=== PATIENT | female | born 1970 | race Caucasian/White ===

== ENCOUNTER 2016-08-22 03:18 | Emergency (ER) | payer OTHER ==
[2016-08-22 03:25] VITALS: TEMP 98
--- NOTE | 2016-08-22 04:15 | ED ---
Fall HPI - General Source: patient, RN notes reviewed Mode of arrival: EMS <Radha Yeh - Last Filed: 08/22/16 04:48> <Baldev De La Cruz - Last Filed: 08/22/16 05:46> - General Chief Complaint: Fall Stated Complaint: Fall Time Seen by Provider: 08/22/16 03:27 - History of Present Illness Initial Comments: Patient is a 46-year-old female presents emergency room for evaluation of fall injury. Patient states earlier this evening she was taking her dog out and the top of her sock on her right foot got caught against the ground and she fell forward landing on her entire right side. Patient states she has bruising and abrasion over the top of her right foot, second digit of her right foot, right knee, right hip, right side of her ribs, right hand, wrist, forearm and shoulder. Patient states that she did hit the front of her head. Patient states that she did black out and is not sure how long she was unconscious for. Patient states after the incident she felt very nauseous and did not "feel normal". Patient states she's having neck pain. Patient does admit that she has a history of chronic back pain but it's worse after the fall. Patient denies numbness or tingling in her fingers or toes. Patient states she has abrasion over the right side of forehead. Patient denies any changes in vision. Patient states she has a whistling sensation in both of her ears. Patient denies decreased hearing. Patient denies chest pain or shortness of breath. Patient denies abdominal pain. (Radha Yeh) - Related Data Home Medications Medication Instructions Recorded Confirmed SUMAtriptan SUCCINATE [Imitrex] 100 mg PO BID PRN 04/28/14 07/19/16 Temazepam [Restoril] 30 mg PO HS PRN 05/12/15 07/19/16 buPROPion HCL [Wellbutrin XL] 300 mg PO DAILY 05/12/15 07/19/16 Docusate [Colace] 100 mg PO HS 12/29/15 07/19/16 Cetirizine HCl [Zyrtec] 10 mg PO HS 05/23/16 07/19/16 Dicyclomine HCl [Bentyl] 20 mg PO QID 05/23/16 07/19/16 Gabapentin [Neurontin] 600 mg PO TID 05/23/16 07/19/16 LORazepam [Ativan] 0.5 mg PO TID PRN 05/23/16 07/19/16 Methocarbamol [Robaxin-750] 375 - 750 mg PO Q6H PRN 05/23/16 07/19/16 Omeprazole [PriLOSEC] 20 mg PO AC-BRKFST 05/23/16 07/19/16 Ondansetron Odt [Zofran ODT] 4 mg PO Q4H PRN 05/23/16 07/19/16 Promethazine [Phenergan] 25 mg PO Q6HR PRN 05/23/16 07/19/16 Acetaminophen Tab [Tylenol Tab] 1,000 mg PO Q6HR PRN 07/19/16 07/19/16 Diazepam [Valium] 5 mg PO HS PRN 07/19/16 07/19/16 Ibuprofen [Motrin] 600 mg PO Q6HR PRN 07/19/16 07/19/16 Ketorolac [Toradol] 10 mg PO DAILY PRN 07/19/16 07/19/16 metFORMIN HCL [Glucophage] 250 mg PO HS 07/19/16 07/19/16 traMADol HCl [Ultram] 50 mg PO Q6H PRN 07/19/16 07/19/16 Previous Rx's Medication Instructions Recorded Hydrocodone/Acetaminophen [[place] 1 tab PO Q8H PRN #40 tablet 05/26/16 5-325] Azithromycin [Zithromax Z-pack] 250 mg PO DIRECTED #6 tab 07/19/16 Fluticasone Nasal Page [Flonase 2 spr EA NOSTRIL DAILY PRN #1 07/19/16 Nasal Page] bottle guaiFENesin [Mucinex] 1,200 mg PO BID PRN #12 tab.er.12h 07/19/16 Allergies Allergy/AdvReac Type Severity Reaction Status Date / Time hydrocodone bitartrate Allergy Intermediate Itching Verified 08/22/16 03:26 [From Lortab] apricot Allergy Unknown Verified 08/22/16 03:26 barium sulfate Allergy Anaphylaxis Verified 08/22/16 03:26 [From Readi-Cat] codeine Allergy Anaphylaxis Verified 08/22/16 03:26 Iodinated Contrast Media - Allergy Anaphylaxis Verified 08/22/16 03:26 Oral and iodine Allergy Rash/Hives Verified 08/22/16 03:26 peach Allergy Unknown Verified 08/22/16 03:26 peanut oil Allergy Unknown Verified 08/22/16 03:26 sucralfate [From Carafate] Allergy Swelling Verified 08/22/16 03:26 Sulfa (Sulfonamide Allergy Anaphylaxis Verified 08/22/16 03:26 Antibiotics) tree nut [Nut] Allergy Unknown Verified 08/22/16 03:26 Review of Systems ROS Other: All systems not noted in ROS Statement are negative. <Radha Yeh - Last Filed: 08/22/16 04:48> ROS Other: All systems not noted in ROS Statement are negative. <Baldev De La Cruz - Last Filed: 08/22/16 05:46> ROS Statement: Those systems with pertinent positive or pertinent negative responses have been documented in the HPI. (Radha Yeh) (Baldev De La Cruz) Past Medical History Past Medical History: Asthma, Diabetes Mellitus, GERD/Reflux, Hyperlipidemia, Hypertension, Pneumonia Additional Past Medical History / Comment(s): Other HX: NIDDM, diabetic neuropathy bilateral feet, migraines, cervicla disc disease, bilateral tinnitis , arthiritis bilateral shoulders, possible fibromyalgia-pt in process of being diagnosed, gout in feet but no longer an issue, seasonal allergies, IBS, R arm fx yrs ago, R ovarian cyst, hiatal hernia, UTIs, urinary calculus, pancreatitis x 2, stomach ulcer. History of Any Multi-Drug Resistant Organisms: None Reported Date of last positivie culture/infection: 2012 MDRO Source:: stool Past Surgical History: Appendectomy, Bariatric Surgery, Cholecystectomy, Tonsillectomy Additional Past Surgical History / Comment(s): 2011 felix-en-Y, fistula repair 2012.2012 gastric bypass revision, bowel resection, lap gastrojejunostomy anastamosis revision, EGD and colonoscopy, cone bx-cervical cancer remove with cryo, L fallopian tube removed due to cyst, picc line in and out, Past Anesthesia/Blood Transfusion Reactions: Motion Sickness, Postoperative Nausea & Vomiting (PONV) Additional Past Anesthesia/Blood Transfusion Reaction / Comment(s): Pt states she has never recieved blood. Past Psychological History: Anxiety, Depression Additional Psychological History / Comment(s): Pt lives with her significant other-common law . She is normally independent. She drives. Smoking Status: Never smoker Past Alcohol Use History: None Reported Past Drug Use History: None Reported Additional Drug Use History / Comment(s): Pt has a medical marijuana card and tried using it for pain controll but it makes her nauseated so she does not use marijuana at all. - Past Family History Father Family Medical History: Cancer Additional Family Medical History / Comment(s): Father had colon and lung cancer and at age 73yrs. Mother Family Medical History: Coronary Artery Disease (CAD), Diabetes Mellitus, Hypertension Additional Family Medical History / Comment(s): Mother is alive and 73 yrs old. <RaoDaysiRadha L - Last Filed: 08/22/16 04:48> General Exam Limitations: no limitations General appearance: alert Expanded Head exam: Present: abrasion (Vetica abrasion over the right side of forehead that goes into the hairline) Eye exam: Present: normal appearance, PERRL, EOMI Pupils: Present: normal accommodation Neck exam: Present: normal inspection, tenderness (Bilateral paraspinal muscles and over the cervical vertebrae) Respiratory exam: Present: normal lung sounds bilaterally, chest wall tenderness (Tenderness of the lateral/anterior ribs on the right side of the chest). Absent: respiratory distress Cardiovascular Exam: Present: regular rate, normal rhythm, normal heart sounds GI/Abdominal exam: Present: soft, normal bowel sounds. Absent: distended, tenderness, guarding, rebound, rigid Right Shoulder Exam: Present: tenderness (anterior shoulder), ecchymosis, tenderness over AC joint Upper Arm exam: Present: normal inspection. Absent: tenderness Elbow exam: Present: normal inspection, full ROM, tenderness Forearm Wrist exam: Present: tenderness, abrasion (Abrasion over the forearm) Hand Wrist exam: Present: swelling (Fourth and fifth digits and MCP joints), ecchymosis (Fourth of fifth digit and MCP joints). Absent: normal inspection Vascular: Present: normal capillary refill (Capillary refill less than 2 seconds ), radial pulse (2+), ulnar pulse (2+) Right Hip exam: Present: tenderness (anterior lateral portion of the hip). Absent: full ROM (Pain on rotating hit from [id number]) Knee exam: Present: tenderness (Patella), swelling (Patella), ecchymosis ( Patella). Absent: normal inspection Lower Leg exam: Present: normal inspection, full ROM. Absent: tenderness Ankle exam: Present: normal inspection, full ROM. Absent: tenderness Foot/Toe exam: Present: ecchymosis (Second digit and dorsal foot). Absent: normal inspection Neurovascular tendon exam: Present: no vascular compromise. Absent: pulse deficit (2+ dorsal pedal and posterior tibial pulses), abnormal cap refill ( Capillary refill less than 2 seconds) Back exam: Present: normal inspection Neurological exam: Present: alert Psychiatric exam: Present: normal affect, normal mood Skin exam: Present: warm, dry. Absent: rash <Radha Yeh - Last Filed: 08/22/16 04:48> General appearance: alert, in no apparent distress Head exam: Present: atraumatic, normocephalic, normal inspection Eye exam: Present: normal appearance, PERRL, EOMI. Absent: scleral icterus, conjunctival injection, periorbital swelling ENT exam: Present: normal exam, mucous membranes moist Neck exam: Present: normal inspection. Absent: tenderness, meningismus, lymphadenopathy Respiratory exam: Present: normal lung sounds bilaterally. Absent: respiratory distress, wheezes, rales, rhonchi, stridor Cardiovascular Exam: Present: regular rate, normal rhythm, normal heart sounds. Absent: systolic murmur, diastolic murmur, rubs, gallop, clicks GI/Abdominal exam: Present: soft, normal bowel sounds. Absent: distended, tenderness, guarding, rebound, rigid Extremities exam: Present: normal inspection, full ROM, normal capillary refill. Absent: tenderness, pedal edema, joint swelling, calf tenderness Back exam: Present: normal inspection Neurological exam: Present: alert, oriented X3, CN II-XII intact Psychiatric exam: Present: normal affect, normal mood Skin exam: Present: warm, dry, intact, normal color. Absent: rash <Baldev De La Cruz - Last Filed: 08/22/16 05:46> - General Exam Comments Initial Comments: Laying in exam room, no acute distress. (Radha Yeh) Course <Radha Yeh - Last Filed: 08/22/16 04:48> <Baldev De La Cruz - Last Filed: 08/22/16 05:46> Vital Signs 08/22/16 08/22/16 03:22 05:44 Temperature 98.0 F Pulse Rate 93 74 Respiratory 18 14 Rate Blood Pressure 106/60 108/52 O2 Sat by Pulse 97 97 Oximetry (Radha Yeh) (Baldev De La Cruz) - Reevaluation(s) Reevaluation #1: 08/22/16 05:46 Patient's pain is controlled (Baldev De La Cruz) Medical Decision Making <Radha Yeh - Last Filed: 08/22/16 04:48> - Radiology Data Radiology results: report reviewed (CT brain and C-spine, and multiple x-rays are negative for acute disease), image reviewed <Baldev De La Cruz - Last Filed: 08/22/16 05:46> - Medical Decision Making 46-year-old ER status post fall, patient has multiple contusions, no injuries. Patient pain is controlled and okay for discharge home (Baldev De La rCuz) Disposition <Radha Yeh - Last Filed: 08/22/16 04:48> <Baldev De La Cruz - Last Filed: 08/22/16 05:46> Clinical Impression: Fall, Contusion, multiple sites Disposition: HOME SELF-CARE Condition: Good Instructions: Contusion in Adults (ED) Additional Instructions: Tale home medications as needed for pain. Ice on and off for 10-15 minutes at a time for the next 24-48 hours. Please follow up with primary care provider in 24-48 hours for reevaluation. If any new symptom arises or symptoms worsen, return to ER as soon as possible. Referrals: Macy Knight MD [Primary Care Provider] - 1-2 days
--- NOTE | 2016-08-22 04:38 | CT ---
EXAMINATION TYPE: CT brain cspine wo con DATE OF EXAM: 08/22/2016 4:16 AM COMPARISON: NONE HISTORY: Fall CT DLP: 1488.00 mGycm Automated exposure control for dose reduction was used. COMPARISON: 05/23/2016 CT brain TECHNIQUE: CT scan of the head and cervical spine are performed without contrast. FINDINGS: Mild scalp swelling is suggested in the frontal area. No definite depressed skull fracture is noted. There is no acute intracranial hemorrhage, mass effect, or midline shift identified. The ventricles and sulci are within normal limits in size. The globes are intact and the visualized sinuses are cl ear. Cervical spine is visualized in its entirety from C1 through upper thoracic levels and demonstrates s atisfactory alignment without evidence of acute fracture or dislocation. Prevertebral soft tissue ap pears within normal limits. The C1-C2 articulation is unremarkable. Mild degenerative changes are p resent in the cervical spine with endplate spondylosis in C3 vertebra and C5, C6 and C7 vertebrae. IMPRESSION: 1. There is no acute fracture or dislocation evident in the cervical spine. 2. No acute intracranial hemorrhage, mass effect, or midline shift is seen. No significant change sin ce previous study 05/23/2016.
[2016-08-22] MEDS ORDERED: HYDROmorphone 1 MG/ML 1 ML SYRINGE IM STA (04:48)
--- NOTE | 2016-08-22 05:07 | XR ---
EXAMINATION TYPE: XR ribs RT w pa chest xray DATE OF EXAM: 08/22/2016 4:59 AM COMPARISON: Chest radiograph 05/23/2016 HISTORY: History of fall right side TECHNIQUE: Single PA view of chest and prior radiographs of right wrist were obtained. FINDINGS: Single PA view of chest revealed no active lung infiltrates or pleural effusion. Right rib radiographs revealed no definite displaced acute or active fractures. Linear lucency superi mposing the right peripheral loops in one of the radiographs is most likely artifact with skin fold r ather than pneumothorax. Surgical clips are noted in the right upper abdomen. IMPRESSION: 1. No active pulmonary infiltrates. 2. No definite evidence of acute displaced right rib fractures.
--- NOTE | 2016-08-22 05:10 | XR ---
EXAMINATION TYPE: XR shoulder complete RT DATE OF EXAM: 08/22/2016 4:59 AM CLINICAL HISTORY: History of fall to the right side TECHNIQUE: 4 views of the right shoulder are obtained. COMPARISON: None FINDINGS: There is no acute fracture/dislocation evident. The acromioclavicular and glenohumeral sara int spaces appear within normal limits. Minor right shoulder degenerative arthritic changes are prese nt. The visualized ribs are intact and unremarkable. IMPRESSION: 1. There is no acute fracture or dislocation. ICD 10 NO FRACTURE, INITIAL EVALUATION
--- NOTE | 2016-08-22 05:12 | XR ---
EXAMINATION TYPE: XR clavicle RT DATE OF EXAM: 08/22/2016 4:59 AM COMPARISON: NONE HISTORY: Fall to the right side TECHNIQUE: 3 radiographs of right clavicle were obtained. FINDINGS: No definite acute fracture or dislocation is noted in the right clavicle. Minor degenerative changes are present in the right acromioclavicular joint and glenohumeral joint. IMPRESSION: No definite acute fracture in the right clavicle.
--- NOTE | 2016-08-22 05:15 | XR ---
EXAMINATION TYPE: XR elbow complete RT DATE OF EXAM: 08/22/2016 4:59 AM CLINICAL HISTORY: Fall to the right side. TECHNIQUE: Frontal, lateral and oblique images of the right elbow are obtained. COMPARISON: None. FINDINGS: There is no acute fracture/dislocation evident of the elbow. The anterior fat pad is sligh tly prominent. The overlying soft tissue appears unremarkable. IMPRESSION: There is no acute fracture or dislocation of the elbow. ICD 10 NO FRACTURE, INITIAL EVALUATION
--- NOTE | 2016-08-22 05:17 | XR ---
EXAMINATION TYPE: XR forearm RT DATE OF EXAM: 08/22/2016 4:59 AM COMPARISON: NONE HISTORY: Fall to the right side TECHNIQUE: 2 radiographs of right forearm were obtained. FINDINGS: No definite acute fracture or dislocation is noted in the right forearm, right radius and u bit setter. There is slightly increased space in the right distal radioulnar joint probably related to posit ioning. Soft tissues appear grossly unremarkable. IMPRESSION: No definite acute fracture in the right radius and ulna.
--- NOTE | 2016-08-22 05:19 | XR ---
EXAMINATION TYPE: XR wrist complete RT DATE OF EXAM: 08/22/2016 4:59 AM CLINICAL HISTORY: pain TECHNIQUE: Frontal, lateral and oblique images of the right wrist are obtained. COMPARISON: None. FINDINGS: There is no acute fracture/dislocation evident. The joint spaces appear within normal limits. The o verlying soft tissue appears unremarkable. There is shorter right ulna with negative ulnar variation. IMPRESSION: There is no acute fracture or dislocation seen. ICD 10 NO FRACTURE, INITIAL EVALUATION
--- NOTE | 2016-08-22 05:20 | XR ---
EXAMINATION TYPE: XR hand complete RT DATE OF EXAM: 08/22/2016 4:59 AM CLINICAL HISTORY: Fall to the right TECHNIQUE: Frontal, lateral and oblique images of the right hand are obtained. COMPARISON: None. FINDINGS: There is no acute fracture/dislocation evident. The joint spaces appear within normal limi ts. The overlying soft tissue appears unremarkable. IMPRESSION: There is no acute fracture or dislocation ICD 10 NO FRACTURE, INITIAL EVALUATION
[2016-08-22 05:45] VITALS: BP 108/52; PULSE 74; RESP 14
--- NOTE | 2016-08-22 05:48 | XR ---
EXAMINATION TYPE: XR foot complete RT DATE OF EXAM: 08/22/2016 4:59 AM CLINICAL HISTORY: Fall to the right side TECHNIQUE: Frontal, lateral and oblique images of the right foot are obtained. COMPARISON: None. FINDINGS: There is no acute fracture/dislocation evident. The joint spaces appear within normal figueroa its. The overlying soft tissue appears unremarkable. Small plantar calcaneal spur is noted. IMPRESSION: There is no acute fracture or dislocation. ICD 10 NO FRACTURE, INITIAL EVALUATION
--- NOTE | 2016-08-22 05:49 | XR ---
EXAMINATION TYPE: XR Hip Complete RT DATE OF EXAM: 08/22/2016 4:59 AM CLINICAL HISTORY: pain TECHNIQUE: AP and frogleg views of the right hip are obtained. COMPARISON: None. FINDINGS: There is no acute fracture/dislocation evident. The joint space appears within normal li mits. The overlying soft tissue appears unremarkable. IMPRESSION: 1. There is no acute fracture or dislocation. If clinical symptoms persist follow-up fracture a foll ow-up in one week's time would be helpful. ICD 10 NO FRACTURE, INITIAL EVALUATION
--- NOTE | 2016-08-22 05:51 | XR ---
EXAMINATION TYPE: XR knee complete RT DATE OF EXAM: 08/22/2016 4:59 AM CLINICAL HISTORY: History of fall to the right side. TECHNIQUE: Three views of the right knee are obtained. COMPARISON: None. FINDINGS: There is no acute fracture/dislocation. The tri-compartment joint spaces appear within no rmal limits. The overlying soft tissue appears unremarkable. IMPRESSION: There is no acute fracture or dislocation.ICD 10 NO FRACTURE, INITIAL EVALUATION
== END 2016-08-22 06:15 | disposition home or self-care (01) ==
LOC: EC 03:18
DX: S90.811A Abrasion, right foot, initial encounter (principal); S80.211A Abrasion, right knee, initial encounter; S60.414A Abrasion of right ring finger, initial encounter; S60.416A Abrasion of right little finger, initial encounter; S50.811A Abrasion of right forearm, initial encounter; S00.81XA Abrasion of other part of head, initial encounter; R07.89 Other chest pain; M25.551 Pain in right hip; S90.31XA Contusion of right foot, initial encounter; S80.01XA Contusion of right knee, initial encounter; S60.041A Contusion of right ring finger without damage to nail, initial encounter; S60.051A Contusion of right little finger without damage to nail, initial encounter; S40.011A Contusion of right shoulder, initial encounter; K21.9 Gastro-esophageal reflux disease without esophagitis; E11.40 Type 2 diabetes mellitus with diabetic neuropathy, unspecified; F32.9 Major depressive disorder, single episode, unspecified; F41.9 Anxiety disorder, unspecified; Z88.2 Allergy status to sulfonamides; Z88.5 Allergy status to narcotic agent; Z88.8 Allergy status to other drugs, medicaments and biological substances; Z79.84 Long term (current) use of oral hypoglycemic drugs; Z91.041 Radiographic dye allergy status; Z91.018 Allergy to other foods; Z79.899 Other long term (current) drug therapy; W01.0XXA Fall on same level from slipping, tripping and stumbling without subsequent striking against object, initial encounter
CPT/HCPCS: 99284; 96372; 71101; 73502; 73000; 73030; 73080; 73090; 73110; 73130; 73562; 73630; 72125; 70450; J1170

== ENCOUNTER → 2016-09-09 | Outpatient (CLI) | payer OTHER ==
--- NOTE | 2016-09-10 08:56 | MR ---
EXAMINATION TYPE: MR cervical spine wo con DATE OF EXAM: 09/09/2016 2:38 PM COMPARISON: NONE HISTORY: Back & neck pain, BUE radic, for several years TECHNIQUE: Multiplanar, multisequence images of the cervical spine were acquired. C2-C3: No evidence for degenerative disc disease. No disc bulge/herniation or protrusion. No Canal stenosis. Foramina are patent bilaterally. C3-C4: Very tiny central disc protrusion may be present with mild anterior thecal sac compression. No cord contact is evident. No spinal canal stenosis or neural foraminal stenosis is present C4-C5: No evidence for degenerative disc disease. No disc bulge/herniation or protrusion. No Canal stenosis. Foramina are patent bilaterally. C5-C6: Mild right paracentral disc bulge is present with mild anterior thecal sac compression. This i s similar appearance to comparison of May 2016. No cord contact or spinal canal stenosis is prese nt. Mild right foraminal narrowing may be present. C6-C7: No evidence for degenerative disc disease. No disc bulge/herniation or protrusion. No Canal stenosis. Foramina are patent bilaterally. C7-T1: No evidence for degenerative disc disease. No disc bulge/herniation or protrusion. No Canal stenosis. Foramina are patent bilaterally. Cervical segments are intact. There is normal alignment. Cervical spinal cord is of normal signal. Craniovertebral junction relationships are within normal limits. Diffuse disc desiccation is presen t throughout the cervical spine. IMPRESSION: 1. Mild right paracentral disc bulging C5-C6 similar to prior study. No spinal canal stenosis is pres ent. Mild right foraminal narrowing at C5-6 may be present.
== END | disposition home or self-care (01) ==
LOC: RADMRIMAIN 14:11
PROVIDERS: ATTEND Orthopaedic Surgery Orthopaedic Surgery of the Spine
DX: M50.222 Other cervical disc displacement at C5-C6 level (principal)
CPT/HCPCS: 72141

== ENCOUNTER 2016-09-19 21:29 | Emergency (ER) | payer OTHER ==
[2016-09-19 21:37] VITALS: RESP 18
[2016-09-19] MEDS ORDERED: KETOROLAC 60 MG/2 ML VIAL IVP STA (22:16)
[2016-09-19] MEDS ORDERED: PROMETHAZINE INJ 25 MG/ML 1 ML VIAL IVPB STA (22:16)
[2016-09-19] MEDS ORDERED: diphenhydrAMINE 50 MG/ML 1 ML VIAL IVP STA (22:16)
[2016-09-19] MEDS ORDERED: SODIUM CHLORIDE 0.9% 1,000 ML IV ONE (22:16)
--- NOTE | 2016-09-19 22:19 | ED ---
General Adult HPI - General Chief complaint: Headache Stated complaint: Severe Migraine Time Seen by Provider: 09/19/16 21:35 Source: patient, RN notes reviewed Mode of arrival: ambulatory Limitations: no limitations - History of Present Illness Initial comments: This is a 46-year-old female who presents to the emergency department stating that she has another one of her migraines. Patient states migraine headache started on Sunday morning. Patient states she has chronic pain in her neck for which she is seeing a surgeon. Patient states she has continued to have that neck pain at this time. Patient states she just had an MRI in her neck and a CT on her head and neck. Patient states the headache is typical of all her other migraine headaches it's in the front and a little bit in the occipital region. Patient states she is sensitive to light and is nauseated. Patient denies any recent fever or chills patient denies any numbness weakness patient denies any palpitations difficulty breathing or shortness of breath per patient denies abdominal pain patient denies nausea vomiting or diarrhea. - Related Data Home Medications Medication Instructions Recorded Confirmed SUMAtriptan SUCCINATE [Imitrex] 100 mg PO BID PRN 04/28/14 09/19/16 Temazepam [Restoril] 30 mg PO HS PRN 05/12/15 09/19/16 buPROPion HCL [Wellbutrin XL] 300 mg PO DAILY 05/12/15 09/19/16 Docusate [Colace] 100 mg PO HS 12/29/15 09/19/16 Cetirizine HCl [Zyrtec] 10 mg PO HS 05/23/16 09/19/16 Dicyclomine HCl [Bentyl] 20 mg PO HS 05/23/16 09/19/16 Gabapentin [Neurontin] 600 mg PO TID 05/23/16 09/19/16 LORazepam [Ativan] 0.5 mg PO TID PRN 05/23/16 09/19/16 Methocarbamol [Robaxin-750] 750 mg PO TID 05/23/16 09/19/16 Omeprazole [PriLOSEC] 20 mg PO AC-BRKFST 05/23/16 09/19/16 Ondansetron Odt [Zofran ODT] 4 mg PO Q4H PRN 05/23/16 09/19/16 Diazepam [Valium] 5 mg PO HS PRN 07/19/16 09/19/16 Ibuprofen [Motrin] 600 mg PO Q6HR PRN 07/19/16 09/19/16 Ketorolac [Toradol] 10 mg PO DAILY PRN 07/19/16 09/19/16 metFORMIN HCL [Glucophage] 250 mg PO HS 07/19/16 09/19/16 traMADol HCl [Ultram] 50 mg PO BID PRN 07/19/16 09/19/16 Furosemide [Lasix] 20 mg PO BID 09/19/16 09/19/16 diphenhydrAMINE HCL [Benadryl] 25 mg PO BID PRN 09/19/16 09/19/16 Previous Rx's Medication Instructions Recorded Hydrocodone/Acetaminophen [[place] 1 tab PO Q8H PRN #40 tablet 05/26/16 5-325] Allergies Allergy/AdvReac Type Severity Reaction Status Date / Time apricot Allergy Unknown Verified 09/19/16 22:32 barium sulfate Allergy Anaphylaxis Verified 09/19/16 21:37 [From Readi-Cat] codeine Allergy Anaphylaxis Verified 09/19/16 22:32 Iodinated Contrast Media - Allergy Anaphylaxis Verified 09/19/16 22:32 Oral and iodine Allergy Rash/Hives Verified 09/19/16 21:37 peach Allergy Unknown Verified 09/19/16 21:37 peanut oil Allergy Unknown Verified 09/19/16 21:37 shellfish derived [Shellfish] Allergy Unknown Verified 09/19/16 22:32 sucralfate [From Carafate] Allergy Swelling Verified 09/19/16 22:32 Sulfa (Sulfonamide Allergy Anaphylaxis Verified 09/19/16 21:37 Antibiotics) tree nut [Nut] Allergy Unknown Verified 09/19/16 22:32 Review of Systems ROS Statement: Those systems with pertinent positive or pertinent negative responses have been documented in the HPI. ROS Other: All systems not noted in ROS Statement are negative. Past Medical History Past Medical History: Asthma, Diabetes Mellitus, GERD/Reflux, Hyperlipidemia, Hypertension, Pneumonia Additional Past Medical History / Comment(s): NIDDM, diabetic neuropathy bilateral feet, migraines, cervicla disc disease, bilateral tinnitis, arthiritis bilateral shoulders, possible fibromyalgia-pt in process of being diagnosed, gout in feet but no longer an issue, seasonal allergies, IBS, R arm fx yrs ago, R ovarian cyst, hiatal hernia, UTIs, urinary calculus, pancreatitis x 2, stomach ulcer. History of Any Multi-Drug Resistant Organisms: C-DIFF Date of last positivie culture/infection: 2012 MDRO Source:: stool Past Surgical History: Appendectomy, Bariatric Surgery, Cholecystectomy, Tonsillectomy Additional Past Surgical History / Comment(s): 2010 felix-en-Y, fistula repair 2012.2012 gastric bypass revision, bowel resection, lap gastrojejunostomy anastamosis revision, EGD and colonoscopy, cone bx-cervical cancer remove with cryo, L fallopian tube removed due to cyst, picc line in and out, Past Anesthesia/Blood Transfusion Reactions: Motion Sickness, Postoperative Nausea & Vomiting (PONV) Additional Past Anesthesia/Blood Transfusion Reaction / Comment(s): Pt states she has never recieved blood. Past Psychological History: Anxiety, Depression Additional Psychological History / Comment(s): Pt lives with her significant other-common law . She is normally independent. She drives. Smoking Status: Never smoker Past Alcohol Use History: None Reported Past Drug Use History: Marijuana Additional Drug Use History / Comment(s): Pt has a medical marijuana card and tried using it for pain controll but it makes her nauseated so she does not use marijuana at all. - Past Family History Father Family Medical History: Cancer Additional Family Medical History / Comment(s): Father had colon and lung cancer and at age 73yrs. Mother Family Medical History: Coronary Artery Disease (CAD), Diabetes Mellitus, Hypertension Additional Family Medical History / Comment(s): Mother is alive and 73 yrs old. General Exam - General Exam Comments Initial Comments: GENERAL: Patient is well-developed and well-nourished. Patient is nontoxic and well- hydrated and is in mild distress. ENT: Neck is soft and supple. No significant lymphadenopathy is noted. Oropharynx is clear. Moist mucous membranes. Neck has full range of motion without eliciting any pain. There is no thyroid enlargement and no masses were felt. EYES: The sclera were anicteric and conjunctiva were pink and moist. Extraocular movements were intact and pupils were equal round and reactive to light. Eyelids were unremarkable. Patient was wearing a mask however when I remove the mask and looked at her eyes with the ophthalmoscope the bright light did not seem to bother her in any way she was able to keep her eyes wide open. PULMONARY: Unlabored respirations. Good breath sounds bilaterally. No audible rales rhonchi or wheezing was noted. CARDIOVASCULAR: There is a regular rate and rhythm without any murmurs gallops or rubs. ABDOMEN: Soft and nontender with normal bowel sounds. No palpable organomegaly was noted. There is no palpable pulsatile mass. SKIN: Skin is clear with no lesions or rashes and otherwise unremarkable. NEUROLOGIC: Patient is alert and oriented x3. Cranial nerves II through XII are grossly intact. Motor and sensory are also intact. Normal speech, volume and content. Symmetrical smile. MUSCULOSKELETAL: Normal extremities with adequate strength and full range of motion. No lower extremity swelling or edema. No calf tenderness. LYMPHATICS: No significant lymphadenopathy is noted PSYCHIATRIC: Normal psychiatric evaluation. Limitations: no limitations Course Vital Signs 09/19/16 21:34 Temperature 97.8 F Pulse Rate 111 H Respiratory 18 Rate Blood Pressure 103/61 O2 Sat by Pulse 99 Oximetry Medical Decision Making - Medical Decision Making I went back in the room to reevaluate the patient she was resting comfortably. She stated she still had some stiffness in her trapezius muscle psychiatric some Valium and sent her home. Patient states she'll follow-up with her physician. Disposition Clinical Impression: Migraine Disposition: HOME SELF-CARE Instructions: Migraine Headache (ED) Referrals: Macy Knight MD [Primary Care Provider] - 1-2 days Time of Disposition: 00:01
[2016-09-19] MEDS ORDERED: DIAZEPAM 5 MG/ML 2 ML SYRINGE IM ONE (23:57)
[2016-09-20 00:21] VITALS: BP 105/71; PULSE 79; TEMP 98.3
== END 2016-09-20 00:14 | disposition home or self-care (01) ==
LOC: EC 21:29
DX: G43.909 Migraine, unspecified, not intractable, without status migrainosus (principal); E11.40 Type 2 diabetes mellitus with diabetic neuropathy, unspecified; K21.9 Gastro-esophageal reflux disease without esophagitis; I10 Essential (primary) hypertension; E78.5 Hyperlipidemia, unspecified; J30.2 Other seasonal allergic rhinitis; K58.9 Irritable bowel syndrome, unspecified; F32.9 Major depressive disorder, single episode, unspecified; F41.9 Anxiety disorder, unspecified; Z79.84 Long term (current) use of oral hypoglycemic drugs; Z79.899 Other long term (current) drug therapy; Z88.2 Allergy status to sulfonamides; Z88.5 Allergy status to narcotic agent; Z91.041 Radiographic dye allergy status; Z88.8 Allergy status to other drugs, medicaments and biological substances
CPT/HCPCS: 99283; 96374; 96375 ×2; 96361; 96372; J1200; J2550; J3360; J1885

== ENCOUNTER 2017-01-01 19:02 | Inpatient (IN) | payer OTHER ==
[2017-01-01 19:09] LABS: Glucose,Whole Blood 168 mg/dL (75-99)
[2017-01-01] MEDS ORDERED: SODIUM CHLORIDE 0.9% 500 ML IV ONE (19:21)
--- NOTE | 2017-01-01 19:25 | ED ---
General Adult HPI - General Chief complaint: Recheck/Abnormal Lab/Rx Stated complaint: weakness Time Seen by Provider: 01/01/17 19:10 Source: patient, EMS, RN notes reviewed Mode of arrival: EMS - History of Present Illness Initial comments: This is a 46-year-old female presents emergency department with past medical history significant for diabetes and had recent cervical surgery 11 days ago. Patient comes in today because she was shaking and felt warm. Patient states her right side was taken more than her left. Patient states it lasts for a few minutes and went away. Patient states she was vomiting today and did have some diarrhea as well per patient denies any abdominal pain. Patient denies any difficulty breathing shortness breath or chest pain. Patient denies any headache patient denies any new neck pain. Patient denies any numbness or weakness. Patient denies any abdominal pain. Patient denies any dysuria hematuria urinary frequency. - Related Data Home Medications Medication Instructions Recorded Confirmed SUMAtriptan SUCCINATE [Imitrex] 100 mg PO BID PRN 04/28/14 01/01/17 Temazepam [Restoril] 30 mg PO HS PRN 05/12/15 01/01/17 buPROPion HCL [Wellbutrin XL] 300 mg PO DAILY 05/12/15 01/01/17 Docusate [Colace] 100 mg PO HS 12/29/15 01/01/17 Cetirizine HCl [Zyrtec] 10 mg PO DAILY 05/23/16 01/01/17 Methocarbamol [Robaxin-750] 750 mg PO TID PRN 05/23/16 01/01/17 Omeprazole [PriLOSEC] 20 mg PO DAILY 05/23/16 01/01/17 Furosemide [Lasix] 20 mg PO BID 09/19/16 01/01/17 Aspirin [Adult Low Dose Aspirin EC] 81 mg PO DAILY 01/01/17 01/01/17 Beclomethasone Dipropionate [Qvar 2 puff INHALATION RT-BID 01/01/17 01/01/17 80 mcg] Escitalopram [Lexapro] 10 mg PO DAILY 01/01/17 01/01/17 Famotidine [Pepcid AC] 10 mg PO DAILY PRN 01/01/17 01/01/17 Gabapentin [Neurontin] 100 mg PO TID 01/01/17 01/01/17 LORazepam [Ativan] 0.5 mg PO DAILY PRN 01/01/17 01/01/17 Ondansetron [Zofran ODT] 8 mg PO Q12H PRN 01/01/17 01/01/17 Propranolol HCl [Inderal] 60 mg PO HS 01/01/17 01/01/17 Simvastatin [Zocor] 40 mg PO HS 01/01/17 01/01/17 Tamsulosin HCl [Flomax] 0.4 mg PO DAILY 01/01/17 01/01/17 Zolpidem [Ambien] 10 mg PO HS PRN 01/01/17 01/01/17 diphenhydrAMINE [Benadryl] 50 mg PO DAILY PRN 01/01/17 01/01/17 hydrOXYzine HCL [Atarax] 50 mg PO QID PRN 01/01/17 01/01/17 oxyCODONE-APAP 10-325MG [Percocet 2 tab PO Q4H PRN 01/01/17 01/01/17 10-325 mg] Allergies Allergy/AdvReac Type Severity Reaction Status Date / Time acetaminophen [From Lortab] Allergy Swelling Verified 01/01/17 19:40 apricot Allergy Unknown Verified 09/19/16 22:32 barium sulfate Allergy Anaphylaxis Verified 09/19/16 21:37 [From Readi-Cat] codeine Allergy Anaphylaxis Verified 01/01/17 19:40 hydrocodone [From Lortab] Allergy Swelling Verified 01/01/17 19:40 Iodinated Contrast Media - Allergy Anaphylaxis Verified 01/01/17 19:40 Oral and iodine Allergy Rash/Hives Verified 01/01/17 19:40 peach Allergy Unknown Verified 09/19/16 21:37 peanut oil Allergy Unknown Verified 09/19/16 21:37 shellfish derived [Shellfish] Allergy Unknown Verified 09/19/16 22:32 sucralfate [From Carafate] Allergy Swelling Verified 09/19/16 22:32 Sulfa (Sulfonamide Allergy Anaphylaxis Verified 01/01/17 19:40 Antibiotics) tree nut [Nut] Allergy Unknown Verified 09/19/16 22:32 Review of Systems ROS Statement: Those systems with pertinent positive or pertinent negative responses have been documented in the HPI. ROS Other: All systems not noted in ROS Statement are negative. Past Medical History Past Medical History: Asthma, Diabetes Mellitus, GERD/Reflux, Hyperlipidemia, Hypertension, Pneumonia Additional Past Medical History / Comment(s): NIDDM, diabetic neuropathy bilateral feet, migraines, cervicla disc disease, bilateral tinnitis, arthiritis bilateral shoulders, possible fibromyalgia-pt in process of being diagnosed, gout in feet but no longer an issue, seasonal allergies, IBS, R arm fx yrs ago, R ovarian cyst, hiatal hernia, UTIs, urinary calculus, pancreatitis x 2, stomach ulcer. History of Any Multi-Drug Resistant Organisms: C-DIFF Date of last positivie culture/infection: 2012 MDRO Source:: stool Past Surgical History: Appendectomy, Bariatric Surgery, Cholecystectomy, Tonsillectomy Additional Past Surgical History / Comment(s): 2010 felix-en-Y, fistula repair 2011.2011 gastric bypass revision, bowel resection, lap gastrojejunostomy anastamosis revision, EGD and colonoscopy, cone bx-cervical cancer remove with cryo, L fallopian tube removed due to cyst, picc line in and out, Past Anesthesia/Blood Transfusion Reactions: Motion Sickness, Postoperative Nausea & Vomiting (PONV) Additional Past Anesthesia/Blood Transfusion Reaction / Comment(s): Pt states she has never recieved blood. Past Psychological History: Anxiety, Depression Additional Psychological History / Comment(s): Pt lives with her significant other-common law . She is normally independent. She drives. Smoking Status: Never smoker Past Alcohol Use History: None Reported Past Drug Use History: Marijuana Additional Drug Use History / Comment(s): Pt has a medical marijuana card and tried using it for pain controll but it makes her nauseated so she does not use marijuana at all. - Past Family History Father Family Medical History: Cancer Additional Family Medical History / Comment(s): Father had colon and lung cancer and at age 73yrs. Mother Family Medical History: Coronary Artery Disease (CAD), Diabetes Mellitus, Hypertension Additional Family Medical History / Comment(s): Mother is alive and 73 yrs old. General Exam - General Exam Comments Initial Comments: GENERAL: Patient is well-developed and well-nourished. Patient is nontoxic and well- hydrated and is in mild distress. ENT: Neck is soft and supple. No significant lymphadenopathy is noted. Oropharynx is clear. Moist mucous membranes. Neck has full range of motion without eliciting any pain. EYES: The sclera were anicteric and conjunctiva were pink and moist. Extraocular movements were intact and pupils were equal round and reactive to light. Eyelids were unremarkable. PULMONARY: Unlabored respirations. Good breath sounds bilaterally. No audible rales rhonchi or wheezing was noted. CARDIOVASCULAR: There is a regular rate and rhythm without any murmurs gallops or rubs. ABDOMEN: Soft and nontender with normal bowel sounds. No palpable organomegaly was noted. There is no palpable pulsatile mass. SKIN: Skin is clear with no lesions or rashes and otherwise unremarkable. NEUROLOGIC: Patient is alert and oriented x3. Cranial nerves II through XII are grossly intact. Motor and sensory are also intact. Normal speech, volume and content. Symmetrical smile. MUSCULOSKELETAL: Normal extremities with adequate strength and full range of motion. LYMPHATICS: No significant lymphadenopathy is noted PSYCHIATRIC: Normal psychiatric evaluation. Course Vital Signs 01/01/17 01/01/17 19:07 20:29 Temperature 98.8 F 98.8 F Pulse Rate 108 H 90 Respiratory 16 16 Rate Blood Pressure 108/76 112/70 O2 Sat by Pulse 98 98 Oximetry Medical Decision Making - Medical Decision Making EKG shows sinus tachycardia at 102 bpm SC interval 158 QRSs 84 QT interval 354 QTC is 479. Patient's EKG shows no ST segment elevation or depression or T wave abnormalities are noted. Patient's chest x-ray shows no acute abnormality. Patient has vomited in the emergency department. Patient denies any abdominal pain. Patient currently has no symptoms whatsoever. - Lab Data Result diagrams: 01/01/17 19:45 01/01/17 19:45 Lab Results 01/01/17 01/01/17 01/01/17 Range/Units 19:08 19:45 19:45 WBC 11.7 H (3.8-10.6) k/uL RBC 4.14 (3.80-5.40) m/uL Hgb 10.8 L (11.4-16.0) gm/dL Hct 33.3 L (34.0-46.0) % MCV 80.5 (80.0-100.0) fL MCH 26.0 (25.0-35.0) pg MCHC 32.3 (31.0-37.0) g/dL RDW 14.4 (11.5-15.5) % Plt Count 317 (150-450) k/uL Neutrophils % 67 % Lymphocytes % 24 % Monocytes % 5 % Eosinophils % 2 % Basophils % 0 % Neutrophils # 7.8 H (1.3-7.7) k/uL Lymphocytes # 2.8 (1.0-4.8) k/uL Monocytes # 0.6 (0-1.0) k/uL Eosinophils # 0.2 (0-0.7) k/uL Basophils # 0.1 (0-0.2) k/uL Hypochromasia Slight Sodium 136 L (137-145) mmol/L Potassium 4.0 (3.5-5.1) mmol/L Chloride 102 (98-107) mmol/L Carbon Dioxide 22 (22-30) mmol/L Anion Gap 12 mmol/L BUN 15 (7-17) mg/dL Creatinine 0.90 (0.52-1.04) mg/dL Est GFR (MDRD) Af Amer >60 (>60 ml/min/1.73 sqM) Est GFR (MDRD) Non-Af >60 (>60 ml/min/1.73 sqM) Glucose 146 H (74-99) mg/dL POC Glucose (mg/dL) 168 H (75-99) mg/dL POC Glu [employer] ID [place] Plasma Lactic Acid [place] (0.7-2.0) mmol/L Calcium 8.9 (8.4-10.2) mg/dL Total Bilirubin 0.5 (0.2-1.3) mg/dL AST 45 H (14-36) U/L ALT 62 H (9-52) U/L Alkaline Phosphatase 97 (38-126) U/L Total Protein 7.5 (6.3-8.2) g/dL Albumin 4.2 (3.5-5.0) g/dL Urine Color Urine Appearance (Clear) Urine pH (5.0-8.0) Ur Specific [place] (1.001-1.035) Urine Protein (Negative) Urine Glucose (UA) (Negative) Urine Ketones (Negative) Urine Blood (Negative) Urine Nitrite (Negative) Urine Bilirubin (Negative) Urine Urobilinogen (<2.0) mg/dL Ur Leukocyte Esterase (Negative) Influenza Type A RNA (Not Detectd) Influenza Type B (PCR) (Not Detectd) 01/01/17 01/01/17 01/01/17 Range/Units 19:45 19:45 20:05 WBC (3.8-10.6) k/uL RBC (3.80-5.40) m/uL Hgb (11.4-16.0) gm/dL Hct (34.0-46.0) % MCV (80.0-100.0) fL MCH (25.0-35.0) pg MCHC (31.0-37.0) g/dL RDW (11.5-15.5) % Plt Count (150-450) k/uL Neutrophils % % Lymphocytes % % Monocytes % % Eosinophils % % Basophils % % Neutrophils # (1.3-7.7) k/uL Lymphocytes # (1.0-4.8) k/uL Monocytes # (0-1.0) k/uL Eosinophils # (0-0.7) k/uL Basophils # (0-0.2) k/uL Hypochromasia Sodium (137-145) mmol/L Potassium (3.5-5.1) mmol/L Chloride (98-107) mmol/L Carbon Dioxide (22-30) mmol/L Anion Gap mmol/L BUN (7-17) mg/dL Creatinine (0.52-1.04) mg/dL Est GFR (MDRD) Af Amer (>60 ml/min/1.73 sqM) Est GFR (MDRD) Non-Af (>60 ml/min/1.73 sqM) Glucose (74-99) mg/dL POC Glucose (mg/dL) (75-99) mg/dL POC Glu [employer] ID Plasma Lactic Acid [place] 2.2 H* (0.7-2.0) mmol/L Calcium (8.4-10.2) mg/dL Total Bilirubin (0.2-1.3) mg/dL AST (14-36) U/L ALT (9-52) U/L Alkaline Phosphatase (38-126) U/L Total Protein (6.3-8.2) g/dL Albumin (3.5-5.0) g/dL Urine Color Yellow Urine Appearance Clear (Clear) Urine pH 5.0 (5.0-8.0) Ur Specific [place] 1.018 (1.001-1.035) Urine Protein Negative (Negative) Urine Glucose (UA) Negative (Negative) Urine Ketones Negative (Negative) Urine Blood Negative (Negative) Urine Nitrite Negative (Negative) Urine Bilirubin Negative (Negative) Urine Urobilinogen <2.0 (<2.0) mg/dL Ur Leukocyte Esterase Negative (Negative) Influenza Type A RNA Not Detected (Not Detectd) Influenza Type B (PCR) Not Detected (Not Detectd) Disposition Clinical Impression: Febrile illness, Acute vomiting Disposition: ADMITTED IP TO THIS HOSP Time of Disposition: 20:57
[2017-01-01] MEDS ORDERED: IBUPROFEN 600 MG TAB PO STA (19:31)
[2017-01-01] MEDS ORDERED: ACETAMINOPHEN TAB 500 MG TAB PO STA (19:31)
[2017-01-01 19:52] LABS: Basophils # (A) 0.1 k/uL (0-0.2); Basophils % (A) 0 %; CHCM 32.4; Eosinophils # (A) 0.2 k/uL (0-0.7); Eosinophils % (A) 2 %; HCT 33.3 % (34.0-46.0); HGB 10.8 gm/dL (11.4-16.0); Hypochromasia Slight; Luc # (Auto) 0.22; Luc % (Auto) 2; Lymphocytes # (A) 2.8 k/uL (1.0-4.8); Lymphocytes % (A) 24 %; MCHC 32.3 g/dL (31.0-37.0); MCV 80.5 fL (80.0-100.0); Mean Platelet Volume 6.4; Monocytes # (A) 0.6 k/uL (0-1.0); Monocytes % (A) 5 %; Neutrophils # (A) 7.8 k/uL (1.3-7.7); Neutrophils % (A) 67 %; RBC 4.14 m/uL (3.80-5.40); RDW 14.4 % (11.5-15.5); WBC 11.7 k/uL (3.8-10.6); WBC (Perox) 11.17
[2017-01-01 20:04] LABS: ALT 62 U/L (9-52); AST 45 U/L (14-36); Alkaline Phosphatase 97 U/L (38-126); Anion Gap 12 mmol/L; Blood Urea Nitrogen 15 mg/dL (7-17); Calcium 8.9 mg/dL (8.4-10.2); Carbon Dioxide 22 mmol/L (22-30); Chloride 102 mmol/L (98-107); Glucose 146 mg/dL (74-99); Non-African American GFR(MDRD) >60 (>60 ml/min/1.73 sqM); Sodium 136 mmol/L (137-145); Total Bilirubin 0.5 mg/dL (0.2-1.3); Total Protein 7.5 g/dL (6.3-8.2)
--- NOTE | 2017-01-01 20:14 | XR ---
EXAMINATION TYPE: XR chest 2V DATE OF EXAM: 01/01/2017 8:00 PM COMPARISON: 08/22/2016 HISTORY: Shortness of breath, weakness, and confusion. TECHNIQUE: Frontal and lateral views of the chest are obtained. FINDINGS: There is no focal air space opacity, pleural effusion, or pneumothorax seen. There are lo w lung volumes accentuating the pulmonary vasculature. The cardiac silhouette size is within normal l imits. The osseous structures are intact. IMPRESSION: Low lung volumes. No acute cardiopulmonary process.
[2017-01-01] MEDS ORDERED: SODIUM CHLORIDE 0.9% 1,000 ML IV ONE ×2 (20:37→21:03)
[2017-01-01] MEDS ORDERED: ONDANSETRON 4 MG/2 ML VIAL IVP STA (20:40)
[2017-01-01 20:42] LABS: Appearance,Urine Clear (Clear); Bilirubin,Urine Negative (Negative); Glucose,Urine (UA) Negative (Negative); Ketones,Urine Negative (Negative); Leukocyte Esterase,Urine Negative (Negative); Nitrite,Urine Negative (Negative); Protein,Urine Negative (Negative); Specific Gravity,Urine 1.018 (1.001-1.035); UA Billing (MACRO vs. MICRO) CHEM; Urobilinogen,Urine <2.0 mg/dL (<2.0)
[2017-01-01] MEDS ORDERED: FAMOTIDINE 20 MG TAB PO PRN (23:13)
[2017-01-01] MEDS ORDERED: TEMAZEPAM 30 MG CAP PO PRN (23:13)
[2017-01-01] MEDS ORDERED: diphenhydrAMINE 25 MG CAP PO PRN (23:13)
[2017-01-01] MEDS ORDERED: METHOCARBAMOL 750 MG TAB PO PRN (23:13)
[2017-01-01] MEDS ORDERED: SUMAtriptan SUCCINATE 50 MG TAB PO PRN (23:13)
[2017-01-01 23:20] VITALS: RESP 18
[2017-01-01] MEDS: METOCLOPRAMIDE 5 MG/ML 2 ML VIAL IVP PRN (23:41)
[2017-01-02] MEDS ORDERED: ceFAZolin 1 GM in SODIUM CHLORIDE 0.9% 100 ML IVPB SCH ×2
[2017-01-02] MEDS: GABAPENTIN 100 MG CAP PO SCH ×4 (00:06→22:12)
[2017-01-02] MEDS: ceFAZolin 1,000 MG in DEXTROSE/WATER 1 50ML.BAG IVPB SCH ×3 (02:17→17:14)
[2017-01-02] MEDS: ACETAMINOPHEN TAB 325 MG TAB PO PRN ×2 (02:42→19:52)
[2017-01-02 05:58] VITALS: BMI 27.3
[2017-01-02] MEDS: HYDROcodone/APAP 10-325MG 1 EACH TAB PO PRN (06:36)
[2017-01-02] MEDS: TAMSULOSIN 0.4 MG CAP.ER.24H PO SCH (08:50)
[2017-01-02] MEDS: buPROPion XL 300 MG TAB.ER.24H PO SCH (08:50)
[2017-01-02] MEDS: FUROSEMIDE 20 MG TAB PO SCH ×2 (08:51→22:10)
[2017-01-02] MEDS: ESCITALOPRAM 10 MG TAB PO SCH (08:51)
[2017-01-02] MEDS: LORATADINE 10 MG TAB PO SCH (08:51)
[2017-01-02] MEDS: PANTOPRAZOLE 40 MG TABLET PO SCH (08:51)
[2017-01-02] MEDS: ASPIRIN 81 MG CHEW PO SCH (08:51)
[2017-01-02] MEDS: METOCLOPRAMIDE 5 MG/ML 2 ML VIAL IVP PRN (09:03)
[2017-01-02] MEDS: BECLOMETHASONE DIP 80 MCG/PUFF INHALER INHALATION SCH ×2 (09:41→20:59)
[2017-01-02 11:26] LABS: Glucose,Whole Blood 100 mg/dL (75-99)
--- NOTE | 2017-01-02 11:53 | P.HPIM ---
History of Present Illness H&P Date: 01/02/17 Chief Complaint: Generalized weakness This is a 46-year-old female with past medical history noted below significant for recent cervical spine fusion via anterior approach at [facility] approximately a week ago who presented to the hospital not feeling well. Patient said that her symptoms started the day before her presentation with generalized weakness and muscle aches. She described the muscle aches worse in her lower extremities and she was barely able to walk. She also describes epigastric discomfort along with nausea and poor appetite. She said that she vomited once prior to her presentation. She is having normal bowel movement otherwise. She was evaluated in the emergency room and was found to have positive SIRS criteria with T-max of 101.8. No obvious source of infection identified. Patient was started on IV fluid hydration and was admitted to the hospital for further evaluation. Review of Systems Review of system: 14 points review of systems were obtained and were negative except to what were mentioned in the HPI. Past Medical History Past Medical History: Asthma, Diabetes Mellitus, GERD/Reflux, Hyperlipidemia, Hypertension, Pneumonia Additional Past Medical History / Comment(s): NIDDM, diabetic neuropathy bilateral feet, migraines, cervicla disc disease, bilateral tinnitis, arthiritis bilateral shoulders, possible fibromyalgia-pt in process of being diagnosed, gout in feet but no longer an issue, seasonal allergies, IBS, R arm fx yrs ago, R ovarian cyst, hiatal hernia, UTIs, urinary calculus, pancreatitis x 2, stomach ulcer. History of Any Multi-Drug Resistant Organisms: C-DIFF Date of last positivie culture/infection: 2012 MDRO Source:: stool Past Surgical History: Appendectomy, Bariatric Surgery, Cholecystectomy, Tonsillectomy Additional Past Surgical History / Comment(s): 2011 felix-en-Y, fistula repair 2012.2012 gastric bypass revision, bowel resection, lap gastrojejunostomy anastamosis revision, EGD and colonoscopy, cone bx-cervical cancer remove with cryo, L fallopian tube removed due to cyst, picc line in and out, Past Anesthesia/Blood Transfusion Reactions: Motion Sickness, Postoperative Nausea & Vomiting (PONV) Additional Past Anesthesia/Blood Transfusion Reaction / Comment(s): Pt states she has never recieved blood. Past Psychological History: Anxiety, Depression Additional Psychological History / Comment(s): Pt lives with her significant other-common law . She is normally independent. She drives. Smoking Status: Never smoker Past Alcohol Use History: None Reported Past Drug Use History: Marijuana Additional Drug Use History / Comment(s): Pt has a medical marijuana card and tried using it for pain control but it makes her nauseated so she does not use marijuana at all. - Past Family History Father Family Medical History: Cancer Additional Family Medical History / Comment(s): Father had colon and lung cancer and at age 73yrs. Mother Family Medical History: Coronary Artery Disease (CAD), Diabetes Mellitus, Hypertension Additional Family Medical History / Comment(s): Mother is alive and 73 yrs old. Medications and Allergies Home Medications Medication Instructions Recorded Confirmed Type SUMAtriptan SUCCINATE [Imitrex] 100 mg PO BID PRN 04/28/14 01/01/17 History Temazepam [Restoril] 30 mg PO HS PRN 05/12/15 01/01/17 History buPROPion HCL [Wellbutrin XL] 300 mg PO DAILY 05/12/15 01/01/17 History Docusate [Colace] 100 mg PO HS 12/29/15 01/01/17 History Cetirizine HCl [Zyrtec] 10 mg PO DAILY 05/23/16 01/01/17 History Methocarbamol [Robaxin-750] 750 mg PO TID PRN 05/23/16 01/01/17 History Omeprazole [PriLOSEC] 20 mg PO DAILY 05/23/16 01/01/17 History Furosemide [Lasix] 20 mg PO BID 09/19/16 01/01/17 History Aspirin [Adult Low Dose Aspirin EC] 81 mg PO DAILY 01/01/17 01/01/17 History Beclomethasone Dipropionate [Qvar 2 puff INHALATION RT-BID 01/01/17 01/01/17 History 80 mcg] Escitalopram [Lexapro] 10 mg PO DAILY 01/01/17 01/01/17 History Famotidine [Pepcid AC] 10 mg PO DAILY PRN 01/01/17 01/01/17 History Gabapentin [Neurontin] 100 mg PO TID 01/01/17 01/01/17 History LORazepam [Ativan] 0.5 mg PO DAILY PRN 01/01/17 01/01/17 History Ondansetron [Zofran ODT] 8 mg PO Q12H PRN 01/01/17 01/01/17 History Propranolol HCl [Inderal] 60 mg PO HS 01/01/17 01/01/17 History Simvastatin [Zocor] 40 mg PO HS 01/01/17 01/01/17 History Tamsulosin HCl [Flomax] 0.4 mg PO DAILY 01/01/17 01/01/17 History Zolpidem [Ambien] 10 mg PO HS PRN 01/01/17 01/01/17 History diphenhydrAMINE [Benadryl] 50 mg PO DAILY PRN 01/01/17 01/01/17 History hydrOXYzine HCL [Atarax] 50 mg PO QID PRN 01/01/17 01/01/17 History oxyCODONE-APAP 10-325MG [Percocet 2 tab PO Q4H PRN 01/01/17 01/01/17 History 10-325 mg] Allergies Allergy/AdvReac Type Severity Reaction Status Date / Time acetaminophen [From Lortab] Allergy Swelling Verified 01/02/17 10:12 apricot Allergy Unknown Verified 09/19/16 22:32 barium sulfate Allergy Anaphylaxis Verified 09/19/16 21:37 [From Readi-Cat] codeine Allergy Anaphylaxis Verified 01/01/17 19:40 hydrocodone [From Lortab] Allergy Swelling Verified 01/01/17 19:40 Iodinated Contrast Media - Allergy Anaphylaxis Verified 01/01/17 19:40 Oral and iodine Allergy Rash/Hives Verified 01/01/17 19:40 peach Allergy Unknown Verified 09/19/16 21:37 peanut oil Allergy Unknown Verified 09/19/16 21:37 shellfish derived [Shellfish] Allergy Unknown Verified 09/19/16 22:32 sucralfate [From Carafate] Allergy Swelling Verified 09/19/16 22:32 Sulfa (Sulfonamide Allergy Anaphylaxis Verified 01/01/17 19:40 Antibiotics) tree nut [Nut] Allergy Unknown Verified 09/19/16 22:32 oxycodone [From Percocet] AdvReac Severe Swelling Verified 01/02/17 10:13 Physical Exam Vitals: Vital Signs Temp Pulse Pulse Resp BP BP Pulse Ox 01/02/17 08:00 84 18 01/02/17 07:00 98.4 F 84 18 111/69 100 01/01/17 23:11 98.2 F 94 18 122/82 97 01/01/17 21:29 101.8 F H 01/01/17 20:29 98.8 F 90 16 112/70 98 01/01/17 19:07 98.8 F 108 H 16 108/76 98 Intake and Output 01/01/17 01/02/17 01/02/17 22:59 06:59 14:59 Intake Total 240 Balance 240 Intake: Oral 240 Other: # Voids 1 Weight 81.647 kg General: The patient is awake and alert, in no distress, and does not appear acutely ill. Eye: extra-ocular movements are intact; there is normal conjunctiva bilaterally. . Neck: The neck is supple, there is no tenderness or JVD. Cardiovascular: Normal S1-S2, no S3-S4, no murmurs. Respiratory: Lungs clear to auscultation bilaterally with no wheezes rhonchi or rales. Gastrointestinal: Abdomen is soft, nontender, nondistended, with no organomegaly. . Musculoskeletal: Normal ROM, no tenderness, There is no pedal edema. Neurological: There are no obvious motor or sensory deficits. Speech is normal. Skin: Skin is warm and dry and no rashes or lesions are noted. Results CBC & Chem 7: 01/01/17 19:45 01/01/17 19:45 Labs: Abnormal Lab Results - Last 24 Hours (Table) 01/01/17 01/01/17 01/01/17 Range/Units 19:08 19:45 19:45 WBC 11.7 H (3.8-10.6) k/uL Hgb 10.8 L (11.4-16.0) gm/dL Hct 33.3 L (34.0-46.0) % Neutrophils # 7.8 H (1.3-7.7) k/uL Sodium 136 L (137-145) mmol/L Glucose 146 H (74-99) mg/dL POC Glucose (mg/dL) 168 H (75-99) mg/dL Plasma Lactic Acid Adam (0.7-2.0) mmol/L AST 45 H (14-36) U/L ALT 62 H (9-52) U/L 01/01/17 01/02/17 Range/Units 19:45 11:24 WBC (3.8-10.6) k/uL Hgb (11.4-16.0) gm/dL Hct (34.0-46.0) % Neutrophils # (1.3-7.7) k/uL Sodium (137-145) mmol/L Glucose (74-99) mg/dL POC Glucose (mg/dL) 100 H (75-99) mg/dL Plasma Lactic Acid Adam 2.2 H* (0.7-2.0) mmol/L AST (14-36) U/L ALT (9-52) U/L Thrombosis Risk Factor Assmnt - Choose All That Apply Any of the Below Risk Factors Present?: Yes Each Factor Represents 1 point: Age 41-60 years, Obesity (BMI >25) Other Risk Factors: No Other congenital or acquired thrombophilia - If yes, enter type in comment: No Thrombosis Risk Factor Assessment Total Risk Factor Score: 2 Thrombosis Risk Factor Assessment Level: Low Risk Assessment and Plan Plan: 1. Acute viral gastritis 2. Positive SIRS criteria on presentation with T-max of 101.8 with no obvious source of infection. Urinalysis and chest x-ray unremarkable. Influenza screen was negative. Surgical incision on the anterior neck appeared healing well with no evidence of cellulitis or infection. Awaiting blood culture to finalize. Patient was started on antibiotic empirically. I would consult infectious disease for further evaluation 3. Mild intermittent asthma 4. Major depressive disorder 5. Chronic migraine headache 6. Recent cervical spine fusion at [facility]: Scheduled for follow-up on Sunday Today, I reviewed her medication list and lab work results. Continue IV fluid hydration, antiemetic, and pain control. Encouraged by mouth intake. Repeat lab work in the morning.
[2017-01-02] MEDS ORDERED: ceFAZolin 2,000 MG in DEXTROSE/WATER 1 50ML.BAG IVPB SCH (16:55)
[2017-01-02] MEDS: ceFAZolin 2 GM in SODIUM CHLORIDE 0.9% 100 ML IVPB SCH ×2 (17:12→23:34)
--- NOTE | 2017-01-02 18:05 | CT ---
EXAMINATION TYPE: CT cervical spine wo con DATE OF EXAM: 01/02/2017 5:56 PM COMPARISON: CT cervical spine August 22, 2016. HISTORY: Cervical fusion 12-21-16. Fever and neck pain. CT DLP: 444.40 mGycm. Automated Exposure Control for Dose Reduction was Utilized. TECHNIQUE: CT scan of the cervical spine is obtained without contrast, axial images are obtained, sa gittal and coronal reformatted images are also reviewed. FINDINGS: Cervical spine is visualized in its entirety from C1 through upper thoracic levels, demonst rates stable alignment with some reversal of normal cervical curvature without evidence of acute frac ture or dislocation. Prevertebral soft tissue appears slightly more prominent at C5-C6 level versus prior, nonspecific finding. The C1-C2 articulation is within normal limits on the coronal images. Th ere is new anterior fusion plate and high dense disc material at C5-C6 level. This causes streak valeriy fact limiting evaluation at this level. No well-formed fluid collection is identified. Spinal canal a ppears grossly preserved on sagittal images. Prominent spurring anterior inferior L3 endplate is seen . Review of axial images shows persistent effacement right anterolateral thecal sac on axial image 66, perhaps residual disc material. Suggestion of right-sided neural foraminal narrowing on axial image 6 5 similar to prior study. Clinical correlation advised, suspect possible partial discectomy. Mild fat stranding anteriorly at surgical site C5-C6 level on axial image 67 is new from prior exam. No well- formed fluid collection is seen. IMPRESSION: There is mild anterior and lateral fat stranding at surgical site, nonspecific finding co uld reflect product of recent surgery, infectious process cannot be excluded. No well-formed fluid co llection or drainable abscess is identified.
[2017-01-02 20:34] LABS: Glucose,Whole Blood 116 mg/dL (75-99)
[2017-01-02] MEDS: DOCUSATE 100 MG CAP PO SCH (22:12)
[2017-01-02] MEDS: PROPRANOLOL 20 MG TAB PO SCH (22:12)
[2017-01-02] MEDS: ATORVASTATIN 20 MG TAB PO SCH (22:12)
[2017-01-03] MEDS: BECLOMETHASONE DIP 80 MCG/PUFF INHALER INHALATION SCH ×2 (07:39→19:39)
[2017-01-03 07:44] LABS: Glucose,Whole Blood 111 mg/dL (75-99)
[2017-01-03] MEDS: FUROSEMIDE 20 MG TAB PO SCH ×2 (08:44→16:24)
[2017-01-03] MEDS: ESCITALOPRAM 10 MG TAB PO SCH (08:44)
[2017-01-03] MEDS: ASPIRIN 81 MG CHEW PO SCH (08:44)
[2017-01-03] MEDS: PANTOPRAZOLE 40 MG TABLET PO SCH (08:44)
[2017-01-03] MEDS: LORATADINE 10 MG TAB PO SCH (08:44)
[2017-01-03] MEDS: GABAPENTIN 100 MG CAP PO SCH ×3 (08:44→20:45)
[2017-01-03] MEDS: TAMSULOSIN 0.4 MG CAP.ER.24H PO SCH (08:44)
[2017-01-03] MEDS: buPROPion XL 300 MG TAB.ER.24H PO SCH (08:44)
[2017-01-03] MEDS: ceFAZolin 2 GM in SODIUM CHLORIDE 0.9% 100 ML IVPB SCH ×2 (08:58→16:24)
--- NOTE | 2017-01-03 10:05 | CONS ---
DATE OF CONSULTATION: 01/02/2017 REASON FOR CONSULTATION: Fever of unknown origin. HISTORY OF PRESENT ILLNESS: The patient is a 46-year-old female who recently did have a cervical fusion with cadaveric bone graft by Dr. Nicole at the [facility] about 11 days prior to presenting to the hospital. The patient did say that she did have a drainage tube and was just removed at 2 days ago. Was mostly drainage and no purulence but patient apparently was brought in to the ER last evening; however, the patient was shaking and felt warm. The patient did mention that her right side of the neck was slightly warmer than on the other side and apparently did have an episode of vomiting. This is the information that was provided to the ER physician. However, now the patient she told me that she did not remember what happened last evening until she got to the bed here and that she was completely out of it with an episode of vomiting. Subsequently, the patient has been evaluated by the ER physician. The patient did have fever of 101.8 degrees Fahrenheit. The chest x-ray reported negative, included UA was negative. Influenza A and B was negative. She did have slightly elevated white count. The patient was started on cefazolin 100 mL q.8 and admitted to hospital. I was asked to see the patient for further recommendation regarding antibiotic therapy. Patient denies any headache. Denies having any URI symptom. No specific pain to the neck area, just some discomfort, but no redness and no drainage. Patient denies having any chest pain, shortness of breath or cough. She did mention that she was having slight tenderness in the upper abdominal area though this seems to have resolved. No vomiting or any significant constipation. REVIEW OF SYSTEMS: CONSTITUTIONAL: Positive for weakness and a fever. EYES: No complaint. ENT: As per HPI. RESPIRATORY: No complaint. CARDIOVASCULAR: No complaint. GENITOURINARY: No complaint. GASTROINTESTINAL: As per HPI. MUSCULOSKELETAL: As per HPI. INTEGUMENTARY: As per HPI. PSYCHOLOGIC: No complaint. ENDOCRINE: No complaint. NEUROLOGIC: No complaint. Past medical history significant for diabetes mellitus, hypertension, hyperlipidemia, gastroesophageal reflux disease, asthma and pneumonia. PAST SURGICAL HISTORY: Cholecystectomy, tonsillectomy, bariatric surgery, appendectomy and the cervical spine fusion. SOCIAL HISTORY: No history of smoking. Intermittent marijuana use. No drinking. FAMILY HISTORY: Father with a history of colon cancer. Mother with history of coronary artery disease and hypertension. Allergies to multiple medications including IODINATED CONTRAST DYE and SULFA. Medications currently include the patient is on Tylenol, Atco, aspirin, Lipitor, QVAR, Wellbutrin, cefazolin 1 gm q.8, Benadryl, Colace, Pepcid, Lasix, Neurontin, Claritin, Robaxin and Protonix. On examination, blood pressure is 111/67 with a pulse of 84, temperature 98.8. T-max is 101.8. She is 97% on room air. General description is a middle-age female lying in bed in no distress. No tachypnea or accessory muscle of respiration use. HEENT examination shows slight pallor. There is no scleral icterus. Oral mucous membrane dry. NECK: Anterior cervical incision covered over with Steri-Strip. No significant swelling or any redness was noticed. LUNGS: Unlabored breathing. Clear to auscultation anteriorly. HEART: S1, S2. Regular rate and rhythm. ABDOMEN: Soft, no tenderness. EXTREMITIES: No edema of the feet. SKIN EXAMINATION: No rash or mass palpable. NEUROLOGICAL: Patient is awake, alert, oriented x3. Mood and affect normal. LABS: Hemoglobin is 10.8, white count of 11.7 with a BUN of 15, creatinine 0.90. electrolytes has been normal. Lactic acid was slightly elevated with the liver enzymes slightly elevated. Urine has been negative. Influenza A and B has been negative. DIAGNOSTIC IMPRESSION AND PLAN: Patient admitted to hospital with fever, elevated white count and slightly elevated lactic acid meeting criteria for a systemic inflammatory response syndrome-like source without any clear focus of infection. The patient's chest x-ray reported to be negative, UA has been negative, influenza A and B was negative. The patient did have a recently have a cervical fusion with cadaveric bone graft with anterior approach with recent removal of the drainage catheter with the possibility, will make sure there is no evidence of any fracture or hematoma at the surgical site that may be causing the symptomatology. PLAN: 1. Will obtain a CT of the cervical spine without contrast as the patient is allergic to contrast. 2. Will start the cefazolin 2 gm q.8 hour. 3. Will follow on the clinical condition and cultures to further adjust the medication if needed. Thank you for this consultation. Will follow this patient along with you. BLANQUITA
[2017-01-03 11:29] LABS: Glucose,Whole Blood 97 mg/dL (75-99)
--- NOTE | 2017-01-03 14:05 | P.PN ---
Subjective Patient is doing well today. No fever since admission. Objective - Vital Signs Vital signs: Vital Signs Temp 98.0 F 01/03/17 07:00 Pulse 70 01/03/17 08:00 Resp 18 01/03/17 08:00 BP 105/66 01/03/17 07:00 Pulse Ox 98 01/03/17 07:00 Intake & Output 01/02/17 01/03/17 01/03/17 18:59 06:59 18:59 Intake Total 200 865 120 Balance 200 865 120 Intake: Intake, IV Titration 625 Amount Sodium Chloride 0.9% 1, 525 000 ml @ 75 mls/hr IV . [id number] ONE Rx#:[id number] ceFAZolin 2 gm In Sodium 100 Chloride 0.9% 100 ml @ 100 mls/hr IVPB Q8HR [facility] Rx#:[id number] Oral 200 240 120 Other: # Voids 2 2 3 - Exam General: The patient is awake and alert, in no distress Eye: there is normal conjunctiva bilaterally. Neck: The neck is supple, there is no JVD. Cardiovascular: Normal S1-S2, no S3-S4, no murmurs. Respiratory: Lungs clear to auscultation bilaterally Gastrointestinal: Abdomen is soft, nontender Musculoskeletal: There is no pedal edema. Neurological:. Speech is normal. Skin: Skin is warm and dry - Labs CBC & Chem 7: 01/01/17 19:45 01/01/17 19:45 Labs: Abnormal Lab Results - Last 24 Hours (Table) 01/02/17 01/03/17 Range/Units 20:33 07:30 POC Glucose (mg/dL) 116 H 111 H (75-99) mg/dL Microbiology - Last 24 Hours (Table) 01/01/17 19:45 Blood Culture - Preliminary Blood No Growth after 24 hours Assessment and Plan Plan: 1. Acute viral gastritis 2. Positive SIRS criteria on presentation with T-max of 101.8 with no obvious source of infection. Urinalysis and chest x-ray unremarkable. Influenza screen was negative. Surgical incision on the anterior neck appeared healing well with no evidence of cellulitis or infection. Blood culture negative to date. Seen and evaluated by infectious disease. Currently on IV cefazolin. Most likely source of infection is the surgical incision site. Computed tomography scan of the cervical spine showed no evidence of fluid collection or abscess. Postoperative changes. 3. Mild intermittent asthma 4. Major depressive disorder 5. Chronic migraine headache 6. Recent cervical spine fusion at [facility]: Scheduled for follow-up on Sunday Today, I reviewed her medication list and lab work results. Plan to continue IV antibiotic for 24 hours. Anticipate discharge home tomorrow.
--- NOTE | 2017-01-03 15:28 | PN ---
DATE OF SERVICE: 01/03/2017 Reason for followup is fever with a question of surgical site infection. INTERVAL HISTORY: The patient is afebrile. She is feeling better, denies significant pain to the neck area and the patient denies significant chest pain, shortness of breath or cough. No abdominal pain or any diarrhea. On examination, blood pressure is 105/66 with a pulse of 70, temperature 98, she is 98 on room air. General description is a middle-age female, lying in bed in no distress. HEENT EXAMINATION: The neck area decision is concurred with the study. No significant swelling or redness is noticed. Very minimal induration. LUNGS: Unlabored breathing. Clear to auscultation anteriorly. HEART: S1, S2 regular rate and rhythm. ABDOMEN: Soft. No tenderness. LABS: Blood cultures so far negative. CBC will not to be repeated today. CT of the cervical spine with possible postoperative changes with no evidence of an abscess. DIAGNOSTIC IMPRESSION AND PLAN: Patient admitted to the hospital with sepsis with a fever, elevated white count, elevated lactic acid with no clear focus. The patient did have recent cervical spine surgery from anterior approach. CT did show some possible postoperative changes. Patient seemed to respond to cefazolin that will be continued with the blood culture negative. Patient was given a course of oral Keflex with close outpatient followup. All her questions and concerns were answered.
[2017-01-03 17:26] LABS: Glucose,Whole Blood 110 mg/dL (75-99)
[2017-01-03 20:44] LABS: Glucose,Whole Blood 156 mg/dL (75-99)
[2017-01-03] MEDS: PROPRANOLOL 20 MG TAB PO SCH (20:44)
[2017-01-03] MEDS: DOCUSATE 100 MG CAP PO SCH (20:45)
[2017-01-03] MEDS: ATORVASTATIN 20 MG TAB PO SCH (20:45)
[2017-01-03] MEDS: ACETAMINOPHEN TAB 325 MG TAB PO PRN (21:42)
[2017-01-04] MEDS: ACETAMINOPHEN TAB 325 MG TAB PO PRN ×2 (06:55→13:38)
[2017-01-04 07:46] LABS: Glucose,Whole Blood 103 mg/dL (75-99)
[2017-01-04 08:07] LABS: Basophils # (A) 0.1 k/uL (0-0.2); Basophils % (A) 1 %; CH 25.5; CHCM 31.2; Eosinophils # (A) 0.3 k/uL (0-0.7); Eosinophils % (A) 3 %; HCT 35.9 % (34.0-46.0); HDW 2.95; HGB 10.8 gm/dL (11.4-16.0); Hypochromasia Moderate; Luc # (Auto) 0.22; Luc % (Auto) 2; Lymphocytes # (A) 3.5 k/uL (1.0-4.8); Lymphocytes % (A) 35 %; MCH 24.7 pg (25.0-35.0); MCHC 30.1 g/dL (31.0-37.0); Mean Platelet Volume 6.6; Monocytes # (A) 0.5 k/uL (0-1.0); Monocytes % (A) 5 %; Neutrophils # (A) 5.5 k/uL (1.3-7.7); Neutrophils % (A) 54 %; RBC 4.38 m/uL (3.80-5.40); RDW 14.9 % (11.5-15.5); WBC 10.2 k/uL (3.8-10.6); WBC (Perox) 10.57
[2017-01-04 08:24] LABS: Anion Gap 10 mmol/L; Blood Urea Nitrogen 12 mg/dL (7-17); Calcium 9.1 mg/dL (8.4-10.2); Carbon Dioxide 26 mmol/L (22-30); Chloride 105 mmol/L (98-107); Glucose 108 mg/dL (74-99); Non-African American GFR(MDRD) >60 (>60 ml/min/1.73 sqM); Potassium 4.3 mmol/L (3.5-5.1); Sodium 141 mmol/L (137-145)
[2017-01-04] MEDS: PANTOPRAZOLE 40 MG TABLET PO SCH (08:28)
[2017-01-04] MEDS: TAMSULOSIN 0.4 MG CAP.ER.24H PO SCH (08:28)
[2017-01-04] MEDS: HYDROcodone/APAP 10-325MG 1 EACH TAB PO PRN (08:28)
[2017-01-04] MEDS: ESCITALOPRAM 10 MG TAB PO SCH (08:28)
[2017-01-04 08:29] VITALS: BP 86/52; TEMP 98.2
[2017-01-04] MEDS: ceFAZolin 2 GM in SODIUM CHLORIDE 0.9% 100 ML IVPB SCH ×3 (08:29)
[2017-01-04] MEDS: FUROSEMIDE 20 MG TAB PO SCH (08:29)
[2017-01-04] MEDS: ASPIRIN 81 MG CHEW PO SCH (08:29)
[2017-01-04] MEDS: GABAPENTIN 100 MG CAP PO SCH (08:29)
[2017-01-04] MEDS: LORATADINE 10 MG TAB PO SCH (08:29)
[2017-01-04] MEDS: buPROPion XL 300 MG TAB.ER.24H PO SCH (08:29)
[2017-01-04 08:40] VITALS: PULSE 70
[2017-01-04] MEDS: BECLOMETHASONE DIP 80 MCG/PUFF INHALER INHALATION SCH (08:42)
[2017-01-04 11:08] LABS: Glucose,Whole Blood 126 mg/dL (75-99)
--- NOTE | 2017-01-04 12:40 | P.DS ---
Providers Date of admission: 01/02/17 12:35 Expected date of discharge: 01/04/17 Attending physician: Bushra Elliott Consults: 01/02/17 11:48 Consult Physician Routine Consulting Provider: Genet Agustin Consult Reason/Comments: Sepsis Do you want consulting provider notified?: Yes Primary care physician: Bushra Earl [facility] Course: 1. Acute viral gastritis 2. Positive SIRS criteria on presentation with T-max of 101.8 with no obvious source of infection. Urinalysis and chest x-ray unremarkable. Influenza screen was negative. Surgical incision on the anterior neck appeared healing well with no evidence of cellulitis or infection. Blood culture negative to date. Seen and evaluated by infectious disease. Started on IV cefazolin. Most likely source of infection is the surgical incision site. Computed tomography scan of the cervical spine showed no evidence of fluid collection or abscess. Postoperative changes. Patient will be discharged home on short course oral Keflex 3. Mild intermittent asthma 4. Major depressive disorder 5. Chronic migraine headache 6. [facility]: Scheduled for follow-up on Sunday Plan - Discharge Summary New Discharge Prescriptions: Cephalexin [Keflex] 500 mg PO Q8HR #15 cap Discharge Medication List SUMAtriptan SUCCINATE [Imitrex] 100 mg PO BID PRN 04/28/14 [History] Temazepam [Restoril] 30 mg PO HS PRN 05/12/15 [History] buPROPion HCL [Wellbutrin XL] 300 mg PO DAILY 05/12/15 [History] Docusate [Colace] 100 mg PO HS 12/29/15 [History] Cetirizine HCl [Zyrtec] 10 mg PO DAILY 05/23/16 [History] Methocarbamol [Robaxin-750] 750 mg PO TID PRN 05/23/16 [History] Omeprazole [PriLOSEC] 20 mg PO DAILY 05/23/16 [History] Furosemide [Lasix] 20 mg PO BID 09/19/16 [History] Aspirin [Adult Low Dose Aspirin EC] 81 mg PO DAILY 01/01/17 [History] Beclomethasone Dipropionate [Qvar 80 mcg] 2 puff INHALATION RT-BID 01/01/17 [ History] Escitalopram [Lexapro] 10 mg PO DAILY 01/01/17 [History] Gabapentin [Neurontin] 100 mg PO TID 01/01/17 [History] LORazepam [Ativan] 0.5 mg PO DAILY PRN 01/01/17 [History] Propranolol HCl [Inderal] 60 mg PO HS 01/01/17 [History] Simvastatin [Zocor] 40 mg PO HS 01/01/17 [History] Tamsulosin HCl [Flomax] 0.4 mg PO DAILY 01/01/17 [History] oxyCODONE-APAP 10-325MG [Percocet 10-325 mg] 2 tab PO Q4H PRN 01/01/17 [History] Cephalexin [Keflex] 500 mg PO Q8HR #15 cap 01/04/17 [Rx] Follow up Appointment(s)/Referral(s): Macy Knight MD [STAFF PHYSICIAN] - 1-2 days Discharge Disposition: HOME SELF-CARE
--- NOTE | 2017-01-04 16:34 | PN ---
DATE OF SERVICE: 01/04/2017 REASON FOR FOLLOWUP: Fever. INTERVAL HISTORY: The patient is afebrile. She is complaining of some pain on the left side of her neck last night however, it seems to have resolved since then. Patient is taking some Taylor and Tylenol, with resolution of the pain. No further fever has been noticed. Patient denies significant chest pain, shortness of breath or cough. No abdominal pain or any diarrhea. On examination, blood pressure is 115/71 with a pulse of 63, temperature 98.2. She is 98% on room air. General description is a middle-aged female lying in bed in no distress. HEENT EXAMINATION: In the neck area no swelling or redness or fluctuation was noticed. LUNGS: Unlabored breathing. Clear to auscultation anteriorly. HEART: S1, S2. Regular rate and rhythm. ABDOMEN: Soft. No tenderness. LABS: Hemoglobin is 10.8, white count 10.2 with a BUN of 12, creatinine 0.65. Blood culture has been negative. DIAGNOSTIC IMPRESSION AND PLAN: Patient with fever. Extensive workup. Some abnormality on the CT cervical spine that could be post-surgical; infection not entirely excluded. Patient's fever has resolved. Blood culture is negative. She will be given Keflex for 10 days and follow up with the surgeon in the morning. Continue supportive care. BLANQUITA
== END 2017-01-04 13:50 | disposition home or self-care (01) | DRG 392 ==
LOC: EC 19:02 → 5MS5E 21:03 → OBSVTOIN 01-02 12:35
PROVIDERS: ADMIT Internal Medicine; ATTEND Internal Medicine
DX: A08.4 Viral intestinal infection, unspecified (principal); E11.40 Type 2 diabetes mellitus with diabetic neuropathy, unspecified; E78.5 Hyperlipidemia, unspecified; F12.90 Cannabis use, unspecified, uncomplicated; F32.9 Major depressive disorder, single episode, unspecified; F41.9 Anxiety disorder, unspecified; G43.909 Migraine, unspecified, not intractable, without status migrainosus; I10 Essential (primary) hypertension; J45.20 Mild intermittent asthma, uncomplicated; K21.9 Gastro-esophageal reflux disease without esophagitis; M10.9 Gout, unspecified; M19.012 Primary osteoarthritis, left shoulder; M19.011 Primary osteoarthritis, right shoulder; K58.9 Irritable bowel syndrome, unspecified; K44.9 Diaphragmatic hernia without obstruction or gangrene; Z79.82 Long term (current) use of aspirin; Z79.899 Other long term (current) drug therapy; Z98.84 Bariatric surgery status; Z98.1 Arthrodesis status; Z85.41 Personal history of malignant neoplasm of cervix uteri; Z88.5 Allergy status to narcotic agent; Z88.2 Allergy status to sulfonamides; Z88.6 Allergy status to analgesic agent; Z91.041 Radiographic dye allergy status; Z82.49 Family history of ischemic heart disease and other diseases of the circulatory system
CPT/HCPCS: 36415; 71020; 72125; 80048; 80053; 81003; 83605; 85025; 87040; 87502; 93005; 94640; 96361; 96374; 99285

== ENCOUNTER 2017-03-06 05:21 | Emergency (ER) | payer OTHER ==
[2017-03-06 05:28] VITALS: TEMP 97.7
[2017-03-06 06:10] LABS: Basophils # (A) 0.1 k/uL (0-0.2); Basophils % (A) 1 %; CH 24.9; CHCM 31.8; Eosinophils # (A) 0.3 k/uL (0-0.7); Eosinophils % (A) 3 %; HCT 35.9 % (34.0-46.0); HDW 3.11; HGB 11.4 gm/dL (11.4-16.0); Hypochromasia Slight; Luc # (Auto) 0.24; Luc % (Auto) 2; Lymphocytes # (A) 4.4 k/uL (1.0-4.8); Lymphocytes % (A) 42 %; MCH 24.9 pg (25.0-35.0); MCHC 31.7 g/dL (31.0-37.0); MCV 78.7 fL (80.0-100.0); Mean Platelet Volume 6.7; Monocytes # (A) 0.6 k/uL (0-1.0); Monocytes % (A) 5 %; Neutrophils # (A) 4.9 k/uL (1.3-7.7); Neutrophils % (A) 47 %; RBC 4.56 m/uL (3.80-5.40); RDW 15.1 % (11.5-15.5); WBC 10.5 k/uL (3.8-10.6); WBC (Perox) 10.31
[2017-03-06] MEDS ORDERED: MORPHINE SULFATE 4 MG/ML SYRINGE IV STA ×2 (06:13→06:55)
[2017-03-06] MEDS ORDERED: ONDANSETRON 4 MG/2 ML VIAL IVP STA ×2 (06:13→06:55)
[2017-03-06 06:23] LABS: ALT 52 U/L (9-52); AST 43 U/L (14-36); Alkaline Phosphatase 78 U/L (38-126); Amylase 51 U/L (30-110); Anion Gap 13 mmol/L; Blood Urea Nitrogen 10 mg/dL (7-17); Calcium 9.5 mg/dL (8.4-10.2); Carbon Dioxide 24 mmol/L (22-30); Chloride 104 mmol/L (98-107); Glucose 124 mg/dL (74-99); Non-African American GFR(MDRD) >60 (>60 ml/min/1.73 sqM); Sodium 141 mmol/L (137-145); Total Bilirubin 0.4 mg/dL (0.2-1.3); Total Protein 7.3 g/dL (6.3-8.2)
[2017-03-06 06:27] LABS: Appearance,Urine Cloudy (Clear); Bacteria,Urine Rare /hpf; Bilirubin,Urine Negative (Negative); Glucose,Urine (UA) Negative (Negative); Ketones,Urine Negative (Negative); Leukocyte Esterase,Urine Negative (Negative); Mucus,Urine Rare /hpf; Nitrite,Urine Negative (Negative); PH, Urine 6.5 (5.0-8.0); Particle Count 2923; Protein,Urine Negative (Negative); RBC,Urine <1 /hpf (0-5); Specific Gravity,Urine 1.002 (1.001-1.035); Squamous Epithelial Cell,Urine 9 /hpf (0-4); UA Billing (MACRO vs. MICRO) MICRO; Urobilinogen,Urine <2.0 mg/dL (<2.0); WBC,Urine 4 /hpf (0-5)
--- NOTE | 2017-03-06 06:45 | ED ---
Abdominal Pain HPI - General Source: patient Mode of arrival: ambulatory Limitations: no limitations - History of Present Illness MD Complaint: abdominal pain Onset/Timin -: days(s) Location: [facility] Migration to: no migration Severity: severe Quality: other (Like a swarm of bees) Consistency: colicky Improves With: nothing Worsens With: other (Palpation) Associated Symptoms: nausea, vomiting, constipation <Vickey Perez - Last Filed: 03/06/17 06:34> <Robert Acosta - Last Filed: 03/06/17 08:05> - General Chief Complaint: Abdominal Pain Stated Complaint: abd pain Time Seen by Provider: 03/06/17 05:33 - History of Present Illness Initial Comments: This patient is a 46-year-old woman with history of previous gastric bypass surgery who presents to be evaluated for left upper quadrant pain. She states the pain started about 5 days ago but seems to be getting worse and so better. She describes the pain as being constant. She states that it feels " like a swarm of bees stinging me". She states the pain gets worse with palpation and has not found anything that seems to help it. She tried to take half of a [place] but it did not seem to affect the pain much. Patient has had some associated nausea. She states that she has not had a bowel movement for 2 days. She has not had any change in urination. (Vickey Perez) - Related Data Home Medications Medication Instructions Recorded Confirmed SUMAtriptan SUCCINATE [Imitrex] 100 mg PO BID PRN 04/28/14 03/06/17 Temazepam [Restoril] 30 mg PO HS PRN 05/12/15 03/06/17 buPROPion HCL [Wellbutrin XL] 300 mg PO DAILY 05/12/15 03/06/17 Docusate [Colace] 100 mg PO HS 12/29/15 03/06/17 Cetirizine HCl [Zyrtec] 10 mg PO DAILY 05/23/16 03/06/17 Methocarbamol [Robaxin-750] 750 mg PO TID PRN 05/23/16 03/06/17 Omeprazole [PriLOSEC] 20 mg PO DAILY 05/23/16 03/06/17 Furosemide [Lasix] 20 mg PO BID 09/19/16 03/06/17 Aspirin [Adult Low Dose Aspirin EC] 81 mg PO DAILY 01/01/17 03/06/17 Beclomethasone Dipropionate [Qvar 2 puff INHALATION RT-BID 01/01/17 03/06/17 80 mcg] Escitalopram [Lexapro] 10 mg PO DAILY 01/01/17 03/06/17 Gabapentin [Neurontin] 100 mg PO TID 01/01/17 03/06/17 LORazepam [Ativan] 0.5 mg PO DAILY PRN 01/01/17 03/06/17 Propranolol HCl [Inderal] 60 mg PO HS 01/01/17 03/06/17 Simvastatin [Zocor] 40 mg PO HS 01/01/17 03/06/17 Tamsulosin HCl [Flomax] 0.4 mg PO DAILY 01/01/17 03/06/17 Hydrocodone/Acetaminophen [[place] 1 tab PO Q6HR PRN 03/06/17 03/06/17 5-325] Previous Rx's Medication Instructions Recorded Cephalexin [Keflex] 500 mg PO Q8HR #15 cap 01/04/17 Allergies Allergy/AdvReac Type Severity Reaction Status Date / Time acetaminophen [From Lortab] Allergy Swelling Verified 01/02/17 10:12 apricot Allergy Unknown Verified 09/19/16 22:32 barium sulfate Allergy Anaphylaxis Verified 09/19/16 21:37 [From Readi-Cat] codeine Allergy Anaphylaxis Verified 01/01/17 19:40 hydrocodone [From Lortab] Allergy Swelling Verified 01/01/17 19:40 Iodinated Contrast- Oral and Allergy Anaphylaxis Verified 01/01/17 19:40 IV Dye iodine Allergy Rash/Hives Verified 01/01/17 19:40 peach Allergy Unknown Verified 09/19/16 21:37 peanut oil Allergy Unknown Verified 09/19/16 21:37 shellfish derived [Shellfish] Allergy Unknown Verified 09/19/16 22:32 sucralfate [From Carafate] Allergy Swelling Verified 09/19/16 22:32 Sulfa (Sulfonamide Allergy Anaphylaxis Verified 01/01/17 19:40 Antibiotics) tree nut [Nut] Allergy Unknown Verified 09/19/16 22:32 oxycodone [From Percocet] AdvReac Severe Swelling Verified 01/02/17 10:13 Review of Systems ROS Other: All systems not noted in ROS Statement are negative. Constitutional: Denies: fever, chills Respiratory: Denies: cough, dyspnea Cardiovascular: Denies: chest pain, palpitations, edema, syncope Gastrointestinal: Reports: as per HPI, abdominal pain, nausea, constipation. Denies: diarrhea, melena, hematochezia Genitourinary: Denies: dysuria, hematuria Musculoskeletal: Denies: back pain Skin: Denies: rash Neurological: Denies: headache, weakness, numbness <Vickey Perez - Last Filed: 03/06/17 06:34> ROS Other: All systems not noted in ROS Statement are negative. <AcostaRobert - Last Filed: 03/06/17 08:05> ROS Statement: Those systems with pertinent positive or pertinent negative responses have been documented in the HPI. Past Medical History Past Medical History: Asthma, Diabetes Mellitus, GERD/Reflux, Hyperlipidemia, Hypertension, Pneumonia Additional Past Medical History / Comment(s): NIDDM, diabetic neuropathy bilateral feet, migraines, cervicla disc disease, bilateral tinnitis, arthiritis bilateral shoulders, possible fibromyalgia-pt in process of being diagnosed, gout in feet but no longer an issue, seasonal allergies, IBS, R arm fx yrs ago, R ovarian cyst, hiatal hernia, UTIs, urinary calculus, pancreatitis x 2, stomach ulcer. History of Any Multi-Drug Resistant Organisms: C-DIFF Date of last positivie culture/infection: 2012 MDRO Source:: stool Past Surgical History: Appendectomy, Bariatric Surgery, Cholecystectomy, Tonsillectomy Additional Past Surgical History / Comment(s): 2010 felix-en-Y, fistula repair 2011.2012 gastric bypass revision, bowel resection, lap gastrojejunostomy anastamosis revision, EGD and colonoscopy, cone bx-cervical cancer remove with cryo, L fallopian tube removed due to cyst, picc line in and out, Past Anesthesia/Blood Transfusion Reactions: Motion Sickness, Postoperative Nausea & Vomiting (PONV) Additional Past Anesthesia/Blood Transfusion Reaction / Comment(s): Pt states she has never recieved blood. Past Psychological History: Anxiety, Depression Smoking Status: Never smoker Past Alcohol Use History: None Reported Past Drug Use History: Marijuana - Past Family History Father Family Medical History: Cancer Additional Family Medical History / Comment(s): Father had colon and lung cancer and at age 73yrs. Mother Family Medical History: Coronary Artery Disease (CAD), Diabetes Mellitus, Hypertension Additional Family Medical History / Comment(s): Mother is alive and 73 yrs old. <Ezekielcarlos enriqueVickey - Last Filed: 03/06/17 06:34> General Exam Limitations: no limitations General appearance: alert, in no apparent distress Head exam: Present: atraumatic, normocephalic Eye exam: Present: normal appearance. Absent: scleral icterus, conjunctival injection ENT exam: Present: normal oropharynx Respiratory exam: Present: normal lung sounds bilaterally. Absent: respiratory distress, wheezes, rales, rhonchi, stridor Cardiovascular Exam: Present: regular rate, normal rhythm, normal heart sounds. Absent: systolic murmur, diastolic murmur, rubs, gallop GI/Abdominal exam: Present: soft, tenderness (Left upper quadrant), normal bowel sounds. Absent: distended, guarding, rebound, rigid, mass, pulsatile mass , hernia Extremities exam: Present: normal inspection, normal capillary refill. Absent: pedal edema, calf tenderness Back exam: Present: normal inspection. Absent: CVA tenderness (R), CVA tenderness (L) Neurological exam: Present: alert Skin exam: Present: warm, dry, intact, normal color. Absent: rash <ChrisVickey - Last Filed: 03/06/17 06:34> Medical Decision Making - Lab Data Result diagrams: 03/06/17 06:00 03/06/17 06:00 <ChrisVickey - Last Filed: 03/06/17 06:34> - Lab Data Result diagrams: 03/06/17 06:00 03/06/17 06:00 - Radiology Data Radiology results: report reviewed (Computed tomography scan of the abdomen pelvis shows postoperative changes. No evidence of bowel obstruction, pericolonic collection or free air.) <Robert Acosta - Last Filed: 03/06/17 08:05> - Medical Decision Making Patient reevaluated and resting comfortably in bed. Abdomen soft and nontender. Patient updated on results. Patient is advised there is increased sensitivity with oral and IV contrast however does not want repeat computed tomography scan. Patient is advised to follow-up with her surgeon in local surgeon for scope and further evaluation. Patient advised to return for fevers or worsening symptoms. Patient is comfortable with discharge at this time. He should states she has medicine for nausea vomiting home. She states her symptoms actually been present for close to a month however nausea and diarrhea just started. (Robert Acosta) - Lab Data Lab Results 03/06/17 03/06/17 03/06/17 Range/Units 06:00 06:00 06:00 WBC 10.5 (3.8-10.6) k/uL RBC 4.56 (3.80-5.40) m/uL Hgb 11.4 (11.4-16.0) gm/dL Hct 35.9 (34.0-46.0) % MCV 78.7 L (80.0-100.0) fL MCH 24.9 L (25.0-35.0) pg MCHC 31.7 (31.0-37.0) g/dL RDW 15.1 (11.5-15.5) % Plt Count 333 (150-450) k/uL Neutrophils % 47 % Lymphocytes % 42 % Monocytes % 5 % Eosinophils % 3 % Basophils % 1 % Neutrophils # 4.9 (1.3-7.7) k/uL Lymphocytes # 4.4 (1.0-4.8) k/uL Monocytes # 0.6 (0-1.0) k/uL Eosinophils # 0.3 (0-0.7) k/uL Basophils # 0.1 (0-0.2) k/uL Hypochromasia Slight Sodium 141 (137-145) mmol/L Potassium 4.0 (3.5-5.1) mmol/L Chloride 104 (98-107) mmol/L Carbon Dioxide 24 (22-30) mmol/L Anion Gap 13 mmol/L BUN 10 (7-17) mg/dL Creatinine 0.80 (0.52-1.04) mg/dL Est GFR (MDRD) Af Amer >60 (>60 ml/min/1.73 sqM) Est GFR (MDRD) Non-Af >60 (>60 ml/min/1.73 sqM) Glucose 124 H (74-99) mg/dL Calcium 9.5 (8.4-10.2) mg/dL Total Bilirubin 0.4 (0.2-1.3) mg/dL AST 43 H (14-36) U/L ALT 52 (9-52) U/L Alkaline Phosphatase 78 (38-126) U/L Total Protein 7.3 (6.3-8.2) g/dL Albumin 4.3 (3.5-5.0) g/dL Amylase 51 (30-110) U/L Lipase 104 (23-300) U/L Urine Color Colorless Urine Appearance Cloudy H (Clear) Urine pH 6.5 (5.0-8.0) Ur Specific [place] 1.002 (1.001-1.035) Urine Protein Negative (Negative) Urine Glucose (UA) Negative (Negative) Urine Ketones Negative (Negative) Urine Blood Negative (Negative) Urine Nitrite Negative (Negative) Urine Bilirubin Negative (Negative) Urine Urobilinogen <2.0 (<2.0) mg/dL Ur Leukocyte Esterase Negative (Negative) Urine RBC <1 (0-5) /hpf Urine WBC 4 (0-5) /hpf Ur Squamous Epith Cells 9 H (0-4) /hpf Urine Bacteria Rare H (None) /hpf Urine Mucus Rare H (None) /hpf Disposition <Vickey Perez - Last Filed: 03/06/17 06:34> Time of Disposition: 08:05 <Robert Acosta - Last Filed: 03/06/17 08:05> Clinical Impression: Abdominal pain Disposition: HOME SELF-CARE Condition: Stable Instructions: Abdominal Pain (ED) Additional Instructions: Please follow-up through primary care physician, surgeon, and Dr. Dumont this week. Consider endoscopy. Return for fever, uncontrolled vomiting, increased pain, worsening symptoms or other concerns. Referrals: Macy Knight MD [Primary Care Provider] - 1-2 days
--- NOTE | 2017-03-06 07:12 | CT ---
EXAM: CT Abdomen and Pelvis Without Intravenous Contrast sagittal and coronal reformats were performed and interpreted. CLINICAL HISTORY: Reason: Pain TECHNIQUE: Axial computed tomography images of the abdomen and pelvis without intravenous contrast. CTDI is 10.40 mGy and DLP is 561.10 mGy-cm. This CT exam was performed using one or more of the following dose reduction techniques: automated exposure control, adjustment of the mA and/or kV according to patient size, and/or use of iterative reconstruction technique. COMPARISON: Comparison CT is available from 05/13/2015 FINDINGS: Lower thorax: No acute findings. ABDOMEN: Liver: Unremarkable. Gallbladder and bile ducts: Status post cholecystectomy. Pancreas: Unremarkable. No ductal dilation. Spleen: Unremarkable. No splenomegaly. Adrenals: Unremarkable. No mass. Kidneys and ureters: Unremarkable. No obstructing stones. No hydronephrosis. Stomach and bowel: Patient status post gastric surgery with a Sabino-en- Y procedure which has been previously noted. Prominent transverse colon likely due to underdistention. Appendix: The appendix has been removed. PELVIS: Bladder: Unremarkable. No stones. Reproductive: Unremarkable as visualized. ABDOMEN and PELVIS: Intraperitoneal space: Unremarkable. No free air. No significant fluid collection. Bones/joints: Mild degenerative changes are noted within the thoracolumbar spine Soft tissues: Unremarkable. Vasculature: Unremarkable. No abdominal aortic aneurysm. Lymph nodes: Unremarkable. No enlarged lymph nodes. IMPRESSION: 1. Postoperative changes as described above. 2. No evidence of bowel obstruction, pericolonic collection or free air.
[2017-03-06 08:21] VITALS: BP 114/70; PULSE 100; RESP 17
== END 2017-03-06 08:21 | disposition home or self-care (01) ==
LOC: EC 05:21
DX: R10.12 Left upper quadrant pain (principal); R11.2 Nausea with vomiting, unspecified; K59.00 Constipation, unspecified; J45.909 Unspecified asthma, uncomplicated; K21.9 Gastro-esophageal reflux disease without esophagitis; E78.5 Hyperlipidemia, unspecified; I10 Essential (primary) hypertension; E11.40 Type 2 diabetes mellitus with diabetic neuropathy, unspecified; F41.9 Anxiety disorder, unspecified; F32.9 Major depressive disorder, single episode, unspecified; Z88.2 Allergy status to sulfonamides; Z88.5 Allergy status to narcotic agent; Z88.8 Allergy status to other drugs, medicaments and biological substances; Z91.013 Allergy to seafood; Z91.018 Allergy to other foods; Z91.041 Radiographic dye allergy status; Z91.048 Other nonmedicinal substance allergy status; Z79.51 Long term (current) use of inhaled steroids; Z79.82 Long term (current) use of aspirin; Z79.899 Other long term (current) drug therapy
CPT/HCPCS: 99284; 96374; 96375; 96376 ×2; 36415; 80053; 82150; 83690; 85025; 81001; 74176; J2270; J2405

== ENCOUNTER 2017-03-30 08:28 | Day surgery (SDC) | payer OTHER ==
[2017-03-29 09:15] VITALS: BMI 26.6
[2017-03-30 09:28] VITALS: TEMP 98.2
[2017-03-30 09:36] LABS: Glucose,Whole Blood 142 mg/dL (75-99)
[2017-03-30] MEDS: LACTATED RINGERS 1,000 ML IV SCH ×2 (09:40→09:41)
[2017-03-30] MEDS ORDERED: PROPOFOL 10 MG/ML 20 ML VIAL IV ONE (09:43)
[2017-03-30 10:17] VITALS: RESP 16
--- NOTE | 2017-03-30 10:20 | P.PCN ---
Date of Procedure: 03/30/17 Preoperative Diagnosis: Postoperative Diagnosis: Procedure(s) Performed: PREOPERATIVE DIAGNOSIS: Abdominal pain, GI bleed POSTOPERATIVE DIAGNOSIS: Esophagogastroscopy, colonoscopy PROCEDURE: 1. Esophagogastroscopy with biopsy 2. Colonoscopy ANESTHESIA: MAC SURGEON: Saul Castillo M.D. SPECIMENS: None ENDOSCOPIC PROCEDURE: The patient was on the endoscopy table in the left decubitus position. The Olympus gastroscope was inserted into the oropharynx and passed under direct visualization to the region of the gastrojejunostomy. The anastomosis was widely patent. The jejunum appeared normal. There was no marginal ulcer seen. No evidence of fistula was seen. The esophagus was then carefully examined. There were no neoplastic inflammatory or polypoid lesions throughout the visualized esophagus. The patient was kept on the endoscopy table in the left decubitus position. The Olympus colonoscope was inserted into the anus and passed under direct visualization to the base of the cecum. The appendiceal orifice was visualized. From that point the scope was slowly withdrawn inspecting all surfaces carefully. There were no neoplastic inflammatory or polypoid lesions throughout the cecum, ascending, transverse, descending, sigmoid and rectum. There was no diverticulosis noted. Digital rectal examination was normal. The patient was taken to the recovery room in stable condition per anesthesia guidelines. RECOMMENDATIONS: Increase fiber. Resume diet. Follow-up with her bariatric surgeon to discuss her left upper quadrant discomfort. Implants: Indications for Procedure: Operative Findings: Description of Procedure:
[2017-03-30 10:34] VITALS: BP 98/66; PULSE 82
== END 2017-03-30 11:00 | disposition home or self-care (01) ==
LOC: ORWHC2ENDO 08:28
PROVIDERS: ATTEND Surgery
DX: K62.5 Hemorrhage of anus and rectum (principal); R10.9 Unspecified abdominal pain; Z80.0 Family history of malignant neoplasm of digestive organs; I10 Essential (primary) hypertension; E78.5 Hyperlipidemia, unspecified; E11.9 Type 2 diabetes mellitus without complications; G43.809 Other migraine, not intractable, without status migrainosus; M79.7 Fibromyalgia; G62.9 Polyneuropathy, unspecified; K21.9 Gastro-esophageal reflux disease without esophagitis; M10.9 Gout, unspecified; F32.9 Major depressive disorder, single episode, unspecified; F41.9 Anxiety disorder, unspecified; K58.9 Irritable bowel syndrome, unspecified; M19.90 Unspecified osteoarthritis, unspecified site; Z98.84 Bariatric surgery status; Z88.5 Allergy status to narcotic agent; Z88.2 Allergy status to sulfonamides; Z88.8 Allergy status to other drugs, medicaments and biological substances; Z91.041 Radiographic dye allergy status; Z79.84 Long term (current) use of oral hypoglycemic drugs; Z79.1 Long term (current) use of non-steroidal anti-inflammatories (NSAID); Z79.82 Long term (current) use of aspirin; Z79.899 Other long term (current) drug therapy; Z79.4 Long term (current) use of insulin
CPT/HCPCS: 81025; 45378; 43235; J2704

== ENCOUNTER 2017-04-12 15:05 | Emergency (ER) | payer OTHER ==
[2017-04-12] MEDS ORDERED: FAMOTIDINE 20 MG/2 ML VIAL IV STA (16:11)
[2017-04-12] MEDS ORDERED: SODIUM CHLORIDE 0.9% 1,000 ML IV ONE ×2 (16:11→19:36)
[2017-04-12] MEDS ORDERED: ONDANSETRON 4 MG/2 ML VIAL IVP STA ×2 (16:11→23:27)
[2017-04-12 16:41] LABS: Appearance,Urine Cloudy (Clear); Bacteria,Urine Rare /hpf; Bilirubin,Urine Negative (Negative); Glucose,Urine (UA) Negative (Negative); Ketones,Urine Negative (Negative); Leukocyte Esterase,Urine Moderate (Negative); Nitrite,Urine Negative (Negative); PH, Urine 6.5 (5.0-8.0); Particle Count 4382; Protein,Urine Negative (Negative); RBC,Urine 1 /hpf (0-5); Specific Gravity,Urine 1.002 (1.001-1.035); Squamous Epithelial Cell,Urine 4 /hpf (0-4); UA Billing (MACRO vs. MICRO) MICRO; Urobilinogen,Urine <2.0 mg/dL (<2.0); WBC,Urine 4 /hpf (0-5)
[2017-04-12 17:10] LABS: Anisocytosis Slight; Basophils # (A) 0.1 k/uL (0-0.2); Basophils % (A) 1 %; CH 24.8; CHCM 28.7; Eosinophils # (A) 0.2 k/uL (0-0.7); Eosinophils % (A) 2 %; HCT 36.5 % (34.0-46.0); HGB 11.2 gm/dL (11.4-16.0); Hypochromasia Marked; Luc # (Auto) 0.26; Luc % (Auto) 3; Lymphocytes # (A) 3.2 k/uL (1.0-4.8); Lymphocytes % (A) 36 %; MCH 26.5 pg (25.0-35.0); MCHC 30.6 g/dL (31.0-37.0); Monocytes # (A) 0.4 k/uL (0-1.0); Monocytes % (A) 5 %; Neutrophils # (A) 4.7 k/uL (1.3-7.7); Neutrophils % (A) 53 %; RBC 4.21 m/uL (3.80-5.40); RDW 16.1 % (11.5-15.5); WBC 8.8 k/uL (3.8-10.6); WBC (Perox) 8.82
[2017-04-12 17:12] LABS: MCV 86.6 fL (80.0-100.0)
--- NOTE | 2017-04-12 17:16 | CT ---
EXAMINATION TYPE: CT abdomen pelvis wo con DATE OF EXAM: 04/12/2017 COMPARISON: NONE HISTORY: Generalized abdominal pain with nausea and vomiting. CT DLP: 1038.00 mGycm Automated exposure control for dose reduction was used. TECHNIQUE: Helical acquisition of images was performed from the lung bases through the pelvis. FINDINGS: Lack of intravenous contrast limits evaluation of the hollow and solid viscera. LUNG BASES: No significant abnormality is appreciated. LIVER/GB: Left hepatectomy and cholecystectomy are noted PANCREAS: No significant abnormality is seen. SPLEEN: No significant abnormality is seen. ADRENALS: No significant abnormality is seen. KIDNEYS: No significant abnormality is seen. FREE AIR: No free air is visualized RETROPERITONEAL ADENOPATHY: None visualized REPRODUCTIVE ORGANS: No significant abnormality is seen URINARY BLADDER: No significant abnormality is seen. PELVIC ADENOPATHY: None visualized. OSSEOUS STRUCTURES: No significant abnormality is seen. BOWEL: No significant abnormality is seen. Lipomatous hypertrophy of the ileocecal valve is seen. Hi gh density foci within the right lower quadrant may relate to surgical clips. Postsurgical change kuldeep und the gastric fundus from partial gastrectomy and small bowel loops of the left upper quadrant are noted. At the surgical anastomosis site there is a short segment small bowel entero-enteral intussusc eption without resultant small bowel obstruction. OTHER: Small umbilical hernia seen. IMPRESSION: SMALL BOWEL ENTEROENTERIC SHORT SEGMENT INTUSSUSCEPTION AT THE ANASTOMOTIC SITE WITHIN THE MID LEFT A BDOMEN. NO RESULTANT SMALL BOWEL OBSTRUCTION. SMALL BOWEL FOLLOW-THROUGH COULD BE PERFORMED TO ENSURE RESOLUTION THIS IS MOST COMMONLY INTERMITTENT, ALTHOUGH AGRICULTURAL REAL ESTATE AGENT POINT MAY BE PRESENT.
[2017-04-12 17:18] LABS: ALT 44 U/L (9-52); AST 37 U/L (14-36); Alkaline Phosphatase 74 U/L (38-126); Anion Gap 12 mmol/L; Blood Urea Nitrogen 14 mg/dL (7-17); Carbon Dioxide 15 mmol/L (22-30); Chloride 116 mmol/L (98-107); Glucose 85 mg/dL (74-99); Magnesium 1.8 mg/dL (1.6-2.3); Non-African American GFR(MDRD) >60 (>60 ml/min/1.73 sqM); Potassium 4.3 mmol/L (3.5-5.1); Sodium 143 mmol/L (137-145); Total Bilirubin 0.4 mg/dL (0.2-1.3)
[2017-04-12] MEDS ORDERED: MORPHINE SULFATE 4 MG/ML SYRINGE IVP STA (17:26)
--- NOTE | 2017-04-12 17:43 | ED ---
Nausea/Vomiting/Diarrhea HPI - General Chief complaint: Nausea/Vomiting/Diarrhea Stated complaint: Vomiting/Swollen throat Source: patient Mode of arrival: ambulatory Limitations: no limitations - History of Present Illness Initial comments: Patient is a 46-year-old female who presents for evaluation for generalized abdominal pain, nausea, vomiting, diarrhea over the last 1-2 days. Patient states that this is a recurrent issue. She describes the pain as a cramping type sensation. Has a history of recurrent left upper quadrant pain. She has a history of bariatric surgery. Her surgeon is Dr. Connell not affiliated with this hospital. She states that she's been having a few episodes of vomiting. Has been having a couple episodes of diarrhea. She has a history of C. diff. She states it is very foul smelling. She feels worn down and weak. Little bit decreased appetite which she relates to the nausea and the vomiting. Has been evaluated by Dr. Castillo in the past. Had a scope which not reveal a significant amount of mildly. It was recommended at that time that she follow-up with her bariatric surgeon. She denies fever, chills, headache, changes in vision, URI symptoms, shortness breath, cough, chest pain, pain or burning with urination. - Related Data Home Medications Medication Instructions Recorded Confirmed buPROPion HCL [Wellbutrin XL] 300 mg PO DAILY 05/12/15 04/12/17 Docusate [Colace] 100 mg PO HS 12/29/15 04/12/17 Cetirizine HCl [Zyrtec] 10 mg PO BID 05/23/16 04/12/17 Methocarbamol [Robaxin-750] 750 mg PO BID PRN 05/23/16 04/12/17 Omeprazole [PriLOSEC] 20 mg PO DAILY 05/23/16 04/12/17 Furosemide [Lasix] 20 mg PO BID 09/19/16 04/12/17 Aspirin [Adult Low Dose Aspirin EC] 81 mg PO DAILY 01/01/17 04/12/17 Beclomethasone Dipropionate [Qvar 2 puff INHALATION RT-BID PRN 01/01/17 04/12/17 80 mcg] LORazepam [Ativan] 0.5 mg PO DAILY PRN 01/01/17 04/12/17 Simvastatin [Zocor] 40 mg PO HS 01/01/17 04/12/17 Hydrocodone/Acetaminophen [[place] 1 tab PO BID PRN 03/06/17 04/12/17 5-325] Cholecalciferol (Vitamin D3) 2,000 unit PO DAILY 03/29/17 04/12/17 [Vitamin D3] Cyanocobalamin [Vitamin B-12 1,000 mcg SQ Q28D 03/29/17 04/12/17 Injection] Ibuprofen [Motrin] 600 mg PO Q6HR PRN 03/29/17 04/12/17 Ketorolac [Toradol] 10 mg PO Q6HR PRN 03/29/17 04/12/17 Ondansetron [Zofran] 4 mg PO Q8HR PRN 03/29/17 04/12/17 diphenhydrAMINE [Benadryl] 50 mg PO QID PRN 03/29/17 04/12/17 hydrOXYzine HCL [Atarax] 75 mg PO HS PRN 03/29/17 04/12/17 metFORMIN HCL [Glucophage] 250 mg PO DAILY 03/29/17 04/12/17 traMADol HCl [Ultram] 50 mg PO Q8H PRN 03/29/17 04/12/17 Cyanocobalamin [Vitamin B-12] 500 mcg PO DAILY 04/12/17 04/12/17 Diazepam [Valium] 10 mg PO HS PRN 04/12/17 04/12/17 Diazepam [Valium] 20 mg PO HS PRN 04/12/17 04/12/17 Escitalopram [Lexapro] 20 mg PO DAILY 04/12/17 04/12/17 Propranolol LA [Inderal LA] 80 mg PO HS 04/12/17 04/12/17 Rizatriptan Benzoate [Maxalt RADIOLOGY MANAGER] 10 mg PO TID PRN 04/12/17 04/12/17 Allergies Allergy/AdvReac Type Severity Reaction Status Date / Time apricot Allergy Unknown Verified 04/12/17 15:20 barium sulfate Allergy Anaphylaxis Verified 04/12/17 15:20 [From Readi-Cat] codeine Allergy Anaphylaxis Verified 04/12/17 15:20 hydrocodone [From Lortab] Allergy Swelling Verified 04/12/17 15:20 Iodinated Contrast- Oral and Allergy Anaphylaxis Verified 04/12/17 15:20 IV Dye iodine Allergy Rash/Hives Verified 04/12/17 15:20 peach Allergy Swelling Verified 04/12/17 15:20 peanut Allergy Swelling Verified 04/12/17 15:20 peanut oil Allergy Anaphylaxis Verified 04/12/17 16:13 shellfish derived [Shellfish] Allergy Unknown Verified 04/12/17 15:20 sucralfate [From Carafate] Allergy Swelling Verified 04/12/17 15:20 Sulfa (Sulfonamide Allergy Anaphylaxis Verified 04/12/17 15:20 Antibiotics) tree nut [Nut] Allergy Swelling Verified 04/12/17 15:20 oxycodone [From Percocet] AdvReac Severe Swelling; Verified 04/12/17 15:20 (WAS ABLE TO TAKE ALONG WITH BENADRYL) Review of Systems ROS Statement: Those systems with pertinent positive or pertinent negative responses have been documented in the HPI. ROS Other: All systems not noted in ROS Statement are negative. Past Medical History Past Medical History: Asthma, Diabetes Mellitus, GERD/Reflux, Hyperlipidemia, Hypertension, Osteoarthritis (OA), Pneumonia Additional Past Medical History / Comment(s): NIDDM. diabetic neuropathy eli feet, migraines, cervical disc disease, DDD, eli tinnitis, arthiritis bilateral shoulders, poss fibromyalgia-pt in process of being diagnosed, seasonal allergies, IBS, HX R arm fx yrs ago, R ovarian cyst, hiatal hernia, UTIs, urinary calculus, pancreatitis x 2, stomach ulcer. History of Any Multi-Drug Resistant Organisms: C-DIFF Date of last positivie culture/infection: 2012 MDRO Source:: stool Past Surgical History: Appendectomy, Bariatric Surgery, Cholecystectomy, Tonsillectomy Additional Past Surgical History / Comment(s): 2011 felix-en-Y, fistula repair 2011, 2011 gastric bypass revision, bowel resection, lap gastrojejunostomy anastamosis revision, EGD and colonoscopy, cone bx-cervical cancer remove with cryo, L fallopian tube removed due to cyst, picc line in and out, CERVICAL FUSION 12/21/16. [facility]. Past Anesthesia/Blood Transfusion Reactions: Family History of Problems w/ Anesthesia, Motion Sickness, Postoperative Nausea & Vomiting (PONV) Additional Past Anesthesia/Blood Transfusion Reaction / Comment(s): Pt states she has never recieved blood. FAMILY HX PONV. Past Psychological History: Anxiety, Depression Smoking Status: Never smoker Past Alcohol Use History: None Reported Past Drug Use History: Marijuana - Past Family History Brother(s) Family Medical History: Deep Vein Thrombosis (DVT) Father Family Medical History: Cancer Additional Family Medical History / Comment(s): Father had poss colon and lung cancer and at age 73yrs. Mother Family Medical History: Coronary Artery Disease (CAD), Diabetes Mellitus, Deep Vein Thrombosis (DVT), Hypertension Additional Family Medical History / Comment(s): Mother is alive and 73 yrs old. General Exam Limitations: no limitations General appearance: alert, in no apparent distress, other (Nontoxic appearing) Head exam: Present: atraumatic, normocephalic, normal inspection Eye exam: Present: normal appearance, PERRL, EOMI. Absent: scleral icterus, conjunctival injection, periorbital swelling ENT exam: Present: normal exam, mucous membranes moist Neck exam: Present: normal inspection. Absent: tenderness, meningismus, lymphadenopathy Respiratory exam: Present: normal lung sounds bilaterally. Absent: respiratory distress, wheezes, rales, rhonchi, stridor Cardiovascular Exam: Present: regular rate, normal rhythm, normal heart sounds. Absent: systolic murmur, diastolic murmur, rubs, gallop, clicks GI/Abdominal exam: Present: soft, normal bowel sounds, other (Evidence of previous abdominal surgery. Soft. No peritoneal signs. Some generalized tenderness in all 4 quadrants. No rebound tenderness.). Absent: distended, tenderness, guarding, rebound, rigid Extremities exam: Present: normal inspection, full ROM, normal capillary refill. Absent: tenderness, pedal edema, joint swelling, calf tenderness Back exam: Present: normal inspection Neurological exam: Present: alert, oriented X3, CN II-XII intact Psychiatric exam: Present: normal affect, normal mood Skin exam: Present: warm, dry, intact, normal color. Absent: rash Course Vital Signs 04/12/17 04/12/17 04/12/17 15:17 17:30 19:01 Temperature 98.3 F Pulse Rate 68 61 71 Respiratory 18 16 16 Rate Blood Pressure 97/55 101/69 105/79 O2 Sat by Pulse 100 99 97 Oximetry 04/12/17 21:05 Temperature 98.7 F Pulse Rate 65 Respiratory 16 Rate Blood Pressure 95/55 O2 Sat by Pulse 97 Oximetry Medical Decision Making - Medical Decision Making Patient is a 46-year-old female who presents for evaluation for nausea vomiting and diarrhea. Is having generalized abdominal pain which seems to be worse in the left upper quadrant. Bariatric surgery patient. [place] states having sore throat and burning to her throat. We'll order CT abdomen and pelvis without IV or oral contrast secondary to the anaphylaxis. Abdominal labs. Urinalysis. GI cocktail. -Reviewed laboratory studies. Hyperchloremia. Low bicarb at 15. No ketones in the urine. Electrolytic within normal limits. IVF infusing. No leukocytosis. Awaiting CT. 1734: CT evidence of SB intussusception. Discussed the case with Dr. Castillo. Familiar with the patient. Discussed history and workup. Dr. Castillo does not manage this problem. He discussed that she has an appointment with her bariatric surgeon in May. Recommending discussing the case with surgery business analyst sales operations. I discussed this with the patient. The patient states that her bariatric surgeon is in between 2 locations at this time. He is to be at [place] [facility]. [facility] is yet to have started. This is why she is been unable to see her bariatric surgeon for reevaluation. Page to Dr. Sparks. 1744: Spoke with Dr. Sparks - recommending transferring the pt where the pt's bariatric surgeon has operating privileges. Discsused with the pt. Provided a phone number to call the answering service for the pt's surgeon Dr. Bailey. 1800: Spoke with call service for patient of Dr. Bailey. Confirmed that Dr. Bailey still operates out of [place]. Page to [place] for transfer. Discussed with patient. She states that she is having some redness around the site where the morphine was injected. Ordered 25 mg IV Benadryl. 1824: Spoke with Dr. Bailey. Concerned that the pt is not stable for transfer with the bicarb being 15. Requesting lactic acid and gas. At this point in time , not willing to accept pt. - No lactic acidosis. No significant acidosis. 2049: Discussed the case with Dr. Sparks. Dr. Contreras, his partner who does bariatrics, is out of town. Concern of Dr. Sparks is that he would not be able to manage this pt in the event of acute decompensation. Discussed LA and blood gas. Repeated BMP which showed improved bicarb level. Pg to Dr. Bailey at [place] to discuss further. 2100: Discussed the case with Dr. Bailey. Discussed the repeat laboratory findings. I discussed the conversation with Dr. Sparks. Dr. Bailey agrees to transfer at this time. I had the conversation with the patient was amenable to transfer as well. She states that she gets severe motion sickness with long car rides. Requesting something for motion sickness. I mentioned Antivert and she stated that she's had that before and is requesting a prior to her discharge. Her abdomen remained soft and non-peritoneal. She is hemodynamically stable. There is no change in her symptoms at this time. Patient to be transferred down to [place] for higher level of care. - Lab Data Result diagrams: 04/12/17 17:05 04/12/17 20:10 Lab Results 04/12/17 04/12/17 04/12/17 Range/Units 16:15 17:05 17:05 WBC 8.8 (3.8-10.6) k/uL RBC 4.21 (3.80-5.40) m/uL Hgb 11.2 L (11.4-16.0) gm/dL Hct 36.5 (34.0-46.0) % MCV 86.6 D (80.0-100.0) fL MCH 26.5 (25.0-35.0) pg MCHC 30.6 L (31.0-37.0) g/dL RDW 16.1 H (11.5-15.5) % Plt Count 325 (150-450) k/uL Neutrophils % 53 % Lymphocytes % 36 % Monocytes % 5 % Eosinophils % 2 % Basophils % 1 % Neutrophils # 4.7 (1.3-7.7) k/uL Lymphocytes # 3.2 (1.0-4.8) k/uL Monocytes # 0.4 (0-1.0) k/uL Eosinophils # 0.2 (0-0.7) k/uL Basophils # 0.1 (0-0.2) k/uL Hypochromasia Marked Anisocytosis Slight VBG pH (7.31-7.41) VBG pCO2 (37-51) mmHg VBG HCO3 (24-28) mmol/L Sodium 143 (137-145) mmol/L Potassium 4.3 (3.5-5.1) mmol/L Chloride 116 H (98-107) mmol/L Carbon Dioxide 15 L (22-30) mmol/L Anion Gap 12 mmol/L BUN 14 (7-17) mg/dL Creatinine 0.80 (0.52-1.04) mg/dL Est GFR (MDRD) Af Amer >60 (>60 ml/min/1.73 sqM) Est GFR (MDRD) Non-Af >60 (>60 ml/min/1.73 sqM) Glucose 85 (74-99) mg/dL Plasma Lactic Acid Adam (0.7-2.0) mmol/L Calcium 9.0 (8.4-10.2) mg/dL Magnesium 1.8 (1.6-2.3) mg/dL Total Bilirubin 0.4 (0.2-1.3) mg/dL AST 37 H (14-36) U/L ALT 44 (9-52) U/L Alkaline Phosphatase 74 (38-126) U/L Total Protein 7.0 (6.3-8.2) g/dL Albumin 3.9 (3.5-5.0) g/dL Lipase 67 (23-300) U/L Urine Color Colorless Urine Appearance Cloudy H (Clear) Urine pH 6.5 (5.0-8.0) Ur Specific Gilbert 1.002 (1.001-1.035) Urine Protein Negative (Negative) Urine Glucose (UA) Negative (Negative) Urine Ketones Negative (Negative) Urine Blood Negative (Negative) Urine Nitrite Negative (Negative) Urine Bilirubin Negative (Negative) Urine Urobilinogen <2.0 (<2.0) mg/dL Ur Leukocyte Esterase Moderate H (Negative) Urine RBC 1 (0-5) /hpf Urine WBC 4 (0-5) /hpf Ur Squamous Epith Cells 4 (0-4) /hpf Urine Bacteria Rare H (None) /hpf C. difficile (EIA) Intrp (Negative) 04/12/17 04/12/17 04/12/17 Range/Units 17:43 18:58 18:58 WBC (3.8-10.6) k/uL RBC (3.80-5.40) m/uL Hgb (11.4-16.0) gm/dL Hct (34.0-46.0) % MCV (80.0-100.0) fL MCH (25.0-35.0) pg MCHC (31.0-37.0) g/dL RDW (11.5-15.5) % Plt Count (150-450) k/uL Neutrophils % % Lymphocytes % % Monocytes % % Eosinophils % % Basophils % % Neutrophils # (1.3-7.7) k/uL Lymphocytes # (1.0-4.8) k/uL Monocytes # (0-1.0) k/uL Eosinophils # (0-0.7) k/uL Basophils # (0-0.2) k/uL Hypochromasia Anisocytosis VBG pH 7.32 (7.31-7.41) VBG pCO2 39 (37-51) mmHg VBG HCO3 20 L (24-28) mmol/L Sodium (137-145) mmol/L Potassium (3.5-5.1) mmol/L Chloride (98-107) mmol/L Carbon Dioxide (22-30) mmol/L Anion Gap mmol/L BUN (7-17) mg/dL Creatinine (0.52-1.04) mg/dL Est GFR (MDRD) Af Amer (>60 ml/min/1.73 sqM) Est GFR (MDRD) Non-Af (>60 ml/min/1.73 sqM) Glucose (74-99) mg/dL Plasma Lactic Acid Adam 0.7 (0.7-2.0) mmol/L Calcium (8.4-10.2) mg/dL Magnesium (1.6-2.3) mg/dL Total Bilirubin (0.2-1.3) mg/dL AST (14-36) U/L ALT (9-52) U/L Alkaline Phosphatase (38-126) U/L Total Protein (6.3-8.2) g/dL Albumin (3.5-5.0) g/dL Lipase (23-300) U/L Urine Color Urine Appearance (Clear) Urine pH (5.0-8.0) Ur Specific Gilbert (1.001-1.035) Urine Protein (Negative) Urine Glucose (UA) (Negative) Urine Ketones (Negative) Urine Blood (Negative) Urine Nitrite (Negative) Urine Bilirubin (Negative) Urine Urobilinogen (<2.0) mg/dL Ur Leukocyte Esterase (Negative) Urine RBC (0-5) /hpf Urine WBC (0-5) /hpf Ur Squamous Epith Cells (0-4) /hpf Urine Bacteria (None) /hpf C. difficile (EIA) Intrp Negative (Negative) 04/12/17 Range/Units 20:10 WBC (3.8-10.6) k/uL RBC (3.80-5.40) m/uL Hgb (11.4-16.0) gm/dL Hct (34.0-46.0) % MCV (80.0-100.0) fL MCH (25.0-35.0) pg MCHC (31.0-37.0) g/dL RDW (11.5-15.5) % Plt Count (150-450) k/uL Neutrophils % % Lymphocytes % % Monocytes % % Eosinophils % % Basophils % % Neutrophils # (1.3-7.7) k/uL Lymphocytes # (1.0-4.8) k/uL Monocytes # (0-1.0) k/uL Eosinophils # (0-0.7) k/uL Basophils # (0-0.2) k/uL Hypochromasia Anisocytosis VBG pH (7.31-7.41) VBG pCO2 (37-51) mmHg VBG HCO3 (24-28) mmol/L Sodium 144 (137-145) mmol/L Potassium 4.1 (3.5-5.1) mmol/L Chloride 115 H (98-107) mmol/L Carbon Dioxide 20 L (22-30) mmol/L Anion Gap 9 mmol/L BUN 13 (7-17) mg/dL Creatinine 0.70 (0.52-1.04) mg/dL Est GFR (MDRD) Af Amer >60 (>60 ml/min/1.73 sqM) Est GFR (MDRD) Non-Af >60 (>60 ml/min/1.73 sqM) Glucose 90 (74-99) mg/dL Plasma Lactic Acid Adam (0.7-2.0) mmol/L Calcium 8.9 (8.4-10.2) mg/dL Magnesium (1.6-2.3) mg/dL Total Bilirubin (0.2-1.3) mg/dL AST (14-36) U/L ALT (9-52) U/L Alkaline Phosphatase (38-126) U/L Total Protein (6.3-8.2) g/dL Albumin (3.5-5.0) g/dL Lipase (23-300) U/L Urine Color Urine Appearance (Clear) Urine pH (5.0-8.0) Ur Specific Gilbert (1.001-1.035) Urine Protein (Negative) Urine Glucose (UA) (Negative) Urine Ketones (Negative) Urine Blood (Negative) Urine Nitrite (Negative) Urine Bilirubin (Negative) Urine Urobilinogen (<2.0) mg/dL Ur Leukocyte Esterase (Negative) Urine RBC (0-5) /hpf Urine WBC (0-5) /hpf Ur Squamous Epith Cells (0-4) /hpf Urine Bacteria (None) /hpf C. difficile (EIA) Intrp (Negative) Disposition Clinical Impression: Intussusception, Bariatric surgery status, Dehydration Disposition: OTHER INSTITUTION NOT DEFINED Condition: Undetermined Referrals: Macy Knight MD [Primary Care Provider] - 1-2 days - Out of Hospital Transfer - Req. Specs Out of Hospital Transfer - Requested Specifics: Other Emergency Center ([facility]
[2017-04-12] MEDS ORDERED: diphenhydrAMINE 50 MG/ML 1 ML VIAL IVP STA (18:01)
[2017-04-12 19:01] VITALS: RESP 16
[2017-04-12 19:19] LABS: VBG PH 7.32 (7.31-7.41)
[2017-04-12 20:38] LABS: Anion Gap 9 mmol/L; Blood Urea Nitrogen 13 mg/dL (7-17); Calcium 8.9 mg/dL (8.4-10.2); Carbon Dioxide 20 mmol/L (22-30); Chloride 115 mmol/L (98-107); Glucose 90 mg/dL (74-99); Non-African American GFR(MDRD) >60 (>60 ml/min/1.73 sqM); Potassium 4.1 mmol/L (3.5-5.1); Sodium 144 mmol/L (137-145)
[2017-04-12] MEDS ORDERED: MECLIZINE 12.5 MG TAB PO STA (21:08)
[2017-04-12 21:09] VITALS: TEMP 98.7
[2017-04-12] MEDS ORDERED: SODIUM CHLORIDE 0.9% 1,000 ML IV SCH (21:30)
[2017-04-12] MEDS ORDERED: HYDROcodone/APAP 5-325MG 1 EACH TAB PO STA (22:33)
[2017-04-12 23:38] VITALS: BP 110/75; PULSE 65
== END 2017-04-12 23:40 | disposition short-term general hospital (02) ==
LOC: EC 15:05
DX: K56.1 Intussusception (principal); E86.0 Dehydration; K21.9 Gastro-esophageal reflux disease without esophagitis; I10 Essential (primary) hypertension; M19.90 Unspecified osteoarthritis, unspecified site; E11.40 Type 2 diabetes mellitus with diabetic neuropathy, unspecified; F32.9 Major depressive disorder, single episode, unspecified; F41.9 Anxiety disorder, unspecified; Z98.84 Bariatric surgery status; Z90.49 Acquired absence of other specified parts of digestive tract; Z88.5 Allergy status to narcotic agent; Z91.041 Radiographic dye allergy status; Z91.048 Other nonmedicinal substance allergy status; Z88.2 Allergy status to sulfonamides; Z91.018 Allergy to other foods; Z91.013 Allergy to seafood; Z88.8 Allergy status to other drugs, medicaments and biological substances; Z91.010 Allergy to peanuts; Z79.82 Long term (current) use of aspirin; Z79.84 Long term (current) use of oral hypoglycemic drugs; Z79.899 Other long term (current) drug therapy
CPT/HCPCS: 99285; 96374; 96375 ×3; 96376; 96361 ×2; 36415; 80053; 80048; 82803; 83605; 83690; 83735; 85025; 81001; 87324; 74176; J2270; J1200; J2405

== ENCOUNTER 2017-05-04 03:19 | Emergency (ER) | payer OTHER ==
[2017-05-04] MEDS ORDERED: SODIUM CHLORIDE 0.9% 1,000 ML IV STA (03:29)
[2017-05-04] MEDS ORDERED: ONDANSETRON 4 MG/2 ML VIAL IVP STA (03:39)
--- NOTE | 2017-05-04 03:39 | ED ---
Syncope HPI - General Stated Complaint: Poss stroke Time Seen by Provider: 05/04/17 03:22 Source: patient, EMS Limitations: no limitations - History of Present Illness Initial Comments: This patient is a 46-year-old woman brought in after syncopal episode at home this morning. The patient states that she had gotten out of bed and she had gone to unlock a dog gate in the house. As she was walking across the house she states that her vision started alfredo out and she felt like her ears were ringing or buzzing, and then she woke up on the floor. The patient's had reportedly told her that he saw her starting to go down but could not reach her and time. There was no reported tonic-clonic activity. No loss of continence. The patient does state that when she fell she believes she hit the lower portion of her abdomen. She has some mild pain there. Patient denies chest pain, dyspnea, diaphoresis, nausea or vomiting. MD Complaint: loss of consciousness, collapsed -: minutes(s) Prodromal Symptoms: vision changes, other (Ears buzzing) -: second(s) Witnessed: yes - by bystander Injuries Sustained Associated with Event: Abdomen Current Symptoms: back to baseline Context: getting out of bed Treatments Prior to Arrival: none - Related Data Home Medications Medication Instructions Recorded Confirmed Docusate [Colace] 100 mg PO DAILY 12/29/15 05/04/17 Cetirizine HCl [Zyrtec] 10 mg PO BID 05/23/16 05/04/17 Furosemide [Lasix] 20 mg PO BID 09/19/16 05/04/17 LORazepam [Ativan] 0.5 mg PO DAILY PRN 01/01/17 05/04/17 Hydrocodone/Acetaminophen [[place] 1 tab PO BID PRN 03/06/17 05/04/17 5-325] Ibuprofen [Motrin] 600 mg PO Q6HR PRN 03/29/17 05/04/17 Ondansetron [Zofran] 4 mg PO Q8HR PRN 03/29/17 05/04/17 diphenhydrAMINE [Benadryl] 50 mg PO QID PRN 03/29/17 05/04/17 hydrOXYzine HCL [Atarax] 75 mg PO HS PRN 03/29/17 05/04/17 metFORMIN HCL [Glucophage] 250 mg PO DAILY 03/29/17 05/04/17 traMADol HCl [Ultram] 50 mg PO Q8H PRN 03/29/17 05/04/17 Diazepam [Valium] 20 mg PO HS PRN 04/12/17 05/04/17 Escitalopram Oxalate [Lexapro] 10 mg PO BID 05/04/17 05/04/17 Propranolol HCl [Inderal] 60 mg PO HS 05/04/17 05/04/17 Temazepam 30 mg PO HS 05/04/17 05/04/17 Allergies Allergy/AdvReac Type Severity Reaction Status Date / Time apricot Allergy Unknown Verified 05/04/17 07:51 barium sulfate Allergy Anaphylaxis Verified 05/04/17 07:51 [From Readi-Cat] codeine Allergy Anaphylaxis Verified 05/04/17 07:51 hydrocodone [From Lortab] Allergy Swelling Verified 05/04/17 07:51 Iodinated Contrast- Oral and Allergy Anaphylaxis Verified 05/04/17 07:51 IV Dye iodine Allergy Rash/Hives Verified 05/04/17 07:51 peach Allergy Swelling Verified 05/04/17 07:51 peanut Allergy Swelling Verified 05/04/17 07:51 peanut oil Allergy Anaphylaxis Verified 05/04/17 07:51 shellfish derived [Shellfish] Allergy Unknown Verified 05/04/17 07:51 sucralfate [From Carafate] Allergy Swelling Verified 05/04/17 07:51 Sulfa (Sulfonamide Allergy Anaphylaxis Verified 05/04/17 07:51 Antibiotics) tree nut [Nut] Allergy Swelling Verified 05/04/17 07:51 oxycodone [From Percocet] AdvReac Severe Swelling; Verified 05/04/17 07:51 (WAS ABLE TO TAKE ALONG WITH BENADRYL) Review of Systems ROS Statement: Those systems with pertinent positive or pertinent negative responses have been documented in the HPI. ROS Other: All systems not noted in ROS Statement are negative. Constitutional: Denies: fever, chills Eyes: Reports: as per HPI, vision change Respiratory: Denies: cough, dyspnea Cardiovascular: Reports: syncope. Denies: chest pain, palpitations, orthopnea, edema Gastrointestinal: Reports: as per HPI, abdominal pain. Denies: vomiting, diarrhea, melena, hematochezia Genitourinary: Denies: dysuria, hematuria Musculoskeletal: Denies: back pain Skin: Denies: rash Neurological: Denies: headache, weakness, numbness, paresthesias Past Medical History Past Medical History: Asthma, Diabetes Mellitus, GERD/Reflux, Hyperlipidemia, Hypertension, Osteoarthritis (OA), Pneumonia Additional Past Medical History / Comment(s): NIDDM. diabetic neuropathy eli feet, migraines, cervical disc disease, DDD, eli tinnitis, arthiritis bilateral shoulders, poss fibromyalgia-pt in process of being diagnosed, seasonal allergies, IBS, HX R arm fx yrs ago, R ovarian cyst, hiatal hernia, UTIs, urinary calculus, pancreatitis x 2, stomach ulcer. History of Any Multi-Drug Resistant Organisms: C-DIFF Date of last positivie culture/infection: 2012 MDRO Source:: stool Past Surgical History: Appendectomy, Bariatric Surgery, Cholecystectomy, Tonsillectomy Additional Past Surgical History / Comment(s): 2010 felix-en-Y, fistula repair 2011, 2011 gastric bypass revision, bowel resection, lap gastrojejunostomy anastamosis revision, EGD and colonoscopy, cone bx-cervical cancer remove with cryo, L fallopian tube removed due to cyst, picc line in and out, CERVICAL FUSION 12/21/16. [facility]. Past Anesthesia/Blood Transfusion Reactions: Family History of Problems w/ Anesthesia, Motion Sickness, Postoperative Nausea & Vomiting (PONV) Additional Past Anesthesia/Blood Transfusion Reaction / Comment(s): Pt states she has never recieved blood. FAMILY HX PONV. Past Psychological History: Anxiety, Depression Smoking Status: Never smoker Past Alcohol Use History: None Reported Past Drug Use History: Marijuana - Past Family History Brother(s) Family Medical History: Deep Vein Thrombosis (DVT) Father Family Medical History: Cancer Additional Family Medical History / Comment(s): Father had poss colon and lung cancer and at age 73yrs. Mother Family Medical History: Coronary Artery Disease (CAD), Diabetes Mellitus, Deep Vein Thrombosis (DVT), Hypertension Additional Family Medical History / Comment(s): Mother is alive and 73 yrs old. General Exam General appearance: alert, in no apparent distress Head exam: Present: atraumatic, normocephalic Eye exam: Present: normal appearance. Absent: scleral icterus, conjunctival injection ENT exam: Present: mucous membranes dry Neck exam: Present: normal inspection, full ROM. Absent: tenderness Respiratory exam: Present: normal lung sounds bilaterally. Absent: respiratory distress, wheezes, rales, rhonchi, stridor Cardiovascular Exam: Present: regular rate, normal rhythm, normal heart sounds. Absent: systolic murmur, diastolic murmur, rubs, gallop GI/Abdominal exam: Present: soft. Absent: distended, tenderness, guarding, rebound, rigid, mass Extremities exam: Present: normal inspection, normal capillary refill. Absent: pedal edema, calf tenderness Back exam: Present: normal inspection. Absent: CVA tenderness (R), CVA tenderness (L) Skin exam: Present: warm, dry, intact, normal color. Absent: rash Course Vital Signs 05/04/17 05/04/17 05/04/17 03:26 04:52 05:43 Temperature 98.1 F Pulse Rate 70 65 63 Respiratory 16 16 16 Rate Blood Pressure 90/64 101/66 105/62 O2 Sat by Pulse 96 96 94 L Oximetry 05/04/17 05/04/17 06:12 07:40 Temperature Pulse Rate 75 61 Respiratory 18 18 Rate Blood Pressure 106/64 96/64 O2 Sat by Pulse 96 97 Oximetry EKG Findings - EKG Results: EKG: interpreted by ERMD, sinus rhythm (Rate approximately 67 bpm), normal axis , normal QRS, normal ST/T Medical Decision Making - Lab Data Result diagrams: 05/04/17 03:26 05/04/17 03:26 Lab Results 05/04/17 05/04/17 05/04/17 Range/Units 03:21 03:26 03:26 WBC 11.1 H (3.8-10.6) k/uL RBC 3.99 (3.80-5.40) m/uL Hgb 10.4 L (11.4-16.0) gm/dL Hct 31.2 L (34.0-46.0) % MCV 78.3 L D (80.0-100.0) fL MCH 26.0 (25.0-35.0) pg MCHC 33.2 (31.0-37.0) g/dL RDW 15.8 H (11.5-15.5) % Plt Count 378 (150-450) k/uL Neutrophils % 53 % Lymphocytes % 36 % Monocytes % 6 % Eosinophils % 2 % Basophils % 1 % Neutrophils # 5.9 (1.3-7.7) k/uL Lymphocytes # 4.0 (1.0-4.8) k/uL Monocytes # 0.6 (0-1.0) k/uL Eosinophils # 0.3 (0-0.7) k/uL Basophils # 0.1 (0-0.2) k/uL Hypochromasia Slight PT (9.0-12.0) sec INR (<1.2) APTT (22.0-30.0) sec D-Dimer (<0.60) mg/L FEU Sodium (137-145) mmol/L Potassium (3.5-5.1) mmol/L Chloride (98-107) mmol/L Carbon Dioxide (22-30) mmol/L Anion Gap mmol/L BUN (7-17) mg/dL Creatinine (0.52-1.04) mg/dL Est GFR (MDRD) Af Amer (>60 ml/min/1.73 sqM) Est GFR (MDRD) Non-Af (>60 ml/min/1.73 sqM) Glucose (74-99) mg/dL POC Glucose (mg/dL) 81 (75-99) mg/dL POC Glu Professor Of Voice ID Brendan, [place] Calcium (8.4-10.2) mg/dL Total Bilirubin (0.2-1.3) mg/dL AST (14-36) U/L ALT (9-52) U/L Alkaline Phosphatase (38-126) U/L Total Creatine Kinase 95 (30-135) U/L CK-MB (CK-2) 0.8 (0.0-2.4) ng/mL CK-MB (CK-2) Rel Index 0.8 Troponin I <0.012 (0.000-0.034) ng/mL Total Protein (6.3-8.2) g/dL Albumin (3.5-5.0) g/dL Urine Color Urine Appearance (Clear) Urine pH (5.0-8.0) Ur Specific [place] (1.001-1.035) Urine Protein (Negative) Urine Glucose (UA) (Negative) Urine Ketones (Negative) Urine Blood (Negative) Urine Nitrite (Negative) Urine Bilirubin (Negative) Urine Urobilinogen (<2.0) mg/dL Ur Leukocyte Esterase (Negative) Urine RBC (0-5) /hpf Urine WBC (0-5) /hpf Ur Squamous Epith Cells (0-4) /hpf Hyaline Casts (0-2) /lpf Urine Mucus (None) /hpf Urine Opiates Screen (NotDetected) Ur Oxycodone Screen (NotDetected) Urine Methadone Screen (NotDetected) Ur Propoxyphene Screen (NotDetected) Ur Barbiturates Screen (NotDetected) U Tricyclic Antidepress (NotDetected) Ur Phencyclidine Scrn (NotDetected) Ur Amphetamines Screen (NotDetected) U Methamphetamines Scrn (NotDetected) U Benzodiazepines Scrn (NotDetected) Urine Cocaine Screen (NotDetected) U Marijuana (THC) Screen (NotDetected) 05/04/17 05/04/17 05/04/17 Range/Units 03:26 03:26 03:26 WBC (3.8-10.6) k/uL RBC (3.80-5.40) m/uL Hgb (11.4-16.0) gm/dL Hct (34.0-46.0) % MCV (80.0-100.0) fL MCH (25.0-35.0) pg MCHC (31.0-37.0) g/dL RDW (11.5-15.5) % Plt Count (150-450) k/uL Neutrophils % % Lymphocytes % % Monocytes % % Eosinophils % % Basophils % % Neutrophils # (1.3-7.7) k/uL Lymphocytes # (1.0-4.8) k/uL Monocytes # (0-1.0) k/uL Eosinophils # (0-0.7) k/uL Basophils # (0-0.2) k/uL Hypochromasia PT 10.7 (9.0-12.0) sec INR 1.1 (<1.2) APTT 22.8 (22.0-30.0) sec D-Dimer 0.68 H (<0.60) mg/L FEU Sodium 138 (137-145) mmol/L Potassium 3.4 L (3.5-5.1) mmol/L Chloride 105 (98-107) mmol/L Carbon Dioxide 20 L (22-30) mmol/L Anion Gap 13 mmol/L BUN 27 H (7-17) mg/dL Creatinine 1.20 H (0.52-1.04) mg/dL Est GFR (MDRD) Af Amer 59 (>60 ml/min/1.73 sqM) Est GFR (MDRD) Non-Af 48 (>60 ml/min/1.73 sqM) Glucose 74 (74-99) mg/dL POC Glucose (mg/dL) (75-99) mg/dL POC Glu Professor Of Voice ID Calcium 8.5 (8.4-10.2) mg/dL Total Bilirubin 0.3 (0.2-1.3) mg/dL AST 31 (14-36) U/L ALT 45 (9-52) U/L Alkaline Phosphatase 70 (38-126) U/L Total Creatine Kinase (30-135) U/L CK-MB (CK-2) (0.0-2.4) ng/mL CK-MB (CK-2) Rel Index Troponin I (0.000-0.034) ng/mL Total Protein 6.7 (6.3-8.2) g/dL Albumin 3.8 (3.5-5.0) g/dL Urine Color Light Yellow Urine Appearance Clear (Clear) Urine pH 5.0 (5.0-8.0) Ur Specific [place] 1.011 (1.001-1.035) Urine Protein Negative (Negative) Urine Glucose (UA) Negative (Negative) Urine Ketones Negative (Negative) Urine Blood Negative (Negative) Urine Nitrite Negative (Negative) Urine Bilirubin Negative (Negative) Urine Urobilinogen <2.0 (<2.0) mg/dL Ur Leukocyte Esterase Trace H (Negative) Urine RBC <1 (0-5) /hpf Urine WBC <1 (0-5) /hpf Ur Squamous Epith Cells <1 (0-4) /hpf Hyaline Casts 10 H (0-2) /lpf Urine Mucus Rare H (None) /hpf Urine Opiates Screen (NotDetected) Ur Oxycodone Screen (NotDetected) Urine Methadone Screen (NotDetected) Ur Propoxyphene Screen (NotDetected) Ur Barbiturates Screen (NotDetected) U Tricyclic Antidepress (NotDetected) Ur Phencyclidine Scrn (NotDetected) Ur Amphetamines Screen (NotDetected) U Methamphetamines Scrn (NotDetected) U Benzodiazepines Scrn (NotDetected) Urine Cocaine Screen (NotDetected) U Marijuana (THC) Screen (NotDetected) 05/04/17 Range/Units 03:26 WBC (3.8-10.6) k/uL RBC (3.80-5.40) m/uL Hgb (11.4-16.0) gm/dL Hct (34.0-46.0) % MCV (80.0-100.0) fL MCH (25.0-35.0) pg MCHC (31.0-37.0) g/dL RDW (11.5-15.5) % Plt Count (150-450) k/uL Neutrophils % % Lymphocytes % % Monocytes % % Eosinophils % % Basophils % % Neutrophils # (1.3-7.7) k/uL Lymphocytes # (1.0-4.8) k/uL Monocytes # (0-1.0) k/uL Eosinophils # (0-0.7) k/uL Basophils # (0-0.2) k/uL Hypochromasia PT (9.0-12.0) sec INR (<1.2) APTT (22.0-30.0) sec D-Dimer (<0.60) mg/L FEU Sodium (137-145) mmol/L Potassium (3.5-5.1) mmol/L Chloride (98-107) mmol/L Carbon Dioxide (22-30) mmol/L Anion Gap mmol/L BUN (7-17) mg/dL Creatinine (0.52-1.04) mg/dL Est GFR (MDRD) Af Amer (>60 ml/min/1.73 sqM) Est GFR (MDRD) Non-Af (>60 ml/min/1.73 sqM) Glucose (74-99) mg/dL POC Glucose (mg/dL) (75-99) mg/dL POC Glu Professor Of Voice ID Calcium (8.4-10.2) mg/dL Total Bilirubin (0.2-1.3) mg/dL AST (14-36) U/L ALT (9-52) U/L Alkaline Phosphatase (38-126) U/L Total Creatine Kinase (30-135) U/L CK-MB (CK-2) (0.0-2.4) ng/mL CK-MB (CK-2) Rel Index Troponin I (0.000-0.034) ng/mL Total Protein (6.3-8.2) g/dL Albumin (3.5-5.0) g/dL Urine Color Urine Appearance (Clear) Urine pH (5.0-8.0) Ur Specific [place] (1.001-1.035) Urine Protein (Negative) Urine Glucose (UA) (Negative) Urine Ketones (Negative) Urine Blood (Negative) Urine Nitrite (Negative) Urine Bilirubin (Negative) Urine Urobilinogen (<2.0) mg/dL Ur Leukocyte Esterase (Negative) Urine RBC (0-5) /hpf Urine WBC (0-5) /hpf Ur Squamous Epith Cells (0-4) /hpf Hyaline Casts (0-2) /lpf Urine Mucus (None) /hpf Urine Opiates Screen Not Detected (NotDetected) Ur Oxycodone Screen Not Detected (NotDetected) Urine Methadone Screen Not Detected (NotDetected) Ur Propoxyphene Screen Not Detected (NotDetected) Ur Barbiturates Screen Not Detected (NotDetected) U Tricyclic Antidepress Not Detected (NotDetected) Ur Phencyclidine Scrn Not Detected (NotDetected) Ur Amphetamines Screen Not Detected (NotDetected) U Methamphetamines Scrn Not Detected (NotDetected) U Benzodiazepines Scrn Detected H (NotDetected) Urine Cocaine Screen Not Detected (NotDetected) U Marijuana (THC) Screen Not Detected (NotDetected) Disposition Clinical Impression: Syncope Disposition: HOME SELF-CARE Condition: Good Instructions: Syncope (ED) Referrals: Macy Knight MD [Primary Care Provider] - 1-2 days
[2017-05-04 03:41] LABS: Glucose,Whole Blood 81 mg/dL (75-99)
[2017-05-04 03:44] LABS: Basophils # (A) 0.1 k/uL (0-0.2); Basophils % (A) 1 %; CH 25.2; CHCM 32.2; Eosinophils # (A) 0.3 k/uL (0-0.7); Eosinophils % (A) 2 %; HCT 31.2 % (34.0-46.0); HGB 10.4 gm/dL (11.4-16.0); Hypochromasia Slight; Luc # (Auto) 0.27; Luc % (Auto) 2; Lymphocytes % (A) 36 %; MCHC 33.2 g/dL (31.0-37.0); Mean Platelet Volume 6.6; Monocytes # (A) 0.6 k/uL (0-1.0); Monocytes % (A) 6 %; Neutrophils # (A) 5.9 k/uL (1.3-7.7); Neutrophils % (A) 53 %; RBC 3.99 m/uL (3.80-5.40); RDW 15.8 % (11.5-15.5); WBC 11.1 k/uL (3.8-10.6); WBC (Perox) 11.13
[2017-05-04 03:46] LABS: MCV 78.3 fL (80.0-100.0)
[2017-05-04 03:47] VITALS: TEMP 98.1
[2017-05-04 03:48] LABS: Appearance,Urine Clear (Clear); Bilirubin,Urine Negative (Negative); Glucose,Urine (UA) Negative (Negative); Ketones,Urine Negative (Negative); Leukocyte Esterase,Urine Trace (Negative); Mucus,Urine Rare /hpf; Nitrite,Urine Negative (Negative); Particle Count 4149; Protein,Urine Negative (Negative); RBC,Urine <1 /hpf (0-5); Specific Gravity,Urine 1.011 (1.001-1.035); Squamous Epithelial Cell,Urine <1 /hpf (0-4); UA Billing (MACRO vs. MICRO) MICRO; Urobilinogen,Urine <2.0 mg/dL (<2.0); WBC,Urine <1 /hpf (0-5)
[2017-05-04 03:49] LABS: Calcium 8.5 mg/dL (8.4-10.2); Potassium 3.4 mmol/L (3.5-5.1); Total Bilirubin 0.3 mg/dL (0.2-1.3); Total Protein 6.7 g/dL (6.3-8.2)
[2017-05-04 03:58] LABS: INR 1.1 (<1.2); Partial Thromboplastin Time 22.8 sec (22.0-30.0); Prothrombin Time 10.7 sec (9.0-12.0)
[2017-05-04 04:05] LABS: Creatine Kinase 95 U/L (30-135)
[2017-05-04 04:18] LABS: Creatine Kinase MB 0.8 ng/mL (0.0-2.4); Troponin I <0.012 ng/mL (0.000-0.034)
--- NOTE | 2017-05-04 04:40 | XR ---
PROCEDURE: FILM CXR 1 VIEW HISTORY: 46-year-old female with syncope. COMPARISON: Chest radiograph 01/01/2017 TECHNIQUE: Frontal view of the chest was obtained. FINDINGS: Limited by technique. Cardiomediastinal silhouette is within normal limits. No evidence of focal consolidation, pleural effusion, or pneumothorax. Lower cervical fixation hardware. Otherwise, bones are unremarkable for age. IMPRESSION: Lower cervical fixation hardware. Otherwise unremarkable single view chest.
[2017-05-04] MEDS ORDERED: diphenhydrAMINE 50 MG/ML 1 ML VIAL IVP STA (06:01)
[2017-05-04] MEDS ORDERED: FAMOTIDINE 20 MG/2 ML VIAL IV STA (06:01)
[2017-05-04] MEDS ORDERED: RX INFO: IV CONTRAST WAS GIVEN 1 EACH MISC MISCELLANE PRN (06:01)
[2017-05-04] MEDS ORDERED: methylPREDNISolone SOD SUCCI 125 MG/2 ML VIAL IV STA (06:02)
--- NOTE | 2017-05-04 07:30 | CT ---
CT CHEST FOR PULMONARY EMBOLISM. EXAMINATION TYPE: CT chest angio for PE DATE OF EXAM: 05/04/2017 INDICATION: Elevated Ddimer CT DLP: 508 mGycm, Automated exposure control for dose reduction was used. CONTRAST: Patient injected with 79 mL of Visipaque 320. COMPARISON: NONE TECHNIQUE: CT of the chest is performed on a spiral scan at 2 mm thick sections. Study is performed with intravenous contrast timed for evaluation for pulmonary embolism. This will limit additional po rtions of the evaluation. 3-D MIP images reconstructed by the technologist are reviewed on the compu ter in the coronal and sagittal planes. FINDINGS: No persistent filling defects are evident to suggest an acute pulmonary embolism. No mediastinal or hilar adenopathy enlarged by CT criteria is evident. The ascending aorta diameter at the level of the main pulmonary artery is 2.7 cm. The main pulmonary artery diameter at the bifur cation is 2.2 cm. Lung windows are clear. Limited CT section through the upper abdomen. Postsurgical changes are within the stomach. IMPRESSIONS: 1. No acute pulmonary emboli.
[2017-05-04] MEDS ORDERED: SODIUM CHLORIDE 0.9% 1,000 ML IV ONE (08:25)
[2017-05-04 09:05] VITALS: RESP 18
[2017-05-04] MEDS ORDERED: ACETAMINOPHEN TAB 325 MG TAB PO STA (09:26)
[2017-05-04 09:30] VITALS: BP 97/60; PULSE 70
== END 2017-05-04 09:44 | disposition home or self-care (01) ==
LOC: EC 03:19
DX: R55 Syncope and collapse (principal); R10.30 Lower abdominal pain, unspecified; I10 Essential (primary) hypertension; F41.9 Anxiety disorder, unspecified; F32.9 Major depressive disorder, single episode, unspecified; E11.9 Type 2 diabetes mellitus without complications; Z85.41 Personal history of malignant neoplasm of cervix uteri; Z79.84 Long term (current) use of oral hypoglycemic drugs; Z79.899 Other long term (current) drug therapy; Z88.2 Allergy status to sulfonamides; Z88.5 Allergy status to narcotic agent; Z88.8 Allergy status to other drugs, medicaments and biological substances; Z91.010 Allergy to peanuts; Z91.018 Allergy to other foods; Z91.041 Radiographic dye allergy status; Z91.048 Other nonmedicinal substance allergy status; W19.XXXA Unspecified fall, initial encounter
CPT/HCPCS: 36415; 93005; 85379; 80053; 82550; 82553; 84484; 85025; 85610; 85730; 81001; 80306; 71010; 71275; 99285; 96374; 96375 ×3; 96361 ×2; J1200; J2930; Q9967; J2405

== ENCOUNTER 2017-05-11 06:13 | Emergency (ER) | payer OTHER ==
[2017-05-11] MEDS ORDERED: ONDANSETRON 4 MG/2 ML VIAL IVP STA (06:45)
[2017-05-11 06:46] LABS: Basophils # (A) 0.1 k/uL (0-0.2); Basophils % (A) 1 %; CH 25.2; Eosinophils # (A) 0.3 k/uL (0-0.7); Eosinophils % (A) 3 %; HCT 35.6 % (34.0-46.0); HDW 3.14; HGB 11.2 gm/dL (11.4-16.0); Hypochromasia Moderate; Luc # (Auto) 0.26; Luc % (Auto) 3; Lymphocytes # (A) 4.6 k/uL (1.0-4.8); Lymphocytes % (A) 44 %; MCH 25.7 pg (25.0-35.0); MCHC 31.6 g/dL (31.0-37.0); MCV 81.3 fL (80.0-100.0); Mean Platelet Volume 6.9; Monocytes # (A) 0.6 k/uL (0-1.0); Monocytes % (A) 6 %; Neutrophils # (A) 4.6 k/uL (1.3-7.7); Neutrophils % (A) 44 %; RBC 4.38 m/uL (3.80-5.40); RDW 15.9 % (11.5-15.5); WBC 10.4 k/uL (3.8-10.6); WBC (Perox) 10.38
[2017-05-11] MEDS ORDERED: SODIUM CHLORIDE 0.9% 2,000 ML IV ONE (06:47)
--- NOTE | 2017-05-11 06:47 | ED ---
Abdominal Pain HPI - General Source: patient, EMS Mode of arrival: EMS Limitations: no limitations - History of Present Illness MD Complaint: abdominal pain Onset/Timin -: hour(s) Location: LLQ Radiation: none Migration to: no migration Severity: moderate Quality: aching Consistency: constant Improves With: nothing Worsens With: nothing Associated Symptoms: nausea <Vickey Perez - Last Filed: 05/11/17 06:45> <Robert Acosta - Last Filed: 05/11/17 08:25> - General Chief Complaint: Abdominal Pain Stated Complaint: ABD pain Time Seen by Provider: 05/11/17 06:23 - Related Data Home Medications Medication Instructions Recorded Confirmed Docusate [Colace] 100 mg PO DAILY PRN 12/29/15 05/11/17 Furosemide [Lasix] 20 mg PO BID 09/19/16 05/11/17 Hydrocodone/Acetaminophen [[place] 1 tab PO Q6H PRN 03/06/17 05/11/17 5-325] Ibuprofen [Motrin] 600 mg PO TID PRN 03/29/17 05/11/17 traMADol HCl [Ultram] 50 mg PO TID PRN 03/29/17 05/11/17 Diazepam [Valium] 20 mg PO HS PRN 04/12/17 05/11/17 Escitalopram Oxalate [Lexapro] 10 mg PO BID 05/04/17 05/11/17 Temazepam 30 mg PO HS PRN 05/04/17 05/11/17 Acetaminophen [Tylenol] 500 mg PO Q4-6H PRN 05/11/17 05/11/17 Beclomethasone Dip 80 Mcg/Puff 1 puff INHALATION RT-DAILY 05/11/17 05/11/17 [Qvar 80 mcg] Iron Chewables 65mg 1 tab PO DAILY 05/11/17 05/11/17 Loratadine [Claritin] 10 mg PO DAILY 05/11/17 05/11/17 Omeprazole 20 mg PO DAILY 05/11/17 05/11/17 Promethazine [Phenergan] 25 mg PO DAILY PRN 05/11/17 05/11/17 SUMAtriptan SUCCINATE [Sumatriptan 100 mg PO DAILY PRN 05/11/17 05/11/17 Succinate] Simvastatin [Zocor] 80 mg PO HS 05/11/17 05/11/17 buPROPion HCL [buPROPion HCL SR] 150 mg PO BID 05/11/17 05/11/17 Allergies Allergy/AdvReac Type Severity Reaction Status Date / Time apricot Allergy Unknown Verified 05/11/17 07:34 barium sulfate Allergy Anaphylaxis Verified 05/11/17 07:34 [From Readi-Cat] codeine Allergy Anaphylaxis Verified 05/11/17 07:34 hydrocodone [From Lortab] Allergy Swelling Verified 05/11/17 07:34 Iodinated Contrast- Oral and Allergy Anaphylaxis Verified 05/11/17 07:34 IV Dye iodine Allergy Rash/Hives Verified 05/11/17 07:34 morphine Allergy Rash/Hives Verified 05/11/17 07:34 peach Allergy Swelling Verified 05/11/17 07:34 peanut Allergy Swelling Verified 05/11/17 07:34 peanut oil Allergy Anaphylaxis Verified 05/11/17 07:34 shellfish derived [Shellfish] Allergy Unknown Verified 05/11/17 07:34 sucralfate [From Carafate] Allergy Swelling Verified 05/11/17 07:34 Sulfa (Sulfonamide Allergy Anaphylaxis Verified 05/11/17 07:34 Antibiotics) tree nut [Nut] Allergy Swelling Verified 05/11/17 07:34 oxycodone [From Percocet] AdvReac Severe Swelling; Verified 05/11/17 07:34 (WAS ABLE TO TAKE ALONG WITH BENADRYL) Review of Systems ROS Other: All systems not noted in ROS Statement are negative. Constitutional: Denies: fever, chills Respiratory: Denies: cough, dyspnea Cardiovascular: Denies: chest pain, palpitations, edema Gastrointestinal: Reports: as per HPI, abdominal pain, nausea. Denies: vomiting , diarrhea, constipation, melena, hematochezia Genitourinary: Denies: dysuria, hematuria Musculoskeletal: Denies: back pain Skin: Denies: rash Neurological: Denies: headache <Vickey Perez - Last Filed: 05/11/17 06:45> ROS Other: All systems not noted in ROS Statement are negative. <Robert Acosta - Last Filed: 05/11/17 08:25> ROS Statement: Those systems with pertinent positive or pertinent negative responses have been documented in the HPI. Past Medical History Past Medical History: Asthma, Diabetes Mellitus, GERD/Reflux, Hyperlipidemia, Hypertension, Osteoarthritis (OA), Pneumonia Additional Past Medical History / Comment(s): NIDDM. diabetic neuropathy eli feet, migraines, cervical disc disease, DDD, eli tinnitis, arthiritis bilateral shoulders, poss fibromyalgia-pt in process of being diagnosed, seasonal allergies, IBS, HX R arm fx yrs ago, R ovarian cyst, hiatal hernia, UTIs, urinary calculus, pancreatitis x 2, stomach ulcer. History of Any Multi-Drug Resistant Organisms: C-DIFF Date of last positivie culture/infection: 2012 MDRO Source:: stool Past Surgical History: Appendectomy, Bariatric Surgery, Cholecystectomy, Tonsillectomy Additional Past Surgical History / Comment(s): 2010 felix-en-Y, fistula repair 2011, 2011 gastric bypass revision, bowel resection, lap gastrojejunostomy anastamosis revision, EGD and colonoscopy, cone bx-cervical cancer remove with cryo, L fallopian tube removed due to cyst, picc line in and out, CERVICAL FUSION 12/21/16. [facility]. Past Anesthesia/Blood Transfusion Reactions: Family History of Problems w/ Anesthesia, Motion Sickness, Postoperative Nausea & Vomiting (PONV) Additional Past Anesthesia/Blood Transfusion Reaction / Comment(s): Pt states she has never recieved blood. FAMILY HX PONV. Past Psychological History: Anxiety, Depression Smoking Status: Never smoker Past Alcohol Use History: None Reported Past Drug Use History: Marijuana - Past Family History Brother(s) Family Medical History: Deep Vein Thrombosis (DVT) Father Family Medical History: Cancer Additional Family Medical History / Comment(s): Father had poss colon and lung cancer and at age 73yrs. Mother Family Medical History: Coronary Artery Disease (CAD), Diabetes Mellitus, Deep Vein Thrombosis (DVT), Hypertension Additional Family Medical History / Comment(s): Mother is alive and 73 yrs old. <Vickey Perez - Last Filed: 05/11/17 06:45> General Exam Limitations: no limitations General appearance: alert, in no apparent distress Head exam: Present: atraumatic, normocephalic Eye exam: Present: normal appearance. Absent: scleral icterus, conjunctival injection Respiratory exam: Present: normal lung sounds bilaterally. Absent: respiratory distress, wheezes, rales, rhonchi, stridor Cardiovascular Exam: Present: regular rate, normal rhythm, normal heart sounds. Absent: systolic murmur, diastolic murmur, rubs, gallop GI/Abdominal exam: Present: soft, tenderness (Patient has mild left lower quadrant tenderness without rebound or guarding), normal bowel sounds. Absent: distended, guarding, rebound, rigid, mass, pulsatile mass, hernia Extremities exam: Present: normal inspection, normal capillary refill. Absent: pedal edema, calf tenderness Back exam: Present: normal inspection. Absent: CVA tenderness (R), CVA tenderness (L) Neurological exam: Present: alert Skin exam: Present: warm, dry, intact, normal color. Absent: rash <Vickey Perez - Last Filed: 05/11/17 06:45> Medical Decision Making <Vickey Perez - Last Filed: 05/11/17 06:45> - Lab Data Result diagrams: 05/11/17 06:20 05/11/17 06:20 - Radiology Data Radiology results: report reviewed (Computed tomography scan of the abdomen and pelvis shows no suspicious acute changes, mild ileus may be present left upper quadrant.) <Robert Acosta - Last Filed: 05/11/17 08:25> - Medical Decision Making Patient reevaluated and resting comfortably in bed. Patient has mild tenderness left upper abdomen. Patient updated on results. Patient given option of admission versus follow-up. Patient refuses admission and is agreeable to follow-up with her doctors. Patient states she has medications at home if she needs for pain or nausea. (Robert Acosta) - Lab Data Lab Results 05/11/17 05/11/17 05/11/17 Range/Units 06:20 06:20 06:20 WBC 10.4 (3.8-10.6) k/uL RBC 4.38 (3.80-5.40) m/uL Hgb 11.2 L (11.4-16.0) gm/dL Hct 35.6 (34.0-46.0) % MCV 81.3 (80.0-100.0) fL MCH 25.7 (25.0-35.0) pg MCHC 31.6 (31.0-37.0) g/dL RDW 15.9 H (11.5-15.5) % Plt Count 350 (150-450) k/uL Neutrophils % 44 % Lymphocytes % 44 % Monocytes % 6 % Eosinophils % 3 % Basophils % 1 % Neutrophils # 4.6 (1.3-7.7) k/uL Lymphocytes # 4.6 (1.0-4.8) k/uL Monocytes # 0.6 (0-1.0) k/uL Eosinophils # 0.3 (0-0.7) k/uL Basophils # 0.1 (0-0.2) k/uL Hypochromasia Moderate Sodium 140 (137-145) mmol/L Potassium 3.7 (3.5-5.1) mmol/L Chloride 104 (98-107) mmol/L Carbon Dioxide 24 (22-30) mmol/L Anion Gap 12 mmol/L BUN 15 (7-17) mg/dL Creatinine 0.70 (0.52-1.04) mg/dL Est GFR (MDRD) Af Amer >60 (>60 ml/min/1.73 sqM) Est GFR (MDRD) Non-Af >60 (>60 ml/min/1.73 sqM) Glucose 92 (74-99) mg/dL Plasma Lactic Acid Adam 1.1 (0.7-2.0) mmol/L Calcium 9.0 (8.4-10.2) mg/dL Total Bilirubin 0.4 (0.2-1.3) mg/dL AST 35 (14-36) U/L ALT 46 (9-52) U/L Alkaline Phosphatase 73 (38-126) U/L Total Protein 7.2 (6.3-8.2) g/dL Albumin 4.1 (3.5-5.0) g/dL Amylase 40 (30-110) U/L Lipase 67 (23-300) U/L Urine Color Urine Appearance (Clear) Urine pH (5.0-8.0) Ur Specific [place] (1.001-1.035) Urine Protein (Negative) Urine Glucose (UA) (Negative) Urine Ketones (Negative) Urine Blood (Negative) Urine Nitrite (Negative) Urine Bilirubin (Negative) Urine Urobilinogen (<2.0) mg/dL Ur Leukocyte Esterase (Negative) Urine WBC (0-5) /hpf Ur Squamous Epith Cells (0-4) /hpf Urine Bacteria (None) /hpf Urine HCG, Qual (Not Detectd) 05/11/17 05/11/17 Range/Units 06:43 06:43 WBC (3.8-10.6) k/uL RBC (3.80-5.40) m/uL Hgb (11.4-16.0) gm/dL Hct (34.0-46.0) % MCV (80.0-100.0) fL MCH (25.0-35.0) pg MCHC (31.0-37.0) g/dL RDW (11.5-15.5) % Plt Count (150-450) k/uL Neutrophils % % Lymphocytes % % Monocytes % % Eosinophils % % Basophils % % Neutrophils # (1.3-7.7) k/uL Lymphocytes # (1.0-4.8) k/uL Monocytes # (0-1.0) k/uL Eosinophils # (0-0.7) k/uL Basophils # (0-0.2) k/uL Hypochromasia Sodium (137-145) mmol/L Potassium (3.5-5.1) mmol/L Chloride (98-107) mmol/L Carbon Dioxide (22-30) mmol/L Anion Gap mmol/L BUN (7-17) mg/dL Creatinine (0.52-1.04) mg/dL Est GFR (MDRD) Af Amer (>60 ml/min/1.73 sqM) Est GFR (MDRD) Non-Af (>60 ml/min/1.73 sqM) Glucose (74-99) mg/dL Plasma Lactic Acid Adam (0.7-2.0) mmol/L Calcium (8.4-10.2) mg/dL Total Bilirubin (0.2-1.3) mg/dL AST (14-36) U/L ALT (9-52) U/L Alkaline Phosphatase (38-126) U/L Total Protein (6.3-8.2) g/dL Albumin (3.5-5.0) g/dL Amylase (30-110) U/L Lipase (23-300) U/L Urine Color Light Yellow Urine Appearance Clear (Clear) Urine pH 6.0 (5.0-8.0) Ur Specific [place] 1.003 (1.001-1.035) Urine Protein Negative (Negative) Urine Glucose (UA) Negative (Negative) Urine Ketones Negative (Negative) Urine Blood Negative (Negative) Urine Nitrite Negative (Negative) Urine Bilirubin Negative (Negative) Urine Urobilinogen <2.0 (<2.0) mg/dL Ur Leukocyte Esterase Moderate H (Negative) Urine WBC 8 H (0-5) /hpf Ur Squamous Epith Cells 2 (0-4) /hpf Urine Bacteria Rare H (None) /hpf Urine HCG, Qual Not Detected (Not Detectd) Disposition <Vickey Perez - Last Filed: 05/11/17 06:45> Time of Disposition: 08:25 <Robert Acosta - Last Filed: 05/11/17 08:25> Clinical Impression: Ileus Disposition: HOME SELF-CARE Condition: Stable Instructions: Ileus (ED) Additional Instructions: Please follow-up with her surgeon and primary care physician in the next day or 2 for recheck. Return for increased pain, fever, vomiting, worsening symptoms or other concerns. Referrals: Macy Knight MD [Primary Care Provider] - 1-2 days
[2017-05-11 06:55] LABS: Appearance,Urine Clear (Clear); Bacteria,Urine Rare /hpf; Bilirubin,Urine Negative (Negative); Glucose,Urine (UA) Negative (Negative); Ketones,Urine Negative (Negative); Leukocyte Esterase,Urine Moderate (Negative); Nitrite,Urine Negative (Negative); Particle Count 1631; Protein,Urine Negative (Negative); Specific Gravity,Urine 1.003 (1.001-1.035); Squamous Epithelial Cell,Urine 2 /hpf (0-4); UA Billing (MACRO vs. MICRO) MICRO; Urobilinogen,Urine <2.0 mg/dL (<2.0); WBC,Urine 8 /hpf (0-5)
[2017-05-11 07:01] LABS: ALT 46 U/L (9-52); AST 35 U/L (14-36); Alkaline Phosphatase 73 U/L (38-126); Amylase 40 U/L (30-110); Anion Gap 12 mmol/L; Blood Urea Nitrogen 15 mg/dL (7-17); Carbon Dioxide 24 mmol/L (22-30); Chloride 104 mmol/L (98-107); Glucose 92 mg/dL (74-99); Non-African American GFR(MDRD) >60 (>60 ml/min/1.73 sqM); Potassium 3.7 mmol/L (3.5-5.1); Sodium 140 mmol/L (137-145); Total Bilirubin 0.4 mg/dL (0.2-1.3); Total Protein 7.2 g/dL (6.3-8.2)
[2017-05-11] MEDS ORDERED: MORPHINE SULFATE 4 MG/ML SYRINGE IV STA (07:22)
--- NOTE | 2017-05-11 07:59 | CT ---
EXAMINATION TYPE: CT abdomen pelvis wo con DATE OF EXAM: 05/11/2017 COMPARISON: NONE INDICATION: left lower quad pain/diarrhea. DLP: 608.20 mGycm, Automated exposure control for dose reduction was used. CONTRAST: 0 mL of Omnipaque 300. Study performed without Oral Contrast TECHNIQUE: Axial images were obtained from above the diaphragm to the pubic rami in the axial plane a t 5 mm thick sections. Reconstructed images are reviewed on the computer in the coronal plane. FINDINGS: Limited CT sections are obtained the lung bases. The lung bases are clear. CT ABDOMEN: Post gastric surgery changes are evident. Surgeries also evident within left upper quadra nt loops of bowel. These bowel loops have mild prominence. No focal transition is identified. Liver: Normal Spleen: Normal Pancreas: Normal Adrenal glands: The adrenal glands are normal. Gallbladder: Surgically absent Kidneys: No masses are evident. No hydronephrosis is present. No cysts are present. Aorta: Normal Inferior vena cava: Normal. CT PELVIS: Fecal debris is within the colon. Loops of bowel are evaluated without contrast. Surgical clips are a t cecum. The appendix is not identified. Air is present to the level the rectum. No suspicious inflam matory change suggest acute diverticulitis is evident. Appendix: Not visualized Urinary bladder: Decompressed with limited evaluation Genitourinary structures: Uterus and adnexal regions appear normal. Osseous structures: No suspicious lytic or sclerotic lesions. IMPRESSIONS: 1. No suspicious acute changes. Mild ileus may been left upper quadrant. No suspicious changes sugge st obstruction is evident. 2. No suspicious changes for abscess post appendectomy.
[2017-05-11] MEDS ORDERED: ACETAMINOPHEN TAB 500 MG TAB PO STA (08:22)
[2017-05-11 08:24] VITALS: BP 97/69; PULSE 57; RESP 17
[2017-05-11 08:54] VITALS: TEMP 98.6
== END 2017-05-11 08:52 | disposition home or self-care (01) ==
LOC: EC 06:13
DX: K56.7 Ileus, unspecified (principal); J45.909 Unspecified asthma, uncomplicated; K21.9 Gastro-esophageal reflux disease without esophagitis; E78.5 Hyperlipidemia, unspecified; I10 Essential (primary) hypertension; F32.9 Major depressive disorder, single episode, unspecified; F41.9 Anxiety disorder, unspecified; Z90.49 Acquired absence of other specified parts of digestive tract; Z53.29 Procedure and treatment not carried out because of patient's decision for other reasons; Z85.41 Personal history of malignant neoplasm of cervix uteri; Z79.899 Other long term (current) drug therapy; Z79.51 Long term (current) use of inhaled steroids; Z88.2 Allergy status to sulfonamides; Z88.5 Allergy status to narcotic agent; Z88.8 Allergy status to other drugs, medicaments and biological substances; Z91.041 Radiographic dye allergy status; Z91.048 Other nonmedicinal substance allergy status; Z91.018 Allergy to other foods; Z91.010 Allergy to peanuts; Z91.013 Allergy to seafood
CPT/HCPCS: 36415; 80053; 82150; 83605; 83690; 85025; 81001; 81025; 74176; 99284; 96374; 96361 ×2; J2405

== ENCOUNTER 2017-05-23 18:06 | Emergency (ER) | payer OTHER ==
--- NOTE | 2017-05-23 21:03 | ED ---
General Adult HPI - General Chief complaint: Recheck/Abnormal Lab/Rx Stated complaint: constipation, rt wrist pain from fall Time Seen by Provider: 05/23/17 20:32 Source: patient Mode of arrival: wheelchair Limitations: no limitations - History of Present Illness Initial comments: She is a 46-year-old female with asked medical history of multiple intra- abdominal surgeries in the past including gastric bypass with subsequent revision and last month she had an intussusception requiring emergency surgery at [facility]. She was subsequently developed ileus and was experiencing bilious vomiting. After that admission the patient was reevaluated in our emergency department diagnosed with a urinary tract infection, she was prescribed Macrobid on May 15 which she reports she was compliant with and has completed the course of. Patient returns to the emergency Department today with complaint of diffuse abdominal pain, and obstipation for 2 days. Patient reports she has not had a bowel movement or passed gas at all in the past 48 hours. She reports diffuse pressure-like abdominal pain similar to her previous episodes of ileus. Patient states she feels somewhat nauseated but thinks that if she were to vomit she might vomit up stool In addition patient states that this morning she was attempting to let her dogs out of the house when one of them jumped at her causing her to slam the back of her hand against the sliding door. She has significant swelling to the dorsum of her hand which she reports is causing her some significant pain. She has applied ice which is cause some redness to the skin. Patient has concern that she may have broken a bone in her hands. - Related Data Home Medications Medication Instructions Recorded Confirmed Docusate [Colace] 100 mg PO DAILY PRN 12/29/15 05/14/17 Furosemide [Lasix] 20 mg PO BID 09/19/16 05/14/17 Hydrocodone/Acetaminophen [[place] 1 tab PO Q6H PRN 03/06/17 05/14/17 5-325] Ibuprofen [Motrin] 600 mg PO TID PRN 03/29/17 05/14/17 traMADol HCl [Ultram] 50 mg PO TID PRN 03/29/17 05/14/17 Diazepam [Valium] 20 mg PO HS PRN 04/12/17 05/14/17 Escitalopram Oxalate [Lexapro] 10 mg PO BID 05/04/17 05/14/17 Temazepam 30 mg PO HS PRN 05/04/17 05/14/17 Acetaminophen [Tylenol] 500 mg PO Q4H PRN 05/11/17 05/14/17 Beclomethasone Dip 80 Mcg/Puff 1 puff INHALATION RT-DAILY 05/11/17 05/14/17 [Qvar 80 mcg] Loratadine [Claritin] 10 mg PO DAILY 05/11/17 05/14/17 Omeprazole 20 mg PO DAILY 05/11/17 05/14/17 Promethazine [Phenergan] 25 mg PO DAILY PRN 05/11/17 05/14/17 SUMAtriptan SUCCINATE [Sumatriptan 100 mg PO DAILY PRN 05/11/17 05/14/17 Succinate] Simvastatin [Zocor] 80 mg PO HS 05/11/17 05/14/17 buPROPion HCL [buPROPion HCL SR] 150 mg PO BID 05/11/17 05/14/17 Ferrous Sulfate [Feosol] 325 mg PO DAILY 05/14/17 05/14/17 Previous Rx's Medication Instructions Recorded Nitrofurantoin Monohyd/M-Cryst 100 mg PO Q12HR #14 cap 05/14/17 [Macrobid] Allergies Allergy/AdvReac Type Severity Reaction Status Date / Time oxycodone [From Percocet] Allergy Unknown Swelling; Verified 05/23/17 18:35 (WAS ABLE TO TAKE ALONG WITH BENADRYL) apricot Allergy Dyspnea Verified 05/23/17 18:35 barium sulfate Allergy Anaphylaxis Verified 05/23/17 18:35 [From Readi-Cat] codeine Allergy Anaphylaxis Verified 05/23/17 18:35 hydrocodone [From Lortab] Allergy Swelling Verified 05/23/17 18:35 Iodinated Contrast- Oral and Allergy Anaphylaxis Verified 05/23/17 18:35 IV Dye iodine Allergy Rash/Hives Verified 05/23/17 18:35 morphine Allergy Rash/Hives Verified 05/23/17 18:35 peach Allergy Swelling Verified 05/23/17 18:35 peanut Allergy Swelling Verified 05/23/17 18:35 peanut oil Allergy Anaphylaxis Verified 05/23/17 18:35 shellfish derived [Shellfish] Allergy Anaphylaxis Verified 05/23/17 18:35 sucralfate [From Carafate] Allergy Swelling Verified 05/23/17 18:35 Sulfa (Sulfonamide Allergy Anaphylaxis Verified 05/23/17 18:35 Antibiotics) tree nut [Nut] Allergy Swelling Verified 05/23/17 18:35 Review of Systems ROS Statement: Those systems with pertinent positive or pertinent negative responses have been documented in the HPI. ROS Other: All systems not noted in ROS Statement are negative. Past Medical History Past Medical History: Asthma, Diabetes Mellitus, GERD/Reflux, Hyperlipidemia, Hypertension, Osteoarthritis (OA), Pneumonia Additional Past Medical History / Comment(s): NIDDM. diabetic neuropathy eli feet, migraines, cervical disc disease, DDD, eli tinnitis, arthiritis bilateral shoulders, poss fibromyalgia-pt in process of being diagnosed, seasonal allergies, IBS, HX R arm fx yrs ago, R ovarian cyst, hiatal hernia, UTIs, urinary calculus, pancreatitis x 2, stomach ulcer. History of Any Multi-Drug Resistant Organisms: C-DIFF Date of last positivie culture/infection: 2012 MDRO Source:: stool Past Surgical History: Appendectomy, Bariatric Surgery, Cholecystectomy, Tonsillectomy Additional Past Surgical History / Comment(s): 2011 felix-en-Y, fistula repair 2011, 2011 gastric bypass revision, bowel resection, lap gastrojejunostomy anastamosis revision, EGD and colonoscopy, cone bx-cervical cancer remove with cryo, L fallopian tube removed due to cyst, picc line in and out, CERVICAL FUSION 12/21/16. LT [facility]. Past Anesthesia/Blood Transfusion Reactions: Family History of Problems w/ Anesthesia, Motion Sickness, Postoperative Nausea & Vomiting (PONV) Additional Past Anesthesia/Blood Transfusion Reaction / Comment(s): Pt states she has never recieved blood. FAMILY HX PONV. Past Psychological History: Anxiety, Depression Smoking Status: Never smoker Past Alcohol Use History: None Reported Past Drug Use History: Marijuana - Past Family History Brother(s) Family Medical History: Deep Vein Thrombosis (DVT) Father Family Medical History: Cancer Additional Family Medical History / Comment(s): Father had poss colon and lung cancer and at age 73yrs. Mother Family Medical History: Coronary Artery Disease (CAD), Diabetes Mellitus, Deep Vein Thrombosis (DVT), Hypertension Additional Family Medical History / Comment(s): Mother is alive and 73 yrs old. General Exam Limitations: no limitations Course Vital Signs 05/23/17 05/23/17 05/23/17 18:32 22:39 23:51 Temperature 98.8 F 99 F 98.6 F Pulse Rate 75 69 64 Respiratory 20 16 18 Rate Blood Pressure 115/66 113/74 101/71 O2 Sat by Pulse 98 98 98 Oximetry - Reevaluation(s) Reevaluation #1: She was reevaluated, x-ray and urinalysis results were discussed with the patient. Patient reports mild nausea, Zofran ODT ordered. 05/23/17 22:29 Reevaluation #2: Return to the patient's room, she is requesting to be cleaned out via bowel prep via NG tube and a enema. Considering the patient is only 2-1/2 weeks postop I told her I don't feel that this is appropriate and is not something would be willing to do. I again offered her transfer to the [facility] hospital to be evaluated by her surgical team. Patient has an appointment to follow up with her surgeon on Sunday and states that she would rather try a suppository tonight and discharge home. 05/23/17 23:13 Medical Decision Making - Medical Decision Making Patient was seen and evaluated Vital signs were reviewed History was obtained from the patient and her medical record Patient has a history of multiple abdominal surgeries and recurrent ileus patient presenting today with 2 days of obstipation and now foul taste in her mouth feeling like she may vomit X-rays were ordered 10:31 PM X-ray with nonspecific bowel gas pattern and mild dilatation of the small bowel , these results were discussed with the patient. I offered the patient transferred to [facility] to be evaluated by Dr. Connell her surgeon versus discharge home with ODT Zofran and instructions to maintain oral hydration and follow up with Dr. Connell outpatient. At this time patient says she is not sure what she wants to do. She will take the ODT Zofran and see how she feels. Patient was reevaluated, states Zofran is helping her symptoms. Patient asking if she can be "cleaned out" via NG tube and enemas. I advised the patient that considering she is postoperative at this time that would not be appropriate. I advised her we can transfer her to [facility] to be evaluated by Dr. Connell who may choose to pursue this treatment. At this time the patient does not wish to be transferred. She is agreeable to being discharged home with a suppository and a plan to follow up with Dr. Connell as scheduled on Sunday morning. Again the patient was encouraged to return to the emergency department should she have any persistent or worsening symptoms or development of any new or concerning symptoms. Patient expressed understanding and agreement with the plan. All questions pertaining to care were answered to the best of my ability and the patient was discharged home in stable condition - Lab Data Lab Results 05/23/17 Range/Units 21:13 Urine Color Yellow Urine Appearance Cloudy H (Clear) Urine pH 5.5 (5.0-8.0) Ur Specific [place] 1.015 (1.001-1.035) Urine Protein Negative (Negative) Urine Glucose (UA) Negative (Negative) Urine Ketones Negative (Negative) Urine Blood Negative (Negative) Urine Nitrite Negative (Negative) Urine Bilirubin Negative (Negative) Urine Urobilinogen <2.0 (<2.0) mg/dL Ur Leukocyte Esterase Large H (Negative) Urine RBC 3 (0-5) /hpf Urine WBC 9 H (0-5) /hpf Ur Squamous Epith Cells 12 H (0-4) /hpf Urine Bacteria Moderate H (None) /hpf Hyaline Casts 6 H (0-2) /lpf Urine Mucus Rare H (None) /hpf Disposition Clinical Impression: Abdominal pain Disposition: HOME SELF-CARE Condition: Good Instructions: Ileus (ED) Referrals: Macy Knight MD [Primary Care Provider] - 1-2 days Time of Disposition: 23:15
[2017-05-23 21:27] LABS: Appearance,Urine Cloudy (Clear); Bacteria,Urine Moderate /hpf; Bilirubin,Urine Negative (Negative); Glucose,Urine (UA) Negative (Negative); Ketones,Urine Negative (Negative); Leukocyte Esterase,Urine Large (Negative); Mucus,Urine Rare /hpf; Nitrite,Urine Negative (Negative); PH, Urine 5.5 (5.0-8.0); Particle Count 7122; Protein,Urine Negative (Negative); RBC,Urine 3 /hpf (0-5); Specific Gravity,Urine 1.015 (1.001-1.035); Squamous Epithelial Cell,Urine 12 /hpf (0-4); UA Billing (MACRO vs. MICRO) MICRO; Urobilinogen,Urine <2.0 mg/dL (<2.0); WBC,Urine 9 /hpf (0-5)
--- NOTE | 2017-05-23 21:38 | XR ---
EXAMINATION TYPE: XR abdomen acute w cxr DATE OF EXAM: 05/23/2017 COMPARISON: NONE HISTORY: Pain TECHNIQUE: Single view of the chest and 2 views of the abdomen are submitted. FINDINGS: Single view of the chest fails demonstrate evidence for acute pulmonary disease. There is no evidence for pneumoperitoneum. Mildly distended small bowel without air-fluid levels or dilated bowel. Postsurgical changes upper ab domen. No sizeable air fluid levels.No mass effects are seen. No unusual calcifications. IMPRESSION: 1. Nonspecific nonobstructive bowel gas pattern.
--- NOTE | 2017-05-23 21:39 | XR ---
EXAMINATION TYPE: XR hand complete RT DATE OF EXAM: 05/23/2017 CLINICAL HISTORY: pain TECHNIQUE: Frontal, lateral and oblique images of the right hand are obtained. COMPARISON: None. FINDINGS: There is no acute fracture/dislocation evident. The joint spaces appear within normal limi ts. The overlying soft tissue appears unremarkable. IMPRESSION: There is no acute fracture or dislocation ICD 10 NO FRACTURE, INITIAL EVALUATION
[2017-05-23] MEDS ORDERED: ONDANSETRON ODT 4 MG TAB PO STA (22:29)
[2017-05-23] MEDS ORDERED: BISACODYL 10 MG SUPP RECTAL STA (23:14)
[2017-05-23 23:53] VITALS: BP 101/71; PULSE 64; RESP 18; TEMP 98.6
--- NOTE | 2017-05-25 02:52 | CDI ---
Documentation Clarification OP Dear Padma Shah Please do addendum to ED report for missing Physical examination. Thank you, Jameson Joe [employer] If you have any questions, please contact [facility] at [phone] [facility]
== END 2017-05-24 00:28 | disposition home or self-care (01) ==
LOC: EC 18:06
DX: R10.9 Unspecified abdominal pain (principal); M25.532 Pain in left wrist; M79.89 Other specified soft tissue disorders; J45.909 Unspecified asthma, uncomplicated; K21.9 Gastro-esophageal reflux disease without esophagitis; E78.5 Hyperlipidemia, unspecified; I10 Essential (primary) hypertension; F41.9 Anxiety disorder, unspecified; F32.9 Major depressive disorder, single episode, unspecified; Z85.41 Personal history of malignant neoplasm of cervix uteri; Z98.84 Bariatric surgery status; Z90.49 Acquired absence of other specified parts of digestive tract; Z79.51 Long term (current) use of inhaled steroids; Z79.899 Other long term (current) drug therapy; Z88.5 Allergy status to narcotic agent; Z91.048 Other nonmedicinal substance allergy status; Z91.041 Radiographic dye allergy status; Z88.8 Allergy status to other drugs, medicaments and biological substances; Z91.010 Allergy to peanuts; Z91.018 Allergy to other foods; Z91.013 Allergy to seafood; Z88.2 Allergy status to sulfonamides; W22.8XXA Striking against or struck by other objects, initial encounter
CPT/HCPCS: 74022; 81001; 99284

== ENCOUNTER 2017-07-16 02:41 | Emergency (ER) | payer OTHER ==
[2017-07-16 03:08] LABS: Basophils # (A) 0.1 k/uL (0-0.2); Basophils % (A) 1 %; CHCM 30.6; Eosinophils # (A) 0.2 k/uL (0-0.7); Eosinophils % (A) 2 %; HCT 31.1 % (34.0-46.0); HDW 3.14; HGB 9.5 gm/dL (11.4-16.0); Hypochromasia Marked; Luc # (Auto) 0.31; Luc % (Auto) 3; Lymphocytes # (A) 3.8 k/uL (1.0-4.8); Lymphocytes % (A) 42 %; MCH 24.1 pg (25.0-35.0); MCHC 30.6 g/dL (31.0-37.0); MCV 78.6 fL (80.0-100.0); Mean Platelet Volume 6.9; Monocytes # (A) 0.5 k/uL (0-1.0); Monocytes % (A) 5 %; Neutrophils # (A) 4.3 k/uL (1.3-7.7); Neutrophils % (A) 47 %; RBC 3.96 m/uL (3.80-5.40); RDW 14.7 % (11.5-15.5); WBC 9.1 k/uL (3.8-10.6); WBC (Perox) 8.83
[2017-07-16 03:19] LABS: INR 1.1 (<1.2); Partial Thromboplastin Time 22.4 sec (22.0-30.0); Prothrombin Time 11.1 sec (9.0-12.0)
[2017-07-16 03:21] LABS: ALT 29 U/L (9-52); AST 22 U/L (14-36); Alkaline Phosphatase 71 U/L (38-126); Amylase 46 U/L (30-110); Anion Gap 9 mmol/L; Blood Urea Nitrogen 11 mg/dL (7-17); Calcium 8.6 mg/dL (8.4-10.2); Carbon Dioxide 18 mmol/L (22-30); Chloride 112 mmol/L (98-107); Glucose 105 mg/dL (74-99); Magnesium 1.8 mg/dL (1.6-2.3); Non-African American GFR(MDRD) >60 (>60 ml/min/1.73 sqM); Sodium 139 mmol/L (137-145); Total Bilirubin 0.2 mg/dL (0.2-1.3); Total Protein 6.6 g/dL (6.3-8.2)
--- NOTE | 2017-07-16 03:21 | XR ---
EXAM: XR Chest, 1 View CLINICAL HISTORY: Reason: chest pain TECHNIQUE: Frontal view of the chest. COMPARISON: 05/04/17 FINDINGS: Lungs: Unremarkable. No consolidation. Pleural space: Unremarkable. No pneumothorax. Heart: Unremarkable. No cardiomegaly. Mediastinum: Unremarkable. Bones/joints: Unremarkable. IMPRESSION: No acute radiographic findings.
[2017-07-16 03:25] LABS: Potassium 3.8 mmol/L (3.5-5.1)
[2017-07-16 03:32] LABS: Creatine Kinase 79 U/L (30-135)
[2017-07-16 03:45] LABS: Creatine Kinase MB 0.3 ng/mL (0.0-2.4); Troponin I <0.012 ng/mL (0.000-0.034)
[2017-07-16] MEDS ORDERED: traMADol 50 MG TAB PO STA (03:58)
[2017-07-16 05:05] VITALS: BP 104/59; PULSE 78; RESP 18; TEMP 97.8
--- NOTE | 2017-07-16 05:28 | ED ---
Chest Pain HPI - General Chief Complaint: Chest Pain Stated Complaint: Chest pain Time Seen by Provider: 07/16/17 02:48 Source: patient, EMS Mode of arrival: EMS Limitations: no limitations - History of Present Illness MD Complaint: chest pain, other Onset/Timin -: hour(s) Onset: during rest Pain Location: right chest, epigastric Pain Radiation: none Severity: moderate Quality: dull Consistency: constant Improves With: nothing Worsens With: nothing Other Symptoms: other (Diarrhea) - Related Data Home Medications Medication Instructions Recorded Confirmed Docusate [Colace] 100 mg PO DAILY PRN 12/29/15 07/16/17 Furosemide [Lasix] 20 mg PO BID 09/19/16 07/16/17 Hydrocodone/Acetaminophen [[place] 1 tab PO Q6H PRN 03/06/17 07/16/17 5-325] Ibuprofen [Motrin] 600 mg PO TID PRN 03/29/17 07/16/17 traMADol HCl [Ultram] 50 mg PO TID PRN 03/29/17 07/16/17 Diazepam [Valium] 20 mg PO HS PRN 04/12/17 07/16/17 Escitalopram Oxalate [Lexapro] 10 mg PO BID 05/04/17 07/16/17 Temazepam 30 mg PO HS PRN 05/04/17 07/16/17 Acetaminophen [Tylenol] 500 mg PO Q4H PRN 05/11/17 07/16/17 Beclomethasone Dip 80 Mcg/Puff 1 puff INHALATION RT-DAILY 05/11/17 07/16/17 [Qvar 80 mcg] Loratadine [Claritin] 10 mg PO DAILY 05/11/17 07/16/17 Omeprazole 20 mg PO DAILY 05/11/17 07/16/17 Promethazine [Phenergan] 25 mg PO DAILY PRN 05/11/17 07/16/17 SUMAtriptan SUCCINATE [Sumatriptan 100 mg PO DAILY PRN 05/11/17 07/16/17 Succinate] Simvastatin [Zocor] 80 mg PO HS 05/11/17 07/16/17 buPROPion HCL [buPROPion HCL SR] 150 mg PO BID 05/11/17 07/16/17 Ferrous Sulfate [Feosol] 325 mg PO DAILY 05/14/17 07/16/17 Biotin 300 mcg PO DAILY 07/16/17 07/16/17 Dicyclomine [Bentyl] 20 mg PO QID 07/16/17 07/16/17 Propranolol HCl [Inderal LA] 80 mg PO DAILY 07/16/17 07/16/17 Tamsulosin HCl [Flomax] 0.4 mg PO HS 07/16/17 07/16/17 Zolpidem Tartrate [Ambien] 10 mg PO HS 07/16/17 07/16/17 metFORMIN HCL [Glucophage Xr] 500 mg PO DAILY 07/16/17 07/16/17 Previous Rx's Medication Instructions Recorded Nitrofurantoin Monohyd/M-Cryst 100 mg PO Q12HR #14 cap 05/14/17 [Macrobid] Allergies Allergy/AdvReac Type Severity Reaction Status Date / Time oxycodone [From Percocet] Allergy Unknown Swelling; Verified 07/16/17 02:55 (WAS ABLE TO TAKE ALONG WITH BENADRYL) apricot Allergy Dyspnea Verified 07/16/17 02:55 barium sulfate Allergy Anaphylaxis Verified 07/16/17 02:55 [From Readi-Cat] codeine Allergy Anaphylaxis Verified 07/16/17 02:55 hydrocodone [From Lortab] Allergy Swelling Verified 07/16/17 02:55 Iodinated Contrast- Oral and Allergy Anaphylaxis Verified 07/16/17 02:55 IV Dye iodine Allergy Rash/Hives Verified 07/16/17 02:55 morphine Allergy Rash/Hives Verified 07/16/17 02:55 peach Allergy Swelling Verified 07/16/17 02:55 peanut Allergy Swelling Verified 07/16/17 02:55 peanut oil Allergy Anaphylaxis Verified 07/16/17 02:55 shellfish derived [Shellfish] Allergy Anaphylaxis Verified 07/16/17 02:55 sucralfate [From Carafate] Allergy Swelling Verified 07/16/17 02:55 Sulfa (Sulfonamide Allergy Anaphylaxis Verified 07/16/17 02:55 Antibiotics) tree nut [Nut] Allergy Swelling Verified 07/16/17 02:55 Review of Systems ROS Statement: Those systems with pertinent positive or pertinent negative responses have been documented in the HPI. ROS Other: All systems not noted in ROS Statement are negative. Constitutional: Reports: weakness. Denies: fever, chills Eyes: Denies: vision change Respiratory: Denies: cough, dyspnea, wheezes Cardiovascular: Reports: as per HPI, chest pain. Denies: palpitations, edema, syncope Gastrointestinal: Reports: as per HPI, abdominal pain, nausea, diarrhea. Denies : vomiting Genitourinary: Denies: dysuria, hematuria Skin: Denies: rash Neurological: Reports: paresthesias. Denies: headache, weakness, numbness Hematological/Lymphatic: Denies: easy bleeding EKG Findings - EKG Results: EKG: interpreted by CHAU LIGHT, sinus rhythm, normal axis, normal QRS, normal ST/ T EKG shows: bradycardia (Rate approximately 59 bpm) Past Medical History Past Medical History: Asthma, Diabetes Mellitus, GERD/Reflux, Hyperlipidemia, Hypertension, Osteoarthritis (OA), Pneumonia Additional Past Medical History / Comment(s): NIDDM. diabetic neuropathy eli feet, migraines, cervical disc disease, DDD, eli tinnitis, arthiritis bilateral shoulders, poss fibromyalgia-pt in process of being diagnosed, seasonal allergies, IBS, HX R arm fx yrs ago, R ovarian cyst, hiatal hernia, UTIs, urinary calculus, pancreatitis x 2, stomach ulcer. History of Any Multi-Drug Resistant Organisms: C-DIFF Date of last positivie culture/infection: 2012 MDRO Source:: stool Past Surgical History: Appendectomy, Bariatric Surgery, Cholecystectomy, Tonsillectomy Additional Past Surgical History / Comment(s): 2010 felix-en-Y, fistula repair 2011, 2011 gastric bypass revision, bowel resection, lap gastrojejunostomy anastamosis revision, EGD and colonoscopy, cone bx-cervical cancer remove with cryo, L fallopian tube removed due to cyst, picc line in and out, CERVICAL FUSION 12/21/16. [facility]. Past Anesthesia/Blood Transfusion Reactions: Family History of Problems w/ Anesthesia, Motion Sickness, Postoperative Nausea & Vomiting (PONV) Additional Past Anesthesia/Blood Transfusion Reaction / Comment(s): Pt states she has never recieved blood. FAMILY HX PONV. Past Psychological History: Anxiety, Depression Smoking Status: Never smoker Past Alcohol Use History: None Reported Past Drug Use History: Marijuana - Past Family History Brother(s) Family Medical History: Deep Vein Thrombosis (DVT) Father Family Medical History: Cancer Additional Family Medical History / Comment(s): Father had poss colon and lung cancer and at age 73yrs. Mother Family Medical History: Coronary Artery Disease (CAD), Diabetes Mellitus, Deep Vein Thrombosis (DVT), Hypertension Additional Family Medical History / Comment(s): Mother is alive and 73 yrs old. General Exam Limitations: no limitations General appearance: alert, in no apparent distress Head exam: Present: atraumatic, normocephalic Eye exam: Present: normal appearance. Absent: scleral icterus, conjunctival injection Respiratory exam: Present: normal lung sounds bilaterally, chest wall tenderness. Absent: respiratory distress, wheezes, rales, rhonchi, stridor, accessory muscle use Cardiovascular Exam: Present: regular rate, normal rhythm, normal heart sounds. Absent: systolic murmur, diastolic murmur, rubs, gallop GI/Abdominal exam: Present: soft, tenderness (Mild epigastric tenderness). Absent: distended, guarding, rebound, rigid, mass, pulsatile mass Extremities exam: Present: normal inspection, normal capillary refill. Absent: pedal edema, calf tenderness Back exam: Present: normal inspection. Absent: CVA tenderness (R), CVA tenderness (L) Neurological exam: Present: alert Skin exam: Present: warm, dry, intact, normal color. Absent: rash Course Vital Signs 07/16/17 07/16/17 07/16/17 02:52 03:00 05:00 Temperature 99.4 F 97.8 F Pulse Rate 74 78 Pulse Rate [ 74 Manager Bar ] Respiratory 20 18 Rate Blood Pressure 107/60 104/59 O2 Sat by Pulse 100 98 Oximetry Chest Pain MDM - [facility] Patient's 46-year-old woman with epigastric pain, was also having multiple soft bowel movements which she felt were darker than usual. Patient is not able to give stool specimen here and the occult blood is negative. Her symptoms have resolved and we discussed appropriate follow-up as well as return parameters. Disposition Clinical Impression: Diarrhea, Dehydration Disposition: HOME SELF-CARE Condition: Good Instructions: Dehydration (ED), Acute Diarrhea (ED) Referrals: Macy Knight MD [Primary Care Provider] - 1-2 days
== END 2017-07-16 05:37 | disposition home or self-care (01) ==
LOC: EC 02:41
DX: E86.0 Dehydration (principal); R19.7 Diarrhea, unspecified; R10.13 Epigastric pain; J45.909 Unspecified asthma, uncomplicated; E11.9 Type 2 diabetes mellitus without complications; K21.9 Gastro-esophageal reflux disease without esophagitis; E78.5 Hyperlipidemia, unspecified; F32.9 Major depressive disorder, single episode, unspecified; I10 Essential (primary) hypertension; F41.9 Anxiety disorder, unspecified; Z87.19 Personal history of other diseases of the digestive system; Z90.49 Acquired absence of other specified parts of digestive tract; Z98.84 Bariatric surgery status; Z79.51 Long term (current) use of inhaled steroids; Z79.84 Long term (current) use of oral hypoglycemic drugs; Z79.899 Other long term (current) drug therapy; Z88.2 Allergy status to sulfonamides; Z88.5 Allergy status to narcotic agent; Z88.8 Allergy status to other drugs, medicaments and biological substances; Z91.010 Allergy to peanuts; Z91.013 Allergy to seafood; Z91.018 Allergy to other foods; Z91.041 Radiographic dye allergy status
CPT/HCPCS: 36415; 71010; 80053; 82150; 82272; 82550; 82553; 83690; 83735; 84484; 85025; 85610; 85730; 93005; 99285

== ENCOUNTER 2017-08-19 17:23 | Emergency (ER) | payer OTHER ==
[2017-08-19 17:30] VITALS: RESP 17; TEMP 98.5
[2017-08-19] MEDS ORDERED: ONDANSETRON 4 MG/2 ML VIAL IVP STA (17:36)
[2017-08-19] MEDS ORDERED: SODIUM CHLORIDE 0.9% 1,000 ML IV STA (17:36)
[2017-08-19] MEDS ORDERED: HYDROmorphone 1 MG/ML 1 ML SYRINGE IVP STA (17:37)
--- NOTE | 2017-08-19 17:40 | ED ---
General Adult HPI - General Chief complaint: Abdominal Pain Stated complaint: ABD PAIN Time Seen by Provider: 08/19/17 17:28 Source: patient, RN notes reviewed Mode of arrival: EMS Limitations: no limitations - History of Present Illness Initial comments: 47-year-old female presents to the emergency department with chief complaint of left-sided abdominal pain. Patient states started around 1:00 last night. She' s had nausea vomiting diarrhea. Patient is to history of gastric bypass and abdominal surgery in the past. Patient states that she has had on and off viral like symptoms been no high fever with this. She denies any blood in the vomit or diarrhea. She denies any other symptoms with this. They were concerned due to the continued pain with her history so without that they should be seen. Patient denies any recent fever, chills, shortness of breath, chest pain, back pain, numbness or tingling, dysuria or hematuria, constipation , headaches or visual changes, or any other current symptoms. - Related Data Home Medications Medication Instructions Recorded Confirmed Docusate [Colace] 100 mg PO DAILY PRN 12/29/15 07/16/17 Furosemide [Lasix] 20 mg PO BID 09/19/16 07/16/17 Hydrocodone/Acetaminophen [[place] 1 tab PO Q6H PRN 03/06/17 07/16/17 5-325] Ibuprofen [Motrin] 600 mg PO TID PRN 03/29/17 07/16/17 traMADol HCl [Ultram] 50 mg PO TID PRN 03/29/17 07/16/17 Diazepam [Valium] 20 mg PO HS PRN 04/12/17 07/16/17 Escitalopram Oxalate [Lexapro] 10 mg PO BID 05/04/17 07/16/17 Temazepam 30 mg PO HS PRN 05/04/17 07/16/17 Acetaminophen [Tylenol] 500 mg PO Q4H PRN 05/11/17 07/16/17 Beclomethasone Dip 80 Mcg/Puff 1 puff INHALATION RT-DAILY 05/11/17 07/16/17 [Qvar 80 mcg] Loratadine [Claritin] 10 mg PO DAILY 05/11/17 07/16/17 Omeprazole 20 mg PO DAILY 05/11/17 07/16/17 Promethazine [Phenergan] 25 mg PO DAILY PRN 05/11/17 07/16/17 SUMAtriptan SUCCINATE [Sumatriptan 100 mg PO DAILY PRN 05/11/17 07/16/17 Succinate] Simvastatin [Zocor] 80 mg PO HS 05/11/17 07/16/17 buPROPion HCL [buPROPion HCL SR] 150 mg PO BID 05/11/17 07/16/17 Ferrous Sulfate [Feosol] 325 mg PO DAILY 05/14/17 07/16/17 Biotin 300 mcg PO DAILY 07/16/17 07/16/17 Dicyclomine [Bentyl] 20 mg PO QID 07/16/17 07/16/17 Propranolol HCl [Inderal LA] 80 mg PO DAILY 07/16/17 07/16/17 Tamsulosin HCl [Flomax] 0.4 mg PO HS 07/16/17 07/16/17 Zolpidem Tartrate [Ambien] 10 mg PO HS 07/16/17 07/16/17 metFORMIN HCL [Glucophage Xr] 500 mg PO DAILY 07/16/17 07/16/17 Previous Rx's Medication Instructions Recorded Nitrofurantoin Monohyd/M-Cryst 100 mg PO Q12HR #14 cap 05/14/17 [Macrobid] Allergies Allergy/AdvReac Type Severity Reaction Status Date / Time oxycodone [From Percocet] Allergy Unknown Swelling; Verified 08/19/17 17:25 (WAS ABLE TO TAKE ALONG WITH BENADRYL) apricot Allergy Dyspnea Verified 08/19/17 17:25 barium sulfate Allergy Anaphylaxis Verified 08/19/17 17:25 [From Readi-Cat] codeine Allergy Anaphylaxis Verified 08/19/17 17:25 hydrocodone [From Lortab] Allergy Swelling Verified 08/19/17 17:25 Iodinated Contrast- Oral and Allergy Anaphylaxis Verified 08/19/17 17:25 IV Dye iodine Allergy Rash/Hives Verified 08/19/17 17:25 morphine Allergy Rash/Hives Verified 08/19/17 17:25 peach Allergy Swelling Verified 08/19/17 17:25 peanut Allergy Swelling Verified 08/19/17 17:25 peanut oil Allergy Anaphylaxis Verified 08/19/17 17:25 shellfish derived [Shellfish] Allergy Anaphylaxis Verified 08/19/17 17:25 sucralfate [From Carafate] Allergy Swelling Verified 08/19/17 17:25 Sulfa (Sulfonamide Allergy Anaphylaxis Verified 08/19/17 17:25 Antibiotics) tree nut [Nut] Allergy Swelling Verified 08/19/17 17:25 Review of Systems ROS Statement: Those systems with pertinent positive or pertinent negative responses have been documented in the HPI. ROS Other: All systems not noted in ROS Statement are negative. Past Medical History Past Medical History: Asthma, Diabetes Mellitus, GERD/Reflux, Hyperlipidemia, Hypertension, Osteoarthritis (OA), Pneumonia Additional Past Medical History / Comment(s): NIDDM. diabetic neuropathy eli feet, migraines, cervical disc disease, DDD, eli tinnitis, arthiritis bilateral shoulders, poss fibromyalgia-pt in process of being diagnosed, seasonal allergies, IBS, HX R arm fx yrs ago, R ovarian cyst, hiatal hernia, UTIs, urinary calculus, pancreatitis x 2, stomach ulcer. History of Any Multi-Drug Resistant Organisms: C-DIFF Date of last positivie culture/infection: 2012 MDRO Source:: stool Past Surgical History: Appendectomy, Bariatric Surgery, Cholecystectomy, Tonsillectomy Additional Past Surgical History / Comment(s): 2011 felix-en-Y, fistula repair 2011, 2011 gastric bypass revision, bowel resection, lap gastrojejunostomy anastamosis revision, EGD and colonoscopy, cone bx-cervical cancer remove with cryo, L fallopian tube removed due to cyst, picc line in and out, CERVICAL FUSION 12/21/16. [facility]. Past Anesthesia/Blood Transfusion Reactions: Family History of Problems w/ Anesthesia, Motion Sickness, Postoperative Nausea & Vomiting (PONV) Additional Past Anesthesia/Blood Transfusion Reaction / Comment(s): Pt states she has never recieved blood. FAMILY HX PONV. Past Psychological History: Anxiety, Depression Smoking Status: Never smoker Past Alcohol Use History: None Reported Past Drug Use History: Marijuana - Past Family History Brother(s) Family Medical History: Deep Vein Thrombosis (DVT) Father Family Medical History: Cancer Additional Family Medical History / Comment(s): Father had poss colon and lung cancer and at age 73yrs. Mother Family Medical History: Coronary Artery Disease (CAD), Diabetes Mellitus, Deep Vein Thrombosis (DVT), Hypertension Additional Family Medical History / Comment(s): Mother is alive and 73 yrs old. General Exam - General Exam Comments Initial Comments: General: The patient is awake and alert, in no distress, and does not appear acutely ill. Eye: Pupils are equal, round and reactive to light, extra-ocular movements are intact; there is normal conjunctiva bilaterally. No signs of icterus. Ears, nose, mouth and throat: There are moist mucous membranes. Neck: The neck is supple, there is no tenderness. Cardiovascular: There is a regular rate and rhythm. No murmur, rub or gallop is appreciated. Respiratory: Lungs are clear to auscultation, respirations are non-labored, breath sounds are equal. No wheezes, stridor, rales, or rhonchi. Gastrointestinal: Soft, non-distended, mild tenderness to palpation along the left upper and lower quadrants of the abdomen without masses or organomegaly noted. There is no rebound or guarding present. No CVA tenderness. Bowel sounds are unremarkable. Back: There is no tenderness to palpation in the midline. There is no obvious deformity. No rashes noted. Musculoskeletal: Normal ROM, no tenderness, There is no pedal edema. There is no calf tenderness or swelling. Sensation intact. Pulses equal bilaterally 2+. Neurological: CN II-XII intact, There are no obvious motor or sensory deficits. Coordination appears grossly intact. Speech is normal. Skin: Skin is warm and dry and no rashes or lesions are noted. Psychiatric: Cooperative, appropriate mood & affect, normal judgment. Limitations: no limitations Course Vital Signs 08/19/17 17:25 Temperature 98.5 F Pulse Rate 57 L Respiratory 17 Rate Blood Pressure 115/64 O2 Sat by Pulse 97 Oximetry Medical Decision Making - Medical Decision Making 47-year-old female presents to the emergency department chief complaint abdominal pain. At this time patient's CAT scan is reviewed additional left ovarian cyst. At this time patient is a history of these. We discussion follow -up with the EDUCATION SPEC for reevaluation we discussed return parameters all questions. The patient stated that she understood. There is QUESTIONS have been answered. - Lab Data Result diagrams: 08/19/17 17:33 08/19/17 17:33 Lab Results 08/19/17 08/19/17 08/19/17 Range/Units 17:33 17:33 17:33 WBC 9.6 (3.8-10.6) k/uL RBC 4.45 (3.80-5.40) m/uL Hgb 10.2 L (11.4-16.0) gm/dL Hct 34.5 (34.0-46.0) % MCV 77.5 L (80.0-100.0) fL MCH 22.9 L (25.0-35.0) pg MCHC 29.6 L (31.0-37.0) g/dL RDW 14.6 (11.5-15.5) % Plt Count 484 H (150-450) k/uL Neutrophils % 52 % Lymphocytes % 37 % Monocytes % 6 % Eosinophils % 2 % Basophils % 1 % Neutrophils # 5.0 (1.3-7.7) k/uL Lymphocytes # 3.6 (1.0-4.8) k/uL Monocytes # 0.5 (0-1.0) k/uL Eosinophils # 0.2 (0-0.7) k/uL Basophils # 0.1 (0-0.2) k/uL Hypochromasia Moderate PT 10.1 (9.0-12.0) sec INR 1.0 (<1.2) APTT 22.0 (22.0-30.0) sec Sodium 140 (137-145) mmol/L Potassium 4.0 (3.5-5.1) mmol/L Chloride 109 H (98-107) mmol/L Carbon Dioxide 23 (22-30) mmol/L Anion Gap 8 mmol/L BUN 17 (7-17) mg/dL Creatinine 0.70 (0.52-1.04) mg/dL Est GFR (MDRD) Af Amer >60 (>60 ml/min/1.73 sqM) Est GFR (MDRD) Non-Af >60 (>60 ml/min/1.73 sqM) Glucose 105 H (74-99) mg/dL Plasma Lactic Acid Adam (0.7-2.0) mmol/L Calcium 8.9 (8.4-10.2) mg/dL Total Bilirubin 0.3 (0.2-1.3) mg/dL AST 25 (14-36) U/L ALT 37 (9-52) U/L Alkaline Phosphatase 79 (38-126) U/L Total Protein 7.2 (6.3-8.2) g/dL Albumin 4.0 (3.5-5.0) g/dL Amylase 43 (30-110) U/L Lipase 77 (23-300) U/L Urine Color Urine Appearance (Clear) Urine pH (5.0-8.0) Ur Specific [place] (1.001-1.035) Urine Protein (Negative) Urine Glucose (UA) (Negative) Urine Ketones (Negative) Urine Blood (Negative) Urine Nitrite (Negative) Urine Bilirubin (Negative) Urine Urobilinogen (<2.0) mg/dL Ur Leukocyte Esterase (Negative) Urine WBC (0-5) /hpf Ur Squamous Epith Cells (0-4) /hpf Urine Mucus (None) /hpf 08/19/17 08/19/17 Range/Units 17:33 17:45 WBC (3.8-10.6) k/uL RBC (3.80-5.40) m/uL Hgb (11.4-16.0) gm/dL Hct (34.0-46.0) % MCV (80.0-100.0) fL MCH (25.0-35.0) pg MCHC (31.0-37.0) g/dL RDW (11.5-15.5) % Plt Count (150-450) k/uL Neutrophils % % Lymphocytes % % Monocytes % % Eosinophils % % Basophils % % Neutrophils # (1.3-7.7) k/uL Lymphocytes # (1.0-4.8) k/uL Monocytes # (0-1.0) k/uL Eosinophils # (0-0.7) k/uL Basophils # (0-0.2) k/uL Hypochromasia PT (9.0-12.0) sec INR (<1.2) APTT (22.0-30.0) sec Sodium (137-145) mmol/L Potassium (3.5-5.1) mmol/L Chloride (98-107) mmol/L Carbon Dioxide (22-30) mmol/L Anion Gap mmol/L BUN (7-17) mg/dL Creatinine (0.52-1.04) mg/dL Est GFR (MDRD) Af Amer (>60 ml/min/1.73 sqM) Est GFR (MDRD) Non-Af (>60 ml/min/1.73 sqM) Glucose (74-99) mg/dL Plasma Lactic Acid [place] 0.7 (0.7-2.0) mmol/L Calcium (8.4-10.2) mg/dL Total Bilirubin (0.2-1.3) mg/dL AST (14-36) U/L ALT (9-52) U/L Alkaline Phosphatase (38-126) U/L Total Protein (6.3-8.2) g/dL Albumin (3.5-5.0) g/dL Amylase (30-110) U/L Lipase (23-300) U/L Urine Color Light Yellow Urine Appearance Clear (Clear) Urine pH 6.0 (5.0-8.0) Ur Specific [place] 1.004 (1.001-1.035) Urine Protein Negative (Negative) Urine Glucose (UA) Negative (Negative) Urine Ketones Negative (Negative) Urine Blood Negative (Negative) Urine Nitrite Negative (Negative) Urine Bilirubin Negative (Negative) Urine Urobilinogen <2.0 (<2.0) mg/dL Ur Leukocyte Esterase Moderate H (Negative) Urine WBC 3 (0-5) /hpf Ur Squamous Epith Cells 1 (0-4) /hpf Urine Mucus Rare H (None) /hpf - Radiology Data Radiology results: report reviewed, image reviewed Disposition Clinical Impression: Left ovarian cyst Disposition: HOME SELF-CARE Condition: Stable Instructions: Ovarian Cyst (ED) Additional Instructions: Please use medication as discussed. Please follow up with family doctor if symptoms have not improved over the next two days. Please return to the emergency room if your symptoms increase or worsen or for any other concerns. Referrals: Macy Knight MD [Primary Care Provider] - 1-2 days Jannet Chou DO [Doctor of Osteopathic Medicine] - 1-2 days Time of Disposition: 18:37
[2017-08-19 17:47] LABS: Appearance,Urine Clear (Clear); Bilirubin,Urine Negative (Negative); Blood,Urine Negative (Negative); Color,Urine Light Yellow; Glucose,Urine (UA) Negative (Negative); Ketones,Urine Negative (Negative); Leukocyte Esterase,Urine Moderate (Negative); Mucus,Urine Rare /hpf; Nitrite,Urine Negative (Negative); Protein,Urine Negative (Negative); Specific Gravity,Urine 1.004 (1.001-1.035); Squamous Epithelial Cell,Urine 1 /hpf (0-4); Urobilinogen,Urine <2.0 mg/dL (<2.0); WBC,Urine 3 /hpf (0-5)
[2017-08-19 17:50] LABS: Basophils # (A) 0.1 k/uL (0-0.2); Basophils % (A) 1 %; Eosinophils # (A) 0.2 k/uL (0-0.7); Eosinophils % (A) 2 %; HCT 34.5 % (34.0-46.0); HGB 10.2 gm/dL (11.4-16.0); Hypochromasia Moderate; Lymphocytes # (A) 3.6 k/uL (1.0-4.8); Lymphocytes % (A) 37 %; MCH 22.9 pg (25.0-35.0); MCHC 29.6 g/dL (31.0-37.0); MCV 77.5 fL (80.0-100.0); Mean Platelet Volume 6.9; Monocytes # (A) 0.5 k/uL (0-1.0); Monocytes % (A) 6 %; Neutrophils % (A) 52 %; Platelet Count 484 k/uL (150-450); RBC 4.45 m/uL (3.80-5.40); RDW 14.6 % (11.5-15.5); WBC 9.6 k/uL (3.8-10.6)
[2017-08-19 17:54] LABS: ALT 37 U/L (9-52); AST 25 U/L (14-36); Alkaline Phosphatase 79 U/L (38-126); Amylase 43 U/L (30-110); Anion Gap 8 mmol/L; Blood Urea Nitrogen 17 mg/dL (7-17); Calcium 8.9 mg/dL (8.4-10.2); Carbon Dioxide 23 mmol/L (22-30); Chloride 109 mmol/L (98-107); Glucose 105 mg/dL (74-99); Lipase 77 U/L (23-300); Sodium 140 mmol/L (137-145); Total Bilirubin 0.3 mg/dL (0.2-1.3); Total Protein 7.2 g/dL (6.3-8.2)
[2017-08-19 18:00] LABS: Prothrombin Time 10.1 sec (9.0-12.0)
--- NOTE | 2017-08-19 18:22 | CT ---
EXAMINATION TYPE: CT abdomen pelvis wo con DATE OF EXAM: 08/19/2017 COMPARISON: 05/14/2017 HISTORY: Left sided pain with vomiting today CT DLP: 626.7 mGycm Automated exposure control for dose reduction was used. TECHNIQUE: Helical acquisition of images was performed from the lung bases through the pelvis. FINDINGS: Lung bases are clear. There is no pleural effusion. Liver and spleen appear normal. There are multipl e surgical clips at the stomach. There are clips from cholecystectomy. Bile ducts are not dilated. Th ere is no pancreatic mass. There is no adrenal mass. Kidneys have normal size and contour. There is n o hydronephrosis. There is no retroperitoneal adenopathy. There is no ascites. I see no intestinal wall thickening. There are no dilated loops. There is a 4 cm cystic area in the left adnexal region. Bladder distends smoothly. Uterus appears normal. There is n o free fluid in the pelvis. I see no bony destructive process. IMPRESSION: THERE IS A NEW 4 CM LEFT OVARIAN CYST COMPARED TO OLD EXAM. PREVIOUS SURGERY. NO EVIDENCE OF RENAL ST ONE OR OBSTRUCTION.
[2017-08-19] MEDS ORDERED: KETOROLAC 30 MG/ML 1 ML VIAL IVP STA (18:36)
[2017-08-19 18:47] VITALS: BP 96/53; PULSE 97
== END 2017-08-19 18:47 | disposition home or self-care (01) ==
LOC: EC 17:23
DX: N83.202 Unspecified ovarian cyst, left side (principal); R10.9 Unspecified abdominal pain; R11.2 Nausea with vomiting, unspecified; R19.7 Diarrhea, unspecified; E78.5 Hyperlipidemia, unspecified; I10 Essential (primary) hypertension; J45.909 Unspecified asthma, uncomplicated; E11.40 Type 2 diabetes mellitus with diabetic neuropathy, unspecified; K21.9 Gastro-esophageal reflux disease without esophagitis; K58.9 Irritable bowel syndrome, unspecified; F32.9 Major depressive disorder, single episode, unspecified; F41.9 Anxiety disorder, unspecified; Z79.51 Long term (current) use of inhaled steroids; Z79.84 Long term (current) use of oral hypoglycemic drugs; Z79.899 Other long term (current) drug therapy; Z88.5 Allergy status to narcotic agent; Z88.8 Allergy status to other drugs, medicaments and biological substances; Z91.010 Allergy to peanuts; Z91.013 Allergy to seafood; Z91.018 Allergy to other foods; Z91.041 Radiographic dye allergy status; Z91.048 Other nonmedicinal substance allergy status; Z90.49 Acquired absence of other specified parts of digestive tract; Z98.84 Bariatric surgery status
CPT/HCPCS: 36415; 80053; 82150; 83605; 83690; 85025; 85610; 85730; 81001; 87040; 87086; 74176; 99284; 96374; 96375 ×2; 96361; J2405; J1885; J1170

== ENCOUNTER 2017-09-27 12:56 | Emergency (ER) | payer OTHER ==
[2017-09-27] MEDS ORDERED: RX INFO: IV CONTRAST WAS GIVEN 1 EACH MISC MISCELLANE PRN (13:18)
[2017-09-27] MEDS ORDERED: ONDANSETRON 4 MG/2 ML VIAL IVP STA ×2 (13:18→17:41)
[2017-09-27] MEDS ORDERED: SODIUM CHLORIDE 0.9% 1,000 ML IV STA (13:18)
[2017-09-27] MEDS ORDERED: HYDROmorphone 0.5 MG/0.5 ML SYRINGE IVP STA ×3 (13:18→17:41)
[2017-09-27] MEDS ORDERED: SODIUM CHLORIDE 0.9% 500 ML IV STA (13:18)
[2017-09-27] MEDS ORDERED: diphenhydrAMINE 50 MG/ML 1 ML VIAL IVP STA (13:21)
[2017-09-27] MEDS ORDERED: methylPREDNISolone SOD SUCCI 125 MG/2 ML VIAL IV STA (13:37)
--- NOTE | 2017-09-27 13:44 | ED ---
General Adult HPI - General Chief complaint: Abdominal Pain Stated complaint: ABD pain Time Seen by Provider: 09/27/17 12:59 Source: patient, EMS, RN notes reviewed, old records reviewed Mode of arrival: EMS Limitations: no limitations - History of Present Illness Initial comments: 47-year-old female history of gastric bypass, Felix-en-Y, with multiple small bowel obstructions presents for evaluation of nausea vomiting and severe abdominal pain. Patient states her last bowel movement was yesterday evening, she has had no flatus or stool output since that time. She has had worsening vomiting with dry heaving. Pain is epigastric and periumbilical. She states this feels similar to her previous small bowel obstructions. [place] [facility] [place] She denies any chest pain or shortness of breath. Denies URI symptoms. Denies fever or chills. Denies dysuria. Lactic acid normal. Case discussed with Dr. Castillo, she was stable for outpatient follow-up. - Related Data Home Medications Medication Instructions Recorded Confirmed Furosemide [Lasix] 20 mg PO BID 09/19/16 09/27/17 Hydrocodone/Acetaminophen [Blandon 1 tab PO Q6H PRN 03/06/17 09/27/17 5-325] traMADol HCl [Ultram] 50 mg PO Q6H PRN 03/29/17 09/27/17 Diazepam [Valium] 10 mg PO TID PRN 04/12/17 09/27/17 Escitalopram Oxalate [Lexapro] 10 mg PO DAILY 05/04/17 09/27/17 Temazepam 30 mg PO HS PRN 05/04/17 09/27/17 Cetirizine HCl [Zyrtec] 10 mg PO DAILY 08/19/17 09/27/17 Ketorolac [Toradol] 10 mg PO Q6HR PRN 08/19/17 09/27/17 Ondansetron [Zofran] 8 mg PO BID PRN 08/19/17 09/27/17 diphenhydrAMINE [Benadryl] 50 mg PO Q4H 08/19/17 09/27/17 Acetaminophen Tab [Tylenol Tab] 500 mg PO Q6H PRN 09/27/17 09/27/17 Beclomethasone Dipropionate [Qvar 2 puff INHALATION RT-BID 09/27/17 09/27/17 80 mcg] Ibuprofen [Motrin] 800 mg PO TID PRN 09/27/17 09/27/17 LORazepam [Ativan] 0.5 mg PO DAILY PRN 09/27/17 09/27/17 Propranolol HCl [Inderal] 60 mg PO HS 09/27/17 09/27/17 Rizatriptan Benzoate [Maxalt] 10 mg PO DAILY PRN 09/27/17 09/27/17 buPROPion HCL [Wellbutrin XL] 300 mg PO DAILY 09/27/17 09/27/17 hydrOXYzine HCL [Atarax] 50 mg PO Q4H PRN 09/27/17 09/27/17 metFORMIN HCL [Glucophage] 500 mg PO DAILY 09/27/17 09/27/17 Allergies Allergy/AdvReac Type Severity Reaction Status Date / Time oxycodone [From Percocet] Allergy Unknown Swelling; Verified 09/27/17 13:17 (WAS ABLE TO TAKE ALONG WITH BENADRYL) apricot Allergy Dyspnea Verified 09/27/17 13:17 barium sulfate Allergy Anaphylaxis Verified 09/27/17 13:17 [From Readi-Cat] codeine Allergy Anaphylaxis Verified 09/27/17 13:17 hydrocodone [From Lortab] Allergy Swelling Verified 09/27/17 13:17 Iodinated Contrast- Oral and Allergy Anaphylaxis Verified 09/27/17 13:17 IV Dye iodine Allergy Rash/Hives Verified 09/27/17 13:17 morphine Allergy Rash/Hives Verified 09/27/17 13:17 peach Allergy Swelling Verified 09/27/17 13:17 peanut Allergy Swelling Verified 09/27/17 13:17 peanut oil Allergy Anaphylaxis Verified 09/27/17 13:17 shellfish derived [Shellfish] Allergy Anaphylaxis Verified 09/27/17 13:17 sucralfate [From Carafate] Allergy Swelling Verified 09/27/17 13:17 Sulfa (Sulfonamide Allergy Anaphylaxis Verified 09/27/17 13:17 Antibiotics) tree nut [Nut] Allergy Swelling Verified 09/27/17 13:17 Review of Systems ROS Statement: Those systems with pertinent positive or pertinent negative responses have been documented in the HPI. ROS Other: All systems not noted in ROS Statement are negative. Past Medical History Past Medical History: Asthma, Diabetes Mellitus, GERD/Reflux, Hyperlipidemia, Hypertension, Osteoarthritis (OA), Pneumonia Additional Past Medical History / Comment(s): NIDDM. diabetic neuropathy eli feet, migraines, cervical disc disease, DDD, eli tinnitis, arthiritis bilateral shoulders, poss fibromyalgia-pt in process of being diagnosed, seasonal allergies, IBS, HX R arm fx yrs ago, R ovarian cyst, hiatal hernia, UTIs, urinary calculus, pancreatitis x 2, stomach ulcer. History of Any Multi-Drug Resistant Organisms: C-DIFF Date of last positivie culture/infection: 2012 MDRO Source:: stool Past Surgical History: Appendectomy, Bariatric Surgery, Cholecystectomy, Tonsillectomy Additional Past Surgical History / Comment(s): 2010 felix-en-Y, fistula repair 2011, 2011 gastric bypass revision, bowel resection, lap gastrojejunostomy anastamosis revision, EGD and colonoscopy, cone bx-cervical cancer remove with cryo, L fallopian tube removed due to cyst, picc line in and out, CERVICAL FUSION 12/21/16. [facility]. Past Anesthesia/Blood Transfusion Reactions: Family History of Problems w/ Anesthesia, Motion Sickness, Postoperative Nausea & Vomiting (PONV) Additional Past Anesthesia/Blood Transfusion Reaction / Comment(s): Pt states she has never recieved blood. FAMILY HX PONV. Past Psychological History: Anxiety, Depression Smoking Status: Never smoker Past Alcohol Use History: None Reported Past Drug Use History: None Reported - Past Family History Brother(s) Family Medical History: Deep Vein Thrombosis (DVT) Father Family Medical History: Cancer Additional Family Medical History / Comment(s): Father had poss colon and lung cancer and at age 73yrs. Mother Family Medical History: Coronary Artery Disease (CAD), Diabetes Mellitus, Deep Vein Thrombosis (DVT), Hypertension Additional Family Medical History / Comment(s): Mother is alive and 73 yrs old. General Exam Limitations: no limitations General appearance: alert, in no apparent distress Head exam: Present: atraumatic, normocephalic Eye exam: Present: normal appearance, PERRL ENT exam: Present: mucous membranes dry Neck exam: Present: normal inspection. Absent: tenderness, meningismus Respiratory exam: Present: normal lung sounds bilaterally. Absent: respiratory distress Cardiovascular Exam: Present: regular rate, normal rhythm GI/Abdominal exam: Present: soft, distended, tenderness, diminished bowel sounds Extremities exam: Present: normal inspection, normal capillary refill. Absent: pedal edema Neurological exam: Present: alert, oriented X3, CN II-XII intact. Absent: motor sensory deficit Psychiatric exam: Present: normal affect, normal mood Skin exam: Present: warm, dry, intact. Absent: cyanosis, diaphoretic Course Vital Signs 09/27/17 09/27/17 12:58 15:36 Temperature 98.5 F 98.3 F Pulse Rate 99 97 Respiratory 14 18 Rate Blood Pressure 115/73 121/58 O2 Sat by Pulse 95 96 Oximetry Medical Decision Making - Medical Decision Making 47-year-old female presenting with abdominal pain. Patient does have chronic abdominal pain and history of obstruction. CT is obtained, this is negative for small bowel obstruction. Laboratory studies reveal normal white blood cell count, stable hemoglobin, normal lites, urinalysis is clear - Lab Data Result diagrams: 09/27/17 14:13 09/27/17 14:13 Lab Results 09/27/17 09/27/17 09/27/17 Range/Units 14:00 14:13 14:13 WBC 9.4 (3.8-10.6) k/uL RBC 4.49 (3.80-5.40) m/uL Hgb 10.4 L (11.4-16.0) gm/dL Hct 34.0 (34.0-46.0) % MCV 75.7 L (80.0-100.0) fL MCH 23.0 L (25.0-35.0) pg MCHC 30.4 L (31.0-37.0) g/dL RDW 14.8 (11.5-15.5) % Plt Count 377 (150-450) k/uL Neutrophils % 58 % Lymphocytes % 33 % Monocytes % 5 % Eosinophils % 1 % Basophils % 1 % Neutrophils # 5.5 (1.3-7.7) k/uL Lymphocytes # 3.1 (1.0-4.8) k/uL Monocytes # 0.5 (0-1.0) k/uL Eosinophils # 0.1 (0-0.7) k/uL Basophils # 0.1 (0-0.2) k/uL Hypochromasia Moderate Microcytosis Slight PT (9.0-12.0) sec INR (<1.2) APTT (22.0-30.0) sec Sodium 139 (137-145) mmol/L Potassium 4.1 (3.5-5.1) mmol/L Chloride 101 (98-107) mmol/L Carbon Dioxide 26 (22-30) mmol/L Anion Gap 12 mmol/L BUN 15 (7-17) mg/dL Creatinine 0.70 (0.52-1.04) mg/dL Est GFR (MDRD) Af Amer >60 (>60 ml/min/1.73 sqM) Est GFR (MDRD) Non-Af >60 (>60 ml/min/1.73 sqM) Glucose 141 H (74-99) mg/dL Plasma Lactic Acid Adam (0.7-2.0) mmol/L Calcium 9.2 (8.4-10.2) mg/dL Total Bilirubin 0.3 (0.2-1.3) mg/dL AST 27 (14-36) U/L ALT 27 (9-52) U/L Alkaline Phosphatase 98 (38-126) U/L Total Protein 7.4 (6.3-8.2) g/dL Albumin 4.2 (3.5-5.0) g/dL Amylase 53 (30-110) U/L Lipase 58 (23-300) U/L Urine Color Yellow Urine Appearance Cloudy H (Clear) Urine pH 5.5 (5.0-8.0) Ur Specific [place] 1.020 (1.001-1.035) Urine Protein Trace H (Negative) Urine Glucose (UA) Negative (Negative) Urine Ketones Negative (Negative) Urine Blood Negative (Negative) Urine Nitrite Negative (Negative) Urine Bilirubin Negative (Negative) Urine Urobilinogen <2.0 (<2.0) mg/dL Ur Leukocyte Esterase Negative (Negative) Urine WBC 3 (0-5) /hpf Ur Squamous Epith Cells 11 H (0-4) /hpf Urine Mucus Occasional H (None) /hpf 09/27/17 09/27/17 Range/Units 14:13 15:07 WBC (3.8-10.6) k/uL RBC (3.80-5.40) m/uL Hgb (11.4-16.0) gm/dL Hct (34.0-46.0) % MCV (80.0-100.0) fL MCH (25.0-35.0) pg MCHC (31.0-37.0) g/dL RDW (11.5-15.5) % Plt Count (150-450) k/uL Neutrophils % % Lymphocytes % % Monocytes % % Eosinophils % % Basophils % % Neutrophils # (1.3-7.7) k/uL Lymphocytes # (1.0-4.8) k/uL Monocytes # (0-1.0) k/uL Eosinophils # (0-0.7) k/uL Basophils # (0-0.2) k/uL Hypochromasia Microcytosis PT 9.9 (9.0-12.0) sec INR 1.0 (<1.2) APTT 22.0 (22.0-30.0) sec Sodium (137-145) mmol/L Potassium (3.5-5.1) mmol/L Chloride (98-107) mmol/L Carbon Dioxide (22-30) mmol/L Anion Gap mmol/L BUN (7-17) mg/dL Creatinine (0.52-1.04) mg/dL Est GFR (MDRD) Af Amer (>60 ml/min/1.73 sqM) Est GFR (MDRD) Non-Af (>60 ml/min/1.73 sqM) Glucose (74-99) mg/dL Plasma Lactic Acid Adam 1.4 (0.7-2.0) mmol/L Calcium (8.4-10.2) mg/dL Total Bilirubin (0.2-1.3) mg/dL AST (14-36) U/L ALT (9-52) U/L Alkaline Phosphatase (38-126) U/L Total Protein (6.3-8.2) g/dL Albumin (3.5-5.0) g/dL Amylase (30-110) U/L Lipase (23-300) U/L Urine Color Urine Appearance (Clear) Urine pH (5.0-8.0) Ur Specific [place] (1.001-1.035) Urine Protein (Negative) Urine Glucose (UA) (Negative) Urine Ketones (Negative) Urine Blood (Negative) Urine Nitrite (Negative) Urine Bilirubin (Negative) Urine Urobilinogen (<2.0) mg/dL Ur Leukocyte Esterase (Negative) Urine WBC (0-5) /hpf Ur Squamous Epith Cells (0-4) /hpf Urine Mucus (None) /hpf Disposition Clinical Impression: Chronic abdominal pain Disposition: HOME SELF-CARE Condition: Good Instructions: Abdominal Pain (ED) Referrals: Macy Knight MD [Primary Care Provider] - 1-2 days Time of Disposition: 17:39
[2017-09-27 14:25] LABS: Appearance,Urine Cloudy (Clear); Bilirubin,Urine Negative (Negative); Blood,Urine Negative (Negative); Color,Urine Yellow; Glucose,Urine (UA) Negative (Negative); Ketones,Urine Negative (Negative); Leukocyte Esterase,Urine Negative (Negative); Mucus,Urine Occasional /hpf; Nitrite,Urine Negative (Negative); PH, Urine 5.5 (5.0-8.0); Protein,Urine Trace (Negative); Squamous Epithelial Cell,Urine 11 /hpf (0-4); Urobilinogen,Urine <2.0 mg/dL (<2.0); WBC,Urine 3 /hpf (0-5)
[2017-09-27 14:29] LABS: Basophils # (A) 0.1 k/uL (0-0.2); Basophils % (A) 1 %; Eosinophils # (A) 0.1 k/uL (0-0.7); Eosinophils % (A) 1 %; HGB 10.4 gm/dL (11.4-16.0); Hypochromasia Moderate; Lymphocytes # (A) 3.1 k/uL (1.0-4.8); Lymphocytes % (A) 33 %; MCHC 30.4 g/dL (31.0-37.0); MCV 75.7 fL (80.0-100.0); Mean Platelet Volume 6.7; Microcytosis Slight; Monocytes # (A) 0.5 k/uL (0-1.0); Monocytes % (A) 5 %; Neutrophils # (A) 5.5 k/uL (1.3-7.7); Neutrophils % (A) 58 %; Platelet Count 377 k/uL (150-450); RBC 4.49 m/uL (3.80-5.40); RDW 14.8 % (11.5-15.5); WBC 9.4 k/uL (3.8-10.6)
[2017-09-27 14:39] LABS: ALT 27 U/L (9-52); AST 27 U/L (14-36); Albumin 4.2 g/dL (3.5-5.0); Alkaline Phosphatase 98 U/L (38-126); Amylase 53 U/L (30-110); Anion Gap 12 mmol/L; Blood Urea Nitrogen 15 mg/dL (7-17); Calcium 9.2 mg/dL (8.4-10.2); Carbon Dioxide 26 mmol/L (22-30); Chloride 101 mmol/L (98-107); Glucose 141 mg/dL (74-99); Lipase 58 U/L (23-300); Potassium 4.1 mmol/L (3.5-5.1); Sodium 139 mmol/L (137-145); Total Bilirubin 0.3 mg/dL (0.2-1.3); Total Protein 7.4 g/dL (6.3-8.2)
[2017-09-27 14:42] LABS: Prothrombin Time 9.9 sec (9.0-12.0)
--- NOTE | 2017-09-27 15:14 | CT ---
EXAMINATION TYPE: CT abdomen pelvis w con DATE OF EXAM: 09/27/2017 HISTORY: Abd pain, constipation and abdominal distention. CT DLP: 1678mGycm Automated Exposure Control for Dose Reduction was Utilized. CONTRAST: CT scan of the abdomen and pelvis is performed without oral but with IV Contrast, patient injected wi th 100ml mL of Omnipaque 300. COMPARISON: CT abdomen and pelvis August 19, 2017 FINDINGS: LUNG BASES: No significant abnormality is appreciated. LIVER/GB: Cholecystectomy clips are redemonstrated. There are additional surgical clips and sutures s uperior to this redemonstrated. PANCREAS: No significant abnormality is seen. SPLEEN: No significant abnormality is seen. ADRENALS: No significant abnormality is seen. KIDNEYS: No significant abnormality is seen. BOWEL: Surgical clips at base of cecum from appendectomy are identified. Additional sutures are seen inferior to this. Evaluation of the bowel is slightly suboptimal secondary to lack of enteric contras t. There is no suspicious small or large bowel dilatation. Surgical changes from gastric bypass surge ry epigastric region are redemonstrated. There are additional surgical sutures in the left upper quad rant small bowel redemonstrated. UTERUS/ADNEXA: Previously visualized enlarged left ovary is now smaller in size axial image 82 slight ly larger than opposite right ovary. There are few scattered pelvic phleboliths redemonstrated. LYMPH NODES: No greater than 1cm abdominal or pelvic lymph nodes are appreciated. OSSEOUS STRUCTURES: No significant abnormality is seen. OTHER: No significant additional abnormality is seen. IMPRESSION: No bowel obstruction is seen. No significant new or acute finding identified to account f or patient's symptoms.
[2017-09-27 15:37] VITALS: RESP 18
[2017-09-27 18:01] VITALS: BP 99/57; PULSE 86; TEMP 98.5
== END 2017-09-27 18:17 | disposition home or self-care (01) ==
LOC: EC 12:56
DX: G89.29 Other chronic pain (principal); R10.13 Epigastric pain; R10.33 Periumbilical pain; R14.0 Abdominal distension (gaseous); R11.2 Nausea with vomiting, unspecified; I10 Essential (primary) hypertension; E11.40 Type 2 diabetes mellitus with diabetic neuropathy, unspecified; J45.909 Unspecified asthma, uncomplicated; F32.9 Major depressive disorder, single episode, unspecified; F41.9 Anxiety disorder, unspecified; Z79.51 Long term (current) use of inhaled steroids; Z79.899 Other long term (current) drug therapy; Z91.018 Allergy to other foods; Z88.2 Allergy status to sulfonamides; Z88.8 Allergy status to other drugs, medicaments and biological substances; Z91.013 Allergy to seafood; Z91.010 Allergy to peanuts; Z88.5 Allergy status to narcotic agent; Z91.048 Other nonmedicinal substance allergy status; Z91.041 Radiographic dye allergy status; Z90.49 Acquired absence of other specified parts of digestive tract; Z98.84 Bariatric surgery status
CPT/HCPCS: 36415; 80053; 82150; 83605; 83690; 85025; 85610; 85730; 81001; 74177; 99285; 96374; 96375 ×3; 96376 ×3; 96361 ×4; J1200; J2930; J2405; Q9967; J1170

== ENCOUNTER → 2018-01-09 | Outpatient (CLI) | payer OTHER ==
--- NOTE | 2018-01-10 09:38 | MM ---
Reason for exam: screening (asymptomatic). Last mammogram was performed 1 year and 6 months ago. History: Patient has history of other cancer at age 23 and is nulliparous. Family history of breast cancer in grandmother. Taking unspecified hormones beginning at age 40. Physical Findings: A clinical breast exam by your physician is recommended on an annual basis and results should be correlated with mammographic findings. MG Screening Mammo w CAD Bilateral CC and MLO view(s) were taken. Prior study comparison: June 28, 2016, bilateral MG 3d screening mammo w/cad. September 05, 2013, bilateral digital screening mammo w/CAD. There are scattered fibroglandular densities. Finding: There are typically benign calcifications in both breasts. No suspicious abnormality. ASSESSMENT: Benign, BI-RAD 2 RECOMMENDATION: Routine screening mammogram of both breasts in 1 year. Manage on a clinical basis with regard to chronic right breast pain.
== END | disposition home or self-care (01) ==
LOC: RADMAMWWP 16:45
PROVIDERS: ATTEND Family Medicine
DX: Z12.31 Encounter for screening mammogram for malignant neoplasm of breast (principal)
CPT/HCPCS: 77067

== ENCOUNTER 2018-01-15 19:07 | Emergency (ER) | payer OTHER ==
[2018-01-15 19:20] VITALS: RESP 18
[2018-01-15] MEDS ORDERED: SODIUM CHLORIDE 0.9% 1,000 ML IV STA ×2 (19:56)
[2018-01-15] MEDS ORDERED: MORPHINE SULFATE 4 MG/ML SYRINGE IVP STA (20:18)
[2018-01-15] MEDS ORDERED: methylPREDNISolone SOD SUCCI 125 MG/2 ML VIAL IV STA (20:18)
[2018-01-15] MEDS ORDERED: diphenhydrAMINE 50 MG/ML 1 ML VIAL IVP STA (20:18)
[2018-01-15] MEDS ORDERED: FAMOTIDINE 20 MG/2 ML VIAL IV STA (20:18)
[2018-01-15] MEDS ORDERED: RX INFO: IV CONTRAST WAS GIVEN 1 EACH MISC MISCELLANE PRN (20:19)
[2018-01-15 20:41] LABS: Anisocytosis Slight; Basophils # (A) 0.1 k/uL (0-0.2); Basophils % (A) 1 %; Eosinophils # (A) 0.2 k/uL (0-0.7); Eosinophils % (A) 2 %; HCT 32.5 % (34.0-46.0); HGB 9.9 gm/dL (11.4-16.0); Hypochromasia Marked; Lymphocytes # (A) 3.7 k/uL (1.0-4.8); Lymphocytes % (A) 32 %; MCHC 30.5 g/dL (31.0-37.0); MCV 72.1 fL (80.0-100.0); Mean Platelet Volume 6.7; Microcytosis Moderate; Monocytes # (A) 0.5 k/uL (0-1.0); Monocytes % (A) 4 %; Neutrophils # (A) 6.7 k/uL (1.3-7.7); Neutrophils % (A) 59 %; Platelet Count 402 k/uL (150-450); RBC 4.51 m/uL (3.80-5.40); RDW 16.1 % (11.5-15.5); WBC 11.3 k/uL (3.8-10.6)
[2018-01-15 20:47] LABS: Appearance,Urine Cloudy (Clear); Bacteria,Urine Occasional /hpf; Bilirubin,Urine Negative (Negative); Blood,Urine Negative (Negative); Color,Urine Colorless; Glucose,Urine (UA) Negative (Negative); Ketones,Urine Negative (Negative); Leukocyte Esterase,Urine Negative (Negative); Nitrite,Urine Negative (Negative); PH, Urine 6.5 (5.0-8.0); Protein,Urine Negative (Negative); RBC,Urine <1 /hpf (0-5); Specific Gravity,Urine 1.003 (1.001-1.035); Squamous Epithelial Cell,Urine 4 /hpf (0-4); Urobilinogen,Urine <2.0 mg/dL (<2.0); WBC,Urine 1 /hpf (0-5)
[2018-01-15 20:50] LABS: Prothrombin Time 9.9 sec (9.0-12.0)
[2018-01-15 21:00] LABS: Partial Thromboplastin Time 20.7 sec (22.0-30.0)
[2018-01-15 21:05] LABS: Albumin 4.5 g/dL (3.5-5.0); Calcium 9.4 mg/dL (8.4-10.2); Potassium 3.8 mmol/L (3.5-5.1); Total Bilirubin 0.4 mg/dL (0.2-1.3); Total Protein 7.3 g/dL (6.3-8.2)
--- NOTE | 2018-01-15 21:43 | ED ---
Abdominal Pain HPI - General Chief Complaint: Abdominal Pain Stated Complaint: abd pain Time Seen by Provider: 01/15/18 19:42 Source: patient, RN notes reviewed, old records reviewed Mode of arrival: ambulatory Limitations: no limitations - History of Present Illness Initial Comments: This patient's a 47-year-old female well-known to the emergency department for chronic abdominal pain presents chief complaint of nausea vomiting and severe abdominal pain for the past 3 days. She states that her surgeon Dr. Connell at [facility] has performed a Sabino-en-Y for her in 2010. She's had multiple surgeries including revision of the Sabino-en-Y and appendectomy and revision active appendectomy by Dr. Connell. She's had some scopes by Dr. Castillo. Patient reports that when she was last in the emergency room for this pain she was diagnosed with intussusception. Patient states that she's had no bloody stools. She reports that today her pain seems similar to that time. Patient states that she is scheduled to have a upper GI scope by Dr. Connell. Patient states that she's had no fever or chills. Denies any urinary symptoms. - Related Data Home Medications Medication Instructions Recorded Confirmed Furosemide [Lasix] 20 mg PO DAILY 09/19/16 01/15/18 traMADol HCl [Ultram] 50 mg PO Q6H PRN 03/29/17 01/15/18 Cetirizine HCl [Zyrtec] 10 mg PO DAILY 08/19/17 01/15/18 Ketorolac [Toradol] 10 mg PO Q6HR PRN 08/19/17 01/15/18 Ondansetron [Zofran] 4 mg PO BID PRN 08/19/17 01/15/18 Acetaminophen Tab [Tylenol Tab] 500 mg PO Q6H PRN 09/27/17 01/15/18 Beclomethasone Dipropionate [Qvar 2 puff INHALATION RT-BID 09/27/17 01/15/18 80 mcg] LORazepam [Ativan] 0.5 mg PO DAILY PRN 09/27/17 01/15/18 Rizatriptan Benzoate [Maxalt] 10 mg PO DAILY PRN 09/27/17 01/15/18 buPROPion HCL [Wellbutrin XL] 300 mg PO DAILY 09/27/17 01/15/18 metFORMIN HCL [Glucophage] 250 mg PO DAILY 09/27/17 01/15/18 Biotin 300 mcg PO BID 01/15/18 01/15/18 Docusate [Colace] 100 mg PO DAILY 01/15/18 01/15/18 Escitalopram [Lexapro] 20 mg PO DAILY 01/15/18 01/15/18 Multivitamin [Multivitamins Adult 2 tab PO DAILY 01/15/18 01/15/18 Gummies] Omeprazole [PriLOSEC] 20 mg PO AC-BRKFST 01/15/18 01/15/18 Propranolol HCl [Inderal LA] 80 mg PO DAILY PRN 01/15/18 01/15/18 Simvastatin [Zocor] 40 mg PO HS 01/15/18 01/15/18 Tamsulosin HCl [Flomax] 0.4 mg PO HS 01/15/18 01/15/18 Allergies Allergy/AdvReac Type Severity Reaction Status Date / Time oxycodone [From Percocet] Allergy Unknown Swelling; Verified 01/15/18 19:50 (WAS ABLE TO TAKE ALONG WITH BENADRYL) apricot Allergy Dyspnea Verified 01/15/18 19:50 barium sulfate Allergy Anaphylaxis Verified 01/15/18 19:50 [From Readi-Cat] codeine Allergy Anaphylaxis Verified 01/15/18 19:50 hydrocodone [From Lortab] Allergy Swelling Verified 01/15/18 19:50 Iodinated Contrast- Oral and Allergy Anaphylaxis Verified 01/15/18 19:50 IV Dye iodine Allergy Rash/Hives Verified 01/15/18 19:50 morphine Allergy Rash/Hives Verified 01/15/18 19:50 peach Allergy Swelling Verified 01/15/18 19:50 peanut Allergy Swelling Verified 01/15/18 19:50 peanut oil Allergy Anaphylaxis Verified 01/15/18 19:50 shellfish derived [Shellfish] Allergy Anaphylaxis Verified 01/15/18 19:50 sucralfate [From Carafate] Allergy Swelling Verified 01/15/18 19:50 Sulfa (Sulfonamide Allergy Anaphylaxis Verified 01/15/18 19:50 Antibiotics) tree nut [Nut] Allergy Swelling Verified 01/15/18 19:50 Review of Systems ROS Statement: Those systems with pertinent positive or pertinent negative responses have been documented in the HPI. ROS Other: All systems not noted in ROS Statement are negative. Past Medical History Past Medical History: Asthma, Diabetes Mellitus, GERD/Reflux, Hyperlipidemia, Hypertension, Osteoarthritis (OA), Pneumonia Additional Past Medical History / Comment(s): NIDDM. diabetic neuropathy eli feet, migraines, cervical disc disease, DDD, eli tinnitis, arthiritis bilateral shoulders, poss fibromyalgia-pt in process of being diagnosed, seasonal allergies, IBS, HX R arm fx yrs ago, R ovarian cyst, hiatal hernia, UTIs, urinary calculus, pancreatitis x 2, stomach ulcer. History of Any Multi-Drug Resistant Organisms: C-DIFF Date of last positivie culture/infection: 2012 MDRO Source:: stool Past Surgical History: Appendectomy, Bariatric Surgery, Cholecystectomy, Tonsillectomy Additional Past Surgical History / Comment(s): 2010 sabino-en-Y, fistula repair 2011, 2011 gastric bypass revision, bowel resection, lap gastrojejunostomy anastamosis revision, EGD and colonoscopy, cone bx-cervical cancer remove with cryo, L fallopian tube removed due to cyst, picc line in and out, CERVICAL FUSION 12/21/16. [facility]. Past Anesthesia/Blood Transfusion Reactions: Family History of Problems w/ Anesthesia, Motion Sickness, Postoperative Nausea & Vomiting (PONV) Additional Past Anesthesia/Blood Transfusion Reaction / Comment(s): Pt states she has never recieved blood. FAMILY HX PONV. Past Psychological History: Anxiety, Depression Smoking Status: Never smoker Past Alcohol Use History: None Reported Past Drug Use History: None Reported - Past Family History Brother(s) Family Medical History: Deep Vein Thrombosis (DVT) Father Family Medical History: Cancer Additional Family Medical History / Comment(s): Father had poss colon and lung cancer and at age 73yrs. Mother Family Medical History: Coronary Artery Disease (CAD), Diabetes Mellitus, Deep Vein Thrombosis (DVT), Hypertension Additional Family Medical History / Comment(s): Mother is alive and 73 yrs old. General Exam - General Exam Comments Initial Comments: Patient is a 47-year-old female. Alert and oriented. No significant distress. Limitations: no limitations General appearance: alert, in no apparent distress Head exam: Present: atraumatic, normocephalic, normal inspection Eye exam: Present: normal appearance, PERRL, EOMI. Absent: scleral icterus, conjunctival injection, periorbital swelling ENT exam: Present: normal exam, mucous membranes moist Neck exam: Present: normal inspection. Absent: tenderness, meningismus, lymphadenopathy Respiratory exam: Present: normal lung sounds bilaterally. Absent: respiratory distress, wheezes, rales, rhonchi, stridor Cardiovascular Exam: Present: regular rate, normal rhythm, normal heart sounds. Absent: systolic murmur, diastolic murmur, rubs, gallop, clicks GI/Abdominal exam: Present: soft, tenderness (diffuse), normal bowel sounds. Absent: distended, guarding, rebound, rigid Extremities exam: Present: normal inspection, full ROM, normal capillary refill. Absent: tenderness, pedal edema, joint swelling, calf tenderness Back exam: Present: normal inspection Neurological exam: Present: alert, oriented X3, CN II-XII intact Psychiatric exam: Present: normal affect, normal mood Course Vital Signs 01/15/18 01/15/18 01/15/18 19:18 22:12 23:16 Temperature 98.2 F 98.6 F Pulse Rate 81 76 74 Respiratory 18 18 18 Rate Blood Pressure 114/67 109/73 107/76 O2 Sat by Pulse 98 97 99 Oximetry Medical Decision Making - Medical Decision Making This patient's a 47-year-old female well-known to the emergency department for chronic abdominal pain presents chief complaint of nausea vomiting and severe abdominal pain for the past 3 days. She states that her surgeon Dr. Connell at [facility] has performed a Sabino-en-Y for her in 2010. She's had multiple surgeries including revision of the Sabino-en-Y and appendectomy and revision active appendectomy by Dr. Connell. She's had some scopes by Dr. Castillo. Patient reports that when she was last in the emergency room for this pain she was diagnosed with intussusception. Patient states that she's had no bloody stools. She reports that today her pain seems similar to that time. At this time labs were reviewed, adn negative for any acute process. PAtient has significant tenderness. CT scan completed. CT shows no evidence of any acute process. Evidenec of post surgical changes. Patient informed of results. Discussed pain could be from adhesions. Discussed follow up with surgeon. Patient agrees to treatment plan and will comply. REturn parameters discused. - Lab Data Result diagrams: 01/15/18 20:12 01/15/18 20:12 Lab Results 01/15/18 01/15/18 01/15/18 Range/Units 20:12 20:12 20:12 WBC 11.3 H (3.8-10.6) k/uL RBC 4.51 (3.80-5.40) m/uL Hgb 9.9 L (11.4-16.0) gm/dL Hct 32.5 L (34.0-46.0) % MCV 72.1 L (80.0-100.0) fL MCH 22.0 L (25.0-35.0) pg MCHC 30.5 L (31.0-37.0) g/dL RDW 16.1 H (11.5-15.5) % Plt Count 402 (150-450) k/uL Neutrophils % 59 % Lymphocytes % 32 % Monocytes % 4 % Eosinophils % 2 % Basophils % 1 % Neutrophils # 6.7 (1.3-7.7) k/uL Lymphocytes # 3.7 (1.0-4.8) k/uL Monocytes # 0.5 (0-1.0) k/uL Eosinophils # 0.2 (0-0.7) k/uL Basophils # 0.1 (0-0.2) k/uL Hypochromasia Marked Anisocytosis Slight Microcytosis Moderate PT 9.9 (9.0-12.0) sec INR 1.0 (<1.2) APTT 20.7 L (22.0-30.0) sec Sodium 142 (137-145) mmol/L Potassium 3.8 (3.5-5.1) mmol/L Chloride 104 (98-107) mmol/L Carbon Dioxide 23 (22-30) mmol/L Anion Gap 15 mmol/L BUN 16 (7-17) mg/dL Creatinine 0.89 (0.52-1.04) mg/dL Est GFR (CKD-EPI)AfAm 89 (>60 ml/min/1.73 sqM) Est GFR (CKD-EPI)NonAf 78 (>60 ml/min/1.73 sqM) Glucose 98 (74-99) mg/dL Calcium 9.4 (8.4-10.2) mg/dL Total Bilirubin 0.4 (0.2-1.3) mg/dL AST 31 (14-36) U/L ALT 34 (9-52) U/L Alkaline Phosphatase 110 (38-126) U/L Total Protein 7.3 (6.3-8.2) g/dL Albumin 4.5 (3.5-5.0) g/dL Amylase 55 (30-110) U/L Lipase 96 (23-300) U/L Urine Color Urine Appearance (Clear) Urine pH (5.0-8.0) Ur Specific [place] (1.001-1.035) Urine Protein (Negative) Urine Glucose (UA) (Negative) Urine Ketones (Negative) Urine Blood (Negative) Urine Nitrite (Negative) Urine Bilirubin (Negative) Urine Urobilinogen (<2.0) mg/dL Ur Leukocyte Esterase (Negative) Urine RBC (0-5) /hpf Urine WBC (0-5) /hpf Ur Squamous Epith Cells (0-4) /hpf Urine Bacteria (None) /hpf 01/15/18 Range/Units 20:12 WBC (3.8-10.6) k/uL RBC (3.80-5.40) m/uL Hgb (11.4-16.0) gm/dL Hct (34.0-46.0) % MCV (80.0-100.0) fL MCH (25.0-35.0) pg MCHC (31.0-37.0) g/dL RDW (11.5-15.5) % Plt Count (150-450) k/uL Neutrophils % % Lymphocytes % % Monocytes % % Eosinophils % % Basophils % % Neutrophils # (1.3-7.7) k/uL Lymphocytes # (1.0-4.8) k/uL Monocytes # (0-1.0) k/uL Eosinophils # (0-0.7) k/uL Basophils # (0-0.2) k/uL Hypochromasia Anisocytosis Microcytosis PT (9.0-12.0) sec INR (<1.2) APTT (22.0-30.0) sec Sodium (137-145) mmol/L Potassium (3.5-5.1) mmol/L Chloride (98-107) mmol/L Carbon Dioxide (22-30) mmol/L Anion Gap mmol/L BUN (7-17) mg/dL Creatinine (0.52-1.04) mg/dL Est GFR (CKD-EPI)AfAm (>60 ml/min/1.73 sqM) Est GFR (CKD-EPI)NonAf (>60 ml/min/1.73 sqM) Glucose (74-99) mg/dL Calcium (8.4-10.2) mg/dL Total Bilirubin (0.2-1.3) mg/dL AST (14-36) U/L ALT (9-52) U/L Alkaline Phosphatase (38-126) U/L Total Protein (6.3-8.2) g/dL Albumin (3.5-5.0) g/dL Amylase (30-110) U/L Lipase (23-300) U/L Urine Color Colorless Urine Appearance Cloudy H (Clear) Urine pH 6.5 (5.0-8.0) Ur Specific [place] 1.003 (1.001-1.035) Urine Protein Negative (Negative) Urine Glucose (UA) Negative (Negative) Urine Ketones Negative (Negative) Urine Blood Negative (Negative) Urine Nitrite Negative (Negative) Urine Bilirubin Negative (Negative) Urine Urobilinogen <2.0 (<2.0) mg/dL Ur Leukocyte Esterase Negative (Negative) Urine RBC <1 (0-5) /hpf Urine WBC 1 (0-5) /hpf Ur Squamous Epith Cells 4 (0-4) /hpf Urine Bacteria Occasional H (None) /hpf - Radiology Data Radiology results: report reviewed Extensive postoperative findings are present. No acute abnormality. Left ovarian cyst. Considering follow-up. Disposition Clinical Impression: Abdominal pain Disposition: HOME SELF-CARE Condition: Good Instructions: Abdominal Pain (ED) Additional Instructions: Follow-up with your surgeon. Return to the emergency department if any alarming signs or symptoms occur. Is patient prescribed a controlled substance at d/c from ED?: No When asked, does pt state using other controlled substances?: No If prescribed controlled substance>3 days was MAPS reviewed?: No If opioid is for acute pain is fill amount 7 days or less?: No If Rx opioid, was Start Talking consent form obtained?: No Referrals: Macy Knight MD [Primary Care Provider] - 1-2 days Time of Disposition: 23:04
--- NOTE | 2018-01-15 22:06 | CT ---
EXAMINATION TYPE: CT abdomen pelvis w con DATE OF EXAM: 01/15/2018 COMPARISON: NONE HISTORY: Left side abdominal pain CT DLP: 1039 mGycm Automated exposure control for dose reduction was used. TECHNIQUE: Helical acquisition of images from the lung bases through the pelvis have been completed. CONTRAST: Performed without Oral Contrast and with IV Contrast, patient injected with 100 mL of Isovue 300. FINDINGS: Postop changes are noted to the stomach and bowel. LUNG BASES: No significant abnormality is appreciated. AORTA: No significant abnormality is appreciated. LIVER/GB: Patient is post cholecystectomy. Liver is stable. PANCREAS: No significant abnormality is seen. SPLEEN: No significant abnormality is seen. ADRENALS: No significant abnormality is seen. KIDNEYS: No significant abnormality is seen. REPRODUCTIVE ORGANS: There is a left ovarian cyst present measuring 2.3 cm. BOWEL: Postop changes, the appendix is not seen FREE AIR: No Free Air visible. ASCITES: None visible. PELVIC ADENOPATHY: None visualized. RETROPERITONEAL ADENOPATHY: No Retroperitoneal Adenopathy visible. URINARY BLADDER: No significant abnormality is seen. OSSEOUS STRUCTURES: No significant abnormality is seen. IMPRESSION: EXTENSIVE POSTOPERATIVE FINDINGS ARE PRESENT. NO ACUTE ABNORMALITY. LEFT OVARIAN CYST, CONSIDER FOLLO W-UP.
[2018-01-15] MEDS ORDERED: KETOROLAC 30 MG/ML 1 ML VIAL IVP STA (22:07)
[2018-01-15 23:17] VITALS: BP 107/76; PULSE 74; TEMP 98.6
== END 2018-01-15 23:17 | disposition home or self-care (01) ==
LOC: EC 19:07
DX: R10.30 Lower abdominal pain, unspecified (principal); G89.29 Other chronic pain; R11.2 Nausea with vomiting, unspecified; J45.909 Unspecified asthma, uncomplicated; K21.9 Gastro-esophageal reflux disease without esophagitis; E78.5 Hyperlipidemia, unspecified; I10 Essential (primary) hypertension; E11.40 Type 2 diabetes mellitus with diabetic neuropathy, unspecified; F41.9 Anxiety disorder, unspecified; F32.9 Major depressive disorder, single episode, unspecified; Z90.49 Acquired absence of other specified parts of digestive tract; Z98.84 Bariatric surgery status; Z85.41 Personal history of malignant neoplasm of cervix uteri; Z79.51 Long term (current) use of inhaled steroids; Z79.84 Long term (current) use of oral hypoglycemic drugs; Z79.899 Other long term (current) drug therapy; Z88.5 Allergy status to narcotic agent; Z91.018 Allergy to other foods; Z88.8 Allergy status to other drugs, medicaments and biological substances; Z88.2 Allergy status to sulfonamides; Z91.041 Radiographic dye allergy status; Z91.048 Other nonmedicinal substance allergy status; Z91.010 Allergy to peanuts; Z91.013 Allergy to seafood; Z53.20 Procedure and treatment not carried out because of patient's decision for unspecified reasons
CPT/HCPCS: 36415; 80053; 82150; 83690; 85025; 85610; 85730; 81001; 74177; 99284; 96374; 96375 ×3; 96361 ×3; J1200; J2930; J1885; Q9967

== ENCOUNTER 2018-03-06 19:57 | Emergency (ER) | payer OTHER ==
[2018-03-06] MEDS ORDERED: SODIUM CHLORIDE 0.9% 1,000 ML IV STA (21:11)
--- NOTE | 2018-03-06 21:18 | ED ---
Abdominal Pain HPI - General Chief Complaint: Abdominal Pain Stated Complaint: Abd Pain Time Seen by Provider: 03/06/18 20:58 Source: patient, RN notes reviewed Mode of arrival: ambulatory Limitations: no limitations - History of Present Illness Initial Comments: This is a 47-year-old female who presents to the emergency department with chief complaint of abdominal pain. Patient states that yesterday afternoon she developed left upper quadrant abdominal pain that radiates to her back. She describes the pain as sharp. Patient also admits to nausea, vomiting and diarrhea that started last night at 9 PM. Denies fevers or chills. She states that she has a history of cholecystectomy, appendectomy, Sabino-en-Y with revision. She states that she does have a history of intussusception. Patient states that she took Zofran and extra strength Tylenol at 5 PM this evening with minimal relief of symptoms. Denies chest pain or shortness of breath, dizziness or headache. - Related Data Home Medications Medication Instructions Recorded Confirmed Furosemide [Lasix] 20 mg PO BID@09/19/16 03/06/18 Ketorolac [Toradol] 10 mg PO BID PRN 08/19/17 03/06/18 Ondansetron [Zofran] 4 mg PO BID PRN 08/19/17 03/06/18 LORazepam [Ativan] 0.5 mg PO DAILY PRN 09/27/17 03/06/18 buPROPion HCL [Wellbutrin XL] 300 mg PO BID@09/27/17 03/06/18 metFORMIN HCL [Glucophage] 250 mg PO HS 09/27/17 03/06/18 Escitalopram [Lexapro] 20 mg PO HS 01/15/18 03/06/18 Tamsulosin HCl [Flomax] 0.4 mg PO HS 01/15/18 03/06/18 Rizatriptan Benzoate [Maxalt HELP DESK REP] 10 mg PO DAILY PRN 03/06/18 03/06/18 Zolpidem Tartrate [Ambien] 10 mg PO HS 03/06/18 03/06/18 Previous Rx's Medication Instructions Recorded Cephalexin [Keflex] 500 mg PO Q12HR #14 cap 03/07/18 Allergies Allergy/AdvReac Type Severity Reaction Status Date / Time oxycodone [From Percocet] Allergy Unknown Swelling; Verified 03/06/18 21:21 (WAS ABLE TO TAKE ALONG WITH BENADRYL) apricot Allergy Dyspnea Verified 03/06/18 21:21 barium sulfate Allergy Anaphylaxis Verified 03/06/18 21:21 [From Readi-Cat] codeine Allergy Anaphylaxis Verified 03/06/18 21:21 hydrocodone [From Lortab] Allergy Swelling Verified 03/06/18 21:21 Iodinated Contrast- Oral and Allergy Anaphylaxis Verified 03/06/18 21:21 IV Dye iodine Allergy Rash/Hives Verified 03/06/18 21:21 morphine Allergy Rash/Hives Verified 03/06/18 21:21 peach Allergy Swelling Verified 03/06/18 21:21 peanut Allergy Swelling Verified 03/06/18 21:21 peanut oil Allergy Anaphylaxis Verified 03/06/18 21:21 shellfish derived [Shellfish] Allergy Anaphylaxis Verified 03/06/18 21:21 strawberry Allergy Anaphylaxis Verified 03/06/18 21:21 sucralfate [From Carafate] Allergy Swelling Verified 03/06/18 21:21 Sulfa (Sulfonamide Allergy Anaphylaxis Verified 03/06/18 21:21 Antibiotics) sulfamethoxazole Allergy Anaphylaxis Verified 03/06/18 21:21 [From Bactrim] tree nut [Nut] Allergy Swelling Verified 03/06/18 21:21 trimethoprim [From Bactrim] Allergy Anaphylaxis Verified 03/06/18 21:21 Review of Systems ROS Statement: Those systems with pertinent positive or pertinent negative responses have been documented in the HPI. ROS Other: All systems not noted in ROS Statement are negative. Past Medical History Past Medical History: Asthma, Diabetes Mellitus, GERD/Reflux, Hyperlipidemia, Hypertension, Osteoarthritis (OA), Pneumonia Additional Past Medical History / Comment(s): NIDDM. diabetic neuropathy eli feet, migraines, cervical disc disease, DDD, eli tinnitis, arthiritis bilateral shoulders, poss fibromyalgia-pt in process of being diagnosed, seasonal allergies, IBS, HX R arm fx yrs ago, R ovarian cyst, hiatal hernia, UTIs, urinary calculus, pancreatitis x 2, stomach ulcer. History of Any Multi-Drug Resistant Organisms: C-DIFF Date of last positivie culture/infection: 2012 MDRO Source:: stool Past Surgical History: Appendectomy, Bariatric Surgery, Cholecystectomy, Tonsillectomy Additional Past Surgical History / Comment(s): 2010 sabino-en-Y, fistula repair 2011, 2011 gastric bypass revision, bowel resection, lap gastrojejunostomy anastamosis revision, EGD and colonoscopy, cone bx-cervical cancer remove with cryo, L fallopian tube removed due to cyst, picc line in and out, CERVICAL FUSION 12/21/16. [facility]. Past Anesthesia/Blood Transfusion Reactions: Family History of Problems w/ Anesthesia, Motion Sickness, Postoperative Nausea & Vomiting (PONV) Additional Past Anesthesia/Blood Transfusion Reaction / Comment(s): Pt states she has never recieved blood. FAMILY HX PONV. Past Psychological History: Anxiety, Depression Smoking Status: Never smoker Past Alcohol Use History: None Reported Past Drug Use History: None Reported - Past Family History Brother(s) Family Medical History: Deep Vein Thrombosis (DVT) Father Family Medical History: Cancer Additional Family Medical History / Comment(s): Father had poss colon and lung cancer and at age 73yrs. Mother Family Medical History: Coronary Artery Disease (CAD), Diabetes Mellitus, Deep Vein Thrombosis (DVT), Hypertension Additional Family Medical History / Comment(s): Mother is alive and 73 yrs old. General Exam - General Exam Comments Initial Comments: General: Awake and alert, well-developed; in no apparent distress. HEENT: Head atraumatic, normocephalic. Pupils are equal, round and reactive to light. Extraocular movements intact. Oropharynx moist without erythema or exudate. Neck: Supple. Normal ROM. Cardiovascular: Regular rate and rhythm. No murmurs, rubs or gallops. Chest symmetrical. Respiratory: Lungs clear to auscultation bilaterally. No wheezes, rales or rhonchi. Normal respiratory effort with no use of accessory muscles. Abdomen: Soft, non-distended. There is tenderness on palpation of the left upper quadrant with guarding. No rigidity or rebound. Normal bowel sounds in all 4 quadrants. Musculoskeletal: Normal ROM, no tenderness bilateral upper and lower extremities. Skin: [place], warm and dry without rashes or lesions. Neurological: Alert and oriented x3. CN II-XII grossly intact. Speech is fluent and answers are appropriate. No focal neuro deficits. Psychiatric: Normal mood and affect. No overt signs of depression or anxiety noted. Limitations: no limitations Course Vital Signs 03/06/18 03/07/18 20:00 00:08 Temperature 98.7 F Pulse Rate 70 54 L Respiratory 18 16 Rate Blood Pressure 103/70 106/71 O2 Sat by Pulse 99 99 Oximetry Medical Decision Making - Medical Decision Making This is a 47-year-old female who presents to the emergency department with a chief complaint of left upper quadrant abdominal pain, nausea, vomiting and diarrhea. On physical examination, abdomen is soft, however there is tenderness on palpation of the left upper quadrant. CBC did reveal a hemoglobin at 10.6 which is consistent with previous laboratories. CBC otherwise unremarkable. CMP was unremarkable. UA revealed large leukocytes, high white blood cells and white blood cell clumps and rare bacteria. Patient given a dose of Rocephin to treat a urinary tract infection. On reevaluation, patient continued to complain of abdominal pain. Computed tomography scan of the abdomen and pelvis with contrast was obtained which revealed no acute abnormalities. Patient's vital signs are stable and she is in no acute distress. She will be discharged home with medication to treat a urinary tract infection. Recommended following up with her primary care provider within 1-2 days. Patient is in agreement with plan and voices understanding. All questions were answered. - Lab Data Result diagrams: 03/06/18 22:22 03/06/18 22:22 Lab Results 03/06/18 03/06/18 03/06/18 Range/Units 21:36 22:22 22:22 WBC 11.6 H (3.8-10.6) k/uL RBC 4.81 (3.80-5.40) m/uL Hgb 10.6 L (11.4-16.0) gm/dL Hct 33.4 L (34.0-46.0) % MCV 69.5 L (80.0-100.0) fL MCH 22.0 L (25.0-35.0) pg MCHC 31.7 (31.0-37.0) g/dL RDW 15.5 (11.5-15.5) % Plt Count 447 (150-450) k/uL Neutrophils % 53 % Lymphocytes % 36 % Monocytes % 5 % Eosinophils % 3 % Basophils % 1 % Neutrophils # 6.2 (1.3-7.7) k/uL Lymphocytes # 4.2 (1.0-4.8) k/uL Monocytes # 0.6 (0-1.0) k/uL Eosinophils # 0.3 (0-0.7) k/uL Basophils # 0.1 (0-0.2) k/uL Hypochromasia Marked Microcytosis Marked PT (9.0-12.0) sec INR (<1.2) APTT (22.0-30.0) sec Sodium 137 (137-145) mmol/L Potassium 3.7 (3.5-5.1) mmol/L Chloride 105 (98-107) mmol/L Carbon Dioxide 22 (22-30) mmol/L Anion Gap 10 mmol/L BUN 16 (7-17) mg/dL Creatinine 0.81 (0.52-1.04) mg/dL Est GFR (CKD-EPI)AfAm >90 (>60 ml/min/1.73 sqM) Est GFR (CKD-EPI)NonAf 87 (>60 ml/min/1.73 sqM) Glucose 131 H (74-99) mg/dL Calcium 9.5 (8.4-10.2) mg/dL Total Bilirubin 0.3 (0.2-1.3) mg/dL AST 35 (14-36) U/L ALT 36 (9-52) U/L Alkaline Phosphatase 108 (38-126) U/L Total Protein 7.7 (6.3-8.2) g/dL Albumin 4.6 (3.5-5.0) g/dL Amylase 59 (30-110) U/L Lipase 102 (23-300) U/L Urine Color Yellow Urine Appearance Cloudy H (Clear) Urine pH 6.0 (5.0-8.0) Ur Specific [place] 1.010 (1.001-1.035) Urine Protein Negative (Negative) Urine Glucose (UA) Negative (Negative) Urine Ketones Negative (Negative) Urine Blood Negative (Negative) Urine Nitrite Negative (Negative) Urine Bilirubin Negative (Negative) Urine Urobilinogen <2.0 (<2.0) mg/dL Ur Leukocyte Esterase Large H (Negative) Urine RBC 1 (0-5) /hpf Urine WBC >182 H (0-5) /hpf Urine WBC Clumps Few H (None) /hpf Ur Squamous Epith Cells 2 (0-4) /hpf Urine Bacteria Rare H (None) /hpf Hyaline Casts 5 H (0-2) /lpf Urine Mucus Rare H (None) /hpf Urine Yeast (Budding) Occasional H (None) /hpf 03/06/18 Range/Units 22:22 WBC (3.8-10.6) k/uL RBC (3.80-5.40) m/uL Hgb (11.4-16.0) gm/dL Hct (34.0-46.0) % MCV (80.0-100.0) fL MCH (25.0-35.0) pg MCHC (31.0-37.0) g/dL RDW (11.5-15.5) % Plt Count (150-450) k/uL Neutrophils % % Lymphocytes % % Monocytes % % Eosinophils % % Basophils % % Neutrophils # (1.3-7.7) k/uL Lymphocytes # (1.0-4.8) k/uL Monocytes # (0-1.0) k/uL Eosinophils # (0-0.7) k/uL Basophils # (0-0.2) k/uL Hypochromasia Microcytosis PT 10.2 (9.0-12.0) sec INR 1.0 (<1.2) APTT 19.9 L (22.0-30.0) sec Sodium (137-145) mmol/L Potassium (3.5-5.1) mmol/L Chloride (98-107) mmol/L Carbon Dioxide (22-30) mmol/L Anion Gap mmol/L BUN (7-17) mg/dL Creatinine (0.52-1.04) mg/dL Est GFR (CKD-EPI)AfAm (>60 ml/min/1.73 sqM) Est GFR (CKD-EPI)NonAf (>60 ml/min/1.73 sqM) Glucose (74-99) mg/dL Calcium (8.4-10.2) mg/dL Total Bilirubin (0.2-1.3) mg/dL AST (14-36) U/L ALT (9-52) U/L Alkaline Phosphatase (38-126) U/L Total Protein (6.3-8.2) g/dL Albumin (3.5-5.0) g/dL Amylase (30-110) U/L Lipase (23-300) U/L Urine Color Urine Appearance (Clear) Urine pH (5.0-8.0) Ur Specific [place] (1.001-1.035) Urine Protein (Negative) Urine Glucose (UA) (Negative) Urine Ketones (Negative) Urine Blood (Negative) Urine Nitrite (Negative) Urine Bilirubin (Negative) Urine Urobilinogen (<2.0) mg/dL Ur Leukocyte Esterase (Negative) Urine RBC (0-5) /hpf Urine WBC (0-5) /hpf Urine WBC Clumps (None) /hpf Ur Squamous Epith Cells (0-4) /hpf Urine Bacteria (None) /hpf Hyaline Casts (0-2) /lpf Urine Mucus (None) /hpf Urine Yeast (Budding) (None) /hpf Disposition Clinical Impression: Urinary tract infection, Gastroenteritis Disposition: HOME SELF-CARE Condition: Good Instructions: Urinary Tract Infection in Women (ED), Gastroenteritis (ED) Additional Instructions: Please take medications as prescribed. Please follow up with primary care provider within 1-2 days. Return to emergency department if symptoms should worsen or any concerns arise. Prescriptions: Cephalexin [Keflex] 500 mg PO Q12HR #14 cap Is patient prescribed a controlled substance at d/c from ED?: No Referrals: Macy Knight MD [Primary Care Provider] - 1-2 days Time of Disposition: 00:31
[2018-03-06 21:51] LABS: Appearance,Urine Cloudy (Clear); Bacteria,Urine Rare /hpf; Bilirubin,Urine Negative (Negative); Blood,Urine Negative (Negative); Budding Yeast,Urine Occasional /hpf; Color,Urine Yellow; Glucose,Urine (UA) Negative (Negative); Hyaline Casts,Urine 5 /lpf (0-2); Ketones,Urine Negative (Negative); Leukocyte Esterase,Urine Large (Negative); Mucus,Urine Rare /hpf; Nitrite,Urine Negative (Negative); Protein,Urine Negative (Negative); RBC,Urine 1 /hpf (0-5); Squamous Epithelial Cell,Urine 2 /hpf (0-4); Urobilinogen,Urine <2.0 mg/dL (<2.0); WBC,Urine >182 /hpf (0-5)
[2018-03-06 22:31] LABS: Basophils # (A) 0.1 k/uL (0-0.2); Basophils % (A) 1 %; Eosinophils # (A) 0.3 k/uL (0-0.7); Eosinophils % (A) 3 %; HCT 33.4 % (34.0-46.0); HGB 10.6 gm/dL (11.4-16.0); Hypochromasia Marked; Lymphocytes # (A) 4.2 k/uL (1.0-4.8); Lymphocytes % (A) 36 %; MCHC 31.7 g/dL (31.0-37.0); MCV 69.5 fL (80.0-100.0); Mean Platelet Volume 6.3; Microcytosis Marked; Monocytes # (A) 0.6 k/uL (0-1.0); Monocytes % (A) 5 %; Neutrophils # (A) 6.2 k/uL (1.3-7.7); Neutrophils % (A) 53 %; Platelet Count 447 k/uL (150-450); RBC 4.81 m/uL (3.80-5.40); RDW 15.5 % (11.5-15.5); WBC 11.6 k/uL (3.8-10.6)
[2018-03-06 22:41] LABS: ALT 36 U/L (9-52); AST 35 U/L (14-36); Albumin 4.6 g/dL (3.5-5.0); Alkaline Phosphatase 108 U/L (38-126); Amylase 59 U/L (30-110); Anion Gap 10 mmol/L; Blood Urea Nitrogen 16 mg/dL (7-17); Calcium 9.5 mg/dL (8.4-10.2); Carbon Dioxide 22 mmol/L (22-30); Chloride 105 mmol/L (98-107); Glucose 131 mg/dL (74-99); Lipase 102 U/L (23-300); Potassium 3.7 mmol/L (3.5-5.1); Sodium 137 mmol/L (137-145); Total Bilirubin 0.3 mg/dL (0.2-1.3); Total Protein 7.7 g/dL (6.3-8.2)
[2018-03-06 22:48] LABS: Prothrombin Time 10.2 sec (9.0-12.0)
[2018-03-06 22:50] LABS: Partial Thromboplastin Time 19.9 sec (22.0-30.0)
[2018-03-06] MEDS ORDERED: cefTRIAXone IN SWFI 1,000 MG/10 ML SYRINGE IVP STA (22:54)
[2018-03-06] MEDS ORDERED: FAMOTIDINE 20 MG/2 ML VIAL IV STA (23:03)
[2018-03-06] MEDS ORDERED: diphenhydrAMINE 50 MG/ML 1 ML VIAL IVP STA (23:03)
[2018-03-06] MEDS ORDERED: methylPREDNISolone SOD SUCCI 125 MG/2 ML VIAL IV STA (23:03)
[2018-03-07] MEDS ORDERED: KETOROLAC 30 MG/ML 1 ML VIAL IVP STA (00:06)
--- NOTE | 2018-03-07 00:08 | CT ---
EXAMINATION TYPE: CT abdomen pelvis w con DATE OF EXAM: 03/06/2018 COMPARISON: 01/15/2018 HISTORY: prior on syn. left sided upper abdominal pain, IV only, extensive surgical history CT DLP: 864.20 mGycm Automated exposure control for dose reduction was used. TECHNIQUE: Helical acquisition of images was performed from the lung bases through the pelvis. CONTRAST: Performed without Oral Contrast and with IV Contrast, patient injected with 100 mL of Isovue 300. FINDINGS: Lung bases are clear. There is no pleural effusion. Heart size is normal. Liver appears normal. There are clips from cholecystectomy. Bile ducts are not dilated. There are cli ps from bariatric surgery. Spleen appears normal. There is no pancreatic mass. There is no adrenal mass. Kidneys show satisfactory contrast opacification. There is no hydronephrosi s. There is no retroperitoneal adenopathy. There is no ascites. Bladder distends smoothly. There is n o free fluid in the pelvis. There are clips probably from appendectomy. I see no intestinal wall thic kening. There are no dilated loops. The lumbar spine is intact. I see no bony destructive process. Ut erus is anteverted. There is no evidence of pelvic mass. IMPRESSION: PREVIOUS SURGERY. NO ACUTE ABNORMALITY IN THE ABDOMEN AND PELVIS. THERE IS CLEARING OF LEFT OVARY CYS T COMPARED TO OLD EXAM.
[2018-03-07 00:42] VITALS: BP 149/79; PULSE 78; RESP 20; TEMP 98.1
== END 2018-03-07 00:42 | disposition home or self-care (01) ==
LOC: EC 19:57
DX: K52.9 Noninfective gastroenteritis and colitis, unspecified (principal); N39.0 Urinary tract infection, site not specified; K21.9 Gastro-esophageal reflux disease without esophagitis; F41.9 Anxiety disorder, unspecified; F32.9 Major depressive disorder, single episode, unspecified; I10 Essential (primary) hypertension; E11.40 Type 2 diabetes mellitus with diabetic neuropathy, unspecified; Z87.442 Personal history of urinary calculi; Z87.19 Personal history of other diseases of the digestive system; Z87.42 Personal history of other diseases of the female genital tract; Z90.49 Acquired absence of other specified parts of digestive tract; Z98.84 Bariatric surgery status; Z98.890 Other specified postprocedural states; Z98.1 Arthrodesis status; Z79.84 Long term (current) use of oral hypoglycemic drugs; Z79.899 Other long term (current) drug therapy; Z88.1 Allergy status to other antibiotic agents; Z88.2 Allergy status to sulfonamides; Z88.5 Allergy status to narcotic agent; Z88.8 Allergy status to other drugs, medicaments and biological substances; Z91.010 Allergy to peanuts; Z91.013 Allergy to seafood; Z91.018 Allergy to other foods; Z91.041 Radiographic dye allergy status
CPT/HCPCS: 36415; 80053; 82150; 83690; 85025; 85610; 85730; 81001; 74177; 99284; 96374; 96375 ×4; 96361 ×2; J1200; J2930; J0696; Q9967

== ENCOUNTER 2018-03-12 17:20 | Inpatient (IN) | payer OTHER ==
[2018-03-12] MEDS ORDERED: SODIUM CHLORIDE 0.9% 1,000 ML IV STA (17:31)
--- NOTE | 2018-03-12 17:32 | ED ---
General Adult HPI - General Chief complaint: Neuro Symptoms/Deficit Stated complaint: Poss CVA Time Seen by Provider: 03/12/18 17:30 Source: patient, RN notes reviewed, old records reviewed Mode of arrival: EMS - History of Present Illness Initial comments: This is a 47-year-old female the ER for evaluation. This patient does say for evaluation regards to headache, left-sided weakness. Patient states she had significant weakness on her left side unknown exact time but started drinking TV show she was watching around where she loses to 30 secondary to normal, CBC shows on. Patient has persistent left-sided weakness here in the hospital, patient's brought in by EMS who state the same - Related Data Home Medications Medication Instructions Recorded Confirmed Furosemide [Lasix] 20 mg PO BID@,09/19/16 03/12/18 Ketorolac [Toradol] 10 mg PO BID PRN 08/19/17 03/12/18 Ondansetron [Zofran] 4 mg PO BID PRN 08/19/17 03/12/18 LORazepam [Ativan] 0.5 mg PO DAILY PRN 09/27/17 03/12/18 buPROPion HCL [Wellbutrin XL] 300 mg PO BID@,09/27/17 03/12/18 metFORMIN HCL [Glucophage] 250 mg PO HS 09/27/17 03/12/18 Escitalopram [Lexapro] 20 mg PO HS 01/15/18 03/12/18 Tamsulosin HCl [Flomax] 0.4 mg PO HS 01/15/18 03/12/18 Rizatriptan Benzoate [Maxalt AUTOMOTIVE GLASS INSTALLER] 10 mg PO DAILY PRN 03/06/18 03/12/18 Zolpidem Tartrate [Ambien] 10 mg PO HS 03/06/18 03/12/18 Previous Rx's Medication Instructions Recorded Cephalexin [Keflex] 500 mg PO Q12HR #14 cap 03/07/18 Allergies Allergy/AdvReac Type Severity Reaction Status Date / Time oxycodone [From Percocet] Allergy Unknown Swelling; Verified 03/12/18 17:27 (WAS ABLE TO TAKE ALONG WITH BENADRYL) apricot Allergy Dyspnea Verified 03/12/18 17:27 barium sulfate Allergy Anaphylaxis Verified 03/12/18 17:27 [From Readi-Cat] codeine Allergy Anaphylaxis Verified 03/12/18 17:27 hydrocodone [From Lortab] Allergy Swelling Verified 03/12/18 17:27 Iodinated Contrast- Oral and Allergy Anaphylaxis Verified 03/12/18 17:27 IV Dye iodine Allergy Rash/Hives Verified 03/12/18 17:27 morphine Allergy Rash/Hives Verified 03/12/18 17:27 peach Allergy Swelling Verified 03/12/18 17:27 peanut Allergy Swelling Verified 03/12/18 17:27 peanut oil Allergy Anaphylaxis Verified 03/12/18 17:27 shellfish derived [Shellfish] Allergy Anaphylaxis Verified 03/12/18 17:27 strawberry Allergy Anaphylaxis Verified 03/12/18 17:27 sucralfate [From Carafate] Allergy Swelling Verified 03/12/18 17:27 Sulfa (Sulfonamide Allergy Anaphylaxis Verified 03/12/18 17:27 Antibiotics) sulfamethoxazole Allergy Anaphylaxis Verified 03/12/18 17:27 [From Bactrim] tree nut [Nut] Allergy Swelling Verified 03/12/18 17:27 trimethoprim [From Bactrim] Allergy Anaphylaxis Verified 03/12/18 17:27 Review of Systems ROS Statement: Those systems with pertinent positive or pertinent negative responses have been documented in the HPI. ROS Other: All systems not noted in ROS Statement are negative. Past Medical History Past Medical History: Asthma, Diabetes Mellitus, GERD/Reflux, Hyperlipidemia, Hypertension, Osteoarthritis (OA), Pneumonia Additional Past Medical History / Comment(s): NIDDM. diabetic neuropathy eli feet, migraines, cervical disc disease, DDD, eli tinnitis, arthiritis bilateral shoulders, poss fibromyalgia-pt in process of being diagnosed, seasonal allergies, IBS, HX R arm fx yrs ago, R ovarian cyst, hiatal hernia, UTIs, urinary calculus, pancreatitis x 2, stomach ulcer. History of Any Multi-Drug Resistant Organisms: C-DIFF Date of last positivie culture/infection: 2012 MDRO Source:: stool Past Surgical History: Appendectomy, Bariatric Surgery, Cholecystectomy, Tonsillectomy Additional Past Surgical History / Comment(s): 2011 felix-en-Y, fistula repair 2011, 2011 gastric bypass revision, bowel resection, lap gastrojejunostomy anastamosis revision, EGD and colonoscopy, cone bx-cervical cancer remove with cryo, L fallopian tube removed due to cyst, picc line in and out, CERVICAL FUSION 12/21/16. [facility]. Past Anesthesia/Blood Transfusion Reactions: Family History of Problems w/ Anesthesia, Motion Sickness, Postoperative Nausea & Vomiting (PONV) Additional Past Anesthesia/Blood Transfusion Reaction / Comment(s): Pt states she has never recieved blood. FAMILY HX PONV. Past Psychological History: Anxiety, Depression Smoking Status: Never smoker Past Alcohol Use History: None Reported Past Drug Use History: None Reported - Past Family History Brother(s) Family Medical History: Deep Vein Thrombosis (DVT) Father Family Medical History: Cancer Additional Family Medical History / Comment(s): Father had poss colon and lung cancer and at age 73yrs. Mother Family Medical History: Coronary Artery Disease (CAD), Diabetes Mellitus, Deep Vein Thrombosis (DVT), Hypertension Additional Family Medical History / Comment(s): Mother is alive and 73 yrs old. General Exam - General Exam Comments Initial Comments: NIH of 6 with left-sided weakness and left-sided facial droop General appearance: alert, in no apparent distress Head exam: Present: atraumatic, normocephalic, normal inspection Eye exam: Present: normal appearance, PERRL, EOMI. Absent: scleral icterus, conjunctival injection, periorbital swelling ENT exam: Present: normal exam, mucous membranes moist Neck exam: Present: normal inspection. Absent: tenderness, meningismus, lymphadenopathy Respiratory exam: Present: normal lung sounds bilaterally. Absent: respiratory distress, wheezes, rales, rhonchi, stridor Cardiovascular Exam: Present: regular rate, normal rhythm, normal heart sounds. Absent: systolic murmur, diastolic murmur, rubs, gallop, clicks GI/Abdominal exam: Present: soft, normal bowel sounds. Absent: distended, tenderness, guarding, rebound, rigid Extremities exam: Present: normal inspection, full ROM, normal capillary refill. Absent: tenderness, pedal edema, joint swelling, calf tenderness Back exam: Present: normal inspection Neurological exam: Present: alert, oriented X3, CN II-XII intact Psychiatric exam: Present: normal affect, normal mood Skin exam: Present: warm, dry, intact, normal color. Absent: rash Course Vital Signs 03/12/18 17:24 Temperature 98.7 F Pulse Rate 79 Respiratory 16 Rate Blood Pressure 110/73 O2 Sat by Pulse 96 Oximetry - Reevaluation(s) Reevaluation #1: 03/12/18 18:31 Patient is having improving NIH Reevaluation #2: 03/12/18 18:31 Spoke with family at length regarding risk and benefit of TPA, at this time patient's is declining TPA Reevaluation #3: 03/12/18 18:32 Spoke with on-call neuro intervention was, no intervention necessary for patient EKG Findings - EKG Comments: EKG Findings:: EKG shows sinus rhythm rate of 67, CO 164, QRS 76, QTc 420 Medical Decision Making - Medical Decision Making 47 female the ER for evaluation and neurological complaints and left-sided weakness, positive CVA. Patient is not to be a candidate secondary to family discussion patient can be admitted to the hospital for neurological management - Lab Data Result diagrams: 03/12/18 17:44 03/12/18 17:44 Lab Results 03/12/18 03/12/18 03/12/18 Range/Units 17:29 17:44 17:44 WBC 9.6 (3.8-10.6) k/uL RBC 4.92 (3.80-5.40) m/uL Hgb 10.4 L (11.4-16.0) gm/dL Hct 34.1 (34.0-46.0) % MCV 69.4 L (80.0-100.0) fL MCH 21.2 L (25.0-35.0) pg MCHC 30.5 L (31.0-37.0) g/dL RDW 16.1 H (11.5-15.5) % Plt Count 407 (150-450) k/uL Neutrophils % 54 % Lymphocytes % 36 % Monocytes % 6 % Eosinophils % 2 % Basophils % 1 % Neutrophils # 5.1 (1.3-7.7) k/uL Lymphocytes # 3.5 (1.0-4.8) k/uL Monocytes # 0.5 (0-1.0) k/uL Eosinophils # 0.1 (0-0.7) k/uL Basophils # 0.1 (0-0.2) k/uL Hypochromasia Moderate Anisocytosis Slight Microcytosis Marked Sodium 139 (137-145) mmol/L Potassium 4.2 (3.5-5.1) mmol/L Chloride 105 (98-107) mmol/L Carbon Dioxide 20 L (22-30) mmol/L Anion Gap 14 mmol/L BUN 20 H (7-17) mg/dL Creatinine 0.70 (0.52-1.04) mg/dL Est GFR (CKD-EPI)AfAm >90 (>60 ml/min/1.73 sqM) Est GFR (CKD-EPI)NonAf >90 (>60 ml/min/1.73 sqM) Glucose 202 H (74-99) mg/dL POC Glucose (mg/dL) 211 H (75-99) mg/dL POC Glu [employer] 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 Daphney Bright Calcium 9.3 (8.4-10.2) mg/dL Total Bilirubin 0.2 (0.2-1.3) mg/dL AST 48 H (14-36) U/L ALT 53 H (9-52) U/L Alkaline Phosphatase 102 (38-126) U/L Total Protein 7.4 (6.3-8.2) g/dL Albumin 4.3 (3.5-5.0) g/dL - Radiology Data Radiology results: report reviewed (CT brain CTA head and neck is negative for acute disease), image reviewed Critical Care Time Critical Care Time: Yes Total Critical Care Time: 31 Disposition Clinical Impression: Cerebrovascular accident Disposition: ADMITTED IP TO THIS [facility] Condition: Fair Is patient prescribed a controlled substance at d/c from ED?: No Referrals: Macy Knight MD [Primary Care Provider] - 1-2 days
[2018-03-12 17:50] LABS: Glucose,Whole Blood 211 mg/dL (75-99)
[2018-03-12 18:18] LABS: Anisocytosis Slight; Basophils # (A) 0.1 k/uL (0-0.2); Basophils % (A) 1 %; Eosinophils # (A) 0.1 k/uL (0-0.7); Eosinophils % (A) 2 %; HCT 34.1 % (34.0-46.0); HGB 10.4 gm/dL (11.4-16.0); Hypochromasia Moderate; Lymphocytes # (A) 3.5 k/uL (1.0-4.8); Lymphocytes % (A) 36 %; MCH 21.2 pg (25.0-35.0); MCHC 30.5 g/dL (31.0-37.0); MCV 69.4 fL (80.0-100.0); Mean Platelet Volume 6.9; Microcytosis Marked; Monocytes # (A) 0.5 k/uL (0-1.0); Monocytes % (A) 6 %; Neutrophils # (A) 5.1 k/uL (1.3-7.7); Neutrophils % (A) 54 %; Platelet Count 407 k/uL (150-450); RBC 4.92 m/uL (3.80-5.40); RDW 16.1 % (11.5-15.5); WBC 9.6 k/uL (3.8-10.6)
[2018-03-12] MEDS ORDERED: diphenhydrAMINE 50 MG/ML 1 ML VIAL IVP STA (18:20)
[2018-03-12] MEDS ORDERED: FAMOTIDINE 20 MG/2 ML VIAL IV STA (18:20)
[2018-03-12] MEDS ORDERED: methylPREDNISolone SOD SUCCI 125 MG/2 ML VIAL IV STA (18:20)
[2018-03-12] MEDS ORDERED: ONDANSETRON 4 MG/2 ML VIAL IVP STA ×2 (18:20→20:06)
[2018-03-12 18:23] LABS: ALT 53 U/L (9-52); AST 48 U/L (14-36); Albumin 4.3 g/dL (3.5-5.0); Alkaline Phosphatase 102 U/L (38-126); Anion Gap 14 mmol/L; Blood Urea Nitrogen 20 mg/dL (7-17); Calcium 9.3 mg/dL (8.4-10.2); Carbon Dioxide 20 mmol/L (22-30); Chloride 105 mmol/L (98-107); Glucose 202 mg/dL (74-99); Potassium 4.2 mmol/L (3.5-5.1); Sodium 139 mmol/L (137-145); Total Bilirubin 0.2 mg/dL (0.2-1.3); Total Protein 7.4 g/dL (6.3-8.2)
[2018-03-12 18:28] LABS: Prothrombin Time 9.7 sec (9.0-12.0)
[2018-03-12] MEDS ORDERED: ASPIRIN 325 MG TAB PO STA (18:30)
--- NOTE | 2018-03-12 18:33 | CT ---
EXAMINATION TYPE: CT brain wo con for TPA DATE OF EXAM: 03/12/2018 COMPARISON: 08/22/2016 HISTORY: cva CT DLP: 999.8 mGycm Automated exposure control for dose reduction was used. FINDINGS: There is no mass effect nor midline shift. Ventricles of normal size. There is no sign of intracrania l hemorrhage. The calvarium is intact. IMPRESSION: Negative CT scan of the brain. No change.
[2018-03-12 18:39] LABS: Partial Thromboplastin Time 21.5 sec (22.0-30.0)
--- NOTE | 2018-03-12 18:40 | CT ---
EXAMINATION TYPE: CT angio head neck DATE OF EXAM: 03/12/2018 HISTORY: cva COMPARISON: None CT DLP: 352.2 mGycm. Automated Exposure Control for Dose Reduction was Utilized. TECHNIQUE: CTA scan of the neck is performed with IV Contrast, patient injected with 65 mL of Isovue 370, axial images are obtained, coronal and sagittal reformatted images are reviewed. Three-D recons tructed images are created on an independent workstation and reviewed. FINDINGS: There is normal branching pattern of the great vessels on the aortic arch. There is bilateral arteria l flow in the vertebral arteries which are fairly symmetric. There is arterial flow in the common int ernal and external carotid arteries bilaterally. There is no evidence of carotid artery aneurysm or d issection. Carotid bifurcations are widely patent. There is arterial flow in the vertebrobasilar artery system. There is arterial flow in the anterior m iddle and posterior cerebral arteries. There is normal contrast opacification of the venous sinuses. I see no evidence of aneurysm or neovascularity. There is no sign of spasm. There is no evidence of s tenosis. There is no mass effect. IMPRESSION: Negative CT angiogram of the neck. Negative CT angiogram of the brain.
[2018-03-12 18:48] LABS: Creatine Kinase 30 U/L (30-135)
[2018-03-12 18:59] LABS: Creatine Kinase MB 0.2 ng/mL (0.0-2.4); Troponin I <0.012 ng/mL (0.000-0.034)
--- NOTE | 2018-03-12 19:31 | XR ---
EXAMINATION TYPE: XR chest 2V DATE OF EXAM: 03/12/2018 COMPARISON: 07/16/2017 HISTORY: Left side weakness TECHNIQUE: Frontal and lateral views of the chest are obtained. FINDINGS: There is no heart failure nor confluent pneumonic infiltrate. Heart and mediastinum are no rmal. Diaphragm is normal. Bony thorax is intact. IMPRESSION: Normal chest. No change.
[2018-03-12] MEDS ORDERED: ACETAMINOPHEN TAB 500 MG TAB PO STA (20:07)
[2018-03-12] MEDS: SODIUM CHLORIDE 0.9% 1,000 ML IV SCH (20:33)
[2018-03-12] MEDS ORDERED: LORazepam 0.5 MG TAB PO PRN (22:49)
[2018-03-12] MEDS: ZOLPIDEM 10 MG TAB PO SCH (23:34)
[2018-03-13 00:35] LABS: Cholesterol 229 mg/dL (<200); HDL Cholesterol 61 mg/dL (40-60); LDL Cholesterol,Calculated 121 mg/dL (0-99); Triglycerides 235 mg/dL (<150)
[2018-03-13 06:17] LABS: Glucose,Whole Blood 179 mg/dL (75-99)
[2018-03-13] MEDS: INSULIN ASPART 100 UNIT/ML 1 ML 10 ML VIAL SQ SCH ×4 (06:21→21:01)
[2018-03-13] MEDS: buPROPion XL 300 MG TAB.ER.24H PO SCH ×2 (06:22→18:05)
[2018-03-13] MEDS: SODIUM CHLORIDE 0.9% 1,000 ML IV SCH ×2 (06:22→16:07)
[2018-03-13] MEDS: FUROSEMIDE 20 MG TAB PO SCH ×2 (06:22→18:05)
[2018-03-13 09:56] LABS: Basophils % (A) 0 %; Eosinophils % (A) 0 %; HCT 32.7 % (34.0-46.0); HGB 9.7 gm/dL (11.4-16.0); Hypochromasia Marked; Lymphocytes # (A) 1.8 k/uL (1.0-4.8); Lymphocytes % (A) 16 %; MCH 20.9 pg (25.0-35.0); MCHC 29.6 g/dL (31.0-37.0); MCV 70.5 fL (80.0-100.0); Mean Platelet Volume 6.3; Microcytosis Moderate; Monocytes # (A) 0.3 k/uL (0-1.0); Monocytes % (A) 2 %; Neutrophils # (A) 9.2 k/uL (1.3-7.7); Neutrophils % (A) 81 %; Platelet Count 403 k/uL (150-450); RBC 4.64 m/uL (3.80-5.40); RDW 15.9 % (11.5-15.5); WBC 11.3 k/uL (3.8-10.6)
[2018-03-13 10:12] LABS: ALT 49 U/L (9-52); AST 49 U/L (14-36); Albumin 4.1 g/dL (3.5-5.0); Alkaline Phosphatase 95 U/L (38-126); Anion Gap 12 mmol/L; Blood Urea Nitrogen 16 mg/dL (7-17); Calcium 9.1 mg/dL (8.4-10.2); Carbon Dioxide 21 mmol/L (22-30); Chloride 107 mmol/L (98-107); Glucose 149 mg/dL (74-99); Potassium 4.2 mmol/L (3.5-5.1); Sodium 140 mmol/L (137-145); Total Bilirubin 0.5 mg/dL (0.2-1.3); Total Protein 7.1 g/dL (6.3-8.2)
--- NOTE | 2018-03-13 11:12 | ECHOF ---
Referral Reason:Thrombus MEASUREMENTS -------- HEIGHT: 172.7 cm WEIGHT: 81.6 kg BP: 93/58 RVIDd: 3.4 cm (< 3.3) IVSd: 1.0 cm (0.6 - 1.1) LVIDd: 4.3 cm (3.9 - 5.3) LVPWd: 1.1 cm (0.6 - 1.1) IVSs: 1.6 cm LVIDs: 2.9 cm LVPWs: 1.6 cm LA Diam: 3.7 cm (2.7 - 3.8) LAESV Index (A-L): 27.67 ml/m Ao Diam: 3.2 cm (2.0 - 3.7) AV Cusp: 2.3 cm (1.5 - 2.6) MV EXCURSION: 19.436 mm (> 18.000) MV EF SLOPE: 93 mm/s (70 - 150) EPSS: 0.2 cm MV E Cristofer: 0.95 m/s MV DecT: 246 ms MV A Cristofer: 0.92 m/s MV E/A Ratio: 1.03 FINDINGS -------- Sinus rhythm. This was a technically good study. The left ventricular size is normal. Left ventricular wall thickness is normal. Overall left vent ricular systolic function is normal with, an EF between 60 - 65 %. The right ventricle is mildly enlarged. Normal LA size by volume 22+/-6 ml/m2. The right atrium is normal in size. The aortic valve is trileaflet and appears structurally normal. Mild mitral annular calcification present. The tricuspid valve appears structurally normal. There is no pulmonic regurgitation present. The aortic root size is normal. Normal inferior vena cava with normal inspiratory collapse consistent with estimated right atrial pre ssure of 5 mmHg. There is no pericardial effusion. CONCLUSIONS -------- 1. Sinus rhythm. 2. This was a technically good study. 3. The left ventricular size is normal. 4. Left ventricular wall thickness is normal. 5. Overall left ventricular systolic function is normal with, an EF between 60 - 65 %. 6. The right ventricle is mildly enlarged. 7. Normal LA size by volume 22+/-6 ml/m2. 8. The right atrium is normal in size. 9. The aortic valve is trileaflet and appears structurally normal. 10. Mild mitral annular calcification present. 11. The tricuspid valve appears structurally normal. 12. There is no pulmonic regurgitation present. 13. The aortic root size is normal. 14. Normal inferior vena cava with normal inspiratory collapse consistent with estimated right atrial pressure of 5 mmHg. 15. There is no pericardial effusion. INDUSTRIAL HEALTH AND SAFETY PROFESSOR: Ifrah Arteaga RDCS
--- NOTE | 2018-03-13 11:21 | P.HPIM ---
History of Present Illness H&P Date: 03/13/18 Chief Complaint: Possible CVA/Headache A 47-year-old patient of Dr. Knight who presented to the emergency room with complaints of al left sided headache and left-sided weakness. Patient is not sure of when the weakness started but knew that she had a headache that started then she had fallen asleep and when she had woken up while watching TV the weakness was present. Patient's was home and called EMS and the patient was brought to the hospital. Patient has a known medical history of asthma, CVA and TIA in the past with no deficits, diabetes mellitus, anxiety, depression, GERD, hyperlipidemia, hypertension, osteoarthritis, pneumonia and C. diff in 2013. Patient does have a surgical history of appendectomy, bariatric surgery, cholecystectomy and tonsillectomy. Head CT was completed emergency room and was a negative scan of the brain. CTA of the head and neck also completed with a negative CT angiogram of the neck and negative CT angiogram of the brain. Chest x-ray completed showing normal chest. EKG completed showing normal sinus rhythm, nonspecific T-wave abnormality. The echocardiogram has been ordered. Dr. Garcia for neurology has been consulted. Patient did state that she had previously been treated for a urinary tract infection but had finished all of her antibiotic. White blood cell count 11.3. Urinalysis has been ordered. Patient does complain of left sided headache radiating down to left neck but states it has improved since yesterday. Patient still complaining of left-sided weakness to upper extremity and lower extremity. No slurred speech or facial droop noted. Patient denies chest pain or shortness of breath. Denies nausea vomiting or diarrhea. Denies any urinary symptoms at this time. Review of Systems Please refer to HPI otherwise unremarkable Past Medical History Past Medical History: Asthma, CVA/TIA, Diabetes Mellitus, GERD/Reflux, Hyperlipidemia, Hypertension, Osteoarthritis (OA), Pneumonia Additional Past Medical History / Comment(s): "no longer takes meds for bp "NIDDM. past tia 2015. diabetic neuropathy eli feet, migraines, cervical disc disease, DDD, eli tinnitis, arthiritis bilateral shoulders, poss fibromyalgia- pt in process of being diagnosed, seasonal allergies, IBS, HX R arm fx yrs ago , R ovarian cyst, hiatal hernia, UTIs, urinary calculus, pancreatitis x 2, stomach ulcer. pt stated she had a pne vaccine approx 2 years ago,fiction writer unable to verify date at time of this this admit. History of Any Multi-Drug Resistant Organisms: C-DIFF Date of last positivie culture/infection: 2012 MDRO Source:: stool Past Surgical History: Appendectomy, Bariatric Surgery, Cholecystectomy, Tonsillectomy Additional Past Surgical History / Comment(s): 2010 felix-en-Y, fistula repair 2011, 2011 gastric bypass revision, bowel resection, lap gastrojejunostomy anastamosis revision, EGD and colonoscopy, cone bx-cervical cancer remove with cryo, L fallopian tube removed due to cyst, picc line in and out, CERVICAL FUSION 12/21/16. Past Anesthesia/Blood Transfusion Reactions: Family History of Problems w/ Anesthesia, Motion Sickness, Postoperative Nausea & Vomiting (PONV) Additional Past Anesthesia/Blood Transfusion Reaction / Comment(s): Pt states she has never recieved blood. FAMILY HX PONV. Smoking Status: Never smoker - Past Family History Brother(s) Family Medical History: Deep Vein Thrombosis (DVT) Father Family Medical History: Cancer Additional Family Medical History / Comment(s): Father had poss colon and lung cancer and at age 73yrs. Mother Family Medical History: Coronary Artery Disease (CAD), Diabetes Mellitus, Deep Vein Thrombosis (DVT), Hypertension Additional Family Medical History / Comment(s): Mother is alive and 73 yrs old. Medications and Allergies Home Medications Medication Instructions Recorded Confirmed Type Furosemide [Lasix] 20 mg PO BID@,09/19/16 03/12/18 History Ketorolac [Toradol] 10 mg PO BID PRN 08/19/17 03/12/18 History Ondansetron [Zofran] 4 mg PO BID PRN 08/19/17 03/12/18 History LORazepam [Ativan] 0.5 mg PO DAILY PRN 09/27/17 03/12/18 History buPROPion HCL [Wellbutrin XL] 300 mg PO BID@,09/27/17 03/12/18 History metFORMIN HCL [Glucophage] 250 mg PO HS 09/27/17 03/12/18 History Escitalopram [Lexapro] 20 mg PO HS 01/15/18 03/12/18 History Tamsulosin HCl [Flomax] 0.4 mg PO HS 01/15/18 03/12/18 History Rizatriptan Benzoate [Maxalt [employer] SAL[employer]ENT] 10 mg PO DAILY PRN 03/06/18 03/12/18 History Zolpidem Tartrate [Ambien] 10 mg PO HS 03/06/18 03/12/18 History Cephalexin [Keflex] 500 mg PO Q12HR #14 cap 03/07/18 03/12/18 Rx Allergies Allergy/AdvReac Type Severity Reaction Status Date / Time oxycodone [From Percocet] Allergy Unknown Swelling; Verified 03/12/18 17:27 (WAS ABLE TO TAKE ALONG WITH BENADRYL) apricot Allergy Dyspnea Verified 03/12/18 17:27 barium sulfate Allergy Anaphylaxis Verified 03/12/18 17:27 [From Readi-Cat] codeine Allergy Anaphylaxis Verified 03/12/18 17:27 hydrocodone [From Lortab] Allergy Swelling Verified 03/12/18 17:27 Iodinated Contrast- Oral and Allergy Anaphylaxis Verified 03/12/18 17:27 IV Dye iodine Allergy Rash/Hives Verified 03/12/18 17:27 morphine Allergy Rash/Hives Verified 03/12/18 17:27 peach Allergy Swelling Verified 03/12/18 17:27 peanut Allergy Swelling Verified 03/12/18 17:27 peanut oil Allergy Anaphylaxis Verified 03/12/18 17:27 shellfish derived [Shellfish] Allergy Anaphylaxis Verified 03/12/18 17:27 strawberry Allergy Anaphylaxis Verified 03/12/18 17:27 sucralfate [From Carafate] Allergy Swelling Verified 03/12/18 17:27 Sulfa (Sulfonamide Allergy Anaphylaxis Verified 03/12/18 17:27 Antibiotics) sulfamethoxazole Allergy Anaphylaxis Verified 03/12/18 17:27 [From Bactrim] tree nut [Nut] Allergy Swelling Verified 03/12/18 17:27 trimethoprim [From Bactrim] Allergy Anaphylaxis Verified 03/12/18 17:27 Physical Exam Vitals: Vital Signs Temp Pulse Pulse Resp BP BP Pulse Ox 03/13/18 08:00 97.3 F L 72 14 96/54 94 L 03/13/18 03:49 96.8 F L 75 16 93/58 97 03/12/18 23:30 97.1 F L 68 16 104/62 96 03/12/18 22:08 97.5 F L 64 18 110/73 98 03/12/18 20:00 62 16 101/62 97 03/12/18 18:20 68 16 126/84 98 03/12/18 18:05 68 16 126/83 100 03/12/18 17:50 71 16 127/81 99 03/12/18 17:35 69 16 115/81 98 03/12/18 17:24 98.7 F 79 16 110/73 96 03/12/18 17:20 76 16 110/73 96 Intake and Output 03/12/18 03/13/18 03/13/18 22:59 06:59 14:59 Intake Total 200 240 Output Total 200 400 Balance 200 -200 -160 Intake: Intake, IV Titration 200 Amount Sodium Chloride 0.9% 1, 200 000 ml @ 100 mls/hr IV . Q10H [facility] Rx#:[id number] Oral 240 Output: Urine 200 400 Other: Voiding Method Bedside Commode Bedside Commode # Voids 1 1 Weight 81.647 kg 82.1 kg Head normocephalic Neck supple Lungs clear to auscultation bilaterally no wheezing or crackles Heart regular rate and rhythm S1-S2, no rub or gallop Abdomen is soft nontender nondistended positive bowel sounds no hepatosplenomegaly Extremities no edema Neuro alert and orientated to 3. Slurred speech or facial droop noted. Left- sided weakness 3/5 Results CBC & Chem 7: 03/13/18 09:33 03/13/18 09:33 Labs: Abnormal Lab Results - Last 24 Hours (Table) 03/12/18 03/12/18 03/12/18 Range/Units 17:29 17:44 17:44 WBC (3.8-10.6) k/uL Hgb 10.4 L (11.4-16.0) gm/dL Hct (34.0-46.0) % MCV 69.4 L (80.0-100.0) fL MCH 21.2 L (25.0-35.0) pg MCHC 30.5 L (31.0-37.0) g/dL RDW 16.1 H (11.5-15.5) % Neutrophils # (1.3-7.7) k/uL APTT (22.0-30.0) sec Carbon Dioxide 20 L (22-30) mmol/L BUN 20 H (7-17) mg/dL Glucose 202 H (74-99) mg/dL POC Glucose (mg/dL) 211 H (75-99) mg/dL AST 48 H (14-36) U/L ALT 53 H (9-52) U/L Triglycerides (<150) mg/dL Cholesterol (<200) mg/dL LDL Cholesterol, Calc (0-99) mg/dL HDL Cholesterol (40-60) mg/dL 03/12/18 03/12/18 03/13/18 Range/Units 17:44 17:44 06:14 WBC (3.8-10.6) k/uL Hgb (11.4-16.0) gm/dL Hct (34.0-46.0) % MCV (80.0-100.0) fL MCH (25.0-35.0) pg MCHC (31.0-37.0) g/dL RDW (11.5-15.5) % Neutrophils # (1.3-7.7) k/uL APTT 21.5 L (22.0-30.0) sec Carbon Dioxide (22-30) mmol/L BUN (7-17) mg/dL Glucose (74-99) mg/dL POC Glucose (mg/dL) 179 H (75-99) mg/dL AST (14-36) U/L ALT (9-52) U/L Triglycerides 235 H (<150) mg/dL Cholesterol 229 H (<200) mg/dL LDL Cholesterol, Calc 121 H (0-99) mg/dL HDL Cholesterol 61 H (40-60) mg/dL 03/13/18 03/13/18 Range/Units 09:33 09:33 WBC 11.3 H (3.8-10.6) k/uL Hgb 9.7 L (11.4-16.0) gm/dL Hct 32.7 L (34.0-46.0) % MCV 70.5 L (80.0-100.0) fL MCH 20.9 L (25.0-35.0) pg MCHC 29.6 L (31.0-37.0) g/dL RDW 15.9 H (11.5-15.5) % Neutrophils # 9.2 H (1.3-7.7) k/uL APTT (22.0-30.0) sec Carbon Dioxide 21 L (22-30) mmol/L BUN (7-17) mg/dL Glucose 149 H (74-99) mg/dL POC Glucose (mg/dL) (75-99) mg/dL AST 49 H (14-36) U/L ALT (9-52) U/L Triglycerides (<150) mg/dL Cholesterol (<200) mg/dL LDL Cholesterol, Calc (0-99) mg/dL HDL Cholesterol (40-60) mg/dL Thrombosis Risk Factor Assmnt - Choose All That Apply Any of the Below Risk Factors Present?: Yes Each Factor Represents 1 point: Age 41-60 years, Obesity (BMI >25) Other Risk Factors: Yes Each Risk Factor Represents 3 Points: Family history of DVT/PE Thrombosis Risk Factor Assessment Total Risk Factor Score: 5 Thrombosis Risk Factor Assessment Level: High Risk Assessment and Plan Assessment: 1. Possible CVA/TIA with sided weakness and left-sided headache. CT of the brain negative. CTA of the neck and head negative. EKG showing normal sinus rhythm. 2-D echo has been ordered. Neurology has been consulted. Patient currently on aspirin 325 mg by mouth daily. Awaiting neurology consult. 2. Leukocytosis. White blood cell elevated at 11.3. Patient did state she had finished treatment of antibiotics for UTI. Urinary analysis has been ordered 3. History of diabetes mellitus. Metformin currently on hold. Sliding scale insulin has been ordered 4. History of depression and anxiety. Continue Wellbutrin, Lexapro and Ativan 5. History of previous CVA/TIA. No previous deficits noted 6. History of asthma. No exacerbation at this time 7. History of osteoarthritis. Patient takes Tordal at home. Currently on Lodine. 8. History of C. diff infection. Patient had episode in 2012 9. History of Urinary tract infection. Patient stated she had finished complete antibiotic treatment. Time with Patient: Greater than 30 (Greater than 60% of the total time spent in counseling and coordination of care. I performed an examination of the patient and discussed their management with the Nurse Practitioner. I have reviewed the Nurse Practitioner's notes and agree with the documented findings and plan of care)
[2018-03-13 11:42] LABS: Glucose,Whole Blood 149 mg/dL (75-99)
[2018-03-13] MEDS: ONDANSETRON 4 MG TAB PO PRN (16:02)
[2018-03-13] MEDS: ETODOLAC 200 MG CAPSULE PO PRN (16:24)
[2018-03-13 16:58] LABS: Glucose,Whole Blood 178 mg/dL (75-99)
[2018-03-13] MEDS: ASPIRIN 325 MG TAB PO SCH (18:05)
[2018-03-13 20:09] LABS: Glucose,Whole Blood 152 mg/dL (75-99)
[2018-03-13] MEDS ORDERED: ATORVASTATIN 20 MG TAB PO SCH (21:00)
[2018-03-13] MEDS: ESCITALOPRAM 20 MG TAB PO SCH (21:01)
[2018-03-13] MEDS: ZOLPIDEM 10 MG TAB PO SCH (21:01)
[2018-03-13] MEDS: HYDROmorphone 1 MG/ML 1 ML SYRINGE IVP PRN (21:01)
[2018-03-13] MEDS: TAMSULOSIN 0.4 MG CAP.ER.24H PO SCH (21:01)
[2018-03-14] MEDS ORDERED: HYDROmorphone 1 MG/ML 1 ML SYRINGE ONE (01:05)
[2018-03-14] MEDS: SODIUM CHLORIDE 0.9% 1,000 ML IV SCH ×3 (05:24→21:22)
[2018-03-14] MEDS: HYDROmorphone 1 MG/ML 1 ML SYRINGE IVP PRN ×2 (05:37→09:33)
[2018-03-14 06:02] LABS: Appearance,Urine Clear (Clear); Bacteria,Urine Rare /hpf; Bilirubin,Urine Negative (Negative); Blood,Urine Negative (Negative); Color,Urine Colorless; Glucose,Urine (UA) Negative (Negative); Ketones,Urine Negative (Negative); Leukocyte Esterase,Urine Large (Negative); Nitrite,Urine Negative (Negative); PH, Urine 5.5 (5.0-8.0); Protein,Urine Negative (Negative); Specific Gravity,Urine 1.006 (1.001-1.035); Squamous Epithelial Cell,Urine <1 /hpf (0-4); Urobilinogen,Urine <2.0 mg/dL (<2.0); WBC,Urine 47 /hpf (0-5)
[2018-03-14 06:12] LABS: Glucose,Whole Blood 100 mg/dL (75-99)
[2018-03-14 06:16] LABS: Anisocytosis Slight; Basophils # (A) 0.1 k/uL (0-0.2); Basophils % (A) 1 %; Eosinophils # (A) 0.1 k/uL (0-0.7); Eosinophils % (A) 1 %; HGB 8.6 gm/dL (11.4-16.0); Hypochromasia Marked; Lymphocytes # (A) 4.3 k/uL (1.0-4.8); Lymphocytes % (A) 44 %; MCH 21.6 pg (25.0-35.0); MCHC 30.6 g/dL (31.0-37.0); MCV 70.7 fL (80.0-100.0); Mean Platelet Volume 6.2; Microcytosis Moderate; Monocytes # (A) 0.4 k/uL (0-1.0); Monocytes % (A) 5 %; Neutrophils # (A) 4.7 k/uL (1.3-7.7); Neutrophils % (A) 48 %; Platelet Count 281 k/uL (150-450); RBC 3.96 m/uL (3.80-5.40); RDW 16.1 % (11.5-15.5); WBC 9.8 k/uL (3.8-10.6)
[2018-03-14] MEDS: INSULIN ASPART 100 UNIT/ML 1 ML 10 ML VIAL SQ SCH ×4 (06:16→21:23)
[2018-03-14] MEDS: buPROPion XL 300 MG TAB.ER.24H PO SCH ×2 (06:18→19:15)
[2018-03-14] MEDS: FUROSEMIDE 20 MG TAB PO SCH ×2 (06:18→19:14)
[2018-03-14 06:51] LABS: ALT 46 U/L (9-52); AST 36 U/L (14-36); Albumin 3.3 g/dL (3.5-5.0); Alkaline Phosphatase 77 U/L (38-126); Anion Gap 7 mmol/L; Blood Urea Nitrogen 17 mg/dL (7-17); Calcium 8.3 mg/dL (8.4-10.2); Carbon Dioxide 25 mmol/L (22-30); Chloride 108 mmol/L (98-107); Glucose 91 mg/dL (74-99); Potassium 3.7 mmol/L (3.5-5.1); Sodium 140 mmol/L (137-145); Total Bilirubin 0.4 mg/dL (0.2-1.3); Total Protein 5.9 g/dL (6.3-8.2)
[2018-03-14] MEDS ORDERED: ONDANSETRON 4 MG/2 ML VIAL ONE (08:05)
[2018-03-14] MEDS: ONDANSETRON 4 MG TAB PO PRN (08:09)
[2018-03-14] MEDS: ASPIRIN 325 MG TAB PO SCH (08:09)
--- NOTE | 2018-03-14 08:54 | CONS ---
CONSULTATION DATE OF CONSULTATION: 03/13/2018 CHIEF COMPLAINT: Transient ischemic attack. HISTORY OF PRESENT ILLNESS: The patient is a pleasant 47-year-old female who is being evaluated today on 03/13/2018 by the neurology service per the request of Dr. Elliott for a possible transient ischemic attack. The patient was brought into [facility] Emergency Room after she woke up with some left-sided weakness and numbness. The patient had been suffering with a headache prior to that. She reports having a history of transient ischemic attacks, but is not on any antiplatelet medications at home. In the emergency room, a CT of the brain was done, which was normal. A CT angiogram of the brain and neck were done, which showed no significant stenosis. Her cardiac enzymes were negative. Her CBC showed anemia with a hemoglobin of 9.7 and hematocrit of 32%. She had mild leukocytosis at 11.3. Her comprehensive metabolic profile showed slightly elevated AST at 49 and mild hyperglycemia at 149. Her fasting lipid panel showed dyslipidemia with a cholesterol level of 229 and LDL at 121. She states that she did have history of dyslipidemia and was on Zocor. This was discontinued approximately 6 months ago because she states that her "cholesterol test was normal". At the time of my evaluation, the patient is lying on her bed and appears to be in no acute distress. She reports resolution of her left-sided weakness and numbness. She still complains of a mild headache mostly in the left temporal region and she rates it at 5/10 in intensity. PAST MEDICAL HISTORY: Transient ischemic attack, migraine headaches, asthma, diabetes, gastroesophageal reflux disease, dyslipidemia, hypertension, arthritis, degenerative disc disease, history of bowel resection, tonsillectomy, cholecystectomy, bariatric surgery, appendectomy, cervical fusion, left fallopian to resection. SOCIAL HISTORY: She denies any tobacco or alcohol or drug use. FAMILY HISTORY: Positive for deep venous thrombosis, heart disease, diabetes, cancer. HOME MEDICATIONS: Reviewed in the chart. ALLERGIES: Multiple allergies reviewed in the chart. REVIEW OF SYSTEMS: CONSTITUTIONAL: Positive for fatigue. EYES: Negative. ENT: Positive for occasional tinnitus. CARDIOVASCULAR: Negative. RESPIRATORY: Negative. NEUROLOGICAL: As mentioned above. GASTROINTESTINAL: Positive for occasional heartburn and nausea. GENITOURINARY: Negative. PSYCHIATRIC: Negative. ENDOCRINE: Positive for diabetes. MUSCULOSKELETAL: Positive for frequent joint pain. DERMATOLOGICAL: Negative. PHYSICAL EXAM: Vital signs show a temperature of 98.5, pulse 65, respirations 16, blood pressure 101/66. GENERAL APPEARANCE: The patient is a well-developed female, who appears to be in no acute distress. HEENT: Normocephalic, atraumatic, no facial asymmetry is seen. Neck is supple with no masses felt. CARDIOVASCULAR: Regular rate and rhythm. ABDOMEN: Nontender, nondistended. Extremities showed no edema or clubbing. NEUROLOGICAL EXAM: The patient is awake and oriented x3. Speech and language are normal. Strength is full in all 4 extremities. Sensory exam was normal to light touch in all 4 extremities. No facial asymmetry is seen on cranial nerve testing. IMPRESSION: 1. Possible transient ischemic attack. 2. Left-sided weakness, resolved. 3. Headache. 4. Dyslipidemia. 5. Anemia. RECOMMENDATION: The patient did have a transient episode of left hemiparesis and left-sided numbness. This was also associated with a pre-existing headache. The patient may have had a transient ischemic attack versus a complicated migraine. She has been started on aspirin 325 mg daily. Continue analgesics as needed. Her CT angiograms showed no significant stenosis. As for her dyslipidemia, she should be started on statin therapy. I will start Lipitor 20 mg daily. I do recommend further workup and management for her anemia. Continue the rest of your current workup and management. I will continue to follow with you. Further recommendations to follow. Thank you for allowing me to participate in the care of your patient. If you have any questions, please feel free to contact me. KUSUM / ANN: [phone] /
[2018-03-14 11:40] LABS: Glucose,Whole Blood 109 mg/dL (75-99)
[2018-03-14] MEDS: ETODOLAC 200 MG CAPSULE PO PRN (12:08)
--- NOTE | 2018-03-14 12:10 | P.PN ---
Subjective Progress Note Date: 03/14/18 A 47-year-old patient of Dr. Knight who presented to the emergency room with complaints of al left sided headache and left-sided weakness. Patient is not sure of when the weakness started but knew that she had a headache that started then she had fallen asleep and when she had woken up while watching TV the weakness was present. Patient's was home and called EMS and the patient was brought to the hospital. Patient has a known medical history of asthma, CVA and TIA in the past with no deficits, diabetes mellitus, anxiety, depression, GERD, hyperlipidemia, hypertension, osteoarthritis, pneumonia and C. diff in 2013. Patient does have a surgical history of appendectomy, bariatric surgery, cholecystectomy and tonsillectomy. Head CT was completed emergency room and was a negative scan of the brain. CTA of the head and neck also completed with a negative CT angiogram of the neck and negative CT angiogram of the brain. Chest x-ray completed showing normal chest. EKG completed showing normal sinus rhythm, nonspecific T-wave abnormality. The echocardiogram has been ordered. Dr. Garcia for neurology has been consulted. Patient did state that she had previously been treated for a urinary tract infection but had finished all of her antibiotic. White blood cell count 11.3. Urinalysis has been ordered. Patient does complain of left sided headache radiating down to left neck but states it has improved since yesterday. Patient still complaining of left-sided weakness to upper extremity and lower extremity. No slurred speech or facial droop noted. Patient denies chest pain or shortness of breath. Denies nausea vomiting or diarrhea. Denies any urinary symptoms at this time. On 03/14/2018 patient currently resting in bed with complaints of left-sided headache. Patient does state that weakness and numbness in left arm and leg have significantly improved. Dr. Combs consulted for neurology. patient has been started on aspirin 325 mg. Per patient, Dr. Combs said possibility of MRI. Hemoglobin dropping to 8.6. Patient denies any signs of active bleeding at this time. Iron studies and occult blood have been ordered. UA positive for the large leukocyte Estrace. White blood cell returning to normal 9.8. Patient states she was treated outpatient for urinary tract infection but had finished all treatment. Denies any urinary burning or frequency this time. Awaiting urine culture. Objective - Vital Signs Vital signs: Vital Signs Temp 97.9 F 03/14/18 08:00 Pulse 72 03/14/18 08:00 Resp 18 03/14/18 08:00 BP 112/68 03/14/18 08:00 Pulse Ox 99 03/14/18 08:00 Intake & Output 03/13/18 03/14/18 03/14/18 18:59 06:59 18:59 Intake Total 600 980 Output Total 2600 700 Balance -1999 280 Weight 83.6 kg Intake: Intake, IV Titration 800 Amount Sodium Chloride 0.9% 1, 800 000 ml @ 100 mls/hr IV . Q10H [facility] Rx#:[id number] Oral 600 180 Output: Urine 2600 700 Other: Voiding Method Bedside Commode Toilet Bedside Commode # Bowel Movements 0 - Exam Head normocephalic Neck supple Lungs clear to auscultation bilaterally no wheezing or crackles Heart regular rate and rhythm S1-S2, no rub or gallop Abdomen is soft nontender nondistended positive bowel sounds no hepatosplenomegaly Extremities no edema Neuro alert and orientated to 3. No signs of facial droop or slurred speech. Equal strength throughout - Labs CBC & Chem 7: 03/14/18 05:38 03/14/18 05:38 Labs: Abnormal Lab Results - Last 24 Hours (Table) 03/12/18 03/13/18 03/13/18 Range/Units 17:44 16:37 20:07 Hgb (11.4-16.0) gm/dL Hct (34.0-46.0) % MCV (80.0-100.0) fL MCH (25.0-35.0) pg MCHC (31.0-37.0) g/dL RDW (11.5-15.5) % Chloride (98-107) mmol/L POC Glucose (mg/dL) 178 H 152 H (75-99) mg/dL Hemoglobin A1c 7.0 H (4.0-6.0) % Calcium (8.4-10.2) mg/dL Total Protein (6.3-8.2) g/dL Albumin (3.5-5.0) g/dL Ur Leukocyte Esterase (Negative) Urine WBC (0-5) /hpf Urine Bacteria (None) /hpf 03/13/18 03/14/18 03/14/18 Range/Units 21:30 05:38 05:38 Hgb 8.6 L (11.4-16.0) gm/dL Hct 28.0 L (34.0-46.0) % MCV 70.7 L (80.0-100.0) fL MCH 21.6 L (25.0-35.0) pg MCHC 30.6 L (31.0-37.0) g/dL RDW 16.1 H (11.5-15.5) % Chloride 108 H (98-107) mmol/L POC Glucose (mg/dL) (75-99) mg/dL Hemoglobin A1c (4.0-6.0) % Calcium 8.3 L (8.4-10.2) mg/dL Total Protein 5.9 L (6.3-8.2) g/dL Albumin 3.3 L (3.5-5.0) g/dL Ur Leukocyte Esterase Large H (Negative) Urine WBC 47 H (0-5) /hpf Urine Bacteria Rare H (None) /hpf 03/14/18 03/14/18 Range/Units 06:06 11:35 Hgb (11.4-16.0) gm/dL Hct (34.0-46.0) % MCV (80.0-100.0) fL MCH (25.0-35.0) pg MCHC (31.0-37.0) g/dL RDW (11.5-15.5) % Chloride (98-107) mmol/L POC Glucose (mg/dL) 100 H 109 H (75-99) mg/dL Hemoglobin A1c (4.0-6.0) % Calcium (8.4-10.2) mg/dL Total Protein (6.3-8.2) g/dL Albumin (3.5-5.0) g/dL Ur Leukocyte Esterase (Negative) Urine WBC (0-5) /hpf Urine Bacteria (None) /hpf Assessment and Plan Assessment: 1. Possible CVA/TIA with sided weakness and left-sided headache. CT of the brain negative. CTA of the neck and head negative. EKG showing normal sinus rhythm. 2-D echo has been ordered. Neurology has been consulted. Patient currently on aspirin 325 mg by mouth daily. Awaiting neurology consult. 2-D echo completed showing EF between 60 and 65%. Neurology following possible MRI per patient. 2. Leukocytosis. White blood cell elevated at 11.3. Patient did state she had finished treatment of antibiotics for UTI. Urinary analysis has been ordered. Urinary analysis positive for leukocyte esterase. Patient denies any urinary symptoms at this time. White blood count 9.8. Awaiting urinary culture 3. History of diabetes mellitus. Metformin currently on hold. Sliding scale insulin has been ordered 4. History of depression and anxiety. Continue Wellbutrin, Lexapro and Ativan 5. History of previous CVA/TIA. No previous deficits noted 6. History of asthma. No exacerbation at this time 7. History of osteoarthritis. Patient takes Tordal at home. Currently on Lodine. 8. History of C. diff infection. Patient had episode in 2012 9. History of Urinary tract infection. Patient stated she had finished complete antibiotic treatment with Keflex. 10. Anemia likely due to iron deficiency. Hemoglobin 8.6. Patient denies any signs of active bleeding at this time. Patient states she was told she was iron deficiency anemic when she was younger but could not tolerate being on ferrous sulfate. Iron studies and occult blood have been ordered. I performed an examination of the patient and discussed their management with the Nurse Practitioner. I have reviewed the Nurse Practitioner's notes and agree with the documented findings and plan of care
[2018-03-14] MEDS ORDERED: HYDROmorphone 1 MG/ML 1 ML SYRINGE IVP STA (13:14)
--- NOTE | 2018-03-14 15:28 | CDI ---
Last Revision, July 2017 Documentation Clarification Form Date: 03/14/2018 12:00:00 AM From: Mera Zarate RN, CCDS Admit Date: 03/12/2018 6:30:00 PM Patient Name: Bella Harper Visit Number: [id number] Discharge Date: ATTENTION: The Clinical Documentation Specialists (CDI) and [facility] Coding Staff appreciate your assistance in clarifying documentation. Please respond to the clarification below the line at the bottom and electronically sign. The CDI & [facility] Coding staff will review the response and follow-up if needed. Please note: Queries are made part of the Legal Health Record. If you have any questions, please contact the author of this message via ITS. Dr. Bushra Quinteros and your ongoing progress notes has CVA/TIA Presenting symptoms: Presented with complaints of a left sided headache and left -sided weakness. Patient history/risk factors: Asthma, CVA, TIA, no deficits, Diabetes Mellitus, Hypertension Clinical Indicators: Patient complaints of left-sided weakness to upper and lower extremities 3/5. She also complains of headache radiating down to left neck. No slurred speech or facial droop noted. Lab findings: WBC 9.6, HGB 10.4, HCT 34.1, UA- Leukocyte esterase large CT of brain negative CTA of neck and head negative Vital Signs: 110/73 79 16 98.7 Treatment: ASA PO, Neurological checks per protocol Consults: Neurology (Dr. Combs) Neurological exam: Patient is awake and orientated x3. Speech and language are normal. Strength is full in all 4 extremities. Sensory exam was normal to light touch in all 4 extremities. Patient did have a transient episode of the left hemiparesis and left-sided numbness. Transient ischemic attack versus a complicated migraine. The patients principal diagnosis has not been clearly identified and requires clarification. In your professional opinion, can you please clarify which diagnosis, after study, accounted for the patients presenting symptoms and was the reason chiefly responsible for the admission? CVA (Specify type) TIA (Specify cause if known) Other (specify) Unable to determine Please continue to document in your progress notes and discharge summary in order to capture severity of illness and risk of mortality. Include clinical findings that support your diagnosis. MTDD
--- NOTE | 2018-03-14 15:29 | P.PN ---
Subjective Progress Note Date: 03/14/18 Principal diagnosis: Possible TIA Neurology is following a 47-year-old female for possible TIA. Patient was brought to the emergency room after waking up with left-sided weakness and numbness on 03/12/18. Patient had suffered with a headache prior to that time. Patient reports having history of TIA but is not on antiplatelet medications prior to presentation ED. In the ED CT brain was done which was normal. CT angiogram of the brain and neck were done which showed no significant stenosis. CBC noted anemia. CMP showed slightly elevated AST and mild hyperglycemia. Fasting lipid panel showed dyslipidemia with cholesterol level of 229 and LDL at 121. Patient does acknowledge history of dyslipidemia and was on Zocor. Patient discontinued medication approximately 6 months ago when her cholesterol panel/lipid panel was reportedly normal. On contact today, patient was supine in bed, resting in no acute distress. Patient was alert and oriented 3. Patient states that her symptoms have resolved with the exception of her left-sided retro-orbital and unilateral left head pain. Patient states she does have intermittent bilateral head pain but is significantly more unilateral. Patient was given Dilaudid prior to provider patient today by approximately 30 minutes. Patient states that Dilaudid is only mildly decreased her pain. Consideration was given for possible MRI of the brain without contrast previously if the patient's symptoms did not resolve. Objective - Vital Signs Vital signs: Vital Signs Temp 96.8 F L 03/14/18 12:00 Pulse 63 03/14/18 12:00 Resp 16 03/14/18 12:00 BP 91/53 03/14/18 12:00 Pulse Ox 97 03/14/18 12:00 Intake & Output 03/13/18 03/14/18 03/14/18 18:59 06:59 18:59 Intake Total 600 1180 Output Total 2600 700 Balance -2000 480 Weight 83.6 kg Intake: Intake, IV Titration 800 Amount Sodium Chloride 0.9% 1, 800 000 ml @ 100 mls/hr IV . Q10H [facility] Rx#:[id number] Oral 600 380 Output: Urine 2600 700 Other: Voiding Method Bedside Commode Toilet Bedside Commode # Bowel Movements 0 - Exam General appearance: alert, oriented x3, no apparent distress Head: atraumatic, normocephalic Eyes: PERRLA, EOMI. Absent nystagmus, periorbital swelling ENT: normal exam, mucous membranes moist Neck: normal, no tenderness Respiratory: no increased work of breathing CV: regular rate, rhythm GI/Abdominal: no tenderness or guarding Extremities: full range of motion, no tenderness, edema or joint swelling Neurological: cranial nerves II-XII grossly intact no lateralizing weakness no seizure activity noted on physical exam, no pronator drift, no nystagmus however next nystagmus does induce blurry vision and finger to nose testing also induces blurry vision with intermittent dizziness. extremity strengths: Equal in all 4 extremities sensation: Normal to light touch Psychological: mood and affect appropriate for setting - Labs CBC & Chem 7: 03/14/18 05:38 03/14/18 05:38 Labs: Abnormal Lab Results - Last 24 Hours (Table) 03/12/18 03/13/18 03/13/18 Range/Units 17:44 16:37 20:07 Hgb (11.4-16.0) gm/dL Hct (34.0-46.0) % MCV (80.0-100.0) fL MCH (25.0-35.0) pg MCHC (31.0-37.0) g/dL RDW (11.5-15.5) % Chloride (98-107) mmol/L POC Glucose (mg/dL) 178 H 152 H (75-99) mg/dL Hemoglobin A1c 7.0 H (4.0-6.0) % Calcium (8.4-10.2) mg/dL Total Protein (6.3-8.2) g/dL Albumin (3.5-5.0) g/dL Ur Leukocyte Esterase (Negative) Urine WBC (0-5) /hpf Urine Bacteria (None) /hpf 03/13/18 03/14/18 03/14/18 Range/Units 21:30 05:38 05:38 Hgb 8.6 L (11.4-16.0) gm/dL Hct 28.0 L (34.0-46.0) % MCV 70.7 L (80.0-100.0) fL MCH 21.6 L (25.0-35.0) pg MCHC 30.6 L (31.0-37.0) g/dL RDW 16.1 H (11.5-15.5) % Chloride 108 H (98-107) mmol/L POC Glucose (mg/dL) (75-99) mg/dL Hemoglobin A1c (4.0-6.0) % Calcium 8.3 L (8.4-10.2) mg/dL Total Protein 5.9 L (6.3-8.2) g/dL Albumin 3.3 L (3.5-5.0) g/dL Ur Leukocyte Esterase Large H (Negative) Urine WBC 47 H (0-5) /hpf Urine Bacteria Rare H (None) /hpf 03/14/18 03/14/18 Range/Units 06:06 11:35 Hgb (11.4-16.0) gm/dL Hct (34.0-46.0) % MCV (80.0-100.0) fL MCH (25.0-35.0) pg MCHC (31.0-37.0) g/dL RDW (11.5-15.5) % Chloride (98-107) mmol/L POC Glucose (mg/dL) 100 H 109 H (75-99) mg/dL Hemoglobin A1c (4.0-6.0) % Calcium (8.4-10.2) mg/dL Total Protein (6.3-8.2) g/dL Albumin (3.5-5.0) g/dL Ur Leukocyte Esterase (Negative) Urine WBC (0-5) /hpf Urine Bacteria (None) /hpf Assessment and Plan (1) TIA (transient ischemic attack) Current Visit: Yes Status: Acute Code(s): G45.9 - TRANSIENT CEREBRAL ISCHEMIC ATTACK, UNSPECIFIED SNOMED Code(s): 730925318 (2) Left-sided muscle weakness Current Visit: Yes Status: Acute Code(s): M62.81 - MUSCLE WEAKNESS ( GENERALIZED) SNOMED Code(s): 467479928 (3) Head pain Current Visit: Yes Status: Acute Code(s): R51 - HEADACHE SNOMED Code(s): 25492092 (4) Dyslipidemia Current Visit: Yes Status: Acute Code(s): E78.5 - HYPERLIPIDEMIA, UNSPECIFIED SNOMED Code(s): 320658104 (5) Anemia Current Visit: Yes Status: Acute Code(s): D64.9 - ANEMIA, UNSPECIFIED SNOMED Code(s): 248192611 Plan: 1. Possible TIA neck sign Patient did have transient episode of left hemiparesis and left-sided numbness. Patient also has noted pre-existing headache prior to presentation. At this point further attempts to differentiate TIA versus complicated migraine. Patient was started on aspirin 325 mg daily post admission. CT angiogram showed no significant stenosis. However, patient still has complaints of left retro-orbital pain. Given the patient's lack of resolution and continued ongoing symptoms, I am going to order an MRI of the brain without contrast to investigate any new or changed underlying etiology. See further comments in #3 below. 2. Left-sided weakness Resolved 3. Headache Patient is still having ongoing left retro-orbital pain. Symptoms have not relented to this point despite patient's previous history of migraine. This is atypical for patient. As noted above, I am going to request MRI of the brain additionally I will request/prescribe IV Solu-Medrol 250 mg every 8 hours for the next 24 hours with sliding scale insulin coverage and bedside glucose checks per protocol. Notify neurology with any new neurological status changes. 4. Dyslipidemia Continue statin therapy as currently prescribed/implemented. Ongoing management per primary team. 5. Anemia Defer to primary team for further management Continue to correct underlying etiology STATUS: Neurology will continue to follow and provide updates as needed or warranted. Feel free to contact our office with any questions. I discussed the patients history, physical exam, diagnostic testing, lab work and imaging with Dr Combs prior to implementing the plan above. He agrees with the plan as implemented prior to implementation.
[2018-03-14 16:26] LABS: Glucose,Whole Blood 85 mg/dL (75-99)
[2018-03-14] MEDS: PANTOPRAZOLE 40 MG TABLET PO SCH (16:49)
[2018-03-14] MEDS: methylPREDNISolone SOD SUCCI 250 MG in SODIUM CHLORIDE 0.9% 100 ML IVPB SCH ×2 (16:49→23:21)
[2018-03-14] MEDS ORDERED: HYDROmorphone 2 MG TAB PO PRN (18:38)
[2018-03-14 18:52] LABS: Iron Saturation 7.61 (12.00-45.00)
[2018-03-14] MEDS ORDERED: LORazepam 2 MG/ML INJ IV ONE (19:52)
[2018-03-14 20:50] LABS: Glucose,Whole Blood 239 mg/dL (75-99)
[2018-03-14] MEDS: ZOLPIDEM 10 MG TAB PO SCH (21:23)
[2018-03-14] MEDS: TAMSULOSIN 0.4 MG CAP.ER.24H PO SCH (21:23)
[2018-03-14] MEDS: ESCITALOPRAM 20 MG TAB PO SCH (21:23)
--- NOTE | 2018-03-14 22:35 | MR ---
EXAMINATION TYPE: MR brain wo con DATE OF EXAM: 03/14/2018 COMPARISON: Prior MRI brain May 24, 2016. Recent CT brain from 2 days ago. HISTORY: CVA/TIA per order. Admitted for neuro deficits 2 days earlier. TECHNIQUE: Multiplanar, multisequence imaging of the brain and brainstem is performed without IV cont rast. FINDINGS: Diffusion weighted images demonstrate no evidence of a recent infarct or other diffusion abnormality. There is no extraaxial fluid collection or significant white matter signal abnormality. The ventricu lar system and cisternal spaces are normal in size and appearance. The brain volume is age appropria te. Midline structures demonstrate normal morphology. The craniocervical junction appears within normal limits. Normal vascular flow voids are present. The visualized sinuses are clear and the globes are i ntact. IMPRESSION: No evidence of a recent infarct. No suspicious finding identified to account for patient' s symptoms.
[2018-03-15 05:52] LABS: Glucose,Whole Blood 213 mg/dL (75-99)
[2018-03-15 06:24] LABS: Anisocytosis Slight; Basophils % (A) 0 %; Eosinophils # (A) 0.1 k/uL (0-0.7); Eosinophils % (A) 1 %; HCT 36.4 % (34.0-46.0); HGB 10.8 gm/dL (11.4-16.0); Hypochromasia Moderate; Lymphocytes # (A) 0.5 k/uL (1.0-4.8); Lymphocytes % (A) 4 %; MCH 24.5 pg (25.0-35.0); MCHC 29.7 g/dL (31.0-37.0); Monocytes # (A) 0.5 k/uL (0-1.0); Monocytes % (A) 4 %; Neutrophils # (A) 11.1 k/uL (1.3-7.7); Neutrophils % (A) 90 %; Platelet Count 218 k/uL (150-450); RBC 4.41 m/uL (3.80-5.40); RDW 16.1 % (11.5-15.5); WBC 12.3 k/uL (3.8-10.6)
[2018-03-15] MEDS: SODIUM CHLORIDE 0.9% 1,000 ML IV SCH (06:36)
[2018-03-15] MEDS: FUROSEMIDE 20 MG TAB PO SCH (06:36)
[2018-03-15] MEDS: PANTOPRAZOLE 40 MG TABLET PO SCH (06:36)
[2018-03-15] MEDS: buPROPion XL 300 MG TAB.ER.24H PO SCH (06:36)
[2018-03-15] MEDS: INSULIN ASPART 100 UNIT/ML 1 ML 10 ML VIAL SQ SCH ×2 (06:36→12:52)
[2018-03-15 06:53] LABS: ALT 42 U/L (9-52); AST 30 U/L (14-36); Albumin 3.7 g/dL (3.5-5.0); Alkaline Phosphatase 89 U/L (38-126); Anion Gap 10 mmol/L; Blood Urea Nitrogen 18 mg/dL (7-17); Calcium 9.1 mg/dL (8.4-10.2); Carbon Dioxide 25 mmol/L (22-30); Chloride 103 mmol/L (98-107); Glucose 214 mg/dL (74-99); Potassium 4.6 mmol/L (3.5-5.1); Sodium 138 mmol/L (137-145); Total Bilirubin 0.3 mg/dL (0.2-1.3); Total Protein 6.6 g/dL (6.3-8.2)
[2018-03-15 07:00] LABS: MCV 82.5 fL (80.0-100.0)
[2018-03-15 08:39] VITALS: BP 91/50; PULSE 85; RESP 14; TEMP 97.5
[2018-03-15] MEDS: ASPIRIN 325 MG TAB PO SCH (10:29)
[2018-03-15] MEDS: methylPREDNISolone SOD SUCCI 250 MG in SODIUM CHLORIDE 0.9% 100 ML IVPB SCH (10:29)
[2018-03-15] MEDS: ETODOLAC 200 MG CAPSULE PO PRN (11:45)
[2018-03-15 11:56] LABS: Glucose,Whole Blood 228 mg/dL (75-99)
--- NOTE | 2018-03-15 14:10 | P.PN ---
Subjective Progress Note Date: 03/15/18 Principal diagnosis: Migraine Neurology is following a 47-year-old female for possible TIA. Patient was brought to the emergency room after waking up with left-sided weakness and numbness on 03/12/18. Patient had suffered with a headache prior to that time. Patient reports having history of TIA but is not on antiplatelet medications prior to presentation ED. In the ED CT brain was done which was normal. CT angiogram of the brain and neck were done which showed no significant stenosis. CBC noted anemia. CMP showed slightly elevated AST and mild hyperglycemia. Fasting lipid panel showed dyslipidemia with cholesterol level of 229 and LDL at 121. Patient does acknowledge history of dyslipidemia and was on Zocor. Patient discontinued medication approximately 6 months ago when her cholesterol panel/lipid panel was reportedly normal. On contact today, patient was supine in bed, resting in no acute distress. Patient was alert and oriented 3. Patient states that her symptoms have resolved with the exception of her left-sided retro-orbital and unilateral left head pain. Patient states she does have intermittent bilateral head pain but is significantly more unilateral. Patient was given Dilaudid prior to provider patient today by approximately 30 minutes. Patient states that Dilaudid is only mildly decreased her pain. Consideration was given for possible MRI of the brain without contrast previously if the patient's symptoms did not resolve. Interval update 03/15/18: On contact, patient was alert and oriented 3, sitting in bed, no acute distress. No family or visitors in the room. Patient reports that she is approximately 85-90% back to baseline. Patient still has mild left retro- orbital pain. Patient is currently still completing 24 hour IV Solu-Medrol/250 mg every 8 hours IV infusion. Patient is progressing well. Patient has no neurological deficits, reports no neurological changes in the last 24 hours. Nursing confirmed no neurological status changes. 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 Objective - Vital Signs Vital signs: Vital Signs Temp 97.5 F L 03/15/18 08:00 Pulse 85 03/15/18 08:00 Resp 14 03/15/18 08:00 BP 91/50 03/15/18 08:00 Pulse Ox 100 03/15/18 08:00 Intake & Output 03/14/18 03/15/18 03/15/18 18:59 06:59 18:59 Intake Total 1402 800 220 Output Total 700 Balance 702 800 220 Weight 84.3 kg Intake: IV 800 0.9 800 Intake, IV Titration 800 Amount Sodium Chloride 0.9% 1, 800 000 ml @ 100 mls/hr IV . Q10H [facility] Rx#:[id number] Oral 602 220 Output: Urine 700 Other: Voiding Method Toilet Toilet Bedside Commode Bedside Commode # Voids 1 - Exam General appearance: alert, oriented x3, no apparent distress Head: atraumatic, normocephalic Eyes: PERRLA, EOMI. Absent nystagmus, periorbital swelling ENT: normal exam, mucous membranes moist Neck: normal, no tenderness Respiratory: no increased work of breathing CV: regular rate, rhythm GI/Abdominal: no tenderness or guarding Extremities: full range of motion, no tenderness, edema or joint swelling Neurological: cranial nerves II-XII grossly intact no lateralizing weakness no seizure activity noted on physical exam, no pronator drift, no nystagmus extremity strengths: Equal in all 4 extremities sensation: Normal to light touch Psychological: mood and affect appropriate for setting - Labs CBC & Chem 7: 03/15/18 05:38 03/15/18 05:38 Labs: Abnormal Lab Results - Last 24 Hours (Table) 03/14/18 03/14/18 03/15/18 Range/Units 05:38 20:48 05:38 WBC 12.3 H (3.8-10.6) k/uL Hgb 10.8 L (11.4-16.0) gm/dL MCH 24.5 L (25.0-35.0) pg MCHC 29.7 L (31.0-37.0) g/dL RDW 16.1 H (11.5-15.5) % Neutrophils # 11.1 H (1.3-7.7) k/uL Lymphocytes # 0.5 L (1.0-4.8) k/uL BUN (7-17) mg/dL Glucose (74-99) mg/dL POC Glucose (mg/dL) 239 H (75-99) mg/dL Iron 28 L (50-170) ug/dL Iron Saturation 7.61 L (12.00-45.00) 03/15/18 03/15/18 03/15/18 Range/Units 05:38 05:51 11:32 WBC (3.8-10.6) k/uL Hgb (11.4-16.0) gm/dL MCH (25.0-35.0) pg MCHC (31.0-37.0) g/dL RDW (11.5-15.5) % Neutrophils # (1.3-7.7) k/uL Lymphocytes # (1.0-4.8) k/uL BUN 18 H (7-17) mg/dL Glucose 214 H (74-99) mg/dL POC Glucose (mg/dL) 213 H 228 H (75-99) mg/dL Iron (50-170) ug/dL Iron Saturation (12.00-45.00) Microbiology - Last 24 Hours (Table) 03/14/18 09:29 Urine Culture - Final Urine,Clean Catch Assessment and Plan (1) TIA (transient ischemic attack) Current Visit: Yes Status: Acute Code(s): G45.9 - TRANSIENT CEREBRAL ISCHEMIC ATTACK, UNSPECIFIED SNOMED Code(s): 023082988 (2) Left-sided muscle weakness Current Visit: Yes Status: Acute Code(s): M62.81 - MUSCLE WEAKNESS ( GENERALIZED) SNOMED Code(s): 783188779 (3) Head pain Current Visit: Yes Status: Acute Code(s): R51 - HEADACHE SNOMED Code(s): 65347330 (4) Dyslipidemia Current Visit: Yes Status: Acute Code(s): E78.5 - HYPERLIPIDEMIA, UNSPECIFIED SNOMED Code(s): 507606892 (5) Anemia Current Visit: Yes Status: Acute Code(s): D64.9 - ANEMIA, UNSPECIFIED SNOMED Code(s): 241779993 Plan: 1. Possible TIA neck sign Patient did have transient episode of left hemiparesis and left-sided numbness. Patient also has noted pre-existing headache prior to presentation. Patient has had 24 hours IV Solu-Medrol 250 mg every 8 hours and has returned 95% back to baseline. Patient states she is tolerable at this time with her pain. 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 2. Left-sided weakness Resolved 3. Headache See notes #1 above 4. Dyslipidemia Continue statin therapy as currently prescribed/implemented. Ongoing management per primary team. 5. Anemia Defer to primary team for further management Continue to correct underlying etiology STATUS: Neurology will clear the patient for discharge at this time. Advised patient to contact our office within 10-14 days for a follow-up in the office. I discussed the patients history, physical exam, diagnostic testing, lab work and imaging with Dr Combs prior to implementing the plan above. He agrees with the plan as implemented prior to implementation.
--- NOTE | 2018-03-15 15:18 | P.DS ---
Providers Date of admission: 03/12/18 18:30 Expected date of discharge: 03/15/18 Attending physician: Bushra Elliott Consults: 03/12/18 18:30 Consult Physician Routine Consulting Provider: Myesha Combs Consult Reason/Comments: cva Do you want consulting provider notified?: Yes Primary care physician: Macy Knight [facility] Course: Discharge diagnosis 1. Transient ischemic attack with sided weakness and left-sided headache. CT of the brain negative. CTA of the neck and head negative. EKG showing normal sinus rhythm. 2-D echo has been ordered. Neurology has been consulted. Patient currently on aspirin 325 mg by mouth daily. Awaiting neurology consult. 2-D echo completed showing EF between 60 and 65%. Neurology following possible MRI per patient. MRI completed showing no evidence of recent infarct. No suspicious finding identified to comp patient's symptoms. Patient was given IV Solu-Medrol per neurology for headache. Patient will follow-up outpatient with neurology for headache control. Patient will be DC'd home on aspirin 325 and Zocor 40 2. Leukocytosis. White blood cell elevated at 11.3. Patient did state she had finished treatment of antibiotics for UTI. Urinary analysis has been ordered. Urinary analysis positive for leukocyte esterase. Patient denies any urinary symptoms at this time. White blood count 9.8. Awaiting urinary culture. Urine culture no growth 3. History of diabetes mellitus. Metformin currently on hold. Sliding scale insulin has been ordered. Resume metformin dose on discharge 4. History of depression and anxiety. Continue Wellbutrin, Lexapro and Ativan 5. History of previous CVA/TIA. No previous deficits noted 6. History of asthma. No exacerbation at this time 7. History of osteoarthritis. Patient takes Tordal at home. Currently on Lodine. Toradol DC'd due to interaction with aspirin and risk of bleeding 8. History of C. diff infection. Patient had episode in 2012 9. History of Urinary tract infection. Patient stated she had finished complete antibiotic treatment with Keflex. 10. Anemia likely due to iron deficiency. Hemoglobin 8.6. Patient denies any signs of active bleeding at this time. Patient states she was told she was iron deficiency anemic when she was younger but could not tolerate being on ferrous sulfate. Patient states she cannot tolerate any ferrous sulfate. Hemoglobin improving to 10.8. Patient to follow-up outpatient with primary care provider. Hospital Course A 47-year-old patient of Dr. Knight who presented to the emergency room with complaints of al left sided headache and left-sided weakness. Patient is not sure of when the weakness started but knew that she had a headache that started then she had fallen asleep and when she had woken up while watching TV the weakness was present. Patient's was home and called EMS and the patient was brought to the hospital. Patient has a known medical history of asthma, CVA and TIA in the past with no deficits, diabetes mellitus, anxiety, depression, GERD, hyperlipidemia, hypertension, osteoarthritis, pneumonia and C. diff in 2013. Patient does have a surgical history of appendectomy, bariatric surgery, cholecystectomy and tonsillectomy. Head CT was completed emergency room and was a negative scan of the brain. CTA of the head and neck also completed with a negative CT angiogram of the neck and negative CT angiogram of the brain. Chest x-ray completed showing normal chest. EKG completed showing normal sinus rhythm, nonspecific T-wave abnormality. The echocardiogram has been ordered. Dr. Garcia for neurology has been consulted. Patient did state that she had previously been treated for a urinary tract infection but had finished all of her antibiotic. White blood cell count 11.3. Urinalysis has been ordered. Patient does complain of left sided headache radiating down to left neck but states it has improved since yesterday. Patient still complaining of left-sided weakness to upper extremity and lower extremity. No slurred speech or facial droop noted. Patient denies chest pain or shortness of breath. Denies nausea vomiting or diarrhea. Denies any urinary symptoms at this time. On 03/14/2018 patient currently resting in bed with complaints of left-sided headache. Patient does state that weakness and numbness in left arm and leg have significantly improved. Dr. Combs consulted for neurology. patient has been started on aspirin 325 mg. Per patient, Dr. Combs said possibility of MRI. Hemoglobin dropping to 8.6. Patient denies any signs of active bleeding at this time. Iron studies and occult blood have been ordered. UA positive for the large leukocyte Estrace. White blood cell returning to normal 9.8. Patient states she was treated outpatient for urinary tract infection but had finished all treatment. Denies any urinary burning or frequency this time. Awaiting urine culture. On 03/15/2018 patient has been cleared for discharge from neurology. Will follow-up outpatient. Received Solu-Medrol for headache per neurology. Patient will be DC'd home on aspirin and statin. Urine culture negative. I performed an examination of the patient and discussed their management with the Nurse Practitioner. I have reviewed the Nurse Practitioner's notes and agree with the documented findings and plan of care Patient Condition at Discharge: Stable Plan - Discharge Summary Discharge Rx Participant: No New Discharge Prescriptions: New Aspirin 325 mg PO DAILY #30 tab Simvastatin [Zocor] 40 mg PO HS #30 tab Continue Furosemide [Lasix] 20 mg PO BID@ Ondansetron [Zofran] 4 mg PO BID PRN PRN Reason: Nausea LORazepam [Ativan] 0.5 mg PO DAILY PRN PRN Reason: Anxiety metFORMIN HCL [Glucophage] 250 mg PO HS buPROPion HCL [Wellbutrin XL] 300 mg PO BID@ Tamsulosin HCl [Flomax] 0.4 mg PO HS Escitalopram [Lexapro] 20 mg PO HS Rizatriptan Benzoate [Maxalt [employer]] 10 mg PO DAILY PRN PRN Reason: Migraine Headache Zolpidem Tartrate [Ambien] 10 mg PO HS Discontinued Ketorolac [Toradol] 10 mg PO BID PRN PRN Reason: Pain Cephalexin [Keflex] 500 mg PO Q12HR #14 cap Discharge Medication List Furosemide [Lasix] 20 mg PO BID@09/19/16 [History] Ondansetron [Zofran] 4 mg PO BID PRN 08/19/17 [History] LORazepam [Ativan] 0.5 mg PO DAILY PRN 09/27/17 [History] buPROPion HCL [Wellbutrin XL] 300 mg PO BID@09/27/17 [History] metFORMIN HCL [Glucophage] 250 mg PO HS 09/27/17 [History] Escitalopram [Lexapro] 20 mg PO HS 01/15/18 [History] Tamsulosin HCl [Flomax] 0.4 mg PO HS 01/15/18 [History] Rizatriptan Benzoate [Maxalt [employer]] 10 mg PO DAILY PRN 03/06/18 [History] Zolpidem Tartrate [Ambien] 10 mg PO HS 03/06/18 [History] Aspirin 325 mg PO DAILY #30 tab 03/15/18 [Rx] Simvastatin [Zocor] 40 mg PO HS #30 tab 03/15/18 [Rx] Follow up Appointment(s)/Referral(s): Macy Knight MD [Primary Care Provider] - 03/18/18 8:45 am (Sunday with SURVEY SUPERVISOR) Myesha Combs MD [STAFF PHYSICIAN] - 3 Days Patient Instructions/Handouts: Transient Ischemic Attack (DC) Activity/Diet/Wound Care/Special Instructions: Dr. Combs will not see pt as an out pt Diet heart healthy Activity as tolerated Discharge Disposition: HOME SELF-CARE
[2018-03-15 17:11] LABS: Glucose,Whole Blood 223 mg/dL (75-99)
== END 2018-03-15 18:00 | disposition home or self-care (01) | DRG 69 ==
LOC: EC 17:20 → 6SEL 18:30
PROVIDERS: ADMIT Internal Medicine; ATTEND Internal Medicine
DX: G45.9 Transient cerebral ischemic attack, unspecified (principal); G43.409 Hemiplegic migraine, not intractable, without status migrainosus; R29.706 NIHSS score 6; E78.5 Hyperlipidemia, unspecified; D72.829 Elevated white blood cell count, unspecified; J45.909 Unspecified asthma, uncomplicated; F32.9 Major depressive disorder, single episode, unspecified; F41.9 Anxiety disorder, unspecified; M19.90 Unspecified osteoarthritis, unspecified site; D50.9 Iron deficiency anemia, unspecified; E11.40 Type 2 diabetes mellitus with diabetic neuropathy, unspecified; K21.9 Gastro-esophageal reflux disease without esophagitis; M50.30 Other cervical disc degeneration, unspecified cervical region; M79.7 Fibromyalgia; E11.65 Type 2 diabetes mellitus with hyperglycemia; K58.9 Irritable bowel syndrome, unspecified; J30.2 Other seasonal allergic rhinitis; K44.9 Diaphragmatic hernia without obstruction or gangrene; N83.201 Unspecified ovarian cyst, right side; I10 Essential (primary) hypertension; Z87.11 Personal history of peptic ulcer disease; Z86.73 Personal history of transient ischemic attack (TIA), and cerebral infarction without residual deficits; Z86.19 Personal history of other infectious and parasitic diseases; Z87.440 Personal history of urinary (tract) infections; Z87.442 Personal history of urinary calculi; Z90.49 Acquired absence of other specified parts of digestive tract; Z80.1 Family history of malignant neoplasm of trachea, bronchus and lung; Z80.0 Family history of malignant neoplasm of digestive organs; Z82.49 Family history of ischemic heart disease and other diseases of the circulatory system; Z83.3 Family history of diabetes mellitus; Z85.41 Personal history of malignant neoplasm of cervix uteri; Z98.84 Bariatric surgery status; Z98.1 Arthrodesis status; Z90.89 Acquired absence of other organs; Z79.84 Long term (current) use of oral hypoglycemic drugs; Z79.899 Other long term (current) drug therapy; Z88.1 Allergy status to other antibiotic agents; Z91.041 Radiographic dye allergy status; Z88.5 Allergy status to narcotic agent; Z91.010 Allergy to peanuts; Z91.013 Allergy to seafood; Z88.2 Allergy status to sulfonamides; Z88.8 Allergy status to other drugs, medicaments and biological substances; Z91.018 Allergy to other foods
CPT/HCPCS: 36415; 70450; 70496; 70498; 70551; 71046; 80053; 80061; 81001; 82272; 82550; 82553; 82728; 83036; 83540; 83550; 84484; 85025; 85610; 85730; 87086; 93005; 93306; 96361; 96374; 96375; 96376; 99291

== ENCOUNTER 2018-05-02 23:16 | Emergency (ER) | payer OTHER ==
[2018-05-02 23:27] VITALS: TEMP 98.3
[2018-05-02] MEDS ORDERED: SODIUM CHLORIDE 0.9% 1,000 ML IV STA (23:54)
[2018-05-02] MEDS ORDERED: DEXAMETHASONE SOD PHOSPHATE 10 MG/ML 1 ML VIAL IV STA (23:55)
[2018-05-02] MEDS ORDERED: METOCLOPRAMIDE 5 MG/ML 2 ML VIAL IVP STA (23:55)
[2018-05-02] MEDS ORDERED: diphenhydrAMINE 50 MG/ML 1 ML VIAL IVP STA (23:55)
--- NOTE | 2018-05-02 23:59 | ED ---
General Adult HPI - General Chief complaint: Chest Pain Stated complaint: CHEST PAIN Time Seen by Provider: 05/02/18 23:49 Source: patient, RN notes reviewed, old records reviewed Mode of arrival: ambulatory Limitations: no limitations - History of Present Illness Initial comments: 47-year-old female history of migraine headache presents for evaluation of typical migraine headache. Patient states her headache has been present for the past 4 days. She was seen by her primary care physician who prescribed Maxalt and Valium. This did not improve her headache symptoms. Approximately 5 hours prior to arrival patient developed some left-sided chest pain. Is nonradiating. She did have some left facial numbness and left neck pain. Patient has history of chronic neck pain status post fusion. She previously received injections by neurology however she has not had this in some time. She states that she has similar episode of numbness several months ago, she was admitted to the hospital for CVA workup. She was ultimately told this was related to her migraine. Patient does have history diabetes. - Related Data Home Medications Medication Instructions Recorded Confirmed Furosemide [Lasix] 20 mg PO BID@09/19/16 05/02/18 Ondansetron [Zofran] 4 mg PO BID PRN 08/19/17 05/02/18 LORazepam [Ativan] 0.5 mg PO DAILY PRN 09/27/17 05/02/18 buPROPion HCL [Wellbutrin XL] 300 mg PO BID@,09/27/17 05/02/18 metFORMIN HCL [Glucophage] 250 mg PO HS 09/27/17 05/02/18 Escitalopram [Lexapro] 20 mg PO HS 01/15/18 05/02/18 Tamsulosin HCl [Flomax] 0.4 mg PO HS 01/15/18 05/02/18 Rizatriptan Benzoate [Maxalt [employer]ING [employer]] 10 mg PO DAILY PRN 03/06/18 05/02/18 Zolpidem Tartrate [Ambien] 10 mg PO HS 03/06/18 05/02/18 Ketorolac [Toradol] 10 mg PO BID PRN 05/02/18 05/02/18 Allergies Allergy/AdvReac Type Severity Reaction Status Date / Time oxycodone [From Percocet] Allergy Unknown Swelling; Verified 05/02/18 23:26 (WAS ABLE TO TAKE ALONG WITH BENADRYL) apricot Allergy Dyspnea Verified 05/02/18 23:26 barium sulfate Allergy Anaphylaxis Verified 05/02/18 23:26 [From Readi-Cat] codeine Allergy Anaphylaxis Verified 05/02/18 23:26 hydrocodone [From Lortab] Allergy Swelling Verified 05/02/18 23:26 Iodinated Contrast- Oral and Allergy Anaphylaxis Verified 05/02/18 23:26 IV Dye iodine Allergy Rash/Hives Verified 05/02/18 23:26 morphine Allergy Rash/Hives Verified 05/02/18 23:26 peach Allergy Swelling Verified 05/02/18 23:26 peanut Allergy Swelling Verified 05/02/18 23:26 peanut oil Allergy Anaphylaxis Verified 05/02/18 23:26 shellfish derived [Shellfish] Allergy Anaphylaxis Verified 05/02/18 23:26 strawberry Allergy Anaphylaxis Verified 05/02/18 23:26 sucralfate [From Carafate] Allergy Swelling Verified 05/02/18 23:26 Sulfa (Sulfonamide Allergy Anaphylaxis Verified 05/02/18 23:26 Antibiotics) sulfamethoxazole Allergy Anaphylaxis Verified 05/02/18 23:26 [From Bactrim] tree nut [Nut] Allergy Swelling Verified 05/02/18 23:26 trimethoprim [From Bactrim] Allergy Anaphylaxis Verified 05/02/18 23:26 Review of Systems ROS Statement: Those systems with pertinent positive or pertinent negative responses have been documented in the HPI. ROS Other: All systems not noted in ROS Statement are negative. Past Medical History Past Medical History: Asthma, CVA/TIA, Diabetes Mellitus, GERD/Reflux, Hyperlipidemia, Hypertension, Osteoarthritis (OA), Pneumonia Additional Past Medical History / Comment(s): "no longer takes meds for bp "NIDDM. past tia 2015. diabetic neuropathy eli feet, migraines, cervical disc disease, DDD, eli tinnitis, arthiritis bilateral shoulders, poss fibromyalgia- pt in process of being diagnosed, seasonal allergies, IBS, HX R arm fx yrs ago , R ovarian cyst, hiatal hernia, UTIs, urinary calculus, pancreatitis x 2, stomach ulcer. pt stated she had a pne vaccine approx 2 years ago,aligner typewriter unable to verify date at time of this this admit. History of Any Multi-Drug Resistant Organisms: C-DIFF Date of last positivie culture/infection: 2012 MDRO Source:: stool Past Surgical History: Appendectomy, Bariatric Surgery, Cholecystectomy, Tonsillectomy Additional Past Surgical History / Comment(s): 2010 felix-en-Y, fistula repair 2011, 2011 gastric bypass revision, bowel resection, lap gastrojejunostomy anastamosis revision, EGD and colonoscopy, cone bx-cervical cancer remove with cryo, L fallopian tube removed due to cyst, picc line in and out, CERVICAL FUSION 12/21/16. Past Anesthesia/Blood Transfusion Reactions: Family History of Problems w/ Anesthesia, Motion Sickness, Postoperative Nausea & Vomiting (PONV) Additional Past Anesthesia/Blood Transfusion Reaction / Comment(s): Pt states she has never recieved blood. FAMILY HX PONV. Past Psychological History: Anxiety, Depression Smoking Status: Never smoker Past Alcohol Use History: None Reported Past Drug Use History: None Reported - Past Family History Brother(s) Family Medical History: Deep Vein Thrombosis (DVT) Father Family Medical History: Cancer Additional Family Medical History / Comment(s): Father had poss colon and lung cancer and at age 73yrs. Mother Family Medical History: Coronary Artery Disease (CAD), Diabetes Mellitus, Deep Vein Thrombosis (DVT), Hypertension Additional Family Medical History / Comment(s): Mother is alive and 73 yrs old. General Exam Limitations: no limitations General appearance: alert, in no apparent distress Head exam: Present: atraumatic, normocephalic Eye exam: Present: normal appearance, PERRL, EOMI ENT exam: Present: normal exam Neck exam: Present: normal inspection. Absent: tenderness, meningismus Respiratory exam: Present: normal lung sounds bilaterally. Absent: respiratory distress, wheezes Cardiovascular Exam: Present: regular rate, normal rhythm GI/Abdominal exam: Present: soft. Absent: distended, tenderness, guarding Extremities exam: Present: normal inspection, normal capillary refill. Absent: pedal edema, calf tenderness Neurological exam: Present: alert, oriented X3, CN II-XII intact, normal gait, other (No ataxia). Absent: motor sensory deficit Psychiatric exam: Present: normal affect, normal mood Skin exam: Present: warm, dry, intact. Absent: cyanosis, diaphoretic Course Vital Signs 05/02/18 05/03/18 23:24 00:23 Temperature 98.3 F Pulse Rate 60 71 Respiratory 18 20 Rate Blood Pressure 112/61 104/66 O2 Sat by Pulse 99 99 Oximetry EKG Findings - EKG Comments: EKG Findings:: EKG: Sinus bradycardia, rate of 58, CA interval 182, QRS duration 80, QTC 426, no ST segment elevation, T-wave inversion in lead 3. No significant change compared to prior Medical Decision Making - Medical Decision Making 47-year-old female presenting with 4 days of migraine headache and 4 hours of left-sided chest pain. Patient's migraine is associated with left-sided facial numbness. This was present on previous inpatient evaluation of headache with facial numbness. Patient states his symptoms are the same as they were with previous episode. Medical record reviewed including MRI from previous headache with left-sided weakness and numbness. MRI at that time was negative. Neurology no follow-up is reasonable that this patient had a hemiplegic migraine. Symptoms today are similar although less severe, no weakness, headache with facial numbness. Regarding patient's chest pain, EKG is unchanged, no definitive signs of ischemia, pain had been present for 4-5 hours prior to arrival and troponin is negative. Patient is reevaluated after headache cocktail. She is feeling much better, numbness improved. Patient will follow-up with both her primary care physician and neurology as an outpatient. - Lab Data Result diagrams: 05/02/18 23:35 05/02/18 23:35 Lab Results 05/02/18 05/02/18 05/02/18 Range/Units 23:35 23:35 23:35 WBC 12.0 H (3.8-10.6) k/uL RBC 4.72 (3.80-5.40) m/uL Hgb 10.0 L (11.4-16.0) gm/dL Hct 32.7 L (34.0-46.0) % MCV 69.3 L D (80.0-100.0) fL MCH 21.3 L (25.0-35.0) pg MCHC 30.7 L (31.0-37.0) g/dL RDW 16.1 H (11.5-15.5) % Plt Count 401 (150-450) k/uL Neutrophils % 54 % Lymphocytes % 35 % Monocytes % 6 % Eosinophils % 2 % Basophils % 1 % Neutrophils # 6.5 (1.3-7.7) k/uL Lymphocytes # 4.2 (1.0-4.8) k/uL Monocytes # 0.7 (0-1.0) k/uL Eosinophils # 0.3 (0-0.7) k/uL Basophils # 0.1 (0-0.2) k/uL Hypochromasia Marked Anisocytosis Slight Microcytosis Marked PT (9.0-12.0) sec INR (<1.2) APTT (22.0-30.0) sec Sodium 139 (137-145) mmol/L Potassium 3.5 (3.5-5.1) mmol/L Chloride 101 (98-107) mmol/L Carbon Dioxide 25 (22-30) mmol/L Anion Gap 13 mmol/L BUN 18 H (7-17) mg/dL Creatinine 0.77 (0.52-1.04) mg/dL Est GFR (CKD-EPI)AfAm >90 (>60 ml/min/1.73 sqM) Est GFR (CKD-EPI)NonAf >90 (>60 ml/min/1.73 sqM) Glucose 103 H (74-99) mg/dL Calcium 9.3 (8.4-10.2) mg/dL Magnesium 1.6 (1.6-2.3) mg/dL Total Bilirubin 0.5 (0.2-1.3) mg/dL AST 32 (14-36) U/L ALT 32 (9-52) U/L Alkaline Phosphatase 110 (38-126) U/L Total Creatine Kinase 56 (30-135) U/L CK-MB (CK-2) 0.4 (0.0-2.4) ng/mL CK-MB (CK-2) Rel Index 0.7 Troponin I <0.012 (0.000-0.034) ng/mL Total Protein 7.8 (6.3-8.2) g/dL Albumin 4.5 (3.5-5.0) g/dL 05/02/18 Range/Units 23:35 WBC (3.8-10.6) k/uL RBC (3.80-5.40) m/uL Hgb (11.4-16.0) gm/dL Hct (34.0-46.0) % MCV (80.0-100.0) fL MCH (25.0-35.0) pg MCHC (31.0-37.0) g/dL RDW (11.5-15.5) % Plt Count (150-450) k/uL Neutrophils % % Lymphocytes % % Monocytes % % Eosinophils % % Basophils % % Neutrophils # (1.3-7.7) k/uL Lymphocytes # (1.0-4.8) k/uL Monocytes # (0-1.0) k/uL Eosinophils # (0-0.7) k/uL Basophils # (0-0.2) k/uL Hypochromasia Anisocytosis Microcytosis PT 10.1 (9.0-12.0) sec INR 1.0 (<1.2) APTT 22.7 (22.0-30.0) sec Sodium (137-145) mmol/L Potassium (3.5-5.1) mmol/L Chloride (98-107) mmol/L Carbon Dioxide (22-30) mmol/L Anion Gap mmol/L BUN (7-17) mg/dL Creatinine (0.52-1.04) mg/dL Est GFR (CKD-EPI)AfAm (>60 ml/min/1.73 sqM) Est GFR (CKD-EPI)NonAf (>60 ml/min/1.73 sqM) Glucose (74-99) mg/dL Calcium (8.4-10.2) mg/dL Magnesium (1.6-2.3) mg/dL Total Bilirubin (0.2-1.3) mg/dL AST (14-36) U/L ALT (9-52) U/L Alkaline Phosphatase (38-126) U/L Total Creatine Kinase (30-135) U/L CK-MB (CK-2) (0.0-2.4) ng/mL CK-MB (CK-2) Rel Index Troponin I (0.000-0.034) ng/mL Total Protein (6.3-8.2) g/dL Albumin (3.5-5.0) g/dL Disposition Clinical Impression: Anemia, Chest pain, Migraine Disposition: HOME SELF-CARE Condition: Good Is patient prescribed a controlled substance at d/c from ED?: No Referrals: Macy Knight MD [Primary Care Provider] - 1-2 days Shara Adams MD [STAFF PHYSICIAN] - 1-2 days Time of Disposition: 00:53
[2018-05-03 00:08] LABS: Anisocytosis Slight; Basophils # (A) 0.1 k/uL (0-0.2); Basophils % (A) 1 %; Eosinophils # (A) 0.3 k/uL (0-0.7); Eosinophils % (A) 2 %; HCT 32.7 % (34.0-46.0); Hypochromasia Marked; Lymphocytes # (A) 4.2 k/uL (1.0-4.8); Lymphocytes % (A) 35 %; MCH 21.3 pg (25.0-35.0); MCHC 30.7 g/dL (31.0-37.0); Mean Platelet Volume 7.2; Microcytosis Marked; Monocytes # (A) 0.7 k/uL (0-1.0); Monocytes % (A) 6 %; Neutrophils # (A) 6.5 k/uL (1.3-7.7); Neutrophils % (A) 54 %; Platelet Count 401 k/uL (150-450); RBC 4.72 m/uL (3.80-5.40); RDW 16.1 % (11.5-15.5)
[2018-05-03 00:12] LABS: MCV 69.3 fL (80.0-100.0)
[2018-05-03 00:17] LABS: ALT 32 U/L (9-52); AST 32 U/L (14-36); Albumin 4.5 g/dL (3.5-5.0); Alkaline Phosphatase 110 U/L (38-126); Anion Gap 13 mmol/L; Blood Urea Nitrogen 18 mg/dL (7-17); Calcium 9.3 mg/dL (8.4-10.2); Carbon Dioxide 25 mmol/L (22-30); Chloride 101 mmol/L (98-107); Glucose 103 mg/dL (74-99); Magnesium 1.6 mg/dL (1.6-2.3); Potassium 3.5 mmol/L (3.5-5.1); Sodium 139 mmol/L (137-145); Total Bilirubin 0.5 mg/dL (0.2-1.3); Total Protein 7.8 g/dL (6.3-8.2)
--- NOTE | 2018-05-03 00:17 | CT ---
EXAMINATION TYPE: CT brain wo con DATE OF EXAM: 05/03/2018 COMPARISON: 03/12/2018 HISTORY: migraine CT DLP: 925.20 mGycm. Automated Exposure Control for Dose Reduction was Utilized. TECHNIQUE: CT scan of the head is performed without contrast. Ventricles and sulci appear normal. There is no mass effect nor midline shift and there is no sign of intracranial hemorrhage. The calvarium is intact. IMPRESSION: Negative CT scan of the brain. No change.
[2018-05-03 00:20] LABS: Partial Thromboplastin Time 22.7 sec (22.0-30.0); Prothrombin Time 10.1 sec (9.0-12.0)
--- NOTE | 2018-05-03 00:22 | XR ---
EXAMINATION TYPE: XR chest 2V DATE OF EXAM: 05/03/2018 COMPARISON: 03/12/2018 HISTORY: Chest pain TECHNIQUE: Frontal and lateral views of the chest are obtained. FINDINGS: Heart and mediastinum are normal. Lungs are clear. Diaphragm is normal. Bony thorax appear s normal. There are chest leads. IMPRESSION: Normal chest. No change.
[2018-05-03 00:25] VITALS: RESP 20
[2018-05-03 00:27] LABS: Creatine Kinase 56 U/L (30-135)
[2018-05-03 00:40] LABS: Creatine Kinase MB 0.4 ng/mL (0.0-2.4); Troponin I <0.012 ng/mL (0.000-0.034)
[2018-05-03 01:15] VITALS: BP 93/43; PULSE 81
== END 2018-05-03 01:15 | disposition home or self-care (01) ==
LOC: EC 23:16
DX: G43.909 Migraine, unspecified, not intractable, without status migrainosus (principal); R07.9 Chest pain, unspecified; D64.9 Anemia, unspecified; M54.2 Cervicalgia; R20.0 Anesthesia of skin; E11.40 Type 2 diabetes mellitus with diabetic neuropathy, unspecified; I10 Essential (primary) hypertension; Z85.41 Personal history of malignant neoplasm of cervix uteri; F32.9 Major depressive disorder, single episode, unspecified; F41.9 Anxiety disorder, unspecified; Z86.73 Personal history of transient ischemic attack (TIA), and cerebral infarction without residual deficits; Z79.84 Long term (current) use of oral hypoglycemic drugs; Z79.899 Other long term (current) drug therapy; Z88.5 Allergy status to narcotic agent; Z91.013 Allergy to seafood; Z88.2 Allergy status to sulfonamides; Z91.018 Allergy to other foods; Z91.041 Radiographic dye allergy status; Z88.8 Allergy status to other drugs, medicaments and biological substances; Z91.010 Allergy to peanuts
CPT/HCPCS: 36415; 93005; 80053; 82550; 82553; 83735; 84484; 85025; 85610; 85730; 71046; 70450; 99285; 96374; 96375 ×2; 96361; J1200; J1100; J2765

== ENCOUNTER 2018-06-11 22:51 | Emergency (ER) | payer OTHER ==
[2018-06-11 23:00] VITALS: RESP 16; TEMP 99.1
[2018-06-11] MEDS ORDERED: KETOROLAC 30 MG/ML 1 ML VIAL IVP STA (23:20)
[2018-06-11] MEDS ORDERED: SODIUM CHLORIDE 0.9% 1,000 ML IV STA (23:20)
[2018-06-11] MEDS ORDERED: ONDANSETRON 4 MG/2 ML VIAL IVP STA (23:20)
[2018-06-12] MEDS ORDERED: diphenhydrAMINE 50 MG/ML 1 ML VIAL IVP STA (00:09)
[2018-06-12] MEDS ORDERED: FAMOTIDINE 20 MG/2 ML VIAL IV STA (00:09)
[2018-06-12] MEDS ORDERED: methylPREDNISolone SOD SUCCI 125 MG/2 ML VIAL IV STA (00:09)
[2018-06-12 00:19] LABS: Anisocytosis Slight; Appearance,Urine Clear (Clear); Basophils # (A) 0.1 k/uL (0-0.2); Basophils % (A) 1 %; Bilirubin,Urine Negative (Negative); Blood,Urine Negative (Negative); Color,Urine Colorless; Eosinophils # (A) 0.2 k/uL (0-0.7); Eosinophils % (A) 2 %; Glucose,Urine (UA) Negative (Negative); HCT 30.8 % (34.0-46.0); HGB 9.3 gm/dL (11.4-16.0); Hypochromasia Marked; Ketones,Urine Negative (Negative); Leukocyte Esterase,Urine Negative (Negative); Lymphocytes % (A) 40 %; MCH 20.3 pg (25.0-35.0); MCV 67.7 fL (80.0-100.0); Mean Platelet Volume 7.2; Microcytosis Marked; Monocytes # (A) 0.5 k/uL (0-1.0); Monocytes % (A) 5 %; Neutrophils # (A) 5.2 k/uL (1.3-7.7); Neutrophils % (A) 51 %; Nitrite,Urine Negative (Negative); PH, Urine 5.5 (5.0-8.0); Platelet Count 334 k/uL (150-450); Protein,Urine Negative (Negative); RBC 4.56 m/uL (3.80-5.40); RDW 16.4 % (11.5-15.5); Specific Gravity,Urine 1.003 (1.001-1.035); Urobilinogen,Urine <2.0 mg/dL (<2.0); WBC 10.1 k/uL (3.8-10.6)
[2018-06-12 00:28] LABS: Amylase 49 U/L (30-110); Anion Gap 10 mmol/L; Carbon Dioxide 23 mmol/L (22-30); Chloride 105 mmol/L (98-107); Glucose 110 mg/dL (74-99); Lipase 94 U/L (23-300); Sodium 138 mmol/L (137-145); Total Bilirubin 0.7 mg/dL (0.2-1.3)
[2018-06-12 00:32] LABS: Blood Urea Nitrogen 17 mg/dL (7-17); Potassium 4.7 mmol/L (3.5-5.1); Total Protein 7.5 g/dL (6.3-8.2)
[2018-06-12 00:33] LABS: ALT 42 U/L (9-52); AST 77 U/L (14-36); Albumin 4.3 g/dL (3.5-5.0); Alkaline Phosphatase 87 U/L (38-126)
--- NOTE | 2018-06-12 00:40 | ED ---
General Adult HPI - General Source: patient, EMS Mode of arrival: EMS Limitations: no limitations <Colby Shirley P - Last Filed: 06/12/18 02:32> <Padma Lay P - Last Filed: 06/12/18 03:57> - General Chief complaint: Abdominal Pain Stated complaint: abd pain Time Seen by Provider: 06/11/18 22:54 - History of Present Illness Initial comments: 47-year-old female with a past medical history of diabetes, TIA, GERD, pancreatitis IBS, fibromyalgia presents to the emergency department for a chief complaint of abdominal pain. Patient states his pain has been going on for about 6 hours. She states it is in the left upper quadrant. Patient states she has had this pain on and off chronically but it did worsen today. Patient also admits to vomiting that started around 7 hours ago after she ate dinner. Patient mentioned she did have diarrhea yesterday but that has since resolved. She states she is passing gas without difficulty. She last had a bowel movement earlier tonight and it was soft and of normal consistency. She denies any fevers. Patient has a history of a cholecystectomy, appendectomy, gastric bypass years ago. Patient states a year ago she had this similar pain and was diagnosed with intussusception or volvulus. She states the pain is similar today. Patient has no other complaints at this time including shortness of breath, chest pain, headache, or visual changes. (Colby Shirley) - Related Data Home Medications Medication Instructions Recorded Confirmed Furosemide [Lasix] 20 mg PO BID 09/19/16 06/11/18 Ondansetron [Zofran] 4 mg PO BID PRN 08/19/17 06/11/18 LORazepam [Ativan] 0.5 mg PO DAILY PRN 09/27/17 06/11/18 buPROPion HCL [Wellbutrin XL] 300 mg PO BID 09/27/17 06/11/18 metFORMIN HCL [Glucophage] 250 mg PO HS 09/27/17 06/11/18 Escitalopram [Lexapro] 20 mg PO HS 01/15/18 06/11/18 Tamsulosin HCl [Flomax] 0.4 mg PO HS 01/15/18 06/11/18 Rizatriptan Benzoate [Maxalt K[employer] PR[employer]ATOR] 10 mg PO DAILY PRN 03/06/18 06/11/18 Zolpidem Tartrate [Ambien] 10 mg PO HS 03/06/18 06/11/18 Ketorolac [Toradol] 10 mg PO BID PRN 05/02/18 06/11/18 Melatonin 10 mg PO HS 06/11/18 06/11/18 Previous Rx's Medication Instructions Recorded Famotidine [Pepcid] 20 mg PO BID 7 Days #10 tablet 06/12/18 Allergies Allergy/AdvReac Type Severity Reaction Status Date / Time oxycodone [From Percocet] Allergy Unknown Swelling; Verified 06/11/18 23:21 (WAS ABLE TO TAKE ALONG WITH BENADRYL) apricot Allergy Dyspnea Verified 06/11/18 23:21 barium sulfate Allergy Anaphylaxis Verified 06/11/18 23:21 [From Readi-Cat] codeine Allergy Anaphylaxis Verified 06/11/18 23:21 hydrocodone [From Lortab] Allergy Swelling Verified 06/11/18 23:21 Iodinated Contrast- Oral and Allergy Anaphylaxis Verified 06/11/18 23:21 IV Dye iodine Allergy Rash/Hives Verified 06/11/18 23:21 morphine Allergy Rash/Hives Verified 06/11/18 23:21 peach Allergy Swelling Verified 06/11/18 23:21 peanut Allergy Swelling Verified 06/11/18 23:21 peanut oil Allergy Anaphylaxis Verified 06/11/18 23:21 shellfish derived [Shellfish] Allergy Anaphylaxis Verified 06/11/18 23:21 strawberry Allergy Anaphylaxis Verified 06/11/18 23:21 sucralfate [From Carafate] Allergy Swelling Verified 06/11/18 23:21 Sulfa (Sulfonamide Allergy Anaphylaxis Verified 06/11/18 23:21 Antibiotics) sulfamethoxazole Allergy Anaphylaxis Verified 06/11/18 23:21 [From Bactrim] tree nut [Nut] Allergy Swelling Verified 06/11/18 23:21 trimethoprim [From Bactrim] Allergy Anaphylaxis Verified 06/11/18 23:21 Review of Systems ROS Other: All systems not noted in ROS Statement are negative. <Colby Shirley P - Last Filed: 06/12/18 02:32> ROS Other: All systems not noted in ROS Statement are negative. <Padma Lay P - Last Filed: 06/12/18 03:57> ROS Statement: Those systems with pertinent positive or pertinent negative responses have been documented in the HPI. Past Medical History Past Medical History: Asthma, CVA/TIA, Diabetes Mellitus, GERD/Reflux, Hyperlipidemia, Hypertension, Osteoarthritis (OA), Pneumonia Additional Past Medical History / Comment(s): "no longer takes meds for bp "NIDDM. past tia 2015. diabetic neuropathy eli feet, migraines, cervical disc disease, DDD, eli tinnitis, arthiritis bilateral shoulders, poss fibromyalgia- pt in process of being diagnosed, seasonal allergies, IBS, HX R arm fx yrs ago , R ovarian cyst, hiatal hernia, UTIs, urinary calculus, pancreatitis x 2, stomach ulcer. pt stated she had a pne vaccine approx 2 years ago,promotion writer unable to verify date at time of this this admit. History of Any Multi-Drug Resistant Organisms: C-DIFF Date of last positivie culture/infection: 2012 MDRO Source:: stool Past Surgical History: Appendectomy, Bariatric Surgery, Cholecystectomy, Tonsillectomy Additional Past Surgical History / Comment(s): 2010 feilx-en-Y, fistula repair 2011, 2011 gastric bypass revision, bowel resection, lap gastrojejunostomy anastamosis revision, EGD and colonoscopy, cone bx-cervical cancer remove with cryo, L fallopian tube removed due to cyst, picc line in and out, CERVICAL FUSION 12/21/16. Past Anesthesia/Blood Transfusion Reactions: Family History of Problems w/ Anesthesia, Motion Sickness, Postoperative Nausea & Vomiting (PONV) Additional Past Anesthesia/Blood Transfusion Reaction / Comment(s): Pt states she has never recieved blood. FAMILY HX PONV. Past Psychological History: Anxiety, Depression Smoking Status: Never smoker Past Alcohol Use History: None Reported Past Drug Use History: None Reported - Past Family History Brother(s) Family Medical History: Deep Vein Thrombosis (DVT) Father Family Medical History: Cancer Additional Family Medical History / Comment(s): Father had poss colon and lung cancer and at age 73yrs. Mother Family Medical History: Coronary Artery Disease (CAD), Diabetes Mellitus, Deep Vein Thrombosis (DVT), Hypertension Additional Family Medical History / Comment(s): Mother is alive and 73 yrs old. <Colby Shirley P - Last Filed: 06/12/18 02:32> General Exam Limitations: no limitations General appearance: alert, in no apparent distress Head exam: Present: atraumatic, normocephalic, normal inspection Eye exam: Present: normal appearance, PERRL, EOMI. Absent: scleral icterus, conjunctival injection, periorbital swelling ENT exam: Present: normal exam, mucous membranes moist Neck exam: Present: normal inspection, full ROM. Absent: tenderness, meningismus, lymphadenopathy Respiratory exam: Present: normal lung sounds bilaterally. Absent: respiratory distress, wheezes, rales, rhonchi, stridor Cardiovascular Exam: Present: regular rate, normal rhythm, normal heart sounds. Absent: systolic murmur, diastolic murmur, rubs, gallop, clicks GI/Abdominal exam: Present: soft, tenderness (Mild generalized tenderness worse in the left upper quadrant, mild guarding), guarding (mild guarding in upper abdomen), normal bowel sounds. Absent: distended, rebound, rigid Neurological exam: Present: alert, oriented X3, CN II-XII intact Psychiatric exam: Present: normal affect, normal mood <Colby Shirley P - Last Filed: 06/12/18 02:32> Vital Signs 06/11/18 06/11/18 06/11/18 22:52 23:08 23:30 Temperature 99.1 F Pulse Rate 72 68 71 Respiratory 16 Rate Blood Pressure 109/75 109/75 96/67 O2 Sat by Pulse 99 97 97 Oximetry 06/12/18 06/12/18 06/12/18 00:00 00:30 01:00 Temperature Pulse Rate 71 70 70 Respiratory 16 Rate Blood Pressure 96/67 104/74 104/74 O2 Sat by Pulse 97 97 99 Oximetry 06/12/18 01:38 Temperature Pulse Rate 69 Respiratory 16 Rate Blood Pressure 109/77 O2 Sat by Pulse 100 Oximetry Medical Decision Making - Lab Data Result diagrams: 06/11/18 23:55 06/11/18 23:55 <Colby Shirley P - Last Filed: 06/12/18 02:32> - Lab Data Result diagrams: 06/11/18 23:55 06/11/18 23:55 <Padma Lay P - Last Filed: 06/12/18 03:57> - Medical Decision Making 47-year-old female well-known to this emergency department for similar complaints presents for a chief complaint of abdominal pain in the left upper quadrant times one day. This pain is chronic but is worsened today. On exam patient does have tenderness in the left upper quadrant and epigastric area. CBC shows a hemoglobin of 9.3 which is consistent with patient's past hemoglobin levels. Amylase and lipase unremarkable. CMP unremarkable. CT shows slight enlargement of proximal jejunum at surgery site of gastrojejunostomy, which is doubtful for any clinical significance. Patient was given Dilaudid and Toradol in the emergency department. On reevaluation patient states that has only resolved somewhat. Discussed with patient that this pain could be related to adhesions. I will also give patient Pepcid as this pain does extend into the epigastric region. Patient will follow up with GI in the next 1-2 days. She will return to the emergency Department if she has any worsening symptoms. (Colby Shirley) I was available for consultation in the emergency department. The history and physical exam were done by the midlevel provider. I was consulted for this patient's care. I reviewed the case with the midlevel provider and based on their presentation of the patient, I agree with the assessment, medical decision making and plan of care as documented. (Padma Lay) - Lab Data Lab Results 06/11/18 06/11/18 06/11/18 Range/Units 23:55 23:55 23:55 WBC 10.1 (3.8-10.6) k/uL RBC 4.56 (3.80-5.40) m/uL Hgb 9.3 L (11.4-16.0) gm/dL Hct 30.8 L (34.0-46.0) % MCV 67.7 L (80.0-100.0) fL MCH 20.3 L (25.0-35.0) pg MCHC 30.0 L (31.0-37.0) g/dL RDW 16.4 H (11.5-15.5) % Plt Count 334 (150-450) k/uL Neutrophils % 51 % Lymphocytes % 40 % Monocytes % 5 % Eosinophils % 2 % Basophils % 1 % Neutrophils # 5.2 (1.3-7.7) k/uL Lymphocytes # 4.0 (1.0-4.8) k/uL Monocytes # 0.5 (0-1.0) k/uL Eosinophils # 0.2 (0-0.7) k/uL Basophils # 0.1 (0-0.2) k/uL Hypochromasia Marked Anisocytosis Slight Microcytosis Marked Sodium 138 (137-145) mmol/L Potassium 4.7 (3.5-5.1) mmol/L Chloride 105 (98-107) mmol/L Carbon Dioxide 23 (22-30) mmol/L Anion Gap 10 mmol/L BUN 17 (7-17) mg/dL Creatinine 0.72 (0.52-1.04) mg/dL Est GFR (CKD-EPI)AfAm >90 (>60 ml/min/1.73 sqM) Est GFR (CKD-EPI)NonAf >90 (>60 ml/min/1.73 sqM) Glucose 110 H (74-99) mg/dL Calcium 9.0 (8.4-10.2) mg/dL Total Bilirubin 0.7 (0.2-1.3) mg/dL AST 77 H (14-36) U/L ALT 42 (9-52) U/L Alkaline Phosphatase 87 (38-126) U/L Total Protein 7.5 (6.3-8.2) g/dL Albumin 4.3 (3.5-5.0) g/dL Amylase 49 (30-110) U/L Lipase 94 (23-300) U/L Urine Color Colorless Urine Appearance Clear (Clear) Urine pH 5.5 (5.0-8.0) Ur Specific [place] 1.003 (1.001-1.035) Urine Protein Negative (Negative) Urine Glucose (UA) Negative (Negative) Urine Ketones Negative (Negative) Urine Blood Negative (Negative) Urine Nitrite Negative (Negative) Urine Bilirubin Negative (Negative) Urine Urobilinogen <2.0 (<2.0) mg/dL Ur Leukocyte Esterase Negative (Negative) Disposition Is patient prescribed a controlled substance at d/c from ED?: No Time of Disposition: 02:25 <Colby Shirley P - Last Filed: 06/12/18 02:32> <Padma Lay P - Last Filed: 06/12/18 03:57> Clinical Impression: Abdominal pain Disposition: HOME SELF-CARE Condition: Good Instructions: Abdominal Pain (ED) Additional Instructions: Please follow-up with your GI specialist in 1-2 days. Please take Tylenol for pain. Take Pepcid as directed. Please return immediately to the emergency department if you have any worsening symptoms. Prescriptions: Famotidine [Pepcid] 20 mg PO BID 7 Days #10 tablet Referrals: Macy Knight MD [Primary Care Provider] - 1-2 days Saul Castillo MD [Medical Doctor] - 1-2 days
--- NOTE | 2018-06-12 01:26 | CT ---
EXAMINATION TYPE: CT abdomen pelvis w con DATE OF EXAM: 06/12/2018 COMPARISON: 03/06/2018 HISTORY: abdominal pain left upper quadrant pain CT DLP: 1122.8 mGycm Automated exposure control for dose reduction was used. TECHNIQUE: Helical acquisition of images was performed from the lung bases through the pelvis. CONTRAST: Performed without Oral Contrast and with IV Contrast, patient injected with 100mL mL of Isovue 300. FINDINGS: Lung bases are clear. There is no pleural effusion. Heart size is normal. There is no pericardial eff usion. There are numerous surgical clips from bariatric surgery. There are clips from cholecystectomy . Bile ducts are not dilated. Liver spleen pancreas appear normal. There is no adrenal mass. Kidneys show satisfactory contrast opacification. There is no hydronephrosis. There is no retroperitoneal klever nopathy. Bladder distends smoothly. There is no inguinal hernia. There is no free fluid in the pelvis . Uterus is anteverted. There is no free air. There are clips apparently from appendectomy. I see no intestinal wall thickening. There are no dilated loops. Lumbar spine is intact. Bony pelvis appears intact. Abdominal soft tissues are unremarkable. IMPRESSION: PREVIOUS SURGERY. IN RETROSPECT THERE IS SLIGHT ENLARGEMENT OF THE PROXIMAL JEJUNUM TO 3.6 CM AT THE SURGERY SITE OF THE GASTROJEJUNOSTOMY. THIS NOW MEASURES 3 CM. THIS IS OF DOUBTFUL CLINICAL SIGNIFICA NCE. I DO NOT SEE A DEFINITE CAUSE FOR LEFT UPPER QUADRANT PAIN.
[2018-06-12 01:40] VITALS: BP 109/77; PULSE 69
[2018-06-12] MEDS ORDERED: HYDROmorphone 1 MG/ML 1 ML SYRINGE IVP STA (01:49)
== END 2018-06-12 02:48 | disposition home or self-care (01) ==
LOC: EC 22:51
DX: R10.12 Left upper quadrant pain (principal); R11.10 Vomiting, unspecified; R19.7 Diarrhea, unspecified; K21.9 Gastro-esophageal reflux disease without esophagitis; I10 Essential (primary) hypertension; M19.90 Unspecified osteoarthritis, unspecified site; E11.40 Type 2 diabetes mellitus with diabetic neuropathy, unspecified; F41.9 Anxiety disorder, unspecified; F32.9 Major depressive disorder, single episode, unspecified; M79.7 Fibromyalgia; Z86.73 Personal history of transient ischemic attack (TIA), and cerebral infarction without residual deficits; Z87.42 Personal history of other diseases of the female genital tract; Z87.19 Personal history of other diseases of the digestive system; Z87.442 Personal history of urinary calculi; Z90.49 Acquired absence of other specified parts of digestive tract; Z98.84 Bariatric surgery status; Z98.1 Arthrodesis status; Z98.890 Other specified postprocedural states; Z79.84 Long term (current) use of oral hypoglycemic drugs; Z79.899 Other long term (current) drug therapy; Z88.1 Allergy status to other antibiotic agents; Z88.2 Allergy status to sulfonamides; Z88.5 Allergy status to narcotic agent; Z88.8 Allergy status to other drugs, medicaments and biological substances; Z91.010 Allergy to peanuts; Z91.013 Allergy to seafood; Z91.018 Allergy to other foods; Z91.041 Radiographic dye allergy status
CPT/HCPCS: 99285; 96374; 96375 ×5; J2405; J1885; 36415; 74177; 80053; 81003; 82150; 83690; 85025

== ENCOUNTER 2018-06-13 14:42 | Emergency (ER) | payer OTHER ==
[2018-06-13] MEDS ORDERED: SODIUM CHLORIDE 0.9% 1,000 ML IV STA ×2 (15:33)
[2018-06-13] MEDS ORDERED: ONDANSETRON ODT 8 MG TAB.RAPDIS PO STA (15:33)
[2018-06-13] MEDS ORDERED: PANTOPRAZOLE 40 MG/10 ML VIAL IVP STA (15:33)
[2018-06-13] MEDS ORDERED: HYDROmorphone 1 MG/ML 1 ML SYRINGE IVP STA ×2 (15:33→17:51)
[2018-06-13] MEDS ORDERED: KETOROLAC 30 MG/ML 1 ML VIAL IVP STA (15:33)
--- NOTE | 2018-06-13 15:40 | ED ---
Abdominal Pain HPI - General Chief Complaint: Abdominal Pain Stated Complaint: Abd pain Time Seen by Provider: 06/13/18 15:12 Source: patient, EMS, RN notes reviewed, old records reviewed Mode of arrival: EMS Limitations: no limitations - History of Present Illness Initial Comments: 47-year-old female with a history of diabetes today. Pancreatitis, presents department with lower left-sided abdominal pain. Patient states his past 2 days. Patient reports that it seems like it's spasming. Patient reports she did have some diarrhea and has had multiple vomiting episodes. Patient stated emergency department one day ago for same complaint. She had a CT which did show enlargement of the jejunum and surgical site of the jejunostomy which is doubtful of any clinical significance. - Related Data Home Medications Medication Instructions Recorded Confirmed Furosemide [Lasix] 20 mg PO BID 09/19/16 06/13/18 LORazepam [Ativan] 0.5 mg PO TID PRN 09/27/17 06/13/18 buPROPion HCL [Wellbutrin XL] 300 mg PO DAILY 09/27/17 06/13/18 metFORMIN HCL [Glucophage] 500 mg PO DAILY 09/27/17 06/13/18 Escitalopram [Lexapro] 20 mg PO DAILY 01/15/18 06/13/18 Tamsulosin HCl [Flomax] 0.4 mg PO HS 01/15/18 06/13/18 Rizatriptan Benzoate [Maxalt ACCOUNT SERVICES COORDINATOR] 10 mg PO DAILY PRN 03/06/18 06/13/18 Zolpidem Tartrate [Ambien] 10 mg PO HS PRN 03/06/18 06/13/18 Aspirin 325 mg PO DAILY 06/13/18 06/13/18 Beclomethasone Dipropionate [Qvar 2 puff INHALATION RT-BID 06/13/18 06/13/18 80 mcg] Biotin 300 mcg PO DAILY 06/13/18 06/13/18 Butalb/APAP/Caff 50-325-40Mg 1 tab PO Q4H PRN 06/13/18 06/13/18 [Fioricet 50-325-40] Cetirizine HCl [Zyrtec] 10 mg PO DAILY 06/13/18 06/13/18 Cholecalciferol (Vitamin D3) 2,000 unit PO DAILY 06/13/18 06/13/18 [Vitamin D3] Mirtazapine [Remeron] 15 mg PO HS 06/13/18 06/13/18 Omeprazole 20 mg PO DAILY 06/13/18 06/13/18 Propranolol HCl [Inderal LA] 80 mg PO HS 06/13/18 06/13/18 SUMAtriptan SUCCINATE [Sumavel 6 mg SQ Q2HR PRN 06/13/18 06/13/18 Dosepro] Simvastatin [Zocor] 40 mg PO HS 06/13/18 06/13/18 Previous Rx's Medication Instructions Recorded Simethicone [Gas-X] 125 mg PO DAILY #20 capsule 06/13/18 Sucralfate [Carafate] 1 gm PO ACHS #20 tablet 06/13/18 Allergies Allergy/AdvReac Type Severity Reaction Status Date / Time oxycodone [From Percocet] Allergy Unknown Swelling; Verified 06/13/18 14:44 (WAS ABLE TO TAKE ALONG WITH BENADRYL) apricot Allergy Dyspnea Verified 06/13/18 14:44 barium sulfate Allergy Anaphylaxis Verified 06/13/18 14:44 [From Readi-Cat] codeine Allergy Anaphylaxis Verified 06/13/18 14:44 hydrocodone [From Lortab] Allergy Swelling Verified 06/13/18 14:44 Iodinated Contrast- Oral and Allergy Anaphylaxis Verified 06/13/18 14:44 IV Dye iodine Allergy Rash/Hives Verified 06/13/18 14:44 morphine Allergy Rash/Hives Verified 06/13/18 14:44 peach Allergy Swelling Verified 06/13/18 14:44 peanut Allergy Swelling Verified 06/13/18 14:44 peanut oil Allergy Anaphylaxis Verified 06/13/18 14:44 shellfish derived [Shellfish] Allergy Anaphylaxis Verified 06/13/18 14:44 strawberry Allergy Anaphylaxis Verified 06/13/18 14:44 sucralfate [From Carafate] Allergy Swelling Verified 06/13/18 14:44 Sulfa (Sulfonamide Allergy Anaphylaxis Verified 06/13/18 14:44 Antibiotics) sulfamethoxazole Allergy Anaphylaxis Verified 06/13/18 14:44 [From Bactrim] tree nut [Nut] Allergy Swelling Verified 06/13/18 14:44 trimethoprim [From Bactrim] Allergy Anaphylaxis Verified 06/13/18 14:44 Review of Systems ROS Statement: Those systems with pertinent positive or pertinent negative responses have been documented in the HPI. ROS Other: All systems not noted in ROS Statement are negative. Past Medical History Past Medical History: Asthma, CVA/TIA, Diabetes Mellitus, GERD/Reflux, Hyperlipidemia, Hypertension, Osteoarthritis (OA), Pneumonia Additional Past Medical History / Comment(s): "no longer takes meds for bp "NIDDM. past tia 2015. diabetic neuropathy eli feet, migraines, cervical disc disease, DDD, eli tinnitis, arthiritis bilateral shoulders, poss fibromyalgia- pt in process of being diagnosed, seasonal allergies, IBS, HX R arm fx yrs ago , R ovarian cyst, hiatal hernia, UTIs, urinary calculus, pancreatitis x 2, stomach ulcer. pt stated she had a pne vaccine approx 2 years ago,va underwriter unable to verify date at time of this this admit. History of Any Multi-Drug Resistant Organisms: C-DIFF Date of last positivie culture/infection: 2012 MDRO Source:: stool Past Surgical History: Appendectomy, Bariatric Surgery, Cholecystectomy, Tonsillectomy Additional Past Surgical History / Comment(s): 2010 felix-en-Y, fistula repair 2011, 2011 gastric bypass revision, bowel resection, lap gastrojejunostomy anastamosis revision, EGD and colonoscopy, cone bx-cervical cancer remove with cryo, L fallopian tube removed due to cyst, picc line in and out, CERVICAL FUSION 12/21/16. Past Anesthesia/Blood Transfusion Reactions: Family History of Problems w/ Anesthesia, Motion Sickness, Postoperative Nausea & Vomiting (PONV) Additional Past Anesthesia/Blood Transfusion Reaction / Comment(s): Pt states she has never recieved blood. FAMILY HX PONV. Past Psychological History: Anxiety, Depression Smoking Status: Never smoker Past Alcohol Use History: None Reported Past Drug Use History: None Reported - Past Family History Brother(s) Family Medical History: Deep Vein Thrombosis (DVT) Father Family Medical History: Cancer Additional Family Medical History / Comment(s): Father had poss colon and lung cancer and at age 73yrs. Mother Family Medical History: Coronary Artery Disease (CAD), Diabetes Mellitus, Deep Vein Thrombosis (DVT), Hypertension Additional Family Medical History / Comment(s): Mother is alive and 73 yrs old. General Exam - General Exam Comments Initial Comments: Is a 47-year-old female. Alert and oriented. Patient appears in no significant distress. Limitations: no limitations General appearance: alert, in no apparent distress Head exam: Present: atraumatic, normocephalic, normal inspection Eye exam: Present: normal appearance, PERRL, EOMI. Absent: scleral icterus, conjunctival injection, periorbital swelling ENT exam: Present: normal exam Neck exam: Present: normal inspection. Absent: tenderness, meningismus, lymphadenopathy Respiratory exam: Present: normal lung sounds bilaterally. Absent: respiratory distress, wheezes, rales, rhonchi, stridor Cardiovascular Exam: Present: regular rate, normal rhythm, normal heart sounds. Absent: systolic murmur, diastolic murmur, rubs, gallop, clicks GI/Abdominal exam: Present: soft, tenderness (Left upper quadrant tenderness.), normal bowel sounds. Absent: distended, guarding, rebound, rigid Extremities exam: Present: normal inspection, full ROM, normal capillary refill. Absent: tenderness, pedal edema, joint swelling, calf tenderness Back exam: Present: normal inspection Neurological exam: Present: alert, oriented X3, CN II-XII intact Psychiatric exam: Present: normal affect, normal mood Course Vital Signs 06/13/18 06/13/18 06/13/18 14:44 15:00 16:00 Temperature 99.1 F Pulse Rate 71 77 Respiratory 16 13 Rate Blood Pressure 108/79 107/81 O2 Sat by Pulse 97 95 Oximetry 06/13/18 06/13/18 06/13/18 16:15 16:27 16:30 Temperature Pulse Rate 74 79 Respiratory 18 17 Rate Blood Pressure 107/81 100/76 100/76 O2 Sat by Pulse 95 95 Oximetry 06/13/18 06/13/18 06/13/18 16:45 17:00 17:15 Temperature Pulse Rate 64 63 72 Respiratory 11 L 15 14 Rate Blood Pressure 100/76 100/76 103/71 O2 Sat by Pulse 97 84 L 98 Oximetry 06/13/18 06/13/18 06/13/18 17:30 17:45 18:00 Temperature Pulse Rate 67 70 67 Respiratory 11 L 6 L 12 Rate Blood Pressure 103/71 103/71 103/71 O2 Sat by Pulse 97 97 96 Oximetry 06/13/18 06/13/18 06/13/18 18:09 18:15 18:30 Temperature 97.9 F Pulse Rate 71 73 72 Respiratory 18 32 H 17 Rate Blood Pressure 98/67 98/67 98/67 O2 Sat by Pulse 100 96 95 Oximetry 06/13/18 19:19 Temperature 97.8 F Pulse Rate Respiratory Rate Blood Pressure O2 Sat by Pulse Oximetry Medical Decision Making - Medical Decision Making 47 year old female presents with nausea and vomiting. Patient has history of bariatric surgery, and follows withDr. Castillo. She has an appt next week, due to these symptoms reoccuring. Patient had extensive evaluation yesterday including CT scan, which was negative for acute changes. Patient at this time does show dehydration with elevated BUN and Cr today, patient was given 2L of fluids, and pain medication. Patient lab work and KUB were otherwise unremarkable. Patient was offered admission for dehydration and ARNOLD, but states that she would like to go home. Discussed using karafate, continuiing protonix, and clear liquid diet for 2 days. Discussed return parameters. - Lab Data Result diagrams: 06/13/18 16:16 06/13/18 16:16 Lab Results 06/13/18 06/13/18 06/13/18 Range/Units 15:50 16:16 16:16 WBC 13.6 H (3.8-10.6) k/uL RBC 4.85 (3.80-5.40) m/uL Hgb 10.2 L (11.4-16.0) gm/dL Hct 32.5 L (34.0-46.0) % MCV 66.9 L (80.0-100.0) fL MCH 21.1 L (25.0-35.0) pg MCHC 31.5 (31.0-37.0) g/dL RDW 16.6 H (11.5-15.5) % Plt Count 391 (150-450) k/uL Neutrophils % 58 % Lymphocytes % 34 % Monocytes % 5 % Eosinophils % 1 % Basophils % 1 % Neutrophils # 7.9 H (1.3-7.7) k/uL Lymphocytes # 4.6 (1.0-4.8) k/uL Monocytes # 0.6 (0-1.0) k/uL Eosinophils # 0.2 (0-0.7) k/uL Basophils # 0.1 (0-0.2) k/uL Hypochromasia Marked Anisocytosis Slight Microcytosis Marked PT (9.0-12.0) sec INR (<1.2) APTT (22.0-30.0) sec Sodium 137 (137-145) mmol/L Potassium 3.8 (3.5-5.1) mmol/L Chloride 97 L (98-107) mmol/L Carbon Dioxide 24 (22-30) mmol/L Anion Gap 16 mmol/L BUN 28 H (7-17) mg/dL Creatinine 1.38 H (0.52-1.04) mg/dL Est GFR (CKD-EPI)AfAm 53 (>60 ml/min/1.73 sqM) Est GFR (CKD-EPI)NonAf 46 (>60 ml/min/1.73 sqM) Glucose 124 H (74-99) mg/dL Calcium 9.5 (8.4-10.2) mg/dL Total Bilirubin 0.6 (0.2-1.3) mg/dL AST 48 H (14-36) U/L ALT 43 (9-52) U/L Alkaline Phosphatase 99 (38-126) U/L Total Protein 8.2 (6.3-8.2) g/dL Albumin 4.6 (3.5-5.0) g/dL Amylase 114 H (30-110) U/L Lipase 125 (23-300) U/L Urine Color Light Yellow Urine Appearance Clear (Clear) Urine pH 5.0 (5.0-8.0) Ur Specific Arlee 1.007 (1.001-1.035) Urine Protein Negative (Negative) Urine Glucose (UA) Negative (Negative) Urine Ketones Negative (Negative) Urine Blood Negative (Negative) Urine Nitrite Negative (Negative) Urine Bilirubin Negative (Negative) Urine Urobilinogen <2.0 (<2.0) mg/dL Ur Leukocyte Esterase Moderate H (Negative) Urine RBC 2 (0-5) /hpf Urine WBC 2 (0-5) /hpf Ur Squamous Epith Cells 2 (0-4) /hpf Urine Bacteria Rare H (None) /hpf Hyaline Casts 18 H (0-2) /lpf Urine Mucus Rare H (None) /hpf 06/13/ Range/Units 16:16 WBC (3.8-10.6) k/uL RBC (3.80-5.40) m/uL Hgb (11.4-16.0) gm/dL Hct (34.0-46.0) % MCV (80.0-100.0) fL MCH (25.0-35.0) pg MCHC (31.0-37.0) g/dL RDW (11.5-15.5) % Plt Count (150-450) k/uL Neutrophils % % Lymphocytes % % Monocytes % % Eosinophils % % Basophils % % Neutrophils # (1.3-7.7) k/uL Lymphocytes # (1.0-4.8) k/uL Monocytes # (0-1.0) k/uL Eosinophils # (0-0.7) k/uL Basophils # (0-0.2) k/uL Hypochromasia Anisocytosis Microcytosis PT 10.1 (9.0-12.0) sec INR 1.0 (<1.2) APTT 22.1 (22.0-30.0) sec Sodium (137-145) mmol/L Potassium (3.5-5.1) mmol/L Chloride (98-107) mmol/L Carbon Dioxide (22-30) mmol/L Anion Gap mmol/L BUN (7-17) mg/dL Creatinine (0.52-1.04) mg/dL Est GFR (CKD-EPI)AfAm (>60 ml/min/1.73 sqM) Est GFR (CKD-EPI)NonAf (>60 ml/min/1.73 sqM) Glucose (74-99) mg/dL Calcium (8.4-10.2) mg/dL Total Bilirubin (0.2-1.3) mg/dL AST (14-36) U/L ALT (9-52) U/L Alkaline Phosphatase (38-126) U/L Total Protein (6.3-8.2) g/dL Albumin (3.5-5.0) g/dL Amylase (30-110) U/L Lipase (23-300) U/L Urine Color Urine Appearance (Clear) Urine pH (5.0-8.0) Ur Specific Arlee (1.001-1.035) Urine Protein (Negative) Urine Glucose (UA) (Negative) Urine Ketones (Negative) Urine Blood (Negative) Urine Nitrite (Negative) Urine Bilirubin (Negative) Urine Urobilinogen (<2.0) mg/dL Ur Leukocyte Esterase (Negative) Urine RBC (0-5) /hpf Urine WBC (0-5) /hpf Ur Squamous Epith Cells (0-4) /hpf Urine Bacteria (None) /hpf Hyaline Casts (0-2) /lpf Urine Mucus (None) /hpf - Radiology Data Radiology results: report reviewed Non Acute abdomen of KUB, no changes. Disposition Clinical Impression: Nausea & vomiting, Dehydration Disposition: HOME SELF-CARE Condition: Stable Instructions: Acute Nausea and Vomiting (ED), Bowel Management After Bariatric Surgery (DC) Additional Instructions: Patient has follow-up with primary care physician and GI specialty. Return to emergency department if any alarming signs or symptoms occur. Prescriptions: Simethicone [Gas-X] 125 mg PO DAILY #20 capsule Sucralfate [Carafate] 1 gm PO ACHS #20 tablet Is patient prescribed a controlled substance at d/c from ED?: No Referrals: Macy Knight MD [Primary Care Provider] - 1-2 days Time of Disposition: 18:58
[2018-06-13 16:34] LABS: Anisocytosis Slight; Basophils # (A) 0.1 k/uL (0-0.2); Basophils % (A) 1 %; Eosinophils # (A) 0.2 k/uL (0-0.7); Eosinophils % (A) 1 %; HCT 32.5 % (34.0-46.0); HGB 10.2 gm/dL (11.4-16.0); Hypochromasia Marked; Lymphocytes # (A) 4.6 k/uL (1.0-4.8); Lymphocytes % (A) 34 %; MCH 21.1 pg (25.0-35.0); MCHC 31.5 g/dL (31.0-37.0); MCV 66.9 fL (80.0-100.0); Mean Platelet Volume 6.5; Microcytosis Marked; Monocytes # (A) 0.6 k/uL (0-1.0); Monocytes % (A) 5 %; Neutrophils # (A) 7.9 k/uL (1.3-7.7); Neutrophils % (A) 58 %; Platelet Count 391 k/uL (150-450); RBC 4.85 m/uL (3.80-5.40); RDW 16.6 % (11.5-15.5); WBC 13.6 k/uL (3.8-10.6)
[2018-06-13 16:39] LABS: Appearance,Urine Clear (Clear); Bacteria,Urine Rare /hpf; Bilirubin,Urine Negative (Negative); Blood,Urine Negative (Negative); Color,Urine Light Yellow; Glucose,Urine (UA) Negative (Negative); Hyaline Casts,Urine 18 /lpf (0-2); Ketones,Urine Negative (Negative); Leukocyte Esterase,Urine Moderate (Negative); Mucus,Urine Rare /hpf; Nitrite,Urine Negative (Negative); Protein,Urine Negative (Negative); RBC,Urine 2 /hpf (0-5); Specific Gravity,Urine 1.007 (1.001-1.035); Squamous Epithelial Cell,Urine 2 /hpf (0-4); Urobilinogen,Urine <2.0 mg/dL (<2.0); WBC,Urine 2 /hpf (0-5)
--- NOTE | 2018-06-13 16:49 | XR ---
EXAMINATION TYPE: XR KUB DATE OF EXAM: 06/13/2018 COMPARISON: 08/21/2015 HISTORY: Abdominal pain TECHNIQUE: 2 views upright FINDINGS: There is no sign of intestinal obstruction or pneumoperitoneum. There are numerous surgical clips in the upper abdomen. There are chest leads. There are no pathologic calcifications over the k idneys. IMPRESSION: Nonacute abdomen. No change.
[2018-06-13 16:54] LABS: Partial Thromboplastin Time 22.1 sec (22.0-30.0); Prothrombin Time 10.1 sec (9.0-12.0)
[2018-06-13 17:03] LABS: Albumin 4.6 g/dL (3.5-5.0); Calcium 9.5 mg/dL (8.4-10.2); Potassium 3.8 mmol/L (3.5-5.1); Total Bilirubin 0.6 mg/dL (0.2-1.3); Total Protein 8.2 g/dL (6.3-8.2)
[2018-06-13] MEDS ORDERED: SODIUM CHLORIDE 0.9% 1,000 ML IV ONE (17:55)
[2018-06-13 18:09] VITALS: BP 98/67
[2018-06-13 18:46] VITALS: PULSE 72; RESP 17
[2018-06-13 19:20] VITALS: TEMP 97.8
== END 2018-06-13 19:20 | disposition home or self-care (01) ==
LOC: EC 14:42
DX: E86.0 Dehydration (principal); R11.2 Nausea with vomiting, unspecified; R19.7 Diarrhea, unspecified; R10.32 Left lower quadrant pain; E78.5 Hyperlipidemia, unspecified; I10 Essential (primary) hypertension; J45.909 Unspecified asthma, uncomplicated; E11.42 Type 2 diabetes mellitus with diabetic polyneuropathy; K21.9 Gastro-esophageal reflux disease without esophagitis; M19.011 Primary osteoarthritis, right shoulder; M19.012 Primary osteoarthritis, left shoulder; F32.9 Major depressive disorder, single episode, unspecified; F41.9 Anxiety disorder, unspecified; Z88.2 Allergy status to sulfonamides; Z88.5 Allergy status to narcotic agent; Z88.8 Allergy status to other drugs, medicaments and biological substances; Z91.010 Allergy to peanuts; Z91.013 Allergy to seafood; Z91.018 Allergy to other foods; Z91.041 Radiographic dye allergy status; Z79.51 Long term (current) use of inhaled steroids; Z79.82 Long term (current) use of aspirin; Z79.84 Long term (current) use of oral hypoglycemic drugs; Z79.899 Other long term (current) drug therapy; Z90.49 Acquired absence of other specified parts of digestive tract; Z98.84 Bariatric surgery status
CPT/HCPCS: 36415; 80053; 82150; 83690; 85025; 85610; 85730; 81001; 74018; 99285; 96374; 96375 ×2; 96376; 96361 ×3; J1885; J1170; C9113

== ENCOUNTER 2018-06-20 16:59 | Emergency (ER) | payer OTHER ==
[2018-06-20 17:15] VITALS: RESP 18; TEMP 98.3
[2018-06-20] MEDS ORDERED: ACETAMINOPHEN IV (For NPO) 1,000 MG in EMPTY BAG 1 BAG IVPB ONE (17:30)
[2018-06-20] MEDS ORDERED: SODIUM CHLORIDE 0.9% 1,000 ML IV STA (17:30)
[2018-06-20] MEDS ORDERED: METOCLOPRAMIDE 5 MG/ML 2 ML VIAL IVP STA (17:31)
[2018-06-20] MEDS ORDERED: diphenhydrAMINE 50 MG/ML 1 ML VIAL IVP STA (17:32)
--- NOTE | 2018-06-20 17:34 | ED ---
General Adult HPI - General Chief complaint: Headache Stated complaint: Headache Source: patient, EMS Mode of arrival: EMS - History of Present Illness Initial comments: Dictation was produced using [employer] dictation software. please excuse any grammatical, word or spelling errors. Chief Complaint: 77-year-old female with past medical history migraines presents with headache 1 day. History of Present Illness: Patient is a 47-year-old female presents with headache 1 day. Patient has a history of migraines. She states she has throbbing headache localized to her bitemporal region and forehead. She states pulsating. States that her headache feels like her headaches in the past. She had her blood pressure and heart rate checked at home and was found to be elevated. She called EMS and was brought to the emergency department. Denies any constitutional symptoms. Denies any neurologic deficit. The ROS documented in this emergency department record has been reviewed and confirmed by me. Those systems with pertinent positive or negative responses have been documented in the HPI. All other systems are other negative and/or noncontributory. - Related Data Home Medications Medication Instructions Recorded Confirmed Furosemide [Lasix] 20 mg PO BID 09/19/16 06/20/18 LORazepam [Ativan] 0.5 mg PO TID PRN 09/27/17 06/20/18 buPROPion HCL [Wellbutrin XL] 300 mg PO DAILY 09/27/17 06/20/18 metFORMIN HCL [Glucophage] 500 mg PO DAILY 09/27/17 06/20/18 Escitalopram [Lexapro] 20 mg PO DAILY 01/15/18 06/20/18 Tamsulosin HCl [Flomax] 0.4 mg PO HS 01/15/18 06/20/18 Rizatriptan Benzoate [Maxalt ELECTROTYPE CASTER] 10 mg PO DAILY PRN 03/06/18 06/20/18 Zolpidem Tartrate [Ambien] 10 mg PO HS PRN 03/06/18 06/20/18 Aspirin 325 mg PO DAILY 06/13/18 06/20/18 Beclomethasone Dipropionate [Qvar 2 puff INHALATION RT-BID 06/13/18 06/20/18 80 mcg] Biotin 300 mcg PO DAILY 06/13/18 06/20/18 Butalb/APAP/Caff 50-325-40Mg 1 tab PO Q4H PRN 06/13/18 06/20/18 [Fioricet 50-325-40] Cetirizine HCl [Zyrtec] 10 mg PO DAILY 06/13/18 06/20/18 Cholecalciferol (Vitamin D3) 2,000 unit PO DAILY 06/13/18 06/20/18 [Vitamin D3] Mirtazapine [Remeron] 15 mg PO HS 06/13/18 06/20/18 Omeprazole 20 mg PO DAILY 06/13/18 06/20/18 Propranolol HCl [Inderal LA] 80 mg PO HS 06/13/18 06/20/18 SUMAtriptan SUCCINATE [Sumavel 6 mg SQ Q2HR PRN 06/13/18 06/20/18 Dosepro] Simvastatin [Zocor] 40 mg PO HS 06/13/18 06/20/18 Previous Rx's Medication Instructions Recorded Simethicone [Gas-X] 125 mg PO DAILY #20 capsule 06/13/18 Sucralfate [Carafate] 1 gm PO ACHS #20 tablet 06/13/18 Allergies Allergy/AdvReac Type Severity Reaction Status Date / Time oxycodone [From Percocet] Allergy Unknown Swelling; Verified 06/20/18 17:29 (WAS ABLE TO TAKE ALONG WITH BENADRYL) apricot Allergy Dyspnea Verified 06/20/18 17:29 barium sulfate Allergy Anaphylaxis Verified 06/20/18 17:29 [From Readi-Cat] codeine Allergy Anaphylaxis Verified 06/20/18 17:29 hydrocodone [From Lortab] Allergy Swelling Verified 06/20/18 17:29 Iodinated Contrast- Oral and Allergy Anaphylaxis Verified 06/20/18 17:29 IV Dye iodine Allergy Rash/Hives Verified 06/20/18 17:29 morphine Allergy Rash/Hives Verified 06/20/18 17:29 peach Allergy Swelling Verified 06/20/18 17:29 peanut Allergy Swelling Verified 06/20/18 17:29 peanut oil Allergy Anaphylaxis Verified 06/20/18 17:29 shellfish derived [Shellfish] Allergy Anaphylaxis Verified 06/20/18 17:29 strawberry Allergy Anaphylaxis Verified 06/20/18 17:29 sucralfate [From Carafate] Allergy Swelling Verified 06/20/18 17:29 Sulfa (Sulfonamide Allergy Anaphylaxis Verified 06/20/18 17:29 Antibiotics) sulfamethoxazole Allergy Anaphylaxis Verified 06/20/18 17:29 [From Bactrim] tree nut [Nut] Allergy Swelling Verified 06/20/18 17:29 trimethoprim [From Bactrim] Allergy Anaphylaxis Verified 06/20/18 17:29 Review of Systems ROS Statement: Those systems with pertinent positive or pertinent negative responses have been documented in the HPI. ROS Other: All systems not noted in ROS Statement are negative. Past Medical History Past Medical History: Asthma, CVA/TIA, Diabetes Mellitus, GERD/Reflux, Hyperlipidemia, Hypertension, Osteoarthritis (OA), Pneumonia Additional Past Medical History / Comment(s): "no longer takes meds for bp "NIDDM. past tia 2015. diabetic neuropathy eli feet, migraines, cervical disc disease, DDD, eli tinnitis, arthiritis bilateral shoulders, poss fibromyalgia- pt in process of being diagnosed, seasonal allergies, IBS, HX R arm fx yrs ago , R ovarian cyst, hiatal hernia, UTIs, urinary calculus, pancreatitis x 2, stomach ulcer. pt stated she had a pne vaccine approx 2 years ago,conventional underwriter unable to verify date at time of this this admit. History of Any Multi-Drug Resistant Organisms: C-DIFF Date of last positivie culture/infection: 2012 MDRO Source:: stool Past Surgical History: Appendectomy, Bariatric Surgery, Cholecystectomy, Tonsillectomy Additional Past Surgical History / Comment(s): 2010 felix-en-Y, fistula repair 2011, 2011 gastric bypass revision, bowel resection, lap gastrojejunostomy anastamosis revision, EGD and colonoscopy, cone bx-cervical cancer remove with cryo, L fallopian tube removed due to cyst, picc line in and out, CERVICAL FUSION 12/21/16. Past Anesthesia/Blood Transfusion Reactions: Family History of Problems w/ Anesthesia, Motion Sickness, Postoperative Nausea & Vomiting (PONV) Additional Past Anesthesia/Blood Transfusion Reaction / Comment(s): Pt states she has never recieved blood. FAMILY HX PONV. Past Psychological History: Anxiety, Depression Smoking Status: Never smoker Past Alcohol Use History: None Reported Past Drug Use History: None Reported - Past Family History Brother(s) Family Medical History: Deep Vein Thrombosis (DVT) Father Family Medical History: Cancer Additional Family Medical History / Comment(s): Father had poss colon and lung cancer and at age 73yrs. Mother Family Medical History: Coronary Artery Disease (CAD), Diabetes Mellitus, Deep Vein Thrombosis (DVT), Hypertension Additional Family Medical History / Comment(s): Mother is alive and 73 yrs old. General Exam - General Exam Comments Initial Comments: PHYSICAL EXAM: General Impression: Alert and oriented x3, acute distress secondary to pain HEENT: Normocephalic atraumatic, extra-ocular movements intact, pupils equal and reactive to light bilaterally, mucous membranes moist. Cardiovascular: Heart regular rate and rhythm, S1&S2 audible, no murmurs, rubs or gallops Chest: Lungs clear to auscultation bilaterally, no rhonchi, no wheeze, no rales Abdomen: Bowel sounds present, abdomen soft, non-tender, non-distended, no organomegaly Musculoskeletal: Pulses present and equal in all extremities, no peripheral edema Motor: Power 5/5 bilaterally, no focal deficits noted Neurological: CN II-XII grossly intact, no focal motor or sensory deficits noted Skin: Intact with no visualized rashes Psych: Normal affect and mood Course Vital Signs 06/20/18 17:07 Temperature 98.3 F Pulse Rate 94 Respiratory 18 Rate Blood Pressure 111/73 O2 Sat by Pulse 97 Oximetry Medical Decision Making - Medical Decision Making ED course: 47-year-old female presents with primary headache. Vital signs upon arrival are within acceptable limits. Patient given headache cocktail. HPI not consistent with acute subarachnoid hemorrhage or hypertensive encephalopathy. For CT imaging at this time. Patient was given headache cocktail. She is also given intravenous fluids. Patient was observed in emergency department for several hours. Patient reevaluated with improvement of symptoms. Patient is requesting discharge. Patient feels at baseline. She is advised follow-up with primary care physician upon discharge. Discussed patient that she should get a referral to neurologist from her primary care doctor for outpatient management of headaches. EKG interpretation: Ventricular rate 72, normal sinus rhythm, DE 150, care is 82 , QTc 444. No DE prolongation, no QTC prolongation, no ST or T-wave changes noted. Overall, this EKG is unremarkable Disposition Clinical Impression: Headache Disposition: HOME SELF-CARE Condition: Good Instructions: Acute Headache (ED) Is patient prescribed a controlled substance at d/c from ED?: No Referrals: Macy Knight MD [Primary Care Provider] - 1-2 days Time of Disposition: 18:56
[2018-06-20 19:10] VITALS: BP 106/77; PULSE 68
== END 2018-06-20 19:01 | disposition home or self-care (01) ==
LOC: EC 16:59
DX: R51 Headache (principal); J45.909 Unspecified asthma, uncomplicated; K21.9 Gastro-esophageal reflux disease without esophagitis; E78.5 Hyperlipidemia, unspecified; I10 Essential (primary) hypertension; M19.90 Unspecified osteoarthritis, unspecified site; E11.40 Type 2 diabetes mellitus with diabetic neuropathy, unspecified; F41.9 Anxiety disorder, unspecified; F32.9 Major depressive disorder, single episode, unspecified; K58.9 Irritable bowel syndrome, unspecified; Z86.69 Personal history of other diseases of the nervous system and sense organs; Z87.19 Personal history of other diseases of the digestive system; Z87.42 Personal history of other diseases of the female genital tract; Z87.442 Personal history of urinary calculi; Z90.49 Acquired absence of other specified parts of digestive tract; Z98.1 Arthrodesis status; Z98.84 Bariatric surgery status; Z98.890 Other specified postprocedural states; Z79.51 Long term (current) use of inhaled steroids; Z79.82 Long term (current) use of aspirin; Z79.84 Long term (current) use of oral hypoglycemic drugs; Z79.899 Other long term (current) drug therapy; Z88.1 Allergy status to other antibiotic agents; Z88.2 Allergy status to sulfonamides; Z88.5 Allergy status to narcotic agent; Z88.8 Allergy status to other drugs, medicaments and biological substances; Z91.010 Allergy to peanuts; Z91.013 Allergy to seafood; Z91.018 Allergy to other foods; Z91.041 Radiographic dye allergy status
CPT/HCPCS: 99284; 96374; 96375 ×2; 96361; 93005; J1200; J2765; J0131

== ENCOUNTER 2018-08-03 13:38 | Inpatient (IN) | payer OTHER ==
[2018-08-03] MEDS ORDERED: ONDANSETRON 4 MG/2 ML VIAL IVP STA (13:57)
[2018-08-03] MEDS ORDERED: HYDROmorphone 1 MG/ML 1 ML SYRINGE IVP STA ×2 (13:59→15:22)
--- NOTE | 2018-08-03 14:13 | ED ---
Abdominal Pain HPI <SimeonCampos - Last Filed: 08/03/18 16:22> - General Source: patient Mode of arrival: ambulatory Limitations: no limitations <Carmela Carson - Last Filed: 08/03/18 16:40> - General Chief Complaint: Abdominal Pain Stated Complaint: Abd pain Time Seen by Provider: 08/03/18 13:46 - History of Present Illness Initial Comments: 40-year-old female presents with left sided abdominal pain for the last 23 days. Patient states it's getting more intense and severe. Patient states it' s mainly in the left but also traveling over to the right. Patient states when she pushes on the left she feels pain on the right. Patient felt nauseous at the vomiting along with stool. No fevers. Patient had discomfort in her left back as well. No dysuria no hematuria no blood or mucus in her stool. Patient has had an appendectomy and gastric bypass and cholecystectomy. Patient has a history of kidney stones as well along with diverticulitis. No recent illness or travel. No recent antibiotics. (Carmela Carson) - Related Data Home Medications Medication Instructions Recorded Confirmed Furosemide [Lasix] 20 mg PO BID 09/19/16 06/20/18 LORazepam [Ativan] 0.5 mg PO TID PRN 09/27/17 06/20/18 buPROPion HCL [Wellbutrin XL] 300 mg PO DAILY 09/27/17 06/20/18 metFORMIN HCL [Glucophage] 500 mg PO DAILY 09/27/17 06/20/18 Escitalopram [Lexapro] 20 mg PO DAILY 01/15/18 06/20/18 Tamsulosin HCl [Flomax] 0.4 mg PO HS 01/15/18 06/20/18 Rizatriptan Benzoate [Maxalt NURSE EMERGENCY ROOM] 10 mg PO DAILY PRN 03/06/18 06/20/18 Zolpidem Tartrate [Ambien] 10 mg PO HS PRN 03/06/18 06/20/18 Aspirin 325 mg PO DAILY 06/13/18 06/20/18 Beclomethasone Dipropionate [Qvar 2 puff INHALATION RT-BID 06/13/18 06/20/18 80 mcg] Biotin 300 mcg PO DAILY 06/13/18 06/20/18 Butalb/APAP/Caff 50-325-40Mg 1 tab PO Q4H PRN 06/13/18 06/20/18 [Fioricet 50-325-40] Cetirizine HCl [Zyrtec] 10 mg PO DAILY 06/13/18 06/20/18 Cholecalciferol (Vitamin D3) 2,000 unit PO DAILY 06/13/18 06/20/18 [Vitamin D3] Mirtazapine [Remeron] 15 mg PO HS 06/13/18 06/20/18 Omeprazole 20 mg PO DAILY 06/13/18 06/20/18 Propranolol HCl [Inderal LA] 80 mg PO HS 06/13/18 06/20/18 SUMAtriptan SUCCINATE [Sumavel 6 mg SQ Q2HR PRN 06/13/18 06/20/18 Dosepro] Simvastatin [Zocor] 40 mg PO HS 06/13/18 06/20/18 Previous Rx's Medication Instructions Recorded Simethicone [Gas-X] 125 mg PO DAILY #20 capsule 06/13/18 Sucralfate [Carafate] 1 gm PO ACHS #20 tablet 06/13/18 Allergies Allergy/AdvReac Type Severity Reaction Status Date / Time oxycodone [From Percocet] Allergy Unknown Swelling; Verified 08/03/18 13:44 (WAS ABLE TO TAKE ALONG WITH BENADRYL) apricot Allergy Dyspnea Verified 08/03/18 13:44 barium sulfate Allergy Anaphylaxis Verified 08/03/18 13:44 [From Readi-Cat] codeine Allergy Anaphylaxis Verified 08/03/18 13:44 hydrocodone [From Lortab] Allergy Swelling Verified 08/03/18 13:44 Iodinated Contrast- Oral and Allergy Anaphylaxis Verified 08/03/18 13:44 IV Dye iodine Allergy Rash/Hives Verified 08/03/18 13:44 morphine Allergy Rash/Hives Verified 08/03/18 13:44 peach Allergy Swelling Verified 08/03/18 13:44 peanut Allergy Swelling Verified 08/03/18 13:44 peanut oil Allergy Anaphylaxis Verified 08/03/18 13:44 shellfish derived [Shellfish] Allergy Anaphylaxis Verified 08/03/18 13:44 strawberry Allergy Anaphylaxis Verified 08/03/18 13:44 sucralfate [From Carafate] Allergy Swelling Verified 08/03/18 13:44 Sulfa (Sulfonamide Allergy Anaphylaxis Verified 08/03/18 13:44 Antibiotics) sulfamethoxazole Allergy Anaphylaxis Verified 08/03/18 13:44 [From Bactrim] tree nut [Nut] Allergy Swelling Verified 08/03/18 13:44 trimethoprim [From Bactrim] Allergy Anaphylaxis Verified 08/03/18 13:44 Review of Systems ROS Other: All systems not noted in ROS Statement are negative. <Campos Hendrix - Last Filed: 08/03/18 16:22> ROS Other: All systems not noted in ROS Statement are negative. Constitutional: Denies: fever ENT: Denies: throat pain Respiratory: Denies: cough Cardiovascular: Denies: chest pain Gastrointestinal: Reports: abdominal pain, nausea, vomiting, diarrhea Genitourinary: Denies: urgency, dysuria, frequency, hematuria Musculoskeletal: Reports: back pain Neurological: Denies: weakness, numbness <Carmela Carson - Last Filed: 08/03/18 16:40> ROS Statement: Those systems with pertinent positive or pertinent negative responses have been documented in the HPI. Past Medical History Past Medical History: Asthma, CVA/TIA, Diabetes Mellitus, GERD/Reflux, Hyperlipidemia, Hypertension, Osteoarthritis (OA), Pneumonia Additional Past Medical History / Comment(s): "no longer takes meds for bp "NIDDM. past tia 2016. diabetic neuropathy eli feet, migraines, cervical disc disease, DDD, eli tinnitis, arthiritis bilateral shoulders, poss fibromyalgia- pt in process of being diagnosed, seasonal allergies, IBS, HX R arm fx yrs ago , R ovarian cyst, hiatal hernia, UTIs, urinary calculus, pancreatitis x 2, stomach ulcer. 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 History of Any Multi-Drug Resistant Organisms: C-DIFF Date of last positivie culture/infection: 2012 MDRO Source:: stool Past Surgical History: Appendectomy, Bariatric Surgery, Cholecystectomy, Tonsillectomy Additional Past Surgical History / Comment(s): 2011 felix-en-Y, fistula repair 2011, 2012 gastric bypass revision, bowel resection, lap gastrojejunostomy anastamosis revision, EGD and colonoscopy, cone bx-cervical cancer remove with cryo, L fallopian tube removed due to cyst, picc line in and out, CERVICAL FUSION 12/21/16. Past Anesthesia/Blood Transfusion Reactions: Family History of Problems w/ Anesthesia, Motion Sickness, Postoperative Nausea & Vomiting (PONV) Additional Past Anesthesia/Blood Transfusion Reaction / Comment(s): Pt states she has never recieved blood. FAMILY HX PONV. Past Psychological History: Anxiety, Depression Smoking Status: Never smoker Past Alcohol Use History: None Reported Past Drug Use History: None Reported - Past Family History Brother(s) Family Medical History: Deep Vein Thrombosis (DVT) Father Family Medical History: Cancer Additional Family Medical History / Comment(s): Father had poss colon and lung cancer and at age 73yrs. Mother Family Medical History: Coronary Artery Disease (CAD), Diabetes Mellitus, Deep Vein Thrombosis (DVT), Hypertension Additional Family Medical History / Comment(s): Mother is alive and 73 yrs old. <Carmela Carson - Last Filed: 08/03/18 16:40> General Exam Limitations: no limitations General appearance: alert, in no apparent distress Eye exam: Present: normal appearance, PERRL, EOMI. Absent: scleral icterus, conjunctival injection, periorbital swelling ENT exam: Present: normal exam, mucous membranes moist Neck exam: Present: normal inspection. Absent: tenderness, meningismus, lymphadenopathy Respiratory exam: Present: normal lung sounds bilaterally. Absent: respiratory distress, wheezes, rales, rhonchi, stridor Cardiovascular Exam: Present: regular rate, normal rhythm, normal heart sounds. Absent: systolic murmur, diastolic murmur, rubs, gallop, clicks GI/Abdominal exam: Present: soft, tenderness (Left lower quadrant in general 4) , guarding, rebound, normal bowel sounds. Absent: distended, rigid Neurological exam: Present: alert, oriented X3, CN II-XII intact Psychiatric exam: Present: normal affect, normal mood Skin exam: Present: warm, dry, intact, normal color. Absent: rash <Carmela Carson - Last Filed: 08/03/18 16:40> Vital Signs 08/03/18 08/03/18 13:40 15:57 Temperature 98.0 F 97.9 F Pulse Rate 63 63 Respiratory 16 18 Rate Blood Pressure 108/73 107/79 O2 Sat by Pulse 99 97 Oximetry Medical Decision Making - Lab Data Result diagrams: 08/03/18 14:06 08/03/18 14:06 <Campos Hendrix - Last Filed: 08/03/18 16:22> - Lab Data Result diagrams: 08/03/18 14:06 08/03/18 14:06 <Carmela Carson - Last Filed: 08/03/18 16:40> - Medical Decision Making Medical decision making; this is a 48-year-old female here family. Patient reports having abdominal discomfort for several days. Also loose stool which is stopped because she's taken Imodium and Gas-X. The patient complains discomfort that started on the left side of the abdomen now it's mildly tender throughout the abdomen. She does have a past history of C. diff on 4 occasions as well as diverticulitis. Today's testing showed a white count of 7 hemoglobin of 8.8 this is a drop in hemoglobin from approximately 10 from several months ago. A rectal exam done by the physician's occupational therapy assistant. Further evaluation to continue. Patient denies noticing any blood in the stool show has had some dark stool. The patient's hematocrit 30. Urine shows 3 reds and 14 whites is cultured. CAT scan was done without contrast because patient has ALLERGIES to IV dyes. No significant pathology appreciated by review the radiologist. I examine the patient at bedside find the patient complains of discomfort throughout the abdomen. Mild voluntary guarding. The plan the patient states that this is the way she feels when she has diverticulitis. The case discussed with her attending Dr. Elliott patient be admitted his service started on Levaquin and Flagyl. Her surgeries in the past has been Dr. Castillo he 'll be placed on consult. I explained the findings and plan for the patient at bedside and answered all their questions. Dr. Hendrix (Campos Hendrix) - Lab Data Lab Results 08/03/18 08/03/18 08/03/18 Range/Units 14:06 14:06 14:06 WBC 7.5 (3.8-10.6) k/uL RBC 4.52 (3.80-5.40) m/uL Hgb 8.8 L (11.4-16.0) gm/dL Hct 30.2 L (34.0-46.0) % MCV 66.7 L (80.0-100.0) fL MCH 19.5 L (25.0-35.0) pg MCHC 29.2 L (31.0-37.0) g/dL RDW 16.4 H (11.5-15.5) % Plt Count 414 (150-450) k/uL Neutrophils % 55 % Lymphocytes % 34 % Monocytes % 6 % Eosinophils % 3 % Basophils % 1 % Neutrophils # 4.1 (1.3-7.7) k/uL Lymphocytes # 2.5 (1.0-4.8) k/uL Monocytes # 0.4 (0-1.0) k/uL Eosinophils # 0.2 (0-0.7) k/uL Basophils # 0.1 (0-0.2) k/uL Hypochromasia Marked Poikilocytosis Slight Anisocytosis Slight Microcytosis Marked Sodium 141 (137-145) mmol/L Potassium 3.8 (3.5-5.1) mmol/L Chloride 107 (98-107) mmol/L Carbon Dioxide 24 (22-30) mmol/L Anion Gap 10 mmol/L BUN 11 (7-17) mg/dL Creatinine 0.59 (0.52-1.04) mg/dL Est GFR (CKD-EPI)AfAm >90 (>60 ml/min/1.73 sqM) Est GFR (CKD-EPI)NonAf >90 (>60 ml/min/1.73 sqM) Glucose 164 H (74-99) mg/dL Calcium 9.0 (8.4-10.2) mg/dL Total Bilirubin 0.6 (0.2-1.3) mg/dL AST 35 (14-36) U/L ALT 40 (9-52) U/L Alkaline Phosphatase 100 (38-126) U/L Total Protein 7.1 (6.3-8.2) g/dL Albumin 4.0 (3.5-5.0) g/dL Amylase 53 (30-110) U/L Lipase 158 (23-300) U/L Urine Color Yellow Urine Appearance Clear (Clear) Urine pH 6.0 (5.0-8.0) Ur Specific [place] 1.012 (1.001-1.035) Urine Protein Negative (Negative) Urine Glucose (UA) Negative (Negative) Urine Ketones Negative (Negative) Urine Blood Negative (Negative) Urine Nitrite Negative (Negative) Urine Bilirubin Negative (Negative) Urine Urobilinogen <2.0 (<2.0) mg/dL Ur Leukocyte Esterase Large H (Negative) Urine RBC 3 (0-5) /hpf Urine WBC 14 H (0-5) /hpf Ur Squamous Epith Cells 4 (0-4) /hpf Urine Mucus Rare H (None) /hpf Disposition <Campos Hendrix - Last Filed: 08/03/18 16:22> Is patient prescribed a controlled substance at d/c from ED?: No Time of Disposition: 16:40 <Carmela Carson - Last Filed: 08/03/18 16:40> Clinical Impression: Abdominal pain, UTI (urinary tract infection) Disposition: ADMITTED IP TO THIS HOSP Condition: Stable Instructions: Abdominal Pain (ED) Referrals: Macy Knight MD [Primary Care Provider] - 1-2 days
[2018-08-03 14:33] LABS: Appearance,Urine Clear (Clear); Bilirubin,Urine Negative (Negative); Blood,Urine Negative (Negative); Color,Urine Yellow; Glucose,Urine (UA) Negative (Negative); Ketones,Urine Negative (Negative); Leukocyte Esterase,Urine Large (Negative); Mucus,Urine Rare /hpf; Nitrite,Urine Negative (Negative); Protein,Urine Negative (Negative); RBC,Urine 3 /hpf (0-5); Specific Gravity,Urine 1.012 (1.001-1.035); Squamous Epithelial Cell,Urine 4 /hpf (0-4); Urobilinogen,Urine <2.0 mg/dL (<2.0)
[2018-08-03 14:37] LABS: ALT 40 U/L (9-52); AST 35 U/L (14-36); Alkaline Phosphatase 100 U/L (38-126); Amylase 53 U/L (30-110); Anion Gap 10 mmol/L; Blood Urea Nitrogen 11 mg/dL (7-17); Carbon Dioxide 24 mmol/L (22-30); Chloride 107 mmol/L (98-107); Glucose 164 mg/dL (74-99); Lipase 158 U/L (23-300); Potassium 3.8 mmol/L (3.5-5.1); Sodium 141 mmol/L (137-145); Total Bilirubin 0.6 mg/dL (0.2-1.3); Total Protein 7.1 g/dL (6.3-8.2)
[2018-08-03 14:43] LABS: Anisocytosis Slight; Basophils # (A) 0.1 k/uL (0-0.2); Basophils % (A) 1 %; Eosinophils # (A) 0.2 k/uL (0-0.7); Eosinophils % (A) 3 %; HCT 30.2 % (34.0-46.0); HGB 8.8 gm/dL (11.4-16.0); Hypochromasia Marked; Lymphocytes # (A) 2.5 k/uL (1.0-4.8); Lymphocytes % (A) 34 %; MCH 19.5 pg (25.0-35.0); MCHC 29.2 g/dL (31.0-37.0); MCV 66.7 fL (80.0-100.0); Mean Platelet Volume 6.2; Microcytosis Marked; Monocytes # (A) 0.4 k/uL (0-1.0); Monocytes % (A) 6 %; Neutrophils # (A) 4.1 k/uL (1.3-7.7); Neutrophils % (A) 55 %; Platelet Count 414 k/uL (150-450); Poikilocytosis Slight; RBC 4.52 m/uL (3.80-5.40); RDW 16.4 % (11.5-15.5); WBC 7.5 k/uL (3.8-10.6)
--- NOTE | 2018-08-03 15:46 | CT ---
EXAMINATION TYPE: CT abdomen pelvis wo con DATE OF EXAM: 08/03/2018 COMPARISON: 06/12/2018 HISTORY: LT side abdomen pain, radiating across abdomen into back. CT DLP: 713.1 mGycm Automated exposure control for dose reduction was used. TECHNIQUE: Helical acquisition of images was performed from the lung bases through the pelvis. FINDINGS: Lung bases are clear. There is no pleural effusion. There are numerous surgical clips at the stomach. There is gastrojejunostomy. There is no evidence of a bowel obstruction. Spleen appears normal. Ther e is no pancreatic mass. There are clips from cholecystectomy. Liver shows no focal defect. The bile ducts are not dilated. There are clips apparently from resection of the left lobe of the liver. There is no adrenal mass. Kidneys have normal size and contour. There is no hydronephrosis. Ureters a re not dilated. There is no retroperitoneal adenopathy. There is no free fluid in the pelvis. Bladder distends smoothly. There is no inguinal hernia. I see no evidence of a bowel obstruction. Appendix i s not seen. There are clips appear from appendectomy. Lumbar spine is intact. I see no focal bony kelly tructive process. Bony pelvis is intact. Uterus is anteverted and appears normal. There is no evidenc e of a pelvic mass. There is no mesenteric edema or adenopathy. IMPRESSION: PREVIOUS SURGERY. NO SIGN OF ACUTE ABDOMEN AND PELVIS. NO CHANGE COMPARED TO OLD EXAM.
[2018-08-03] MEDS ORDERED: ONDANSETRON 4 MG/2 ML VIAL IVP PRN (16:26)
[2018-08-03] MEDS ORDERED: NALOXONE 0.4 MG/ML 1 ML VIAL IV PRN (16:26)
[2018-08-03] MEDS ORDERED: LEVOFLOXACIN 750MG-D5W PMX 750 MG in DEXTROSE/WATER 1 150ML.BAG IVPB STA (17:25)
[2018-08-03] MEDS: SODIUM CHLORIDE 0.9% 1,000 ML IV SCH (17:34)
[2018-08-03] MEDS ORDERED: SUMAtriptan SUCCINATE 50 MG TAB PO PRN (18:19)
[2018-08-03] MEDS: metroNIDAZOLE-NS PMX 500 MG in SALINE 1 100ML.BAG IVPB SCH ×2 (19:07→23:35)
[2018-08-03] MEDS: HYDROmorphone 1 MG/ML 1 ML SYRINGE IVP PRN (19:28)
[2018-08-03] MEDS: PANTOPRAZOLE 40 MG/10 ML VIAL IVP SCH (20:09)
[2018-08-03] MEDS: TAMSULOSIN 0.4 MG CAP.ER.24H PO SCH (20:09)
[2018-08-03] MEDS ORDERED: ATORVASTATIN 10 MG TAB PO SCH (21:00)
[2018-08-03] MEDS: ZOLPIDEM 10 MG TAB PO PRN (22:38)
[2018-08-04] MEDS: HYDROmorphone 1 MG/ML 1 ML SYRINGE IVP PRN ×3 (00:58→09:57)
[2018-08-04] MEDS: SODIUM CHLORIDE 0.9% 1,000 ML IV SCH ×2 (06:03→17:10)
[2018-08-04] MEDS: buPROPion XL 300 MG TAB.ER.24H PO SCH (08:15)
[2018-08-04] MEDS: PANTOPRAZOLE 40 MG/10 ML VIAL IVP SCH (08:15)
[2018-08-04] MEDS: ASPIRIN 325 MG TAB PO SCH (08:15)
[2018-08-04] MEDS: LORATADINE 10 MG TAB PO SCH (08:16)
[2018-08-04] MEDS: metFORMIN 500 MG TAB PO SCH (08:16)
[2018-08-04] MEDS: FUROSEMIDE 20 MG TAB PO SCH ×2 (08:16→15:09)
[2018-08-04] MEDS: ESCITALOPRAM 20 MG TAB PO SCH (08:16)
[2018-08-04] MEDS: DIAZEPAM 5 MG TAB PO SCH (08:21)
[2018-08-04] MEDS ORDERED: NON-FORMULARY DRUG (Biotin [Biotin] 300 MCG) PO SCH (09:00)
[2018-08-04] MEDS: metroNIDAZOLE-NS PMX 500 MG in SALINE 1 100ML.BAG IVPB SCH ×3 (09:49→23:44)
[2018-08-04] MEDS: diphenhydrAMINE 25 MG CAP PO PRN ×2 (09:49→15:09)
[2018-08-04] MEDS: CHOLECALCIFEROL 1,000 UNIT TAB PO SCH (11:06)
[2018-08-04] MEDS: MULTIVITAMINS, THERA 1 EACH TAB PO SCH (11:06)
--- NOTE | 2018-08-04 11:15 | P.HPIM ---
History of Present Illness H&P Date: 08/04/18 Chief Complaint: Abdominal pain Bella Thakur is a 48-year-old female who presented to [facility] emergency room with a chief complaint of abdominal pain, patient describes severe pain in the left upper quadrant and the left lower quadrant, for the last 3 weeks she states that she had diarrhea last week and received Imodium and has not had a bowel movement for the last 3 days. She follows with Dr. Knight and her primary care physician she has also seen Dr. Castillo in the past who did an endoscopy previously. Patient was evaluated in the emergency room, she had evidence of urinary tract infection, she also had anemia with hemoglobin of 8.8 which is a change from before. Computed tomography scan of the abdomen and pelvis was done in the emergency room without IV contrast due to ALLERGY to contrast. CT failed to reveal any significant abnormality. Patient was started on antibiotic Levaquin and Flagyl, for urinary tract infection and presumed diverticulitis and was admitted to medical floor for further evaluation and treatment, surgical consultation with Dr. Castillo was initiated. Past Medical History Past Medical History: Asthma, CVA/TIA, Diabetes Mellitus, GERD/Reflux, Hyperlipidemia, Hypertension, Osteoarthritis (OA), Pneumonia Additional Past Medical History / Comment(s): "no longer takes meds for bp "NIDDM. past tia 2015. diabetic neuropathy eli feet, migraines, cervical disc disease, DDD, eli tinnitis, arthiritis bilateral shoulders, poss fibromyalgia- pt in process of being diagnosed, seasonal allergies, IBS, HX R arm fx yrs ago , R ovarian cyst, hiatal hernia, UTIs, urinary calculus, pancreatitis x 2, stomach ulcer. 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 History of Any Multi-Drug Resistant Organisms: C-DIFF Date of last positivie culture/infection: 2012 MDRO Source:: stool Past Surgical History: Appendectomy, Bariatric Surgery, Cholecystectomy, Tonsillectomy Additional Past Surgical History / Comment(s): 2011 felix-en-Y, fistula repair 2011, 2011 gastric bypass revision, bowel resection, lap gastrojejunostomy anastamosis revision, EGD and colonoscopy, cone bx-cervical cancer remove with cryo, L fallopian tube removed due to cyst, picc line in and out, CERVICAL FUSION 12/21/16. Past Anesthesia/Blood Transfusion Reactions: Family History of Problems w/ Anesthesia, Motion Sickness, Postoperative Nausea & Vomiting (PONV) Additional Past Anesthesia/Blood Transfusion Reaction / Comment(s): Pt states she has never recieved blood. FAMILY HX PONV. Past Psychological History: Anxiety, Depression Additional Psychological History / Comment(s): Pt lives with her significant other-common law . Smoking Status: Never smoker Past Alcohol Use History: None Reported Past Drug Use History: None Reported Additional Drug Use History / Comment(s): Pt has a medical marijuana card and tried using it for pain control but it makes her nauseated so she does not use marijuana at all. - Past Family History Brother(s) Family Medical History: Deep Vein Thrombosis (DVT) Father Family Medical History: Cancer Additional Family Medical History / Comment(s): Father had poss colon and lung cancer and at age 73yrs. Mother Family Medical History: Coronary Artery Disease (CAD), Diabetes Mellitus, Deep Vein Thrombosis (DVT), Hypertension Additional Family Medical History / Comment(s): Mother is alive and 73 yrs old. Medications and Allergies Home Medications Medication Instructions Recorded Confirmed Type Furosemide [Lasix] 20 mg PO BID 09/19/16 08/03/18 History LORazepam [Ativan] 0.5 mg PO TID PRN 09/27/17 08/03/18 History buPROPion HCL [Wellbutrin XL] 300 mg PO DAILY 09/27/17 08/03/18 History metFORMIN HCL [Glucophage] 500 mg PO DAILY 09/27/17 08/03/18 History Escitalopram [Lexapro] 20 mg PO DAILY 01/15/18 08/03/18 History Tamsulosin HCl [Flomax] 0.4 mg PO HS 01/15/18 08/03/18 History Rizatriptan Benzoate [Maxalt SAP SD ANALYST] 10 mg PO DAILY PRN 03/06/18 08/03/18 History Zolpidem Tartrate [Ambien] 10 mg PO HS PRN 03/06/18 08/03/18 History Aspirin 325 mg PO DAILY 06/13/18 08/03/18 History Biotin 300 mcg PO DAILY 06/13/18 08/03/18 History Cetirizine HCl [Zyrtec] 10 mg PO DAILY 06/13/18 08/03/18 History Cholecalciferol (Vitamin D3) 2,000 unit PO DAILY 06/13/18 08/03/18 History [Vitamin D3] Omeprazole 20 mg PO DAILY 06/13/18 08/03/18 History SUMAtriptan SUCCINATE [Sumavel 6 mg SQ Q2HR PRN 06/13/18 08/03/18 History Dosepro] Diazepam [Valium] 5 mg PO DAILY 08/03/18 08/03/18 History Docusate [Colace] 100 mg PO DAILY 08/03/18 08/03/18 History Multivitamins, Thera [Multivitamin 1 tab PO DAILY 08/03/18 08/03/18 History (formulary)] Ondansetron [Zofran ODT] 1 tab SUBLINGUAL BID 08/03/18 08/03/18 History Simvastatin [Zocor] 20 mg PO HS 08/03/18 08/03/18 History Allergies Allergy/AdvReac Type Severity Reaction Status Date / Time oxycodone [From Percocet] Allergy Unknown Swelling; Verified 08/03/18 17:17 (WAS ABLE TO TAKE ALONG WITH BENADRYL) apricot Allergy Dyspnea Verified 08/03/18 17:17 barium sulfate Allergy Anaphylaxis Verified 08/03/18 17:17 [From Readi-Cat] codeine Allergy Anaphylaxis Verified 08/03/18 17:17 hydrocodone [From Lortab] Allergy Swelling Verified 08/03/18 17:17 Iodinated Contrast- Oral and Allergy Anaphylaxis Verified 08/03/18 17:17 IV Dye iodine Allergy Rash/Hives Verified 08/03/18 17:17 morphine Allergy Rash/Hives Verified 08/03/18 17:17 peach Allergy Swelling Verified 08/03/18 17:17 peanut Allergy Swelling Verified 08/03/18 17:17 peanut oil Allergy Anaphylaxis Verified 08/03/18 17:17 shellfish derived [Shellfish] Allergy Anaphylaxis Verified 08/03/18 17:17 strawberry Allergy Anaphylaxis Verified 08/03/18 17:17 sucralfate [From Carafate] Allergy Swelling Verified 08/03/18 17:17 Sulfa (Sulfonamide Allergy Anaphylaxis Verified 08/03/18 17:17 Antibiotics) sulfamethoxazole Allergy Anaphylaxis Verified 08/03/18 17:17 [From Bactrim] tree nut [Nut] Allergy Swelling Verified 08/03/18 17:17 trimethoprim [From Bactrim] Allergy Anaphylaxis Verified 08/03/18 17:17 Physical Exam Vitals: Vital Signs Temp Pulse Pulse Resp BP BP Pulse Ox 08/04/18 08:00 16 08/04/18 07:00 97.5 F L 75 16 115/82 95 08/03/18 22:32 98.8 F 70 18 102/64 98 08/03/18 17:56 97.9 F 67 16 118/75 08/03/18 17:00 98 F 62 18 98/65 98 08/03/18 15:57 97.9 F 63 18 107/79 97 08/03/18 13:40 98.0 F 63 16 108/73 99 Intake and Output 08/03/18 08/04/18 08/04/18 22:59 06:59 14:59 Intake Total 1000 Balance 1000 Intake: Amount of Fluid Infused ( 1000 ml) Other: Voiding Method Toilet # Voids 1 2 In general patient is alert and oriented 3 in no apparent distress HEENT head normocephalic and atraumatic Neck is supple no JVD no goiter no lymphadenopathy Chest exam reveals a few scattered crackles bilaterally no wheezing Cardiac exam reveals regular heart sounds no gallops no murmurs Abdomen is soft with diffuse tenderness mostly in the left upper quadrant and left lower quadrant, no palpable masses no organomegaly and normal bowel sounds Extremity exam reveals no edema no cyanosis or clubbing Neurological examination reveals no gross focal deficit Results CBC & Chem 7: 08/03/18 14:06 08/03/18 14:06 Labs: Abnormal Lab Results - Last 24 Hours (Table) 08/03/18 08/03/18 08/03/18 Range/Units 14:06 14:06 14:06 Hgb 8.8 L (11.4-16.0) gm/dL Hct 30.2 L (34.0-46.0) % MCV 66.7 L (80.0-100.0) fL MCH 19.5 L (25.0-35.0) pg MCHC 29.2 L (31.0-37.0) g/dL RDW 16.4 H (11.5-15.5) % Glucose 164 H (74-99) mg/dL Ur Leukocyte Esterase Large H (Negative) Urine WBC 14 H (0-5) /hpf Urine Mucus Rare H (None) /hpf Microbiology - Last 24 Hours (Table) 08/03/18 14:06 Urine Culture - Preliminary Urine,Voided Thrombosis Risk Factor Assmnt - Choose All That Apply Each Factor Represents 1 point: Age 41-60 years Thrombosis Risk Factor Assessment Total Risk Factor Score: 1 Thrombosis Risk Factor Assessment Level: Low Risk Assessment and Plan Plan: #1 abdominal pain, possible acute diverticulitis #2 urinary tract infection #3 anemia hemoglobin down to 8.8 hemoglobin was 10.2 in May, #4 underlying history of hyperlipidemia #5 underlying history of migraine headache #6 underlying history of depression #7 underlying history of multiple ALLERGIES At this time plan is to continue with current antibiotic Awaiting surgical consult input Will review previous EGD and colonoscopy and assess need for repeat testing Will monitor labs in a.m. For GI prophylaxis patient is on Protonix for DVT prophylaxis Will add Lovenox 40 mg subcu daily
[2018-08-04 11:35] LABS: Anisocytosis Slight; Basophils # (A) 0.1 k/uL (0-0.2); Basophils % (A) 1 %; Eosinophils # (A) 0.2 k/uL (0-0.7); Eosinophils % (A) 3 %; HCT 29.9 % (34.0-46.0); HGB 8.4 gm/dL (11.4-16.0); Hypochromasia Marked; Lymphocytes # (A) 3.3 k/uL (1.0-4.8); Lymphocytes % (A) 40 %; MCH 19.3 pg (25.0-35.0); MCHC 27.9 g/dL (31.0-37.0); MCV 69.2 fL (80.0-100.0); Mean Platelet Volume 6.1; Microcytosis Marked; Monocytes # (A) 0.4 k/uL (0-1.0); Monocytes % (A) 5 %; Neutrophils % (A) 49 %; Platelet Count 352 k/uL (150-450); RBC 4.33 m/uL (3.80-5.40); RDW 16.3 % (11.5-15.5); WBC 8.2 k/uL (3.8-10.6)
[2018-08-04 11:41] LABS: ALT 39 U/L (9-52); AST 37 U/L (14-36); Albumin 3.7 g/dL (3.5-5.0); Alkaline Phosphatase 96 U/L (38-126); Anion Gap 11 mmol/L; Blood Urea Nitrogen 12 mg/dL (7-17); Calcium 8.6 mg/dL (8.4-10.2); Carbon Dioxide 24 mmol/L (22-30); Chloride 104 mmol/L (98-107); Glucose 134 mg/dL (74-99); Potassium 4.3 mmol/L (3.5-5.1); Sodium 139 mmol/L (137-145); Total Bilirubin 0.6 mg/dL (0.2-1.3); Total Protein 6.5 g/dL (6.3-8.2)
--- NOTE | 2018-08-04 14:02 | P.GSCN ---
History of Present Illness Consult date: 08/04/18 History of present illness: CHIEF COMPLAINT: Abdominal pain HISTORY OF PRESENT ILLNESS: The patient is a 48-year-old female with chronic abdominal pain after bariatric surgery. She has history of gastric bypass performed at the [facility] by Dr. Connell in 2010 of February. She had developed a delayed leak which then warranted revision of her gastric bypass 8 months later in September 2011. She reports her highest weight was at least 300 pounds. Secondary to intractable nausea and vomiting and abdominal pain following gastric bypass, she had lost over 100 pounds down to 140+ pounds. This year, she had intussusception of her gastric bypass 8 months ago in November 2017 that resulted in immediate transfer from [facility] to [facility] for emergency surgery all done laparoscopically. She reports that the pain is very similar to presentation of left upper quadrant to radiation to the left lower quadrant. "It feels like a charley horse." She reports a pulling sensation. The pain is moderate. Prior her abdominal pain was intermittent and now it is more consistent. She had last seen Dr. Connell less than 2 months ago. Locally, she follows up with Dr. Castillo. She is passing flatus. She reports intermittent emesis of bile. General surgery is consulted for abdominal pain. PAST MEDICAL HISTORY: See list. PAST SURGICAL HISTORY: See list. MEDICATIONS: See list. ALLERGIES: See list. SOCIAL HISTORY: No illicit drug use FAMILY HISTORY: No reports of Crohn's disease or inflammatory bowel disease REVIEW OF ORGAN SYSTEMS: CONSTITUTIONAL: No fevers or chills HEENT: No troubles with vision or hearing. No reports of dysphagia. ENDOCRINE: No reports of thyroid disorders. Has diabetes. CARDIOVASCULAR: No heart attack. No chest pain. RESPIRATORY: No shortness of breath or pneumonia. GASTROINTESTINAL: No reports of recent blood in stools. Her gastric bypass with chronic abdominal pain. NEURO: No reports of stroke or seizure disorders. PSYCH: Has depression. No suicidal ideation HEMATOLOGIC: No easy bruising or bleeding LYMPHATIC: The patient denies any lumps and bumps around the neck. GENITOURINARY: Denies any blood in urine or increased urinary frequency. MUSCULOSKELETAL: Has back pain, stiffness or joint arthritis. SKIN: No skin cancer or rash. PHYSICAL EXAM: VITAL SIGNS: Reviewed GENERAL: Well-developed in no acute distress. HEENT: No sclera icterus. Extraocular movements grossly intact. Moist buccal mucosa. Head is atraumatic, normocephalic. Hears conversational speech. No nasal drainage. NECK: Supple without lymphadenopathy. CHEST: Non-labored respirations and equal bilateral excursions. CARDIOVASCULAR: Regular rate with regular rhythm. Palpable 2+ radial pulses. ABDOMEN: Soft. Nondistended. No peritonitis. Mild tenderness left lower quadrant with distraction MUSCULOSKELETAL: No clubbing, cyanosis or edema. NEUROLOGIC: No focal or lateralizing signs. Cranial nerves II through XII grossly intact. PSYCH: Appropriate affect. Alert and oriented to person, place and time. SKIN: Well perfused. Good skin turgor. LABS: Reviewed STUDIES: Reviewed ASSESSMENT: 1. History of gastric bypass with chronic abdominal pain over 2 months. PLAN: 1. She has chronic abdominal pain ongoing for more than 2+ months. Additionally, she reports her pain is very similar to her previous abdominal pain early in the year. 2. As a bariatric patient, she had a revision where her anatomy is less clear. Recommend immediate follow-up with her bariatric surgeon, Dr. Connell. 3. Radiological studies otherwise unremarkable for acute pathology such as an internal hernia, bowel obstruction, or intussusception. Hence, patient may likely be discharged with follow-up with her bariatric surgeon, Dr. Connell as an outpatient. She reports that she may need reversal of her gastric bypass; however this is to be done by her bariatric surgeon, Dr. Connell. 4. In the meantime, supportive care with IV fluid hydration. 5. 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 6. No immediate surgical intervention needed at this time. 7. Bariatric diet as tolerated. 8. Her care plan was carefully reviewed and described to the patient who agreed with close follow-up with Dr. Connell upon discharge. Thank you for this kind consultation. Past Medical History Past Medical History: Asthma, CVA/TIA, Diabetes Mellitus, GERD/Reflux, Hyperlipidemia, Hypertension, Osteoarthritis (OA), Pneumonia Additional Past Medical History / Comment(s): "no longer takes meds for bp "NIDDM. past tia 2016. diabetic neuropathy eli feet, migraines, cervical disc disease, DDD, eli tinnitis, arthiritis bilateral shoulders, poss fibromyalgia- pt in process of being diagnosed, seasonal allergies, IBS, HX R arm fx yrs ago , R ovarian cyst, hiatal hernia, UTIs, urinary calculus, pancreatitis x 2, stomach ulcer. 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 History of Any Multi-Drug Resistant Organisms: C-DIFF Year Discovered:: 2012 MDRO Source:: stool Past Surgical History: Appendectomy, Bariatric Surgery, Cholecystectomy, Tonsillectomy Additional Past Surgical History / Comment(s): 2010 sabino-en-Y, fistula repair 2011, 2011 gastric bypass revision, bowel resection, lap gastrojejunostomy anastamosis revision, EGD and colonoscopy, cone bx-cervical cancer remove with cryo, L fallopian tube removed due to cyst, picc line in and out, CERVICAL FUSION 12/21/16. Past Anesthesia/Blood Transfusion Reactions: Family History of Problems w/ Anesthesia, Motion Sickness, Postoperative Nausea & Vomiting (PONV) Additional Past Anesthesia/Blood Transfusion Reaction / Comm: Pt states she has never recieved blood. FAMILY HX PONV. Past Psychological History: Anxiety, Depression Additional Psychological History / Comment(s): Pt lives with her significant other-common law . Smoking Status: Never smoker Past Alcohol Use History: None Reported Past Drug Use History: None Reported Additional Drug Use History / Comment(s): Pt has a medical marijuana card and tried using it for pain control but it makes her nauseated so she does not use marijuana at all. - Past Family History Brother(s) Family Medical History: Deep Vein Thrombosis (DVT) Father Family Medical History: Cancer Additional Family Medical History / Comment(s): Father had poss colon and lung cancer and at age 73yrs. Mother Family Medical History: Coronary Artery Disease (CAD), Diabetes Mellitus, Deep Vein Thrombosis (DVT), Hypertension Additional Family Medical History / Comment(s): Mother is alive and 73 yrs old. Medications and Allergies Home Medications Medication Instructions Recorded Confirmed Type Furosemide [Lasix] 20 mg PO BID 09/19/16 08/03/18 History LORazepam [Ativan] 0.5 mg PO TID PRN 09/27/17 08/03/18 History buPROPion HCL [Wellbutrin XL] 300 mg PO DAILY 09/27/17 08/03/18 History metFORMIN HCL [Glucophage] 500 mg PO DAILY 09/27/17 08/03/18 History Escitalopram [Lexapro] 20 mg PO DAILY 01/15/18 08/03/18 History Tamsulosin HCl [Flomax] 0.4 mg PO HS 01/15/18 08/03/18 History Rizatriptan Benzoate [Maxalt CONSUMER EDUCATOR] 10 mg PO DAILY PRN 03/06/18 08/03/18 History Zolpidem Tartrate [Ambien] 10 mg PO HS PRN 03/06/18 08/03/18 History Aspirin 325 mg PO DAILY 06/13/18 08/03/18 History Biotin 300 mcg PO DAILY 06/13/18 08/03/18 History Cetirizine HCl [Zyrtec] 10 mg PO DAILY 06/13/18 08/03/18 History Cholecalciferol (Vitamin D3) 2,000 unit PO DAILY 06/13/18 08/03/18 History [Vitamin D3] Omeprazole 20 mg PO DAILY 06/13/18 08/03/18 History SUMAtriptan SUCCINATE [Sumavel 6 mg SQ Q2HR PRN 06/13/18 08/03/18 History Dosepro] Diazepam [Valium] 5 mg PO DAILY 08/03/18 08/03/18 History Docusate [Colace] 100 mg PO DAILY 08/03/18 08/03/18 History Multivitamins, Thera [Multivitamin 1 tab PO DAILY 08/03/18 08/03/18 History (formulary)] Ondansetron [Zofran ODT] 1 tab SUBLINGUAL BID 08/03/18 08/03/18 History Simvastatin [Zocor] 20 mg PO HS 08/03/18 08/03/18 History Allergies Allergy/AdvReac Type Severity Reaction Status Date / Time oxycodone [From Percocet] Allergy Unknown Swelling; Verified 08/03/18 17:17 (WAS ABLE TO TAKE ALONG WITH BENADRYL) apricot Allergy Dyspnea Verified 08/03/18 17:17 barium sulfate Allergy Anaphylaxis Verified 08/03/18 17:17 [From Readi-Cat] codeine Allergy Anaphylaxis Verified 08/03/18 17:17 hydrocodone [From Lortab] Allergy Swelling Verified 08/03/18 17:17 Iodinated Contrast- Oral and Allergy Anaphylaxis Verified 08/03/18 17:17 IV Dye iodine Allergy Rash/Hives Verified 08/03/18 17:17 morphine Allergy Rash/Hives Verified 08/03/18 17:17 peach Allergy Swelling Verified 08/03/18 17:17 peanut Allergy Swelling Verified 08/03/18 17:17 peanut oil Allergy Anaphylaxis Verified 08/03/18 17:17 shellfish derived [Shellfish] Allergy Anaphylaxis Verified 08/03/18 17:17 strawberry Allergy Anaphylaxis Verified 08/03/18 17:17 sucralfate [From Carafate] Allergy Swelling Verified 08/03/18 17:17 Sulfa (Sulfonamide Allergy Anaphylaxis Verified 08/03/18 17:17 Antibiotics) sulfamethoxazole Allergy Anaphylaxis Verified 08/03/18 17:17 [From Bactrim] tree nut [Nut] Allergy Swelling Verified 08/03/18 17:17 trimethoprim [From Bactrim] Allergy Anaphylaxis Verified 08/03/18 17:17 Surgical - Exam Vital Signs Temp Pulse Resp BP Pulse Ox 98.0 F 63 16 108/73 99 08/03/18 13:40 08/03/18 13:40 08/03/18 13:40 08/03/18 13:40 08/03/18 13:40 Results - Labs 08/04/18 10:58 08/04/18 10:58 Abnormal Lab Results - Last 24 Hours (Table) 08/03/18 08/03/18 08/03/18 Range/Units 14:06 14:06 14:06 Hgb 8.8 L (11.4-16.0) gm/dL Hct 30.2 L (34.0-46.0) % MCV 66.7 L (80.0-100.0) fL MCH 19.5 L (25.0-35.0) pg MCHC 29.2 L (31.0-37.0) g/dL RDW 16.4 H (11.5-15.5) % Glucose 164 H (74-99) mg/dL AST (14-36) U/L Ur Leukocyte Esterase Large H (Negative) Urine WBC 14 H (0-5) /hpf Urine Mucus Rare H (None) /hpf 08/04/18 08/04/18 Range/Units 10:58 10:58 Hgb 8.4 L (11.4-16.0) gm/dL Hct 29.9 L (34.0-46.0) % MCV 69.2 L (80.0-100.0) fL MCH 19.3 L (25.0-35.0) pg MCHC 27.9 L (31.0-37.0) g/dL RDW 16.3 H (11.5-15.5) % Glucose 134 H (74-99) mg/dL AST 37 H (14-36) U/L Ur Leukocyte Esterase (Negative) Urine WBC (0-5) /hpf Urine Mucus (None) /hpf Microbiology - Last 24 Hours (Table) 08/03/18 14:06 Urine Culture - Preliminary Urine,Voided Diabetes panel 08/03/18 08/04/18 Range/Units 14:06 10:58 Sodium 141 139 (137-145) mmol/L Potassium 3.8 4.3 (3.5-5.1) mmol/L Chloride 107 104 (98-107) mmol/L Carbon Dioxide 24 24 (22-30) mmol/L BUN 11 12 (7-17) mg/dL Creatinine 0.59 0.74 (0.52-1.04) mg/dL Glucose 164 H 134 H (74-99) mg/dL Calcium 9.0 8.6 (8.4-10.2) mg/dL AST 35 37 H (14-36) U/L ALT 40 39 (9-52) U/L Alkaline Phosphatase 100 96 (38-126) U/L Total Protein 7.1 6.5 (6.3-8.2) g/dL Albumin 4.0 3.7 (3.5-5.0) g/dL Calcium panel 08/03/18 08/04/18 Range/Units 14:06 10:58 Calcium 9.0 8.6 (8.4-10.2) mg/dL Albumin 4.0 3.7 (3.5-5.0) g/dL Pituitary panel 08/03/18 08/04/18 Range/Units 14:06 10:58 Sodium 141 139 (137-145) mmol/L Potassium 3.8 4.3 (3.5-5.1) mmol/L Chloride 107 104 (98-107) mmol/L Carbon Dioxide 24 24 (22-30) mmol/L BUN 11 12 (7-17) mg/dL Creatinine 0.59 0.74 (0.52-1.04) mg/dL Glucose 164 H 134 H (74-99) mg/dL Calcium 9.0 8.6 (8.4-10.2) mg/dL Adrenal panel 08/03/18 08/04/18 Range/Units 14:06 10:58 Sodium 141 139 (137-145) mmol/L Potassium 3.8 4.3 (3.5-5.1) mmol/L Chloride 107 104 (98-107) mmol/L Carbon Dioxide 24 24 (22-30) mmol/L BUN 11 12 (7-17) mg/dL Creatinine 0.59 0.74 (0.52-1.04) mg/dL Glucose 164 H 134 H (74-99) mg/dL Calcium 9.0 8.6 (8.4-10.2) mg/dL Total Bilirubin 0.6 0.6 (0.2-1.3) mg/dL AST 35 37 H (14-36) U/L ALT 40 39 (9-52) U/L Alkaline Phosphatase 100 96 (38-126) U/L Total Protein 7.1 6.5 (6.3-8.2) g/dL Albumin 4.0 3.7 (3.5-5.0) g/dL - Imaging CT scan - abdomen: report reviewed (Imaging personally reviewed demonstrating no evidence of small bowel obstruction, perforation, intussusception, internal hernia. No inflammatory changes identified of the left upper or left lower quadrant to explain patient's pain), image reviewed CT scan - pelvis: report reviewed, image reviewed Assessment and Plan (1) Chronic abdominal pain Current Visit: Yes Status: Acute Code(s): R10.9 - UNSPECIFIED ABDOMINAL PAIN ; G89.29 - OTHER CHRONIC PAIN SNOMED Code(s): 189152441 (2) History of Sabino-en-Y gastric bypass Current Visit: Yes Status: Acute Code(s): Z98.84 - BARIATRIC SURGERY STATUS SNOMED Code(s): 013119944 (3) Chronic pain syndrome Current Visit: Yes Status: Acute Code(s): G89.4 - CHRONIC PAIN SYNDROME SNOMED Code(s): 421762924 (4) Left lower quadrant pain Current Visit: Yes Status: Acute Code(s): R10.32 - LEFT LOWER QUADRANT PAIN SNOMED Code(s): 526331523 (5) At risk for readmission to hospital Current Visit: No Status: Acute Code(s): Z91.89 - OTH PERSONAL RISK FACTORS , NOT ELSEWHERE CLASSIFIED SNOMED Code(s): 4086868599972 (6) Dehydration Current Visit: No Status: Acute Code(s): E86.0 - DEHYDRATION SNOMED Code(s ): 45971238
[2018-08-04] MEDS: LEVOFLOXACIN 500MG-D5W PMX 500 MG in DEXTROSE/WATER 1 100ML.BAG IVPB SCH (17:10)
[2018-08-04] MEDS: ACETAMINOPHEN TAB 325 MG TAB PO PRN (19:03)
[2018-08-04] MEDS: SIMVASTATIN 40 MG PO SCH (20:22)
[2018-08-04] MEDS: TAMSULOSIN 0.4 MG CAP.ER.24H PO SCH (20:22)
[2018-08-04] MEDS: ZOLPIDEM 10 MG TAB PO PRN (20:24)
[2018-08-05] MEDS: SODIUM CHLORIDE 0.9% 1,000 ML IV SCH ×2 (05:36→19:53)
[2018-08-05] MEDS: ENOXAPARIN 40 MG/0.4 ML SYRINGE SQ SCH (08:14)
[2018-08-05] MEDS: ASPIRIN 325 MG TAB PO SCH (08:14)
[2018-08-05] MEDS: FUROSEMIDE 20 MG TAB PO SCH ×2 (08:15→15:31)
[2018-08-05] MEDS: metroNIDAZOLE-NS PMX 500 MG in SALINE 1 100ML.BAG IVPB SCH ×3 (08:15→22:47)
[2018-08-05] MEDS: PANTOPRAZOLE 40 MG/10 ML VIAL IVP SCH (08:15)
[2018-08-05] MEDS: ESCITALOPRAM 20 MG TAB PO SCH (08:15)
[2018-08-05] MEDS: metFORMIN 500 MG TAB PO SCH (08:15)
[2018-08-05] MEDS: LORATADINE 10 MG TAB PO SCH (08:15)
[2018-08-05] MEDS: buPROPion XL 300 MG TAB.ER.24H PO SCH (08:15)
[2018-08-05] MEDS: DIAZEPAM 5 MG TAB PO SCH (08:22)
[2018-08-05 09:54] LABS: Anisocytosis Slight; Basophils # (A) 0.1 k/uL (0-0.2); Basophils % (A) 1 %; Eosinophils # (A) 0.2 k/uL (0-0.7); Eosinophils % (A) 3 %; HCT 30.7 % (34.0-46.0); HGB 8.9 gm/dL (11.4-16.0); Hypochromasia Marked; Lymphocytes # (A) 3.1 k/uL (1.0-4.8); Lymphocytes % (A) 41 %; MCH 19.8 pg (25.0-35.0); MCHC 28.8 g/dL (31.0-37.0); MCV 68.6 fL (80.0-100.0); Mean Platelet Volume 6.9; Microcytosis Marked; Monocytes # (A) 0.5 k/uL (0-1.0); Monocytes % (A) 7 %; Neutrophils # (A) 3.4 k/uL (1.3-7.7); Neutrophils % (A) 46 %; Platelet Count 332 k/uL (150-450); RBC 4.48 m/uL (3.80-5.40); RDW 16.6 % (11.5-15.5); WBC 7.4 k/uL (3.8-10.6)
[2018-08-05 10:14] LABS: ALT 35 U/L (9-52); AST 32 U/L (14-36); Albumin 3.5 g/dL (3.5-5.0); Alkaline Phosphatase 98 U/L (38-126); Anion Gap 10 mmol/L; Blood Urea Nitrogen 9 mg/dL (7-17); Calcium 8.7 mg/dL (8.4-10.2); Carbon Dioxide 25 mmol/L (22-30); Chloride 105 mmol/L (98-107); Glucose 195 mg/dL (74-99); Sodium 140 mmol/L (137-145); Total Bilirubin 0.6 mg/dL (0.2-1.3); Total Protein 6.4 g/dL (6.3-8.2)
[2018-08-05 10:15] LABS: Potassium 3.8 mmol/L (3.5-5.1)
--- NOTE | 2018-08-05 10:58 | P.PN ---
Subjective Progress Note Date: 08/05/18 Bella Thakur is a 48-year-old female who presented to [facility] emergency room with a chief complaint of abdominal pain, patient describes severe pain in the left upper quadrant and the left lower quadrant, for the last 3 weeks she states that she had diarrhea last week and received Imodium and has not had a bowel movement for the last 3 days. She follows with Dr. Knight and her primary care physician she has also seen Dr. Castillo in the past who did an endoscopy previously. Patient was evaluated in the emergency room, she had evidence of urinary tract infection, she also had anemia with hemoglobin of 8.8 which is a change from before. Computed tomography scan of the abdomen and pelvis was done in the emergency room without IV contrast due to ALLERGY to contrast. CT failed to reveal any significant abnormality. Patient was started on antibiotic Levaquin and Flagyl, for urinary tract infection and presumed diverticulitis and was admitted to medical floor for further evaluation and treatment, surgical consultation with Dr. Castillo was initiated. On 08/05/2018 patient is currently resting in bed. Patient does state some improvement with abdominal pain. Patient states she's had about 5 loose bowel movements since midnight. Patient denies chest pain or shortness of breath. Patient denies nausea vomiting or diarrhea. Patient urinary burning or frequency. Objective - Vital Signs Vital signs: Vital Signs Temp 99.3 F 08/05/18 05:53 Pulse 63 08/05/18 08:00 Resp 17 08/05/18 08:00 BP 94/53 08/05/18 05:53 Pulse Ox 98 08/05/18 05:53 Intake & Output 08/04/18 08/05/18 08/05/18 18:59 06:59 18:59 Intake Total 920 Balance 920 Intake: Oral 920 Other: Voiding Method Toilet Toilet # Voids 2 2 4 # Bowel Movements 4 - Exam In general patient is alert and oriented 3 in no apparent distress HEENT head normocephalic and atraumatic Neck is supple no JVD no goiter no lymphadenopathy Chest exam reveals a few scattered crackles bilaterally no wheezing Cardiac exam reveals regular heart sounds no gallops no murmurs Abdomen is soft with diffuse tenderness mostly in the left upper quadrant and left lower quadrant, no palpable masses no organomegaly and normal bowel sounds Extremity exam reveals no edema no cyanosis or clubbing Neurological examination reveals no gross focal deficit - Labs CBC & Chem 7: 08/05/18 08:45 08/05/18 08:45 Labs: Abnormal Lab Results - Last 24 Hours (Table) 08/04/18 08/04/18 08/05/18 Range/Units 10:58 10:58 08:45 Hgb 8.4 L 8.9 L (11.4-16.0) gm/dL Hct 29.9 L 30.7 L (34.0-46.0) % MCV 69.2 L 68.6 L (80.0-100.0) fL MCH 19.3 L 19.8 L (25.0-35.0) pg MCHC 27.9 L 28.8 L (31.0-37.0) g/dL RDW 16.3 H 16.6 H (11.5-15.5) % Glucose 134 H (74-99) mg/dL AST 37 H (14-36) U/L 08/05/18 Range/Units 08:45 Hgb (11.4-16.0) gm/dL Hct (34.0-46.0) % MCV (80.0-100.0) fL MCH (25.0-35.0) pg MCHC (31.0-37.0) g/dL RDW (11.5-15.5) % Glucose 195 H (74-99) mg/dL AST (14-36) U/L Microbiology - Last 24 Hours (Table) 08/03/18 14:06 Urine Culture - Final Urine,Voided Assessment and Plan Assessment: #1 abdominal pain, possible acute diverticulitis. Per surgical services recommend immediate follow-up with her bariatric surgeon Dr. Connell supportive care with IV fluid hydration no immediate surgical intervention needed at this time. She remains on IV Flagyl and Levaquin at this time #2 urinary tract infection. She currently on Levaquin. Urine culture ordered #3 anemia hemoglobin down to 8.8 hemoglobin was 10.2 in May, #4 underlying history of hyperlipidemia #5 underlying history of migraine headache #6 underlying history of depression #7 underlying history of multiple ALLERGIES #8 history of bariatric surgery Sabino-en-Y [address] Connell. Surgical services recommending follow-up with bariatric surgeon outpatient For GI prophylaxis patient is on Protonix for DVT prophylaxis Will add Lovenox 40 mg subcu daily I performed an examination of the patient and discussed their management with the Nurse Practitioner. I have reviewed the Nurse Practitioner's notes and agree with the documented findings and plan of care
[2018-08-05] MEDS: BIOTIN 10000 UNIT PO SCH (11:22)
[2018-08-05] MEDS: ACETAMINOPHEN TAB 325 MG TAB PO PRN (11:25)
[2018-08-05] MEDS: MULTIVITAMINS, THERA 1 EACH TAB PO SCH (11:25)
[2018-08-05] MEDS: CHOLECALCIFEROL 1,000 UNIT TAB PO SCH (11:25)
[2018-08-05 12:29] LABS: Glucose,Whole Blood 105 mg/dL (75-99)
[2018-08-05] MEDS: diphenhydrAMINE 25 MG CAP PO PRN ×2 (13:05→18:29)
[2018-08-05] MEDS: HYDROmorphone 1 MG/ML 1 ML SYRINGE IVP PRN ×3 (13:05→18:29)
--- NOTE | 2018-08-05 15:07 | CDI ---
Documentation Clarification Form Date: 08/05/2018 2:40:00 PM From: Mera Zarate RN, CCDS Admit Date: 08/03/2018 4:34:00 PM Patient Name: Bella Harper Visit Number: [id number] Discharge Date: ATTENTION: The Clinical Documentation Specialists (CDI) and [facility] Coding Staff appreciate your assistance in clarifying documentation. Please respond to the clarification below the line at the bottom and electronically sign. The CDI & [facility] Coding staff will review the response and follow-up if needed. Please note: Queries are made part of the Legal Health Record. If you have any questions, please contact the author of this message via ITS. Dr. Bushra Neal diagnosis of anemia lacks specificity to accurately reflect your patients severity of condition and clarification is needed. History/Risk Factors: Abdominal pain, Diabetes mellitus, Hypertension, CVA, TIA , Gastric bypass with revision, Clinical indicators: ED with complaints of abdominal pain, denies weakness or numbness. Per your progress notes hemoglobin of 8.8 this is a drop in hemoglobin from approximately 10 from several months ago. Stool Occult Blood: Negative Hemoglobin: 8.8 8.4 8.9 Hematocrit: 30.2 29.9 30.7 Treatment: monitoring labs/CBC Multivitamin PO In order to capture the severity of condition, please clarify the type of anemia and etiology if known: Acute blood loss anemia Acute on chronic blood loss anemia Chronic blood loss anemia Nutritional anemia Unable to determine Other, please specify (Last Revision: May 2017) Unable to determine anemia MTDD
[2018-08-05 17:00] LABS: Glucose,Whole Blood 99 mg/dL (75-99)
--- NOTE | 2018-08-05 17:58 | P.PN ---
Subjective Progress Note Date: 08/05/18 Principal diagnosis: Abdominal pain Patient on our service from previous evaluations. Patient has a history of intermittent episodes of worsening of her chronic abdominal discomfort. Pain is typically in the left side. She states her pain is radiating to the right side at times from the left. She was having episodes of nausea and vomiting while at home. She was having loose stools. Those symptoms have for the most part improved. CAT scan was reviewed shows no evidence of obstruction or inflammatory change. White blood cell count normal. No significant febrile episodes. Objective - Vital Signs Vital signs: Vital Signs Temp 96.6 F L 08/05/18 14:53 Pulse 73 08/05/18 15:32 Resp 16 08/05/18 15:32 BP 95/55 08/05/18 14:53 Pulse Ox 97 08/05/18 14:53 Intake & Output 08/04/18 08/05/18 08/05/18 18:59 06:59 18:59 Intake Total 920 Balance 920 Intake: Oral 920 Other: Voiding Method Toilet Toilet # Voids 2 2 2 # Bowel Movements 4 - Exam Abdomen: Soft, nondistended, mild diffuse tenderness - Labs CBC & Chem 7: 08/05/18 08:45 08/05/18 08:45 Labs: Abnormal Lab Results - Last 24 Hours (Table) 08/05/18 08/05/18 08/05/18 Range/Units 08:45 08:45 12:27 Hgb 8.9 L (11.4-16.0) gm/dL Hct 30.7 L (34.0-46.0) % MCV 68.6 L (80.0-100.0) fL MCH 19.8 L (25.0-35.0) pg MCHC 28.8 L (31.0-37.0) g/dL RDW 16.6 H (11.5-15.5) % Glucose 195 H (74-99) mg/dL POC Glucose (mg/dL) 105 H (75-99) mg/dL Microbiology - Last 24 Hours (Table) 08/03/18 14:06 Urine Culture - Final Urine,Voided Assessment and Plan (1) Abdominal pain Narrative/Plan: Patient with ongoing issues related to her abdominal pain. No surgical explanation from our standpoint at this time. Recommend follow-up with her bariatric surgeon at the [facility]. If symptoms of diarrhea persists consider GI evaluation. Current Visit: Yes Status: Acute Code(s): R10.9 - UNSPECIFIED ABDOMINAL PAIN SNOMED Code(s): 79362362
[2018-08-05] MEDS: LEVOFLOXACIN 500MG-D5W PMX 500 MG in DEXTROSE/WATER 1 100ML.BAG IVPB SCH (18:29)
[2018-08-05] MEDS: TAMSULOSIN 0.4 MG CAP.ER.24H PO SCH (20:38)
[2018-08-05] MEDS: SIMVASTATIN 40 MG PO SCH (20:38)
[2018-08-05 20:41] LABS: Glucose,Whole Blood 130 mg/dL (75-99)
[2018-08-05] MEDS: LORazepam 0.5 MG TAB PO PRN (20:42)
[2018-08-05] MEDS: ZOLPIDEM 10 MG TAB PO PRN (20:42)
[2018-08-05 23:05] LABS: Hemoglobin A1C 8.2 % (4.0-6.0)
[2018-08-06] MEDS: HYDROmorphone 1 MG/ML 1 ML SYRINGE IVP PRN ×5 (02:44→21:36)
[2018-08-06] MEDS: diphenhydrAMINE 25 MG CAP PO PRN ×2 (02:44→08:13)
[2018-08-06 07:05] LABS: Glucose,Whole Blood 90 mg/dL (75-99)
[2018-08-06] MEDS: SODIUM CHLORIDE 0.9% 1,000 ML IV SCH ×2 (08:01→21:29)
[2018-08-06] MEDS: metroNIDAZOLE-NS PMX 500 MG in SALINE 1 100ML.BAG IVPB SCH ×2 (08:01→15:36)
[2018-08-06] MEDS: ENOXAPARIN 40 MG/0.4 ML SYRINGE SQ SCH (08:03)
[2018-08-06] MEDS: MULTIVITAMINS, THERA 1 EACH TAB PO SCH (08:03)
[2018-08-06] MEDS: PANTOPRAZOLE 40 MG/10 ML VIAL IVP SCH (08:03)
[2018-08-06] MEDS: metFORMIN 500 MG TAB PO SCH (08:03)
[2018-08-06] MEDS: ESCITALOPRAM 20 MG TAB PO SCH (08:03)
[2018-08-06] MEDS: CHOLECALCIFEROL 1,000 UNIT TAB PO SCH (08:03)
[2018-08-06] MEDS: FUROSEMIDE 20 MG TAB PO SCH ×2 (08:03→15:37)
[2018-08-06] MEDS: LORATADINE 10 MG TAB PO SCH (08:03)
[2018-08-06] MEDS: ASPIRIN 325 MG TAB PO SCH (08:03)
[2018-08-06] MEDS: BIOTIN 10000 UNIT PO SCH (08:04)
[2018-08-06] MEDS: buPROPion XL 300 MG TAB.ER.24H PO SCH (08:04)
[2018-08-06] MEDS: DIAZEPAM 5 MG TAB PO SCH (08:10)
[2018-08-06 10:24] LABS: ALT 32 U/L (9-52); AST 30 U/L (14-36); Albumin 3.2 g/dL (3.5-5.0); Alkaline Phosphatase 75 U/L (38-126); Anion Gap 11 mmol/L; Blood Urea Nitrogen 8 mg/dL (7-17); Calcium 8.6 mg/dL (8.4-10.2); Carbon Dioxide 25 mmol/L (22-30); Chloride 102 mmol/L (98-107); Glucose 146 mg/dL (74-99); Potassium 3.6 mmol/L (3.5-5.1); Sodium 138 mmol/L (137-145); Total Bilirubin 0.5 mg/dL (0.2-1.3)
[2018-08-06 10:26] LABS: Anisocytosis Slight; Basophils # (A) 0.1 k/uL (0-0.2); Basophils % (A) 1 %; Eosinophils # (A) 0.2 k/uL (0-0.7); Eosinophils % (A) 3 %; HCT 27.5 % (34.0-46.0); HGB 7.9 gm/dL (11.4-16.0); Hypochromasia Marked; Lymphocytes # (A) 2.4 k/uL (1.0-4.8); Lymphocytes % (A) 37 %; MCH 19.8 pg (25.0-35.0); MCHC 28.8 g/dL (31.0-37.0); MCV 68.8 fL (80.0-100.0); Mean Platelet Volume 6.4; Microcytosis Marked; Monocytes # (A) 0.4 k/uL (0-1.0); Monocytes % (A) 6 %; Neutrophils # (A) 3.3 k/uL (1.3-7.7); Neutrophils % (A) 50 %; Platelet Count 305 k/uL (150-450); RDW 16.9 % (11.5-15.5); WBC 6.5 k/uL (3.8-10.6)
--- NOTE | 2018-08-06 11:19 | P.PN ---
Subjective Progress Note Date: 08/06/18 Principal diagnosis: Abdominal pain Patient still complaining of diarrhea. She states she has gone 6-7 times since last night. No blood. Pain is about the same. She is afebrile. Labs noted. C. diff not checked that I can see. Objective - Vital Signs Vital signs: Vital Signs Temp 97.5 F L 08/06/18 06:23 Pulse 84 08/06/18 06:23 Resp 17 08/06/18 06:23 BP 101/68 08/06/18 10:36 Pulse Ox 96 08/06/18 06:23 Intake & Output 08/05/18 08/06/18 08/06/18 18:59 06:59 18:59 Other: Voiding Method Toilet # Voids 2 1 # Bowel Movements 4 - Exam Abdomen: Soft, nondistended, mild left-sided tenderness - Labs CBC & Chem 7: 08/06/18 09:50 08/06/18 09:50 Labs: Abnormal Lab Results - Last 24 Hours (Table) 08/05/18 08/05/18 08/05/18 Range/Units 08:45 12:27 20:39 Hgb (11.4-16.0) gm/dL Hct (34.0-46.0) % MCV (80.0-100.0) fL MCH (25.0-35.0) pg MCHC (31.0-37.0) g/dL RDW (11.5-15.5) % Glucose (74-99) mg/dL POC Glucose (mg/dL) 105 H 130 H (75-99) mg/dL Hemoglobin A1c 8.2 H (4.0-6.0) % Total Protein (6.3-8.2) g/dL Albumin (3.5-5.0) g/dL 08/06/18 08/06/18 Range/Units 09:50 09:50 Hgb 7.9 L (11.4-16.0) gm/dL Hct 27.5 L (34.0-46.0) % MCV 68.8 L (80.0-100.0) fL MCH 19.8 L (25.0-35.0) pg MCHC 28.8 L (31.0-37.0) g/dL RDW 16.9 H (11.5-15.5) % Glucose 146 H (74-99) mg/dL POC Glucose (mg/dL) (75-99) mg/dL Hemoglobin A1c (4.0-6.0) % Total Protein 6.0 L (6.3-8.2) g/dL Albumin 3.2 L (3.5-5.0) g/dL Microbiology - Last 24 Hours (Table) 08/05/18 12:55 Urine Culture - Preliminary Urine,Voided Assessment and Plan (1) Abdominal pain Narrative/Plan: Check stool for C. diff. Continue diet as tolerated. No additional surgical intervention or plans at this time. Current Visit: Yes Status: Acute Code(s): R10.9 - UNSPECIFIED ABDOMINAL PAIN SNOMED Code(s): 89691583
[2018-08-06 12:00] LABS: Glucose,Whole Blood 86 mg/dL (75-99)
--- NOTE | 2018-08-06 13:00 | P.PN ---
Subjective Progress Note Date: 08/06/18 Bella Thakur is a 48-year-old female who presented to [facility] emergency room with a chief complaint of abdominal pain, patient describes severe pain in the left upper quadrant and the left lower quadrant, for the last 3 weeks she states that she had diarrhea last week and received Imodium and has not had a bowel movement for the last 3 days. She follows with Dr. Knight and her primary care physician she has also seen Dr. Castillo in the past who did an endoscopy previously. Patient was evaluated in the emergency room, she had evidence of urinary tract infection, she also had anemia with hemoglobin of 8.8 which is a change from before. Computed tomography scan of the abdomen and pelvis was done in the emergency room without IV contrast due to ALLERGY to contrast. CT failed to reveal any significant abnormality. Patient was started on antibiotic Levaquin and Flagyl, for urinary tract infection and presumed diverticulitis and was admitted to medical floor for further evaluation and treatment, surgical consultation with Dr. Castillo was initiated. On 08/05/2018 patient is currently resting in bed. Patient does state some improvement with abdominal pain. Patient states she's had about 5 loose bowel movements since midnight. Patient denies chest pain or shortness of breath. Patient denies nausea vomiting or diarrhea. Patient urinary burning or frequency. 08/06/2018 patient started having diarrhea last night. She's had almost 10 watery stools. She reports no blood in the stool. Stool for C. diff has been ordered. Patient does report eating salads at home just prior to the salad recall. No recent traveling. Reports no one around her with diarrhea. Patient is currently being treated for diverticulitis and possible UTI. She remains on Levaquin and Flagyl. Patient did have some hypotension through the evening. Blood pressures are now improving. Hemoglobin is 7.9. Iron studies ordered. Stool for occult blood was negative. Patient denies any chest pain or shortness of breath. Still having left-sided abdominal pain. Objective - Vital Signs Vital signs: Vital Signs Temp 97.5 F L 08/06/18 06:23 Pulse 84 08/06/18 06:23 Resp 17 08/06/18 06:23 BP 101/68 08/06/18 10:36 Pulse Ox 96 08/06/18 06:23 Intake & Output 08/05/18 08/06/18 08/06/18 18:59 06:59 18:59 Other: Voiding Method Toilet # Voids 2 1 # Bowel Movements 4 - Exam Head normocephalic Neck supple Lungs clear to auscultation bilaterally no wheezing or crackles Heart regular rate and rhythm S1-S2, no rub or gallop Abdomen is soft left-sided abdominal tenderness nondistended positive bowel sounds no hepatosplenomegaly Extremities no edema Neuro alert and orientated to 3 - Labs CBC & Chem 7: 08/06/18 09:50 08/06/18 09:50 Labs: Abnormal Lab Results - Last 24 Hours (Table) 08/05/18 08/05/18 08/06/18 Range/Units 08:45 20:39 09:50 Hgb 7.9 L (11.4-16.0) gm/dL Hct 27.5 L (34.0-46.0) % MCV 68.8 L (80.0-100.0) fL MCH 19.8 L (25.0-35.0) pg MCHC 28.8 L (31.0-37.0) g/dL RDW 16.9 H (11.5-15.5) % Glucose (74-99) mg/dL POC Glucose (mg/dL) 130 H (75-99) mg/dL Hemoglobin A1c 8.2 H (4.0-6.0) % Total Protein (6.3-8.2) g/dL Albumin (3.5-5.0) g/dL 08/06/18 Range/Units 09:50 Hgb (11.4-16.0) gm/dL Hct (34.0-46.0) % MCV (80.0-100.0) fL MCH (25.0-35.0) pg MCHC (31.0-37.0) g/dL RDW (11.5-15.5) % Glucose 146 H (74-99) mg/dL POC Glucose (mg/dL) (75-99) mg/dL Hemoglobin A1c (4.0-6.0) % Total Protein 6.0 L (6.3-8.2) g/dL Albumin 3.2 L (3.5-5.0) g/dL Microbiology - Last 24 Hours (Table) 08/05/18 12:55 Urine Culture - Preliminary Urine,Voided Assessment and Plan Assessment: #1 abdominal pain with possible acute diverticulitis. Per surgical services recommend immediate follow-up with her bariatric surgeon Dr. Connell supportive care with IV fluid hydration no immediate surgical intervention needed at this time. She remains on IV Flagyl and Levaquin at this time. Check stool for C. diff. Checking stool cultures. #2 urinary tract infection. She currently on Levaquin. Repeat urine culture pending #3 anemia hemoglobin down to 7.9 hemoglobin was 10.2 in May,. Stool for occult blood negative. Check iron studies and repeat stool for occult blood #4 underlying history of hyperlipidemia #5 underlying history of migraine headache #6 underlying history of depression #7 underlying history of multiple ALLERGIES #8 history of bariatric surgery Sabino-en-Y [address] Connell. Surgical services recommending follow-up with bariatric surgeon outpatient For GI prophylaxis patient is on Protonix for DVT prophylaxis Will add Lovenox 40 mg subcu daily I performed an examination of the patient and discussed their management with the physician Food Service Agent. I have reviewed the Physician Food Service Agent's notes and agree with the documented findings and plan of care
[2018-08-06 16:21] LABS: Iron Saturation 6.34 (12.00-45.00)
[2018-08-06 16:58] LABS: Glucose,Whole Blood 84 mg/dL (75-99)
[2018-08-06] MEDS: LEVOFLOXACIN 500MG-D5W PMX 500 MG in DEXTROSE/WATER 1 100ML.BAG IVPB SCH (16:59)
[2018-08-06] MEDS ORDERED: SODIUM FERRIC GLUCONAT-SUCROSE 125 MG in SODIUM CHLORIDE 0.9% 100 ML IVPB ONE (18:00)
[2018-08-06 20:43] LABS: Glucose,Whole Blood 108 mg/dL (75-99)
[2018-08-06] MEDS: TAMSULOSIN 0.4 MG CAP.ER.24H PO SCH (21:36)
[2018-08-06] MEDS: SIMVASTATIN 40 MG PO SCH (21:41)
[2018-08-06] MEDS: ZOLPIDEM 10 MG TAB PO PRN (21:41)
[2018-08-07] MEDS: metroNIDAZOLE-NS PMX 500 MG in SALINE 1 100ML.BAG IVPB SCH ×3 (00:30→16:51)
[2018-08-07] MEDS: HYDROmorphone 1 MG/ML 1 ML SYRINGE IVP PRN ×5 (03:15→22:06)
[2018-08-07] MEDS: diphenhydrAMINE 25 MG CAP PO PRN ×2 (03:16→08:30)
[2018-08-07] MEDS: SODIUM CHLORIDE 0.9% 1,000 ML IV SCH ×2 (07:23→15:31)
[2018-08-07 07:50] LABS: Glucose,Whole Blood 94 mg/dL (75-99)
[2018-08-07] MEDS: BIOTIN 10000 UNIT PO SCH (08:17)
[2018-08-07] MEDS: ENOXAPARIN 40 MG/0.4 ML SYRINGE SQ SCH (08:18)
[2018-08-07] MEDS: PANTOPRAZOLE 40 MG/10 ML VIAL IVP SCH (08:18)
[2018-08-07] MEDS: FUROSEMIDE 20 MG TAB PO SCH ×2 (08:19→15:30)
[2018-08-07] MEDS: DIAZEPAM 5 MG TAB PO SCH (08:19)
[2018-08-07] MEDS: CHOLECALCIFEROL 1,000 UNIT TAB PO SCH (08:19)
[2018-08-07] MEDS: LORATADINE 10 MG TAB PO SCH (08:19)
[2018-08-07] MEDS: MULTIVITAMINS, THERA 1 EACH TAB PO SCH (08:19)
[2018-08-07] MEDS: ASPIRIN 325 MG TAB PO SCH (08:19)
[2018-08-07] MEDS: metFORMIN 500 MG TAB PO SCH (08:19)
[2018-08-07] MEDS: buPROPion XL 300 MG TAB.ER.24H PO SCH (08:19)
[2018-08-07] MEDS: ESCITALOPRAM 20 MG TAB PO SCH (08:19)
[2018-08-07 09:24] LABS: Anisocytosis Slight; Basophils % (A) 1 %; Eosinophils # (A) 0.2 k/uL (0-0.7); Eosinophils % (A) 4 %; HCT 28.1 % (34.0-46.0); Hypochromasia Marked; Lymphocytes # (A) 2.2 k/uL (1.0-4.8); Lymphocytes % (A) 34 %; MCH 19.5 pg (25.0-35.0); MCHC 28.6 g/dL (31.0-37.0); Microcytosis Marked; Monocytes # (A) 0.5 k/uL (0-1.0); Monocytes % (A) 7 %; Neutrophils # (A) 3.3 k/uL (1.3-7.7); Neutrophils % (A) 52 %; Platelet Count 304 k/uL (150-450); RBC 4.13 m/uL (3.80-5.40); RDW 17.5 % (11.5-15.5); WBC 6.3 k/uL (3.8-10.6)
[2018-08-07 09:36] LABS: ALT 34 U/L (9-52); AST 34 U/L (14-36); Albumin 3.2 g/dL (3.5-5.0); Alkaline Phosphatase 86 U/L (38-126); Anion Gap 8 mmol/L; Blood Urea Nitrogen 5 mg/dL (7-17); Calcium 8.8 mg/dL (8.4-10.2); Carbon Dioxide 25 mmol/L (22-30); Chloride 109 mmol/L (98-107); Glucose 164 mg/dL (74-99); Sodium 142 mmol/L (137-145); Total Bilirubin 0.4 mg/dL (0.2-1.3)
[2018-08-07 11:40] LABS: Glucose,Whole Blood 100 mg/dL (75-99)
--- NOTE | 2018-08-07 12:18 | P.PN ---
Subjective Progress Note Date: 08/07/18 Principal diagnosis: Abdominal pain Patient still having issues with diarrhea. Stool studies negative. Pain is about the same a slightly better. She is afebrile. Objective - Vital Signs Vital signs: Vital Signs Temp 97.3 F L 08/07/18 06:08 Pulse 78 08/07/18 06:08 Resp 17 08/07/18 06:08 BP 101/66 08/07/18 06:08 Pulse Ox 97 08/07/18 06:08 Intake & Output 08/06/18 08/07/18 08/07/18 18:59 06:59 18:59 Intake Total 200 Balance 200 Intake: Oral 200 Other: Voiding Method Toilet # Voids 2 2 # Bowel Movements 3 1 - Exam Abdomen: Soft, nondistended, mild left-sided tenderness - Labs CBC & Chem 7: 08/07/18 08:30 08/07/18 08:30 Labs: Abnormal Lab Results - Last 24 Hours (Table) 08/06/18 08/06/18 08/06/18 Range/Units 09:50 09:50 11:30 Hgb (11.4-16.0) gm/dL Hct (34.0-46.0) % MCV (80.0-100.0) fL MCH (25.0-35.0) pg MCHC (31.0-37.0) g/dL RDW (11.5-15.5) % Chloride (98-107) mmol/L BUN (7-17) mg/dL Glucose (74-99) mg/dL POC Glucose (mg/dL) (75-99) mg/dL Iron 23 L (50-170) ug/dL Iron Saturation 6.34 L (12.00-45.00) Ferritin 9.4 L (10.0-291.0) ng/mL Total Protein (6.3-8.2) g/dL Albumin (3.5-5.0) g/dL Stool Lactoferrin POSITIVE H (NEGATIVE) 08/06/18 08/07/18 08/07/18 Range/Units 20:42 08:30 08:30 Hgb 8.0 L (11.4-16.0) gm/dL Hct 28.1 L (34.0-46.0) % MCV 68.0 L (80.0-100.0) fL MCH 19.5 L (25.0-35.0) pg MCHC 28.6 L (31.0-37.0) g/dL RDW 17.5 H (11.5-15.5) % Chloride 109 H (98-107) mmol/L BUN 5 L (7-17) mg/dL Glucose 164 H (74-99) mg/dL POC Glucose (mg/dL) 108 H (75-99) mg/dL Iron (50-170) ug/dL Iron Saturation (12.00-45.00) Ferritin (10.0-291.0) ng/mL Total Protein 6.0 L (6.3-8.2) g/dL Albumin 3.2 L (3.5-5.0) g/dL Stool Lactoferrin (NEGATIVE) 08/07/18 Range/Units 11:37 Hgb (11.4-16.0) gm/dL Hct (34.0-46.0) % MCV (80.0-100.0) fL MCH (25.0-35.0) pg MCHC (31.0-37.0) g/dL RDW (11.5-15.5) % Chloride (98-107) mmol/L BUN (7-17) mg/dL Glucose (74-99) mg/dL POC Glucose (mg/dL) 100 H (75-99) mg/dL Iron (50-170) ug/dL Iron Saturation (12.00-45.00) Ferritin (10.0-291.0) ng/mL Total Protein (6.3-8.2) g/dL Albumin (3.5-5.0) g/dL Stool Lactoferrin (NEGATIVE) Microbiology - Last 24 Hours (Table) 08/05/18 12:55 Urine Culture - Final Urine,Voided 08/06/18 11:30 Stool Culture - Preliminary Stool Assessment and Plan (1) Abdominal pain Narrative/Plan: Patient with ongoing issues related to diarrhea. Stool studies negative for infection. Will begin Imodium. Defer to GI for further management of the patient's chronic abdominal pain and diarrhea. We'll sign off. Please call if needed. Current Visit: Yes Status: Acute Code(s): R10.9 - UNSPECIFIED ABDOMINAL PAIN SNOMED Code(s): 60588141
--- NOTE | 2018-08-07 12:52 | P.PN ---
Subjective Progress Note Date: 08/07/18 Bella Thakur is a 48-year-old female who presented to [facility] emergency room with a chief complaint of abdominal pain, patient describes severe pain in the left upper quadrant and the left lower quadrant, for the last 3 weeks she states that she had diarrhea last week and received Imodium and has not had a bowel movement for the last 3 days. She follows with Dr. Knight and her primary care physician she has also seen Dr. Castillo in the past who did an endoscopy previously. Patient was evaluated in the emergency room, she had evidence of urinary tract infection, she also had anemia with hemoglobin of 8.8 which is a change from before. Computed tomography scan of the abdomen and pelvis was done in the emergency room without IV contrast due to ALLERGY to contrast. CT failed to reveal any significant abnormality. Patient was started on antibiotic Levaquin and Flagyl, for urinary tract infection and presumed diverticulitis and was admitted to medical floor for further evaluation and treatment, surgical consultation with Dr. Castillo was initiated. On 08/05/2018 patient is currently resting in bed. Patient does state some improvement with abdominal pain. Patient states she's had about 5 loose bowel movements since midnight. Patient denies chest pain or shortness of breath. Patient denies nausea vomiting or diarrhea. Patient urinary burning or frequency. 08/06/2018 patient started having diarrhea last night. She's had almost 10 watery stools. She reports no blood in the stool. Stool for C. diff has been ordered. Patient does report eating salads at home just prior to the salad recall. No recent traveling. Reports no one around her with diarrhea. Patient is currently being treated for diverticulitis and possible UTI. She remains on Levaquin and Flagyl. Patient did have some hypotension through the evening. Blood pressures are now improving. Hemoglobin is 7.9. Iron studies ordered. Stool for occult blood was negative. Patient denies any chest pain or shortness of breath. Still having left-sided abdominal pain. Also due to patient's hypotension we'll increase the fluids normal saline at 100 mL an hour. Patient had hypotension yesterday. Possibly related to the IV Dilaudid. Blood pressure now showing improvement at 101/68. Unfortunately patient has multiple pain medication ALLERGIES. At this time we'll continue the Dilaudid change frequency to every 4 hours as needed instead of 3. On 08/07/2018 patient currently resting in bed. Patient still complaining of some abdominal discomfort and diarrhea. Blood pressure is improved below 100s at this time. Patient denies chest pain or shortness breath. Patient denies nausea or vomitting. C. diff was negative. Objective - Vital Signs Vital signs: Vital Signs Temp 97.3 F L 08/07/18 06:08 Pulse 78 08/07/18 06:08 Resp 17 08/07/18 06:08 BP 101/66 08/07/18 06:08 Pulse Ox 97 08/07/18 06:08 Intake & Output 08/06/18 08/07/18 08/07/18 18:59 06:59 18:59 Intake Total 200 Balance 200 Intake: Oral 200 Other: Voiding Method Toilet # Voids 2 2 # Bowel Movements 3 1 - Exam In general patient is alert and oriented 3 in no apparent distress HEENT head normocephalic and atraumatic Neck is supple no JVD no goiter no lymphadenopathy Chest exam reveals a few scattered crackles bilaterally no wheezing Cardiac exam reveals regular heart sounds no gallops no murmurs Abdomen is soft with diffuse tenderness mostly in the left upper quadrant and left lower quadrant, no palpable masses no organomegaly and normal bowel sounds Extremity exam reveals no edema no cyanosis or clubbing Neurological examination reveals no gross focal deficit - Labs CBC & Chem 7: 08/07/18 08:30 08/07/18 08:30 Labs: Abnormal Lab Results - Last 24 Hours (Table) 08/06/18 08/06/18 08/06/18 Range/Units 09:50 09:50 11:30 Hgb (11.4-16.0) gm/dL Hct (34.0-46.0) % MCV (80.0-100.0) fL MCH (25.0-35.0) pg MCHC (31.0-37.0) g/dL RDW (11.5-15.5) % Chloride (98-107) mmol/L BUN (7-17) mg/dL Glucose (74-99) mg/dL POC Glucose (mg/dL) (75-99) mg/dL Iron 23 L (50-170) ug/dL Iron Saturation 6.34 L (12.00-45.00) Ferritin 9.4 L (10.0-291.0) ng/mL Total Protein (6.3-8.2) g/dL Albumin (3.5-5.0) g/dL Stool Lactoferrin POSITIVE H (NEGATIVE) 08/06/18 08/07/18 08/07/18 Range/Units 20:42 08:30 08:30 Hgb 8.0 L (11.4-16.0) gm/dL Hct 28.1 L (34.0-46.0) % MCV 68.0 L (80.0-100.0) fL MCH 19.5 L (25.0-35.0) pg MCHC 28.6 L (31.0-37.0) g/dL RDW 17.5 H (11.5-15.5) % Chloride 109 H (98-107) mmol/L BUN 5 L (7-17) mg/dL Glucose 164 H (74-99) mg/dL POC Glucose (mg/dL) 108 H (75-99) mg/dL Iron (50-170) ug/dL Iron Saturation (12.00-45.00) Ferritin (10.0-291.0) ng/mL Total Protein 6.0 L (6.3-8.2) g/dL Albumin 3.2 L (3.5-5.0) g/dL Stool Lactoferrin (NEGATIVE) 08/07/18 Range/Units 11:37 Hgb (11.4-16.0) gm/dL Hct (34.0-46.0) % MCV (80.0-100.0) fL MCH (25.0-35.0) pg MCHC (31.0-37.0) g/dL RDW (11.5-15.5) % Chloride (98-107) mmol/L BUN (7-17) mg/dL Glucose (74-99) mg/dL POC Glucose (mg/dL) 100 H (75-99) mg/dL Iron (50-170) ug/dL Iron Saturation (12.00-45.00) Ferritin (10.0-291.0) ng/mL Total Protein (6.3-8.2) g/dL Albumin (3.5-5.0) g/dL Stool Lactoferrin (NEGATIVE) Microbiology - Last 24 Hours (Table) 08/05/18 12:55 Urine Culture - Final Urine,Voided 08/06/18 11:30 Stool Culture - Preliminary Stool Assessment and Plan Assessment: #1 abdominal pain with possible acute diverticulitis. Per surgical services recommend immediate follow-up with her bariatric surgeon Dr. Connell supportive care with IV fluid hydration no immediate surgical intervention needed at this time. She remains on IV Flagyl and Levaquin at this time. C. diff negative. Stool culture is positive for lactoferrin. Per surgical services will be given Imodium. Recommending GI management patient's chronic abdominal pain diarrhea surgical services have signed off. GI services have been consulted #2 urinary tract infection. currently on Levaquin. Repeat urine culture pending #3 anemia hemoglobin down to 7.9 hemoglobin was 10.2 in May,. Stool for occult blood negative. Check iron studies and repeat stool for occult blood #4 underlying history of hyperlipidemia #5 underlying history of migraine headache #6 underlying history of depression #7 underlying history of multiple ALLERGIES #8 history of bariatric surgery Sabino-en-Y [address] Connell. Surgical services recommending follow-up with bariatric surgeon outpatient #9 hypotension. pain meds adjusted. Blood pressures improved flow 100s at this time For GI prophylaxis patient is on Protonix for DVT prophylaxis Will add Lovenox 40 mg subcu daily I performed an examination of the patient and discussed their management with the Nurse Practitioner. I have reviewed the Nurse Practitioner's notes and agree with the documented findings and plan of care
[2018-08-07] MEDS: LOPERAMIDE 2 MG CAP PO SCH ×3 (14:02→22:06)
[2018-08-07] MEDS ORDERED: SODIUM FERRIC GLUCONAT-SUCROSE 125 MG in SODIUM CHLORIDE 0.9% 100 ML IVPB ONE (15:00)
[2018-08-07 17:15] LABS: Glucose,Whole Blood 106 mg/dL (75-99)
[2018-08-07] MEDS: LEVOFLOXACIN 500 MG TAB PO SCH (17:55)
[2018-08-07 21:06] LABS: Glucose,Whole Blood 177 mg/dL (75-99)
[2018-08-07] MEDS: ZOLPIDEM 10 MG TAB PO PRN (22:06)
[2018-08-07] MEDS: TAMSULOSIN 0.4 MG CAP.ER.24H PO SCH (22:06)
[2018-08-07] MEDS: SIMVASTATIN 40 MG PO SCH (22:11)
[2018-08-08] MEDS: metroNIDAZOLE-NS PMX 500 MG in SALINE 1 100ML.BAG IVPB SCH ×2 (00:40→08:05)
[2018-08-08] MEDS: SODIUM CHLORIDE 0.9% 1,000 ML IV SCH ×3 (06:42→20:52)
[2018-08-08 07:35] LABS: Glucose,Whole Blood 104 mg/dL (75-99)
[2018-08-08] MEDS: ENOXAPARIN 40 MG/0.4 ML SYRINGE SQ SCH (08:05)
[2018-08-08] MEDS: ESCITALOPRAM 20 MG TAB PO SCH (08:06)
[2018-08-08] MEDS: FUROSEMIDE 20 MG TAB PO SCH ×2 (08:06→16:00)
[2018-08-08] MEDS: HYDROmorphone 1 MG/ML 1 ML SYRINGE IVP PRN ×2 (08:06→20:29)
[2018-08-08] MEDS: CHOLECALCIFEROL 1,000 UNIT TAB PO SCH (08:06)
[2018-08-08] MEDS: PANTOPRAZOLE 40 MG TABLET PO SCH (08:06)
[2018-08-08] MEDS: LORATADINE 10 MG TAB PO SCH (08:06)
[2018-08-08] MEDS: metFORMIN 500 MG TAB PO SCH (08:06)
[2018-08-08] MEDS: MULTIVITAMINS, THERA 1 EACH TAB PO SCH (08:06)
[2018-08-08] MEDS: buPROPion XL 300 MG TAB.ER.24H PO SCH (08:06)
[2018-08-08] MEDS: DIAZEPAM 5 MG TAB PO SCH (08:06)
[2018-08-08] MEDS: ASPIRIN 325 MG TAB PO SCH (08:06)
[2018-08-08] MEDS: diphenhydrAMINE 25 MG CAP PO PRN ×2 (08:06→23:08)
[2018-08-08] MEDS: LOPERAMIDE 2 MG CAP PO SCH ×4 (08:06→20:29)
[2018-08-08 08:49] LABS: Anisocytosis Slight; Basophils # (A) 0.1 k/uL (0-0.2); Basophils % (A) 1 %; Eosinophils # (A) 0.2 k/uL (0-0.7); Eosinophils % (A) 4 %; HCT 28.4 % (34.0-46.0); HGB 8.3 gm/dL (11.4-16.0); Hypochromasia Marked; Lymphocytes # (A) 2.2 k/uL (1.0-4.8); Lymphocytes % (A) 35 %; MCHC 29.2 g/dL (31.0-37.0); MCV 68.7 fL (80.0-100.0); Mean Platelet Volume 6.3; Microcytosis Marked; Monocytes # (A) 0.4 k/uL (0-1.0); Monocytes % (A) 6 %; Neutrophils # (A) 3.1 k/uL (1.3-7.7); Neutrophils % (A) 51 %; Platelet Count 282 k/uL (150-450); RBC 4.13 m/uL (3.80-5.40); RDW 18.1 % (11.5-15.5); WBC 6.1 k/uL (3.8-10.6)
[2018-08-08 09:23] LABS: ALT 39 U/L (9-52); AST 60 U/L (14-36); Albumin 3.3 g/dL (3.5-5.0); Alkaline Phosphatase 79 U/L (38-126); Anion Gap 8 mmol/L; Blood Urea Nitrogen 5 mg/dL (7-17); Calcium 8.4 mg/dL (8.4-10.2); Carbon Dioxide 24 mmol/L (22-30); Chloride 109 mmol/L (98-107); Glucose 95 mg/dL (74-99); Potassium 3.3 mmol/L (3.5-5.1); Sodium 141 mmol/L (137-145); Total Bilirubin 0.2 mg/dL (0.2-1.3); Total Protein 5.9 g/dL (6.3-8.2)
[2018-08-08] MEDS ORDERED: POTASSIUM CHLORIDE ER 20 MEQ TAB.ER PO STA (10:00)
--- NOTE | 2018-08-08 11:27 | P.PN ---
Subjective Progress Note Date: 08/08/18 Bella Thakur is a 48-year-old female who presented to [facility] emergency room with a chief complaint of abdominal pain, patient describes severe pain in the left upper quadrant and the left lower quadrant, for the last 3 weeks she states that she had diarrhea last week and received Imodium and has not had a bowel movement for the last 3 days. She follows with Dr. Knight and her primary care physician she has also seen Dr. Castillo in the past who did an endoscopy previously. Patient was evaluated in the emergency room, she had evidence of urinary tract infection, she also had anemia with hemoglobin of 8.8 which is a change from before. Computed tomography scan of the abdomen and pelvis was done in the emergency room without IV contrast due to ALLERGY to contrast. CT failed to reveal any significant abnormality. Patient was started on antibiotic Levaquin and Flagyl, for urinary tract infection and presumed diverticulitis and was admitted to medical floor for further evaluation and treatment, surgical consultation with Dr. Castillo was initiated. On 08/05/2018 patient is currently resting in bed. Patient does state some improvement with abdominal pain. Patient states she's had about 5 loose bowel movements since midnight. Patient denies chest pain or shortness of breath. Patient denies nausea vomiting or diarrhea. Patient urinary burning or frequency. 08/06/2018 patient started having diarrhea last night. She's had almost 10 watery stools. She reports no blood in the stool. Stool for C. diff has been ordered. Patient does report eating salads at home just prior to the salad recall. No recent traveling. Reports no one around her with diarrhea. Patient is currently being treated for diverticulitis and possible UTI. She remains on Levaquin and Flagyl. Patient did have some hypotension through the evening. Blood pressures are now improving. Hemoglobin is 7.9. Iron studies ordered. Stool for occult blood was negative. Patient denies any chest pain or shortness of breath. Still having left-sided abdominal pain. On 08/07/2018 patient currently resting in bed. Patient still complaining of some abdominal discomfort and diarrhea. Blood pressure is improved below 100s at this time. Patient denies chest pain or shortness breath. Patient denies nausea or vomitting. C. diff was negative. 08/08/2018. Patient still reporting multiple loose stools. Imodium started yesterday. Surgical service has signed off. Awaiting GI evaluation. Patient does report loose stools after eating. She did receive a dose of IV iron yesterday. She cannot tolerate oral iron. Hemoglobin has increased from 8 to 8.3 Objective - Vital Signs Vital signs: Vital Signs Temp 97.8 F 08/08/18 07:00 Pulse 77 08/08/18 07:00 Resp 18 08/08/18 07:00 BP 94/60 08/08/18 07:00 Pulse Ox 98 08/08/18 07:00 Intake & Output 08/07/18 08/08/18 08/08/18 18:59 06:59 18:59 Intake Total 800 1000 Balance 800 1000 Intake: IV 600 Sodium Chloride 0.9% 1, 500 000 ml @ 100 mls/hr IV . Q10H VICTORINO Rx#:[id number] metroNIDAZOLE-NS PMX 500 100 mg In Saline 1 100ml.bag @ 100 mls/hr IVPB Q8HR VICTORINO Rx#:[id number] Oral 200 1000 Other: Voiding Method Toilet # Voids 1 - Exam Head normocephalic Neck supple Lungs clear to auscultation bilaterally no wheezing or crackles Heart regular rate and rhythm S1-S2, no rub or gallop Abdomen is soft left-sided abdominal tenderness nondistended positive bowel sounds no hepatosplenomegaly Extremities no edema Neuro alert and orientated to 3 - Labs CBC & Chem 7: 08/08/18 08:00 08/08/18 08:00 Labs: Abnormal Lab Results - Last 24 Hours (Table) 08/07/18 08/07/18 08/07/18 Range/Units 11:37 17:12 20:57 Hgb (11.4-16.0) gm/dL Hct (34.0-46.0) % MCV (80.0-100.0) fL MCH (25.0-35.0) pg MCHC (31.0-37.0) g/dL RDW (11.5-15.5) % Potassium (3.5-5.1) mmol/L Chloride (98-107) mmol/L BUN (7-17) mg/dL POC Glucose (mg/dL) 100 H 106 H 177 H (75-99) mg/dL AST (14-36) U/L Total Protein (6.3-8.2) g/dL Albumin (3.5-5.0) g/dL 08/08/18 08/08/18 08/08/18 Range/Units 07:32 08:00 08:00 Hgb 8.3 L (11.4-16.0) gm/dL Hct 28.4 L (34.0-46.0) % MCV 68.7 L (80.0-100.0) fL MCH 20.0 L (25.0-35.0) pg MCHC 29.2 L (31.0-37.0) g/dL RDW 18.1 H (11.5-15.5) % Potassium 3.3 L (3.5-5.1) mmol/L Chloride 109 H (98-107) mmol/L BUN 5 L (7-17) mg/dL POC Glucose (mg/dL) 104 H (75-99) mg/dL AST 60 H (14-36) U/L Total Protein 5.9 L (6.3-8.2) g/dL Albumin 3.3 L (3.5-5.0) g/dL Assessment and Plan Assessment: #1 abdominal pain with possible acute diverticulitis. Per surgical services recommend immediate follow-up with her bariatric surgeon Dr. Connell supportive care with IV fluid hydration no immediate surgical intervention needed at this time. She remains on IV Flagyl and Levaquin at this time. Stool for C. diff negative. Lactoferrin is positive. Continue with the Imodium. Patient still having diarrhea. Awaiting GI evaluation. #2 urinary tract infection. She currently on Levaquin. Urine culture negative #3 iron deficiency anemia: Patient is receiving IV iron. She cannot tolerate oral iron. Stool for occult blood negative. #4 underlying history of hyperlipidemia #5 underlying history of migraine headache #6 underlying history of depression #7 underlying history of multiple ALLERGIES #8 history of bariatric surgery Sabino-en-Y [address] Connell. Surgical services recommending follow-up with bariatric surgeon outpatient #9 hypokalemia patient receiving potassium supplement For GI prophylaxis patient is on Protonix for DVT prophylaxis Will add Lovenox 40 mg subcu daily I performed an examination of the patient and discussed their management with the physician Rotary Swaging 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. I have reviewed the Physician Rotary Swaging 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's notes and agree with the documented findings and plan of care
[2018-08-08] MEDS: BIOTIN 10000 UNIT PO SCH (12:00)
[2018-08-08 12:02] LABS: Glucose,Whole Blood 128 mg/dL (75-99)
--- NOTE | 2018-08-08 13:14 | P.CONS ---
History of Present Illness - Reason for Consult Consult date: 08/08/18 Diarrhea Requesting physician: Bushra Elliott - Chief Complaint diarrhea - History of Present Illness 48-year-old female with a past medical history of Sabino-en-Y gastric bypass presents with lower abdominal discomfort and diarrhea. Patient normally has 4- 5 nonbloody bowel movements a day but this past Sunday in increased 8-10 times a day. Denies hematemesis many keys or melena. She is expressing some bilateral lower abdominal discomfort nothing severe. No fever or chills. Denies any changes in her medications sick contacts or recent travels. No changes in her diet. No new medications. C. diff negative. Stool lactoferrin positive. CT of the abdomen and pelvis no sign of acute abdomen and pelvis. She has been seen by surgical services they have signed off. Today she's had a bowel movement since last night. She is tolerating a regular diet without nausea or emesis. Imodium 2 mg 4 times a day ordered yesterday. White count 6.1-7.5. Hemoglobin 8.3-8.9. MCV 66-68. Ova parasite giardia antigen negative. FOBT negative. LFTs amylase lipase within normal limits. Colonoscopy [address] Castillo her memory was unremarkable. Review of Systems Constitutional: Denies fever, chills, sweats, weight gain, or loss. HEENT: Negative for migraines, blurred vision or loss, earaches, drainage, tinnitus, oral mucosal lesions, dysphagia, or odynophagia. CARDIAC: Negative for chest pain, arrhythmias, or palpitation. RESPIRATORY: Negative for shortness of breath, hemoptysis, cough, or sputum production. GI: See HPI for pertinent findings. : Negative for hematuria, urgency, frequency, polyuria, or dysuria. GYNc: Denies possibility of . Negative vaginal discharge. MUSCULOSKELETAL: Negative for muscle aches, swelling, arthritis, and arthralgias. NEUROLOGIC: Negative for stroke or TIA. ENDOCRINE: Negative for thyroid problems. SKIN: Negative for rash or itching. PSYCHIATRIC: Negative history for depression and anxiety Past Medical History Past Medical History: Asthma, CVA/TIA, Diabetes Mellitus, GERD/Reflux, Hyperlipidemia, Hypertension, Osteoarthritis (OA), Pneumonia Additional Past Medical History / Comment(s): "no longer takes meds for bp "NIDDM. past tia 2015. diabetic neuropathy eli feet, migraines, cervical disc disease, DDD, eli tinnitis, arthiritis bilateral shoulders, poss fibromyalgia- pt in process of being diagnosed, seasonal allergies, IBS, HX R arm fx yrs ago , R ovarian cyst, hiatal hernia, UTIs, urinary calculus, pancreatitis x 2, stomach ulcer. pt stated she had a pne vaccine approx 2 years ago,marketing writer unable to verify date at time of this this admit. History of Any Multi-Drug Resistant Organisms: None Reported Year Discovered:: None MDRO Source:: None Past Surgical History: Appendectomy, Bariatric Surgery, Cholecystectomy, Tonsillectomy Additional Past Surgical History / Comment(s): 2010 sabino-en-Y, fistula repair 2011, 2011 gastric bypass revision, bowel resection, lap gastrojejunostomy anastamosis revision, EGD and colonoscopy, cone bx-cervical cancer remove with cryo, L fallopian tube removed due to cyst, picc line in and out, CERVICAL FUSION 12/21/16. Past Anesthesia/Blood Transfusion Reactions: Family History of Problems w/ Anesthesia, Motion Sickness, Postoperative Nausea & Vomiting (PONV) Additional Past Anesthesia/Blood Transfusion Reaction / Comm: Pt states she has never recieved blood. FAMILY HX PONV. Past Psychological History: Anxiety, Depression Additional Psychological History / Comment(s): Pt lives with her significant other-common law . Smoking Status: Never smoker Past Alcohol Use History: None Reported Past Drug Use History: None Reported Additional Drug Use History / Comment(s): Pt has a medical marijuana card and tried using it for pain control but it makes her nauseated so she does not use marijuana at all. - Past Family History Brother(s) Family Medical History: Deep Vein Thrombosis (DVT) Father Family Medical History: Cancer Additional Family Medical History / Comment(s): Father had poss colon and lung cancer and at age 73yrs. Mother Family Medical History: Coronary Artery Disease (CAD), Diabetes Mellitus, Deep Vein Thrombosis (DVT), Hypertension Additional Family Medical History / Comment(s): Mother is alive and 73 yrs old. Medications and Allergies Home Medications Medication Instructions Recorded Confirmed Type Furosemide [Lasix] 20 mg PO BID 09/19/16 08/03/18 History LORazepam [Ativan] 0.5 mg PO TID PRN 09/27/17 08/03/18 History buPROPion HCL [Wellbutrin XL] 300 mg PO DAILY 09/27/17 08/03/18 History metFORMIN HCL [Glucophage] 500 mg PO DAILY 09/27/17 08/03/18 History Escitalopram [Lexapro] 20 mg PO DAILY 01/15/18 08/03/18 History Tamsulosin HCl [Flomax] 0.4 mg PO HS 01/15/18 08/03/18 History Rizatriptan Benzoate [Maxalt ETHYLBENZENE CONVERTER HELPER] 10 mg PO DAILY PRN 03/06/18 08/03/18 History Zolpidem Tartrate [Ambien] 10 mg PO HS PRN 03/06/18 08/03/18 History Aspirin 325 mg PO DAILY 06/13/18 08/03/18 History Biotin 300 mcg PO DAILY 06/13/18 08/03/18 History Cetirizine HCl [Zyrtec] 10 mg PO DAILY 06/13/18 08/03/18 History Cholecalciferol (Vitamin D3) 2,000 unit PO DAILY 06/13/18 08/03/18 History [Vitamin D3] Omeprazole 20 mg PO DAILY 06/13/18 08/03/18 History SUMAtriptan SUCCINATE [Sumavel 6 mg SQ Q2HR PRN 06/13/18 08/03/18 History Dosepro] Diazepam [Valium] 5 mg PO DAILY 08/03/18 08/03/18 History Docusate [Colace] 100 mg PO DAILY 08/03/18 08/03/18 History Multivitamins, Thera [Multivitamin 1 tab PO DAILY 08/03/18 08/03/18 History (formulary)] Ondansetron [Zofran ODT] 1 tab SUBLINGUAL BID 08/03/18 08/03/18 History Simvastatin [Zocor] 20 mg PO HS 08/03/18 08/03/18 History Allergies Allergy/AdvReac Type Severity Reaction Status Date / Time oxycodone [From Percocet] Allergy Unknown Swelling; Verified 08/03/18 17:17 (WAS ABLE TO TAKE ALONG WITH BENADRYL) apricot Allergy Dyspnea Verified 08/03/18 17:17 barium sulfate Allergy Anaphylaxis Verified 08/03/18 17:17 [From Readi-Cat] codeine Allergy Anaphylaxis Verified 08/03/18 17:17 hydrocodone [From Lortab] Allergy Swelling Verified 08/03/18 17:17 Iodinated Contrast- Oral and Allergy Anaphylaxis Verified 08/03/18 17:17 IV Dye iodine Allergy Rash/Hives Verified 08/03/18 17:17 morphine Allergy Rash/Hives Verified 08/03/18 17:17 peach Allergy Swelling Verified 08/03/18 17:17 peanut Allergy Swelling Verified 08/03/18 17:17 peanut oil Allergy Anaphylaxis Verified 08/03/18 17:17 shellfish derived [Shellfish] Allergy Anaphylaxis Verified 08/03/18 17:17 strawberry Allergy Anaphylaxis Verified 08/03/18 17:17 sucralfate [From Carafate] Allergy Swelling Verified 08/03/18 17:17 Sulfa (Sulfonamide Allergy Anaphylaxis Verified 08/03/18 17:17 Antibiotics) sulfamethoxazole Allergy Anaphylaxis Verified 08/03/18 17:17 [From Bactrim] tree nut [Nut] Allergy Swelling Verified 08/03/18 17:17 trimethoprim [From Bactrim] Allergy Anaphylaxis Verified 08/03/18 17:17 Physical Exam Vitals: Vital Signs Temp Pulse Resp BP BP Pulse Ox 08/08/18 07:00 97.8 F 77 18 94/60 98 08/07/18 23:00 98.4 F 81 18 90/58 95 08/07/18 15:00 97.7 F 87 16 92/60 100 Intake and Output 08/07/18 08/08/18 08/08/18 22:59 06:59 14:59 Intake Total 500 500 Balance 500 500 Intake: Oral 500 500 Other: Voiding Method Toilet # Voids 1 1 General appearance: The patient is alert, oriented, in no acute distress. HET: Head is normocephalic and atraumatic. Pupils are equal and reactive. Oropharynx is clear without lesions. Neck: Supple without lymphadenopathy. Trachea midline. Heart: S1 S2. Regular rate and rhythm. Lungs: No crackles or wheezes are heard. Abdomen: Soft, bilateral lower abdominal mild tenderness, nondistended with bowel sounds. No peritoneal signs. No palpable organomegaly or masses. Extremities: Normal skin color and turgor. No cyanosis, rash, ulceration, clubbing, or edema. Radial and pedal pulses are 2/4 bilaterally. Neurological: No focal deficits. Strength and sensation are grossly intact. Results CBC & Chem 7: 08/08/18 08:00 08/08/18 08:00 Labs: Abnormal Lab Results - Last 24 Hours (Table) 08/07/18 08/07/18 08/08/18 Range/Units 17:12 20:57 07:32 Hgb (11.4-16.0) gm/dL Hct (34.0-46.0) % MCV (80.0-100.0) fL MCH (25.0-35.0) pg MCHC (31.0-37.0) g/dL RDW (11.5-15.5) % Potassium (3.5-5.1) mmol/L Chloride (98-107) mmol/L BUN (7-17) mg/dL POC Glucose (mg/dL) 106 H 177 H 104 H (75-99) mg/dL AST (14-36) U/L Total Protein (6.3-8.2) g/dL Albumin (3.5-5.0) g/dL 08/08/18 08/08/18 08/08/18 Range/Units 08:00 08:00 11:59 Hgb 8.3 L (11.4-16.0) gm/dL Hct 28.4 L (34.0-46.0) % MCV 68.7 L (80.0-100.0) fL MCH 20.0 L (25.0-35.0) pg MCHC 29.2 L (31.0-37.0) g/dL RDW 18.1 H (11.5-15.5) % Potassium 3.3 L (3.5-5.1) mmol/L Chloride 109 H (98-107) mmol/L BUN 5 L (7-17) mg/dL POC Glucose (mg/dL) 128 H (75-99) mg/dL AST 60 H (14-36) U/L Total Protein 5.9 L (6.3-8.2) g/dL Albumin 3.3 L (3.5-5.0) g/dL CT scan - abdomen: report reviewed (Dr. Hicks) Assessment and Plan (1) Diarrhea Narrative/Plan: 48-year-old female with a history of Sabino-en-Y gastric bypass presents with a 4 day history of acute nonbloody diarrheal illness possible gastroenteritis possible self limiting infectious enteritis colitis. Clostridium difficile testing negative stool lactoferrin positive. Presently receiving antibiotic therapy and antidiarrheals with minimal clinical improvement. Colonoscopy reported 1 years ago with unremarkable findings. Current Visit: Yes Status: Acute Code(s): R19.7 - DIARRHEA, UNSPECIFIED SNOMED Code(s): 16276339 (2) Abdominal pain Current Visit: Yes Status: Acute Code(s): R10.9 - UNSPECIFIED ABDOMINAL PAIN SNOMED Code(s): 32395820 (3) History of Sabino-en-Y gastric bypass Current Visit: Yes Status: Acute Code(s): Z98.84 - BARIATRIC SURGERY STATUS SNOMED Code(s): 555187259 Plan: 1. Continue with antidiarrheals. Will add Questran 4 g twice daily 2 hours before meals. Continue with antibiotic therapy. Diet as tolerated. We'll continue to follow with you. Thank you for this kind referral and the opportunity to participate in the care of your patient. This consultation was discussed with Dr. Hicks. The impression and plan of care have been directed as dictated.
[2018-08-08] MEDS: metroNIDAZOLE 500 MG TAB PO SCH ×2 (15:59→23:04)
[2018-08-08] MEDS: LEVOFLOXACIN 500 MG TAB PO SCH (17:04)
[2018-08-08] MEDS: CHOLESTYRAMINE (WITH SUGAR) 4 GM PACKET PO SCH (17:04)
[2018-08-08 17:20] LABS: Glucose,Whole Blood 210 mg/dL (75-99)
[2018-08-08] MEDS: TAMSULOSIN 0.4 MG CAP.ER.24H PO SCH (20:29)
[2018-08-08] MEDS: ZOLPIDEM 10 MG TAB PO PRN (20:30)
[2018-08-08] MEDS: LORazepam 0.5 MG TAB PO PRN (20:30)
[2018-08-08] MEDS: SIMVASTATIN 40 MG PO SCH (20:51)
[2018-08-08 20:52] LABS: Glucose,Whole Blood 100 mg/dL (75-99)
[2018-08-09] MEDS: HYDROmorphone 1 MG/ML 1 ML SYRINGE IVP PRN (06:07)
[2018-08-09 07:09] LABS: Glucose,Whole Blood 92 mg/dL (75-99)
[2018-08-09 07:47] LABS: Anisocytosis Slight; Basophils % (A) 1 %; Eosinophils # (A) 0.3 k/uL (0-0.7); Eosinophils % (A) 4 %; HCT 27.9 % (34.0-46.0); HGB 8.3 gm/dL (11.4-16.0); Hypochromasia Marked; Lymphocytes # (A) 2.3 k/uL (1.0-4.8); Lymphocytes % (A) 35 %; MCH 20.2 pg (25.0-35.0); MCHC 29.7 g/dL (31.0-37.0); MCV 68.2 fL (80.0-100.0); Mean Platelet Volume 6.7; Microcytosis Marked; Monocytes # (A) 0.4 k/uL (0-1.0); Monocytes % (A) 6 %; Neutrophils # (A) 3.5 k/uL (1.3-7.7); Neutrophils % (A) 53 %; Platelet Count 290 k/uL (150-450); RBC 4.09 m/uL (3.80-5.40); RDW 18.5 % (11.5-15.5); WBC 6.6 k/uL (3.8-10.6)
[2018-08-09 08:00] LABS: ALT 51 U/L (9-52); AST 97 U/L (14-36); Albumin 3.3 g/dL (3.5-5.0); Alkaline Phosphatase 75 U/L (38-126); Anion Gap 8 mmol/L; Blood Urea Nitrogen 5 mg/dL (7-17); Calcium 8.5 mg/dL (8.4-10.2); Carbon Dioxide 25 mmol/L (22-30); Chloride 110 mmol/L (98-107); Glucose 90 mg/dL (74-99); Potassium 3.2 mmol/L (3.5-5.1); Sodium 143 mmol/L (137-145); Total Bilirubin 0.3 mg/dL (0.2-1.3)
[2018-08-09] MEDS: ENOXAPARIN 40 MG/0.4 ML SYRINGE SQ SCH (08:21)
[2018-08-09] MEDS: CHOLECALCIFEROL 1,000 UNIT TAB PO SCH (08:21)
[2018-08-09] MEDS: ASPIRIN 325 MG TAB PO SCH (08:21)
[2018-08-09] MEDS: metroNIDAZOLE 500 MG TAB PO SCH (08:21)
[2018-08-09] MEDS: FUROSEMIDE 20 MG TAB PO SCH (08:21)
[2018-08-09] MEDS: PANTOPRAZOLE 40 MG TABLET PO SCH (08:21)
[2018-08-09] MEDS: buPROPion XL 300 MG TAB.ER.24H PO SCH (08:21)
[2018-08-09] MEDS: metFORMIN 500 MG TAB PO SCH (08:21)
[2018-08-09] MEDS: ESCITALOPRAM 20 MG TAB PO SCH (08:21)
[2018-08-09] MEDS: LORATADINE 10 MG TAB PO SCH (08:22)
[2018-08-09] MEDS: CHOLESTYRAMINE (WITH SUGAR) 4 GM PACKET PO SCH (08:22)
[2018-08-09] MEDS: DIAZEPAM 5 MG TAB PO SCH (08:22)
[2018-08-09] MEDS: BIOTIN 10000 UNIT PO SCH (08:22)
[2018-08-09] MEDS: LOPERAMIDE 2 MG CAP PO SCH ×2 (08:27→13:49)
[2018-08-09] MEDS ORDERED: POTASSIUM CHLORIDE ER 20 MEQ TAB.ER PO STA (09:39)
[2018-08-09 10:33] VITALS: BMI 28.8
[2018-08-09] MEDS: SODIUM CHLORIDE 0.9% 1,000 ML IV SCH (10:45)
[2018-08-09] MEDS ORDERED: Magnesium Replacement Protocol 1 EACH MISC MISCELLANE PRN (10:56)
--- NOTE | 2018-08-09 11:19 | P.PN ---
Subjective Progress Note Date: 08/09/18 Principal diagnosis: Diarrhea 6 bowel movements 24 hours improved from day prior. She normally has 4-6 bowel movements daily. Receiving Imodium 2 mg 4 times a day. Denies abdominal pain. Into spitting discharge. Tolerating diet. Afebrile. Objective - Vital Signs Vital signs: Vital Signs Temp 98.1 F 08/09/18 06:32 Pulse 79 08/09/18 06:32 Resp 18 08/09/18 08:00 BP 111/76 08/09/18 06:32 Pulse Ox 96 08/09/18 06:32 Intake & Output 08/08/18 08/09/18 08/09/18 18:59 06:59 18:59 Intake Total 900 1000 Balance 900 1000 Weight 86.183 kg Intake: IV 900 Sodium Chloride 0.9% 1, 800 000 ml @ 100 mls/hr IV . Q10H VICTORINO Rx#:[id number] metroNIDAZOLE-NS PMX 500 100 mg In Saline 1 100ml.bag @ 100 mls/hr IVPB Q8HR VICTORINO Rx#:[id number] Oral 1000 Other: Voiding Method Toilet Toilet # Voids 2 1 # Bowel Movements 6 1 1 - Exam General appearance: The patient is alert, oriented, in no acute distress. HET: Head is normocephalic and atraumatic. Pupils are equal and reactive. Oropharynx is clear without lesions. Neck: Supple without lymphadenopathy. Trachea midline. Heart: S1 S2. Regular rate and rhythm. Lungs: No crackles or wheezes are heard. Abdomen: Soft, nontender, nondistended with bowel sounds. No peritoneal signs. No palpable organomegaly or masses. Extremities: Normal skin color and turgor. No cyanosis, rash, ulceration, clubbing, or edema. Radial and pedal pulses are 2/4 bilaterally. Neurological: No focal deficits. Strength and sensation are grossly intact. - Labs CBC & Chem 7: 08/09/18 07:16 08/09/18 07:16 Labs: Abnormal Lab Results - Last 24 Hours (Table) 08/08/18 08/08/18 08/08/18 Range/Units 11:59 17:15 20:40 Hgb (11.4-16.0) gm/dL Hct (34.0-46.0) % MCV (80.0-100.0) fL MCH (25.0-35.0) pg MCHC (31.0-37.0) g/dL RDW (11.5-15.5) % Potassium (3.5-5.1) mmol/L Chloride (98-107) mmol/L BUN (7-17) mg/dL POC Glucose (mg/dL) 128 H 210 H 100 H (75-99) mg/dL Magnesium (1.6-2.3) mg/dL AST (14-36) U/L Total Protein (6.3-8.2) g/dL Albumin (3.5-5.0) g/dL 08/09/18 08/09/18 08/09/18 Range/Units 07:16 07:16 10:27 Hgb 8.3 L (11.4-16.0) gm/dL Hct 27.9 L (34.0-46.0) % MCV 68.2 L (80.0-100.0) fL MCH 20.2 L (25.0-35.0) pg MCHC 29.7 L (31.0-37.0) g/dL RDW 18.5 H (11.5-15.5) % Potassium 3.2 L (3.5-5.1) mmol/L Chloride 110 H (98-107) mmol/L BUN 5 L (7-17) mg/dL POC Glucose (mg/dL) (75-99) mg/dL Magnesium 1.5 L (1.6-2.3) mg/dL AST 97 H (14-36) U/L Total Protein 6.0 L (6.3-8.2) g/dL Albumin 3.3 L (3.5-5.0) g/dL Assessment and Plan (1) Diarrhea Narrative/Plan: 48-year-old female with a history of Sabino-en-Y gastric bypass presents with a 4 day history of acute nonbloody diarrheal illness possible gastroenteritis possible self limiting infectious enteritis colitis. Clostridium difficile testing negative stool lactoferrin positive. Presently receiving antibiotic therapy and antidiarrheals with clinical improvement. Colonoscopy reported 1 years ago with unremarkable findings. Current Visit: Yes Status: Acute Code(s): R19.7 - DIARRHEA, UNSPECIFIED SNOMED Code(s): 75199742 (2) Abdominal pain Current Visit: Yes Status: Acute Code(s): R10.9 - UNSPECIFIED ABDOMINAL PAIN SNOMED Code(s): 98596674 (3) History of Sabino-en-Y gastric bypass Current Visit: Yes Status: Acute Code(s): Z98.84 - BARIATRIC SURGERY STATUS SNOMED Code(s): 372168620 Plan: 1. Continue with antidiarrheals Imodium 2 mg 4 times a day may increase to 4 mg 4 times a day. Will add Questran 4 g twice daily 2 hours before meals. Continue with antibiotic therapy until discharge. Diet as tolerated. Assessment and plan a care discussed with Dr. Hicks
[2018-08-09 12:14] LABS: Glucose,Whole Blood 108 mg/dL (75-99)
[2018-08-09] MEDS: MULTIVITAMINS, THERA 1 EACH TAB PO SCH (12:19)
[2018-08-09] MEDS: MAGNESIUM SULFATE-D5W PMX 1 GM in DEXTROSE/WATER 1 100ML.BAG IVPB SCH ×2 (12:19→13:45)
--- NOTE | 2018-08-09 13:50 | P.DS ---
Providers Date of admission: 08/03/18 16:34 Expected date of discharge: 08/09/18 Attending physician: Bushra Elliott Consults: 08/03/18 16:33 Consult Physician Routine Consulting Provider: Saul Castillo Consult Reason/Comments: abd pain, diverticulitis Do you want consulting provider notified?: Yes 08/04/18 11:15 Consult Physician Routine Consulting Provider: Saul Castillo Consult Reason/Comments: abdominal pain Do you want consulting provider notified?: Yes 08/07/18 12:51 Consult Physician Routine Consulting Provider: Sahil Hicks Consult Reason/Comments: diarrhea Do you want consulting provider notified?: Yes Primary care physician: Macy Knight Hospital Course: Discharge diagnosis #1 abdominal pain and diarrhea likely related to a gastroenteritis. Per surgical services recommend immediate follow-up with her bariatric surgeon Dr. Connell . Stool for C. diff negative. Lactoferrin is positive. Continue with the Imodium and Questran . patient's diarrhea showing improvement. GI following. #2 urinary tract infection. urine culture negative. Completed antibiotic treatment during hospitalization #3 iron deficiency anemia: Patient is receiving IV iron. She cannot tolerate oral iron. Stool for occult blood negative. hemoglobin at discharge 8.3 #4 underlying history of hyperlipidemia #5 underlying history of migraine headache #6 underlying history of depression #7 underlying history of multiple ALLERGIES #8 history of bariatric surgery Sabino-en-Y [address] Connell. Surgical services recommending follow-up with bariatric surgeon outpatient #9 hypokalemia and hypomagnesemia. She received replacement. Follow-up labs in 5 days Hospital course Bella Thakur is a 48-year-old female who presented to [facility] emergency room with a chief complaint of abdominal pain, patient describes severe pain in the left upper quadrant and the left lower quadrant, for the last 3 weeks she states that she had diarrhea last week and received Imodium and has not had a bowel movement for the last 3 days. She follows with Dr. Knight and her primary care physician she has also seen Dr. Castillo in the past who did an endoscopy previously. Patient was evaluated in the emergency room, she had evidence of urinary tract infection, she also had anemia with hemoglobin of 8.8 which is a change from before. Computed tomography scan of the abdomen and pelvis was done in the emergency room without IV contrast due to ALLERGY to contrast. CT failed to reveal any significant abnormality. Patient was started on antibiotic Levaquin and Flagyl, for urinary tract infection and presumed diverticulitis and was admitted to medical floor for further evaluation and treatment, surgical consultation with Dr. Castillo was initiated. On 08/05/2018 patient is currently resting in bed. Patient does state some improvement with abdominal pain. Patient states she's had about 5 loose bowel movements since midnight. Patient denies chest pain or shortness of breath. Patient denies nausea vomiting or diarrhea. Patient urinary burning or frequency. 08/06/2018 patient started having diarrhea last night. She's had almost 10 watery stools. She reports no blood in the stool. Stool for C. diff has been ordered. Patient does report eating salads at home just prior to the salad recall. No recent traveling. Reports no one around her with diarrhea. Patient is currently being treated for diverticulitis and possible UTI. She remains on Levaquin and Flagyl. Patient did have some hypotension through the evening. Blood pressures are now improving. Hemoglobin is 7.9. Iron studies ordered. Stool for occult blood was negative. Patient denies any chest pain or shortness of breath. Still having left-sided abdominal pain. On 08/07/2018 patient currently resting in bed. Patient still complaining of some abdominal discomfort and diarrhea. Blood pressure is improved below 100s at this time. Patient denies chest pain or shortness breath. Patient denies nausea or vomitting. C. diff was negative. 08/08/2018. Patient still reporting multiple loose stools. Imodium started yesterday. Surgical service has signed off. Awaiting GI evaluation. Patient does report loose stools after eating. She did receive a dose of IV iron yesterday. She cannot tolerate oral iron. Hemoglobin has increased from 8 to 8.3 08/09/2018 patient has been cleared for discharge by both surgical service and GI service. Stools are becoming less frequent and more formed. She'll continue the Questran and Imodium at home. Computed tomography scan did not reveal evidence of diverticulitis. Likely patient's symptoms related to a viral gastroenteritis. No further antibiotic treatment as needed. Patient is anemic with a hemoglobin of 8.3 which is stable. No active signs of bleeding. She refused oral iron. She did get 1 dose of IV iron. Iron was low at 23. Patient's potassium 3.2 and magnesium 1.5. She is receiving supplement before discharge. Again will have repeat blood work drawn in 5 days due to the holiday. Recommend having CBC, CMP, magnesium checked in 5 days. Patient did have slightly elevated AST of 97. Her Zocor was discontinued yesterday. She has a history of a cholecystectomy. No right upper quadrant pain. Patient is medically stable for discharge. We'll follow-up with her PCP in 5 days. Please refer to chart for any further details. I performed an examination of the patient and discussed their management with the physician Merchandising Consultant. I have reviewed the Physician Merchandising Consultant's notes and agree with the documented findings and plan of care Patient Condition at Discharge: Stable Plan - Discharge Summary Discharge Rx Participant: No New Discharge Prescriptions: New Cholestyramine (with Sugar) [Questran Packet] 4 gm PO BID@1000,1800 #14 packet Loperamide [Imodium] 2 mg PO QID PRN #28 cap PRN Reason: Diarrhea Continue Furosemide [Lasix] 20 mg PO BID LORazepam [Ativan] 0.5 mg PO TID PRN PRN Reason: Anxiety metFORMIN HCL [Glucophage] 500 mg PO DAILY buPROPion HCL [Wellbutrin XL] 300 mg PO DAILY Tamsulosin HCl [Flomax] 0.4 mg PO HS Escitalopram [Lexapro] 20 mg PO DAILY Rizatriptan Benzoate [Maxalt NET WPF DEVELOPER] 10 mg PO DAILY PRN PRN Reason: Migraine Headache Zolpidem Tartrate [Ambien] 10 mg PO HS PRN PRN Reason: Insomnia Biotin 300 mcg PO DAILY Aspirin 325 mg PO DAILY SUMAtriptan SUCCINATE [Sumavel Dosepro] 6 mg SQ Q2HR PRN PRN Reason: Migraine Headache Omeprazole 20 mg PO DAILY Cetirizine HCl [Zyrtec] 10 mg PO DAILY Cholecalciferol (Vitamin D3) [Vitamin D3] 2,000 unit PO DAILY Ondansetron [Zofran ODT] 1 tab SUBLINGUAL BID Multivitamins, Thera [Multivitamin (formulary)] 1 tab PO DAILY Docusate [Colace] 100 mg PO DAILY Diazepam [Valium] 5 mg PO DAILY Discontinued Simvastatin [Zocor] 20 mg PO HS Discharge Medication List Furosemide [Lasix] 20 mg PO BID 09/19/16 [History] LORazepam [Ativan] 0.5 mg PO TID PRN 09/27/17 [History] buPROPion HCL [Wellbutrin XL] 300 mg PO DAILY 09/27/17 [History] metFORMIN HCL [Glucophage] 500 mg PO DAILY 09/27/17 [History] Escitalopram [Lexapro] 20 mg PO DAILY 01/15/18 [History] Tamsulosin HCl [Flomax] 0.4 mg PO HS 01/15/18 [History] Rizatriptan Benzoate [Maxalt NET WPF DEVELOPER] 10 mg PO DAILY PRN 03/06/18 [History] Zolpidem Tartrate [Ambien] 10 mg PO HS PRN 03/06/18 [History] Aspirin 325 mg PO DAILY 06/13/18 [History] Biotin 300 mcg PO DAILY 06/13/18 [History] Cetirizine HCl [Zyrtec] 10 mg PO DAILY 06/13/18 [History] Cholecalciferol (Vitamin D3) [Vitamin D3] 2,000 unit PO DAILY 06/13/18 [History] Omeprazole 20 mg PO DAILY 06/13/18 [History] SUMAtriptan SUCCINATE [Sumavel Dosepro] 6 mg SQ Q2HR PRN 06/13/18 [History] Diazepam [Valium] 5 mg PO DAILY 08/03/18 [History] Docusate [Colace] 100 mg PO DAILY 08/03/18 [History] Multivitamins, Thera [Multivitamin (formulary)] 1 tab PO DAILY 08/03/18 [History ] Ondansetron [Zofran ODT] 1 tab SUBLINGUAL BID 08/03/18 [History] Cholestyramine (with Sugar) [Questran Packet] 4 gm PO BID@1000,1800 #14 packet 08/09/18 [Rx] Loperamide [Imodium] 2 mg PO QID PRN #28 cap 08/09/18 [Rx] Follow up Appointment(s)/Referral(s): Macy Knight MD [Primary Care Provider] - 1 Week Patient Instructions/Handouts: Type 2 Diabetes in Adults: New Diagnosis (DC), Abdominal Pain (ED) Activity/Diet/Wound Care/Special Instructions: Diet: diabetic, low fiber Activity; as tolerated Discharge Disposition: HOME SELF-CARE
[2018-08-09] MEDS: ACETAMINOPHEN TAB 325 MG TAB PO PRN (14:11)
[2018-08-09 15:05] VITALS: PULSE 98; RESP 16; TEMP 97.6
[2018-08-09 15:34] VITALS: BP 102/70
== END 2018-08-09 15:50 | disposition home or self-care (01) | DRG 392 ==
LOC: EC 13:38 → 4MS4W 16:34
PROVIDERS: ADMIT Internal Medicine; ATTEND Internal Medicine
DX: K57.92 Diverticulitis of intestine, part unspecified, without perforation or abscess without bleeding (principal); K95.89 Other complications of other bariatric procedure; N39.0 Urinary tract infection, site not specified; A08.4 Viral intestinal infection, unspecified; D50.9 Iron deficiency anemia, unspecified; E11.40 Type 2 diabetes mellitus with diabetic neuropathy, unspecified; Z79.84 Long term (current) use of oral hypoglycemic drugs; E78.5 Hyperlipidemia, unspecified; E83.42 Hypomagnesemia; E86.0 Dehydration; E87.6 Hypokalemia; F32.9 Major depressive disorder, single episode, unspecified; F41.9 Anxiety disorder, unspecified; G89.4 Chronic pain syndrome; I10 Essential (primary) hypertension; J45.909 Unspecified asthma, uncomplicated; K21.9 Gastro-esophageal reflux disease without esophagitis; K58.9 Irritable bowel syndrome, unspecified; Y83.2 Surgical operation with anastomosis, bypass or graft as the cause of abnormal reaction of the patient, or of later complication, without mention of misadventure at the time of the procedure; Z79.82 Long term (current) use of aspirin; Z79.899 Other long term (current) drug therapy; Z80.1 Family history of malignant neoplasm of trachea, bronchus and lung; Z82.49 Family history of ischemic heart disease and other diseases of the circulatory system; Z83.3 Family history of diabetes mellitus; Z83.2 Family history of diseases of the blood and blood-forming organs and certain disorders involving the immune mechanism; Z85.41 Personal history of malignant neoplasm of cervix uteri; Z86.73 Personal history of transient ischemic attack (TIA), and cerebral infarction without residual deficits; Z87.11 Personal history of peptic ulcer disease; Z90.49 Acquired absence of other specified parts of digestive tract; Z98.84 Bariatric surgery status; K44.9 Diaphragmatic hernia without obstruction or gangrene; Z87.440 Personal history of urinary (tract) infections; Z88.2 Allergy status to sulfonamides; Z88.8 Allergy status to other drugs, medicaments and biological substances; Z91.041 Radiographic dye allergy status; Z88.5 Allergy status to narcotic agent; Z91.013 Allergy to seafood; Z98.1 Arthrodesis status; M50.30 Other cervical disc degeneration, unspecified cervical region; G43.909 Migraine, unspecified, not intractable, without status migrainosus
CPT/HCPCS: 36415; 74176; 80053; 81001; 82150; 82272; 82728; 83036; 83540; 83550; 83630; 83690; 83735; 85025; 87045; 87046; 87086; 87324; 87328; 87329; 96374; 96375; 96376; 99285

== ENCOUNTER 2018-08-21 05:00 | Emergency (ER) | payer OTHER ==
[2018-08-21 05:08] VITALS: RESP 18; TEMP 98.1
[2018-08-21 06:02] LABS: Anisocytosis Slight; Basophils # (A) 0.1 k/uL (0-0.2); Basophils % (A) 1 %; Eosinophils # (A) 0.2 k/uL (0-0.7); Eosinophils % (A) 2 %; HCT 32.8 % (34.0-46.0); HGB 9.7 gm/dL (11.4-16.0); Hypochromasia Marked; Lymphocytes # (A) 3.4 k/uL (1.0-4.8); Lymphocytes % (A) 38 %; MCH 20.3 pg (25.0-35.0); MCHC 29.5 g/dL (31.0-37.0); MCV 68.9 fL (80.0-100.0); Mean Platelet Volume 6.5; Microcytosis Marked; Monocytes # (A) 0.4 k/uL (0-1.0); Monocytes % (A) 5 %; Neutrophils # (A) 4.6 k/uL (1.3-7.7); Neutrophils % (A) 52 %; Platelet Count 462 k/uL (150-450); RBC 4.76 m/uL (3.80-5.40); RDW 18.9 % (11.5-15.5); WBC 8.9 k/uL (3.8-10.6)
[2018-08-21 06:11] LABS: ALT 39 U/L (9-52); AST 37 U/L (14-36); Albumin 3.9 g/dL (3.5-5.0); Alkaline Phosphatase 83 U/L (38-126); Amylase 41 U/L (30-110); Anion Gap 10 mmol/L; Blood Urea Nitrogen 15 mg/dL (7-17); Calcium 9.1 mg/dL (8.4-10.2); Carbon Dioxide 24 mmol/L (22-30); Chloride 105 mmol/L (98-107); Glucose 133 mg/dL (74-99); Lipase 77 U/L (23-300); Potassium 4.5 mmol/L (3.5-5.1); Sodium 139 mmol/L (137-145); Total Bilirubin 0.4 mg/dL (0.2-1.3); Total Protein 6.9 g/dL (6.3-8.2)
--- NOTE | 2018-08-21 06:26 | XR ---
EXAM: XR Abdomen, 1 View CLINICAL HISTORY: ITS.REASON XR Reason: abdominal pain TECHNIQUE: Frontal supine view of the abdomen/pelvis. COMPARISON: No relevant prior studies available. Impression: Gastrointestinal tract: No dilation. Multiple clips throughout the abdomen. Bones/joints: No acute fracture. No dislocation.
[2018-08-21 07:06] LABS: Appearance,Urine Clear (Clear); Bilirubin,Urine Negative (Negative); Blood,Urine Small (Negative); Color,Urine Yellow; Glucose,Urine (UA) Negative (Negative); Hyaline Casts,Urine 10 /lpf (0-2); Ketones,Urine Negative (Negative); Leukocyte Esterase,Urine Moderate (Negative); Mucus,Urine Rare /hpf; Nitrite,Urine Negative (Negative); Protein,Urine Negative (Negative); RBC,Urine 3 /hpf (0-5); Specific Gravity,Urine 1.013 (1.001-1.035); Squamous Epithelial Cell,Urine <1 /hpf (0-4); Urobilinogen,Urine <2.0 mg/dL (<2.0); WBC,Urine 18 /hpf (0-5)
[2018-08-21] MEDS ORDERED: SODIUM CHLORIDE 0.9% 1,000 ML IV STA (07:29)
[2018-08-21] MEDS ORDERED: ONDANSETRON 4 MG/2 ML VIAL IVP STA (07:29)
--- NOTE | 2018-08-21 07:29 | ED ---
General Adult HPI - General Chief complaint: Abdominal Pain Stated complaint: Abdominal Pain Source: patient, EMS Mode of arrival: EMS Limitations: no limitations - Related Data Home Medications Medication Instructions Recorded Confirmed Furosemide [Lasix] 20 mg PO BID 09/19/16 08/21/18 LORazepam [Ativan] 0.5 mg PO TID PRN 09/27/17 08/21/18 buPROPion HCL [Wellbutrin XL] 300 mg PO DAILY 09/27/17 08/21/18 metFORMIN HCL [Glucophage] 500 mg PO DAILY 09/27/17 08/21/18 Escitalopram [Lexapro] 20 mg PO DAILY 01/15/18 08/21/18 Tamsulosin HCl [Flomax] 0.4 mg PO HS 01/15/18 08/21/18 Rizatriptan Benzoate [Maxalt SOFTWARE DEVELOPER INTERN] 10 mg PO DAILY PRN 03/06/18 08/21/18 Zolpidem Tartrate [Ambien] 10 mg PO HS PRN 03/06/18 08/21/18 Aspirin 325 mg PO DAILY 06/13/18 08/21/18 Biotin 300 mcg PO DAILY 06/13/18 08/21/18 Cetirizine HCl [Zyrtec] 10 mg PO DAILY 06/13/18 08/21/18 Cholecalciferol (Vitamin D3) 2,000 unit PO DAILY 06/13/18 08/21/18 [Vitamin D3] Omeprazole 20 mg PO DAILY 06/13/18 08/21/18 SUMAtriptan SUCCINATE [Sumavel 6 mg SQ Q2HR PRN 06/13/18 08/21/18 Dosepro] Diazepam [Valium] 5 mg PO DAILY 08/03/18 08/21/18 Docusate [Colace] 100 mg PO DAILY 08/03/18 08/21/18 Multivitamins, Thera [Multivitamin 1 tab PO DAILY 08/03/18 08/21/18 (formulary)] Ondansetron [Zofran ODT] 4 mg SUBLINGUAL BID 08/03/18 08/21/18 Allergies Allergy/AdvReac Type Severity Reaction Status Date / Time oxycodone [From Percocet] Allergy Unknown Swelling; Verified 08/21/18 07:35 (WAS ABLE TO TAKE ALONG WITH BENADRYL) apricot Allergy Dyspnea Verified 08/21/18 07:35 barium sulfate Allergy Anaphylaxis Verified 08/21/18 07:35 [From Readi-Cat] codeine Allergy Anaphylaxis Verified 08/21/18 07:35 hydrocodone [From Lortab] Allergy Swelling Verified 08/21/18 07:35 Iodinated Contrast- Oral and Allergy Anaphylaxis Verified 08/21/18 07:35 IV Dye iodine Allergy Rash/Hives Verified 08/21/18 07:35 morphine Allergy Rash/Hives Verified 08/21/18 07:35 peach Allergy Swelling Verified 08/21/18 07:35 peanut Allergy Swelling Verified 08/21/18 07:35 peanut oil Allergy Anaphylaxis Verified 08/21/18 07:35 shellfish derived [Shellfish] Allergy Anaphylaxis Verified 08/21/18 07:35 strawberry Allergy Anaphylaxis Verified 08/21/18 07:35 sucralfate [From Carafate] Allergy Swelling Verified 08/21/18 07:35 Sulfa (Sulfonamide Allergy Anaphylaxis Verified 08/21/18 07:35 Antibiotics) sulfamethoxazole Allergy Anaphylaxis Verified 08/21/18 07:35 [From Bactrim] tree nut [Nut] Allergy Swelling Verified 08/21/18 07:35 trimethoprim [From Bactrim] Allergy Anaphylaxis Verified 08/21/18 07:35 Review of Systems ROS Statement: Those systems with pertinent positive or pertinent negative responses have been documented in the HPI. ROS Other: All systems not noted in ROS Statement are negative. Past Medical History Past Medical History: Asthma, CVA/TIA, Diabetes Mellitus, GERD/Reflux, Hyperlipidemia, Hypertension, Osteoarthritis (OA), Pneumonia Additional Past Medical History / Comment(s): NIDDM. past tia 2015. diabetic neuropathy eli feet, migraines, cervical disc disease, DDD, eli tinnitis, arthiritis bilateral shoulders, fibrymyalgia,IBS, HX R arm fx yrs ago, R ovarian cyst, hiatal hernia, UTIs, urinary calculus, pancreatitis x 2, stomach ulcer. History of Any Multi-Drug Resistant Organisms: None Reported Date of last positivie culture/infection: None MDRO Source:: None Past Surgical History: Appendectomy, Bariatric Surgery, Cholecystectomy, Tonsillectomy Additional Past Surgical History / Comment(s): 2010 felix-en-Y, fistula repair 2011, 2011 gastric bypass revision, bowel resection, lap gastrojejunostomy anastamosis revision, EGD and colonoscopy, cone bx-cervical cancer remove with cryo, L fallopian tube removed due to cyst, picc line in and out, CERVICAL FUSION 12/21/16. Past Anesthesia/Blood Transfusion Reactions: Family History of Problems w/ Anesthesia, Motion Sickness, Postoperative Nausea & Vomiting (PONV) Additional Past Anesthesia/Blood Transfusion Reaction / Comment(s): Pt states she has never recieved blood. FAMILY HX PONV. Past Psychological History: Anxiety, Depression Smoking Status: Never smoker Past Alcohol Use History: None Reported Past Drug Use History: Marijuana - Past Family History Brother(s) Family Medical History: Deep Vein Thrombosis (DVT) Father Family Medical History: Cancer Additional Family Medical History / Comment(s): Father had poss colon and lung cancer and at age 73yrs. Mother Family Medical History: Coronary Artery Disease (CAD), Diabetes Mellitus, Deep Vein Thrombosis (DVT), Hypertension Additional Family Medical History / Comment(s): Mother is alive and 73 yrs old. General Exam Limitations: no limitations Course Vital Signs 08/21/18 08/21/18 05:02 09:16 Temperature 98.1 F Pulse Rate 66 58 L Respiratory 18 18 Rate Blood Pressure 96/54 102/57 O2 Sat by Pulse 98 100 Oximetry Medical Decision Making - Medical Decision Making Dictation was produced using [employer] dictation software. please excuse any grammatical, word or spelling errors. Chief Complaint: 48-year-old female presents with persistent nausea and vomiting. History of Present Illness: Patient is a 48-year-old female presents with persistent nausea and vomiting. Patient states she was admitted to the hospital for approximately one week. Patient was diagnosed with diverticulitis. She completed a one-week course of antibiotics. Patient still complains of persistent symptoms patient returns today for abdominal pain,, nausea and vomiting. Patient states her emesis is yellow and sometimes green. Patient's diarrhea is yellow in appearance. Chart review shows that patient was discharged with diagnosis of gastroenteritis. She was evaluated by general surgery and gastroenterology and was discharge home with antidiarrheals. The ROS documented in this emergency department record has been reviewed and confirmed by me. Those systems with pertinent positive or negative responses have been documented in the HPI. All other systems are other negative and/or noncontributory. PHYSICAL EXAM: General Impression: Alert and oriented x3, not in acute distress HEENT: Normocephalic atraumatic, extra-ocular movements intact, pupils equal and reactive to light bilaterally, mucous membranes moist. Cardiovascular: Heart regular rate and rhythm, S1&S2 audible, no murmurs, rubs or gallops Chest: Lungs clear to auscultation bilaterally, no rhonchi, no wheeze, no rales Abdomen: Bowel sounds present, abdomen soft, diffuse abdominal tenderness to palpation. Musculoskeletal: Pulses present and equal in all extremities, no peripheral edema Motor: Power 5/5 bilaterally, no focal deficits noted Neurological: CN II-XII grossly intact, no focal motor or sensory deficits noted Skin: Intact with no visualized rashes Psych: Normal affect and mood ED course: 48-year-old female with past medical history of asthma, CVA , diabetes presents with persistent diarrhea, abdominal pain nausea vomiting. Vital signs upon arrival are within acceptable limits. Laboratory evaluation obtained. CBC, metabolic panel, urinalysis unremarkable. KUB shows no acute processes. Abdominal pelvis CT shows no acute processes. Discussed with patient that she would benefit from endoscopy upper and lower. Patient has endoscopy performed in the past. Patient given GI referral. - Lab Data Result diagrams: 08/21/18 05:26 08/21/18 05:26 Lab Results 08/21/18 08/21/18 08/21/18 Range/Units 05:26 05:26 06:44 WBC 8.9 (3.8-10.6) k/uL RBC 4.76 (3.80-5.40) m/uL Hgb 9.7 L (11.4-16.0) gm/dL Hct 32.8 L (34.0-46.0) % MCV 68.9 L (80.0-100.0) fL MCH 20.3 L (25.0-35.0) pg MCHC 29.5 L (31.0-37.0) g/dL RDW 18.9 H (11.5-15.5) % Plt Count 462 H (150-450) k/uL Neutrophils % 52 % Lymphocytes % 38 % Monocytes % 5 % Eosinophils % 2 % Basophils % 1 % Neutrophils # 4.6 (1.3-7.7) k/uL Lymphocytes # 3.4 (1.0-4.8) k/uL Monocytes # 0.4 (0-1.0) k/uL Eosinophils # 0.2 (0-0.7) k/uL Basophils # 0.1 (0-0.2) k/uL Hypochromasia Marked Anisocytosis Slight Microcytosis Marked Sodium 139 (137-145) mmol/L Potassium 4.5 (3.5-5.1) mmol/L Chloride 105 (98-107) mmol/L Carbon Dioxide 24 (22-30) mmol/L Anion Gap 10 mmol/L BUN 15 (7-17) mg/dL Creatinine 0.67 (0.52-1.04) mg/dL Est GFR (CKD-EPI)AfAm >90 (>60 ml/min/1.73 sqM) Est GFR (CKD-EPI)NonAf >90 (>60 ml/min/1.73 sqM) Glucose 133 H (74-99) mg/dL Calcium 9.1 (8.4-10.2) mg/dL Total Bilirubin 0.4 (0.2-1.3) mg/dL AST 37 H (14-36) U/L ALT 39 (9-52) U/L Alkaline Phosphatase 83 (38-126) U/L Total Protein 6.9 (6.3-8.2) g/dL Albumin 3.9 (3.5-5.0) g/dL Amylase 41 (30-110) U/L Lipase 77 (23-300) U/L Urine Color Yellow Urine Appearance Clear (Clear) Urine pH 6.0 (5.0-8.0) Ur Specific [place] 1.013 (1.001-1.035) Urine Protein Negative (Negative) Urine Glucose (UA) Negative (Negative) Urine Ketones Negative (Negative) Urine Blood Small H (Negative) Urine Nitrite Negative (Negative) Urine Bilirubin Negative (Negative) Urine Urobilinogen <2.0 (<2.0) mg/dL Ur Leukocyte Esterase Moderate H (Negative) Urine RBC 3 (0-5) /hpf Urine WBC 18 H (0-5) /hpf Ur Squamous Epith Cells <1 (0-4) /hpf Hyaline Casts 10 H (0-2) /lpf Urine Mucus Rare H (None) /hpf Disposition Clinical Impression: Enteritis Disposition: HOME SELF-CARE Condition: Good Instructions: Enteritis (ED) Is patient prescribed a controlled substance at d/c from ED?: No Referrals: Macy Knight MD [Primary Care Provider] - 1-2 days Time of Disposition: 09:32
[2018-08-21] MEDS ORDERED: FAMOTIDINE 20 MG/2 ML VIAL IV STA (07:46)
[2018-08-21] MEDS ORDERED: diphenhydrAMINE 50 MG/ML 1 ML VIAL IVP STA (07:46)
[2018-08-21] MEDS ORDERED: DEXAMETHASONE SOD PHOSPHATE 10 MG/ML 1 ML VIAL IV STA (07:46)
[2018-08-21] MEDS ORDERED: ACETAMINOPHEN TAB 500 MG TAB PO STA (09:02)
[2018-08-21 09:18] VITALS: BP 102/57; PULSE 58
--- NOTE | 2018-08-21 09:21 | CT ---
EXAMINATION TYPE: CT abdomen pelvis w con DATE OF EXAM: 08/21/2018 COMPARISON: 08/03/2018 HISTORY: 48-year-old female with abdominal pain TECHNIQUE: Contiguous axial scanning of the abdomen and pelvis following administration of 100 ml Iso jeanie 300 IV contrast. Delayed images through the kidneys and coronal/sagittal reconstructions perform ed. CT DLP: 1079.6 mGycm Automated exposure control for dose reduction was used. FINDINGS: Heart normal size without pericardial effusion. Tiny hiatal hernia is suggested. Lung bases clear wit hout pleural effusion. There are postsurgical changes of Sabino-en-Y gastric bypass with what appears to be partial gastrectom y. Some possible fold thickening at the level of the gastric pouch may relate to wall redundancy. Thi s appears to be a side anastomosis with the jejunum. No abnormal dilatation here. The lower anastomosis shows no discrete abnormality. Liver mildly enlarged at 18.9 cm. Bile duct is prominent at 8 mm, acceptable given postcholecystectom y status. Portal venous system is patent. Adrenal glands, kidneys, and spleen with anterior splenule appear within normal limits. Atrophic panc reatic body. No dilated small bowel, free fluid, or free air. Scattered nonenlarged mesenteric lymph nodes are present. Some surgical material at the right lower quadrant suggesting prior appendectomy. Only minimal scattered stool. No pericolonic inflammatory change. Bladder partially distended. Uterus and ovaries are visualized. No abnormal fluid collection in pelvi s or pelvic lymphadenopathy. Some nonspecific soft tissue nodularity in the subcutaneous adipose layer of the lower abdomen may be due to subcutaneous injections. Bones: No osseous destructive process. IMPRESSION: 1. STATUS POST SABINO-EN-Y GASTRIC BYPASS AND PARTIAL GASTRECTOMY. THERE IS SOME SOFT TISSUE THICKENING AT THE LEVEL OF THE GASTRIC POUCH THAT COULD REPRESENT WALL REDUNDANCY OR GASTRITIS. WE NOTE NUMEROU S CT SCANS OVER THE LAST 2 YEARS. CONSIDER GI REFERRAL IF THE PATIENT'S LEFT-SIDED PAIN IS A RECURRE NT PROBLEM. DIRECT VISUALIZATION CLINICALLY INDICATED. 2. THERE IS A TINY HIATAL HERNIA. 3. NO EVIDENCE FOR BOWEL OBSTRUCTION OR OTHER INFLAMMATION IN THE ABDOMEN/PELVIS. 4. MILD HEPATOMEGALY (18.9 CM).
--- NOTE | 2018-08-21 09:35 | ED ---
Medical Decision Making - Lab Data Result diagrams: 08/21/18 05:26 08/21/18 05:26 Lab Results 08/21/18 08/21/18 08/21/18 Range/Units 05:26 05:26 06:44 WBC 8.9 (3.8-10.6) k/uL RBC 4.76 (3.80-5.40) m/uL Hgb 9.7 L (11.4-16.0) gm/dL Hct 32.8 L (34.0-46.0) % MCV 68.9 L (80.0-100.0) fL MCH 20.3 L (25.0-35.0) pg MCHC 29.5 L (31.0-37.0) g/dL RDW 18.9 H (11.5-15.5) % Plt Count 462 H (150-450) k/uL Neutrophils % 52 % Lymphocytes % 38 % Monocytes % 5 % Eosinophils % 2 % Basophils % 1 % Neutrophils # 4.6 (1.3-7.7) k/uL Lymphocytes # 3.4 (1.0-4.8) k/uL Monocytes # 0.4 (0-1.0) k/uL Eosinophils # 0.2 (0-0.7) k/uL Basophils # 0.1 (0-0.2) k/uL Hypochromasia Marked Anisocytosis Slight Microcytosis Marked Sodium 139 (137-145) mmol/L Potassium 4.5 (3.5-5.1) mmol/L Chloride 105 (98-107) mmol/L Carbon Dioxide 24 (22-30) mmol/L Anion Gap 10 mmol/L BUN 15 (7-17) mg/dL Creatinine 0.67 (0.52-1.04) mg/dL Est GFR (CKD-EPI)AfAm >90 (>60 ml/min/1.73 sqM) Est GFR (CKD-EPI)NonAf >90 (>60 ml/min/1.73 sqM) Glucose 133 H (74-99) mg/dL Calcium 9.1 (8.4-10.2) mg/dL Total Bilirubin 0.4 (0.2-1.3) mg/dL AST 37 H (14-36) U/L ALT 39 (9-52) U/L Alkaline Phosphatase 83 (38-126) U/L Total Protein 6.9 (6.3-8.2) g/dL Albumin 3.9 (3.5-5.0) g/dL Amylase 41 (30-110) U/L Lipase 77 (23-300) U/L Urine Color Yellow Urine Appearance Clear (Clear) Urine pH 6.0 (5.0-8.0) Ur Specific [place] 1.013 (1.001-1.035) Urine Protein Negative (Negative) Urine Glucose (UA) Negative (Negative) Urine Ketones Negative (Negative) Urine Blood Small H (Negative) Urine Nitrite Negative (Negative) Urine Bilirubin Negative (Negative) Urine Urobilinogen <2.0 (<2.0) mg/dL Ur Leukocyte Esterase Moderate H (Negative) Urine RBC 3 (0-5) /hpf Urine WBC 18 H (0-5) /hpf Ur Squamous Epith Cells <1 (0-4) /hpf Hyaline Casts 10 H (0-2) /lpf Urine Mucus Rare H (None) /hpf Disposition Clinical Impression: Enteritis Disposition: HOME SELF-CARE Condition: Good Instructions: Enteritis (ED) Is patient prescribed a controlled substance at d/c from ED?: No Referrals: Macy Knight MD [Primary Care Provider] - 1-2 days Jaycee Joseph MD [STAFF PHYSICIAN] - 1-2 days Time of Disposition: 09:35
== END 2018-08-21 10:05 | disposition home or self-care (01) ==
LOC: EC 05:00
DX: K52.9 Noninfective gastroenteritis and colitis, unspecified (principal); J45.909 Unspecified asthma, uncomplicated; K21.9 Gastro-esophageal reflux disease without esophagitis; E78.5 Hyperlipidemia, unspecified; I10 Essential (primary) hypertension; M19.90 Unspecified osteoarthritis, unspecified site; E11.40 Type 2 diabetes mellitus with diabetic neuropathy, unspecified; M79.7 Fibromyalgia; F32.9 Major depressive disorder, single episode, unspecified; F41.9 Anxiety disorder, unspecified; Z86.73 Personal history of transient ischemic attack (TIA), and cerebral infarction without residual deficits; Z87.19 Personal history of other diseases of the digestive system; Z85.41 Personal history of malignant neoplasm of cervix uteri; Z79.82 Long term (current) use of aspirin; Z79.84 Long term (current) use of oral hypoglycemic drugs; Z79.899 Other long term (current) drug therapy; Z88.5 Allergy status to narcotic agent; Z91.010 Allergy to peanuts; Z88.2 Allergy status to sulfonamides; Z91.018 Allergy to other foods; Z91.041 Radiographic dye allergy status; Z91.013 Allergy to seafood; Z88.8 Allergy status to other drugs, medicaments and biological substances; Z90.49 Acquired absence of other specified parts of digestive tract; Z98.84 Bariatric surgery status
CPT/HCPCS: 36415; 80053; 82150; 83690; 85025; 81001; 74018; 74177; 99285; 96374; 96375 ×3; 96361; J1200; J1100; J2405; Q9967

== ENCOUNTER 2018-10-08 16:27 | Emergency (ER) | payer OTHER ==
[2018-10-08] MEDS ORDERED: KETOROLAC 30 MG/ML 1 ML VIAL IVP STA (17:04)
[2018-10-08] MEDS ORDERED: diphenhydrAMINE 50 MG/ML 1 ML VIAL IVP STA (17:04)
[2018-10-08] MEDS ORDERED: ONDANSETRON 4 MG/2 ML VIAL IVP STA (17:04)
[2018-10-08] MEDS ORDERED: SODIUM CHLORIDE 0.9% 1,000 ML IV STA ×2 (17:04)
--- NOTE | 2018-10-08 17:36 | ED ---
Headache HPI - General Chief Complaint: Headache Stated Complaint: migraine & diarrhea Time Seen by Provider: 10/08/18 16:41 Source: RN notes reviewed, old records reviewed Mode of arrival: ambulatory Limitations: no limitations - History of Present Illness Initial Comments: 48-year-old female presents to return today with complaints of diarrhea and migraine. She reports that her migraine and diarrhea have going on for 3 days. She's had a severe migraine for the past day likely due to dehydration.Patient reports that her headache is similar to her previous migraines. Patient denies any abdominal pain. 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 Patient has no bloody stools. She denies any recent vomiting episodes. - Related Data Home Medications Medication Instructions Recorded Confirmed Furosemide [Lasix] 20 mg PO BID@0700,1700 09/19/16 10/08/18 LORazepam [Ativan] 0.5 mg PO TID PRN 09/27/17 10/08/18 metFORMIN HCL [Glucophage] 250 mg PO DAILY@1700 09/27/17 10/08/18 Escitalopram [Lexapro] 20 mg PO HS@219901/15/18 10/08/18 Rizatriptan Benzoate [Maxalt STRAPPER] 10 mg PO DAILY PRN 03/06/18 10/08/18 Zolpidem Tartrate [Ambien] 10 mg PO HS@0 03/06/18 10/08/18 Cetirizine HCl [Zyrtec] 10 mg PO BID@0700,1900 06/13/18 10/08/18 Omeprazole 20 mg PO DAILY@0700 06/13/18 10/08/18 Diazepam [Valium] 5 mg PO DAILY@0700 08/03/18 10/08/18 Docusate [Colace] 100 mg PO DAILY@0700 08/03/18 10/08/18 Ondansetron [Zofran ODT] 4 mg SUBLINGUAL Q6H PRN 08/03/18 10/08/18 Biotin 10,000 mcg PO BID@0700,1900 10/08/18 10/08/18 Ketorolac [Toradol] 10 mg PO Q6H PRN 10/08/18 10/08/18 Mirtazapine [Remeron] 15 mg PO HS 10/08/18 10/08/18 Propranolol HCl 80 mg PO DAILY 10/08/18 10/08/18 Previous Rx's Medication Instructions Recorded SUMAtriptan SUCCINATE [Imitrex] 25 mg PO Q8H #10 tablet 10/08/18 Allergies Allergy/AdvReac Type Severity Reaction Status Date / Time oxycodone [From Percocet] Allergy Unknown Swelling; Verified 10/08/18 17:38 (WAS ABLE TO TAKE ALONG WITH BENADRYL) apricot Allergy Dyspnea Verified 10/08/18 17:38 barium sulfate Allergy Anaphylaxis Verified 10/08/18 17:38 [From Readi-Cat] codeine Allergy Anaphylaxis Verified 10/08/18 17:38 hydrocodone [From Lortab] Allergy Swelling Verified 10/08/18 17:38 Iodinated Contrast- Oral and Allergy Anaphylaxis Verified 10/08/18 17:38 IV Dye iodine Allergy Rash/Hives Verified 10/08/18 17:38 morphine Allergy Rash/Hives Verified 10/08/18 17:38 peach Allergy Swelling Verified 10/08/18 17:38 peanut Allergy Swelling Verified 10/08/18 17:38 peanut oil Allergy Anaphylaxis Verified 10/08/18 17:38 shellfish derived [Shellfish] Allergy Anaphylaxis Verified 10/08/18 17:38 strawberry Allergy Anaphylaxis Verified 10/08/18 17:38 sucralfate [From Carafate] Allergy Swelling Verified 10/08/18 17:38 Sulfa (Sulfonamide Allergy Anaphylaxis Verified 10/08/18 17:38 Antibiotics) sulfamethoxazole Allergy Anaphylaxis Verified 10/08/18 17:38 [From Bactrim] tree nut [Nut] Allergy Swelling Verified 10/08/18 17:38 trimethoprim [From Bactrim] Allergy Anaphylaxis Verified 10/08/18 17:38 Review of Systems ROS Statement: Those systems with pertinent positive or pertinent negative responses have been documented in the HPI. ROS Other: All systems not noted in ROS Statement are negative. Past Medical History Past Medical History: Asthma, CVA/TIA, Diabetes Mellitus, GERD/Reflux, Hyperlipidemia, Hypertension, Osteoarthritis (OA), Pneumonia Additional Past Medical History / Comment(s): NIDDM. past tia 2015. diabetic neuropathy eli feet, migraines, cervical disc disease, DDD, eli tinnitis, arthiritis bilateral shoulders, fibrymyalgia,IBS, HX R arm fx yrs ago, R ovarian cyst, hiatal hernia, UTIs, urinary calculus, pancreatitis x 2, stomach ulcer. History of Any Multi-Drug Resistant Organisms: None Reported Date of last positivie culture/infection: None MDRO Source:: None Past Surgical History: Appendectomy, Bariatric Surgery, Cholecystectomy, Tonsillectomy Additional Past Surgical History / Comment(s): 2010 felix-en-Y, fistula repair 2011, 2011 gastric bypass revision, bowel resection, lap gastrojejunostomy anastamosis revision, EGD and colonoscopy, cone bx-cervical cancer remove with cryo, L fallopian tube removed due to cyst, picc line in and out, CERVICAL FUSION 12/21/16. Past Anesthesia/Blood Transfusion Reactions: Family History of Problems w/ Anesthesia, Motion Sickness, Postoperative Nausea & Vomiting (PONV) Additional Past Anesthesia/Blood Transfusion Reaction / Comment(s): Pt states she has never recieved blood. FAMILY HX PONV. Past Psychological History: Anxiety, Depression Smoking Status: Never smoker Past Alcohol Use History: None Reported Past Drug Use History: Marijuana - Past Family History Brother(s) Family Medical History: Deep Vein Thrombosis (DVT) Father Family Medical History: Cancer Additional Family Medical History / Comment(s): Father had poss colon and lung cancer and at age 73yrs. Mother Family Medical History: Coronary Artery Disease (CAD), Diabetes Mellitus, Deep Vein Thrombosis (DVT), Hypertension Additional Family Medical History / Comment(s): Mother is alive and 73 yrs old. General Exam - General Exam Comments Initial Comments: Well-appearing 48-year-old female. Alert and oriented 3. Patient appears in no acute distress. Patient has a towel over her head to avoid light shining in her eyes. She states this makes her headache worse. Limitations: no limitations General appearance: alert Head exam: Present: atraumatic, normocephalic, normal inspection Eye exam: Present: normal appearance, PERRL, EOMI. Absent: scleral icterus, conjunctival injection, periorbital swelling ENT exam: Present: normal exam, mucous membranes moist Neck exam: Present: normal inspection. Absent: tenderness, meningismus, lymphadenopathy Respiratory exam: Present: normal lung sounds bilaterally. Absent: respiratory distress, wheezes, rales, rhonchi, stridor Cardiovascular Exam: Present: regular rate, normal rhythm, normal heart sounds. Absent: systolic murmur, diastolic murmur, rubs, gallop, clicks GI/Abdominal exam: Present: soft, tenderness (minimal suprapubic and left lower quadrant tenderness.), normal bowel sounds. Absent: distended, guarding, rebound, rigid Extremities exam: Present: normal inspection, full ROM, normal capillary refill. Absent: tenderness, pedal edema, joint swelling, calf tenderness Back exam: Present: normal inspection Neurological exam: Present: alert, oriented X3, CN II-XII intact Psychiatric exam: Present: normal affect, normal mood Skin exam: Present: warm, dry, intact, normal color. Absent: rash Course Vital Signs 10/08/18 10/08/18 10/08/18 16:35 19:15 20:31 Temperature 98.7 F 99.2 F Pulse Rate 102 H 64 94 Respiratory 20 16 18 Rate Blood Pressure 115/81 107/73 101/67 O2 Sat by Pulse 99 98 98 Oximetry Medical Decision Making - Medical Decision Making 40-year-old female presents returned today with 3 days of diarrhea. She also complains of minor headache likely due to dehydration. Slurred all of her previous headaches. She has no neurological deficits Patient otherwise appears well. Patient labwork is unremarkable. She is unable to produce stool sample here. She is given migraine cocktail studies should have some pain. She reports tension within her neck. She is here tonight the Valium. Discussed close follow-up with PCP. All questions answered return parameters were discussed. Discharged with up her prescription for Imitrex, Patient states that she is currently out of it. - Lab Data Result diagrams: 10/08/18 17:19 10/08/18 17: Lab Results 10/08/18 10/08/18 10/08/18 Range/Units 17:00 17: 17: WBC 8.6 (3.8-10.6) k/uL RBC 5.08 (3.80-5.40) m/uL Hgb 11.0 L (11.4-16.0) gm/dL Hct 36.1 (34.0-46.0) % MCV 71.1 L (80.0-100.0) fL MCH 21.7 L (25.0-35.0) pg MCHC 30.5 L (31.0-37.0) g/dL RDW 18.9 H (11.5-15.5) % Plt Count 346 (150-450) k/uL Neutrophils % 51 % Lymphocytes % 39 % Monocytes % 5 % Eosinophils % 2 % Basophils % 1 % Neutrophils # 4.4 (1.3-7.7) k/uL Lymphocytes # 3.4 (1.0-4.8) k/uL Monocytes # 0.4 (0-1.0) k/uL Eosinophils # 0.2 (0-0.7) k/uL Basophils # 0.1 (0-0.2) k/uL Hypochromasia Marked Poikilocytosis Slight Anisocytosis Slight Microcytosis Marked Sodium 143 (137-145) mmol/L Potassium 3.8 (3.5-5.1) mmol/L Chloride 112 H (98-107) mmol/L Carbon Dioxide 19 L (22-30) mmol/L Anion Gap 12 mmol/L BUN 9 (7-17) mg/dL Creatinine 0.60 (0.52-1.04) mg/dL Est GFR (CKD-EPI)AfAm >90 (>60 ml/min/1.73 sqM) Est GFR (CKD-EPI)NonAf >90 (>60 ml/min/1.73 sqM) Glucose 106 H (74-99) mg/dL Calcium 9.4 (8.4-10.2) mg/dL Total Bilirubin 0.5 (0.2-1.3) mg/dL AST 43 H (14-36) U/L ALT 45 (9-52) U/L Alkaline Phosphatase 105 (38-126) U/L Total Protein 7.9 (6.3-8.2) g/dL Albumin 4.4 (3.5-5.0) g/dL Amylase 46 (30-110) U/L Lipase 82 (23-300) U/L Urine Color Light Yellow Urine Appearance Clear (Clear) Urine pH 6.0 (5.0-8.0) Ur Specific [place] 1.005 (1.001-1.035) Urine Protein Negative (Negative) Urine Glucose (UA) Negative (Negative) Urine Ketones Negative (Negative) Urine Blood Negative (Negative) Urine Nitrite Negative (Negative) Urine Bilirubin Negative (Negative) Urine Urobilinogen <2.0 (<2.0) mg/dL Ur Leukocyte Esterase Small H (Negative) Urine RBC 1 (0-5) /hpf Urine WBC 3 (0-5) /hpf Ur Squamous Epith Cells 1 (0-4) /hpf Urine Bacteria Rare H (None) /hpf Urine Mucus Rare H (None) /hpf Disposition Clinical Impression: Diarrhea, Dehydration, Migraine Disposition: HOME SELF-CARE Condition: Good Instructions (If sedation given, give patient instructions): Migraine Headache (ED), Acute Diarrhea (ED) Additional Instructions: Follow-up with your primary care physician. Return to the emergency department if any alarming signs or symptoms occur. Patient can return stool studies for outpatient testing. Prescriptions: SUMAtriptan SUCCINATE [Imitrex] 25 mg PO Q8H #10 tablet Is patient prescribed a controlled substance at d/c from ED?: No Referrals: Macy Knight MD [Primary Care Provider] - 1-2 days
[2018-10-08 17:49] LABS: Appearance,Urine Clear (Clear); Bacteria,Urine Rare /hpf; Bilirubin,Urine Negative (Negative); Blood,Urine Negative (Negative); Color,Urine Light Yellow; Glucose,Urine (UA) Negative (Negative); Ketones,Urine Negative (Negative); Leukocyte Esterase,Urine Small (Negative); Mucus,Urine Rare /hpf; Nitrite,Urine Negative (Negative); Protein,Urine Negative (Negative); RBC,Urine 1 /hpf (0-5); Specific Gravity,Urine 1.005 (1.001-1.035); Squamous Epithelial Cell,Urine 1 /hpf (0-4); Urobilinogen,Urine <2.0 mg/dL (<2.0); WBC,Urine 3 /hpf (0-5)
[2018-10-08 17:57] LABS: Anisocytosis Slight; Basophils # (A) 0.1 k/uL (0-0.2); Basophils % (A) 1 %; Eosinophils # (A) 0.2 k/uL (0-0.7); Eosinophils % (A) 2 %; HCT 36.1 % (34.0-46.0); Hypochromasia Marked; Lymphocytes # (A) 3.4 k/uL (1.0-4.8); Lymphocytes % (A) 39 %; MCH 21.7 pg (25.0-35.0); MCHC 30.5 g/dL (31.0-37.0); MCV 71.1 fL (80.0-100.0); Mean Platelet Volume 7.1; Microcytosis Marked; Monocytes # (A) 0.4 k/uL (0-1.0); Monocytes % (A) 5 %; Neutrophils # (A) 4.4 k/uL (1.3-7.7); Neutrophils % (A) 51 %; Platelet Count 346 k/uL (150-450); Poikilocytosis Slight; RBC 5.08 m/uL (3.80-5.40); RDW 18.9 % (11.5-15.5); WBC 8.6 k/uL (3.8-10.6)
[2018-10-08 18:04] LABS: ALT 45 U/L (9-52); AST 43 U/L (14-36); Albumin 4.4 g/dL (3.5-5.0); Alkaline Phosphatase 105 U/L (38-126); Amylase 46 U/L (30-110); Anion Gap 12 mmol/L; Blood Urea Nitrogen 9 mg/dL (7-17); Calcium 9.4 mg/dL (8.4-10.2); Carbon Dioxide 19 mmol/L (22-30); Chloride 112 mmol/L (98-107); Glucose 106 mg/dL (74-99); Lipase 82 U/L (23-300); Potassium 3.8 mmol/L (3.5-5.1); Sodium 143 mmol/L (137-145); Total Bilirubin 0.5 mg/dL (0.2-1.3); Total Protein 7.9 g/dL (6.3-8.2)
[2018-10-08] MEDS ORDERED: HYDROmorphone 1 MG/ML 1 ML SYRINGE IVP STA (18:43)
--- NOTE | 2018-10-08 18:44 | XR ---
EXAMINATION TYPE: XR KUB 2 views DATE OF EXAM: 10/08/2018 COMPARISON: 08/21/2018 HISTORY: Diarrhea, pain TECHNIQUE: 2 upright views FINDINGS: Visualized lung bases and pleural spaces are negative. Numerous surgical clips are noted over the right and left upper quadrants. There is no pneumoperitoneum or pneumatosis. Bowel gas pattern is normal. No definite acute skeletal or soft tissue findings. IMPRESSION: Negative examination.
[2018-10-08] MEDS ORDERED: SODIUM CHLORIDE 0.9% 1,000 ML IV ONE (19:15)
[2018-10-08] MEDS ORDERED: DIAZEPAM 5 MG/ML 2 ML INJ IVP STA (19:15)
[2018-10-08 19:17] VITALS: TEMP 99.2
[2018-10-08 20:32] VITALS: BP 101/67; PULSE 94; RESP 18
[2018-10-08] MEDS ORDERED: SUMAtriptan SUCCINATE 50 MG TAB PO STA (20:50)
== END 2018-10-08 21:12 | disposition home or self-care (01) ==
LOC: EC 16:27
DX: E86.0 Dehydration (principal); G43.909 Migraine, unspecified, not intractable, without status migrainosus; R19.7 Diarrhea, unspecified; J45.909 Unspecified asthma, uncomplicated; E11.40 Type 2 diabetes mellitus with diabetic neuropathy, unspecified; K21.9 Gastro-esophageal reflux disease without esophagitis; E78.5 Hyperlipidemia, unspecified; I10 Essential (primary) hypertension; K58.9 Irritable bowel syndrome, unspecified; F32.9 Major depressive disorder, single episode, unspecified; F41.9 Anxiety disorder, unspecified; Z86.73 Personal history of transient ischemic attack (TIA), and cerebral infarction without residual deficits; Z85.41 Personal history of malignant neoplasm of cervix uteri; Z87.442 Personal history of urinary calculi; Z79.84 Long term (current) use of oral hypoglycemic drugs; Z79.899 Other long term (current) drug therapy; Z88.5 Allergy status to narcotic agent; Z91.010 Allergy to peanuts; Z91.013 Allergy to seafood; Z88.2 Allergy status to sulfonamides; Z88.8 Allergy status to other drugs, medicaments and biological substances; Z91.018 Allergy to other foods; Z88.1 Allergy status to other antibiotic agents; Z91.041 Radiographic dye allergy status
CPT/HCPCS: 36415; 80053; 82150; 83690; 85025; 81001; 87086; 74018; 99284; 96374; 96375 ×4; 96361 ×3; J1200; J3360; J2405; J1885; J1170

== ENCOUNTER 2018-12-24 22:32 | Emergency (ER) | payer OTHER ==
--- NOTE | 2018-12-24 22:49 | ED ---
Headache HPI - General Chief Complaint: Headache Stated Complaint: headache Time Seen by Provider: 12/24/18 22:47 Source: RN notes reviewed, old records reviewed Mode of arrival: EMS - History of Present Illness Initial Comments: This is a 40-year-old female the ER for evaluation patient presents for evaluation of migraine headache. Headache history of migraine headaches and t his is similar. She ran out of her Imitrex was unable to prescription time which usually helps abort. Patient again denies trauma no fevers no neurological complaints. Headache is been persistent MD Complaint: headache -: days(s) (2) Onset Description: gradual Location: right, left, frontal, temporal Severity: mild Severity scale (1-10): 3 Quality: aching, throbbing Consistency: constant Improves With: nothing Worsens With: none Context: occurred at rest Associated Symptoms: sensitivity to sound - Related Data Home Medications Medication Instructions Recorded Confirmed Furosemide [Lasix] 20 mg PO BID@0700,1700 09/19/16 12/24/18 LORazepam [Ativan] 0.5 mg PO DAILY@0700 PRN 09/27/17 12/24/18 metFORMIN HCL [Glucophage] 250 mg PO DAILY@1700 09/27/17 12/24/18 Escitalopram [Lexapro] 20 mg PO HS@219901/15/18 12/24/18 Rizatriptan Benzoate [Maxalt LOOPER OPERATOR] 10 mg PO DAILY PRN 03/06/18 12/24/18 Cetirizine HCl [Zyrtec] 10 mg PO BID@0700,1900 06/13/18 12/24/18 Omeprazole 20 mg PO DAILY@0700 06/13/18 12/24/18 Diazepam [Valium] 10 mg PO DAILY@2100 08/03/18 12/24/18 Docusate [Colace] 100 mg PO DAILY@0700 08/03/18 12/24/18 Ondansetron [Zofran ODT] 4 mg SUBLINGUAL Q6H PRN 08/03/18 12/24/18 Biotin 10,000 mcg PO BID@0700,1900 10/08/18 12/24/18 Ketorolac [Toradol] 10 mg PO Q6H PRN 10/08/18 12/24/18 Mirtazapine [Remeron] 15 mg PO HS PRN 10/08/18 12/24/18 Propranolol HCl 80 mg PO DAILY 10/08/18 12/24/18 Clorazepate Dipotassium [Tranxene 1 - 2 tab PO HS 12/24/18 12/24/18 T] buPROPion HCL [Wellbutrin XL] 300 mg PO DAILY 12/24/18 12/24/18 buPROPion HCL [Wellbutrin XL] 300 mg PO DAILY 12/24/18 12/24/18 Allergies Allergy/AdvReac Type Severity Reaction Status Date / Time oxycodone [From Percocet] Allergy Unknown Swelling; Verified 12/24/18 22:42 (WAS ABLE TO TAKE ALONG WITH BENADRYL) apricot Allergy Dyspnea Verified 12/24/18 22:42 barium sulfate Allergy Anaphylaxis Verified 12/24/18 22:42 [From Readi-Cat] codeine Allergy Anaphylaxis Verified 12/24/18 22:42 hydrocodone [From Lortab] Allergy Swelling Verified 12/24/18 22:42 Iodinated Contrast- Oral and Allergy Anaphylaxis Verified 12/24/18 22:42 IV Dye iodine Allergy Rash/Hives Verified 12/24/18 22:42 morphine Allergy Rash/Hives Verified 12/24/18 22:42 peach Allergy Swelling Verified 12/24/18 22:42 peanut Allergy Swelling Verified 12/24/18 22:42 peanut oil Allergy Anaphylaxis Verified 12/24/18 22:42 shellfish derived [Shellfish] Allergy Anaphylaxis Verified 12/24/18 22:42 strawberry Allergy Anaphylaxis Verified 12/24/18 22:42 sucralfate [From Carafate] Allergy Swelling Verified 12/24/18 22:42 Sulfa (Sulfonamide Allergy Anaphylaxis Verified 12/24/18 22:42 Antibiotics) sulfamethoxazole Allergy Anaphylaxis Verified 12/24/18 22:42 [From Bactrim] tree nut [Nut] Allergy Swelling Verified 12/24/18 22:42 trimethoprim [From Bactrim] Allergy Anaphylaxis Verified 12/24/18 22:42 Review of Systems ROS Statement: Those systems with pertinent positive or pertinent negative responses have been documented in the HPI. ROS Other: All systems not noted in ROS Statement are negative. Past Medical History Past Medical History: Asthma, CVA/TIA, Diabetes Mellitus, GERD/Reflux, Hyperlipidemia, Hypertension, Osteoarthritis (OA), Pneumonia Additional Past Medical History / Comment(s): NIDDM. past tia 2016. diabetic neuropathy eli feet, migraines, cervical disc disease, DDD, eli tinnitis, arthiritis bilateral shoulders, fibrymyalgia,IBS, HX R arm fx yrs ago, R ovarian cyst, hiatal hernia, UTIs, urinary calculus, pancreatitis x 2, stomach ulcer. History of Any Multi-Drug Resistant Organisms: C-DIFF Date of last positivie culture/infection: 2016 MDRO Source:: None Past Surgical History: Appendectomy, Bariatric Surgery, Cholecystectomy, Tonsillectomy Additional Past Surgical History / Comment(s): 2010 felix-en-Y, fistula repair 2011, 2011 gastric bypass revision, bowel resection, lap gastrojejunostomy anastamosis revision, EGD and colonoscopy, cone bx-cervical cancer remove with cryo, L fallopian tube removed due to cyst, picc line in and out, CERVICAL FUSION 12/21/16. Past Anesthesia/Blood Transfusion Reactions: Family History of Problems w/ Anesthesia, Motion Sickness, Postoperative Nausea & Vomiting (PONV) Additional Past Anesthesia/Blood Transfusion Reaction / Comment(s): Pt states she has never recieved blood. FAMILY HX PONV. Past Psychological History: Anxiety, Depression Smoking Status: Never smoker Past Alcohol Use History: None Reported Past Drug Use History: None Reported, Marijuana - Past Family History Brother(s) Family Medical History: Deep Vein Thrombosis (DVT) Father Family Medical History: Cancer Additional Family Medical History / Comment(s): Father had poss colon and lung cancer and at age 73yrs. Mother Family Medical History: Coronary Artery Disease (CAD), Diabetes Mellitus, Deep Vein Thrombosis (DVT), Hypertension Additional Family Medical History / Comment(s): Mother is alive and 73 yrs old. General Exam General appearance: alert, in no apparent distress Head exam: Present: atraumatic, normocephalic, normal inspection Eye exam: Present: normal appearance, PERRL, EOMI. Absent: scleral icterus, conjunctival injection, periorbital swelling ENT exam: Present: normal exam, mucous membranes moist Neck exam: Present: normal inspection. Absent: tenderness, meningismus, lymphadenopathy Respiratory exam: Present: normal lung sounds bilaterally. Absent: respiratory distress, wheezes, rales, rhonchi, stridor Cardiovascular Exam: Present: regular rate, normal rhythm, normal heart sounds. Absent: systolic murmur, diastolic murmur, rubs, gallop, clicks GI/Abdominal exam: Present: soft, normal bowel sounds. Absent: distended, tenderness, guarding, rebound, rigid Extremities exam: Present: normal inspection, full ROM, normal capillary refill. Absent: tenderness, pedal edema, joint swelling, calf tenderness Back exam: Present: normal inspection Neurological exam: Present: alert, oriented X3, CN II-XII intact Psychiatric exam: Present: normal affect, normal mood Skin exam: Present: warm, dry, intact, normal color. Absent: rash Course Vital Signs 12/24/18 22:33 Temperature 98.7 F Pulse Rate 97 Respiratory 16 Rate Blood Pressure 102/78 O2 Sat by Pulse 98 Oximetry - Reevaluation(s) Reevaluation #1: 12/24/18 23:43 Medical record is reviewed with multiple ER visits for headache Reevaluation #2: 12/24/18 23:43 Patient asking for Dilaudid Medical Decision Making - Medical Decision Making 48 female the ER for evaluation, evaluation of migraine headache. Headache at this time is improved, patient will be discharged Disposition Clinical Impression: Migraine, Chronic pain syndrome, Migraine Disposition: HOME SELF-CARE Condition: Good Instructions (If sedation given, give patient instructions): Acute Headache (ED) Is patient prescribed a controlled substance at d/c from ED?: No Referrals: Macy Knight MD [Primary Care Provider] - 1-2 days
[2018-12-24] MEDS ORDERED: PROCHLORPERAZINE 5 MG TAB PO STA (23:25)
[2018-12-24] MEDS ORDERED: HYDROmorphone 1 MG/ML 1 ML SYRINGE IM STA ×2 (23:25→23:36)
[2018-12-24] MEDS ORDERED: DEXAMETHASONE 4 MG TAB PO STA (23:25)
[2018-12-24] MEDS ORDERED: diphenhydrAMINE 50 MG CAP PO STA (23:25)
[2018-12-24] MEDS ORDERED: ONDANSETRON ODT 4 MG TAB PO STA (23:25)
[2018-12-25] MEDS ORDERED: HYDROmorphone 1 MG/ML 1 ML SYRINGE IVP STA (00:36)
[2018-12-25] MEDS ORDERED: METOCLOPRAMIDE 5 MG/ML 2 ML VIAL IVP STA (00:36)
[2018-12-25] MEDS ORDERED: LORazepam 2 MG/ML INJ IV STA (00:36)
[2018-12-25] MEDS ORDERED: diphenhydrAMINE 50 MG/ML 1 ML VIAL IVP STA (00:36)
[2018-12-25] MEDS ORDERED: SODIUM CHLORIDE 0.9% 1,000 ML IV STA (00:36)
--- NOTE | 2018-12-25 01:08 | CT ---
EXAM: CT Head Without Intravenous Contrast CLINICAL HISTORY: ITS.REASON CT Reason: pain TECHNIQUE: Axial computed tomography images of the head/brain without intravenous contrast. CTDI is 49.1 mGy and DLP is 1064 mGy-cm. This CT exam was performed using one or more of the following dose reduction techniques: automated exposure control, adjustment of the mA and/or kV according to patient size, and/or use of iterative reconstruction technique. COMPARISON: CT head 05/03/18 FINDINGS: Brain: Unremarkable. No hemorrhage. No significant white matter disease. No edema. Ventricles: Unremarkable. No ventriculomegaly. Bones/joints: Unremarkable. No acute fracture. Soft tissues: Unremarkable. Sinuses: Unremarkable as visualized. No acute sinusitis. Mastoid air cells: Unremarkable as visualized. No mastoid effusion. IMPRESSION: Normal head/brain CT.
[2018-12-25 01:53] VITALS: PULSE 99
[2018-12-25] MEDS ORDERED: ACETAMINOPHEN TAB 325 MG TAB PO STA (02:33)
[2018-12-25 02:52] VITALS: BP 106/70; RESP 18; TEMP 98.3
== END 2018-12-25 02:56 | disposition home or self-care (01) ==
LOC: EC 22:32
DX: G43.909 Migraine, unspecified, not intractable, without status migrainosus (principal); G89.4 Chronic pain syndrome; E11.40 Type 2 diabetes mellitus with diabetic neuropathy, unspecified; I10 Essential (primary) hypertension; K21.9 Gastro-esophageal reflux disease without esophagitis; F41.9 Anxiety disorder, unspecified; F32.9 Major depressive disorder, single episode, unspecified; M19.90 Unspecified osteoarthritis, unspecified site; M79.7 Fibromyalgia; K58.9 Irritable bowel syndrome, unspecified; Z85.41 Personal history of malignant neoplasm of cervix uteri; Z86.73 Personal history of transient ischemic attack (TIA), and cerebral infarction without residual deficits; Z79.84 Long term (current) use of oral hypoglycemic drugs; Z79.899 Other long term (current) drug therapy; Z91.018 Allergy to other foods; Z88.5 Allergy status to narcotic agent; Z91.010 Allergy to peanuts; Z91.013 Allergy to seafood; Z91.041 Radiographic dye allergy status; Z88.1 Allergy status to other antibiotic agents; Z88.2 Allergy status to sulfonamides; Z53.8 Procedure and treatment not carried out for other reasons
CPT/HCPCS: 70450; 99284; 96374; 96375 ×3; 96361 ×2; 96372; S0183; J8540; J2060; J1200; J2765; J1170 ×2

== ENCOUNTER → 2019-01-10 | Outpatient (CLI) | payer OTHER ==
--- NOTE | 2019-01-14 12:13 | MM ---
Reason for exam: screening (asymptomatic). Last mammogram was performed 1 year ago. History: Patient has history of other cancer at age 23 and is nulliparous. Family history of breast cancer in grandmother. Taking unspecified hormones beginning at age 40. Physical Findings: A clinical breast exam by your physician is recommended on an annual basis and results should be correlated with mammographic findings. MG 3D Screening Mammo W/Cad Bilateral CC and MLO view(s) were taken. Prior study comparison: January 09, 2018, bilateral MG screening mammo w CAD. June 28, 2016, bilateral MG 3d screening mammo w/cad. There are scattered fibroglandular densities. Benign appearing bilateral calcifications. No suspicious abnormality. No significant changes when compared with prior studies. ASSESSMENT: Benign, BI-RAD 2 RECOMMENDATION: Routine screening mammogram of both breasts in 1 year. Manage on a clinical basis with regard to remote history of nipple discharge per patient.
== END | disposition home or self-care (01) ==
LOC: RADMAMWWP 12:55
PROVIDERS: ATTEND Family Medicine
DX: Z12.31 Encounter for screening mammogram for malignant neoplasm of breast (principal)
CPT/HCPCS: 77063; 77067

== ENCOUNTER 2019-02-05 15:58 | Emergency (ER) | payer OTHER ==
[2019-02-05 16:06] VITALS: TEMP 98.6
[2019-02-05] MEDS ORDERED: diphenhydrAMINE 50 MG/ML 1 ML VIAL IVP STA (16:25)
[2019-02-05] MEDS ORDERED: KETOROLAC 30 MG/ML 1 ML VIAL IVP STA (16:25)
[2019-02-05] MEDS ORDERED: METOCLOPRAMIDE 5 MG/ML 2 ML VIAL IVP STA (16:25)
[2019-02-05] MEDS ORDERED: SODIUM CHLORIDE 0.9% 1,000 ML IV STA (16:25)
--- NOTE | 2019-02-05 16:28 | ED ---
Headache HPI - General Chief Complaint: Headache Stated Complaint: migraine/vomiting/diarrhea Time Seen by Provider: 02/05/19 16:10 Source: RN notes reviewed Mode of arrival: ambulatory Limitations: no limitations - History of Present Illness Initial Comments: 48-year-old female with a past medical history significant for migraines, fibromyalgia, IBS, Asthma, TIA, [id number] diabetes mellitus, GERD, hyperlipidemia, hypertension presents to the emergency department for a chief complaint of headache. Patient states she has had a headache for the past 5 days. States this is exactly consistent with previous migraines. States it is causing her nausea and vomiting as well as diarrhea. States these are secondary to the migraine as well which is normal for her.. She states headache is generalized in nature. States she does have photophobia as well. Denies any other visual changes. Denies any weakness or difficulty ambulating. States she took her Imitrex at home and her Neurontin as well as Phenergan and Zofran without relief. Patient has no other complaints at this time including shortness of breath, chest pain, abdominal pain, nausea or vomiting, headache, or visual changes. - Related Data Home Medications Medication Instructions Recorded Confirmed Furosemide [Lasix] 20 mg PO BID@0700,1700 09/19/16 02/05/19 LORazepam [Ativan] 1 mg PO DAILY@0700 PRN 09/27/17 02/05/19 metFORMIN HCL [Glucophage] 250 mg PO DAILY@1700 09/27/17 02/05/19 Escitalopram [Lexapro] 20 mg PO HS@2200 01/15/18 02/05/19 Rizatriptan Benzoate [Maxalt BEET FLUMER] 10 mg PO DAILY PRN 03/06/18 02/05/19 Cetirizine HCl [Zyrtec] 10 mg PO BID@0700,1900 06/13/18 02/05/19 Omeprazole 20 mg PO DAILY@0700 06/13/18 02/05/19 Diazepam [Valium] 10 mg PO DAILY@0700 08/03/18 02/05/19 Docusate [Colace] 100 mg PO DAILY@0700 08/03/18 02/05/19 Ondansetron [Zofran ODT] 4 mg SL Q6H PRN 08/03/18 02/05/19 Biotin 10,000 mcg PO BID@0700,1900 10/08/18 02/05/19 Ketorolac [Toradol] 10 mg PO Q6H PRN 10/08/18 02/05/19 Mirtazapine [Remeron] 15 mg PO HS@2100 10/08/18 02/05/19 Propranolol HCl 80 mg PO DAILY 10/08/18 02/05/19 buPROPion HCL [Wellbutrin XL] 300 mg PO DAILY@0700 12/24/18 02/05/19 Zolpidem [Ambien] 10 mg PO HS@2200 02/05/19 02/05/19 Allergies Allergy/AdvReac Type Severity Reaction Status Date / Time oxycodone [From Percocet] Allergy Unknown Swelling; Verified 02/05/19 16:59 (WAS ABLE TO TAKE ALONG WITH BENADRYL) apricot Allergy Dyspnea Verified 02/05/19 16:59 barium sulfate Allergy Anaphylaxis Verified 02/05/19 16:59 [From Readi-Cat] codeine Allergy Anaphylaxis Verified 02/05/19 16:59 hydrocodone [From Lortab] Allergy Swelling Verified 02/05/19 16:59 Iodinated Contrast- Oral and Allergy Anaphylaxis Verified 02/05/19 16:59 IV Dye iodine Allergy Rash/Hives Verified 02/05/19 16:59 morphine Allergy Rash/Hives Verified 02/05/19 16:59 peach Allergy Swelling Verified 02/05/19 16:59 peanut Allergy Swelling Verified 02/05/19 16:59 peanut oil Allergy Anaphylaxis Verified 02/05/19 16:59 shellfish derived [Shellfish] Allergy Anaphylaxis Verified 02/05/19 16:59 strawberry Allergy Anaphylaxis Verified 02/05/19 16:59 sucralfate [From Carafate] Allergy Swelling Verified 02/05/19 16:59 Sulfa (Sulfonamide Allergy Anaphylaxis Verified 02/05/19 16:59 Antibiotics) sulfamethoxazole Allergy Anaphylaxis Verified 02/05/19 16:59 [From Bactrim] tree nut [Nut] Allergy Swelling Verified 02/05/19 16:59 trimethoprim [From Bactrim] Allergy Anaphylaxis Verified 02/05/19 16:59 Review of Systems ROS Statement: Those systems with pertinent positive or pertinent negative responses have been documented in the HPI. ROS Other: All systems not noted in ROS Statement are negative. Past Medical History Past Medical History: Asthma, CVA/TIA, Diabetes Mellitus, GERD/Reflux, Hyperlipidemia, Hypertension, Osteoarthritis (OA), Pneumonia Additional Past Medical History / Comment(s): NIDDM. past tia 2016. diabetic neuropathy eli feet, migraines, cervical disc disease, DDD, eli tinnitis, arthiritis bilateral shoulders, fibrymyalgia,IBS, HX R arm fx yrs ago, R ovarian cyst, hiatal hernia, UTIs, urinary calculus, pancreatitis x 2, stomach ulcer. History of Any Multi-Drug Resistant Organisms: C-DIFF Date of last positivie culture/infection: 2015 MDRO Source:: None Past Surgical History: Appendectomy, Bariatric Surgery, Cholecystectomy, Tonsillectomy Additional Past Surgical History / Comment(s): 2010 felix-en-Y, fistula repair 2011, 2011 gastric bypass revision, bowel resection, lap gastrojejunostomy anastamosis revision, EGD and colonoscopy, cone bx-cervical cancer remove with cryo, L fallopian tube removed due to cyst, picc line in and out, CERVICAL FUSION 12/21/16. Past Anesthesia/Blood Transfusion Reactions: Family History of Problems w/ Anesthesia, Motion Sickness, Postoperative Nausea & Vomiting (PONV) Additional Past Anesthesia/Blood Transfusion Reaction / Comment(s): Pt states she has never recieved blood. FAMILY HX PONV. Past Psychological History: Anxiety, Depression Smoking Status: Never smoker Past Alcohol Use History: None Reported Past Drug Use History: None Reported, Marijuana - Past Family History Brother(s) Family Medical History: Deep Vein Thrombosis (DVT) Father Family Medical History: Cancer Additional Family Medical History / Comment(s): Father had poss colon and lung cancer and at age 73yrs. Mother Family Medical History: Coronary Artery Disease (CAD), Diabetes Mellitus, Deep Vein Thrombosis (DVT), Hypertension Additional Family Medical History / Comment(s): Mother is alive and 73 yrs old. General Exam Limitations: no limitations General appearance: anxious Head exam: Present: atraumatic, normocephalic, normal inspection Eye exam: Present: normal appearance, PERRL, EOMI. Absent: scleral icterus, conjunctival injection, periorbital swelling ENT exam: Present: normal exam, normal oropharynx, mucous membranes moist, TM's normal bilaterally, normal external ear exam Neck exam: Present: normal inspection, full ROM. Absent: tenderness, meningismus, lymphadenopathy Respiratory exam: Present: normal lung sounds bilaterally. Absent: respiratory distress, wheezes, rales, rhonchi, stridor Cardiovascular Exam: Present: regular rate, normal rhythm, normal heart sounds. Absent: systolic murmur, diastolic murmur, rubs, gallop, clicks GI/Abdominal exam: Present: soft, normal bowel sounds. Absent: distended, ten derness, guarding, rebound, rigid Neurological exam: Present: alert, oriented X3, CN II-XII intact, normal gait, other (GCS 15) Expanded Speech: Present: fluid speech Cranial nerves: EOM's Intact: Normal, Tongue Deviation: Normal, Nystagmus: Normal, Facial Sensation: Normal Cerebellar function: Finger to Nose: Normal Upper motor neuron: Pronator Drift: Normal Sensory exam: Upper Extremity Light Touch: Normal, Upper Extremity Pin Prick: Normal, Lower Extremity Light Touch: Normal, Lower Extremity Pin Prick: Normal Motor strength exam: RUE: 5, LUE: 5, RLE: 5, LLE: 5 Eye Response: (4) open spontaneously Motor Response: (6) obeys commands Verbal Response: (5) oriented [place] Total: 15 Psychiatric exam: Present: normal affect, normal mood Course Vital Signs 02/05/19 02/05/19 02/05/19 16:03 18:00 18:22 Temperature 98.6 F Pulse Rate 84 64 76 Respiratory 20 18 16 Rate Blood Pressure 114/79 97/71 103/69 O2 Sat by Pulse 98 100 97 Oximetry 02/05/19 18:30 Temperature Pulse Rate 55 L Respiratory 16 Rate Blood Pressure 100/69 O2 Sat by Pulse 100 Oximetry - Reevaluation(s) Reevaluation #1: 02/05/19 18:34 CT brain performed on 12/25/2018 was reviewed and is negative Medical Decision Making - Medical Decision Making 48-year-old female with a past medical history significant for migraines, fibromyalgia, IBS, asthma, TIA, NIDDM presents to the emergency department for chief lab migraine headache 5 days. States this has been consistent. States it is consistent with previous migraines as well and she is not having vomiting and diarrhea with that happens with her migraines. No focal neurologic deficits on exam. Patient had a negative computed tomography scan done one month ago. Patient given several migraine medications. Patient feeling somewhat improved. Patient will be discharged home. Patient will return if she has any worsening symptoms will follow up with primary care. - Lab Data Lab Results 02/05/19 Range/Units 16:30 Urine HCG, Qual Not Detected (Not Detectd) Disposition Clinical Impression: Migraine Disposition: HOME SELF-CARE Condition: Good Instructions (If sedation given, give patient instructions): Acute Headache (ED) Additional Instructions: Please follow up with your primary care provider in one to 2 days. Return here to the emergency department if you have any worsening symptoms. Is patient prescribed a controlled substance at d/c from ED?: No Referrals: Macy Knight MD [Primary Care Provider] - 1-2 days Time of Disposition: 19:55
[2019-02-05] MEDS ORDERED: HYDROmorphone 0.5 MG/0.5 ML SYRINGE IVP STA ×2 (17:23→19:54)
[2019-02-05] MEDS ORDERED: PROMETHAZINE INJ 25 MG in SODIUM CHLORIDE 0.9% 50 ML IVPB STA (17:23)
[2019-02-05] MEDS ORDERED: SUMAtriptan SUCCINATE 6 MG/0.5 ML VIAL SQ STA (18:25)
[2019-02-05] MEDS ORDERED: DEXAMETHASONE SOD PHOSPHATE 10 MG/ML 1 ML VIAL IV STA (19:15)
[2019-02-05] MEDS: MAGNESIUM SULFATE-D5W PMX 1 GM in DEXTROSE/WATER 1 100ML.BAG IVPB SCH ×2 (19:35→20:45)
[2019-02-05 21:13] VITALS: PULSE 62
[2019-02-05 21:57] VITALS: BP 111/82; RESP 18
== END 2019-02-05 21:57 | disposition home or self-care (01) ==
LOC: EC 15:58
DX: G43.909 Migraine, unspecified, not intractable, without status migrainosus (principal); E11.42 Type 2 diabetes mellitus with diabetic polyneuropathy; K21.9 Gastro-esophageal reflux disease without esophagitis; M19.90 Unspecified osteoarthritis, unspecified site; F32.9 Major depressive disorder, single episode, unspecified; F41.9 Anxiety disorder, unspecified; Z88.2 Allergy status to sulfonamides; Z88.5 Allergy status to narcotic agent; Z88.8 Allergy status to other drugs, medicaments and biological substances; Z91.010 Allergy to peanuts; Z91.013 Allergy to seafood; Z91.018 Allergy to other foods; Z91.041 Radiographic dye allergy status; Z91.048 Other nonmedicinal substance allergy status; Z79.84 Long term (current) use of oral hypoglycemic drugs; Z79.899 Other long term (current) drug therapy; Z86.73 Personal history of transient ischemic attack (TIA), and cerebral infarction without residual deficits; Z85.41 Personal history of malignant neoplasm of cervix uteri; Z98.890 Other specified postprocedural states; Z98.1 Arthrodesis status
CPT/HCPCS: 81025; 99283; 96365; 96366; 96375 ×6; 96376; 96361 ×2; 96372; J3030; J1200; J1100; J2550; J2765; J1885; J3475; J1170

== ENCOUNTER 2019-02-25 18:16 | Emergency (ER) | payer OTHER ==
[2019-02-25 18:39] VITALS: RESP 18
[2019-02-25] MEDS ORDERED: SODIUM CHLORIDE 0.9% 1,000 ML IV STA (18:56)
[2019-02-25] MEDS ORDERED: KETOROLAC 30 MG/ML 1 ML VIAL IVP STA (18:57)
--- NOTE | 2019-02-25 19:14 | ED ---
General Adult HPI - General Chief complaint: Abdominal Pain Stated complaint: ABD pain NVD Time Seen by Provider: 02/25/19 18:41 Source: patient, RN notes reviewed, old records reviewed Mode of arrival: ambulatory Limitations: no limitations - History of Present Illness Initial comments: 48-year-old female patient past history of chronic abdominal pain presents ED for abdominal pain. Patient reports that she has had some pain in her left upper quadrant and diarrhea since last night. Patient states this identical to symptoms that she has expires in the past. Denies chest pain shortness of breath, dysuria. Patient states that she is not . Denies any other complaints at this time. Systemic: Pt denies fatigue, fever/chills, rash. Pt denies weakness, night sweats, weight loss. Neuro: Pt denies headache, visual disturbances, syncope or pre-syncope. HEENT: Pt denies ocular discharge or irritation, otalgia, rhinorrhea, pharyngitis or notable lymphadenopathy. Cardiopulmonary: Pt denies chest pain, SOB, heart palpitations, dyspnea on e xertion. Abdominal/GI: Pt denies abdominal pain, n/v/d. : Pt denies dysuria, burning w/ urination, frequency/urgency. Denies new onset urinary or bowel incontinence. MSK: Pt denies myalgia, loss of strength or function in extremities. Neuro: Pt denies new onset weakness, paresthesias. - Related Data Home Medications Medication Instructions Recorded Confirmed Furosemide [Lasix] 20 mg PO BID@0700,1700 09/19/16 02/05/19 LORazepam [Ativan] 1 mg PO DAILY@0700 PRN 09/27/17 02/05/19 metFORMIN HCL [Glucophage] 250 mg PO DAILY@1700 09/27/17 02/05/19 Escitalopram [Lexapro] 20 mg PO HS@2200 01/15/18 02/05/19 Rizatriptan Benzoate [Maxalt AGRICULTURIST] 10 mg PO DAILY PRN 03/06/18 02/05/19 Cetirizine HCl [Zyrtec] 10 mg PO BID@0700,1900 06/13/18 02/05/19 Omeprazole 20 mg PO DAILY@0700 06/13/18 02/05/19 Diazepam [Valium] 10 mg PO DAILY@0700 08/03/18 02/05/19 Docusate [Colace] 100 mg PO DAILY@0700 08/03/18 02/05/19 Ondansetron [Zofran ODT] 4 mg SL Q6H PRN 08/03/18 02/05/19 Biotin 10,000 mcg PO BID@0700,1900 10/08/18 02/05/19 Ketorolac [Toradol] 10 mg PO Q6H PRN 10/08/18 02/05/19 Mirtazapine [Remeron] 15 mg PO HS@2100 10/08/18 02/05/19 Propranolol HCl 80 mg PO DAILY 10/08/18 02/05/19 buPROPion HCL [Wellbutrin XL] 300 mg PO DAILY@0700 12/24/18 02/05/19 Zolpidem [Ambien] 10 mg PO HS@2200 02/05/19 02/05/19 Allergies Allergy/AdvReac Type Severity Reaction Status Date / Time oxycodone [From Percocet] Allergy Unknown Swelling; Verified 02/25/19 18:40 (WAS ABLE TO TAKE ALONG WITH BENADRYL) apricot Allergy Dyspnea Verified 02/25/19 18:40 barium sulfate Allergy Anaphylaxis Verified 02/25/19 18:40 [From Readi-Cat] codeine Allergy Anaphylaxis Verified 02/25/19 18:40 hydrocodone [From Lortab] Allergy Swelling Verified 02/25/19 18:40 Iodinated Contrast- Oral and Allergy Anaphylaxis Verified 02/25/19 18:40 IV Dye iodine Allergy Rash/Hives Verified 02/25/19 18:40 iron Allergy Swelling Verified 02/25/19 18:40 morphine Allergy Rash/Hives Verified 02/25/19 18:40 peach Allergy Swelling Verified 02/25/19 18:40 peanut Allergy Swelling Verified 02/25/19 18:40 peanut oil Allergy Anaphylaxis Verified 02/25/19 18:40 shellfish derived [Shellfish] Allergy Anaphylaxis Verified 02/25/19 18:40 strawberry Allergy Anaphylaxis Verified 02/25/19 18:40 sucralfate [From Carafate] Allergy Swelling Verified 02/25/19 18:40 Sulfa (Sulfonamide Allergy Anaphylaxis Verified 02/25/19 18:40 Antibiotics) sulfamethoxazole Allergy Anaphylaxis Verified 02/25/19 18:40 [From Bactrim] tree nut [Nut] Allergy Swelling Verified 02/25/19 18:40 trimethoprim [From Bactrim] Allergy Anaphylaxis Verified 02/25/19 18:40 Review of Systems ROS Statement: Those systems with pertinent positive or pertinent negative responses have been documented in the HPI. ROS Other: All systems not noted in ROS Statement are negative. Past Medical History Past Medical History: Asthma, CVA/TIA, Diabetes Mellitus, GERD/Reflux, Hyperlipidemia, Hypertension, Osteoarthritis (OA), Pneumonia Additional Past Medical History / Comment(s): NIDDM. past tia 2016. diabetic neuropathy eli feet, migraines, cervical disc disease, DDD, eli tinnitis, arthiritis bilateral shoulders, fibrymyalgia,IBS, HX R arm fx yrs ago, R ovarian cyst, hiatal hernia, UTIs, urinary calculus, pancreatitis x 2, stomach ulcer. History of Any Multi-Drug Resistant Organisms: C-DIFF Date of last positivie culture/infection: 2015 MDRO Source:: None Past Surgical History: Appendectomy, Bariatric Surgery, Cholecystectomy, Tonsil lectomy Additional Past Surgical History / Comment(s): 2011 felix-en-Y, fistula repair 2011, 2011 gastric bypass revision, bowel resection, lap gastrojejunostomy anastamosis revision, EGD and colonoscopy, cone bx-cervical cancer remove with cryo, L fallopian tube removed due to cyst, picc line in and out, CERVICAL FUSION 12/21/16. Past Anesthesia/Blood Transfusion Reactions: Family History of Problems w/ Anesthesia, Motion Sickness, Postoperative Nausea & Vomiting (PONV) Additional Past Anesthesia/Blood Transfusion Reaction / Comment(s): Pt states she has never recieved blood. FAMILY HX PONV. Past Psychological History: Anxiety, Depression Smoking Status: Never smoker Past Alcohol Use History: None Reported Past Drug Use History: None Reported, Marijuana - Past Family History Brother(s) Family Medical History: Deep Vein Thrombosis (DVT) Father Family Medical History: Cancer Additional Family Medical History / Comment(s): Father had poss colon and lung cancer and at age 73yrs. Mother Family Medical History: Coronary Artery Disease (CAD), Diabetes Mellitus, Deep Vein Thrombosis (DVT), Hypertension Additional Family Medical History / Comment(s): Mother is alive and 73 yrs old. General Exam - General Exam Comments Initial Comments: Constitutional: NAD, AOX3, Pt has pleasant affect. HEENT: NC/AT, trachea midline, neck supple, no lymphadenopathy. Posterior p harynx non erythematous, without exudates. External ears appear normal, without discharge. Mucous membranes moist. Eyes PERRLA, EOM intact. There is no scleral icterus. No pallor noted. Cardiopulmonary: RRR, no murmurs, rubs or gallops, no JVD noted. Lungs CTAB in anterior and posterior elliott. No peripheral edema. Abdominal exam: Abdomen soft and non-distended. Abdomen mildly tender to palpation left upper quadrant. Bowel sounds active in LLQ. No hepatosplenomegaly. No ecchymosis Neuro: CN II-XII grossly intact. No nuchal rigidity. No raccon eyes, no nicole sign, no hemotympanum. No cervical spinal tenderness. MSK: No posterior calf tenderness bilaterally, homans sign negative bilaterally. Posterior tibialis and radial pulse +2 bilaterally. Sensation intact in upper and lower extremities. Full active ROM in upper and lower extremities, 5/5 stregnth. Limitations: no limitations Course Vital Signs 02/25/19 02/25/19 18:37 22:07 Temperature 99.1 F 97.7 F Pulse Rate 109 H 87 Respiratory 18 18 Rate Blood Pressure 106/70 99/66 O2 Sat by Pulse 96 100 Oximetry Medical Decision Making - Medical Decision Making 48-year-old female patient past history of chronic abdominal pain presents ED for abdominal pain. Patient reports that she has had some pain in her left upper quadrant and diarrhea since last night. Patient states this identical to symptoms that she has expires in the past. Denies chest pain shortness of breath, dysuria. Patient states that she is not . Denies any other complaints at this time. Patient will signs stable, afebrile. Abdomen mildly tender to palpation left upper quadrant. Shared decision making, patient does not wish to have another CT abdomen and pelvis due to to having 3 CTs this year for identical symptoms and radiation burden. Laboratory investigation revealed mild exact dose of 12.3, otherwise noncompressive. Urine negative, hCG negative. KUB displayed no acute process. Patient improved with analgesic, will discharge with outpatient follow-up. Patient to establish with Dr. Contreras and will f/u with PCP. Pt will return to ER if condition worsens in a [place]. Case discussed with Dr. De La Cruz. - Lab Data Result diagrams: 02/25/19 19:09 02/25/19 19:09 Lab Results 02/25/19 02/25/19 02/25/19 Range/Units 19: 19: 19:09 WBC 12.3 H (3.8-10.6) k/uL RBC 5.26 (3.80-5.40) m/uL Hgb 11.0 L (11.4-16.0) gm/dL Hct 36.3 (34.0-46.0) % MCV 69.0 L D (80.0-100.0) fL MCH 20.9 L (25.0-35.0) pg MCHC 30.3 L (31.0-37.0) g/dL RDW 15.9 H (11.5-15.5) % Plt Count 438 (150-450) k/uL Neutrophils % 59 % Lymphocytes % 33 % Monocytes % 4 % Eosinophils % 2 % Basophils % 1 % Neutrophils # 7.2 (1.3-7.7) k/uL Lymphocytes # 4.0 (1.0-4.8) k/uL Monocytes # 0.5 (0-1.0) k/uL Eosinophils # 0.2 (0-0.7) k/uL Basophils # 0.1 (0-0.2) k/uL Hypochromasia Moderate Microcytosis Marked Sodium 138 (137-145) mmol/L Potassium 4.0 (3.5-5.1) mmol/L Chloride 104 (98-107) mmol/L Carbon Dioxide 18 L (22-30) mmol/L Anion Gap 16 mmol/L BUN 12 (7-17) mg/dL Creatinine 0.71 (0.52-1.04) mg/dL Est GFR (CKD-EPI)AfAm >90 (>60 ml/min/1.73 sqM) Est GFR (CKD-EPI)NonAf >90 (>60 ml/min/1.73 sqM) Glucose 167 H (74-99) mg/dL Plasma Lactic Acid Adam (0.7-2.0) mmol/L Calcium 9.5 (8.4-10.2) mg/dL Total Bilirubin 0.5 (0.2-1.3) mg/dL AST 30 (14-36) U/L ALT 21 (9-52) U/L Alkaline Phosphatase 138 H (38-126) U/L Total Protein 8.4 H (6.3-8.2) g/dL Albumin 4.8 (3.5-5.0) g/dL Lipase 97 (23-300) U/L Urine Color Light Yellow Urine Appearance Clear (Clear) Urine pH 6.0 (5.0-8.0) Ur Specific [place] 1.007 (1.001-1.035) Urine Protein Negative (Negative) Urine Glucose (UA) Negative (Negative) Urine Ketones Negative (Negative) Urine Blood Negative (Negative) Urine Nitrite Negative (Negative) Urine Bilirubin Negative (Negative) Urine Urobilinogen <2.0 (<2.0) mg/dL Ur Leukocyte Esterase Negative (Negative) Urine HCG, Qual (Not Detectd) 02/25/19 02/25/19 Range/Units 19:09 19:09 WBC (3.8-10.6) k/uL RBC (3.80-5.40) m/uL Hgb (11.4-16.0) gm/dL Hct (34.0-46.0) % MCV (80.0-100.0) fL MCH (25.0-35.0) pg MCHC (31.0-37.0) g/dL RDW (11.5-15.5) % Plt Count (150-450) k/uL Neutrophils % % Lymphocytes % % Monocytes % % Eosinophils % % Basophils % % Neutrophils # (1.3-7.7) k/uL Lymphocytes # (1.0-4.8) k/uL Monocytes # (0-1.0) k/uL Eosinophils # (0-0.7) k/uL Basophils # (0-0.2) k/uL Hypochromasia Microcytosis Sodium (137-145) mmol/L Potassium (3.5-5.1) mmol/L Chloride (98-107) mmol/L Carbon Dioxide (22-30) mmol/L Anion Gap mmol/L BUN (7-17) mg/dL Creatinine (0.52-1.04) mg/dL Est GFR (CKD-EPI)AfAm (>60 ml/min/1.73 sqM) Est GFR (CKD-EPI)NonAf (>60 ml/min/1.73 sqM) Glucose (74-99) mg/dL Plasma Lactic Acid Adam 1.7 (0.7-2.0) mmol/L Calcium (8.4-10.2) mg/dL Total Bilirubin (0.2-1.3) mg/dL AST (14-36) U/L ALT (9-52) U/L Alkaline Phosphatase (38-126) U/L Total Protein (6.3-8.2) g/dL Albumin (3.5-5.0) g/dL Lipase (23-300) U/L Urine Color Urine Appearance (Clear) Urine pH (5.0-8.0) Ur Specific [place] (1.001-1.035) Urine Protein (Negative) Urine Glucose (UA) (Negative) Urine Ketones (Negative) Urine Blood (Negative) Urine Nitrite (Negative) Urine Bilirubin (Negative) Urine Urobilinogen (<2.0) mg/dL Ur Leukocyte Esterase (Negative) Urine HCG, Qual Not Detected (Not Detectd) Disposition Clinical Impression: Abdominal pain Disposition: HOME SELF-CARE Condition: Stable Instructions (If sedation given, give patient instructions): Abdominal Pain (ED) Additional Instructions: Patient to adhere to previously discussed treatment plan and will take medica tion(s) as directed. Patient to follow up with PCP in 1-2 days. Patient to return to ED if symptoms do not improve. Return to ER if condition worsens in any way. Follow-up with Dr. Christianson, Dr. Kelley and primary care provider. Is patient prescribed a controlled substance at d/c from ED?: No Referrals: Macy Knight MD [Primary Care Provider] - 1-2 days Osiris Contreras MD [STAFF PHYSICIAN] - 1-2 days Iván Kelley MD [STAFF PHYSICIAN] - 1-2 days
[2019-02-25 19:23] LABS: Basophils # (A) 0.1 k/uL (0-0.2); Basophils % (A) 1 %; Eosinophils # (A) 0.2 k/uL (0-0.7); Eosinophils % (A) 2 %; HCT 36.3 % (34.0-46.0); Hypochromasia Moderate; Lymphocytes % (A) 33 %; MCH 20.9 pg (25.0-35.0); MCHC 30.3 g/dL (31.0-37.0); Mean Platelet Volume 7.1; Microcytosis Marked; Monocytes # (A) 0.5 k/uL (0-1.0); Monocytes % (A) 4 %; Neutrophils # (A) 7.2 k/uL (1.3-7.7); Neutrophils % (A) 59 %; Platelet Count 438 k/uL (150-450); RBC 5.26 m/uL (3.80-5.40); RDW 15.9 % (11.5-15.5); WBC 12.3 k/uL (3.8-10.6)
[2019-02-25 19:34] LABS: ALT 21 U/L (9-52); AST 30 U/L (14-36); African American GFR (CKD) >90 (>60 ml/min/1.73 sqM); Albumin 4.8 g/dL (3.5-5.0); Alkaline Phosphatase 138 U/L (38-126); Anion Gap 16 mmol/L; Blood Urea Nitrogen 12 mg/dL (7-17); Calcium 9.5 mg/dL (8.4-10.2); Carbon Dioxide 18 mmol/L (22-30); Chloride 104 mmol/L (98-107); Glucose 167 mg/dL (74-99); Lipase 97 U/L (23-300); Sodium 138 mmol/L (137-145); Total Bilirubin 0.5 mg/dL (0.2-1.3); Total Protein 8.4 g/dL (6.3-8.2)
[2019-02-25 19:42] LABS: Appearance,Urine Clear (Clear); Bilirubin,Urine Negative (Negative); Blood,Urine Negative (Negative); Color,Urine Light Yellow; Glucose,Urine (UA) Negative (Negative); Ketones,Urine Negative (Negative); Leukocyte Esterase,Urine Negative (Negative); Nitrite,Urine Negative (Negative); Protein,Urine Negative (Negative); Specific Gravity,Urine 1.007 (1.001-1.035); Urobilinogen,Urine <2.0 mg/dL (<2.0)
--- NOTE | 2019-02-25 20:16 | XR ---
EXAMINATION TYPE: XR KUB, 2 VIEWS DATE OF EXAM: 02/25/2019 COMPARISON: 11/17/2018 HISTORY: Pain nausea diarrhea vomiting TECHNIQUE: 2 upright views FINDINGS: Visualized lung bases and pleural spaces are negative. No pneumoperitoneum or pneumatosis. The bowel gas pattern is within normal limits. Bilateral upper quadrant surgical clips redemonstrated. No definite acute skeletal or soft tissue findings. IMPRESSION: Negative examination.
[2019-02-25] MEDS ORDERED: HYDROmorphone 0.5 MG/0.5 ML SYRINGE IVP STA ×2 (20:31→21:29)
[2019-02-25] MEDS ORDERED: ONDANSETRON 4 MG/2 ML VIAL IVP STA (20:31)
[2019-02-25 22:10] VITALS: BP 99/66; PULSE 87; TEMP 97.7
== END 2019-02-25 22:30 | disposition home or self-care (01) ==
LOC: EC 18:16
DX: R10.12 Left upper quadrant pain (principal); R19.7 Diarrhea, unspecified; Z32.02 Encounter for pregnancy test, result negative; E11.40 Type 2 diabetes mellitus with diabetic neuropathy, unspecified; K21.9 Gastro-esophageal reflux disease without esophagitis; K58.9 Irritable bowel syndrome, unspecified; I10 Essential (primary) hypertension; F32.9 Major depressive disorder, single episode, unspecified; F41.9 Anxiety disorder, unspecified; Z86.73 Personal history of transient ischemic attack (TIA), and cerebral infarction without residual deficits; Z85.41 Personal history of malignant neoplasm of cervix uteri; Z79.84 Long term (current) use of oral hypoglycemic drugs; Z79.899 Other long term (current) drug therapy; Z88.5 Allergy status to narcotic agent; Z88.2 Allergy status to sulfonamides; Z91.013 Allergy to seafood; Z91.018 Allergy to other foods; Z91.010 Allergy to peanuts; Z88.8 Allergy status to other drugs, medicaments and biological substances; Z88.1 Allergy status to other antibiotic agents; Z91.041 Radiographic dye allergy status; Z98.84 Bariatric surgery status; Z90.49 Acquired absence of other specified parts of digestive tract
CPT/HCPCS: 36415; 80053; 83605; 83690; 85025; 81003; 81025; 74018; 99284; 96374; 96375 ×2; 96376; 96361; J2405; J1885; J1170

== ENCOUNTER → 2019-03-25 | Outpatient (CLI) | payer OTHER ==
[2019-03-25 15:27] LABS: Anisocytosis Slight; HCT 34.2 % (34.0-46.0); Hypochromasia Marked; MCH 21.6 pg (25.0-35.0); MCHC 29.3 g/dL (31.0-37.0); MCV 73.6 fL (80.0-100.0); Mean Platelet Volume 6.9; Microcytosis Slight; Platelet Count 339 k/uL (150-450); RBC 4.64 m/uL (3.80-5.40); RDW 16.1 % (11.5-15.5); WBC 7.5 k/uL (3.8-10.6)
[2019-03-25 15:34] LABS: INR 0.9 (<1.2)
[2019-03-25 15:47] LABS: Partial Thromboplastin Time 21.3 sec (22.0-30.0)
[2019-03-25 19:23] LABS: African American GFR (CKD) 87.6 (60.0-200.0); Albumin 4.3 g/dL (3.80-4.90); Albumin/Globulin Ratio 1.79 (1.60-3.17); Anion Gap 9.9 mmol/L (4.00-12.00); BUN/Creat Ratio 17.78 Ratio (12.00-20.00); Carbon Dioxide 23.1 mmol/L (21.6-31.8); Globulin 2.4 g/dL (1.6-3.3); Magnesium 1.8 mg/dL (1.5-2.4); Phosphorus 4.5 mg/dL (2.4-5.1); Potassium 4.2 mmol/L (3.5-5.5); Total Bilirubin 0.4 mg/dL (0.3-1.2); Total Protein 6.7 g/dL (6.2-8.2)
[2019-03-25 19:32] LABS: Vitamin D 25 Hydroxy 19.2 ng/mL (30.0-100.0)
[2019-03-25 19:35] LABS: Folate, Serum 20.5 ng/mL; Iron Saturation 4.18 (12.00-45.00)
[2019-03-25 20:12] LABS: Hemoglobin A1C 7.7 % (4.0-6.0)
[2019-03-26 12:07] LABS: Zinc, Serum 86 ug/dL (60-130)
[2019-03-26 13:43] LABS: Vit B1(Thiamine) 67 ug/L (38-122)
[2019-03-27 06:30] LABS: Vitamin A 50 ug/dL (38-106)
== END | disposition home or self-care (01) ==
LOC: LABWHC1 14:44
PROVIDERS: ATTEND Surgery Plastic and Reconstructive Surgery
DX: E89.1 Postprocedural hypoinsulinemia (principal); D50.8 Other iron deficiency anemias; K90.89 Other intestinal malabsorption; E55.9 Vitamin D deficiency, unspecified; K74.1 Hepatic sclerosis; N19 Unspecified kidney failure; K50.90 Crohn's disease, unspecified, without complications
CPT/HCPCS: 36415; 80053; 80061; 82306; 82525; 82607; 82728; 82746; 83036; 83540; 83550; 83735; 83970; 84100; 84134; 84255; 84425; 84443; 84590; 84630; 85027; 85610; 85730

== ENCOUNTER 2019-04-23 15:58 | Emergency (ER) | payer OTHER ==
[2019-04-23 16:03] VITALS: RESP 18
[2019-04-23] MEDS ORDERED: ONDANSETRON 4 MG/2 ML VIAL IVP STA (16:29)
[2019-04-23] MEDS ORDERED: SODIUM CHLORIDE 0.9% 1,000 ML IV STA (16:29)
[2019-04-23] MEDS ORDERED: KETOROLAC 30 MG/ML 1 ML VIAL IVP STA (16:29)
[2019-04-23] MEDS ORDERED: methylPREDNISolone SOD SUCCI 125 MG/2 ML VIAL IV STA (16:32)
[2019-04-23] MEDS ORDERED: FAMOTIDINE 20 MG/2 ML VIAL IV STA (16:32)
[2019-04-23] MEDS ORDERED: diphenhydrAMINE 50 MG/ML 1 ML VIAL IVP STA (16:33)
--- NOTE | 2019-04-23 16:47 | ED ---
General Adult HPI - General Chief complaint: Abdominal Pain Stated complaint: lt sided pain Time Seen by Provider: 04/23/19 16:04 Source: patient, RN notes reviewed Mode of arrival: ambulatory Limitations: no limitations - History of Present Illness Initial comments: 48-year-old female with a past medical history significant for IBS, fibromyalgia, UTI, pancreatitis, diabetes mellitus, gastric bypass, intussusception, ileus diverticulitis presents to the emergency department for left lower quadrant pain. Patient states that this has been ongoing for 3 weeks. States it worsened last night to the point. States she is having nausea as well as vomiting. Patient is also having several bouts of diarrhea. Denies any recent travel or camping.Patient has no other complaints at this time including shortness of breath, chest pain, abdominal pain, nausea or vomiting, headache, or visual changes. - Related Data Home Medications Medication Instructions Recorded Confirmed Furosemide [Lasix] 20 mg PO BID@0700,1700 09/19/16 04/23/19 LORazepam [Ativan] 1 mg PO HS 09/27/17 04/23/19 metFORMIN HCL [Glucophage] 250 mg PO DAILY@1700 09/27/17 04/23/19 Escitalopram [Lexapro] 20 mg PO HS@2200 01/15/18 04/23/19 Rizatriptan Benzoate [Maxalt TUNGSTEN REFINER] 10 mg PO DAILY PRN 03/06/18 04/23/19 Cetirizine HCl [Zyrtec] 10 mg PO BID@0700,1900 06/13/18 04/23/19 Omeprazole 20 mg PO DAILY@0700 06/13/18 04/23/19 Docusate [Colace] 100 mg PO DAILY@0700 08/03/18 04/23/19 Ondansetron [Zofran ODT] 4 mg SL Q6H PRN 08/03/18 04/23/19 Biotin 10,000 mcg PO BID@0700,1900 10/08/18 04/23/19 Ketorolac [Toradol] 10 mg PO Q4H PRN 10/08/18 04/23/19 Mirtazapine [Remeron] 15 mg PO HS@2100 10/08/18 04/23/19 buPROPion HCL [Wellbutrin XL] 300 mg PO DAILY@0700 12/24/18 04/23/19 Zolpidem [Ambien] 10 mg PO HS@2200 02/05/19 04/23/19 Dicyclomine [Bentyl] 20 mg PO QID PRN 04/23/19 04/23/19 Diphenox-Atrop 2.5-0.025 mg 1 tab PO QID PRN 04/23/19 04/23/19 [Lomotil] LORazepam [Ativan] 0.5 mg PO QAM 04/23/19 04/23/19 Propranolol HCl [Inderal Xl] 80 mg PO DAILY 04/23/19 04/23/19 Previous Rx's Medication Instructions Recorded Cephalexin [Keflex] 500 mg PO Q6H 14 Days #56 cap 04/23/19 Allergies Allergy/AdvReac Type Severity Reaction Status Date / Time oxycodone [From Percocet] Allergy Unknown Swelling; Verified 04/23/19 16:56 (WAS ABLE TO TAKE ALONG WITH BENADRYL) apricot Allergy Dyspnea Verified 04/23/19 16:56 barium sulfate Allergy Anaphylaxis Verified 04/23/19 16:56 [From Readi-Cat] codeine Allergy Anaphylaxis Verified 04/23/19 16:56 hydrocodone [From Lortab] Allergy Swelling Verified 04/23/19 16:56 Iodinated Contrast- Oral and Allergy Anaphylaxis Verified 04/23/19 16:56 IV Dye iodine Allergy Rash/Hives Verified 04/23/19 16:56 iron Allergy Swelling Verified 04/23/19 16:56 morphine Allergy Rash/Hives Verified 04/23/19 16:56 peach Allergy Swelling Verified 04/23/19 16:56 peanut Allergy Swelling Verified 04/23/19 16:56 peanut oil Allergy Anaphylaxis Verified 04/23/19 16:56 shellfish derived [Shellfish] Allergy Anaphylaxis Verified 04/23/19 16:56 strawberry Allergy Anaphylaxis Verified 04/23/19 16:56 sucralfate [From Carafate] Allergy Swelling Verified 04/23/19 16:56 Sulfa (Sulfonamide Allergy Anaphylaxis Verified 04/23/19 16:56 Antibiotics) sulfamethoxazole Allergy Anaphylaxis Verified 04/23/19 16:56 [From Bactrim] tree nut [Nut] Allergy Swelling Verified 04/23/19 16:56 trimethoprim [From Bactrim] Allergy Anaphylaxis Verified 04/23/19 16:56 Review of Systems ROS Statement: Those systems with pertinent positive or pertinent negative responses have been documented in the HPI. ROS Other: All systems not noted in ROS Statement are negative. Past Medical History Past Medical History: Asthma, CVA/TIA, Diabetes Mellitus, GERD/Reflux, Hyperlipidemia, Hypertension, Osteoarthritis (OA), Pneumonia Additional Past Medical History / Comment(s): NIDDM. past tia 2016. diabetic neuropathy eli feet, migraines, cervical disc disease, DDD, eli tinnitis, arthiritis bilateral shoulders, fibrymyalgia,IBS, HX R arm fx yrs ago, R ovarian cyst, hiatal hernia, UTIs, urinary calculus, pancreatitis x 2, stomach ulcer. History of Any Multi-Drug Resistant Organisms: C-DIFF Date of last positivie culture/infection: 2015 MDRO Source:: None Past Surgical History: Appendectomy, Bariatric Surgery, Cholecystectomy, Tonsillectomy Additional Past Surgical History / Comment(s): 2010 felix-en-Y, fistula repair 2011, 2011 gastric bypass revision, bowel resection, lap gastrojejunostomy a nastamosis revision, EGD and colonoscopy, cone bx-cervical cancer remove with cryo, L fallopian tube removed due to cyst, picc line in and out, CERVICAL FUSION 12/21/16. Past Anesthesia/Blood Transfusion Reactions: Family History of Problems w/ Anesthesia, Motion Sickness, Postoperative Nausea & Vomiting (PONV) Additional Past Anesthesia/Blood Transfusion Reaction / Comment(s): Pt states she has never recieved blood. FAMILY HX PONV. Past Psychological History: Anxiety, Depression Smoking Status: Never smoker Past Alcohol Use History: None Reported Past Drug Use History: None Reported - Past Family History Brother(s) Family Medical History: Deep Vein Thrombosis (DVT) Father Family Medical History: Cancer Additional Family Medical History / Comment(s): Father had poss colon and lung cancer and at age 73yrs. Mother Family Medical History: Coronary Artery Disease (CAD), Diabetes Mellitus, Deep Vein Thrombosis (DVT), Hypertension Additional Family Medical History / Comment(s): Mother is alive and 73 yrs old. General Exam Limitations: no limitations General appearance: alert, in no apparent distress Head exam: Present: atraumatic, normocephalic, normal inspection Eye exam: Present: normal appearance, PERRL, EOMI. Absent: scleral icterus, conjunctival injection, periorbital swelling, periorbital tenderness ENT exam: Present: normal exam, mucous membranes moist Neck exam: Present: normal inspection, full ROM. Absent: tenderness, meningismus, lymphadenopathy Respiratory exam: Present: normal lung sounds bilaterally. Absent: respiratory distress, wheezes, rales, rhonchi, stridor Cardiovascular Exam: Present: regular rate, normal rhythm, normal heart sounds. Absent: systolic murmur, diastolic murmur, rubs, gallop, clicks GI/Abdominal exam: Present: soft, tenderness (Left lower quadrant and left upper quadrant tenderness), normal bowel sounds. Absent: distended, guarding, rebound, rigid Neurological exam: Present: alert Course Vital Signs 04/23/19 16:00 Temperature 98.1 F Pulse Rate 90 Respiratory 18 Rate Blood Pressure 152/79 O2 Sat by Pulse 100 Oximetry Medical Decision Making - Medical Decision Making 40-year-old female presents for left lower quadrant pain. This has been ongoing for 3 weeks and in fact since her gastric bypass surgery. However worsen last night and she is concerned because she is a history of diverticulitis, ileus, intussusception. Patient is passing gas. Nauseous and vomiting as well as diarrhea. Diarrhea started last night. Exam does reveal left upper and lower quadrant abdominal tenderness. Vitals are stable.CBC CMP unremarkable. Urine however does show [address] abdomen and pelvis shows no sign of acute abdomen or pelvis. Pain is likely secondary to urinary tract infection. Patient given dose of Rocephin here in the emergency department and antibiotics will be started outpatient. Given patient's abdominal pain she will be treated with a longer course of antibiotics, however no CVA tenderness or fever to signify pyelo. She will follow up with primary care in 1-2 days. She'll return if she has any worsening symptoms. - Lab Data Result diagrams: 04/23/19 16:38 04/23/19 16:38 Lab Results 04/23/19 04/23/19 04/23/19 Range/Units 16:38 16:38 16:38 WBC 9.1 (3.8-10.6) k/uL RBC 5.08 (3.80-5.40) m/uL Hgb 11.4 (11.4-16.0) gm/dL Hct 36.5 (34.0-46.0) % MCV 71.9 L (80.0-100.0) fL MCH 22.4 L (25.0-35.0) pg MCHC 31.1 (31.0-37.0) g/dL RDW 20.0 H (11.5-15.5) % Plt Count 353 (150-450) k/uL Neutrophils % 55 % Lymphocytes % 35 % Monocytes % 4 % Eosinophils % 2 % Basophils % 1 % Neutrophils # 5.0 (1.3-7.7) k/uL Lymphocytes # 3.2 (1.0-4.8) k/uL Monocytes # 0.4 (0-1.0) k/uL Eosinophils # 0.2 (0-0.7) k/uL Basophils # 0.1 (0-0.2) k/uL Hypochromasia Moderate Anisocytosis Moderate Microcytosis Marked Sodium 141 (137-145) mmol/L Potassium 3.9 (3.5-5.1) mmol/L Chloride 108 H (98-107) mmol/L Carbon Dioxide 20 L (22-30) mmol/L Anion Gap 13 mmol/L BUN 17 (7-17) mg/dL Creatinine 0.75 (0.52-1.04) mg/dL Est GFR (CKD-EPI)AfAm >90 (>60 ml/min/1.73 sqM) Est GFR (CKD-EPI)NonAf >90 (>60 ml/min/1.73 sqM) Glucose 143 H (74-99) mg/dL Plasma Lactic Acid Adam 1.5 (0.7-2.0) mmol/L Calcium 9.4 (8.4-10.2) mg/dL Total Bilirubin 0.5 (0.2-1.3) mg/dL AST 43 H (14-36) U/L ALT 33 (9-52) U/L Alkaline Phosphatase 106 (38-126) U/L Total Protein 7.9 (6.3-8.2) g/dL Albumin 4.5 (3.5-5.0) g/dL Amylase 47 (30-110) U/L Lipase 43 (23-300) U/L Urine Color Urine Appearance (Clear) Urine pH (5.0-8.0) Ur Specific [place] (1.001-1.035) Urine Protein (Negative) Urine Glucose (UA) (Negative) Urine Ketones (Negative) Urine Blood (Negative) Urine Nitrite (Negative) Urine Bilirubin (Negative) Urine Urobilinogen (<2.0) mg/dL Ur Leukocyte Esterase (Negative) Urine WBC (0-5) /hpf Ur Squamous Epith Cells (0-4) /hpf 04/23/19 Range/Units 18:47 WBC (3.8-10.6) k/uL RBC (3.80-5.40) m/uL Hgb (11.4-16.0) gm/dL Hct (34.0-46.0) % MCV (80.0-100.0) fL MCH (25.0-35.0) pg MCHC (31.0-37.0) g/dL RDW (11.5-15.5) % Plt Count (150-450) k/uL Neutrophils % % Lymphocytes % % Monocytes % % Eosinophils % % Basophils % % Neutrophils # (1.3-7.7) k/uL Lymphocytes # (1.0-4.8) k/uL Monocytes # (0-1.0) k/uL Eosinophils # (0-0.7) k/uL Basophils # (0-0.2) k/uL Hypochromasia Anisocytosis Microcytosis Sodium (137-145) mmol/L Potassium (3.5-5.1) mmol/L Chloride (98-107) mmol/L Carbon Dioxide (22-30) mmol/L Anion Gap mmol/L BUN (7-17) mg/dL Creatinine (0.52-1.04) mg/dL Est GFR (CKD-EPI)AfAm (>60 ml/min/1.73 sqM) Est GFR (CKD-EPI)NonAf (>60 ml/min/1.73 sqM) Glucose (74-99) mg/dL Plasma Lactic Acid Adam (0.7-2.0) mmol/L Calcium (8.4-10.2) mg/dL Total Bilirubin (0.2-1.3) mg/dL AST (14-36) U/L ALT (9-52) U/L Alkaline Phosphatase (38-126) U/L Total Protein (6.3-8.2) g/dL Albumin (3.5-5.0) g/dL Amylase (30-110) U/L Lipase (23-300) U/L Urine Color Yellow Urine Appearance Clear (Clear) Urine pH 6.5 (5.0-8.0) Ur Specific [place] >1.050 H (1.001-1.035) Urine Protein Trace H (Negative) Urine Glucose (UA) Negative (Negative) Urine Ketones Negative (Negative) Urine Blood Negative (Negative) Urine Nitrite Negative (Negative) Urine Bilirubin Negative (Negative) Urine Urobilinogen <2.0 (<2.0) mg/dL Ur Leukocyte Esterase Large H (Negative) Urine WBC 46 H (0-5) /hpf Ur Squamous Epith Cells 1 (0-4) /hpf Disposition Clinical Impression: Urinary tract infection Disposition: HOME SELF-CARE Condition: Good Instructions (If sedation given, give patient instructions): Urinary Tract Infection in Women (ED) Additional Instructions: Please take Antibiotic as directed. Please follow-up with primary care in 1-2 days. Return to the emergency department if you have any worsening symptoms. Prescriptions: Cephalexin [Keflex] 500 mg PO Q6H 14 Days #56 cap Is patient prescribed a controlled substance at d/c from ED?: No Referrals: Macy Knight MD [Primary Care Provider] - 1-2 days Time of Disposition: 19:19
[2019-04-23 16:53] LABS: Anisocytosis Moderate; Basophils # (A) 0.1 k/uL (0-0.2); Basophils % (A) 1 %; Eosinophils # (A) 0.2 k/uL (0-0.7); Eosinophils % (A) 2 %; HCT 36.5 % (34.0-46.0); HGB 11.4 gm/dL (11.4-16.0); Hypochromasia Moderate; Lymphocytes # (A) 3.2 k/uL (1.0-4.8); Lymphocytes % (A) 35 %; MCH 22.4 pg (25.0-35.0); MCHC 31.1 g/dL (31.0-37.0); MCV 71.9 fL (80.0-100.0); Microcytosis Marked; Monocytes # (A) 0.4 k/uL (0-1.0); Monocytes % (A) 4 %; Neutrophils % (A) 55 %; Platelet Count 353 k/uL (150-450); RBC 5.08 m/uL (3.80-5.40); WBC 9.1 k/uL (3.8-10.6)
[2019-04-23 17:07] LABS: ALT 33 U/L (9-52); AST 43 U/L (14-36); African American GFR (CKD) >90 (>60 ml/min/1.73 sqM); Albumin 4.5 g/dL (3.5-5.0); Alkaline Phosphatase 106 U/L (38-126); Amylase 47 U/L (30-110); Anion Gap 13 mmol/L; Blood Urea Nitrogen 17 mg/dL (7-17); Calcium 9.4 mg/dL (8.4-10.2); Carbon Dioxide 20 mmol/L (22-30); Chloride 108 mmol/L (98-107); Glucose 143 mg/dL (74-99); Potassium 3.9 mmol/L (3.5-5.1); Sodium 141 mmol/L (137-145); Total Bilirubin 0.5 mg/dL (0.2-1.3); Total Protein 7.9 g/dL (6.3-8.2)
--- NOTE | 2019-04-23 17:53 | CT ---
EXAMINATION TYPE: CT abdomen pelvis w con DATE OF EXAM: 04/23/2019 COMPARISON: 11/10/2018 HISTORY: Left side abdominal pain. Vomiting and diarrhea CT DLP: 1213.8 mGycm Automated exposure control for dose reduction was used. TECHNIQUE: Helical acquisition of images was performed from the lung bases through the pelvis. CONTRAST: Performed without Oral Contrast and with IV Contrast, patient injected with 100 mL of Isovue 300. FINDINGS: Lung bases are clear. There is no pleural effusion. Heart size is normal. There is no pericardial eff usion. There are surgical clips from gastric apparent bariatric surgery. There are clips from cholecy stectomy. Bile ducts are not dilated. There is no focal liver defect. Spleen appears normal. There is no pancreatic mass. There is no adrenal mass. Kidneys show satisfactory contrast opacification. There is no hydronephrosi s. There are clips from appendectomy. Bladder distends smoothly. There is no inguinal hernia. There i s no free fluid in the pelvis. Uterus is anteverted. There is no evidence of a pelvic mass. There is no ascites. There is no evidence of pneumoperitoneum. Bony pelvis is intact. Lumbar spine is intact. There is no mesenteric edema. There is no free air. IMPRESSION: NO SIGN OF ACUTE ABDOMEN AND PELVIS. PREVIOUS SURGERY. NO ADVERSE CHANGE COMPARED TO OLD EXAM.
[2019-04-23] MEDS ORDERED: HYDROmorphone 0.5 MG/0.5 ML SYRINGE IVP STA (18:40)
[2019-04-23 19:00] LABS: Appearance,Urine Clear (Clear); Bilirubin,Urine Negative (Negative); Blood,Urine Negative (Negative); Color,Urine Yellow; Glucose,Urine (UA) Negative (Negative); Ketones,Urine Negative (Negative); Leukocyte Esterase,Urine Large (Negative); Nitrite,Urine Negative (Negative); PH, Urine 6.5 (5.0-8.0); Protein,Urine Trace (Negative); Squamous Epithelial Cell,Urine 1 /hpf (0-4); Urobilinogen,Urine <2.0 mg/dL (<2.0); WBC,Urine 46 /hpf (0-5)
[2019-04-23 19:11] LABS: Specific Gravity,Urine >1.050 (1.001-1.035)
[2019-04-23] MEDS ORDERED: cefTRIAXone IN SWFI 1,000 MG/10 ML SYRINGE IVP STA (19:16)
[2019-04-23 19:34] VITALS: BP 107/77; PULSE 81; TEMP 98.3
== END 2019-04-23 19:33 | disposition home or self-care (01) ==
LOC: EC 15:58
DX: N39.0 Urinary tract infection, site not specified (principal); R11.2 Nausea with vomiting, unspecified; R19.7 Diarrhea, unspecified; E11.40 Type 2 diabetes mellitus with diabetic neuropathy, unspecified; K21.9 Gastro-esophageal reflux disease without esophagitis; I10 Essential (primary) hypertension; F41.9 Anxiety disorder, unspecified; F32.9 Major depressive disorder, single episode, unspecified; Z90.49 Acquired absence of other specified parts of digestive tract; Z98.84 Bariatric surgery status; Z85.41 Personal history of malignant neoplasm of cervix uteri; Z86.73 Personal history of transient ischemic attack (TIA), and cerebral infarction without residual deficits; Z90.79 Acquired absence of other genital organ(s); Z87.19 Personal history of other diseases of the digestive system; Z87.42 Personal history of other diseases of the female genital tract; Z79.84 Long term (current) use of oral hypoglycemic drugs; Z79.899 Other long term (current) drug therapy; Z88.5 Allergy status to narcotic agent; Z91.018 Allergy to other foods; Z91.041 Radiographic dye allergy status; Z91.010 Allergy to peanuts; Z91.013 Allergy to seafood; Z88.8 Allergy status to other drugs, medicaments and biological substances; Z88.2 Allergy status to sulfonamides; Z53.8 Procedure and treatment not carried out for other reasons
CPT/HCPCS: 36415; 80053; 82150; 83605; 83690; 85025; 81001; 87086; 74177; 99284; 96374; 96375 ×5; 96361 ×2; J1200; J2930; J2405; J1885; J1170; Q9967

== ENCOUNTER → 2019-06-06 | Day surgery (SDC) | payer OTHER ==
[2019-06-04 10:46] VITALS: BMI 29.6
[~2019-06-06] MED LIST: LACTATED RINGERS 1,000 ML IV SCH; LIDOCAINE 1% 20 ML VIAL (10MG/ML) FOR IV START INTRADERMA PRN; PHENYLEPHRINE-0.9% NACL SYG 1 MG/10 ML SYRINGE ONE; PROPOFOL 10 MG/ML 20 ML VIAL IV ONE
[2019-06-06 06:58] VITALS: TEMP 97.2
[2019-06-06 07:03] LABS: Glucose,Whole Blood 167 mg/dL (75-99)
--- NOTE | 2019-06-06 07:06 | P.GSHP ---
History of Present Illness H&P Date: 06/06/19 CHIEF COMPLAINT: GERD and colon screen HISTORY OF PRESENT ILLNESS: The patient is a 48-year-old female who presents with gastroesophageal reflux disease and need for colon screen. Upper and lower endoscopy were offered for further evaluation and management. PAST MEDICAL HISTORY: Please see list. PAST SURGICAL HISTORY: Please see list. MEDICATIONS: Please see list. ALLERGIES: Please see list. SOCIAL HISTORY: No illicit drug use FAMILY HISTORY: No reports of Crohn disease or ulcerative colitis. REVIEW OF ORGAN SYSTEMS: CONSTITUTIONAL: No reports of fevers or chills. GI: Denies any blood in stools or constipation. PHYSICAL EXAM: VITAL SIGNS: Stable GENERAL: Well-developed pleasant in no acute distress. HEENT: No scleral icterus. Extraocular movements grossly intact. Moist buccal mucosa. NECK: Supple without lymphadenopathy. CHEST: Unlabored respirations. Equal bilateral excursions. CARDIOVASCULAR: Regular rate and rhythm. Distal 2+ pulses. ABDOMEN: Soft, nondistended. MUSCULOSKELETAL: No clubbing, cyanosis, or edema. ASSESSMENT: 1. Gastroesophageal reflux disease 2. Colon screen. PLAN: 1. Recommend proceeding with an upper and lower endoscopy Past Medical History Past Medical History: Asthma, Cancer, CVA/TIA, Diabetes Mellitus, Fibromyalgia, GERD/Reflux, Hearing Disorder / Deafness, Hyperlipidemia, Hypertension, Osteoarthritis (OA), Pneumonia Additional Past Medical History / Comment(s): Had Iron infusions in Apr 2019. Current double earache, on antibiotics, Dr Contreras aware. Hx TIA 2015. Diabetic neuropathy eli feet, migraines, cervical disc disease, DDD, eli tinnitis, arthiritis bilateral shoulders, IBS, HX R arm fx yrs ago, R ovarian cyst, hiatal hernia, UTIs, urinary calculus, pancreatitis x 2, stomach ulcer. Hx cervical cancer. History of Any Multi-Drug Resistant Organisms: C-DIFF Date of last positivie culture/infection: 2015 MDRO Source:: None Past Surgical History: Appendectomy, Bariatric Surgery, Cholecystectomy, Tonsillectomy Additional Past Surgical History / Comment(s): 2011 felix-en-Y, fistula repair 2011, 2011 gastric bypass revision, bowel resection, lap gastrojejunostomy anastamosis revision, EGD and colonoscopy, cone bx-cervical cancer removed with cryo, L fallopian tube removed due to cyst, picc line in and out, CERVICAL FUSION 12/21/16. Past Anesthesia/Blood Transfusion Reactions: Family History of Problems w/ Anesthesia, Motion Sickness, Postoperative Nausea & Vomiting (PONV) Additional Past Anesthesia/Blood Transfusion Reaction / Comment(s): Pt states she has never recieved blood. FAMILY HX PONV. Past Psychological History: Anxiety, Depression Smoking Status: Never smoker Past Alcohol Use History: None Reported Past Drug Use History: None Reported - Past Family History Brother(s) Family Medical History: Deep Vein Thrombosis (DVT) Father Family Medical History: Cancer Additional Family Medical History / Comment(s): Father had poss colon and lung cancer and at age 73yrs. Mother Family Medical History: Coronary Artery Disease (CAD), Diabetes Mellitus, Deep Vein Thrombosis (DVT), Hypertension Additional Family Medical History / Comment(s): Mother is alive and 73 yrs old. Medications and Allergies Home Medications Medication Instructions Recorded Confirmed Type Furosemide [Lasix] 20 mg PO QAM 09/19/16 06/06/19 History LORazepam [Ativan] 1 mg PO HS PRN 09/27/17 06/04/19 History metFORMIN HCL [Glucophage] 250 mg PO AC-SUPPER 09/27/17 06/06/19 History Escitalopram [Lexapro] 20 mg PO HS 01/15/18 06/06/19 History Rizatriptan Benzoate [Maxalt [employer]CH[employer]ICIAN] 10 mg PO Q4HR PRN 03/06/18 06/04/19 History Cetirizine HCl [Zyrtec] 10 mg PO HS 06/13/18 06/06/19 History Ondansetron [Zofran ODT] 4 mg SL Q6H PRN 08/03/18 06/04/19 History Biotin 10,000 mcg PO HS 10/08/18 06/04/19 History Mirtazapine [Remeron] 15 mg PO HS PRN 10/08/18 06/04/19 History buPROPion HCL [Wellbutrin XL] 300 mg PO QAM 12/24/18 06/06/19 History LORazepam [Ativan] 0.5 mg PO QAM PRN 04/23/19 06/04/19 History Propranolol HCl [Inderal Xl] 80 mg PO DAILY PRN 04/23/19 05/05/19 History Acetaminophen [Tylenol Extra 1,000 mg PO DIRECTED PRN 05/05/19 06/04/19 History Strength] Aspirin 325 mg PO DAILY 05/05/19 06/04/19 History Cholecalciferol (Vitamin D3) 5,000 unit PO BID 05/05/19 06/04/19 History [Vitamin D3] Diazepam [Valium] 0.5 mg PO DAILY PRN 05/05/19 06/06/19 History Multivitamin [Multivitamins Adult 1 each PO DAILY 05/05/19 06/04/19 History Gummies] Nasal Decongestant Otc 30 mg PO BID 06/04/19 06/04/19 History Allergies Allergy/AdvReac Type Severity Reaction Status Date / Time oxycodone [From Percocet] Allergy Unknown Swelling; Verified 06/06/19 06:52 (WAS ABLE TO TAKE ALONG WITH BENADRYL) apricot Allergy Dyspnea Verified 06/06/19 06:52 barium sulfate Allergy Anaphylaxis Verified 06/06/19 06:52 [From Readi-Cat] codeine Allergy Anaphylaxis Verified 06/06/19 06:52 fentanyl Allergy Rash/Hives Verified 06/06/19 06:52 hydrocodone [From Lortab] Allergy Swelling Verified 06/06/19 06:52 Iodinated Contrast Media Allergy Anaphylaxis Verified 06/06/19 06:52 iodine Allergy Rash/Hives Verified 06/06/19 06:52 iron Allergy Swelling Verified 06/06/19 06:52 levofloxacin [From Levaquin] Allergy Swelling Verified 06/06/19 06:52 morphine Allergy Rash/Hives, Verified 06/06/19 06:52 Nausea/Vomiting peach Allergy Swelling Verified 06/06/19 06:52 peanut Allergy Swelling Verified 06/06/19 06:52 peanut oil Allergy Anaphylaxis Verified 06/06/19 06:52 shellfish derived [Shellfish] Allergy Anaphylaxis Verified 06/06/19 06:52 strawberry Allergy Anaphylaxis Verified 06/06/19 06:52 sucralfate [From Carafate] Allergy Swelling Verified 06/06/19 06:52 Sulfa (Sulfonamide Allergy Anaphylaxis Verified 06/06/19 06:52 Antibiotics) sulfamethoxazole Allergy Anaphylaxis Verified 06/06/19 06:52 [From Bactrim] tree nut [Nut] Allergy Swelling Verified 06/06/19 06:52 trimethoprim [From Bactrim] Allergy Anaphylaxis Verified 06/06/19 06:52 Surgical - Exam Vital Signs Temp Pulse Resp BP Pulse Ox 97.2 F L 102 H 17 115/79 97 06/06/19 06:57 06/06/19 06:57 06/06/19 06:57 06/06/19 06:57 06/06/19 06:57 Results - Labs Abnormal Lab Results - Last 24 Hours (Table) 06/06/19 Range/Units 07:00 POC Glucose (mg/dL) 167 H (75-99) mg/dL
--- NOTE | 2019-06-06 07:46 | P.PCN ---
Date of Procedure: 06/06/19 Description of Procedure: PREOPERATIVE DIAGNOSIS: Colonoscopy screening, high risk Family history colon polyps POSTOPERATIVE DIAGNOSIS: Colonoscopy screening, high risk Family history colon polyps OPERATION: Colonoscopy to the ileocecal valve and appendiceal orifice. SURGEON: Osiris Contreras MD. ANESTHESIA: MAC. INDICATIONS: The patient is a 53-year-old female who presents for colonoscopy screening. Benefits and risks were described and informed consent was obtained. DESCRIPTION OF PROCEDURE: The patient had undergone Gatorade, MiraLAX and Dulcolax prep. She had been brought into the operating room and laid in the left lateral decubitus position. After adequate intravenous sedation, the rectum was examined with 2% lidocaine jelly. No external hemorrhoids were encountered. The rectal tone was within normal limits. No lesions were palpated in the rectal vault. An Olympus colonoscope was advanced until the ileocecal valve and appendiceal orifice were clearly viewed. The prep was fair. No large colonic polyps were found. No evidence of focal colitis was found. Retroflexion of the scope demonstrated grade 1 internal hemorrhoids without active bleeding or inflammation. The colon was desufflated. The patient had tolerated the procedure well. Withdrawal time was over 6 minutes. FINDINGS: Aronchick preparation quality scale 3 (1-5) Internal hemorrhoids, grade 1 No external prolapsed hemorrhoids. No arteriovenous malformations. No adenomatous polyps. No focal colitis. RECOMMENDATIONS: Lower endoscopy in 5 years, 2023 for family history of colon polyps Additional CC's: Macy Knight Plan - Discharge Summary Discharge Rx Participant: Yes New Discharge Prescriptions: No Action Furosemide [Lasix] 20 mg PO QAM LORazepam [Ativan] 1 mg PO HS PRN PRN Reason: Takes with Maxalt metFORMIN HCL [Glucophage] 250 mg PO AC-SUPPER Escitalopram [Lexapro] 20 mg PO HS Rizatriptan Benzoate [Maxalt CLINICAL APPEALS RN] 10 mg PO Q4HR PRN PRN Reason: Migraine Headache Cetirizine HCl [Zyrtec] 10 mg PO HS Ondansetron [Zofran ODT] 4 mg SL Q6H PRN PRN Reason: Nausea Mirtazapine [Remeron] 15 mg PO HS PRN PRN Reason: Migraine Headache Biotin 10,000 mcg PO HS buPROPion HCL [Wellbutrin XL] 300 mg PO QAM Propranolol HCl [Inderal Xl] 80 mg PO DAILY PRN PRN Reason: Migraine Headache LORazepam [Ativan] 0.5 mg PO QAM PRN PRN Reason: takes with maxalt Cholecalciferol (Vitamin D3) [Vitamin D3] 5,000 unit PO BID Diazepam [Valium] 0.5 mg PO DAILY PRN PRN Reason: Anxiety Acetaminophen [Tylenol Extra Strength] 1,000 mg PO DIRECTED PRN PRN Reason: Pain Multivitamin [Multivitamins Adult Gummies] 1 each PO DAILY Aspirin 325 mg PO DAILY Nasal Decongestant Otc 30 mg PO BID Discharge Medication List Furosemide [Lasix] 20 mg PO QAM 09/19/16 [History] LORazepam [Ativan] 1 mg PO HS PRN 09/27/17 [History] metFORMIN HCL [Glucophage] 250 mg PO AC-SUPPER 09/27/17 [History] Escitalopram [Lexapro] 20 mg PO HS 01/15/18 [History] Rizatriptan Benzoate [Maxalt CLINICAL APPEALS RN] 10 mg PO Q4HR PRN 03/06/18 [History] Cetirizine HCl [Zyrtec] 10 mg PO HS 06/13/18 [History] Ondansetron [Zofran ODT] 4 mg SL Q6H PRN 08/03/18 [History] Biotin 10,000 mcg PO HS 10/08/18 [History] Mirtazapine [Remeron] 15 mg PO HS PRN 10/08/18 [History] buPROPion HCL [Wellbutrin XL] 300 mg PO QAM 12/24/18 [History] LORazepam [Ativan] 0.5 mg PO QAM PRN 04/23/19 [History] Propranolol HCl [Inderal Xl] 80 mg PO DAILY PRN 04/23/19 [History] Acetaminophen [Tylenol Extra Strength] 1,000 mg PO DIRECTED PRN 05/05/19 [History] Aspirin 325 mg PO DAILY 05/05/19 [History] Cholecalciferol (Vitamin D3) [Vitamin D3] 5,000 unit PO BID 05/05/19 [History] Diazepam [Valium] 0.5 mg PO DAILY PRN 05/05/19 [History] Multivitamin [Multivitamins Adult Gummies] 1 each PO DAILY 05/05/19 [History] Nasal Decongestant Otc 30 mg PO BID 06/04/19 [History]
--- NOTE | 2019-06-06 07:48 | P.PCN ---
Date of Procedure: 06/06/19 Description of Procedure: PREOPERATIVE DIAGNOSIS: Dysphagia. Epigastric abdominal pain POSTOPERATIVE DIAGNOSIS: Dysphagia. Epigastric abdominal pain Gastrojejunal stricture without chronic ulcer without perforation Esophageal dysmotility OPERATION: Esophagogastrojejunoscopy with balloon dilatation 20 mm. SURGEON: Osiris Contreras MD ANESTHESIA: MAC. INDICATIONS: The patient is a 53-year-old female who presents with a history of dysphagia, gastric bypass including nausea and vomiting. Benefits and risks of the procedure were described. Informed consent was obtained. DESCRIPTION: The patient was brought into the endoscopy suite and laid in the left lateral decubitus position. After a timeout was confirmed, the procedure was initiated. An Olympus gastroscope was passed along the posterior oropharynx down to the distal esophagus where the squamocolumnar junction was unremarkable. Tertiary contractions of the esophagus for esophageal dysmotility was found. The gastric pouch was entered. A gastrojejunal stricture of 18 mm was found as the adult gastroscope was 9.5 mm in size. A [facility] balloon dilator was placed through the scope. Final insufflation up to 20 mm was performed with a total of 2 minutes. The scope was advanced up to 50 cm from the incisors into the Sabino limb. The mucosa of the gastrojejunal anastomosis was intact. No chronic gastrojejunal marginal ulcer was encountered. No full-thickness injury was encountered. The GI tract was desufflated. The patient tolerated the procedure well. FINDINGS: Squamocolumnar junction unremarkable at 37 cm. Stricture of approximately 18 mm encountered. No chronic gastrojejunal ulceration encountered. Successful balloon dilatation to 20 mm. Tortuous Sabino limb beyond 50 cm from the incisors Dilation of jejunal Sabino limb performed Tertiary contractions of the esophagus for esophageal dysmotility RECOMMENDATIONS: Upper endoscopy as needed Recommend manometry.
[2019-06-06 08:03] VITALS: RESP 18
[2019-06-06 08:11] VITALS: BP 88/60; PULSE 76
== END | disposition home or self-care (01) ==
LOC: ORWHC2ENDO 06:09
PROVIDERS: ATTEND Surgery Plastic and Reconstructive Surgery
DX: Z12.11 Encounter for screening for malignant neoplasm of colon (principal); E11.40 Type 2 diabetes mellitus with diabetic neuropathy, unspecified; E78.5 Hyperlipidemia, unspecified; F32.9 Major depressive disorder, single episode, unspecified; F41.9 Anxiety disorder, unspecified; I10 Essential (primary) hypertension; J45.909 Unspecified asthma, uncomplicated; K21.9 Gastro-esophageal reflux disease without esophagitis; K44.9 Diaphragmatic hernia without obstruction or gangrene; K58.9 Irritable bowel syndrome, unspecified; M19.90 Unspecified osteoarthritis, unspecified site; M79.7 Fibromyalgia; R13.10 Dysphagia, unspecified; Z79.82 Long term (current) use of aspirin; Z79.84 Long term (current) use of oral hypoglycemic drugs; Z82.49 Family history of ischemic heart disease and other diseases of the circulatory system; Z83.3 Family history of diabetes mellitus; Z83.71 Family history of colonic polyps; Z85.41 Personal history of malignant neoplasm of cervix uteri; Z86.73 Personal history of transient ischemic attack (TIA), and cerebral infarction without residual deficits; Z87.19 Personal history of other diseases of the digestive system; Z88.1 Allergy status to other antibiotic agents; Z88.2 Allergy status to sulfonamides; Z88.5 Allergy status to narcotic agent; Z88.8 Allergy status to other drugs, medicaments and biological substances; Z98.84 Bariatric surgery status; Z90.49 Acquired absence of other specified parts of digestive tract; Z91.041 Radiographic dye allergy status; Z91.018 Allergy to other foods; Z91.010 Allergy to peanuts; Z91.013 Allergy to seafood; K64.8 Other hemorrhoids
CPT/HCPCS: 43245; 43239; 81025; 88305; G0105; J2370; J2704; C1726; 43249

== ENCOUNTER 2019-07-13 15:50 | Emergency (ER) | payer OTHER ==
[2019-07-13 16:08] VITALS: TEMP 98.5
[2019-07-13] MEDS ORDERED: SODIUM CHLORIDE 0.9% 1,000 ML IV STA (16:42)
[2019-07-13] MEDS ORDERED: MORPHINE SULFATE 4 MG/ML SYRINGE IV STA (17:13)
[2019-07-13] MEDS ORDERED: ONDANSETRON 4 MG/2 ML VIAL IVP STA (17:13)
[2019-07-13] MEDS ORDERED: HYDROmorphone 0.5 MG/0.5 ML SYRINGE IVP STA (17:14)
[2019-07-13 17:17] LABS: Basophils # (A) 0.1 k/uL (0-0.2); Basophils % (A) 0 %; Eosinophils # (A) 0.2 k/uL (0-0.7); Eosinophils % (A) 1 %; HCT 41.8 % (34.0-46.0); Hypochromasia Slight; Lymphocytes # (A) 3.6 k/uL (1.0-4.8); Lymphocytes % (A) 27 %; MCHC 33.4 g/dL (31.0-37.0); MCV 78.1 fL (80.0-100.0); Mean Platelet Volume 6.1; Microcytosis Slight; Monocytes # (A) 0.6 k/uL (0-1.0); Monocytes % (A) 4 %; Neutrophils # (A) 8.7 k/uL (1.3-7.7); Neutrophils % (A) 65 %; Platelet Count 379 k/uL (150-450); Poikilocytosis Slight; RBC 5.36 m/uL (3.80-5.40); RDW 15.7 % (11.5-15.5); WBC 13.4 k/uL (3.8-10.6)
[2019-07-13 17:19] LABS: Appearance,Urine Clear (Clear); Bacteria,Urine Rare /hpf; Bilirubin,Urine Negative (Negative); Blood,Urine Negative (Negative); Color,Urine Light Yellow; Glucose,Urine (UA) Negative (Negative); Ketones,Urine Negative (Negative); Leukocyte Esterase,Urine Moderate (Negative); Mucus,Urine Rare /hpf; Nitrite,Urine Negative (Negative); PH, Urine 5.5 (5.0-8.0); Protein,Urine Negative (Negative); RBC,Urine 1 /hpf (0-5); Specific Gravity,Urine 1.011 (1.001-1.035); Squamous Epithelial Cell,Urine <1 /hpf (0-4); Urobilinogen,Urine <2.0 mg/dL (<2.0)
[2019-07-13 17:49] LABS: ALT 67 U/L (9-52); AST 61 U/L (14-36); African American GFR (CKD) >90 (>60 ml/min/1.73 sqM); Albumin 4.8 g/dL (3.5-5.0); Alkaline Phosphatase 108 U/L (38-126); Anion Gap 14 mmol/L; Blood Urea Nitrogen 14 mg/dL (7-17); Calcium 9.7 mg/dL (8.4-10.2); Carbon Dioxide 21 mmol/L (22-30); Chloride 107 mmol/L (98-107); Glucose 201 mg/dL (74-99); Non-African American GFR(CKD) >90 (>60 ml/min/1.73 sqM); Potassium 3.6 mmol/L (3.5-5.1); Sodium 142 mmol/L (137-145); Total Bilirubin 0.4 mg/dL (0.2-1.3); Total Protein 8.3 g/dL (6.3-8.2)
--- NOTE | 2019-07-13 18:12 | XR ---
KUB HISTORY: Left-sided abdominal pain, vomiting and diarrhea Frontal KUB and 2 images correlated prior exam 02/25/2019, CT 04/23/2019 There multiple air-fluid levels present without bowel distention. Multiple surgical clips are noted. Lung bases are clear. There is no evident pneumoperitoneum. IMPRESSION: Findings may represent enteritis, correlate to exclude bowel obstruction. Follow-up as in dicated.
[2019-07-13] MEDS ORDERED: diphenhydrAMINE 50 MG/ML 1 ML VIAL IVP STA (18:21)
[2019-07-13] MEDS ORDERED: methylPREDNISolone SOD SUCCI 125 MG/2 ML VIAL IV STA (18:22)
[2019-07-13] MEDS ORDERED: FAMOTIDINE 20 MG/2 ML VIAL IV STA (18:22)
[2019-07-13] MEDS ORDERED: HYDROmorphone 1 MG/ML 1 ML SYRINGE IVP STA (18:35)
--- NOTE | 2019-07-13 18:36 | ED ---
General Adult HPI - General Chief complaint: Abdominal Pain Stated complaint: Abdominal pain Time Seen by Provider: 07/13/19 16:20 Source: patient, RN notes reviewed, old records reviewed Mode of arrival: wheelchair Limitations: no limitations - History of Present Illness Initial comments: 48-year-old female patient with past history significant for bariatric surgery, appendectomy, cholecystectomy presents to the chief complaint approximate 2 weeks of left upper left lower abdominal pain. Reports that she has also had nausea vomiting diarrhea over this timeframe. Patient reports that she has a history of small bowel blood blister which been followed by Dr. Armstrong. She was told by her reportedly that she is having abdominal pain nausea and vomiting she was immediately reports emergency department. Denies any other complaints. Systemic: Pt denies fatigue, fever/chills, rash. Pt denies weakness, night sweats, weight loss. Neuro: Pt denies headache, visual disturbances, syncope or pre-syncope. HEENT: Pt denies ocular discharge or irritation, otalgia, rhinorrhea, pharyngitis or notable lymphadenopathy. Cardiopulmonary: Pt denies chest pain, SOB, heart palpitations, dyspnea on exertion. Abdominal/GI: Pt denies abdominal pain, n/v/d. : Pt denies dysuria, burning w/ urination, frequency/urgency. Denies new onset urinary or bowel incontinence. MSK: Pt denies myalgia, loss of strength or function in extremities. Neuro: Pt denies new onset weakness, paresthesias. 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] 10 mg PO Q4HR PRN 03/06/18 06/04/19 Cetirizine HCl [Zyrtec] 10 mg PO HS 06/13/18 06/06/19 Ondansetron [Zofran ODT] 4 mg SL Q6H PRN 08/03/18 06/04/19 Biotin 10,000 mcg PO HS 10/08/18 06/04/19 Mirtazapine [Remeron] 15 mg PO HS PRN 10/08/18 06/04/19 buPROPion HCL [Wellbutrin XL] 300 mg PO QAM 12/24/18 06/06/19 LORazepam [Ativan] 0.5 mg PO QAM PRN 04/23/19 06/04/19 Propranolol HCl [Inderal Xl] 80 mg PO DAILY PRN 04/23/19 05/05/19 Acetaminophen [Tylenol Extra 1,000 mg PO DIRECTED PRN 05/05/19 06/04/19 Strength] Aspirin 325 mg PO DAILY 05/05/19 06/04/19 Cholecalciferol (Vitamin D3) 5,000 unit PO BID 05/05/19 06/04/19 [Vitamin D3] Diazepam [Valium] 0.5 mg PO DAILY PRN 05/05/19 06/06/19 Multivitamin [Multivitamins Adult 1 each PO DAILY 05/05/19 06/04/19 Gummies] Nasal Decongestant Otc 30 mg PO BID 06/04/19 06/04/19 Allergies Allergy/AdvReac Type Severity Reaction Status Date / Time oxycodone [From Percocet] Allergy Unknown Swelling; Verified 07/13/19 16:08 (WAS ABLE TO TAKE ALONG WITH BENADRYL) apricot Allergy Dyspnea Verified 07/13/19 16:08 barium sulfate Allergy Anaphylaxis Verified 07/13/19 16:08 [From Readi-Cat] codeine Allergy Anaphylaxis Verified 07/13/19 16:08 fentanyl Allergy Rash/Hives Verified 07/13/19 16:08 hydrocodone [From Lortab] Allergy Swelling Verified 07/13/19 16:08 Iodinated Contrast Media Allergy Anaphylaxis Verified 07/13/19 16:08 iodine Allergy Rash/Hives Verified 07/13/19 16:08 iron Allergy Swelling Verified 07/13/19 16:08 levofloxacin [From Levaquin] Allergy Swelling Verified 07/13/19 16:08 morphine Allergy Rash/Hives, Verified 07/13/19 16:08 Nausea/Vomiting peach Allergy Swelling Verified 07/13/19 16:08 peanut Allergy Swelling Verified 07/13/19 16:08 peanut oil Allergy Anaphylaxis Verified 07/13/19 16:08 shellfish derived [Shellfish] Allergy Anaphylaxis Verified 07/13/19 16:08 strawberry Allergy Anaphylaxis Verified 07/13/19 16:08 sucralfate [From Carafate] Allergy Swelling Verified 07/13/19 16:08 Sulfa (Sulfonamide Allergy Anaphylaxis Verified 07/13/19 16:08 Antibiotics) sulfamethoxazole Allergy Anaphylaxis Verified 07/13/19 16:08 [From Bactrim] tree nut [Nut] Allergy Swelling Verified 07/13/19 16:08 trimethoprim [From Bactrim] Allergy Anaphylaxis Verified 07/13/19 16:08 Review of Systems ROS Statement: Those systems with pertinent positive or pertinent negative responses have been documented in the HPI. ROS Other: All systems not noted in ROS Statement are negative. Past Medical History Past Medical History: Asthma, Cancer, CVA/TIA, Diabetes Mellitus, Fibromyalgia, GERD/Reflux, Hearing Disorder / Deafness, Hyperlipidemia, Hypertension, Osteoarthritis (OA), Pneumonia Additional Past Medical History / Comment(s): Had Iron infusions in Apr 2019. Current double earache, on antibiotics, Dr Contreras aware. Hx TIA 2015. Diabetic neuropathy eli feet, migraines, cervical disc disease, DDD, eli tinnitis, arthiritis bilateral shoulders, IBS, HX R arm fx yrs ago, R ovarian cyst, hiatal hernia, UTIs, urinary calculus, pancreatitis x 2, stomach ulcer. Hx cervical cancer. History of Any Multi-Drug Resistant Organisms: C-DIFF Date of last positivie culture/infection: 2015 MDRO Source:: None Past Surgical History: Appendectomy, Bariatric Surgery, Cholecystectomy, Tonsillectomy Additional Past Surgical History / Comment(s): 2010 felix-en-Y, fistula repair 2011, 2011 gastric bypass revision, bowel resection, lap gastrojejunostomy anastamosis revision, EGD and colonoscopy, cone bx-cervical cancer removed with cryo, L fallopian tube removed due to cyst, picc line in and out, CERVICAL FUSION 12/21/16. Past Anesthesia/Blood Transfusion Reactions: Family History of Problems w/ Anesthesia, Motion Sickness, Postoperative Nausea & Vomiting (PONV) Additional Past Anesthesia/Blood Transfusion Reaction / Comment(s): Pt states she has never recieved blood. FAMILY HX PONV. Past Psychological History: Anxiety, Depression Smoking Status: Never smoker Past Alcohol Use History: None Reported Past Drug Use History: None Reported - Past Family History Brother(s) Family Medical History: Deep Vein Thrombosis (DVT) Father Family Medical History: Cancer Additional Family Medical History / Comment(s): Father had poss colon and lung cancer and at age 73yrs. Mother Family Medical History: Coronary Artery Disease (CAD), Diabetes Mellitus, Deep Vein Thrombosis (DVT), Hypertension Additional Family Medical History / Comment(s): Mother is alive and 73 yrs old. General Exam - General Exam Comments Initial Comments: Constitutional: NAD, AOX3, Pt has pleasant affect. HEENT: NC/AT, trachea midline, neck supple, no lymphadenopathy. Posterior pharynx non erythematous, without exudates. External ears appear normal, without discharge. Mucous membranes moist. Eyes PERRLA, EOM intact. There is no scleral icterus. No pallor noted. Cardiopulmonary: RRR, no murmurs, rubs or gallops, no JVD noted. Lungs CTAB in anterior and posterior elliott. No peripheral edema. Abdominal exam: Abdomen soft and non-distended. Abdomen non-tender to palpation in all 4 quadrants. Bowel sounds active in LLQ. No hepatosplenomegaly. No ecchymosis Neuro: CN II-XII grossly intact. No nuchal rigidity. No raccon eyes, no nicole sign, no hemotympanum. No cervical spinal tenderness. MSK: No posterior calf tenderness bilaterally, homans sign negative bilaterally. Posterior tibialis and radial pulse +2 bilaterally. Sensation intact in upper and lower extremities. Full active ROM in upper and lower extremities, 5/5 stregnth. Limitations: no limitations Course Vital Signs 07/13/19 07/13/19 16:05 18:47 Temperature 98.5 F Pulse Rate 118 H 91 Respiratory 18 16 Rate Blood Pressure 107/77 103/76 O2 Sat by Pulse 96 96 Oximetry Medical Decision Making - Medical Decision Making 48-year-old female patient with past history significant for bariatric surgery, appendectomy, cholecystectomy presents to the chief complaint approximate 2 weeks of left upper left lower abdominal pain. Reports that she has also had nausea vomiting diarrhea over this timeframe. Patient reports that she has a history of small bowel blood blister which been followed by Dr. Armstrong. She was told by her reportedly that she is having abdominal pain nausea and vomiting she was immediately reports emergency department. Denies any other complaints. Patient vital signs stable, afebrile. Physical exam displayed tenderness to palpation left upper quadrant left lower quadrant regions. Abdomen soft, no ecchymoses, no guarding or rigidity. O2 investigations revealed a leukocytosis of 13. Mildly elevated LFTs. Otherwise nonpassive. UA displayed mild urinary tract infection. CT abdomen and pelvis correlate for gastroenteritis. Patient was discharged to follow up with primary care Brown will return to ER physician worsens. Case discussed with Dr. Vega. - Lab Data Result diagrams: 07/13/19 17:07 07/13/19 17:07 Lab Results 07/13/19 07/13/19 07/13/19 Range/Units 17:07 17:07 17:07 WBC 13.4 H (3.8-10.6) k/uL RBC 5.36 (3.80-5.40) m/uL Hgb 14.0 (11.4-16.0) gm/dL Hct 41.8 (34.0-46.0) % MCV 78.1 L (80.0-100.0) fL MCH 26.0 (25.0-35.0) pg MCHC 33.4 (31.0-37.0) g/dL RDW 15.7 H (11.5-15.5) % Plt Count 379 (150-450) k/uL Neutrophils % 65 % Lymphocytes % 27 % Monocytes % 4 % Eosinophils % 1 % Basophils % 0 % Neutrophils # 8.7 H (1.3-7.7) k/uL Lymphocytes # 3.6 (1.0-4.8) k/uL Monocytes # 0.6 (0-1.0) k/uL Eosinophils # 0.2 (0-0.7) k/uL Basophils # 0.1 (0-0.2) k/uL Hypochromasia Slight Poikilocytosis Slight Microcytosis Slight Sodium 142 (137-145) mmol/L Potassium 3.6 (3.5-5.1) mmol/L Chloride 107 (98-107) mmol/L Carbon Dioxide 21 L (22-30) mmol/L Anion Gap 14 mmol/L BUN 14 (7-17) mg/dL Creatinine 0.71 (0.52-1.04) mg/dL Est GFR (CKD-EPI)AfAm >90 (>60 ml/min/1.73 sqM) Est GFR (CKD-EPI)NonAf >90 (>60 ml/min/1.73 sqM) Glucose 201 H (74-99) mg/dL Plasma Lactic Acid Adam (0.7-2.0) mmol/L Calcium 9.7 (8.4-10.2) mg/dL Total Bilirubin 0.4 (0.2-1.3) mg/dL AST 61 H (14-36) U/L ALT 67 H (9-52) U/L Alkaline Phosphatase 108 (38-126) U/L Total Protein 8.3 H (6.3-8.2) g/dL Albumin 4.8 (3.5-5.0) g/dL Lipase 73 (23-300) U/L Urine Color Urine Appearance (Clear) Urine pH (5.0-8.0) Ur Specific [place] (1.001-1.035) Urine Protein (Negative) Urine Glucose (UA) (Negative) Urine Ketones (Negative) Urine Blood (Negative) Urine Nitrite (Negative) Urine Bilirubin (Negative) Urine Urobilinogen (<2.0) mg/dL Ur Leukocyte Esterase (Negative) Urine RBC (0-5) /hpf Urine WBC (0-5) /hpf Ur Squamous Epith Cells (0-4) /hpf Urine Bacteria (None) /hpf Urine Mucus (None) /hpf Urine HCG, Qual Not Detected (Not Detectd) 07/13/19 07/13/19 Range/Units 17:07 18:45 WBC (3.8-10.6) k/uL RBC (3.80-5.40) m/uL Hgb (11.4-16.0) gm/dL Hct (34.0-46.0) % MCV (80.0-100.0) fL MCH (25.0-35.0) pg MCHC (31.0-37.0) g/dL RDW (11.5-15.5) % Plt Count (150-450) k/uL Neutrophils % % Lymphocytes % % Monocytes % % Eosinophils % % Basophils % % Neutrophils # (1.3-7.7) k/uL Lymphocytes # (1.0-4.8) k/uL Monocytes # (0-1.0) k/uL Eosinophils # (0-0.7) k/uL Basophils # (0-0.2) k/uL Hypochromasia Poikilocytosis Microcytosis Sodium (137-145) mmol/L Potassium (3.5-5.1) mmol/L Chloride (98-107) mmol/L Carbon Dioxide (22-30) mmol/L Anion Gap mmol/L BUN (7-17) mg/dL Creatinine (0.52-1.04) mg/dL Est GFR (CKD-EPI)AfAm (>60 ml/min/1.73 sqM) Est GFR (CKD-EPI)NonAf (>60 ml/min/1.73 sqM) Glucose (74-99) mg/dL Plasma Lactic Acid Adam 1.3 (0.7-2.0) mmol/L Calcium (8.4-10.2) mg/dL Total Bilirubin (0.2-1.3) mg/dL AST (14-36) U/L ALT (9-52) U/L Alkaline Phosphatase (38-126) U/L Total Protein (6.3-8.2) g/dL Albumin (3.5-5.0) g/dL Lipase (23-300) U/L Urine Color Light Yellow Urine Appearance Clear (Clear) Urine pH 5.5 (5.0-8.0) Ur Specific Hy[place] 1.011 (1.001-1.035) Urine Protein Negative (Negative) Urine Glucose (UA) Negative (Negative) Urine Ketones Negative (Negative) Urine Blood Negative (Negative) Urine Nitrite Negative (Negative) Urine Bilirubin Negative (Negative) Urine Urobilinogen <2.0 (<2.0) mg/dL Ur Leukocyte Esterase Moderate H (Negative) Urine RBC 1 (0-5) /hpf Urine WBC 11 H (0-5) /hpf Ur Squamous Epith Cells <1 (0-4) /hpf Urine Bacteria Rare H (None) /hpf Urine Mucus Rare H (None) /hpf Urine HCG, Qual (Not Detectd) Disposition Clinical Impression: Gastroenteritis, Nausea vomiting and diarrhea Disposition: HOME SELF-CARE Condition: Stable Instructions (If sedation given, give patient instructions): Gastroenteritis (ED) Additional Instructions: Follow-up with primary care provider tomorrow. Return to ER if condition worsens. Is patient prescribed a controlled substance at d/c from ED?: No Referrals: Macy Knight MD [Primary Care Provider] - 1-2 days
--- NOTE | 2019-07-13 20:07 | CT ---
EXAMINATION TYPE: CT abdomen pelvis w con DATE OF EXAM: 07/13/2019 COMPARISON: Prior CT 04/23/2019 HISTORY: Abdominal pain, n/v/d. Pt states she had a scope June 06, which showed some twisting in s tomach. CT DLP: 1372 mGycm Automated exposure control for dose reduction was used. TECHNIQUE: Helical acquisition of images from the lung bases through the pelvis have been completed. CONTRAST: Performed without Oral Contrast and with IV Contrast, patient injected with 100 mL of Isovue 300. FINDINGS: LUNG BASES: No significant abnormality is appreciated. AORTA: No significant abnormality is appreciated. LIVER/GB: No significant abnormality is appreciated. Patient is post cholecystectomy as on prior, mil dly prominent biliary ducts likely due to postcholecystectomy change PANCREAS: No significant abnormality is seen. SPLEEN: No significant abnormality is seen. ADRENALS: No significant abnormality is seen. KIDNEYS: No significant abnormality is seen. REPRODUCTIVE ORGANS: No significant abnormality is seen BOWEL: There are extensive postop changes as on prior exam. There are fluid-filled loops of small an d large bowel present. Patient is status post appendectomy. FREE AIR: No Free Air visible. ASCITES: None visible. PELVIC ADENOPATHY: None visualized. RETROPERITONEAL ADENOPATHY: No Retroperitoneal Adenopathy visible. URINARY BLADDER: No significant abnormality is seen. OSSEOUS STRUCTURES: No significant abnormality is seen. IMPRESSION: CORRELATE FOR GASTROENTERITIS.
[2019-07-13] MEDS ORDERED: SODIUM CHLORIDE 0.9% 500 ML 500 ML IV STA (20:11)
[2019-07-13] MEDS ORDERED: CEPHALEXIN 500MG STARTER PACK 4 CAP BTL PO STA (20:24)
[2019-07-13 20:32] VITALS: BP 107/72; PULSE 90; RESP 18
--- NOTE | 2019-07-13 20:41 | ED ---
Medical Decision Making - Medical Decision Making Pt was also advised to follow up with surgeon Dr. Contreras. - Lab Data Result diagrams: 07/13/19 17:07 07/13/19 17:07 Lab Results 07/13/19 07/13/19 07/13/19 Range/Units 17:07 17:07 17:07 WBC 13.4 H (3.8-10.6) k/uL RBC 5.36 (3.80-5.40) m/uL Hgb 14.0 (11.4-16.0) gm/dL Hct 41.8 (34.0-46.0) % MCV 78.1 L (80.0-100.0) fL MCH 26.0 (25.0-35.0) pg MCHC 33.4 (31.0-37.0) g/dL RDW 15.7 H (11.5-15.5) % Plt Count 379 (150-450) k/uL Neutrophils % 65 % Lymphocytes % 27 % Monocytes % 4 % Eosinophils % 1 % Basophils % 0 % Neutrophils # 8.7 H (1.3-7.7) k/uL Lymphocytes # 3.6 (1.0-4.8) k/uL Monocytes # 0.6 (0-1.0) k/uL Eosinophils # 0.2 (0-0.7) k/uL Basophils # 0.1 (0-0.2) k/uL Hypochromasia Slight Poikilocytosis Slight Microcytosis Slight Sodium 142 (137-145) mmol/L Potassium 3.6 (3.5-5.1) mmol/L Chloride 107 (98-107) mmol/L Carbon Dioxide 21 L (22-30) mmol/L Anion Gap 14 mmol/L BUN 14 (7-17) mg/dL Creatinine 0.71 (0.52-1.04) mg/dL Est GFR (CKD-EPI)AfAm >90 (>60 ml/min/1.73 sqM) Est GFR (CKD-EPI)NonAf >90 (>60 ml/min/1.73 sqM) Glucose 201 H (74-99) mg/dL Plasma Lactic Acid Adam (0.7-2.0) mmol/L Calcium 9.7 (8.4-10.2) mg/dL Total Bilirubin 0.4 (0.2-1.3) mg/dL AST 61 H (14-36) U/L ALT 67 H (9-52) U/L Alkaline Phosphatase 108 (38-126) U/L Total Protein 8.3 H (6.3-8.2) g/dL Albumin 4.8 (3.5-5.0) g/dL Lipase 73 (23-300) U/L Urine Color Urine Appearance (Clear) Urine pH (5.0-8.0) Ur Specific [place] (1.001-1.035) Urine Protein (Negative) Urine Glucose (UA) (Negative) Urine Ketones (Negative) Urine Blood (Negative) Urine Nitrite (Negative) Urine Bilirubin (Negative) Urine Urobilinogen (<2.0) mg/dL Ur Leukocyte Esterase (Negative) Urine RBC (0-5) /hpf Urine WBC (0-5) /hpf Ur Squamous Epith Cells (0-4) /hpf Urine Bacteria (None) /hpf Urine Mucus (None) /hpf Urine HCG, Qual Not Detected (Not Detectd) 07/13/19 07/13/19 Range/Units 17:07 18:45 WBC (3.8-10.6) k/uL RBC (3.80-5.40) m/uL Hgb (11.4-16.0) gm/dL Hct (34.0-46.0) % MCV (80.0-100.0) fL MCH (25.0-35.0) pg MCHC (31.0-37.0) g/dL RDW (11.5-15.5) % Plt Count (150-450) k/uL Neutrophils % % Lymphocytes % % Monocytes % % Eosinophils % % Basophils % % Neutrophils # (1.3-7.7) k/uL Lymphocytes # (1.0-4.8) k/uL Monocytes # (0-1.0) k/uL Eosinophils # (0-0.7) k/uL Basophils # (0-0.2) k/uL Hypochromasia Poikilocytosis Microcytosis Sodium (137-145) mmol/L Potassium (3.5-5.1) mmol/L Chloride (98-107) mmol/L Carbon Dioxide (22-30) mmol/L Anion Gap mmol/L BUN (7-17) mg/dL Creatinine (0.52-1.04) mg/dL Est GFR (CKD-EPI)AfAm (>60 ml/min/1.73 sqM) Est GFR (CKD-EPI)NonAf (>60 ml/min/1.73 sqM) Glucose (74-99) mg/dL Plasma Lactic Acid Adam 1.3 (0.7-2.0) mmol/L Calcium (8.4-10.2) mg/dL Total Bilirubin (0.2-1.3) mg/dL AST (14-36) U/L ALT (9-52) U/L Alkaline Phosphatase (38-126) U/L Total Protein (6.3-8.2) g/dL Albumin (3.5-5.0) g/dL Lipase (23-300) U/L Urine Color Light Yellow Urine Appearance Clear (Clear) Urine pH 5.5 (5.0-8.0) Ur Specific [place] 1.011 (1.001-1.035) Urine Protein Negative (Negative) Urine Glucose (UA) Negative (Negative) Urine Ketones Negative (Negative) Urine Blood Negative (Negative) Urine Nitrite Negative (Negative) Urine Bilirubin Negative (Negative) Urine Urobilinogen <2.0 (<2.0) mg/dL Ur Leukocyte Esterase Moderate H (Negative) Urine RBC 1 (0-5) /hpf Urine WBC 11 H (0-5) /hpf Ur Squamous Epith Cells <1 (0-4) /hpf Urine Bacteria Rare H (None) /hpf Urine Mucus Rare H (None) /hpf Urine HCG, Qual (Not Detectd) Disposition Clinical Impression: Gastroenteritis, Nausea vomiting and diarrhea Disposition: HOME SELF-CARE Condition: Stable Instructions (If sedation given, give patient instructions): Gastroenteritis (ED) Additional Instructions: Follow-up with primary care provider tomorrow. Return to ER if condition worsens. Prescriptions: Cephalexin [Keflex] 500 mg PO Q12HR 7 Days #14 cap Is patient prescribed a controlled substance at d/c from ED?: No Referrals: Macy Knight MD [Primary Care Provider] - 1-2 days
== END 2019-07-13 20:49 | disposition home or self-care (01) ==
LOC: EC 15:50
DX: K52.9 Noninfective gastroenteritis and colitis, unspecified (principal); N39.0 Urinary tract infection, site not specified; D72.829 Elevated white blood cell count, unspecified; R74.8 Abnormal levels of other serum enzymes; H92.03 Otalgia, bilateral; J45.909 Unspecified asthma, uncomplicated; E11.42 Type 2 diabetes mellitus with diabetic polyneuropathy; M19.011 Primary osteoarthritis, right shoulder; M19.012 Primary osteoarthritis, left shoulder; F32.9 Major depressive disorder, single episode, unspecified; F41.9 Anxiety disorder, unspecified; Z88.1 Allergy status to other antibiotic agents; Z88.2 Allergy status to sulfonamides; Z88.5 Allergy status to narcotic agent; Z88.8 Allergy status to other drugs, medicaments and biological substances; Z91.010 Allergy to peanuts; Z91.013 Allergy to seafood; Z91.018 Allergy to other foods; Z91.041 Radiographic dye allergy status; Z91.048 Other nonmedicinal substance allergy status; Z79.82 Long term (current) use of aspirin; Z79.84 Long term (current) use of oral hypoglycemic drugs; Z79.899 Other long term (current) drug therapy; Z86.73 Personal history of transient ischemic attack (TIA), and cerebral infarction without residual deficits; Z85.41 Personal history of malignant neoplasm of cervix uteri; Z87.19 Personal history of other diseases of the digestive system; Z98.84 Bariatric surgery status; Z90.49 Acquired absence of other specified parts of digestive tract; Z98.890 Other specified postprocedural states; Z53.8 Procedure and treatment not carried out for other reasons
CPT/HCPCS: 99285; 96374; 96375 ×4; 96376; 96361; 36415; 80053; 83605; 83690; 85025; 81001; 81025; 87086; 74018; 74177; J1200; J2930; J2405; J1170 ×2; Q9967

== ENCOUNTER → 2019-07-24 | Outpatient (CLI) | payer OTHER ==
--- NOTE | 2019-07-18 09:18 | FL ---
EXAMINATION TYPE: FL UGI air w small bowel discontinued DATE OF EXAM: 07/18/2019 8:26 AM COMPARISON: NONE CLINICAL HISTORY: hx of gastric surgery x 2 diarrhea and constipation Lumbar film of the abdomen since multiple surgical clips upper abdominal region. Bowel gas pattern is unremarkable. The patient indicates strawberry allergy without premedication. As an alternative Redicat was adminis tered to the patient however was not appropriately dense to continue the study. Therefore the examina tion was discontinued. Recommendation is for premedication prior to the examination. IMPRESSION: Discontinued upper GI. See above.
--- NOTE | 2019-07-28 08:57 | FL ---
EXAMINATION TYPE: FL UGI air w small bowel DATE OF EXAM: 07/24/2019 COMPARISON: None HISTORY: Small bowel volvulus TECHNIQUE: A single contrast UGI study is performed with small bowel follow through. Patient was pre medicated for the examination. A single contrast technique was utilized. Minimal contrast required w as utilized given the patient's allergy to the contrast. Patient had the oral contrast without advers e reaction. Patient had some mild swelling and redness during the midportion of the examination. Hanks keli, no hives difficulty in breathing or swelling was noted. The patient was undergoing vigorous walk ing which may have precipitated this appearance. The patient was continue to a monitored and symptoms resolved without any additional new or worsening findings at the end of the examination patient with recent stable condition having tolerated the procedure well. Fluoroscopy time: 5 minutes 24 seconds. Images: 61 FINDINGS: Aluminum Molder image of the abdomen: Multiple surgical clips are within the left upper quadrant of the abdomen. Visualized esophagus during fluoroscopy appeared normal. Gastroesophageal junction opens to normal ca liber. Note is made of a few tertiary contractions. Patient is status post Sabino-en-Y surgery. There is prompt spill of contrast into the proximal jejunum . The afebrile aren't any pharyngeal loops are contrast-filled during this exam. Malrotation is not c learly identified. Small bowel follow-through: Early imaging has normal appearance and normal flow. However, at approxim ately 70 minutes a dilated loop of small bowel is in the left midabdomen. This point there was signif icant hesitancy passing through the small bowel loops to the colon transit time to the colon was 365 minutes. Fluoroscopic spot imaging through the small bowel loops didn't demonstrate some tenderness in the rig ht lower quadrant and milder tenderness within the left midabdomen. Loops of bowel however appear to be freely mobile. Persistent dilated small bowel loop in the left upper quadrant was not identified. IMPRESSION: 1. Status post Sabino-en-Y surgery. Malrotation is not clearly evident. 2. There is a focal ileus of unknown etiology within the mid left abdomen with delay of contrast thro ugh the small bowel loops to the colon. 3. Terminal ileum appears normal. 4. Presbyesophagus. 5. Portion of the residual postsurgical stomach appeared normal.
== END ==
LOC: RADFLMAIN 07-18 07:25
PROVIDERS: ATTEND Surgery Plastic and Reconstructive Surgery
DX: K56.2 Volvulus (principal); Z91.018 Allergy to other foods; Z88.8 Allergy status to other drugs, medicaments and biological substances
CPT/HCPCS: 74249

== ENCOUNTER → 2019-08-26 | Outpatient (CLI) | payer OTHER ==
--- NOTE | 2019-08-26 23:24 | CONS ---
CONSULTATION REASON FOR CONSULTATION: Insomnia. This patient was referred to me for problems related to insomnia. The patient has already exhausted multitude of measures, being behavioral interventions and medical interventions for insomnia, and despite that she has not been able to achieve more than 2-3 hours of sleep. According to her, she has had insomnia since the age of 16, and over the years her condition has gotten worse. Among the major contributing factors to her insomnia is chronic migraine. The patient's migraine has been severe and persistent and recurrent, and she has not been able to achieve good migraine treatment and control. She has exhausted various treatments for migraine, including long- term suppression with beta blockers, and she has been utilizing Imitrex and Maxalt. She has received Botox shots to her head and neck, without much improvement. Furthermore, she had a cervical spine disease, for which she underwent cervical spine/neck surgery/laminectomy, and since then she has developed increased pain involving the neck and the posterior cervical area and the base of the head causing pressure and charley horses. Both of these conditions, which include headache and neck pain, have put this patient in a situation where she has not been able to initiate and maintain sleep. She tells me that she spends hours trying to go to sleep and, based on recommendations that were done by her primary care physician, she has limited the number of hours that she spends in bed. She is currently spending around 4-5 hours, achieving only 3 hours of sleep. She does not snore. She does not quit breathing. She does not wake up choking or gasping for air. She does have diabetes mellitus and her HB A1c is well controlled. She has some limited symptoms of neuropathy and restlessness in the lower extremities. No sleepwalking. She has chronic anxiety and depression. She is on a combination of Lexapro and Wellbutrin. Lexapro is at a dose of 20 mg and Wellbutrin at a dose of 300 mg p.o. in the morning. She has been tried on various medications for sleep induction, including Ambien and Belsomra, in addition to melatonin, Benadryl and various other adwg-mas-czxthgf medication. All of these interventions failed to improve her symptoms of insomnia. She is currently taking lorazepam 0.5 mg at bedtime. She is also on Remeron 15 mg p.o. at bedtime. Despite all this, her ability to initiate and maintain sleep has failed. Based on all this, the patient was referred to me for further advice. Her sleep hygiene measures in general are good. She does not utilize any excessive form of caffeine or caffeinated beverages. No history of alcoholism. No history of substance abuse. No history of head trauma. No history of chronic arthritic body pain or ache. No nighttime shortness of breath, chest pain or increased urination. PAST MEDICAL HISTORY: 1. History of morbid obesity with previous gastric bypass surgery. 2. History of chronic cervical spine disease with previous laminectomy and fusion. 3. Chronic insomnia. 4. Chronic anxiety/depression. 5. Diabetes mellitus. ALLERGIES: 1. MORPHINE. 2. CODEINE. 3. LORTAB. 4. IV CONTRAST. 5. SULFA DRUGS. 6. CARAFATE. 7. IV DYE. 8. BACTRIM. 9. SHELLFISH. 10.NUTS. 11.APRICOT. 12.STRAWBERRIES. PAST SURGICAL HISTORY: Surgeries include cholecystectomy, removal of left fallopian tube and tonsils, appendectomy, and felix-en-Y gastric bypass surgery and cervical spine fusion. OUTPATIENT MEDICATIONS: Outpatient medications include: 1. Metformin 250 mg p.o. twice a day. 2. Lorazepam 0.5 mg p.o. daily. 3. Zetia 10 mg p.o. daily. 4. Zocor 80 mg p.o. daily. 5. Lasix 20 mg p.o. twice a day. 6. Remeron 15 mg p.o. daily. 7. Omeprazole 40 mg p.o. daily. 8. Zyrtec 10 mg p.o. daily. 9. Biotin twice a day. 10.Aspirin 81 mg p.o. daily. 11.Vitamin B12 shot. 12.Estradiol 4 mg insert once every 3 weeks. 13.Wellbutrin 300 mg p.o. daily. 14.Lexapro 20 mg p.o. daily. SOCIAL HISTORY: Nonsmoker. No history of alcoholism. No history of IV drugs. FAMILY HISTORY: Negative for insomnia. REVIEW OF SYSTEMS: Fourteen-point review of system was done. Positive findings were all mentioned above in the history of present illness. Note that despite her insomnia she is able to function adequately during the day. She is not falling asleep while driving. She gets tired and fatigued, but not to a point where she would collapse or go into sleep attacks. She has had some difficulty with memory and concentration at times, especially on nights when she is not able to fall asleep. She is tired all the time. As mentioned, she has chronic anxiety also. PHYSICAL EXAMINATION: VITAL SIGNS: BP is 113/79, pulse 94, respirations 16, temperature 98.6, saturation 98% on room air. Height is 5 feet 6 inches, weight 193, and BMI 31.1. GENERAL APPEARANCE: Calm, comfortable. HEAD: Atraumatic, normocephalic. NECK: Supple. No JVD. No goiter or neck masses. Mallampati class II. Cervical spine fusion scar is clean over the left neck area. LUNGS: Clear to auscultation. HEART: Heart sounds are regular rate and rhythm. Normal S1, S2. No S3, S4. No murmurs. ABDOMEN: Soft, nontender. No organomegaly. EXTREMITIES: No edema. No cyanosis or clubbing. NEUROLOGIC: Awake and alert. No focal neurological deficits. PSYCHIATRIC: Negative for anxiety or depression. IMPRESSION: Chronic insomnia. The patient has comorbid insomnia. Among the comorbidities contributing to her insomnia are refractory migraines which remain poorly controlled despite a combination of beta-blockers and medications to suppress headaches on an episodic basis. Furthermore, she has chronic neck pain and stiffness and cramping which have contributed to her difficulties in falling asleep and maintaining sleep, and this got worse after her cervical spine laminectomy and fusion. She has chronic anxiety and depression which have been effectively treated with a combination of drugs. I think the major contributing factor to her insomnia is her suboptimally controlled migraine. She does have some mild periodic limb movement activity, probably related to peripheral neuropathy related to diabetes mellitus. However, this is not a major factor. Doubt obstructive sleep apnea. Doubt any other major comorbidities other than the ones mentioned. PLAN: 1. I had a lengthy discussion with the patient. 2. Obviously this will be a complicated treatment. In general, the patient's sleep hygiene measures are adequate and she has done all the interventions that we recommend to improve the patient's sleep quality and insomnia. Among these measures are sleep restriction, stimulus control and improvement in good sleep hygiene measures. The patient has already followed these recommendations. In terms of drug therapy, none of the regular hypnotic agents have helped her to extend her sleep hours, and this was rather expected, as the patient's insomnia is related to her comorbidities. 3. In terms of improving her sleep quality, we need to improve her comorbidities. I think the refractory migraine deserves another attention and she may benefit from further suppression medication to improve the migraine control, and this will hopefully improve her sleep quality in general. She is only on beta blockers in the form of Inderal. Additional medications such as Topamax or valproic acid may help, under the direction of a neurologist. As for the neck pain, I feel that the pain in her neck is somewhat neuropathic and somewhat muscular in nature. Neurontin can be utilized at a low dose of 200 mg twice a day and gradually increase the dose up to 600 mg twice or 3 times a day, depending on her clinical response. This can help her with insomnia. In fact, Neurontin in combination with Flexeril may also give her a good result in terms of her neck pain and stiffness. This should be considered on this patient, alone or in combination with more aggressive treatment of her migraine. 4. I do not see the need for a sleep study. 5. I am going to share my thoughts with her primary care physician, and I will be glad to help this patient's treatment in the future if needed. I do not suggest use of any form of a hypnotic agent at this point in time. MMROSIEL / IJN: [id number] / MTDGauri
== END | disposition home or self-care (01) ==
LOC: SLEEP 15:19
PROVIDERS: ATTEND Internal Medicine Critical Care Medicine
DX: F51.04 Psychophysiologic insomnia (principal); G43.009 Migraine without aura, not intractable, without status migrainosus; M54.2 Cervicalgia; F41.9 Anxiety disorder, unspecified; F32.9 Major depressive disorder, single episode, unspecified; G47.61 Periodic limb movement disorder; G62.9 Polyneuropathy, unspecified; R45.1 Restlessness and agitation; Z98.890 Other specified postprocedural states; Z79.84 Long term (current) use of oral hypoglycemic drugs; Z79.82 Long term (current) use of aspirin; Z79.899 Other long term (current) drug therapy; Z88.5 Allergy status to narcotic agent; Z88.2 Allergy status to sulfonamides; Z91.013 Allergy to seafood; Z91.018 Allergy to other foods; Z91.041 Radiographic dye allergy status; Z88.8 Allergy status to other drugs, medicaments and biological substances; E11.9 Type 2 diabetes mellitus without complications
CPT/HCPCS: 99211

== ENCOUNTER → 2020-08-30 | Outpatient (CLI) | payer OTHER | END | disposition home or self-care (01) | LOC: LABWHC1 09:16 | PROVIDERS: ATTEND Family Medicine | DX: Z20.822 Contact with and (suspected) exposure to COVID-19 (principal) | CPT/HCPCS: U0003; C9803; U0005 ==

== ENCOUNTER 2020-10-09 00:38 | Emergency (ER) | payer OTHER ==
[2020-10-09 00:46] VITALS: BP 137/77; PULSE 86; RESP 18; TEMP 98.3
--- NOTE | 2020-10-09 00:55 | ED ---
Female Urogenital HPI - General Chief complaint: Urogenital Stated complaint: Poss kidney stone Time Seen by Provider: 10/09/20 00:49 Source: patient Mode of arrival: ambulatory Limitations: no limitations - History of Present Illness Initial comments: 50-year-old female presents emergency Department with a chief complaint of possible kidney stone. Patient states she has developed bilateral flank pain for the past week that is gradually increasing severity. Patient states having a kidney stone several years ago and this one feels somewhat like it. Patient reports she felt nauseous but there is no vomiting. States that she did have hematuria today but has had increased urgency and frequency for the past week. States she is diabetic and her blood glucose has not been well controlled for the past 2 months after she contracted Covid. Patient states due to the frequent urination, she is developed excoriations around the vagina perineum. Patient reports applying Vaseline hydrocortisone cream with no significant improvement symptoms. Denies any vaginal discharge or any obstructive urinary symptoms. Denies hematochezia or melena. Denies chest pain shortness of breath. - Related Data Home Medications Medication Instructions Recorded Confirmed Furosemide [Lasix] 20 mg PO QAM 09/19/16 06/06/19 LORazepam [Ativan] 1 mg PO HS PRN 09/27/17 06/04/19 metFORMIN HCL [Glucophage] 250 mg PO AC-SUPPER 09/27/17 06/06/19 Escitalopram [Lexapro] 20 mg PO HS 01/15/18 06/06/19 Rizatriptan Benzoate [Maxalt TIME CLERK] 10 mg PO Q4HR PRN 03/06/18 06/04/19 Cetirizine HCl [Zyrtec] 10 mg PO HS 06/13/18 06/06/19 Ondansetron [Zofran ODT] 4 mg SL Q6H PRN 08/03/18 06/04/19 Biotin 10,000 mcg PO HS 10/08/18 06/04/19 Mirtazapine [Remeron] 15 mg PO HS PRN 10/08/18 06/04/19 buPROPion HCL [Wellbutrin XL] 300 mg PO QAM 12/24/18 06/06/19 LORazepam [Ativan] 0.5 mg PO QAM PRN 04/23/19 06/04/19 Propranolol HCl [Inderal Xl] 80 mg PO DAILY PRN 04/23/19 05/05/19 Acetaminophen [Tylenol Extra 1,000 mg PO DIRECTED PRN 05/05/19 06/04/19 Strength] Aspirin 325 mg PO DAILY 05/05/19 06/04/19 Cholecalciferol (Vitamin D3) 5,000 unit PO BID 05/05/19 06/04/19 [Vitamin D3] Multivitamin [Multivitamins Adult 1 each PO DAILY 05/05/19 06/04/19 Gummies] diazePAM [Valium] 0.5 mg PO DAILY PRN 05/05/19 06/06/19 Nasal Decongestant Otc 30 mg PO BID 06/04/19 06/04/19 Previous Rx's Medication Instructions Recorded Cephalexin [Keflex] 500 mg PO Q12HR 7 Days #14 cap 07/13/19 Clotrimazole/Betamethasone Dip 1 applic TOPICAL BID 7 Days #45 gm 10/09/20 [Lotrisone Cream] Allergies Allergy/AdvReac Type Severity Reaction Status Date / Time oxycodone [From Percocet] Allergy Unknown Swelling; Verified 10/09/20 00:43 (WAS ABLE TO TAKE ALONG WITH BENADRYL) apricot Allergy Dyspnea Verified 10/09/20 00:43 barium sulfate Allergy Anaphylaxis Verified 10/09/20 00:43 [From Readi-Cat] codeine Allergy Anaphylaxis Verified 10/09/20 00:43 fentanyl Allergy Rash/Hives Verified 10/09/20 00:43 hydrocodone [From Lortab] Allergy Swelling Verified 10/09/20 00:43 Iodinated Contrast Media Allergy Anaphylaxis Verified 10/09/20 00:43 iodine Allergy Rash/Hives Verified 10/09/20 00:43 iron Allergy Swelling Verified 10/09/20 00:43 levofloxacin [From Levaquin] Allergy Swelling Verified 10/09/20 00:43 morphine Allergy Rash/Hives, Verified 10/09/20 00:43 Nausea/Vomiting peach Allergy Swelling Verified 10/09/20 00:43 peanut Allergy Swelling Verified 10/09/20 00:43 peanut oil Allergy Anaphylaxis Verified 10/09/20 00:43 shellfish derived [Shellfish] Allergy Anaphylaxis Verified 10/09/20 00:43 strawberry Allergy Anaphylaxis Verified 10/09/20 00:43 sucralfate [From Carafate] Allergy Swelling Verified 02/20/21 00:43 Sulfa (Sulfonamide Allergy Anaphylaxis Verified 10/09/20 00:43 Antibiotics) sulfamethoxazole Allergy Anaphylaxis Verified 10/09/20 00:43 [From Bactrim] tree nut [Nut] Allergy Swelling Verified 10/09/20 00:43 trimethoprim [From Bactrim] Allergy Anaphylaxis Verified 10/09/20 00:43 metronidazole [From Flagyl] AdvReac Unknown Verified 10/09/20 00:43 Review of Systems ROS Statement: Those systems with pertinent positive or pertinent negative responses have been documented in the HPI. ROS Other: All systems not noted in ROS Statement are negative. Past Medical History Past Medical History: Asthma, Cancer, CVA/TIA, Diabetes Mellitus, Fibromyalgia, GERD/Reflux, Hearing Disorder / Deafness, Hyperlipidemia, Hypertension, Osteoarthritis (OA), Pneumonia Additional Past Medical History / Comment(s): Had Iron infusions in Apr 2019. Current double earache, on antibiotics, Dr Contreras aware. Hx TIA 2015. Diabetic neuropathy eli feet, migraines, cervical disc disease, DDD, eli tinnit is, arthiritis bilateral shoulders, IBS, HX R arm fx yrs ago, R ovarian cyst, hiatal hernia, UTIs, urinary calculus, pancreatitis x 2, stomach ulcer. Hx cervical cancer. COVID 08/2020 History of Any Multi-Drug Resistant Organisms: C-DIFF Date of last positivie culture/infection: 2015 MDRO Source:: None Past Surgical History: Appendectomy, Bariatric Surgery, Cholecystectomy, Tonsillectomy Additional Past Surgical History / Comment(s): 2010 felix-en-Y, fistula repair 2011, 2011 gastric bypass revision, bowel resection, lap gastrojejunostomy anastamosis revision, EGD and colonoscopy, cone bx-cervical cancer removed with cryo, L fallopian tube removed due to cyst, picc line in and out, CERVICAL FUSION 12/21/16. Past Anesthesia/Blood Transfusion Reactions: Family History of Problems w/ Anesthesia, Motion Sickness, Postoperative Nausea & Vomiting (PONV) Additional Past Anesthesia/Blood Transfusion Reaction / Comment(s): Pt states she has never recieved blood. FAMILY HX PONV. Past Psychological History: Anxiety, Depression Smoking Status: Never smoker Past Alcohol Use History: None Reported Past Drug Use History: None Reported - Past Family History Brother(s) Family Medical History: Deep Vein Thrombosis (DVT) Father Family Medical History: Cancer Additional Family Medical History / Comment(s): Father had poss colon and lung cancer and at age 73yrs. Mother Family Medical History: Coronary Artery Disease (CAD), Diabetes Mellitus, Deep Vein Thrombosis (DVT), Hypertension Additional Family Medical History / Comment(s): Mother is alive and 73 yrs old. General Exam Limitations: no limitations General appearance: alert, in no apparent distress, obese Head exam: Present: atraumatic, normocephalic, normal inspection Eye exam: Present: normal appearance, PERRL, EOMI Pupils: Present: normal accommodation ENT exam: Present: normal exam, normal oropharynx, mucous membranes moist Neck exam: Present: normal inspection, full ROM. Absent: tenderness Respiratory exam: Present: normal lung sounds bilaterally. Absent: respiratory distress Cardiovascular Exam: Present: regular rate, normal rhythm, normal heart sounds GI/Abdominal exam: Present: soft, tenderness (Flank tenderness bilaterally). Absent: distended, guarding, rebound, rigid Extremities exam: Present: normal inspection, full ROM, normal capillary refill. Absent: tenderness, pedal edema, joint swelling Back exam: Present: normal inspection, full ROM, tenderness, CVA tenderness (R), CVA tenderness (L). Absent: muscle spasm, paraspinal tenderness, vertebral t enderness Neurological exam: Present: alert, oriented X3, normal gait Psychiatric exam: Present: normal affect, normal mood Skin exam: Present: warm, dry, intact, normal color Course Vital Signs 10/09/20 00:43 Temperature 98.3 F Pulse Rate 86 Respiratory 18 Rate Blood Pressure 137/77 O2 Sat by Pulse 98 Oximetry Medical Decision Making - Medical Decision Making 50-year-old female presents to the emergency department with chief complaint of possible kidney stone. On physical examination, patient has bilateral flank pain with CVA tenderness. No significant abdominal tenderness. CBC reveals mild leukocytosis of 13 K. CMP shows blood glucose of 380. Patient was given 8 units of insulin. Her diabetes has not been well-controlled for the past 2 months which I suspect is causing polyuria. This in turn is causing excoriations of the skin in in the perineum. Patient offered examination, she declined. Patient was given IV fluids, antiemetics and analgesia emergency department. CT of the pelvis reveals no acute findings aside from moderate stool [place]. Patient will be started on lotrisone. Advise her to follow-up with PCP to improve her glucose control. Also advised her to monitor her carbohydrate intake. She was also advised to take MiraLAX to promote bowel movement. Advised to eat a high-fiber diet. Return parameters discussed the patient was understanding and agreeable. Case discussed with - Lab Data Result diagrams: 10/09/20 01:10/09/20 01:19 Lab Results 10/09/20 10/09/20 10/09/20 Range/Units 01:17 01:19 01:19 WBC 13.1 H (3.8-10.6) k/uL RBC 4.95 (3.80-5.40) m/uL Hgb 12.8 (11.4-16.0) gm/dL Hct 39.6 (34.0-46.0) % MCV 79.9 L (80.0-100.0) fL MCH 25.9 (25.0-35.0) pg MCHC 32.4 (31.0-37.0) g/dL RDW 14.9 (11.5-15.5) % Plt Count 349 (150-450) k/uL MPV 7.6 Neutrophils % 51 % Lymphocytes % 40 % Monocytes % 5 % Eosinophils % 2 % Basophils % 1 % Neutrophils # 6.7 (1.3-7.7) k/uL Lymphocytes # 5.2 H (1.0-4.8) k/uL Monocytes # 0.7 (0-1.0) k/uL Eosinophils # 0.3 (0-0.7) k/uL Basophils # 0.1 (0-0.2) k/uL Manual Slide Review Performed Hypochromasia (manual) Present Sodium (137-145) mmol/L Potassium (3.5-5.1) mmol/L Chloride (98-107) mmol/L Carbon Dioxide (22-30) mmol/L Anion Gap mmol/L BUN (7-17) mg/dL Creatinine (0.52-1.04) mg/dL Est GFR (CKD-EPI)AfAm (>60 ml/min/1.73 sqM) Est GFR (CKD-EPI)NonAf (>60 ml/min/1.73 sqM) Glucose (74-99) mg/dL POC Glucose (mg/dL) 377 H (75-99) mg/dL POC Glu Sales Operations Associate ID Katy Manzano Calcium (8.4-10.2) mg/dL Total Bilirubin (0.2-1.3) mg/dL AST (14-36) U/L ALT (4-34) U/L Alkaline Phosphatase (38-126) U/L Total Protein (6.3-8.2) g/dL Albumin (3.5-5.0) g/dL Lipase (23-300) U/L Urine Color Light Yellow Urine Appearance Clear (Clear) Urine pH 6.0 (5.0-8.0) Ur Specific [place] 1.035 (1.001-1.035) Urine Protein Negative (Negative) Urine Glucose (UA) 4+ H (Negative) Urine Ketones Negative (Negative) Urine Blood Negative (Negative) Urine Nitrite Negative (Negative) Urine Bilirubin Negative (Negative) Urine Urobilinogen <2.0 (<2.0) mg/dL Ur Leukocyte Esterase Negative (Negative) Urine HCG, Qual (Not Detectd) Acetone, Qual (Negative) 10/09/20 10/09/20 Range/Units 01:19 01:19 WBC (3.8-10.6) k/uL RBC (3.80-5.40) m/uL Hgb (11.4-16.0) gm/dL Hct (34.0-46.0) % MCV (80.0-100.0) fL MCH (25.0-35.0) pg MCHC (31.0-37.0) g/dL RDW (11.5-15.5) % Plt Count (150-450) k/uL MPV Neutrophils % % Lymphocytes % % Monocytes % % Eosinophils % % Basophils % % Neutrophils # (1.3-7.7) k/uL Lymphocytes # (1.0-4.8) k/uL Monocytes # (0-1.0) k/uL Eosinophils # (0-0.7) k/uL Basophils # (0-0.2) k/uL Manual Slide Review Hypochromasia (manual) Sodium 134 L (137-145) mmol/L Potassium 4.6 (3.5-5.1) mmol/L Chloride 99 (98-107) mmol/L Carbon Dioxide 25 (22-30) mmol/L Anion Gap 10 mmol/L BUN 18 H (7-17) mg/dL Creatinine 0.86 (0.52-1.04) mg/dL Est GFR (CKD-EPI)AfAm >90 (>60 ml/min/1.73 sqM) Est GFR (CKD-EPI)NonAf 80 (>60 ml/min/1.73 sqM) Glucose 384 H (74-99) mg/dL POC Glucose (mg/dL) (75-99) mg/dL POC Glu Sales Operations Associate ID Calcium 9.6 (8.4-10.2) mg/dL Total Bilirubin 0.5 (0.2-1.3) mg/dL AST 42 H (14-36) U/L ALT 31 (4-34) U/L Alkaline Phosphatase 52 (38-126) U/L Total Protein 7.8 (6.3-8.2) g/dL Albumin 4.3 (3.5-5.0) g/dL Lipase 65 (23-300) U/L Urine Color Urine Appearance (Clear) Urine pH (5.0-8.0) Ur Specific [place] (1.001-1.035) Urine Protein (Negative) Urine Glucose (UA) (Negative) Urine Ketones (Negative) Urine Blood (Negative) Urine Nitrite (Negative) Urine Bilirubin (Negative) Urine Urobilinogen (<2.0) mg/dL Ur Leukocyte Esterase (Negative) Urine HCG, Qual Not Detected (Not Detectd) Acetone, Qual Negative (Negative) Disposition Clinical Impression: Flank pain, Skin excoriation, Glucosuria Disposition: HOME SELF-CARE Condition: Stable Instructions (If sedation given, give patient instructions): Laxative, Bulk- forming (By mouth), High Fiber Diet (ED), Abdominal Pain (ED) Additional Instructions: Take prescribed medication as directed. High-fiber diet. Take MiraLAX. Return to emergency department if symptoms worsen. Follow up with the primary care physician. Prescriptions: Clotrimazole/Betamethasone Dip [Lotrisone Cream] 1 applic TOPICAL BID 7 Days #45 gm Is patient prescribed a controlled substance at d/c from ED?: No Referrals: Macy Knight MD [Primary Care Provider] - 1-2 days Time of Disposition: 02:55
[2020-10-09] MEDS ORDERED: PANTOPRAZOLE 40 MG/10 ML VIAL IVP STA (01:04)
[2020-10-09] MEDS ORDERED: ONDANSETRON 4 MG/2 ML VIAL IVP STA (01:04)
[2020-10-09] MEDS ORDERED: SODIUM CHLORIDE 0.9% 1,000 ML IV STA (01:04)
[2020-10-09 01:18] LABS: Glucose,Whole Blood 377 mg/dL (75-99)
[2020-10-09] MEDS ORDERED: FAMOTIDINE 20 MG/2 ML VIAL IV STA (01:23)
[2020-10-09] MEDS ORDERED: diphenhydrAMINE 50 MG/ML 1 ML VIAL IVP STA (01:24)
[2020-10-09] MEDS ORDERED: methylPREDNISolone SOD SUCCI 125 MG/2 ML VIAL IV STA (01:24)
[2020-10-09 01:30] LABS: Appearance,Urine Clear (Clear); Basophils # (A) 0.1 k/uL (0-0.2); Basophils % (A) 1 %; Bilirubin,Urine Negative (Negative); Blood,Urine Negative (Negative); Color,Urine Light Yellow; Eosinophils # (A) 0.3 k/uL (0-0.7); Eosinophils % (A) 2 %; Glucose,Urine (UA) 4+ (Negative); HCT 39.6 % (34.0-46.0); HGB 12.8 gm/dL (11.4-16.0); Ketones,Urine Negative (Negative); Leukocyte Esterase,Urine Negative (Negative); Lymphocytes # (A) 5.2 k/uL (1.0-4.8); Lymphocytes % (A) 40 %; MCH 25.9 pg (25.0-35.0); MCHC 32.4 g/dL (31.0-37.0); MCV 79.9 fL (80.0-100.0); Mean Platelet Volume 7.6; Monocytes # (A) 0.7 k/uL (0-1.0); Monocytes % (A) 5 %; Neutrophils # (A) 6.7 k/uL (1.3-7.7); Neutrophils % (A) 51 %; Nitrite,Urine Negative (Negative); Platelet Count 349 k/uL (150-450); Protein,Urine Negative (Negative); RBC 4.95 m/uL (3.80-5.40); RDW 14.9 % (11.5-15.5); Specific Gravity,Urine 1.035 (1.001-1.035); Urobilinogen,Urine <2.0 mg/dL (<2.0); WBC 13.1 k/uL (3.8-10.6)
[2020-10-09 01:49] LABS: ALT 31 U/L (4-34); AST 42 U/L (14-36); African American GFR (CKD) >90 (>60 ml/min/1.73 sqM); Albumin 4.3 g/dL (3.5-5.0); Alkaline Phosphatase 52 U/L (38-126); Anion Gap 10 mmol/L; Blood Urea Nitrogen 18 mg/dL (7-17); Calcium 9.6 mg/dL (8.4-10.2); Carbon Dioxide 25 mmol/L (22-30); Chloride 99 mmol/L (98-107); Glucose 384 mg/dL (74-99); Lipase 65 U/L (23-300); Non-African American GFR(CKD) 80 (>60 ml/min/1.73 sqM); Potassium 4.6 mmol/L (3.5-5.1); Sodium 134 mmol/L (137-145); Total Bilirubin 0.5 mg/dL (0.2-1.3); Total Protein 7.8 g/dL (6.3-8.2)
[2020-10-09] MEDS ORDERED: traMADol 50 MG TAB PO STA (02:10)
[2020-10-09 02:25] LABS: Hypochromasia (M) Present
--- NOTE | 2020-10-09 02:28 | CT ---
EXAM: CT Abdomen and Pelvis With Intravenous Contrast CLINICAL HISTORY: ITS.REASON CT Reason: Bilateral flank pain TECHNIQUE: Axial computed tomography images of the abdomen and pelvis with intravenous contrast. CTDI is 29.97 mGy and DLP is 1320.2 mGy-cm. This CT exam was performed using one or more of the following dose reduction techniques: automated exposure control, adjustment of the mA and/or kV according to patient size, and/or use of iterative reconstruction technique. COMPARISON: 04/23/2019. FINDINGS: Lung bases: Minimal subsegmental atelectasis lingular region. Heart: Heart is normal in size. ABDOMEN: Liver: Fatty infiltration of the liver is noted. Postsurgical changes about the left lobe of the liver. Gallbladder and bile ducts: Status post cholecystectomy. No ductal dilation. Pancreas: See below. Spleen: Spleen enhance uniformly. Adrenals: The adrenal glands, the head, body, tail of the pancreas are unremarkable. Kidneys and ureters: Both kidneys are shown to excrete contrast bilaterally without renal calculus or hydronephrosis. Nonspecific stranding about the perinephric spaces. Stomach and bowel: Postsurgical changes about the stomach. Moderate quantity of stool throughout the colon. No bowel obstruction. No mucosal thickening. PELVIS: Appendix: Status post appendectomy. Bladder: The bladder is underdistended. Reproductive: Unremarkable as visualized. ABDOMEN and PELVIS: Intraperitoneal space: Unremarkable. No free air. No significant fluid collection. Bones/joints: Mild to moderate degenerative disc disease of the visualized spine. Moderate osteoarthritic changes about the sacroiliac joints. No spondylolysis or spinal listhesis. Sacrum and coccyx are unremarkable. No acute fracture. No dislocation. Soft tissues: Unremarkable. Vasculature: Portal vein is unremarkable. No abdominal aortic aneurysm. Lymph nodes: Unremarkable. No enlarged lymph nodes. IMPRESSION: 1. Fatty liver. 2. Status post cholecystectomy. 3. No renal calculus or hydronephrosis. 4. Nonspecific stranding about the perinephric spaces 5. Status post appendectomy. 6. Moderate quantity of stool to the colon. 7. No bowel obstruction.
[2020-10-09] MEDS ORDERED: INSULIN REGULAR 100 UNIT/ML VIAL IV ONE (02:33)
[2020-10-09] MEDS ORDERED: HYDROmorphone 1 MG/ML 1 ML SYRINGE IVP STA (02:45)
== END 2020-10-09 03:06 | disposition home or self-care (01) ==
LOC: EC 00:38
DX: R10.9 Unspecified abdominal pain (principal); R81 Glycosuria; T14.8XXA Other injury of unspecified body region, initial encounter; E11.40 Type 2 diabetes mellitus with diabetic neuropathy, unspecified; E78.5 Hyperlipidemia, unspecified; I10 Essential (primary) hypertension; J45.909 Unspecified asthma, uncomplicated; K21.9 Gastro-esophageal reflux disease without esophagitis; F41.9 Anxiety disorder, unspecified; F32.9 Major depressive disorder, single episode, unspecified; Z79.84 Long term (current) use of oral hypoglycemic drugs; Z79.899 Other long term (current) drug therapy; Z88.5 Allergy status to narcotic agent; Z91.018 Allergy to other foods; Z91.048 Other nonmedicinal substance allergy status; Z91.041 Radiographic dye allergy status; Z88.8 Allergy status to other drugs, medicaments and biological substances; Z88.1 Allergy status to other antibiotic agents; Z91.010 Allergy to peanuts; Z91.013 Allergy to seafood; Z88.2 Allergy status to sulfonamides; Z98.84 Bariatric surgery status; Z86.73 Personal history of transient ischemic attack (TIA), and cerebral infarction without residual deficits; Z98.1 Arthrodesis status; Z85.41 Personal history of malignant neoplasm of cervix uteri; Z90.79 Acquired absence of other genital organ(s); Z90.49 Acquired absence of other specified parts of digestive tract
CPT/HCPCS: 36415; 80053; 82009; 83690; 85025; 81003; 81025; 74177; 99284; 96374; 96375 ×5; 96361; J1200; J2930; J2405; J1170; C9113; Q9967

== ENCOUNTER → 2021-01-21 | Outpatient (CLI) | payer OTHER ==
--- NOTE | 2021-01-24 08:20 | MM ---
Reason for exam: screening (asymptomatic). Last mammogram was performed 2 years ago. History: Patient has history of other cancer at age 23 and is nulliparous. Family history of breast cancer in grandmother. Taking unspecified hormones beginning at age 40. Physical Findings: A clinical breast exam by your physician is recommended on an annual basis and results should be correlated with mammographic findings. MG 3D Screening Mammo W/Cad Bilateral CC and MLO view(s) were taken. Prior study comparison: January 10, 2019, bilateral MG 3d screening mammo w/cad. January 09, 2018, bilateral MG screening mammo w CAD. There are scattered fibroglandular densities. There are benign appearing round calcifications bilaterally. There is no discrete abnormality. ASSESSMENT: Benign, BI-RAD 2 RECOMMENDATION: Routine screening mammogram of both breasts in 1 year.
== END | disposition home or self-care (01) ==
LOC: RADMAMWWP 09:56
PROVIDERS: ATTEND Family Medicine
DX: Z12.31 Encounter for screening mammogram for malignant neoplasm of breast (principal); Z80.3 Family history of malignant neoplasm of breast
CPT/HCPCS: 77063; 77067

== ENCOUNTER 2021-01-26 15:33 | Emergency (ER) | payer OTHER ==
[2021-01-26 15:42] VITALS: BP 121/87; PULSE 121; RESP 18; TEMP 98
[2021-01-26] MEDS ORDERED: SODIUM CHLORIDE 0.9% 1,000 ML IV STA ×2 (16:13→16:54)
[2021-01-26 16:36] LABS: Glucose,Whole Blood 548 mg/dL (75-99)
[2021-01-26 16:40] LABS: Basophils # (A) 0.1 k/uL (0-0.2); Basophils % (A) 1 %; Eosinophils # (A) 0.2 k/uL (0-0.7); Eosinophils % (A) 1 %; HGB 13.9 gm/dL (11.4-16.0); Lymphocytes # (A) 4.3 k/uL (1.0-4.8); Lymphocytes % (A) 29 %; MCH 25.5 pg (25.0-35.0); MCHC 32.4 g/dL (31.0-37.0); MCV 78.8 fL (80.0-100.0); Mean Platelet Volume 7.5; Monocytes # (A) 0.6 k/uL (0-1.0); Monocytes % (A) 4 %; Neutrophils # (A) 9.2 k/uL (1.3-7.7); Neutrophils % (A) 63 %; Platelet Count 417 k/uL (150-450); RBC 5.46 m/uL (3.80-5.40); VBG PH 7.5 (7.31-7.41); WBC 14.6 k/uL (3.8-10.6)
[2021-01-26 16:45] LABS: Appearance,Urine Clear (Clear); Bacteria,Urine Rare /hpf; Bilirubin,Urine Negative (Negative); Blood,Urine Negative (Negative); Color,Urine Light Yellow; Glucose,Urine (UA) 4+ (Negative); Ketones,Urine Negative (Negative); Leukocyte Esterase,Urine Trace (Negative); Mucus,Urine Rare /hpf; Nitrite,Urine Negative (Negative); PH, Urine 5.5 (5.0-8.0); Protein,Urine Negative (Negative); RBC,Urine 2 /hpf (0-5); Specific Gravity,Urine 1.037 (1.001-1.035); Squamous Epithelial Cell,Urine 1 /hpf (0-4); Urobilinogen,Urine <2.0 mg/dL (<2.0); WBC,Urine 8 /hpf (0-5)
[2021-01-26 16:53] LABS: ALT 44 U/L (4-34); AST 48 U/L (14-36); African American GFR (CKD) >90 (>60 ml/min/1.73 sqM); Albumin 4.7 g/dL (3.5-5.0); Alkaline Phosphatase 93 U/L (38-126); Anion Gap 15 mmol/L; Blood Urea Nitrogen 22 mg/dL (7-17); Calcium 10.4 mg/dL (8.4-10.2); Carbon Dioxide 26 mmol/L (22-30); Chloride 92 mmol/L (98-107); Magnesium 1.5 mg/dL (1.6-2.3); Non-African American GFR(CKD) >90 (>60 ml/min/1.73 sqM); Potassium 4.6 mmol/L (3.5-5.1); Sodium 133 mmol/L (137-145); Total Bilirubin 0.5 mg/dL (0.2-1.3); Total Protein 7.7 g/dL (6.3-8.2)
[2021-01-26] MEDS ORDERED: ONDANSETRON 4 MG/2 ML VIAL IVP STA (16:54)
[2021-01-26] MEDS ORDERED: diphenhydrAMINE 50 MG/ML 1 ML VIAL IVP STA (16:54)
[2021-01-26] MEDS ORDERED: METOCLOPRAMIDE 5 MG/ML 2 ML VIAL IVP STA (16:54)
[2021-01-26] MEDS ORDERED: INSULIN REGULAR 100 UNIT/ML VIAL (IV) IV ONE ×2 (16:55→18:08)
--- NOTE | 2021-01-26 16:55 | ED ---
Recheck HPI - General Chief Complaint: Recheck/Abnormal Lab/Rx Stated Complaint: migraine, hyperglycemia Time Seen by Provider: 01/26/21 16:12 Source: patient Mode of arrival: ambulatory Limitations: no limitations - History of Present Illness Initial Comments: 50-year-old female with history of migraines, type 2 diabetes currently on metformin presents to emergency department with chief complaint of hyperglycemia. States over the last several days her blood glucose levels have been consistently elevated in the 500s. States she has been also [place] stressed than usual which typically causes her to be hyperglycemic. She also reports having some objective urinary symptoms where she feels like going to the bathroom but nothing is coming out. However, she denies increased urgency frequency or dysuria. She also reports a right-sided headache that feels like her typical migraine headache with mild photosensitivity and nausea but no vomiting. States she took Imitrex and [id number] analgesics with no significant improvement in symptoms. Denies hematuria, hematochezia or melena. Denies any fevers or chills back pain or abdominal pain. States she has been otherwise drinking plenty of fluids. 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] 10 mg PO Q4HR PRN 03/06/18 06/04/19 Cetirizine HCl [Zyrtec] 10 mg PO HS 06/13/18 06/06/19 Ondansetron [Zofran ODT] 4 mg SL Q6H PRN 08/03/18 06/04/19 Biotin 10,000 mcg PO HS 10/08/18 06/04/19 Mirtazapine [Remeron] 15 mg PO HS PRN 10/08/18 06/04/19 buPROPion HCL [Wellbutrin XL] 300 mg PO QAM 12/24/18 06/06/19 LORazepam [Ativan] 0.5 mg PO QAM PRN 04/23/19 06/04/19 Propranolol HCl [Inderal Xl] 80 mg PO DAILY PRN 04/23/19 05/05/19 Acetaminophen [Tylenol Extra 1,000 mg PO DIRECTED PRN 05/05/19 06/04/19 Strength] Aspirin 325 mg PO DAILY 05/05/19 06/04/19 Cholecalciferol (Vitamin D3) 5,000 unit PO BID 05/05/19 06/04/19 [Vitamin D3] Multivitamin [Multivitamins Adult 1 each PO DAILY 05/05/19 06/04/19 Gummies] diazePAM [Valium] 0.5 mg PO DAILY PRN 05/05/19 06/06/19 Nasal Decongestant Otc 30 mg PO BID 06/04/19 06/04/19 Previous Rx's Medication Instructions Recorded Cephalexin [Keflex] 500 mg PO Q12HR 7 Days #14 cap 07/13/19 Clotrimazole/Betamethasone Dip 1 applic TOPICAL BID 7 Days #45 gm 10/09/20 [Lotrisone Cream] Allergies Allergy/AdvReac Type Severity Reaction Status Date / Time oxycodone [From Percocet] Allergy Unknown Swelling; Verified 01/26/21 15:39 (WAS ABLE TO TAKE ALONG WITH BENADRYL) apricot Allergy Dyspnea Verified 01/26/21 15:39 barium sulfate Allergy Anaphylaxis Verified 01/26/21 15:39 [From Readi-Cat] codeine Allergy Anaphylaxis Verified 01/26/21 15:39 fentanyl Allergy Rash/Hives Verified 01/26/21 15:39 hydrocodone [From Lortab] Allergy Swelling Verified 01/26/21 15:39 Iodinated Contrast Media Allergy Anaphylaxis Verified 01/26/21 15:39 iodine Allergy Rash/Hives Verified 01/26/21 15:39 iron Allergy Swelling Verified 01/26/21 15:39 levofloxacin [From Levaquin] Allergy Swelling Verified 01/26/21 15:39 morphine Allergy Rash/Hives, Verified 01/26/21 15:39 Nausea/Vomiting peach Allergy Swelling Verified 01/26/21 15:39 peanut Allergy Swelling Verified 01/26/21 15:39 peanut oil Allergy Anaphylaxis Verified 01/26/21 15:39 shellfish derived [Shellfish] Allergy Anaphylaxis Verified 01/26/21 15:39 strawberry Allergy Anaphylaxis Verified 01/26/21 15:39 sucralfate [From Carafate] Allergy Swelling Verified 01/26/21 15:39 Sulfa (Sulfonamide Allergy Anaphylaxis Verified 01/26/21 15:39 Antibiotics) sulfamethoxazole Allergy Anaphylaxis Verified 01/26/21 15:39 [From Bactrim] tree nut [Nut] Allergy Swelling Verified 01/26/21 15:39 trimethoprim [From Bactrim] Allergy Anaphylaxis Verified 01/26/21 15:39 metronidazole [From Flagyl] AdvReac Unknown Verified 01/26/21 15:39 Review of Systems ROS Statement: Those systems with pertinent positive or pertinent negative responses have been documented in the HPI. ROS Other: All systems not noted in ROS Statement are negative. Past Medical History Past Medical History: Asthma, Cancer, CVA/TIA, Diabetes Mellitus, Fibromyalgia, GERD/Reflux, Hearing Disorder / Deafness, Hyperlipidemia, Hypertension, Osteoarthritis (OA), Pneumonia Additional Past Medical History / Comment(s): Had Iron infusions in Apr 2019. Current double earache, on antibiotics, Dr Contreras aware. Hx TIA 2015. Diabetic neuropathy eli feet, migraines, cervical disc disease, DDD, eli tinnitis, arthiritis bilateral shoulders, IBS, HX R arm fx yrs ago, R ovarian cy st, hiatal hernia, UTIs, urinary calculus, pancreatitis x 2, stomach ulcer. Hx cervical cancer. COVID 08/2020 History of Any Multi-Drug Resistant Organisms: C-DIFF Date of last positivie culture/infection: 2015 MDRO Source:: None Past Surgical History: Appendectomy, Bariatric Surgery, Cholecystectomy, Tonsillectomy Additional Past Surgical History / Comment(s): 2010 felix-en-Y, fistula repair 2011, 2011 gastric bypass revision, bowel resection, lap gastrojejunostomy anast amosis revision, EGD and colonoscopy, cone bx-cervical cancer removed with cryo, L fallopian tube removed due to cyst, picc line in and out, CERVICAL FUSION 12/21/16. Past Anesthesia/Blood Transfusion Reactions: Family History of Problems w/ Anesthesia, Motion Sickness, Postoperative Nausea & Vomiting (PONV) Additional Past Anesthesia/Blood Transfusion Reaction / Comment(s): Pt states she has never recieved blood. FAMILY HX PONV. Past Psychological History: Anxiety, Depression Smoking Status: Never smoker Past Alcohol Use History: None Reported Past Drug Use History: None Reported - Past Family History Brother(s) Family Medical History: Deep Vein Thrombosis (DVT) Father Family Medical History: Cancer Additional Family Medical History / Comment(s): Father had poss colon and lung cancer and at age 73yrs. Mother Family Medical History: Coronary Artery Disease (CAD), Diabetes Mellitus, Deep Vein Thrombosis (DVT), Hypertension Additional Family Medical History / Comment(s): Mother is alive and 73 yrs old. General Exam Limitations: no limitations General appearance: alert, in no apparent distress Head exam: Present: atraumatic, normocephalic, normal inspection Eye exam: Present: normal appearance, PERRL, EOMI Pupils: Present: normal accommodation ENT exam: Present: normal exam, normal oropharynx, mucous membranes moist Neck exam: Present: normal inspection, full ROM. Absent: tenderness Respiratory exam: Present: normal lung sounds bilaterally. Absent: respiratory distress, wheezes, rales, rhonchi, stridor, chest wall tenderness, accessory mu scle use Cardiovascular Exam: Present: normal rhythm, tachycardia, normal heart sounds. Absent: systolic murmur GI/Abdominal exam: Present: soft. Absent: distended, tenderness, rebound Extremities exam: Present: normal inspection, full ROM, normal capillary refill. Absent: tenderness, pedal edema, joint swelling Back exam: Present: normal inspection, full ROM, CVA tenderness (L). Absent: tenderness, CVA tenderness (R) Neurological exam: Present: alert, oriented X3 Psychiatric exam: Present: normal affect, normal mood Skin exam: Present: warm, dry, intact, normal color Course Vital Signs 01/26/21 15:39 Temperature 98.0 F Pulse Rate 121 H Respiratory 18 Rate Blood Pressure 121/87 O2 Sat by Pulse 96 Oximetry Medical Decision Making - Medical Decision Making 50-year-old female with history of migraines, type 2 diabetes currently on metformin presents to emergency department with chief complaint of hyperglycemia. Physical examination is unremarkable aside from mild dry mucous membranes. No focal neural deficits. Patient was given 2 L of IV fluids, 8 units of regular insulin, Toradol, Reglan. CBC reveals mild hemoconcentration. CMP shows blood sugar 558. mild transaminitis. Mild hypercalcemia and hypomagnesemia.and on gap of 15. UA shows plus for glucose but no signs of ketones. Acetone negative. BUN of 22. It appears to be hyperglycemia with some dehydration. On reevaluation, patient reported improvement in her migraine headache. Repeat glucose was 333. I also gave her an additional 4 units of regular insulin. Patient reports feeling well to go home. Advised to follow up with the primary care physician in order to readjust her diabetic medications. Strict return parameters were thoroughly discussed the patient is an attending agreeable. Case discussed with Dr. Fonseca. - Lab Data Result diagrams: 01/26/21 16:19 01/26/21 16:19 Lab Results 01/26/21 01/26/21 01/26/21 Range/Units 16:19 16:19 16:19 WBC 14.6 H (3.8-10.6) k/uL RBC 5.46 H (3.80-5.40) m/uL Hgb 13.9 (11.4-16.0) gm/dL Hct 43.0 (34.0-46.0) % MCV 78.8 L (80.0-100.0) fL MCH 25.5 (25.0-35.0) pg MCHC 32.4 (31.0-37.0) g/dL RDW 15.0 (11.5-15.5) % Plt Count 417 (150-450) k/uL MPV 7.5 Neutrophils % 63 % Lymphocytes % 29 % Monocytes % 4 % Eosinophils % 1 % Basophils % 1 % Neutrophils # 9.2 H (1.3-7.7) k/uL Lymphocytes # 4.3 (1.0-4.8) k/uL Monocytes # 0.6 (0-1.0) k/uL Eosinophils # 0.2 (0-0.7) k/uL Basophils # 0.1 (0-0.2) k/uL VBG pH (7.31-7.41) VBG pCO2 (37-51) mmHg VBG HCO3 (24-28) mmol/L Sodium 133 L (137-145) mmol/L Potassium 4.6 (3.5-5.1) mmol/L Chloride 92 L (98-107) mmol/L Carbon Dioxide 26 (22-30) mmol/L Anion Gap 15 mmol/L BUN 22 H (7-17) mg/dL Creatinine 0.68 (0.52-1.04) mg/dL Est GFR (CKD-EPI)AfAm >90 (>60 ml/min/1.73 sqM) Est GFR (CKD-EPI)NonAf >90 (>60 ml/min/1.73 sqM) Glucose 558 H* (74-99) mg/dL POC Glucose (mg/dL) (75-99) mg/dL POC Glu Stogie Packer ID Calcium 10.4 H (8.4-10.2) mg/dL Magnesium 1.5 L (1.6-2.3) mg/dL Total Bilirubin 0.5 (0.2-1.3) mg/dL AST 48 H (14-36) U/L ALT 44 H (4-34) U/L Alkaline Phosphatase 93 (38-126) U/L Total Protein 7.7 (6.3-8.2) g/dL Albumin 4.7 (3.5-5.0) g/dL Urine Color Light Yellow Urine Appearance Clear (Clear) Urine pH 5.5 (5.0-8.0) Ur Specific [place] 1.037 H (1.001-1.035) Urine Protein Negative (Negative) Urine Glucose (UA) 4+ H (Negative) Urine Ketones Negative (Negative) Urine Blood Negative (Negative) Urine Nitrite Negative (Negative) Urine Bilirubin Negative (Negative) Urine Urobilinogen <2.0 (<2.0) mg/dL Ur Leukocyte Esterase Trace H (Negative) Urine RBC 2 (0-5) /hpf Urine WBC 8 H (0-5) /hpf Ur Squamous Epith Cells 1 (0-4) /hpf Urine Bacteria Rare H (None) /hpf Urine Mucus Rare H (None) /hpf Acetone, Qual Negative (Negative) 01/26/21 01/26/21 01/26/21 Range/Units 16:19 16:35 18:06 WBC (3.8-10.6) k/uL RBC (3.80-5.40) m/uL Hgb (11.4-16.0) gm/dL Hct (34.0-46.0) % MCV (80.0-100.0) fL MCH (25.0-35.0) pg MCHC (31.0-37.0) g/dL RDW (11.5-15.5) % Plt Count (150-450) k/uL MPV Neutrophils % % Lymphocytes % % Monocytes % % Eosinophils % % Basophils % % Neutrophils # (1.3-7.7) k/uL Lymphocytes # (1.0-4.8) k/uL Monocytes # (0-1.0) k/uL Eosinophils # (0-0.7) k/uL Basophils # (0-0.2) k/uL VBG pH 7.50 H (7.31-7.41) VBG pCO2 35 L (37-51) mmHg VBG HCO3 27 (24-28) mmol/L Sodium (137-145) mmol/L Potassium (3.5-5.1) mmol/L Chloride (98-107) mmol/L Carbon Dioxide (22-30) mmol/L Anion Gap mmol/L BUN (7-17) mg/dL Creatinine (0.52-1.04) mg/dL Est GFR (CKD-EPI)AfAm (>60 ml/min/1.73 sqM) Est GFR (CKD-EPI)NonAf (>60 ml/min/1.73 sqM) Glucose (74-99) mg/dL POC Glucose (mg/dL) 548 H 333 H (75-99) mg/dL POC Glu Stogie Packer Annie Johns Jennifer Calcium (8.4-10.2) mg/dL Magnesium (1.6-2.3) mg/dL Total Bilirubin (0.2-1.3) mg/dL AST (14-36) U/L ALT (4-34) U/L Alkaline Phosphatase (38-126) U/L Total Protein (6.3-8.2) g/dL Albumin (3.5-5.0) g/dL Urine Color Urine Appearance (Clear) Urine pH (5.0-8.0) Ur Specific [place] (1.001-1.035) Urine Protein (Negative) Urine Glucose (UA) (Negative) Urine Ketones (Negative) Urine Blood (Negative) Urine Nitrite (Negative) Urine Bilirubin (Negative) Urine Urobilinogen (<2.0) mg/dL Ur Leukocyte Esterase (Negative) Urine RBC (0-5) /hpf Urine WBC (0-5) /hpf Ur Squamous Epith Cells (0-4) /hpf Urine Bacteria (None) /hpf Urine Mucus (None) /hpf Acetone, Qual (Negative) Disposition Clinical Impression: Hyperglycemia due to type 2 diabetes mellitus, Migraine, Transaminitis Disposition: HOME SELF-CARE Condition: Stable Instructions (If sedation given, give patient instructions): Diabetic Hyperglycemia (ED), Diabetes and Exercise (ED) Additional Instructions: Follow-up with her primary care physician. Return to emergency department if symptoms worsen. Is patient prescribed a controlled substance at d/c from ED?: No Referrals: Macy Knight MD [Primary Care Provider] - 1-2 days Time of Disposition: 18:10
[2021-01-26 17:12] LABS: Glucose 558 mg/dL (74-99)
[2021-01-26 18:08] LABS: Glucose,Whole Blood 333 mg/dL (75-99)
== END 2021-01-26 18:22 | disposition home or self-care (01) ==
LOC: EC 15:33
DX: E11.65 Type 2 diabetes mellitus with hyperglycemia (principal); G43.909 Migraine, unspecified, not intractable, without status migrainosus; F32.9 Major depressive disorder, single episode, unspecified; J45.909 Unspecified asthma, uncomplicated; Z86.73 Personal history of transient ischemic attack (TIA), and cerebral infarction without residual deficits; M79.7 Fibromyalgia; E78.5 Hyperlipidemia, unspecified; I10 Essential (primary) hypertension; K21.9 Gastro-esophageal reflux disease without esophagitis; M19.90 Unspecified osteoarthritis, unspecified site; Z90.89 Acquired absence of other organs; Z90.49 Acquired absence of other specified parts of digestive tract; Z90.09 Acquired absence of other part of head and neck; Z79.84 Long term (current) use of oral hypoglycemic drugs
CPT/HCPCS: 36415; 80053; 82803; 82009; 83735; 85025; 81001; 99284; 96374; 96375 ×3; 96376; 96361; J1200; J2765; J2405

== ENCOUNTER → 2021-03-11 | Outpatient (CLI) | payer OTHER | END | disposition home or self-care (01) | LOC: LABWHC1 11:41 | PROVIDERS: ATTEND Family Medicine | DX: I10 Essential (primary) hypertension (principal); R94.31 Abnormal electrocardiogram [ECG] [EKG] | CPT/HCPCS: 36415; 93005 ==

== ENCOUNTER 2021-03-26 19:54 | Emergency (ER) | payer OTHER ==
[2021-03-26 20:06] VITALS: RESP 18
--- NOTE | 2021-03-26 20:25 | ED ---
General Adult HPI - General Chief complaint: Nausea/Vomiting/Diarrhea Stated complaint: NVD Time Seen by Provider: 03/26/21 20:09 Source: patient Mode of arrival: ambulatory - History of Present Illness Initial comments: Dictation was produced using [email or web address] dictation software. please excuse any grammatical, word or spelling errors. Chief Complaint: 50-year-old female with past medical history of asthma, diabetes fibromyalgia presents emergency department for 7 days of cough, congestion, nausea vomiting diarrhea and weakness History of Present Illness: 50-year-old female she states for the last week she's been having cough and congestion. She complains of some much redness of breath. It having low-grade temperatures at home. Patient has had coronavirus and also the Covid vaccine. She was around some unvaccinated neighbors who tested positive recently. States that she has not been feeling better. She has been having a nonproductive cough. Shows eyes symptoms of nausea, nonbilious nonbloody vomiting and some diarrhea. Patient's was sick recently however he has recovered without any issues. The ROS documented in this emergency department record has been reviewed and confirmed by me. Those systems with pertinent positive or negative responses have been documented in the HPI. All other systems are other negative and/or noncontributory. PHYSICAL EXAM: General Impression: Alert and oriented x3, not in acute distress HEENT: Normocephalic atraumatic, extra-ocular movements intact, pupils equal and reactive to light bilaterally, mucous membranes moist, no oropharyngeal erythema Cardiovascular: Heart regular rate and rhythm Chest: Able to complete full sentences, no retractions, no tachypnea, lungs clear to auscultation bilaterally Abdomen: abdomen soft, non-tender, non-distended, no organomegaly Musculoskeletal: Pulses present and equal in all extremities, no peripheral edema Motor: no focal deficits noted Neurological: CN II-XII grossly intact, no focal motor or sensory deficits noted Skin: Intact with no visualized rashes Psych: Normal affect and mood ED course: 50-year-old female presents with URI-type symptoms. Vital signs upon arrival are within acceptable limits. Laboratory evaluation obtained. Mild leukocytosis 11.7. Metabolic panel shows mild acidosis. Likely from starvation dehydration. Magnesium 1.5. Patient given oral magnesium. 4 panel viral PCR is negative for influenza, RSV and coronavirus. Chest x-ray is nonacute. Clinical presentation likely secondary to viral upper respiratory infection. Patient will be discharged. She is advised ttreat her symptoms with jjal-bgg-scyttot medications. EKG interpretation: Ventricular rate 80, normal sinus rhythm, IL interval 136, QRS 92, QTc 449. No IL prolongation, no QTC prolongation, no ST or T-wave changes noted. Overall, this EKG is unremarkable - Related Data Home Medications Medication Instructions Recorded Confirmed Furosemide [Lasix] 20 mg PO QAM 09/19/16 06/06/19 LORazepam [Ativan] 1 mg PO HS PRN 09/27/17 06/04/19 metFORMIN HCL [Glucophage] 250 mg PO AC-SUPPER 09/27/17 06/06/19 Escitalopram [Lexapro] 20 mg PO HS 01/15/18 06/06/19 Rizatriptan Benzoate [Maxalt LAPELER] 10 mg PO Q4HR PRN 03/06/18 06/04/19 Cetirizine HCl [Zyrtec] 10 mg PO HS 06/13/18 06/06/19 Ondansetron [Zofran ODT] 4 mg SL Q6H PRN 08/03/18 06/04/19 Biotin 10,000 mcg PO HS 10/08/18 06/04/19 Mirtazapine [Remeron] 15 mg PO HS PRN 10/08/18 06/04/19 buPROPion HCL [Wellbutrin XL] 300 mg PO QAM 12/24/18 06/06/19 LORazepam [Ativan] 0.5 mg PO QAM PRN 04/23/19 06/04/19 Propranolol HCl [Inderal Xl] 80 mg PO DAILY PRN 04/23/19 05/05/19 Acetaminophen [Tylenol Extra 1,000 mg PO DIRECTED PRN 05/05/19 06/04/19 Strength] Aspirin 325 mg PO DAILY 05/05/19 06/04/19 Cholecalciferol (Vitamin D3) 5,000 unit PO BID 05/05/19 06/04/19 [Vitamin D3] Multivitamin [Multivitamins Adult 1 each PO DAILY 05/05/19 06/04/19 Gummies] diazePAM [Valium] 0.5 mg PO DAILY PRN 05/05/19 06/06/19 Nasal Decongestant Otc 30 mg PO BID 06/04/19 06/04/19 Previous Rx's Medication Instructions Recorded Cephalexin [Keflex] 500 mg PO Q12HR 7 Days #14 cap 07/13/19 Clotrimazole/Betamethasone Dip 1 applic TOPICAL BID 7 Days #45 gm 10/09/20 [Lotrisone Cream] Allergies Allergy/AdvReac Type Severity Reaction Status Date / Time oxycodone [From Percocet] Allergy Unknown Swelling; Verified 03/26/21 20:06 (WAS ABLE TO TAKE ALONG WITH BENADRYL) apricot Allergy Dyspnea Verified 03/26/21 20:06 barium sulfate Allergy Anaphylaxis Verified 03/26/21 20:06 [From Readi-Cat] codeine Allergy Anaphylaxis Verified 03/26/21 20:06 fentanyl Allergy Rash/Hives Verified 03/26/21 20:06 hydrocodone [From Lortab] Allergy Swelling Verified 03/26/21 20:06 Iodinated Contrast Media Allergy Anaphylaxis Verified 03/26/21 20:06 iodine Allergy Rash/Hives Verified 03/26/21 20:06 iron Allergy Swelling Verified 03/26/21 20:06 levofloxacin [From Levaquin] Allergy Swelling Verified 03/26/21 20:06 morphine Allergy Rash/Hives, Verified 03/26/21 20:06 Nausea/Vomiting peach Allergy Swelling Verified 03/26/21 20:06 peanut Allergy Swelling Verified 03/26/21 20:06 peanut oil Allergy Anaphylaxis Verified 03/26/21 20:06 shellfish derived [Shellfish] Allergy Anaphylaxis Verified 03/26/21 20:06 strawberry Allergy Anaphylaxis Verified 03/26/21 20:06 sucralfate [From Carafate] Allergy Swelling Verified 03/26/21 20:06 Sulfa (Sulfonamide Allergy Anaphylaxis Verified 03/26/21 20:06 Antibiotics) sulfamethoxazole Allergy Anaphylaxis Verified 03/26/21 20:06 [From Bactrim] tree nut [Nut] Allergy Swelling Verified 03/26/21 20:06 trimethoprim [From Bactrim] Allergy Anaphylaxis Verified 03/26/21 20:06 metronidazole [From Flagyl] AdvReac Unknown Verified 03/26/21 20:06 Review of Systems ROS Statement: Those systems with pertinent positive or pertinent negative responses have been documented in the HPI. ROS Other: All systems not noted in ROS Statement are negative. Past Medical History Past Medical History: Asthma, Cancer, CVA/TIA, Diabetes Mellitus, Fibromyalgia, GERD/Reflux, Hearing Disorder / Deafness, Hyperlipidemia, Hypertension, Osteoarthritis (OA), Pneumonia Additional Past Medical History / Comment(s): Had Iron infusions in Apr 2019. Current double earache, on antibiotics, Dr Contreras aware. Hx TIA 2015. Diabetic neuropathy eli feet, migraines, cervical disc disease, DDD, eli tinnitis, arthiritis bilateral shoulders, IBS, HX R arm fx yrs ago, R ovarian cyst, hiatal hernia, UTIs, urinary calculus, pancreatitis x 2, stomach ulcer. Hx cervical cancer. COVID 08/2020 History of Any Multi-Drug Resistant Organisms: C-DIFF Date of last positivie culture/infection: 2015 MDRO Source:: None Past Surgical History: Appendectomy, Bariatric Surgery, Cholecystectomy, Tonsillectomy Additional Past Surgical History / Comment(s): 2010 felix-en-Y, fistula repair 2011, 2011 gastric bypass revision, bowel resection, lap gastrojejunostomy anastamosis revision, EGD and colonoscopy, cone bx-cervical cancer removed with cryo, L fallopian tube removed due to cyst, picc line in and out, CERVICAL FUSION 12/21/16. Past Anesthesia/Blood Transfusion Reactions: Family History of Problems w/ Anesthesia, Motion Sickness, Postoperative Nausea & Vomiting (PONV) Additional Past Anesthesia/Blood Transfusion Reaction / Comment(s): Pt states she has never recieved blood. FAMILY HX PONV. Past Psychological History: Anxiety, Depression Smoking Status: Never smoker Past Alcohol Use History: None Reported Past Drug Use History: None Reported - Past Family History Brother(s) Family Medical History: Deep Vein Thrombosis (DVT) Father Family Medical History: Cancer Additional Family Medical History / Comment(s): Father had poss colon and lung cancer and at age 73yrs. Mother Family Medical History: Coronary Artery Disease (CAD), Diabetes Mellitus, Deep Vein Thrombosis (DVT), Hypertension Additional Family Medical History / Comment(s): Mother is alive and 73 yrs old. Course Vital Signs 03/26/21 03/26/21 20:03 20:25 Temperature 98.2 F Pulse Rate 100 Respiratory 18 18 Rate Blood Pressure 97/68 O2 Sat by Pulse 98 Oximetry Medical Decision Making - Lab Data Result diagrams: 03/26/21 20:38 03/26/21 20:38 Lab Results 03/26/21 03/26/21 03/26/21 Range/Units 20:38 20:38 20:38 WBC 11.7 H (3.8-10.6) k/uL RBC 4.93 (3.80-5.40) m/uL Hgb 12.6 (11.4-16.0) gm/dL Hct 39.4 (34.0-46.0) % MCV 80.0 (80.0-100.0) fL MCH 25.5 (25.0-35.0) pg MCHC 31.9 (31.0-37.0) g/dL RDW 14.7 (11.5-15.5) % Plt Count 402 (150-450) k/uL MPV 7.7 Neutrophils % 54 % Lymphocytes % 36 % Monocytes % 5 % Eosinophils % 2 % Basophils % 1 % Neutrophils # 6.3 (1.3-7.7) k/uL Lymphocytes # 4.1 (1.0-4.8) k/uL Monocytes # 0.6 (0-1.0) k/uL Eosinophils # 0.3 (0-0.7) k/uL Basophils # 0.1 (0-0.2) k/uL Sodium 137 (137-145) mmol/L Potassium 4.4 (3.5-5.1) mmol/L Chloride 106 (98-107) mmol/L Carbon Dioxide 19 L (22-30) mmol/L Anion Gap 12 mmol/L BUN 17 (7-17) mg/dL Creatinine 0.62 (0.52-1.04) mg/dL Est GFR (CKD-EPI)AfAm >90 (>60 ml/min/1.73 sqM) Est GFR (CKD-EPI)NonAf >90 (>60 ml/min/1.73 sqM) Glucose 142 H (74-99) mg/dL Calcium 9.6 (8.4-10.2) mg/dL Magnesium 1.5 L (1.6-2.3) mg/dL Total Bilirubin 0.5 (0.2-1.3) mg/dL AST 103 H (14-36) U/L ALT 88 H (4-34) U/L Alkaline Phosphatase 80 (38-126) U/L Total Protein 7.4 (6.3-8.2) g/dL Albumin 4.5 (3.5-5.0) g/dL Influenza Type A (PCR) Not Detected (Not Detectd) Influenza Type B (PCR) Not Detected (Not Detectd) RSV (PCR) Not Detected (Not Detectd) SARS-CoV-2 (PCR) Not Detected (Not Detectd) Disposition Clinical Impression: Viral URI Disposition: HOME SELF-CARE Condition: Good Instructions (If sedation given, give patient instructions): Upper Respiratory Infection (ED) Is patient prescribed a controlled substance at d/c from ED?: No Referrals: Macy Knight MD [Primary Care Provider] - 1-2 days
[2021-03-26] MEDS: SODIUM CHLORIDE 0.9% 1,000 ML IV STA (20:45)
--- NOTE | 2021-03-26 20:47 | XR ---
EXAMINATION TYPE: XR chest 1V portable DATE OF EXAM: 03/26/2021 COMPARISON: 05/03/2018 HISTORY: Chest congestion TECHNIQUE: FINDINGS: Heart and mediastinum are normal. Lungs are clear of infiltrate. There is no heart failure. There are no hilar masses. Bony thorax is intact. There is no evidence of pleural effusion. IMPRESSION: No active cardiopulmonary disease. No change.
[2021-03-26 21:03] LABS: Basophils # (A) 0.1 k/uL (0-0.2); Basophils % (A) 1 %; Eosinophils # (A) 0.3 k/uL (0-0.7); Eosinophils % (A) 2 %; HCT 39.4 % (34.0-46.0); HGB 12.6 gm/dL (11.4-16.0); Lymphocytes # (A) 4.1 k/uL (1.0-4.8); Lymphocytes % (A) 36 %; MCH 25.5 pg (25.0-35.0); MCHC 31.9 g/dL (31.0-37.0); Mean Platelet Volume 7.7; Monocytes # (A) 0.6 k/uL (0-1.0); Monocytes % (A) 5 %; Neutrophils # (A) 6.3 k/uL (1.3-7.7); Neutrophils % (A) 54 %; Platelet Count 402 k/uL (150-450); RBC 4.93 m/uL (3.80-5.40); RDW 14.7 % (11.5-15.5); WBC 11.7 k/uL (3.8-10.6)
[2021-03-26 21:12] LABS: ALT 88 U/L (4-34); AST 103 U/L (14-36); African American GFR (CKD) >90 (>60 ml/min/1.73 sqM); Albumin 4.5 g/dL (3.5-5.0); Alkaline Phosphatase 80 U/L (38-126); Anion Gap 12 mmol/L; Blood Urea Nitrogen 17 mg/dL (7-17); Calcium 9.6 mg/dL (8.4-10.2); Carbon Dioxide 19 mmol/L (22-30); Chloride 106 mmol/L (98-107); Glucose 142 mg/dL (74-99); Magnesium 1.5 mg/dL (1.6-2.3); Non-African American GFR(CKD) >90 (>60 ml/min/1.73 sqM); Potassium 4.4 mmol/L (3.5-5.1); Sodium 137 mmol/L (137-145); Total Bilirubin 0.5 mg/dL (0.2-1.3); Total Protein 7.4 g/dL (6.3-8.2)
[2021-03-26] MEDS: MAGNESIUM OXIDE 400 MG TAB PO STA (21:59)
[2021-03-26 22:33] VITALS: BP 115/82; PULSE 18; TEMP 97.7
== END 2021-03-26 22:34 | disposition home or self-care (01) ==
LOC: EC 19:54
DX: J06.9 Acute upper respiratory infection, unspecified (principal); B97.89 Other viral agents as the cause of diseases classified elsewhere; Z20.822 Contact with and (suspected) exposure to COVID-19; I10 Essential (primary) hypertension; J45.909 Unspecified asthma, uncomplicated; E78.5 Hyperlipidemia, unspecified; E11.40 Type 2 diabetes mellitus with diabetic neuropathy, unspecified; F32.9 Major depressive disorder, single episode, unspecified; F41.9 Anxiety disorder, unspecified; K21.9 Gastro-esophageal reflux disease without esophagitis; K58.0 Irritable bowel syndrome with diarrhea; M19.90 Unspecified osteoarthritis, unspecified site; G43.909 Migraine, unspecified, not intractable, without status migrainosus; M79.7 Fibromyalgia; Z86.73 Personal history of transient ischemic attack (TIA), and cerebral infarction without residual deficits; Z87.440 Personal history of urinary (tract) infections; Z79.82 Long term (current) use of aspirin; Z79.84 Long term (current) use of oral hypoglycemic drugs; Z88.1 Allergy status to other antibiotic agents; Z88.2 Allergy status to sulfonamides; Z88.5 Allergy status to narcotic agent; Z88.8 Allergy status to other drugs, medicaments and biological substances; Z90.49 Acquired absence of other specified parts of digestive tract; Z90.79 Acquired absence of other genital organ(s); Z98.84 Bariatric surgery status
CPT/HCPCS: 36415; 71045; 80053; 83735; 85025; 87636; 93005; 96360; 99285

== ENCOUNTER 2022-02-28 12:06 | Observation (INO) | payer OTHER ==
[2022-02-28 12:49] LABS: Appearance,Urine Cloudy (Clear); Bacteria,Urine Occasional /hpf; Bilirubin,Urine Negative (Negative); Blood,Urine Negative (Negative); Color,Urine Yellow; Glucose,Urine (UA) 2+ (Negative); Hyaline Casts,Urine 5 /lpf (0-2); Ketones,Urine Negative (Negative); Leukocyte Esterase,Urine Moderate (Negative); Mucus,Urine Many /hpf; Nitrite,Urine Negative (Negative); PH, Urine 5.5 (5.0-8.0); Protein,Urine 1+ (Negative); RBC,Urine 3 /hpf (0-5); Specific Gravity,Urine 1.027 (1.001-1.035); Squamous Epithelial Cell,Urine 32 /hpf (0-4); Urobilinogen,Urine <2.0 mg/dL (<2.0); WBC,Urine 15 /hpf (0-5)
[2022-02-28] MEDS ORDERED: ONDANSETRON 4 MG/2 ML VIAL IVP STA ×2 (14:07→17:18)
[2022-02-28] MEDS ORDERED: SODIUM CHLORIDE 0.9% 1,000 ML IV STA (14:07)
[2022-02-28] MEDS ORDERED: KETOROLAC 15 MG/ML 1 ML VIAL IVP STA (14:10)
[2022-02-28] MEDS ORDERED: FAMOTIDINE 20 MG/2 ML VIAL IV STA (14:19)
[2022-02-28] MEDS ORDERED: methylPREDNISolone SOD SUCCI 125 MG/2 ML VIAL IV STA (14:19)
[2022-02-28] MEDS ORDERED: diphenhydrAMINE 50 MG/ML 1 ML VIAL IVP STA (14:19)
[2022-02-28 14:46] LABS: Basophils # (A) 0.1 k/uL (0-0.2); Basophils % (A) 1 %; Eosinophils # (A) 0.3 k/uL (0-0.7); Eosinophils % (A) 2 %; HCT 38.5 % (34.0-46.0); HGB 12.2 gm/dL (11.4-16.0); Hypochromasia Moderate; Lymphocytes # (A) 4.8 k/uL (1.0-4.8); Lymphocytes % (A) 39 %; MCH 23.3 pg (25.0-35.0); MCHC 31.8 g/dL (31.0-37.0); Mean Platelet Volume 7.5; Microcytosis Slight; Monocytes # (A) 0.6 k/uL (0-1.0); Monocytes % (A) 5 %; Neutrophils # (A) 6.2 k/uL (1.3-7.7); Neutrophils % (A) 51 %; Platelet Count 452 k/uL (150-450); RBC 5.24 m/uL (3.80-5.40); RDW 14.7 % (11.5-15.5); WBC 12.2 k/uL (3.8-10.6)
[2022-02-28 14:56] LABS: ALT 45 U/L (4-34); AST 53 U/L (14-36); African American GFR (CKD) >90 (>60 ml/min/1.73 sqM); Alkaline Phosphatase 145 U/L (38-126); Amylase 55 U/L (30-110); Anion Gap 12 mmol/L; Blood Urea Nitrogen 15 mg/dL (7-17); Calcium 9.8 mg/dL (8.4-10.2); Carbon Dioxide 26 mmol/L (22-30); Chloride 101 mmol/L (98-107); Glucose 136 mg/dL (74-99); Lipase 137 U/L (23-300); Non-African American GFR(CKD) >90 (>60 ml/min/1.73 sqM); Potassium 3.9 mmol/L (3.5-5.1); Sodium 139 mmol/L (137-145); Total Bilirubin 0.8 mg/dL (0.2-1.3); Total Protein 8.8 g/dL (6.3-8.2)
[2022-02-28 14:57] LABS: MCV 73.4 fL (80.0-100.0)
[2022-02-28 15:11] LABS: Partial Thromboplastin Time 22.1 sec (22.0-30.0); Prothrombin Time 10.6 sec (9.0-12.0)
[2022-02-28] MEDS ORDERED: HYDROmorphone 1 MG/ML 1 ML SYRINGE IVP STA (15:59)
--- NOTE | 2022-02-28 16:16 | CT ---
EXAMINATION TYPE: CT abdomen pelvis w con DATE OF EXAM: 02/28/2022 COMPARISON: CT 10/09/2020 HISTORY: abdominal pain CT DLP: 1372.5 mGycm Automated exposure control for dose reduction was used. TECHNIQUE: Helical acquisition of images from the lung bases through the pelvis have been completed. CONTRAST: Performed without Oral Contrast and with IV Contrast, patient injected with 100 mL of Isovue 300. FINDINGS: Postop changes are noted to the stomach and proximal small bowel, upper abdomen shows multi ple surgical clips LUNG BASES: No significant abnormality is appreciated. AORTA: No significant abnormality is appreciated. LIVER/GB: Patient is post cholecystectomy. Liver shows low attenuation possibly due to hepatic steato sis. Prominence of the common bile duct likely due to postcholecystectomy change PANCREAS: No significant abnormality is seen. SPLEEN: No significant abnormality is seen. Probable splenule noted anterior to the spleen ADRENALS: No significant abnormality is seen. KIDNEYS: No significant abnormality is seen. REPRODUCTIVE ORGANS: Not seen BOWEL: Patient is likely post appendectomy. Postop changes are noted to the bowel. FREE AIR: No Free Air visible. ASCITES: None visible. PELVIC ADENOPATHY: None visualized. RETROPERITONEAL ADENOPATHY: No Retroperitoneal Adenopathy visible. URINARY BLADDER: No significant abnormality is seen. OSSEOUS STRUCTURES: No significant abnormality is seen. IMPRESSION: POSTOP CHANGES, CORRELATE WITH PATIENT'S SURGICAL HISTORY. HEPATIC STEATOSIS.
--- NOTE | 2022-02-28 16:20 | ED ---
Abdominal Pain HPI - General Chief Complaint: Abdominal Pain Stated Complaint: abd pain Time Seen by Provider: 02/28/22 13:53 Source: patient Mode of arrival: ambulatory Limitations: no limitations - History of Present Illness Initial Comments: Patient is a 51-year-old female presenting with chief complaint of abdominal pain. History of asthma, diabetes, hypertension, hyperlipidemia Patient states the pain is been ongoing for the last few days, and is present diffusely across the abdomen. She admits to nausea and vomiting. Denies hematemesis or coffee- ground emesis. Patient has had a cholecystectomy, appendectomy, gastric bypass, and history of ileus. She denies any dysuria, hematuria, urgency, frequency. Denies any diarrhea, constipation, hematochezia, melena. Denies chest pain, shortness of breath, fever, chills, weakness, headache, vision or hearing changes. - Related Data Home Medications Medication Instructions Recorded Confirmed Escitalopram [Lexapro] 20 mg PO DAILY 01/15/18 02/28/22 Cetirizine HCl [Zyrtec] 10 mg PO DAILY 06/13/18 02/28/22 Mirtazapine [Remeron] 15 mg PO HS 10/08/18 02/28/22 buPROPion HCL [Wellbutrin XL] 300 mg PO DAILY 12/24/18 02/28/22 LORazepam [Ativan] 0.5 mg PO QID PRN 04/23/19 02/28/22 Propranolol HCl [Inderal Xl] 80 mg PO DAILY 04/23/19 02/28/22 Albuterol Nebulized [Ventolin 2.5 mg INHALATION RT-Q6H PRN 02/28/22 02/28/22 Nebulized] Dulaglutide [Trulicity] 3 mg SQ SA 02/28/22 02/28/22 Gabapentin 300 mg PO TID 02/28/22 02/28/22 Insulin Aspart [NovoLOG Flexpen] See Protocol SQ AC-TID 02/28/22 02/28/22 Rizatriptan Odt [Maxalt Power Plant Manager] 10 mg PO BID PRN 02/28/22 02/28/22 Rosuvastatin Calcium [Crestor] 40 mg PO DAILY 02/28/22 02/28/22 busPIRone HCL 15 mg PO BID PRN 02/28/22 02/28/22 metFORMIN HCL ER [Glucophage XR] 1,000 mg PO TID 02/28/22 02/28/22 Allergies Allergy/AdvReac Type Severity Reaction Status Date / Time oxycodone [From Percocet] Allergy Unknown Swelling; Verified 02/28/22 15:48 (WAS ABLE TO TAKE ALONG WITH BENADRYL) apricot Allergy Dyspnea Verified 02/28/22 15:48 barium sulfate Allergy Anaphylaxis Verified 02/28/22 15:48 [From Readi-Cat] codeine Allergy Anaphylaxis Verified 02/28/22 15:48 fentanyl Allergy Rash/Hives Verified 02/28/22 15:48 hydrocodone [From Lortab] Allergy Swelling Verified 02/28/22 15:48 Iodinated Contrast Media Allergy Anaphylaxis Verified 02/28/22 15:48 iodine Allergy Rash/Hives Verified 02/28/22 15:48 iron Allergy Swelling Verified 02/28/22 15:48 levofloxacin [From Levaquin] Allergy Swelling Verified 02/28/22 15:48 morphine Allergy Rash/Hives, Verified 02/28/22 15:48 Nausea/Vomiting peach Allergy Swelling Verified 02/28/22 15:48 peanut Allergy Swelling Verified 02/28/22 15:48 peanut oil Allergy Anaphylaxis Verified 02/28/22 15:48 shellfish derived [Shellfish] Allergy Anaphylaxis Verified 02/28/22 15:48 strawberry Allergy Anaphylaxis Verified 02/28/22 15:48 sucralfate [From Carafate] Allergy Swelling Verified 02/28/22 15:48 Sulfa (Sulfonamide Allergy Anaphylaxis Verified 02/28/22 15:48 Antibiotics) sulfamethoxazole Allergy Anaphylaxis Verified 02/28/22 15:48 [From Bactrim] tree nut [Nut] Allergy Swelling Verified 02/28/22 15:48 trimethoprim [From Bactrim] Allergy Anaphylaxis Verified 02/28/22 15:48 metronidazole [From Flagyl] AdvReac Unknown Verified 02/28/22 15:48 Review of Systems ROS Statement: Those systems with pertinent positive or pertinent negative responses have been documented in the HPI. ROS Other: All systems not noted in ROS Statement are negative. Past Medical History Past Medical History: Asthma, Cancer, CVA/TIA, Diabetes Mellitus, Fibromyalgia, GERD/Reflux, Hearing Disorder / Deafness, Hyperlipidemia, Hypertension, Osteoarthritis (OA), Pneumonia Additional Past Medical History / Comment(s): Had Iron infusions in Apr 2019. Current double earache, on antibiotics, Dr Contreras aware. Hx TIA 2016. Diabetic neuropathy eli feet, migraines, cervical disc disease, DDD, eli tinnitis, arthiritis bilateral shoulders, IBS, HX R arm fx yrs ago, R ovarian cyst, hiatal hernia, UTIs, urinary calculus, pancreatitis x 2, stomach ulcer. Hx cervical cancer. COVID 08/2020 History of Any Multi-Drug Resistant Organisms: C-DIFF Date of last positivie culture/infection: 2015 MDRO Source:: None Past Surgical History: Appendectomy, Bariatric Surgery, Cholecystectomy, Tonsillectomy Additional Past Surgical History / Comment(s): 2010 felix-en-Y, fistula repair 2011, 2011 gastric bypass revision, bowel resection, lap gastrojejunostomy anastamosis revision, EGD and colonoscopy, cone bx-cervical cancer removed with cryo, L fallopian tube removed due to cyst, picc line in and out, CERVICAL FUSION 12/21/16. Past Anesthesia/Blood Transfusion Reactions: Family History of Problems w/ Anesthesia, Motion Sickness, Postoperative Nausea & Vomiting (PONV) Additional Past Anesthesia/Blood Transfusion Reaction / Comment(s): Pt states she has never recieved blood. FAMILY HX PONV. Past Psychological History: Anxiety, Depression Smoking Status: Never smoker Past Alcohol Use History: None Reported Past Drug Use History: None Reported - Past Family History Brother(s) Family Medical History: Deep Vein Thrombosis (DVT) Father Family Medical History: Cancer Additional Family Medical History / Comment(s): Father had poss colon and lung cancer and at age 73yrs. Mother Family Medical History: Coronary Artery Disease (CAD), Diabetes Mellitus, Deep Vein Thrombosis (DVT), Hypertension Additional Family Medical History / Comment(s): Mother is alive and 73 yrs old. General Exam Limitations: no limitations General appearance: alert, in no apparent distress Head exam: Present: atraumatic, normocephalic, normal inspection Eye exam: Present: normal appearance, EOMI. Absent: scleral icterus, periorbital swelling Neck exam: Present: normal inspection Respiratory exam: Present: normal lung sounds bilaterally. Absent: respiratory distress, wheezes, rales, rhonchi, stridor Cardiovascular Exam: Present: regular rate, normal rhythm, normal heart sounds. Absent: systolic murmur, diastolic murmur, rubs, gallop, clicks GI/Abdominal exam: Present: soft, tenderness (Diffuse), diminished bowel sounds. Absent: distended, guarding, rebound, rigid Neurological exam: Present: alert, oriented X3, CN II-XII intact Psychiatric exam: Present: normal affect, normal mood Skin exam: Present: warm, dry, intact, normal color. Absent: rash Course Vital Signs 02/28/22 02/28/22 12:20 17:00 Temperature 98.1 F 99.5 F Pulse Rate 65 86 Respiratory 18 20 Rate Blood Pressure 121/80 O2 Sat by Pulse 98 97 Oximetry Medical Decision Making - Medical Decision Making Patient is a 51-year-old female with chief complaint of abdominal pain, nausea, vomiting. Pain is been ongoing for the last few days and is diffuse across the entire abdomen. On examination there is diffuse tenderness on palpation, hypoactive bowel sounds, abdomen is soft, nondistended. WBC is 12.2 glucose is 136. AST 53 ALT 45 alkaline phosphatase 145, patient has a history of these values being elevated. CT of the abdomen and pelvis shows no acute intra- abdominal process. Patient received Zofran and pain medication. On reexamination patient is still complaining of pain. Patient will be admitted for observation for intractable abdominal pain. I spoke with Dr. Elliott who agreed to admit the patient. I discussed the plan with the patient, she conveyed verbal understanding and agreed to the plan. I discussed the case with my attending Dr. Vega. - Lab Data Result diagrams: 02/28/22 14:37 02/28/22 14:37 Lab Results 02/28/22 02/28/22 02/28/22 Range/Units 12:32 14:37 14:37 WBC 12.2 H (3.8-10.6) k/uL RBC 5.24 (3.80-5.40) m/uL Hgb 12.2 (11.4-16.0) gm/dL Hct 38.5 (34.0-46.0) % MCV 73.4 L D (80.0-100.0) fL MCH 23.3 L (25.0-35.0) pg MCHC 31.8 (31.0-37.0) g/dL RDW 14.7 (11.5-15.5) % Plt Count 452 H (150-450) k/uL MPV 7.5 Neutrophils % 51 % Lymphocytes % 39 % Monocytes % 5 % Eosinophils % 2 % Basophils % 1 % Neutrophils # 6.2 (1.3-7.7) k/uL Lymphocytes # 4.8 (1.0-4.8) k/uL Monocytes # 0.6 (0-1.0) k/uL Eosinophils # 0.3 (0-0.7) k/uL Basophils # 0.1 (0-0.2) k/uL Hypochromasia Moderate Microcytosis Slight PT 10.6 (9.0-12.0) sec INR 1.0 (<1.2) APTT 22.1 (22.0-30.0) sec Sodium (137-145) mmol/L Potassium (3.5-5.1) mmol/L Chloride (98-107) mmol/L Carbon Dioxide (22-30) mmol/L Anion Gap mmol/L BUN (7-17) mg/dL Creatinine (0.52-1.04) mg/dL Est GFR (CKD-EPI)AfAm (>60 ml/min/1.73 sqM) Est GFR (CKD-EPI)NonAf (>60 ml/min/1.73 sqM) Glucose (74-99) mg/dL Plasma Lactic Acid Adam (0.7-2.0) mmol/L Calcium (8.4-10.2) mg/dL Total Bilirubin (0.2-1.3) mg/dL AST (14-36) U/L ALT (4-34) U/L Alkaline Phosphatase (38-126) U/L Troponin I (0.000-0.034) ng/mL Total Protein (6.3-8.2) g/dL Albumin (3.5-5.0) g/dL Amylase (30-110) U/L Lipase (23-300) U/L Urine Color Yellow Urine Appearance Cloudy H (Clear) Urine pH 5.5 (5.0-8.0) Ur Specific Cable 1.027 (1.001-1.035) Urine Protein 1+ H (Negative) Urine Glucose (UA) 2+ H (Negative) Urine Ketones Negative (Negative) Urine Blood Negative (Negative) Urine Nitrite Negative (Negative) Urine Bilirubin Negative (Negative) Urine Urobilinogen <2.0 (<2.0) mg/dL Ur Leukocyte Esterase Moderate H (Negative) Urine RBC 3 (0-5) /hpf Urine WBC 15 H (0-5) /hpf Ur Squamous Epith Cells 32 H (0-4) /hpf Urine Bacteria Occasional H (None) /hpf Hyaline Casts 5 H (0-2) /lpf Urine Mucus Many H (None) /hpf 02/28/22 02/28/22 02/28/22 Range/Units 14:37 14:37 14:37 WBC (3.8-10.6) k/uL RBC (3.80-5.40) m/uL Hgb (11.4-16.0) gm/dL Hct (34.0-46.0) % MCV (80.0-100.0) fL MCH (25.0-35.0) pg MCHC (31.0-37.0) g/dL RDW (11.5-15.5) % Plt Count (150-450) k/uL MPV Neutrophils % % Lymphocytes % % Monocytes % % Eosinophils % % Basophils % % Neutrophils # (1.3-7.7) k/uL Lymphocytes # (1.0-4.8) k/uL Monocytes # (0-1.0) k/uL Eosinophils # (0-0.7) k/uL Basophils # (0-0.2) k/uL Hypochromasia Microcytosis PT (9.0-12.0) sec INR (<1.2) APTT (22.0-30.0) sec Sodium 139 (137-145) mmol/L Potassium 3.9 (3.5-5.1) mmol/L Chloride 101 (98-107) mmol/L Carbon Dioxide 26 (22-30) mmol/L Anion Gap 12 mmol/L BUN 15 (7-17) mg/dL Creatinine 0.70 (0.52-1.04) mg/dL Est GFR (CKD-EPI)AfAm >90 (>60 ml/min/1.73 sqM) Est GFR (CKD-EPI)NonAf >90 (>60 ml/min/1.73 sqM) Glucose 136 H (74-99) mg/dL Plasma Lactic Acid Adam 1.5 (0.7-2.0) mmol/L Calcium 9.8 (8.4-10.2) mg/dL Total Bilirubin 0.8 (0.2-1.3) mg/dL AST 53 H (14-36) U/L ALT 45 H (4-34) U/L Alkaline Phosphatase 145 H (38-126) U/L Troponin I <0.012 (0.000-0.034) ng/mL Total Protein 8.8 H (6.3-8.2) g/dL Albumin 5.0 (3.5-5.0) g/dL Amylase 55 (30-110) U/L Lipase 137 (23-300) U/L Urine Color Urine Appearance (Clear) Urine pH (5.0-8.0) Ur Specific Cable (1.001-1.035) Urine Protein (Negative) Urine Glucose (UA) (Negative) Urine Ketones (Negative) Urine Blood (Negative) Urine Nitrite (Negative) Urine Bilirubin (Negative) Urine Urobilinogen (<2.0) mg/dL Ur Leukocyte Esterase (Negative) Urine RBC (0-5) /hpf Urine WBC (0-5) /hpf Ur Squamous Epith Cells (0-4) /hpf Urine Bacteria (None) /hpf Hyaline Casts (0-2) /lpf Urine Mucus (None) /hpf - EKG Data Rate: normal EKG Comments: Sinus rhythm rate of 73. TX interval 145. QRS duration 79. QTc 408. Left axi s deviation. No acute ST or T-wave changes. Disposition Clinical Impression: Intractable abdominal pain Disposition: ADMITTED IP TO THIS [facility] Condition: Fair Referrals: Macy Knight MD [Primary Care Provider] - 1-2 days Time of Disposition: 17:53 Decision to Admit Reason: Admit from EC Decision Date: 02/28/22 Decision Time: 17:53
[2022-02-28] MEDS ORDERED: KETOROLAC 15 MG/ML 1 ML VIAL IVP PRN (17:54)
[2022-02-28] MEDS ORDERED: NALOXONE 0.4 MG/ML 1 ML VIAL IV PRN (17:54)
[2022-02-28] MEDS: SODIUM CHLORIDE 0.9% 1,000 ML IV SCH (20:06)
[2022-02-28 21:42] LABS: Glucose,Whole Blood 355 mg/dL (70-110)
[2022-02-28] MEDS ORDERED: busPIRone HCl 10 MG TAB PO PRN (22:23)
[2022-02-28] MEDS ORDERED: LORazepam 0.5 MG TAB PO PRN (22:23)
[2022-02-28] MEDS ORDERED: ALBUTEROL NEBULIZED 2.5 MG/3 ML INHALATION PRN (22:23)
[2022-02-28] MEDS ORDERED: SUMAtriptan succinate 50 MG TAB PO PRN (22:23)
[2022-02-28] MEDS: HYDROmorphone 1 MG/ML 1 ML SYRINGE IVP PRN (22:52)
[2022-02-28] MEDS: INSULIN ASPART (NovoLOG) 100 UNIT/ML VIAL SQ SCH (22:53)
[2022-02-28] MEDS: GABAPENTIN 300 MG CAP PO SCH (22:54)
[2022-02-28] MEDS: MIRTAZAPINE 15 MG TAB PO SCH (22:54)
[2022-03-01] MEDS: ONDANSETRON 4 MG/2 ML VIAL IVP PRN ×3 (01:46→21:55)
[2022-03-01] MEDS: HYDROmorphone 1 MG/ML 1 ML SYRINGE IVP PRN ×6 (01:56→23:48)
[2022-03-01] MEDS: SODIUM CHLORIDE 0.9% 1,000 ML IV SCH ×4 (03:40→17:56)
[2022-03-01 07:09] LABS: Glucose,Whole Blood 252 mg/dL (70-110)
[2022-03-01] MEDS: INSULIN ASPART (NovoLOG) 100 UNIT/ML VIAL SQ SCH ×4 (08:18→21:58)
[2022-03-01] MEDS: ATORVASTATIN 80 MG TAB PO SCH (08:19)
[2022-03-01] MEDS: metFORMIN 500 MG TAB PO SCH ×2 (08:19→17:39)
[2022-03-01] MEDS: LORATADINE 10 MG TAB PO SCH (08:19)
[2022-03-01] MEDS: buPROPion XL 300 MG TAB.ER.24H PO SCH (08:19)
[2022-03-01] MEDS: ESCITALOPRAM 20 MG TAB PO SCH (08:19)
[2022-03-01] MEDS: GABAPENTIN 300 MG CAP PO SCH ×3 (08:20→21:55)
[2022-03-01 08:55] LABS: HCT 34.9 % (37.2-46.3); HGB 10.2 g/dL (12.0-15.0); MCH 21.9 pg (27.0-32.0); MCHC 29.2 g/dL (32.0-37.0); MCV 74.9 fL (80.0-97.0); NRBC Per 100 WBC 0 /100 WBCS (0.0-0.0); Platelet Count 411 X 10*3/uL (140-440); RBC 4.66 X 10*6/uL (4.10-5.20); RDW 15.1 % (11.5-14.5); WBC 11.71 X 10*3/uL (4.50-10.00)
[2022-03-01 09:16] LABS: African American GFR (CKD) 98.9 (60.0-200.0); Albumin/Globulin Ratio 1.38 (1.60-3.17); Anion Gap 15.6 mmol/L (10.00-18.00); BUN/Creat Ratio 18.13 Ratio (12.00-20.00); Blood Urea Nitrogen 14.5 mg/dL (9.0-27.0); Calcium 8.9 mg/dL (8.7-10.3); Carbon Dioxide 20.4 mmol/L (20.0-27.5); Globulin 2.9 g/dL (1.6-3.3); Non-African American GFR(CKD) 85.4 (60.0-200.0); Potassium 4.4 mmol/L (3.5-5.5); Total Bilirubin 0.6 mg/dL (0.30-1.20); Total Protein 6.9 g/dL (6.2-8.2)
[2022-03-01 11:30] LABS: Glucose,Whole Blood 240 mg/dL (70-110)
[2022-03-01] MEDS: PROPRANOLOL LA 80 MG CAP.SA.24H PO SCH (13:36)
[2022-03-01 16:38] LABS: Glucose,Whole Blood 102 mg/dL (70-110)
[2022-03-01 17:04] LABS: Basophils # (A) 0.02 X 10*3/uL (0.00-0.10); Basophils % (A) 0.2 %; Eosinophils # (A) 0 X 10*3/uL (0.04-0.35); Eosinophils % (A) 0 %; Immature Grans, Automated 0.3 %; Lymphocytes # (A) 2.09 X 10*3/uL (0.90-5.00); Lymphocytes % (A) 17.8 %; Monocytes # (A) 0.26 X 10*3/uL (0.20-1.00); Monocytes % (A) 2.2 %; Neutrophils % (A) 79.5 %
--- NOTE | 2022-03-01 17:12 | P.HPIM ---
History of Present Illness H&P Date: 03/01/22 Bella Su, is a 51-year-old female who presented to [facility] emergency room with a chief complaint of abdominal pain, nausea vomiting and diarrhea for the last 4 days She was evaluated in the emergency room vital examination on presentation revealed a temperature of 98.1 pulse 65 respiration 18 blood pressure 121/80 pulse ox 98% on room air Laboratory data revealed a white blood count of 12.2 hemoglobin 12.2 platelet count 452 sodium 139 potassium 3.9 chloride 101 CO2 26 BUN 15 creatinine 0.7 Testing in the emergency room revealed computed tomography scan of the abdomen and pelvis done in the emergency room with contrast revealed liver steatosis, otherwise no significant acute abnormality in the abdomen or pelvis. Patient was admitted to medical floor for further evaluation and treatment, patient has history of multiple abdominal surgeries, including Sabino-en-Y gastric bypass with reversal cholecystectomy, appendectomy, and vaginal hysterectomy. Surgical consultation was requested for evaluation. Past Medical History Past Medical History: Asthma, Cancer, CVA/TIA, Diabetes Mellitus, Fibromyalgia, GERD/Reflux, Hearing Disorder / Deafness, Hyperlipidemia, Hypertension, Osteoarthritis (OA), Pneumonia Additional Past Medical History / Comment(s): Had Iron infusions in Apr 2019. Hx TIA 2016. Diabetic neuropathy eli feet, migraines, cervical disc disease, DDD, eli tinnitis, arthiritis bilateral shoulders, IBS, HX R arm fx yrs ago, R ovarian cyst, hiatal hernia, UTIs, urinary calculus, pancreatitis x 2, stomach ulcer. Hx cervical cancer. COVID 08/2020 History of Any Multi-Drug Resistant Organisms: C-DIFF Date of last positivie culture/infection: 2015 MDRO Source:: None Past Surgical History: Appendectomy, Bariatric Surgery, Cholecystectomy, Hysterectomy, Tonsillectomy Additional Past Surgical History / Comment(s): 2010 sabino-en-Y, fistula repair 2011, 2011 gastric bypass revision, bowel resection, lap gastrojejunostomy anastamosis revision, EGD and colonoscopy, cone bx-cervical cancer removed with cryo, L fallopian tube removed due to cyst, picc line in and out, CERVICAL FUSION 12/21/16. Past Anesthesia/Blood Transfusion Reactions: Family History of Problems w/ Anesthesia, Motion Sickness, Postoperative Nausea & Vomiting (PONV) Additional Past Anesthesia/Blood Transfusion Reaction / Comment(s): Pt states she has never recieved blood. FAMILY HX PONV. Past Psychological History: Anxiety, Depression Additional Psychological History / Comment(s): Pt lives with her significant other-common law . Smoking Status: Never smoker Past Alcohol Use History: None Reported Past Drug Use History: None Reported Additional Drug Use History / Comment(s): Pt has a medical marijuana card and tried using it for pain control but it makes her nauseated so she does not use marijuana at all. - Past Family History Brother(s) Family Medical History: Deep Vein Thrombosis (DVT) Father Family Medical History: Cancer Additional Family Medical History / Comment(s): Father had poss colon and lung cancer and at age 73yrs. Mother Family Medical History: Coronary Artery Disease (CAD), Diabetes Mellitus, Deep Vein Thrombosis (DVT), Hypertension Additional Family Medical History / Comment(s): Mother is alive and 73 yrs old. Medications and Allergies Home Medications Medication Instructions Recorded Confirmed Type Escitalopram [Lexapro] 20 mg PO DAILY 01/15/18 02/28/22 History Cetirizine HCl [Zyrtec] 10 mg PO DAILY 06/13/18 02/28/22 History Mirtazapine [Remeron] 15 mg PO HS 10/08/18 02/28/22 History buPROPion HCL [Wellbutrin XL] 300 mg PO DAILY 12/24/18 02/28/22 History LORazepam [Ativan] 0.5 mg PO QID PRN 04/23/19 02/28/22 History Propranolol HCl [Inderal Xl] 80 mg PO DAILY 04/23/19 02/28/22 History Albuterol Nebulized [Ventolin 2.5 mg INHALATION RT-Q6H PRN 02/28/22 02/28/22 History Nebulized] Dulaglutide [Trulicity] 3 mg SQ SA 02/28/22 02/28/22 History Gabapentin 300 mg PO TID 02/28/22 02/28/22 History Insulin Aspart [NovoLOG Flexpen] See Protocol SQ AC-TID 02/28/22 02/28/22 History Rizatriptan Odt [Maxalt Gathering Machine Setter] 10 mg PO BID PRN 02/28/22 02/28/22 History Rosuvastatin Calcium [Crestor] 40 mg PO DAILY 02/28/22 02/28/22 History busPIRone HCL 15 mg PO BID PRN 02/28/22 02/28/22 History metFORMIN HCL ER [Glucophage XR] 1,000 mg PO TID 02/28/22 02/28/22 History Allergies Allergy/AdvReac Type Severity Reaction Status Date / Time oxycodone [From Percocet] Allergy Unknown Swelling; Verified 02/28/22 15:48 (WAS ABLE TO TAKE ALONG WITH BENADRYL) apricot Allergy Dyspnea Verified 02/28/22 15:48 barium sulfate Allergy Anaphylaxis Verified 02/28/22 15:48 [From Readi-Cat] codeine Allergy Anaphylaxis Verified 02/28/22 15:48 fentanyl Allergy Rash/Hives Verified 02/28/22 15:48 hydrocodone [From Lortab] Allergy Swelling Verified 02/28/22 15:48 Iodinated Contrast Media Allergy Anaphylaxis Verified 02/28/22 15:48 iodine Allergy Rash/Hives Verified 02/28/22 15:48 iron Allergy Swelling Verified 02/28/22 15:48 levofloxacin [From Levaquin] Allergy Swelling Verified 02/28/22 15:48 morphine Allergy Rash/Hives, Verified 02/28/22 15:48 Nausea/Vomiting peach Allergy Swelling Verified 02/28/22 15:48 peanut Allergy Swelling Verified 02/28/22 15:48 peanut oil Allergy Anaphylaxis Verified 02/28/22 15:48 shellfish derived [Shellfish] Allergy Anaphylaxis Verified 02/28/22 15:48 strawberry Allergy Anaphylaxis Verified 02/28/22 15:48 sucralfate [From Carafate] Allergy Swelling Verified 02/28/22 15:48 Sulfa (Sulfonamide Allergy Anaphylaxis Verified 02/28/22 15:48 Antibiotics) sulfamethoxazole Allergy Anaphylaxis Verified 02/28/22 15:48 [From Bactrim] tree nut [Nut] Allergy Swelling Verified 02/28/22 15:48 trimethoprim [From Bactrim] Allergy Anaphylaxis Verified 02/28/22 15:48 metronidazole [From Flagyl] AdvReac Unknown Verified 02/28/22 15:48 Physical Exam Vitals: Vital Signs Temp Pulse Pulse Resp BP BP Pulse Ox 03/01/22 07:36 18 03/01/22 07:23 97.4 F L 64 16 93/55 96 03/01/22 02:00 98.4 F 93 17 103/70 98 02/28/22 21:00 80 16 02/28/22 20:54 98.2 F 80 16 108/73 95 02/28/22 20:04 97.0 F L 63 20 93/56 97 02/28/22 17:00 99.5 F 86 20 121/80 97 Intake and Output 02/28/22 03/01/22 03/01/22 22:59 06:59 14:59 Other: Voiding Method Toilet Toilet Toilet # Voids 1 2 # Bowel Movements 0 Weight 88.451 kg In general patient is alert and oriented x 3 in no distress HEENT head normocephalic and atraumatic Neck is supple no JVD no goiter no lymphadenopathy no carotid bruit Chest examination is clear to auscultation no crackles no wheezing Cardiac exam reveals regular heart sounds S1 and S2 no gallops no murmurs Abdomen is soft with mild diffuse tenderness no organomegaly with normal bowel sounds Extremity exam reveals no edema no cyanosis or clubbing Neurological examination reveals no gross focal deficits Results CBC & Chem 7: 03/01/22 03:52 03/01/22 03:52 Labs: Abnormal Lab Results - Last 24 Hours (Table) 02/28/22 02/28/22 02/28/22 Range/Units 14:37 14:37 21:41 WBC 12.2 H (3.8-10.6) k/uL Hgb (12.0-15.0) g/dL Hct (37.2-46.3) % MCV 73.4 L D (80.0-100.0) fL MCH 23.3 L (25.0-35.0) pg MCHC (32.0-37.0) g/dL RDW (11.5-14.5) % Plt Count 452 H (150-450) k/uL Sodium (135-145) mmol/L Glucose 136 H (74-99) mg/dL POC Glucose (mg/dL) 355 H (70-110) mg/dL AST 53 H (14-36) U/L ALT 45 H (4-34) U/L Alkaline Phosphatase 145 H (38-126) U/L Total Protein 8.8 H (6.3-8.2) g/dL Albumin/Globulin Ratio (1.60-3.17) g/dL 03/01/22 03/01/22 03/01/22 Range/Units 03:52 03:52 07:07 WBC 11.71 H (3.8-10.6) k/uL Hgb 10.2 L (12.0-15.0) g/dL Hct 34.9 L (37.2-46.3) % MCV 74.9 L (80.0-100.0) fL MCH 21.9 L (25.0-35.0) pg MCHC 29.2 L (32.0-37.0) g/dL RDW 15.1 H (11.5-14.5) % Plt Count (150-450) k/uL Sodium 133 L (135-145) mmol/L Glucose 268 H (74-99) mg/dL POC Glucose (mg/dL) 252 H (70-110) mg/dL AST 42 H (14-36) U/L ALT (4-34) U/L Alkaline Phosphatase 134 H (38-126) U/L Total Protein (6.3-8.2) g/dL Albumin/Globulin Ratio 1.38 L (1.60-3.17) g/dL 03/01/22 Range/Units 11:29 WBC (3.8-10.6) k/uL Hgb (12.0-15.0) g/dL Hct (37.2-46.3) % MCV (80.0-100.0) fL MCH (25.0-35.0) pg MCHC (32.0-37.0) g/dL RDW (11.5-14.5) % Plt Count (150-450) k/uL Sodium (135-145) mmol/L Glucose (74-99) mg/dL POC Glucose (mg/dL) 240 H (70-110) mg/dL AST (14-36) U/L ALT (4-34) U/L Alkaline Phosphatase (38-126) U/L Total Protein (6.3-8.2) g/dL Albumin/Globulin Ratio (1.60-3.17) g/dL Microbiology - Last 24 Hours (Table) 02/28/22 00:04 Urine Culture - Preliminary Urine,Clean Catch 02/28/22 12:32 Urine Culture - Preliminary Urine,Voided Thrombosis Risk Factor Assmnt - Choose All That Apply Each Factor Represents 1 point: Age 41-60 years, Obesity (BMI >25) Each Risk Factor Represents 3 Points: Family history of DVT/PE Thrombosis Risk Factor Assessment Total Risk Factor Score: 5 Thrombosis Risk Factor Assessment Level: High Risk Assessment and Plan Plan: Abdominal pain, with nausea vomiting and diarrhea, cause is unclear, may be related to adhesions from multiple previous surgeries, surgical consult requested Underlying history of hypertension Underlying history of [id number] diabetes mellitus Underlying history of depression Underlying history of hyperlipidemia Underlying history of migraine headache Underlying history of asthma At this time patient is admitted to medical floor she is maintained on IV fluid, clear liquid diet Recheck labs Consult surgery for further evaluation For DVT prophylaxis subcu Lovenox For GI prophylaxis Protonix Will follow in a.m.
[2022-03-01 17:21] LABS: Elliptocytes 2+
[2022-03-01] MEDS: ENOXAPARIN 40 MG/0.4 ML SYRINGE SQ SCH (17:53)
[2022-03-01] MEDS: PANTOPRAZOLE 40 MG/10 ML VIAL IVP SCH (20:51)
[2022-03-01] MEDS: MIRTAZAPINE 15 MG TAB PO SCH (20:51)
[2022-03-01 21:37] LABS: Glucose,Whole Blood 122 mg/dL (70-110)
[2022-03-02] MEDS: SODIUM CHLORIDE 0.9% 1,000 ML IV SCH ×2 (01:31→18:09)
[2022-03-02] MEDS: HYDROmorphone 1 MG/ML 1 ML SYRINGE IVP PRN ×2 (05:56→18:07)
[2022-03-02 07:19] LABS: Glucose,Whole Blood 121 mg/dL (70-110)
[2022-03-02] MEDS: INSULIN ASPART (NovoLOG) 100 UNIT/ML VIAL SQ SCH ×3 (08:00→18:08)
[2022-03-02] MEDS: LORATADINE 10 MG TAB PO SCH (08:19)
[2022-03-02] MEDS: PANTOPRAZOLE 40 MG/10 ML VIAL IVP SCH ×2 (08:19→18:09)
[2022-03-02] MEDS: ENOXAPARIN 40 MG/0.4 ML SYRINGE SQ SCH (08:19)
[2022-03-02] MEDS: metFORMIN 500 MG TAB PO SCH ×2 (08:19→18:09)
[2022-03-02] MEDS: ESCITALOPRAM 20 MG TAB PO SCH (08:19)
[2022-03-02] MEDS: buPROPion XL 300 MG TAB.ER.24H PO SCH (08:19)
[2022-03-02] MEDS: GABAPENTIN 300 MG CAP PO SCH ×2 (08:19→17:07)
[2022-03-02] MEDS: ATORVASTATIN 80 MG TAB PO SCH (08:19)
[2022-03-02] MEDS: ONDANSETRON 4 MG/2 ML VIAL IVP PRN ×2 (08:20→18:06)
--- NOTE | 2022-03-02 10:51 | P.GSCN ---
History of Present Illness Consult date: 03/02/22 History of present illness: CHIEF COMPLAINT: Nausea, vomiting and diarrhea HISTORY OF PRESENT ILLNESS: This is a 51-year-old female presents to the hospital due to 6 day history of nausea, vomiting and diarrhea. Patient reports that she was having about 8 watery stools daily. She reports no blood in the stools. She also reports having chills and sweats. She had low-grade temp of 100.4 at home. She reports diffuse pain mostly on the left side of the abdomen and radiates across to the lower right abdomen. She describes the pain as cramping. Her last emesis an episode of diarrhea was yesterday around 10:00. She did tolerate clear liquids last night. She denies any urinary symptoms. She does report recent antibiotic use. Stool for C. diff was negative. White count elevated at 12. Patient has been hypotensive. She is receiving IV fluids and antibiotics. Patient has a history of lysis of adhesions, Sabino-en-Y, cholecystectomy and appendectomy. She did have elevated white count on admission. Computed tomography scan of the abdomen showed no acute abnormality. Patient's last colonoscopy was in May 2019 which had shown internal hemorrhoids. Patient also had EGD at that time had shown gastrojejunal stricture and required dilation. Surgical service has been placed on consult for abdominal pain. PAST MEDICAL HISTORY: c.diff colitis, diabetes mellitus, TIA, asthma PAST SURGICAL HISTORY: See list. MEDICATIONS: See list. ALLERGIES: See list. SOCIAL HISTORY: No illicit drug use. REVIEW OF SYSTEMS: CONSTITUTIONAL: Denies fever or chills. HEENT: Denies blurred vision, vision changes, or eye pain. Denies hemoptysis CARDIOVASCULAR: Denies chest pain or pressure. RESPIRATORY: No shortness of breath. GASTROINTESTINAL: See HPI for pertinent findings HEMATOLOGIC: Denies bleeding disorders. GENITOURINARY: Denies any blood in urine or increased urinary frequency. SKIN: Denies pruitis. Denies rash. PHYSICAL EXAM: VITAL SIGNS: Reviewed GENERAL: Well-developed in no acute distress. HEENT: No sclera icterus. Extraocular movements grossly intact. Moist buccal mucosa. Head is atraumatic, normocephalic. No nasal drainage. ABDOMEN: Soft. Nondistended. diffuse tenderness NEUROLOGIC: Alert and oriented. Cranial nerves II through XII grossly intact. LABORATORY DATA: WBC 12.2 and 11.71 hgb 10.2 platelets 411 Na 133 potassium 4.4 creatinine 0.8 Glucose 121 Lactic acid 1.5 AST 42 ALT 39 alk phos 134 total bilirubin 0.6 lipase 137 C. diff negative Urine culture pending IMAGING: Computed tomography scan abdomen and pelvis postop changes, correlate with the patient's surgical history. Hepatic steatosis. ASSESSMENT: 1. Abdominal pain with nausea, vomiting and diarrhea. Possibly related to a gastroenteritis. Patient does have elevated white count and reports low-grade fever at home. 2. History of Sabino-en-Y 3. History of multiple abdominal surgeries including lysis of adhesions, cholecystectomy and appendectomy PLAN: -Resume clear liquid diet -Continue supportive care -Continue IV fluids -Continue pain medication and antiemetics -Further recommendations forthcoming per surgeon Thank you for this consultation Physician Business Analysis Professional note has been reviewed by physician. Signing provider agrees with the documented findings, assessment, and plan of care. I have personally seen and examined the patient, reviewed the CUSTOMER CARE ASSISTANT /PAs history, exam and MDM and agree with the assessment and plan as written. Based on total visit time, I have performed more than 50% of the visit. As above: Patient with upper abdominal pain that radiates across the abdomen. Worse in the right upper quadrant. Patient's CAT scan shows no definite abnormalities. Patient says his pain is been going on since last July. She states that she has seen GI and her bariatric surgeon in the past. She does have intermittent episodes of vomiting and diarrhea. CAT scan reviewed. No abnormalities to explain her symptoms. No further surgical intervention planned. May resume diet. Past Medical History Past Medical History: Asthma, Cancer, CVA/TIA, Diabetes Mellitus, Fibromyalgia, GERD/Reflux, Hearing Disorder / Deafness, Hyperlipidemia, Hypertension, Osteoarthritis (OA), Pneumonia Additional Past Medical History / Comment(s): Had Iron infusions in Apr 2019. Hx TIA 2015. Diabetic neuropathy eli feet, migraines, cervical disc disease, DDD, eli tinnitis, arthiritis bilateral shoulders, IBS, HX R arm fx yrs ago, R ovarian cyst, hiatal hernia, UTIs, urinary calculus, pancreatitis x 2, stomach ulcer. Hx cervical cancer. COVID 08/2020 History of Any Multi-Drug Resistant Organisms: C-DIFF Year Discovered:: 2016 MDRO Source:: None Past Surgical History: Appendectomy, Bariatric Surgery, Cholecystectomy, Hysterectomy, Tonsillectomy Additional Past Surgical History / Comment(s): 2010 sabino-en-Y, fistula repair 2011, 2011 gastric bypass revision, bowel resection, lap gastrojejunostomy anastamosis revision, EGD and colonoscopy, cone bx-cervical cancer removed with cryo, L fallopian tube removed due to cyst, picc line in and out, CERVICAL FUSION 12/21/16. Past Anesthesia/Blood Transfusion Reactions: Family History of Problems w/ Anesthesia, Motion Sickness, Postoperative Nausea & Vomiting (PONV) Additional Past Anesthesia/Blood Transfusion Reaction / Comm: Pt states she has never recieved blood. FAMILY HX PONV. Past Psychological History: Anxiety, Depression Additional Psychological History / Comment(s): Pt lives with her significant other-common law . Smoking Status: Never smoker Past Alcohol Use History: None Reported Past Drug Use History: None Reported Additional Drug Use History / Comment(s): Pt has a medical marijuana card and tried using it for pain control but it makes her nauseated so she does not use marijuana at all. - Past Family History Brother(s) Family Medical History: Deep Vein Thrombosis (DVT) Father Family Medical History: Cancer Additional Family Medical History / Comment(s): Father had poss colon and lung cancer and at age 73yrs. Mother Family Medical History: Coronary Artery Disease (CAD), Diabetes Mellitus, Deep Vein Thrombosis (DVT), Hypertension Additional Family Medical History / Comment(s): Mother is alive and 73 yrs old. Medications and Allergies Home Medications Medication Instructions Recorded Confirmed Type Escitalopram [Lexapro] 20 mg PO DAILY 01/15/18 02/28/22 History Cetirizine HCl [Zyrtec] 10 mg PO DAILY 06/13/18 02/28/22 History Mirtazapine [Remeron] 15 mg PO HS 10/08/18 02/28/22 History buPROPion HCL [Wellbutrin XL] 300 mg PO DAILY 12/24/18 02/28/22 History LORazepam [Ativan] 0.5 mg PO QID PRN 04/23/19 02/28/22 History Propranolol HCl [Inderal Xl] 80 mg PO DAILY 04/23/19 02/28/22 History Albuterol Nebulized [Ventolin 2.5 mg INHALATION RT-Q6H PRN 02/28/22 02/28/22 History Nebulized] Dulaglutide [Trulicity] 3 mg SQ SA 02/28/22 02/28/22 History Gabapentin 300 mg PO TID 02/28/22 02/28/22 History Insulin Aspart [NovoLOG Flexpen] See Protocol SQ AC-TID 02/28/22 02/28/22 History Rizatriptan Odt [Maxalt Vending Machine Refiller] 10 mg PO BID PRN 02/28/22 02/28/22 History Rosuvastatin Calcium [Crestor] 40 mg PO DAILY 02/28/22 02/28/22 History busPIRone HCL 15 mg PO BID PRN 02/28/22 02/28/22 History metFORMIN HCL ER [Glucophage XR] 1,000 mg PO TID 02/28/22 02/28/22 History Allergies Allergy/AdvReac Type Severity Reaction Status Date / Time oxycodone [From Percocet] Allergy Unknown Swelling; Verified 02/28/22 15:48 (WAS ABLE TO TAKE ALONG WITH BENADRYL) apricot Allergy Dyspnea Verified 02/28/22 15:48 barium sulfate Allergy Anaphylaxis Verified 02/28/22 15:48 [From Readi-Cat] codeine Allergy Anaphylaxis Verified 02/28/22 15:48 fentanyl Allergy Rash/Hives Verified 02/28/22 15:48 hydrocodone [From Lortab] Allergy Swelling Verified 02/28/22 15:48 Iodinated Contrast Media Allergy Anaphylaxis Verified 02/28/22 15:48 iodine Allergy Rash/Hives Verified 02/28/22 15:48 iron Allergy Swelling Verified 02/28/22 15:48 levofloxacin [From Levaquin] Allergy Swelling Verified 02/28/22 15:48 morphine Allergy Rash/Hives, Verified 02/28/22 15:48 Nausea/Vomiting peach Allergy Swelling Verified 02/28/22 15:48 peanut Allergy Swelling Verified 02/28/22 15:48 peanut oil Allergy Anaphylaxis Verified 02/28/22 15:48 shellfish derived [Shellfish] Allergy Anaphylaxis Verified 02/28/22 15:48 strawberry Allergy Anaphylaxis Verified 02/28/22 15:48 sucralfate [From Carafate] Allergy Swelling Verified 02/28/22 15:48 Sulfa (Sulfonamide Allergy Anaphylaxis Verified 02/28/22 15:48 Antibiotics) sulfamethoxazole Allergy Anaphylaxis Verified 02/28/22 15:48 [From Bactrim] tree nut [Nut] Allergy Swelling Verified 02/28/22 15:48 trimethoprim [From Bactrim] Allergy Anaphylaxis Verified 02/28/22 15:48 metronidazole [From Flagyl] AdvReac Unknown Verified 02/28/22 15:48 Surgical - Exam Vital Signs Temp Pulse Resp Pulse Ox 98.1 F 65 18 98 02/28/22 12:20 02/28/22 12:20 02/28/22 12:20 02/28/22 12:20 Results - Labs 03/01/22 03:52 03/01/22 03:52 Abnormal Lab Results - Last 24 Hours (Table) 03/01/22 03/01/22 03/01/22 Range/Units 03:52 11:29 21:36 Neutrophils # 9.30 H (1.80-7.70) X 10*3/uL Eosinophils # 0 L (0.04-0.35) X 10*3/uL POC Glucose (mg/dL) 240 H 122 H (70-110) mg/dL 03/02/22 Range/Units 07:18 Neutrophils # (1.80-7.70) X 10*3/uL Eosinophils # (0.04-0.35) X 10*3/uL POC Glucose (mg/dL) 121 H (70-110) mg/dL Microbiology - Last 24 Hours (Table) 02/28/22 00:04 Urine Culture - Final Urine,Clean Catch 02/28/22 12:32 Urine Culture - Final Urine,Voided
[2022-03-02 11:00] VITALS: RESP 18
[2022-03-02 12:15] LABS: Glucose,Whole Blood 109 mg/dL (70-110)
[2022-03-02] MEDS: PROPRANOLOL LA 80 MG CAP.SA.24H PO SCH (14:27)
[2022-03-02 16:16] VITALS: BP 97/65; PULSE 80; TEMP 98.3
[2022-03-02 17:32] LABS: Glucose,Whole Blood 149 mg/dL (70-110)
== END 2022-03-02 20:30 | disposition home or self-care (01) ==
LOC: EC 12:06 → 6NMEDSUR 18:23
PROVIDERS: ADMIT Internal Medicine; ATTEND Internal Medicine
DX: R10.10 Upper abdominal pain, unspecified (principal); R11.2 Nausea with vomiting, unspecified; R19.7 Diarrhea, unspecified; R50.9 Fever, unspecified; I95.9 Hypotension, unspecified; D72.829 Elevated white blood cell count, unspecified; J45.909 Unspecified asthma, uncomplicated; I10 Essential (primary) hypertension; E78.5 Hyperlipidemia, unspecified; M79.7 Fibromyalgia; K21.9 Gastro-esophageal reflux disease without esophagitis; H91.90 Unspecified hearing loss, unspecified ear; E11.40 Type 2 diabetes mellitus with diabetic neuropathy, unspecified; G43.909 Migraine, unspecified, not intractable, without status migrainosus; K44.9 Diaphragmatic hernia without obstruction or gangrene; K58.9 Irritable bowel syndrome, unspecified; N83.201 Unspecified ovarian cyst, right side; M50.90 Cervical disc disorder, unspecified, unspecified cervical region; M19.012 Primary osteoarthritis, left shoulder; M19.011 Primary osteoarthritis, right shoulder; F32.A Depression, unspecified; F41.9 Anxiety disorder, unspecified; E66.9 Obesity, unspecified; Z68.29 Body mass index [BMI] 29.0-29.9, adult; K76.0 Fatty (change of) liver, not elsewhere classified; Z86.16 Personal history of COVID-19; Z71.9 Counseling, unspecified; Z87.440 Personal history of urinary (tract) infections; Z87.01 Personal history of pneumonia (recurrent); Z87.11 Personal history of peptic ulcer disease; Z86.73 Personal history of transient ischemic attack (TIA), and cerebral infarction without residual deficits; Z85.41 Personal history of malignant neoplasm of cervix uteri; Z87.442 Personal history of urinary calculi; Z90.49 Acquired absence of other specified parts of digestive tract; Z90.710 Acquired absence of both cervix and uterus; Z98.84 Bariatric surgery status; Z79.899 Other long term (current) drug therapy; Z79.84 Long term (current) use of oral hypoglycemic drugs; Z79.4 Long term (current) use of insulin; Z88.1 Allergy status to other antibiotic agents; Z91.041 Radiographic dye allergy status; Z88.5 Allergy status to narcotic agent; Z91.018 Allergy to other foods; Z91.010 Allergy to peanuts; Z91.013 Allergy to seafood; Z88.2 Allergy status to sulfonamides; Z91.048 Other nonmedicinal substance allergy status; Z83.3 Family history of diabetes mellitus; Z82.49 Family history of ischemic heart disease and other diseases of the circulatory system
CPT/HCPCS: 96376 ×4; 96361 ×4; 96365; 96372 ×2; 96375 ×2; 99285; 36415; 93005; 80053 ×2; 82150; 83605; 83690; 84484; 85025 ×2; 85610; 85730; 81001; 87324; 87086; 74177; G0378 ×2; J1200; J2930; J2405 ×3; J1650 ×2; J0696 ×2; J1170 ×3; J1885; C9113; Q9967

== ENCOUNTER → 2023-01-18 | Outpatient (CLI) | payer OTHER ==
--- NOTE | 2023-01-19 06:46 | MM ---
Reason for Exam: Screening (asymptomatic). Last mammogram was performed 2 year(s) and 0 month(s) ago. Patient History: Menarche at age 12. Patient has no children. Left ovary removed at age 50. Right ovary removed at age 50. Hysterectomy at age 50. Postmenopausal. Other cancer, age 23. Currently using Unspecified Hormone, starting at age 40. Maternal grandmother had breast cancer. Risk Values: Shala 5 year model risk: 1.2%. NCI Lifetime model risk: 9.6%. Prior Study Comparison: 01/09/2018 Bilateral Screening Mammogram, [facility]. 01/10/2019 Bilateral Screening Mammogram, [facility]. 01/21/2021 Bilateral Screening Mammogram, [facility]. Tissue Density: The breast tissue is almost entirely fat. Findings: Analyzed By CAD. There are some small scattered benign-appearing round calcifications bilaterally redemonstrated. No suspicious new mass or distortion in either breast. There is no suspicious new group of microcalcifications in either breast. Overall Assessment: Benign, BI-RAD 2 Management: Screening Mammogram of both breasts in 1 year. . Patient should continue monthly self-breast exams. A clinical breast exam by your physician is recommended on an annual basis. This exam should not preclude additional follow-up of suspicious palpable abnormalities. Note on Shala scores and lifetime risk: 1. A Shala score greater than 3% is considered moderate risk. If this is the case, consider specialist referral to assess eligibility for a risk reducing agent. 2. If overall lifetime risk for the development of breast cancer is 20% or higher, the patient may qualify for future screening with alternating mammogram and breast MRI. Electronically signed and approved by: Raffy Erickson M.D.
== END | disposition home or self-care (01) ==
LOC: RADMAMWWP 16:31
PROVIDERS: ATTEND Family Medicine
DX: Z12.31 Encounter for screening mammogram for malignant neoplasm of breast (principal); Z78.0 Asymptomatic menopausal state; Z80.3 Family history of malignant neoplasm of breast
CPT/HCPCS: 77063; 77067

== ENCOUNTER → 2023-02-14 | Outpatient (CLI) | payer OTHER | END | disposition home or self-care (01) | LOC: LABWHC1 15:52 | PROVIDERS: ATTEND Surgery Plastic and Reconstructive Surgery | DX: Z53.9 Procedure and treatment not carried out, unspecified reason (principal) ==

== ENCOUNTER 2023-02-21 06:43 | Day surgery (SDC) | payer OTHER ==
[2023-02-16 08:31] VITALS: BMI 31.3
[2023-02-21 07:14] VITALS: TEMP 97.4
[2023-02-21] MEDS ORDERED: LACTATED RINGERS 1,000 ML IV ONE (07:27)
[2023-02-21 07:30] LABS: Glucose,Whole Blood 180 mg/dL (70-110)
[2023-02-21] MEDS ORDERED: PROPOFOL 10 MG/ML 20 ML VIAL IV ONE (07:33)
--- NOTE | 2023-02-21 07:36 | P.GSHP ---
History of Present Illness H&P Date: 02/21/23 CHIEF COMPLAINT: GERD HISTORY OF PRESENT ILLNESS: The patient is a 52-year-old female who presents reports gastroesophageal reflux disease and dysphagia. Upper endoscopy was offered for further evaluation and management. PAST MEDICAL HISTORY: Please see list. PAST SURGICAL HISTORY: Please see list. MEDICATIONS: Please see list. ALLERGIES: Please see list. SOCIAL HISTORY: No illicit drug use FAMILY HISTORY: No reports of Crohn disease or ulcerative colitis. REVIEW OF ORGAN SYSTEMS: CONSTITUTIONAL: No reports of fevers or chills. GI: Denies any blood in stools or constipation. PHYSICAL EXAM: VITAL SIGNS: Stable GENERAL: Well-developed and pleasant in no acute distress. HEENT: No scleral icterus. Extraocular movements grossly intact. Moist buccal mucosa. NECK: Supple without lymphadenopathy. CHEST: Unlabored respirations. Equal bilateral excursions. CARDIOVASCULAR: Regular rate and rhythm. Distal 2+ pulses. ABDOMEN: Soft, nondistended. MUSCULOSKELETAL: No clubbing, cyanosis, or edema. ASSESSMENT: 1. Gastroesophageal reflux disease 2. Dysphagia PLAN: 1. Recommend proceeding with an upper endoscopy Past Medical History Past Medical History: Asthma, Cancer, CVA/TIA, Diabetes Mellitus, Fibromyalgia, GERD/Reflux, Hyperlipidemia, Osteoarthritis (OA), Pneumonia Additional Past Medical History / Comment(s): Had Iron infusions in Apr 2019. Hx TIA 2016. Diabetic neuropathy eli feet, migraines, cervical disc disease, DDD, eli tinnitis, arthiritis bilateral shoulders, IBS, HX R arm fx yrs ago, R ovarian cyst, hiatal hernia, UTIs, urinary calculus, pancreatitis x 2, stomach ulcer. Hx cervical cancer. COVID 08/2020 History of Any Multi-Drug Resistant Organisms: C-DIFF Date of last positivie culture/infection: 2016 MDRO Source:: None Past Surgical History: Appendectomy, Bariatric Surgery, Cholecystectomy, Hysterectomy, Tonsillectomy Additional Past Surgical History / Comment(s): 2011 felix-en-Y, fistula repair 2011, 2011 gastric bypass revision, bowel resection, lap gastrojejunostomy anastamosis revision, EGD and colonoscopy, cone bx-cervical cancer removed with cryo, L fallopian tube removed due to cyst, picc line in and out, CERVICAL FUSION 12/21/16. Past Anesthesia/Blood Transfusion Reactions: Family History of Problems w/ Anesthesia, Motion Sickness, Postoperative Nausea & Vomiting (PONV) Additional Past Anesthesia/Blood Transfusion Reaction / Comment(s): Pt states she has never recieved blood. FAMILY HX PONV. Past Psychological History: Anxiety, Depression Additional Psychological History / Comment(s): Pt lives with her significant other-common law . Smoking Status: Never smoker Past Alcohol Use History: None Reported Past Drug Use History: None Reported Additional Drug Use History / Comment(s): Pt has a medical marijuana card and tried using it for pain control but it makes her nauseated so she does not use marijuana at all. - Past Family History Brother(s) Family Medical History: Deep Vein Thrombosis (DVT) Father Family Medical History: Cancer, Deep Vein Thrombosis (DVT), Pulmonary Embolus Additional Family Medical History / Comment(s): Father had poss colon and lung cancer and at age 73yrs. Mother Family Medical History: Coronary Artery Disease (CAD), Diabetes Mellitus, Deep Vein Thrombosis (DVT), Hypertension, Pulmonary Embolus Additional Family Medical History / Comment(s): Mother is alive and 73 yrs old. Medications and Allergies Home Medications Medication Instructions Recorded Confirmed Type Cetirizine HCl [Zyrtec] 10 mg PO DAILY 06/13/18 02/16/23 History Mirtazapine [Remeron] 15 mg PO HS 10/08/18 02/16/23 History buPROPion HCL [Wellbutrin XL] 300 mg PO DAILY 12/24/18 02/16/23 History LORazepam [Ativan] 0.5 mg PO QID PRN 04/23/19 02/16/23 History Propranolol HCl [Inderal Xl] 80 mg PO DAILY PRN 04/23/19 02/16/23 History Dulaglutide [Trulicity] 1.5 mg SQ WEEKLY 02/28/22 02/16/23 History Gabapentin 300 mg PO TID 02/28/22 02/16/23 History Insulin Aspart [NovoLOG Flexpen] See Protocol SQ AC-TID 02/28/22 02/16/23 History Rizatriptan Odt [Maxalt ROTARY DRYER OPERATOR] 10 mg PO BID PRN 02/28/22 02/16/23 History Rosuvastatin Calcium [Crestor] 40 mg PO DAILY 02/28/22 02/16/23 History metFORMIN HCL ER [Glucophage XR] 1,000 mg PO TID 02/28/22 02/16/23 History Furosemide [Lasix] 20 mg PO DAILY 02/16/23 02/16/23 History Ondansetron [Zofran] 4 mg PO Q8HR 02/16/23 02/16/23 History Pioglitazone [Actos] 30 mg PO DAILY 02/16/23 02/16/23 History Tamsulosin [Flomax] 0.4 mg PO HS 02/16/23 02/16/23 History Zolpidem [Ambien] 10 mg PO HS PRN 02/16/23 02/16/23 History Allergies Allergy/AdvReac Type Severity Reaction Status Date / Time oxycodone [From Percocet] Allergy Unknown Swelling; Verified 02/21/23 07:14 (WAS ABLE TO TAKE ALONG WITH BENADRYL) apricot Allergy Dyspnea Verified 02/21/23 07:14 barium sulfate Allergy Anaphylaxis Verified 02/21/23 07:14 [From Readi-Cat] codeine Allergy Anaphylaxis Verified 02/21/23 07:14 fentanyl Allergy Rash/Hives Verified 02/21/23 07:14 hydrocodone [From Lortab] Allergy Swelling Verified 02/21/23 07:14 Iodinated Contrast Media Allergy Anaphylaxis Verified 02/21/23 07:14 iodine Allergy Rash/Hives Verified 02/21/23 07:14 iron Allergy Swelling Verified 02/21/23 07:14 levofloxacin [From Levaquin] Allergy Swelling Verified 02/21/23 07:14 morphine Allergy Rash/Hives, Verified 02/21/23 07:14 Nausea/Vomiting peach Allergy Swelling Verified 02/21/23 07:14 peanut Allergy Swelling Verified 02/21/23 07:14 peanut oil Allergy Anaphylaxis Verified 02/21/23 07:14 shellfish derived [Shellfish] Allergy Anaphylaxis Verified 02/21/23 07:14 strawberry Allergy Anaphylaxis Verified 02/21/23 07:14 sucralfate [From Carafate] Allergy Swelling Verified 02/21/23 07:14 Sulfa (Sulfonamide Allergy Anaphylaxis Verified 02/21/23 07:14 Antibiotics) sulfamethoxazole Allergy Anaphylaxis Verified 02/21/23 07:14 [From Bactrim] tree nut [Nut] Allergy Swelling Verified 02/21/23 07:14 trimethoprim [From Bactrim] Allergy Anaphylaxis Verified 02/21/23 07:14 metronidazole [From Flagyl] AdvReac Unknown Verified 02/21/23 07:14 Surgical - Exam Vital Signs Temp Pulse Resp BP Pulse Ox 97.4 F L 88 16 117/74 97 02/21/23 07:12 02/21/23 07:12 02/21/23 07:12 02/21/23 07:12 02/21/23 07:12 Results - Labs Abnormal Lab Results - Last 24 Hours (Table) 02/21/23 Range/Units 07:26 POC Glucose (mg/dL) 180 H (70-110) mg/dL
[2023-02-21 08:21] VITALS: BP 121/86; PULSE 83; RESP 20
--- NOTE | 2023-02-21 08:29 | P.PCN ---
Date of Procedure: 02/21/23 Description of Procedure: PREOPERATIVE DIAGNOSIS: Dysphagia. Nausea with vomiting. Atypical chest pain POSTOPERATIVE DIAGNOSIS: Dysphagia. Upper esophageal stenosis Presbyesophagus OPERATION: Esophagogastrojejunoscopy with rigid dilator, 51-[place] SURGEON: Osiris Contreras MD ANESTHESIA: MAC. INDICATIONS: The patient is a 52-year-old female who presents with a history of dysphagia, including nausea and vomiting and history of gastric bypass a sleeve conversion. Benefits and risks of the procedure were described. Informed consent was obtained. DESCRIPTION: The patient was brought into the endoscopy suite and laid in the left lateral decubitus position. After a timeout was confirmed, the procedure was initiated. An Olympus gastroscope was passed along the posterior oropharynx down to the distal esophagus where the squamocolumnar junction was unremarkable. Moderate tertiary contractions consistent with presbyesophagus was found. The gastric pouch was entered with multiple anastomoses identify. A gastrojejunal stricture of 18 mm was found as the adult gastroscope was 9.5 mm in size. Attention was brought to the upper esophageal stenosis. The bite block was removed and mouth was opened with fingers. A rigid dilator, 51 [place] was placed over a guidewire to 40 cm from the incisors and left for 2 minutes after exchanging the scope. Final insufflation from 15 to 20 mm was performed with a total of 2 minutes. The scope was advanced up to 50 cm from the incisors into the Sabino limb. The mucosa of the gastrojejunal anastomosis was intact. No chronic gastrojejunal marginal ulcer was encountered. No full-thickness injury was encountered. The GI tract was desufflated. The patient tolerated the procedure well. FINDINGS: Squamocolumnar junction unremarkable at 37 cm. Unremarkable anastomoses at 18 mm Moderate to severe tertiary contractions for presbyesophagus Rigid dilation of upper esophageal sphincter, 51-[place] Island[place] No chronic gastrojejunal ulceration encountered. RECOMMENDATIONS: Upper endoscopy as needed. Plan - Discharge Summary Discharge Rx Participant: No New Discharge Prescriptions: Continue Cetirizine HCl [Zyrtec] 10 mg PO DAILY Mirtazapine [Remeron] 15 mg PO HS buPROPion HCL [Wellbutrin XL] 300 mg PO DAILY Propranolol HCl [Inderal Xl] 80 mg PO DAILY PRN PRN Reason: Pain LORazepam [Ativan] 0.5 mg PO QID PRN PRN Reason: Anxiety Rosuvastatin Calcium [Crestor] 40 mg PO DAILY Insulin Aspart [NovoLOG Flexpen] See Protocol SQ AC-TID metFORMIN HCL ER [Glucophage XR] 1,000 mg PO TID Dulaglutide [Trulicity] 1.5 mg SQ WEEKLY Rizatriptan Odt [Maxalt BOILERMAKING SUPERVISOR] 10 mg PO BID PRN PRN Reason: Migraine Headache Tamsulosin [Flomax] 0.4 mg PO HS Furosemide [Lasix] 20 mg PO DAILY Gabapentin 300 mg PO TID Zolpidem [Ambien] 10 mg PO HS PRN PRN Reason: Insomnia Pioglitazone [Actos] 30 mg PO DAILY Ondansetron [Zofran] 4 mg PO Q8HR Discharge Medication List Cetirizine HCl [Zyrtec] 10 mg PO DAILY 06/13/18 [History] Mirtazapine [Remeron] 15 mg PO HS 10/08/18 [History] buPROPion HCL [Wellbutrin XL] 300 mg PO DAILY 12/24/18 [History] LORazepam [Ativan] 0.5 mg PO QID PRN 04/23/19 [History] Propranolol HCl [Inderal Xl] 80 mg PO DAILY PRN 04/23/19 [History] Dulaglutide [Trulicity] 1.5 mg SQ WEEKLY 02/28/22 [History] Gabapentin 300 mg PO TID 02/28/22 [History] Insulin Aspart [NovoLOG Flexpen] See Protocol SQ AC-TID 02/28/22 [History] Rizatriptan Odt [Maxalt BOILERMAKING SUPERVISOR] 10 mg PO BID PRN 02/28/22 [History] Rosuvastatin Calcium [Crestor] 40 mg PO DAILY 02/28/22 [History] metFORMIN HCL ER [Glucophage XR] 1,000 mg PO TID 02/28/22 [History] Furosemide [Lasix] 20 mg PO DAILY 02/16/23 [History] Ondansetron [Zofran] 4 mg PO Q8HR 02/16/23 [History] Pioglitazone [Actos] 30 mg PO DAILY 02/16/23 [History] Tamsulosin [Flomax] 0.4 mg PO HS 02/16/23 [History] Zolpidem [Ambien] 10 mg PO HS PRN 02/16/23 [History] [place]s[place] Patient Instructions/Handouts: Esophageal Dilation (GEN), GERD (Gastroesophageal Reflux Disease) (DC) Activity/Diet/Wound Care/Special Instructions: Use warm beverages Discharge Disposition: HOME SELF-CARE
[2023-02-21 08:31] LABS: Glucose,Whole Blood 146 mg/dL (70-110)
== END 2023-02-21 08:40 | disposition home or self-care (01) ==
LOC: ORWHC2ENDO 06:43
PROVIDERS: ATTEND Surgery Plastic and Reconstructive Surgery
DX: K91.89 Other postprocedural complications and disorders of digestive system (principal); K22.2 Esophageal obstruction; K21.9 Gastro-esophageal reflux disease without esophagitis; J45.909 Unspecified asthma, uncomplicated; E11.9 Type 2 diabetes mellitus without complications; E78.5 Hyperlipidemia, unspecified; Z86.73 Personal history of transient ischemic attack (TIA), and cerebral infarction without residual deficits; M79.7 Fibromyalgia; G43.909 Migraine, unspecified, not intractable, without status migrainosus; Z87.19 Personal history of other diseases of the digestive system; Z86.16 Personal history of COVID-19; Z85.51 Personal history of malignant neoplasm of bladder; Z87.11 Personal history of peptic ulcer disease; M19.90 Unspecified osteoarthritis, unspecified site; Z98.84 Bariatric surgery status; Z90.49 Acquired absence of other specified parts of digestive tract; Z98.0 Intestinal bypass and anastomosis status; F41.9 Anxiety disorder, unspecified; F32.A Depression, unspecified; F12.90 Cannabis use, unspecified, uncomplicated; Z79.85 Long-term (current) use of injectable non-insulin antidiabetic drugs; Z79.4 Long term (current) use of insulin; Z79.899 Other long term (current) drug therapy; Z79.84 Long term (current) use of oral hypoglycemic drugs; Z88.5 Allergy status to narcotic agent; Z88.8 Allergy status to other drugs, medicaments and biological substances; Z91.048 Other nonmedicinal substance allergy status; Z88.1 Allergy status to other antibiotic agents; Z88.6 Allergy status to analgesic agent; Z91.010 Allergy to peanuts; Z91.013 Allergy to seafood; Z88.2 Allergy status to sulfonamides
CPT/HCPCS: 43248; J2704; 43249

== ENCOUNTER 2023-02-28 17:52 | Observation (INO) | payer OTHER ==
[2023-02-28] MEDS ORDERED: SODIUM CHLORIDE 0.9% 500 ML 500 ML IV STA (19:14)
[2023-02-28] MEDS ORDERED: SODIUM CHLORIDE 0.9% 1,000 ML IV STA (19:14)
[2023-02-28] MEDS ORDERED: diphenhydrAMINE 50 MG/ML 1 ML VIAL IVP STA (19:16)
[2023-02-28] MEDS ORDERED: FAMOTIDINE 20 MG/2 ML VIAL IV STA (19:17)
[2023-02-28] MEDS ORDERED: methylPREDNISolone SOD SUCCI 125 MG/2 ML VIAL IV STA (19:17)
[2023-02-28 21:03] LABS: Anisocytosis Slight; HCT 41.4 % (34.0-46.0); HGB 12.8 gm/dL (11.4-16.0); Hypochromasia Marked; MCH 22.7 pg (25.0-35.0); MCV 73.1 fL (80.0-100.0); Mean Platelet Volume 7.9; Microcytosis Moderate; Platelet Count 423 k/uL (150-450); RBC 5.66 m/uL (3.80-5.40); RDW 16.5 % (11.5-15.5); WBC 14.9 k/uL (3.8-10.6)
[2023-02-28 21:14] LABS: ALT 35 U/L (4-34); AST 47 U/L (14-36); African American GFR (CKD) >90 (>60 ml/min/1.73 sqM); Albumin 4.9 g/dL (3.5-5.0); Alkaline Phosphatase 122 U/L (38-126); Anion Gap 9 mmol/L; Blood Urea Nitrogen 18 mg/dL (7-17); Calcium 9.9 mg/dL (8.4-10.2); Carbon Dioxide 32 mmol/L (22-30); Chloride 96 mmol/L (98-107); Lipase 98 U/L (23-300); Non-African American GFR(CKD) >90 (>60 ml/min/1.73 sqM); Potassium 3.7 mmol/L (3.5-5.1); Sodium 137 mmol/L (137-145); Total Bilirubin 0.8 mg/dL (0.2-1.3); Total Protein 8.9 g/dL (6.3-8.2)
[2023-02-28 21:16] LABS: Glucose 172 mg/dL (74-99)
[2023-02-28 21:44] LABS: Eosinophils # (M) 0.15 k/uL (0-0.7); Lymphocytes # (M) 8.64 k/uL (1.0-4.8); Monocytes # (M) 0.89 k/uL (0-1.0); Neutrophils # (M) 5.22 k/uL (1.3-7.7); Neutrophils % (M) 35 %; Nucleated Red Blood Cells 0 /100 WBC (0-0); Polychromasia Present; Total Cells Counted 100
[2023-02-28 21:45] LABS: Large Platelets Present
[2023-02-28] MEDS ORDERED: HYDROmorphone 1 MG/ML 1 ML SYRINGE IVP STA (21:48)
--- NOTE | 2023-02-28 21:59 | CT ---
EXAMINATION TYPE: CT abdomen pelvis w con CT DLP: 1537.5 mGycm, Automated exposure control for dose reduction was used. DATE OF EXAM: 02/28/2023 9:44 PM COMPARISON: CT 02/28/2022 CLINICAL INDICATION:Female, 52 years old with history of Abdominal pain and acute nonlocalized; Lower abdominal pain, diarrhea. TECHNIQUE: Axial CT of the abdomen and pelvis. Sagittal and coronal reformats were created on a [employer] workstation. Contrast used:100 ml mL of Isovue 300 with IV Contrast, (none if empty) Oral contrast used: without Oral Contrast (none if empty) FINDINGS: LOWER CHEST: Unremarkable ABDOMEN LIVER: Unremarkable GALLBLADDER AND BILE DUCTS: The gallbladder surgically absent. PANCREAS: Unremarkable. SPLEEN: Unremarkable. ADRENAL GLANDS: Unremarkable. KIDNEYS AND URETERS: No evidence of hydronephrosis or renal calculus. The ureters are unremarkable. PELVIS BLADDER: Incompletely distended but grossly unremarkable. REPRODUCTIVE: Uterus is surgically absent. ABDOMEN & PELVIS STOMACH AND BOWEL: Postsurgical changes of bowel. There is dilation of the anastomotic small bowel in the left upper quadrant measuring up to 3.2 cm. There is moderate amount of stool throughout the col on. No evidence for bowel obstruction. No bowel wall thickening. PERITONEUM/RETROPERITONEUM: No evidence of pneumoperitoneum or free fluid. VASCULATURE: No evidence of aortic aneurysm. MUSCULOSKELETAL: No acute osseous abnormalities LYMPH NODES: No gross evidence for lymphadenopathy. SOFT TISSUE/ABDOMINAL WALL: Unremarkable IMPRESSION: Postsurgical changes of the bowel. No evidence for bowel obstruction. Moderate amount of stool throug hout the colon. No acute process.
--- NOTE | 2023-02-28 22:30 | ED ---
Nausea/Vomiting/Diarrhea HPI - General Chief complaint: Nausea/Vomiting/Diarrhea Stated complaint: weakness,dehydration Time Seen by Provider: 02/28/23 19:14 Source: patient, RN notes reviewed Mode of arrival: ambulatory Limitations: no limitations - History of Present Illness Initial comments: 52-year-old female history of. Her surgery gastric bypass who started developing diarrhea 2 days ago some nausea vomiting sharp 9/10 pain. Lightheadedness and dizziness decreased oral intake. He did state she passed out. She was instructed to come the emergency department by Dr. Kalyan PENA complaint: nausea, vomiting, diarrhea, abdominal pain - Related Data Home Medications Medication Instructions Recorded Confirmed Cetirizine HCl [Zyrtec] 10 mg PO DAILY 06/13/18 02/26/23 Mirtazapine [Remeron] 15 mg PO HS 10/08/18 02/26/23 buPROPion HCL [Wellbutrin XL] 300 mg PO DAILY 12/24/18 02/26/23 LORazepam [Ativan] 0.5 mg PO QID PRN 04/23/19 02/26/23 Propranolol HCl [Inderal Xl] 80 mg PO DAILY PRN 04/23/19 02/26/23 Dulaglutide [Trulicity] 1.5 mg SQ WEEKLY 02/28/22 02/26/23 Gabapentin 300 mg PO TID 02/28/22 02/26/23 Insulin Aspart [NovoLOG Flexpen] See Protocol SQ AC-TID 02/28/22 02/26/23 Rizatriptan Odt [Maxalt EQUINE SCIENCE INSTRUCTOR] 10 mg PO BID PRN 02/28/22 02/26/23 metFORMIN HCL ER [Glucophage XR] 1,000 mg PO TID 02/28/22 02/26/23 Furosemide [Lasix] 20 mg PO DAILY 02/16/23 02/26/23 Ondansetron [Zofran] 4 mg PO Q8HR 02/16/23 02/26/23 Pioglitazone [Actos] 30 mg PO DAILY 02/16/23 02/26/23 Tamsulosin [Flomax] 0.4 mg PO HS 02/16/23 02/26/23 Zolpidem [Ambien] 10 mg PO HS PRN 02/16/23 02/26/23 Simvastatin [Zocor] 80 mg PO DAILY 02/28/23 02/28/23 Allergies Allergy/AdvReac Type Severity Reaction Status Date / Time oxycodone [From Percocet] Allergy Unknown Swelling; Verified 02/28/23 18:29 (WAS ABLE TO TAKE ALONG WITH BENADRYL) apricot Allergy Dyspnea Verified 02/28/23 18:29 barium sulfate Allergy Anaphylaxis Verified 02/28/23 18:29 [From Readi-Cat] codeine Allergy Anaphylaxis Verified 02/28/23 18:29 fentanyl Allergy Rash/Hives Verified 02/28/23 18:29 hydrocodone [From Lortab] Allergy Swelling Verified 02/28/23 18:29 Iodinated Contrast Media Allergy Anaphylaxis Verified 02/28/23 18:29 iodine Allergy Rash/Hives Verified 02/28/23 18:29 iron Allergy Swelling Verified 02/28/23 18:29 levofloxacin [From Levaquin] Allergy Swelling Verified 02/28/23 18:29 morphine Allergy Rash/Hives, Verified 02/28/23 18:29 Nausea/Vomiting peach Allergy Swelling Verified 02/28/23 18:29 peanut Allergy Swelling Verified 02/28/23 18:29 peanut oil Allergy Anaphylaxis Verified 02/28/23 18:29 shellfish derived [Shellfish] Allergy Anaphylaxis Verified 02/28/23 18:29 strawberry Allergy Anaphylaxis Verified 02/28/23 18:29 sucralfate [From Carafate] Allergy Swelling Verified 02/28/23 18:29 Sulfa (Sulfonamide Allergy Anaphylaxis Verified 02/28/23 18:29 Antibiotics) sulfamethoxazole Allergy Anaphylaxis Verified 02/28/23 18:29 [From Bactrim] tree nut [Nut] Allergy Swelling Verified 02/28/23 18:29 trimethoprim [From Bactrim] Allergy Anaphylaxis Verified 02/28/23 18:29 metronidazole [From Flagyl] AdvReac Unknown Verified 02/28/23 18:29 Review of Systems ROS Statement: Those systems with pertinent positive or pertinent negative responses have been documented in the HPI. ROS Other: All systems not noted in ROS Statement are negative. Past Medical History Past Medical History: Asthma, Cancer, CVA/TIA, Diabetes Mellitus, Fibromyalgia, GERD/Reflux, Hyperlipidemia, Osteoarthritis (OA), Pneumonia Additional Past Medical History / Comment(s): Had Iron infusions in Apr 2019. Hx TIA 2015. Diabetic neuropathy eli feet, migraines, cervical disc disease, DDD, eli tinnitis, arthiritis bilateral shoulders, IBS, HX R arm fx yrs ago, R ovarian cyst, hiatal hernia, UTIs, urinary calculus, pancreatitis x 2, stomach ulcer. Hx cervical cancer. COVID 08/2020 History of Any Multi-Drug Resistant Organisms: C-DIFF Date of last positivie culture/infection: 2015 MDRO Source:: None Past Surgical History: Appendectomy, Bariatric Surgery, Cholecystectomy, Hysterectomy, Tonsillectomy Additional Past Surgical History / Comment(s): 2010 felix-en-Y, fistula repair 2011, 2011 gastric bypass revision, bowel resection, lap gastrojejunostomy anastamosis revision, EGD and colonoscopy, cone bx-cervical cancer removed with cryo, L fallopian tube removed due to cyst, picc line in and out, CERVICAL FUSION 12/21/16. Past Anesthesia/Blood Transfusion Reactions: Family History of Problems w/ Anesthesia, Motion Sickness, Postoperative Nausea & Vomiting (PONV) Additional Past Anesthesia/Blood Transfusion Reaction / Comment(s): Pt states she has never recieved blood. FAMILY HX PONV. Past Psychological History: Anxiety, Depression Smoking Status: Never smoker Past Alcohol Use History: None Reported Past Drug Use History: None Reported - Past Family History Brother(s) Family Medical History: Deep Vein Thrombosis (DVT) Father Family Medical History: Cancer, Deep Vein Thrombosis (DVT), Pulmonary Embolus Additional Family Medical History / Comment(s): Father had poss colon and lung cancer and at age 73yrs. Mother Family Medical History: Coronary Artery Disease (CAD), Diabetes Mellitus, Deep Vein Thrombosis (DVT), Hypertension, Pulmonary Embolus Additional Family Medical History / Comment(s): Mother is alive and 73 yrs old. General Exam - General Exam Comments Initial Comments: This is a well-developed well-nourished awake alert oriented 4 female Limitations: no limitations General appearance: alert, anxious, in distress Head exam: Present: atraumatic, normocephalic, normal inspection Eye exam: Present: normal appearance, PERRL, EOMI. Absent: scleral icterus, conjunctival injection, periorbital swelling ENT exam: Present: mucous membranes dry Neck exam: Present: normal inspection. Absent: tenderness, meningismus, lymphadenopathy Respiratory exam: Present: normal lung sounds bilaterally. Absent: respiratory distress, wheezes, rales, rhonchi, stridor Cardiovascular Exam: Present: regular rate, tachycardia GI/Abdominal exam: Present: soft, tenderness, normal bowel sounds (Some voluntary guarding). Absent: bruit, pulsatile mass Rectal exam: Present: deferred Extremities exam: Present: normal inspection, full ROM, normal capillary refill. Absent: tenderness, pedal edema, joint swelling, calf tenderness Back exam: Present: normal inspection Neurological exam: Present: alert, oriented X3, CN II-XII intact Psychiatric exam: Present: normal affect, normal mood Skin exam: Present: warm, dry, intact, normal color. Absent: rash Course Vital Signs 02/28/23 18:26 Temperature 98.4 F Pulse Rate 102 H Respiratory 20 Rate Blood Pressure 177/104 O2 Sat by Pulse 96 Oximetry Medical Decision Making - Medical Decision Making I did discuss Pfizer the patient also with Dr. Biggs. Patient will be admitted for IV hydration. Elevated lactic acid is likely secondary to volume depletion. Was pt. sent in by a medical professional or institution (, PA, LIVESTOCK AUCTIONEER, urgent care, hospital, or intermediate...) When possible be specific @ -No Did you speak to anyone other than the patient for history (EMS, parent, family, police, friend...)? What history was obtained from this source @ -No Did you review nursing and triage notes (agree or disagree)? Why? @ -I reviewed and agree with nursing and triage notes Were old charts reviewed (outside hosp., previous admission, EMS record, old EKG, old radiological studies, urgent care reports/EKG's, intermediate records)? Report findings @ -No old charts were reviewed Differential Diagnosis (chest pain, altered mental status, abdominal pain women, abdominal pain men, vaginal bleeding, weakness, fever, dyspnea, syncope, headache, dizziness, GI bleed, back pain, seizure, CVA, palpatations, mental health, musculoskeletal)? @ -Abdominal pain, colitis, gastroenteritis, bowel obstruction EKG interpreted by me (3pts min.). @ -Not done X-rays interpreted by me (1pt min.). @ -None done CT interpreted by me (1pt min.). @ -CT interpreted by me no evidence of obstruction evidence of old. The surgery U/S interpreted by me (1pt. min.). @ -None done What testing was considered but not performed or refused? (CT, X-rays, U/S, labs)? Why? @ -None What meds were considered but not given or refused? Why? @ -None Did you discuss the management of the patient with other professionals (professionals i.e. , PA, LIVESTOCK AUCTIONEER, lab, RT, psych nurse, dialysis social worker, obstetrics teacher, teacher, technology officer, rehabilitation case coordinator)? Give summary @ -Dr. Biggs Was smoking cessation discussed for >3mins.? @ -No Was critical care preformed (if so, how long)? @ -No Were there social determinants of health that impacted care today? How? (Homelessness, low income, unemployed, alcoholism, drug addiction, transportation, low edu. Level, literacy, decrease access to med. care, care home, rehab)? @ -No Was there de-escalation of care discussed even if they declined (Discuss DNR or withdrawal of care, Hospice)? DNR status @ -No What co-morbidities impacted this encounter? (DM, HTN, Smoking, COPD, CAD, Cancer, CVA, ARF, Chemo, Hep., AIDS, mental health diagnosis, sleep apnea, morbid obesity)? @ -History of bariatric surgery Was patient admitted / discharged? Hospital course, mention meds given and route, prescriptions, significant lab abnormalities, going to OR and other pertinent info. @ -The patient was admitted for continued IV fluids Undiagnosed new problem with uncertain prognosis? @ -No Drug Therapy requiring intensive monitoring for toxicity (Heparin, Nitro, Insulin, Cardizem)? @ -No Were any procedures done? @ -No Diagnosis/symptom? @ -Abdominal pain, gastroenteritis, dehydration, lactic acidosis, leukocytosis Acute, or Chronic, or Acute on Chronic? @ -default Uncomplicated (without systemic symptoms) or Complicated (systemic symptoms)? @ -default Side effects of treatment? @ -No Exacerbation, Progression, or Severe Exacerbation? @ -No Poses a threat to life or bodily function? How? (Chest pain, [place], [place], pneumonia, PE, COPD, DKA, ARF, appy, cholecystitis, CVA, Diverticulitis, Homicidal, Suicidal, threat to staff... and all critical care pts) @ -No - Lab Data Result diagrams: 02/28/23 20:40 02/28/23 20:43 Lab Results 02/28/23 02/28/23 02/28/23 Range/Units 20:40 20:43 20:43 WBC 14.9 H (3.8-10.6) k/uL RBC 5.66 H (3.80-5.40) m/uL Hgb 12.8 (11.4-16.0) gm/dL Hct 41.4 (34.0-46.0) % MCV 73.1 L (80.0-100.0) fL MCH 22.7 L (25.0-35.0) pg MCHC 31.0 (31.0-37.0) g/dL RDW 16.5 H (11.5-15.5) % Plt Count 423 (150-450) k/uL MPV 7.9 Neutrophils % (Manual) 35 % Lymphocytes % (Manual) 58 % Monocytes % (Manual) 6 % Eosinophils % (Manual) 1 % Neutrophils # (Manual) 5.22 (1.3-7.7) k/uL Lymphocytes # (Manual) 8.64 H (1.0-4.8) k/uL Monocytes # (Manual) 0.89 (0-1.0) k/uL Eosinophils # (Manual) 0.15 (0-0.7) k/uL Nucleated RBCs 0 (0-0) /100 WBC Manual Slide Review Performed Large Platelets Present Polychromasia Present Hypochromasia Marked Anisocytosis Slight Microcytosis Moderate Sodium 137 (137-145) mmol/L Potassium 3.7 (3.5-5.1) mmol/L Chloride 96 L (98-107) mmol/L Carbon Dioxide 32 H (22-30) mmol/L Anion Gap 9 mmol/L BUN 18 H (7-17) mg/dL Creatinine 0.55 (0.52-1.04) mg/dL Est GFR (CKD-EPI)AfAm >90 (>60 ml/min/1.73 sqM) Est GFR (CKD-EPI)NonAf >90 (>60 ml/min/1.73 sqM) Glucose 172 H (74-99) mg/dL Plasma Lactic Acid Adam 2.5 H* (0.7-2.0) mmol/L Calcium 9.9 (8.4-10.2) mg/dL Total Bilirubin 0.8 (0.2-1.3) mg/dL AST 47 H (14-36) U/L ALT 35 H (4-34) U/L Alkaline Phosphatase 122 (38-126) U/L Total Protein 8.9 H (6.3-8.2) g/dL Albumin 4.9 (3.5-5.0) g/dL Lipase 98 (23-300) U/L - Radiology Data Interpreted by me: An director learning the imaging no evidence of acute processes seen evidence of old bariatric surgery. No evidence of obstruction Disposition Clinical Impression: Abdominal pain, Gastroenteritis, Dehydration, Lactic acidosis Disposition: ADMITTED IP TO THIS [facility] Condition: Stable Referrals: Macy Knight MD [Primary Care Provider] - 1-2 days Decision Date: 02/28/23 Decision Time: 22:35
[2023-02-28] MEDS ORDERED: NALOXONE 0.4 MG/ML 1 ML VIAL IV PRN (22:36)
[2023-02-28] MEDS: SODIUM CHLORIDE 0.9% 1,000 ML IV SCH (22:53)
[2023-03-01] MEDS: HYDROmorphone 1 MG/ML 1 ML SYRINGE IVP PRN ×7 (01:01→20:39)
[2023-03-01 01:23] LABS: Appearance,Urine Clear (Clear); Bilirubin,Urine Negative (Negative); Blood,Urine Negative (Negative); Color,Urine Yellow; Glucose,Urine (UA) Negative (Negative); Hyaline Casts,Urine 1 /lpf (0-2); Ketones,Urine 1+ (Negative); Leukocyte Esterase,Urine Moderate (Negative); Mucus,Urine Rare /hpf; Nitrite,Urine Negative (Negative); Protein,Urine Trace (Negative); RBC,Urine 2 /hpf (0-5); Squamous Epithelial Cell,Urine 2 /hpf (0-4); Urobilinogen,Urine <2.0 mg/dL (<2.0); WBC,Urine 10 /hpf (0-5)
[2023-03-01 01:24] LABS: Specific Gravity,Urine >1.050 (1.001-1.035)
[2023-03-01 05:40] LABS: Glucose,Whole Blood 335 mg/dL (70-110)
[2023-03-01] MEDS ORDERED: SODIUM CHLORIDE 0.9% 2,000 ML IV ONE (06:40)
[2023-03-01] MEDS: ONDANSETRON 4 MG/2 ML VIAL IVP PRN (08:14)
[2023-03-01] MEDS ORDERED: PROPRANOLOL LA 80 MG CAP.SA.24H PO PRN (09:02)
[2023-03-01] MEDS ORDERED: LORazepam 0.5 MG TAB PO PRN (09:02)
[2023-03-01] MEDS ORDERED: SUMAtriptan succinate 50 MG TAB PO PRN (09:02)
[2023-03-01] MEDS ORDERED: DEXTROSE 50% SYRINGE 50 ML IVP PRN ×2 (09:48)
[2023-03-01] MEDS: FUROSEMIDE 20 MG TAB PO SCH (10:32)
[2023-03-01] MEDS: metFORMIN 500 MG TAB PO SCH ×2 (10:32→22:00)
[2023-03-01] MEDS: buPROPion XL 300 MG TAB.ER.24H PO SCH (10:32)
[2023-03-01] MEDS: GABAPENTIN 300 MG CAP PO SCH ×3 (10:32→20:16)
[2023-03-01] MEDS: ATORVASTATIN 40 MG TAB PO SCH (10:32)
[2023-03-01] MEDS: LORATADINE 10 MG TAB PO SCH (10:32)
[2023-03-01] MEDS: PIOGLITAZONE 30 MG TAB PO SCH (10:33)
[2023-03-01 10:43] LABS: Anisocytosis Slight; Basophils % (A) 0 %; Eosinophils % (A) 0 %; HCT 32.4 % (34.0-46.0); Hypochromasia Marked; Lymphocytes # (A) 1.6 k/uL (1.0-4.8); Lymphocytes % (A) 18 %; MCH 22.3 pg (25.0-35.0); MCHC 30.1 g/dL (31.0-37.0); Mean Platelet Volume 7.4; Microcytosis Slight; Monocytes # (A) 0.2 k/uL (0-1.0); Monocytes % (A) 3 %; Neutrophils % (A) 79 %; Platelet Count 318 k/uL (150-450); RBC 4.38 m/uL (3.80-5.40); RDW 16.4 % (11.5-15.5); WBC 8.9 k/uL (3.8-10.6)
[2023-03-01 10:55] LABS: ALT 28 U/L (4-34); AST 29 U/L (14-36); African American GFR (CKD) >90 (>60 ml/min/1.73 sqM); Albumin 3.4 g/dL (3.5-5.0); Albumin/Globulin Ratio 1.2; Alkaline Phosphatase 83 U/L (38-126); Anion Gap 7 mmol/L; Blood Urea Nitrogen 16 mg/dL (7-17); Carbon Dioxide 27 mmol/L (22-30); Chloride 104 mmol/L (98-107); Globulin 2.8 g/dL; Glucose 274 mg/dL (74-99); Non-African American GFR(CKD) >90 (>60 ml/min/1.73 sqM); Potassium 4.1 mmol/L (3.5-5.1); Sodium 138 mmol/L (137-145); Total Bilirubin 0.3 mg/dL (0.2-1.3); Total Protein 6.2 g/dL (6.3-8.2)
[2023-03-01 10:57] LABS: HGB 9.8 gm/dL (11.4-16.0)
[2023-03-01 11:30] LABS: Glucose,Whole Blood 274 mg/dL (70-110)
[2023-03-01] MEDS ORDERED: SODIUM FERRIC GLUCONAT-SUCROSE 125 MG in SODIUM CHLORIDE 0.9% 100 ML IVPB ONE (11:44)
[2023-03-01] MEDS ORDERED: diphenhydrAMINE 50 MG/ML 1 ML VIAL IVP STA (11:45)
[2023-03-01] MEDS ORDERED: DEXAMETHASONE SOD PHOSPHATE 10 MG/ML 1 ML VIAL IVP STA (11:45)
--- NOTE | 2023-03-01 12:01 | P.GSHP ---
History of Present Illness H&P Date: 03/01/23 CHIEF COMPLAINT: Abdominal pain HISTORY OF PRESENT ILLNESS: This is a 52-year-old female with a known history of Felix-en-Y gastric bypass. She has been having lower abdominal pain with diarrhea and nausea for the last 2 days. She does report the pain can be sharp and rated at 9 out of 10. She occasionally has dark stools. Her stool this morning was brown and loose. She did see Dr. Contreras at the bariatric center and at that time had elevated blood pressure and heart rate. Patient was in structed to come into the ER for admission. She had a computed tomography scan completed and showed postsurgical changes of the bowel. No evidence for bowel obstruction. Moderate amount of stool throughout the colon. No acute process. PAST MEDICAL HISTORY: See list. PAST SURGICAL HISTORY: See list. MEDICATIONS: See list. ALLERGIES: See list. SOCIAL HISTORY: No illicit drug use. REVIEW OF SYSTEMS: CONSTITUTIONAL: Denies fever or chills. HEENT: Denies blurred vision, vision changes, or eye pain. Denies hemoptysis ENDOCRINE: Denies heat or cold intolerance. CARDIOVASCULAR: Denies chest pain or pressure. RESPIRATORY: No shortness of breath. GASTROINTESTINAL: Please refer to HPI NEURO: Denies history of seizures. PSYCH: No depression or suicidal ideation HEMATOLOGIC: Denies bleeding disorders. LYMPHATIC: The patient denies any lumps and bumps around the neck. GENITOURINARY: Denies any blood in urine or increased urinary frequency. MUSCULOSKELETAL: Denies myalgias. Denies joint swelling. Denies decreased range of motion beyond patients baseline. SKIN: Denies pruitis. Denies rash. PHYSICAL EXAM: VITAL SIGNS: Reviewed GENERAL: Well-developed in no acute distress. HEENT: No sclera icterus. Extraocular movements grossly intact. Moist buccal mucosa. Head is atraumatic, normocephalic. Hears conversational speech. No nasal drainage. NECK: Supple without lymphadenopathy. CHEST: Non-labored respirations and equal bilateral excursions. CARDIOVASCULAR: Palpable 2+ radial pulses. ABDOMEN: Soft. Nondistended. Tenderness to palpation across the lower abdomen MUSCULOSKELETAL: No clubbing or cyanosis. NEUROLOGIC: No focal or lateralizing signs. Cranial nerves II through XII grossly intact. PSYCH: Appropriate affect. Alert and oriented to person, place and time. SKIN: Well perfused. Good skin turgor. LABORATORY DATA: WBC 14.9 down to 8.9 Hgb 12.8 down to 9.8 platelets 318 Sodium 138 potassium 4.1 creatinine 0.50 Lactic acid 2.5 down to 1.2 AST 47-29 ALT 35 down to 28 total bili 0.3 IMAGING: Computed tomography scan of the abdomen as stated above ASSESSMENT: 1. Abdominal pain 2. Diarrhea 3. Dark stools. Possible GI bleed 4. Dehydration 5. Constipation. CAT scan showing moderate stool throughout the colon 6. History of Felix-en-Y gastric bypass 7. Elevated lactic acid level 8. Leukocytosis improved 9. Microcytic anemia with history of iron deficiency anemia 10. History of diabetes PLAN: -Soap tang enema ordered for constipation -IV iron ordered for anemia. Will give Decadron and IV Benadryl for history of ALLERGY to iron -Advance diet to full liquids -Continue supportive care -Check stool cultures, check stool for C. diff and stool for occult blood -Check stool for H. pylori -Continue IV fluids -Add IV Protonix BID Physician Material Handler Loader note has been reviewed by physician. Signing provider agrees with the documented findings, assessment, and plan of care. Past Medical History Past Medical History: Asthma, Cancer, CVA/TIA, Diabetes Mellitus, Fibromyalgia, GERD/Reflux, Hyperlipidemia, Osteoarthritis (OA), Pneumonia Additional Past Medical History / Comment(s): Had Iron infusions in Apr 2019. Hx TIA 2015. Diabetic neuropathy eli feet, migraines, cervical disc disease, DDD, eli tinnitis, arthiritis bilateral shoulders, IBS, HX R arm fx yrs ago, R ovarian cyst, hiatal hernia, UTIs, urinary calculus, pancreatitis x 2, stomach ulcer. Hx cervical cancer. COVID 08/2020 History of Any Multi-Drug Resistant Organisms: C-DIFF Date of last positivie culture/infection: 2015 MDRO Source:: None Past Surgical History: Appendectomy, Bariatric Surgery, Cholecystectomy, Hysterectomy, Tonsillectomy Additional Past Surgical History / Comment(s): 2010 felix-en-Y, fistula repair 2011, 2011 gastric bypass revision, bowel resection, lap gastrojejunostomy anastamosis revision, EGD and colonoscopy, cone bx-cervical cancer removed with cryo, L fallopian tube removed due to cyst, picc line in and out, CERVICAL FUSION 5/4/17. Past Anesthesia/Blood Transfusion Reactions: Family History of Problems w/ A nesthesia, Motion Sickness, Postoperative Nausea & Vomiting (PONV) Additional Past Anesthesia/Blood Transfusion Reaction / Comment(s): Pt states she has never recieved blood. FAMILY HX PONV. Past Psychological History: Anxiety, Depression Additional Psychological History / Comment(s): Pt lives with her significant other-common law . Smoking Status: Never smoker Past Alcohol Use History: None Reported Past Drug Use History: None Reported Additional Drug Use History / Comment(s): Pt has a medical marijuana card and tried using it for pain control but it makes her nauseated so she does not use marijuana at all. - Past Family History Brother(s) Family Medical History: Deep Vein Thrombosis (DVT) Father Family Medical History: Cancer, Deep Vein Thrombosis (DVT), Pulmonary Embolus Additional Family Medical History / Comment(s): Father had poss colon and lung cancer and at age 73yrs. Mother Family Medical History: Coronary Artery Disease (CAD), Diabetes Mellitus, Deep Vein Thrombosis (DVT), Hypertension, Pulmonary Embolus Additional Family Medical History / Comment(s): Mother is alive and 73 yrs old. Medications and Allergies Home Medications Medication Instructions Recorded Confirmed Type Cetirizine HCl [Zyrtec] 10 mg PO DAILY 06/13/18 02/28/23 History Mirtazapine [Remeron] 15 mg PO HS 10/08/18 02/28/23 History buPROPion HCL [Wellbutrin XL] 300 mg PO DAILY 12/24/18 02/28/23 History LORazepam [Ativan] 0.5 mg PO QID PRN 04/23/19 02/28/23 History Propranolol HCl [Inderal Xl] 80 mg PO DAILY PRN 04/23/19 02/28/23 History Dulaglutide [Trulicity] 1.5 mg SQ MO 02/28/22 02/28/23 History Gabapentin 300 mg PO TID 02/28/22 02/28/23 History Insulin Aspart [NovoLOG Flexpen] See Protocol SQ AC-TID 02/28/22 02/28/23 History Rizatriptan Odt [Maxalt ESCROW OFFICER] 10 mg PO BID PRN 02/28/22 02/28/23 History metFORMIN HCL ER [Glucophage XR] 1,000 mg PO TID 02/28/22 02/28/23 History Furosemide [Lasix] 20 mg PO DAILY 02/16/23 02/28/23 History Ondansetron [Zofran] 4 mg PO Q8HR 02/16/23 02/28/23 History Pioglitazone [Actos] 30 mg PO DAILY 02/16/23 02/28/23 History Tamsulosin [Flomax] 0.4 mg PO HS 02/16/23 02/28/23 History Zolpidem [Ambien] 10 mg PO HS PRN 02/16/23 02/28/23 History Simvastatin [Zocor] 80 mg PO DAILY 02/28/23 02/28/23 History Allergies Allergy/AdvReac Type Severity Reaction Status Date / Time oxycodone [From Percocet] Allergy Unknown Swelling; Verified 02/28/23 22:36 (WAS ABLE TO TAKE ALONG WITH BENADRYL) apricot Allergy Dyspnea Verified 02/28/23 22:36 barium sulfate Allergy Anaphylaxis Verified 02/28/23 22:36 [From Readi-Cat] codeine Allergy Anaphylaxis Verified 02/28/23 22:36 fentanyl Allergy Rash/Hives Verified 02/28/23 22:36 hydrocodone [From Lortab] Allergy Swelling Verified 02/28/23 22:36 Iodinated Contrast Media Allergy Anaphylaxis Verified 02/28/23 22:36 iodine Allergy Rash/Hives Verified 02/28/23 22:36 iron Allergy Swelling Verified 02/28/23 22:36 levofloxacin [From Levaquin] Allergy Swelling Verified 02/28/23 22:36 morphine Allergy Rash/Hives, Verified 02/28/23 22:36 Nausea/Vomiting peach Allergy Swelling Verified 02/28/23 22:36 peanut Allergy Swelling Verified 02/28/23 22:36 peanut oil Allergy Anaphylaxis Verified 02/28/23 22:36 shellfish derived [Shellfish] Allergy Anaphylaxis Verified 02/28/23 22:36 strawberry Allergy Anaphylaxis Verified 02/28/23 22:36 sucralfate [From Carafate] Allergy Swelling Verified 02/28/23 22:36 Sulfa (Sulfonamide Allergy Anaphylaxis Verified 02/28/23 22:36 Antibiotics) sulfamethoxazole Allergy Anaphylaxis Verified 02/28/23 22:36 [From Bactrim] tree nut [Nut] Allergy Swelling Verified 02/28/23 22:36 trimethoprim [From Bactrim] Allergy Anaphylaxis Verified 02/28/23 22:36 metronidazole [From Flagyl] AdvReac Unknown Verified 02/28/23 22:36 Surgical - Exam Vital Signs Temp Pulse Resp BP Pulse Ox 98.4 F 102 H 20 177/104 96 02/28/23 18:26 02/28/23 18:26 02/28/23 18:26 02/28/23 18:26 02/28/23 18:26 Results - Labs 03/01/23 10:19 03/01/23 10:19 Abnormal Lab Results - Last 24 Hours (Table) 02/28/23 02/28/23 02/28/23 Range/Units 20:40 20:43 20:43 WBC 14.9 H (3.8-10.6) k/uL RBC 5.66 H (3.80-5.40) m/uL MCV 73.1 L (80.0-100.0) fL MCH 22.7 L (25.0-35.0) pg RDW 16.5 H (11.5-15.5) % Lymphocytes # (Manual) 8.64 H (1.0-4.8) k/uL Chloride 96 L (98-107) mmol/L Carbon Dioxide 32 H (22-30) mmol/L BUN 18 H (7-17) mg/dL Glucose 172 H (74-99) mg/dL POC Glucose (mg/dL) (70-110) mg/dL Plasma Lactic Acid Adam 2.5 H* (0.7-2.0) mmol/L AST 47 H (14-36) U/L ALT 35 H (4-34) U/L Total Protein 8.9 H (6.3-8.2) g/dL Ur Specific [place] (1.001-1.035) Urine Protein (Negative) Urine Ketones (Negative) Ur Leukocyte Esterase (Negative) Urine WBC (0-5) /hpf Urine Mucus (None) /hpf 03/01/23 03/01/23 Range/Units 00:57 05:39 WBC (3.8-10.6) k/uL RBC (3.80-5.40) m/uL MCV (80.0-100.0) fL MCH (25.0-35.0) pg RDW (11.5-15.5) % Lymphocytes # (Manual) (1.0-4.8) k/uL Chloride (98-107) mmol/L Carbon Dioxide (22-30) mmol/L BUN (7-17) mg/dL Glucose (74-99) mg/dL POC Glucose (mg/dL) 335 H (70-110) mg/dL Plasma Lactic Acid Adam (0.7-2.0) mmol/L AST (14-36) U/L ALT (4-34) U/L Total Protein (6.3-8.2) g/dL Ur Specific [place] >1.050 H (1.001-1.035) Urine Protein Trace H (Negative) Urine Ketones 1+ H (Negative) Ur Leukocyte Esterase Moderate H (Negative) Urine WBC 10 H (0-5) /hpf Urine Mucus Rare H (None) /hpf Diabetes panel 02/28/23 Range/Units 20:43 Sodium 137 (137-145) mmol/L Potassium 3.7 (3.5-5.1) mmol/L Chloride 96 L (98-107) mmol/L Carbon Dioxide 32 H (22-30) mmol/L BUN 18 H (7-17) mg/dL Creatinine 0.55 (0.52-1.04) mg/dL Glucose 172 H (74-99) mg/dL Calcium 9.9 (8.4-10.2) mg/dL AST 47 H (14-36) U/L ALT 35 H (4-34) U/L Alkaline Phosphatase 122 (38-126) U/L Total Protein 8.9 H (6.3-8.2) g/dL Albumin 4.9 (3.5-5.0) g/dL Calcium panel 02/28/23 Range/Units 20:43 Calcium 9.9 (8.4-10.2) mg/dL Albumin 4.9 (3.5-5.0) g/dL Pituitary panel 02/28/23 Range/Units 20:43 Sodium 137 (137-145) mmol/L Potassium 3.7 (3.5-5.1) mmol/L Chloride 96 L (98-107) mmol/L Carbon Dioxide 32 H (22-30) mmol/L BUN 18 H (7-17) mg/dL Creatinine 0.55 (0.52-1.04) mg/dL Glucose 172 H (74-99) mg/dL Calcium 9.9 (8.4-10.2) mg/dL Adrenal panel 02/28/23 Range/Units 20:43 Sodium 137 (137-145) mmol/L Potassium 3.7 (3.5-5.1) mmol/L Chloride 96 L (98-107) mmol/L Carbon Dioxide 32 H (22-30) mmol/L BUN 18 H (7-17) mg/dL Creatinine 0.55 (0.52-1.04) mg/dL Glucose 172 H (74-99) mg/dL Calcium 9.9 (8.4-10.2) mg/dL Total Bilirubin 0.8 (0.2-1.3) mg/dL AST 47 H (14-36) U/L ALT 35 H (4-34) U/L Alkaline Phosphatase 122 (38-126) U/L Total Protein 8.9 H (6.3-8.2) g/dL Albumin 4.9 (3.5-5.0) g/dL
[2023-03-01] MEDS: PANTOPRAZOLE 40 MG/10 ML VIAL IVP SCH ×2 (12:17→20:22)
[2023-03-01] MEDS: INSULIN ASPART (NovoLOG) 100 UNIT/ML VIAL SQ SCH ×3 (12:18→22:09)
[2023-03-01] MEDS: SODIUM CHLORIDE 0.9% 1,000 ML IV SCH ×2 (12:19→17:35)
[2023-03-01 16:39] LABS: Glucose,Whole Blood 244 mg/dL (70-110)
[2023-03-01] MEDS: ONDANSETRON 4 MG TAB PO SCH (17:35)
[2023-03-01] MEDS: MIRTAZAPINE 15 MG TAB PO SCH (20:16)
[2023-03-01] MEDS: TAMSULOSIN 0.4 MG CAP.ER.24H PO SCH (20:16)
[2023-03-01 20:24] LABS: Glucose,Whole Blood 319 mg/dL (70-110)
[2023-03-01] MEDS: ZOLPIDEM 5 MG TAB PO PRN (22:10)
[2023-03-02] MEDS: ONDANSETRON 4 MG TAB PO SCH ×3 (02:21→16:51)
[2023-03-02] MEDS: HYDROmorphone 1 MG/ML 1 ML SYRINGE IVP PRN ×5 (02:40→18:50)
[2023-03-02] MEDS: SODIUM CHLORIDE 0.9% 1,000 ML IV SCH ×4 (05:47→20:19)
[2023-03-02 05:52] LABS: Glucose,Whole Blood 165 mg/dL (70-110)
[2023-03-02] MEDS: INSULIN ASPART (NovoLOG) 100 UNIT/ML VIAL SQ SCH ×4 (06:46→21:45)
[2023-03-02] MEDS: LORATADINE 10 MG TAB PO SCH (08:16)
[2023-03-02] MEDS: FUROSEMIDE 20 MG TAB PO SCH (08:16)
[2023-03-02] MEDS: GABAPENTIN 300 MG CAP PO SCH ×3 (08:16→22:38)
[2023-03-02] MEDS: metFORMIN 500 MG TAB PO SCH ×2 (08:16→20:18)
[2023-03-02] MEDS: ATORVASTATIN 40 MG TAB PO SCH (08:16)
[2023-03-02] MEDS: PANTOPRAZOLE 40 MG/10 ML VIAL IVP SCH (08:16)
[2023-03-02] MEDS: buPROPion XL 300 MG TAB.ER.24H PO SCH (08:16)
[2023-03-02] MEDS: PIOGLITAZONE 30 MG TAB PO SCH (08:28)
[2023-03-02 09:28] LABS: Anisocytosis Slight; HCT 33.1 % (34.0-46.0); HGB 9.6 gm/dL (11.4-16.0); Hypochromasia Marked; MCH 22.1 pg (25.0-35.0); MCHC 29.1 g/dL (31.0-37.0); MCV 76.1 fL (80.0-100.0); Mean Platelet Volume 7.2; Microcytosis Slight; Platelet Count 315 k/uL (150-450); RBC 4.36 m/uL (3.80-5.40); WBC 14.7 k/uL (3.8-10.6)
[2023-03-02 10:04] LABS: African American GFR (CKD) >90 (>60 ml/min/1.73 sqM); Anion Gap 12 mmol/L; Blood Urea Nitrogen 11 mg/dL (7-17); Calcium 8.6 mg/dL (8.4-10.2); Carbon Dioxide 22 mmol/L (22-30); Chloride 105 mmol/L (98-107); Glucose 171 mg/dL (74-99); Non-African American GFR(CKD) >90 (>60 ml/min/1.73 sqM); Potassium 3.6 mmol/L (3.5-5.1); Sodium 139 mmol/L (137-145)
[2023-03-02 11:11] LABS: Glucose,Whole Blood 102 mg/dL (70-110)
--- NOTE | 2023-03-02 12:10 | P.PN ---
Subjective Progress Note Date: 03/02/23 CHIEF COMPLAINT: Abdominal pain HISTORY OF PRESENT ILLNESS: Patient continues complaining of lower abdominal pain. She did have 4 episodes of diarrhea. She denies any blood in her stools. Denies any nausea or vomiting. She reports skin irritation around the rectum due to diarrhea. Afebrile. WBC is 14.7 Hgb 9.6 platelets 315 sodium 139 potassium 3.6 creatinine 0.57 PHYSICAL EXAM: VITAL SIGNS: Reviewed. GENERAL: Well-developed in no acute distress. HEENT: No sclera icterus. Extraocular movements grossly intact. Moist buccal mucosa. Head is atraumatic, normocephalic. ABDOMEN: Soft. Nondistended. Tenderness upon palpation across the lower abdomen NEUROLOGIC: Alert and oriented. Cranial nerves II through XII grossly intact. ASSESSMENT: 1. Abdominal pain 2. Diarrhea 3. Dark stools. Stool for occult blood negative 4. Dehydration 5. Constipation. CAT scan showing moderate stool throughout the colon 6. History of Sabino-en-Y gastric bypass 7. Elevated lactic acid level 8. Leukocytosis improved 9. Microcytic anemia with history of iron deficiency anemia 10. History of diabetes PLAN: -Zinc oxide added for skin irritation at the rectum -Check stool for C. diff -Continue IV fluids -Follow up on stool cultures -Change Protonix to once a day. Stool for occult blood negative -Continue full liquid diet Physician Receptionist Scheduler note has been reviewed by physician. Signing provider agrees with the documented findings, assessment, and plan of care. Please see additional documentation as patient reevaluated in the evening. CHIEF COMPLAINT: Abdominal pain and colitis HISTORY OF PRESENT ILLNESS: The patient is a 52-year-old female admitted with severe lower abdominal pain including change in bowel habits and colitis. She presented with dehydration nausea. Since admission, she is tolerating diet. She still continues to complain of bilateral lower abdominal pain. Bowel movements she reports are loose and watery. No gross blood in stools. She also complains of new left-sided chest pain with radiation to the left arm concerning for heart attack. She describes burning sensation along the shoulder and arm. ROS: No fevers or chills. No productive sputum PHYSICAL EXAM: VITAL SIGNS: Reviewed CONSTITUTIONAL: Well developed and in no acute distress. EYES: Conjuctivae without sclera icterus. Extraocular movements grossly intact. HEAD, EARS, NOSE, THROAT: Moist buccal mucosa. Head is atraumatic, normocephalic. Hears conversational speech. No nasal drainage. NECK: Supple. No thyroidomegaly. RESPIRATORY: Non-labored respirations and equal bilateral excursions. CARDIOVASCULAR: Palpable 2+ radial pulses. ABDOMEN: No peritonitis. Tender lower abdomen. MUSCULOSKELETAL: No gross deformity of the lower extremities noted. No clubbing. No cyanosis. Knee mobilizer along the left knee. SKIN: Good skin turgor. Well perfused. NEUROLOGIC: Cranial nerves I through XII grossly intact. No focal or lateralizing signs. PSYCH: Appropriate affect. Alert and oriented to person, place and time. CLINCAL LABS: Reviewed. WBC elevated at over 14,000. Troponins negative. ASSESSMENT: 1. Colitis 2. Multiple antibiotic ALLERGIES 3. Acute chest pain PLAN: 1. Her white blood cell count was elevated after giving steroids and Benadryl for premedication to iron infusion. Patient reports recurrent symptoms after receiving IV iron. 2. Serology negative for elevated stool lactoferrin and C. diff is negative. Presentation resembling adverse reaction from iron infusion. 3. She reports lower abdominal cramping and will start Bentyl with advancement of diet. 4. At this time, hold antibiotics due to multiple drug ALLERGIES with repeat CBC. 5. New chest pain with negative troponins and possible musculoskeletal origin described Objective - Vital Signs Vital signs: Vital Signs Temp 99.3 F 03/02/23 06:54 Pulse 92 03/02/23 06:54 Resp 15 03/02/23 06:54 BP 103/69 03/02/23 06:54 Pulse Ox 95 03/02/23 06:54 FiO2 Intake & Output 03/01/23 03/02/23 03/02/23 18:59 06:59 18:59 Other: Voiding Method Toilet Toilet Toilet # Voids 3 2 # Bowel Movements 2 - Labs CBC & Chem 7: 03/02/23 08:42 03/02/23 08:42 Labs: Abnormal Lab Results - Last 24 Hours (Table) 03/01/23 03/01/23 03/01/23 Range/Units 10:19 16:38 20:19 WBC (3.8-10.6) k/uL Hgb (11.4-16.0) gm/dL Hct (34.0-46.0) % MCV (80.0-100.0) fL MCH (25.0-35.0) pg MCHC (31.0-37.0) g/dL RDW (11.5-15.5) % Glucose (74-99) mg/dL POC Glucose (mg/dL) 244 H 319 H (70-110) mg/dL Hemoglobin A1c 9.2 H (<=6.0) % 03/02/23 03/02/23 03/02/23 Range/Units 05:48 08:42 08:42 WBC 14.7 H (3.8-10.6) k/uL Hgb 9.6 L (11.4-16.0) gm/dL Hct 33.1 L (34.0-46.0) % MCV 76.1 L (80.0-100.0) fL MCH 22.1 L (25.0-35.0) pg MCHC 29.1 L (31.0-37.0) g/dL RDW 17.0 H (11.5-15.5) % Glucose 171 H (74-99) mg/dL POC Glucose (mg/dL) 165 H (70-110) mg/dL Hemoglobin A1c (<=6.0) %
[2023-03-02] MEDS: ONDANSETRON 4 MG/2 ML VIAL IVP PRN (14:11)
[2023-03-02] MEDS: ZINC OXIDE 20% OINT 28.4 GM TUBE TOPICAL SCH ×2 (15:54→22:38)
[2023-03-02 16:24] LABS: Glucose,Whole Blood 118 mg/dL (70-110)
[2023-03-02 16:39] VITALS: BMI 29.5
[2023-03-02] MEDS ORDERED: LORazepam 2 MG/ML INJ IV PRN (18:45)
[2023-03-02] MEDS: TAMSULOSIN 0.4 MG CAP.ER.24H PO SCH (20:18)
[2023-03-02] MEDS: MIRTAZAPINE 15 MG TAB PO SCH (20:18)
[2023-03-02 21:39] LABS: Glucose,Whole Blood 133 mg/dL (70-110)
[2023-03-02] MEDS: ZOLPIDEM 5 MG TAB PO PRN (22:37)
[2023-03-03] MEDS: DICYCLOMINE 10 MG CAP PO SCH ×3 (00:01→12:54)
[2023-03-03] MEDS: ONDANSETRON 4 MG TAB PO SCH ×3 (00:02→17:06)
[2023-03-03] MEDS: HYDROmorphone 1 MG/ML 1 ML SYRINGE IVP PRN ×4 (00:02→12:54)
[2023-03-03] MEDS: SODIUM CHLORIDE 0.9% 1,000 ML IV SCH ×2 (02:07→09:04)
[2023-03-03 06:22] LABS: Glucose,Whole Blood 135 mg/dL (70-110)
[2023-03-03] MEDS: INSULIN ASPART (NovoLOG) 100 UNIT/ML VIAL SQ SCH ×2 (06:23→11:56)
[2023-03-03 08:17] VITALS: TEMP 97.4
[2023-03-03] MEDS ORDERED: PANTOPRAZOLE 40 MG/10 ML VIAL IVP SCH (09:00)
[2023-03-03] MEDS: GABAPENTIN 300 MG CAP PO SCH ×2 (09:00→17:06)
[2023-03-03] MEDS: PIOGLITAZONE 30 MG TAB PO SCH (09:00)
[2023-03-03] MEDS: LORATADINE 10 MG TAB PO SCH (09:00)
[2023-03-03] MEDS: buPROPion XL 300 MG TAB.ER.24H PO SCH (09:00)
[2023-03-03] MEDS: metFORMIN 500 MG TAB PO SCH (09:00)
[2023-03-03] MEDS: FUROSEMIDE 20 MG TAB PO SCH (09:00)
[2023-03-03] MEDS: ATORVASTATIN 40 MG TAB PO SCH (09:01)
[2023-03-03] MEDS: ZINC OXIDE 20% OINT 28.4 GM TUBE TOPICAL SCH (09:01)
--- NOTE | 2023-03-03 10:05 | P.CONS ---
History of Present Illness - Reason for Consult Consult date: 03/03/23 - History of Present Illness Bella Su, he is a 52-year-old female who presented to [facility] emergency room on 02/28/2023 with a chief complaint of nausea vomiting and diarrhea that started 2 days prior to admission, patient called her surgeon Dr. Contreras and she was instructed to go to emergency room. Patient was recently seen by Dr. Contreras, she underwent EGD and esophageal dilatation on 02/21/2023. She also has a known history of bariatric surgery with Sabino-en-Y in 2010 with revision in 2011. She was evaluated in the emergency room vital examination on presentation revealed a temperature of 98.4 pulse 1 or 2 respiration 20 blood pressure 177/104 pulse ox 96% on room air Laboratory data revealed a white blood count of 14.9 hemoglobin 12.8 platelet count 423 lactic acid was 2.5 AST 47 ALT 35 BUN 18 creatinine 0.55 urine analysis revealed positive leukocyte esterase with 10 white blood cells in high power field Testing in the emergency room revealed computed tomography scan of the abdomen and pelvis was done in the emergency room and revealed postsurgical changes of the bowel without evidence for bowel obstruction there was moderate amount of stool throughout the colon no acute process. Patient was admitted to medical floor for further evaluation and treatment, she was treated by Dr. Contreras, however on 03/02/2020 3 in the evening she started having episodes of chest pain. At that time medical consultation was requested. Patient was seen and examined on the medical floor she is alert and oriented 3 in no apparent distress she describes a pressure sensation in the left upper chest area radiating to her left shoulder and left arm with numbness in the left arm that has been constant for several hours EKG was done and revealed normal sinus rhythm no acute ischemic changes, troponin was drawn and was within normal limits at less than 0.012. Past Medical History Past Medical History: Asthma, Cancer, CVA/TIA, Diabetes Mellitus, Fibromyalgia, GERD/Reflux, Hyperlipidemia, Osteoarthritis (OA), Pneumonia Additional Past Medical History / Comment(s): Had Iron infusions in Apr 2019. Hx TIA 2015. Diabetic neuropathy eli feet, migraines, cervical disc disease, DDD, eli tinnitis, arthiritis bilateral shoulders, IBS, HX R arm fx yrs ago, R ovarian cyst, hiatal hernia, UTIs, urinary calculus, pancreatitis x 2, stomach ulcer. Hx cervical cancer. COVID 08/2020 History of Any Multi-Drug Resistant Organisms: C-DIFF Year Discovered:: 2016 MDRO Source:: None Past Surgical History: Appendectomy, Bariatric Surgery, Cholecystectomy, Hysterectomy, Tonsillectomy Additional Past Surgical History / Comment(s): 2010 sabino-en-Y, fistula repair 2011, 2011 gastric bypass revision, bowel resection, lap gastrojejunostomy anastamosis revision, EGD and colonoscopy, cone bx-cervical cancer removed with cryo, L fallopian tube removed due to cyst, picc line in and out, CERVICAL FUS ION 12/21/16. Past Anesthesia/Blood Transfusion Reactions: Family History of Problems w/ Anesthesia, Motion Sickness, Postoperative Nausea & Vomiting (PONV) Additional Past Anesthesia/Blood Transfusion Reaction / Comm: Pt states she has never recieved blood. FAMILY HX PONV. Past Psychological History: Anxiety, Depression Additional Psychological History / Comment(s): Pt lives with her significant o ther-common law . Smoking Status: Never smoker Past Alcohol Use History: None Reported Past Drug Use History: None Reported Additional Drug Use History / Comment(s): Pt has a medical marijuana card and tried using it for pain control but it makes her nauseated so she does not use marijuana at all. - Past Family History Brother(s) Family Medical History: Deep Vein Thrombosis (DVT) Father Family Medical History: Cancer, Deep Vein Thrombosis (DVT), Pulmonary Embolus Additional Family Medical History / Comment(s): Father had poss colon and lung cancer and at age 73yrs. Mother Family Medical History: Coronary Artery Disease (CAD), Diabetes Mellitus, Deep Vein Thrombosis (DVT), Hypertension, Pulmonary Embolus Additional Family Medical History / Comment(s): Mother is alive and 73 yrs old. Medications and Allergies Home Medications Medication Instructions Recorded Confirmed Type Cetirizine HCl [Zyrtec] 10 mg PO DAILY 06/13/18 02/28/23 History Mirtazapine [Remeron] 15 mg PO HS 10/08/18 02/28/23 History buPROPion HCL [Wellbutrin XL] 300 mg PO DAILY 12/24/18 02/28/23 History LORazepam [Ativan] 0.5 mg PO QID PRN 04/23/19 02/28/23 History Propranolol HCl [Inderal Xl] 80 mg PO DAILY PRN 04/23/19 02/28/23 History Dulaglutide [Trulicity] 1.5 mg SQ MO 02/28/22 02/28/23 History Gabapentin 300 mg PO TID 02/28/22 02/28/23 History Insulin Aspart [NovoLOG Flexpen] See Protocol SQ AC-TID 02/28/22 02/28/23 History Rizatriptan Odt [Maxalt EKG TECHNICIAN] 10 mg PO BID PRN 02/28/22 02/28/23 History metFORMIN HCL ER [Glucophage XR] 1,000 mg PO TID 02/28/22 02/28/23 History Furosemide [Lasix] 20 mg PO DAILY 02/16/23 02/28/23 History Ondansetron [Zofran] 4 mg PO Q8HR 02/16/23 02/28/23 History Pioglitazone [Actos] 30 mg PO DAILY 02/16/23 02/28/23 History Tamsulosin [Flomax] 0.4 mg PO HS 02/16/23 02/28/23 History Zolpidem [Ambien] 10 mg PO HS PRN 02/16/23 02/28/23 History Simvastatin [Zocor] 80 mg PO DAILY 02/28/23 02/28/23 History Allergies Allergy/AdvReac Type Severity Reaction Status Date / Time oxycodone [From Percocet] Allergy Unknown Swelling; Verified 02/28/23 22:36 (WAS ABLE TO TAKE ALONG WITH BENADRYL) apricot Allergy Dyspnea Verified 02/28/23 22:36 barium sulfate Allergy Anaphylaxis Verified 02/28/23 22:36 [From Readi-Cat] codeine Allergy Anaphylaxis Verified 02/28/23 22:36 fentanyl Allergy Rash/Hives Verified 02/28/23 22:36 hydrocodone [From Lortab] Allergy Swelling Verified 02/28/23 22:36 Iodinated Contrast Media Allergy Anaphylaxis Verified 02/28/23 22:36 iodine Allergy Rash/Hives Verified 02/28/23 22:36 iron Allergy Swelling Verified 02/28/23 22:36 levofloxacin [From Levaquin] Allergy Swelling Verified 02/28/23 22:36 morphine Allergy Rash/Hives, Verified 02/28/23 22:36 Nausea/Vomiting peach Allergy Swelling Verified 02/28/23 22:36 peanut Allergy Swelling Verified 02/28/23 22:36 peanut oil Allergy Anaphylaxis Verified 02/28/23 22:36 shellfish derived [Shellfish] Allergy Anaphylaxis Verified 02/28/23 22:36 strawberry Allergy Anaphylaxis Verified 02/28/23 22:36 sucralfate [From Carafate] Allergy Swelling Verified 02/28/23 22:36 Sulfa (Sulfonamide Allergy Anaphylaxis Verified 02/28/23 22:36 Antibiotics) sulfamethoxazole Allergy Anaphylaxis Verified 02/28/23 22:36 [From Bactrim] tree nut [Nut] Allergy Swelling Verified 02/28/23 22:36 trimethoprim [From Bactrim] Allergy Anaphylaxis Verified 02/28/23 22:36 metronidazole [From Flagyl] AdvReac Unknown Verified 02/28/23 22:36 Physical Exam Vitals: Vital Signs Temp Pulse Resp BP Pulse Ox 03/03/23 07:27 97.4 F L 86 18 104/72 94 L 03/03/23 02:00 97.8 F 96 16 107/66 95 03/02/23 19:51 98.2 F 85 16 108/75 95 03/02/23 13:47 97.6 F 94 18 105/68 96 Intake and Output 03/02/23 03/03/23 03/03/23 22:59 06:59 14:59 Other: # Voids 4 3 # Bowel Movements 3 3 Weight 87.997 kg In general patient is alert and oriented x 3 in no distress HEENT head normocephalic and atraumatic Neck is supple no JVD no goiter no lymphadenopathy no carotid bruit Chest examination is clear to auscultation no crackles no wheezing Cardiac exam reveals regular heart sounds S1 and S2 no gallops no murmurs Abdomen is soft nontender no organomegaly with normal bowel sounds Extremity exam reveals no edema no cyanosis or clubbing Neurological examination reveals no gross focal deficits Results CBC & Chem 7: 03/02/23 08:42 03/02/23 08:42 Labs: Abnormal Lab Results - Last 24 Hours (Table) 03/01/23 03/02/23 03/02/23 Range/Units 10:19 08:42 16:22 Glucose 171 H (74-99) mg/dL POC Glucose (mg/dL) 118 H (70-110) mg/dL Hemoglobin A1c 9.2 H (<=6.0) % 03/02/23 03/03/23 Range/Units 21:38 06:20 Glucose (74-99) mg/dL POC Glucose (mg/dL) 133 H 135 H (70-110) mg/dL Hemoglobin A1c (<=6.0) % Assessment and Plan Plan: Gastroenteritis with diarrhea and abdominal pain Episode of chest pain, which seems to be musculoskeletal in nature, however ch est x-ray and echocardiogram will be obtained Iron deficiency anemia Leukocytosis, possibly related to IV steroid use Underlying history of gastroenteritis Evidence of urinary tract infection, with suprapubic pain Underlying history of esophageal stenosis status post recent EGD with esophageal dilatation. History of bariatric surgery with revision At this time patient is admitted to medical floor Will continue with current medication management Will check echocardiogram and chest x-ray Will check urine culture and I'll add IV Rocephin for urinary tract infection Will follow closely during this admission
[2023-03-03 10:47] LABS: Basophils # (A) 0.07 X 10*3/uL (0.00-0.10); Basophils % (A) 0.7 %; Elliptocytes 2+; Eosinophils # (A) 0.22 X 10*3/uL (0.04-0.35); Eosinophils % (A) 2.4 %; HCT 33.3 % (37.2-46.3); HGB 9.5 d/dL (12.0-15.0); Lymphocytes # (A) 4.39 X 10*3/uL (0.90-5.00); MCH 22.2 pg (27.0-32.0); MCHC 28.5 d/dL (32.0-37.0); Mean Platelet Volume 11.4 FL (9.5-12.2); Monocytes # (A) 0.75 X 10*3/uL (0.20-1.00); NRBC Per 100 WBC 0 X 10*3/uL (0.00-0.01); Neutrophils # (A) 3.89 X 10*3/uL (1.80-7.70); Neutrophils % (A) 41.6 %; Platelet Count 265 X 10*3/uL (140-440); RBC 4.27 X 10*6/uL (4.10-5.20); RDW 18.6 % (11.5-14.5); WBC 9.35 X 10*3/uL (4.50-10.00)
--- NOTE | 2023-03-03 11:08 | XR ---
EXAMINATION TYPE: XR chest 2V DATE OF EXAM: 03/03/2023 10:53 AM COMPARISON: Chest radiographs from 04/26/2021 TECHNIQUE: XR chest 2V Frontal and lateral views of the chest. CLINICAL INDICATION:Female, 52 years old with history of Chest pain; FINDINGS: Lungs/Pleura: There is no evidence of pleural effusion, focal consolidation, or pneumothorax. Pulmonary vascularity: Unremarkable. Heart/mediastinum: Cardiomediastinal silhouette is unremarkable. Musculoskeletal: No acute osseous pathology. There is fixation hardware in the lower cervical spine. Other findings: None IMPRESSION: No acute cardiopulmonary disease/process.
[2023-03-03 11:41] LABS: Glucose,Whole Blood 126 mg/dL (70-110)
[2023-03-03 14:18] VITALS: BP 105/68; PULSE 104; RESP 18
[2023-03-03] MEDS: ONDANSETRON 4 MG/2 ML VIAL IVP PRN (15:06)
--- NOTE | 2023-03-03 16:21 | P.DS ---
Providers Date of admission: 02/28/23 22:35 Expected date of discharge: 03/03/23 Attending physician: Osiris Contreras Consults: 03/02/23 15:04 Consult Physician Urgent Consulting Provider: Macy Knight Consult Reason/Comments: Medical management Do you want consulting provider notified?: Yes 03/02/23 15:42 Consult Physician Urgent Consulting Provider: Bushra Elliott Consult Reason/Comments: Medical management Do you want consulting provider notified?: Yes Primary care physician: Macy Knight Hospital Course: CHIEF COMPLAINT: Colitis HISTORY OF PRESENT ILLNESS: The patient is a 52 year old female who reports developing intractable diarrhea and lower abdominal pain after starting iron infusions with steroids. She presented to the hospital with leukocytosis and worsening abdominal pain. Imaging studies were obtained demonstrating no acute diverticulitis. IV fluid hydration including IV iron infusions were given with recurrent symptoms. Stool studies were obtained which were negative for C. diff, stool parasites, and calprotectin. She was started on bentyl for abdominal cramps. She reports intolerance to textured foods and grill cheese. Overall she has some clinical improvement. Patient advised that she may have intolerance to iron infusions and dietary iron with blended spinach, green apples, and protein powder may give her the most benefit. Her family were at bedside. Improvement obtained without complete resolution of her symptoms reviewed. WBC was normal. Patient was stable for discharge. REVIEW OF ORGAN SYSTEMS: CONSTITUTIONAL: No reports of fevers or chills. PHYSICAL EXAM: VITAL SIGNS: Stable GENERAL: Well-developed pleasant and in no acute distress. HEENT: No scleral icterus. Extraocular movements grossly intact. Moist buccal mucosa. NECK: Supple without lymphadenopathy. CHEST: Unlabored respirations. Equal bilateral excursions. CARDIOVASCULAR: Regular rate and rhythm. Distal 2+ pulses. ABDOMEN: No peritonitis. Lower abdominal tenderness MUSCULOSKELETAL: No clubbing, cyanosis, or edema. ASSESSMENT: 1. Intractable lower abdominal pain 2. Adverse reaction to iron infusions with steriodsl PLAN: 1. Discharge with follow up at the bariatric center reviewed. 2. Patient, familiy, and nurse at bedside with care plan reviewed. Patient Condition at Discharge: Stable Plan - Discharge Summary Discharge Rx Participant: Yes New Discharge Prescriptions: New Dicyclomine [Bentyl] 10 mg PO QID #30 capsule Continue Cetirizine HCl [Zyrtec] 10 mg PO DAILY Mirtazapine [Remeron] 15 mg PO HS buPROPion HCL [Wellbutrin XL] 300 mg PO DAILY Propranolol HCl [Inderal Xl] 80 mg PO DAILY PRN PRN Reason: Pain LORazepam [Ativan] 0.5 mg PO QID PRN PRN Reason: Anxiety Insulin Aspart [NovoLOG Flexpen] See Protocol SQ AC-TID metFORMIN HCL ER [Glucophage XR] 1,000 mg PO TID Dulaglutide [Trulicity] 1.5 mg SQ MO Rizatriptan Odt [Maxalt LEARNING ANALYST] 10 mg PO BID PRN PRN Reason: Migraine Headache Tamsulosin [Flomax] 0.4 mg PO HS Furosemide [Lasix] 20 mg PO DAILY Simvastatin [Zocor] 80 mg PO DAILY Gabapentin 300 mg PO TID Zolpidem [Ambien] 10 mg PO HS PRN PRN Reason: Insomnia Pioglitazone [Actos] 30 mg PO DAILY Ondansetron [Zofran] 4 mg PO Q8HR Discharge Medication List Cetirizine HCl [Zyrtec] 10 mg PO DAILY 06/13/18 [History] Mirtazapine [Remeron] 15 mg PO HS 10/08/18 [History] buPROPion HCL [Wellbutrin XL] 300 mg PO DAILY 12/24/18 [History] LORazepam [Ativan] 0.5 mg PO QID PRN 04/23/19 [History] Propranolol HCl [Inderal Xl] 80 mg PO DAILY PRN 04/23/19 [History] Dulaglutide [Trulicity] 1.5 mg SQ MO 02/28/22 [History] Gabapentin 300 mg PO TID 02/28/22 [History] Insulin Aspart [NovoLOG Flexpen] See Protocol SQ AC-TID 02/28/22 [History] Rizatriptan Odt [Maxalt LEARNING ANALYST] 10 mg PO BID PRN 02/28/22 [History] metFORMIN HCL ER [Glucophage XR] 1,000 mg PO TID 02/28/22 [History] Furosemide [Lasix] 20 mg PO DAILY 02/16/23 [History] Ondansetron [Zofran] 4 mg PO Q8HR 02/16/23 [History] Pioglitazone [Actos] 30 mg PO DAILY 02/16/23 [History] Tamsulosin [Flomax] 0.4 mg PO HS 02/16/23 [History] Zolpidem [Ambien] 10 mg PO HS PRN 02/16/23 [History] Simvastatin [Zocor] 80 mg PO DAILY 02/28/23 [History] Dicyclomine [Bentyl] 10 mg PO QID #30 capsule 03/03/23 [Rx] Follow up Appointment(s)/Referral(s): Macy Knight MD [Primary Care Provider] [facility] [place]/[facility]23 Patient Instructions/Handouts: Colitis (ED) Discharge Disposition: HOME SELF-CARE
[2023-03-05] MEDS ORDERED: PATIENT'S OWN (Dulaglutide [Trulicity] 3 MG/0.5 ML Each) SQ SCH (09:00)
[2023-03-06 15:09] LABS: Calprotectin, Stool <27.1 mcg/g (<50)
== END 2023-03-03 17:21 | disposition home or self-care (01) ==
LOC: EC 17:52 → INTOOBSV 22:35 → 4SSUR 22:35
PROVIDERS: ADMIT Surgery Plastic and Reconstructive Surgery; ATTEND Surgery Plastic and Reconstructive Surgery
DX: E86.0 Dehydration (principal); J45.909 Unspecified asthma, uncomplicated; T45.4X5A Adverse effect of iron and its compounds, initial encounter; T38.0X5A Adverse effect of glucocorticoids and synthetic analogues, initial encounter; Z98.84 Bariatric surgery status; E11.42 Type 2 diabetes mellitus with diabetic polyneuropathy; M79.7 Fibromyalgia; K21.9 Gastro-esophageal reflux disease without esophagitis; E78.5 Hyperlipidemia, unspecified; M19.90 Unspecified osteoarthritis, unspecified site; Z86.73 Personal history of transient ischemic attack (TIA), and cerebral infarction without residual deficits; Z85.41 Personal history of malignant neoplasm of cervix uteri; Z87.442 Personal history of urinary calculi; M50.30 Other cervical disc degeneration, unspecified cervical region; G43.909 Migraine, unspecified, not intractable, without status migrainosus; H93.13 Tinnitus, bilateral; K58.9 Irritable bowel syndrome, unspecified; Z87.440 Personal history of urinary (tract) infections; Z86.16 Personal history of COVID-19; Z86.19 Personal history of other infectious and parasitic diseases; Z90.49 Acquired absence of other specified parts of digestive tract; Z98.890 Other specified postprocedural states; F41.9 Anxiety disorder, unspecified; F32.A Depression, unspecified; R74.02 Elevation of levels of lactic acid dehydrogenase [LDH]; D72.829 Elevated white blood cell count, unspecified; D50.9 Iron deficiency anemia, unspecified; Z98.1 Arthrodesis status; Z80.1 Family history of malignant neoplasm of trachea, bronchus and lung; Z82.49 Family history of ischemic heart disease and other diseases of the circulatory system; Z83.3 Family history of diabetes mellitus; Z79.85 Long-term (current) use of injectable non-insulin antidiabetic drugs; Z79.84 Long term (current) use of oral hypoglycemic drugs; Z79.4 Long term (current) use of insulin; Z79.899 Other long term (current) drug therapy; Z91.041 Radiographic dye allergy status; Z88.5 Allergy status to narcotic agent; Z91.018 Allergy to other foods; Z91.013 Allergy to seafood; Z88.2 Allergy status to sulfonamides; Z88.8 Allergy status to other drugs, medicaments and biological substances; Z91.048 Other nonmedicinal substance allergy status
CPT/HCPCS: 96376 ×3; 96361 ×4; 96365; 96375 ×2; 99285; 36415; 87338; 80053 ×2; 80048; 83605 ×2; 83690; 84484; 85025 ×3; 85027; 82272; 81001; 87324; 83993; 87086; 87045; 83630; 87046; 83036; 71046; 74177; G0378 ×3; J1200 ×2; J1100; J2930; J2405 ×3; J2916; J1170 ×4; C9113 ×3; Q9967

== ENCOUNTER 2023-03-21 16:36 | Observation (INO) | payer OTHER ==
[2023-03-21] MEDS ORDERED: ONDANSETRON 4 MG/2 ML VIAL IVP STA (19:07)
[2023-03-21] MEDS ORDERED: HYDROmorphone 0.5 MG/0.5 ML SYRINGE IVP STA (19:07)
--- NOTE | 2023-03-21 19:18 | ED ---
General Adult HPI - General Chief complaint: Abdominal Pain Stated complaint: abd pain Time Seen by Provider: 03/21/23 19:00 Source: patient, RN notes reviewed, old records reviewed Mode of arrival: ambulatory Limitations: no limitations - History of Present Illness Initial comments: This is a 52-year-old female presents emergency department stating that she has been having lower abdominal pain since 2016. Patient states that Dr. Crooks is seen her and she thinks that the patient is having adhesions that need to be released because the pain is been getting progressively worse over that time. Patient states the pain is mostly in the lower abdomen on both sides. Patient states she's nauseated but hasn't vomited. Patient denies any chest pain or difficulty breathing. Patient denies any fever chills per patient denies any diarrhea. Patient denies any dysuria hematuria urinary frequency. - Related Data Home Medications Medication Instructions Recorded Confirmed Cetirizine HCl [Zyrtec] 10 mg PO DAILY 06/13/18 03/21/23 Mirtazapine [Remeron] 15 mg PO HS 10/08/18 03/21/23 buPROPion HCL [Wellbutrin XL] 300 mg PO DAILY 12/24/18 03/21/23 LORazepam [Ativan] 0.5 mg PO QID PRN 04/23/19 03/21/23 Propranolol HCl [Inderal Xl] 80 mg PO DAILY PRN 04/23/19 03/21/23 Gabapentin 300 mg PO TID 02/28/22 03/21/23 Insulin Aspart [NovoLOG Flexpen] See Protocol SQ AC-TID 02/28/22 03/21/23 Rizatriptan Odt [Maxalt MECHANICS SUPERVISOR] 10 mg PO BID PRN 02/28/22 03/21/23 metFORMIN HCL ER [Glucophage XR] 1,000 mg PO TID 02/28/22 03/21/23 Furosemide [Lasix] 20 mg PO DAILY 02/16/23 03/21/23 Ondansetron [Zofran] 4 mg PO Q8HR PRN 02/16/23 03/21/23 Pioglitazone [Actos] 30 mg PO DAILY 02/16/23 03/21/23 Tamsulosin [Flomax] 0.4 mg PO HS 02/16/23 03/21/23 Zolpidem [Ambien] 10 mg PO HS PRN 02/16/23 03/21/23 Simvastatin [Zocor] 80 mg PO DAILY 02/28/23 03/21/23 Dicyclomine [Bentyl] 10 mg PO BID 03/21/23 03/21/23 Dulaglutide [Trulicity] 1.5 mg SQ MO 03/21/23 03/21/23 Escitalopram [Lexapro] 20 mg PO DAILY PRN 03/21/23 03/21/23 Allergies Allergy/AdvReac Type Severity Reaction Status Date / Time oxycodone [From Percocet] Allergy Unknown Swelling; Verified 03/21/23 18:58 (WAS ABLE TO TAKE ALONG WITH BENADRYL) apricot Allergy Dyspnea Verified 03/21/23 18:58 barium sulfate Allergy Anaphylaxis Verified 03/21/23 18:58 [From Readi-Cat] codeine Allergy Anaphylaxis Verified 03/21/23 18:58 fentanyl Allergy Rash/Hives Verified 03/21/23 18:58 hydrocodone [From Lortab] Allergy Swelling Verified 03/21/23 18:58 Iodinated Contrast Media Allergy Anaphylaxis Verified 03/21/23 18:58 iodine Allergy Rash/Hives Verified 03/21/23 18:58 iron Allergy Swelling Verified 03/21/23 18:58 levofloxacin [From Levaquin] Allergy Swelling Verified 03/21/23 18:58 morphine Allergy Rash/Hives, Verified 03/21/23 18:58 Nausea/Vomiting peach Allergy Swelling Verified 03/21/23 18:58 peanut Allergy Swelling Verified 03/21/23 18:58 peanut oil Allergy Anaphylaxis Verified 03/21/23 18:58 shellfish derived [Shellfish] Allergy Anaphylaxis Verified 03/21/23 18:58 strawberry Allergy Anaphylaxis Verified 03/21/23 18:58 sucralfate [From Carafate] Allergy Swelling Verified 03/21/23 18:58 Sulfa (Sulfonamide Allergy Anaphylaxis Verified 03/21/23 18:58 Antibiotics) sulfamethoxazole Allergy Anaphylaxis Verified 03/21/23 18:58 [From Bactrim] tree nut [Nut] Allergy Swelling Verified 03/21/23 18:58 trimethoprim [From Bactrim] Allergy Anaphylaxis Verified 03/21/23 18:58 metronidazole [From Flagyl] AdvReac Unknown Verified 03/21/23 18:58 Review of Systems ROS Statement: Those systems with pertinent positive or pertinent negative responses have been documented in the HPI. ROS Other: All systems not noted in ROS Statement are negative. Past Medical History Past Medical History: Asthma, Cancer, CVA/TIA, Diabetes Mellitus, Fibromyalgia, GERD/Reflux, Hyperlipidemia, Osteoarthritis (OA), Pneumonia Additional Past Medical History / Comment(s): Had Iron infusions in Apr 2019. Hx TIA 2016. Diabetic neuropathy eli feet, migraines, cervical disc disease, DDD, eli tinnitis, arthiritis bilateral shoulders, IBS, HX R arm fx yrs ago, R ovarian cyst, hiatal hernia, UTIs, urinary calculus, pancreatitis x 2, stomach ulcer. Hx cervical cancer. COVID 08/2020 History of Any Multi-Drug Resistant Organisms: C-DIFF Date of last positivie culture/infection: 2015 MDRO Source:: None Past Surgical History: Appendectomy, Bariatric Surgery, Cholecystectomy, Hysterectomy, Tonsillectomy Additional Past Surgical History / Comment(s): 2010 felix-en-Y, fistula repair 2011, 2011 gastric bypass revision, bowel resection, lap gastrojejunostomy anastamosis revision, EGD and colonoscopy, cone bx-cervical cancer removed with cryo, L fallopian tube removed due to cyst, picc line in and out, CERVICAL FUSION 12/21/16. Past Anesthesia/Blood Transfusion Reactions: Family History of Problems w/ Anesthesia, Motion Sickness, Postoperative Nausea & Vomiting (PONV) Additional Past Anesthesia/Blood Transfusion Reaction / Comment(s): Pt states she has never recieved blood. FAMILY HX PONV. Past Psychological History: Anxiety, Depression Smoking Status: Never smoker Past Alcohol Use History: None Reported Past Drug Use History: None Reported - Past Family History Brother(s) Family Medical History: Deep Vein Thrombosis (DVT) Father Family Medical History: Cancer, Deep Vein Thrombosis (DVT), Pulmonary Embolus Additional Family Medical History / Comment(s): Father had poss colon and lung cancer and at age 73yrs. Mother Family Medical History: Coronary Artery Disease (CAD), Diabetes Mellitus, Deep Vein Thrombosis (DVT), Hypertension, Pulmonary Embolus Additional Family Medical History / Comment(s): Mother is alive and 73 yrs old. General Exam - General Exam Comments Initial Comments: GENERAL: Patient is well-developed and well-nourished. Patient is nontoxic and well- hydrated and is in mild distress. ENT: Neck is soft and supple. No significant lymphadenopathy is noted. Oropharynx is clear. Moist mucous membranes. Neck has full range of motion without eliciting any pain. EYES: The sclera were anicteric and conjunctiva were pink and moist. Extraocular movements were intact and pupils were equal round and reactive to light. Eyelids were unremarkable. PULMONARY: Unlabored respirations. Good breath sounds bilaterally. No audible rales rho nchi or wheezing was noted. CARDIOVASCULAR: There is a regular rate and rhythm without any murmurs gallops or rubs. ABDOMEN: Lower abdomen is mildly tender SKIN: Skin is clear with no lesions or rashes and otherwise unremarkable. NEUROLOGIC: Patient is alert and oriented x3. Cranial nerves II through XII are grossly intact. Motor and sensory are also intact. Normal speech, volume and content. Symmetrical smile. MUSCULOSKELETAL: Normal extremities with adequate strength and full range of motion. LYMPHATICS: No significant lymphadenopathy is noted PSYCHIATRIC: Normal psychiatric evaluation. Limitations: no limitations Course Vital Signs 03/21/23 16:57 Temperature 98.0 F Pulse Rate 120 H Respiratory 20 Rate Blood Pressure 114/77 O2 Sat by Pulse 97 Oximetry Medical Decision Making - Medical Decision Making EKG is interpreted by myself shows a sinus tachycardia at 112 bpm LA interval is 164 QRS is 85 Q-T intervals 2 through 7 QTC is 43. Patient's EKG shows no ST segment elevation or depression. Was pt. sent in by a medical professional or institution (, PA, BINGO ATTENDANT, urgent care, hospital, or fci...) When possible be specific @ -Dr. Crooks since patient Did you speak to anyone other than the patient for history (EMS, parent, family, police, friend...)? What history was obtained from this source @ -I spoke with Dr. Crooks about this patient's history Did you review nursing and triage notes (agree or disagree)? Why? @ -I reviewed and agree with nursing and triage notes Were old charts reviewed (outside hosp., previous admission, EMS record, old EKG, old radiological studies, urgent care reports/EKG's, fci records)? Report findings @ -No old charts were reviewed Differential Diagnosis (chest pain, altered mental status, abdominal pain women, abdominal pain men, vaginal bleeding, weakness, fever, dyspnea, syncope, hea dache, dizziness, GI bleed, back pain, seizure, CVA, palpatations, mental health, musculoskeletal)? @ -DM differential abdominal pain EKG interpreted by me (3pts min.). @ -None X-rays interpreted by me (1pt min.). @ -None done CT interpreted by me (1pt min.). @ -None done U/S interpreted by me (1pt. min.). @ -None done What testing was considered but not performed or refused? (CT, X-rays, U/S, labs)? Why? @ -None What meds were considered but not given or refused? Why? @ -None Did you discuss the management of the patient with other professionals (professionals i.e. DrSara, PA, BINGO ATTENDANT, lab, RT, psych nurse, social insurance adviser, machine tool builder, teacher, correction officer reformatory, rn case manager)? Give summary @ -Spoke with Dr. Crooks and she agreed to admit the patient admitted the patient wrote admitting orders. Was smoking cessation discussed for >3mins.? @ -No Was critical care preformed (if so, how long)? @ -No Were there social determinants of health that impacted care today? How? (Homelessness, low income, unemployed, alcoholism, drug addiction, transportation, low edu. Level, literacy, decrease access to med. care, care home, rehab)? @ -No Was there de-escalation of care discussed even if they declined (Discuss DNR or withdrawal of care, Hospice)? DNR status @ -No What co-morbidities impacted this encounter? (DM, HTN, Smoking, COPD, CAD, Cancer, CVA, ARF, Chemo, Hep., AIDS, mental health diagnosis, sleep apnea, morbid obesity)? @ -None Was patient admitted / discharged? Hospital course, mention meds given and r oute, prescriptions, significant lab abnormalities, going to OR and other pertinent info. @ -Patient had lab work done in the emergency department patient had abdominal pain for which she was given some Dilaudid and Zofran for her nausea and admitted the patient and I wrote admitting orders. Undiagnosed new problem with uncertain prognosis? @ -No Drug Therapy requiring intensive monitoring for toxicity (Heparin, Nitro, Insulin, Cardizem)? @ -No Were any procedures done? @ -No Diagnosis/symptom? @ -Abdominal pain Acute, or Chronic, or Acute on Chronic? @ -Acute Uncomplicated (without systemic symptoms) or Complicated (systemic symptoms)? @ -Complicated Side effects of treatment? @ -No Exacerbation, Progression, or Severe Exacerbation? @ -No Poses a threat to life or bodily function? How? (Chest pain, USA, PR, pneumonia, PE, COPD, DKA, ARF, appy, cholecystitis, CVA, Diverticulitis, Homicidal, Suicidal, threat to staff... and all critical care pts) @ -No Disposition Clinical Impression: Abdominal pain Disposition: ADMITTED IP TO THIS HOSP Time of Disposition: 19:18
[2023-03-21] MEDS ORDERED: SODIUM CHLORIDE 0.9% 1,000 ML IV ONE ×2 (19:19)
[2023-03-21] MEDS ORDERED: HYDROmorphone 0.5 MG/0.5 ML SYRINGE IVP PRN (19:20)
[2023-03-21 19:32] LABS: Appearance,Urine Cloudy (Clear); Bilirubin,Urine Negative (Negative); Blood,Urine Negative (Negative); Color,Urine Yellow; Glucose,Urine (UA) Negative (Negative); Hyaline Casts,Urine 25 /lpf (0-2); Ketones,Urine Negative (Negative); Leukocyte Esterase,Urine Large (Negative); Mucus,Urine Occasional /hpf; Nitrite,Urine Negative (Negative); Protein,Urine Negative (Negative); RBC,Urine 2 /hpf (0-5); Specific Gravity,Urine 1.013 (1.001-1.035); Squamous Epithelial Cell,Urine 1 /hpf (0-4); Urobilinogen,Urine <2.0 mg/dL (<2.0); WBC,Urine 27 /hpf (0-5)
[2023-03-21 19:44] LABS: Anisocytosis Slight; Basophils # (A) 0.1 k/uL (0-0.2); Basophils % (A) 1 %; Eosinophils # (A) 0.2 k/uL (0-0.7); Eosinophils % (A) 2 %; Hypochromasia Slight; Lymphocytes # (A) 4.7 k/uL (1.0-4.8); Lymphocytes % (A) 39 %; MCH 24.2 pg (25.0-35.0); MCHC 32.3 g/dL (31.0-37.0); MCV 74.7 fL (80.0-100.0); Mean Platelet Volume 7.6; Microcytosis Moderate; Monocytes # (A) 0.5 k/uL (0-1.0); Monocytes % (A) 4 %; Neutrophils # (A) 6.5 k/uL (1.3-7.7); Neutrophils % (A) 53 %; Platelet Count 382 k/uL (150-450); RBC 5.62 m/uL (3.80-5.40); RDW 18.7 % (11.5-15.5); WBC 12.3 k/uL (3.8-10.6)
[2023-03-21 19:48] LABS: HGB 13.6 gm/dL (11.4-16.0)
[2023-03-21 19:57] LABS: ALT 41 U/L (4-34); AST 50 U/L (14-36); African American GFR (CKD) >90 (>60 ml/min/1.73 sqM); Albumin 4.9 g/dL (3.5-5.0); Alkaline Phosphatase 136 U/L (38-126); Amylase 44 U/L (30-110); Anion Gap 13 mmol/L; Blood Urea Nitrogen 18 mg/dL (7-17); Calcium 9.7 mg/dL (8.4-10.2); Carbon Dioxide 23 mmol/L (22-30); Chloride 99 mmol/L (98-107); Glucose 258 mg/dL (74-99); Lipase 65 U/L (23-300); Non-African American GFR(CKD) >90 (>60 ml/min/1.73 sqM); Potassium 3.6 mmol/L (3.5-5.1); Sodium 135 mmol/L (137-145); Total Bilirubin 0.9 mg/dL (0.2-1.3); Total Protein 8.6 g/dL (6.3-8.2)
[2023-03-21] MEDS ORDERED: cefTRIAXone IN SWFI 1,000 MG/10 ML SYRINGE IVP STA (20:13)
[2023-03-21] MEDS: SODIUM CHLORIDE 0.9% 1,000 ML IV SCH (20:32)
[2023-03-22] MEDS ORDERED: HYDROmorphone 1 MG/ML 1 ML SYRINGE IM PRN (00:49)
[2023-03-22] MEDS ORDERED: SODIUM CHLORIDE 0.9% 2,000 ML IV ONE (00:51)
[2023-03-22] MEDS: HYDROmorphone 1 MG/ML 1 ML SYRINGE IVP PRN ×3 (01:03→13:58)
[2023-03-22] MEDS: SODIUM CHLORIDE 0.9% 1,000 ML IV SCH ×2 (08:07→22:25)
[2023-03-22] MEDS: ACETAMINOPHEN IV (For NPO) 1,000 MG in EMPTY BAG 1 BAG IVPB SCH ×3 (11:34→22:18)
--- NOTE | 2023-03-22 11:39 | CT ---
EXAMINATION TYPE: CT abdomen pelvis wo con CT DLP: 901.1 mGycm, Automated exposure control for dose reduction was used. DATE OF EXAM: 03/22/2023 11:12 AM COMPARISON: 02/28/2023 CLINICAL INDICATION:Female, 52 years old with history of abdominal pain; TECHNIQUE: Axial CT of the abdomen and pelvis. Sagittal and coronal reformats were created on a [employer] workstation. Contrast used: mL of , (none if empty) Oral contrast used: without Oral Contrast (none if empty) FINDINGS: LOWER CHEST: Unremarkable ABDOMEN LIVER: Unremarkable GALLBLADDER AND BILE DUCTS: Gallbladder is surgically absent with mild intrahepatic and extra hepatic biliary dilatation likely physiologic and a postcholecystectomy change. No evidence of choledocholit hiasis. PANCREAS: Unremarkable. SPLEEN: Unremarkable. ADRENAL GLANDS: Unremarkable. KIDNEYS AND URETERS: No evidence of hydronephrosis or renal calculus. The ureters are unremarkable. PELVIS BLADDER: Unremarkable REPRODUCTIVE: Unremarkable. ABDOMEN & PELVIS STOMACH AND BOWEL: No evidence of bowel obstruction. Postsurgical changes to the stomach. Suture seen scattered throughout the left abdomen and the upper abdomen near the gastroesophageal junction. PERITONEUM/RETROPERITONEUM: No evidence of pneumoperitoneum or free fluid. VASCULATURE: No evidence of aortic aneurysm. MUSCULOSKELETAL: No acute osseous abnormalities LYMPH NODES: No gross evidence for lymphadenopathy. SOFT TISSUE/ABDOMINAL WALL: Unremarkable IMPRESSION: Post surgical changes of bowel. There is no evidence for bowel obstruction. No evidence for acute abd ominal process.
[2023-03-22] MEDS ORDERED: ACETAMINOPHEN IV (For NPO) 1,000 MG in EMPTY BAG 1 BAG IVPB SCH (12:00)
--- NOTE | 2023-03-22 12:03 | P.GSHP ---
History of Present Illness H&P Date: 03/22/23 CHIEF COMPLAINT: Abdominal pain HISTORY OF PRESENT ILLNESS: This is a 52-year-old female who presented to the hospital with complaints of a lower abdominal pain. Patient reports she's had pain since 2016. However it has continued to worsen. Patient had been having diarrhea this has improved. She does report some nausea. She describes the pain as burning and aching. At times it's also stabbing. She does have a past surgical history but does include Sabino-en-Y gastric bypass, cholecystectomy and hysterectomy. Patient had computed tomography scan abdomen and pelvis due to severe abdominal pain. Results show no evidence of acute abdominal process. Patient denies any urinary symptoms. He denies any fever chills or sweats. Patient had EGD with dilation completed on 02/21/2023. Colonoscopy in 2019 showed internal hemorrhoids. PAST MEDICAL HISTORY: See list. PAST SURGICAL HISTORY: See list. MEDICATIONS: See list. ALLERGIES: See list. SOCIAL HISTORY: No illicit drug use. REVIEW OF SYSTEMS: CONSTITUTIONAL: Denies fever or chills. HEENT: Denies blurred vision, vision changes, or eye pain. Denies hemoptysis ENDOCRINE: Denies heat or cold intolerance. CARDIOVASCULAR: Denies chest pain or pressure. RESPIRATORY: No shortness of breath. GASTROINTESTINAL: Please refer to HPI NEURO: Denies history of seizures. PSYCH: No depression or suicidal ideation HEMATOLOGIC: Denies bleeding disorders. LYMPHATIC: The patient denies any lumps and bumps around the neck. GENITOURINARY: Denies any blood in urine or increased urinary frequency. MUSCULOSKELETAL: Denies myalgias. Denies joint swelling. Denies decreased range of motion beyond patients baseline. SKIN: Denies pruitis. Denies rash. PHYSICAL EXAM: VITAL SIGNS: Reviewed GENERAL: Well-developed in no acute distress. HEENT: No sclera icterus. Extraocular movements grossly intact. Moist buccal mucosa. Head is atraumatic, normocephalic. Hears conversational speech. No nasal drainage. NECK: Supple without lymphadenopathy. CHEST: Non-labored respirations and equal bilateral excursions. CARDIOVASCULAR: Palpable 2+ radial pulses. ABDOMEN: Soft. Nondistended. Tender with palpation of lower abdomen MUSCULOSKELETAL: No clubbing or cyanosis. NEUROLOGIC: No focal or lateralizing signs. Cranial nerves II through XII grossly intact. PSYCH: Appropriate affect. Alert and oriented to person, place and time. SKIN: Well perfused. Good skin turgor. LABORATORY DATA: WBC is 12.3 Hgb 13.6 platelets 382 Sodium is 135 potassium 3.6 creatinine 0.73 Total bilirubin 0.9 AST 50 ALT 41 alk phos 136 Troponin negative lipase 65 IMAGING: Computed tomography scan postsurgical changes of bowel. There is no evidence for bowel obstruction. No evidence for acute abdominal process. ASSESSMENT: 1. Intractable Lower abdominal pain With concerns for possible adhesions contributing to patient's abdominal pain 2. History of Sabino-en-Y gastric bypass PLAN: -Patient scheduled for Robotic lysis of adhesions with Dr. Contreras -Keep patient nothing by mouth -Continue IV fluids -Continue supportive care Physician Egyptologist note has been reviewed by physician. Signing provider agrees with the documented findings, assessment, and plan of care. Past Medical History Past Medical History: Asthma, Cancer, CVA/TIA, Diabetes Mellitus, Fibromyalgia, GERD/Reflux, Hyperlipidemia, Osteoarthritis (OA), Pneumonia Additional Past Medical History / Comment(s): Had Iron infusions in Apr 2019. Hx TIA 2015. Diabetic neuropathy eli feet, migraines, cervical disc disease, DDD, eli tinnitis, arthiritis bilateral shoulders, IBS, HX R arm fx yrs ago, R ovarian cyst, hiatal hernia, UTIs, urinary calculus, pancreatitis x 2, stomach ulcer. Hx cervical cancer. COVID 08/2020 History of Any Multi-Drug Resistant Organisms: C-DIFF Date of last positivie culture/infection: 2015 MDRO Source:: None Past Surgical History: Appendectomy, Bariatric Surgery, Cholecystectomy, Hysterectomy, Tonsillectomy Additional Past Surgical History / Comment(s): 2010 sabino-en-Y, fistula repair 2011, 2011 gastric bypass revision, bowel resection, lap gastrojejunostomy anastamosis revision, EGD and colonoscopy, cone bx-cervical cancer removed with cryo, L fallopian tube removed due to cyst, picc line in and out, CERVICAL FUSION 12/21/16. Past Anesthesia/Blood Transfusion Reactions: Family History of Problems w/ Anesthesia, Motion Sickness, Postoperative Nausea & Vomiting (PONV) Additional Past Anesthesia/Blood Transfusion Reaction / Comment(s): Pt states she has never recieved blood. FAMILY HX PONV. Past Psychological History: Anxiety, Depression Smoking Status: Never smoker Past Alcohol Use History: None Reported Past Drug Use History: None Reported - Past Family History Brother(s) Family Medical History: Deep Vein Thrombosis (DVT) Father Family Medical History: Cancer, Deep Vein Thrombosis (DVT), Pulmonary Embolus Additional Family Medical History / Comment(s): Father had poss colon and lung cancer and at age 73yrs. Mother Family Medical History: Coronary Artery Disease (CAD), Diabetes Mellitus, Deep Vein Thrombosis (DVT), Hypertension, Pulmonary Embolus Additional Family Medical History / Comment(s): Mother is alive and 73 yrs old. Medications and Allergies Home Medications Medication Instructions Recorded Confirmed Type Cetirizine HCl [Zyrtec] 10 mg PO DAILY 06/13/18 03/21/23 History Mirtazapine [Remeron] 15 mg PO HS 10/08/18 03/21/23 History buPROPion HCL [Wellbutrin XL] 300 mg PO DAILY 12/24/18 03/21/23 History LORazepam [Ativan] 0.5 mg PO QID PRN 04/23/19 03/21/23 History Propranolol HCl [Inderal Xl] 80 mg PO DAILY PRN 04/23/19 03/21/23 History Gabapentin 300 mg PO TID 02/28/22 03/21/23 History Insulin Aspart [NovoLOG Flexpen] See Protocol SQ AC-TID 02/28/22 03/21/23 History Rizatriptan Odt [Maxalt FACILITIES OPERATIONS TECHNICIAN] 10 mg PO BID PRN 02/28/22 03/21/23 History metFORMIN HCL ER [Glucophage XR] 1,000 mg PO TID 02/28/22 03/21/23 History Furosemide [Lasix] 20 mg PO DAILY 02/16/23 03/21/23 History Ondansetron [Zofran] 4 mg PO Q8HR PRN 02/16/23 03/21/23 History Pioglitazone [Actos] 30 mg PO DAILY 02/16/23 03/21/23 History Tamsulosin [Flomax] 0.4 mg PO HS 02/16/23 03/21/23 History Zolpidem [Ambien] 10 mg PO HS PRN 02/16/23 03/21/23 History Simvastatin [Zocor] 80 mg PO DAILY 02/28/23 03/21/23 History Dicyclomine [Bentyl] 10 mg PO BID 03/21/23 03/21/23 History Dulaglutide [Trulicity] 1.5 mg SQ MO 03/21/23 03/21/23 History Escitalopram [Lexapro] 20 mg PO DAILY PRN 03/21/23 03/21/23 History Allergies Allergy/AdvReac Type Severity Reaction Status Date / Time oxycodone [From Percocet] Allergy Unknown Swelling; Verified 03/21/23 18:58 (WAS ABLE TO TAKE ALONG WITH BENADRYL) apricot Allergy Dyspnea Verified 03/21/23 18:58 barium sulfate Allergy Anaphylaxis Verified 03/21/23 18:58 [From Readi-Cat] codeine Allergy Anaphylaxis Verified 03/21/23 18:58 fentanyl Allergy Rash/Hives Verified 03/21/23 18:58 hydrocodone [From Lortab] Allergy Swelling Verified 03/21/23 18:58 Iodinated Contrast Media Allergy Anaphylaxis Verified 03/21/23 18:58 iodine Allergy Rash/Hives Verified 03/21/23 18:58 iron Allergy Swelling Verified 03/21/23 18:58 levofloxacin [From Levaquin] Allergy Swelling Verified 03/21/23 18:58 morphine Allergy Rash/Hives, Verified 03/21/23 18:58 Nausea/Vomiting peach Allergy Swelling Verified 03/21/23 18:58 peanut Allergy Swelling Verified 03/21/23 18:58 peanut oil Allergy Anaphylaxis Verified 03/21/23 18:58 shellfish derived [Shellfish] Allergy Anaphylaxis Verified 03/21/23 18:58 strawberry Allergy Anaphylaxis Verified 03/21/23 18:58 sucralfate [From Carafate] Allergy Swelling Verified 03/21/23 18:58 Sulfa (Sulfonamide Allergy Anaphylaxis Verified 03/21/23 18:58 Antibiotics) sulfamethoxazole Allergy Anaphylaxis Verified 03/21/23 18:58 [From Bactrim] tree nut [Nut] Allergy Swelling Verified 03/21/23 18:58 trimethoprim [From Bactrim] Allergy Anaphylaxis Verified 03/21/23 18:58 metronidazole [From Flagyl] AdvReac Unknown Verified 03/21/23 18:58 Surgical - Exam Vital Signs Temp Pulse Resp BP Pulse Ox 98.0 F 120 H 20 114/77 97 03/21/23 16:57 03/21/23 16:57 03/21/23 16:57 03/21/23 16:57 03/21/23 16:57 Results - Labs 03/21/23 19:35 03/21/23 19:35 Abnormal Lab Results - Last 24 Hours (Table) 03/21/23 03/21/23 03/21/23 Range/Units 19:14 19:35 19:35 WBC 12.3 H (3.8-10.6) k/uL RBC 5.62 H (3.80-5.40) m/uL MCV 74.7 L (80.0-100.0) fL MCH 24.2 L (25.0-35.0) pg RDW 18.7 H (11.5-15.5) % Sodium 135 L (137-145) mmol/L BUN 18 H (7-17) mg/dL Glucose 258 H (74-99) mg/dL AST 50 H (14-36) U/L ALT 41 H (4-34) U/L Alkaline Phosphatase 136 H (38-126) U/L Total Protein 8.6 H (6.3-8.2) g/dL Urine Appearance Cloudy H (Clear) Ur Leukocyte Esterase Large H (Negative) Urine WBC 27 H (0-5) /hpf Urine WBC Clumps Rare H (None) /hpf Hyaline Casts 25 H (0-2) /lpf Urine Mucus Occasional H (None) /hpf Diabetes panel 03/21/23 Range/Units 19:35 Sodium 135 L (137-145) mmol/L Potassium 3.6 (3.5-5.1) mmol/L Chloride 99 (98-107) mmol/L Carbon Dioxide 23 (22-30) mmol/L BUN 18 H (7-17) mg/dL Creatinine 0.73 (0.52-1.04) mg/dL Glucose 258 H (74-99) mg/dL Calcium 9.7 (8.4-10.2) mg/dL AST 50 H (14-36) U/L ALT 41 H (4-34) U/L Alkaline Phosphatase 136 H (38-126) U/L Total Protein 8.6 H (6.3-8.2) g/dL Albumin 4.9 (3.5-5.0) g/dL Calcium panel 03/21/23 Range/Units 19:35 Calcium 9.7 (8.4-10.2) mg/dL Albumin 4.9 (3.5-5.0) g/dL Pituitary panel 03/21/23 Range/Units 19:35 Sodium 135 L (137-145) mmol/L Potassium 3.6 (3.5-5.1) mmol/L Chloride 99 (98-107) mmol/L Carbon Dioxide 23 (22-30) mmol/L BUN 18 H (7-17) mg/dL Creatinine 0.73 (0.52-1.04) mg/dL Glucose 258 H (74-99) mg/dL Calcium 9.7 (8.4-10.2) mg/dL Adrenal panel 03/21/23 Range/Units 19:35 Sodium 135 L (137-145) mmol/L Potassium 3.6 (3.5-5.1) mmol/L Chloride 99 (98-107) mmol/L Carbon Dioxide 23 (22-30) mmol/L BUN 18 H (7-17) mg/dL Creatinine 0.73 (0.52-1.04) mg/dL Glucose 258 H (74-99) mg/dL Calcium 9.7 (8.4-10.2) mg/dL Total Bilirubin 0.9 (0.2-1.3) mg/dL AST 50 H (14-36) U/L ALT 41 H (4-34) U/L Alkaline Phosphatase 136 H (38-126) U/L Total Protein 8.6 H (6.3-8.2) g/dL Albumin 4.9 (3.5-5.0) g/dL
[2023-03-22] MEDS ORDERED: LACTATED RINGERS 1,000 ML IV ONE ×2 (15:21→18:17)
[2023-03-22] MEDS ORDERED: ONDANSETRON 4 MG/2 ML VIAL IVP ONE ×4 (15:21→17:15)
[2023-03-22 15:32] LABS: Glucose,Whole Blood 151 mg/dL (70-110)
[2023-03-22] MEDS ORDERED: NEOSTIGMINE 1 MG/ML 10 ML VIAL ONE (15:44)
[2023-03-22] MEDS ORDERED: HYDROmorphone (PF) 1 MG/ML ONE (15:44)
[2023-03-22] MEDS ORDERED: LIDOCAINE 2% INJ 20 MG/ML (2 ML VIAL) ONE (15:44)
[2023-03-22] MEDS ORDERED: GLYCOPYRROLATE 0.2 MG/ML 2 ML VIAL ONE (15:44)
[2023-03-22] MEDS ORDERED: PROPOFOL 10 MG/ML 20 ML VIAL IV ONE (15:44)
[2023-03-22] MEDS ORDERED: ROCURONIUM 10 MG/ML (5 ML VIAL) IV ONE (15:44)
[2023-03-22] MEDS ORDERED: SUCCINYLCHOLINE CHLORIDE 200 MG/10 ML VIAL IV ONE (15:44)
[2023-03-22] MEDS ORDERED: MIDAZOLAM 2 MG/2 ML VIAL ONE (15:44)
[2023-03-22] MEDS ORDERED: HEPARIN SODIUM,PORCINE/PF 5,000 UNIT/0.5 ML SYRINGE SQ ONE (15:46)
[2023-03-22] MEDS ORDERED: HEPARIN SODIUM,PORCINE 5,000 UNIT/ML 1 ML VIAL SQ ONE (15:48)
[2023-03-22] MEDS ORDERED: SODIUM CHLORIDE 0.9% 50 ML with ceFAZolin 2,000 MG IV ONE ×2 (15:49)
[2023-03-22] MEDS ORDERED: ceFAZolin 1,000 MG VIAL ONE (15:55)
[2023-03-22] MEDS ORDERED: SODIUM CHLORIDE 0.9% 100 ML BAG ONE (15:55)
[2023-03-22] MEDS ORDERED: BUPIVACAINE (PF) 0.25% 30 ML VIAL SQ ONE ×2 (16:06→16:21)
[2023-03-22 17:19] LABS: Glucose,Whole Blood 167 mg/dL (70-110)
[2023-03-22] MEDS ORDERED: METOCLOPRAMIDE 5 MG/ML 2 ML VIAL IVP ONE (17:29)
[2023-03-22] MEDS ORDERED: HYDROmorphone 0.5 MG/0.5 ML SYRINGE IVP ONE (17:49)
[2023-03-22] MEDS ORDERED: NALOXONE 0.4 MG/ML 1 ML VIAL IV PRN (17:54)
[2023-03-22] MEDS ORDERED: HYDROmorphone 1 MG/ML 1 ML SYRINGE IVP PRN (17:55)
[2023-03-22] MEDS ORDERED: ESCITALOPRAM 20 MG TAB PO PRN (17:56)
[2023-03-22] MEDS ORDERED: PROPRANOLOL LA 80 MG CAP.SA.24H PO PRN (17:56)
[2023-03-22] MEDS ORDERED: LORazepam 0.5 MG TAB PO PRN (17:56)
[2023-03-22] MEDS ORDERED: ZOLPIDEM 5 MG TAB PO PRN (17:56)
[2023-03-22] MEDS ORDERED: SUMAtriptan succinate 50 MG TAB PO PRN (17:56)
[2023-03-22] MEDS ORDERED: droPERidol 5 MG/2 ML VIAL IVP ONE (18:18)
--- NOTE | 2023-03-22 19:00 | P.OP ---
Date of Procedure: 03/22/23 Indications for Procedure: SURGEON: KRYSTIN SUAREZ MD PREOPERATIVE DIAGNOSES: 1. Intractable abdominal pain, right upper quadrant, bilateral lower abdomen 2. History of multiple abdominal surgeries 3. Diabetes type 2, [id number] 4. Fibromyalgia POSTOPERATIVE DIAGNOSES: 1. Intractable abdominal pain, right upper quadrant, bilateral lower abdomen 2. History of multiple abdominal surgeries 3. Diabetes type 2, [id number] 4. Fibromyalgia OPERATION: 1. Robotic-assisted da Samson Xi laparoscopic with lysis of adhesions ESTIMATED BLOOD LOSS: 5 mL. SPECIMENS REMOVED: None. COMPLICATIONS: None. OPERATIVE FINDINGS: 1. No inguinal hernia identified 2. Peritoneal adhesion right upper quadrant/abdominal wall lysed 3. Small bowel unremarkable with divided previous jejunojejunostomy identified 4. Severe pelvic adhesions involving sigmoid colon from previous hysterectomy lysed 5. Left lower quadrant pelvic adhesions lysed 6. Redundant sigmoid colon INDICATIONS: The patient is a 52-year-old female who presents with intractable abdominal pain. Surgical intervention with diagnostic laparoscopy, lysis of adhesions were described. Informed consent was obtained. Robotic assisted laparoscopic approach was described. Benefits and risks of the procedure including but not limited to bleeding, infection, injury to the biliary tree was described. Informed consent was obtained. DESCRIPTION OF PROCEDURE: Patient was brought to the operating room, placed in supine position. After general induction, the abdomen had been prepped and draped in standard sterile fashion. The robotic da Samson XI system was primed. After a timeout protocol was performed, the patient had been prepped and draped in standard sterile fashion. The robot was docked along the left lateral abdomen. Please note prior to docking of the robot; however, a 5 mm 0 degrees laparoscopic trocar entry was performed along the left upper quadrant. Next, three 8 mm robotic ports were placed along the upper abdomen. The camera 8-mm port was maintained along the epigastrium. Please note that the ports were placed at least 10 to 15 cm away from the target anatomy. Instruments including graspers and scissors with cautery were interchanged by the assistant signal maintainer. I had sat at the console. Greater omental adhesion from right fallopian tube to omentum was identified creating an internal hernia. The internal hernia was divided using scissors with cautery. Additionally, small endometrial deposit along the right peritoneum/fallopian tube was ablated with cautery. Attention was brought to the left ovary where cysts physiologic over 2 cm was identified and undisturbed. Three small clips less than 3 mm in size were found along the serosa of the fallopian tube and also undisturbed. The sigmoid colon was highly redundant creating an intermittent sigmoid colon volvulus. No large or small bowel obstruction was identified. Greater omental adhesion along the right upper quadrant was divided using scissors and cautery. The robot was undocked. All pneumoperitoneum and instruments were evacuated from the abdominal cavity. The incisions were reapproximated using 4-0 Monocryl in an interrupted subcuticular fashion. Please note along the trocar sites, local anesthetic was placed as a field block prior to insertion of all instruments. Exofin was applied to the skin. At the end of the procedure needle, sponge, and instrument count had been verified correct by the rn neurosurgical. The patient was transferred to postanesthesia care unit in stable condition.
[2023-03-22 20:44] LABS: Glucose,Whole Blood 208 mg/dL (70-110)
[2023-03-22] MEDS: HEPARIN SODIUM,PORCINE 5,000 UNIT/ML 1 ML VIAL SQ SCH (20:44)
[2023-03-22] MEDS: ONDANSETRON 4 MG/2 ML VIAL IVP PRN (20:44)
[2023-03-22] MEDS: GABAPENTIN 300 MG CAP PO SCH (20:45)
[2023-03-22] MEDS: metFORMIN 500 MG TAB PO SCH (20:45)
[2023-03-22] MEDS ORDERED: TAMSULOSIN 0.4 MG CAP.ER.24H PO SCH (21:00)
[2023-03-22] MEDS ORDERED: MIRTAZAPINE 15 MG TAB PO SCH (21:00)
[2023-03-22] MEDS: KETOROLAC 15 MG/ML 1 ML VIAL IVP SCH (21:48)
[2023-03-23] MEDS: KETOROLAC 15 MG/ML 1 ML VIAL IVP SCH ×3 (01:09→13:08)
[2023-03-23] MEDS: ACETAMINOPHEN IV (For NPO) 1,000 MG in EMPTY BAG 1 BAG IVPB SCH (05:00)
[2023-03-23 06:27] LABS: Glucose,Whole Blood 107 mg/dL (70-110)
[2023-03-23] MEDS: GABAPENTIN 300 MG CAP PO SCH (08:53)
[2023-03-23] MEDS: metFORMIN 500 MG TAB PO SCH (08:53)
[2023-03-23] MEDS: HEPARIN SODIUM,PORCINE 5,000 UNIT/ML 1 ML VIAL SQ SCH (08:54)
[2023-03-23] MEDS ORDERED: LORATADINE 10 MG TAB PO SCH (09:00)
[2023-03-23] MEDS ORDERED: buPROPion XL 300 MG TAB.ER.24H PO SCH (09:00)
[2023-03-23] MEDS ORDERED: PIOGLITAZONE 30 MG TAB PO SCH (09:00)
[2023-03-23] MEDS ORDERED: ATORVASTATIN 40 MG TAB PO SCH (09:00)
[2023-03-23 11:29] LABS: Glucose,Whole Blood 196 mg/dL (70-110)
--- NOTE | 2023-03-23 13:07 | P.DS ---
Providers Date of admission: 03/21/23 19:19 Expected date of discharge: 03/23/23 Attending physician: Osiris Contreras Primary care physician: [facility] Course: CHIEF COMPLAINT: Intractable abdominal pain HISTORY OF PRESENT ILLNESS: The patient is a 52-year-old female who presents with intractable abdominal pain personal history of multiple abdominal surgeries which change in bowel habits. She is status post extensive lysis of adhesions. She reports some appropriate upper abdominal pain. She is able to tolerate diet. ROS: No reports of nausea and vomiting. No bowel movements. No fevers or chills. No new chest pain. No productive sputum PHYSICAL EXAM: VITAL SIGNS: Reviewed CONSTITUTIONAL: Well developed and in no acute distress. EYES: Conjuctivae without sclera icterus. Extraocular movements grossly intact. HEAD, EARS, NOSE, THROAT: Moist buccal mucosa. Head is atraumatic, normocephalic. Hears conversational speech. No nasal drainage. RESPIRATORY: Non-labored respirations and equal bilateral excursions. CARDIOVASCULAR: Palpable 2+ radial pulses. ABDOMEN: Incisions clean dry and intact MUSCULOSKELETAL: No gross deformity of the lower extremities noted. No clubbing. No cyanosis. SKIN: Good skin turgor. Well perfused. NEUROLOGIC: Cranial nerves II through XII grossly intact. No focal or lateralizing signs. PSYCH: Appropriate affect. Alert and oriented to person, place and time. CLINICAL LABS: Reviewed. ASSESSMENT: 1. Intractable dumping due to intra-abdominal adhesions 2. Chronic pain syndrome 3. Diabetic neuropathy PLAN: 1. Overall patient stable for discharge 2. Follow-up with primary care provider for referral to a chronic pain specialist for diabetic neuropathy 3. Follow-up telehealth 1 week 4. Diet as tolerated 5. Patient was made aware and counseled that pain may still be present and will need further management with pain specialist Patient Condition at Discharge: Stable Plan - Discharge Summary Discharge Rx Participant: No New Discharge Prescriptions: New Ibuprofen [Motrin] 600 mg PO Q8HR PRN #30 tab PRN Reason: Pain Acetaminophen Tab [Tylenol Tab] 1,000 mg PO Q6HR PRN #30 tablet PRN Reason: Pain Continue Cetirizine HCl [Zyrtec] 10 mg PO DAILY Mirtazapine [Remeron] 15 mg PO HS buPROPion HCL [Wellbutrin XL] 300 mg PO DAILY Propranolol HCl [Inderal Xl] 80 mg PO DAILY PRN PRN Reason: Pain LORazepam [Ativan] 0.5 mg PO QID PRN PRN Reason: Anxiety Insulin Aspart [NovoLOG Flexpen] See Protocol SQ AC-TID metFORMIN HCL ER [Glucophage XR] 1,000 mg PO TID Rizatriptan Odt [Maxalt APARTMENT LEASING MANAGER] 10 mg PO BID PRN PRN Reason: Migraine Headache Tamsulosin [Flomax] 0.4 mg PO HS Furosemide [Lasix] 20 mg PO DAILY Simvastatin [Zocor] 80 mg PO DAILY Dulaglutide [Trulicity] 1.5 mg SQ MO Gabapentin 300 mg PO TID Zolpidem [Ambien] 10 mg PO HS PRN PRN Reason: Insomnia Pioglitazone [Actos] 30 mg PO DAILY Ondansetron [Zofran] 4 mg PO Q8HR PRN PRN Reason: Nausea Dicyclomine [Bentyl] 10 mg PO BID Escitalopram [Lexapro] 20 mg PO DAILY PRN PRN Reason: seasonal depression Discharge Medication List Cetirizine HCl [Zyrtec] 10 mg PO DAILY 06/13/18 [History] Mirtazapine [Remeron] 15 mg PO HS 10/08/18 [History] buPROPion HCL [Wellbutrin XL] 300 mg PO DAILY 12/24/18 [History] LORazepam [Ativan] 0.5 mg PO QID PRN 04/23/19 [History] Propranolol HCl [Inderal Xl] 80 mg PO DAILY PRN 04/23/19 [History] Gabapentin 300 mg PO TID 02/28/22 [History] Insulin Aspart [NovoLOG Flexpen] See Protocol SQ AC-TID 02/28/22 [History] Rizatriptan Odt [Maxalt APARTMENT LEASING MANAGER] 10 mg PO BID PRN 02/28/22 [History] metFORMIN HCL ER [Glucophage XR] 1,000 mg PO TID 02/28/22 [History] Furosemide [Lasix] 20 mg PO DAILY 02/16/23 [History] Ondansetron [Zofran] 4 mg PO Q8HR PRN 02/16/23 [History] Pioglitazone [Actos] 30 mg PO DAILY 02/16/23 [History] Tamsulosin [Flomax] 0.4 mg PO HS 02/16/23 [History] Zolpidem [Ambien] 10 mg PO HS PRN 02/16/23 [History] Simvastatin [Zocor] 80 mg PO DAILY 02/28/23 [History] Dicyclomine [Bentyl] 10 mg PO BID 03/21/23 [History] Dulaglutide [Trulicity] 1.5 mg SQ MO 03/21/23 [History] Escitalopram [Lexapro] 20 mg PO DAILY PRN 03/21/23 [History] Acetaminophen Tab [Tylenol Tab] 1,000 mg PO Q6HR PRN #30 tablet 03/23/23 [Rx] Ibuprofen [Motrin] 600 mg PO Q8HR PRN #30 tab 03/23/23 [Rx] Follow up Appointment(s)/Referral(s): Macy Knight MD [Primary Care Provider] - 1-2 days Osiris Contrears MD [STAFF PHYSICIAN] - 03/27/23 Patient Instructions/Handouts: Lysis of Abdominal Adhesions (GEN) Activity/Diet/Wound Care/Special Instructions: TELEHEALTH - DR WILL CALL YOU BETWEEN 8 am to 8 pm Using antibacterial soap. No lifting over 10 pounds 2 weeks, Apr 05, 2023 May shower. No bathtub soaks for 2 weeks, Apr 05, 2023 Wear abdominal binder daily for comfort except for showering. Use ice along incisions for today to prevent swelling. Take tylenol, aleve/ibuprofen, simethicone scheduled for 3 days for best pain relief Discharge Disposition: HOME SELF-CARE
[2023-03-23] MEDS: ONDANSETRON 4 MG/2 ML VIAL IVP PRN (13:08)
[2023-03-23 14:48] VITALS: BP 112/76; PULSE 100; RESP 15; TEMP 98.4
[2023-03-26] MEDS ORDERED: NON FORMULARY DRUG (Dulaglutide [Trulicity] 1.5 MG/0.5 ML Each) SQ SCH (09:00)
== END 2023-03-23 14:30 | disposition home or self-care (01) ==
LOC: EC 16:36 → 4SSUR 19:19 → INTOOBSV 19:19 → 4SSUR 03-22 17:37 → UNDODISIN 03-23 14:30
PROVIDERS: ADMIT Surgery Plastic and Reconstructive Surgery; ATTEND Surgery Plastic and Reconstructive Surgery
DX: R10.11 Right upper quadrant pain (principal); R10.31 Right lower quadrant pain; R10.32 Left lower quadrant pain; N73.6 Female pelvic peritoneal adhesions (postinfective); K56.2 Volvulus; N83.202 Unspecified ovarian cyst, left side; K46.9 Unspecified abdominal hernia without obstruction or gangrene; G89.4 Chronic pain syndrome; E11.40 Type 2 diabetes mellitus with diabetic neuropathy, unspecified; M79.7 Fibromyalgia; K21.9 Gastro-esophageal reflux disease without esophagitis; E78.5 Hyperlipidemia, unspecified; G43.909 Migraine, unspecified, not intractable, without status migrainosus; J45.909 Unspecified asthma, uncomplicated; F32.A Depression, unspecified; F41.9 Anxiety disorder, unspecified; Z86.73 Personal history of transient ischemic attack (TIA), and cerebral infarction without residual deficits; Z85.41 Personal history of malignant neoplasm of cervix uteri; Z90.49 Acquired absence of other specified parts of digestive tract; Z90.710 Acquired absence of both cervix and uterus; Z98.84 Bariatric surgery status; Z79.899 Other long term (current) drug therapy; Z79.4 Long term (current) use of insulin; Z79.85 Long-term (current) use of injectable non-insulin antidiabetic drugs; Z88.5 Allergy status to narcotic agent; Z88.2 Allergy status to sulfonamides
CPT/HCPCS: 44180; S2900; 74176; 80053; 81001; 82150; 83690; 84484; 85025; 87040; 87086; 93005; 96361; 96372; 96374; 96375; 96376; 99285

== ENCOUNTER → 2023-06-26 | Outpatient (CLI) | payer OTHER | END | disposition home or self-care (01) | LOC: LABWHC1 12:10 | PROVIDERS: ATTEND Internal Medicine | DX: E11.65 Type 2 diabetes mellitus with hyperglycemia (principal) | CPT/HCPCS: 36415; 82043; 82570; 83036 ==

== ENCOUNTER 2023-09-26 20:00 | Emergency (ER) | payer OTHER ==
[2023-09-26 20:11] VITALS: RESP 18; TEMP 98.4
--- NOTE | 2023-09-26 21:17 | ED ---
General Adult HPI - General Chief complaint: Animal Bite Stated complaint: dog bite 09.25.23 Time Seen by Provider: 09/26/23 20:21 Source: patient, RN notes reviewed Mode of arrival: ambulatory Limitations: no limitations - History of Present Illness Initial comments: 53-year-old female presents to the emergency department for evaluation of dog bite. Patient states that her pytaumm-nw-itn's dog bit her yesterday around 4 PM in the right upper arm and in her right side. She states that she believes that the dog is up to date on his rabies vaccine, dog is not acting rabid. She is up-to-date on her tetanus vaccine. She denies any other injury. Denies recent fever, chills. She reports that she cleaned the area well yesterday when it happened. - Related Data Home Medications Medication Instructions Recorded Confirmed Cetirizine HCl [Zyrtec] 10 mg PO DAILY 06/13/18 03/21/23 Mirtazapine [Remeron] 15 mg PO HS 10/08/18 03/21/23 buPROPion HCL [Wellbutrin XL] 300 mg PO DAILY 12/24/18 03/21/23 LORazepam [Ativan] 0.5 mg PO QID PRN 04/23/19 03/21/23 Propranolol HCl [Inderal Xl] 80 mg PO DAILY PRN 04/23/19 03/21/23 Gabapentin 300 mg PO TID 02/28/22 03/21/23 Insulin Aspart [NovoLOG Flexpen] See Protocol SQ AC-TID 02/28/22 03/21/23 Rizatriptan Odt [Maxalt OBSERVER HELPER] 10 mg PO BID PRN 02/28/22 03/21/23 metFORMIN HCL ER [Glucophage XR] 1,000 mg PO TID 02/28/22 03/21/23 Furosemide [Lasix] 20 mg PO DAILY 02/16/23 03/21/23 Ondansetron [Zofran] 4 mg PO Q8HR PRN 02/16/23 03/21/23 Pioglitazone [Actos] 30 mg PO DAILY 02/16/23 03/21/23 Tamsulosin [Flomax] 0.4 mg PO HS 02/16/23 03/21/23 Zolpidem [Ambien] 10 mg PO HS PRN 02/16/23 03/21/23 Simvastatin [Zocor] 80 mg PO DAILY 02/28/23 03/21/23 Dicyclomine [Bentyl] 10 mg PO BID 03/21/23 03/21/23 Dulaglutide [Trulicity] 1.5 mg SQ MO 03/21/23 03/21/23 Escitalopram [Lexapro] 20 mg PO DAILY PRN 03/21/23 03/21/23 Previous Rx's Medication Instructions Recorded Acetaminophen Tab [Tylenol Tab] 1,000 mg PO Q6HR PRN #30 tablet 03/23/23 Ibuprofen [Motrin] 600 mg PO Q8HR PRN #30 tab 03/23/23 Ondansetron Odt [Zofran Odt] 4 mg PO Q8HR PRN #10 tab 05/19/23 Amoxic-Pot Clav 875-125Mg 1 tab PO Q12HR #20 tab 09/26/23 [Augmentin 875-125] Allergies Allergy/AdvReac Type Severity Reaction Status Date / Time oxycodone [From Percocet] Allergy Unknown Swelling; Verified 09/26/23 20:09 (WAS ABLE TO TAKE ALONG WITH BENADRYL) apricot Allergy Dyspnea Verified 09/26/23 20:09 barium sulfate Allergy Anaphylaxis Verified 09/26/23 20:09 [From Readi-Cat] codeine Allergy Anaphylaxis Verified 09/26/23 20:09 fentanyl Allergy Rash/Hives Verified 09/26/23 20:09 hydrocodone [From Lortab] Allergy Swelling Verified 09/26/23 20:09 Iodinated Contrast Media Allergy Anaphylaxis Verified 09/26/23 20:09 iodine Allergy Rash/Hives Verified 09/26/23 20:09 iron Allergy Swelling Verified 09/26/23 20:09 levofloxacin [From Levaquin] Allergy Swelling Verified 09/26/23 20:09 morphine Allergy Rash/Hives, Verified 09/26/23 20:09 Nausea/Vomiting peach Allergy Swelling Verified 09/26/23 20:09 peanut Allergy Swelling Verified 09/26/23 20:09 peanut oil Allergy Anaphylaxis Verified 09/26/23 20:09 shellfish derived [Shellfish] Allergy Anaphylaxis Verified 09/26/23 20:09 strawberry Allergy Anaphylaxis Verified 09/26/23 20:09 sucralfate [From Carafate] Allergy Swelling Verified 09/26/23 20:09 Sulfa (Sulfonamide Allergy Anaphylaxis Verified 09/26/23 20:09 Antibiotics) sulfamethoxazole Allergy Anaphylaxis Verified 09/26/23 20:09 [From Bactrim] tree nut [Nut] Allergy Swelling Verified 09/26/23 20:09 trimethoprim [From Bactrim] Allergy Anaphylaxis Verified 09/26/23 20:09 metronidazole [From Flagyl] AdvReac Unknown Verified 09/26/23 20:09 Review of Systems ROS Statement: Those systems with pertinent positive or pertinent negative responses have been documented in the HPI. ROS Other: All systems not noted in ROS Statement are negative. Past Medical History Past Medical History: Asthma, Cancer, CVA/TIA, Diabetes Mellitus, Fibromyalgia, GERD/Reflux, Hyperlipidemia, Osteoarthritis (OA), Pneumonia Additional Past Medical History / Comment(s): Had Iron infusions in Apr 2019. Hx TIA 2015. Diabetic neuropathy eli feet, migraines, cervical disc disease, DDD, eli tinnitis, arthiritis bilateral shoulders, IBS, HX R arm fx yrs ago, R ovarian cyst, hiatal hernia, UTIs, urinary calculus, pancreatitis x 2, stomach ulcer. Hx cervical cancer. COVID 08/2020 History of Any Multi-Drug Resistant Organisms: C-DIFF Date of last positivie culture/infection: 2015 MDRO Source:: None Past Surgical History: Appendectomy, Bariatric Surgery, Cholecystectomy, Hysterectomy, Tonsillectomy Additional Past Surgical History / Comment(s): 2010 felix-en-Y, fistula repair 2011, 2011 gastric bypass revision, bowel resection, lap gastrojejunostomy anastamosis revision, EGD and colonoscopy, cone bx-cervical cancer removed with cryo, L fallopian tube removed due to cyst, picc line in and out, CERVICAL FUSION 12/21/16. Past Anesthesia/Blood Transfusion Reactions: Family History of Problems w/ Anesthesia, Motion Sickness, Postoperative Nausea & Vomiting (PONV) Additional Past Anesthesia/Blood Transfusion Reaction / Comment(s): Pt states she has never recieved blood. FAMILY HX PONV. Past Psychological History: Anxiety, Depression Smoking Status: Never smoker Past Alcohol Use History: None Reported Past Drug Use History: None Reported - Past Family History Brother(s) Family Medical History: Deep Vein Thrombosis (DVT) Father Family Medical History: Cancer, Deep Vein Thrombosis (DVT), Pulmonary Embolus Additional Family Medical History / Comment(s): Father had poss colon and lung cancer and at age 73yrs. Mother Family Medical History: Coronary Artery Disease (CAD), Diabetes Mellitus, Deep Vein Thrombosis (DVT), Hypertension, Pulmonary Embolus Additional Family Medical History / Comment(s): Mother is alive and 73 yrs old. General Exam Limitations: no limitations General appearance: alert, in no apparent distress Head exam: Present: atraumatic, normocephalic, normal inspection Eye exam: Present: normal appearance, PERRL, EOMI. Absent: scleral icterus, conjunctival injection, periorbital swelling Neck exam: Present: normal inspection. Absent: tenderness, meningismus, lymphadenopathy Respiratory exam: Present: normal lung sounds bilaterally. Absent: respiratory distress, wheezes, rales, rhonchi, stridor Cardiovascular Exam: Present: regular rate, normal rhythm, normal heart sounds. Absent: systolic murmur, diastolic murmur, rubs, gallop, clicks GI/Abdominal exam: Present: soft, normal bowel sounds. Absent: distended, tenderness, guarding, rebound, rigid Neurological exam: Present: alert, oriented X3 Psychiatric exam: Present: normal affect, normal mood Skin exam: Present: warm, dry, other (Superficial abrasions to the right upper arm and right-sided chest wall with ecchymosis). Absent: intact, normal color Course Vital Signs 09/26/23 09/26/23 20:07 21:58 Temperature 98.4 F Pulse Rate 96 90 Respiratory 18 18 Rate Blood Pressure 126/79 109/73 O2 Sat by Pulse 97 97 Oximetry Medical Decision Making - Medical Decision Making Was pt. sent in by a medical professional or institution (, PA, HOME TEACHING GRADES 9 THRU 12 TEACHER, urgent care, hospital, or jail...) When possible be specific @ -No Did you speak to anyone other than the patient for history (EMS, parent, family, police, friend...)? What history was obtained from this source @ -No Did you review nursing and triage notes (agree or disagree)? Why? @ -I reviewed and agree with nursing and triage notes Were old charts reviewed (outside hosp., previous admission, EMS record, old EKG, old radiological studies, urgent care reports/EKG's, jail records)? Report findings @ -No old charts were reviewed Differential Diagnosis (chest pain, altered mental status, abdominal pain women, abdominal pain men, vaginal bleeding, weakness, fever, dyspnea, syncope, headache, dizziness, GI bleed, back pain, seizure, CVA, palpatations, mental health, musculoskeletal)? @ -Dog bite, infection, cellulitis, this list is not all inclusive EKG interpreted by me (3pts min.). @ -None X-rays interpreted by me (1pt min.). @ -None done CT interpreted by me (1pt min.). @ -None done U/S interpreted by me (1pt. min.). @ -None done What testing was considered but not performed or refused? (CT, X-rays, U/S, labs)? Why? @ -None What meds were considered but not given or refused? Why? @ -None Did you discuss the management of the patient with other professionals (professionals i.e. , PA, HOME TEACHING GRAD[employer] THRU 12 TEACHER, lab, RT, psych nurse, family welfare social work professor, product test engineer, teacher, field crop technical officer, outpatient case manager)? Give summary @ -No Was smoking cessation discussed for >3mins.? @ -No Was critical care preformed (if so, how long)? @ -No Were there social determinants of health that impacted care today? How? (Homelessness, low income, unemployed, alcoholism, drug addiction, transportation, low edu. Level, literacy, decrease access to med. care, penitentiary, rehab)? @ -No Was there de-escalation of care discussed even if they declined (Discuss DNR or withdrawal of care, Hospice)? DNR status @ -No What co-morbidities impacted this encounter? (DM, HTN, Smoking, COPD, CAD, Cancer, CVA, ARF, Chemo, Hep., AIDS, mental health diagnosis, sleep apnea, morbid obesity)? @ -None Was patient admitted / discharged? Hospital course, mention meds given and route, prescriptions, significant lab abnormalities, going to OR and other pertinent info. @ -Discharged. Patient presented to the emergency department for evaluation of dog bite. Patient has a bite to her right upper arm and her right sided lateral chest superficial abrasions. Patient reports that she continues out yesterday when this occurred around 4 PM. She is up-to-date on her tetanus vaccination. Patient believes that the dog is up-to-date on vaccinations including rabies, is not acting rabid. Rabies paperwork faxed for animal control. Patient will be started on Augmentin. Started the dose of the medication here in the emergency department. Patient also given a dose of Toradol. Patient advised on what to look out for and strict return precautions discussed. Patient understanding agreeable plan. Patient stable at time of discharge. Case discussed with Dr. Harman Undiagnosed new problem with uncertain prognosis? @ -No Drug Therapy requiring intensive monitoring for toxicity (Heparin, Nitro, Insulin, Cardizem)? @ -No Were any procedures done? @ -No Diagnosis/symptom? @ -Dog bite Acute, or Chronic, or Acute on Chronic? @ -Acute Uncomplicated (without systemic symptoms) or Complicated (systemic symptoms)? @ -Uncomplicated Side effects of treatment? @ -No Exacerbation, Progression, or Severe Exacerbation? @ -No Poses a threat to life or bodily function? How? (Chest pain, USA, MT, pneumonia, PE, COPD, DKA, ARF, appy, cholecystitis, CVA, Diverticulitis, Homicidal, Suicidal, threat to staff... and all critical care pts) @ -No Disposition Clinical Impression: Dog bite Disposition: HOME SELF-CARE Condition: Stable Instructions (If sedation given, give patient instructions): Animal Bite (ED) Additional Instructions: Please follow up with your primary care provider. Return to the emergency department for new or worsening symptoms. Prescriptions: Amoxic-Pot Clav 875-125Mg [Augmentin 875-125] 1 tab PO Q12HR #20 tab Is patient prescribed a controlled substance at d/c from ED?: No Referrals: Macy Knight MD [Primary Care Provider] - 1-2 days
[2023-09-26] MEDS: AMOXIC-POT CLAV 875-125MG 1 EACH TAB PO STA (21:26)
[2023-09-26] MEDS: KETOROLAC 15 MG/ML 1 ML VIAL IM STA (21:27)
[2023-09-26 22:27] VITALS: BP 109/73; PULSE 90
== END 2023-09-26 22:00 | disposition home or self-care (01) ==
LOC: EC 20:00
DX: S41.151A Open bite of right upper arm, initial encounter (principal); E11.40 Type 2 diabetes mellitus with diabetic neuropathy, unspecified; E78.5 Hyperlipidemia, unspecified; F32.A Depression, unspecified; F41.9 Anxiety disorder, unspecified; J45.909 Unspecified asthma, uncomplicated; K21.9 Gastro-esophageal reflux disease without esophagitis; M19.90 Unspecified osteoarthritis, unspecified site; Z79.4 Long term (current) use of insulin; Z79.84 Long term (current) use of oral hypoglycemic drugs; Z79.899 Other long term (current) drug therapy; Z88.1 Allergy status to other antibiotic agents; Z88.2 Allergy status to sulfonamides; Z88.5 Allergy status to narcotic agent; Z88.8 Allergy status to other drugs, medicaments and biological substances; Z91.013 Allergy to seafood; Z91.018 Allergy to other foods; Z91.041 Radiographic dye allergy status; Z86.16 Personal history of COVID-19; Z90.49 Acquired absence of other specified parts of digestive tract; W54.0XXA Bitten by dog, initial encounter
CPT/HCPCS: 99283; 96372; J1885

== ENCOUNTER → 2023-10-03 | Outpatient (CLI) | payer OTHER ==
[2023-10-04 03:57] LABS: ALT 26 U/L (8-44); AST 32 U/L (13-35); Albumin 4.4 g/dL (3.8-4.9); Albumin/Globulin Ratio 1.38 Ratio (1.60-3.17); Alkaline Phosphatase 111 U/L (41-126); BUN/Creat Ratio 33.57 Ratio (12.00-20.00); Blood Urea Nitrogen 23.5 mg/dL (9.0-27.0); C-Peptide 1.77 ng/mL (0.81-3.85); Calcium 9.5 mg/dL (8.7-10.3); Carbon Dioxide 22.1 mmol/L (21.6-31.8); Chloride 98 mmol/L (96-109); Chol/HDL Ratio 2.92 Ratio; Globulin 3.2 g/dL (1.6-3.3); Glucose 166 mg/dL (70-110); LDL Cholesterol,Calculated 87.1 mg/dL (0.0-131.0); Sodium 135 mmol/L (135-145); Total Bilirubin 0.5 mg/dL (0.3-1.2); Total Protein 7.6 g/dL (6.2-8.2)
== END | disposition home or self-care (01) ==
LOC: LABWHC1 12:42
PROVIDERS: ATTEND Family Medicine
DX: I10 Essential (primary) hypertension (principal); E11.65 Type 2 diabetes mellitus with hyperglycemia
CPT/HCPCS: 36415; 80053; 80061; 82043; 82570; 83036; 84443; 84681

== ENCOUNTER 2023-11-07 15:41 | Emergency (ER) | payer OTHER ==
--- NOTE | 2023-11-07 16:49 | ED ---
General Adult HPI - General Chief complaint: Abdominal Pain Stated complaint: Abd Pain, Diarrhea Time Seen by Provider: 11/07/23 16:06 Source: patient, RN notes reviewed Mode of arrival: ambulatory Limitations: no limitations - History of Present Illness Initial comments: 53-year-old female presents to the emergency department for evaluation of diffuse abdominal pain, diarrhea, nausea, vomiting. She states that she has been having diarrhea on and off for the past 3 weeks. She states that her bowel movements seem to be very mucousy and frequent especially when she eats. She is passing gas. She reports fevers on and off around 100 degrees. She reports that she was on Augmentin about 3 weeks ago for dog bite and symptoms started after this. She does have a history of multiple abdominal surgeries, bowel obstruction and C. difficile. She follows with Dr. Contreras. - Related Data Home Medications Medication Instructions Recorded Confirmed Cetirizine HCl [Zyrtec] 10 mg PO DAILY 06/13/18 03/21/23 Mirtazapine [Remeron] 15 mg PO HS 10/08/18 03/21/23 buPROPion HCL [Wellbutrin XL] 300 mg PO DAILY 12/24/18 03/21/23 LORazepam [Ativan] 0.5 mg PO QID PRN 04/23/19 03/21/23 Propranolol HCl [Inderal Xl] 80 mg PO DAILY PRN 04/23/19 03/21/23 Gabapentin 300 mg PO TID 02/28/22 03/21/23 Insulin Aspart [NovoLOG Flexpen] See Protocol SQ AC-TID 02/28/22 03/21/23 Rizatriptan Odt [Maxalt PROMOTIONS SPECIALIST] 10 mg PO BID PRN 02/28/22 03/21/23 metFORMIN HCL ER [Glucophage XR] 1,000 mg PO TID 02/28/22 03/21/23 Furosemide [Lasix] 20 mg PO DAILY 02/16/23 03/21/23 Ondansetron [Zofran] 4 mg PO Q8HR PRN 02/16/23 03/21/23 Pioglitazone [Actos] 30 mg PO DAILY 02/16/23 03/21/23 Tamsulosin [Flomax] 0.4 mg PO HS 02/16/23 03/21/23 Zolpidem [Ambien] 10 mg PO HS PRN 02/16/23 03/21/23 Simvastatin [Zocor] 80 mg PO DAILY 02/28/23 03/21/23 Dicyclomine [Bentyl] 10 mg PO BID 03/21/23 03/21/23 Dulaglutide [Trulicity] 1.5 mg SQ MO 03/21/23 03/21/23 Escitalopram [Lexapro] 20 mg PO DAILY PRN 03/21/23 03/21/23 Previous Rx's Medication Instructions Recorded Acetaminophen Tab [Tylenol Tab] 1,000 mg PO Q6HR PRN #30 tablet 03/23/23 Ibuprofen [Motrin] 600 mg PO Q8HR PRN #30 tab 03/23/23 Ondansetron Odt [Zofran Odt] 4 mg PO Q8HR PRN #10 tab 05/19/23 Amoxic-Pot Clav 875-125Mg 1 tab PO Q12HR #20 tab 09/26/23 [Augmentin 875-125] Vancomycin HCl [Vancocin HCl] 125 mg PO QID #40 cap 11/07/23 Allergies Allergy/AdvReac Type Severity Reaction Status Date / Time oxycodone [From Percocet] Allergy Unknown Swelling; Verified 11/07/23 16:00 (WAS ABLE TO TAKE ALONG WITH BENADRYL) apricot Allergy Dyspnea Verified 11/07/23 16:00 barium sulfate Allergy Anaphylaxis Verified 11/07/23 16:00 [From Readi-Cat] codeine Allergy Anaphylaxis Verified 11/07/23 16:00 fentanyl Allergy Rash/Hives Verified 11/07/23 16:00 hydrocodone [From Lortab] Allergy Swelling Verified 11/07/23 16:00 Iodinated Contrast Media Allergy Anaphylaxis Verified 11/07/23 16:00 iodine Allergy Rash/Hives Verified 11/07/23 16:00 iron Allergy Swelling Verified 11/07/23 16:00 levofloxacin [From Levaquin] Allergy Swelling Verified 11/07/23 16:00 morphine Allergy Rash/Hives, Verified 11/07/23 16:00 Nausea/Vomiting peach Allergy Swelling Verified 11/07/23 16:00 peanut Allergy Swelling Verified 11/07/23 16:00 peanut oil Allergy Anaphylaxis Verified 11/07/23 16:00 shellfish derived [Shellfish] Allergy Anaphylaxis Verified 11/07/23 16:00 strawberry Allergy Anaphylaxis Verified 11/07/23 16:00 sucralfate [From Carafate] Allergy Swelling Verified 11/07/23 16:00 Sulfa (Sulfonamide Allergy Anaphylaxis Verified 11/07/23 16:00 Antibiotics) sulfamethoxazole Allergy Anaphylaxis Verified 11/07/23 16:00 [From Bactrim] tree nut [Nut] Allergy Swelling Verified 11/07/23 16:00 trimethoprim [From Bactrim] Allergy Anaphylaxis Verified 11/07/23 16:00 metronidazole [From Flagyl] AdvReac Unknown Verified 11/07/23 16:00 Review of Systems ROS Statement: Those systems with pertinent positive or pertinent negative responses have been documented in the HPI. ROS Other: All systems not noted in ROS Statement are negative. Past Medical History Past Medical History: Asthma, Cancer, CVA/TIA, Diabetes Mellitus, Fibromyalgia, GERD/Reflux, Hyperlipidemia, Osteoarthritis (OA), Pneumonia Additional Past Medical History / Comment(s): Had Iron infusions in Apr 2019. Hx TIA 2015. Diabetic neuropathy eli feet, migraines, cervical disc disease, DDD, eli tinnitis, arthiritis bilateral shoulders, IBS, HX R arm fx yrs ago, R ovarian cyst, hiatal hernia, UTIs, urinary calculus, pancreatitis x 2, stomach ulcer. Hx cervical cancer. COVID 08/2020 History of Any Multi-Drug Resistant Organisms: C-DIFF Date of last positivie culture/infection: 2015 MDRO Source:: None Past Surgical History: Appendectomy, Bariatric Surgery, Cholecystectomy, Hysterectomy, Tonsillectomy Additional Past Surgical History / Comment(s): 2010 felix-en-Y, fistula repair 2011, 2011 gastric bypass revision, bowel resection, lap gastrojejunostomy anastamosis revision, EGD and colonoscopy, cone bx-cervical cancer removed with cryo, L fallopian tube removed due to cyst, picc line in and out, CERVICAL FUSION 12/21/16. Past Anesthesia/Blood Transfusion Reactions: Family History of Problems w/ Anesthesia, Motion Sickness, Postoperative Nausea & Vomiting (PONV) Additional Past Anesthesia/Blood Transfusion Reaction / Comment(s): Pt states she has never recieved blood. FAMILY HX PONV. Past Psychological History: Anxiety, Depression Smoking Status: Never smoker Past Alcohol Use History: None Reported Past Drug Use History: None Reported - Past Family History Brother(s) Family Medical History: Deep Vein Thrombosis (DVT) Father Family Medical History: Cancer, Deep Vein Thrombosis (DVT), Pulmonary Embolus Additional Family Medical History / Comment(s): Father had poss colon and lung cancer and at age 73yrs. Mother Family Medical History: Coronary Artery Disease (CAD), Diabetes Mellitus, Deep Vein Thrombosis (DVT), Hypertension, Pulmonary Embolus Additional Family Medical History / Comment(s): Mother is alive and 73 yrs old. General Exam Limitations: no limitations General appearance: alert, in no apparent distress Head exam: Present: atraumatic, normocephalic, normal inspection Eye exam: Present: normal appearance, PERRL, EOMI. Absent: scleral icterus, conjunctival injection, periorbital swelling ENT exam: Present: normal exam, mucous membranes moist Neck exam: Present: normal inspection. Absent: tenderness, meningismus, lymphadenopathy Respiratory exam: Present: normal lung sounds bilaterally. Absent: respiratory distress, wheezes, rales, rhonchi, stridor Cardiovascular Exam: Present: regular rate, normal rhythm, normal heart sounds. Absent: systolic murmur, diastolic murmur, rubs, gallop, clicks GI/Abdominal exam: Present: soft, tenderness, normal bowel sounds. Absent: guarding, rebound, rigid Extremities exam: Present: normal inspection, full ROM, normal capillary refill. Absent: tenderness, pedal edema, joint swelling, calf tenderness Back exam: Present: normal inspection Neurological exam: Present: alert, oriented X3 Psychiatric exam: Present: normal affect, normal mood Skin exam: Present: warm, dry, intact, normal color. Absent: rash Course Vital Signs 11/07/23 11/07/23 11/07/23 15:58 17:06 19:00 Temperature 98.2 F Pulse Rate 111 H 102 H 92 Respiratory 18 18 18 Rate Blood Pressure 95/79 120/81 110/67 O2 Sat by Pulse 96 97 95 Oximetry 11/07/23 20:30 Temperature Pulse Rate 94 Respiratory 18 Rate Blood Pressure 107/74 O2 Sat by Pulse 94 L Oximetry Medical Decision Making - Medical Decision Making Was pt. sent in by a medical professional or institution (, PA, DISBURSING OFFICER, urgent care, hospital, or care home...) When possible be specific @ -No Did you speak to anyone other than the patient for history (EMS, parent, family, police, friend...)? What history was obtained from this source @ -No Did you review nursing and triage notes (agree or disagree)? Why? @ -I reviewed and agree with nursing and triage notes Were old charts reviewed (outside hosp., previous admission, EMS record, old EKG, old radiological studies, urgent care reports/EKG's, care home records)? Report findings @ -No old charts were reviewed Differential Diagnosis (chest pain, altered mental status, abdominal pain women, abdominal pain men, vaginal bleeding, weakness, fever, dyspnea, syncope, headache, dizziness, GI bleed, back pain, seizure, CVA, palpatations, mental health, musculoskeletal)? @ -Differential Abdominal Pain Women: Appendicitis, Cholecystitis, diverticulosis, ischemic bowel, pancreatitis, hepatitis, UTI, gastroenteritis, AAA, incarcerated hernia, bowel obstruction, constipation, inflammatory bowel, hepatitis, peptic ulcer disease, splenic infarction, perforated viscus, vulvitis, ovarian torsion, PID, kidney stone, placenta abruption, this is not meant to be an all-inclusive list EKG interpreted by me (3pts min.). @ -None X-rays interpreted by me (1pt min.). @ -None done CT interpreted by me (1pt min.). @ -CT abdomen pelvis shows no acute intra-abdominal process U/S interpreted by me (1pt. min.). @ -None done What testing was considered but not performed or refused? (CT, X-rays, U/S, labs)? Why? @ -None What meds were considered but not given or refused? Why? @ -None Did you discuss the management of the patient with other professionals (pr ofessionals i.e. , PA, DISBURSING OFFICER, lab, RT, psych nurse, social science instructor, filament cutter, teacher, campus police officer, case management coordinator)? Give summary @ -No Was smoking cessation discussed for >3mins.? @ -No Was critical care preformed (if so, how long)? @ -No Were there social determinants of health that impacted care today? How? (Homelessness, low income, unemployed, alcoholism, drug addiction, transportation, low edu. Level, literacy, decrease access to med. care, custodial, rehab)? @ -No Was there de-escalation of care discussed even if they declined (Discuss DNR or withdrawal of care, Hospice)? DNR status @ -No What co-morbidities impacted this encounter? (DM, HTN, Smoking, COPD, CAD, Cancer, CVA, ARF, Chemo, Hep., AIDS, mental health diagnosis, sleep apnea, morbid obesity)? @ -None Was patient admitted / discharged? Hospital course, mention meds given and route, prescriptions, significant lab abnormalities, going to OR and other pertinent info. @ -Discharge. Patient presented to the emergency department for evaluation of diarrhea and abdominal pain. She was recently on antibiotics about 3 weeks ago. Symptoms started following this. Laboratory studies obtained today which showed leukocytosis of 17.1, lactic acidosis of 2.6. Patient provided 1.5 L normal saline in the emergency department. CT abdomen pelvis was obtained which shows no evidence of acute intra-abdominal process, multiple chronic postsurgical changes. Patient was unable to provide a stool sample. Based on history, patient will be treated empirically for C. difficile with p.o. vancomycin. Advised that she should follow-up with her PCP. Return precautions discussed. Patient understanding and agreeable with plan. Patient stable at time of discharge. Case discussed with Dr. Lay. Undiagnosed new problem with uncertain prognosis? @ -No Drug Therapy requiring intensive monitoring for toxicity (Heparin, Nitro, Insulin, Cardizem)? @ -No Were any procedures done? @ -No Diagnosis/symptom? @ -Abdominal pain, C. difficile Acute, or Chronic, or Acute on Chronic? @ -Acute Uncomplicated (without systemic symptoms) or Complicated (systemic symptoms)? @ -Uncomplicated Side effects of treatment? @ -No Exacerbation, Progression, or Severe Exacerbation? @ -No Poses a threat to life or bodily function? How? (Chest pain, USA, CA, pneumonia, PE, COPD, DKA, ARF, appy, cholecystitis, CVA, Diverticulitis, Homicidal, Suicidal, threat to staff... and all critical care pts) @ -No - Lab Data Result diagrams: 11/07/23 16:56 11/07/23 16:56 Lab Results 11/07/23 11/07/23 11/07/23 Range/Units 16:56 16:56 16:56 WBC 17.1 H (3.8-10.6) k/uL RBC 5.72 H (3.80-5.40) m/uL Hgb 14.1 (11.4-16.0) gm/dL Hct 44.8 (34.0-46.0) % MCV 78.3 L (80.0-100.0) fL MCH 24.7 L (25.0-35.0) pg MCHC 31.5 (31.0-37.0) g/dL RDW 15.5 (11.5-15.5) % Plt Count 422 (150-450) k/uL MPV 8.2 Neutrophils % 61 % Lymphocytes % 31 % Monocytes % 4 % Eosinophils % 1 % Basophils % 1 % Neutrophils # 10.5 H (1.3-7.7) k/uL Lymphocytes # 5.3 H (1.0-4.8) k/uL Monocytes # 0.7 (0-1.0) k/uL Eosinophils # 0.2 (0-0.7) k/uL Basophils # 0.1 (0-0.2) k/uL Manual Slide Review Performed Hypochromasia Slight PT 11.3 (10.0-12.5) sec INR 1.0 (<1.2) APTT 24.3 (22.0-30.0) sec Sodium (137-145) mmol/L Potassium (3.5-5.1) mmol/L Chloride (98-107) mmol/L Carbon Dioxide (22-30) mmol/L Anion Gap mmol/L BUN (7-17) mg/dL Creatinine (0.52-1.04) mg/dL Est GFR (CKD-EPI)AfAm (>60 ml/min/1.73 sqM) Est GFR (CKD-EPI)NonAf (>60 ml/min/1.73 sqM) Glucose (74-99) mg/dL Lactic Ac Sepsis Rflx Plasma Lactic Acid Adam (0.7-2.0) mmol/L Calcium (8.4-10.2) mg/dL Total Bilirubin (0.2-1.3) mg/dL AST (14-36) U/L ALT (4-34) U/L Alkaline Phosphatase (38-126) U/L Total Protein (6.3-8.2) g/dL Albumin (3.5-5.0) g/dL Amylase (30-110) U/L Lipase (23-300) U/L Urine Color Colorless Urine Appearance Clear (Clear) Urine pH 5.0 (5.0-8.0) Ur Specific [place] >1.050 H (1.001-1.035) Urine Protein Negative (Negative) Urine Glucose (UA) Negative (Negative) Urine Ketones Trace H (Negative) Urine Blood Negative (Negative) Urine Nitrite Negative (Negative) Urine Bilirubin Negative (Negative) Urine Urobilinogen <2.0 (<2.0) mg/dL Ur Leukocyte Esterase Small H (Negative) Urine RBC 1 (0-5) /hpf Urine WBC 7 H (0-5) /hpf Ur Squamous Epith Cells <1 (0-4) /hpf 11/07/23 11/07/23 11/07/23 Range/Units 16:56 16:56 17:35 WBC (3.8-10.6) k/uL RBC (3.80-5.40) m/uL Hgb (11.4-16.0) gm/dL Hct (34.0-46.0) % MCV (80.0-100.0) fL MCH (25.0-35.0) pg MCHC (31.0-37.0) g/dL RDW (11.5-15.5) % Plt Count (150-450) k/uL MPV Neutrophils % % Lymphocytes % % Monocytes % % Eosinophils % % Basophils % % Neutrophils # (1.3-7.7) k/uL Lymphocytes # (1.0-4.8) k/uL Monocytes # (0-1.0) k/uL Eosinophils # (0-0.7) k/uL Basophils # (0-0.2) k/uL Manual Slide Review Hypochromasia PT (10.0-12.5) sec INR (<1.2) APTT (22.0-30.0) sec Sodium 139 (137-145) mmol/L Potassium 4.4 (3.5-5.1) mmol/L Chloride 106 (98-107) mmol/L Carbon Dioxide 17 L (22-30) mmol/L Anion Gap 16 mmol/L BUN 14 (7-17) mg/dL Creatinine 0.59 (0.52-1.04) mg/dL Est GFR (CKD-EPI)AfAm >90 (>60 ml/min/1.73 sqM) Est GFR (CKD-EPI)NonAf >90 (>60 ml/min/1.73 sqM) Glucose 140 H (74-99) mg/dL Lactic Ac Sepsis Rflx Y Plasma Lactic Acid Adam 2.6 H* (0.7-2.0) mmol/L Calcium 9.7 (8.4-10.2) mg/dL Total Bilirubin 0.7 (0.2-1.3) mg/dL AST 62 H (14-36) U/L ALT 50 H (4-34) U/L Alkaline Phosphatase 89 (38-126) U/L Total Protein 8.4 H (6.3-8.2) g/dL Albumin 4.9 (3.5-5.0) g/dL Amylase 61 (30-110) U/L Lipase 132 (23-300) U/L Urine Color Urine Appearance (Clear) Urine pH (5.0-8.0) Ur Specific [place] (1.001-1.035) Urine Protein (Negative) Urine Glucose (UA) (Negative) Urine Ketones (Negative) Urine Blood (Negative) Urine Nitrite (Negative) Urine Bilirubin (Negative) Urine Urobilinogen (<2.0) mg/dL Ur Leukocyte Esterase (Negative) Urine RBC (0-5) /hpf Urine WBC (0-5) /hpf Ur Squamous Epith Cells (0-4) /hpf Disposition Clinical Impression: C. difficile colitis Disposition: HOME SELF-CARE Condition: Stable Instructions (If sedation given, give patient instructions): C. Diff (Clostridioides Difficile) Infection (ED) Additional Instructions: Please pickle processor antibiotics and take to completion. Ensure you are hydrating well. Return to the emergency department for new or worsening symptoms. Prescriptions: Vancomycin HCl [Vancocin HCl] 125 mg PO QID #40 cap Is patient prescribed a controlled substance at d/c from ED?: No Referrals: Macy Knight MD [Primary Care Provider] - 1-2 days
[2023-11-07 16:52] VITALS: RESP 18; TEMP 98.2
[2023-11-07] MEDS: HYDROmorphone 0.5 MG/0.5 ML SYRINGE IVP STA ×2 (17:03→20:31)
[2023-11-07] MEDS: SODIUM CHLORIDE 0.9% 1,000 ML IV STA (17:03)
[2023-11-07 17:22] LABS: Basophils # (A) 0.1 k/uL (0-0.2); Basophils % (A) 1 %; Eosinophils # (A) 0.2 k/uL (0-0.7); Eosinophils % (A) 1 %; HCT 44.8 % (34.0-46.0); HGB 14.1 gm/dL (11.4-16.0); Hypochromasia Slight; Lymphocytes # (A) 5.3 k/uL (1.0-4.8); Lymphocytes % (A) 31 %; MCH 24.7 pg (25.0-35.0); MCHC 31.5 g/dL (31.0-37.0); MCV 78.3 fL (80.0-100.0); Mean Platelet Volume 8.2; Monocytes # (A) 0.7 k/uL (0-1.0); Monocytes % (A) 4 %; Neutrophils # (A) 10.5 k/uL (1.3-7.7); Neutrophils % (A) 61 %; Platelet Count 422 k/uL (150-450); RBC 5.72 m/uL (3.80-5.40); RDW 15.5 % (11.5-15.5); WBC 17.1 k/uL (3.8-10.6)
[2023-11-07 17:24] LABS: Partial Thromboplastin Time 24.3 sec (22.0-30.0); Prothrombin Time 11.3 sec (10.0-12.5)
[2023-11-07 17:30] LABS: ALT 50 U/L (4-34); AST 62 U/L (14-36); African American GFR (CKD) >90 (>60 ml/min/1.73 sqM); Albumin 4.9 g/dL (3.5-5.0); Alkaline Phosphatase 89 U/L (38-126); Amylase 61 U/L (30-110); Anion Gap 16 mmol/L; Blood Urea Nitrogen 14 mg/dL (7-17); Calcium 9.7 mg/dL (8.4-10.2); Carbon Dioxide 17 mmol/L (22-30); Chloride 106 mmol/L (98-107); Glucose 140 mg/dL (74-99); Lipase 132 U/L (23-300); Non-African American GFR(CKD) >90 (>60 ml/min/1.73 sqM); Potassium 4.4 mmol/L (3.5-5.1); Sodium 139 mmol/L (137-145); Total Bilirubin 0.7 mg/dL (0.2-1.3); Total Protein 8.4 g/dL (6.3-8.2)
[2023-11-07] MEDS: FAMOTIDINE 20 MG/2 ML VIAL IV STA (17:42)
[2023-11-07] MEDS: methylPREDNISolone SOD SUCCI 125 MG/2 ML VIAL IV STA (17:43)
[2023-11-07] MEDS: diphenhydrAMINE 50 MG/ML 1 ML VIAL IVP STA (17:44)
--- NOTE | 2023-11-07 19:25 | CT ---
EXAMINATION TYPE: CT abdomen pelvis w con CT DLP: 1263.9 mGycm, Automated exposure control for dose reduction was used. DATE OF EXAM: 11/07/2023 6:28 PM COMPARISON: CT without contrast 03/22/2023 CLINICAL INDICATION:Female, 53 years old with history of abd pain, hx bowel obstruction; abd pain, hx bowel obstruction TECHNIQUE: Axial CT of the abdomen and pelvis. Sagittal and coronal reformats were created on a [employer] workstation. Contrast used:100 mL of Isovue 300 Oral contrast used: without Oral Contrast (none if empty) FINDINGS: LOWER CHEST: Unremarkable ABDOMEN LIVER: Unremarkable GALLBLADDER AND BILE DUCTS: Gallbladder is surgically absent with mild biliary dilatation, likely pos tcholecystectomy change and/or physiologic. No evidence of choledocholithiasis shown. PANCREAS: Unremarkable. SPLEEN: Unremarkable. ADRENAL GLANDS: Unremarkable. KIDNEYS AND URETERS: Kidneys enhance symmetrically. No evidence of hydronephrosis or visible renal ca lculus. The ureters are unremarkable. A couple tiny renal hypodensities, too small to characterize bu t have the appearance of cysts. PELVIS BLADDER: Unremarkable REPRODUCTIVE: The uterus appears absent, correlate for hysterectomy. Uncertain if the ovaries remain . No pelvic mass is visualized. ABDOMEN & PELVIS STOMACH AND BOWEL: Postoperative changes of the stomach and bowel again seen, possibly related to gas tric bypass. Multiple surgical clips are again seen in the abdomen, again one clip is seen adjacent t o the posterior medial aspect of the right hepatic lobe, likely migrated. No evidence of bowel obstru ction. Appendix not visualized and there is radiodensity by the cecum suggesting prior appendectomy. There is mild to moderate stool seen throughout the colon without acute evaluate visualized. Some seg ments are nondistended and difficult to assess. Scattered diverticula are suggested without signs of diverticulitis. PERITONEUM/RETROPERITONEUM: No evidence of pneumoperitoneum or free fluid. VASCULATURE: Aorta and major branches are grossly unremarkable. No AAA. IVC is normal caliber. Port al vein is enhancing. LYMPH NODES: No evidence for lymphadenopathy. SOFT TISSUE/ABDOMINAL WALL: Tiny foci of subcutaneous gas in the right anterior abdomen, likely seque la of medication injections. Minimal body wall edema suggested. MUSCULOSKELETAL: No acute osseous abnormalities. Mild disc degeneration changes are present throughou t the thoracolumbar spine. IMPRESSION: * Overall stable exam. * No acute abdominopelvic abnormality.
[2023-11-07 20:23] LABS: Appearance,Urine Clear (Clear); Bilirubin,Urine Negative (Negative); Blood,Urine Negative (Negative); Color,Urine Colorless; Glucose,Urine (UA) Negative (Negative); Ketones,Urine Trace (Negative); Leukocyte Esterase,Urine Small (Negative); Nitrite,Urine Negative (Negative); Protein,Urine Negative (Negative); RBC,Urine 1 /hpf (0-5); Squamous Epithelial Cell,Urine <1 /hpf (0-4); Urobilinogen,Urine <2.0 mg/dL (<2.0); WBC,Urine 7 /hpf (0-5)
[2023-11-07 20:24] LABS: Specific Gravity,Urine >1.050 (1.001-1.035)
[2023-11-07 21:12] VITALS: BP 107/74; PULSE 94
[2023-11-07] MEDS: HYDROmorphone 1 MG/ML 1 ML SYRINGE IVP STA (22:09)
[2023-11-07] MEDS: SODIUM CHLORIDE 0.9% 500 ML 500 ML IV ONE (22:09)
[2023-11-07] MEDS: VANCOMYCIN 125 MG CAPSULE PO STA (22:28)
== END 2023-11-07 23:15 | disposition home or self-care (01) ==
LOC: EC 15:41
DX: A04.72 Enterocolitis due to Clostridium difficile, not specified as recurrent (principal); Z91.018 Allergy to other foods; Z88.2 Allergy status to sulfonamides; Z88.1 Allergy status to other antibiotic agents; Z88.8 Allergy status to other drugs, medicaments and biological substances; Z91.013 Allergy to seafood; Z88.5 Allergy status to narcotic agent; Z91.041 Radiographic dye allergy status
CPT/HCPCS: 99284; 96374; 96375 ×3; 96376 ×2; 36415; 80053; 82150; 83605; 83690; 85025; 85610; 85730; 81001; 74177; 96361 ×2; J1200; J2930; J3490; J1170 ×2; Q9967

== ENCOUNTER 2023-11-11 16:31 | Emergency (ER) | payer OTHER ==
[2023-11-11 17:36] LABS: ALT 47 U/L (4-34); AST 58 U/L (14-36); African American GFR (CKD) >90 (>60 ml/min/1.73 sqM); Albumin 5.1 g/dL (3.5-5.0); Alkaline Phosphatase 91 U/L (38-126); Amylase 56 U/L (30-110); Anion Gap 15 mmol/L; Blood Urea Nitrogen 14 mg/dL (7-17); Calcium 10.2 mg/dL (8.4-10.2); Carbon Dioxide 16 mmol/L (22-30); Chloride 109 mmol/L (98-107); Glucose 169 mg/dL (74-99); Lipase 120 U/L (23-300); Non-African American GFR(CKD) >90 (>60 ml/min/1.73 sqM); Partial Thromboplastin Time 23.4 sec (22.0-30.0); Potassium 4.3 mmol/L (3.5-5.1); Prothrombin Time 10.8 sec (10.0-12.5); Sodium 140 mmol/L (137-145); Total Bilirubin 0.6 mg/dL (0.2-1.3); Total Protein 8.6 g/dL (6.3-8.2)
--- NOTE | 2023-11-11 18:01 | ED ---
Abdominal Pain HPI - General Chief Complaint: Abdominal Pain Stated Complaint: Abd Pain Time Seen by Provider: 11/11/23 17:45 Source: patient Mode of arrival: ambulatory Limitations: no limitations - History of Present Illness Initial Comments: 53-year-old female presenting to the ED with a chief complaint of nausea vomiting diarrhea and abdominal pain. Patient was previously seen here on 11/07/2023. At that time noted to have the same symptoms. Reported symptoms may have started after recent antibiotic usage. Has had the symptoms for the past 2 weeks. When seen here previously was presumed to have C. difficile and discharged home on vancomycin. Has been using this medication however reports worsening of symptoms prompting presentation to the ED for further evaluation. No chest pain or shortness of breath. No changes in urinary habits. - Related Data Home Medications Medication Instructions Recorded Confirmed Cetirizine HCl [Zyrtec] 10 mg PO DAILY 06/13/18 03/21/23 Mirtazapine [Remeron] 15 mg PO HS 10/08/18 03/21/23 buPROPion HCL [Wellbutrin XL] 300 mg PO DAILY 12/24/18 03/21/23 LORazepam [Ativan] 0.5 mg PO QID PRN 04/23/19 03/21/23 Propranolol HCl [Inderal Xl] 80 mg PO DAILY PRN 04/23/19 03/21/23 Gabapentin 300 mg PO TID 02/28/22 03/21/23 Insulin Aspart [NovoLOG Flexpen] See Protocol SQ AC-TID 02/28/22 03/21/23 Rizatriptan Odt [Maxalt TRADE SALES ASSISTANT] 10 mg PO BID PRN 02/28/22 03/21/23 metFORMIN HCL ER [Glucophage XR] 1,000 mg PO TID 02/28/22 03/21/23 Furosemide [Lasix] 20 mg PO DAILY 02/16/23 03/21/23 Ondansetron [Zofran] 4 mg PO Q8HR PRN 02/16/23 03/21/23 Pioglitazone [Actos] 30 mg PO DAILY 02/16/23 03/21/23 Tamsulosin [Flomax] 0.4 mg PO HS 02/16/23 03/21/23 Zolpidem [Ambien] 10 mg PO HS PRN 02/16/23 03/21/23 Simvastatin [Zocor] 80 mg PO DAILY 02/28/23 03/21/23 Dicyclomine [Bentyl] 10 mg PO BID 03/21/23 03/21/23 Dulaglutide [Trulicity] 1.5 mg SQ MO 03/21/23 03/21/23 Escitalopram [Lexapro] 20 mg PO DAILY PRN 03/21/23 03/21/23 Previous Rx's Medication Instructions Recorded Acetaminophen Tab [Tylenol Tab] 1,000 mg PO Q6HR PRN #30 tablet 03/23/23 Ibuprofen [Motrin] 600 mg PO Q8HR PRN #30 tab 03/23/23 Ondansetron Odt [Zofran Odt] 4 mg PO Q8HR PRN #10 tab 05/19/23 Amoxic-Pot Clav 875-125Mg 1 tab PO Q12HR #20 tab 09/26/23 [Augmentin 875-125] Vancomycin HCl [Vancocin HCl] 125 mg PO QID #40 cap 11/07/23 Allergies Allergy/AdvReac Type Severity Reaction Status Date / Time oxycodone [From Percocet] Allergy Unknown Swelling; Verified 11/07/23 16:00 (WAS ABLE TO TAKE ALONG WITH BENADRYL) apricot Allergy Dyspnea Verified 11/07/23 16:00 barium sulfate Allergy Anaphylaxis Verified 11/07/23 16:00 [From Readi-Cat] codeine Allergy Anaphylaxis Verified 11/07/23 16:00 fentanyl Allergy Rash/Hives Verified 11/07/23 16:00 hydrocodone [From Lortab] Allergy Swelling Verified 11/07/23 16:00 Iodinated Contrast Media Allergy Anaphylaxis Verified 11/07/23 16:00 iodine Allergy Rash/Hives Verified 11/07/23 16:00 iron Allergy Swelling Verified 11/07/23 16:00 levofloxacin [From Levaquin] Allergy Swelling Verified 11/07/23 16:00 morphine Allergy Rash/Hives, Verified 11/07/23 16:00 Nausea/Vomiting peach Allergy Swelling Verified 11/07/23 16:00 peanut Allergy Swelling Verified 11/07/23 16:00 peanut oil Allergy Anaphylaxis Verified 11/07/23 16:00 shellfish derived [Shellfish] Allergy Anaphylaxis Verified 11/07/23 16:00 strawberry Allergy Anaphylaxis Verified 11/07/23 16:00 sucralfate [From Carafate] Allergy Swelling Verified 11/07/23 16:00 Sulfa (Sulfonamide Allergy Anaphylaxis Verified 11/07/23 16:00 Antibiotics) sulfamethoxazole Allergy Anaphylaxis Verified 11/07/23 16:00 [From Bactrim] tree nut [Nut] Allergy Swelling Verified 11/07/23 16:00 trimethoprim [From Bactrim] Allergy Anaphylaxis Verified 11/07/23 16:00 metronidazole [From Flagyl] AdvReac Unknown Verified 11/07/23 16:00 Review of Systems ROS Statement: Those systems with pertinent positive or pertinent negative responses have been documented in the HPI. ROS Other: All systems not noted in ROS Statement are negative. Past Medical History Past Medical History: Asthma, Cancer, CVA/TIA, Diabetes Mellitus, Fibromyalgia, GERD/Reflux, Hyperlipidemia, Osteoarthritis (OA), Pneumonia Additional Past Medical History / Comment(s): Had Iron infusions in Apr 2019. Hx TIA 2015. Diabetic neuropathy eli feet, migraines, cervical disc disease, DDD, eli tinnitis, arthiritis bilateral shoulders, IBS, HX R arm fx yrs ago, R ovarian cyst, hiatal hernia, UTIs, urinary calculus, pancreatitis x 2, stomach ulcer. Hx cervical cancer. COVID 08/2020 History of Any Multi-Drug Resistant Organisms: C-DIFF Date of last positivie culture/infection: 2015 MDRO Source:: None Past Surgical History: Appendectomy, Bariatric Surgery, Cholecystectomy, Hysterectomy, Tonsillectomy Additional Past Surgical History / Comment(s): 2010 felix-en-Y, fistula repair 2011, 2011 gastric bypass revision, bowel resection, lap gastrojejunostomy anastamosis revision, EGD and colonoscopy, cone bx-cervical cancer removed with cryo, L fallopian tube removed due to cyst, picc line in and out, CERVICAL FUSION 12/21/16. Past Anesthesia/Blood Transfusion Reactions: Family History of Problems w/ Anesthesia, Motion Sickness, Postoperative Nausea & Vomiting (PONV) Additional Past Anesthesia/Blood Transfusion Reaction / Comment(s): Pt states she has never recieved blood. FAMILY HX PONV. Past Psychological History: Anxiety, Depression Smoking Status: Never smoker Past Alcohol Use History: None Reported Past Drug Use History: None Reported - Past Family History Brother(s) Family Medical History: Deep Vein Thrombosis (DVT) Father Family Medical History: Cancer, Deep Vein Thrombosis (DVT), Pulmonary Embolus Additional Family Medical History / Comment(s): Father had poss colon and lung cancer and at age 73yrs. Mother Family Medical History: Coronary Artery Disease (CAD), Diabetes Mellitus, Deep Vein Thrombosis (DVT), Hypertension, Pulmonary Embolus Additional Family Medical History / Comment(s): Mother is alive and 73 yrs old. General Exam - General Exam Comments Initial Comments: Visual Physical Exam Vital signs reviewed General: Well-appearing, nontoxic, no acute distress. Head: Normocephalic, atraumatic Eyes: PERRLA, EOMI ENT: Airway patent Chest: Nonlabored breathing Skin: No visual rash, normal skin tone Neuro: Alert and oriented 3 Musculoskeletal: No gross abnormalities Limitations: no limitations General appearance: alert, in no apparent distress Eye exam: Present: normal appearance Neck exam: Present: normal inspection Respiratory exam: Present: normal lung sounds bilaterally Cardiovascular Exam: Present: normal rhythm GI/Abdominal exam: Present: soft (Diffuse abdominal tenderness to palpation worse in the lower abdomen. No rebound guarding or rigidity. Bowel sounds present.) Neurological exam: Present: alert, oriented X3 Skin exam: Present: warm, dry Course Vital Signs 11/11/23 11/11/23 11/11/23 16:48 19:33 21:50 Temperature 98.1 F 98.5 F Pulse Rate 129 H 104 H 97 Respiratory 20 18 18 Rate Blood Pressure 118/84 104/74 104/69 O2 Sat by Pulse 98 96 97 Oximetry Medical Decision Making - Medical Decision Making Quicknote portion performed. Signed Kasi Joshi PA-C Was pt. sent in by a medical professional or institution ([facility], ACTIVITIES ASSISTANT, urgent care, hospital, or fdc...) When possible be specific @ -No Did you speak to anyone other than the patient for history (EMS, parent, family, police, friend...)? What history was obtained from this source @ -No Did you review nursing and triage notes (agree or disagree)? Why? @ -I reviewed and agree with nursing and triage notes Were old charts reviewed (outside hosp., previous admission, EMS record, old EKG, old radiological studies, urgent care reports/EKG's, fdc records)? Report findings @ -No old charts were reviewed Differential Diagnosis (chest pain, altered mental status, abdominal pain women, abdominal pain men, vaginal bleeding, weakness, fever, dyspnea, syncope, headache, dizziness, GI bleed, back pain, seizure, CVA, palpatations, mental health, musculoskeletal)? @ -Differential Abdominal Pain Women: Appendicitis, Cholecystitis, diverticulosis, ischemic bowel, pancreatitis, hepatitis, UTI, gastroenteritis, AAA, incarcerated hernia, bowel obstruction, constipation, inflammatory bowel, hepatitis, peptic ulcer disease, splenic infarction, perforated viscus, vulvitis, ovarian torsion, PID, kidney stone, placenta abruption, this is not meant to be an all-inclusive list EKG interpreted by me (3pts min.). @ -As above X-rays interpreted by me (1pt min.). @ -None done CT interpreted by me (1pt min.). @ -None done U/S interpreted by me (1pt. min.). @ -None done What testing was considered but not performed or refused? (CT, X-rays, U/S, labs)? Why? @ -None What meds were considered but not given or refused? Why? @ -None Did you discuss the management of the patient with other professionals (professionals i.e. , PA, ACTIVITIES ASSISTANT, lab, RT, psych nurse, long term care social worker, pilot highway patrol, teacher, crime prevention police officer, director of casework department)? Give summary @ -No Was smoking cessation discussed for >3mins.? @ -No Was critical care preformed (if so, how long)? @ -No Were there social determinants of health that impacted care today? How? (Homelessness, low income, unemployed, alcoholism, drug addiction, transportation, low edu. Level, literacy, decrease access to med. care, detention, rehab)? @ -No Was there de-escalation of care discussed even if they declined (Discuss DNR or withdrawal of care, Hospice)? DNR status @ -No What co-morbidities impacted this encounter? (DM, HTN, Smoking, COPD, CAD, Can cer, CVA, ARF, Chemo, Hep., AIDS, mental health diagnosis, sleep apnea, morbid obesity)? @ -None Was patient admitted / discharged? Hospital course, mention meds given and route, prescriptions, significant lab abnormalities, going to OR and other pertinent info. @ -Discharge 53-year-old female presenting to the ED with continued complaints of abdominal pain, nausea, vomiting, diarrhea. Patient previously seen here and was started on vancomycin due to presumptive E. coli. Was unable to give us a stool sample prior visit. Laboratory studies reviewed. CBC does show an elevated white blood cell count of 14.4 however improved from prior at 17.1. Chemistry panel does show an elevated lactic acid 2.3 however decreased to 2 liters of fluids. Some slight transaminitis with an elevated AST at 58 ALT of 47. Troponin indeterminate at 0.027. At this time patient denies chest pain or shortness of breath. UA shows no significant evidence of infection. Patient had lengthy stay here in the ED and was unable to provide us a stool sample. Discharged home in stable condition with instructions to follow-up with her PCP. Undiagnosed new problem with uncertain prognosis? @ -No Drug Therapy requiring intensive monitoring for toxicity (Heparin, Nitro, In sulin, Cardizem)? @ -No Were any procedures done? @ -No Diagnosis/symptom? @ -Nausea, vomiting, diarrhea, abdominal pain Acute, or Chronic, or Acute on Chronic? @ -Acute Uncomplicated (without systemic symptoms) or Complicated (systemic symptoms)? @ -Uncomplicated Side effects of treatment? @ -No Exacerbation, Progression, or Severe Exacerbation? @ -No Poses a threat to life or bodily function? How? (Chest pain, [place], [place], pneumonia, PE, COPD, DKA, ARF, appy, cholecystitis, CVA, Diverticulitis, Homicidal, Suicidal, threat to staff... and all critical care pts) @ -No - Lab Data Result diagrams: 11/11/23 16:52 11/11/23 16:52 Lab Results 11/11/23 11/11/23 11/11/23 Range/Units 16:52 16:52 16:52 WBC 14.4 H (3.8-10.6) k/uL RBC 5.67 H (3.80-5.40) m/uL Hgb 13.9 (11.4-16.0) gm/dL Hct 45.2 (34.0-46.0) % MCV 79.7 L (80.0-100.0) fL MCH 24.6 L (25.0-35.0) pg MCHC 30.8 L (31.0-37.0) g/dL RDW 16.0 H (11.5-15.5) % Plt Count 441 (150-450) k/uL MPV 8.3 Neutrophils % (Manual) 57 % Lymphocytes % (Manual) 41 % Monocytes % (Manual) 2 % Neutrophils # (Manual) 8.21 H (1.3-7.7) k/uL Lymphocytes # (Manual) 5.90 H (1.0-4.8) k/uL Monocytes # (Manual) 0.29 (0-1.0) k/uL Nucleated RBCs 0 (0-0) /100 WBC Manual Slide Review Performed Hypochromasia Slight PT 10.8 (10.0-12.5) sec INR 1.0 (<1.2) APTT 23.4 (22.0-30.0) sec Sodium 140 (137-145) mmol/L Potassium 4.3 (3.5-5.1) mmol/L Chloride 109 H (98-107) mmol/L Carbon Dioxide 16 L (22-30) mmol/L Anion Gap 15 mmol/L BUN 14 (7-17) mg/dL Creatinine 0.65 (0.52-1.04) mg/dL Est GFR (CKD-EPI)AfAm >90 (>60 ml/min/1.73 sqM) Est GFR (CKD-EPI)NonAf >90 (>60 ml/min/1.73 sqM) Glucose 169 H (74-99) mg/dL Lactic Ac Sepsis Rflx Plasma Lactic Acid Adam (0.7-2.0) mmol/L Calcium 10.2 (8.4-10.2) mg/dL Total Bilirubin 0.6 (0.2-1.3) mg/dL AST 58 H (14-36) U/L ALT 47 H (4-34) U/L Alkaline Phosphatase 91 (38-126) U/L Troponin I (0.000-0.034) ng/mL Total Protein 8.6 H (6.3-8.2) g/dL Albumin 5.1 H (3.5-5.0) g/dL Amylase 56 (30-110) U/L Lipase 120 (23-300) U/L Urine Color Urine Appearance (Clear) Urine pH (5.0-8.0) Ur Specific [place] (1.001-1.035) Urine Protein (Negative) Urine Glucose (UA) (Negative) Urine Ketones (Negative) Urine Blood (Negative) Urine Nitrite (Negative) Urine Bilirubin (Negative) Urine Urobilinogen (<2.0) mg/dL Ur Leukocyte Esterase (Negative) Urine WBC (0-5) /hpf Ur Squamous Epith Cells (0-4) /hpf Urine Bacteria (None) /hpf Hyaline Casts (0-2) /lpf Urine Mucus (None) /hpf 11/11/23 11/11/23 11/11/23 Range/Units 16:52 16:52 17:46 WBC (3.8-10.6) k/uL RBC (3.80-5.40) m/uL Hgb (11.4-16.0) gm/dL Hct (34.0-46.0) % MCV (80.0-100.0) fL MCH (25.0-35.0) pg MCHC (31.0-37.0) g/dL RDW (11.5-15.5) % Plt Count (150-450) k/uL MPV Neutrophils % (Manual) % Lymphocytes % (Manual) % Monocytes % (Manual) % Neutrophils # (Manual) (1.3-7.7) k/uL Lymphocytes # (Manual) (1.0-4.8) k/uL Monocytes # (Manual) (0-1.0) k/uL Nucleated RBCs (0-0) /100 WBC Manual Slide Review Hypochromasia PT (10.0-12.5) sec INR (<1.2) APTT (22.0-30.0) sec Sodium (137-145) mmol/L Potassium (3.5-5.1) mmol/L Chloride (98-107) mmol/L Carbon Dioxide (22-30) mmol/L Anion Gap mmol/L BUN (7-17) mg/dL Creatinine (0.52-1.04) mg/dL Est GFR (CKD-EPI)AfAm (>60 ml/min/1.73 sqM) Est GFR (CKD-EPI)NonAf (>60 ml/min/1.73 sqM) Glucose (74-99) mg/dL Lactic Ac Sepsis Rflx Y Plasma Lactic Acid Adam 2.3 H* (0.7-2.0) mmol/L Calcium (8.4-10.2) mg/dL Total Bilirubin (0.2-1.3) mg/dL AST (14-36) U/L ALT (4-34) U/L Alkaline Phosphatase (38-126) U/L Troponin I 0.027 (0.000-0.034) ng/mL Total Protein (6.3-8.2) g/dL Albumin (3.5-5.0) g/dL Amylase (30-110) U/L Lipase (23-300) U/L Urine Color Urine Appearance (Clear) Urine pH (5.0-8.0) Ur Specific [place] (1.001-1.035) Urine Protein (Negative) Urine Glucose (UA) (Negative) Urine Ketones (Negative) Urine Blood (Negative) Urine Nitrite (Negative) Urine Bilirubin (Negative) Urine Urobilinogen (<2.0) mg/dL Ur Leukocyte Esterase (Negative) Urine WBC (0-5) /hpf Ur Squamous Epith Cells (0-4) /hpf Urine Bacteria (None) /hpf Hyaline Casts (0-2) /lpf Urine Mucus (None) /hpf 11/11/23 11/11/23 Range/Units 19:04 21:20 WBC (3.8-10.6) k/uL RBC (3.80-5.40) m/uL Hgb (11.4-16.0) gm/dL Hct (34.0-46.0) % MCV (80.0-100.0) fL MCH (25.0-35.0) pg MCHC (31.0-37.0) g/dL RDW (11.5-15.5) % Plt Count (150-450) k/uL MPV Neutrophils % (Manual) % Lymphocytes % (Manual) % Monocytes % (Manual) % Neutrophils # (Manual) (1.3-7.7) k/uL Lymphocytes # (Manual) (1.0-4.8) k/uL Monocytes # (Manual) (0-1.0) k/uL Nucleated RBCs (0-0) /100 WBC Manual Slide Review Hypochromasia PT (10.0-12.5) sec INR (<1.2) APTT (22.0-30.0) sec Sodium (137-145) mmol/L Potassium (3.5-5.1) mmol/L Chloride (98-107) mmol/L Carbon Dioxide (22-30) mmol/L Anion Gap mmol/L BUN (7-17) mg/dL Creatinine (0.52-1.04) mg/dL Est GFR (CKD-EPI)AfAm (>60 ml/min/1.73 sqM) Est GFR (CKD-EPI)NonAf (>60 ml/min/1.73 sqM) Glucose (74-99) mg/dL Lactic Ac Sepsis Rflx Plasma Lactic Acid Adam 1.0 (0.7-2.0) mmol/L Calcium (8.4-10.2) mg/dL Total Bilirubin (0.2-1.3) mg/dL AST (14-36) U/L ALT (4-34) U/L Alkaline Phosphatase (38-126) U/L Troponin I (0.000-0.034) ng/mL Total Protein (6.3-8.2) g/dL Albumin (3.5-5.0) g/dL Amylase (30-110) U/L Lipase (23-300) U/L Urine Color Colorless Urine Appearance Clear (Clear) Urine pH 5.0 (5.0-8.0) Ur Specific [place] 1.007 (1.001-1.035) Urine Protein Negative (Negative) Urine Glucose (UA) Negative (Negative) Urine Ketones Negative (Negative) Urine Blood Negative (Negative) Urine Nitrite Negative (Negative) Urine Bilirubin Negative (Negative) Urine Urobilinogen <2.0 (<2.0) mg/dL Ur Leukocyte Esterase Small H (Negative) Urine WBC 2 (0-5) /hpf Ur Squamous Epith Cells <1 (0-4) /hpf Urine Bacteria Rare H (None) /hpf Hyaline Casts 20 H (0-2) /lpf Urine Mucus Rare H (None) /hpf Disposition Clinical Impression: Nausea & vomiting, Diarrhea Disposition: HOME SELF-CARE Condition: Good Additional Instructions: Please return to the Emergency Department if symptoms worsen or any other concerns. Please continue taking antibiotics as prescribed. Please follow-up with your primary care provider. Is patient prescribed a controlled substance at d/c from ED?: No Referrals: Macy Knight MD [Primary Care Provider] - 1-2 days Time of Disposition: 00:28
[2023-11-11 18:17] LABS: HCT 45.2 % (34.0-46.0); HGB 13.9 gm/dL (11.4-16.0); Hypochromasia Slight; MCH 24.6 pg (25.0-35.0); MCHC 30.8 g/dL (31.0-37.0); MCV 79.7 fL (80.0-100.0); Mean Platelet Volume 8.3; Platelet Count 441 k/uL (150-450); RBC 5.67 m/uL (3.80-5.40); WBC 14.4 k/uL (3.8-10.6)
[2023-11-11 18:57] LABS: Monocytes # (M) 0.29 k/uL (0-1.0); Neutrophils # (M) 8.21 k/uL (1.3-7.7); Neutrophils % (M) 57 %; Nucleated Red Blood Cells 0 /100 WBC (0-0); Total Cells Counted 100
[2023-11-11] MEDS: methylPREDNISolone SOD SUCCI 125 MG/2 ML VIAL IV STA (18:59)
[2023-11-11] MEDS: diphenhydrAMINE 50 MG/ML 1 ML VIAL IVP STA (18:59)
[2023-11-11] MEDS: FAMOTIDINE 20 MG/2 ML VIAL IV STA (18:59)
[2023-11-11 19:27] LABS: Appearance,Urine Clear (Clear); Bacteria,Urine Rare /hpf; Bilirubin,Urine Negative (Negative); Blood,Urine Negative (Negative); Color,Urine Colorless; Glucose,Urine (UA) Negative (Negative); Hyaline Casts,Urine 20 /lpf (0-2); Ketones,Urine Negative (Negative); Leukocyte Esterase,Urine Small (Negative); Mucus,Urine Rare /hpf; Nitrite,Urine Negative (Negative); Protein,Urine Negative (Negative); Specific Gravity,Urine 1.007 (1.001-1.035); Squamous Epithelial Cell,Urine <1 /hpf (0-4); Urobilinogen,Urine <2.0 mg/dL (<2.0); WBC,Urine 2 /hpf (0-5)
[2023-11-11] MEDS: ONDANSETRON 4 MG/2 ML VIAL IVP STA (19:36)
[2023-11-11] MEDS: HYDROmorphone 1 MG/ML 1 ML SYRINGE IVP STA ×2 (19:39→21:53)
[2023-11-11 19:45] VITALS: RESP 18; TEMP 98.5
[2023-11-11] MEDS: SODIUM CHLORIDE 0.9% 1,000 ML IV STA (20:03)
[2023-11-11] MEDS: SODIUM CHLORIDE 0.9% 2,000 ML IV STA (20:05)
[2023-11-12 01:34] VITALS: BP 106/74; PULSE 90
== END 2023-11-12 00:55 | disposition home or self-care (01) ==
LOC: EC 16:31
DX: R10.84 Generalized abdominal pain (principal); R11.2 Nausea with vomiting, unspecified; R19.7 Diarrhea, unspecified; R74.01 Elevation of levels of liver transaminase levels; R74.02 Elevation of levels of lactic acid dehydrogenase [LDH]; D72.829 Elevated white blood cell count, unspecified; Z88.5 Allergy status to narcotic agent; Z88.8 Allergy status to other drugs, medicaments and biological substances; Z91.041 Radiographic dye allergy status; Z88.1 Allergy status to other antibiotic agents; Z91.010 Allergy to peanuts; Z91.013 Allergy to seafood; Z91.018 Allergy to other foods; Z88.2 Allergy status to sulfonamides; Z86.16 Personal history of COVID-19; Z86.73 Personal history of transient ischemic attack (TIA), and cerebral infarction without residual deficits; Z91.09 Other allergy status, other than to drugs and biological substances; Z90.49 Acquired absence of other specified parts of digestive tract
CPT/HCPCS: 99284; 96374; 96375; 96376; 96361 ×2; 36415; 80053; 82150; 83605; 83690; 84484; 85025; 85610; 85730; 81001; J2405; J1170

== ENCOUNTER → 2023-11-14 | Outpatient (CLI) | payer OTHER ==
--- NOTE | 2023-11-14 15:03 | P.BASOAP ---
Subjective Progress Note Date: 11/14/23 She has been vomiting frrom her antibiotics and dog bite. She has chronic diarrhea and abdominal pain. Had CT scan. Reviewed. Needs fluids. Needs magnesium check. Get alex. Need stool sample. Hold lomotil. Scop patch to efarm. Need Cdiff sample. CT unremarkable. Assessment/Plan Plan: Date: Initial Weight: 142.882 kg Initial BMI: Current Weight: Current BMI: Type of Surgery: Total Volume in Band: Previous Volume: Volume Removed: Volume Added: Band Size:
[2023-11-15 12:25] VITALS: BP 106/68; PULSE 130; TEMP 97.8; BMI 31.1
== END ==
LOC: BARWHC3 13:19
PROVIDERS: ATTEND Surgery Plastic and Reconstructive Surgery
DX: E66.01 Morbid (severe) obesity due to excess calories (principal); Z53.9 Procedure and treatment not carried out, unspecified reason
CPT/HCPCS: 99211

== ENCOUNTER 2023-11-16 16:33 | Inpatient (IN) | payer OTHER ==
--- NOTE | 2023-11-16 17:57 | ED ---
Recheck HPI - General Chief Complaint: Abdominal Pain Stated Complaint: Abd Pain Time Seen by Provider: 11/16/23 17:28 Source: patient, RN notes reviewed, old records reviewed Mode of arrival: ambulatory Limitations: no limitations - History of Present Illness Initial Comments: This is a 53-year-old female to the ER for evaluation today. Patient notes today for evaluation regards to significant abdominal wall pain abnormal electrolytes nausea vomiting diarrhea persistent diarrhea with now decreasing any bowel movements at all. Decreased appetite with significant weight loss MD Complaint: abnormal lab, other (Decreased bowel movements with abdominal pain) -: week(s) Returns Today for: persistent/worsening pain related to initial visit Symptoms Since Prior Visit: worsening pain Associated Symptoms: none Treatments Prior to Arrival: Given Pain Meds on - Related Data Home Medications Medication Instructions Recorded Confirmed Cetirizine HCl [Zyrtec] 10 mg PO DAILY 06/13/18 11/17/23 Mirtazapine [Remeron] 15 mg PO HS 10/08/18 11/17/23 LORazepam [Ativan] 0.5 mg PO Q6H PRN 04/23/19 11/17/23 Propranolol HCl [Inderal Xl] 80 mg PO HS 04/23/19 11/17/23 Gabapentin 300 mg PO DAILY 02/28/22 11/17/23 Rizatriptan Odt [Maxalt [employer]] 10 mg PO TID PRN 02/28/22 11/17/23 metFORMIN HCL ER [Glucophage XR] 2,000 mg PO DAILY 02/28/22 11/17/23 Furosemide [Lasix] 20 mg PO BID 02/16/23 11/17/23 Simvastatin [Zocor] 80 mg PO HS 02/28/23 11/17/23 Escitalopram [Lexapro] 20 mg PO DAILY 03/21/23 11/17/23 Docusate Sodium [Dok] 100 mg PO DAILY 11/17/23 11/17/23 Gabapentin 600 mg PO HS 11/17/23 11/17/23 Insulin Glargine,Hum.rec.anlog 30 units SQ DAILY 11/17/23 11/17/23 [Lantus Solostar Pen] Ondansetron Odt [Zofran Odt] 8 mg PO Q8HR PRN 11/17/23 11/17/23 Scopolamine 1 mg/72 Hr Patch 1 patch TRANSDERM Q72H PRN 11/17/23 11/17/23 [TransDerm Scop] Tirzepatide [Mounjaro] 5 mg SQ FR 11/17/23 11/17/23 busPIRone HCL 15 mg PO BID 11/17/23 11/17/23 lisinopriL [Zestril] 2.5 mg PO DAILY 11/17/23 11/17/23 Previous Rx's Medication Instructions Recorded Ibuprofen [Motrin] 600 mg PO Q8HR PRN #30 tab 03/23/23 Vancomycin HCl [Vancocin HCl] 125 mg PO QID #40 cap 11/07/23 Allergies Allergy/AdvReac Type Severity Reaction Status Date / Time oxycodone [From Percocet] Allergy Unknown Swelling; Verified 11/16/23 16:42 (WAS ABLE TO TAKE ALONG WITH BENADRYL) apricot Allergy Dyspnea Verified 11/16/23 16:42 barium sulfate Allergy Anaphylaxis Verified 11/16/23 16:42 [From Readi-Cat] codeine Allergy Anaphylaxis Verified 11/16/23 16:42 fentanyl Allergy Rash/Hives Verified 11/16/23 16:42 hydrocodone [From Lortab] Allergy Swelling Verified 11/16/23 16:42 Iodinated Contrast Media Allergy Anaphylaxis Verified 11/16/23 16:42 iodine Allergy Rash/Hives Verified 11/16/23 16:42 iron Allergy Swelling Verified 11/16/23 16:42 levofloxacin [From Levaquin] Allergy Swelling Verified 11/16/23 16:42 morphine Allergy Rash/Hives, Verified 11/16/23 16:42 Nausea/Vomiting peach Allergy Swelling Verified 11/16/23 16:42 peanut Allergy Swelling Verified 11/16/23 16:42 peanut oil Allergy Anaphylaxis Verified 11/16/23 16:42 shellfish derived [Shellfish] Allergy Anaphylaxis Verified 11/16/23 16:42 strawberry Allergy Anaphylaxis Verified 11/16/23 16:42 sucralfate [From Carafate] Allergy Swelling Verified 11/16/23 16:42 Sulfa (Sulfonamide Allergy Anaphylaxis Verified 11/16/23 16:42 Antibiotics) sulfamethoxazole Allergy Anaphylaxis Verified 11/16/23 16:42 [From Bactrim] tree nut [Nut] Allergy Swelling Verified 11/16/23 16:42 trimethoprim [From Bactrim] Allergy Anaphylaxis Verified 11/16/23 16:42 metronidazole [From Flagyl] AdvReac Unknown Verified 11/16/23 16:42 Review of Systems ROS Statement: Those systems with pertinent positive or pertinent negative responses have been documented in the HPI. ROS Other: All systems not noted in ROS Statement are negative. Past Medical History Past Medical History: Asthma, Cancer, CVA/TIA, Diabetes Mellitus, Fibromyalgia, GERD/Reflux, Hyperlipidemia, Osteoarthritis (OA), Pneumonia Additional Past Medical History / Comment(s): Had Iron infusions in Apr 2019. Hx TIA 2015. Diabetic neuropathy eli feet, migraines, cervical disc disease, DDD, eli tinnitis, arthiritis bilateral shoulders, IBS, HX R arm fx yrs ago, R ovarian cyst, hiatal hernia, UTIs, urinary calculus, pancreatitis x 2, stomach ulcer. Hx cervical cancer. COVID 08/2020 History of Any Multi-Drug Resistant Organisms: C-DIFF Date of last positivie culture/infection: 2015 MDRO Source:: None Past Surgical History: Appendectomy, Bariatric Surgery, Cholecystectomy, Hysterectomy, Tonsillectomy Additional Past Surgical History / Comment(s): 2011 felix-en-Y, fistula repair 2011, 2011 gastric bypass revision, bowel resection, lap gastrojejunostomy anastamosis revision, EGD and colonoscopy, cone bx-cervical cancer removed with cryo, L fallopian tube removed due to cyst, picc line in and out, CERVICAL FUSION 12/21/16. Past Anesthesia/Blood Transfusion Reactions: Family History of Problems w/ Anesthesia, Motion Sickness, Postoperative Nausea & Vomiting (PONV) Additional Past Anesthesia/Blood Transfusion Reaction / Comment(s): Pt states she has never recieved blood. FAMILY HX PONV. Past Psychological History: Anxiety, Depression Smoking Status: Never smoker Past Alcohol Use History: None Reported Past Drug Use History: None Reported - Past Family History Brother(s) Family Medical History: Deep Vein Thrombosis (DVT) Father Family Medical History: Cancer, Deep Vein Thrombosis (DVT), Pulmonary Embolus Additional Family Medical History / Comment(s): Father had poss colon and lung cancer and at age 73yrs. Mother Family Medical History: Coronary Artery Disease (CAD), Diabetes Mellitus, Deep Vein Thrombosis (DVT), Hypertension, Pulmonary Embolus Additional Family Medical History / Comment(s): Mother is alive and 73 yrs old. General Exam Limitations: no limitations General appearance: alert, in no apparent distress Head exam: Present: atraumatic, normocephalic, normal inspection Eye exam: Present: normal appearance, PERRL, EOMI. Absent: scleral icterus, conjunctival injection, periorbital swelling ENT exam: Present: normal exam, mucous membranes moist Neck exam: Present: normal inspection. Absent: tenderness, meningismus, lymphadenopathy Respiratory exam: Present: normal lung sounds bilaterally. Absent: respiratory distress, wheezes, rales, rhonchi, stridor Cardiovascular Exam: Present: regular rate, normal rhythm, normal heart sounds. Absent: systolic murmur, diastolic murmur, rubs, gallop, clicks GI/Abdominal exam: Present: soft, normal bowel sounds. Absent: distended, tenderness, guarding, rebound, rigid Extremities exam: Present: normal inspection, full ROM, normal capillary refill. Absent: tenderness, pedal edema, joint swelling, calf tenderness Back exam: Present: normal inspection Neurological exam: Present: alert, oriented X3, CN II-XII intact Psychiatric exam: Present: normal affect, normal mood Skin exam: Present: warm, dry, intact, normal color. Absent: rash Course Vital Signs 11/16/23 11/16/23 11/16/23 16:39 18:48 20:08 Temperature 97.9 F Pulse Rate 134 H 114 H 98 Pulse Rate [ Pulse Oximetery ] Respiratory 18 20 16 Rate Blood Pressure 93/69 116/85 107/76 Blood Pressure [Right Arm] O2 Sat by Pulse 97 93 L 93 L Oximetry 11/16/23 20:22 Temperature 98.6 F Pulse Rate Pulse Rate [ 89 Pulse Oximetery ] Respiratory 14 Rate Blood Pressure Blood Pressure 111/74 [Right Arm] O2 Sat by Pulse 97 Oximetry - Reevaluation(s) Reevaluation #1: 11/16/23 19:00 Medical records reviewed Reevaluation #2: 11/16/23 19:00 Patient symptoms are unchanged Reevaluation #3: 11/16/23 19:00 Patient informed of results and questions answered Reevaluation #4: Was pt. sent in by a medical professional or institution (, PA, ENGRAVER [employer]ING, urgent care, hospital, or fpc...) When possible be specific @ -no Did you speak to anyone other than the patient for history (EMS, parent, family, police, friend...)? What history was obtained from this source @ -no Did you review nursing and triage notes (agree or disagree)? Why? @ -agree Are old charts reviewed (outside hosp., previous admission, EMS record, old EKG, old radiological studies, urgent care reports/EKG's, fpc records)? Report findings @ -yes Differential Diagnosis (chest pain, altered mental status, abdominal pain women, abdominal pain men, vaginal bleeding, weakness, fever, dyspnea, syncope, headache, dizziness, GI bleed, back pain, seizure, CVA, palpatations, mental health, musculoskeletal)? @ -prior EKG interpreted by me (3pts min.). @ -no X-rays interpreted by me (1pt min.). @ -no CT interpreted by me (1pt min.). @ -Yes negative for acute disease U/S interpreted by me (1pt. min.). @ -no What testing was considered but not performed or refused? (CT, X-rays, U/S, labs)? Why? @ -none What meds were considered but not given or refused? Why? @ -none Did you discuss the management of the patient with other professionals (professionals i.e. , PA, [employer], lab, RT, psych nurse, addiction social worker, watch technician, teacher, chief digital media officer, field nurse case manager)? Give summary @ -no Was smoking cessation discussed for >3mins.? @ -no Was critical care preformed (if so, how long)? @ -no Were there social determinants of health that impacted care today? How? (Homelessness, low income, unemployed, alcoholism, drug addiction, transportation, low edu. Level, literacy, decrease access to med. care, nursing home, rehab)? @ -none Was there de-escalation of care discussed even if they declined (Discuss DNR or withdrawal of care, Hospice)? DNR status @ -no What co-morbidities impacted this encounter? (DM, HTN, Smoking, COPD, CAD, Cancer, CVA, ARF, Chemo, Hep., AIDS, mental health diagnosis, sleep apnea, morbid obesity)? @ -none Was patient admitted / discharged? Hospital course, mention meds given and route, prescriptions, significant lab abnormalities, going to OR and other pertinent info. @ - 53 female to ER for evaluation of chronic abdominal pain severe abdominal p ain here in the ER with multiple electrode abnormalities, patient will be admitted for electrolyte monitoring, symptom control Admitted Undiagnosed new problem with uncertain prognosis? @ -no Drug Therapy requiring intensive monitoring for toxicity (Heparin, Nitro, Insulin, Cardizem)? @ -no Were any procedures done? @ -no Diagnosis/symptom? @ -Severe abdominal pain with intractable abdominal pain Acute, or Chronic, or Acute on Chronic? @ -Acute Uncomplicated (without systemic symptoms) or Complicated (systemic symptoms)? @ -Complicated Side effects of treatment? @ -no Exacerbation, Progression, or Severe Exacerbation? @ -exacerbation Poses a threat to life or bodily function? How? (Chest pain, USA, NV, pneumonia, PE, COPD, DKA, ARF, appy, cholecystitis, CVA, Diverticulitis, Homicidal, Suicidal, threat to staff... and all critical care pts) @ -no Reevaluation #5: Differential Abdominal Pain Women: Appendicitis, Cholecystitis, diverticulosis, ischemic bowel, pancreatitis, hepatitis, UTI, gastroenteritis, AAA, incarcerated hernia, bowel obstruction, c onstipation, inflammatory bowel, hepatitis, peptic ulcer disease, splenic infarction, perforated viscus, vulvitis, ovarian torsion, PID, kidney stone, placenta abruption, this is not meant to be an all-inclusive list - Consultations Consultation #1: Poke with Dr. Elliott who agrees to admit this patient Medical Decision Making - Medical Decision Making 53 female to ER for evaluation of chronic abdominal pain severe abdominal pain here in the ER with multiple electrode abnormalities, patient will be admitted for electrolyte monitoring, symptom control - Lab Data Result diagrams: 11/20/23 04:49 11/21/23 18:06 Lab Results 11/16/23 11/16/23 11/16/23 Range/Units 17:43 17:43 17:43 WBC 12.5 H (3.8-10.6) k/uL RBC 5.65 H (3.80-5.40) m/uL Hgb 13.9 (11.4-16.0) gm/dL Hct 43.7 (34.0-46.0) % MCV 77.3 L (80.0-100.0) fL MCH 24.5 L (25.0-35.0) pg MCHC 31.7 (31.0-37.0) g/dL RDW 15.9 H (11.5-15.5) % Plt Count 433 (150-450) k/uL MPV 7.3 Neutrophils % 53 % Lymphocytes % 38 % Monocytes % 5 % Eosinophils % 1 % Basophils % 1 % Neutrophils # 6.6 (1.3-7.7) k/uL Lymphocytes # 4.7 (1.0-4.8) k/uL Monocytes # 0.6 (0-1.0) k/uL Eosinophils # 0.2 (0-0.7) k/uL Basophils # 0.1 (0-0.2) k/uL Microcytosis Slight Sodium 135 L (137-145) mmol/L Potassium 3.0 L (3.5-5.1) mmol/L Chloride 95 L (98-107) mmol/L Carbon Dioxide 27 (22-30) mmol/L Anion Gap 13 mmol/L BUN 12 (7-17) mg/dL Creatinine 0.87 (0.52-1.04) mg/dL Est GFR (CKD-EPI)AfAm 88 (>60 ml/min/1.73 sqM) Est GFR (CKD-EPI)NonAf 77 (>60 ml/min/1.73 sqM) Glucose 189 H (74-99) mg/dL Plasma Lactic Acid Adam (0.7-2.0) mmol/L Calcium 9.1 (8.4-10.2) mg/dL Phosphorus 5.5 H (2.5-4.5) mg/dL Magnesium 1.0 L (1.6-2.3) mg/dL Total Bilirubin 1.1 (0.2-1.3) mg/dL AST 44 H (14-36) U/L ALT 48 H (4-34) U/L Alkaline Phosphatase 106 (38-126) U/L Total Protein 8.3 H (6.3-8.2) g/dL Albumin 4.9 (3.5-5.0) g/dL Amylase 47 (30-110) U/L Lipase 80 (23-300) U/L Urine Color Yellow Urine Appearance Cloudy H (Clear) Urine pH 5.5 (5.0-8.0) Ur Specific [place] 1.028 (1.001-1.035) Urine Protein 1+ H (Negative) Urine Glucose (UA) Negative (Negative) Urine Ketones Negative (Negative) Urine Blood Negative (Negative) Urine Nitrite Negative (Negative) Urine Bilirubin Negative (Negative) Urine Urobilinogen 4.0 (<2.0) mg/dL Ur Leukocyte Esterase Large H (Negative) Urine RBC 2 (0-5) /hpf Urine WBC 29 H (0-5) /hpf Ur Squamous Epith Cells 8 H (0-4) /hpf Hyaline Casts 216 H (0-2) /lpf Urine Mucus Many H (None) /hpf 11/16/23 Range/Units 17:43 WBC (3.8-10.6) k/uL RBC (3.80-5.40) m/uL Hgb (11.4-16.0) gm/dL Hct (34.0-46.0) % MCV (80.0-100.0) fL MCH (25.0-35.0) pg MCHC (31.0-37.0) g/dL RDW (11.5-15.5) % Plt Count (150-450) k/uL MPV Neutrophils % % Lymphocytes % % Monocytes % % Eosinophils % % Basophils % % Neutrophils # (1.3-7.7) k/uL Lymphocytes # (1.0-4.8) k/uL Monocytes # (0-1.0) k/uL Eosinophils # (0-0.7) k/uL Basophils # (0-0.2) k/uL Microcytosis Sodium (137-145) mmol/L Potassium (3.5-5.1) mmol/L Chloride (98-107) mmol/L Carbon Dioxide (22-30) mmol/L Anion Gap mmol/L BUN (7-17) mg/dL Creatinine (0.52-1.04) mg/dL Est GFR (CKD-EPI)AfAm (>60 ml/min/1.73 sqM) Est GFR (CKD-EPI)NonAf (>60 ml/min/1.73 sqM) Glucose (74-99) mg/dL Plasma Lactic Acid Adam 1.6 (0.7-2.0) mmol/L Calcium (8.4-10.2) mg/dL Phosphorus (2.5-4.5) mg/dL Magnesium (1.6-2.3) mg/dL Total Bilirubin (0.2-1.3) mg/dL AST (14-36) U/L ALT (4-34) U/L Alkaline Phosphatase (38-126) U/L Total Protein (6.3-8.2) g/dL Albumin (3.5-5.0) g/dL Amylase (30-110) U/L Lipase (23-300) U/L Urine Color Urine Appearance (Clear) Urine pH (5.0-8.0) Ur Specific [place] (1.001-1.035) Urine Protein (Negative) Urine Glucose (UA) (Negative) Urine Ketones (Negative) Urine Blood (Negative) Urine Nitrite (Negative) Urine Bilirubin (Negative) Urine Urobilinogen (<2.0) mg/dL Ur Leukocyte Esterase (Negative) Urine RBC (0-5) /hpf Urine WBC (0-5) /hpf Ur Squamous Epith Cells (0-4) /hpf Hyaline Casts (0-2) /lpf Urine Mucus (None) /hpf - Radiology Data Radiology results: report reviewed (CT abdomen pelvis is negative for acute disease), image reviewed Critical Care Time Critical Care Time: Yes Total Critical Care Time: 31 Disposition Clinical Impression: Hypotension, Dehydration, Gastroenteritis, Intractable abdominal pain, Hypomagnesemia, Hypokalemia Disposition: ADMITTED IP TO THIS [facility] Condition: Serious Is patient prescribed a controlled substance at d/c from ED?: No Time of Disposition: 20:00
[2023-11-16 18:05] LABS: Basophils # (A) 0.1 k/uL (0-0.2); Basophils % (A) 1 %; Eosinophils # (A) 0.2 k/uL (0-0.7); Eosinophils % (A) 1 %; HCT 43.7 % (34.0-46.0); HGB 13.9 gm/dL (11.4-16.0); Lymphocytes # (A) 4.7 k/uL (1.0-4.8); Lymphocytes % (A) 38 %; MCH 24.5 pg (25.0-35.0); MCHC 31.7 g/dL (31.0-37.0); MCV 77.3 fL (80.0-100.0); Mean Platelet Volume 7.3; Microcytosis Slight; Monocytes # (A) 0.6 k/uL (0-1.0); Monocytes % (A) 5 %; Neutrophils # (A) 6.6 k/uL (1.3-7.7); Neutrophils % (A) 53 %; Platelet Count 433 k/uL (150-450); RBC 5.65 m/uL (3.80-5.40); RDW 15.9 % (11.5-15.5); WBC 12.5 k/uL (3.8-10.6)
[2023-11-16] MEDS: SODIUM CHLORIDE 0.9% 1,000 ML IV STA ×2 (18:34→22:12)
[2023-11-16 18:37] LABS: ALT 48 U/L (4-34); AST 44 U/L (14-36); African American GFR (CKD) 88 (>60 ml/min/1.73 sqM); Albumin 4.9 g/dL (3.5-5.0); Alkaline Phosphatase 106 U/L (38-126); Amylase 47 U/L (30-110); Anion Gap 13 mmol/L; Blood Urea Nitrogen 12 mg/dL (7-17); Calcium 9.1 mg/dL (8.4-10.2); Carbon Dioxide 27 mmol/L (22-30); Chloride 95 mmol/L (98-107); Glucose 189 mg/dL (74-99); Lipase 80 U/L (23-300); Non-African American GFR(CKD) 77 (>60 ml/min/1.73 sqM); Phosphorus 5.5 mg/dL (2.5-4.5); Sodium 135 mmol/L (137-145); Total Bilirubin 1.1 mg/dL (0.2-1.3); Total Protein 8.3 g/dL (6.3-8.2)
[2023-11-16] MEDS: diphenhydrAMINE 50 MG/ML 1 ML VIAL IVP STA (18:37)
[2023-11-16] MEDS: FAMOTIDINE 20 MG/2 ML VIAL IV STA (18:39)
[2023-11-16] MEDS: HYDROmorphone 1 MG/ML 1 ML SYRINGE IVP STA (18:41)
[2023-11-16] MEDS: methylPREDNISolone SOD SUCCI 125 MG/2 ML VIAL IV STA (18:43)
[2023-11-16 19:03] LABS: Appearance,Urine Cloudy (Clear); Bilirubin,Urine Negative (Negative); Blood,Urine Negative (Negative); Color,Urine Yellow; Glucose,Urine (UA) Negative (Negative); Hyaline Casts,Urine 216 /lpf (0-2); Ketones,Urine Negative (Negative); Leukocyte Esterase,Urine Large (Negative); Mucus,Urine Many /hpf; Nitrite,Urine Negative (Negative); PH, Urine 5.5 (5.0-8.0); Protein,Urine 1+ (Negative); RBC,Urine 2 /hpf (0-5); Specific Gravity,Urine 1.028 (1.001-1.035); Squamous Epithelial Cell,Urine 8 /hpf (0-4); WBC,Urine 29 /hpf (0-5)
[2023-11-16] MEDS ORDERED: NALOXONE 0.4 MG/ML 1 ML VIAL IV PRN (19:59)
[2023-11-16] MEDS: SODIUM CHLORIDE 0.9% 1,000 ML IV SCH (20:10)
[2023-11-16] MEDS: POTASSIUM CHLORIDE 10 MEQ in WATER FOR INJECTION 1 100ML.BAG IVPB SCH (20:11)
--- NOTE | 2023-11-16 20:13 | CT ---
EXAMINATION TYPE: CT abdomen pelvis w con CT DLP: 1217.6 mGycm, Automated exposure control for dose reduction was used. DATE OF EXAM: 11/16/2023 7:22 PM COMPARISON: CT 11/07/2023 CLINICAL INDICATION:Female, 53 years old with history of pain; abdominal pain, constipation TECHNIQUE: Axial CT of the abdomen and pelvis. Sagittal and coronal reformats were created on a [employer] workstation. Contrast used:100 mL of Isovue 300 with IV Contrast, (none if empty) Oral contrast used: without Oral Contrast (none if empty) FINDINGS: LOWER CHEST: Unremarkable ABDOMEN LIVER: Unremarkable GALLBLADDER AND BILE DUCTS: Gallbladder is surgically absent with mild biliary dilatation, likely pos tcholecystectomy change and/or physiologic. The CBD is 9.5 mm. No evidence of choledocholithiasis see n. PANCREAS: Mild atrophy, without acute finding. SPLEEN: Unremarkable. ADRENAL GLANDS: Unremarkable. KIDNEYS AND URETERS: Kidneys enhance symmetrically. No evidence of hydronephrosis or visible renal ca lculus. The ureters are unremarkable. A couple tiny renal hypodensities, too small to characterize bu t have the appearance of cysts. PELVIS BLADDER: Mostly empty, not well assessed. REPRODUCTIVE: The uterus appears absent, correlate for hysterectomy. Uncertain if the ovaries remain . No pelvic mass is visualized. ABDOMEN & PELVIS STOMACH AND BOWEL: Postoperative changes of the stomach and bowel again seen, likely related to gastr ic bypass. Multiple surgical clips are again seen in the abdomen, again one likely migrated clip is s een adjacent to the posterior medial aspect of the right hepatic lobe. No evidence of bowel obstructi on. Appendix not visualized and there is radiodensity by the cecum suggesting prior appendectomy. The re is mild to moderate stool seen throughout the colon without acute abnormality visualized. Some seg ments are nondistended and difficult to assess. Scattered diverticula are again seen without signs of diverticulitis. PERITONEUM/RETROPERITONEUM: No evidence of pneumoperitoneum or free fluid. VASCULATURE: Aorta and major branches are grossly unremarkable. No AAA. IVC is normal caliber. Port al vein is enhancing. LYMPH NODES: No evidence for lymphadenopathy. SOFT TISSUE/ABDOMINAL WALL: . Minimal body wall edema redemonstrated. MUSCULOSKELETAL: No acute osseous abnormalities. Mild disc degeneration changes are present throughou t the thoracolumbar spine. IMPRESSION: 1. No significant interval change. 2. No acute CT abnormality in the abdomen or pelvis.
[2023-11-16] MEDS: HYDROmorphone 1 MG/ML 1 ML SYRINGE IVP PRN (21:11)
[2023-11-17 09:15] LABS: Basophils # (A) 0.1 k/uL (0-0.2); Basophils % (A) 1 %; Eosinophils % (A) 0 %; HCT 38.9 % (34.0-46.0); HGB 11.1 gm/dL (11.4-16.0); Hypochromasia Marked; Lymphocytes # (A) 1.6 k/uL (1.0-4.8); Lymphocytes % (A) 22 %; MCH 25.4 pg (25.0-35.0); MCHC 28.5 g/dL (31.0-37.0); Mean Platelet Volume 7.8; Monocytes # (A) 0.2 k/uL (0-1.0); Monocytes % (A) 3 %; Neutrophils # (A) 5.5 k/uL (1.3-7.7); Neutrophils % (A) 74 %; Platelet Count 294 k/uL (150-450); RBC 4.36 m/uL (3.80-5.40); RDW 15.5 % (11.5-15.5); WBC 7.4 k/uL (3.8-10.6)
[2023-11-17 09:18] LABS: MCV 89.3 fL (80.0-100.0)
[2023-11-17 09:42] LABS: ALT 48 U/L (4-34); AST 60 U/L (14-36); African American GFR (CKD) >90 (>60 ml/min/1.73 sqM); Albumin 3.5 g/dL (3.5-5.0); Albumin/Globulin Ratio 1.3; Alkaline Phosphatase 77 U/L (38-126); Anion Gap 10 mmol/L; Blood Urea Nitrogen 9 mg/dL (7-17); Calcium 7.8 mg/dL (8.4-10.2); Carbon Dioxide 21 mmol/L (22-30); Chloride 100 mmol/L (98-107); Globulin 2.7 g/dL; Glucose 400 mg/dL (74-99); Magnesium 1.1 mg/dL (1.6-2.3); Non-African American GFR(CKD) >90 (>60 ml/min/1.73 sqM); Phosphorus 3.6 mg/dL (2.5-4.5); Potassium 3.6 mmol/L (3.5-5.1); Sodium 131 mmol/L (137-145); Total Bilirubin 0.7 mg/dL (0.2-1.3); Total Protein 6.2 g/dL (6.3-8.2)
[2023-11-17 11:22] LABS: Glucose,Whole Blood 268 mg/dL (70-110)
[2023-11-17] MEDS: INSULIN ASPART (NovoLOG) 100 UNIT/ML VIAL SQ SCH (13:06)
[2023-11-17] MEDS: busPIRone HCl 5 MG TAB PO SCH (13:07)
[2023-11-17] MEDS: VANCOMYCIN 125 MG CAPSULE PO SCH (13:07)
[2023-11-17] MEDS: ESCITALOPRAM 20 MG TAB PO SCH (13:07)
[2023-11-17 16:13] LABS: African American GFR (CKD) >90 (>60 ml/min/1.73 sqM); Anion Gap 9 mmol/L; Blood Urea Nitrogen 8 mg/dL (7-17); Calcium 8.1 mg/dL (8.4-10.2); Carbon Dioxide 23 mmol/L (22-30); Chloride 105 mmol/L (98-107); Glucose 145 mg/dL (74-99); Non-African American GFR(CKD) >90 (>60 ml/min/1.73 sqM); Potassium 3.4 mmol/L (3.5-5.1); Sodium 137 mmol/L (137-145)
[2023-11-17 16:20] LABS: Glucose,Whole Blood 139 mg/dL (70-110)
--- NOTE | 2023-11-17 17:41 | P.HPIM ---
History of Present Illness H&P Date: 11/17/23 Chief Complaint: Abdominal pain 53-year-old female, history of diabetes mellitus, asthma, hyperlipidemia, fibromyalgia, presents to the ER for evaluation today. Patient notes today for evaluation regards to significant abdominal wall pain abnormal electrolytes nausea vomiting diarrhea persistent diarrhea with now decreasing any bowel movements at all. Decreased appetite with significant weight loss --Patient was seen in the ED on 11/11/2023 with similar complaints of nausea vomiting diarrhea and abdominal pain that has been going on for past 2 weeks; patient was empirically started on oral vancomycin for C. difficile colitis and was discharged home; symptoms worsened and patient presented back to ED for further evaluation Blood work completed in ED reveals a WBC of 12.5 which is improved from 14.4 on previous admission; hemoglobin of 13.9, platelet 433, sodium 135, potassium 3.0, BUNs/creatinine of 12/0.87, blood glucose of 189, lactic acid level of 1.6 magnesium 1.0, phosphorus 5.5, AST/ALT elevated at 60/48, amylase lipase are negative, UA is positive for large leukocyte esterase, WBCs and bacteria Review of Systems REVIEW OF SYSTEMS: CONSTITUTIONAL: No fever, no malaise, no fatigue. HEENT: No recent visual problems or hearing problems. Denied any sore throat. CARDIOVASCULAR: No chest pain, orthopnea, PND, no palpitations, no syncope. PULMONARY: No shortness of breath, no cough, no hemoptysis. GASTROINTESTINAL: No diarrhea, no nausea, no vomiting, no abdominal pain. NEUROLOGICAL: No headaches, no weakness, no numbness. HEMATOLOGICAL: Denies any bleeding or petechiae. GENITOURINARY: Denies any burning micturition, frequency, or urgency. MUSCULOSKELETAL/RHEUMATOLOGICAL: Denies any joint pain, swelling, or any muscle pain. ENDOCRINE: Denies any polyuria or polydipsia. The rest of the 14-point review of systems is negative. Past Medical History Past Medical History: Asthma, Cancer, CVA/TIA, Diabetes Mellitus, Fibromyalgia, GERD/Reflux, Hyperlipidemia, Osteoarthritis (OA), Pneumonia Additional Past Medical History / Comment(s): Had Iron infusions in Apr 2019. Hx TIA 2015. Diabetic neuropathy eli feet, migraines, cervical disc disease, DDD, eli tinnitis, arthiritis bilateral shoulders, IBS, HX R arm fx yrs ago, R ovarian cyst, hiatal hernia, UTIs, urinary calculus, pancreatitis x 2, stomach ulcer. Hx cervical cancer. COVID 08/2020 History of Any Multi-Drug Resistant Organisms: C-DIFF Date of last positivie culture/infection: 2015 MDRO Source:: None Past Surgical History: Appendectomy, Bariatric Surgery, Cholecystectomy, Hy sterectomy, Tonsillectomy Additional Past Surgical History / Comment(s): 2010 felix-en-Y, fistula repair 2011, 2011 gastric bypass revision, bowel resection, lap gastrojejunostomy anastamosis revision, EGD and colonoscopy, cone bx-cervical cancer removed with cryo, L fallopian tube removed due to cyst, picc line in and out, CERVICAL FUSION 12/21/16. Past Anesthesia/Blood Transfusion Reactions: Family History of Problems w/ Anesthesia, Motion Sickness, Postoperative Nausea & Vomiting (PONV) Additional Past Anesthesia/Blood Transfusion Reaction / Comment(s): Pt states she has never recieved blood. FAMILY HX PONV. Past Psychological History: Anxiety, Depression Additional Psychological History / Comment(s): Pt lives with her significant other-common law . Smoking Status: Never smoker Past Alcohol Use History: None Reported Past Drug Use History: None Reported Additional Drug Use History / Comment(s): Pt has a medical marijuana card and tried using it for pain control but it makes her nauseated so she does not use marijuana at all. - Past Family History Brother(s) Family Medical History: Deep Vein Thrombosis (DVT) Father Family Medical History: Cancer, Deep Vein Thrombosis (DVT), Pulmonary Embolus Additional Family Medical History / Comment(s): Father had poss colon and lung cancer and at age 73yrs. Mother Family Medical History: Coronary Artery Disease (CAD), Diabetes Mellitus, Deep Vein Thrombosis (DVT), Hypertension, Pulmonary Embolus Additional Family Medical History / Comment(s): Mother is alive and 73 yrs old. Medications and Allergies Home Medications Medication Instructions Recorded Confirmed Type Cetirizine HCl [Zyrtec] 10 mg PO DAILY 06/13/18 11/17/23 History Mirtazapine [Remeron] 15 mg PO HS 10/08/18 11/17/23 History LORazepam [Ativan] 0.5 mg PO Q6H PRN 04/23/19 11/17/23 History Propranolol HCl [Inderal Xl] 80 mg PO HS 04/23/19 11/17/23 History Gabapentin 300 mg PO DAILY 02/28/22 11/17/23 History Rizatriptan Odt [Maxalt ELECTRONIC [employer]PRESS TECHNICIAN] 10 mg PO TID PRN 02/28/22 11/17/23 History metFORMIN HCL ER [Glucophage XR] 2,000 mg PO DAILY 02/28/22 11/17/23 History Furosemide [Lasix] 20 mg PO BID 02/16/23 11/17/23 History Simvastatin [Zocor] 80 mg PO HS 02/28/23 11/17/23 History Escitalopram [Lexapro] 20 mg PO DAILY 03/21/23 11/17/23 History Ibuprofen [Motrin] 600 mg PO Q8HR PRN #30 tab 03/23/23 11/17/23 Rx Vancomycin HCl [Vancocin HCl] 125 mg PO QID #40 cap 11/07/23 11/17/23 Rx Docusate Sodium [Dok] 100 mg PO DAILY 11/17/23 11/17/23 History Gabapentin 600 mg PO HS 11/17/23 11/17/23 History Insulin Glargine,Hum.rec.anlog 30 units SQ DAILY 11/17/23 11/17/23 History [Lantus Solostar Pen] Ondansetron Odt [Zofran Odt] 8 mg PO Q8HR PRN 11/17/23 11/17/23 History Scopolamine 1 mg/72 Hr Patch 1 patch TRANSDERM Q72H PRN 11/17/23 11/17/23 History [TransDerm Scop] Tirzepatide [Mounjaro] 5 mg SQ FR 11/17/23 11/17/23 History busPIRone HCL 15 mg PO BID 11/17/23 11/17/23 History lisinopriL [Zestril] 2.5 mg PO DAILY 11/17/23 11/17/23 History Allergies Allergy/AdvReac Type Severity Reaction Status Date / Time oxycodone [From Percocet] Allergy Unknown Swelling; Verified 11/16/23 16:42 (WAS ABLE TO TAKE ALONG WITH BENADRYL) apricot Allergy Dyspnea Verified 11/16/23 16:42 barium sulfate Allergy Anaphylaxis Verified 11/16/23 16:42 [From Readi-Cat] codeine Allergy Anaphylaxis Verified 11/16/23 16:42 fentanyl Allergy Rash/Hives Verified 11/16/23 16:42 hydrocodone [From Lortab] Allergy Swelling Verified 11/16/23 16:42 Iodinated Contrast Media Allergy Anaphylaxis Verified 11/16/23 16:42 iodine Allergy Rash/Hives Verified 11/16/23 16:42 iron Allergy Swelling Verified 11/16/23 16:42 levofloxacin [From Levaquin] Allergy Swelling Verified 11/16/23 16:42 morphine Allergy Rash/Hives, Verified 11/16/23 16:42 Nausea/Vomiting peach Allergy Swelling Verified 11/16/23 16:42 peanut Allergy Swelling Verified 11/16/23 16:42 peanut oil Allergy Anaphylaxis Verified 11/16/23 16:42 shellfish derived [Shellfish] Allergy Anaphylaxis Verified 11/16/23 16:42 strawberry Allergy Anaphylaxis Verified 11/16/23 16:42 sucralfate [From Carafate] Allergy Swelling Verified 11/16/23 16:42 Sulfa (Sulfonamide Allergy Anaphylaxis Verified 11/16/23 16:42 Antibiotics) sulfamethoxazole Allergy Anaphylaxis Verified 11/16/23 16:42 [From Bactrim] tree nut [Nut] Allergy Swelling Verified 11/16/23 16:42 trimethoprim [From Bactrim] Allergy Anaphylaxis Verified 11/16/23 16:42 metronidazole [From Flagyl] AdvReac Unknown Verified 11/16/23 16:42 Physical Exam Vitals: Vital Signs Temp Pulse Pulse Resp BP BP Pulse Ox 11/17/23 07:05 97.6 F 85 16 97/62 95 11/17/23 00:53 93 95/66 92 L 11/16/23 20:22 98.6 F 89 14 111/74 97 11/16/23 20:08 98 16 107/76 93 L 11/16/23 18:48 114 H 20 116/85 93 L 11/16/23 16:39 97.9 F 134 H 18 93/69 97 Intake and Output 11/16/23 11/17/23 11/17/23 22:59 06:59 14:59 Other: # Voids 4 Weight 83.915 kg General appearance: alert, in no apparent distress Eye exam: Present: normal appearance Neck exam: Present: normal inspection Respiratory exam: Present: normal lung sounds bilaterally Cardiovascular Exam: Present: normal rhythm GI/Abdominal exam: Present: soft (Diffuse abdominal tenderness to palpation worse in the lower abdomen. No rebound guarding or rigidity. Bowel sounds present.) Neurological exam: Present: alert, oriented X3 Skin exam: Present: warm, dry Results CBC & Chem 7: 11/17/23 08:23 11/17/23 15:28 Labs: Abnormal Lab Results - Last 24 Hours (Table) 11/16/23 11/16/23 11/16/23 Range/Units 17:43 17:43 17:43 WBC 12.5 H (3.8-10.6) k/uL RBC 5.65 H (3.80-5.40) m/uL Hgb (11.4-16.0) gm/dL MCV 77.3 L (80.0-100.0) fL MCH 24.5 L (25.0-35.0) pg MCHC (31.0-37.0) g/dL RDW 15.9 H (11.5-15.5) % Sodium 135 L (137-145) mmol/L Potassium 3.0 L (3.5-5.1) mmol/L Chloride 95 L (98-107) mmol/L Carbon Dioxide (22-30) mmol/L Creatinine (0.52-1.04) mg/dL Glucose 189 H (74-99) mg/dL POC Glucose (mg/dL) (70-110) mg/dL Calcium (8.4-10.2) mg/dL Phosphorus 5.5 H (2.5-4.5) mg/dL Magnesium 1.0 L (1.6-2.3) mg/dL AST 44 H (14-36) U/L ALT 48 H (4-34) U/L Total Protein 8.3 H (6.3-8.2) g/dL Urine Appearance Cloudy H (Clear) Urine Protein 1+ H (Negative) Ur Leukocyte Esterase Large H (Negative) Urine WBC 29 H (0-5) /hpf Ur Squamous Epith Cells 8 H (0-4) /hpf Hyaline Casts 216 H (0-2) /lpf Urine Mucus Many H (None) /hpf 11/17/23 11/17/23 11/17/23 Range/Units 08:23 08:23 11:21 WBC (3.8-10.6) k/uL RBC (3.80-5.40) m/uL Hgb 11.1 L (11.4-16.0) gm/dL MCV (80.0-100.0) fL MCH (25.0-35.0) pg MCHC 28.5 L (31.0-37.0) g/dL RDW (11.5-15.5) % Sodium 131 L (137-145) mmol/L Potassium (3.5-5.1) mmol/L Chloride (98-107) mmol/L Carbon Dioxide 21 L (22-30) mmol/L Creatinine 0.49 L (0.52-1.04) mg/dL Glucose 400 H (74-99) mg/dL POC Glucose (mg/dL) 268 H (70-110) mg/dL Calcium 7.8 L (8.4-10.2) mg/dL Phosphorus (2.5-4.5) mg/dL Magnesium 1.1 L (1.6-2.3) mg/dL AST 60 H (14-36) U/L ALT 48 H (4-34) U/L Total Protein 6.2 L (6.3-8.2) g/dL Urine Appearance (Clear) Urine Protein (Negative) Ur Leukocyte Esterase (Negative) Urine WBC (0-5) /hpf Ur Squamous Epith Cells (0-4) /hpf Hyaline Casts (0-2) /lpf Urine Mucus (None) /hpf Assessment and Plan Assessment: 1. Persistent abdominal pain with nausea, vomiting and diarrhea --Patient had CT of the abdomen completed in ED which does not reveal any acute abnormality in abdomen or pelvis -Blood work completed reveals negative amylase lipase; mild transaminitis -Patient is admitted for further evaluation and surgical consult and evaluation 2. Electrolyte imbalance; marked hypokalemia and hypomagnesemia; patient is supplemented in ED; will monitor electrolytes closely and supplement as needed 3. Transaminitis; AST/ALT elevated at 44/48 with slight upward trend of AST at 60; will monitor liver enzymes closely; will order right upper quadrant ultrasound if liver enzymes continue to trend up along with acute hepatitis profile 4. Hyperglycemia without acidosis/diabetes mellitus with long-term insulin use; patient takes Levemir 30 units subcu daily; monitor Accu-Cheks before every meal and at bedtime with insulin sliding scale 5. Persistent diarrhea; presumed C. difficile colitis; patient has not been a ble to give any stool specimen yet; remains on oral vancomycin 6. Neuropathy/fibromyalgia; patient takes Neurontin 300 mg every morning and 600 mg nightly 7. Hyperlipidemia; Lipitor 40 mg p.o. nightly; will discontinue statins if liver enzymes continue to trend up 8. Attention; propranolol 80 mg daily 9. Anxiety/depression; Remeron 15 mg p.o. nightly, Lexapro 20 mg daily, BuSpar 15 mg twice daily DVT prophylaxis; SCDs CODE STATUS; full code
[2023-11-17 20:15] LABS: Glucose,Whole Blood 144 mg/dL (70-110)
[2023-11-17] MEDS: ATORVASTATIN 40 MG TAB PO SCH (21:16)
[2023-11-17] MEDS: GABAPENTIN 300 MG CAP PO SCH (21:16)
[2023-11-17] MEDS: PROPRANOLOL LA 80 MG CAP.SA.24H PO SCH (21:16)
[2023-11-17] MEDS: PANTOPRAZOLE 40 MG/10 ML VIAL IVP SCH (21:17)
[2023-11-17] MEDS: MIRTAZAPINE 15 MG TAB PO SCH (21:17)
[2023-11-17] MEDS: ZOLPIDEM 5 MG TAB PO PRN (22:21)
--- NOTE | 2023-11-18 01:54 | P.GSCN ---
History of Present Illness Consult date: 11/17/23 Reason for Consult: persistent diarrhea and vomiting History of present illness: 53-year-old female, history of diabetes mellitus, asthma, hyperlipidemia, fibromyalgia, presents to the ER for evaluation today. Patient notes today for evaluation regards to significant abdominal wall pain abnormal electrolytes nausea vomiting diarrhea persistent diarrhea with now decreasing any bowel movements at all. Decreased appetite with significant weight loss --Patient was seen in the ED on 11/11/2023 with similar complaints of nausea vomiting diarrhea and abdominal pain that has been going on for past 2 weeks; patient was empirically started on oral vancomycin for C. difficile colitis and was discharged home; symptoms worsened and patient presented back to ED for further evaluation Blood work completed in ED reveals a WBC of 12.5 which is improved from 14.4 on previous admission; hemoglobin of 13.9, platelet 433, sodium 135, potassium 3.0, BUNs/creatinine of 12/0.87, blood glucose of 189, lactic acid level of 1.6 magnesium 1.0, phosphorus 5.5, AST/ALT elevated at 60/48, amylase lipase are negative, UA is positive for large leukocyte esterase, WBCs and bacteria Review of Systems - Cardiovascular Reports edema, Denies chest pain, Denies claudication, Denies dyspnea on exertion, Denies orthopnea, Denies palpitations - Gastrointestinal Reports abdominal pain, Reports bloating, Reports diarrhea, Reports excessive gas, Reports nausea, Reports vomiting, Denies BRBPR, Denies coffee ground emesis, Denies constipation, Denies heartburn, Denies hematemesis, Denies hematochezia, Denies jaundice, Denies melena - Musculoskeletal Reports atrophy Past Medical History Past Medical History: Asthma, Cancer, CVA/TIA, Diabetes Mellitus, Fibromyalgia, GERD/Reflux, Hyperlipidemia, Osteoarthritis (OA), Pneumonia Additional Past Medical History / Comment(s): Had Iron infusions in Apr 2019. Hx TIA 2015. Diabetic neuropathy eli feet, migraines, cervical disc disease, DDD, eli tinnitis, arthiritis bilateral shoulders, IBS, HX R arm fx yrs ago, R ovarian cyst, hiatal hernia, UTIs, urinary calculus, pancreatitis x 2, stomach ulcer. Hx cervical cancer. COVID 08/2020 History of Any Multi-Drug Resistant Organisms: C-DIFF Year Discovered:: 2016 MDRO Source:: None Past Surgical History: Appendectomy, Bariatric Surgery, Cholecystectomy, Hysterectomy, Tonsillectomy Additional Past Surgical History / Comment(s): 2010 felix-en-Y, fistula repair 2011, 2011 gastric bypass revision, bowel resection, lap gastrojejunostomy anastamosis revision, EGD and colonoscopy, cone bx-cervical cancer removed with cryo, L fallopian tube removed due to cyst, picc line in and out, CERVICAL FUSION 12/21/16. Past Anesthesia/Blood Transfusion Reactions: Family History of Problems w/ Anesthesia, Motion Sickness, Postoperative Nausea & Vomiting (PONV) Additional Past Anesthesia/Blood Transfusion Reaction / Comm: Pt states she has never recieved blood. FAMILY HX PONV. Past Psychological History: Anxiety, Depression Additional Psychological History / Comment(s): Pt lives with her significant other-common law . Smoking Status: Never smoker Past Alcohol Use History: None Reported Past Drug Use History: None Reported Additional Drug Use History / Comment(s): Pt has a medical marijuana card and tried using it for pain control but it makes her nauseated so she does not use marijuana at all. - Past Family History Brother(s) Family Medical History: Deep Vein Thrombosis (DVT) Father Family Medical History: Cancer, Deep Vein Thrombosis (DVT), Pulmonary Embolus Additional Family Medical History / Comment(s): Father had poss colon and lung cancer and at age 73yrs. Mother Family Medical History: Coronary Artery Disease (CAD), Diabetes Mellitus, Deep Vein Thrombosis (DVT), Hypertension, Pulmonary Embolus Additional Family Medical History / Comment(s): Mother is alive and 73 yrs old. Medications and Allergies Home Medications Medication Instructions Recorded Confirmed Type Cetirizine HCl [Zyrtec] 10 mg PO DAILY 06/13/18 11/17/23 History Mirtazapine [Remeron] 15 mg PO HS 10/08/18 11/17/23 History LORazepam [Ativan] 0.5 mg PO Q6H PRN 04/23/19 11/17/23 History Propranolol HCl [Inderal Xl] 80 mg PO HS 04/23/19 11/17/23 History Gabapentin 300 mg PO DAILY 02/28/22 11/17/23 History Rizatriptan Odt [Maxalt SAFETY LEAD] 10 mg PO TID PRN 02/28/22 11/17/23 History metFORMIN HCL ER [Glucophage XR] 2,000 mg PO DAILY 02/28/22 11/17/23 History Furosemide [Lasix] 20 mg PO BID 02/16/23 11/17/23 History Simvastatin [Zocor] 80 mg PO HS 02/28/23 11/17/23 History Escitalopram [Lexapro] 20 mg PO DAILY 03/21/23 11/17/23 History Ibuprofen [Motrin] 600 mg PO Q8HR PRN #30 tab 03/23/23 11/17/23 Rx Vancomycin HCl [Vancocin HCl] 125 mg PO QID #40 cap 11/07/23 11/17/23 Rx Docusate Sodium [Dok] 100 mg PO DAILY 11/17/23 11/17/23 History Gabapentin 600 mg PO HS 11/17/23 11/17/23 History Insulin Glargine,Hum.rec.anlog 30 units SQ DAILY 11/17/23 11/17/23 History [Lantus Solostar Pen] Ondansetron Odt [Zofran Odt] 8 mg PO Q8HR PRN 11/17/23 11/17/23 History Scopolamine 1 mg/72 Hr Patch 1 patch TRANSDERM Q72H PRN 11/17/23 11/17/23 History [TransDerm Scop] Tirzepatide [Mounjaro] 5 mg SQ FR 11/17/23 11/17/23 History busPIRone HCL 15 mg PO BID 11/17/23 11/17/23 History lisinopriL [Zestril] 2.5 mg PO DAILY 11/17/23 11/17/23 History Allergies Allergy/AdvReac Type Severity Reaction Status Date / Time oxycodone [From Percocet] Allergy Unknown Swelling; Verified 11/16/23 16:42 (WAS ABLE TO TAKE ALONG WITH BENADRYL) apricot Allergy Dyspnea Verified 11/16/23 16:42 barium sulfate Allergy Anaphylaxis Verified 11/16/23 16:42 [From Readi-Cat] codeine Allergy Anaphylaxis Verified 11/16/23 16:42 fentanyl Allergy Rash/Hives Verified 11/16/23 16:42 hydrocodone [From Lortab] Allergy Swelling Verified 11/16/23 16:42 Iodinated Contrast Media Allergy Anaphylaxis Verified 11/16/23 16:42 iodine Allergy Rash/Hives Verified 11/16/23 16:42 iron Allergy Swelling Verified 11/16/23 16:42 levofloxacin [From Levaquin] Allergy Swelling Verified 11/16/23 16:42 morphine Allergy Rash/Hives, Verified 11/16/23 16:42 Nausea/Vomiting peach Allergy Swelling Verified 11/16/23 16:42 peanut Allergy Swelling Verified 11/16/23 16:42 peanut oil Allergy Anaphylaxis Verified 11/16/23 16:42 shellfish derived [Shellfish] Allergy Anaphylaxis Verified 11/16/23 16:42 strawberry Allergy Anaphylaxis Verified 11/16/23 16:42 sucralfate [From Carafate] Allergy Swelling Verified 11/16/23 16:42 Sulfa (Sulfonamide Allergy Anaphylaxis Verified 11/16/23 16:42 Antibiotics) sulfamethoxazole Allergy Anaphylaxis Verified 11/16/23 16:42 [From Bactrim] tree nut [Nut] Allergy Swelling Verified 11/16/23 16:42 trimethoprim [From Bactrim] Allergy Anaphylaxis Verified 11/16/23 16:42 metronidazole [From Flagyl] AdvReac Unknown Verified 11/16/23 16:42 Surgical - Exam Vital Signs Temp Pulse Resp BP Pulse Ox 97.9 F 134 H 18 93/69 97 11/16/23 16:39 11/16/23 16:39 11/16/23 16:39 11/16/23 16:39 11/16/23 16:39 - General no distress - Eyes PERRL, normal ocular movement - Respiratory normal expansion, normal respiratory effort absent: dullness, wheezing - Cardiovascular Rhythm: regular Heart Sounds: normal: S1, S2 - Abdomen Abdomen: soft, non tender, bowel sounds, no guarding, no rigid, no rebound, distended Hernia: none - Rectum Rectum: normal sphincter tone Results - Labs 11/17/23 08:23 11/17/23 15:28 Abnormal Lab Results - Last 24 Hours (Table) 11/17/23 11/17/23 11/17/23 Range/Units 08:23 08:23 11:21 Hgb 11.1 L (11.4-16.0) gm/dL MCHC 28.5 L (31.0-37.0) g/dL Sodium 131 L (137-145) mmol/L Potassium (3.5-5.1) mmol/L Carbon Dioxide 21 L (22-30) mmol/L Creatinine 0.49 L (0.52-1.04) mg/dL Glucose 400 H (74-99) mg/dL POC Glucose (mg/dL) 268 H (70-110) mg/dL Calcium 7.8 L (8.4-10.2) mg/dL Magnesium 1.1 L (1.6-2.3) mg/dL AST 60 H (14-36) U/L ALT 48 H (4-34) U/L Total Protein 6.2 L (6.3-8.2) g/dL 11/17/23 11/17/23 11/17/23 Range/Units 15:28 16:19 20:14 Hgb (11.4-16.0) gm/dL MCHC (31.0-37.0) g/dL Sodium (137-145) mmol/L Potassium 3.4 L (3.5-5.1) mmol/L Carbon Dioxide (22-30) mmol/L Creatinine 0.47 L (0.52-1.04) mg/dL Glucose 145 H (74-99) mg/dL POC Glucose (mg/dL) 139 H 144 H (70-110) mg/dL Calcium 8.1 L (8.4-10.2) mg/dL Magnesium (1.6-2.3) mg/dL AST (14-36) U/L ALT (4-34) U/L Total Protein (6.3-8.2) g/dL Diabetes panel 11/17/23 11/17/23 Range/Units 08:23 15:28 Sodium 131 L 137 (137-145) mmol/L Potassium 3.6 3.4 L (3.5-5.1) mmol/L Chloride 100 105 (98-107) mmol/L Carbon Dioxide 21 L 23 (22-30) mmol/L BUN 9 8 (7-17) mg/dL Creatinine 0.49 L 0.47 L (0.52-1.04) mg/dL Glucose 400 H 145 H (74-99) mg/dL Calcium 7.8 L 8.1 L (8.4-10.2) mg/dL AST 60 H (14-36) U/L ALT 48 H (4-34) U/L Alkaline Phosphatase 77 (38-126) U/L Total Protein 6.2 L (6.3-8.2) g/dL Albumin 3.5 (3.5-5.0) g/dL Calcium panel 11/17/23 11/17/23 Range/Units 08:23 15:28 Calcium 7.8 L 8.1 L (8.4-10.2) mg/dL Phosphorus 3.6 (2.5-4.5) mg/dL Albumin 3.5 (3.5-5.0) g/dL Pituitary panel 11/17/23 11/17/23 Range/Units 08:23 15:28 Sodium 131 L 137 (137-145) mmol/L Potassium 3.6 3.4 L (3.5-5.1) mmol/L Chloride 100 105 (98-107) mmol/L Carbon Dioxide 21 L 23 (22-30) mmol/L BUN 9 8 (7-17) mg/dL Creatinine 0.49 L 0.47 L (0.52-1.04) mg/dL Glucose 400 H 145 H (74-99) mg/dL Calcium 7.8 L 8.1 L (8.4-10.2) mg/dL Adrenal panel 11/17/23 11/17/23 Range/Units 08:23 15:28 Sodium 131 L 137 (137-145) mmol/L Potassium 3.6 3.4 L (3.5-5.1) mmol/L Chloride 100 105 (98-107) mmol/L Carbon Dioxide 21 L 23 (22-30) mmol/L BUN 9 8 (7-17) mg/dL Creatinine 0.49 L 0.47 L (0.52-1.04) mg/dL Glucose 400 H 145 H (74-99) mg/dL Calcium 7.8 L 8.1 L (8.4-10.2) mg/dL Total Bilirubin 0.7 (0.2-1.3) mg/dL AST 60 H (14-36) U/L ALT 48 H (4-34) U/L Alkaline Phosphatase 77 (38-126) U/L Total Protein 6.2 L (6.3-8.2) g/dL Albumin 3.5 (3.5-5.0) g/dL Assessment and Plan (1) C. difficile colitis Current Visit: No Status: Acute Code(s): A04.72 - ENTEROCOLITIS D/T CLOSTRIDIUM DIFFICILE, NOT SPCF RECUR SNOMED Code(s): 300192969 (2) Diarrhea Current Visit: No Status: Acute Code(s): R19.7 - DIARRHEA, UNSPECIFIED SNOMED Code(s): 72015229 (3) Nausea & vomiting Current Visit: No Status: Acute Code(s): R11.2 - NAUSEA WITH VOMITING, UNSPECIFIED SNOMED Code(s): 17984680 Plan: normal CT scan, the likelihood of c-diff is still there but not high on the differential diagnosis of persistent diarrhea. send stool cultures stool for ova and parasite stool WBS C-Diff test for covid Hydrate, once stable prep for EGD and colonoscopy discression of oncoming surgeon on the service
[2023-11-18 05:42] LABS: Glucose,Whole Blood 155 mg/dL (70-110)
[2023-11-18] MEDS: ONDANSETRON 4 MG/2 ML VIAL IVP PRN (05:53)
[2023-11-18] MEDS: INSULIN DETEMIR (LEVEMIR) 100 UNIT/ML SYR SQ SCH (06:57)
[2023-11-18] MEDS: LORATADINE 10 MG TAB PO SCH (09:31)
[2023-11-18] MEDS: GABAPENTIN 300 MG CAP PO SCH (09:31)
[2023-11-18 09:33] LABS: HGB 10.5 g/dL (12.0-15.0); MCH 24.9 pg (27.0-32.0); MCV 83.1 FL (80.0-97.0); Mean Platelet Volume 10.8 FL (9.5-12.2); NRBC Per 100 WBC 0 X 10*3/uL (0.00-0.01); Platelet Count 371 X 10*3/uL (140-440); RBC 4.21 X 10*6/uL (4.10-5.20); RDW 16.1 % (11.5-14.5); WBC 11.11 X 10*3/uL (4.50-10.00)
[2023-11-18 09:42] LABS: BUN/Creat Ratio 12.17 Ratio (12.00-20.00); Blood Urea Nitrogen 7.3 mg/dL (9.0-27.0); Calcium 8.1 mg/dL (8.7-10.3); Carbon Dioxide 24.4 mmol/L (21.6-31.8); Chloride 104 mmol/L (96-109); Glucose 155 mg/dL (70-110); Potassium 3.7 mmol/L (3.5-5.5); Sodium 139 mmol/L (135-145)
--- NOTE | 2023-11-18 09:43 | P.PN ---
Subjective Progress Note Date: 11/18/23 patient has complaints of some mild abdominal pain and diarrhea. She states she feels better than yesterday. On exam vital signs appear stable. Abdomen soft there is minimal tenderness throughout. History of diarrhea. Patient may require colonoscopy. She'll be evaluated Dr. Biggs in the a.m. Objective - Vital Signs Vital signs: Vital Signs Temp 98.0 F 11/18/23 07:30 Pulse 73 11/18/23 07:30 Resp 19 11/18/23 07:30 BP 108/73 11/18/23 07:30 Pulse Ox 97 11/18/23 07:30 FiO2 Intake & Output 11/17/23 11/18/23 11/18/23 18:59 06:59 18:59 Intake Total 30 30 Balance 30 30 Intake: IV 30 30 Invasive Line 1 10 10 Invasive Line 2 10 10 Invasive Line 3 10 10 Other: Voiding Method Toilet # Voids 2 1 - Labs CBC & Chem 7: 11/18/23 05:59 11/18/23 05:59 Labs: Abnormal Lab Results - Last 24 Hours (Table) 11/17/23 11/17/23 11/17/23 Range/Units 08:23 11:21 15:28 WBC (4.50-10.00) X 10*3/uL Hgb (12.0-15.0) g/dL Hct (37.2-46.3) % MCH (27.0-32.0) pg MCHC (32.0-37.0) g/dL RDW (11.5-14.5) % Sodium 131 L (137-145) mmol/L Potassium 3.4 L (3.5-5.1) mmol/L Carbon Dioxide 21 L (22-30) mmol/L BUN (9.0-27.0) mg/dL Creatinine 0.49 L 0.47 L (0.52-1.04) mg/dL Glucose 400 H 145 H (74-99) mg/dL POC Glucose (mg/dL) 268 H (70-110) mg/dL Calcium 7.8 L 8.1 L (8.4-10.2) mg/dL Magnesium 1.1 L (1.6-2.3) mg/dL AST 60 H (14-36) U/L ALT 48 H (4-34) U/L Total Protein 6.2 L (6.3-8.2) g/dL 11/17/23 11/17/23 11/18/23 Range/Units 16:19 20:14 05:41 WBC (4.50-10.00) X 10*3/uL Hgb (12.0-15.0) g/dL Hct (37.2-46.3) % MCH (27.0-32.0) pg MCHC (32.0-37.0) g/dL RDW (11.5-14.5) % Sodium (137-145) mmol/L Potassium (3.5-5.1) mmol/L Carbon Dioxide (22-30) mmol/L BUN (9.0-27.0) mg/dL Creatinine (0.52-1.04) mg/dL Glucose (74-99) mg/dL POC Glucose (mg/dL) 139 H 144 H 155 H (70-110) mg/dL Calcium (8.4-10.2) mg/dL Magnesium (1.6-2.3) mg/dL AST (14-36) U/L ALT (4-34) U/L Total Protein (6.3-8.2) g/dL 11/18/23 11/18/23 Range/Units 05:59 05:59 WBC 11.11 H (4.50-10.00) X 10*3/uL Hgb 10.5 L (12.0-15.0) g/dL Hct 35.0 L (37.2-46.3) % MCH 24.9 L (27.0-32.0) pg MCHC 30.0 L (32.0-37.0) g/dL RDW 16.1 H (11.5-14.5) % Sodium (137-145) mmol/L Potassium (3.5-5.1) mmol/L Carbon Dioxide (22-30) mmol/L BUN 7.3 L (9.0-27.0) mg/dL Creatinine (0.52-1.04) mg/dL Glucose 155 H (74-99) mg/dL POC Glucose (mg/dL) (70-110) mg/dL Calcium 8.1 L (8.4-10.2) mg/dL Magnesium (1.6-2.3) mg/dL AST (14-36) U/L ALT (4-34) U/L Total Protein (6.3-8.2) g/dL
[2023-11-18 11:14] LABS: Basophils # (M) 0.22 X 10*3/uL (0.00-0.10); Elliptocytes 2+; Eosinophils # (M) 0.11 X 10*3/uL (0.04-0.35); Lymphocytes # (M) 3.33 X 10*3/uL (0.90-5.00); Monocytes # (M) 0.78 X 10*3/uL (0.20-1.00); Neutrophils # (M) 6.67 X 10*3/uL (1.80-7.70); Neutrophils % (M) 60 %
[2023-11-18 11:43] LABS: Glucose,Whole Blood 126 mg/dL (70-110)
[2023-11-18] MEDS: LORazepam 0.5 MG TAB PO PRN (14:15)
--- NOTE | 2023-11-18 14:44 | P.PN ---
Subjective Progress Note Date: 11/18/23 53-year-old female, history of diabetes mellitus, asthma, hyperlipidemia, fibromyalgia, presents to the ER for evaluation today. Patient notes today for evaluation regards to significant abdominal wall pain abnormal electrolytes nausea vomiting diarrhea persistent diarrhea with now decreasing any bowel m ovements at all. Decreased appetite with significant weight loss --Patient was seen in the ED on 11/11/2023 with similar complaints of nausea vomiting diarrhea and abdominal pain that has been going on for past 2 weeks; patient was empirically started on oral vancomycin for C. difficile colitis and was discharged home; symptoms worsened and patient presented back to ED for further evaluation Blood work completed in ED reveals a WBC of 12.5 which is improved from 14.4 on previous admission; hemoglobin of 13.9, platelet 433, sodium 135, potassium 3.0, BUNs/creatinine of 12/0.87, blood glucose of 189, lactic acid level of 1.6 magnesium 1.0, phosphorus 5.5, AST/ALT elevated at 60/48, amylase lipase are negative, UA is positive for large leukocyte esterase, WBCs and bacteria --Patient has been evaluated by general surgery and recommending EGD and colonoscopy -- Given persistent diarrhea patient is recommended to continue with oral vancomycin -Stool studies have been sent including ova, parasites, stool WBCs and culture and C. difficile toxin Objective - Vital Signs Vital signs: Vital Signs Temp 98.0 F 11/18/23 07:30 Pulse 73 11/18/23 07:30 Resp 19 11/18/23 07:30 BP 108/73 11/18/23 07:30 Pulse Ox 97 11/18/23 07:30 FiO2 Intake & Output 11/17/23 11/18/23 11/18/23 18:59 06:59 18:59 Intake Total 30 30 Balance 30 30 Intake: IV 30 30 Invasive Line 1 10 10 Invasive Line 2 10 10 Invasive Line 3 10 10 Other: Voiding Method Toilet # Voids 2 1 - Exam General appearance: alert, in no apparent distress Eye exam: Present: normal appearance Neck exam: Present: normal inspection Respiratory exam: Present: normal lung sounds bilaterally Cardiovascular Exam: Present: normal rhythm GI/Abdominal exam: Present: soft (Diffuse abdominal tenderness to palpation worse in the lower abdomen. No rebound guarding or rigidity. Bowel sounds present.) Neurological exam: Present: alert, oriented X3 Skin exam: Present: warm, dry - Labs CBC & Chem 7: 11/18/23 05:59 11/18/23 05:59 Labs: Abnormal Lab Results - Last 24 Hours (Table) 11/17/23 11/17/23 11/17/23 Range/Units 11:21 15:28 16:19 WBC (4.50-10.00) X 10*3/uL Hgb (12.0-15.0) g/dL Hct (37.2-46.3) % MCH (27.0-32.0) pg MCHC (32.0-37.0) g/dL RDW (11.5-14.5) % Potassium 3.4 L (3.5-5.1) mmol/L BUN (9.0-27.0) mg/dL Creatinine 0.47 L (0.52-1.04) mg/dL Glucose 145 H (74-99) mg/dL POC Glucose (mg/dL) 268 H 139 H (70-110) mg/dL Calcium 8.1 L (8.4-10.2) mg/dL 11/17/23 11/18/23 11/18/23 Range/Units 20:14 05:41 05:59 WBC 11.11 H (4.50-10.00) X 10*3/uL Hgb 10.5 L (12.0-15.0) g/dL Hct 35.0 L (37.2-46.3) % MCH 24.9 L (27.0-32.0) pg MCHC 30.0 L (32.0-37.0) g/dL RDW 16.1 H (11.5-14.5) % Potassium (3.5-5.1) mmol/L BUN (9.0-27.0) mg/dL Creatinine (0.52-1.04) mg/dL Glucose (74-99) mg/dL POC Glucose (mg/dL) 144 H 155 H (70-110) mg/dL Calcium (8.4-10.2) mg/dL 11/18/23 Range/Units 05:59 WBC (4.50-10.00) X 10*3/uL Hgb (12.0-15.0) g/dL Hct (37.2-46.3) % MCH (27.0-32.0) pg MCHC (32.0-37.0) g/dL RDW (11.5-14.5) % Potassium (3.5-5.1) mmol/L BUN 7.3 L (9.0-27.0) mg/dL Creatinine (0.52-1.04) mg/dL Glucose 155 H (74-99) mg/dL POC Glucose (mg/dL) (70-110) mg/dL Calcium 8.1 L (8.4-10.2) mg/dL Assessment and Plan Assessment: 1. Persistent abdominal pain with nausea, vomiting and diarrhea --Patient had CT of the abdomen completed in ED which does not reveal any acute abnormality in abdomen or pelvis -Blood work completed reveals negative amylase lipase; mild transaminitis -Patient is admitted for further evaluation and surgical consult and evaluation 2. Electrolyte imbalance; marked hypokalemia and hypomagnesemia; patient is supplemented in ED; will monitor electrolytes closely and supplement as needed 3. Transaminitis; AST/ALT elevated at 44/48 with slight upward trend of AST at 60; will monitor liver enzymes closely; will order right upper quadrant ultrasound if liver enzymes continue to trend up along with acute hepatitis profile 4. Hyperglycemia without acidosis/diabetes mellitus with long-term insulin use; patient takes Levemir 30 units subcu daily; monitor Accu-Cheks before every meal and at bedtime with insulin sliding scale 5. Persistent diarrhea; presumed C. difficile colitis; patient has not been able to give any stool specimen yet; remains on oral vancomycin 6. Neuropathy/fibromyalgia; patient takes Neurontin 300 mg every morning and 600 mg nightly 7. Hyperlipidemia; Lipitor 40 mg p.o. nightly; will discontinue statins if liver enzymes continue to trend up 8. Attention; propranolol 80 mg daily 9. Anxiety/depression; Remeron 15 mg p.o. nightly, Lexapro 20 mg daily, BuSpar 15 mg twice daily DVT prophylaxis; SCDs CODE STATUS; full code
[2023-11-18 16:25] LABS: Glucose,Whole Blood 148 mg/dL (70-110)
[2023-11-18 20:34] LABS: Glucose,Whole Blood 172 mg/dL (70-110)
[2023-11-19 05:27] LABS: Glucose,Whole Blood 118 mg/dL (70-110)
[2023-11-19 05:36] LABS: Anisocytosis Slight; Basophils # (A) 0.1 k/uL (0-0.2); Basophils % (A) 1 %; Eosinophils # (A) 0.2 k/uL (0-0.7); Eosinophils % (A) 2 %; HCT 35.4 % (34.0-46.0); Hypochromasia Moderate; Lymphocytes # (A) 4.2 k/uL (1.0-4.8); Lymphocytes % (A) 39 %; MCH 25.3 pg (25.0-35.0); MCHC 31.1 g/dL (31.0-37.0); Mean Platelet Volume 9.6; Monocytes # (A) 0.6 k/uL (0-1.0); Monocytes % (A) 6 %; Neutrophils # (A) 5.7 k/uL (1.3-7.7); Neutrophils % (A) 52 %; Platelet Count 268 k/uL (150-450); RBC 4.35 m/uL (3.80-5.40); RDW 16.2 % (11.5-15.5)
[2023-11-19 05:37] LABS: MCV 81.4 fL (80.0-100.0)
[2023-11-19 05:52] LABS: African American GFR (CKD) >90 (>60 ml/min/1.73 sqM); Anion Gap 7 mmol/L; Blood Urea Nitrogen 10 mg/dL (7-17); Calcium 7.8 mg/dL (8.4-10.2); Carbon Dioxide 23 mmol/L (22-30); Chloride 111 mmol/L (98-107); Glucose 120 mg/dL (74-99); Non-African American GFR(CKD) >90 (>60 ml/min/1.73 sqM); Sodium 141 mmol/L (137-145)
[2023-11-19 05:57] LABS: Potassium 4.9 mmol/L (3.5-5.1)
[2023-11-19 07:23] LABS: Appearance,Urine Clear (Clear); Bilirubin,Urine Negative (Negative); Blood,Urine Negative (Negative); Color,Urine Light Yellow; Glucose,Urine (UA) Negative (Negative); Ketones,Urine Negative (Negative); Leukocyte Esterase,Urine Negative (Negative); Nitrite,Urine Negative (Negative); PH, Urine 5.5 (5.0-8.0); Protein,Urine Negative (Negative); Specific Gravity,Urine 1.017 (1.001-1.035); Urobilinogen,Urine <2.0 mg/dL (<2.0)
[2023-11-19 11:06] LABS: Glucose,Whole Blood 128 mg/dL (70-110)
--- NOTE | 2023-11-19 12:17 | P.PN ---
Subjective 53-year-old female, history of diabetes mellitus, asthma, hyperlipidemia, fibromyalgia, presents to the ER for evaluation today. Patient notes today for evaluation regards to significant abdominal wall pain abnormal electrolytes nausea vomiting diarrhea persistent diarrhea with now decreasing any bowel movements at all. Decreased appetite with significant weight loss --Patient was seen in the ED on 11/11/2023 with similar complaints of nausea vomiting diarrhea and abdominal pain that has been going on for past 2 weeks; patient was empirically started on oral vancomycin for C. difficile colitis and was discharged home; symptoms worsened and patient presented back to ED for further evaluation Blood work completed in ED reveals a WBC of 12.5 which is improved from 14.4 on previous admission; hemoglobin of 13.9, platelet 433, sodium 135, potassium 3.0, BUNs/creatinine of 12/0.87, blood glucose of 189, lactic acid level of 1.6 magnesium 1.0, phosphorus 5.5, AST/ALT elevated at 60/48, amylase lipase are negative, UA is positive for large leukocyte esterase, WBCs and bacteria --Patient has been evaluated by general surgery and recommending EGD and colonoscopy -- Given persistent diarrhea patient is recommended to continue with oral v ancomycin -Stool studies have been sent including ova, parasites, stool WBCs and culture and C. difficile toxin 11/19/2023 Patient is awake and alert at baseline She states she has not had diarrhea since last Sunday She has lower abdominal pain about 9/10, She has little nausea this morning but no cory vomiting. Appetite is poor. Patient denies urinary symptoms stating his only. Repeat urine analysis is normal CT of the abdomen and pelvis is negative for acute process. Patient is on oral vancomycin, as per patient this medication was started in the emergency room about 9 days ago for total of 10 days, she is supposed to finish her treatment tomorrow. Patient with no fever, and leukocytosis is only mild 11-12 K Surgery team are considering EGD/colonoscopy Discussed with staff Review of systems CONSTITUTIONAL: No fever, no malaise, no fatigue. HEENT: No recent visual problems or hearing problems. Denied any sore throat. CARDIOVASCULAR: No orthopnea, PND, no palpitations, no syncope. NEUROLOGICAL: No headaches, no weakness, no numbness. HEMATOLOGICAL: Denies any bleeding or petechiae. GENITOURINARY: Denies any burning micturition, frequency, or urgency. MUSCULOSKELETAL/RHEUMATOLOGICAL: Denies any joint pain, swelling, or any muscle pain. Active Medications Generic Name Dose Route Start Last Admin Trade Name Freq PRN Reason Stop Dose Admin Atorvastatin Calcium 40 mg 11/17/23 21:00 11/18/23 21:51 Atorvastatin 40 Mg Tab PO 40 mg HS VICTORINO Administration Buspirone HCl 15 mg 11/17/23 12:30 11/19/23 08:03 Buspirone Hcl 5 Mg Tab PO 15 mg BID VICTORINO Administration Escitalopram Oxalate 20 mg 11/17/23 12:30 11/19/23 08:04 Escitalopram 20 Mg Tab PO 20 mg DAILY VICTORINO Administration Gabapentin 300 mg 11/18/23 09:00 11/19/23 08:04 Gabapentin 300 Mg Cap PO 300 mg DAILY VICTORINO Administration Gabapentin 600 mg 11/17/23 21:00 11/18/23 21:51 Gabapentin 300 Mg Cap PO 600 mg HS VICTORINO Administration Hydromorphone HCl 1 mg 11/16/23 19:59 11/19/23 12:09 Hydromorphone 1 Mg/Ml 1 Ml Syringe IVP 1 mg Q3HR PRN Administration Severe Pain (Scale 7 to 10) Sodium Chloride 1,000 mls @ 130 mls/hr 11/16/23 20:00 11/19/23 10:47 Saline 0.9% IV Not Given .[id number] [facility] Insulin Aspart 0 unit 11/17/23 12:30 11/19/23 11:06 Insulin Aspart (Novolog) 100 Unit/Ml Vial SQ 11/24/23 12:[address] [facility] Protocol Insulin Detemir 30 unit 11/18/23 07:00 11/19/23 06:36 Insulin Detemir (Levemir) 100 Unit/Ml Syr SQ 30 unit DAILY@0700 VICTORINO Administration Loratadine 10 mg 11/18/23 09:00 11/19/23 08:04 Loratadine 10 Mg Tab PO 10 mg DAILY VICTORINO Administration Lorazepam 0.5 mg 11/17/23 12:16 11/18/23 14:15 Lorazepam 0.5 Mg Tab PO 0.5 mg Q6H PRN Administration Anxiety Mirtazapine 15 mg 11/17/23 21:00 11/18/23 21:51 Mirtazapine 15 Mg Tab PO 15 mg HS VICTORINO Administration Naloxone HCl 0.2 mg 11/16/23 19:59 Naloxone 0.4 Mg/Ml 1 Ml Vial IV Q2M PRN Opioid Reversal Ondansetron HCl 4 mg 11/16/23 19:59 11/18/23 13:07 Ondansetron 4 Mg/2 Ml Vial IVP 4 mg Q8HR PRN Administration Nausea And Vomiting Pantoprazole Sodium 40 mg 11/17/23 21:15 11/19/23 08:04 Pantoprazole 40 Mg/10 Ml Vial IVP 40 mg BID VICTORINO Administration Propranolol HCl 80 mg 11/17/23 21:00 11/18/23 21:51 Propranolol La 80 Mg Cap.Sa.24h PO 80 mg HS VICTORINO Administration Vancomycin HCl 125 mg 11/17/23 13:00 11/19/23 12:10 Vancomycin 125 Mg Capsule PO 125 mg QID VICTORINO Administration Protocol Zolpidem Tartrate 5 mg 11/17/23 21:09 11/19/23 00:18 Zolpidem 5 Mg Tab PO 5 mg HS PRN Administration Insomnia Objective - Vital Signs Vital signs: Vital Signs Temp 98.5 F 11/19/23 07:46 Pulse 92 11/19/23 07:46 Resp 16 11/19/23 07:46 BP 109/71 11/19/23 07:46 Pulse Ox 92 L 11/19/23 07:46 FiO2 Intake & Output 11/18/23 11/19/23 11/19/23 18:59 06:59 18:59 Intake Total 30 Balance 30 Intake: IV 30 Invasive Line 1 10 Invasive Line 2 10 Invasive Line 3 10 Other: # Voids 3 2 - Exam GENERAL: The patient is alert and oriented x3, not in any acute distress. Well developed, well nourished. HEENT: Pupils are round and equally reacting to light. EOMI. No scleral icterus. No conjunctival pallor. Normocephalic, atraumatic. No pharyngeal erythema. No thyromegaly. CARDIOVASCULAR: S1 and S2 present. No murmurs, rubs, or gallops. PULMONARY: Chest is clear to auscultation, no wheezing , no crackles. -ABDOMEN: Soft, lower abdominal tenderness, nondistended, normoactive bowel sounds. No palpable organomegaly. MUSCULOSKELETAL: No joint swelling or deformity. EXTREMITIES: No cyanosis, clubbing, or pedal edema. NEUROLOGICAL: Gross neurological examination did not reveal any focal deficits. SKIN: No rashes. no petechiae. - Labs CBC & Chem 7: 11/19/23 05:03 11/19/23 05:03 Labs: Abnormal Lab Results - Last 24 Hours (Table) 11/18/23 11/18/23 11/19/23 Range/Units 16:24 20:33 05:03 WBC 11.0 H (3.8-10.6) k/uL Hgb 11.0 L (11.4-16.0) gm/dL RDW 16.2 H (11.5-15.5) % Chloride (98-107) mmol/L Glucose (74-99) mg/dL POC Glucose (mg/dL) 148 H 172 H (70-110) mg/dL Calcium (8.4-10.2) mg/dL 11/19/23 11/19/23 11/19/23 Range/Units 05:03 05:25 11:04 WBC (3.8-10.6) k/uL Hgb (11.4-16.0) gm/dL RDW (11.5-15.5) % Chloride 111 H (98-107) mmol/L Glucose 120 H (74-99) mg/dL POC Glucose (mg/dL) 118 H 128 H (70-110) mg/dL Calcium 7.8 L (8.4-10.2) mg/dL Assessment and Plan Assessment: 1. Persistent abdominal pain with nausea,and diarrhea (diarrhea has stopped since admission) --Patient had CT of the abdomen completed in ED which does not reveal any acute abnormality in abdomen or pelvis -Blood work completed reveals negative amylase lipase; mild transaminitis -Patient is admitted for further evaluation and surgical consult and evaluation -Surgery team are considering EGD/colonoscopy 2. Electrolyte imbalance; marked hypokalemia and hypomagnesemia; patient is supplemented in ED; will monitor electrolytes closely and supplement as needed 3. Transaminitis; AST/ALT elevated at 44/48 with slight upward trend of AST at 60; will monitor liver enzymes closely; will order right upper quadrant ultrasound if liver enzymes continue to trend up along with acute hepatitis profile 4. Hyperglycemia without acidosis/diabetes mellitus with long-term insulin use; patient takes Levemir 30 units subcu daily; monitor Accu-Cheks before every meal and at bedtime with insulin sliding scale 5. Persistent diarrhea; presumed C. difficile colitis; patient has not been able to give any stool specimen yet; remains on oral vancomycin 6. Neuropathy/fibromyalgia; patient takes Neurontin 300 mg every morning and 600 mg nightly 7. Hyperlipidemia; Lipitor 40 mg p.o. nightly; will discontinue statins if liver enzymes continue to trend up 8. Attention; propranolol 80 mg daily 9. Anxiety/depression; Remeron 15 mg p.o. nightly, Lexapro 20 mg daily, BuSpar 15 mg twice daily DVT prophylaxis; SCDs CODE STATUS; full code
[2023-11-19 16:35] LABS: Glucose,Whole Blood 68 mg/dL (70-110)
[2023-11-19 17:20] LABS: Glucose,Whole Blood 100 mg/dL (70-110)
[2023-11-19 20:45] LABS: Glucose,Whole Blood 80 mg/dL (70-110)
--- NOTE | 2023-11-19 23:46 | P.CONS ---
History of Present Illness - Reason for Consult Consult date: 11/19/23 Leukocytosis Requesting physician: Padma Trejo - Chief Complaint Abdominal pain and diarrhea x few days - History of Present Illness Patient is a 53-year-old female with a past medical history significant for diabetes mellitus fibromyalgia hypertension reflux pneumonia asthma recently exposed antibiotic in the form of Augmentin for a tooth infection a week into taking the antibiotic the patient did develop significant diarrhea and apparently the patient mention she was checked for C. difficile but it was negative and has been treated with oral vancomycin without improvement patient presented to her [facility] ER about 4 days ago for evaluation of abdominal pain and persistent diarrhea patient is currently the pain to be in the lower abdominal area describing it to be sharp moderate intensity without radiation with associated diarrhea with multiple loose stools denies having any blood or mucus in the stool patient on presentation to the hospital was afebrile and no fever have recorded during this hospital stay patient was not tachycardic or hypotensive mild hypoxemia but currently on room air patient did have a white count of 12.5 on admission creatinine has been normal liver isms mildly elevated urine has been negative stool studies were not checked patient did have a CT abdominal pelvis no significant interval change and no acute finding on the CT abdominal pelvis infectious was consulted today for further management Review of Systems Positive point and negatives has been mentioned in the HPI, complete review of systems was performed and all other systems are negative Past Medical History Past Medical History: Asthma, Cancer, CVA/TIA, Diabetes Mellitus, Fibromyalgia, GERD/Reflux, Hyperlipidemia, Osteoarthritis (OA), Pneumonia Additional Past Medical History / Comment(s): Had Iron infusions in Apr 2019. Hx TIA 2016. Diabetic neuropathy eli feet, migraines, cervical disc disease, DDD, eli tinnitis, arthiritis bilateral shoulders, IBS, HX R arm fx yrs ago, R ovarian cyst, hiatal hernia, UTIs, urinary calculus, pancreatitis x 2, stomach ulcer. Hx cervical cancer. COVID 08/2020 History of Any Multi-Drug Resistant Organisms: C-DIFF Year Discovered:: 2016 MDRO Source:: None Past Surgical History: Appendectomy, Bariatric Surgery, Cholecystectomy, Hysterectomy, Tonsillectomy Additional Past Surgical History / Comment(s): 2010 felix-en-Y, fistula repair 2011, 2011 gastric bypass revision, bowel resection, lap gastrojejunostomy anastamosis revision, EGD and colonoscopy, cone bx-cervical cancer removed with cryo, L fallopian tube removed due to cyst, picc line in and out, CERVICAL FUSION 12/21/16. Past Anesthesia/Blood Transfusion Reactions: Family History of Problems w/ Anesthesia, Motion Sickness, Postoperative Nausea & Vomiting (PONV) Additional Past Anesthesia/Blood Transfusion Reaction / Comm: Pt states she has never recieved blood. FAMILY HX PONV. Past Psychological History: Anxiety, Depression Additional Psychological History / Comment(s): Pt lives with her significant other-common law . Smoking Status: Never smoker Past Alcohol Use History: None Reported Past Drug Use History: None Reported Additional Drug Use History / Comment(s): Pt has a medical marijuana card and tr ied using it for pain control but it makes her nauseated so she does not use marijuana at all. - Past Family History Brother(s) Family Medical History: Deep Vein Thrombosis (DVT) Father Family Medical History: Cancer, Deep Vein Thrombosis (DVT), Pulmonary Embolus Additional Family Medical History / Comment(s): Father had poss colon and lung cancer and at age 73yrs. Mother Family Medical History: Coronary Artery Disease (CAD), Diabetes Mellitus, Deep Vein Thrombosis (DVT), Hypertension, Pulmonary Embolus Additional Family Medical History / Comment(s): Mother is alive and 73 yrs old. Medications and Allergies Home Medications Medication Instructions Recorded Confirmed Type Cetirizine HCl [Zyrtec] 10 mg PO DAILY 06/13/18 11/17/23 History Mirtazapine [Remeron] 15 mg PO HS 10/08/18 11/17/23 History LORazepam [Ativan] 0.5 mg PO Q6H PRN 04/23/19 11/17/23 History Propranolol HCl [Inderal Xl] 80 mg PO HS 04/23/19 11/17/23 History Gabapentin 300 mg PO DAILY 02/28/22 11/17/23 History Rizatriptan Odt [Maxalt [employer]ANT O[employer]IVE] 10 mg PO TID PRN 02/28/22 11/17/23 History metFORMIN HCL ER [Glucophage XR] 2,000 mg PO DAILY 02/28/22 11/17/23 History Furosemide [Lasix] 20 mg PO BID 02/16/23 11/17/23 History Simvastatin [Zocor] 80 mg PO HS 02/28/23 11/17/23 History Escitalopram [Lexapro] 20 mg PO DAILY 03/21/23 11/17/23 History Ibuprofen [Motrin] 600 mg PO Q8HR PRN #30 tab 03/23/23 11/17/23 Rx Gabapentin 600 mg PO HS 11/17/23 11/17/23 History Insulin Glargine,Hum.rec.anlog 30 units SQ DAILY 11/17/23 11/17/23 History [Lantus Solostar Pen] Ondansetron Odt [Zofran ODT] 8 mg PO Q8HR PRN 11/17/23 11/17/23 History Scopolamine 1 mg/72 Hr Patch 1 patch TRANSDERM Q72H PRN 11/17/23 11/17/23 History [TransDerm Scop] Tirzepatide [Mounjaro] 5 mg SQ FR 11/17/23 11/17/23 History busPIRone HCL 15 mg PO BID 11/17/23 11/17/23 History Cholestyramine (with Sugar) 4 gm PO BID@1000,1800 30 Days #60 12/05/23 Rx [Questran Packet] packet Dicyclomine [Bentyl] 20 mg PO QID 30 Days #240 cap 12/05/23 Rx Famotidine [Pepcid] 40 mg PO DAILY 30 Days #60 tab 12/05/23 Rx Loperamide [Imodium] 4 mg PO QID 7 Days #30 cap 12/05/23 Rx Allergies Allergy/AdvReac Type Severity Reaction Status Date / Time oxycodone [From Percocet] Allergy Unknown Swelling; Verified 11/16/23 16:42 (WAS ABLE TO TAKE ALONG WITH BENADRYL) apricot Allergy Dyspnea Verified 11/16/23 16:42 barium sulfate Allergy Anaphylaxis Verified 11/16/23 16:42 [From Readi-Cat] codeine Allergy Anaphylaxis Verified 11/16/23 16:42 fentanyl Allergy Rash/Hives Verified 11/16/23 16:42 hydrocodone [From Lortab] Allergy Swelling Verified 11/16/23 16:42 Iodinated Contrast Media Allergy Anaphylaxis Verified 11/16/23 16:42 iodine Allergy Rash/Hives Verified 11/16/23 16:42 iron Allergy Swelling Verified 11/16/23 16:42 levofloxacin [From Levaquin] Allergy Swelling Verified 11/16/23 16:42 morphine Allergy Rash/Hives, Verified 11/16/23 16:42 Nausea/Vomiting peach Allergy Swelling Verified 11/16/23 16:42 peanut Allergy Swelling Verified 11/16/23 16:42 peanut oil Allergy Anaphylaxis Verified 11/16/23 16:42 shellfish derived [Shellfish] Allergy Anaphylaxis Verified 11/16/23 16:42 strawberry Allergy Anaphylaxis Verified 11/16/23 16:42 sucralfate [From Carafate] Allergy Swelling Verified 11/16/23 16:42 Sulfa (Sulfonamide Allergy Anaphylaxis Verified 11/16/23 16:42 Antibiotics) sulfamethoxazole Allergy Anaphylaxis Verified 11/16/23 16:42 [From Bactrim] tree nut [Nut] Allergy Swelling Verified 11/16/23 16:42 trimethoprim [From Bactrim] Allergy Anaphylaxis Verified 11/16/23 16:42 metronidazole [From Flagyl] AdvReac Unknown Verified 11/16/23 16:42 Physical Exam Vitals: Vital Signs Temp Pulse Pulse Resp BP Pulse Ox 11/19/23 14:00 98.4 F 73 17 113/76 93 L 11/19/23 07:46 98.5 F 92 16 109/71 92 L 11/19/23 02:19 98.6 F 73 17 98/66 90 L 11/18/23 21:15 97.7 F 89 102/68 Intake and Output 11/19/23 11/19/23 11/19/23 06:59 14:59 22:59 Other: # Voids 2 GENERAL DESCRIPTION: Middle-aged female lying in bed, no distress. No tachypnea or accessory muscle of respiration use. HEENT: Shows Pallor , no scleral icterus. Oral mucous membrane is dry. No pharyngeal erythema or thrush NECK: Trachea central, no thyromegaly. LUNGS: Unlabored breathing. Clear to auscultation anteriorly. No wheeze or crackle. HEART: S1, S2, regular rate and rhythm. No loud murmur ABDOMEN: Soft, mild lower abdominal tenderness , no guarding or rigidity, no organomegaly EXTREMITIES: No edema of feet. SKIN: No rash, no masses palpable. NEUROLOGICAL: The patient is awake, alert, oriented x3, mood and affect normal. Results CBC & Chem 7: 12/05/23 04:25 12/05/23 04:25 Labs: Abnormal Lab Results - Last 24 Hours (Table) 11/18/23 11/18/23 11/19/23 Range/Units 16:24 20:33 05:03 WBC 11.0 H (3.8-10.6) k/uL Hgb 11.0 L (11.4-16.0) gm/dL RDW 16.2 H (11.5-15.5) % Chloride (98-107) mmol/L Glucose (74-99) mg/dL POC Glucose (mg/dL) 148 H 172 H (70-110) mg/dL Calcium (8.4-10.2) mg/dL 11/19/23 11/19/23 11/19/23 Range/Units 05:03 05:25 11:04 WBC (3.8-10.6) k/uL Hgb (11.4-16.0) gm/dL RDW (11.5-15.5) % Chloride 111 H (98-107) mmol/L Glucose 120 H (74-99) mg/dL POC Glucose (mg/dL) 118 H 128 H (70-110) mg/dL Calcium 7.8 L (8.4-10.2) mg/dL Assessment and Plan (1) Diarrhea Status: Acute Code(s): R19.7 - DIARRHEA, UNSPECIFIED SNOMED Code(s): 02717738 (2) Leukocytosis Status: Acute Code(s): D72.829 - ELEVATED WHITE BLOOD CELL COUNT, UNSPECIFIED SNOMED Code(s): 480163678 Plan: 1patient presented to hospital with a lower abdominal pain in this patient who did have some tenderness and significant diarrhea patient has been exposed to antibiotic concern for possible C. difficile colitis versus other infectious colitis 2-we will check stool for C. difficile and check stool culture 3-check inflammatory markers 4-add Questran for symptomatic relief We will follow on clinical condition and cultures to further adjust medication if needed Thank you for this consultation we will follow the patient along with you Dictation was produced using [employer] dictation software. please excuse any grammatical, word or spelling errors. Time with Patient: Greater than 30
[2023-11-20 05:23] LABS: Glucose,Whole Blood 112 mg/dL (70-110)
[2023-11-20 05:45] LABS: Anisocytosis Slight; HCT 38.5 % (34.0-46.0); HGB 11.8 gm/dL (11.4-16.0); Hypochromasia Moderate; MCH 24.9 pg (25.0-35.0); MCHC 30.7 g/dL (31.0-37.0); MCV 81.1 fL (80.0-100.0); RBC 4.75 m/uL (3.80-5.40); RDW 16.2 % (11.5-15.5); WBC 11.2 k/uL (3.8-10.6)
[2023-11-20 06:07] LABS: African American GFR (CKD) >90 (>60 ml/min/1.73 sqM); Anion Gap 8 mmol/L; Blood Urea Nitrogen 9 mg/dL (7-17); C Reactive Protein <0.5 mg/dL (<1.0); Calcium 7.8 mg/dL (8.4-10.2); Carbon Dioxide 19 mmol/L (22-30); Chloride 113 mmol/L (98-107); Glucose 116 mg/dL (74-99); Non-African American GFR(CKD) >90 (>60 ml/min/1.73 sqM); Sodium 140 mmol/L (137-145)
[2023-11-20 06:59] LABS: Platelet Count 301 k/uL (150-450)
--- NOTE | 2023-11-20 08:22 | P.GSCN ---
History of Present Illness Consult date: 11/19/23 History of present illness: REASON FOR CONSULTATION: Abdominal pain with diarrhea HISTORY OF PRESENT ILLNESS: Bella Su is a 53-year-old female who presents with over a week history of moderate to severe abdominal cramping including multiple bouts of diarrhea over 5-6 times daily. She reports unintentional weight loss over 10 pounds from 198 pounds to 185 pounds. She was recently seen at the bariatric center for her symptoms including for additional blood work for malnutrition and bariatric labs. She has long-standing history of multiple bariatric procedures including initial gastric bypass, over 20 years ago. She developed complications of gastric bypass including leak and severe intestinal absorption. Last colonoscopy within the past 5 years. Incidentally, patient has been placed on Questran and now reports no further diarrhea but increased abdominal pain. At height of 5 feet 5 inches, her ideal body weight is 149 pounds. Highest weig ht 315 pounds, BMI 52.5. She comes in 185 pounds from 198 pounds, 13 pound weight loss in 2 weeks. Her body mass index is 30.8. She is 36 pounds overweight. PAST MEDICAL HISTORY: 1. Morbid obesity due to excess calories 2. Body mass index of 52.5 to 30.8. 3. Asthma 4. Hyperlipidemia 5. Hypertensive heart disease 6. Osteoarthritis bilateral knees 7. Osteoarthritis bilateral hips 8. Osteoarthritis lower back 9. Pneumonia 10. Chronic iron deficiency anemia 11. Diabetes type 2 insulin-dependent 12. Diabetic neuropathy 13. Pancreatitis 14. History of cervical cancer 15. History of C. diff 16. Fibromyalgia 17. Gastroesophageal reflux disease 18. Transient ischemic attack 19. Depressive disorder 20. Generalized anxiety disorder 21. Congestive heart failure PAST SURGICAL HISTORY: 1. Appendectomy 2. Cholecystectomy 3. Hysterectomy 4. Tonsillectomy 5. Gastric bypass 6. Conversion gastric bypass to sleep gastric 7. Revision gastrojejunostomy 8. Status post bowel resection 9. Left salpingectomy 10. Cervical fusion HOME MEDICATIONS: Reviewed ALLERGIES: Reviewed SOCIAL HISTORY: Denies past tobacco use. FAMILY HISTORY: No family history of ulcerative colitis disease or Crohn's disease. Family history of morbid obesity. No lupus in the family. No reports of stomach or esophageal cancer. Family history colon cancer. REVIEW OF ORGAN SYSTEMS: CONSTITUTIONAL: At height of 5 feet 5 inches, her ideal body weight is 149 pounds. Highest weight 315 pounds, BMI 52.5. She comes in 198 pounds. Her body mass index is 32.9. She is 33 pounds overweight. HEENT: Denies any active troubles with vision or hearing. Has troubles with swallowing. ENDOCRINE: Has diabetes. No hypothyroidism. CARDIOVASCULAR: Past reports of palpitations or heart attacks or chest pain. Has hypertensive heart disease. RESPIRATORY: Has daytime somnolence. Has asthma. Has chronic obstructive pulmonary disease. GASTROINTESTINAL: Denies any bright red blood per rectum. Please see above. GENITOURINARY: Has bladder urgency. No recent blood in urine MUSCULOSKELETAL: Has lower back pain and joint pain. Has osteoarthritis of the knees. NEURO: No headaches. No seizure disorders. Has neuropathy. PSYCH: Has depression. No suicidal ideation. RHEUMATOLOGIC: No lupus. No rheumatoid arthritis. HEMATOLOGIC: Denies any abnormal bleeding or bruising. SKIN: No rash. No skin cancer. PHYSICAL EXAM: VITAL SIGNS: Height 5 foot 5 inches, weight 198 pounds. BMI 32.9 GENERAL: Well-developed in no acute distress. HEENT: No scleral icterus. Extraocular movements grossly intact. Hears conversational speech. No nasal drainage. NECK: Supple without lymphadenopathy. CHEST: Nonlabored respirations with equal bilateral excursions. CARDIOVASCULAR: Regular rate and regular rhythm. Distal 2+ pulses. ABDOMEN: Mild generalized tenderness. No peritonitis. MUSCULOSKELETAL: No clubbing, cyanosis. NEURO: No focal or lateralizing signs. Cranial nerves 2 through 12 grossly within normal limits. PSYCH: Appropriate affect. Alert and oriented to person, place and time. SKIN: Good skin turgor. Well perfused. LABS: Reviewed. Hemoglobin down 11.3, anemia. Magnesium low 1.1, uncorrected. No current stool studies. Potassium low 3.3 on admission IMAGING: CT of the abdomen pelvis independently reviewed from 11/16/2023 demonstrates no signs of bowel obstruction. No free air. Multiple suture lines from anastomosis of conversion gastric bypass to sleeve. No hiatal hernia. This is my independent interpretation. ASSESSMENT: 1. Generalized abdominal pain with chronic diarrhea 2. Hypokalemia 3. Hypomagnesia 4. Hyperlipidemia 5. Hypertensive heart disease 6. Osteoarthritis bilateral knees 7. Osteoarthritis bilateral hips 8. Osteoarthritis lower back 9. Pneumonia 10. Chronic iron deficiency anemia 11. Diabetes type 2 insulin-dependent, uncontrolled 12. Diabetic neuropathy 13. Pancreatitis 14. History of cervical cancer 15. History of C. diff 16. Fibromyalgia 17. Gastroesophageal reflux disease 18. Transient ischemic attack 19. Depressive disorder 20. Generalized anxiety disorder 21. Congestive heart failure 22. Vitamin D deficiency 23. Hypothyroidism 24. Anemia 25. Colon cancer, family 26. Morbid obesity due to excess calories 27. Body mass index of 52.5 to 32.9 28. Asthma PLAN: 1. She has personal history of C. difficile. Recommend stool samples. 2. Recommend aggressive correction of magnesium, 4 g IV ordered. 3. Conservative management in the interim 4. Recommend low fiber diet as tolerated Past Medical History Past Medical History: Asthma, Cancer, CVA/TIA, Diabetes Mellitus, Fibromyalgia, GERD/Reflux, Hyperlipidemia, Osteoarthritis (OA), Pneumonia Additional Past Medical History / Comment(s): Had Iron infusions in Apr 2019. Hx TIA 2016. Diabetic neuropathy eli feet, migraines, cervical disc disease, DDD, lei tinnitis, arthiritis bilateral shoulders, IBS, HX R arm fx yrs ago, R ovarian cyst, hiatal hernia, UTIs, urinary calculus, pancreatitis x 2, stomach ulcer. Hx cervical cancer. COVID 08/2020 History of Any Multi-Drug Resistant Organisms: C-DIFF Year Discovered:: 2016 MDRO Source:: None Past Surgical History: Appendectomy, Bariatric Surgery, Cholecystectomy, Hysterectomy, Tonsillectomy Additional Past Surgical History / Comment(s): 2010 felix-en-Y, fistula repair 2011, 2011 gastric bypass revision, bowel resection, lap gastrojejunostomy anastamosis revision, EGD and colonoscopy, cone bx-cervical cancer removed with cryo, L fallopian tube removed due to cyst, picc line in and out, CERVICAL FUSIO N 12/21/16. Past Anesthesia/Blood Transfusion Reactions: Family History of Problems w/ Anesthesia, Motion Sickness, Postoperative Nausea & Vomiting (PONV) Additional Past Anesthesia/Blood Transfusion Reaction / Comm: Pt states she has never recieved blood. FAMILY HX PONV. Past Psychological History: Anxiety, Depression Additional Psychological History / Comment(s): Pt lives with her significant ot er-common law . Smoking Status: Never smoker Past Alcohol Use History: None Reported Past Drug Use History: None Reported Additional Drug Use History / Comment(s): Pt has a medical marijuana card and tried using it for pain control but it makes her nauseated so she does not use marijuana at all. - Past Family History Brother(s) Family Medical History: Deep Vein Thrombosis (DVT) Father Family Medical History: Cancer, Deep Vein Thrombosis (DVT), Pulmonary Embolus Additional Family Medical History / Comment(s): Father had poss colon and lung cancer and at age 73yrs. Mother Family Medical History: Coronary Artery Disease (CAD), Diabetes Mellitus, Deep Vein Thrombosis (DVT), Hypertension, Pulmonary Embolus Additional Family Medical History / Comment(s): Mother is alive and 73 yrs old. Medications and Allergies Home Medications Medication Instructions Recorded Confirmed Type Cetirizine HCl [Zyrtec] 10 mg PO DAILY 06/13/18 11/17/23 History Mirtazapine [Remeron] 15 mg PO HS 10/08/18 11/17/23 History LORazepam [Ativan] 0.5 mg PO Q6H PRN 04/23/19 11/17/23 History Propranolol HCl [Inderal Xl] 80 mg PO HS 04/23/19 11/17/23 History Gabapentin 300 mg PO DAILY 02/28/22 11/17/23 History Rizatriptan Odt [Maxalt SENIOR [employer]UCLE[employer]IC[employer] TECHNOLOGIST] 10 mg PO TID PRN 02/28/22 11/17/23 History metFORMIN HCL ER [Glucophage XR] 2,000 mg PO DAILY 02/28/22 11/17/23 History Furosemide [Lasix] 20 mg PO BID 02/16/23 11/17/23 History Simvastatin [Zocor] 80 mg PO HS 02/28/23 11/17/23 History Escitalopram [Lexapro] 20 mg PO DAILY 03/21/23 11/17/23 History Ibuprofen [Motrin] 600 mg PO Q8HR PRN #30 tab 03/23/23 11/17/23 Rx Vancomycin HCl [Vancocin HCl] 125 mg PO QID #40 cap 11/07/23 11/17/23 Rx Docusate Sodium [Dok] 100 mg PO DAILY 11/17/23 11/17/23 History Gabapentin 600 mg PO HS 11/17/23 11/17/23 History Insulin Glargine,Hum.rec.anlog 30 units SQ DAILY 11/17/23 11/17/23 History [Lantus Solostar Pen] Ondansetron Odt [Zofran Odt] 8 mg PO Q8HR PRN 11/17/23 11/17/23 History Scopolamine 1 mg/72 Hr Patch 1 patch TRANSDERM Q72H PRN 11/17/23 11/17/23 History [TransDerm Scop] Tirzepatide [Mounjaro] 5 mg SQ FR 11/17/23 11/17/23 History busPIRone HCL 15 mg PO BID 11/17/23 11/17/23 History lisinopriL [Zestril] 2.5 mg PO DAILY 11/17/23 11/17/23 History Allergies Allergy/AdvReac Type Severity Reaction Status Date / Time oxycodone [From Percocet] Allergy Unknown Swelling; Verified 11/16/23 16:42 (WAS ABLE TO TAKE ALONG WITH BENADRYL) apricot Allergy Dyspnea Verified 11/16/23 16:42 barium sulfate Allergy Anaphylaxis Verified 11/16/23 16:42 [From Readi-Cat] codeine Allergy Anaphylaxis Verified 11/16/23 16:42 fentanyl Allergy Rash/Hives Verified 11/16/23 16:42 hydrocodone [From Lortab] Allergy Swelling Verified 11/16/23 16:42 Iodinated Contrast Media Allergy Anaphylaxis Verified 11/16/23 16:42 iodine Allergy Rash/Hives Verified 11/16/23 16:42 iron Allergy Swelling Verified 11/16/23 16:42 levofloxacin [From Levaquin] Allergy Swelling Verified 11/16/23 16:42 morphine Allergy Rash/Hives, Verified 11/16/23 16:42 Nausea/Vomiting peach Allergy Swelling Verified 11/16/23 16:42 peanut Allergy Swelling Verified 11/16/23 16:42 peanut oil Allergy Anaphylaxis Verified 11/16/23 16:42 shellfish derived [Shellfish] Allergy Anaphylaxis Verified 11/16/23 16:42 strawberry Allergy Anaphylaxis Verified 11/16/23 16:42 sucralfate [From Carafate] Allergy Swelling Verified 11/16/23 16:42 Sulfa (Sulfonamide Allergy Anaphylaxis Verified 11/16/23 16:42 Antibiotics) sulfamethoxazole Allergy Anaphylaxis Verified 11/16/23 16:42 [From Bactrim] tree nut [Nut] Allergy Swelling Verified 11/16/23 16:42 trimethoprim [From Bactrim] Allergy Anaphylaxis Verified 11/16/23 16:42 metronidazole [From Flagyl] AdvReac Unknown Verified 11/16/23 16:42 Surgical - Exam Vital Signs Temp Pulse Resp BP Pulse Ox 97.9 F 134 H 18 93/69 97 11/16/23 16:39 11/16/23 16:39 11/16/23 16:39 11/16/23 16:39 11/16/23 16:39 Results - Labs 11/20/23 04:49 11/20/23 04:49 Abnormal Lab Results - Last 24 Hours (Table) 11/19/23 11/19/23 11/20/23 Range/Units 11:04 16:33 04:49 WBC 11.2 H (3.8-10.6) k/uL MCH 24.9 L (25.0-35.0) pg MCHC 30.7 L (31.0-37.0) g/dL RDW 16.2 H (11.5-15.5) % Chloride (98-107) mmol/L Carbon Dioxide (22-30) mmol/L Glucose (74-99) mg/dL POC Glucose (mg/dL) 128 H 68 L (70-110) mg/dL Calcium (8.4-10.2) mg/dL 11/20/23 11/20/23 Range/Units 04:49 05:22 WBC (3.8-10.6) k/uL MCH (25.0-35.0) pg MCHC (31.0-37.0) g/dL RDW (11.5-15.5) % Chloride 113 H (98-107) mmol/L Carbon Dioxide 19 L (22-30) mmol/L Glucose 116 H (74-99) mg/dL POC Glucose (mg/dL) 112 H (70-110) mg/dL Calcium 7.8 L (8.4-10.2) mg/dL Diabetes panel 11/20/23 Range/Units 04:49 Sodium 140 (137-145) mmol/L Potassium 4.0 (3.5-5.1) mmol/L Chloride 113 H (98-107) mmol/L Carbon Dioxide 19 L (22-30) mmol/L BUN 9 (7-17) mg/dL Creatinine 0.52 (0.52-1.04) mg/dL Glucose 116 H (74-99) mg/dL Calcium 7.8 L (8.4-10.2) mg/dL Calcium panel 11/20/23 Range/Units 04:49 Calcium 7.8 L (8.4-10.2) mg/dL Pituitary panel 11/20/23 Range/Units 04:49 Sodium 140 (137-145) mmol/L Potassium 4.0 (3.5-5.1) mmol/L Chloride 113 H (98-107) mmol/L Carbon Dioxide 19 L (22-30) mmol/L BUN 9 (7-17) mg/dL Creatinine 0.52 (0.52-1.04) mg/dL Glucose 116 H (74-99) mg/dL Calcium 7.8 L (8.4-10.2) mg/dL Adrenal panel 11/20/23 Range/Units 04:49 Sodium 140 (137-145) mmol/L Potassium 4.0 (3.5-5.1) mmol/L Chloride 113 H (98-107) mmol/L Carbon Dioxide 19 L (22-30) mmol/L BUN 9 (7-17) mg/dL Creatinine 0.52 (0.52-1.04) mg/dL Glucose 116 H (74-99) mg/dL Calcium 7.8 L (8.4-10.2) mg/dL
[2023-11-20] MEDS: MAGNESIUM SULFATE-D5W PMX 1 GM in DEXTROSE/WATER 1 100ML.BAG IVPB SCH (08:47)
[2023-11-20] MEDS: CHOLESTYRAMINE (WITH SUGAR) 4 GM PACKET PO SCH (08:48)
[2023-11-20 11:12] LABS: Glucose,Whole Blood 127 mg/dL (70-110)
--- NOTE | 2023-11-20 12:05 | P.PN ---
Subjective 53-year-old female, history of diabetes mellitus, asthma, hyperlipidemia, fibromyalgia, presents to the ER for evaluation today. Patient notes today for evaluation regards to significant abdominal wall pain abnormal electrolytes nausea vomiting diarrhea persistent diarrhea with now decreasing any bowel movements at all. Decreased appetite with significant weight loss --Patient was seen in the ED on 11/11/2023 with similar complaints of nausea vomiting diarrhea and abdominal pain that has been going on for past 2 weeks; patient was empirically started on oral vancomycin for C. difficile colitis and was discharged home; symptoms worsened and patient presented back to ED for further evaluation Blood work completed in ED reveals a WBC of 12.5 which is improved from 14.4 on previous admission; hemoglobin of 13.9, platelet 433, sodium 135, potassium 3.0, BUNs/creatinine of 12/0.87, blood glucose of 189, lactic acid level of 1.6 magnesium 1.0, phosphorus 5.5, AST/ALT elevated at 60/48, amylase lipase are negative, UA is positive for large leukocyte esterase, WBCs and bacteria --Patient has been evaluated by general surgery and recommending EGD and colonoscopy -- Given persistent diarrhea patient is recommended to continue with oral v ancomycin -Stool studies have been sent including ova, parasites, stool WBCs and culture and C. difficile toxin 11/19/2023 Patient is awake and alert at baseline She states she has not had diarrhea since last Sunday She has lower abdominal pain about 9/10, She has little nausea this morning but no cory vomiting. Appetite is poor. Patient denies urinary symptoms stating his only. Repeat urine analysis is normal CT of the abdomen and pelvis is negative for acute process. Patient is on oral vancomycin, as per patient this medication was started in the emergency room about 9 days ago for total of 10 days, she is supposed to finish her treatment tomorrow. Patient with no fever, and leukocytosis is only mild 11-12 K Surgery team are considering EGD/colonoscopy Discussed with staff 11/20/2023 Patient awake lying in bed, looks with malaise and generally weak. She is with lower abdominal pain and tenderness that looks better than yesterday She ate little bit this morning She has little loose mushy bowel movement this morning She is afebrile. WBC is 11.2, hemoglobin 11.8, liver enzymes mildly elevated. Repeat urine analysis is normal Occult blood in his stool is negative And she has negative inflammatory markers CRP and procalcitonin She remains on oral vancomycin and IV Protonix. Stool culture and C. difficile test are requested and are pending Objective - Vital Signs Vital signs: Vital Signs Temp 98.5 F 11/20/23 07:20 Pulse 69 11/20/23 07:20 Resp 18 11/20/23 07:20 BP 115/77 11/20/23 07:20 Pulse Ox 96 11/20/23 07:20 FiO2 Intake & Output 11/19/23 11/20/23 11/20/23 18:59 06:59 18:59 Intake Total 200 Balance 200 Intake: Oral 200 Other: # Voids 6 6 # Bowel Movements 1 - Exam GENERAL: The patient is alert and oriented x3, not in any acute distress. Well developed, well nourished. HEENT: Pupils are round and equally reacting to light. EOMI. No scleral icterus. No conjunctival pallor. Normocephalic, atraumatic. No pharyngeal erythema. No thyromegaly. CARDIOVASCULAR: S1 and S2 present. No murmurs, rubs, or gallops. PULMONARY: Chest is clear to auscultation, no wheezing , no crackles. -ABDOMEN: Soft, lower abdominal tenderness, nondistended, normoactive bowel sounds. No palpable organomegaly. MUSCULOSKELETAL: No joint swelling or deformity. EXTREMITIES: No cyanosis, clubbing, or pedal edema. NEUROLOGICAL: Gross neurological examination did not reveal any focal deficits. SKIN: No rashes. no petechiae. - Labs CBC & Chem 7: 11/20/23 04:49 11/20/23 04:49 Labs: Abnormal Lab Results - Last 24 Hours (Table) 11/19/23 11/20/23 11/20/23 Range/Units 16:33 04:49 04:49 WBC 11.2 H (3.8-10.6) k/uL MCH 24.9 L (25.0-35.0) pg MCHC 30.7 L (31.0-37.0) g/dL RDW 16.2 H (11.5-15.5) % Chloride 113 H (98-107) mmol/L Carbon Dioxide 19 L (22-30) mmol/L Glucose 116 H (74-99) mg/dL POC Glucose (mg/dL) 68 L (70-110) mg/dL Calcium 7.8 L (8.4-10.2) mg/dL 11/20/23 11/20/23 Range/Units 05:22 11:11 WBC (3.8-10.6) k/uL MCH (25.0-35.0) pg MCHC (31.0-37.0) g/dL RDW (11.5-15.5) % Chloride (98-107) mmol/L Carbon Dioxide (22-30) mmol/L Glucose (74-99) mg/dL POC Glucose (mg/dL) 112 H 127 H (70-110) mg/dL Calcium (8.4-10.2) mg/dL Assessment and Plan Assessment: 1. Persistent abdominal pain with nausea,and diarrhea (diarrhea has stopped since admission) --Patient had CT of the abdomen completed in ED which does not reveal any acute abnormality in abdomen or pelvis -Blood work completed reveals negative amylase lipase; mild transaminitis -Patient is admitted for further evaluation and surgical consult and evaluation -Surgery team are considering EGD/colonoscopy 2. Electrolyte imbalance; marked hypokalemia and hypomagnesemia; patient is supplemented in ED; will monitor electrolytes closely and supplement as needed 3. Transaminitis; AST/ALT elevated at 44/48 with slight upward trend of AST at 60; will monitor liver enzymes closely; will order right upper quadrant ultrasound if liver enzymes continue to trend up along with acute hepatitis profile 4. Hyperglycemia without acidosis/diabetes mellitus with long-term insulin use; patient takes Levemir 30 units subcu daily; monitor Accu-Cheks before every meal and at bedtime with insulin sliding scale 5. Persistent diarrhea; presumed C. difficile colitis; patient has not been able to give any stool specimen yet; remains on oral vancomycin 6. Neuropathy/fibromyalgia; patient takes Neurontin 300 mg every morning and 600 mg nightly 7. Hyperlipidemia; Lipitor 40 mg p.o. nightly; will discontinue statins if liver enzymes continue to trend up 8. Attention; propranolol 80 mg daily 9. Anxiety/depression; Remeron 15 mg p.o. nightly, Lexapro 20 mg daily, BuSpar 15 mg twice daily DVT prophylaxis; SCDs CODE STATUS; full code
--- NOTE | 2023-11-20 15:23 | P.PN ---
Subjective Progress Note Date: 11/20/23 CHIEF COMPLAINT: Abdominal pain with diarrhea HISTORY OF PRESENT ILLNESS: Patient reports she is still having some lower abdominal pain. Her diarrhea has stopped. Her last bowel movement was orange in color. She is receiving magnesium supplement for low magnesium. Afebrile. WBC is 11.2 Hgb 11.8 platelets 301 sodium is 140 potassium is 4.0 creatinine 0.52 PHYSICAL EXAM: VITAL SIGNS: Reviewed GENERAL: Well-developed in no acute distress. HEENT: No sclera icterus. Extraocular movements grossly intact. Moist buccal mucosa. Head is atraumatic, normocephalic. Hears conversational speech. No nasal drainage. NECK: Supple without lymphadenopathy. CHEST: Non-labored respirations and equal bilateral excursions. CARDIOVASCULAR: Palpable 2+ radial pulses. ABDOMEN: Soft. Nondistended. Diffuse tenderness MUSCULOSKELETAL: No clubbing or cyanosis. NEUROLOGIC: No focal or lateralizing signs. Cranial nerves II through XII grossly intact. PSYCH: Appropriate affect. Alert and oriented to person, place and time. SKIN: Well perfused. Good skin turgor. ASSESSMENT: 1. Generalized abdominal pain with chronic diarrhea 2. Hypokalemia 3. Hypomagnesia 4. Hyperlipidemia 5. Hypertensive heart disease 6. Osteoarthritis bilateral knees 7. Osteoarthritis bilateral hips 8. Osteoarthritis lower back 9. Pneumonia 10. Chronic iron deficiency anemia 11. Diabetes type 2 insulin-dependent, uncontrolled 12. Diabetic neuropathy 13. Pancreatitis 14. History of cervical cancer 15. History of C. diff 16. Fibromyalgia 17. Gastroesophageal reflux disease 18. Transient ischemic attack 19. Depressive disorder 20. Generalized anxiety disorder 21. Congestive heart failure 22. Vitamin D deficiency 23. Hypothyroidism 24. Anemia 25. Colon cancer, family 26. Morbid obesity due to excess calories 27. Body mass index of 52.5 to 32.9 28. Asthma PLAN: -Follow-up on stool cultures. Diarrhea currently resolved. 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 Signing provider agrees with the documented findings, assessment, and plan of care. Objective - Vital Signs Vital signs: Vital Signs Temp 98.4 F 11/20/23 14:00 Pulse 76 11/20/23 14:00 Resp 17 11/20/23 14:00 BP 101/60 11/20/23 14:00 Pulse Ox 96 11/20/23 14:00 FiO2 Intake & Output 11/19/23 11/20/23 11/20/23 18:59 06:59 18:59 Intake Total 200 Balance 200 Intake: Oral 200 Other: # Voids 6 6 # Bowel Movements 1 - Labs CBC & Chem 7: 11/20/23 04:49 11/20/23 04:49 Labs: Abnormal Lab Results - Last 24 Hours (Table) 11/19/23 11/20/23 11/20/23 Range/Units 16:33 04:49 04:49 WBC 11.2 H (3.8-10.6) k/uL MCH 24.9 L (25.0-35.0) pg MCHC 30.7 L (31.0-37.0) g/dL RDW 16.2 H (11.5-15.5) % Chloride 113 H (98-107) mmol/L Carbon Dioxide 19 L (22-30) mmol/L Glucose 116 H (74-99) mg/dL POC Glucose (mg/dL) 68 L (70-110) mg/dL Calcium 7.8 L (8.4-10.2) mg/dL 11/20/23 11/20/23 Range/Units 05:22 11:11 WBC (3.8-10.6) k/uL MCH (25.0-35.0) pg MCHC (31.0-37.0) g/dL RDW (11.5-15.5) % Chloride (98-107) mmol/L Carbon Dioxide (22-30) mmol/L Glucose (74-99) mg/dL POC Glucose (mg/dL) 112 H 127 H (70-110) mg/dL Calcium (8.4-10.2) mg/dL
--- NOTE | 2023-11-20 15:25 | P.PN ---
Subjective Progress Note Date: 11/20/23 Principal diagnosis: Reason for follow-up is diarrhea questionably C. difficile Patient is a 53-year-old female with a past medical history significant for diabetes mellitus fibromyalgia hypertension reflux pneumonia asthma recently exposed antibiotic in the form of Augmentin for a tooth infection a week into taking the antibiotic the patient did develop significant diarrhea, present to the hospital with abdominal pain and diarrhea with CT on admission did not show any acute changes. On today's visit that is 11/20/2023, Patient is afebrile patient is currently on room air and denies having any shortness of breath, the patient denies any chest pain or cough, the patient denies any nausea vomiting still, left lower abdominal pain and diarrhea. Patient white count of 11.2 creatinine 0.52 stool studies are currently pending Objective - Vital Signs Vital signs: Vital Signs Temp 98.4 F 11/20/23 14:00 Pulse 76 11/20/23 14:00 Resp 17 11/20/23 14:00 BP 101/60 11/20/23 14:00 Pulse Ox 96 11/20/23 14:00 FiO2 Intake & Output 11/19/23 11/20/23 11/20/23 18:59 06:59 18:59 Intake Total 200 Balance 200 Intake: Oral 200 Other: # Voids 6 6 # Bowel Movements 1 - Exam GENERAL DESCRIPTION: Middle-aged female lying in bed in no distress RESPIRATORY SYSTEM: Unlabored breathing , decreased breath sounds at bases HEART: S1 S2 regular rate and rhythm , ABDOMEN: Soft , mild lower abdominal tenderness EXTREMITIES: No edema feet - Labs CBC & Chem 7: 11/20/23 04:49 11/20/23 04:49 Labs: Abnormal Lab Results - Last 24 Hours (Table) 11/19/23 11/20/23 11/20/23 Range/Units 16:33 04:49 04:49 WBC 11.2 H (3.8-10.6) k/uL MCH 24.9 L (25.0-35.0) pg MCHC 30.7 L (31.0-37.0) g/dL RDW 16.2 H (11.5-15.5) % Chloride 113 H (98-107) mmol/L Carbon Dioxide 19 L (22-30) mmol/L Glucose 116 H (74-99) mg/dL POC Glucose (mg/dL) 68 L (70-110) mg/dL Calcium 7.8 L (8.4-10.2) mg/dL 11/20/23 11/20/23 Range/Units 05:22 11:11 WBC (3.8-10.6) k/uL MCH (25.0-35.0) pg MCHC (31.0-37.0) g/dL RDW (11.5-15.5) % Chloride (98-107) mmol/L Carbon Dioxide (22-30) mmol/L Glucose (74-99) mg/dL POC Glucose (mg/dL) 112 H 127 H (70-110) mg/dL Calcium (8.4-10.2) mg/dL Assessment and Plan (1) Leukocytosis Current Visit: Yes Status: Acute Code(s): D72.829 - ELEVATED WHITE BLOOD CELL COUNT, UNSPECIFIED SNOMED Code(s): 811445635 (2) Gastroenteritis Current Visit: Yes Status: Acute Code(s): K52.9 - NONINFECTIVE GASTROENTERITIS AND COLITIS, UNSPECIFIED SNOMED Code(s): 38529651 Plan: 1patient presented to hospital with a lower abdominal pain in this patient who did have some tenderness and significant diarrhea patient has been exposed to antibiotic concern for possible C. difficile colitis versus other infectious colitis 2-we are currently waiting for stool for C. difficile and check stool culture as well as inflammatory markers 3-patient to continue with Questran for symptomatic relief Dictation was produced using [employer] dictation software. please excuse any grammatical, word or spelling errors. Time with Patient: Less than 30
[2023-11-20] MEDS: DICYCLOMINE 10 MG CAP PO SCH (16:23)
[2023-11-20] MEDS: HYDROmorphone 0.5 MG/0.5 ML SYRINGE IVP PRN (16:23)
[2023-11-20 17:05] LABS: Glucose,Whole Blood 126 mg/dL (70-110)
[2023-11-20] MEDS: ACETAMINOPHEN TAB 325 MG TAB PO PRN (18:48)
[2023-11-20 20:18] LABS: Glucose,Whole Blood 107 mg/dL (70-110)
[2023-11-21] MEDS: KETOROLAC 15 MG/ML 1 ML VIAL IVP STA (05:12)
[2023-11-21 05:51] LABS: Glucose,Whole Blood 112 mg/dL (70-110)
[2023-11-21] MEDS ORDERED: KETOROLAC 15 MG/ML 1 ML VIAL IVP PRN (06:01)
[2023-11-21 08:40] LABS: Magnesium 1.7 mg/dL (1.5-2.4)
[2023-11-21] MEDS: DICYCLOMINE 10 MG CAP PO STA (08:50)
[2023-11-21 08:52] LABS: BUN/Creat Ratio 10.17 Ratio (12.00-20.00); Blood Urea Nitrogen 6.1 mg/dL (9.0-27.0); Calcium 7.7 mg/dL (8.7-10.3); Carbon Dioxide 25.1 mmol/L (21.6-31.8); Chloride 116 mmol/L (96-109); Glucose 107 mg/dL (70-110); Potassium 3.3 mmol/L (3.5-5.5); Sodium 148 mmol/L (135-145)
[2023-11-21] MEDS ORDERED: Potassium Replacement Protocol 1 EACH MISC MISCELLANE PRN (10:42)
[2023-11-21] MEDS: MAGNESIUM SULFATE-D5W PMX 1 GM in DEXTROSE/WATER 1 100ML.BAG IVPB SCH (11:14)
[2023-11-21 11:34] LABS: Glucose,Whole Blood 75 mg/dL (70-110)
[2023-11-21] MEDS: KETOROLAC 15 MG/ML 1 ML VIAL IVP PRN (11:49)
--- NOTE | 2023-11-21 12:28 | P.PN ---
Subjective 53-year-old female, history of diabetes mellitus, asthma, hyperlipidemia, fibromyalgia, presents to the ER for evaluation today. Patient notes today for evaluation regards to significant abdominal wall pain abnormal electrolytes nausea vomiting diarrhea persistent diarrhea with now decreasing any bowel movements at all. Decreased appetite with significant weight loss --Patient was seen in the ED on 11/11/2023 with similar complaints of nausea vomiting diarrhea and abdominal pain that has been going on for past 2 weeks; patient was empirically started on oral vancomycin for C. difficile colitis and was discharged home; symptoms worsened and patient presented back to ED for further evaluation Blood work completed in ED reveals a WBC of 12.5 which is improved from 14.4 on previous admission; hemoglobin of 13.9, platelet 433, sodium 135, potassium 3.0, BUNs/creatinine of 12/0.87, blood glucose of 189, lactic acid level of 1.6 magnesium 1.0, phosphorus 5.5, AST/ALT elevated at 60/48, amylase lipase are negative, UA is positive for large leukocyte esterase, WBCs and bacteria --Patient has been evaluated by general surgery and recommending EGD and colonoscopy -- Given persistent diarrhea patient is recommended to continue with oral v ancomycin -Stool studies have been sent including ova, parasites, stool WBCs and culture and C. difficile toxin 11/19/2023 Patient is awake and alert at baseline She states she has not had diarrhea since last Sunday She has lower abdominal pain about 9/10, She has little nausea this morning but no cory vomiting. Appetite is poor. Patient denies urinary symptoms stating his only. Repeat urine analysis is normal CT of the abdomen and pelvis is negative for acute process. Patient is on oral vancomycin, as per patient this medication was started in the emergency room about 9 days ago for total of 10 days, she is supposed to finish her treatment tomorrow. Patient with no fever, and leukocytosis is only mild 11-12 K Surgery team are considering EGD/colonoscopy Discussed with staff 11/20/2023 Patient awake lying in bed, looks with malaise and generally weak. She is with lower abdominal pain and tenderness that looks better than yesterday She ate little bit this morning She has little loose mushy bowel movement this morning She is afebrile. WBC is 11.2, hemoglobin 11.8, liver enzymes mildly elevated. Repeat urine analysis is normal Occult blood in his stool is negative And she has negative inflammatory markers CRP and procalcitonin She remains on oral vancomycin and IV Protonix. Stool culture and C. difficile test are requested and are pending 11/21/2023 Patient awake, lying in bed does not look in distress. Other patient has been asking for more pain medication for her lower abdominal pain she was calm when I saw her and on examination it looks like her lower abdomen is less tender. Diarrhea was stopped yesterday this morning patient states she has another loose bowel movement Patient with no chest pain or dyspnea Patient currently continues with oral vancomycin C. difficile is negative but stool studies still pending She remains on Protonix IV twice a day Patient states that Toradol 15 mg is not helping but she agrees to increase it to 30 mg as needed. Patient also states she has taken [place] before although it was listed in her allergy, MAR was checked again. Discussed with the staff and bedside nurse Barbara we are going to order Oneida with close monitoring. Occult blood in the stool came back negative as well Objective - Vital Signs Vital signs: Vital Signs Temp 97.8 F 11/21/23 06:50 Pulse 62 11/21/23 06:50 Resp 16 11/21/23 06:50 BP 124/84 11/21/23 06:50 Pulse Ox 97 11/21/23 06:50 FiO2 Intake & Output 11/20/23 11/21/23 11/21/23 18:59 06:59 18:59 Intake Total 200 Balance 200 Intake: Oral 200 Other: Voiding Method Toilet # Voids 2 4 # Bowel Movements 1 - Exam GENERAL: The patient is alert and oriented x3, not in any acute distress. Well developed, well nourished. HEENT: Pupils are round and equally reacting to light. EOMI. No scleral icterus. No conjunctival pallor. Normocephalic, atraumatic. No pharyngeal erythema. No thyromegaly. CARDIOVASCULAR: S1 and S2 present. No murmurs, rubs, or gallops. PULMONARY: Chest is clear to auscultation, no wheezing , no crackles. -ABDOMEN: Soft, lower abdominal tenderness, nondistended, normoactive bowel sounds. No palpable organomegaly. MUSCULOSKELETAL: No joint swelling or deformity. EXTREMITIES: No cyanosis, clubbing, or pedal edema. NEUROLOGICAL: Gross neurological examination did not reveal any focal deficits. SKIN: No rashes. no petechiae. - Labs CBC & Chem 7: 11/20/23 04:49 11/21/23 04:33 Labs: Abnormal Lab Results - Last 24 Hours (Table) 11/20/23 11/21/23 11/21/23 Range/Units 17:04 04:33 05:49 Sodium 148 H (135-145) mmol/L Potassium 3.3 L (3.5-5.5) mmol/L Chloride 116 H (96-109) mmol/L BUN 6.1 L (9.0-27.0) mg/dL BUN/Creatinine Ratio 10.17 L (12.00-20.00) Ratio POC Glucose (mg/dL) 126 H 112 H (70-110) mg/dL Calcium 7.7 L (8.7-10.3) mg/dL Assessment and Plan Assessment: 1. Persistent abdominal pain with nausea,and diarrhea (diarrhea has stopped since admission) --Patient had CT of the abdomen completed in ED which does not reveal any acute abnormality in abdomen or pelvis -Blood work completed reveals negative amylase lipase; mild transaminitis -Patient is admitted for further evaluation and surgical consult and evaluation -Surgery team are following the case closely -Continue with pain management, risk and benefits including of narcotics are explained for the patient 2. Electrolyte imbalance; marked hypokalemia and hypomagnesemia; patient is supplemented in ED; will monitor electrolytes closely and supplement as needed 3. Transaminitis; AST/ALT elevated at 44/48 with slight upward trend of AST at 60; will monitor liver enzymes closely; will order right upper quadrant ultrasound if liver enzymes continue to trend up along with acute hepatitis profile 4. Hyperglycemia without acidosis/diabetes mellitus with long-term insulin use; patient takes Levemir 30 units subcu daily; monitor Accu-Cheks before every meal and at bedtime with insulin sliding scale 5. Persistent diarrhea; presumed C. difficile colitis; patient has not been able to give any stool specimen yet; remains on oral vancomycin 6. Neuropathy/fibromyalgia; patient takes Neurontin 300 mg every morning and 600 mg nightly 7. Hyperlipidemia; Lipitor 40 mg p.o. nightly; will discontinue statins if liver enzymes continue to trend up 8. Attention; propranolol 80 mg daily 9. Anxiety/depression; Remeron 15 mg p.o. nightly, Lexapro 20 mg daily, BuSpar 15 mg twice daily DVT prophylaxis; SCDs CODE STATUS; full code
[2023-11-21] MEDS: HYDROcodone/APAP 5-325MG 1 EACH TAB PO PRN (13:40)
--- NOTE | 2023-11-21 15:04 | P.PN ---
Subjective Progress Note Date: 11/21/23 CHIEF COMPLAINT: Abdominal pain with diarrhea HISTORY OF PRESENT ILLNESS: Patient reports her pain is about the same. Its across the lower abdomen and radiates to the back. She is having diarrhea again. She also reports muscle aches. Denies any nausea or vomiting. Afebrile. Patient's [id number] and are both sick with diarrhea and fevers. Sodium 140 potassium 3.3 magnesium 1.7 PHYSICAL EXAM: VITAL SIGNS: Reviewed GENERAL: Well-developed in no acute distress. HEENT: No sclera icterus. Extraocular movements grossly intact. Moist buccal mucosa. Head is atraumatic, normocephalic. Hears conversational speech. No nasal drainage. NECK: Supple without lymphadenopathy. CHEST: Non-labored respirations and equal bilateral excursions. CARDIOVASCULAR: Palpable 2+ radial pulses. ABDOMEN: Soft. Nondistended. Diffuse tenderness MUSCULOSKELETAL: No clubbing or cyanosis. NEUROLOGIC: No focal or lateralizing signs. Cranial nerves II through XII grossly intact. PSYCH: Appropriate affect. Alert and oriented to person, place and time. SKIN: Well perfused. Good skin turgor. ASSESSMENT: 1. Generalized abdominal pain with diarrhea likely secondary to a viral gastroenteritis 2. Hypokalemia 3. Hypomagnesia 4. Hyperlipidemia 5. Hypertensive heart disease 6. Osteoarthritis bilateral knees 7. Osteoarthritis bilateral hips 8. Osteoarthritis lower back 9. Pneumonia 10. Chronic iron deficiency anemia 11. Diabetes type 2 insulin-dependent, uncontrolled 12. Diabetic neuropathy 13. Pancreatitis 14. History of cervical cancer 15. History of C. diff 16. Fibromyalgia 17. Gastroesophageal reflux disease 18. Transient ischemic attack 19. Depressive disorder 20. Generalized anxiety disorder 21. Congestive heart failure 22. Vitamin D deficiency 23. Hypothyroidism 24. Anemia 25. Colon cancer, family 26. Morbid obesity due to excess calories 27. Body mass index of 52.5 to 32.9 28. Asthma 29. Ileus likely due to electrolyte abnormalities and acute viral illness PLAN: -Continue supportive care -Patient followed by infectious disease -Continue low fiber diet -Continue to replace magnesium and potassium -Repeat labs in a.m. 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 Signing provider agrees with the documented findings, assessment, and plan of care. Objective - Vital Signs Vital signs: Vital Signs Temp 97.8 F 11/21/23 06:50 Pulse 62 11/21/23 06:50 Resp 16 11/21/23 06:50 BP 124/84 11/21/23 06:50 Pulse Ox 97 11/21/23 06:50 FiO2 Intake & Output 11/20/23 11/21/23 11/21/23 18:59 06:59 18:59 Intake Total 200 Balance 200 Intake: Oral 200 Other: Voiding Method Toilet # Voids 2 4 # Bowel Movements 1 - Labs CBC & Chem 7: 11/20/23 04:49 11/21/23 04:33 Labs: Abnormal Lab Results - Last 24 Hours (Table) 11/20/23 11/21/23 11/21/23 Range/Units 17:04 04:33 05:49 Sodium 148 H (135-145) mmol/L Potassium 3.3 L (3.5-5.5) mmol/L Chloride 116 H (96-109) mmol/L BUN 6.1 L (9.0-27.0) mg/dL BUN/Creatinine Ratio 10.17 L (12.00-20.00) Ratio POC Glucose (mg/dL) 126 H 112 H (70-110) mg/dL Calcium 7.7 L (8.7-10.3) mg/dL
[2023-11-21] MEDS: POTASSIUM CHLORIDE ER 20 MEQ TAB.ER PO STA (15:31)
--- NOTE | 2023-11-21 16:48 | P.PN ---
Subjective Progress Note Date: 11/21/23 Principal diagnosis: Reason for follow-up is diarrhea questionably C. difficile Patient is a 53-year-old female with a past medical history significant for diabetes mellitus fibromyalgia hypertension reflux pneumonia asthma recently exposed antibiotic in the form of Augmentin for a tooth infection a week into taking the antibiotic the patient did develop significant diarrhea, present to the hospital with abdominal pain and diarrhea with CT on admission did not show any acute changes. On today's visit that is 11/21/2023, patient has been afebrile, patient is breat maykel comfortably and is currently on room air, patient denies having any significant cough no chest pain shortness of breath, patient denies nausea vomiting however still complaining of lower abdominal pain and did have persistent diarrhea. No CBC was done today white count is 11.2 as of yesterday creatinine 0.6 stool for C. difficile is negative stool cultures pending Objective - Vital Signs Vital signs: Vital Signs Temp 97.8 F 11/21/23 06:50 Pulse 62 11/21/23 06:50 Resp 16 11/21/23 06:50 BP 124/84 11/21/23 06:50 Pulse Ox 97 11/21/23 06:50 FiO2 Intake & Output 11/20/23 11/21/23 11/21/23 18:59 06:59 18:59 Intake Total 200 Balance 200 Intake: Oral 200 Other: Voiding Method Toilet # Voids 2 4 # Bowel Movements 1 - Exam GENERAL DESCRIPTION: Middle-aged female lying in bed in no distress RESPIRATORY SYSTEM: Unlabored breathing , decreased breath sounds at bases HEART: S1 S2 regular rate and rhythm , ABDOMEN: Soft , mild lower abdominal tenderness EXTREMITIES: No edema feet - Labs CBC & Chem 7: 11/20/23 04:49 11/21/23 04:33 Labs: Abnormal Lab Results - Last 24 Hours (Table) 11/20/23 11/21/23 11/21/23 Range/Units 17:04 04:33 05:49 Sodium 148 H (135-145) mmol/L Potassium 3.3 L (3.5-5.5) mmol/L Chloride 116 H (96-109) mmol/L BUN 6.1 L (9.0-27.0) mg/dL BUN/Creatinine Ratio 10.17 L (12.00-20.00) Ratio POC Glucose (mg/dL) 126 H 112 H (70-110) mg/dL Calcium 7.7 L (8.7-10.3) mg/dL Assessment and Plan (1) Leukocytosis Current Visit: Yes Status: Acute Code(s): D72.829 - ELEVATED WHITE BLOOD CELL COUNT, UNSPECIFIED SNOMED Code(s): 597230080 (2) Gastroenteritis Current Visit: Yes Status: Acute Code(s): K52.9 - NONINFECTIVE GASTROENTERITIS AND COLITIS, UNSPECIFIED SNOMED Code(s): 42449418 Plan: 1patient presented to hospital with a lower abdominal pain in this patient who did have some tenderness and significant diarrhea patient has been exposed to antibiotic concern for possible C. difficile colitis versus other infectious colitis 2-stool for C. difficile is negative, Stool culture currently pending, keeping in mind no response to the oral vancomycin we will discontinue it start the patient on Rocephin and Flagyl and see clinical response to it Dictation was produced using [employer] dictation software. please excuse any grammatical, word or spelling errors. Time with Patient: Less than 30
[2023-11-21 17:19] LABS: Glucose,Whole Blood 166 mg/dL (70-110)
[2023-11-21] MEDS: metroNIDAZOLE 500 MG TAB PO SCH (17:31)
[2023-11-21] MEDS: POTASSIUM CHLORIDE ER 20 MEQ TAB.ER PO SCH (21:14)
[2023-11-21 21:46] LABS: Glucose,Whole Blood 85 mg/dL (70-110)
[2023-11-22 06:06] LABS: Glucose,Whole Blood 93 mg/dL (70-110)
[2023-11-22 09:19] LABS: African American GFR (CKD) >90 (>60 ml/min/1.73 sqM); Anion Gap 1 mmol/L; Blood Urea Nitrogen 4 mg/dL (7-17); Calcium 7.7 mg/dL (8.4-10.2); Carbon Dioxide 26 mmol/L (22-30); Chloride 115 mmol/L (98-107); Glucose 137 mg/dL (74-99); Magnesium 1.6 mg/dL (1.6-2.3); Non-African American GFR(CKD) >90 (>60 ml/min/1.73 sqM); Potassium 3.5 mmol/L (3.5-5.1); Sodium 142 mmol/L (137-145)
[2023-11-22 09:40] LABS: Anisocytosis Slight; Basophils % (A) 1 %; Eosinophils # (A) 0.2 k/uL (0-0.7); Eosinophils % (A) 4 %; HCT 32.4 % (34.0-46.0); HGB 10.1 gm/dL (11.4-16.0); Hypochromasia Slight; Lymphocytes # (A) 2.8 k/uL (1.0-4.8); Lymphocytes % (A) 43 %; MCV 80.6 fL (80.0-100.0); Mean Platelet Volume 7.8; Monocytes # (A) 0.4 k/uL (0-1.0); Monocytes % (A) 6 %; Neutrophils # (A) 2.9 k/uL (1.3-7.7); Neutrophils % (A) 45 %; Platelet Count 254 k/uL (150-450); RBC 4.02 m/uL (3.80-5.40); RDW 16.6 % (11.5-15.5); WBC 6.5 k/uL (3.8-10.6)
--- NOTE | 2023-11-22 10:21 | P.PN ---
Subjective 53-year-old female, history of diabetes mellitus, asthma, hyperlipidemia, fibromyalgia, presents to the ER for evaluation today. Patient notes today for evaluation regards to significant abdominal wall pain abnormal electrolytes nausea vomiting diarrhea persistent diarrhea with now decreasing any bowel movements at all. Decreased appetite with significant weight loss --Patient was seen in the ED on 11/11/2023 with similar complaints of nausea vomiting diarrhea and abdominal pain that has been going on for past 2 weeks; patient was empirically started on oral vancomycin for C. difficile colitis and was discharged home; symptoms worsened and patient presented back to ED for further evaluation Blood work completed in ED reveals a WBC of 12.5 which is improved from 14.4 on previous admission; hemoglobin of 13.9, platelet 433, sodium 135, potassium 3.0, BUNs/creatinine of 12/0.87, blood glucose of 189, lactic acid level of 1.6 magnesium 1.0, phosphorus 5.5, AST/ALT elevated at 60/48, amylase lipase are negative, UA is positive for large leukocyte esterase, WBCs and bacteria --Patient has been evaluated by general surgery and recommending EGD and colonoscopy -- Given persistent diarrhea patient is recommended to continue with oral v ancomycin -Stool studies have been sent including ova, parasites, stool WBCs and culture and C. difficile toxin 11/19/2023 Patient is awake and alert at baseline She states she has not had diarrhea since last Sunday She has lower abdominal pain about 9/10, She has little nausea this morning but no cory vomiting. Appetite is poor. Patient denies urinary symptoms stating his only. Repeat urine analysis is normal CT of the abdomen and pelvis is negative for acute process. Patient is on oral vancomycin, as per patient this medication was started in the emergency room about 9 days ago for total of 10 days, she is supposed to finish her treatment tomorrow. Patient with no fever, and leukocytosis is only mild 11-12 K Surgery team are considering EGD/colonoscopy Discussed with staff 11/20/2023 Patient awake lying in bed, looks with malaise and generally weak. She is with lower abdominal pain and tenderness that looks better than yesterday She ate little bit this morning She has little loose mushy bowel movement this morning She is afebrile. WBC is 11.2, hemoglobin 11.8, liver enzymes mildly elevated. Repeat urine analysis is normal Occult blood in his stool is negative And she has negative inflammatory markers CRP and procalcitonin She remains on oral vancomycin and IV Protonix. Stool culture and C. difficile test are requested and are pending 11/21/2023 Patient awake, lying in bed does not look in distress. Other patient has been asking for more pain medication for her lower abdominal pain she was calm when I saw her and on examination it looks like her lower abdomen is less tender. Diarrhea was stopped yesterday this morning patient states she has another loose bowel movement Patient with no chest pain or dyspnea Patient currently continues with oral vancomycin C. difficile is negative but stool studies still pending She remains on Protonix IV twice a day Patient states that Toradol 15 mg is not helping but she agrees to increase it to 30 mg as needed. Patient also states she has taken Casper before although it was listed in her allergy, MAR was checked again. Discussed with the staff and bedside nurse Barbara we are going to order Casper with close monitoring. Occult blood in the stool came back negative as well 11/22/2023 Patient is seen and examined at bedside She is sleepy this morning wake up readily with verbal stimuli, she has has some questions appropriately. She go back to sleep and looks lethargic As per staff patient requested her Ambien and benzodiazepine together Diarrhea is improving, patient states she has little bowel movement, lower abdominal tenderness is also improving after adding Flagyl to her medication M APS was checked and patient on lorazepam 0.5 mg given 8 days only about 3 to 4 pills/day also she is on gabapentin 300 mg (90 pills over 3 days ) and she was given one-time dose of Valium as per last month 10/2023 Because of this I am going to discontinue her Casper, okay to discontinue her Ambien and put her on melatonin as needed Continue to monitor pain medication of Toradol, gabapentin. Also Ativan as ne eded for anxiety answer all medication Discussed with staff BMP is unremarkable, creatinine 0.5, leukocytosis significantly improved today and back to baseline of 6.5. Liver enzymes are still pending Possible discharge in 24 to 48 hours if she keeps improving Objective - Vital Signs Vital signs: Vital Signs Temp 98.4 F 11/22/23 07:39 Pulse 57 L 11/22/23 07:39 Resp 16 11/22/23 07:39 BP 124/76 11/22/23 07:39 Pulse Ox 96 11/22/23 07:39 FiO2 Intake & Output 11/21/23 11/22/23 11/22/23 18:59 06:59 18:59 Other: Voiding Method Toilet # Voids 2 5 - Exam GENERAL: The patient is alert and oriented x3, not in any acute distress. Well developed, well nourished. HEENT: Pupils are round and equally reacting to light. EOMI. No scleral icterus. No conjunctival pallor. Normocephalic, atraumatic. No pharyngeal erythema. No thyromegaly. CARDIOVASCULAR: S1 and S2 present. No murmurs, rubs, or gallops. PULMONARY: Chest is clear to auscultation, no wheezing , no crackles. -ABDOMEN: Soft, lower abdominal tenderness, nondistended, normoactive bowel sounds. No palpable organomegaly. MUSCULOSKELETAL: No joint swelling or deformity. EXTREMITIES: No cyanosis, clubbing, or pedal edema. NEUROLOGICAL: Gross neurological examination did not reveal any focal deficits. SKIN: No rashes. no petechiae. - Labs CBC & Chem 7: 11/22/23 08:40 11/22/23 08:40 Labs: Abnormal Lab Results - Last 24 Hours (Table) 11/21/23 11/21/23 11/22/23 Range/Units 17:08 18:06 08:40 Hgb 10.1 L (11.4-16.0) gm/dL Hct 32.4 L (34.0-46.0) % RDW 16.6 H (11.5-15.5) % Potassium 3.3 L (3.5-5.1) mmol/L Chloride (98-107) mmol/L BUN (7-17) mg/dL Glucose (74-99) mg/dL POC Glucose (mg/dL) 166 H (70-110) mg/dL Calcium (8.4-10.2) mg/dL 11/22/23 Range/Units 08:40 Hgb (11.4-16.0) gm/dL Hct (34.0-46.0) % RDW (11.5-15.5) % Potassium (3.5-5.1) mmol/L Chloride 115 H (98-107) mmol/L BUN 4 L (7-17) mg/dL Glucose 137 H (74-99) mg/dL POC Glucose (mg/dL) (70-110) mg/dL Calcium 7.7 L (8.4-10.2) mg/dL Microbiology - Last 24 Hours (Table) 11/20/23 00:17 Stool Culture - Preliminary Stool Assessment and Plan Assessment: 1. Persistent abdominal pain with nausea,and diarrhea (diarrhea has stopped since admission) --Patient had CT of the abdomen completed in ED which does not reveal any acute abnormality in abdomen or pelvis -Blood work completed reveals negative amylase lipase; mild transaminitis -Patient is admitted for further evaluation and surgical consult and evaluation -Surgery team are following the case closely -Continue with pain management, risk and benefits including of narcotics are explained for the patient -Continue with Flagyl and ceftriaxone. Leukocytosis improved -Pain management with right avoid opioids or narcotics. Continue with Toradol, and other pain medication 2. Electrolyte imbalance; marked hypokalemia and hypomagnesemia; patient is supplemented in ED; will monitor electrolytes closely and supplement as needed 3. Transaminitis; AST/ALT elevated at 44/48 with slight upward trend of AST at 60; will monitor liver enzymes closely; 4. Hyperglycemia without acidosis/diabetes mellitus with long-term insulin use; patient takes Levemir 30 units subcu daily; monitor Accu-Cheks before every meal and at bedtime with insulin sliding scale 5. Persistent diarrhea; presumed C. difficile colitis; patient has not been able to give any stool specimen yet; oral vancomycin discontinued 6. Neuropathy/fibromyalgia; patient takes Neurontin 300 mg every morning and 600 mg nightly 7. Hyperlipidemia; Lipitor 40 mg p.o. nightly; will discontinue statins if liver enzymes continue to trend up 8. Attention; propranolol 80 mg daily 9. Anxiety/depression; Remeron 15 mg p.o. nightly, Lexapro 20 mg daily, BuSpar 15 mg twice daily DVT prophylaxis; SCDs CODE STATUS; full code
[2023-11-22] MEDS: MAGNESIUM SULFATE-D5W PMX 1 GM in DEXTROSE/WATER 1 100ML.BAG IVPB ONE (10:47)
[2023-11-22] MEDS: POTASSIUM CHLORIDE ER 20 MEQ TAB.ER PO STA (10:48)
[2023-11-22 12:06] LABS: Glucose,Whole Blood 63 mg/dL (70-110)
[2023-11-22 13:41] VITALS: BMI 28.1
--- NOTE | 2023-11-22 14:05 | P.PN ---
Subjective Progress Note Date: 11/22/23 CHIEF COMPLAINT: Abdominal pain with diarrhea HISTORY OF PRESENT ILLNESS: Patient with no new complaints. She is still having diarrhea and the lower abdominal pain. Afebrile. WBC has normalized from 11.2- 6.5 Hgb 10.1 sodium is 142 potassium is 3.5 creatinine 0.57 magnesium 1.6. Preliminary stool culture results are negative. PHYSICAL EXAM: VITAL SIGNS: Reviewed GENERAL: Well-developed in no acute distress. HEENT: No sclera icterus. Extraocular movements grossly intact. Moist buccal mucosa. Head is atraumatic, normocephalic. Hears conversational speech. No nasal drainage. NECK: Supple without lymphadenopathy. CHEST: Non-labored respirations and equal bilateral excursions. CARDIOVASCULAR: Palpable 2+ radial pulses. ABDOMEN: Soft. Nondistended. Diffuse tenderness MUSCULOSKELETAL: No clubbing or cyanosis. NEUROLOGIC: No focal or lateralizing signs. Cranial nerves II through XII grossly intact. PSYCH: Appropriate affect. Alert and oriented to person, place and time. SKIN: Well perfused. Good skin turgor. ASSESSMENT: 1. Generalized abdominal pain with diarrhea likely secondary to a viral gastroenteritis 2. Hypokalemia 3. Hypomagnesia 4. Hyperlipidemia 5. Hypertensive heart disease 6. Osteoarthritis bilateral knees 7. Osteoarthritis bilateral hips 8. Osteoarthritis lower back 9. Pneumonia 10. Chronic iron deficiency anemia 11. Diabetes type 2 insulin-dependent, uncontrolled 12. Diabetic neuropathy 13. Pancreatitis 14. History of cervical cancer 15. History of C. diff 16. Fibromyalgia 17. Gastroesophageal reflux disease 18. Transient ischemic attack 19. Depressive disorder 20. Generalized anxiety disorder 21. Congestive heart failure 22. Vitamin D deficiency 23. Hypothyroidism 24. Anemia 25. Colon cancer, family 26. Morbid obesity due to excess calories 27. Body mass index of 52.5 to 32.9 28. Asthma 29. Ileus likely due to electrolyte abnormalities and acute viral illness PLAN: -Continue supportive care -Medicine service replace magnesium and potassium -Repeat labs in a.m. -Continue to correct electrolytes as needed -Check phosphorus level -Continue low fiber diet -Continue Bentyl -No surgical intervention planned Physician Design Drafter Chief note has been reviewed by physician. Signing provider agrees with the documented findings, assessment, and plan of care. Please see additional documentation below CHIEF COMPLAINT: HISTORY OF PRESENT ILLNESS: The patient is a 53-year-old female presents with tractable nausea vomiting diarrhea abdominal pain. She presented with leukocytosis which is now responded to antibiotics. Infection disease following due to her multiple drug allergies including antibiotic allergies. She is resting comfortably in bed. Family is at bedside. Symptoms seem to be improving. C. difficile has been negative. ROS: No fevers or chills. No new chest pain. PHYSICAL EXAM: VITAL SIGNS: Reviewed CONSTITUTIONAL: Well developed and in no acute distress. EYES: Conjuctivae without sclera icterus. Extraocular movements grossly intact. HEAD, EARS, NOSE, THROAT: Moist buccal mucosa. Head is atraumatic, normocephalic. Hears conversational speech. No nasal drainage. RESPIRATORY: Non-labored respirations and equal bilateral excursions. CARDIOVASCULAR: Palpable 2+ radial pulses. ABDOMEN: No gross peritonitis. MUSCULOSKELETAL: No gross deformity of the lower extremities noted. No clubbing. No cyanosis. SKIN: Good skin turgor. Well perfused. NEUROLOGIC: Cranial nerves II through XII grossly intact. No focal or lateralizing signs. PSYCH: Appropriate affect. Alert and oriented to person, place and time. CLINICAL LABS: Reviewed. WBC resolved, normal ASSESSMENT: 1. Intractable abdominal pain, generalized 2. Intractable nausea and vomiting 3. Intractable diarrhea 4. Hypokalemia, recalcitrant 5. Hypomagnesia 6. Ileus due to gastroenteritis PLAN: 1. Recommend aggressive correction of potassium 4.0, magnesium 2.0, phosphate 3.0 for ileus 2. Low fiber diet 3. Stable for discharge from a surgical standpoint when medically stable 4. Recommend Bentyl upon discharge for abdominal wall spasms Objective - Vital Signs Vital signs: Vital Signs Temp 98.4 F 11/22/23 07:39 Pulse 57 L 11/22/23 07:39 Resp 16 11/22/23 07:39 BP 124/76 11/22/23 07:39 Pulse Ox 96 11/22/23 07:39 FiO2 Intake & Output 11/21/23 11/22/23 11/22/23 18:59 06:59 18:59 Weight 83.915 kg Other: Voiding Method Toilet # Voids 2 5 - Labs CBC & Chem 7: 11/22/23 08:40 11/22/23 08:40 Labs: Abnormal Lab Results - Last 24 Hours (Table) 11/21/23 11/21/23 11/22/23 Range/Units 17:08 18:06 08:40 Hgb 10.1 L (11.4-16.0) gm/dL Hct 32.4 L (34.0-46.0) % RDW 16.6 H (11.5-15.5) % Potassium 3.3 L (3.5-5.1) mmol/L Chloride (98-107) mmol/L BUN (7-17) mg/dL Glucose (74-99) mg/dL POC Glucose (mg/dL) 166 H (70-110) mg/dL Calcium (8.4-10.2) mg/dL 11/22/23 11/22/23 Range/Units 08:40 12:05 Hgb (11.4-16.0) gm/dL Hct (34.0-46.0) % RDW (11.5-15.5) % Potassium (3.5-5.1) mmol/L Chloride 115 H (98-107) mmol/L BUN 4 L (7-17) mg/dL Glucose 137 H (74-99) mg/dL POC Glucose (mg/dL) 63 L (70-110) mg/dL Calcium 7.7 L (8.4-10.2) mg/dL Microbiology - Last 24 Hours (Table) 11/20/23 00:17 Stool Culture - Preliminary Stool
--- NOTE | 2023-11-22 15:30 | P.PN ---
Subjective Progress Note Date: 11/22/23 Principal diagnosis: Reason for follow-up is diarrhea questionably C. difficile Patient is a 53-year-old female with a past medical history significant for diabetes mellitus fibromyalgia hypertension reflux pneumonia asthma recently exposed antibiotic in the form of Augmentin for a tooth infection a week into taking the antibiotic the patient did develop significant diarrhea, present to the hospital with abdominal pain and diarrhea with CT on admission did not show any acute changes. On today's visit that is 11/22/2023,the patient denies any fever or any chills, patient is breathing comfortably on room air, the patient denies chest pain shortness of breath and no significant cough, patient did mention improvement in her abdominal pain as well as diarrhea since yesterday feeling better today. Patient white count is 6.5, creatinine 0.57 stool cultures pending Objective - Vital Signs Vital signs: Vital Signs Temp 98.2 F 11/22/23 14:00 Pulse 77 11/22/23 14:00 Resp 16 11/22/23 14:00 BP 114/73 11/22/23 14:00 Pulse Ox 97 11/22/23 14:00 FiO2 Intake & Output 11/21/23 11/22/23 11/22/23 18:59 06:59 18:59 Weight 83.915 kg Other: Voiding Method Toilet # Voids 2 5 - Exam GENERAL DESCRIPTION: Middle-aged female lying in bed in no distress RESPIRATORY SYSTEM: Unlabored breathing , decreased breath sounds at bases HEART: S1 S2 regular rate and rhythm , ABDOMEN: Soft , mild lower abdominal tenderness EXTREMITIES: No edema feet - Labs CBC & Chem 7: 11/22/23 08:40 11/22/23 08:40 Labs: Abnormal Lab Results - Last 24 Hours (Table) 11/21/23 11/21/23 11/22/23 Range/Units 17:08 18:06 08:40 Hgb 10.1 L (11.4-16.0) gm/dL Hct 32.4 L (34.0-46.0) % RDW 16.6 H (11.5-15.5) % Potassium 3.3 L (3.5-5.1) mmol/L Chloride (98-107) mmol/L BUN (7-17) mg/dL Glucose (74-99) mg/dL POC Glucose (mg/dL) 166 H (70-110) mg/dL Calcium (8.4-10.2) mg/dL 11/22/23 11/22/23 Range/Units 08:40 12:05 Hgb (11.4-16.0) gm/dL Hct (34.0-46.0) % RDW (11.5-15.5) % Potassium (3.5-5.1) mmol/L Chloride 115 H (98-107) mmol/L BUN 4 L (7-17) mg/dL Glucose 137 H (74-99) mg/dL POC Glucose (mg/dL) 63 L (70-110) mg/dL Calcium 7.7 L (8.4-10.2) mg/dL Microbiology - Last 24 Hours (Table) 11/20/23 00:17 Stool Culture - Preliminary Stool Assessment and Plan (1) Leukocytosis Current Visit: Yes Status: Acute Code(s): D72.829 - ELEVATED WHITE BLOOD CELL COUNT, UNSPECIFIED SNOMED Code(s): 867767677 (2) Gastroenteritis Current Visit: Yes Status: Acute Code(s): K52.9 - NONINFECTIVE GASTROENTERITIS AND COLITIS, UNSPECIFIED SNOMED Code(s): 54322558 Plan: 1patient presented to hospital with a lower abdominal pain in this patient who did have some tenderness and significant diarrhea patient has been exposed to antibiotic concern for possible C. difficile colitis versus other infectious colitis 2-stool for C. difficile is negative, Stool culture currently pending, patient seem to have shown some improvement on Rocephin and Flagyl to continue and monitor glucose closely Dictation was produced using [employer] dictation software. please excuse any grammatical, word or spelling errors. Time with Patient: Less than 30
[2023-11-22 16:06] LABS: ALT 64 U/L (8-44); AST 43 U/L (13-35); Albumin 3.1 g/dL (3.8-4.9); Albumin/Globulin Ratio 1.72 Ratio (1.60-3.17); Alkaline Phosphatase 80 U/L (41-126); Bilirubin, Conjugated <0.20 mg/dL (0.20-0.40); Bilirubin,Unconjugated >0.20 mg/dL (0.20-1.00); Globulin 1.8 g/dL (1.6-3.3); Total Bilirubin 0.4 mg/dL (0.3-1.2); Total Protein 4.9 g/dL (6.2-8.2)
[2023-11-22 16:40] LABS: Glucose,Whole Blood 63 mg/dL (70-110)
[2023-11-22 17:03] LABS: Glucose,Whole Blood 126 mg/dL (70-110)
[2023-11-22] MEDS: MAGNESIUM SULFATE-D5W PMX 1 GM in DEXTROSE/WATER 1 100ML.BAG IVPB SCH (19:39)
[2023-11-22 19:53] LABS: Glucose,Whole Blood 151 mg/dL (70-110)
[2023-11-23 05:34] LABS: Glucose,Whole Blood 74 mg/dL (70-110)
[2023-11-23] MEDS: FAMOTIDINE 20 MG TAB PO SCH (10:07)
[2023-11-23 10:34] LABS: BUN/Creat Ratio <5.83 Ratio (12.00-20.00); Blood Urea Nitrogen <3.5 mg/dL (9.0-27.0); Calcium 8.5 mg/dL (8.7-10.3); Chloride 112 mmol/L (96-109); Glucose 80 mg/dL (70-110); Magnesium 2.1 mg/dL (1.5-2.4); Potassium 4.2 mmol/L (3.5-5.5); Sodium 144 mmol/L (135-145)
[2023-11-23 11:48] LABS: Glucose,Whole Blood 101 mg/dL (70-110)
--- NOTE | 2023-11-23 13:06 | P.PN ---
Subjective Progress Note Date: 11/23/23 53-year-old female, history of diabetes mellitus, asthma, hyperlipidemia, fibromyalgia, presents to the ER for evaluation today. Patient notes today for evaluation regards to significant abdominal wall pain abnormal electrolytes nausea vomiting diarrhea persistent diarrhea with now decreasing any bowel m ovements at all. Decreased appetite with significant weight loss --Patient was seen in the ED on 11/11/2023 with similar complaints of nausea vomiting diarrhea and abdominal pain that has been going on for past 2 weeks; patient was empirically started on oral vancomycin for C. difficile colitis and was discharged home; symptoms worsened and patient presented back to ED for further evaluation Blood work completed in ED reveals a WBC of 12.5 which is improved from 14.4 on previous admission; hemoglobin of 13.9, platelet 433, sodium 135, potassium 3.0, BUNs/creatinine of 12/0.87, blood glucose of 189, lactic acid level of 1.6 magnesium 1.0, phosphorus 5.5, AST/ALT elevated at 60/48, amylase lipase are negative, UA is positive for large leukocyte esterase, WBCs and bacteria --Patient has been evaluated by general surgery and recommending EGD and colonoscopy -- Given persistent diarrhea patient is recommended to continue with oral vancomycin -Stool studies have been sent including ova, parasites, stool WBCs and culture and C. difficile toxin 11/19/2023 Patient is awake and alert at baseline She states she has not had diarrhea since last Sunday She has lower abdominal pain about 9/10, She has little nausea this morning but no cory vomiting. Appetite is poor. Patient denies urinary symptoms stating his only. Repeat urine analysis is normal CT of the abdomen and pelvis is negative for acute process. Patient is on oral vancomycin, as per patient this medication was started in the emergency room about 9 days ago for total of 10 days, she is supposed to finish her treatment tomorrow. Patient with no fever, and leukocytosis is only mild 11-12 K Surgery team are considering EGD/colonoscopy Discussed with staff 11/20/2023 Patient awake lying in bed, looks with malaise and generally weak. She is with lower abdominal pain and tenderness that looks better than yesterday She ate little bit this morning She has little loose mushy bowel movement this morning She is afebrile. WBC is 11.2, hemoglobin 11.8, liver enzymes mildly elevated. Repeat urine analysis is normal Occult blood in his stool is negative And she has negative inflammatory markers CRP and procalcitonin She remains on oral vancomycin and IV Protonix. Stool culture and C. difficile test are requested and are pending 11/21/2023 Patient awake, lying in bed does not look in distress. Other patient has been asking for more pain medication for her lower abdominal pain she was calm when I saw her and on examination it looks like her lower abdomen is less tender. Diarrhea was stopped yesterday this morning patient states she has another loose bowel movement Patient with no chest pain or dyspnea Patient currently continues with oral vancomycin C. difficile is negative but stool studies still pending She remains on Protonix IV twice a day Patient states that Toradol 15 mg is not helping but she agrees to increase it to 30 mg as needed. Patient also states she has taken [place] before although it was listed in her allergy, MAR was checked again. Discussed with the staff and bedside nurse Barbara we are going to order [place] with close monitoring. Occult blood in the stool came back negative as well 11/22/2023 Patient is seen and examined at bedside She is sleepy this morning wake up readily with verbal stimuli, she has has some questions appropriately. She go back to sleep and looks lethargic As per staff patient requested her Ambien and benzodiazepine together Diarrhea is improving, patient states she has little bowel movement, lower abdominal tenderness is also improving after adding Flagyl to her medication M APS was checked and patient on lorazepam 0.5 mg given 8 days only about 3 to 4 pills/day also she is on gabapentin 300 mg (90 pills over 3 days ) and she was given one-time dose of Valium as per last month 10/2023 Because of this I am going to discontinue her [place], okay to discontinue her Ambien and put her on melatonin as needed Continue to monitor pain medication of Toradol, gabapentin. Also Ativan as needed for anxiety answer all medication Discussed with staff BMP is unremarkable, creatinine 0.5, leukocytosis significantly improved today and back to baseline of 6.5. Liver enzymes are still pending Possible discharge in 24 to 48 hours if she keeps improving 4/5. Patient seen and examined. Still has poor appetite. States abdominal pain has improved. REVIEW OF SYSTEMS: CONSTITUTIONAL: No fever, no malaise,. CARDIOVASCULAR: No chest pain, no palpitations, no syncope. PULMONARY: No shortness of breath, no cough, GASTROINTESTINAL: No diarrhea, no nausea, no vomiting. NEUROLOGICAL: No headaches, no weakness, PHYSICAL EXAMINATION: GENERAL: The patient is alert and oriented x3, not in any acute distress. Well developed, well nourished. HEENT: Pupils are round and equally reacting to light. EOMI. No scleral icterus. No conjunctival pallor. Normocephalic, atraumatic. No pharyngeal erythema. No thyromegaly. CARDIOVASCULAR: S1 and S2 present. No murmurs, rubs, or gallops. PULMONARY: Chest is clear to auscultation, no wheezing or crackles. ABDOMEN: Soft, nontender, nondistended, normoactive bowel sounds. No palpable organomegaly. MUSCULOSKELETAL: No joint swelling or deformity. EXTREMITIES: No cyanosis, clubbing, or pedal edema. NEUROLOGICAL: Gross neurological examination did not reveal any focal deficits. SKIN: No rashes. Assessment and plan 1. Persistent abdominal pain with nausea,and diarrhea (diarrhea has stopped si nye admission) --Patient had CT of the abdomen completed in ED which does not reveal any acute abnormality in abdomen or pelvis -Blood work completed reveals negative amylase lipase; mild transaminitis -Patient is admitted for further evaluation and surgical consult and evaluation -Surgery team are following the case closely -Continue with pain management, risk and benefits including of narcotics are explained for the patient -Continue with Flagyl and ceftriaxone. Leukocytosis improved -Pain management with right avoid opioids or narcotics. Continue with Toradol, and other pain medication 2. Electrolyte imbalance; marked hypokalemia and hypomagnesemia; monitor BMP 3. Transaminitis; AST/ALT elevated at 44/48 with slight upward trend of AST at 60; monitor LFTs 4. Hyperglycemia without acidosis/diabetes mellitus with long-term insulin use; patient takes Levemir 30 units subcu daily; monitor Accu-Cheks before every meal and at bedtime with insulin sliding scale 5. Persistent diarrhea; improving 6. Neuropathy/fibromyalgia; patient takes Neurontin 300 mg every morning and 600 mg nightly 7. Hyperlipidemia; Lipitor 40 mg p.o. nightly; will discontinue statins if liver enzymes continue to trend up 8. Attention; propranolol 80 mg daily 9. Anxiety/depression; Remeron 15 mg p.o. nightly, Lexapro 20 mg daily, BuSpar 15 mg twice daily Labs and medication were reviewed.. Continue same treatment. Continue with symptomatic treatment. Resume home medication. Monitor labs and vitals. DVT and GI prophylaxis. Further recommendations as per clinical course of the patient Dictation was produced using [employer] dictation software. please excuse any grammatical, word or spelling errors. Objective - Vital Signs Vital signs: Vital Signs Temp 99.0 F 11/23/23 07:48 Pulse 54 L 11/23/23 07:48 Resp 18 11/23/23 07:48 BP 124/79 11/23/23 07:48 Pulse Ox 96 11/23/23 07:48 FiO2 Intake & Output 11/22/23 11/23/23 11/23/23 18:59 06:59 18:59 Weight 83.915 kg Other: # Voids 3 2 # Bowel Movements 3 - Labs CBC & Chem 7: 11/22/23 08:40 11/23/23 06:31 Labs: Abnormal Lab Results - Last 24 Hours (Table) 11/22/23 11/22/23 11/22/23 Range/Units 12:01 12:05 16:39 POC Glucose (mg/dL) 63 L 63 L (70-110) mg/dL AST 43 H (13-35) U/L ALT 64 H (8-44) U/L Total Protein 4.9 L (6.2-8.2) g/dL Albumin 3.1 L (3.8-4.9) g/dL 11/22/23 11/22/23 Range/Units 17:02 19:52 POC Glucose (mg/dL) 126 H 151 H (70-110) mg/dL AST (13-35) U/L ALT (8-44) U/L Total Protein (6.2-8.2) g/dL Albumin (3.8-4.9) g/dL Microbiology - Last 24 Hours (Table) 11/20/23 00:17 Stool Culture - Final Stool
--- NOTE | 2023-11-23 14:42 | P.PN ---
Subjective Progress Note Date: 11/23/23 CHIEF COMPLAINT: Abdominal pain with diarrhea HISTORY OF PRESENT ILLNESS: Patient reports she is feeling better today. She had 3 soft bowel movements today. Denies any nausea or vomiting. She is able to tolerate more to eat. She has been up and ambulating. Her pain is less. Afebrile. Sodium 144 potassium improved at 4.2 creatinine 0.6 magnesium improved at 2.1 and phosphorus normal at 3.1 PHYSICAL EXAM: VITAL SIGNS: Reviewed GENERAL: Well-developed in no acute distress. HEENT: No sclera icterus. Extraocular movements grossly intact. Moist buccal mucosa. Head is atraumatic, normocephalic. Hears conversational speech. No nasal drainage. NECK: Supple without lymphadenopathy. CHEST: Non-labored respirations and equal bilateral excursions. CARDIOVASCULAR: Palpable 2+ radial pulses. ABDOMEN: Soft. Nondistended. Diffuse tenderness MUSCULOSKELETAL: No clubbing or cyanosis. NEUROLOGIC: No focal or lateralizing signs. Cranial nerves II through XII grossly intact. PSYCH: Appropriate affect. Alert and oriented to person, place and time. SKIN: Well perfused. Good skin turgor. ASSESSMENT: 1. Intractable abdominal pain, generalized 2. Intractable nausea and vomiting 3. Intractable diarrhea 4. Hypokalemia, recalcitrant. Improved 5. Hypomagnesia. Improved 6. Ileus due to gastroenteritis PLAN: -Patient is tolerating diet. Her pain is improved. Her electrolytes have all been corrected. Patient can be discharged from surgical standpoint -Continue low fiber diet -Recommend to continue Bentyl upon discharge for abdominal wall spasms Physician Seam Stayer note has been reviewed by physician. Signing provider agrees with the documented findings, assessment, and plan of care. Objective - Vital Signs Vital signs: Vital Signs Temp 99.0 F 11/23/23 07:48 Pulse 54 L 11/23/23 07:48 Resp 18 11/23/23 07:48 BP 124/79 11/23/23 07:48 Pulse Ox 96 11/23/23 07:48 FiO2 Intake & Output 11/22/23 11/23/23 11/23/23 18:59 06:59 18:59 Weight 83.915 kg Other: # Voids 3 2 # Bowel Movements 3 - Labs CBC & Chem 7: 11/22/23 08:40 11/23/23 06:31 Labs: Abnormal Lab Results - Last 24 Hours (Table) 11/22/23 11/22/23 11/22/23 Range/Units 12:01 12:05 16:39 Chloride (96-109) mmol/L BUN (9.0-27.0) mg/dL BUN/Creatinine Ratio (12.00-20.00) Ratio POC Glucose (mg/dL) 63 L 63 L (70-110) mg/dL Calcium (8.7-10.3) mg/dL AST 43 H (13-35) U/L ALT 64 H (8-44) U/L Total Protein 4.9 L (6.2-8.2) g/dL Albumin 3.1 L (3.8-4.9) g/dL 11/22/23 11/22/23 11/23/23 Range/Units 17:02 19:52 06:31 Chloride 112 H (96-109) mmol/L BUN <3.5 L (9.0-27.0) mg/dL BUN/Creatinine Ratio <5.83 L (12.00-20.00) Ratio POC Glucose (mg/dL) 126 H 151 H (70-110) mg/dL Calcium 8.5 L (8.7-10.3) mg/dL AST (13-35) U/L ALT (8-44) U/L Total Protein (6.2-8.2) g/dL Albumin (3.8-4.9) g/dL Microbiology - Last 24 Hours (Table) 11/20/23 00:17 Stool Culture - Final Stool
--- NOTE | 2023-11-23 15:31 | P.PN ---
Subjective Progress Note Date: 11/23/23 Principal diagnosis: Reason for follow-up is diarrhea questionably C. difficile Patient is a 53-year-old female with a past medical history significant for diabetes mellitus fibromyalgia hypertension reflux pneumonia asthma recently exposed antibiotic in the form of Augmentin for a tooth infection a week into taking the antibiotic the patient did develop significant diarrhea, present to the hospital with abdominal pain and diarrhea with CT on admission did not show any acute changes. On today's visit that is 11/23/2023,the patient remains to be afebrile, patient is on room air not requiring supplemental oxygen and denies any shortness of breath no chest pain or cough.Patient denies having any nausea or vomiting, abdominal pain has decreased in intensity diarrhea has slowed down and feeling better. Patient did have a creatinine 0.6 white count was 6.5 as of yesterday no CBC was done today stool culture negative Objective - Vital Signs Vital signs: Vital Signs Temp 99.0 F 11/23/23 07:48 Pulse 54 L 11/23/23 07:48 Resp 18 11/23/23 07:48 BP 124/79 11/23/23 07:48 Pulse Ox 96 11/23/23 07:48 FiO2 Intake & Output 11/22/23 11/23/23 11/23/23 18:59 06:59 18:59 Weight 83.915 kg Other: # Voids 3 2 3 # Bowel Movements 3 4 - Exam GENERAL DESCRIPTION: Middle-aged female lying in bed in no distress RESPIRATORY SYSTEM: Unlabored breathing , decreased breath sounds at bases HEART: S1 S2 regular rate and rhythm , ABDOMEN: Soft , mild lower abdominal tenderness EXTREMITIES: No edema feet - Labs CBC & Chem 7: 11/22/23 08:40 11/23/23 06:31 Labs: Abnormal Lab Results - Last 24 Hours (Table) 11/22/23 11/22/23 11/22/23 Range/Units 12:01 16:39 17:02 Chloride (96-109) mmol/L BUN (9.0-27.0) mg/dL BUN/Creatinine Ratio (12.00-20.00) Ratio POC Glucose (mg/dL) 63 L 126 H (70-110) mg/dL Calcium (8.7-10.3) mg/dL AST 43 H (13-35) U/L ALT 64 H (8-44) U/L Total Protein 4.9 L (6.2-8.2) g/dL Albumin 3.1 L (3.8-4.9) g/dL 11/22/23 11/23/23 Range/Units 19:52 06:31 Chloride 112 H (96-109) mmol/L BUN <3.5 L (9.0-27.0) mg/dL BUN/Creatinine Ratio <5.83 L (12.00-20.00) Ratio POC Glucose (mg/dL) 151 H (70-110) mg/dL Calcium 8.5 L (8.7-10.3) mg/dL AST (13-35) U/L ALT (8-44) U/L Total Protein (6.2-8.2) g/dL Albumin (3.8-4.9) g/dL Microbiology - Last 24 Hours (Table) 11/20/23 00:17 Stool Culture - Final Stool Assessment and Plan (1) Leukocytosis Current Visit: Yes Status: Acute Code(s): D72.829 - ELEVATED WHITE BLOOD CELL COUNT, UNSPECIFIED SNOMED Code(s): 217798124 (2) Gastroenteritis Current Visit: Yes Status: Acute Code(s): K52.9 - NONINFECTIVE GASTROENTERITIS AND COLITIS, UNSPECIFIED SNOMED Code(s): 98419209 Plan: 1patient presented to hospital with a lower abdominal pain in this patient who did have some tenderness and significant diarrhea patient has been exposed to antibiotic concern for possible C. difficile colitis versus other infectious colitis 2-stool for C. difficile is negative, Stool culture negative as well 3- patient has shown some improvement on Rocephin and Flagyl to continue and and plan to finish therapy with oral Ceftin and Flagyl Dictation was produced using [employer] dictation software. please excuse any grammatical, word or spelling errors. Time with Patient: Less than 30
[2023-11-23 17:03] LABS: Glucose,Whole Blood 88 mg/dL (70-110)
[2023-11-23 21:48] LABS: Glucose,Whole Blood 137 mg/dL (70-110)
[2023-11-24 06:35] LABS: Glucose,Whole Blood 89 mg/dL (70-110)
[2023-11-24 09:56] LABS: African American GFR (CKD) >90 (>60 ml/min/1.73 sqM); Anion Gap 8 mmol/L; Blood Urea Nitrogen 4 mg/dL (7-17); Calcium 8.3 mg/dL (8.4-10.2); Carbon Dioxide 18 mmol/L (22-30); Chloride 113 mmol/L (98-107); Glucose 295 mg/dL (74-99); Magnesium 1.6 mg/dL (1.6-2.3); Non-African American GFR(CKD) >90 (>60 ml/min/1.73 sqM); Sodium 139 mmol/L (137-145)
[2023-11-24] MEDS: ZINC OXIDE PASTE (Z-GUARD) 1 APPLIC TOPICAL SCH (10:03)
[2023-11-24 11:19] LABS: Glucose,Whole Blood 132 mg/dL (70-110)
[2023-11-24 11:59] LABS: Potassium 3.9 mmol/L (3.5-5.1)
[2023-11-24] MEDS: LACTOBACILLUS ACIDOPHILUS/PECT 1 EACH CAPSULE PO SCH (12:15)
[2023-11-24] MEDS: LOPERAMIDE 2 MG CAP PO PRN (12:16)
[2023-11-24] MEDS: HYDROcodone/APAP 5-325MG 1 EACH TAB PO PRN (12:16)
--- NOTE | 2023-11-24 13:07 | P.PN ---
Subjective Progress Note Date: 11/24/23 53-year-old female, history of diabetes mellitus, asthma, hyperlipidemia, fibromyalgia, presents to the ER for evaluation today. Patient notes today for evaluation regards to significant abdominal wall pain abnormal electrolytes nausea vomiting diarrhea persistent diarrhea with now decreasing any bowel m ovements at all. Decreased appetite with significant weight loss --Patient was seen in the ED on 11/11/2023 with similar complaints of nausea vomiting diarrhea and abdominal pain that has been going on for past 2 weeks; patient was empirically started on oral vancomycin for C. difficile colitis and was discharged home; symptoms worsened and patient presented back to ED for further evaluation Blood work completed in ED reveals a WBC of 12.5 which is improved from 14.4 on previous admission; hemoglobin of 13.9, platelet 433, sodium 135, potassium 3.0, BUNs/creatinine of 12/0.87, blood glucose of 189, lactic acid level of 1.6 magnesium 1.0, phosphorus 5.5, AST/ALT elevated at 60/48, amylase lipase are negative, UA is positive for large leukocyte esterase, WBCs and bacteria --Patient has been evaluated by general surgery and recommending EGD and colonoscopy -- Given persistent diarrhea patient is recommended to continue with oral vancomycin -Stool studies have been sent including ova, parasites, stool WBCs and culture and C. difficile toxin 11/19/2023 Patient is awake and alert at baseline She states she has not had diarrhea since last Sunday She has lower abdominal pain about 9/10, She has little nausea this morning but no cory vomiting. Appetite is poor. Patient denies urinary symptoms stating his only. Repeat urine analysis is normal CT of the abdomen and pelvis is negative for acute process. Patient is on oral vancomycin, as per patient this medication was started in the emergency room about 9 days ago for total of 10 days, she is supposed to finish her treatment tomorrow. Patient with no fever, and leukocytosis is only mild 11-12 K Surgery team are considering EGD/colonoscopy Discussed with staff 11/20/2023 Patient awake lying in bed, looks with malaise and generally weak. She is with lower abdominal pain and tenderness that looks better than yesterday She ate little bit this morning She has little loose mushy bowel movement this morning She is afebrile. WBC is 11.2, hemoglobin 11.8, liver enzymes mildly elevated. Repeat urine analysis is normal Occult blood in his stool is negative And she has negative inflammatory markers CRP and procalcitonin She remains on oral vancomycin and IV Protonix. Stool culture and C. difficile test are requested and are pending 11/21/2023 Patient awake, lying in bed does not look in distress. Other patient has been asking for more pain medication for her lower abdominal pain she was calm when I saw her and on examination it looks like her lower abdomen is less tender. Diarrhea was stopped yesterday this morning patient states she has another loose bowel movement Patient with no chest pain or dyspnea Patient currently continues with oral vancomycin C. difficile is negative but stool studies still pending She remains on Protonix IV twice a day Patient states that Toradol 15 mg is not helping but she agrees to increase it to 30 mg as needed. Patient also states she has taken [place] before although it was listed in her allergy, MAR was checked again. Discussed with the staff and bedside nurse Barbara we are going to order [place] with close monitoring. Occult blood in the stool came back negative as well 11/22/2023 Patient is seen and examined at bedside She is sleepy this morning wake up readily with verbal stimuli, she has has some questions appropriately. She go back to sleep and looks lethargic As per staff patient requested her Ambien and benzodiazepine together Diarrhea is improving, patient states she has little bowel movement, lower abdominal tenderness is also improving after adding Flagyl to her medication M APS was checked and patient on lorazepam 0.5 mg given 8 days only about 3 to 4 pills/day also she is on gabapentin 300 mg (90 pills over 3 days ) and she was given one-time dose of Valium as per last month 10/2023 Because of this I am going to discontinue her [place], okay to discontinue her Ambien and put her on melatonin as needed Continue to monitor pain medication of Toradol, gabapentin. Also Ativan as needed for anxiety answer all medication Discussed with staff BMP is unremarkable, creatinine 0.5, leukocytosis significantly improved today and back to baseline of 6.5. Liver enzymes are still pending Possible discharge in 24 to 48 hours if she keeps improving /5. Patient seen and examined. Still has poor appetite. States abdominal pain has improved. /6. Patient seen and examined. States that her diarrhea has worsened, stated up to 14-15 bowel movements over the last 24 hours. Patient states diarrhea worsened with taking Questran, will DC it. REVIEW OF SYSTEMS: CONSTITUTIONAL: No fever, no malaise,. CARDIOVASCULAR: No chest pain, no palpitations, no syncope. PULMONARY: No shortness of breath, no cough, GASTROINTESTINAL: No diarrhea, no nausea, no vomiting. NEUROLOGICAL: No headaches, no weakness, PHYSICAL EXAMINATION: GENERAL: The patient is alert and oriented x3, not in any acute distress. Well developed, well nourished. HEENT: Pupils are round and equally reacting to light. EOMI. No scleral icterus. No conjunctival pallor. Normocephalic, atraumatic. No pharyngeal erythema. No thyromegaly. CARDIOVASCULAR: S1 and S2 present. No murmurs, rubs, or gallops. PULMONARY: Chest is clear to auscultation, no wheezing or crackles. ABDOMEN: Soft, nontender, nondistended, normoactive bowel sounds. No palpable organomegaly. MUSCULOSKELETAL: No joint swelling or deformity. EXTREMITIES: No cyanosis, clubbing, or pedal edema. NEUROLOGICAL: Gross neurological examination did not reveal any focal deficits. SKIN: No rashes. Assessment and plan 1. Persistent abdominal pain with nausea,and diarrhea (diarrhea has stopped s alyson admission) --Patient had CT of the abdomen completed in ED which does not reveal any acute abnormality in abdomen or pelvis -Continue with pain management, risk and benefits including of narcotics are explained for the patient -Continue with Flagyl and ceftriaxone DC Questran, added Imodium Added lactobacillus Surgery following ID following 2. Electrolyte imbalance; marked hypokalemia and hypomagnesemia; monitor BMP 3. Transaminitis; AST/ALT elevated at 44/48 with slight upward trend of AST at 60; monitor LFTs 4. Hyperglycemia without acidosis/diabetes mellitus with long-term insulin use; patient takes Levemir 30 units subcu daily; monitor Accu-Cheks before every meal and at bedtime with insulin sliding scale 5. Persistent diarrhea; as mentioned above 6. Neuropathy/fibromyalgia; patient takes Neurontin 300 mg every morning and 600 mg nightly 7. Hyperlipidemia; Lipitor 40 mg p.o. nightly; 8. Attention; propranolol 80 mg daily 9. Anxiety/depression; Remeron 15 mg p.o. nightly, Lexapro 20 mg daily, BuSpar 15 mg twice daily Labs and medication were reviewed.. Continue same treatment. Continue with symptomatic treatment. Resume home medication. Monitor labs and vitals. DVT and GI prophylaxis. Further recommendations as per clinical course of the patient Dictation was produced using [employer] dictation software. please excuse any gr ammatical, word or spelling errors. Objective - Vital Signs Vital signs: Vital Signs Temp 98.2 F 11/24/23 07:10 Pulse 59 L 11/24/23 07:10 Resp 18 11/24/23 07:10 BP 109/66 11/24/23 07:10 Pulse Ox 96 11/24/23 07:10 FiO2 Intake & Output 11/23/23 11/24/23 11/24/23 18:59 06:59 18:59 Other: # Voids 2 # Bowel Movements 3 6 - Labs CBC & Chem 7: 11/22/23 08:40 11/24/23 09:06 Labs: Abnormal Lab Results - Last 24 Hours (Table) 11/23/23 11/24/23 11/24/23 Range/Units 21:42 09:06 11:18 Chloride 113 H (98-107) mmol/L Carbon Dioxide 18 L (22-30) mmol/L BUN 4 L (7-17) mg/dL Glucose 295 H (74-99) mg/dL POC Glucose (mg/dL) 137 H 132 H (70-110) mg/dL Calcium 8.3 L (8.4-10.2) mg/dL
[2023-11-24] MEDS: MAGNESIUM SULFATE-D5W PMX 1 GM in DEXTROSE/WATER 1 100ML.BAG IVPB SCH (13:16)
--- NOTE | 2023-11-24 15:10 | P.PN ---
Subjective Progress Note Date: 11/24/23 Principal diagnosis: Reason for follow-up is diarrhea questionably C. difficile Patient is a 53-year-old female with a past medical history significant for diabetes mellitus fibromyalgia hypertension reflux pneumonia asthma recently exposed antibiotic in the form of Augmentin for a tooth infection a week into taking the antibiotic the patient did develop significant diarrhea, present to the hospital with abdominal pain and diarrhea with CT on admission did not show any acute changes. On today's visit that is 11/24/2023, the patient continues to be afebrile, the p atient is on room air and breathing comfortably, the Pt denies having any chest pain or cough, the patient denies any nausea or vomiting or worsening abdominal pain however complaining of more diarrhea and attributing it to the Questran. No CBC was done today creatinine 0.62 Objective - Vital Signs Vital signs: Vital Signs Temp 98.2 F 11/24/23 14:14 Pulse 61 11/24/23 14:14 Resp 18 11/24/23 14:14 BP 104/66 11/24/23 14:14 Pulse Ox 96 11/24/23 14:14 FiO2 Intake & Output 11/23/23 11/24/23 11/24/23 18:59 06:59 18:59 Other: # Voids 2 # Bowel Movements 3 6 - Exam GENERAL DESCRIPTION: Middle-aged female lying in bed in no distress RESPIRATORY SYSTEM: Unlabored breathing , decreased breath sounds at bases HEART: S1 S2 regular rate and rhythm , ABDOMEN: Soft , mild lower abdominal tenderness EXTREMITIES: No edema feet - Labs CBC & Chem 7: 11/22/23 08:40 11/24/23 09:06 Labs: Abnormal Lab Results - Last 24 Hours (Table) 11/23/23 11/24/23 11/24/23 Range/Units 21:42 09:06 11:18 Chloride 113 H (98-107) mmol/L Carbon Dioxide 18 L (22-30) mmol/L BUN 4 L (7-17) mg/dL Glucose 295 H (74-99) mg/dL POC Glucose (mg/dL) 137 H 132 H (70-110) mg/dL Calcium 8.3 L (8.4-10.2) mg/dL Assessment and Plan (1) Leukocytosis Current Visit: Yes Status: Acute Code(s): D72.829 - ELEVATED WHITE BLOOD CELL COUNT, UNSPECIFIED SNOMED Code(s): 007002489 (2) Gastroenteritis Current Visit: Yes Status: Acute Code(s): K52.9 - NONINFECTIVE GASTROENTERITIS AND COLITIS, UNSPECIFIED SNOMED Code(s): 16104567 Plan: 1patient presented to hospital with a lower abdominal pain in this patient who did have some tenderness and significant diarrhea patient has been exposed to antibiotic concern for possible C. difficile colitis versus other infectious colitis 2-stool for C. difficile is negative, Stool culture negative as well 3- patient concerning for increasing diarrhea with Questran has been discontinued and will see response for now continue with Rocephin and Flagyl discussed with medical team Dictation was produced using [employer] dictation software. please excuse any grammatical, word or spelling errors. Time with Patient: Less than 30
[2023-11-24] MEDS: DICYCLOMINE 10 MG CAP PO SCH (16:13)
[2023-11-24 16:51] LABS: Glucose,Whole Blood 97 mg/dL (70-110)
--- NOTE | 2023-11-24 19:08 | P.PN ---
Subjective patient seen and evaluated at bedside. Patient still having significant amount of diarrhea with cramping. Objective - Vital Signs Vital signs: Vital Signs Temp 98.2 F 11/24/23 14:14 Pulse 61 11/24/23 14:14 Resp 18 11/24/23 14:14 BP 104/66 11/24/23 14:14 Pulse Ox 96 11/24/23 14:14 FiO2 Intake & Output 11/24/23 11/24/23 11/25/23 06:59 18:59 06:59 Other: # Voids 8 # Bowel Movements 6 8 - Exam general he distress Cardiovascular regular rate and rhythm Pulmonary nonlabored breathing Abdomen soft, minimally tender, nondistended no guarding rebound tenderness - Labs CBC & Chem 7: 11/22/23 08:40 11/24/23 09:06 Labs: Abnormal Lab Results - Last 24 Hours (Table) 11/23/23 11/24/23 11/24/23 Range/Units 21:42 09:06 11:18 Chloride 113 H (98-107) mmol/L Carbon Dioxide 18 L (22-30) mmol/L BUN 4 L (7-17) mg/dL Glucose 295 H (74-99) mg/dL POC Glucose (mg/dL) 137 H 132 H (70-110) mg/dL Calcium 8.3 L (8.4-10.2) mg/dL Assessment and Plan Assessment: 52-year-old female with abdominal pain likely secondary to gastroenteritis C. diff testing, fecal leukocyte, ova and parasite Probiotic [facility] tolerated Add [place] for pain No surgical intervention
[2023-11-24 20:23] LABS: Glucose,Whole Blood 99 mg/dL (70-110)
[2023-11-25 00:50] LABS: Cryptosporidium Antigen Negative (Negative)
[2023-11-25 01:26] LABS: Glucose,Whole Blood 88 mg/dL (70-110)
[2023-11-25] MEDS: MELATONIN 5 MG TABLET PO PRN (01:32)
[2023-11-25 06:20] LABS: Glucose,Whole Blood 108 mg/dL (70-110)
[2023-11-25 09:53] LABS: Basophils # (A) 0.09 X 10*3/uL (0.00-0.10); Eosinophils # (A) 0.29 X 10*3/uL (0.04-0.35); Eosinophils % (A) 3.3 %; HCT 34.4 % (37.2-46.3); HGB 10.4 g/dL (12.0-15.0); Lymphocytes # (A) 4.42 X 10*3/uL (0.90-5.00); Lymphocytes % (A) 50.6 %; MCH 24.4 pg (27.0-32.0); MCHC 30.2 g/dL (32.0-37.0); MCV 80.8 FL (80.0-97.0); Mean Platelet Volume 10.5 FL (9.5-12.2); Monocytes % (A) 9.2 %; NRBC Per 100 WBC 0 X 10*3/uL (0.00-0.01); Neutrophils # (A) 3.11 X 10*3/uL (1.80-7.70); Neutrophils % (A) 35.7 %; Platelet Count 297 X 10*3/uL (140-440); RBC 4.26 X 10*6/uL (4.10-5.20); RDW 16.9 % (11.5-14.5); WBC 8.73 X 10*3/uL (4.50-10.00)
[2023-11-25 10:06] LABS: ALT 55 U/L (8-44); AST 60 U/L (13-35); Albumin 3.5 g/dL (3.8-4.9); Albumin/Globulin Ratio 1.84 Ratio (1.60-3.17); Alkaline Phosphatase 81 U/L (41-126); BUN/Creat Ratio 8.86 Ratio (12.00-20.00); Blood Urea Nitrogen 6.2 mg/dL (9.0-27.0); Calcium 8.3 mg/dL (8.7-10.3); Carbon Dioxide 21.7 mmol/L (21.6-31.8); Chloride 109 mmol/L (96-109); Globulin 1.9 g/dL (1.6-3.3); Glucose 140 mg/dL (70-110); Sodium 141 mmol/L (135-145); Total Bilirubin 0.3 mg/dL (0.3-1.2); Total Protein 5.4 g/dL (6.2-8.2)
[2023-11-25 11:36] LABS: Glucose,Whole Blood 102 mg/dL (70-110)
--- NOTE | 2023-11-25 12:39 | P.PN ---
Subjective Progress Note Date: 11/25/23 Principal diagnosis: Diarrhea Patient complaining of ongoing diarrhea. Crampy abdominal pain at times. They initiated probiotics and doubled her Imodium. C. difficile is negative. She had 15 loose stools yesterday. Objective - Vital Signs Vital signs: Vital Signs Temp 98.0 F 11/25/23 07:08 Pulse 64 11/25/23 07:08 Resp 18 11/25/23 07:08 BP 103/64 11/25/23 07:08 Pulse Ox 98 11/25/23 07:08 FiO2 Intake & Output 11/24/23 11/25/23 11/25/23 18:59 06:59 18:59 Other: Voiding Method Toilet # Voids 8 2 # Bowel Movements 8 5 - Exam Abdomen: Soft, nontender, nondistended - Labs CBC & Chem 7: 11/25/23 05:11 11/25/23 05:11 Labs: Abnormal Lab Results - Last 24 Hours (Table) 11/24/23 11/25/23 11/25/23 Range/Units 12:30 05:11 05:11 Hgb 10.4 L (12.0-15.0) g/dL Hct 34.4 L (37.2-46.3) % MCH 24.4 L (27.0-32.0) pg MCHC 30.2 L (32.0-37.0) g/dL RDW 16.9 H (11.5-14.5) % BUN 6.2 L (9.0-27.0) mg/dL BUN/Creatinine Ratio 8.86 L (12.00-20.00) Ratio Glucose 140 H (70-110) mg/dL Calcium 8.3 L (8.7-10.3) mg/dL AST 60 H (13-35) U/L ALT 55 H (8-44) U/L Total Protein 5.4 L (6.2-8.2) g/dL Albumin 3.5 L (3.8-4.9) g/dL Stool Lactoferrin Positive A (Negative) Assessment and Plan (1) Intractable abdominal pain Narrative/Plan: 53-year-old female with abdominal pain and diarrhea. Continue antidiarrheals. Advise outpatient GI evaluation. Current Visit: Yes Status: Acute Code(s): R10.9 - UNSPECIFIED ABDOMINAL PAIN SNOMED Code(s): 32640578
--- NOTE | 2023-11-25 12:48 | P.PN ---
Subjective Progress Note Date: 11/25/23 53-year-old female, history of diabetes mellitus, asthma, hyperlipidemia, fibromyalgia, presents to the ER for evaluation today. Patient notes today for evaluation regards to significant abdominal wall pain abnormal electrolytes nausea vomiting diarrhea persistent diarrhea with now decreasing any bowel m ovements at all. Decreased appetite with significant weight loss --Patient was seen in the ED on 11/11/2023 with similar complaints of nausea vomiting diarrhea and abdominal pain that has been going on for past 2 weeks; patient was empirically started on oral vancomycin for C. difficile colitis and was discharged home; symptoms worsened and patient presented back to ED for further evaluation Blood work completed in ED reveals a WBC of 12.5 which is improved from 14.4 on previous admission; hemoglobin of 13.9, platelet 433, sodium 135, potassium 3.0, BUNs/creatinine of 12/0.87, blood glucose of 189, lactic acid level of 1.6 magnesium 1.0, phosphorus 5.5, AST/ALT elevated at 60/48, amylase lipase are negative, UA is positive for large leukocyte esterase, WBCs and bacteria --Patient has been evaluated by general surgery and recommending EGD and colonoscopy -- Given persistent diarrhea patient is recommended to continue with oral vancomycin -Stool studies have been sent including ova, parasites, stool WBCs and culture and C. difficile toxin 11/19/2023 Patient is awake and alert at baseline She states she has not had diarrhea since last Sunday She has lower abdominal pain about 9/10, She has little nausea this morning but no cory vomiting. Appetite is poor. Patient denies urinary symptoms stating his only. Repeat urine analysis is normal CT of the abdomen and pelvis is negative for acute process. Patient is on oral vancomycin, as per patient this medication was started in the emergency room about 9 days ago for total of 10 days, she is supposed to finish her treatment tomorrow. Patient with no fever, and leukocytosis is only mild 11-12 K Surgery team are considering EGD/colonoscopy Discussed with staff 11/20/2023 Patient awake lying in bed, looks with malaise and generally weak. She is with lower abdominal pain and tenderness that looks better than yesterday She ate little bit this morning She has little loose mushy bowel movement this morning She is afebrile. WBC is 11.2, hemoglobin 11.8, liver enzymes mildly elevated. Repeat urine analysis is normal Occult blood in his stool is negative And she has negative inflammatory markers CRP and procalcitonin She remains on oral vancomycin and IV Protonix. Stool culture and C. difficile test are requested and are pending 11/21/2023 Patient awake, lying in bed does not look in distress. Other patient has been asking for more pain medication for her lower abdominal pain she was calm when I saw her and on examination it looks like her lower abdomen is less tender. Diarrhea was stopped yesterday this morning patient states she has another loose bowel movement Patient with no chest pain or dyspnea Patient currently continues with oral vancomycin C. difficile is negative but stool studies still pending She remains on Protonix IV twice a day Patient states that Toradol 15 mg is not helping but she agrees to increase it to 30 mg as needed. Patient also states she has taken Eleroy before although it was listed in her allergy, MAR was checked again. Discussed with the staff and bedside nurse Barbara we are going to order Eleroy with close monitoring. Occult blood in the stool came back negative as well 11/22/2023 Patient is seen and examined at bedside She is sleepy this morning wake up readily with verbal stimuli, she has has some questions appropriately. She go back to sleep and looks lethargic As per staff patient requested her Ambien and benzodiazepine together Diarrhea is improving, patient states she has little bowel movement, lower abdominal tenderness is also improving after adding Flagyl to her medication M APS was checked and patient on lorazepam 0.5 mg given 8 days only about 3 to 4 pills/day also she is on gabapentin 300 mg (90 pills over 3 days ) and she was given one-time dose of Valium as per last month 10/2023 Because of this I am going to discontinue her Eleroy, okay to discontinue her Ambien and put her on melatonin as needed Continue to monitor pain medication of Toradol, gabapentin. Also Ativan as needed for anxiety answer all medication Discussed with staff BMP is unremarkable, creatinine 0.5, leukocytosis significantly improved today and back to baseline of 6.5. Liver enzymes are still pending Possible discharge in 24 to 48 hours if she keeps improving /5. Patient seen and examined. Still has poor appetite. States abdominal pain has improved. /6. Patient seen and examined. States that her diarrhea has worsened, stated up to 14-15 bowel movements over the last 24 hours. Patient states diarrhea worsened with taking Questran, will DC it. 11/24. Patient seen and examined. Still having diarrhea, lactoferrin was positive in stool, suspicion of inflammatory bowel disease. Will continue with antidiarrheal medications and probiotics. Outpatient GI follow-up REVIEW OF SYSTEMS: CONSTITUTIONAL: No fever, no malaise,. CARDIOVASCULAR: No chest pain, no palpitations, no syncope. PULMONARY: No shortness of breath, no cough, GASTROINTESTINAL: No diarrhea, no nausea, no vomiting. NEUROLOGICAL: No headaches, no weakness, PHYSICAL EXAMINATION: GENERAL: The patient is alert and oriented x3, not in any acute distress. Well developed, well nourished. HEENT: Pupils are round and equally reacting to light. EOMI. No scleral icterus. No conjunctival pallor. Normocephalic, atraumatic. No pharyngeal erythema. No thyromegaly. CARDIOVASCULAR: S1 and S2 present. No murmurs, rubs, or gallops. PULMONARY: Chest is clear to auscultation, no wheezing or crackles. ABDOMEN: Soft, nontender, nondistended, normoactive bowel sounds. No palpable organomegaly. MUSCULOSKELETAL: No joint swelling or deformity. EXTREMITIES: No cyanosis, clubbing, or pedal edema. NEUROLOGICAL: Gross neurological examination did not reveal any focal deficits. SKIN: No rashes. Assessment and plan 1. Persistent abdominal pain with nausea,and diarrhea (diarrhea has stopped since admission) --Patient had CT of the abdomen completed in ED which does not reveal any acute abnormality in abdomen or pelvis -Continue with pain management, risk and benefits including of narcotics are explained for the patient -Continue with Flagyl and ceftriaxone Continue Imodium Continue lactobacillus Surgery following ID following 2. Electrolyte imbalance; marked hypokalemia and hypomagnesemia; monitor BMP 3. Transaminitis; AST/ALT elevated at 44/48 with slight upward trend of AST at 60; monitor LFTs 4. Hyperglycemia without acidosis/diabetes mellitus with long-term insulin use; patient takes Levemir 30 units subcu daily; monitor Accu-Cheks before every meal and at bedtime with insulin sliding scale 5. Persistent diarrhea; as mentioned above 6. Neuropathy/fibromyalgia; patient takes Neurontin 300 mg every morning and 600 mg nightly 7. Hyperlipidemia; Lipitor 40 mg p.o. nightly; 8. Attention; propranolol 80 mg daily 9. Anxiety/depression; Remeron 15 mg p.o. nightly, Lexapro 20 mg daily, BuSpar 15 mg twice daily Labs and medication were reviewed.. Continue same treatment. Continue with symptomatic treatment. Resume home medication. Monitor labs and vitals. DVT and GI prophylaxis. Further recommendations as per clinical course of the patient Dictation was produced using [employer] dictation software. please excuse any grammatical, word or spelling errors. Objective - Vital Signs Vital signs: Vital Signs Temp 98.0 F 11/25/23 07:08 Pulse 64 11/25/23 07:08 Resp 18 11/25/23 07:08 BP 103/64 11/25/23 07:08 Pulse Ox 98 11/25/23 07:08 FiO2 Intake & Output 11/24/23 11/25/23 11/25/23 18:59 06:59 18:59 Other: Voiding Method Toilet # Voids 8 2 # Bowel Movements 8 5 - Labs CBC & Chem 7: 11/25/23 05:11 11/25/23 05:11 Labs: Abnormal Lab Results - Last 24 Hours (Table) 11/24/23 11/24/23 11/24/23 Range/Units 09:06 11:18 12:30 Chloride 113 H (98-107) mmol/L Carbon Dioxide 18 L (22-30) mmol/L BUN 4 L (7-17) mg/dL Glucose 295 H (74-99) mg/dL POC Glucose (mg/dL) 132 H (70-110) mg/dL Calcium 8.3 L (8.4-10.2) mg/dL Stool Lactoferrin Positive A (Negative)
[2023-11-25] MEDS: HYDROmorphone 0.5 MG/0.5 ML SYRINGE IVP PRN (14:43)
--- NOTE | 2023-11-25 15:13 | P.PN ---
Subjective Progress Note Date: 11/25/23 Principal diagnosis: Reason for follow-up is diarrhea questionably C. difficile Patient is a 53-year-old female with a past medical history significant for diabetes mellitus fibromyalgia hypertension reflux pneumonia asthma recently exposed antibiotic in the form of Augmentin for a tooth infection a week into taking the antibiotic the patient did develop significant diarrhea, present to the hospital with abdominal pain and diarrhea with CT on admission did not show any acute changes. On today's visit that is 11/25/2023, Patient is afebrile patient is currently on room air and denies having any shortness of breath, the patient denies any chest pain or cough, the patient denies any nausea vomiting, still complaining of lower abdominal pain and multiple loose stools Objective - Vital Signs Vital signs: Vital Signs Temp 98.4 F 11/25/23 13:24 Pulse 56 L 11/25/23 13:24 Resp 17 11/25/23 13:24 BP 114/68 11/25/23 13:24 Pulse Ox 98 11/25/23 13:24 FiO2 Intake & Output 11/24/23 11/25/23 11/25/23 18:59 06:59 18:59 Other: Voiding Method Toilet # Voids 8 2 4 # Bowel Movements 8 5 9 - Exam GENERAL DESCRIPTION: Middle-aged female lying in bed in no distress RESPIRATORY SYSTEM: Unlabored breathing , decreased breath sounds at bases HEART: S1 S2 regular rate and rhythm , ABDOMEN: Soft , mild lower abdominal tenderness EXTREMITIES: No edema feet - Labs CBC & Chem 7: 11/25/23 05:11 11/25/23 05:11 Labs: Abnormal Lab Results - Last 24 Hours (Table) 11/24/23 11/25/23 11/25/23 Range/Units 12:30 05:11 05:11 Hgb 10.4 L (12.0-15.0) g/dL Hct 34.4 L (37.2-46.3) % MCH 24.4 L (27.0-32.0) pg MCHC 30.2 L (32.0-37.0) g/dL RDW 16.9 H (11.5-14.5) % BUN 6.2 L (9.0-27.0) mg/dL BUN/Creatinine Ratio 8.86 L (12.00-20.00) Ratio Glucose 140 H (70-110) mg/dL Calcium 8.3 L (8.7-10.3) mg/dL AST 60 H (13-35) U/L ALT 55 H (8-44) U/L Total Protein 5.4 L (6.2-8.2) g/dL Albumin 3.5 L (3.8-4.9) g/dL Stool Lactoferrin Positive A (Negative) Assessment and Plan (1) Leukocytosis Current Visit: Yes Status: Acute Code(s): D72.829 - ELEVATED WHITE BLOOD CELL COUNT, UNSPECIFIED SNOMED Code(s): 025377625 (2) Gastroenteritis Current Visit: Yes Status: Acute Code(s): K52.9 - NONINFECTIVE GASTROENTERITIS AND COLITIS, UNSPECIFIED SNOMED Code(s): 40986527 Plan: 1patient presented to hospital with a lower abdominal pain in this patient who did have some tenderness and significant diarrhea patient has been exposed to antibiotic concern for possible C. difficile colitis versus other infectious colitis 2-stool for C. difficile is negative, Stool culture negative as well 3- patient remains to be afebrile white count is normal stool lactoferrin was positive still having diarrhea she will benefit from colonoscopy for now continue Rocephin and Flagyl Dictation was produced using [employer] dictation software. please excuse any grammatical, word or spelling errors. Time with Patient: Less than 30
[2023-11-25 16:17] LABS: Glucose,Whole Blood 112 mg/dL (70-110)
[2023-11-25 20:09] LABS: Glucose,Whole Blood 129 mg/dL (70-110)
[2023-11-26 00:33] LABS: Glucose,Whole Blood 103 mg/dL (70-110)
[2023-11-26 04:33] LABS: Glucose,Whole Blood 96 mg/dL (70-110)
[2023-11-26 05:58] LABS: Glucose,Whole Blood 94 mg/dL (70-110)
[2023-11-26 08:49] LABS: Basophils # (A) 0.09 X 10*3/uL (0.00-0.10); Basophils % (A) 1.1 %; Eosinophils # (A) 0.23 X 10*3/uL (0.04-0.35); Eosinophils % (A) 2.7 %; HCT 36.2 % (37.2-46.3); HGB 10.9 g/dL (12.0-15.0); Lymphocytes # (A) 3.72 X 10*3/uL (0.90-5.00); Lymphocytes % (A) 44.2 %; MCH 24.5 pg (27.0-32.0); MCHC 30.1 g/dL (32.0-37.0); MCV 81.3 FL (80.0-97.0); Mean Platelet Volume 10.5 FL (9.5-12.2); Monocytes # (A) 0.67 X 10*3/uL (0.20-1.00); NRBC Per 100 WBC 0 X 10*3/uL (0.00-0.01); Neutrophils % (A) 43.9 %; Platelet Count 294 X 10*3/uL (140-440); RBC 4.45 X 10*6/uL (4.10-5.20); RDW 16.4 % (11.5-14.5); WBC 8.42 X 10*3/uL (4.50-10.00)
[2023-11-26 09:02] LABS: ALT 59 U/L (8-44); AST 73 U/L (13-35); Albumin 3.7 g/dL (3.8-4.9); Albumin/Globulin Ratio 1.68 Ratio (1.60-3.17); Alkaline Phosphatase 85 U/L (41-126); BUN/Creat Ratio 9.71 Ratio (12.00-20.00); Blood Urea Nitrogen 6.8 mg/dL (9.0-27.0); Calcium 8.6 mg/dL (8.7-10.3); Carbon Dioxide 21.2 mmol/L (21.6-31.8); Chloride 108 mmol/L (96-109); Globulin 2.2 g/dL (1.6-3.3); Glucose 100 mg/dL (70-110); Potassium 4.7 mmol/L (3.5-5.5); Sodium 139 mmol/L (135-145); Total Bilirubin 0.3 mg/dL (0.3-1.2); Total Protein 5.9 g/dL (6.2-8.2)
[2023-11-26 11:30] LABS: Glucose,Whole Blood 96 mg/dL (70-110)
--- NOTE | 2023-11-26 13:19 | P.PN ---
Subjective Progress Note Date: 11/26/23 this is a 53-year-old female patient of Dr. Knight who initially presented to ER with concerns of abdominal pain with nausea vomiting and diarrhea along with electrolyte imbalance. According to records patient originally presented [facility] on 11/11/2023 with complaints of nausea vomiting and diarrhea that has been going on for the past 2 weeks. Patient was treated with oral vancomycin for C. diff was discharged home. Patient returned with lack of improvement of symptoms. Patient has a past medical history of diabetes mellitus, asthma, hyperlipidemia, fibromyalgia. CT of abdomen and pelvis was negative for acute process patient was maintained on oral vancomycin. Dr. Nails group was covering we are resuming care patient on 11/26/2023 patient is alert and oriented 3. Patient still complaining about significant diarrhea abdomen is soft but tender to palpation. Infectious disease and surgical services are following. according to records patient'sWilliam with increased and patient started on Questran. Surgical services are following with possible thought of colonoscopy. Patient remains on Flagyl and Rocephin.patient denies chest pain. Patient denies nausea or vomiting. Patient denies any urinary burning or frequency. Current vital signs temp 98.2, heart rate 70, respiratory rate 16, blood pressure 127/85 pulse ox 98% on room air Objective - Vital Signs Vital signs: Vital Signs Temp 98.2 F 11/26/23 07:18 Pulse 70 11/26/23 07:18 Resp 16 11/26/23 07:18 BP 127/85 11/26/23 07:18 Pulse Ox 98 11/26/23 07:18 FiO2 Intake & Output 11/25/23 11/26/23 11/26/23 18:59 06:59 18:59 Other: Voiding Method Toilet # Voids 4 1 # Bowel Movements 2 1 4 - Exam Head normocephalic Neck supple Lungs clear to auscultation bilaterally no wheezing or crackles Heart regular rate and rhythm S1-S2, no rub or gallop Abdomen is soft nontender nondistended positive bowel sounds no hepatosplenomegaly Extremities no edema Neuro alert and orientated to 3 - Labs CBC & Chem 7: 11/26/23 05:36 11/26/23 05:36 Labs: Abnormal Lab Results - Last 24 Hours (Table) 11/25/23 11/25/23 11/26/23 Range/Units 16:14 20:08 05:36 Hgb 10.9 L (12.0-15.0) g/dL Hct 36.2 L (37.2-46.3) % MCH 24.5 L (27.0-32.0) pg MCHC 30.1 L (32.0-37.0) g/dL RDW 16.4 H (11.5-14.5) % Carbon Dioxide (21.6-31.8) mmol/L BUN (9.0-27.0) mg/dL BUN/Creatinine Ratio (12.00-20.00) Ratio POC Glucose (mg/dL) 112 H 129 H (70-110) mg/dL Calcium (8.7-10.3) mg/dL AST (13-35) U/L ALT (8-44) U/L Total Protein (6.2-8.2) g/dL Albumin (3.8-4.9) g/dL 11/26/23 Range/Units 05:36 Hgb (12.0-15.0) g/dL Hct (37.2-46.3) % MCH (27.0-32.0) pg MCHC (32.0-37.0) g/dL RDW (11.5-14.5) % Carbon Dioxide 21.2 L (21.6-31.8) mmol/L BUN 6.8 L (9.0-27.0) mg/dL BUN/Creatinine Ratio 9.71 L (12.00-20.00) Ratio POC Glucose (mg/dL) (70-110) mg/dL Calcium 8.6 L (8.7-10.3) mg/dL AST 73 H (13-35) U/L ALT 59 H (8-44) U/L Total Protein 5.9 L (6.2-8.2) g/dL Albumin 3.7 L (3.8-4.9) g/dL Microbiology - Last 24 Hours (Table) 11/20/23 00:17 Stool Culture - Final Stool Assessment and Plan Assessment: 1. persistent abdominal pain with nausea and diarrhea. CT of abdomen does not reveal any acute abnormality in the abdomen and pelvis. Patient was started on Flagyl and Rocephin. Stool positive for lactoferrin. patient maintained on Flagyl and Rocephin. Infectious disease and surgical services are following 2. Electively balance 3. Elevated liver enzymes 4. History of fibromyalgia 5. Diabetes mellitus type 2 6. History of hyperlipidemia 7. History of anxiety and depression infectious disease and surgical services are following Patient maintained on IV antibiotics Repeat labs in a.m.
--- NOTE | 2023-11-26 14:42 | P.PN ---
Subjective Progress Note Date: 11/26/23 Principal diagnosis: Reason for follow-up is diarrhea questionably C. difficile Patient is a 53-year-old female with a past medical history significant for diabetes mellitus fibromyalgia hypertension reflux pneumonia asthma recently exposed antibiotic in the form of Augmentin for a tooth infection a week into taking the antibiotic the patient did develop significant diarrhea, present to the hospital with abdominal pain and diarrhea with CT on admission did not show any acute changes. On today's visit that is 11/26/2023, patient has been afebrile, patient is breat maykel comfortably and is currently on room air, patient denies having any significant cough no chest pain shortness of breath, patient denies nausea vomiting or any worsening abdominal pain still have significant diarrhea with multiple loose stools. Patient had white count 8.42, creatinine 0.7 Objective - Vital Signs Vital signs: Vital Signs Temp 98.2 F 11/26/23 07:18 Pulse 70 11/26/23 07:18 Resp 16 11/26/23 07:18 BP 127/85 11/26/23 07:18 Pulse Ox 98 11/26/23 07:18 FiO2 Intake & Output 11/25/23 11/26/23 11/26/23 18:59 06:59 18:59 Other: Voiding Method Toilet # Voids 4 1 # Bowel Movements 2 1 - Exam GENERAL DESCRIPTION: Middle-aged female lying in bed in no distress RESPIRATORY SYSTEM: Unlabored breathing , decreased breath sounds at bases HEART: S1 S2 regular rate and rhythm , ABDOMEN: Soft , mild lower abdominal tenderness EXTREMITIES: No edema feet - Labs CBC & Chem 7: 11/26/23 05:36 11/26/23 05:36 Labs: Abnormal Lab Results - Last 24 Hours (Table) 11/25/23 11/25/23 11/26/23 Range/Units 16:14 20:08 05:36 Hgb 10.9 L (12.0-15.0) g/dL Hct 36.2 L (37.2-46.3) % MCH 24.5 L (27.0-32.0) pg MCHC 30.1 L (32.0-37.0) g/dL RDW 16.4 H (11.5-14.5) % Carbon Dioxide (21.6-31.8) mmol/L BUN (9.0-27.0) mg/dL BUN/Creatinine Ratio (12.00-20.00) Ratio POC Glucose (mg/dL) 112 H 129 H (70-110) mg/dL Calcium (8.7-10.3) mg/dL AST (13-35) U/L ALT (8-44) U/L Total Protein (6.2-8.2) g/dL Albumin (3.8-4.9) g/dL 11/26/23 Range/Units 05:36 Hgb (12.0-15.0) g/dL Hct (37.2-46.3) % MCH (27.0-32.0) pg MCHC (32.0-37.0) g/dL RDW (11.5-14.5) % Carbon Dioxide 21.2 L (21.6-31.8) mmol/L BUN 6.8 L (9.0-27.0) mg/dL BUN/Creatinine Ratio 9.71 L (12.00-20.00) Ratio POC Glucose (mg/dL) (70-110) mg/dL Calcium 8.6 L (8.7-10.3) mg/dL AST 73 H (13-35) U/L ALT 59 H (8-44) U/L Total Protein 5.9 L (6.2-8.2) g/dL Albumin 3.7 L (3.8-4.9) g/dL Microbiology - Last 24 Hours (Table) 11/20/23 00:17 Stool Culture - Final Stool Assessment and Plan (1) Leukocytosis Current Visit: Yes Status: Acute Code(s): D72.829 - ELEVATED WHITE BLOOD CELL COUNT, UNSPECIFIED SNOMED Code(s): 458809486 (2) Gastroenteritis Current Visit: Yes Status: Acute Code(s): K52.9 - NONINFECTIVE GASTROENTERITIS AND COLITIS, UNSPECIFIED SNOMED Code(s): 73591477 Plan: 1patient presented to hospital with a lower abdominal pain in this patient who did have some tenderness and significant diarrhea patient has been exposed to antibiotic concern for possible C. difficile colitis versus other infectious co litis 2-stool for C. difficile is negative, Stool culture negative as well 3- patient remains to be afebrile white count is normal stool lactoferrin was positive, the patient diarrhea has not responded to Rocephin, rather some worsening we will discontinue Rocephin, continue Flagyl will benefit from colonoscopy versus trial of steroids Dictation was produced using [employer] dictation software. please excuse any grammatical, word or spelling errors. Time with Patient: Less than 30
--- NOTE | 2023-11-26 16:17 | P.PN ---
Subjective Progress Note Date: 11/26/23 CHIEF COMPLAINT: Abdominal pain with diarrhea HISTORY OF PRESENT ILLNESS: Patient continuing to have diarrhea. She reports about 12 episodes of diarrhea yesterday and 3 episodes this morning. Patient reports that she has increasing pain and diarrhea after eating. She does report that overall the pain has decreased since admission. She is on a low fiber diet. She is receiving Imodium and Bentyl and probiotics. Afebrile. WBC 8.42 Hgb 10.9 platelets 294 creatinine 0.7 potassium 4.7 PHYSICAL EXAM: VITAL SIGNS: Reviewed GENERAL: Well-developed in no acute distress. HEENT: No sclera icterus. Extraocular movements grossly intact. Moist buccal mucosa. Head is atraumatic, normocephalic. Hears conversational speech. No nasal drainage. NECK: Supple without lymphadenopathy. CHEST: Non-labored respirations and equal bilateral excursions. CARDIOVASCULAR: Palpable 2+ radial pulses. ABDOMEN: Soft. Nondistended. Mild tenderness to palpation of lower abdomen MUSCULOSKELETAL: No clubbing or cyanosis. NEUROLOGIC: No focal or lateralizing signs. Cranial nerves II through XII grossly intact. PSYCH: Appropriate affect. Alert and oriented to person, place and time. SKIN: Well perfused. Good skin turgor. ASSESSMENT: 1. Abdominal pain and Viral gastroenteritis 2. Intractable nausea and vomiting 3. Intractable diarrhea 4. Hypokalemia, recalcitrant. Improved 5. Hypomagnesia. Improved 6. Ileus due to gastroenteritis PLAN: -Check stool for ova and parasites -Continue low fiber diet -Continue Imodium, Bentyl and probiotics Physician Insurance Claims Processor note has been reviewed by physician. Signing provider agrees with the documented findings, assessment, and plan of care. Objective - Vital Signs Vital signs: Vital Signs Temp 98.5 F 11/26/23 13:01 Pulse 77 11/26/23 13:01 Resp 19 11/26/23 13:01 BP 100/64 11/26/23 13:01 Pulse Ox 95 11/26/23 13:01 FiO2 Intake & Output 11/25/23 11/26/23 11/26/23 18:59 06:59 18:59 Other: Voiding Method Toilet # Voids 4 1 # Bowel Movements 2 1 4 - Labs CBC & Chem 7: 11/26/23 05:36 11/26/23 05:36 Labs: Abnormal Lab Results - Last 24 Hours (Table) 11/25/23 11/25/23 11/26/23 Range/Units 16:14 20:08 05:36 Hgb 10.9 L (12.0-15.0) g/dL Hct 36.2 L (37.2-46.3) % MCH 24.5 L (27.0-32.0) pg MCHC 30.1 L (32.0-37.0) g/dL RDW 16.4 H (11.5-14.5) % Carbon Dioxide (21.6-31.8) mmol/L BUN (9.0-27.0) mg/dL BUN/Creatinine Ratio (12.00-20.00) Ratio POC Glucose (mg/dL) 112 H 129 H (70-110) mg/dL Calcium (8.7-10.3) mg/dL AST (13-35) U/L ALT (8-44) U/L Total Protein (6.2-8.2) g/dL Albumin (3.8-4.9) g/dL 11/26/23 Range/Units 05:36 Hgb (12.0-15.0) g/dL Hct (37.2-46.3) % MCH (27.0-32.0) pg MCHC (32.0-37.0) g/dL RDW (11.5-14.5) % Carbon Dioxide 21.2 L (21.6-31.8) mmol/L BUN 6.8 L (9.0-27.0) mg/dL BUN/Creatinine Ratio 9.71 L (12.00-20.00) Ratio POC Glucose (mg/dL) (70-110) mg/dL Calcium 8.6 L (8.7-10.3) mg/dL AST 73 H (13-35) U/L ALT 59 H (8-44) U/L Total Protein 5.9 L (6.2-8.2) g/dL Albumin 3.7 L (3.8-4.9) g/dL Microbiology - Last 24 Hours (Table) 11/20/23 00:17 Stool Culture - Final Stool
[2023-11-26 16:32] LABS: Glucose,Whole Blood 143 mg/dL (70-110)
[2023-11-26 20:36] LABS: Glucose,Whole Blood 99 mg/dL (70-110)
[2023-11-27 05:39] LABS: Glucose,Whole Blood 106 mg/dL (70-110)
--- NOTE | 2023-11-27 09:27 | P.PN ---
Subjective Progress Note Date: 11/27/23 this is a 53-year-old female patient of Dr. Knight who initially presented to ER with concerns of abdominal pain with nausea vomiting and diarrhea along with electrolyte imbalance. According to records patient originally presented [facility] on 11/11/2023 with complaints of nausea vomiting and diarrhea that has been going on for the past 2 weeks. Patient was treated with oral vancomycin for C. diff was discharged home. Patient returned with lack of improvement of symptoms. Patient has a past medical history of diabetes mellitus, asthma, hyperlipidemia, fibromyalgia. CT of abdomen and pelvis was negative for acute process patient was maintained on oral vancomycin. Dr. Nails group was covering we are resuming care patient on 11/26/2023 patient is alert and oriented 3. Patient still complaining about significant diarrhea abdomen is soft but tender to palpation. Infectious disease and surgical services are following. according to records patient'sWilliam with increased and patient started on Questran. Surgical services are following with possible thought of colonoscopy. Patient remains on Flagyl and Rocephin.patient denies chest pain. Patient denies nausea or vomiting. Patient denies any urinary burning or frequency. Current vital signs temp 98.2, heart rate 70, respiratory rate 16, blood pressure 127/85 pulse ox 98% on room air On 11/27/2023 patient is alert and oriented 3 still complaining of significant diarrhea. Plan for colonoscopy tomorrow for for 11/28/2023. current vital signs temp 98.3, heart rate 81, respiratory rate 18, blood pressure 108/74 with pulse ox 96%. Patient remains onFlagyl. Surgical services and infectious disease services are following Objective - Vital Signs Vital signs: Vital Signs Temp 98.3 F 11/27/23 07:12 Pulse 81 11/27/23 07:12 Resp 18 11/27/23 07:12 BP 108/74 11/27/23 07:12 Pulse Ox 96 11/27/23 07:12 FiO2 Intake & Output 11/26/23 11/27/23 11/27/23 18:59 06:59 18:59 Other: Voiding Method Toilet # Voids 1 # Bowel Movements 8 - Exam Head normocephalic Neck supple Lungs clear to auscultation bilaterally no wheezing or crackles Heart regular rate and rhythm S1-S2, no rub or gallop Abdomen is soft nontender nondistended positive bowel sounds no hepatosplenomegaly Extremities no edema Neuro alert and orientated to 3 - Labs CBC & Chem 7: 11/26/23 05:36 11/26/23 05:36 Labs: Abnormal Lab Results - Last 24 Hours (Table) 11/26/23 Range/Units 16:30 POC Glucose (mg/dL) 143 H (70-110) mg/dL Microbiology - Last 24 Hours (Table) 11/20/23 00:17 Stool Culture - Final Stool Assessment and Plan Assessment: 1. persistent abdominal pain with nausea and diarrhea. CT of abdomen does not reveal any acute abnormality in the abdomen and pelvis. Patient was started on Flagyl and Rocephin. Stool positive for lactoferrin. patient maintained on Flagyl and Rocephin. Infectious disease and surgical services are following 2. Electively balance 3. Elevated liver enzymes 4. History of fibromyalgia 5. Diabetes mellitus type 2 6. History of hyperlipidemia 7. History of anxiety and depression infectious disease and surgical services are following Patient maintained on IV antibiotics plans for colonoscopy on 11/28/2023 Repeat labs in a.m.
[2023-11-27 11:07] LABS: BUN/Creat Ratio 10.29 Ratio (12.00-20.00); Blood Urea Nitrogen 7.2 mg/dL (9.0-27.0); Glucose 116 mg/dL (70-110)
[2023-11-27 11:08] LABS: ALT 49 U/L (8-44); AST 56 U/L (13-35); Albumin 3.7 g/dL (3.8-4.9); Albumin/Globulin Ratio 1.61 Ratio (1.60-3.17); Alkaline Phosphatase 93 U/L (41-126); Calcium 8.8 mg/dL (8.7-10.3); Chloride 106 mmol/L (96-109); Globulin 2.3 g/dL (1.6-3.3); Potassium 4.5 mmol/L (3.5-5.5); Sodium 135 mmol/L (135-145); Total Bilirubin <0.2 mg/dL (0.3-1.2)
[2023-11-27 11:22] LABS: INR 1.06 sec (0.93-1.11); Prothrombin Time 11.4 sec (9.9-11.9)
[2023-11-27 11:45] LABS: Glucose,Whole Blood 63 mg/dL (70-110)
[2023-11-27 12:04] LABS: Glucose,Whole Blood 97 mg/dL (70-110)
[2023-11-27] MEDS: PEG 3350 (420 GM/BTL) + LYTES 4,000 ML BOTTLE PO ONE (12:42)
--- NOTE | 2023-11-27 15:08 | P.PN ---
Subjective Progress Note Date: 11/27/23 Principal diagnosis: Reason for follow-up is diarrhea questionably C. difficile Patient is a 53-year-old female with a past medical history significant for diabetes mellitus fibromyalgia hypertension reflux pneumonia asthma recently exposed antibiotic in the form of Augmentin for a tooth infection a week into taking the antibiotic the patient did develop significant diarrhea, present to the hospital with abdominal pain and diarrhea with CT on admission did not show any acute changes. On today's visit that is 11/27/2023,the patient denies any fever or any chills, patient is breathing comfortably on room air, the patient denies chest pain shortness of breath and no significant cough, patient denies any nausea vomiting still complains of abdominal discomfort associated with food intake indicated having diarrhea. Patient did have a creatinine 0.72 white count was 8.42 as of yesterday stool culture negative Objective - Vital Signs Vital signs: Vital Signs Temp 97.6 F 11/27/23 13:57 Pulse 70 11/27/23 13:57 Resp 19 11/27/23 13:57 BP 100/69 11/27/23 13:57 Pulse Ox 97 11/27/23 13:57 FiO2 Intake & Output 11/26/23 11/27/23 11/27/23 18:59 06:59 18:59 Other: Voiding Method Toilet # Voids 1 # Bowel Movements 8 - Exam GENERAL DESCRIPTION: Middle-aged female lying in bed in no distress RESPIRATORY SYSTEM: Unlabored breathing , decreased breath sounds at bases HEART: S1 S2 regular rate and rhythm , ABDOMEN: Soft , mild lower abdominal tenderness EXTREMITIES: No edema feet - Labs CBC & Chem 7: 11/26/23 05:36 11/27/23 05:32 Labs: Abnormal Lab Results - Last 24 Hours (Table) 11/26/23 11/27/23 11/27/23 Range/Units 16:30 05:32 11:44 Carbon Dioxide 21.0 L (21.6-31.8) mmol/L BUN 7.2 L (9.0-27.0) mg/dL BUN/Creatinine Ratio 10.29 L (12.00-20.00) Ratio Glucose 116 H (70-110) mg/dL POC Glucose (mg/dL) 143 H 63 L (70-110) mg/dL Total Bilirubin <0.2 L (0.3-1.2) mg/dL AST 56 H (13-35) U/L ALT 49 H (8-44) U/L Total Protein 6.0 L (6.2-8.2) g/dL Albumin 3.7 L (3.8-4.9) g/dL Microbiology - Last 24 Hours (Table) 11/20/23 00:17 Stool Culture - Final Stool Assessment and Plan (1) Leukocytosis Current Visit: Yes Status: Acute Code(s): D72.829 - ELEVATED WHITE BLOOD CELL COUNT, UNSPECIFIED SNOMED Code(s): 105907973 (2) Gastroenteritis Current Visit: Yes Status: Acute Code(s): K52.9 - NONINFECTIVE GASTROENTERITIS AND COLITIS, UNSPECIFIED SNOMED Code(s): 06537745 Plan: 1patient presented to hospital with a lower abdominal pain in this patient who did have some tenderness and significant diarrhea patient has been exposed to antibiotic concern for possible C. difficile colitis versus other infectious colitis 2-stool for C. difficile is negative, Stool culture negative as well 3- patient remains to be afebrile white count is normal stool lactoferrin was positive, however stool culture has been negative Rocephin was discontinued yesterday currently getting bowel prep for colonoscopy results will be followed Dictation was produced using [employer] dictation software. please excuse any grammatical, word or spelling errors. Time with Patient: Less than 30
--- NOTE | 2023-11-27 16:09 | P.PN ---
Subjective Progress Note Date: 11/27/23 CHIEF COMPLAINT: Abdominal pain with diarrhea HISTORY OF PRESENT ILLNESS: Patient continues to complain of diarrhea and lower abdominal pain. She denies any nausea or vomiting. Afebrile. Sodium 135 pota ssium is 4.5 creatinine 0.7. Stool for ova and parasites not collected PHYSICAL EXAM: VITAL SIGNS: Reviewed GENERAL: Well-developed in no acute distress. HEENT: No sclera icterus. Extraocular movements grossly intact. Moist buccal mucosa. Head is atraumatic, normocephalic. Hears conversational speech. No nasal drainage. NECK: Supple without lymphadenopathy. CHEST: Non-labored respirations and equal bilateral excursions. CARDIOVASCULAR: Palpable 2+ radial pulses. ABDOMEN: Soft. Nondistended. Mild tenderness to palpation of lower abdomen MUSCULOSKELETAL: No clubbing or cyanosis. NEUROLOGIC: No focal or lateralizing signs. Cranial nerves II through XII grossly intact. PSYCH: Appropriate affect. Alert and oriented to person, place and time. SKIN: Well perfused. Good skin turgor. ASSESSMENT: 1. Abdominal pain and Viral gastroenteritis 2. Intractable nausea and vomiting 3. Intractable diarrhea 4. Hypokalemia, recalcitrant. Improved 5. Hypomagnesia. Improved 6. Ileus due to gastroenteritis PLAN: -Patient scheduled for colonoscopy tomorrow with Dr. Contreras for evaluation of possible cholangitis colitis -N.p.o. after midnight -Clear liquid diet today and Nulytely bowel prep today Physician Fork Lift Mechanic note has been reviewed by physician. Signing provider agrees with the documented findings, assessment, and plan of care. Objective - Vital Signs Vital signs: Vital Signs Temp 98.3 F 11/27/23 07:12 Pulse 81 11/27/23 07:12 Resp 18 11/27/23 07:12 BP 108/74 11/27/23 07:12 Pulse Ox 96 11/27/23 07:12 FiO2 Intake & Output 11/26/23 11/27/23 11/27/23 18:59 06:59 18:59 Other: Voiding Method Toilet # Voids 1 # Bowel Movements 8 - Labs CBC & Chem 7: 11/26/23 05:36 11/27/23 05:32 Labs: Abnormal Lab Results - Last 24 Hours (Table) 11/26/23 11/27/23 11/27/23 Range/Units 16:30 05:32 11:44 Carbon Dioxide 21.0 L (21.6-31.8) mmol/L BUN 7.2 L (9.0-27.0) mg/dL BUN/Creatinine Ratio 10.29 L (12.00-20.00) Ratio Glucose 116 H (70-110) mg/dL POC Glucose (mg/dL) 143 H 63 L (70-110) mg/dL Total Bilirubin <0.2 L (0.3-1.2) mg/dL AST 56 H (13-35) U/L ALT 49 H (8-44) U/L Total Protein 6.0 L (6.2-8.2) g/dL Albumin 3.7 L (3.8-4.9) g/dL Microbiology - Last 24 Hours (Table) 11/20/23 00:17 Stool Culture - Final Stool
[2023-11-27 16:47] LABS: Glucose,Whole Blood 84 mg/dL (70-110)
[2023-11-27 20:22] LABS: Glucose,Whole Blood 64 mg/dL (70-110)
[2023-11-27] MEDS: DEXTROSE 5% IN WATER 1,000 ML IV SCH (20:41)
[2023-11-27 20:51] LABS: Glucose,Whole Blood 138 mg/dL (70-110)
[2023-11-28 02:28] LABS: Glucose,Whole Blood 84 mg/dL (70-110)
[2023-11-28 05:45] LABS: Glucose,Whole Blood 84 mg/dL (70-110)
[2023-11-28 08:45] LABS: Basophils # (A) 0.08 X 10*3/uL (0.00-0.10); Eosinophils # (A) 0.23 X 10*3/uL (0.04-0.35); Eosinophils % (A) 2.8 %; HCT 35.7 % (37.2-46.3); HGB 10.5 g/dL (12.0-15.0); Lymphocytes # (A) 4.14 X 10*3/uL (0.90-5.00); Lymphocytes % (A) 50.5 %; MCHC 29.4 g/dL (32.0-37.0); MCV 81.7 FL (80.0-97.0); Mean Platelet Volume 10.4 FL (9.5-12.2); Monocytes # (A) 0.76 X 10*3/uL (0.20-1.00); Monocytes % (A) 9.3 %; NRBC Per 100 WBC 0 X 10*3/uL (0.00-0.01); Neutrophils # (A) 2.97 X 10*3/uL (1.80-7.70); Neutrophils % (A) 36.3 %; Platelet Count 300 X 10*3/uL (140-440); RBC 4.37 X 10*6/uL (4.10-5.20); RDW 16.5 % (11.5-14.5); WBC 8.19 X 10*3/uL (4.50-10.00)
[2023-11-28 08:53] LABS: ALT 39 U/L (8-44); AST 43 U/L (13-35); Albumin 3.5 g/dL (3.8-4.9); Albumin/Globulin Ratio 1.67 Ratio (1.60-3.17); Alkaline Phosphatase 85 U/L (41-126); BUN/Creat Ratio 7.33 Ratio (12.00-20.00); Blood Urea Nitrogen 4.4 mg/dL (9.0-27.0); Calcium 8.8 mg/dL (8.7-10.3); Carbon Dioxide 23.8 mmol/L (21.6-31.8); Chloride 106 mmol/L (96-109); Globulin 2.1 g/dL (1.6-3.3); Glucose 82 mg/dL (70-110); Potassium 4.4 mmol/L (3.5-5.5); Sodium 139 mmol/L (135-145); Total Bilirubin 0.4 mg/dL (0.3-1.2); Total Protein 5.6 g/dL (6.2-8.2)
[2023-11-28] MEDS ORDERED: PROPOFOL 10 MG/ML 20 ML VIAL IV ONE (09:38)
[2023-11-28] MEDS ORDERED: LIDOCAINE 1% INJ 10MG/ML (20 ML MDV) ONE (09:38)
[2023-11-28] MEDS ORDERED: PHENYLEPHRINE-0.9% NACL SYG 1,000 MCG/10 ML SYRINGE ONE (09:38)
[2023-11-28] MEDS ORDERED: GLYCOPYRROLATE 0.2 MG/ML 2 ML VIAL ONE (09:38)
[2023-11-28] MEDS: IV FLUID CONTINUATION 1,000 ML IV ONE (09:42)
--- NOTE | 2023-11-28 10:15 | P.PCN ---
Date of Procedure: 11/28/23 Description of Procedure: PREOPERATIVE DIAGNOSIS: Colitis with chronic diarrhea Severe lower abdominal pain Abnormal stool test, stool positive lactoferrin POSTOPERATIVE DIAGNOSIS: Colitis with chronic diarrhea Microscopic colitis OPERATION: Colonoscopy to the cecum, ileocecal valve and appendiceal orifice. Colonoscopy with cold forcep biopsies for microscopic colitis and stool cultures sent for parasites SURGEON: Osiris Contreras MD. ANESTHESIA: MAC. INDICATIONS: The patient is a 53-year-old female who presents with chronic diarrhea, intractable abdominal pain and colitis. Benefits and risks were described and informed consent was obtained. DESCRIPTION OF PROCEDURE: The patient had undergone Nulytely, 2 L prep. The patient had been brought into the operating room and laid in the left lateral decubitus position. After adequate intravenous sedation, the rectum was examined with 2% lidocaine jelly. No external hemorrhoids were encountered. The rectal tone was within normal limits. No lesions were palpated in the rectal vault. An Olympus colonoscope was advanced until the cecum, ileocecal valve and appendiceal orifice were clearly viewed. The prep was fair. No large scattered diverticulosis was encountered. No colonic polyps were found. Random biopsies were obtained for microscopic focal colitis. Retroflexion of the scope demonstrated grade 1 internal hemorrhoids without active bleeding or inflammation. The colon was desufflated. The patient had tolerated the procedure well. Withdrawal time was over 6 minutes. FINDINGS: Aronchick preparation quality scale 2 (1-5) Internal hemorrhoids, grade 1 No external prolapsed hemorrhoids. No arteriovenous malformations. No adenomatous polyps. Stool cultures obtained for parasites Random biopsies for microscopic colitis obtained RECOMMENDATIONS: Lower endoscopy as needed
[2023-11-28 11:45] LABS: Glucose,Whole Blood 108 mg/dL (70-110)
--- NOTE | 2023-11-28 14:28 | P.PN ---
Subjective Progress Note Date: 11/28/23 Principal diagnosis: Reason for follow-up is diarrhea questionably C. difficile Patient is a 53-year-old female with a past medical history significant for diabetes mellitus fibromyalgia hypertension reflux pneumonia asthma recently exposed antibiotic in the form of Augmentin for a tooth infection a week into taking the antibiotic the patient did develop significant diarrhea, present to the hospital with abdominal pain and diarrhea with CT on admission did not show any acute changes. On today's visit that is Patient is status post colonoscopy completed 11/28/2023 suggestive of microscopic colitis status post biopsy. On today's visit that is 11/28/2023,the patient remains to be afebrile, patient is on room air not requiring supplemental oxygen and denies any shortness of breath no chest pain or cough.Patient complains of some nausea abdominal discomfort with any food intake and continue have diarrhea. Patient white count is 8.19, creatinine 0.67 Objective - Vital Signs Vital signs: Vital Signs Temp 98.4 F 11/28/23 13:39 Pulse 69 11/28/23 13:39 Resp 16 11/28/23 13:39 BP 99/68 11/28/23 13:39 Pulse Ox 94 L 11/28/23 13:39 FiO2 Intake & Output 11/27/23 11/28/23 11/28/23 18:59 06:59 18:59 Intake Total 300 Balance 300 Intake: IV 200 Oral 100 Other: Voiding Method Toilet # Voids 2 - Exam GENERAL DESCRIPTION: Middle-aged female lying in bed in no distress RESPIRATORY SYSTEM: Unlabored breathing , decreased breath sounds at bases HEART: S1 S2 regular rate and rhythm , ABDOMEN: Soft , mild lower abdominal tenderness EXTREMITIES: No edema feet - Labs CBC & Chem 7: 11/28/23 04:24 11/28/23 04:24 Labs: Abnormal Lab Results - Last 24 Hours (Table) 11/27/23 11/27/23 11/28/23 Range/Units 20:17 20:47 04:24 Hgb 10.5 L (12.0-15.0) g/dL Hct 35.7 L (37.2-46.3) % MCH 24.0 L (27.0-32.0) pg MCHC 29.4 L (32.0-37.0) g/dL RDW 16.5 H (11.5-14.5) % BUN (9.0-27.0) mg/dL BUN/Creatinine Ratio (12.00-20.00) Ratio POC Glucose (mg/dL) 64 L 138 H (70-110) mg/dL AST (13-35) U/L Total Protein (6.2-8.2) g/dL Albumin (3.8-4.9) g/dL 11/28/23 Range/Units 04:24 Hgb (12.0-15.0) g/dL Hct (37.2-46.3) % MCH (27.0-32.0) pg MCHC (32.0-37.0) g/dL RDW (11.5-14.5) % BUN 4.4 L (9.0-27.0) mg/dL BUN/Creatinine Ratio 7.33 L (12.00-20.00) Ratio POC Glucose (mg/dL) (70-110) mg/dL AST 43 H (13-35) U/L Total Protein 5.6 L (6.2-8.2) g/dL Albumin 3.5 L (3.8-4.9) g/dL Assessment and Plan (1) Leukocytosis Current Visit: Yes Status: Acute Code(s): D72.829 - ELEVATED WHITE BLOOD CELL COUNT, UNSPECIFIED SNOMED Code(s): 408011627 (2) Gastroenteritis Current Visit: Yes Status: Acute Code(s): K52.9 - NONINFECTIVE GASTROENTERITIS AND COLITIS, UNSPECIFIED SNOMED Code(s): 58269487 Plan: 1patient presented to hospital with a lower abdominal pain in this patient who did have some tenderness and significant diarrhea patient has been exposed to antibiotic concern for possible C. difficile colitis versus other infectious colitis 2-stool for C. difficile is negative, Stool culture negative as well 3- patient remains to be afebrile white count is normal stool lactoferrin was positive, 4-colonoscopy suggestive of microscopic colitis status post biopsy will benefit from steroids Dictation was produced using [employer] dictation software. please excuse any grammatical, word or spelling errors. Time with Patient: Less than 30
[2023-11-28 16:59] LABS: Glucose,Whole Blood 165 mg/dL (70-110)
--- NOTE | 2023-11-28 17:15 | P.PN ---
Subjective Progress Note Date: 11/28/23 this is a 53-year-old female patient of Dr. Knight who initially presented to ER with concerns of abdominal pain with nausea vomiting and diarrhea along with electrolyte imbalance. According to records patient originally presented TR on 11/11/2023 with complaints of nausea vomiting and diarrhea that has been going on for the past 2 weeks. Patient was treated with oral vancomycin for C. diff was discharged home. Patient returned with lack of improvement of symptoms. Patient has a past medical history of diabetes mellitus, asthma, hyperlipidemia, fibromyalgia. CT of abdomen and pelvis was negative for acute process patient was maintained on oral vancomycin. Dr. Nails group was covering we are resuming care patient on 11/26/2023 patient is alert and oriented 3. Patient still complaining about significant diarrhea abdomen is soft but tender to palpation. Infectious disease and surgical services are following. according to records patient'sWilliam with increased and patient started on Questran. Surgical services are following with possible thought of colonoscopy. Patient remains on Flagyl and Rocephin.patient denies chest pain. Patient denies nausea or vomiting. Patient denies any urinary burning or frequency. Current vital signs temp 98.2, heart rate 70, respiratory rate 16, blood pressure 127/85 pulse ox 98% on room air On 11/27/2023 patient is alert and oriented 3 still complaining of significant diarrhea. Plan for colonoscopy tomorrow for for 11/28/2023. current vital signs temp 98.3, heart rate 81, respiratory rate 18, blood pressure 108/74 with pulse ox 96%. Patient remains onFlagyl. Surgical services and infectious disease services are following on 11/28/2023 patient was seen and examined on the medical floor she is alert and oriented 3 in no apparent distress she is complaining of abdominal pain and cramping she is also complaining of vaginal itching today otherwise she denies any complaints there is no fever or chills no headache dizziness no chest pain no shortness of breath no cough no nausea or vomiting no diarrhea and no urinary symptoms. Patient underwent colonoscopy today, results reviewed with patient, will follow in a.m.. Objective - Vital Signs Vital signs: Vital Signs Temp 97.8 F 11/28/23 06:45 Pulse 67 11/28/23 06:45 Resp 16 11/28/23 06:45 BP 92/56 11/28/23 06:45 Pulse Ox 93 L 11/28/23 06:45 FiO2 Intake & Output 11/27/23 11/28/23 11/28/23 18:59 06:59 18:59 Intake Total 200 Balance 200 Intake: IV 200 Other: Voiding Method Toilet # Voids 2 - Exam Head normocephalic Neck supple Lungs clear to auscultation bilaterally no wheezing or crackles Heart regular rate and rhythm S1-S2, no rub or gallop Abdomen is soft nontender nondistended positive bowel sounds no hepatosplenomegaly Extremities no edema Neuro alert and orientated to 3 - Labs CBC & Chem 7: 11/28/23 04:24 11/28/23 04:24 Labs: Abnormal Lab Results - Last 24 Hours (Table) 11/27/23 11/27/23 11/27/23 Range/Units 11:44 20:17 20:47 Hgb (12.0-15.0) g/dL Hct (37.2-46.3) % MCH (27.0-32.0) pg MCHC (32.0-37.0) g/dL RDW (11.5-14.5) % BUN (9.0-27.0) mg/dL BUN/Creatinine Ratio (12.00-20.00) Ratio POC Glucose (mg/dL) 63 L 64 L 138 H (70-110) mg/dL AST (13-35) U/L Total Protein (6.2-8.2) g/dL Albumin (3.8-4.9) g/dL 11/28/23 11/28/23 Range/Units 04:24 04:24 Hgb 10.5 L (12.0-15.0) g/dL Hct 35.7 L (37.2-46.3) % MCH 24.0 L (27.0-32.0) pg MCHC 29.4 L (32.0-37.0) g/dL RDW 16.5 H (11.5-14.5) % BUN 4.4 L (9.0-27.0) mg/dL BUN/Creatinine Ratio 7.33 L (12.00-20.00) Ratio POC Glucose (mg/dL) (70-110) mg/dL AST 43 H (13-35) U/L Total Protein 5.6 L (6.2-8.2) g/dL Albumin 3.5 L (3.8-4.9) g/dL Assessment and Plan Assessment: 1. persistent abdominal pain with nausea and diarrhea. CT of abdomen does not reveal any acute abnormality in the abdomen and pelvis. Patient was started on Flagyl and Rocephin. Stool positive for lactoferrin. patient maintained on Flagyl and Rocephin. Infectious disease and surgical services are following 2. Electively balance 3. Elevated liver enzymes 4. History of fibromyalgia 5. Diabetes mellitus type 2 6. History of hyperlipidemia 7. History of anxiety and depression infectious disease and surgical services are following Patient maintained on IV antibiotics plans for colonoscopy on 11/28/2023 Repeat labs in a.m.
[2023-11-28 20:14] LABS: Glucose,Whole Blood 183 mg/dL (70-110)
[2023-11-29 05:59] LABS: Glucose,Whole Blood 96 mg/dL (70-110)
[2023-11-29 11:15] LABS: Glucose,Whole Blood 96 mg/dL (70-110)
[2023-11-29] MEDS: FLUCONAZOLE 100 MG TAB PO ONE (13:21)
[2023-11-29 13:49] LABS: Cryptosporidium Antigen Negative (Negative)
--- NOTE | 2023-11-29 16:02 | P.PN ---
Subjective Progress Note Date: 11/29/23 CHIEF COMPLAINT: Abdominal pain with diarrhea HISTORY OF PRESENT ILLNESS: Patient continues to complain of diarrhea and lower abdominal pain. She denies any nausea or vomiting. She is tolerating diet. S he is status post colonoscopy with random biopsies for microscopic colitis obtained. Stool cultures obtained for ova and parasites. Noted internal hemorrhoids. PHYSICAL EXAM: VITAL SIGNS: Reviewed GENERAL: Well-developed in no acute distress. HEENT: No sclera icterus. Extraocular movements grossly intact. Moist buccal mucosa. Head is atraumatic, normocephalic. Hears conversational speech. No nasal drainage. NECK: Supple without lymphadenopathy. CHEST: Non-labored respirations and equal bilateral excursions. CARDIOVASCULAR: Palpable 2+ radial pulses. ABDOMEN: Soft. Nondistended. Mild tenderness to palpation of lower abdomen MUSCULOSKELETAL: No clubbing or cyanosis. NEUROLOGIC: No focal or lateralizing signs. Cranial nerves II through XII grossly intact. PSYCH: Appropriate affect. Alert and oriented to person, place and time. SKIN: Well perfused. Good skin turgor. ASSESSMENT: 1. Abdominal pain 2. Possible viral gastroenteritis 3. Possible cholangitis colitis. Status post colonoscopy with biopsies 4. Intractable diarrhea 5. Hypokalemia, recalcitrant. Improved 6. Hypomagnesia. Improved 7. Ileus due to gastroenteritis PLAN: -Increase Bentyl to 4 times a day -Follow-up on stool culture and ova and parasite culture from colonoscopy -Continue low fiber diet -Continue supportive care Physician Finisher Map And Chart note has been reviewed by physician. Signing provider agrees with the documented findings, assessment, and plan of care. Objective - Vital Signs Vital signs: Vital Signs Temp 98.5 F 11/29/23 12:56 Pulse 66 11/29/23 12:56 Resp 20 11/29/23 12:56 BP 96/65 11/29/23 12:56 Pulse Ox 94 L 11/29/23 12:56 FiO2 Intake & Output 11/28/23 11/29/23 11/29/23 18:59 06:59 18:59 Intake Total 300 Balance 300 Intake: IV 200 Oral 100 Other: Voiding Method Toilet # Voids 3 5 - Labs CBC & Chem 7: 11/28/23 04:24 11/28/23 04:24 Labs: Abnormal Lab Results - Last 24 Hours (Table) 11/28/23 11/28/23 Range/Units 16:57 20:12 POC Glucose (mg/dL) 165 H 183 H (70-110) mg/dL
[2023-11-29 16:21] LABS: Glucose,Whole Blood 94 mg/dL (70-110)
[2023-11-29 20:44] LABS: Glucose,Whole Blood 103 mg/dL (70-110)
[2023-11-29] MEDS: DICYCLOMINE 10 MG CAP PO SCH (21:47)
[2023-11-29 22:32] LABS: Appearance,Urine Clear (Clear); Bilirubin,Urine Negative (Negative); Blood,Urine Negative (Negative); Color,Urine Colorless; Glucose,Urine (UA) Negative (Negative); Ketones,Urine Negative (Negative); Leukocyte Esterase,Urine Negative (Negative); Nitrite,Urine Negative (Negative); PH, Urine 5.5 (5.0-8.0); Protein,Urine Negative (Negative); Specific Gravity,Urine 1.007 (1.001-1.035); Urobilinogen,Urine <2.0 mg/dL (<2.0)
[2023-11-30 05:56] LABS: Glucose,Whole Blood 98 mg/dL (70-110)
--- NOTE | 2023-11-30 08:31 | P.PN ---
Subjective Progress Note Date: 11/29/23 Principal diagnosis: Reason for follow-up is diarrhea questionably C. difficile Patient is a 53-year-old female with a past medical history significant for diabetes mellitus fibromyalgia hypertension reflux pneumonia asthma recently exposed antibiotic in the form of Augmentin for a tooth infection a week into taking the antibiotic the patient did develop significant diarrhea, present to the hospital with abdominal pain and diarrhea with CT on admission did not show any acute changes. On today's visit that is Patient is status post colonoscopy completed 11/28/2023 suggestive of microscopic colitis status post biopsy. On today's visit that is 11/29/2023, the patient continues to be afebrile, the patient is on room air and breathing comfortably, the Pt denies having any chest pain or cough, the patient still complaining of lower abdominal discomfort and diarrhea no blood or mucus in the stool did have some nausea but no vomiting also complaining of vaginal itching and irritation. No blood draw today white count was normal as of yesterday Objective - Vital Signs Vital signs: Vital Signs Temp 98.3 F 11/29/23 07:02 Pulse 64 11/29/23 07:02 Resp 20 11/29/23 07:02 BP 94/61 11/29/23 07:02 Pulse Ox 95 11/29/23 07:02 FiO2 Intake & Output 11/28/23 11/29/23 11/29/23 18:59 06:59 18:59 Intake Total 300 Balance 300 Intake: IV 200 Oral 100 Other: Voiding Method Toilet # Voids 3 5 - Exam GENERAL DESCRIPTION: Middle-aged female lying in bed in no distress RESPIRATORY SYSTEM: Unlabored breathing , decreased breath sounds at bases HEART: S1 S2 regular rate and rhythm , ABDOMEN: Soft , mild lower abdominal tenderness EXTREMITIES: No edema feet - Labs CBC & Chem 7: 11/28/23 04:24 11/28/23 04:24 Labs: Abnormal Lab Results - Last 24 Hours (Table) 11/28/23 11/28/23 Range/Units 16:57 20:12 POC Glucose (mg/dL) 165 H 183 H (70-110) mg/dL Assessment and Plan (1) Leukocytosis Current Visit: Yes Status: Acute Code(s): D72.829 - ELEVATED WHITE BLOOD CELL COUNT, UNSPECIFIED SNOMED Code(s): 647702065 (2) Gastroenteritis Current Visit: Yes Status: Acute Code(s): K52.9 - NONINFECTIVE GASTROENTERITIS AND COLITIS, UNSPECIFIED SNOMED Code(s): 07711414 Plan: 1patient presented to hospital with a lower abdominal pain in this patient who did have some tenderness and significant diarrhea patient has been exposed to antibiotic concern for possible C. difficile colitis versus other infectious colitis 2-stool for C. difficile is negative, Stool culture negative as well 3- patient remains to be afebrile white count is normal stool lactoferrin was positive, colonoscopy suggestive of microscopic colitis status post biopsy will benefit from steroids 4-patient with vaginal itching and irritation suggestive vaginal candidiasis we will give her a dose of Diflucan UA has been negative Dictation was produced using [employer] dictation software. please excuse any grammatical, word or spelling errors. Time with Patient: Less than 30
[2023-11-30 08:55] LABS: BUN/Creat Ratio 6.12 Ratio (12.00-20.00); Basophils # (A) 0.09 X 10*3/uL (0.00-0.10); Blood Urea Nitrogen 4.9 mg/dL (9.0-27.0); Eosinophils # (A) 0.25 X 10*3/uL (0.04-0.35); Eosinophils % (A) 2.9 %; Glucose 99 mg/dL (70-110); HGB 11.3 g/dL (12.0-15.0); Lymphocytes % (A) 56.2 %; MCH 24.1 pg (27.0-32.0); MCHC 29.7 g/dL (32.0-37.0); MCV 81.2 FL (80.0-97.0); Mean Platelet Volume 10.6 FL (9.5-12.2); Monocytes # (A) 0.82 X 10*3/uL (0.20-1.00); Monocytes % (A) 9.4 %; NRBC Per 100 WBC 0 X 10*3/uL (0.00-0.01); Neutrophils # (A) 2.64 X 10*3/uL (1.80-7.70); Neutrophils % (A) 30.3 %; Platelet Count 340 X 10*3/uL (140-440); RBC 4.68 X 10*6/uL (4.10-5.20); RDW 16.9 % (11.5-14.5); WBC 8.72 X 10*3/uL (4.50-10.00)
[2023-11-30 08:56] LABS: ALT 31 U/L (8-44); AST 33 U/L (13-35); Albumin 3.7 g/dL (3.8-4.9); Albumin/Globulin Ratio 1.68 Ratio (1.60-3.17); Alkaline Phosphatase 85 U/L (41-126); Calcium 8.8 mg/dL (8.7-10.3); Carbon Dioxide 23.2 mmol/L (21.6-31.8); Chloride 106 mmol/L (96-109); Globulin 2.2 g/dL (1.6-3.3); Potassium 4.5 mmol/L (3.5-5.5); Sodium 140 mmol/L (135-145); Total Bilirubin <0.2 mg/dL (0.3-1.2); Total Protein 5.9 g/dL (6.2-8.2)
--- NOTE | 2023-11-30 09:07 | P.PN ---
Subjective Progress Note Date: 11/30/23 this is a 53-year-old female patient of Dr. Knight who initially presented to ER with concerns of abdominal pain with nausea vomiting and diarrhea along with electrolyte imbalance. According to records patient originally presented TR on 11/11/2023 with complaints of nausea vomiting and diarrhea that has been going on for the past 2 weeks. Patient was treated with oral vancomycin for C. diff was discharged home. Patient returned with lack of improvement of symptoms. Patient has a past medical history of diabetes mellitus, asthma, hyperlipidemia, fibromyalgia. CT of abdomen and pelvis was negative for acute process patient was maintained on oral vancomycin. Dr. Nails group was covering we are resuming care patient on 11/26/2023 patient is alert and oriented 3. Patient still complaining about significant diarrhea abdomen is soft but tender to palpation. Infectious disease and surgical services are following. according to records patient'sWilliam with increased and patient started on Questran. Surgical services are following with possible thought of colonoscopy. Patient remains on Flagyl and Rocephin.patient denies chest pain. Patient denies nausea or vomiting. Patient denies any urinary burning or frequency. Current vital signs temp 98.2, heart rate 70, respiratory rate 16, blood pressure 127/85 pulse ox 98% on room air On 11/27/2023 patient is alert and oriented 3 still complaining of significant diarrhea. Plan for colonoscopy tomorrow for for 11/28/2023. current vital signs temp 98.3, heart rate 81, respiratory rate 18, blood pressure 108/74 with pulse ox 96%. Patient remains onFlagyl. Surgical services and infectious disease services are following on 11/28/2023 patient was seen and examined on the medical floor she is alert and oriented 3 in no apparent distress she is complaining of abdominal pain and cramping she is also complaining of vaginal itching today otherwise she denies any complaints there is no fever or chills no headache dizziness no chest pain no shortness of breath no cough no nausea or vomiting no diarrhea and no urinary symptoms. Patient underwent colonoscopy today, results reviewed with patient, will follow in a.m.. on 11/29/2023 patient was seen and examined on the medical floor she is alert and oriented in no apparent distress she is still complaining of abdominal pain and requesting more pain medications, at this time labs and colonoscopy report reviewed awaiting furtherculture results and recommendation from surgery and infectious disease, Will continue was current management On 11/30/2023 patient's alert and oriented 3. Bentyl as been increased per surgical services . Infectious disease and surgical services are following. Current vital signs temp 97.5, rate 82, respiratory rate 17, blood pressure 100/69 with pulse ox 95% Dr. Nails's group will be covering for 12/01/2023 to 12/02/2023 Objective - Vital Signs Vital signs: Vital Signs Temp 97.5 F L 11/30/23 07:14 Pulse 82 11/30/23 07:14 Resp 17 11/30/23 07:14 BP 100/69 11/30/23 07:14 Pulse Ox 98 11/30/23 08:16 FiO2 Intake & Output 11/29/23 11/30/23 11/30/23 18:59 06:59 18:59 Other: # Voids 5 2 # Bowel Movements 11 1 - Exam Head normocephalic Neck supple Lungs clear to auscultation bilaterally no wheezing or crackles Heart regular rate and rhythm S1-S2, no rub or gallop Abdomen is soft nontender nondistended positive bowel sounds no hepatosplenomegaly Extremities no edema Neuro alert and orientated to 3 - Labs CBC & Chem 7: 11/30/23 05:45 11/30/23 05:45 Labs: Abnormal Lab Results - Last 24 Hours (Table) 11/30/23 11/30/23 Range/Units 05:45 05:45 Hgb 11.3 L (12.0-15.0) g/dL MCH 24.1 L (27.0-32.0) pg MCHC 29.7 L (32.0-37.0) g/dL RDW 16.9 H (11.5-14.5) % BUN 4.9 L (9.0-27.0) mg/dL BUN/Creatinine Ratio 6.12 L (12.00-20.00) Ratio Total Bilirubin <0.2 L (0.3-1.2) mg/dL Total Protein 5.9 L (6.2-8.2) g/dL Albumin 3.7 L (3.8-4.9) g/dL Assessment and Plan Assessment: 1. persistent abdominal pain with nausea and diarrhea. CT of abdomen does not reveal any acute abnormality in the abdomen and pelvis. Patient was started on Flagyl and Rocephin. Stool positive for lactoferrin. patient maintained on Flagyl and Rocephin. Infectious disease and surgical services are following 2. Electively balance 3. Elevated liver enzymes 4. History of fibromyalgia 5. Diabetes mellitus type 2 6. History of hyperlipidemia 7. History of anxiety and depression infectious disease and surgical services are following status post colonoscopyshowing possible cholangitis colitis. Repeat labs in a.m.
[2023-11-30] MEDS ORDERED: DEXTROSE 50% SYRINGE 50 ML IVP PRN ×4 (09:24→13:49)
[2023-11-30 11:32] LABS: Glucose,Whole Blood 113 mg/dL (70-110)
[2023-11-30] MEDS: INSULIN ASPART (NovoLOG) 100 UNIT/ML VIAL SQ SCH ×2 (12:36→13:54)
[2023-11-30] MEDS: LOPERAMIDE 2 MG CAP PO SCH (12:42)
--- NOTE | 2023-11-30 13:18 | P.PN ---
Subjective Progress Note Date: 11/30/23 Principal diagnosis: Reason for follow-up is diarrhea questionably C. difficile Patient is a 53-year-old female with a past medical history significant for diabetes mellitus fibromyalgia hypertension reflux pneumonia asthma recently exposed antibiotic in the form of Augmentin for a tooth infection a week into taking the antibiotic the patient did develop significant diarrhea, present to the hospital with abdominal pain and diarrhea with CT on admission did not show any acute changes. On today's visit that is Patient is status post colonoscopy completed 11/28/2023 suggestive of microscopic colitis status post biopsy. On today's visit that is 11/30/2023, Patient is afebrile patient is currently on room air and denies having any shortness of breath, the patient denies any chest pain or cough, the patient denies any nausea vomiting however still complaining of lower abdominal discomfort and did have multiple loose stool denies any blood or mucus in the stool. Patient white count is 8.72, creatinine 0.8 urine negative Objective - Vital Signs Vital signs: Vital Signs Temp 97.5 F L 11/30/23 07:14 Pulse 82 11/30/23 07:14 Resp 17 11/30/23 07:14 BP 100/69 11/30/23 07:14 Pulse Ox 98 11/30/23 08:16 FiO2 Intake & Output 11/29/23 11/30/23 11/30/23 18:59 06:59 18:59 Other: # Voids 5 2 # Bowel Movements 11 1 - Exam GENERAL DESCRIPTION: Middle-aged female lying in bed in no distress RESPIRATORY SYSTEM: Unlabored breathing , decreased breath sounds at bases HEART: S1 S2 regular rate and rhythm , ABDOMEN: Soft , mild lower abdominal tenderness EXTREMITIES: No edema feet - Labs CBC & Chem 7: 11/30/23 05:45 11/30/23 05:45 Labs: Abnormal Lab Results - Last 24 Hours (Table) 11/30/23 11/30/23 11/30/23 Range/Units 05:45 05:45 11:31 Hgb 11.3 L (12.0-15.0) g/dL MCH 24.1 L (27.0-32.0) pg MCHC 29.7 L (32.0-37.0) g/dL RDW 16.9 H (11.5-14.5) % BUN 4.9 L (9.0-27.0) mg/dL BUN/Creatinine Ratio 6.12 L (12.00-20.00) Ratio POC Glucose (mg/dL) 113 H (70-110) mg/dL Total Bilirubin <0.2 L (0.3-1.2) mg/dL Total Protein 5.9 L (6.2-8.2) g/dL Albumin 3.7 L (3.8-4.9) g/dL Assessment and Plan (1) Leukocytosis Current Visit: Yes Status: Acute Code(s): D72.829 - ELEVATED WHITE BLOOD CELL COUNT, UNSPECIFIED SNOMED Code(s): 210085357 (2) Gastroenteritis Current Visit: Yes Status: Acute Code(s): K52.9 - NONINFECTIVE GASTROENTERITIS AND COLITIS, UNSPECIFIED SNOMED Code(s): 32634976 Plan: 1patient presented to hospital with a lower abdominal pain in this patient who did have some tenderness and significant diarrhea patient has been exposed to antibiotic concern for possible C. difficile colitis versus other infectious colitis 2-stool for C. difficile is negative, Stool culture negative as well 3- patient remains to be afebrile white count is normal stool lactoferrin was p ositive, colonoscopy suggestive of microscopic colitis status post biopsy however biopsy did not show any evidence of microscopic colitis we will add bismuth subsalicylate and see response to it 4-patient with vaginal itching and irritation suggestive vaginal candidiasis has received a dose of Diflucan UA has been negative Dictation was produced using [employer] dictation software. please excuse any g rammatical, word or spelling errors. Time with Patient: Less than 30
[2023-11-30] MEDS: LACTATED RINGERS 1,000 ML IV SCH (13:54)
[2023-11-30] MEDS ORDERED: methylPREDNISolone SOD SUCCI 40 MG/ML 1 ML VIAL IV SCH ×3 (16:00)
--- NOTE | 2023-11-30 16:02 | P.PN ---
Subjective Progress Note Date: 11/30/23 CHIEF COMPLAINT: Abdominal pain with diarrhea HISTORY OF PRESENT ILLNESS: Patient continues to complain of diarrhea and lower abdominal pain. Patient reporting 12 episodes of diarrhea. Per nursing staff this has been witnessed. Denies any blood in the stools. Patient reports after eating she has diarrhea. She denies any nausea or vomiting. She is tolerating diet. She is status post colonoscopy with random biopsies were obtained. Pathology results are negative. Stool cultures obtained for ova and parasites pending. PHYSICAL EXAM: VITAL SIGNS: Reviewed GENERAL: Well-developed in no acute distress. HEENT: No sclera icterus. Extraocular movements grossly intact. Moist buccal mucosa. Head is atraumatic, normocephalic. Hears conversational speech. No nasal drainage. NECK: Supple without lymphadenopathy. CHEST: Non-labored respirations and equal bilateral excursions. CARDIOVASCULAR: Palpable 2+ radial pulses. ABDOMEN: Soft. Nondistended. Mild tenderness to palpation of lower abdomen MUSCULOSKELETAL: No clubbing or cyanosis. NEUROLOGIC: No focal or lateralizing signs. Cranial nerves II through XII grossly intact. PSYCH: Appropriate affect. Alert and oriented to person, place and time. SKIN: Well perfused. Good skin turgor. ASSESSMENT: 1. Abdominal pain and diarrhea. Pathology from colonoscopy was negative 2. Possible viral gastroenteritis 3. Hypokalemia, recalcitrant. Improved 4. Hypomagnesia. Improved 5. Ileus due to gastroenteritis 6. History of chronic diarrhea PLAN: -Pathology from colonoscopy negative. No steroids recommended from surgical standpoint -Change Imodium to 4 times a day scheduled -Continue Bentyl -Follow-up on stool culture and ova and parasite culture from colonoscopy -Continue low fiber diet -Continue supportive care Physician Physical Science Technician note has been reviewed by physician. Signing provider agrees with the documented findings, assessment, and plan of care. Please see additional documentation below CHIEF COMPLAINT: Abdominal pain with diarrhea HISTORY OF PRESENT ILLNESS: Bella Su is a 53-year-old female who presents diarrhea and chronic abdominal pain. She completed a colonoscopy. Colonoscopy results with pathology are negative for collagenous colitis. She should reports at least 8-10 bowel movements daily. Stool cultures are still pending on repeat. REVIEW OF ORGAN SYSTEMS: No fevers or chills. No shortness of breath. PHYSICAL EXAM: VITAL SIGNS: Reviewed. GENERAL: Well-developed in no acute distress. HEENT: No scleral icterus. Extraocular movements grossly intact. Hears conversational speech. No nasal drainage. CHEST: Nonlabored respirations with equal bilateral excursions. CARDIOVASCULAR: Regular rate and regular rhythm. Distal 2+ pulses. ABDOMEN: No peritonitis. MUSCULOSKELETAL: No clubbing, cyanosis. NEURO: No focal or lateralizing signs. Cranial nerves 2 through 12 grossly within normal limits. PSYCH: Appropriate affect. Alert and oriented to person, place and time. SKIN: Good skin turgor. Well perfused. LABS: Reviewed. WBC normal. PATHOLOGY: Collagenous colitis. ASSESSMENT: 1. Generalized abdominal pain with chronic diarrhea of uncertain etiology 2. Hypokalemia 3. Hypomagnesia 4. Hyperlipidemia 5. Hypertensive heart disease 6. Osteoarthritis bilateral knees 7. Osteoarthritis bilateral hips 8. Osteoarthritis lower back 9. Pneumonia 10. Chronic iron deficiency anemia 11. Diabetes type 2 insulin-dependent, uncontrolled 12. Diabetic neuropathy 13. Pancreatitis, history 14. History of cervical cancer 15. History of C. diff 16. Fibromyalgia 17. Gastroesophageal reflux disease 18. Transient ischemic attack 19. Depressive disorder 20. Generalized anxiety disorder 21. Congestive heart failure 22. Vitamin D deficiency 23. Hypothyroidism 24. Anemia 25. Colon cancer, family 26. Morbid obesity due to excess calories 27. Body mass index of 52.5 to 32.9 28. Asthma PLAN: 1. Multiple diagnostics assessments including colonoscopy and stool cultures were obtained. At this time, recommend symptomatic management with adjusting Imodium, continue with Bentyl. 2. Monitor and correct electrolyte dyscrasias due to chronic diarrhea. 3. Discharge when medically stable. Objective - Vital Signs Vital signs: Vital Signs Temp 97.7 F 11/30/23 15:25 Pulse 71 11/30/23 15:25 Resp 16 11/30/23 15:25 BP 110/75 11/30/23 15:25 Pulse Ox 96 11/30/23 15:25 FiO2 Intake & Output 11/29/23 11/30/23 11/30/23 18:59 06:59 18:59 Other: # Voids 5 2 # Bowel Movements 11 1 - Labs CBC & Chem 7: 12/01/23 06:36 12/01/23 06:36 Labs: Abnormal Lab Results - Last 24 Hours (Table) 11/30/23 11/30/23 11/30/23 Range/Units 05:45 05:45 11:31 Hgb 11.3 L (12.0-15.0) g/dL MCH 24.1 L (27.0-32.0) pg MCHC 29.7 L (32.0-37.0) g/dL RDW 16.9 H (11.5-14.5) % BUN 4.9 L (9.0-27.0) mg/dL BUN/Creatinine Ratio 6.12 L (12.00-20.00) Ratio POC Glucose (mg/dL) 113 H (70-110) mg/dL Total Bilirubin <0.2 L (0.3-1.2) mg/dL Total Protein 5.9 L (6.2-8.2) g/dL Albumin 3.7 L (3.8-4.9) g/dL
[2023-11-30 16:22] LABS: Glucose,Whole Blood 95 mg/dL (70-110)
[2023-11-30] MEDS: BISMUTH SUBSALICYLATE 4,192 MG/240 ML BOTTLE PO SCH (17:05)
[2023-11-30 19:58] LABS: Glucose,Whole Blood 146 mg/dL (70-110)
[2023-12-01 05:50] LABS: Glucose,Whole Blood 110 mg/dL (70-110)
[2023-12-01 09:29] LABS: Eosinophils # (A) 0.24 X 10*3/uL (0.04-0.35); Eosinophils % (A) 2.4 %; HCT 36.1 % (37.2-46.3); HGB 10.8 g/dL (12.0-15.0); Lymphocytes # (A) 3.75 X 10*3/uL (0.90-5.00); Lymphocytes % (A) 38.3 %; MCH 24.7 pg (27.0-32.0); MCHC 29.9 g/dL (32.0-37.0); MCV 82.4 FL (80.0-97.0); Mean Platelet Volume 10.7 FL (9.5-12.2); Monocytes # (A) 0.87 X 10*3/uL (0.20-1.00); Monocytes % (A) 8.9 %; NRBC Per 100 WBC 0 X 10*3/uL (0.00-0.01); Neutrophils # (A) 4.83 X 10*3/uL (1.80-7.70); Neutrophils % (A) 49.3 %; Platelet Count 316 X 10*3/uL (140-440); RBC 4.38 X 10*6/uL (4.10-5.20); RDW 16.5 % (11.5-14.5)
[2023-12-01 10:08] LABS: BUN/Creat Ratio 7.83 Ratio (12.00-20.00); Blood Urea Nitrogen 4.7 mg/dL (9.0-27.0); Carbon Dioxide 24.4 mmol/L (21.6-31.8); Chloride 104 mmol/L (96-109); Glucose 117 mg/dL (70-110); Potassium 4.4 mmol/L (3.5-5.5); Sodium 140 mmol/L (135-145)
[2023-12-01 10:09] LABS: ALT 31 U/L (8-44); AST 29 U/L (13-35); Albumin 3.7 g/dL (3.8-4.9); Albumin/Globulin Ratio 1.54 Ratio (1.60-3.17); Alkaline Phosphatase 83 U/L (41-126); Calcium 8.9 mg/dL (8.7-10.3); Globulin 2.4 g/dL (1.6-3.3); Total Bilirubin <0.2 mg/dL (0.3-1.2); Total Protein 6.1 g/dL (6.2-8.2)
[2023-12-01 11:21] LABS: Glucose,Whole Blood 111 mg/dL (70-110)
[2023-12-01 16:31] LABS: Glucose,Whole Blood 126 mg/dL (70-110)
--- NOTE | 2023-12-01 17:41 | P.PN ---
Subjective Progress Note Date: 12/01/23 53-year-old female, history of diabetes mellitus, asthma, hyperlipidemia, fibromyalgia, presents to the ER for evaluation today. Patient notes today for evaluation regards to significant abdominal wall pain abnormal electrolytes nausea vomiting diarrhea persistent diarrhea with now decreasing any bowel m ovements at all. Decreased appetite with significant weight loss --Patient was seen in the ED on 11/11/2023 with similar complaints of nausea vomiting diarrhea and abdominal pain that has been going on for past 2 weeks; patient was empirically started on oral vancomycin for C. difficile colitis and was discharged home; symptoms worsened and patient presented back to ED for further evaluation Blood work completed in ED reveals a WBC of 12.5 which is improved from 14.4 on previous admission; hemoglobin of 13.9, platelet 433, sodium 135, potassium 3.0, BUNs/creatinine of 12/0.87, blood glucose of 189, lactic acid level of 1.6 magnesium 1.0, phosphorus 5.5, AST/ALT elevated at 60/48, amylase lipase are negative, UA is positive for large leukocyte esterase, WBCs and bacteria --Patient has been evaluated by general surgery and recommending EGD and colonoscopy -- Given persistent diarrhea patient is recommended to continue with oral vancomycin -Stool studies have been sent including ova, parasites, stool WBCs and culture and C. difficile toxin 12/01/2023 Patient is afebrile patient is currently on room air and denies having any shortness of breath, the patient denies any chest pain or cough, the patient denies any nausea vomiting however still complaining of lower abdominal discomfort and did have multiple loose stool denies any blood or mucus in the stool. Patient reports 17 loose bowel movements through the night and 6 loose bowel movements since 7 AM Patient white count is 8.72, creatinine 0.8 urine negative Objective - Vital Signs Vital signs: Vital Signs Temp 97.8 F 12/01/23 07:03 Pulse 88 12/01/23 07:03 Resp 16 12/01/23 09:10 BP 93/61 12/01/23 07:03 Pulse Ox 95 12/01/23 07:03 FiO2 Intake & Output 11/30/23 12/01/23 12/01/23 18:59 06:59 18:59 Other: Voiding Method Toilet Toilet # Voids 10 3 # Bowel Movements 1 2 - Exam General appearance: alert, in no apparent distress Eye exam: Present: normal appearance Neck exam: Present: normal inspection Respiratory exam: Present: normal lung sounds bilaterally Cardiovascular Exam: Present: normal rhythm GI/Abdominal exam: Present: soft (Diffuse abdominal tenderness to palpation worse in the lower abdomen. No rebound guarding or rigidity. Bowel sounds present.) Neurological exam: Present: alert, oriented X3 Skin exam: Present: warm, dry - Labs CBC & Chem 7: 12/01/23 06:36 12/01/23 06:36 Labs: Abnormal Lab Results - Last 24 Hours (Table) 11/30/23 11/30/23 12/01/23 Range/Units 05:45 19:56 06:36 Hgb (12.0-15.0) g/dL Hct (37.2-46.3) % MCH (27.0-32.0) pg MCHC (32.0-37.0) g/dL RDW (11.5-14.5) % BUN (9.0-27.0) mg/dL BUN/Creatinine Ratio (12.00-20.00) Ratio Glucose (70-110) mg/dL POC Glucose (mg/dL) 146 H (70-110) mg/dL Hemoglobin A1c 8.1 H 8.0 H (<=6.0) % Total Bilirubin (0.3-1.2) mg/dL Total Protein (6.2-8.2) g/dL Albumin (3.8-4.9) g/dL Albumin/Globulin Ratio (1.60-3.17) Ratio 12/01/23 12/01/23 12/01/23 Range/Units 06:36 06:36 11:20 Hgb 10.8 L (12.0-15.0) g/dL Hct 36.1 L (37.2-46.3) % MCH 24.7 L (27.0-32.0) pg MCHC 29.9 L (32.0-37.0) g/dL RDW 16.5 H (11.5-14.5) % BUN 4.7 L (9.0-27.0) mg/dL BUN/Creatinine Ratio 7.83 L (12.00-20.00) Ratio Glucose 117 H (70-110) mg/dL POC Glucose (mg/dL) 111 H (70-110) mg/dL Hemoglobin A1c (<=6.0) % Total Bilirubin <0.2 L (0.3-1.2) mg/dL Total Protein 6.1 L (6.2-8.2) g/dL Albumin 3.7 L (3.8-4.9) g/dL Albumin/Globulin Ratio 1.54 L (1.60-3.17) Ratio Microbiology - Last 24 Hours (Table) 11/28/23 09:58 Stool Culture - Preliminary Stool Assessment and Plan Assessment: 1. Persistent abdominal pain with nausea, vomiting and diarrhea --Patient had CT of the abdomen completed in ED which does not reveal any acute abnormality in abdomen or pelvis -Blood work completed reveals negative amylase lipase; mild transaminitis -Patient is admitted for further evaluation and surgical consult and evaluation 2. Electrolyte imbalance; marked hypokalemia and hypomagnesemia; patient is supplemented in ED; will monitor electrolytes closely and supplement as needed 3. Transaminitis; AST/ALT elevated at 44/48 with slight upward trend of AST at 60; will monitor liver enzymes closely; will order right upper quadrant ultrasound if liver enzymes continue to trend up along with acute hepatitis profile 4. Hyperglycemia without acidosis/diabetes mellitus with long-term insulin use; patient takes Levemir 30 units subcu daily; monitor Accu-Cheks before every meal and at bedtime with insulin sliding scale 5. Persistent diarrhea; presumed C. difficile colitis; patient has not been able to give any stool specimen yet; remains on oral vancomycin 6. Neuropathy/fibromyalgia; patient takes Neurontin 300 mg every morning and 600 mg nightly 7. Hyperlipidemia; Lipitor 40 mg p.o. nightly; will discontinue statins if liver enzymes continue to trend up 8. Attention; propranolol 80 mg daily 9. Anxiety/depression; Remeron 15 mg p.o. nightly, Lexapro 20 mg daily, BuSpar 15 mg twice daily DVT prophylaxis; SCDs CODE STATUS; full code
[2023-12-01 20:36] LABS: Glucose,Whole Blood 132 mg/dL (70-110)
[2023-12-02 05:58] LABS: Glucose,Whole Blood 99 mg/dL (70-110)
[2023-12-02 11:52] LABS: Glucose,Whole Blood 99 mg/dL (70-110)
[2023-12-02] MEDS: ONDANSETRON 4 MG/2 ML VIAL IVP PRN (12:50)
--- NOTE | 2023-12-02 13:59 | P.PN ---
Subjective Progress Note Date: 12/02/23 CHIEF COMPLAINT: Abdominal pain with diarrhea HISTORY OF PRESENT ILLNESS: Bella Su is a 53-year-old female who presents diarrhea and chronic abdominal pain. She still continues to have diarrhea over 8x daily despite multiple medication and dietary adjustments. Colonoscopy negative for colitis including collagenous colitis. Stool cultures x 2 are negative. REVIEW OF ORGAN SYSTEMS: No fevers or chills. No shortness of breath. PHYSICAL EXAM: VITAL SIGNS: Reviewed. GENERAL: Well-developed in no acute distress. HEENT: No scleral icterus. Extraocular movements grossly intact. Hears conversational speech. No nasal drainage. CHEST: Nonlabored respirations with equal bilateral excursions. CARDIOVASCULAR: Regular rate and regular rhythm. Distal 2+ pulses. ABDOMEN: No peritonitis. MUSCULOSKELETAL: No clubbing, cyanosis. NEURO: No focal or lateralizing signs. Cranial nerves 2 through 12 grossly within normal limits. PSYCH: Appropriate affect. Alert and oriented to person, place and time. SKIN: Good skin turgor. Well perfused. LABS: Reviewed. WBC normal. PATHOLOGY: No Collagenous colitis or microscopic colitis. ASSESSMENT: 1. Generalized abdominal pain with chronic diarrhea of uncertain etiology 2. Hypokalemia 3. Hypomagnesia 4. Hyperlipidemia 5. Hypertensive heart disease 6. Osteoarthritis bilateral knees 7. Osteoarthritis bilateral hips 8. Osteoarthritis lower back 9. Pneumonia 10. Chronic iron deficiency anemia 11. Diabetes type 2 insulin-dependent, uncontrolled 12. Diabetic neuropathy 13. Pancreatitis, history 14. History of cervical cancer 15. History of C. diff 16. Fibromyalgia 17. Gastroesophageal reflux disease 18. Transient ischemic attack 19. Depressive disorder 20. Generalized anxiety disorder 21. Congestive heart failure 22. Vitamin D deficiency 23. Hypothyroidism 24. Anemia 25. Colon cancer, family 26. Morbid obesity due to excess calories 27. Body mass index of 52.5 to 32.9 28. Asthma PLAN: 1. Consultation to GI team for medical management of severe diarrhea. Objective - Vital Signs Vital signs: Vital Signs Temp 97.6 F 12/02/23 07:07 Pulse 84 12/02/23 07:07 Resp 18 12/02/23 08:00 BP 104/72 12/02/23 07:07 Pulse Ox 97 12/02/23 07:07 FiO2 Intake & Output 12/01/23 12/02/23 12/02/23 18:59 06:59 18:59 Other: Voiding Method Toilet Toilet Toilet # Voids 3 # Bowel Movements 9 7 - Labs CBC & Chem 7: 12/01/23 06:36 12/01/23 06:36 Labs: Abnormal Lab Results - Last 24 Hours (Table) 12/01/23 12/01/23 Range/Units 16:30 20:35 POC Glucose (mg/dL) 126 H 132 H (70-110) mg/dL Microbiology - Last 24 Hours (Table) 11/28/23 09:58 Stool Culture - Final Stool
--- NOTE | 2023-12-02 14:56 | P.PN ---
Subjective Progress Note Date: 12/01/23 Principal diagnosis: Reason for follow-up is diarrhea questionably C. difficile Patient is a 53-year-old female with a past medical history significant for diabetes mellitus fibromyalgia hypertension reflux pneumonia asthma recently exposed antibiotic in the form of Augmentin for a tooth infection a week into taking the antibiotic the patient did develop significant diarrhea, present to the hospital with abdominal pain and diarrhea with CT on admission did not show any acute changes. On today's visit that is Patient is status post colonoscopy completed 11/28/2023 suggestive of microscopic colitis status post biopsy. On today's visit that is 12/01/2023, patient has been afebrile, patient is breathing comfortably and is currently on room air, patient denies having any significant cough no chest pain shortness of breath, patient denies nausea vomiting still complaining of lower abdominal pain and persistent diarrhea Patient white count normal at 9.82, creatinine 0.6 Objective - Vital Signs Vital signs: Vital Signs Temp 97.8 F 12/01/23 07:03 Pulse 88 12/01/23 07:03 Resp 16 12/01/23 09:10 BP 93/61 12/01/23 07:03 Pulse Ox 95 12/01/23 07:03 FiO2 Intake & Output 11/30/23 12/01/23 12/01/23 18:59 06:59 18:59 Other: Voiding Method Toilet Toilet # Voids 10 3 # Bowel Movements 1 2 - Exam GENERAL DESCRIPTION: Middle-aged female lying in bed in no distress RESPIRATORY SYSTEM: Unlabored breathing , decreased breath sounds at bases HEART: S1 S2 regular rate and rhythm , ABDOMEN: Soft , mild lower abdominal tenderness EXTREMITIES: No edema feet - Labs CBC & Chem 7: 12/01/23 06:36 12/01/23 06:36 Labs: Abnormal Lab Results - Last 24 Hours (Table) 11/30/23 11/30/23 12/01/23 Range/Units 05:45 19:56 06:36 Hgb (12.0-15.0) g/dL Hct (37.2-46.3) % MCH (27.0-32.0) pg MCHC (32.0-37.0) g/dL RDW (11.5-14.5) % BUN (9.0-27.0) mg/dL BUN/Creatinine Ratio (12.00-20.00) Ratio Glucose (70-110) mg/dL POC Glucose (mg/dL) 146 H (70-110) mg/dL Hemoglobin A1c 8.1 H 8.0 H (<=6.0) % Total Bilirubin (0.3-1.2) mg/dL Total Protein (6.2-8.2) g/dL Albumin (3.8-4.9) g/dL Albumin/Globulin Ratio (1.60-3.17) Ratio 12/01/23 12/01/23 12/01/23 Range/Units 06:36 06:36 11:20 Hgb 10.8 L (12.0-15.0) g/dL Hct 36.1 L (37.2-46.3) % MCH 24.7 L (27.0-32.0) pg MCHC 29.9 L (32.0-37.0) g/dL RDW 16.5 H (11.5-14.5) % BUN 4.7 L (9.0-27.0) mg/dL BUN/Creatinine Ratio 7.83 L (12.00-20.00) Ratio Glucose 117 H (70-110) mg/dL POC Glucose (mg/dL) 111 H (70-110) mg/dL Hemoglobin A1c (<=6.0) % Total Bilirubin <0.2 L (0.3-1.2) mg/dL Total Protein 6.1 L (6.2-8.2) g/dL Albumin 3.7 L (3.8-4.9) g/dL Albumin/Globulin Ratio 1.54 L (1.60-3.17) Ratio Microbiology - Last 24 Hours (Table) 11/28/23 09:58 Stool Culture - Preliminary Stool Assessment and Plan (1) Leukocytosis Current Visit: Yes Status: Acute Code(s): D72.829 - ELEVATED WHITE BLOOD CELL COUNT, UNSPECIFIED SNOMED Code(s): 538427618 (2) Gastroenteritis Current Visit: Yes Status: Acute Code(s): K52.9 - NONINFECTIVE GASTROENTERIT IS AND COLITIS, UNSPECIFIED SNOMED Code(s): 32487780 Plan: 1patient presented to hospital with a lower abdominal pain in this patient who did have some tenderness and significant diarrhea patient has been exposed to antibiotic concern for possible C. difficile colitis versus other infectious colitis 2-stool for C. difficile is negative, Stool culture negative as well 3- patient remains to be afebrile white count is normal stool lactoferrin was positive stool culture x 2 has been negative, colonoscopy suggestive of microscopic colitis status post biopsy however biopsy did not show any evidence of microscopic colitis, patient is currently on symptomatic treatment with Imodium and Bentyl and bismuth subsalicylate, still complaining of symptoms await GI evaluation Dictation was produced using [employer] dictation software. please excuse any grammatical, word or spelling errors. Time with Patient: Less than 30
--- NOTE | 2023-12-02 14:57 | P.PN ---
Subjective Progress Note Date: 12/02/23 Principal diagnosis: Reason for follow-up is diarrhea questionably C. difficile Patient is a 53-year-old female with a past medical history significant for diabetes mellitus fibromyalgia hypertension reflux pneumonia asthma recently exposed antibiotic in the form of Augmentin for a tooth infection a week into taking the antibiotic the patient did develop significant diarrhea, present to the hospital with abdominal pain and diarrhea with CT on admission did not show any acute changes. On today's visit that is Patient is status post colonoscopy completed 11/28/2023 suggestive of microscopic colitis status post biopsy. On today's visit that is 12/02/2023,the patient denies any fever or any chills, patient is breathing comfortably on room air, the patient denies chest pain shortness of breath and no significant cough, patient denies nausea vomiting however cannot complain of lower abdominal discomfort and did have persistent diarrhea no blood or mucus in the stool. No labs were obtained today stool culture has been negative C. difficile negative Objective - Vital Signs Vital signs: Vital Signs Temp 98.4 F 12/02/23 13:34 Pulse 90 12/02/23 13:34 Resp 16 12/02/23 13:34 BP 100/69 12/02/23 13:34 Pulse Ox 96 12/02/23 13:34 FiO2 Intake & Output 12/01/23 12/02/23 12/02/23 18:59 06:59 18:59 Other: Voiding Method Toilet Toilet Toilet # Voids 3 # Bowel Movements 9 7 - Exam GENERAL DESCRIPTION: Middle-aged female lying in bed in no distress RESPIRATORY SYSTEM: Unlabored breathing , decreased breath sounds at bases HEART: S1 S2 regular rate and rhythm , ABDOMEN: Soft , mild lower abdominal tenderness EXTREMITIES: No edema feet - Labs CBC & Chem 7: 12/01/23 06:36 12/01/23 06:36 Labs: Abnormal Lab Results - Last 24 Hours (Table) 12/01/23 12/01/23 Range/Units 16:30 20:35 POC Glucose (mg/dL) 126 H 132 H (70-110) mg/dL Microbiology - Last 24 Hours (Table) 11/28/23 09:58 Stool Culture - Final Stool Assessment and Plan (1) Leukocytosis Current Visit: Yes Status: Acute Code(s): D72.829 - ELEVATED WHITE BLOOD CELL COUNT, UNSPECIFIED SNOMED Code(s): 402536087 (2) Gastroenteritis Current Visit: Yes Status: Acute Code(s): K52.9 - NONINFECTIVE GASTROENTERITIS AND COLITIS, UNSPECIFIED SNOMED Code(s): 22010984 Plan: 1patient presented to hospital with a lower abdominal pain in this patient who did have some tenderness and significant diarrhea patient has been exposed to antibiotic concern for possible C. difficile colitis versus other infectious colitis 2-stool for C. difficile is negative, Stool culture negative as well 3- patient remains to be afebrile white count is normal stool lactoferrin was positive stool culture x 2 has been negative, colonoscopy suggestive of micro scopic colitis status post biopsy however biopsy did not show any evidence of microscopic colitis, patient is currently on symptomatic treatment with Imodium and Bentyl and bismuth subsalicylate, still complaining of diarrhea GI has been consulted await their evaluation and recommendation, no need for systemic antibiotic at this point Dictation was produced using [employer] dictation software. please excuse any grammatical, word or spelling errors. Time with Patient: Less than 30
[2023-12-02 16:36] LABS: Glucose,Whole Blood 108 mg/dL (70-110)
--- NOTE | 2023-12-02 16:48 | P.PN ---
Subjective Progress Note Date: 12/02/23 53-year-old female, history of diabetes mellitus, asthma, hyperlipidemia, fibromyalgia, presents to the ER for evaluation today. Patient notes today for evaluation regards to significant abdominal wall pain abnormal electrolytes nausea vomiting diarrhea persistent diarrhea with now decreasing any bowel m ovements at all. Decreased appetite with significant weight loss --Patient was seen in the ED on 11/11/2023 with similar complaints of nausea vomiting diarrhea and abdominal pain that has been going on for past 2 weeks; patient was empirically started on oral vancomycin for C. difficile colitis and was discharged home; symptoms worsened and patient presented back to ED for further evaluation Blood work completed in ED reveals a WBC of 12.5 which is improved from 14.4 on previous admission; hemoglobin of 13.9, platelet 433, sodium 135, potassium 3.0, BUNs/creatinine of 12/0.87, blood glucose of 189, lactic acid level of 1.6 magnesium 1.0, phosphorus 5.5, AST/ALT elevated at 60/48, amylase lipase are negative, UA is positive for large leukocyte esterase, WBCs and bacteria --Patient has been evaluated by general surgery and recommending EGD and colonoscopy -- Given persistent diarrhea patient is recommended to continue with oral vancomycin -Stool studies have been sent including ova, parasites, stool WBCs and culture and C. difficile toxin 12/01/2023 Patient is afebrile patient is currently on room air and denies having any shortness of breath, the patient denies any chest pain or cough, the patient denies any nausea vomiting however still complaining of lower abdominal discomfort and did have multiple loose stool denies any blood or mucus in the stool. Patient reports 17 loose bowel movements through the night and 6 loose bowel movements since 7 AM Patient white count is 8.72, creatinine 0.8 urine negative 12/02/2023 Patient is seen and evaluated in room at bedside Vital signs are stable with temperature of 98.4, pulse 90, respirations 16 and blood pressure 100/69 patient presented to hospital with a lower abdominal pain in this patient who did have some tenderness and significant diarrhea patient has been exposed to antibiotic concern for possible C. difficile colitis versus other infectious colitis -stool for C. difficile is negative, Stool culture negative as well - patient remains to be afebrile white count is normal stool lactoferrin was positive stool culture x 2 has been negative, colonoscopy suggestive of microscopic colitis status post biopsy however biopsy did not show any evidence of microscopic colitis, patient is currently on symptomatic treatment with Imodium and Bentyl and bismuth subsalicylate, still complaining of diarrhea GI has been consulted await their evaluation and recommendation, no need for systemic antibiotic at this point Objective - Vital Signs Vital signs: Vital Signs Temp 97.6 F 12/02/23 07:07 Pulse 84 12/02/23 07:07 Resp 18 12/02/23 08:00 BP 104/72 12/02/23 07:07 Pulse Ox 97 12/02/23 07:07 FiO2 Intake & Output 12/01/23 12/02/23 12/02/23 18:59 06:59 18:59 Other: Voiding Method Toilet Toilet Toilet # Voids 3 # Bowel Movements 9 7 - Exam General appearance: alert, in no apparent distress Eye exam: Present: normal appearance Neck exam: Present: normal inspection Respiratory exam: Present: normal lung sounds bilaterally Cardiovascular Exam: Present: normal rhythm GI/Abdominal exam: Present: soft (Diffuse abdominal tenderness to palpation worse in the lower abdomen. No rebound guarding or rigidity. Bowel sounds present.) Neurological exam: Present: alert, oriented X3 Skin exam: Present: warm, dry - Labs CBC & Chem 7: 12/01/23 06:36 12/01/23 06:36 Labs: Abnormal Lab Results - Last 24 Hours (Table) 12/01/23 12/01/23 12/01/23 Range/Units 11:20 16:30 20:35 POC Glucose (mg/dL) 111 H 126 H 132 H (70-110) mg/dL Microbiology - Last 24 Hours (Table) 11/28/23 09:58 Stool Culture - Final Stool Assessment and Plan Assessment: 1. Persistent abdominal pain with nausea, vomiting and diarrhea --Patient had CT of the abdomen completed in ED which does not reveal any acute abnormality in abdomen or pelvis -Blood work completed reveals negative amylase lipase; mild transaminitis -Patient is admitted for further evaluation and surgical consult and evaluation 2. Electrolyte imbalance; marked hypokalemia and hypomagnesemia; patient is sup plemented in ED; will monitor electrolytes closely and supplement as needed 3. Transaminitis; AST/ALT elevated at 44/48 with slight upward trend of AST at 60; will monitor liver enzymes closely; will order right upper quadrant ultrasound if liver enzymes continue to trend up along with acute hepatitis profile 4. Hyperglycemia without acidosis/diabetes mellitus with long-term insulin use; patient takes Levemir 30 units subcu daily; monitor Accu-Cheks before every meal and at bedtime with insulin sliding scale 5. Persistent diarrhea; presumed C. difficile colitis; patient has not been able to give any stool specimen yet; remains on oral vancomycin 6. Neuropathy/fibromyalgia; patient takes Neurontin 300 mg every morning and 600 mg nightly 7. Hyperlipidemia; Lipitor 40 mg p.o. nightly; will discontinue statins if liver enzymes continue to trend up 8. Attention; propranolol 80 mg daily 9. Anxiety/depression; Remeron 15 mg p.o. nightly, Lexapro 20 mg daily, BuSpar 15 mg twice daily DVT prophylaxis; SCDs CODE STATUS; full code
[2023-12-02 20:54] LABS: Glucose,Whole Blood 146 mg/dL (70-110)
[2023-12-03] MEDS: ACETAMINOPHEN TAB 325 MG TAB PO PRN (01:30)
[2023-12-03 01:31] LABS: Glucose,Whole Blood 113 mg/dL (70-110)
[2023-12-03 05:48] LABS: Glucose,Whole Blood 116 mg/dL (70-110)
[2023-12-03] MEDS ORDERED: LIDOCAINE 1% INJ 10MG/ML (20 ML MDV) ONE (11:05)
[2023-12-03] MEDS ORDERED: PROPOFOL 10 MG/ML 20 ML VIAL IV ONE (11:05)
[2023-12-03] MEDS: LACTATED RINGERS 1,000 ML IV ONE ×2 (11:09→11:17)
--- NOTE | 2023-12-03 11:29 | P.PN ---
Subjective Progress Note Date: 12/03/23 this is a 53-year-old female patient of Dr. Knight who initially presented to ER with concerns of abdominal pain with nausea vomiting and diarrhea along with electrolyte imbalance. According to records patient originally presented TR on 11/11/2023 with complaints of nausea vomiting and diarrhea that has been going on for the past 2 weeks. Patient was treated with oral vancomycin for C. diff was discharged home. Patient returned with lack of improvement of symptoms. Patient has a past medical history of diabetes mellitus, asthma, hyperlipidemia, fibromyalgia. CT of abdomen and pelvis was negative for acute process patient was maintained on oral vancomycin. Dr. Nails group was covering we are resuming care patient on 11/26/2023 patient is alert and oriented 3. Patient still complaining about significant diarrhea abdomen is soft but tender to palpation. Infectious disease and surgical services are following. according to records patient'sWilliam with increased and patient started on Questran. Surgical services are following with possible thought of colonoscopy. Patient remains on Flagyl and Rocephin.patient denies chest pain. Patient denies nausea or vomiting. Patient denies any urinary burning or frequency. Current vital signs temp 98.2, heart rate 70, respiratory rate 16, blood pressure 127/85 pulse ox 98% on room air On 11/27/2023 patient is alert and oriented 3 still complaining of significant diarrhea. Plan for colonoscopy tomorrow for for 11/28/2023. current vital signs temp 98.3, heart rate 81, respiratory rate 18, blood pressure 108/74 with pulse ox 96%. Patient remains onFlagyl. Surgical services and infectious disease services are following on 11/28/2023 patient was seen and examined on the medical floor she is alert and oriented 3 in no apparent distress she is complaining of abdominal pain and cramping she is also complaining of vaginal itching today otherwise she denies any complaints there is no fever or chills no headache dizziness no chest pain no shortness of breath no cough no nausea or vomiting no diarrhea and no urinary symptoms. Patient underwent colonoscopy today, results reviewed with patient, will follow in a.m.. on 11/29/2023 patient was seen and examined on the medical floor she is alert and oriented in no apparent distress she is still complaining of abdominal pain and requesting more pain medications, at this time labs and colonoscopy report reviewed awaiting furtherculture results and recommendation from surgery and infectious disease, Will continue was current management On 11/30/2023 patient's alert and oriented 3. Bentyl as been increased per surgical services . Infectious disease and surgical services are following. Current vital signs temp 97.5, rate 82, respiratory rate 17, blood pressure 100/69 with pulse ox 95% Dr. Nails's group will be covering for 12/01/2023 to 12/02/2023 On 12/03/2023 patient is alert and oriented 3.patient continued to have multiple loose stools. Last few was negative for colitis. At this time GI services have been consulted. Current vital signs temp 98.0, heart rate 92, respiratory rate 18, blood pressure 107/70 with pulse of 95% on room air. Patient denies chest pain. Patient complaining of abdominal pain. Patient denies any urinary burning or frequency Objective - Vital Signs Vital signs: Vital Signs Temp 98.0 F 12/03/23 07:28 Pulse 92 12/03/23 07:28 Resp 18 12/03/23 07:28 BP 107/70 12/03/23 07:28 Pulse Ox 95 12/03/23 07:28 FiO2 Intake & Output 12/02/23 12/03/23 12/03/23 18:59 06:59 18:59 Intake Total 100 Balance 100 Intake: IV 100 Other: Voiding Method Toilet Toilet # Voids 2 3 # Bowel Movements 11 9 - Exam Head normocephalic Neck supple Lungs clear to auscultation bilaterally no wheezing or crackles Heart regular rate and rhythm S1-S2, no rub or gallop Abdomen is soft nontender nondistended positive bowel sounds no hepatosplenomegaly Extremities no edema Neuro alert and orientated to 3 - Labs CBC & Chem 7: 12/01/23 06:36 12/01/23 06:36 Labs: Abnormal Lab Results - Last 24 Hours (Table) 12/02/23 12/03/23 12/03/23 Range/Units 20:47 01:28 05:46 POC Glucose (mg/dL) 146 H 113 H 116 H (70-110) mg/dL Microbiology - Last 24 Hours (Table) 11/28/23 09:58 Stool Culture - Final Stool Assessment and Plan Assessment: 1. persistent abdominal pain with nausea and diarrhea. CT of abdomen does not reveal any acute abnormality in the abdomen and pelvis. Patient was started on Flagyl and Rocephin. Stool positive for lactoferrin. patient maintained on Flagyl and Rocephin. Infectious disease and surgical services are following 2. Electively balance 3. Elevated liver enzymes 4. History of fibromyalgia 5. Diabetes mellitus type 2 6. History of hyperlipidemia 7. History of anxiety and depression infectious disease and surgical services are following status post colonoscopynegative for colitis Surgical services and infectious disease services following GI service is consulted Repeat labs in a.m.
[2023-12-03 11:53] LABS: Glucose,Whole Blood 68 mg/dL (70-110)
--- NOTE | 2023-12-03 11:55 | P.PCN ---
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 INDICATIONS: The patient is a 53-year-old female who presents with new acute gastrointestinal bleeding. Benefits and risks of the procedure were described. Informed consent was obtained. DESCRIPTION: The patient was brought into the endoscopy suite and laid in the left lateral decubitus position. An Olympus gastroscope was passed along the posterior oropharynx down to the distal esophagus where the squamocolumnar junction was encountered at 38 cm from the incisors. The gastric pouch was entered including the remnant gastric bypass anastomotic reversal. No evidence of bleeding was found. The scope was passed 60 cm from the incisors along both afferent efferent limbs. The stomach was desufflated. The patient tolerated the procedure well. FINDINGS: Squamocolumnar junction 38 cm from the incisors. LA grade A erosive esophagitis. Reversal of remnant gastric bypass anastomosis unremarkable without bleeding No stigmata of bleeding RECOMMENDATIONS: 1. Diet as tolerated 2. Upper endoscopy as needed
[2023-12-03 12:08] LABS: Glucose,Whole Blood 77 mg/dL (70-110)
[2023-12-03] MEDS: LOPERAMIDE 2 MG CAP PO SCH (13:40)
[2023-12-03 16:27] LABS: Glucose,Whole Blood 102 mg/dL (70-110)
--- NOTE | 2023-12-03 17:04 | P.CONS ---
History of Present Illness - Reason for Consult Consult date: 12/03/23 Diarrhea Requesting physician: Osiris Contreras - Chief Complaint Diarrhea - History of Present Illness This is a pleasant 53-year-old female who presented to the emergency department with complaints of weakness and and diarrhea. Patient has had diarrhea ongoing since September however has progressively gotten worse over the last 3 weeks duration. Patient was admitted to this hospital on 11/16/2023. She had been complaining of diarrhea and abdominal cramping and discomfort. She had a CT of the abdomen pelvis with no significant interval change. No acute CT abnormality in the abdomen or pelvis. She reports that she was bitten by a dog on September 26, 2023. At that time she was started on clindamycin. Shortly after that she started having diarrhea. Diarrhea was getting worse they assumed patient had C. difficile and she was started on vancomycin Although C. difficile was negative. She states she continued to have diarrhea. When asked if she started any new medications only new medication was her Mounjaro which she states she started around middle to end of September. She reports having up to 18 bowel movements a day. Small to medium amount. Nonbloody. She had stool cultures which were negative, stool lactoferrin positive, stool cryptosporidium negative, stool Giardia antigen negative. Ova and parasites ordered however currently pending. During this hospitalization she did undergo colonoscopy with Dr. Contreras with findings of grade 1 internal hemorrhoids. Multiple biopsies were taken. Biopsy results show no microscopic colitis. 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 She was started on IV Rocephin and oral Flagyl on admission. Both have been discontinued. She has had a electrolyte replacement. She was started on Imodium, Bentyl and Questran. Patient states she had multiple doses of Questran but when she took it she had immediate diarrhea. Review of Systems REVIEW OF SYSTEMS: CARDIOPULMONARY: No chest pain or shortness of breath. Gastrointestinal: Lower abdominal pain. Diarrhea 10-18 times a day. No nausea or vomiting. No hematemesis, coffee-ground emesis. No rectal bleeding, or melena. GENITOURINARY: No dysuria or hematuria. MUSCULOSKELETAL: Reports normal range of motion., SKIN: No rashes. No jaundice. ENDOCRINE: No chills, fevers. No excessive weight gain or loss. No polydipsia or polyuria. PSYCHIATRIC: Unremarkable. NEUROLOGY: No change in mental status. Denies dizziness, headache. ENT: Vision unremarkable. CONSTITUTIONAL: Reports about a 20 pound weight loss. No fever, chills, night sweats. Past Medical History Past Medical History: Asthma, Cancer, CVA/TIA, Diabetes Mellitus, Fibromyalgia, GERD/Reflux, Hyperlipidemia, Osteoarthritis (OA), Pneumonia Additional Past Medical History / Comment(s): Had Iron infusions in Apr 2019. Hx TIA 2015. Diabetic neuropathy eli feet, migraines, cervical disc disease, DDD, eli tinnitis, arthiritis bilateral shoulders, IBS, HX R arm fx yrs ago, R ovarian cyst, hiatal hernia, UTIs, urinary calculus, pancreatitis x 2, stomach ulcer. Hx cervical cancer. COVID 08/2020 History of Any Multi-Drug Resistant Organisms: C-DIFF Year Discovered:: 2015 MDRO Source:: None Past Surgical History: Appendectomy, Bariatric Surgery, Cholecystectomy, Hysterectomy, Tonsillectomy Additional Past Surgical History / Comment(s): 2010 eflix-en-[id number], fistula repair 2011, 2011 gastric bypass revision, bowel resection, lap gastrojejunostomy anastamosis revision, EGD and colonoscopy, cone bx-cervical cancer removed with cryo, L fallopian tube removed due to cyst, picc line in and out, CERVICAL FUSION 12/21/16. Past Anesthesia/Blood Transfusion Reactions: Family History of Problems w/ Anesthesia, Motion Sickness, Postoperative Nausea & Vomiting (PONV) Additional Past Anesthesia/Blood Transfusion Reaction / Comm: Pt states she has never recieved blood. FAMILY HX PONV. Past Psychological History: Anxiety, Depression Smoking Status: Never smoker Past Alcohol Use History: None Reported Past Drug Use History: None Reported - Past Family History Brother(s) Family Medical History: Deep Vein Thrombosis (DVT) Father Family Medical History: Cancer, Deep Vein Thrombosis (DVT), Pulmonary Embolus Additional Family Medical History / Comment(s): Father had poss colon and lung cancer and at age 73yrs. Mother Family Medical History: Coronary Artery Disease (CAD), Diabetes Mellitus, Deep Vein Thrombosis (DVT), Hypertension, Pulmonary Embolus Additional Family Medical History / Comment(s): Mother is alive and 73 yrs old. Medications and Allergies Home Medications Medication Instructions Recorded Confirmed Type Cetirizine HCl [Zyrtec] 10 mg PO DAILY 06/13/18 11/17/23 History Mirtazapine [Remeron] 15 mg PO HS 10/08/18 11/17/23 History LORazepam [Ativan] 0.5 mg PO Q6H PRN 04/23/19 11/17/23 History Propranolol HCl [Inderal Xl] 80 mg PO HS 04/23/19 11/17/23 History Gabapentin 300 mg PO DAILY 02/28/22 11/17/23 History Rizatriptan Odt [Maxalt SAT TUTOR] 10 mg PO TID PRN 02/28/22 11/17/23 History metFORMIN HCL ER [Glucophage XR] 2,000 mg PO DAILY 02/28/22 11/17/23 History Furosemide [Lasix] 20 mg PO BID 02/16/23 11/17/23 History Simvastatin [Zocor] 80 mg PO HS 02/28/23 11/17/23 History Escitalopram [Lexapro] 20 mg PO DAILY 03/21/23 11/17/23 History Ibuprofen [Motrin] 600 mg PO Q8HR PRN #30 tab 03/23/23 11/17/23 Rx Vancomycin HCl [Vancocin HCl] 125 mg PO QID #40 cap 11/07/23 11/17/23 Rx Docusate Sodium [Dok] 100 mg PO DAILY 11/17/23 11/17/23 History Gabapentin 600 mg PO HS 11/17/23 11/17/23 History Insulin Glargine,Hum.rec.anlog 30 units SQ DAILY 11/17/23 11/17/23 History [Lantus Solostar Pen] Ondansetron Odt [Zofran Odt] 8 mg PO Q8HR PRN 11/17/23 11/17/23 History Scopolamine 1 mg/72 Hr Patch 1 patch TRANSDERM Q72H PRN 11/17/23 11/17/23 History [TransDerm Scop] Tirzepatide [Mounjaro] 5 mg SQ FR 11/17/23 11/17/23 History busPIRone HCL 15 mg PO BID 11/17/23 11/17/23 History lisinopriL [Zestril] 2.5 mg PO DAILY 11/17/23 11/17/23 History Allergies Allergy/AdvReac Type Severity Reaction Status Date / Time oxycodone [From Percocet] Allergy Unknown Swelling; Verified 11/16/23 16:42 (WAS ABLE TO TAKE ALONG WITH BENADRYL) apricot Allergy Dyspnea Verified 11/16/23 16:42 barium sulfate Allergy Anaphylaxis Verified 11/16/23 16:42 [From Readi-Cat] codeine Allergy Anaphylaxis Verified 11/16/23 16:42 fentanyl Allergy Rash/Hives Verified 11/16/23 16:42 hydrocodone [From Lortab] Allergy Swelling Verified 11/16/23 16:42 Iodinated Contrast Media Allergy Anaphylaxis Verified 11/16/23 16:42 iodine Allergy Rash/Hives Verified 11/16/23 16:42 iron Allergy Swelling Verified 11/16/23 16:42 levofloxacin [From Levaquin] Allergy Swelling Verified 11/16/23 16:42 morphine Allergy Rash/Hives, Verified 11/16/23 16:42 Nausea/Vomiting peach Allergy Swelling Verified 11/16/23 16:42 peanut Allergy Swelling Verified 11/16/23 16:42 peanut oil Allergy Anaphylaxis Verified 11/16/23 16:42 shellfish derived [Shellfish] Allergy Anaphylaxis Verified 11/16/23 16:42 strawberry Allergy Anaphylaxis Verified 11/16/23 16:42 sucralfate [From Carafate] Allergy Swelling Verified 11/16/23 16:42 Sulfa (Sulfonamide Allergy Anaphylaxis Verified 11/16/23 16:42 Antibiotics) sulfamethoxazole Allergy Anaphylaxis Verified 11/16/23 16:42 [From Bactrim] tree nut [Nut] Allergy Swelling Verified 11/16/23 16:42 trimethoprim [From Bactrim] Allergy Anaphylaxis Verified 11/16/23 16:42 metronidazole [From Flagyl] AdvReac Unknown Verified 11/16/23 16:42 Physical Exam Vitals: Vital Signs Temp Pulse Pulse Resp BP BP Pulse Ox 12/03/23 07:28 98.0 F 92 18 107/70 95 12/03/23 00:49 98.8 F 75 19 95/66 96 12/02/23 19:22 98.8 F 94 18 93/68 93 L 12/02/23 13:34 98.4 F 90 16 100/69 96 Intake and Output 12/02/23 12/03/23 12/03/23 22:59 06:59 14:59 Other: Voiding Method Toilet # Voids 2 3 # Bowel Movements 11 9 General appearance: The patient is alert, oriented, appears in no acute distress. HET: Head is normocephalic and atraumatic. Conjunctiva pink. Sclera anicteric. Neck: Supple without lymphadenopathy. Abdomen: Soft, lower abdominal tenderness with palpation, nondistended with bowel sounds. No guarding or rigidity. Extremities: Normal skin color and turgor. No pedal edema Skin: No rashes, no jaundice Neurological: No focal deficits. Alert and oriented. Results CBC & Chem 7: 12/01/23 06:36 12/01/23 06:36 Labs: Abnormal Lab Results - Last 24 Hours (Table) 12/02/23 12/03/23 12/03/23 Range/Units 20:47 01:28 05:46 POC Glucose (mg/dL) 146 H 113 H 116 H (70-110) mg/dL Microbiology - Last 24 Hours (Table) 11/28/23 09:58 Stool Culture - Final Stool Assessment and Plan (1) Diarrhea Narrative/Plan: 53-year-old female hospitalized for the past 20 days with ongoing diarrhea with unknown etiology. No history of Crohn's or colitis. Underwent both upper and lower endoscopy without any abnormal findings. Colonoscopy biopsies without any evidence of microscopic colitis. Symptoms began in September after she started clindamycin. Thought to have C. difficile colitis therefore she was started on vancomycin. Diarrhea just continued to get worse and has become so significant over the last 4 weeks duration. She has remained hospitalized with electrolyte imbalances. Only new medication patient started with Mounjaro but she has not been on that since she has been here. Unclear etiology of diarrhea. Will increase Imodium to 2 tablets 4 times a day. Continue with Bentyl 20 mg 4 times a day, would recommend Questran but patient states she did not tolerate that. Await ova and parasite stool culture. Celiac panel ordered as well. Current Visit: No Status: Acute Code(s): R19.7 - DIARRHEA, UNSPECIFIED SNOMED Code(s): 01897019 (2) Abdominal pain Current Visit: No Status: Acute Code(s): R10.9 - UNSPECIFIED ABDOMINAL PAIN SNOMED Code(s): 16309458 Plan: 1. Continue symptomatic and supportive care 2. Daily BMP, replace electrolytes as needed 3. Low fiber diet 4. Increase Imodium to 2 tablets 4 times a day 5. Continue Bentyl as ordered 6. Recommend Questran however patient states it gives her abdominal cramping and diarrhea 7. Patient is status post upper and lower endoscopy. 8. Further recommendations forthcoming based on clinical course Thank you for this consultation, we will continue to follow. Dr. Anupam Joseph I agree with the dictator's note, documented as a scribe by Karely Rodriguez.
[2023-12-03] MEDS: CHOLESTYRAMINE (WITH SUGAR) 4 GM PACKET PO SCH (17:46)
[2023-12-03 20:40] LABS: Glucose,Whole Blood 171 mg/dL (70-110)
[2023-12-04 06:01] LABS: Glucose,Whole Blood 88 mg/dL (70-110)
[2023-12-04 08:50] LABS: Basophils % (A) 1.3 %; Eosinophils # (A) 0.25 X 10*3/uL (0.04-0.35); Eosinophils % (A) 3.2 %; HCT 37.6 % (37.2-46.3); HGB 11.4 g/dL (12.0-15.0); Lymphocytes % (A) 55.3 %; MCH 24.4 pg (27.0-32.0); MCHC 30.3 g/dL (32.0-37.0); MCV 80.5 FL (80.0-97.0); Mean Platelet Volume 10.5 FL (9.5-12.2); Monocytes # (A) 0.82 X 10*3/uL (0.20-1.00); Monocytes % (A) 10.5 %; NRBC Per 100 WBC 0 X 10*3/uL (0.00-0.01); Neutrophils % (A) 29.6 %; Platelet Count 314 X 10*3/uL (140-440); RBC 4.67 X 10*6/uL (4.10-5.20); RDW 16.3 % (11.5-14.5); WBC 7.78 X 10*3/uL (4.50-10.00)
[2023-12-04 08:58] LABS: ALT 22 U/L (8-44); AST 28 U/L (13-35); Albumin 3.8 g/dL (3.8-4.9); Albumin/Globulin Ratio 1.52 Ratio (1.60-3.17); Alkaline Phosphatase 79 U/L (41-126); BUN/Creat Ratio 7.29 Ratio (12.00-20.00); Blood Urea Nitrogen 5.1 mg/dL (9.0-27.0); Calcium 9.1 mg/dL (8.7-10.3); Carbon Dioxide 22.3 mmol/L (21.6-31.8); Chloride 104 mmol/L (96-109); Globulin 2.5 g/dL (1.6-3.3); Glucose 73 mg/dL (70-110); Potassium 4.5 mmol/L (3.5-5.5); Sodium 137 mmol/L (135-145); Total Bilirubin 0.2 mg/dL (0.3-1.2); Total Protein 6.3 g/dL (6.2-8.2)
--- NOTE | 2023-12-04 09:14 | P.PN ---
Subjective Progress Note Date: 12/04/23 this is a 53-year-old female patient of Dr. Knight who initially presented to ER with concerns of abdominal pain with nausea vomiting and diarrhea along with electrolyte imbalance. According to records patient originally presented TR on 11/11/2023 with complaints of nausea vomiting and diarrhea that has been going on for the past 2 weeks. Patient was treated with oral vancomycin for C. diff was discharged home. Patient returned with lack of improvement of symptoms. Patient has a past medical history of diabetes mellitus, asthma, hyperlipidemia, fibromyalgia. CT of abdomen and pelvis was negative for acute process patient was maintained on oral vancomycin. Dr. Nails group was covering we are resuming care patient on 11/26/2023 patient is alert and oriented 3. Patient still complaining about significant diarrhea abdomen is soft but tender to palpation. Infectious disease and surgical services are following. according to records patient'sWilliam with increased and patient started on Questran. Surgical services are following with possible thought of colonoscopy. Patient remains on Flagyl and Rocephin.patient denies chest pain. Patient denies nausea or vomiting. Patient denies any urinary burning or frequency. Current vital signs temp 98.2, heart rate 70, respiratory rate 16, blood pressure 127/85 pulse ox 98% on room air On 11/27/2023 patient is alert and oriented 3 still complaining of significant diarrhea. Plan for colonoscopy tomorrow for for 11/28/2023. current vital signs temp 98.3, heart rate 81, respiratory rate 18, blood pressure 108/74 with pulse ox 96%. Patient remains onFlagyl. Surgical services and infectious disease services are following on 11/28/2023 patient was seen and examined on the medical floor she is alert and oriented 3 in no apparent distress she is complaining of abdominal pain and cramping she is also complaining of vaginal itching today otherwise she denies any complaints there is no fever or chills no headache dizziness no chest pain no shortness of breath no cough no nausea or vomiting no diarrhea and no urinary symptoms. Patient underwent colonoscopy today, results reviewed with patient, will follow in a.m.. on 11/29/2023 patient was seen and examined on the medical floor she is alert and oriented in no apparent distress she is still complaining of abdominal pain and requesting more pain medications, at this time labs and colonoscopy report reviewed awaiting furtherculture results and recommendation from surgery and infectious disease, Will continue was current management On 11/30/2023 patient's alert and oriented 3. Bentyl as been increased per surgical services . Infectious disease and surgical services are following. Current vital signs temp 97.5, rate 82, respiratory rate 17, blood pressure 100/69 with pulse ox 95% Dr. Nails's group will be covering for 12/01/2023 to 12/02/2023 On 12/03/2023 patient is alert and oriented 3.patient continued to have multiple loose stools. Last few was negative for colitis. At this time GI services have been consulted. Current vital signs temp 98.0, heart rate 92, respiratory rate 18, blood pressure 107/70 with pulse of 95% on room air. Patient denies chest pain. Patient complaining of abdominal pain. Patient denies any urinary burning or frequency On 12/04/2023 patient's alert and oriented 3. Patient underwent EGD which was negative yesterday per surgical services. No further workup per surgery. GI services consulted for patient due to ongoing severe diarrhea. Lab work ordered including celiac panel. Bentyl and Imodium increased.patient sleeping comfortably at this time but does wake up and states she's having abdominal pain has been tolerating diet.current vital signs temp 97.6, heart rate 84, respiratory rate 15, blood pressure 98/65 with pulse ox 95% on room air Objective - Vital Signs Vital signs: Vital Signs Temp 97.6 F 12/04/23 07:06 Pulse 84 12/04/23 07:06 Resp 15 12/04/23 07:06 BP 98/65 12/04/23 07:06 Pulse Ox 93 L 12/04/23 07:06 FiO2 Intake & Output 12/03/23 12/04/23 12/04/23 18:59 06:59 18:59 Intake Total 100 Balance 100 Weight 90.4 kg Intake: IV 100 Other: Voiding Method Toilet # Voids 9 4 # Bowel Movements 9 - Exam Head normocephalic Neck supple Lungs clear to auscultation bilaterally no wheezing or crackles Heart regular rate and rhythm S1-S2, no rub or gallop Abdomen is soft nontender nondistended positive bowel sounds no hepatosplenomegaly Extremities no edema Neuro alert and orientated to 3 - Labs CBC & Chem 7: 12/04/23 04:13 12/04/23 04:13 Labs: Abnormal Lab Results - Last 24 Hours (Table) 12/03/23 12/03/23 12/04/23 Range/Units 11:52 20:39 04:13 Hgb 11.4 L (12.0-15.0) g/dL MCH 24.4 L (27.0-32.0) pg MCHC 30.3 L (32.0-37.0) g/dL RDW 16.3 H (11.5-14.5) % BUN (9.0-27.0) mg/dL BUN/Creatinine Ratio (12.00-20.00) Ratio POC Glucose (mg/dL) 68 L 171 H (70-110) mg/dL Total Bilirubin (0.3-1.2) mg/dL Albumin/Globulin Ratio (1.60-3.17) Ratio 12/04/23 Range/Units 04:13 Hgb (12.0-15.0) g/dL MCH (27.0-32.0) pg MCHC (32.0-37.0) g/dL RDW (11.5-14.5) % BUN 5.1 L (9.0-27.0) mg/dL BUN/Creatinine Ratio 7.29 L (12.00-20.00) Ratio POC Glucose (mg/dL) (70-110) mg/dL Total Bilirubin 0.2 L (0.3-1.2) mg/dL Albumin/Globulin Ratio 1.52 L (1.60-3.17) Ratio Assessment and Plan Assessment: 1. persistent abdominal pain with nausea and diarrhea. CT of abdomen does not reveal any acute abnormality in the abdomen and pelvis. Patient was started on Flagyl and Rocephin. Stool positive for lactoferrin. patient maintained on Flagyl and Rocephin. Infectious disease and surgical services are following 2. Electively balance 3. Elevated liver enzymes 4. History of fibromyalgia 5. Diabetes mellitus type 2 6. History of hyperlipidemia 7. History of anxiety and depression infectious disease and surgical services are following status post colonoscopynegative for colitis status post EGD negative Surgical services and infectious disease services following GI service is consulted Repeat labs in a.m.
--- NOTE | 2023-12-04 11:01 | P.PN ---
Subjective Progress Note Date: 12/04/23 CHIEF COMPLAINT: Abdominal pain with diarrhea HISTORY OF PRESENT ILLNESS: Patient lying in bed comfortably. She is status post EGD patient results showed erosive esophagitis and reversal of remnant gastric bypass anastomosis unremarkable without bleeding. No stigmata of bleeding. She is tolerating diet. She is status post colonoscopy with random biopsies were obtained. Pathology results are negative. Stool cultures negative. Ova and parasite culture obtained during colonoscopy has not finalize d PHYSICAL EXAM: VITAL SIGNS: Reviewed GENERAL: Well-developed in no acute distress. HEENT: No sclera icterus. Extraocular movements grossly intact. Moist buccal mucosa. Head is atraumatic, normocephalic. Hears conversational speech. No nasal drainage. NECK: Supple without lymphadenopathy. CHEST: Non-labored respirations and equal bilateral excursions. CARDIOVASCULAR: Palpable 2+ radial pulses. ABDOMEN: Soft. Nondistended. MUSCULOSKELETAL: No clubbing or cyanosis. NEUROLOGIC: No focal or lateralizing signs. Cranial nerves II through XII grossly intact. PSYCH: Appropriate affect. Alert and oriented to person, place and time. SKIN: Well perfused. Good skin turgor. ASSESSMENT: 1. Abdominal pain and diarrhea. Pathology from colonoscopy was negative 2. Possible viral gastroenteritis 3. Hypokalemia, recalcitrant. Improved 4. Hypomagnesia. Improved 5. Ileus due to gastroenteritis 6. History of chronic diarrhea PLAN: -Patient can be discharged from surgical standpoint when medically cleared -Continue GI workup -Continue Imodium -Continue Bentyl -Continue low fiber diet -Continue supportive care -Surgical service will sign off. Please call with any questions or concerns. Physician Wave Guide Assembler note has been reviewed by physician. Signing provider agrees with the documented findings, assessment, and plan of care. Objective - Vital Signs Vital signs: Vital Signs Temp 97.6 F 12/04/23 07:06 Pulse 84 12/04/23 07:06 Resp 15 12/04/23 07:06 BP 98/65 12/04/23 07:06 Pulse Ox 93 L 12/04/23 07:06 FiO2 Intake & Output 12/03/23 12/04/23 12/04/23 18:59 06:59 18:59 Intake Total 100 Balance 100 Weight 90.4 kg Intake: IV 100 Other: Voiding Method Toilet # Voids 9 4 # Bowel Movements 9 - Labs CBC & Chem 7: 12/04/23 04:13 12/04/23 04:13 Labs: Abnormal Lab Results - Last 24 Hours (Table) 12/03/23 12/03/23 12/04/23 Range/Units 11:52 20:39 04:13 Hgb 11.4 L (12.0-15.0) g/dL MCH 24.4 L (27.0-32.0) pg MCHC 30.3 L (32.0-37.0) g/dL RDW 16.3 H (11.5-14.5) % BUN (9.0-27.0) mg/dL BUN/Creatinine Ratio (12.00-20.00) Ratio POC Glucose (mg/dL) 68 L 171 H (70-110) mg/dL Total Bilirubin (0.3-1.2) mg/dL Albumin/Globulin Ratio (1.60-3.17) Ratio 12/04/23 Range/Units 04:13 Hgb (12.0-15.0) g/dL MCH (27.0-32.0) pg MCHC (32.0-37.0) g/dL RDW (11.5-14.5) % BUN 5.1 L (9.0-27.0) mg/dL BUN/Creatinine Ratio 7.29 L (12.00-20.00) Ratio POC Glucose (mg/dL) (70-110) mg/dL Total Bilirubin 0.2 L (0.3-1.2) mg/dL Albumin/Globulin Ratio 1.52 L (1.60-3.17) Ratio
[2023-12-04 11:09] LABS: Glucose,Whole Blood 101 mg/dL (70-110)
--- NOTE | 2023-12-04 12:42 | P.PN ---
Subjective Progress Note Date: 12/03/23 Principal diagnosis: Reason for follow-up is diarrhea questionably C. difficile Patient is a 53-year-old female with a past medical history significant for diabetes mellitus fibromyalgia hypertension reflux pneumonia asthma recently exposed antibiotic in the form of Augmentin for a tooth infection a week into taking the antibiotic the patient did develop significant diarrhea, present to the hospital with abdominal pain and diarrhea with CT on admission did not show any acute changes. On today's visit that is Patient is status post colonoscopy completed 11/28/2023 suggestive of microscopic colitis status post biopsy. On today's visit that is 12/03/2023,the patient remains to be afebrile, patient is on room air not requiring supplemental oxygen and denies any shortness of breath no chest pain or cough.Patient denies having any nausea or vomiting, however still complaining abdominal pain and persistent diarrhea no blood or mucus in the stool. No new labs were obtained today Objective - Vital Signs Vital signs: Vital Signs Temp 98.0 F 12/03/23 07:28 Pulse 92 12/03/23 07:28 Resp 18 12/03/23 07:28 BP 107/70 12/03/23 07:28 Pulse Ox 95 12/03/23 07:28 FiO2 Intake & Output 12/02/23 12/03/23 12/03/23 18:59 06:59 18:59 Intake Total 100 Balance 100 Intake: IV 100 Other: Voiding Method Toilet Toilet # Voids 2 3 # Bowel Movements 11 9 - Exam GENERAL DESCRIPTION: Middle-aged female lying in bed in no distress RESPIRATORY SYSTEM: Unlabored breathing , decreased breath sounds at bases HEART: S1 S2 regular rate and rhythm , ABDOMEN: Soft , mild lower abdominal tenderness EXTREMITIES: No edema feet - Labs CBC & Chem 7: 12/04/23 04:13 12/04/23 04:13 Labs: Abnormal Lab Results - Last 24 Hours (Table) 12/02/23 12/03/23 12/03/23 Range/Units 20:47 01:28 05:46 POC Glucose (mg/dL) 146 H 113 H 116 H (70-110) mg/dL 12/03/23 Range/Units 11:52 POC Glucose (mg/dL) 68 L (70-110) mg/dL Assessment and Plan (1) Leukocytosis Current Visit: Yes Status: Acute Code(s): D72.829 - ELEVATED WHITE BLOOD CELL COUNT, UNSPECIFIED SNOMED Code(s): 153702624 (2) Gastroenteritis Current Visit: Yes Status: Acute Code(s): K52.9 - NONINFECTIVE GASTROENTERITIS AND COLITIS, UNSPECIFIED SNOMED Code(s): 30626241 Plan: 1patient presented to hospital with a lower abdominal pain in this patient who did have some tenderness and significant diarrhea patient has been exposed to antibiotic concern for possible C. difficile colitis versus other infectious colitis 2-stool for C. difficile is negative, Stool culture negative as well 3- patient remains to be afebrile white count is normal stool lactoferrin was positive stool culture x 2 has been negative, colonoscopy suggestive of microscopic colitis status post biopsy however biopsy did not show any evidence of microscopic colitis, patient is currently on symptomatic treatment with Imodium and Bentyl and bismuth subsalicylate, still complaining of diarrhea GI has been consulted await their evaluation and recommendation and monitor clinical course closely Dictation was produced using [employer] dictation software. please excuse any grammatical, word or spelling errors. Time with Patient: Less than 30
--- NOTE | 2023-12-04 12:43 | P.PN ---
Subjective Progress Note Date: 12/04/23 Principal diagnosis: Reason for follow-up is diarrhea questionably C. difficile Patient is a 53-year-old female with a past medical history significant for diabetes mellitus fibromyalgia hypertension reflux pneumonia asthma recently exposed antibiotic in the form of Augmentin for a tooth infection a week into taking the antibiotic the patient did develop significant diarrhea, present to the hospital with abdominal pain and diarrhea with CT on admission did not show any acute changes. On today's visit that is Patient is status post colonoscopy completed 11/28/2023 suggestive of microscopic colitis status post biopsy. On today's visit that is 12/04/2023, the patient continues to be afebrile, the patient is on room air and breathing comfortably, the Pt denies having any chest pain or cough, the patient denies any nausea vomiting still complaining of abdominal pain and almost 10-15 bowel movements per day. Patient white count is 7.78, creatinine 0.7 Objective - Vital Signs Vital signs: Vital Signs Temp 97.6 F 12/04/23 07:06 Pulse 84 12/04/23 07:06 Resp 15 12/04/23 07:06 BP 98/65 12/04/23 07:06 Pulse Ox 93 L 12/04/23 07:06 FiO2 Intake & Output 12/03/23 12/04/23 12/04/23 18:59 06:59 18:59 Intake Total 100 Balance 100 Weight 90.4 kg Intake: IV 100 Other: Voiding Method Toilet # Voids 9 4 # Bowel Movements 9 - Exam GENERAL DESCRIPTION: Middle-aged female lying in bed in no distress RESPIRATORY SYSTEM: Unlabored breathing , decreased breath sounds at bases HEART: S1 S2 regular rate and rhythm , ABDOMEN: Soft , mild lower abdominal tenderness EXTREMITIES: No edema feet - Labs CBC & Chem 7: 12/04/23 04:13 12/04/23 04:13 Labs: Abnormal Lab Results - Last 24 Hours (Table) 12/03/23 12/04/23 12/04/23 Range/Units 20:39 04:13 04:13 Hgb 11.4 L (12.0-15.0) g/dL MCH 24.4 L (27.0-32.0) pg MCHC 30.3 L (32.0-37.0) g/dL RDW 16.3 H (11.5-14.5) % BUN 5.1 L (9.0-27.0) mg/dL BUN/Creatinine Ratio 7.29 L (12.00-20.00) Ratio POC Glucose (mg/dL) 171 H (70-110) mg/dL Total Bilirubin 0.2 L (0.3-1.2) mg/dL Albumin/Globulin Ratio 1.52 L (1.60-3.17) Ratio Assessment and Plan (1) Leukocytosis Current Visit: Yes Status: Acute Code(s): D72.829 - ELEVATED WHITE BLOOD CELL COUNT, UNSPECIFIED SNOMED Code(s): 453859970 (2) Gastroenteritis Current Visit: Yes Status: Acute Code(s): K52.9 - NONINFECTIVE GASTROE NTERITIS AND COLITIS, UNSPECIFIED SNOMED Code(s): 70325984 Plan: 1patient presented to hospital with a lower abdominal pain in this patient who did have some tenderness and significant diarrhea patient has been exposed to antibiotic concern for possible C. difficile colitis versus other infectious colitis 2-stool for C. difficile is negative, Stool culture negative as well 3- patient remains to be afebrile white count is normal stool lactoferrin was positive stool culture x 2 has been negative, colonoscopy suggestive of microscopic colitis status post biopsy however biopsy did not show any evidence of microscopic colitis, patient is currently on symptomatic treatment with Imodium and Bentyl and bismuth subsalicylate, patient has been evaluated by GI recommending symptomatic treatment no need for systemic antibiotic therapy at this point Dictation was produced using [employer] dictation software. please excuse any grammatical, word or spelling errors. Time with Patient: Less than 30
[2023-12-04 12:52] LABS: Gliadin AB IgA, Deaminated Negative (Negative); Gliadin AB IgA, Unit <0.5 U/mL; Gliadin AB IgG, Deaminated Negative (Negative); Gliadin AB IgG, Unit <0.4 U/mL
--- NOTE | 2023-12-04 14:52 | P.PN ---
Subjective Progress Note Date: 12/04/23 Principal diagnosis: Diarrhea This is a pleasant 53-year-old female who presented to the emergency department with complaints of weakness and and diarrhea. Patient has had diarrhea ongoing since September however has progressively gotten worse over the last 3 weeks duration. Patient was admitted to this hospital on 11/16/2023. She had been complaining of diarrhea and abdominal cramping and discomfort. She had a CT of the abdomen pelvis with no significant interval change. No acute CT abnormality in the abdomen or pelvis. She reports that she was bitten by a dog on September 26, 2023. At that time she was started on clindamycin. Shortly after that she started having diarrhea. Diarrhea was getting worse they assumed patient had C. difficile and she was started on vancomycin Although C. difficile was negative. She states she continued to have diarrhea. When asked if she started any new medications only new medication was her Mounjaro which she states she started around middle to end of September. She reports having up to 18 bowel movements a day. Small to medium amount. Nonbloody. She had stool cultures which were negative, stool lactoferrin positive, stool cryptosporidium negative, stool Giardia antigen negative. Ova and parasites ordered however currently pending. During this hospitalization she did undergo colonoscopy with Dr. Contreras with findings of grade 1 internal hemorrhoids. Multiple biopsies were taken. Biopsy results show no microscopic colitis. 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 She was started on IV Rocephin and oral Flagyl on admission. Both have been discontinued. She has had a electrolyte replacement. She was started on Imodium, Bentyl and Questran. Patient states she had multiple doses of Questran but when she took it she had immediate diarrhea. 12/04/2023 Patient seen and examined today as a follow-up. States that she had about 17 bowel movements yesterday between 7 AM and 7 PM. She has had 3 bowel movements this morning. States they were still watery this morning however are starting to have a little more substance and formed to them. She was restarted on Questran. Denies any nausea or vomiting. Still has some lower abdominal cramping. Denies any fevers or chills. She has been afebrile. Celiac panel negative. Ova and parasite still pending. Objective - Vital Signs Vital signs: Vital Signs Temp 97.6 F 12/04/23 07:06 Pulse 84 12/04/23 07:06 Resp 15 12/04/23 07:06 BP 98/65 12/04/23 07:06 Pulse Ox 93 L 12/04/23 07:06 FiO2 Intake & Output 12/03/23 12/04/23 12/04/23 18:59 06:59 18:59 Intake Total 100 Balance 100 Weight 90.4 kg Intake: IV 100 Other: Voiding Method Toilet # Voids 9 4 # Bowel Movements 9 - Exam General appearance: The patient is alert, oriented, appears in no acute distress. HET: Head is normocephalic and atraumatic. Conjunctiva pink. Sclera anicteric. Neck: Supple without lymphadenopathy. Abdomen: Soft, nontender, nondistended with bowel sounds. No guarding or rigidity. Extremities: Normal skin color and turgor. No pedal edema Skin: No rashes, no jaundice Neurological: No focal deficits. Alert and oriented. - Constitutional Constitutional Comment(s): General appearance: The patient is alert, oriented, appears in no acute distre ss. HET: Head is normocephalic and atraumatic. Conjunctiva pink. Sclera anicteric. Neck: Supple without lymphadenopathy. Abdomen: Soft, nontender, nondistended with bowel sounds. No guarding or rigidity. Extremities: Normal skin color and turgor. No pedal edema Skin: No rashes, no jaundice Neurological: No focal deficits. Alert and oriented. - Labs CBC & Chem 7: 12/04/23 04:13 12/04/23 04:13 Labs: Abnormal Lab Results - Last 24 Hours (Table) 12/03/23 12/03/23 12/04/23 Range/Units 11:52 20:39 04:13 Hgb 11.4 L (12.0-15.0) g/dL MCH 24.4 L (27.0-32.0) pg MCHC 30.3 L (32.0-37.0) g/dL RDW 16.3 H (11.5-14.5) % BUN (9.0-27.0) mg/dL BUN/Creatinine Ratio (12.00-20.00) Ratio POC Glucose (mg/dL) 68 L 171 H (70-110) mg/dL Total Bilirubin (0.3-1.2) mg/dL Albumin/Globulin Ratio (1.60-3.17) Ratio 04/16/24 Range/Units 04:13 Hgb (12.0-15.0) g/dL MCH (27.0-32.0) pg MCHC (32.0-37.0) g/dL RDW (11.5-14.5) % BUN 5.1 L (9.0-27.0) mg/dL BUN/Creatinine Ratio 7.29 L (12.00-20.00) Ratio POC Glucose (mg/dL) (70-110) mg/dL Total Bilirubin 0.2 L (0.3-1.2) mg/dL Albumin/Globulin Ratio 1.52 L (1.60-3.17) Ratio Assessment and Plan (1) Diarrhea Narrative/Plan: 53-year-old female hospitalized for the past 20 days with ongoing diarrhea with unknown etiology. No history of Crohn's or colitis. Underwent both upper and lower endoscopy without any abnormal findings. Colonoscopy biopsies without any evidence of microscopic colitis. Symptoms began in September after she started clindamycin. Thought to have C. difficile colitis therefore she was started on vancomycin. Diarrhea just continued to get worse and has become so significant over the last 4 weeks duration. She has remained hospitalized with electrolyte imbalances. Only new medication patient started with Mounjaro but she has not been on that since she has been here. Unclear etiology of diarrhea. Will increase Imodium to 2 tablets 4 times a day. Continue with Bentyl 20 mg 4 times a day, would recommend Questran but patient states she did not tolerate that. Await ova and parasite stool culture. Celiac panel ordered as well. Current Visit: No Status: Acute Code(s): R19.7 - DIARRHEA, UNSPECIFIED SNOMED Code(s): 48115810 (2) Abdominal pain Current Visit: No Status: Acute Code(s): R10.9 - UNSPECIFIED ABDOMINAL PAIN SNOMED Code(s): 22826738 Plan: 1. Continue symptomatic and supportive care 2. Add Questran 3. Low fiber diet 4. Increase Imodium to 2 tablets 4 times a day 5. Continue Bentyl as ordered 6. Keep accurate I's and O's with stool output 7. Patient is status post upper and lower endoscopy. 8. Further recommendations forthcoming based on clinical course Thank you for this consultation, we will continue to follow. Dr. Anupam Joseph I agree with the dictator's note, documented as a scribe by Karely Rodriguez.
[2023-12-04 16:30] LABS: Glucose,Whole Blood 118 mg/dL (70-110)
[2023-12-04 20:53] LABS: Glucose,Whole Blood 117 mg/dL (70-110)
[2023-12-05 05:53] LABS: Glucose,Whole Blood 106 mg/dL (70-110)
[2023-12-05 07:39] VITALS: BP 96/68; PULSE 68; RESP 15; TEMP 97.6
[2023-12-05 08:56] LABS: Basophils # (A) 0.06 X 10*3/uL (0.00-0.10); Basophils % (A) 0.9 %; Eosinophils # (A) 0.25 X 10*3/uL (0.04-0.35); Eosinophils % (A) 3.8 %; HCT 37.2 % (37.2-46.3); HGB 11.1 g/dL (12.0-15.0); Lymphocytes # (A) 3.65 X 10*3/uL (0.90-5.00); Lymphocytes % (A) 55.9 %; MCH 24.3 pg (27.0-32.0); MCHC 29.8 g/dL (32.0-37.0); MCV 81.6 FL (80.0-97.0); Mean Platelet Volume 10.7 FL (9.5-12.2); Monocytes # (A) 0.79 X 10*3/uL (0.20-1.00); Monocytes % (A) 12.1 %; NRBC Per 100 WBC 0 X 10*3/uL (0.00-0.01); Neutrophils # (A) 1.77 X 10*3/uL (1.80-7.70); Neutrophils % (A) 27.1 %; Platelet Count 318 X 10*3/uL (140-440); RBC 4.56 X 10*6/uL (4.10-5.20); RDW 16.4 % (11.5-14.5); WBC 6.53 X 10*3/uL (4.50-10.00)
[2023-12-05 09:16] LABS: ALT 19 U/L (8-44); AST 28 U/L (13-35); Albumin 3.7 g/dL (3.8-4.9); Albumin/Globulin Ratio 1.61 Ratio (1.60-3.17); Alkaline Phosphatase 74 U/L (41-126); BUN/Creat Ratio 7.17 Ratio (12.00-20.00); Blood Urea Nitrogen 4.3 mg/dL (9.0-27.0); Calcium 8.8 mg/dL (8.7-10.3); Carbon Dioxide 23.4 mmol/L (21.6-31.8); Chloride 104 mmol/L (96-109); Globulin 2.3 g/dL (1.6-3.3); Glucose 101 mg/dL (70-110); Sodium 140 mmol/L (135-145); Total Bilirubin <0.2 mg/dL (0.3-1.2)
[2023-12-05 11:18] LABS: Glucose,Whole Blood 108 mg/dL (70-110)
--- NOTE | 2023-12-05 12:31 | P.PN ---
Subjective Progress Note Date: 12/05/23 Principal diagnosis: Diarrhea This is a pleasant 53-year-old female who presented to the emergency department with complaints of weakness and and diarrhea. Patient has had diarrhea ongoing since September however has progressively gotten worse over the last 3 weeks duration. Patient was admitted to this hospital on 11/16/2023. She had been complaining of diarrhea and abdominal cramping and discomfort. She had a CT of the abdomen pelvis with no significant interval change. No acute CT abnormality in the abdomen or pelvis. She reports that she was bitten by a dog on September 26, 2023. At that time she was started on clindamycin. Shortly after that she started having diarrhea. Diarrhea was getting worse they assumed patient had C. difficile and she was started on vancomycin Although C. difficile was negative. She states she continued to have diarrhea. When asked if she started any new medications only new medication was her Mounjaro which she states she started around middle to end of September. She reports having up to 18 bowel movements a day. Small to medium amount. Nonbloody. She had stool cultures which were negative, stool lactoferrin positive, stool cryptosporidium negative, stool Giardia antigen negative. Ova and parasites ordered however currently pending. During this hospitalization she did undergo colonoscopy with Dr. Contreras with findings of grade 1 internal hemorrhoids. Multiple biopsies were taken. Biopsy results show no microscopic colitis. 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 She was started on IV Rocephin and oral Flagyl on admission. Both have been discontinued. She has had a electrolyte replacement. She was started on Imodium, Bentyl and Questran. Patient states she had multiple doses of Questran but when she took it she had immediate diarrhea. 12/04/2023 Patient seen and examined today as a follow-up. States that she had about 17 bowel movements yesterday between 7 AM and 7 PM. She has had 3 bowel movements this morning. States they were still watery this morning however are starting to have a little more substance and formed to them. She was restarted on Questran. Denies any nausea or vomiting. Still has some lower abdominal cramping. Denies any fevers or chills. She has been afebrile. Celiac panel negative. 12/05/2023 Patient seen and examined sleeping in bed. She is easily arousable. States amount and frequency of stool is decreasing. Stools becoming more formed. No nausea or vomiting. Still has some mild lower abdominal cramping. Electrolytes remain normal. Patient is a collecting stool nursing is recording. Objective - Vital Signs Vital signs: Vital Signs Temp 97.6 F 12/05/23 07:06 Pulse 68 12/05/23 07:06 Resp 15 12/05/23 07:06 BP 96/68 12/05/23 07:06 Pulse Ox 91 L 12/05/23 07:06 FiO2 Intake & Output 12/04/23 12/05/23 12/05/23 18:59 06:59 18:59 Intake Total 120 Balance 120 Intake: Oral 120 Other: # Voids 5 1 # Bowel Movements 2 2 - Exam General appearance: The patient is alert, oriented, appears in no acute distress. HET: Head is normocephalic and atraumatic. Conjunctiva pink. Sclera anicteric. Neck: Supple without lymphadenopathy. Abdomen: Soft, nontender, nondistended with bowel sounds. No guarding or rigidity. Extremities: Normal skin color and turgor. No pedal edema Skin: No rashes, no jaundice Neurological: No focal deficits. Alert and oriented. - Labs CBC & Chem 7: 12/05/23 04:25 12/05/23 04:25 Labs: Abnormal Lab Results - Last 24 Hours (Table) 12/04/23 12/04/23 12/04/23 Range/Units 04:13 04:13 16:29 Hgb 11.4 L (12.0-15.0) g/dL MCH 24.4 L (27.0-32.0) pg MCHC 30.3 L (32.0-37.0) g/dL RDW 16.3 H (11.5-14.5) % BUN 5.1 L (9.0-27.0) mg/dL BUN/Creatinine Ratio 7.29 L (12.00-20.00) Ratio POC Glucose (mg/dL) 118 H (70-110) mg/dL Total Bilirubin 0.2 L (0.3-1.2) mg/dL Albumin/Globulin Ratio 1.52 L (1.60-3.17) Ratio 12/04/23 Range/Units 20:51 Hgb (12.0-15.0) g/dL MCH (27.0-32.0) pg MCHC (32.0-37.0) g/dL RDW (11.5-14.5) % BUN (9.0-27.0) mg/dL BUN/Creatinine Ratio (12.00-20.00) Ratio POC Glucose (mg/dL) 117 H (70-110) mg/dL Total Bilirubin (0.3-1.2) mg/dL Albumin/Globulin Ratio (1.60-3.17) Ratio Assessment and Plan (1) Diarrhea Narrative/Plan: 53-year-old female hospitalized for the past 20 days with ongoing diarrhea with unknown etiology. No history of Crohn's or colitis. Underwent both upper and lower endoscopy without any abnormal findings. Colonoscopy biopsies without any evidence of microscopic colitis. Symptoms began in September after she started clindamycin. Thought to have C. difficile colitis therefore she was started on vancomycin. Diarrhea just continued to get worse and has become so significant over the last 4 weeks duration. She has remained hospitalized with electrolyte imbalances. Only new medication patient started with Mounjaro but she has not been on that since she has been here. Unclear etiology of diarrhea. Will increase Imodium to 2 tablets 4 times a day. Continue with Bentyl 20 mg 4 times a day, would recommend Questran but patient states she did not tolerate that. Celiac panel ordered as well. With the increase in Imodium and addition of Questran patient's diarrhea is beginning to form and she is having less episodes of bowel movements. Electrolytes remain normal. Etiology of diarrhea remains unclear. Anticipate discharge in the next 24 to 48 hours. Current Visit: No Status: Acute Code(s): R19.7 - DIARRHEA, UNSPECIFIED SNOMED Code(s): 65860048 (2) Abdominal pain Current Visit: No Status: Acute Code(s): R10.9 - UNSPECIFIED ABDOMINAL PAIN SNOMED Code(s): 31114609 Plan: 1. Continue symptomatic and supportive care 2. Add Questran 3. Low fiber diet 4. Increase Imodium to 2 tablets 4 times a day 5. Continue Bentyl as ordered 6. Keep accurate I's and O's with stool output 7. Patient is status post upper and lower endoscopy. 8. Diarrhea improving. Electrolytes have been normal for several days now. Anticipate discharge in the next 24 to 48 hours Thank you for this consultation, we will continue to follow. Dr. Anupam Joseph I agree with the dictator's note, documented as a scribe by Karely Rodriguez.
--- NOTE | 2023-12-05 12:38 | P.DS ---
Providers Date of admission: 11/16/23 19:59 Expected date of discharge: 12/05/23 Attending physician: Bushra Elliott Consults: 11/19/23 13:55 Consult Physician Urgent Consulting Provider: Genet Agustin Consult Reason/Comments: leukocytosis Do you want consulting provider notified?: Yes 12/02/23 13:59 Consult Physician Routine Consulting Provider: Jaycee Joseph Consult Reason/Comments: Severe diarrhea 3 weeks Do you want consulting provider notified?: Yes, Notify in am 12/03/23 09:48 Consult Physician Routine Consulting Provider: Jaycee Joseph Consult Reason/Comments: Diarrhea, abdominal pain Do you want consulting provider notified?: Yes Primary care physician: Macy Knight Hospital Course: discharge diagnosis 1. persistent abdominal pain with nausea and diarrhea. CT of abdomen does not reveal any acute abnormality in the abdomen and pelvis. Patient was started on Flagyl and Rocephin. Stool positive for lactoferrin. patient maintained on Flagyl and Rocephin. Infectious disease and surgical services are following 2. Electively balance 3. Elevated liver enzymes 4. History of fibromyalgia 5. Diabetes mellitus type 2 6. History of hyperlipidemia 7. History of anxiety and depression status post colonoscopynegative for colitis status post EGD negative Hospital course this is a 53-year-old female patient of Dr. Knight who initially presented to ER with concerns of abdominal pain with nausea vomiting and diarrhea along with electrolyte imbalance. According to records patient originally presented [facility] on 11/11/2023 with complaints of nausea vomiting and diarrhea that has been going on for the past 2 weeks. Patient was treated with oral vancomycin for C. diff was discharged home. Patient returned with lack of improvement of symptoms. Patient has a past medical history of diabetes mellitus, asthma, hyperlipidemia, fibromyalgia. CT of abdomen and pelvis was negative for acute process patient was maintained on oral vancomycin. Dr. Nails group was covering we are resuming care patient on 11/26/2023 patient is alert and oriented 3. Patient still complaining about significant diarrhea abdomen is soft but tender to palpation. Infectious disease and surgical services are following. according to records patient'sWilliam with increased and patient started on Questran. Surgical services are following with possible thought of colonoscopy. Patient remains on Flagyl and Rocephin.patient denies chest pain. Patient denies nausea or vomiting. Patient denies any urinary burning or frequency. Current vital signs temp 98.2, heart rate 70, respiratory rate 16, blood pressure 127/85 pulse ox 98% on room air On 11/27/2023 patient is alert and oriented 3 still complaining of significant diarrhea. Plan for colonoscopy tomorrow for for 11/28/2023. current vital signs temp 98.3, heart rate 81, respiratory rate 18, blood pressure 108/74 with pulse ox 96%. Patient remains onFlagyl. Surgical services and infectious disease services are following on 11/28/2023 patient was seen and examined on the medical floor she is alert and oriented 3 in no apparent distress she is complaining of abdominal pain and cramping she is also complaining of vaginal itching today otherwise she denies any complaints there is no fever or chills no headache dizziness no chest pain no shortness of breath no cough no nausea or vomiting no diarrhea and no urinary symptoms. Patient underwent colonoscopy today, results reviewed with patient, will follow in a.m.. on 11/29/2023 patient was seen and examined on the medical floor she is alert and oriented in no apparent distress she is still complaining of abdominal pain and requesting more pain medications, at this time labs and colonoscopy report reviewed awaiting furtherculture results and recommendation from surgery and infectious disease, Will continue was current management On 11/30/2023 patient's alert and oriented 3. Bentyl as been increased per surgical services . Infectious disease and surgical services are following. Current vital signs temp 97.5, rate 82, respiratory rate 17, blood pressure 100/69 with pulse ox 95% Dr. Nails's group will be covering for 12/01/2023 to 12/02/2023 On 12/03/2023 patient is alert and oriented 3.patient continued to have multiple loose stools. Last few was negative for colitis. At this time GI services have been consulted. Current vital signs temp 98.0, heart rate 92, respiratory rate 18, blood pressure 107/70 with pulse of 95% on room air. Patient denies chest pain. Patient complaining of abdominal pain. Patient denies any urinary burning or frequency On 12/04/2023 patient's alert and oriented 3. Patient underwent EGD which was negative yesterday per surgical services. No further workup per surgery. GI services consulted for patient due to ongoing severe diarrhea. Lab work ordered including celiac panel. Bentyl and Imodium increased.patient sleeping comfortably at this time but does wake up and states she's having abdominal pain has been tolerating diet.current vital signs temp 97.6, heart rate 84, respiratory rate 15, blood pressure 98/65 with pulse ox 95% on room air On 12/04/2033 patient's alert and oriented 3. Patient will be DC'd home today. Per nursing notes patient had 2 formed stools throughout the night.patient will follow up with GI services outpatient. Patient will be DC'd on Bentyl, Questran, Imodium and Pepcid. At this time patient denies chest pain or shortness breath. Patient denies nausea vomiting or diarrhea. Patient denies any urinary burning or frequency Patient Condition at Discharge: Stable Plan - Discharge Summary New Discharge Prescriptions: New Dicyclomine [Bentyl] 20 mg PO QID 30 Days #240 cap Cholestyramine (with Sugar) [Questran Packet] 4 gm PO BID@1000,1800 30 Days #60 packet Loperamide [Imodium] 4 mg PO QID 7 Days #30 cap Famotidine [Pepcid] 40 mg PO DAILY 30 Days #60 tab Continue Cetirizine HCl [Zyrtec] 10 mg PO DAILY Mirtazapine [Remeron] 15 mg PO HS Propranolol HCl [Inderal Xl] 80 mg PO HS LORazepam [Ativan] 0.5 mg PO Q6H PRN PRN Reason: Anxiety metFORMIN HCL ER [Glucophage XR] 2,000 mg PO DAILY Rizatriptan Odt [Maxalt CAN STACKER] 10 mg PO TID PRN PRN Reason: Migraine Headache Furosemide [Lasix] 20 mg PO BID Simvastatin [Zocor] 80 mg PO HS Ondansetron Odt [Zofran ODT] 8 mg PO Q8HR PRN PRN Reason: Nausea Insulin Glargine,Hum.rec.anlog [Lantus Solostar Pen] 30 units SQ DAILY busPIRone HCL 15 mg PO BID Gabapentin 300 mg PO DAILY Escitalopram [Lexapro] 20 mg PO DAILY Ibuprofen [Motrin] 600 mg PO Q8HR PRN #30 tab PRN Reason: Pain Tirzepatide [Mounjaro] 5 mg SQ FR Gabapentin 600 mg PO HS Scopolamine 1 mg/72 Hr Patch [TransDerm Scop] 1 patch TRANSDERM Q72H PRN PRN Reason: Nausea And Vomiting Discontinued Vancomycin HCl [Vancocin HCl] 125 mg PO QID #40 cap Docusate Sodium [Dok] 100 mg PO DAILY lisinopriL [Zestril] 2.5 mg PO DAILY Discharge Medication List Cetirizine HCl [Zyrtec] 10 mg PO DAILY 06/13/18 [History] Mirtazapine [Remeron] 15 mg PO HS 10/08/18 [History] LORazepam [Ativan] 0.5 mg PO Q6H PRN 04/23/19 [History] Propranolol HCl [Inderal Xl] 80 mg PO HS 04/23/19 [History] Gabapentin 300 mg PO DAILY 02/28/22 [History] Rizatriptan Odt [Maxalt CAN STACKER] 10 mg PO TID PRN 02/28/22 [History] metFORMIN HCL ER [Glucophage XR] 2,000 mg PO DAILY 02/28/22 [History] Furosemide [Lasix] 20 mg PO BID 02/16/23 [History] Simvastatin [Zocor] 80 mg PO HS 02/28/23 [History] Escitalopram [Lexapro] 20 mg PO DAILY 03/21/23 [History] Ibuprofen [Motrin] 600 mg PO Q8HR PRN #30 tab 03/23/23 [Rx] Gabapentin 600 mg PO HS 11/17/23 [History] Insulin Glargine,Hum.rec.anlog [Lantus Solostar Pen] 30 units SQ DAILY 11/17/23 [History] Ondansetron Odt [Zofran ODT] 8 mg PO Q8HR PRN 11/17/23 [History] Scopolamine 1 mg/72 Hr Patch [TransDerm Scop] 1 patch TRANSDERM Q72H PRN 11/17/23 [History] Tirzepatide [Mounjaro] 5 mg SQ FR 11/17/23 [History] busPIRone HCL 15 mg PO BID 11/17/23 [History] Cholestyramine (with Sugar) [Questran Packet] 4 gm PO BID@1000,1800 30 Days #60 packet 12/05/23 [Rx] Dicyclomine [Bentyl] 20 mg PO QID 30 Days #240 cap 12/05/23 [Rx] Famotidine [Pepcid] 40 mg PO DAILY 30 Days #60 tab 12/05/23 [Rx] Loperamide [Imodium] 4 mg PO QID 7 Days #30 cap 12/05/23 [Rx] Follow up Appointment(s)/Referral(s): Macy Knight MD [Primary Care Provider] - 1-2 days Jaycee Joseph MD [STAFF PHYSICIAN] - 1 Week Activity/Diet/Wound Care/Special Instructions: activity as tolerated Diet low fiber
--- NOTE | 2023-12-06 13:05 | P.PN ---
Subjective Progress Note Date: 12/05/23 Principal diagnosis: Reason for follow-up is diarrhea questionably C. difficile Patient is a 53-year-old female with a past medical history significant for diabetes mellitus fibromyalgia hypertension reflux pneumonia asthma recently exposed antibiotic in the form of Augmentin for a tooth infection a week into taking the antibiotic the patient did develop significant diarrhea, present to the hospital with abdominal pain and diarrhea with CT on admission did not show any acute changes. On today's visit that is Patient is status post colonoscopy completed 11/28/2023 suggestive of microscopic colitis status post biopsy. On today's visit that is 12/05/2023, Patient is afebrile patient is currently on room air and denies having any shortness of breath, the patient denies any chest pain or cough, the patient still complaining of having abdominal pain and diarrhea however the nursing staff is reported to soft bowel movement since morning. Patient did have white count of 6.53, creatinine 0.6 Objective - Vital Signs Vital signs: Vital Signs Temp 97.6 F 12/05/23 07:06 Pulse 68 12/05/23 07:06 Resp 15 12/05/23 07:06 BP 96/68 12/05/23 07:06 Pulse Ox 91 L 12/05/23 07:06 FiO2 Intake & Output 12/04/23 12/05/23 12/05/23 18:59 06:59 18:59 Intake Total 120 Balance 120 Intake: Oral 120 Other: # Voids 5 1 # Bowel Movements 2 2 - Exam GENERAL DESCRIPTION: Middle-aged female lying in bed in no distress RESPIRATORY SYSTEM: Unlabored breathing , decreased breath sounds at bases HEART: S1 S2 regular rate and rhythm , ABDOMEN: Soft , mild lower abdominal tenderness EXTREMITIES: No edema feet - Labs CBC & Chem 7: 12/05/23 04:25 12/05/23 04:25 Labs: Abnormal Lab Results - Last 24 Hours (Table) 12/04/23 12/04/23 12/05/23 Range/Units 16:29 20:51 04:25 Hgb 11.1 L (12.0-15.0) g/dL MCH 24.3 L (27.0-32.0) pg MCHC 29.8 L (32.0-37.0) g/dL RDW 16.4 H (11.5-14.5) % Neutrophils # 1.77 L (1.80-7.70) X 10*3/uL Anion Gap (4.00-12.00) mmol/L BUN (9.0-27.0) mg/dL BUN/Creatinine Ratio (12.00-20.00) Ratio POC Glucose (mg/dL) 118 H 117 H (70-110) mg/dL Total Bilirubin (0.3-1.2) mg/dL Total Protein (6.2-8.2) g/dL Albumin (3.8-4.9) g/dL 12/05/23 Range/Units 04:25 Hgb (12.0-15.0) g/dL MCH (27.0-32.0) pg MCHC (32.0-37.0) g/dL RDW (11.5-14.5) % Neutrophils # (1.80-7.70) X 10*3/uL Anion Gap 12.60 H (4.00-12.00) mmol/L BUN 4.3 L (9.0-27.0) mg/dL BUN/Creatinine Ratio 7.17 L (12.00-20.00) Ratio POC Glucose (mg/dL) (70-110) mg/dL Total Bilirubin <0.2 L (0.3-1.2) mg/dL Total Protein 6.0 L (6.2-8.2) g/dL Albumin 3.7 L (3.8-4.9) g/dL Microbiology - Last 24 Hours (Table) 11/28/23 09:58 Stool Culture - Final Stool Assessment and Plan (1) Leukocytosis Status: Acute Code(s): D72.829 - ELEVATED WHITE BLOOD CELL COUNT, UNSPECIFIED SNOMED Code(s): 035165776 (2) Gastroenteritis Status: Acute Code(s): K52.9 - NONINFECTIVE GASTROENTERITIS AND COLITIS, UNSPECIFIED SNOMED Code(s): 08117411 Plan: 1patient presented to hospital with a lower abdominal pain in this patient who did have some tenderness and significant diarrhea patient has been exposed to antibiotic concern for possible C. difficile colitis versus other infectious colitis 2-stool for C. difficile is negative, Stool culture negative as well 3- patient remains to be afebrile white count is normal stool lactoferrin was positive stool culture x 2 has been negative, colonoscopy suggestive of microscopic colitis status post biopsy however biopsy did not show any evidence of microscopic colitis, patient advised symptomatic treatment and no need for antibiotic on discharge and she will follow-up with GI in the outpatient setting discussed with the nurse janaker who was working on discharge Dictation was produced using [employer] dictation software. please excuse any grammatical, word or spelling errors. Time with Patient: Less than 30
== END 2023-12-05 14:17 | disposition home or self-care (01) | DRG 249 ==
LOC: EC 16:33 → 4SSUR 19:59
PROVIDERS: ADMIT Internal Medicine; ATTEND Internal Medicine
PROC: 0DBE8ZX Excision of Large Intestine, Via Natural or Artificial Opening Endoscopic, Diagnostic (ICD-10-PCS; principal; 2023-11-28 11:30)
PROC: 0DJ08ZZ Inspection of Upper Intestinal Tract, Via Natural or Artificial Opening Endoscopic (ICD-10-PCS; 2023-12-03)
DX: K52.839 Microscopic colitis, unspecified (principal); D50.9 Iron deficiency anemia, unspecified; E03.9 Hypothyroidism, unspecified; E11.40 Type 2 diabetes mellitus with diabetic neuropathy, unspecified; E11.65 Type 2 diabetes mellitus with hyperglycemia; E66.01 Morbid (severe) obesity due to excess calories; I11.0 Hypertensive heart disease with heart failure; I50.9 Heart failure, unspecified; K22.10 Ulcer of esophagus without bleeding; J45.909 Unspecified asthma, uncomplicated; I95.9 Hypotension, unspecified; Z68.30 Body mass index [BMI] 30.0-30.9, adult; E78.5 Hyperlipidemia, unspecified; F32.A Depression, unspecified; E83.42 Hypomagnesemia; M17.0 Bilateral primary osteoarthritis of knee; M16.0 Bilateral primary osteoarthritis of hip; E86.0 Dehydration; E87.6 Hypokalemia; F41.1 Generalized anxiety disorder; G89.29 Other chronic pain; K21.9 Gastro-esophageal reflux disease without esophagitis; K56.7 Ileus, unspecified; K64.0 First degree hemorrhoids; R74.01 Elevation of levels of liver transaminase levels; M50.90 Cervical disc disorder, unspecified, unspecified cervical region; K44.9 Diaphragmatic hernia without obstruction or gangrene; G43.909 Migraine, unspecified, not intractable, without status migrainosus; M79.7 Fibromyalgia; H93.13 Tinnitus, bilateral; M50.30 Other cervical disc degeneration, unspecified cervical region; Z79.84 Long term (current) use of oral hypoglycemic drugs; Z98.84 Bariatric surgery status; Z79.4 Long term (current) use of insulin; Z79.899 Other long term (current) drug therapy; Z80.0 Family history of malignant neoplasm of digestive organs; Z82.49 Family history of ischemic heart disease and other diseases of the circulatory system; Z83.3 Family history of diabetes mellitus; Z85.41 Personal history of malignant neoplasm of cervix uteri; Z86.16 Personal history of COVID-19; Z86.73 Personal history of transient ischemic attack (TIA), and cerebral infarction without residual deficits; Z87.11 Personal history of peptic ulcer disease; Z86.010 Personal history of colon polyps; Z87.442 Personal history of urinary calculi; Z90.49 Acquired absence of other specified parts of digestive tract; Z90.710 Acquired absence of both cervix and uterus; Z88.1 Allergy status to other antibiotic agents; Z88.5 Allergy status to narcotic agent; Z98.1 Arthrodesis status; Z87.01 Personal history of pneumonia (recurrent); Z86.19 Personal history of other infectious and parasitic diseases; Z87.440 Personal history of urinary (tract) infections; Z90.79 Acquired absence of other genital organ(s)
CPT/HCPCS: 36415; 43235; 45380; 74177; 80048; 80053; 80076; 81001; 81003; 82150; 82272; 83036; 83516; 83605; 83630; 83690; 83735; 84100; 84132; 84145; 84425; 85025; 85027; 85610; 86140; 87045; 87046; 87324; 87328; 87329; 88305; 94760; 96361; 96365; 96375; 96376; 99285

== ENCOUNTER 2023-12-16 16:49 | Observation (INO) | payer OTHER ==
[2023-12-16] MEDS: ONDANSETRON 4 MG/2 ML VIAL IVP STA (17:41)
--- NOTE | 2023-12-16 17:41 | ED ---
Abdominal Pain HPI - General Chief Complaint: Abdominal Pain Stated Complaint: ABD pain Time Seen by Provider: 12/16/23 17:14 Source: patient, RN notes reviewed, old records reviewed Mode of arrival: ambulatory Limitations: no limitations - History of Present Illness Initial Comments: This is a 53-year-old female presents for recheck of abdominal pain diarrhea nausea no vomiting. Patient has not been feeling well again for a few days now and recently of inpatient hospitalization. Patient does have follow-up with GI going forward which she has not had appointment with GI. She is 2 weeks out with increasing worse symptoms, and she remains concern for ongoing GI illness MD Complaint: abdominal pain -: week(s) Location: diffuse, epigastric, suprapubic Radiation: epigastric, suprapubic Migration to: no migration Severity: moderate Severity scale (1-10): 4 Quality: cramping, aching Consistency: intermittent Improves With: nothing Worsens With: nothing Associated Symptoms: nausea, vomiting - Related Data Home Medications Medication Instructions Recorded Confirmed RX: Cetirizine HCl [Zyrtec] 10 mg PO DAILY 06/13/18 12/16/23 RX: Mirtazapine [Remeron] 15 mg PO HS 10/08/18 12/16/23 RX: LORazepam [Ativan] 0.5 mg PO Q6H PRN 04/23/19 12/16/23 RX: Propranolol HCl [Inderal Xl] 80 mg PO HS 04/23/19 12/16/23 RX: Gabapentin 300 mg PO DAILY 02/28/22 12/16/23 RX: Rizatriptan Odt [Maxalt [employer]ES OPERATIONS MANAGER] 10 mg PO TID PRN 02/28/22 12/16/23 RX: metFORMIN HCL ER [Glucophage 2,000 mg PO DAILY 02/28/22 12/16/23 XR] RX: Furosemide [Lasix] 20 mg PO BID 02/16/23 12/16/23 RX: Simvastatin [Zocor] 80 mg PO HS 02/28/23 12/16/23 RX: Escitalopram [Lexapro] 20 mg PO DAILY 03/21/23 12/16/23 RX: Gabapentin 600 mg PO HS 11/17/23 12/16/23 RX: Insulin Glargine,Hum.rec.anlog 30 units SQ DAILY 11/17/23 12/16/23 [Lantus Solostar Pen] RX: Ondansetron Odt [Zofran ODT] 8 mg PO Q8HR PRN 11/17/23 12/16/23 RX: Tirzepatide [Mounjaro] 5 mg SQ FR 11/17/23 12/16/23 RX: busPIRone HCL 15 mg PO BID 11/17/23 12/16/23 RX: Loperamide [Imodium] 4 mg PO QID PRN 12/16/23 12/16/23 Previous Rx's Medication Instructions Recorded RX: Ibuprofen [Motrin] 600 mg PO Q8HR PRN #30 tab 03/23/23 RX: Cholestyramine (with Sugar) 4 gm PO BID@1000,1800 30 Days #60 12/05/23 [Questran Packet] packet RX: Dicyclomine [Bentyl] 20 mg PO QID 30 Days #240 cap 12/05/23 RX: Famotidine [Pepcid] 40 mg PO DAILY 30 Days #60 tab 12/05/23 Allergies Allergy/AdvReac Type Severity Reaction Status Date / Time oxycodone [From Percocet] Allergy Unknown Swelling; Verified 12/16/23 18:11 (WAS ABLE TO TAKE ALONG WITH BENADRYL) apricot Allergy Dyspnea Verified 12/16/23 18:11 barium sulfate Allergy Anaphylaxis Verified 12/16/23 18:11 [From Readi-Cat] codeine Allergy Anaphylaxis Verified 12/16/23 18:11 fentanyl Allergy Rash/Hives Verified 12/16/23 18:11 hydrocodone [From Lortab] Allergy Swelling Verified 12/16/23 18:11 Iodinated Contrast Media Allergy Anaphylaxis Verified 12/16/23 18:11 iodine Allergy Rash/Hives Verified 12/16/23 18:11 iron Allergy Swelling Verified 12/16/23 18:11 levofloxacin [From Levaquin] Allergy Swelling Verified 12/16/23 18:11 morphine Allergy Rash/Hives, Verified 12/16/23 18:11 Nausea/Vomiting peach Allergy Swelling Verified 12/16/23 18:11 peanut Allergy Swelling Verified 12/16/23 18:11 peanut oil Allergy Anaphylaxis Verified 12/16/23 18:11 shellfish derived [Shellfish] Allergy Anaphylaxis Verified 12/16/23 18:11 strawberry Allergy Anaphylaxis Verified 12/16/23 18:11 sucralfate [From Carafate] Allergy Swelling Verified 12/16/23 18:11 Sulfa (Sulfonamide Allergy Anaphylaxis Verified 12/16/23 18:11 Antibiotics) sulfamethoxazole Allergy Anaphylaxis Verified 12/16/23 18:11 [From Bactrim] tree nut [Nut] Allergy Swelling Verified 12/16/23 18:11 trimethoprim [From Bactrim] Allergy Anaphylaxis Verified 12/16/23 18:11 metronidazole [From Flagyl] AdvReac Unknown Verified 12/16/23 18:11 Review of Systems ROS Statement: Those systems with pertinent positive or pertinent negative responses have been documented in the HPI. ROS Other: All systems not noted in ROS Statement are negative. Past Medical History Past Medical History: Asthma, Cancer, CVA/TIA, Diabetes Mellitus, Fibromyalgia, GERD/Reflux, Hyperlipidemia, Osteoarthritis (OA), Pneumonia Additional Past Medical History / Comment(s): Had Iron infusions in Apr 2019. Hx TIA 2015. Diabetic neuropathy eli feet, migraines, cervical disc disease, DDD, eli tinnitis, arthiritis bilateral shoulders, IBS, HX R arm fx yrs ago, R ovarian cyst, hiatal hernia, UTIs, urinary calculus, pancreatitis x 2, stomach ulcer. Hx cervical cancer. COVID 08/2020 History of Any Multi-Drug Resistant Organisms: C-DIFF Date of last positivie culture/infection: 2015 MDRO Source:: None Past Surgical History: Appendectomy, Bariatric Surgery, Cholecystectomy, Hysterectomy, Tonsillectomy Additional Past Surgical History / Comment(s): 2010 felix-en-Y, fistula repair 2011, 2011 gastric bypass revision, bowel resection, lap gastrojejunostomy anastamosis revision, EGD and colonoscopy, cone bx-cervical cancer removed with cryo, L fallopian tube removed due to cyst, picc line in and out, CERVICAL FUSION 12/21/16. Past Anesthesia/Blood Transfusion Reactions: Family History of Problems w/ Anesthesia, Motion Sickness, Postoperative Nausea & Vomiting (PONV) Additional Past Anesthesia/Blood Transfusion Reaction / Comment(s): Pt states she has never recieved blood. FAMILY HX PONV. Past Psychological History: Anxiety, Depression Smoking Status: Never smoker Past Alcohol Use History: None Reported Past Drug Use History: None Reported - Past Family History Brother(s) Family Medical History: Deep Vein Thrombosis (DVT) Father Family Medical History: Cancer, Deep Vein Thrombosis (DVT), Pulmonary Embolus Additional Family Medical History / Comment(s): Father had poss colon and lung cancer and at age 73yrs. Mother Family Medical History: Coronary Artery Disease (CAD), Diabetes Mellitus, Deep Vein Thrombosis (DVT), Hypertension, Pulmonary Embolus Additional Family Medical History / Comment(s): Mother is alive and 73 yrs old. General Exam Limitations: no limitations General appearance: alert, in no apparent distress Head exam: Present: atraumatic, normocephalic, normal inspection Eye exam: Present: normal appearance, PERRL, EOMI. Absent: scleral icterus, conjunctival injection, periorbital swelling ENT exam: Present: normal exam, mucous membranes moist Neck exam: Present: normal inspection. Absent: tenderness, meningismus, lymph adenopathy Respiratory exam: Present: normal lung sounds bilaterally. Absent: respiratory distress, wheezes, rales, rhonchi, stridor Cardiovascular Exam: Present: regular rate, normal rhythm, normal heart sounds. Absent: systolic murmur, diastolic murmur, rubs, gallop, clicks GI/Abdominal exam: Present: soft, normal bowel sounds. Absent: distended, tenderness, guarding, rebound, rigid Extremities exam: Present: normal inspection, full ROM, normal capillary refill. Absent: tenderness, pedal edema, joint swelling, calf tenderness Back exam: Present: normal inspection Neurological exam: Present: alert, oriented X3, CN II-XII intact Psychiatric exam: Present: normal affect, normal mood Skin exam: Present: warm, dry, intact, normal color. Absent: rash Course Vital Signs 12/16/23 12/16/23 17:10 19:44 Temperature 98.2 F 98.1 F Pulse Rate 94 85 Respiratory 18 18 Rate Blood Pressure 120/76 111/68 O2 Sat by Pulse 98 97 Oximetry - Reevaluation(s) Reevaluation #1: 12/16/23 17:41 Medical records reviewed Reevaluation #2: 12/16/23 17:41 Patient symptoms improved Reevaluation #3: 12/16/23 20:49 Patient informed of results and questions answered Reevaluation #4: 12/16/23 17:41 Was pt. sent in by a medical professional or institution (, PA, [employer], urgent care, hospital, or shelter...) When possible be specific @ -no Did you speak to anyone other than the patient for history (EMS, parent, family, police, friend...)? What history was obtained from this source @ -no Did you review nursing and triage notes (agree or disagree)? Why? @ -agree Are old charts reviewed (outside hosp., previous admission, EMS record, old EKG, old radiological studies, urgent care reports/EKG's, shelter records)? Report findings @ -yes Differential Diagnosis (chest pain, altered mental status, abdominal pain women, abdominal pain men, vaginal bleeding, weakness, fever, dyspnea, syncope, headache, dizziness, GI bleed, back pain, seizure, CVA, palpatations, mental health, musculoskeletal)? @ -prior EKG interpreted by me (3pts min.). @ -yes X-rays interpreted by me (1pt min.). @ -yes negative for acute disease CT interpreted by me (1pt min.). @ -no U/S interpreted by me (1pt. min.). @ -no What testing was considered but not performed or refused? (CT, X-rays, U/S, labs)? Why? @ -none What meds were considered but not given or refused? Why? @ -none Did you discuss the management of the patient with other professionals (professionals i.e. , PA, [employer], lab, RT, psych nurse, social sciences chair, chemical strength tester, teacher, fire management officer, major case detective)? Give summary @ -no Was smoking cessation discussed for >3mins.? @ -no Was critical care preformed (if so, how long)? @ -no Were there social determinants of health that impacted care today? How? (Homelessness, low income, unemployed, alcoholism, drug addiction, transportation, low edu. Level, literacy, decrease access to med. care, [facility], rehab)? @ -none Was there de-escalation of care discussed even if they declined (Discuss DNR or withdrawal of care, Hospice)? DNR status @ -no What co-morbidities impacted this encounter? (DM, HTN, Smoking, COPD, CAD, Cancer, CVA, ARF, Chemo, Hep., AIDS, mental health diagnosis, sleep apnea, morbid obesity)? @ -none Was patient admitted / discharged? Hospital course, mention meds given and route, prescriptions, significant lab abnormalities, going to OR and other pertinent info. @ - Undiagnosed new problem with uncertain prognosis? @ -no Drug Therapy requiring intensive monitoring for toxicity (Heparin, Nitro, Insulin, Cardizem)? @ -no Were any procedures done? @ -no Diagnosis/symptom? @ - Acute, or Chronic, or Acute on Chronic? @ -Acute Uncomplicated (without systemic symptoms) or Complicated (systemic symptoms)? @ -Complicated Side effects of treatment? @ -no Exacerbation, Progression, or Severe Exacerbation? @ -exacerbation Poses a threat to life or bodily function? How? (Chest pain, USA, CA, pneumonia, PE, COPD, DKA, ARF, appy, cholecystitis, CVA, Diverticulitis, Homicidal, Suicidal, threat to staff... and all critical care pts) @ -yes Reevaluation #5: Differential Abdominal Pain Women: Appendicitis, Cholecystitis, diverticulosis, ischemic bowel, pancreatitis, hepatitis, UTI, gastroenteritis, AAA, incarcerated hernia, bowel obstruction, co nstipation, inflammatory bowel, hepatitis, peptic ulcer disease, splenic infarction, perforated viscus, vulvitis, ovarian torsion, PID, kidney stone, placenta abruption, this is not meant to be an all-inclusive list - Consultations Consultation #1: Spoke with Dr. Elliott who agrees to admit this patient Medical Decision Making - Medical Decision Making 53 male to ER for evaluation patient presents today for evaluation of acute on chronic abdominal pain nausea vomiting and diarrhea persistent diarrhea and will admit for continued supportive care - Lab Data Result diagrams: 12/16/23 17:35 12/16/23 17:35 Lab Results 12/16/23 12/16/23 12/16/23 Range/Units 17:35 17:35 17:35 WBC 12.4 H (3.8-10.6) k/uL RBC 4.80 (3.80-5.40) m/uL Hgb 11.9 (11.4-16.0) gm/dL Hct 38.3 (34.0-46.0) % MCV 79.8 L (80.0-100.0) fL MCH 24.8 L (25.0-35.0) pg MCHC 31.1 (31.0-37.0) g/dL RDW 16.4 H (11.5-15.5) % Plt Count 407 (150-450) k/uL MPV 8.0 Neutrophils % 56 % Lymphocytes % 34 % Monocytes % 5 % Eosinophils % 2 % Basophils % 1 % Neutrophils # 6.9 (1.3-7.7) k/uL Lymphocytes # 4.2 (1.0-4.8) k/uL Monocytes # 0.7 (0-1.0) k/uL Eosinophils # 0.3 (0-0.7) k/uL Basophils # 0.1 (0-0.2) k/uL Hypochromasia Slight Anisocytosis Slight Microcytosis Slight PT 10.4 (10.0-12.5) sec INR 0.9 (<1.2) APTT 21.5 L (22.0-30.0) sec Sodium (137-145) mmol/L Potassium (3.5-5.1) mmol/L Chloride (98-107) mmol/L Carbon Dioxide (22-30) mmol/L Anion Gap mmol/L BUN (7-17) mg/dL Creatinine (0.52-1.04) mg/dL Est GFR (CKD-EPI)AfAm (>60 ml/min/1.73 sqM) Est GFR (CKD-EPI)NonAf (>60 ml/min/1.73 sqM) Glucose (74-99) mg/dL Plasma Lactic Acid Adam (0.7-2.0) mmol/L Calcium (8.4-10.2) mg/dL Phosphorus (2.5-4.5) mg/dL Magnesium (1.6-2.3) mg/dL Total Bilirubin (0.2-1.3) mg/dL AST (14-36) U/L ALT (4-34) U/L Alkaline Phosphatase (38-126) U/L Total Protein (6.3-8.2) g/dL Albumin (3.5-5.0) g/dL Amylase (30-110) U/L Lipase (23-300) U/L Urine Color Colorless Urine Appearance Clear (Clear) Urine pH 6.0 (5.0-8.0) Ur Specific Hammond 1.003 (1.001-1.035) Urine Protein Negative (Negative) Urine Glucose (UA) Negative (Negative) Urine Ketones Negative (Negative) Urine Blood Negative (Negative) Urine Nitrite Negative (Negative) Urine Bilirubin Negative (Negative) Urine Urobilinogen <2.0 (<2.0) mg/dL Ur Leukocyte Esterase Negative (Negative) 12/16/23 12/16/23 Range/Units 17:35 17:35 WBC (3.8-10.6) k/uL RBC (3.80-5.40) m/uL Hgb (11.4-16.0) gm/dL Hct (34.0-46.0) % MCV (80.0-100.0) fL MCH (25.0-35.0) pg MCHC (31.0-37.0) g/dL RDW (11.5-15.5) % Plt Count (150-450) k/uL MPV Neutrophils % % Lymphocytes % % Monocytes % % Eosinophils % % Basophils % % Neutrophils # (1.3-7.7) k/uL Lymphocytes # (1.0-4.8) k/uL Monocytes # (0-1.0) k/uL Eosinophils # (0-0.7) k/uL Basophils # (0-0.2) k/uL Hypochromasia Anisocytosis Microcytosis PT (10.0-12.5) sec INR (<1.2) APTT (22.0-30.0) sec Sodium 139 (137-145) mmol/L Potassium 4.2 (3.5-5.1) mmol/L Chloride 108 H (98-107) mmol/L Carbon Dioxide 18 L (22-30) mmol/L Anion Gap 13 mmol/L BUN 9 (7-17) mg/dL Creatinine 0.50 L (0.52-1.04) mg/dL Est GFR (CKD-EPI)AfAm >90 (>60 ml/min/1.73 sqM) Est GFR (CKD-EPI)NonAf >90 (>60 ml/min/1.73 sqM) Glucose 132 H (74-99) mg/dL Plasma Lactic Acid Adam 1.0 (0.7-2.0) mmol/L Calcium 9.3 (8.4-10.2) mg/dL Phosphorus 4.6 H (2.5-4.5) mg/dL Magnesium 1.4 L (1.6-2.3) mg/dL Total Bilirubin 0.5 (0.2-1.3) mg/dL AST 48 H (14-36) U/L ALT 32 (4-34) U/L Alkaline Phosphatase 82 (38-126) U/L Total Protein 7.6 (6.3-8.2) g/dL Albumin 4.4 (3.5-5.0) g/dL Amylase 56 (30-110) U/L Lipase 137 (23-300) U/L Urine Color Urine Appearance (Clear) Urine pH (5.0-8.0) Ur Specific Hammond (1.001-1.035) Urine Protein (Negative) Urine Glucose (UA) (Negative) Urine Ketones (Negative) Urine Blood (Negative) Urine Nitrite (Negative) Urine Bilirubin (Negative) Urine Urobilinogen (<2.0) mg/dL Ur Leukocyte Esterase (Negative) Disposition Clinical Impression: Dehydration, Acute vomiting, Gastroenteritis, Chronic pain syndrome Disposition: ADMITTED IP TO THIS [facility] Condition: Fair Is patient prescribed a controlled substance at d/c from ED?: No Referrals: Macy Knight MD [Primary Care Provider] - 1-2 days Time of Disposition: 20:40
[2023-12-16] MEDS: HYDROmorphone 1 MG/ML 1 ML SYRINGE IVP STA (17:42)
[2023-12-16] MEDS: PANTOPRAZOLE 40 MG/10 ML VIAL IVP STA (17:46)
[2023-12-16] MEDS: SODIUM CHLORIDE 0.9% 1,000 ML IV STA (17:47)
[2023-12-16 17:53] LABS: Appearance,Urine Clear (Clear); Bilirubin,Urine Negative (Negative); Blood,Urine Negative (Negative); Color,Urine Colorless; Glucose,Urine (UA) Negative (Negative); Ketones,Urine Negative (Negative); Leukocyte Esterase,Urine Negative (Negative); Nitrite,Urine Negative (Negative); Protein,Urine Negative (Negative); Specific Gravity,Urine 1.003 (1.001-1.035); Urobilinogen,Urine <2.0 mg/dL (<2.0)
[2023-12-16 18:04] LABS: Anisocytosis Slight; Basophils # (A) 0.1 k/uL (0-0.2); Basophils % (A) 1 %; Eosinophils # (A) 0.3 k/uL (0-0.7); Eosinophils % (A) 2 %; HCT 38.3 % (34.0-46.0); HGB 11.9 gm/dL (11.4-16.0); Hypochromasia Slight; Lymphocytes # (A) 4.2 k/uL (1.0-4.8); Lymphocytes % (A) 34 %; MCH 24.8 pg (25.0-35.0); MCHC 31.1 g/dL (31.0-37.0); MCV 79.8 fL (80.0-100.0); Microcytosis Slight; Monocytes # (A) 0.7 k/uL (0-1.0); Monocytes % (A) 5 %; Neutrophils # (A) 6.9 k/uL (1.3-7.7); Neutrophils % (A) 56 %; Platelet Count 407 k/uL (150-450); RDW 16.4 % (11.5-15.5); WBC 12.4 k/uL (3.8-10.6)
[2023-12-16 18:20] LABS: ALT 32 U/L (4-34); AST 48 U/L (14-36); African American GFR (CKD) >90 (>60 ml/min/1.73 sqM); Albumin 4.4 g/dL (3.5-5.0); Alkaline Phosphatase 82 U/L (38-126); Amylase 56 U/L (30-110); Anion Gap 13 mmol/L; Blood Urea Nitrogen 9 mg/dL (7-17); Calcium 9.3 mg/dL (8.4-10.2); Carbon Dioxide 18 mmol/L (22-30); Chloride 108 mmol/L (98-107); Glucose 132 mg/dL (74-99); Lipase 137 U/L (23-300); Magnesium 1.4 mg/dL (1.6-2.3); Non-African American GFR(CKD) >90 (>60 ml/min/1.73 sqM); Phosphorus 4.6 mg/dL (2.5-4.5); Potassium 4.2 mmol/L (3.5-5.1); Sodium 139 mmol/L (137-145); Total Bilirubin 0.5 mg/dL (0.2-1.3); Total Protein 7.6 g/dL (6.3-8.2)
[2023-12-16 18:44] LABS: INR 0.9 (<1.2); Prothrombin Time 10.4 sec (10.0-12.5)
[2023-12-16 18:53] LABS: Partial Thromboplastin Time 21.5 sec (22.0-30.0)
[2023-12-16] MEDS ORDERED: NALOXONE 0.4 MG/ML 1 ML VIAL IV PRN (20:46)
[2023-12-16] MEDS: HYDROmorphone 1 MG/ML 1 ML SYRINGE IVP PRN (21:17)
[2023-12-17 02:31] LABS: Glucose,Whole Blood 109 mg/dL (70-110)
[2023-12-17] MEDS ORDERED: ONDANSETRON ODT 8 MG TAB.RAPDIS PO PRN (09:23)
[2023-12-17] MEDS ORDERED: SUMAtriptan succinate 50 MG TAB PO PRN (09:23)
[2023-12-17] MEDS ORDERED: LORazepam 0.5 MG TAB PO PRN (09:23)
[2023-12-17] MEDS: ENOXAPARIN 40 MG/0.4 ML SYRINGE SQ SCH (10:43)
[2023-12-17] MEDS: PANTOPRAZOLE 40 MG/10 ML VIAL IV SCH (10:44)
[2023-12-17] MEDS: LOPERAMIDE 2 MG CAP PO PRN (10:44)
[2023-12-17] MEDS: FAMOTIDINE 20 MG TAB PO SCH (10:44)
[2023-12-17 12:28] LABS: Glucose,Whole Blood 111 mg/dL (70-110)
[2023-12-17] MEDS: CHOLESTYRAMINE (WITH SUGAR) 4 GM PACKET PO SCH (13:13)
[2023-12-17] MEDS: DICYCLOMINE 10 MG CAP PO SCH (13:15)
--- NOTE | 2023-12-17 13:56 | P.GSCN ---
History of Present Illness Consult date: 12/17/23 History of present illness: REASON FOR CONSULTATION: Abdominal pain with diarrhea HISTORY OF PRESENT ILLNESS: Bella Su is a 53-year-old female recently discharged from the hospital less than 3 to 4 weeks ago for chronic diarrhea and abdominal pain. Multiple diagnostic workup including upper and lower endoscopies were performed. No acute pathology was found. Patient has been followed by multiple providers including infectious disease for presumptive co litis of unclear etiology. Patient presents with abdominal cramping of the lower abdomen including chronic diarrhea. Patient reports she has not felt any better since discharge. She reports unintentional weight loss in the past 3+ weeks of 8 pounds. Additionally, patient has additional contacts having similar symptoms. PAST MEDICAL HISTORY: 1. Morbid obesity due to excess calories 2. Body mass index of 52.5 to 28.9 3. Asthma 4. Hyperlipidemia 5. Hypertensive heart disease 6. Osteoarthritis bilateral knees 7. Osteoarthritis bilateral hips 8. Osteoarthritis lower back 9. Pneumonia 10. Chronic iron deficiency anemia 11. Diabetes type 2 insulin-dependent 12. Diabetic neuropathy 13. Pancreatitis 14. History of cervical cancer 15. History of C. diff 16. Fibromyalgia 17. Gastroesophageal reflux disease 18. Transient ischemic attack 19. Depressive disorder 20. Generalized anxiety disorder 21. Congestive heart failure PAST SURGICAL HISTORY: 1. Appendectomy 2. Cholecystectomy 3. Hysterectomy 4. Tonsillectomy 5. Gastric bypass 6. Conversion gastric bypass to sleep gastric 7. Revision gastrojejunostomy 8. Status post bowel resection 9. Left salpingectomy 10. Cervical fusion HOME MEDICATIONS: Reviewed ALLERGIES: Reviewed SOCIAL HISTORY: Denies past tobacco use. FAMILY HISTORY: No family history of ulcerative colitis disease or Crohn's disease. Family history of morbid obesity. No lupus in the family. No reports of stomach or esophageal cancer. Family history colon cancer. REVIEW OF ORGAN SYSTEMS: CONSTITUTIONAL: At height of 5 feet 5 inches, her ideal body weight is 149 pounds. Highest weight 315 pounds, BMI 52.5. HEENT: Denies any active troubles with vision or hearing. Has troubles with swallowing. ENDOCRINE: Has diabetes. No hypothyroidism. CARDIOVASCULAR: Past reports of palpitations or heart attacks or chest pain. Has hypertensive heart disease. RESPIRATORY: Has daytime somnolence. Has asthma. Has chronic obstructive pu lmonary disease. GASTROINTESTINAL: Denies any bright red blood per rectum. Please see above. GENITOURINARY: Has bladder urgency. No recent blood in urine MUSCULOSKELETAL: Has lower back pain and joint pain. Has osteoarthritis of the knees. NEURO: No headaches. No seizure disorders. Has neuropathy. PSYCH: Has depression. No suicidal ideation. RHEUMATOLOGIC: No lupus. No rheumatoid arthritis. HEMATOLOGIC: Denies any abnormal bleeding or bruising. SKIN: No rash. No skin cancer. PHYSICAL EXAM: VITAL SIGNS: Height 5 foot 5 inches, weight 181 pounds. BMI 28.9 GENERAL: Well-developed in no acute distress. HEENT: No scleral icterus. Extraocular movements grossly intact. Hears con versational speech. No nasal drainage. NECK: Supple without lymphadenopathy. CHEST: Nonlabored respirations with equal bilateral excursions. CARDIOVASCULAR: Regular rate and regular rhythm. Distal 2+ pulses. ABDOMEN: Mild generalized tenderness. No peritonitis. MUSCULOSKELETAL: No clubbing, cyanosis. NEURO: No focal or lateralizing signs. Cranial nerves 2 through 12 grossly within normal limits. PSYCH: Appropriate affect. Alert and oriented to person, place and time. SKIN: Good skin turgor. Well perfused. LABS: Reviewed. WBC elevated over 12,000. Potassium within normal limits. PATHOLOGY: Benign colon mucosa without microscopic colitis ASSESSMENT: 1. Generalized abdominal pain with chronic diarrhea 2. Hypokalemia 3. Hypomagnesia 4. Hyperlipidemia 5. Hypertensive heart disease 6. Osteoarthritis bilateral knees 7. Osteoarthritis bilateral hips 8. Osteoarthritis lower back 9. Pneumonia 10. Chronic iron deficiency anemia 11. Diabetes type 2 insulin-dependent, uncontrolled 12. Diabetic neuropathy 13. Pancreatitis 14. History of cervical cancer 15. History of C. diff 16. Fibromyalgia 17. Gastroesophageal reflux disease 18. Transient ischemic attack 19. Depressive disorder 20. Generalized anxiety disorder 21. Congestive heart failure 22. Vitamin D deficiency 23. Hypothyroidism 24. Anemia 25. Colon cancer, family 26. Morbid obesity due to excess calories 27. Body mass index of 52.5 to 32.9 28. Asthma PLAN: 1. Patient is a complicated course of chronic diarrhea ongoing for now 2 months. She does also confirm exposure to other contacts with similar symptoms. 2. No additional surgical invention. Recommend consultation to GI for managem ent of chronic diarrhea. 3. Monitor electrolytes due to chronic fluid losses. 4. Recommend low fiber diet. Past Medical History Past Medical History: Asthma, Cancer, CVA/TIA, Diabetes Mellitus, Fibromyalgia, GERD/Reflux, Hyperlipidemia, Osteoarthritis (OA), Pneumonia Additional Past Medical History / Comment(s): Had Iron infusions in Apr 2019. Hx TIA 2016. Diabetic neuropathy eli feet, migraines, cervical disc disease, DDD, eli tinnitis, arthiritis bilateral shoulders, IBS, HX R arm fx yrs ago, R ovarian cyst, hiatal hernia, UTIs, urinary calculus, pancreatitis x 2, stomach ulcer. Hx cervical cancer. COVID 08/2020 History of Any Multi-Drug Resistant Organisms: None Reported, C-DIFF Year Discovered:: 2015 MDRO Source:: None Past Surgical History: Appendectomy, Bariatric Surgery, Cholecystectomy, Hysterectomy, Tonsillectomy Additional Past Surgical History / Comment(s): 2010 felix-en-Y, fistula repair 2011, 2011 gastric bypass revision, bowel resection, lap gastrojejunostomy anastamosis revision, EGD and colonoscopy, cone bx-cervical cancer removed with cryo, L fallopian tube removed due to cyst, picc line in and out, CERVICAL FUSION 12/21/16. Past Anesthesia/Blood Transfusion Reactions: Family History of Problems w/ Anesthesia, Motion Sickness, Postoperative Nausea & Vomiting (PONV) Additional Past Anesthesia/Blood Transfusion Reaction / Comm: Pt states she has never recieved blood. FAMILY HX PONV. Past Psychological History: Anxiety, Depression Additional Psychological History / Comment(s): Pt lives with her significant other-common law . Smoking Status: Never smoker Past Alcohol Use History: None Reported Past Drug Use History: None Reported Additional Drug Use History / Comment(s): Pt has a medical marijuana card and tried using it for pain control but it makes her nauseated so she does not use marijuana at all. - Past Family History Brother(s) History Unknown: Yes Family Medical History: Deep Vein Thrombosis (DVT) Father Family Medical History: Cancer, Deep Vein Thrombosis (DVT), Pulmonary Embolus Additional Family Medical History / Comment(s): Father had poss colon and lung cancer and at age 73yrs. Mother History Unknown: Yes Family Medical History: Coronary Artery Disease (CAD), Diabetes Mellitus, Deep Vein Thrombosis (DVT), Hypertension, Pulmonary Embolus Additional Family Medical History / Comment(s): Mother is alive and 73 yrs old. Medications and Allergies Home Medications Medication Instructions Recorded Confirmed Type Cetirizine HCl [Zyrtec] 10 mg PO DAILY 06/13/18 12/16/23 History Mirtazapine [Remeron] 15 mg PO HS 10/08/18 12/16/23 History LORazepam [Ativan] 0.5 mg PO Q6H PRN 04/23/19 12/16/23 History Propranolol HCl [Inderal Xl] 80 mg PO HS 04/23/19 12/16/23 History Gabapentin 300 mg PO DAILY 02/28/22 12/16/23 History Rizatriptan Odt [Maxalt [employer]OPER[employer]IVE EDUCATION DIRECTOR] 10 mg PO TID PRN 02/28/22 12/16/23 History metFORMIN HCL ER [Glucophage XR] 2,000 mg PO DAILY 02/28/22 12/16/23 History Furosemide [Lasix] 20 mg PO BID 02/16/23 12/16/23 History Simvastatin [Zocor] 80 mg PO HS 02/28/23 12/16/23 History Escitalopram [Lexapro] 20 mg PO DAILY 03/21/23 12/16/23 History Ibuprofen [Motrin] 600 mg PO Q8HR PRN #30 tab 03/23/23 12/16/23 Rx Gabapentin 600 mg PO HS 11/17/23 12/16/23 History Insulin Glargine,Hum.rec.anlog 30 units SQ DAILY 11/17/23 12/16/23 History [Lantus Solostar Pen] Ondansetron Odt [Zofran ODT] 8 mg PO Q8HR PRN 11/17/23 12/16/23 History Tirzepatide [Mounjaro] 5 mg SQ FR 11/17/23 12/16/23 History busPIRone HCL 15 mg PO BID 11/17/23 12/16/23 History Cholestyramine (with Sugar) 4 gm PO BID@1000,1800 30 Days #60 12/05/23 12/16/23 Rx [Questran Packet] packet Dicyclomine [Bentyl] 20 mg PO QID 30 Days #240 cap 12/05/23 12/16/23 Rx Famotidine [Pepcid] 40 mg PO DAILY 30 Days #60 tab 12/05/23 12/16/23 Rx Loperamide [Imodium] 4 mg PO QID PRN 12/16/23 12/16/23 History Allergies Allergy/AdvReac Type Severity Reaction Status Date / Time oxycodone [From Percocet] Allergy Unknown Swelling; Verified 12/16/23 18:11 (WAS ABLE TO TAKE ALONG WITH BENADRYL) apricot Allergy Dyspnea Verified 12/16/23 18:11 barium sulfate Allergy Anaphylaxis Verified 12/16/23 18:11 [From Readi-Cat] codeine Allergy Anaphylaxis Verified 12/16/23 18:11 fentanyl Allergy Rash/Hives Verified 12/16/23 18:11 hydrocodone [From Lortab] Allergy Swelling Verified 12/16/23 18:11 Iodinated Contrast Media Allergy Anaphylaxis Verified 12/16/23 18:11 iodine Allergy Rash/Hives Verified 12/16/23 18:11 iron Allergy Swelling Verified 12/16/23 18:11 levofloxacin [From Levaquin] Allergy Swelling Verified 12/16/23 18:11 morphine Allergy Rash/Hives, Verified 12/16/23 18:11 Nausea/Vomiting peach Allergy Swelling Verified 12/16/23 18:11 peanut Allergy Swelling Verified 12/16/23 18:11 peanut oil Allergy Anaphylaxis Verified 12/16/23 18:11 shellfish derived [Shellfish] Allergy Anaphylaxis Verified 12/16/23 18:11 strawberry Allergy Anaphylaxis Verified 12/16/23 18:11 sucralfate [From Carafate] Allergy Swelling Verified 12/16/23 18:11 Sulfa (Sulfonamide Allergy Anaphylaxis Verified 12/16/23 18:11 Antibiotics) sulfamethoxazole Allergy Anaphylaxis Verified 12/16/23 18:11 [From Bactrim] tree nut [Nut] Allergy Swelling Verified 12/16/23 18:11 trimethoprim [From Bactrim] Allergy Anaphylaxis Verified 12/16/23 18:11 metronidazole [From Flagyl] AdvReac Unknown Verified 12/16/23 18:11 Surgical - Exam Vital Signs Temp Pulse Resp BP Pulse Ox 98.2 F 94 18 120/76 98 12/16/23 17:10 12/16/23 17:10 12/16/23 17:10 12/16/23 17:10 12/16/23 17:10 Results - Labs 12/16/23 17:35 12/16/23 17:35 Abnormal Lab Results - Last 24 Hours (Table) 12/16/23 12/16/23 12/16/23 Range/Units 17:35 17:35 17:35 WBC 12.4 H (3.8-10.6) k/uL MCV 79.8 L (80.0-100.0) fL MCH 24.8 L (25.0-35.0) pg RDW 16.4 H (11.5-15.5) % APTT 21.5 L (22.0-30.0) sec Chloride 108 H (98-107) mmol/L Carbon Dioxide 18 L (22-30) mmol/L Creatinine 0.50 L (0.52-1.04) mg/dL Glucose 132 H (74-99) mg/dL POC Glucose (mg/dL) (70-110) mg/dL Phosphorus 4.6 H (2.5-4.5) mg/dL Magnesium 1.4 L (1.6-2.3) mg/dL AST 48 H (14-36) U/L 12/17/23 Range/Units 12:27 WBC (3.8-10.6) k/uL MCV (80.0-100.0) fL MCH (25.0-35.0) pg RDW (11.5-15.5) % APTT (22.0-30.0) sec Chloride (98-107) mmol/L Carbon Dioxide (22-30) mmol/L Creatinine (0.52-1.04) mg/dL Glucose (74-99) mg/dL POC Glucose (mg/dL) 111 H (70-110) mg/dL Phosphorus (2.5-4.5) mg/dL Magnesium (1.6-2.3) mg/dL AST (14-36) U/L Diabetes panel 12/16/23 Range/Units 17:35 Sodium 139 (137-145) mmol/L Potassium 4.2 (3.5-5.1) mmol/L Chloride 108 H (98-107) mmol/L Carbon Dioxide 18 L (22-30) mmol/L BUN 9 (7-17) mg/dL Creatinine 0.50 L (0.52-1.04) mg/dL Glucose 132 H (74-99) mg/dL Calcium 9.3 (8.4-10.2) mg/dL AST 48 H (14-36) U/L ALT 32 (4-34) U/L Alkaline Phosphatase 82 (38-126) U/L Total Protein 7.6 (6.3-8.2) g/dL Albumin 4.4 (3.5-5.0) g/dL Calcium panel 12/16/23 Range/Units 17:35 Calcium 9.3 (8.4-10.2) mg/dL Phosphorus 4.6 H (2.5-4.5) mg/dL Albumin 4.4 (3.5-5.0) g/dL Pituitary panel 12/16/23 Range/Units 17:35 Sodium 139 (137-145) mmol/L Potassium 4.2 (3.5-5.1) mmol/L Chloride 108 H (98-107) mmol/L Carbon Dioxide 18 L (22-30) mmol/L BUN 9 (7-17) mg/dL Creatinine 0.50 L (0.52-1.04) mg/dL Glucose 132 H (74-99) mg/dL Calcium 9.3 (8.4-10.2) mg/dL Adrenal panel 12/16/23 Range/Units 17:35 Sodium 139 (137-145) mmol/L Potassium 4.2 (3.5-5.1) mmol/L Chloride 108 H (98-107) mmol/L Carbon Dioxide 18 L (22-30) mmol/L BUN 9 (7-17) mg/dL Creatinine 0.50 L (0.52-1.04) mg/dL Glucose 132 H (74-99) mg/dL Calcium 9.3 (8.4-10.2) mg/dL Total Bilirubin 0.5 (0.2-1.3) mg/dL AST 48 H (14-36) U/L ALT 32 (4-34) U/L Alkaline Phosphatase 82 (38-126) U/L Total Protein 7.6 (6.3-8.2) g/dL Albumin 4.4 (3.5-5.0) g/dL
[2023-12-17] MEDS: INSULIN DETEMIR (LEVEMIR) 100 UNIT/ML SYR SQ SCH (13:59)
[2023-12-17 14:25] LABS: Basophils # (A) 0.08 X 10*3/uL (0.00-0.10); Basophils % (A) 0.8 %; Eosinophils # (A) 0.28 X 10*3/uL (0.04-0.35); Eosinophils % (A) 2.8 %; HGB 10.9 g/dL (12.0-15.0); Lymphocytes # (A) 4.69 X 10*3/uL (0.90-5.00); Lymphocytes % (A) 46.3 %; MCH 24.4 pg (27.0-32.0); MCHC 30.3 g/dL (32.0-37.0); MCV 80.7 FL (80.0-97.0); Mean Platelet Volume 10.6 FL (9.5-12.2); Monocytes # (A) 0.77 X 10*3/uL (0.20-1.00); Monocytes % (A) 7.6 %; NRBC Per 100 WBC 0 X 10*3/uL (0.00-0.01); Neutrophils # (A) 4.26 X 10*3/uL (1.80-7.70); Neutrophils % (A) 42.1 %; Platelet Count 407 X 10*3/uL (140-440); RBC 4.46 X 10*6/uL (4.10-5.20); RDW 16.3 % (11.5-14.5); WBC 10.12 X 10*3/uL (4.50-10.00)
[2023-12-17 15:18] LABS: ALT 28 U/L (8-44); AST 34 U/L (13-35); Albumin 4.1 g/dL (3.8-4.9); Albumin/Globulin Ratio 1.58 Ratio (1.60-3.17); Alkaline Phosphatase 85 U/L (41-126); Blood Urea Nitrogen 9.1 mg/dL (9.0-27.0); Calcium 9.2 mg/dL (8.7-10.3); Carbon Dioxide 22.4 mmol/L (21.6-31.8); Chloride 103 mmol/L (96-109); Globulin 2.6 g/dL (1.6-3.3); Glucose 111 mg/dL (70-110); Magnesium 1.7 mg/dL (1.5-2.4); Phosphorus 4.6 mg/dL (2.4-5.1); Potassium 4.2 mmol/L (3.5-5.5); Sodium 143 mmol/L (135-145); Total Bilirubin 0.3 mg/dL (0.3-1.2); Total Protein 6.7 g/dL (6.2-8.2)
--- NOTE | 2023-12-17 15:29 | P.CONS ---
History of Present Illness - Reason for Consult Consult date: 12/17/23 Diarrhea Requesting physician: Osiris Contreras - Chief Complaint Diarrhea, abdominal pain - History of Present Illness This is a pleasant 53-year-old female who was recently hospitalized for ongoing diarrhea, nausea vomiting and lower abdominal pain. Patient has had diarrhea ongoing since September however has progressively had gotten worse over the last 3-4 weeks duration. Patient was admitted to this hospital on 11/16/2023 and discharged on 12/05/2023. She had been complaining of diarrhea and abdominal cramping and discomfort. She had a CT of the abdomen pelvis with no significant interval change. No acute CT abnormality in the abdomen or pelvis. She reports that she was bitten by a dog on September 26, 2023. At that time she was started on clindamycin. Shortly after that she started having diarrhea. Diarrhea was getting worse they assumed patient had C. difficile and she was started on vancomycin Although C. difficile was negative. She states she continued to have diarrhea. When asked if she started any new medications only new medication was her Mounjaro which she states she started around middle to end of September. She reports having up to 18 bowel movements a day. Small to medium amount. Nonbloody. She had stool cultures which were negative, stool lactoferrin positive, stool cryptosporidium negative, stool Giardia antigen negative. Ova and parasites ordered however currently pending. During her last hospitalization she did undergo colonoscopy on 11/28/[address] Contreras with findings of grade 1 internal hemorrhoids. Multiple biopsies were taken. Biopsy results show no microscopic colitis. T she also underwent upper endoscopy with Dr. 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 She was started on IV Rocephin and oral Flagyl on admission. She was started on Imodium, Bentyl and Questran during her last hospitalization and recommendation was to be discharged on the medications. It was recommended that she take Questran twice a day, continue with Bentyl 20 mg 4 times a day and Imodium was increased to 2 tablets which is 4 mg 4 times a day. She states that her diarrhea never subsided. She still has loose stools they were never formed she did decrease in the amount however she states she started having abdominal pain followed by increased bowel movements. States that she had 9 loose nonbloody bowel movements yesterda y. She has had 2 bowel movements today. Patient states she has only been taking her Questran only once a day. Abdominal pain improved today, no nausea or vomiting. Review of Systems REVIEW OF SYSTEMS: CARDIOPULMONARY: No chest pain or shortness of breath. Gastrointestinal: Abdominal cramping. No nausea or vomiting. No hematemesis, coffee-ground emesis. Loose stools, 8-10 a day. No rectal bleeding, or melena. GENITOURINARY: No dysuria or hematuria. MUSCULOSKELETAL: Reports normal range of motion., Joint pain. SKIN: No rashes. No jaundice. ENDOCRINE: No chills, fevers. No excessive weight gain or loss. No polydipsia or polyuria. PSYCHIATRIC: Unremarkable. NEUROLOGY: No change in mental status. Denies dizziness, headache. ENT: Vision unremarkable. CONSTITUTIONAL: No recent weight loss. No fever, chills, night sweats. Past Medical History Past Medical History: Asthma, Cancer, CVA/TIA, Diabetes Mellitus, Fibromyalgia, GERD/Reflux, Hyperlipidemia, Osteoarthritis (OA), Pneumonia Additional Past Medical History / Comment(s): Had Iron infusions in Apr 2019. Hx TIA 2016. Diabetic neuropathy eli feet, migraines, cervical disc disease, DDD, eli tinnitis, arthiritis bilateral shoulders, IBS, HX R arm fx yrs ago, R ovarian cyst, hiatal hernia, UTIs, urinary calculus, pancreatitis x 2, stomach ulcer. Hx cervical cancer. COVID 08/2020 History of Any Multi-Drug Resistant Organisms: None Reported, C-DIFF Year Discovered:: 2016 MDRO Source:: None Past Surgical History: Appendectomy, Bariatric Surgery, Cholecystectomy, Hysterectomy, Tonsillectomy Additional Past Surgical History / Comment(s): 2010 felix-en-Y, fistula repair 2011, 2011 gastric bypass revision, bowel resection, lap gastrojejunostomy anastamosis revision, EGD and colonoscopy, cone bx-cervical cancer removed with cryo, L fallopian tube removed due to cyst, picc line in and out, CERVICAL FUSION 12/21/16. Past Anesthesia/Blood Transfusion Reactions: Family History of Problems w/ Anesthesia, Motion Sickness, Postoperative Nausea & Vomiting (PONV) Additional Past Anesthesia/Blood Transfusion Reaction / Comm: Pt states she has never recieved blood. FAMILY HX PONV. Past Psychological History: Anxiety, Depression Additional Psychological History / Comment(s): Pt lives with her significant other-common law . Smoking Status: Never smoker Past Alcohol Use History: None Reported Past Drug Use History: None Reported Additional Drug Use History / Comment(s): Pt has a medical marijuana card and tried using it for pain control but it makes her nauseated so she does not use marijuana at all. - Past Family History Brother(s) History Unknown: Yes Family Medical History: Deep Vein Thrombosis (DVT) Father Family Medical History: Cancer, Deep Vein Thrombosis (DVT), Pulmonary Embolus Additional Family Medical History / Comment(s): Father had poss colon and lung cancer and at age 73yrs. Mother History Unknown: Yes Family Medical History: Coronary Artery Disease (CAD), Diabetes Mellitus, Deep Vein Thrombosis (DVT), Hypertension, Pulmonary Embolus Additional Family Medical History / Comment(s): Mother is alive and 73 yrs old. Medications and Allergies Home Medications Medication Instructions Recorded Confirmed Type Cetirizine HCl [Zyrtec] 10 mg PO DAILY 06/13/18 12/16/23 History Mirtazapine [Remeron] 15 mg PO HS 10/08/18 12/16/23 History LORazepam [Ativan] 0.5 mg PO Q6H PRN 04/23/19 12/16/23 History Propranolol HCl [Inderal Xl] 80 mg PO HS 04/23/19 12/16/23 History Gabapentin 300 mg PO DAILY 02/28/22 12/16/23 History Rizatriptan Odt [Maxalt TRUSS ASSEMBLER] 10 mg PO TID PRN 02/28/22 12/16/23 History metFORMIN HCL ER [Glucophage XR] 2,000 mg PO DAILY 02/28/22 12/16/23 History Furosemide [Lasix] 20 mg PO BID 02/16/23 12/16/23 History Simvastatin [Zocor] 80 mg PO HS 02/28/23 12/16/23 History Escitalopram [Lexapro] 20 mg PO DAILY 03/21/23 12/16/23 History Ibuprofen [Motrin] 600 mg PO Q8HR PRN #30 tab 03/23/23 12/16/23 Rx Gabapentin 600 mg PO HS 11/17/23 12/16/23 History Insulin Glargine,Hum.rec.anlog 30 units SQ DAILY 11/17/23 12/16/23 History [Lantus Solostar Pen] Ondansetron Odt [Zofran ODT] 8 mg PO Q8HR PRN 11/17/23 12/16/23 History Tirzepatide [Mounjaro] 5 mg SQ FR 11/17/23 12/16/23 History busPIRone HCL 15 mg PO BID 11/17/23 12/16/23 History Cholestyramine (with Sugar) 4 gm PO BID@1000,1800 30 Days #60 12/05/23 12/16/23 Rx [Questran Packet] packet Dicyclomine [Bentyl] 20 mg PO QID 30 Days #240 cap 12/05/23 12/16/23 Rx Famotidine [Pepcid] 40 mg PO DAILY 30 Days #60 tab 12/05/23 12/16/23 Rx Loperamide [Imodium] 4 mg PO QID PRN 12/16/23 12/16/23 History Allergies Allergy/AdvReac Type Severity Reaction Status Date / Time oxycodone [From Percocet] Allergy Unknown Swelling; Verified 12/16/23 18:11 (WAS ABLE TO TAKE ALONG WITH BENADRYL) apricot Allergy Dyspnea Verified 12/16/23 18:11 barium sulfate Allergy Anaphylaxis Verified 12/16/23 18:11 [From Readi-Cat] codeine Allergy Anaphylaxis Verified 12/16/23 18:11 fentanyl Allergy Rash/Hives Verified 12/16/23 18:11 hydrocodone [From Lortab] Allergy Swelling Verified 12/16/23 18:11 Iodinated Contrast Media Allergy Anaphylaxis Verified 12/16/23 18:11 iodine Allergy Rash/Hives Verified 12/16/23 18:11 iron Allergy Swelling Verified 12/16/23 18:11 levofloxacin [From Levaquin] Allergy Swelling Verified 12/16/23 18:11 morphine Allergy Rash/Hives, Verified 12/16/23 18:11 Nausea/Vomiting peach Allergy Swelling Verified 12/16/23 18:11 peanut Allergy Swelling Verified 12/16/23 18:11 peanut oil Allergy Anaphylaxis Verified 12/16/23 18:11 shellfish derived [Shellfish] Allergy Anaphylaxis Verified 12/16/23 18:11 strawberry Allergy Anaphylaxis Verified 12/16/23 18:11 sucralfate [From Carafate] Allergy Swelling Verified 12/16/23 18:11 Sulfa (Sulfonamide Allergy Anaphylaxis Verified 12/16/23 18:11 Antibiotics) sulfamethoxazole Allergy Anaphylaxis Verified 12/16/23 18:11 [From Bactrim] tree nut [Nut] Allergy Swelling Verified 12/16/23 18:11 trimethoprim [From Bactrim] Allergy Anaphylaxis Verified 12/16/23 18:11 metronidazole [From Flagyl] AdvReac Unknown Verified 12/16/23 18:11 Physical Exam Vitals: Vital Signs Temp Pulse Pulse Resp BP BP Pulse Ox 12/17/23 08:00 98.2 F 82 16 118/80 98 12/17/23 04:47 97.8 F 90 17 107/71 98 12/17/23 03:30 56 L 12 90/54 97 12/17/23 02:30 76 18 118/80 97 12/17/23 01:00 85 18 114/80 97 12/16/23 21:20 90 17 112/82 97 12/16/23 19:44 98.1 F 85 18 111/68 97 12/16/23 17:10 98.2 F 94 18 120/76 98 Intake and Output 12/16/23 12/17/23 12/17/23 22:59 06:59 14:59 Other: Weight 86.183 kg 86.183 kg General appearance: The patient is alert, oriented, appears in no acute distress. HET: Head is normocephalic and atraumatic. Conjunctiva pink. Sclera anicteric. Neck: Supple without lymphadenopathy. Trachea midline. Heart: Regular. Lungs: Equal expansion, normal respiratory effort. Abdomen: Soft, nontender, nondistended. Skin: No rashes. No jaundice. Extremities: Normal skin color and turgor. No pedal edema. Neurological: No focal deficits. Alert and oriented x3. Results CBC & Chem 7: 12/17/23 07:51 12/16/23 17:35 Labs: Abnormal Lab Results - Last 24 Hours (Table) 12/16/23 12/16/23 12/16/23 Range/Units 17:35 17:35 17:35 WBC 12.4 H (3.8-10.6) k/uL MCV 79.8 L (80.0-100.0) fL MCH 24.8 L (25.0-35.0) pg RDW 16.4 H (11.5-15.5) % APTT 21.5 L (22.0-30.0) sec Chloride 108 H (98-107) mmol/L Carbon Dioxide 18 L (22-30) mmol/L Creatinine 0.50 L (0.52-1.04) mg/dL Glucose 132 H (74-99) mg/dL POC Glucose (mg/dL) (70-110) mg/dL Phosphorus 4.6 H (2.5-4.5) mg/dL Magnesium 1.4 L (1.6-2.3) mg/dL AST 48 H (14-36) U/L 12/17/23 Range/Units 12:27 WBC (3.8-10.6) k/uL MCV (80.0-100.0) fL MCH (25.0-35.0) pg RDW (11.5-15.5) % APTT (22.0-30.0) sec Chloride (98-107) mmol/L Carbon Dioxide (22-30) mmol/L Creatinine (0.52-1.04) mg/dL Glucose (74-99) mg/dL POC Glucose (mg/dL) 111 H (70-110) mg/dL Phosphorus (2.5-4.5) mg/dL Magnesium (1.6-2.3) mg/dL AST (14-36) U/L Assessment and Plan (1) Diarrhea Narrative/Plan: 53-year-old female who was recently hospitalized and discharged for ongoing diarrhea had extensive stool studies as well as upper and lower endoscopy without any acute findings. Unclear etiology of diarrhea. Patient had been bitten by dog and that is when diarrhea had started she was started on some antibiotics at that time. Stool see Dificid I will and stool cultures were negative last admission. Also stool for Giardia and Cryptosporidium were collected and negative. She was recommended to continue with Imodium 4 mg 4 times a day, Questran twice a day and her Bentyl 4 times a day. Does not sound like patient was taking her medications as ordered And diarrhea has returned. She also had workup during the last hospitalization for celiac panel which was negative. Will repeat stool cultures and will change Imodium to scheduled. Current Visit: No Status: Acute Code(s): R19.7 - DIARRHEA, UNSPECIFIED SNOMED Code(s): 87978318 Plan: 1. Continue symptomatic and supportive care 2. Low fiber diet 3. Obtain stool cultures, stool C. difficile, ova and parasites, stool calprotectin and stool pancreatic elastase 4. No plans on repeat endoscopic evaluation 5. Continue Bentyl 20 mg 4 times a day, Questran twice daily and will change Imodium 4 mg 4 times daily to scheduled 6. Further recommendations forthcoming based on clinical course Thank you for this consultation, we will continue to follow. Dr. Anupam Joseph I agree with the dictator's note, documented as a scribe by Karely Rodriguez.
[2023-12-17 17:21] LABS: Glucose,Whole Blood 99 mg/dL (70-110)
[2023-12-17] MEDS: LOPERAMIDE 2 MG CAP PO SCH (17:44)
--- NOTE | 2023-12-17 17:46 | P.HPIM ---
History of Present Illness H&P Date: 12/17/23 Bella Su, is a 53-year-old female who presented to [facility] emergency room with a chief complaint of worsening abdominal pain, nausea and diarrhea She was evaluated in the emergency room vital examination on presentation revealed a temperature of 98.2 pulse 94 respiration 18 blood pressure 120/76 pulse ox 98% on room air Laboratory data reveals a white blood count of 12.4 hemoglobin 11.9 platelet count 407 BUN 9 creatinine 0.5 patient had previous admissions with same complaints, no testing was done in the emergency room patient was admitted to medical floor, surgical consultation and gastroenterology consultation were requested Patient was admitted to medical floor for further evaluation and treatment Past Medical History Past Medical History: Asthma, Cancer, CVA/TIA, Diabetes Mellitus, Fibromyalgia, GERD/Reflux, Hyperlipidemia, Osteoarthritis (OA), Pneumonia Additional Past Medical History / Comment(s): Had Iron infusions in Apr 2019. Hx TIA 2015. Diabetic neuropathy eli feet, migraines, cervical disc disease, DDD, eli tinnitis, arthiritis bilateral shoulders, IBS, HX R arm fx yrs ago, R ovarian cyst, hiatal hernia, UTIs, urinary calculus, pancreatitis x 2, stomach ulcer. Hx cervical cancer. COVID 08/2020 History of Any Multi-Drug Resistant Organisms: C-DIFF Date of last positivie culture/infection: 2015 MDRO Source:: None Past Surgical History: Appendectomy, Bariatric Surgery, Cholecystectomy, Hysterectomy, Tonsillectomy Additional Past Surgical History / Comment(s): 2010 felix-en-Y, fistula repair 2011, 2011 gastric bypass revision, bowel resection, lap gastrojejunostomy anastamosis revision, EGD and colonoscopy, cone bx-cervical cancer removed with cryo, L fallopian tube removed due to cyst, picc line in and out, CERVICAL FUSION 12/21/16. Past Anesthesia/Blood Transfusion Reactions: Family History of Problems w/ Anesthesia, Motion Sickness, Postoperative Nausea & Vomiting (PONV) Additional Past Anesthesia/Blood Transfusion Reaction / Comment(s): Pt states she has never recieved blood. FAMILY HX PONV. Past Psychological History: Anxiety, Depression Smoking Status: Never smoker Past Alcohol Use History: None Reported Past Drug Use History: None Reported - Past Family History Brother(s) Family Medical History: Deep Vein Thrombosis (DVT) Father Family Medical History: Cancer, Deep Vein Thrombosis (DVT), Pulmonary Embolus Additional Family Medical History / Comment(s): Father had poss colon and lung cancer and at age 73yrs. Mother Family Medical History: Coronary Artery Disease (CAD), Diabetes Mellitus, Deep Vein Thrombosis (DVT), Hypertension, Pulmonary Embolus Additional Family Medical History / Comment(s): Mother is alive and 73 yrs old. Medications and Allergies Home Medications Medication Instructions Recorded Confirmed Type Cetirizine HCl [Zyrtec] 10 mg PO DAILY 06/13/18 12/16/23 History Mirtazapine [Remeron] 15 mg PO HS 10/08/18 12/16/23 History LORazepam [Ativan] 0.5 mg PO Q6H PRN 04/23/19 12/16/23 History Propranolol HCl [Inderal Xl] 80 mg PO HS 04/23/19 12/16/23 History Gabapentin 300 mg PO DAILY 02/28/22 12/16/23 History Rizatriptan Odt [Maxalt INVENTORY REPRESENTATIVE] 10 mg PO TID PRN 02/28/22 12/16/23 History metFORMIN HCL ER [Glucophage XR] 2,000 mg PO DAILY 02/28/22 12/16/23 History Furosemide [Lasix] 20 mg PO BID 02/16/23 12/16/23 History Simvastatin [Zocor] 80 mg PO HS 02/28/23 12/16/23 History Escitalopram [Lexapro] 20 mg PO DAILY 03/21/23 12/16/23 History Ibuprofen [Motrin] 600 mg PO Q8HR PRN #30 tab 03/23/23 12/16/23 Rx Gabapentin 600 mg PO HS 11/17/23 12/16/23 History Insulin Glargine,Hum.rec.anlog 30 units SQ DAILY 11/17/23 12/16/23 History [Lantus Solostar Pen] Ondansetron Odt [Zofran ODT] 8 mg PO Q8HR PRN 11/17/23 12/16/23 History Tirzepatide [Mounjaro] 5 mg SQ FR 11/17/23 12/16/23 History busPIRone HCL 15 mg PO BID 11/17/23 12/16/23 History Cholestyramine (with Sugar) 4 gm PO BID@1000,1800 30 Days #60 04/17/24 04/28/24 Rx [Questran Packet] packet Dicyclomine [Bentyl] 20 mg PO QID 30 Days #240 cap 12/05/23 12/16/23 Rx Famotidine [Pepcid] 40 mg PO DAILY 30 Days #60 tab 12/05/23 12/16/23 Rx Loperamide [Imodium] 4 mg PO QID PRN 12/16/23 12/16/23 History Allergies Allergy/AdvReac Type Severity Reaction Status Date / Time oxycodone [From Percocet] Allergy Unknown Swelling; Verified 12/16/23 18:11 (WAS ABLE TO TAKE ALONG WITH BENADRYL) apricot Allergy Dyspnea Verified 12/16/23 18:11 barium sulfate Allergy Anaphylaxis Verified 12/16/23 18:11 [From Readi-Cat] codeine Allergy Anaphylaxis Verified 12/16/23 18:11 fentanyl Allergy Rash/Hives Verified 12/16/23 18:11 hydrocodone [From Lortab] Allergy Swelling Verified 12/16/23 18:11 Iodinated Contrast Media Allergy Anaphylaxis Verified 12/16/23 18:11 iodine Allergy Rash/Hives Verified 12/16/23 18:11 iron Allergy Swelling Verified 12/16/23 18:11 levofloxacin [From Levaquin] Allergy Swelling Verified 12/16/23 18:11 morphine Allergy Rash/Hives, Verified 12/16/23 18:11 Nausea/Vomiting peach Allergy Swelling Verified 12/16/23 18:11 peanut Allergy Swelling Verified 12/16/23 18:11 peanut oil Allergy Anaphylaxis Verified 12/16/23 18:11 shellfish derived [Shellfish] Allergy Anaphylaxis Verified 12/16/23 18:11 strawberry Allergy Anaphylaxis Verified 12/16/23 18:11 sucralfate [From Carafate] Allergy Swelling Verified 12/16/23 18:11 Sulfa (Sulfonamide Allergy Anaphylaxis Verified 12/16/23 18:11 Antibiotics) sulfamethoxazole Allergy Anaphylaxis Verified 12/16/23 18:11 [From Bactrim] tree nut [Nut] Allergy Swelling Verified 12/16/23 18:11 trimethoprim [From Bactrim] Allergy Anaphylaxis Verified 12/16/23 18:11 metronidazole [From Flagyl] AdvReac Unknown Verified 12/16/23 18:11 Physical Exam Vitals: Vital Signs Temp Pulse Resp BP Pulse Ox 12/17/23 04:47 97.8 F 90 17 107/71 98 12/17/23 03:30 56 L 12 90/54 97 12/17/23 02:30 76 18 118/80 97 12/17/23 01:00 85 18 114/80 97 12/16/23 21:20 90 17 112/82 97 12/16/23 19:44 98.1 F 85 18 111/68 97 12/16/23 17:10 98.2 F 94 18 120/76 98 Intake and Output 12/16/23 12/17/23 12/17/23 22:59 06:59 14:59 Other: Weight 86.183 kg In general patient is alert and oriented x 3 in no distress HEENT head normocephalic and atraumatic Neck is supple no JVD no goiter no lymphadenopathy no carotid bruit Chest examination is clear to auscultation no crackles no wheezing Cardiac exam reveals regular heart sounds S1 and S2 no gallops no murmurs Abdomen is soft nontender no organomegaly with normal bowel sounds Extremity exam reveals no edema no cyanosis or clubbing Neurological examination reveals no gross focal deficits Results CBC & Chem 7: 12/17/23 07:51 12/17/23 07:51 Labs: Abnormal Lab Results - Last 24 Hours (Table) 12/16/23 12/16/23 12/16/23 Range/Units 17:35 17:35 17:35 WBC 12.4 H (3.8-10.6) k/uL MCV 79.8 L (80.0-100.0) fL MCH 24.8 L (25.0-35.0) pg RDW 16.4 H (11.5-15.5) % APTT 21.5 L (22.0-30.0) sec Chloride 108 H (98-107) mmol/L Carbon Dioxide 18 L (22-30) mmol/L Creatinine 0.50 L (0.52-1.04) mg/dL Glucose 132 H (74-99) mg/dL Phosphorus 4.6 H (2.5-4.5) mg/dL Magnesium 1.4 L (1.6-2.3) mg/dL AST 48 H (14-36) U/L Assessment and Plan Plan: episodes of worsening abdominal pain Episodes of diarrhea Recent previous admissions with similar symptoms, patient had a computed tomography scan of the abdomen and pelvis on 11/16/2023, she also had a previous EGD and colonoscopy underlying history of fibromyalgia Underlying history of diabetes mellitus type 2 Underlying history of hyperlipidemia Underlying history of anxiety disorder and depression At this time patient is admitted to medical floor Home medications reviewed and reordered Consultation for general surgery Dr. Contreras was initiated patient is known to her, also consultation for gastroenterology was initiated Stool study ordered Will follow closely
[2023-12-17] MEDS: ONDANSETRON 4 MG/2 ML VIAL IVP PRN (20:39)
[2023-12-17] MEDS: busPIRone HCl 5 MG TAB PO SCH (20:39)
[2023-12-17] MEDS: GABAPENTIN 300 MG CAP PO SCH (20:39)
[2023-12-17] MEDS: ATORVASTATIN 40 MG TAB PO SCH (20:40)
[2023-12-17] MEDS: MIRTAZAPINE 15 MG TAB PO SCH (20:40)
[2023-12-17] MEDS: PROPRANOLOL LA 80 MG CAP.SA.24H PO SCH (20:40)
[2023-12-17] MEDS: FUROSEMIDE 20 MG TAB PO SCH (20:41)
[2023-12-17 20:50] LABS: Glucose,Whole Blood 115 mg/dL (70-110)
[2023-12-17] MEDS: ZOLPIDEM 5 MG TAB PO PRN (21:57)
[2023-12-18 03:03] VITALS: RESP 16
[2023-12-18 06:25] LABS: Glucose,Whole Blood 129 mg/dL (70-110)
[2023-12-18] MEDS: LORATADINE 10 MG TAB PO SCH (08:43)
[2023-12-18] MEDS: metFORMIN 500 MG TAB PO SCH (08:44)
[2023-12-18] MEDS: GABAPENTIN 300 MG CAP PO SCH (08:45)
--- NOTE | 2023-12-18 09:28 | P.PN ---
Subjective Progress Note Date: 12/18/23 Bella Su, is a 53-year-old female who presented to [facility] emergency room with a chief complaint of worsening abdominal pain, nausea and diarrhea She was evaluated in the emergency room vital examination on presentation revealed a temperature of 98.2 pulse 94 respiration 18 blood pressure 120/76 pulse ox 98% on room air Laboratory data reveals a white blood count of 12.4 hemoglobin 11.9 platelet count 407 BUN 9 creatinine 0.5 patient had previous admissions with same complaints, no testing was done in the emergency room patient was admitted to medical floor, surgical consultation and gastroenterology consultation were requested Patient was admitted to medical floor for further evaluation and treatment on 12/17/2022 for patient's alert and oriented 3. Patient still complaining of diarrhea and abdominal discomfort. GI and surgical services are following stool cultures and lab work has been ordered per GI services. Current vital signs temp 97.7, heart rate 86, respiratory rate 16, blood pressure 100/68 with a pulse ox of 95% on room air patient denies chest pain or shortness of breath. Patient denies any urinary burning or frequency Objective - Vital Signs Vital signs: Vital Signs Temp 97.7 F 12/18/23 07:10 Pulse 103 H 12/18/23 07:10 Resp 16 12/18/23 07:10 BP 124/83 12/18/23 07:10 Pulse Ox 93 L 12/18/23 07:10 FiO2 Intake & Output 12/17/23 12/18/23 12/18/23 18:59 06:59 18:59 Weight 86.183 kg Other: # Voids 3 1 - Exam In general patient is alert and oriented x 3 in no distress HEENT head normocephalic and atraumatic Neck is supple no JVD no goiter no lymphadenopathy no carotid bruit Chest examination is clear to auscultation no crackles no wheezing Cardiac exam reveals regular heart sounds S1 and S2 no gallops no murmurs Abdomen is soft nontender no organomegaly with normal bowel sounds Extremity exam reveals no edema no cyanosis or clubbing Neurological examination reveals no gross focal deficits - Labs CBC & Chem 7: 12/17/23 07:51 12/17/23 07:51 Labs: Abnormal Lab Results - Last 24 Hours (Table) 12/17/23 12/17/23 12/17/23 Range/Units 07:51 07:51 12:27 WBC 10.12 H (4.50-10.00) X 10*3/uL Hgb 10.9 L (12.0-15.0) g/dL Hct 36.0 L (37.2-46.3) % MCH 24.4 L (27.0-32.0) pg MCHC 30.3 L (32.0-37.0) g/dL RDW 16.3 H (11.5-14.5) % Anion Gap 17.60 H (4.00-12.00) mmol/L Glucose 111 H (70-110) mg/dL POC Glucose (mg/dL) 111 H (70-110) mg/dL Albumin/Globulin Ratio 1.58 L (1.60-3.17) Ratio 12/17/23 12/18/23 Range/Units 20:49 06:24 WBC (4.50-10.00) X 10*3/uL Hgb (12.0-15.0) g/dL Hct (37.2-46.3) % MCH (27.0-32.0) pg MCHC (32.0-37.0) g/dL RDW (11.5-14.5) % Anion Gap (4.00-12.00) mmol/L Glucose (70-110) mg/dL POC Glucose (mg/dL) 115 H 129 H (70-110) mg/dL Albumin/Globulin Ratio (1.60-3.17) Ratio Assessment and Plan Assessment: episodes of worsening abdominal pain Episodes of diarrhea Recent previous admissions with similar symptoms, patient had a computed tomography scan of the abdomen and pelvis on 11/16/2023, she also had a previous EGD and colonoscopy underlying history of fibromyalgia Underlying history of diabetes mellitus type 2 Underlying history of hyperlipidemia Underlying history of anxiety disorder and depression At this time patient is admitted to medical floor Home medications reviewed and reordered Consultation for general surgery Dr. Contreras was initiated patient is known to her, also consultation for gastroenterology was initiated Stool study ordered Will follow closely
--- NOTE | 2023-12-18 11:13 | P.PN ---
Subjective Progress Note Date: 12/18/23 Longstanding diarrhea for over 1 to 2 months. Recommend GI assessment and management. No additional surgical intervention at this time. Patient was previously seen by infectious disease upon her most recent hospitalization. Consultation to infectious disease is pending. Objective - Vital Signs Vital signs: Vital Signs Temp 97.7 F 12/18/23 07:10 Pulse 103 H 12/18/23 07:10 Resp 16 12/18/23 07:10 BP 124/83 12/18/23 07:10 Pulse Ox 93 L 12/18/23 07:10 FiO2 Intake & Output 12/17/23 12/18/23 12/18/23 18:59 06:59 18:59 Intake Total 118 Balance 118 Weight 86.183 kg Intake: Oral 118 Other: # Voids 3 1 - Labs CBC & Chem 7: 12/17/23 07:51 12/17/23 07:51 Labs: Abnormal Lab Results - Last 24 Hours (Table) 12/17/23 12/17/23 12/17/23 Range/Units 07:51 07:51 12:27 WBC 10.12 H (4.50-10.00) X 10*3/uL Hgb 10.9 L (12.0-15.0) g/dL Hct 36.0 L (37.2-46.3) % MCH 24.4 L (27.0-32.0) pg MCHC 30.3 L (32.0-37.0) g/dL RDW 16.3 H (11.5-14.5) % Anion Gap 17.60 H (4.00-12.00) mmol/L Glucose 111 H (70-110) mg/dL POC Glucose (mg/dL) 111 H (70-110) mg/dL Albumin/Globulin Ratio 1.58 L (1.60-3.17) Ratio 12/17/23 12/18/23 Range/Units 20:49 06:24 WBC (4.50-10.00) X 10*3/uL Hgb (12.0-15.0) g/dL Hct (37.2-46.3) % MCH (27.0-32.0) pg MCHC (32.0-37.0) g/dL RDW (11.5-14.5) % Anion Gap (4.00-12.00) mmol/L Glucose (70-110) mg/dL POC Glucose (mg/dL) 115 H 129 H (70-110) mg/dL Albumin/Globulin Ratio (1.60-3.17) Ratio
[2023-12-18 11:24] LABS: Basophils # (A) 0.09 X 10*3/uL (0.00-0.10); Basophils % (A) 0.9 %; Eosinophils # (A) 0.27 X 10*3/uL (0.04-0.35); Eosinophils % (A) 2.6 %; HCT 37.4 % (37.2-46.3); HGB 11.3 g/dL (12.0-15.0); Lymphocytes # (A) 4.46 X 10*3/uL (0.90-5.00); Lymphocytes % (A) 42.7 %; MCH 24.9 pg (27.0-32.0); MCHC 30.2 g/dL (32.0-37.0); MCV 82.6 FL (80.0-97.0); Mean Platelet Volume 10.7 FL (9.5-12.2); Monocytes # (A) 0.89 X 10*3/uL (0.20-1.00); Monocytes % (A) 8.5 %; NRBC Per 100 WBC 0 X 10*3/uL (0.00-0.01); Neutrophils # (A) 4.71 X 10*3/uL (1.80-7.70); Neutrophils % (A) 45.1 %; Platelet Count 434 X 10*3/uL (140-440); RBC 4.53 X 10*6/uL (4.10-5.20); RDW 16.2 % (11.5-14.5); WBC 10.44 X 10*3/uL (4.50-10.00)
[2023-12-18 11:25] LABS: ALT 26 U/L (8-44); AST 36 U/L (13-35); Albumin 4.3 g/dL (3.8-4.9); Albumin/Globulin Ratio 1.59 Ratio (1.60-3.17); Alkaline Phosphatase 91 U/L (41-126); BUN/Creat Ratio 7.88 Ratio (12.00-20.00); Blood Urea Nitrogen 6.3 mg/dL (9.0-27.0); Calcium 9.3 mg/dL (8.7-10.3); Carbon Dioxide 22.4 mmol/L (21.6-31.8); Chloride 103 mmol/L (96-109); Globulin 2.7 g/dL (1.6-3.3); Glucose 123 mg/dL (70-110); Potassium 3.8 mmol/L (3.5-5.5); Sodium 139 mmol/L (135-145); Total Bilirubin 0.4 mg/dL (0.3-1.2)
[2023-12-18] MEDS: ESCITALOPRAM 20 MG TAB PO SCH (11:45)
[2023-12-18 12:02] LABS: Glucose,Whole Blood 125 mg/dL (70-110)
[2023-12-18] MEDS: CHOLESTYRAMINE (WITH SUGAR) 4 GM PACKET PO SCH (14:28)
[2023-12-18 14:50] LABS: INR 1.06 sec (0.93-1.11); Prothrombin Time 11.4 sec (9.9-11.9)
[2023-12-18 14:58] LABS: Cryptosporidium Antigen Negative (Negative)
[2023-12-18] MEDS: ACETAMINOPHEN TAB 325 MG TAB PO PRN (15:02)
--- NOTE | 2023-12-18 16:48 | P.PN ---
Subjective Progress Note Date: 12/18/23 Principal diagnosis: Diarrhea This is a pleasant 53-year-old female who was recently hospitalized for ongoing diarrhea, nausea vomiting and lower abdominal pain. Patient has had diarrhea ongoing since September however has progressively had gotten worse over the last 3-4 weeks duration. Patient was admitted to this hospital on 11/16/2023 and discharged on 12/05/2023. She had been complaining of diarrhea and abdominal cramping and discomfort. She had a CT of the abdomen pelvis with no significant interval change. No acute CT abnormality in the abdomen or pelvis. She reports that she was bitten by a dog on September 26, 2023. At that time she was started on clindamycin. Shortly after that she started having diarrhea. Diarrhea was getting worse they assumed patient had C. difficile and she was started on vancomycin Although C. difficile was negative. She states she continued to have diarrhea. When asked if she started any new medications only new medication was her Mounjaro which she states she started around middle to end of September. She reports having up to 18 bowel movements a day. Small to medium amount. Nonbloody. She had stool cultures which were negative, stool lactoferrin positive, stool cryptosporidium negative, stool Giardia antigen negative. Ova and parasites ordered however currently pending. During her last hospitalization she did undergo colonoscopy on 11/28/[address] Contreras with findings of grade 1 internal hemorrhoids. Multiple biopsies were taken. Biopsy results show no microscopic colitis. T she also underwent upper endoscopy with Dr. 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 She was started on IV Rocephin and oral Flagyl on admission. She was started on Imodium, Bentyl and Questran during her last hospitalization and recommendation was to be discharged on the medications. It was recommended that she take Questran twice a day, continue with Bentyl 20 mg 4 times a day and Imodium was increased to 2 tablets which is 4 mg 4 times a day. She states that her diarrhea never subsided. She still has loose stools they were never formed she did decrease in the amount however she states she started having abdominal pain followed by increased bowel movements. States that she had 9 loose nonbloody bowel movements yester day. She has had 2 bowel movements today. Patient states she has only been taking her Questran only once a day. Abdominal pain improved today, no nausea or vomiting. 12/18/2023 Patient seen and examined today as a follow-up for diarrhea and abdominal cramping. Patient states diarrhea is improving and stool is more formed. She is still having some abdominal cramping. Stool C. difficile canceled due to formed stools. Patient without any nausea or vomiting. Normal electrolytes. Mild leukocytosis. Stool cryptosporidium antigen and stool Giardia antigen negative. Stool culture pending. Stool calprotectin and pancreatic elastase pending. Patient does report that at the beginning of her symptoms her had been hospitalized for few days as well not feeling well. Then apparently some family members that had been visiting had gone home and were not feeling well and had diarrhea as well. Objective - Vital Signs Vital signs: Vital Signs Temp 97.7 F 12/18/23 07:10 Pulse 103 H 12/18/23 07:10 Resp 16 12/18/23 07:10 BP 124/83 12/18/23 07:10 Pulse Ox 93 L 12/18/23 07:10 FiO2 Intake & Output 12/17/23 12/18/23 12/18/23 18:59 06:59 18:59 Intake Total 118 Balance 118 Weight 86.183 kg Intake: Oral 118 Other: # Voids 3 1 - Exam General appearance: The patient is alert, oriented, appears in no acute distress. HET: Head is normocephalic and atraumatic. Conjunctiva pink. Sclera anicteric. Neck: Supple without lymphadenopathy. Abdomen: Soft, mild lower abdominal tenderness, nondistended with bowel sounds. No guarding or rigidity. Extremities: Normal skin color and turgor. No pedal edema Skin: No rashes, no jaundice Neurological: No focal deficits. Alert and oriented. - Labs CBC & Chem 7: 12/18/23 07:15 12/18/23 07:15 Labs: Abnormal Lab Results - Last 24 Hours (Table) 12/17/23 12/17/23 12/17/23 Range/Units 07:51 07:51 12:27 WBC 10.12 H (4.50-10.00) X 10*3/uL Hgb 10.9 L (12.0-15.0) g/dL Hct 36.0 L (37.2-46.3) % MCH 24.4 L (27.0-32.0) pg MCHC 30.3 L (32.0-37.0) g/dL RDW 16.3 H (11.5-14.5) % Anion Gap 17.60 H (4.00-12.00) mmol/L Glucose 111 H (70-110) mg/dL POC Glucose (mg/dL) 111 H (70-110) mg/dL Albumin/Globulin Ratio 1.58 L (1.60-3.17) Ratio 12/17/23 12/18/23 Range/Units 20:49 06:24 WBC (4.50-10.00) X 10*3/uL Hgb (12.0-15.0) g/dL Hct (37.2-46.3) % MCH (27.0-32.0) pg MCHC (32.0-37.0) g/dL RDW (11.5-14.5) % Anion Gap (4.00-12.00) mmol/L Glucose (70-110) mg/dL POC Glucose (mg/dL) 115 H 129 H (70-110) mg/dL Albumin/Globulin Ratio (1.60-3.17) Ratio Assessment and Plan (1) Diarrhea Narrative/Plan: 53-year-old female who was recently hospitalized and discharged for ongoing diarrhea had extensive stool studies as well as upper and lower endoscopy without any acute findings. Unclear etiology of diarrhea. Patient had been bitten by dog and that is when diarrhea had started she was started on some antibiotics at that time. Stool see Dificid I will and stool cultures were negative last admission. Also stool for Giardia and Cryptosporidium were collected and negative. She was recommended to continue with Imodium 4 mg 4 times a day, Questran twice a day and her Bentyl 4 times a day. Does not sound like patient was taking her medications as ordered And diarrhea has returned. She also had workup during the last hospitalization for celiac panel which was negative. Will repeat stool cultures and will change Imodium to scheduled. Unclear etiology of diarrhea however is improving and stool is more formed. Discussed with patient she needs to continue with medications as ordered at home. Repeat stool cultures pending. Stool Giardia and cryptosporidium negative. Further labs can be reviewed as an outpatient. Patient is cleared from gastroenterology for discharge. Current Visit: No Status: Acute Code(s): R19.7 - DIARRHEA, UNSPECIFIED SNOMED Code(s): 53279029 Plan: 1. Continue symptomatic and supportive care 2. Low fiber diet 3. Stool cultures pending, stool calprotectin and stool pancreatic elastase pending 4. No plans on repeat endoscopic evaluation 5. Continue Bentyl 20 mg 4 times a day, Questran 3 times daily and will change Imodium 4 mg 4 times daily to scheduled 6. No further workup by gastroenterology. Patient is cleared to be discharged and follow-up with gastroenterology for further stool studies in the outpatient setting as previously scheduled Thank you for this consultation, we will sign off at this time. Dr. Anupam Joseph I agree with the dictator's note, documented as a scribe by Karely Rodriguez.
[2023-12-18 17:10] LABS: Glucose,Whole Blood 102 mg/dL (70-110)
[2023-12-18 20:12] LABS: Glucose,Whole Blood 138 mg/dL (70-110)
[2023-12-18] MEDS: KETOROLAC 15 MG/ML 1 ML VIAL IVP SCH (20:28)
[2023-12-19 06:08] LABS: Glucose,Whole Blood 99 mg/dL (70-110)
[2023-12-19] MEDS: KETOROLAC 15 MG/ML 1 ML VIAL IVP PRN (08:24)
[2023-12-19 11:23] LABS: Calprotectin, Stool 37.9 mcg/g (<50)
--- NOTE | 2023-12-19 12:07 | P.DS ---
Providers Date of admission: 12/16/23 20:47 Expected date of discharge: 12/19/23 Attending physician: Bushra Elliott Consults: 12/17/23 09:22 Consult Physician Routine Consulting Provider: Osiris Contreras Consult Reason/Comments: abdominal pain Do you want consulting provider notified?: Yes 12/17/23 11:32 Consult Physician Routine Consulting Provider: Jaycee Joseph Consult Reason/Comments: diarrhea Do you want consulting provider notified?: Yes Primary care physician: Macy Knight Hospital Course: discharge diagnosis episodes of worsening abdominal pain Episodes of diarrhea Recent previous admissions with similar symptoms, patient had a computed tomography scan of the abdomen and pelvis on 11/16/2023, she also had a previous EGD and colonoscopy underlying history of fibromyalgia Underlying history of diabetes mellitus type 2 Underlying history of hyperlipidemia Underlying history of anxiety disorder and depression Hospital course Bella Su, is a 53-year-old female who presented to [facility] emergency room with a chief complaint of worsening abdominal pain, nausea and diarrhea She was evaluated in the emergency room vital examination on presentation revealed a temperature of 98.2 pulse 94 respiration 18 blood pressure 120/76 pulse ox 98% on room air Laboratory data reveals a white blood count of 12.4 hemoglobin 11.9 platelet count 407 BUN 9 creatinine 0.5 patient had previous admissions with same complaints, no testing was done in the emergency room patient was admitted to medical floor, surgical consultation and gastroenterology consultation were requested Patient was admitted to medical floor for further evaluation and treatment on 12/17/2022 for patient's alert and oriented 3. Patient still complaining of diarrhea and abdominal discomfort. GI and surgical services are following stool cultures and lab work has been ordered per GI services. Current vital signs temp 97.7, heart rate 86, respiratory rate 16, blood pressure 100/68 with a pulse ox of 95% on room air patient denies chest pain or shortness of breath. Patient denies any urinary burning or frequency on 12/19/2023 patient is alert and oriented 3. According to nursing records patient had more formed stool. Discussed case with GI services patient cleared for discharge. Patient reported still having some loose stools and abdominal pain. Will do abdominal CT prior to discharge. Patient will follow-up with GI services for further management. Current cultures negative. Current vital signs temp 98.5, heart rate 73, respiratory rate 16, blood pressure 105/69 with pulse ox 98% on room air Patient Condition at Discharge: Stable Plan - Discharge Summary New Discharge Prescriptions: New Cholestyramine (with Sugar) [Questran Packet] 4 gm PO TID BETWEEN MEALS #42 packet Continue Cetirizine HCl [Zyrtec] 10 mg PO DAILY Mirtazapine [Remeron] 15 mg PO HS Propranolol HCl [Inderal Xl] 80 mg PO HS LORazepam [Ativan] 0.5 mg PO Q6H PRN PRN Reason: Anxiety metFORMIN HCL ER [Glucophage XR] 2,000 mg PO DAILY Rizatriptan Odt [Maxalt [employer] SOFTWARE DEVELOPER] 10 mg PO TID PRN PRN Reason: Migraine Headache Furosemide [Lasix] 20 mg PO BID Simvastatin [Zocor] 80 mg PO HS Ondansetron Odt [Zofran ODT] 8 mg PO Q8HR PRN PRN Reason: Nausea Insulin Glargine,Hum.rec.anlog [Lantus Solostar Pen] 30 units SQ DAILY busPIRone HCL 15 mg PO BID Dicyclomine [Bentyl] 20 mg PO QID 30 Days #240 cap Gabapentin 300 mg PO DAILY Escitalopram [Lexapro] 20 mg PO DAILY Tirzepatide [Mounjaro] 5 mg SQ FR Gabapentin 600 mg PO HS Famotidine [Pepcid] 40 mg PO DAILY 30 Days #60 tab Loperamide [Imodium] 4 mg PO QID PRN PRN Reason: Diarrhea Discontinued Cholestyramine (with Sugar) [Questran Packet] 4 gm PO BID@1000,1800 30 Days #60 packet Ibuprofen [Motrin] 600 mg PO Q8HR PRN #30 tab PRN Reason: Pain Discharge Medication List Cetirizine HCl [Zyrtec] 10 mg PO DAILY 06/13/18 [History] Mirtazapine [Remeron] 15 mg PO HS 10/08/18 [History] LORazepam [Ativan] 0.5 mg PO Q6H PRN 04/23/19 [History] Propranolol HCl [Inderal Xl] 80 mg PO HS 04/23/19 [History] Gabapentin 300 mg PO DAILY 02/28/22 [History] Rizatriptan Odt [Maxalt [employer] SOFTWARE DEVELOPER] 10 mg PO TID PRN 02/28/22 [History] metFORMIN HCL ER [Glucophage XR] 2,000 mg PO DAILY 02/28/22 [History] Furosemide [Lasix] 20 mg PO BID 02/16/23 [History] Simvastatin [Zocor] 80 mg PO HS 02/28/23 [History] Escitalopram [Lexapro] 20 mg PO DAILY 03/21/23 [History] Gabapentin 600 mg PO HS 11/17/23 [History] Insulin Glargine,Hum.rec.anlog [Lantus Solostar Pen] 30 units SQ DAILY 11/17/23 [History] Ondansetron Odt [Zofran ODT] 8 mg PO Q8HR PRN 11/17/23 [History] Tirzepatide [Mounjaro] 5 mg SQ FR 11/17/23 [History] busPIRone HCL 15 mg PO BID 11/17/23 [History] Dicyclomine [Bentyl] 20 mg PO QID 30 Days #240 cap 12/05/23 [Rx] Famotidine [Pepcid] 40 mg PO DAILY 30 Days #60 tab 12/05/23 [Rx] Loperamide [Imodium] 4 mg PO QID PRN 12/16/23 [History] Cholestyramine (with Sugar) [Questran Packet] 4 gm PO TID BETWEEN MEALS #42 packet 12/19/23 [Rx] Follow up Appointment(s)/Referral(s): Macy Knight MD [Primary Care Provider] - 1-2 days Jaycee Joseph MD [STAFF PHYSICIAN] - 1 Week Activity/Diet/Wound Care/Special Instructions: activity as tolerated Diet low fiber Discharge Disposition: HOME SELF-CARE
[2023-12-19 12:23] LABS: Glucose,Whole Blood 108 mg/dL (70-110)
[2023-12-19] MEDS ORDERED: ONDANSETRON 4 MG/2 ML VIAL IVP PRN ×2 (14:16→14:26)
--- NOTE | 2023-12-19 15:10 | CT ---
EXAMINATION TYPE: CT abdomen wo con DATE OF EXAM: 12/19/2023 COMPARISON: 11/16/2023 INDICATION: Lower abdominal pain DLP: 827 mGycm, Automated exposure control for dose reduction was used. CONTRAST: 0 mL of Isovue 300. Study performed without Oral Contrast TECHNIQUE: Axial images were obtained from above the diaphragm to the pubic rami in the axial plane a t 5 mm thick sections. Reconstructed images are reviewed on the computer in the coronal plane. FINDINGS: Limited CT sections are obtained the lung bases. The lung bases are clear. CT ABDOMEN: Appears to be a gastric sleeve. Liver: Normal Spleen: Normal Pancreas: Normal Adrenal glands: The adrenal glands are normal. Gallbladder: Surgically absent Kidneys: No masses are evident. No hydronephrosis is present. No cysts are present. No renal stone s are identified. Aorta: Normal Inferior vena cava: Flattened which can be related to patient's volume status. CT PELVIS: Loops of bowel within the abdomen and pelvis are normal. The study is without oral contrast limit ing bowel evaluation. Prior anastomosis in the left lower quadrant appears widely patent. Appendix: Not identified. Prior appendectomy appears to be present. Urinary bladder: Decompressed limiting evaluation. Genitourinary structures: Uterus and ovaries are not identified. Osseous structures: No suspicious lytic or sclerotic lesions. IMPRESSION: 1. No suspicious abnormalities to account for lower abdominal pain.
[2023-12-19 15:12] VITALS: TEMP 98.7
--- NOTE | 2023-12-19 15:30 | P.PN ---
Subjective Progress Note Date: 12/19/23 CHIEF COMPLAINT: Diarrhea HISTORY OF PRESENT ILLNESS: Patient continues to report diarrhea. GI service h as adjusted medications. They are recommending discharge with outpatient follow-up. Patient's stool was too formed to be collected for C. difficile. Patient reports she has diarrhea after she eats. No nausea or vomiting reported. Afebrile. PHYSICAL EXAM: VITAL SIGNS: Reviewed GENERAL: Well-developed in no acute distress. HEENT: No sclera icterus. Extraocular movements grossly intact. Moist buccal mucosa. Head is atraumatic, normocephalic. Hears conversational speech. No nasal drainage. NECK: Supple without lymphadenopathy. CHEST: Non-labored respirations and equal bilateral excursions. CARDIOVASCULAR: Palpable 2+ radial pulses. ABDOMEN: Soft. Nondistended. MUSCULOSKELETAL: No clubbing or cyanosis. NEUROLOGIC: No focal or lateralizing signs. Cranial nerves II through XII grossly intact. PSYCH: Appropriate affect. Alert and oriented to person, place and time. SKIN: Well perfused. Good skin turgor. ASSESSMENT: 1. Generalized abdominal pain with chronic diarrhea 2. Hypokalemia 3. Hypomagnesia 4. Hyperlipidemia 5. Hypertensive heart disease 6. Osteoarthritis bilateral knees 7. Osteoarthritis bilateral hips 8. Osteoarthritis lower back 9. Pneumonia 10. Chronic iron deficiency anemia 11. Diabetes type 2 insulin-dependent, uncontrolled 12. Diabetic neuropathy 13. Pancreatitis 14. History of cervical cancer 15. History of C. diff 16. Fibromyalgia 17. Gastroesophageal reflux disease 18. Transient ischemic attack 19. Depressive disorder 20. Generalized anxiety disorder 21. Congestive heart failure 22. Vitamin D deficiency 23. Hypothyroidism 24. Anemia 25. Colon cancer, family 26. Morbid obesity due to excess calories 27. Body mass index of 52.5 to 32.9 28. Asthma PLAN: -No surgical intervention planned -Recommend follow-up with GI outpatient Physician Day Care Assistant note has been reviewed by physician. Signing provider agrees with the documented findings, assessment, and plan of care. Objective - Vital Signs Vital signs: Vital Signs Temp 98.7 F 12/19/23 14:45 Pulse 78 12/19/23 14:45 Resp 16 12/19/23 14:45 BP 99/64 12/19/23 14:45 Pulse Ox 97 12/19/23 14:45 FiO2 Intake & Output 12/18/23 12/19/23 12/19/23 18:59 06:59 18:59 Intake Total 236 358 Output Total 40 Balance 196 358 Intake: Oral 236 358 Output: Stool 40 Other: Voiding Method Toilet # Voids 3 2 3 - Labs CBC & Chem 7: 12/18/23 07:15 12/18/23 07:15 Labs: Abnormal Lab Results - Last 24 Hours (Table) 12/18/23 Range/Units 20:10 POC Glucose (mg/dL) 138 H (70-110) mg/dL
[2023-12-19 16:06] VITALS: BP 102/78; PULSE 89
== END 2023-12-19 15:48 | disposition home or self-care (01) ==
LOC: EC 16:49 → 6NMEDSUR 20:47
PROVIDERS: ADMIT Internal Medicine; ATTEND Internal Medicine
DX: K52.9 Noninfective gastroenteritis and colitis, unspecified (principal); E87.6 Hypokalemia; K21.9 Gastro-esophageal reflux disease without esophagitis; J45.909 Unspecified asthma, uncomplicated; I11.0 Hypertensive heart disease with heart failure; I50.9 Heart failure, unspecified; E78.5 Hyperlipidemia, unspecified; E11.40 Type 2 diabetes mellitus with diabetic neuropathy, unspecified; M17.0 Bilateral primary osteoarthritis of knee; M16.0 Bilateral primary osteoarthritis of hip; J18.9 Pneumonia, unspecified organism; D50.9 Iron deficiency anemia, unspecified; K85.90 Acute pancreatitis without necrosis or infection, unspecified; F32.A Depression, unspecified; F41.1 Generalized anxiety disorder; M79.7 Fibromyalgia; E55.9 Vitamin D deficiency, unspecified; E03.9 Hypothyroidism, unspecified; E86.0 Dehydration; G89.4 Chronic pain syndrome; E66.01 Morbid (severe) obesity due to excess calories; Z68.43 Body mass index [BMI] 50.0-59.9, adult; Z85.41 Personal history of malignant neoplasm of cervix uteri; Z86.16 Personal history of COVID-19; Z86.19 Personal history of other infectious and parasitic diseases; Z86.73 Personal history of transient ischemic attack (TIA), and cerebral infarction without residual deficits; Z98.84 Bariatric surgery status; Z79.899 Other long term (current) drug therapy; Z79.84 Long term (current) use of oral hypoglycemic drugs; Z79.4 Long term (current) use of insulin; Z79.85 Long-term (current) use of injectable non-insulin antidiabetic drugs; Z88.5 Allergy status to narcotic agent; Z88.2 Allergy status to sulfonamides; Z88.1 Allergy status to other antibiotic agents; Z80.0 Family history of malignant neoplasm of digestive organs
CPT/HCPCS: 96376 ×5; 96372 ×3; 96375 ×2; 96361; 96374; 99285; 36415; 80053 ×3; 82150; 83605; 83690; 83735 ×2; 84100 ×2; 85025 ×3; 85610 ×2; 85730; 81003; 83993; 87045; 87329; 87328; 87046; 82653; 74150; G0378 ×4; J2405 ×4; J1650 ×3; J1170 ×3; J1885 ×2; C9113 ×4

== ENCOUNTER 2024-01-01 10:05 | Observation (INO) | payer OTHER ==
--- NOTE | 2024-01-01 10:26 | ED ---
Abdominal Pain HPI - General Chief Complaint: Abdominal Pain Stated Complaint: Abd pain Time Seen by Provider: 01/01/24 10:23 Source: patient, RN notes reviewed Mode of arrival: ambulatory Limitations: no limitations - History of Present Illness Initial Comments: The patient is a 53-year-old female with past medical history of Sabino-en-Y, cholecystectomy, appendectomy, diabetes,'s emergency department chief complaint of diffuse abdominal pain, diarrhea, nausea and vomiting. Patient has been in the emergency department with similar complaints over the past 3 months. She states that her symptoms began on Sunday evening with multiple bouts of diarr hea, vomiting, and fevers at home. She denies hematemesis, hematochezia, dark or tarry stools. Notes that she has taken an gas ask in addition to 2 tabs of Lomotil this morning with her last episode of diarrhea at roughly 9 AM. Patient had an appointment with 's MLP last week Sunday, 12/24, she was advised to drop off a stool sample in addition to give patient Zofran as needed for nausea, Vomiting, and Lomotil as needed for diarrhea, was directed to report to the emergency department if symptoms worsen or do not prove. patient denies recent antibiotic. Denies current diagnosis of C. difficile, however states that she does have a history. - Related Data Home Medications Medication Instructions Recorded Confirmed Cetirizine HCl [Zyrtec] 10 mg PO DAILY 06/13/18 01/01/24 Mirtazapine [Remeron] 15 mg PO HS 10/08/18 01/01/24 LORazepam [Ativan] 0.5 mg PO Q6H PRN 04/23/19 01/01/24 Propranolol HCl [Inderal Xl] 80 mg PO HS 04/23/19 01/01/24 Gabapentin 300 mg PO DAILY 02/28/22 01/01/24 Rizatriptan Odt [Maxalt ELECTRICIAN YARD] 10 mg PO TID PRN 02/28/22 01/01/24 metFORMIN HCL ER [Glucophage XR] 2,000 mg PO DAILY 02/28/22 01/01/24 Furosemide [Lasix] 20 mg PO BID 02/16/23 01/01/24 Simvastatin [Zocor] 80 mg PO HS 02/28/23 01/01/24 Escitalopram [Lexapro] 20 mg PO DAILY 03/21/23 01/01/24 Gabapentin 600 mg PO HS 11/17/23 01/01/24 Insulin Glargine,Hum.rec.anlog 30 units SQ DAILY 11/17/23 01/01/24 [Lantus Solostar Pen] Ondansetron Odt [Zofran ODT] 8 mg PO Q8HR PRN 11/17/23 01/01/24 Tirzepatide [Mounjaro] 5 mg SQ FR 11/17/23 01/01/24 Loperamide [Imodium] 4 mg PO QID PRN 12/16/23 01/01/24 Diphenoxylate HCl/Atropine 2 tab PO QID PRN 01/01/24 01/01/24 [Lomotil 2.5-0.025 mg Tablet] Famotidine [Pepcid] 20 mg PO BID 01/01/24 01/01/24 Previous Rx's Medication Instructions Recorded Dicyclomine [Bentyl] 20 mg PO QID 30 Days #240 cap 12/05/23 Allergies Allergy/AdvReac Type Severity Reaction Status Date / Time oxycodone [From Percocet] Allergy Unknown Swelling; Verified 01/01/24 12:28 (WAS ABLE TO TAKE ALONG WITH BENADRYL) apricot Allergy Dyspnea Verified 01/01/24 12:28 barium sulfate Allergy Anaphylaxis Verified 01/01/24 12:28 [From Readi-Cat] codeine Allergy Anaphylaxis Verified 01/01/24 12:28 fentanyl Allergy Rash/Hives Verified 01/01/24 12:28 hydrocodone [From Lortab] Allergy Swelling Verified 01/01/24 12:28 Iodinated Contrast Media Allergy Anaphylaxis Verified 01/01/24 12:28 iodine Allergy Rash/Hives Verified 01/01/24 12:28 iron Allergy Swelling Verified 01/01/24 12:28 levofloxacin [From Levaquin] Allergy Swelling Verified 01/01/24 12:28 morphine Allergy Rash/Hives, Verified 01/01/24 12:28 Nausea/Vomiting peach Allergy Swelling Verified 01/01/24 12:28 peanut Allergy Swelling Verified 01/01/24 12:28 peanut oil Allergy Anaphylaxis Verified 01/01/24 12:28 shellfish derived [Shellfish] Allergy Anaphylaxis Verified 01/01/24 12:28 strawberry Allergy Anaphylaxis Verified 01/01/24 12:28 sucralfate [From Carafate] Allergy Swelling Verified 01/01/24 12:28 Sulfa (Sulfonamide Allergy Anaphylaxis Verified 01/01/24 12:28 Antibiotics) sulfamethoxazole Allergy Anaphylaxis Verified 01/01/24 12:28 [From Bactrim] tree nut [Nut] Allergy Swelling Verified 01/01/24 12:28 trimethoprim [From Bactrim] Allergy Anaphylaxis Verified 01/01/24 12:28 metronidazole [From Flagyl] AdvReac "made me Verified 01/01/24 12:28 hot" Review of Systems ROS Statement: Those systems with pertinent positive or pertinent negative responses have been documented in the HPI. ROS Other: All systems not noted in ROS Statement are negative. Past Medical History Past Medical History: Asthma, Cancer, CVA/TIA, Diabetes Mellitus, Fibromyalgia, GERD/Reflux, Hyperlipidemia, Osteoarthritis (OA), Pneumonia Additional Past Medical History / Comment(s): Had Iron infusions in Apr 2019. Hx TIA 2015. Diabetic neuropathy eli feet, migraines, cervical disc disease, DDD, eli tinnitis, arthiritis bilateral shoulders, IBS, HX R arm fx yrs ago, R ovarian cyst, hiatal hernia, UTIs, urinary calculus, pancreatitis x 2, stomach u lcer. Hx cervical cancer. COVID 08/2020 History of Any Multi-Drug Resistant Organisms: C-DIFF Date of last positivie culture/infection: 2015 MDRO Source:: None Past Surgical History: Appendectomy, Bariatric Surgery, Cholecystectomy, Hysterectomy, Tonsillectomy Additional Past Surgical History / Comment(s): 2010 sabino-en-Y, fistula repair 2011, 2011 gastric bypass revision, bowel resection, lap gastrojejunostomy anastamosis revision, EGD and colonoscopy, cone bx-cervical cancer removed with cryo, L fallopian tube removed due to cyst, picc line in and out, CERVICAL FUSION 12/21/16. Past Anesthesia/Blood Transfusion Reactions: Family History of Problems w/ Anesthesia, Motion Sickness, Postoperative Nausea & Vomiting (PONV) Additional Past Anesthesia/Blood Transfusion Reaction / Comment(s): Pt states she has never recieved blood. FAMILY HX PONV. Past Psychological History: Anxiety, Depression Smoking Status: Never smoker Past Alcohol Use History: None Reported Past Drug Use History: None Reported - Past Family History Brother(s) History Unknown: Yes Family Medical History: Deep Vein Thrombosis (DVT) Father Family Medical History: Cancer, Deep Vein Thrombosis (DVT), Pulmonary Embolus Additional Family Medical History / Comment(s): Father had poss colon and lung cancer and at age 73yrs. Mother History Unknown: Yes Family Medical History: Coronary Artery Disease (CAD), Diabetes Mellitus, Deep Vein Thrombosis (DVT), Hypertension, Pulmonary Embolus Additional Family Medical History / Comment(s): Mother is alive and 73 yrs old. General Exam Limitations: no limitations General appearance: alert, in no apparent distress Head exam: Present: atraumatic, normocephalic, normal inspection Eye exam: Present: normal appearance, PERRL, EOMI. Absent: scleral icterus, conjunctival injection, periorbital swelling ENT exam: Present: normal exam, mucous membranes moist Neck exam: Present: normal inspection. Absent: tenderness, meningismus, lymphadenopathy Respiratory exam: Present: normal lung sounds bilaterally. Absent: respiratory distress, wheezes, rales, rhonchi, stridor Cardiovascular Exam: Present: regular rate, normal rhythm, normal heart sounds. Absent: systolic murmur, diastolic murmur, rubs, gallop, clicks GI/Abdominal exam: Present: soft, distended, tenderness (Diffuse), normal bowel sounds. Absent: guarding, rebound, rigid Extremities exam: Present: normal inspection, full ROM, normal capillary refill. Absent: tenderness, pedal edema, joint swelling, calf tenderness Back exam: Present: normal inspection Neurological exam: Present: alert, oriented X3, CN II-XII intact Psychiatric exam: Present: normal affect, normal mood Skin exam: Present: warm, dry, intact, normal color. Absent: rash Course Vital Signs 01/01/24 01/01/24 01/01/24 10:18 15:45 17:26 Temperature 98.2 F Pulse Rate 97 65 79 Respiratory 18 16 18 Rate Blood Pressure 122/85 108/70 100/69 O2 Sat by Pulse 98 98 98 Oximetry Medical Decision Making - Medical Decision Making Was pt. sent in by a medical professional or institution (, PA, GRADUATE CIVIL ENGINEER, urgent care, hospital, or fci...) When possible be specific @ -No Did you speak to anyone other than the patient for history (EMS, parent, family, police, friend...)? What history was obtained from this source @ -No Did you review nursing and triage notes (agree or disagree)? Why? @ -I reviewed and agree with nursing and triage notes Were old charts reviewed (outside hosp., previous admission, EMS record, old EKG, old radiological studies, urgent care reports/EKG's, fci records)? Report findings @ -No old charts were reviewed Differential Diagnosis (chest pain, altered mental status, abdominal pain women, abdominal pain men, vaginal bleeding, weakness, fever, dyspnea, syncope, headache, dizziness, GI bleed, back pain, seizure, CVA, palpatations, mental health, musculoskeletal)? @ -Differential Abdominal Pain Women: Appendicitis, Cholecystitis, diverticulosis, ischemic bowel, pancreatitis, hepatitis, UTI, gastroenteritis, AAA, incarcerated hernia, bowel obstruction, constipation, inflammatory bowel, hepatitis, peptic ulcer disease, splenic infarction, perforated viscus, vulvitis, ovarian torsion, PID, kidney stone, placenta abruption, this is not meant to be an all-inclusive list EKG interpreted by me (3pts min.). @ -None X-rays interpreted by me (1pt min.). @ -None done CT interpreted by me (1pt min.). @ -None done U/S interpreted by me (1pt. min.). @ -None done What testing was considered but not performed or refused? (CT, X-rays, U/S, labs)? Why? @ -None What meds were considered but not given or refused? Why? @ -None Did you discuss the management of the patient with other professionals (professionals i.e. , PA, GRADUATE CIVIL ENGINEER, lab, RT, psych nurse, social services director, extruding machine operator, teacher, traffic division commanding officer, casey saw operator)? Give summary @ -With Dr. Joseph, to the patient's case and states that she is agreeable with being on consult for admission. Spoke with Dr. Elliott admission. He recommends to hold off on further imaging of the abdomen. Additionally, antibiotics held for urinary tract infection due to symptoms of diarrhea. Was smoking cessation discussed for >3mins.? @ -No Was critical care preformed (if so, how long)? @ -No Were there social determinants of health that impacted care today? How? (Homelessness, low income, unemployed, alcoholism, drug addiction, transportation, low edu. Level, literacy, decrease access to med. care, longterm, rehab)? @ -No Was there de-escalation of care discussed even if they declined (Discuss DNR or withdrawal of care, Hospice)? DNR status @ -No What co-morbidities impacted this encounter? (DM, HTN, Smoking, COPD, CAD, Cancer, CVA, ARF, Chemo, Hep., AIDS, mental health diagnosis, sleep apnea, morbid obesity)? @ -None Was patient admitted / discharged? Hospital course, mention meds given and route, prescriptions, significant lab abnormalities, going to OR and other pertinent info. @ -53-year-old female with diarrhea, nausea and vomiting. On examination patient noted to have diffuse abdominal tenderness with light palpation. Bowel sounds are equal in all quadrants. There is notable rebound tenderness. At this time abdominal labs ordered and a consult to Dr. Soto has been placed for further evaluation. CBC remarkable for mildly elevated Red cell distribution of 16. CMP no signs of electrolyte abnormalities. Labs reveals a hyperphosphatemia 4.9. Amylase and lipase not elevated. Sodium, potassium, chloride unremarkable. No signs of acidosis or alkalosis. Urinalysis reveals large leukocyte esterase and 23 white blood cells consistent with a urinary t ract infection. Will be admitted to Dr. Elliott due to intractable abdominal pain, diarrhea, nausea and vomiting. Was given IV pain medication and friend for nausea which aided in symptom relief. Undiagnosed new problem with uncertain prognosis? @ -No Drug Therapy requiring intensive monitoring for toxicity (Heparin, Nitro, Insulin, Cardizem)? @ -No Were any procedures done? @ -No Diagnosis/symptom? @ -Abdominal pain, diarrhea, nausea and vomiting. Acute, or Chronic, or Acute on Chronic? @ -Acute Uncomplicated (without systemic symptoms) or Complicated (systemic symptoms)? @ -Uncomplicated Side effects of treatment? @ -No Exacerbation, Progression, or Severe Exacerbation? @ -No Poses a threat to life or bodily function? How? (Chest pain, [place], [place], pneumonia, PE, COPD, DKA, ARF, appy, cholecystitis, CVA, Diverticulitis, Homicidal, Suicidal, threat to staff... and all critical care pts) @ -No - Lab Data Result diagrams: 01/01/24 11:11 01/01/24 11:11 Lab Results 01/01/24 01/01/2412/31/24 Range/Units 11:11 11:11 11:11 WBC 9.7 (3.8-10.6) k/uL RBC 4.69 (3.80-5.40) m/uL Hgb 11.9 (11.4-16.0) gm/dL Hct 38.4 (34.0-46.0) % MCV 81.8 (80.0-100.0) fL MCH 25.4 (25.0-35.0) pg MCHC 31.0 (31.0-37.0) g/dL RDW 16.0 H (11.5-15.5) % Plt Count 352 (150-450) k/uL MPV 8.2 Neutrophils % 57 % Lymphocytes % 33 % Monocytes % 5 % Eosinophils % 2 % Basophils % 1 % Neutrophils # 5.6 (1.3-7.7) k/uL Lymphocytes # 3.2 (1.0-4.8) k/uL Monocytes # 0.5 (0-1.0) k/uL Eosinophils # 0.2 (0-0.7) k/uL Basophils # 0.1 (0-0.2) k/uL Hypochromasia Moderate Anisocytosis Slight Sodium 139 (137-145) mmol/L Potassium 4.4 (3.5-5.1) mmol/L Chloride 107 (98-107) mmol/L Carbon Dioxide 23 (22-30) mmol/L Anion Gap 9 mmol/L BUN 9 (7-17) mg/dL Creatinine 0.57 (0.52-1.04) mg/dL Est GFR (CKD-EPI)AfAm >90 (>60 ml/min/1.73 sqM) Est GFR (CKD-EPI)NonAf >90 (>60 ml/min/1.73 sqM) Glucose 211 H (74-99) mg/dL Plasma Lactic Acid Adam (0.7-2.0) mmol/L Calcium 9.3 (8.4-10.2) mg/dL Phosphorus 4.9 H (2.5-4.5) mg/dL Magnesium 1.6 (1.6-2.3) mg/dL Total Bilirubin 0.5 (0.2-1.3) mg/dL AST 65 H (14-36) U/L ALT 44 H (4-34) U/L Alkaline Phosphatase 99 (38-126) U/L Total Protein 7.5 (6.3-8.2) g/dL Albumin 4.3 (3.5-5.0) g/dL Amylase 51 (30-110) U/L Lipase 92 (23-300) U/L Urine Color Colorless Urine Appearance Clear (Clear) Urine pH 5.5 (5.0-8.0) Ur Specific Meraux 1.015 (1.001-1.035) Urine Protein Negative (Negative) Urine Glucose (UA) Negative (Negative) Urine Ketones Negative (Negative) Urine Blood Negative (Negative) Urine Nitrite Negative (Negative) Urine Bilirubin Negative (Negative) Urine Urobilinogen <2.0 (<2.0) mg/dL Ur Leukocyte Esterase Large H (Negative) Urine WBC 23 H (0-5) /hpf Ur Squamous Epith Cells <1 (0-4) /hpf Urine Bacteria Rare H (None) /hpf Urine Mucus Rare H (None) /hpf 01/01/24 Range/Units 11:11 WBC (3.8-10.6) k/uL RBC (3.80-5.40) m/uL Hgb (11.4-16.0) gm/dL Hct (34.0-46.0) % MCV (80.0-100.0) fL MCH (25.0-35.0) pg MCHC (31.0-37.0) g/dL RDW (11.5-15.5) % Plt Count (150-450) k/uL MPV Neutrophils % % Lymphocytes % % Monocytes % % Eosinophils % % Basophils % % Neutrophils # (1.3-7.7) k/uL Lymphocytes # (1.0-4.8) k/uL Monocytes # (0-1.0) k/uL Eosinophils # (0-0.7) k/uL Basophils # (0-0.2) k/uL Hypochromasia Anisocytosis Sodium (137-145) mmol/L Potassium (3.5-5.1) mmol/L Chloride (98-107) mmol/L Carbon Dioxide (22-30) mmol/L Anion Gap mmol/L BUN (7-17) mg/dL Creatinine (0.52-1.04) mg/dL Est GFR (CKD-EPI)AfAm (>60 ml/min/1.73 sqM) Est GFR (CKD-EPI)NonAf (>60 ml/min/1.73 sqM) Glucose (74-99) mg/dL Plasma Lactic Acid Adam 1.6 (0.7-2.0) mmol/L Calcium (8.4-10.2) mg/dL Phosphorus (2.5-4.5) mg/dL Magnesium (1.6-2.3) mg/dL Total Bilirubin (0.2-1.3) mg/dL AST (14-36) U/L ALT (4-34) U/L Alkaline Phosphatase (38-126) U/L Total Protein (6.3-8.2) g/dL Albumin (3.5-5.0) g/dL Amylase (30-110) U/L Lipase (23-300) U/L Urine Color Urine Appearance (Clear) Urine pH (5.0-8.0) Ur Specific Meraux (1.001-1.035) Urine Protein (Negative) Urine Glucose (UA) (Negative) Urine Ketones (Negative) Urine Blood (Negative) Urine Nitrite (Negative) Urine Bilirubin (Negative) Urine Urobilinogen (<2.0) mg/dL Ur Leukocyte Esterase (Negative) Urine WBC (0-5) /hpf Ur Squamous Epith Cells (0-4) /hpf Urine Bacteria (None) /hpf Urine Mucus (None) /hpf Disposition Clinical Impression: Abdominal pain, Diarrhea, Nausea and vomiting Disposition: ADMITTED IP TO THIS [facility] Condition: Good Decision to Admit Reason: Admit from EC Decision Date: 01/01/24 Decision Time: 12:07
[2024-01-01 11:20] LABS: Anisocytosis Slight; Basophils # (A) 0.1 k/uL (0-0.2); Basophils % (A) 1 %; Eosinophils # (A) 0.2 k/uL (0-0.7); Eosinophils % (A) 2 %; HCT 38.4 % (34.0-46.0); HGB 11.9 gm/dL (11.4-16.0); Hypochromasia Moderate; Lymphocytes # (A) 3.2 k/uL (1.0-4.8); Lymphocytes % (A) 33 %; MCH 25.4 pg (25.0-35.0); MCV 81.8 fL (80.0-100.0); Mean Platelet Volume 8.2; Monocytes # (A) 0.5 k/uL (0-1.0); Monocytes % (A) 5 %; Neutrophils # (A) 5.6 k/uL (1.3-7.7); Neutrophils % (A) 57 %; Platelet Count 352 k/uL (150-450); RBC 4.69 m/uL (3.80-5.40); WBC 9.7 k/uL (3.8-10.6)
[2024-01-01 11:32] LABS: ALT 44 U/L (4-34); AST 65 U/L (14-36); African American GFR (CKD) >90 (>60 ml/min/1.73 sqM); Albumin 4.3 g/dL (3.5-5.0); Alkaline Phosphatase 99 U/L (38-126); Amylase 51 U/L (30-110); Anion Gap 9 mmol/L; Appearance,Urine Clear (Clear); Bacteria,Urine Rare /hpf; Bilirubin,Urine Negative (Negative); Blood Urea Nitrogen 9 mg/dL (7-17); Blood,Urine Negative (Negative); Calcium 9.3 mg/dL (8.4-10.2); Carbon Dioxide 23 mmol/L (22-30); Chloride 107 mmol/L (98-107); Color,Urine Colorless; Glucose 211 mg/dL (74-99); Glucose,Urine (UA) Negative (Negative); Ketones,Urine Negative (Negative); Leukocyte Esterase,Urine Large (Negative); Lipase 92 U/L (23-300); Magnesium 1.6 mg/dL (1.6-2.3); Mucus,Urine Rare /hpf; Nitrite,Urine Negative (Negative); Non-African American GFR(CKD) >90 (>60 ml/min/1.73 sqM); PH, Urine 5.5 (5.0-8.0); Phosphorus 4.9 mg/dL (2.5-4.5); Potassium 4.4 mmol/L (3.5-5.1); Protein,Urine Negative (Negative); Sodium 139 mmol/L (137-145); Specific Gravity,Urine 1.015 (1.001-1.035); Squamous Epithelial Cell,Urine <1 /hpf (0-4); Total Bilirubin 0.5 mg/dL (0.2-1.3); Total Protein 7.5 g/dL (6.3-8.2); Urobilinogen,Urine <2.0 mg/dL (<2.0); WBC,Urine 23 /hpf (0-5)
[2024-01-01] MEDS ORDERED: NALOXONE 0.4 MG/ML 1 ML VIAL IV PRN (12:04)
[2024-01-01] MEDS: HYDROmorphone 1 MG/ML 1 ML SYRINGE IVP STA (12:12)
[2024-01-01] MEDS: METOCLOPRAMIDE 5 MG/ML 2 ML VIAL IVP STA (12:13)
[2024-01-01] MEDS ORDERED: SUMAtriptan succinate 50 MG TAB PO PRN (16:38)
[2024-01-01] MEDS: DICYCLOMINE 20 MG TAB PO SCH (17:59)
[2024-01-01] MEDS: HYDROmorphone 1 MG/ML 1 ML SYRINGE IVP PRN (18:00)
[2024-01-01] MEDS: GABAPENTIN 300 MG CAP PO SCH (20:23)
[2024-01-01] MEDS: MIRTAZAPINE 15 MG TAB PO SCH (20:24)
[2024-01-01] MEDS: FAMOTIDINE 20 MG TAB PO SCH (20:24)
[2024-01-01] MEDS: FUROSEMIDE 20 MG TAB PO SCH (20:24)
[2024-01-01] MEDS: ATORVASTATIN 40 MG TAB PO SCH (20:24)
[2024-01-01] MEDS: PROPRANOLOL LA 80 MG CAP.SA.24H PO SCH (21:29)
[2024-01-01 23:02] LABS: Glucose,Whole Blood 120 mg/dL (70-110)
[2024-01-02] MEDS: ZOLPIDEM 5 MG TAB PO PRN (01:10)
[2024-01-02] MEDS: LOPERAMIDE 2 MG CAP PO PRN (03:24)
[2024-01-02 04:42] LABS: ALT 98 U/L (4-34); AST 261 U/L (14-36); African American GFR (CKD) >90 (>60 ml/min/1.73 sqM); Albumin 3.8 g/dL (3.5-5.0); Albumin/Globulin Ratio 1.3; Alkaline Phosphatase 125 U/L (38-126); Anion Gap 8 mmol/L; Blood Urea Nitrogen 11 mg/dL (7-17); Calcium 8.8 mg/dL (8.4-10.2); Carbon Dioxide 23 mmol/L (22-30); Chloride 104 mmol/L (98-107); Glucose 182 mg/dL (74-99); Non-African American GFR(CKD) >90 (>60 ml/min/1.73 sqM); Potassium 3.8 mmol/L (3.5-5.1); Sodium 135 mmol/L (137-145); Total Bilirubin 0.6 mg/dL (0.2-1.3); Total Protein 6.8 g/dL (6.3-8.2)
[2024-01-02 04:43] LABS: Basophils # (A) 0.1 k/uL (0-0.2); Basophils % (A) 1 %; Eosinophils # (A) 0.2 k/uL (0-0.7); Eosinophils % (A) 2 %; HCT 38.5 % (34.0-46.0); HGB 11.3 gm/dL (11.4-16.0); Hypochromasia Marked; Lymphocytes # (A) 3.3 k/uL (1.0-4.8); Lymphocytes % (A) 36 %; MCH 25.1 pg (25.0-35.0); MCHC 29.3 g/dL (31.0-37.0); MCV 85.5 fL (80.0-100.0); Mean Platelet Volume 8.1; Monocytes # (A) 0.6 k/uL (0-1.0); Monocytes % (A) 6 %; Neutrophils # (A) 4.9 k/uL (1.3-7.7); Neutrophils % (A) 53 %; Platelet Count 343 k/uL (150-450); RDW 15.9 % (11.5-15.5); WBC 9.2 k/uL (3.8-10.6)
[2024-01-02 06:03] LABS: Glucose,Whole Blood 162 mg/dL (70-110)
[2024-01-02] MEDS: ONDANSETRON 4 MG/2 ML VIAL IVP PRN (06:23)
[2024-01-02] MEDS: INSULIN DETEMIR (LEVEMIR) 100 UNIT/ML SYR SQ SCH (06:24)
[2024-01-02] MEDS ORDERED: metFORMIN 500 MG TAB PO SCH (07:30)
[2024-01-02] MEDS: ENOXAPARIN 40 MG/0.4 ML SYRINGE SQ SCH (08:47)
[2024-01-02] MEDS: GABAPENTIN 300 MG CAP PO SCH (08:48)
[2024-01-02] MEDS: LORATADINE 10 MG TAB PO SCH (08:48)
--- NOTE | 2024-01-02 08:48 | P.HPIM ---
History of Present Illness H&P Date: 01/01/24 This is a 53 year old female who presented to [facility] emergency room with a chief complaint of abdominal pain and diarrhea He was evaluated in the emergency room vital examination on presentation revealed a temperature of 98.2 pulse 97 respiration 18 and blood pressure 122/85 pulse ox 98% on room air Laboratory data reveals a white blood count of 9.7 hemoglobin 11.9 platelet c ount 352 sodium 139 potassium 4.4 chloride 107 CO2 23 BUN 9 creatinine 0.1 glucose 211 AST 65 ALT 44 urine analysis revealed large leukocyte esterase and 23 white blood cells in high power field Testing in the emergency room revealed no testing was done during emergency room visit, however computed tomography scan of the abdomen and pelvis was done on 12/19/2023 and revealed no suspicious abnormalities in the abdomen or pelvis Patient was admitted to medical floor for further evaluation and treatment gastroenterology consultation was requested Past Medical History Past Medical History: Asthma, Cancer, CVA/TIA, Diabetes Mellitus, Fibromyalgia, GERD/Reflux, Hyperlipidemia, Osteoarthritis (OA), Pneumonia Additional Past Medical History / Comment(s): Had Iron infusions in Apr 2019. Hx TIA 2015. Diabetic neuropathy eli feet, migraines, cervical disc disease, DDD, eli tinnitis, arthiritis bilateral shoulders, IBS, HX R arm fx yrs ago, R ovarian cyst, hiatal hernia, UTIs, urinary calculus, pancreatitis x 2, stomach ulcer. Hx cervical cancer. COVID 08/2020 History of Any Multi-Drug Resistant Organisms: C-DIFF Date of last positivie culture/infection: 2015 MDRO Source:: None Past Surgical History: Appendectomy, Bariatric Surgery, Cholecystectomy, Hysterectomy, Tonsillectomy Additional Past Surgical History / Comment(s): 2011 felix-en-Y, fistula repair 2011, 2011 gastric bypass revision, bowel resection, lap gastrojejunostomy anastamosis revision, EGD and colonoscopy, cone bx-cervical cancer removed with cryo, L fallopian tube removed due to cyst, picc line in and out, CERVICAL FUSION 12/21/16. Past Anesthesia/Blood Transfusion Reactions: Family History of Problems w/ Anesthesia, Motion Sickness, Postoperative Nausea & Vomiting (PONV) Additional Past Anesthesia/Blood Transfusion Reaction / Comment(s): Pt states she has never recieved blood. FAMILY HX PONV. Past Psychological History: Anxiety, Depression Smoking Status: Never smoker Past Alcohol Use History: None Reported Past Drug Use History: None Reported - Past Family History Brother(s) History Unknown: Yes Family Medical History: Deep Vein Thrombosis (DVT) Father Family Medical History: Cancer, Deep Vein Thrombosis (DVT), Pulmonary Embolus Additional Family Medical History / Comment(s): Father had poss colon and lung cancer and at age 73yrs. Mother History Unknown: Yes Family Medical History: Coronary Artery Disease (CAD), Diabetes Mellitus, Deep Vein Thrombosis (DVT), Hypertension, Pulmonary Embolus Additional Family Medical History / Comment(s): Mother is alive and 73 yrs old. Medications and Allergies Home Medications Medication Instructions Recorded Confirmed Type Cetirizine HCl [Zyrtec] 10 mg PO DAILY 06/13/18 01/01/24 History Mirtazapine [Remeron] 15 mg PO HS 10/08/18 01/01/24 History LORazepam [Ativan] 0.5 mg PO Q6H PRN 04/23/19 01/01/24 History Propranolol HCl [Inderal Xl] 80 mg PO HS 04/23/19 01/01/24 History Gabapentin 300 mg PO DAILY 02/28/22 01/01/24 History Rizatriptan Odt [Maxalt MANUFACTURING ENGINEERING DIRECTOR] 10 mg PO TID PRN 02/28/22 01/01/24 History metFORMIN HCL ER [Glucophage XR] 2,000 mg PO DAILY 02/28/22 01/01/24 History Furosemide [Lasix] 20 mg PO BID 02/16/23 01/01/24 History Simvastatin [Zocor] 80 mg PO HS 02/28/23 01/01/24 History Escitalopram [Lexapro] 20 mg PO DAILY 03/21/23 01/01/24 History Gabapentin 600 mg PO HS 11/17/23 01/01/24 History Insulin Glargine,Hum.rec.anlog 30 units SQ DAILY 11/17/23 01/01/24 History [Lantus Solostar Pen] Ondansetron Odt [Zofran ODT] 8 mg PO Q8HR PRN 11/17/23 01/01/24 History Tirzepatide [Mounjaro] 5 mg SQ FR 11/17/23 01/01/24 History Dicyclomine [Bentyl] 20 mg PO QID 30 Days #240 cap 12/05/23 01/01/24 Rx Loperamide [Imodium] 4 mg PO QID PRN 12/16/23 01/01/24 History Diphenoxylate HCl/Atropine 2 tab PO QID PRN 01/01/24 01/01/24 History [Lomotil 2.5-0.025 mg Tablet] Famotidine [Pepcid] 20 mg PO BID 01/01/24 01/01/24 History Allergies Allergy/AdvReac Type Severity Reaction Status Date / Time oxycodone [From Percocet] Allergy Unknown Swelling; Verified 01/01/24 12:28 (WAS ABLE TO TAKE ALONG WITH BENADRYL) apricot Allergy Dyspnea Verified 01/01/24 12:28 barium sulfate Allergy Anaphylaxis Verified 01/01/24 12:28 [From Readi-Cat] codeine Allergy Anaphylaxis Verified 01/01/24 12:28 fentanyl Allergy Rash/Hives Verified 01/01/24 12:28 hydrocodone [From Lortab] Allergy Swelling Verified 01/01/24 12:28 Iodinated Contrast Media Allergy Anaphylaxis Verified 01/01/24 12:28 iodine Allergy Rash/Hives Verified 01/01/24 12:28 iron Allergy Swelling Verified 01/01/24 12:28 levofloxacin [From Levaquin] Allergy Swelling Verified 01/01/24 12:28 morphine Allergy Rash/Hives, Verified 01/01/24 12:28 Nausea/Vomiting peach Allergy Swelling Verified 01/01/24 12:28 peanut Allergy Swelling Verified 01/01/24 12:28 peanut oil Allergy Anaphylaxis Verified 01/01/24 12:28 shellfish derived [Shellfish] Allergy Anaphylaxis Verified 01/01/24 12:28 strawberry Allergy Anaphylaxis Verified 01/01/24 12:28 sucralfate [From Carafate] Allergy Swelling Verified 01/01/24 12:28 Sulfa (Sulfonamide Allergy Anaphylaxis Verified 01/01/24 12:28 Antibiotics) sulfamethoxazole Allergy Anaphylaxis Verified 01/01/24 12:28 [From Bactrim] tree nut [Nut] Allergy Swelling Verified 01/01/24 12:28 trimethoprim [From Bactrim] Allergy Anaphylaxis Verified 01/01/24 12:28 metronidazole [From Flagyl] AdvReac "made me Verified 01/01/24 12:28 hot" Physical Exam Vitals: Vital Signs Temp Pulse Resp BP Pulse Ox 01/01/24 15:45 65 16 108/70 98 01/01/24 10:18 98.2 F 97 18 122/85 98 Intake and Output 01/01/24 01/01/24 01/01/24 06:59 14:59 22:59 Other: Weight 88.451 kg In general patient is alert and oriented x 3 in no distress HEENT head normocephalic and atraumatic Neck is supple no JVD no goiter no lymphadenopathy no carotid bruit Chest examination is clear to auscultation no crackles no wheezing Cardiac exam reveals regular heart sounds S1 and S2 no gallops no murmurs Abdomen is soft nontender no organomegaly with normal bowel sounds Extremity exam reveals no edema no cyanosis or clubbing Neurological examination reveals no gross focal deficits Results CBC & Chem 7: 01/01/24 11:11 01/01/24 11:11 Labs: Abnormal Lab Results - Last 24 Hours (Table) 01/01/24 01/01/24 01/01/24 Range/Units 11:11 11:11 11:11 RDW 16.0 H (11.5-15.5) % Glucose 211 H (74-99) mg/dL Phosphorus 4.9 H (2.5-4.5) mg/dL AST 65 H (14-36) U/L ALT 44 H (4-34) U/L Ur Leukocyte Esterase Large H (Negative) Urine WBC 23 H (0-5) /hpf Urine Bacteria Rare H (None) /hpf Urine Mucus Rare H (None) /hpf Assessment and Plan Plan: recurrent episodes of abdominal pain Episodes of diarrhea Underlying history of diabetes mellitus 2 Underlying history of hypertension Underlying history of hyperlipidemia Underlying history of fibromyalgia Underlying history of anxiety disorder and depression At this time patient will be admitted to medical floor Home medications reviewed and reordered, Will hold metformin at this time Urine culture ordered Will check stool studies Consultation for gastroenterology was initiated
--- NOTE | 2024-01-02 10:31 | P.PN ---
Subjective Progress Note Date: 01/02/24 This is a 53 year old female who presented to [facility] emergency room with a chief complaint of abdominal pain and diarrhea He was evaluated in the emergency room vital examination on presentation revealed a temperature of 98.2 pulse 97 respiration 18 and blood pressure 122/85 pulse ox 98% on room air Laboratory data reveals a white blood count of 9.7 hemoglobin 11.9 platelet count 352 sodium 139 potassium 4.4 chloride 107 CO2 23 BUN 9 creatinine 0.1 glucose 211 AST 65 ALT 44 urine analysis revealed large leukocyte esterase and 23 white blood cells in high power field Testing in the emergency room revealed no testing was done during emergency room visit, however computed tomography scan of the abdomen and pelvis was done on 12/19/2023 and revealed no suspicious abnormalities in the abdomen or pelvis Patient was admitted to medical floor for further evaluation and treatment gastroenterology consultation was requested On 01/02/2024 patient is alert and oriented 3. Patient still complaining of abdominal pain with diarrhea. Awaiting GI input. UA positive for urinary tract infection patient started on Rocephin urine culture ordered.Vital signs temp 98.2, heart rate 66, respiratory rate 16, blood pressure 100/70 with a pulse ox of 97% on room air. Objective - Vital Signs Vital signs: Vital Signs Temp 98.2 F 01/02/24 07:05 Pulse 66 01/02/24 08:00 Resp 16 01/02/24 08:00 BP 100/70 01/02/24 07:05 Pulse Ox 97 01/02/24 07:05 FiO2 Intake & Output 01/01/24 01/02/24 01/02/24 18:59 06:59 18:59 Intake Total 118 Balance 118 Weight 88.451 kg 88.451 kg Intake: Oral 118 Other: Voiding Method Toilet # Voids 1 # Bowel Movements 5 - Exam In general patient is alert and oriented x 3 in no distress HEENT head normocephalic and atraumatic Neck is supple no JVD no goiter no lymphadenopathy no carotid bruit Chest examination is clear to auscultation no crackles no wheezing Cardiac exam reveals regular heart sounds S1 and S2 no gallops no murmurs Abdomen is soft nontender no organomegaly with normal bowel sounds Extremity exam reveals no edema no cyanosis or clubbing Neurological examination reveals no gross focal deficits - Labs CBC & Chem 7: 01/02/24 03:37 01/02/24 03:37 Labs: Abnormal Lab Results - Last 24 Hours (Table) 01/01/24 01/01/24 01/01/24 Range/Units 11:11 11:11 11:11 Hgb (11.4-16.0) gm/dL MCHC (31.0-37.0) g/dL RDW 16.0 H (11.5-15.5) % Sodium (137-145) mmol/L Glucose 211 H (74-99) mg/dL POC Glucose (mg/dL) (70-110) mg/dL Phosphorus 4.9 H (2.5-4.5) mg/dL AST 65 H (14-36) U/L ALT 44 H (4-34) U/L Ur Leukocyte Esterase Large H (Negative) Urine WBC 23 H (0-5) /hpf Urine Bacteria Rare H (None) /hpf Urine Mucus Rare H (None) /hpf 01/01/24 01/02/24 01/02/24 Range/Units 23:00 03:37 03:37 Hgb 11.3 L (11.4-16.0) gm/dL MCHC 29.3 L (31.0-37.0) g/dL RDW 15.9 H (11.5-15.5) % Sodium 135 L (137-145) mmol/L Glucose 182 H (74-99) mg/dL POC Glucose (mg/dL) 120 H (70-110) mg/dL Phosphorus (2.5-4.5) mg/dL AST 261 H (14-36) U/L ALT 98 H (4-34) U/L Ur Leukocyte Esterase (Negative) Urine WBC (0-5) /hpf Urine Bacteria (None) /hpf Urine Mucus (None) /hpf 01/02/24 Range/Units 06:01 Hgb (11.4-16.0) gm/dL MCHC (31.0-37.0) g/dL RDW (11.5-15.5) % Sodium (137-145) mmol/L Glucose (74-99) mg/dL POC Glucose (mg/dL) 162 H (70-110) mg/dL Phosphorus (2.5-4.5) mg/dL AST (14-36) U/L ALT (4-34) U/L Ur Leukocyte Esterase (Negative) Urine WBC (0-5) /hpf Urine Bacteria (None) /hpf Urine Mucus (None) /hpf Assessment and Plan Plan: recurrent episodes of abdominal pain Episodes of diarrhea Urinary tract infection Underlying history of diabetes mellitus 2 Underlying history of hypertension Underlying history of hyperlipidemia Underlying history of fibromyalgia Underlying history of anxiety disorder and depression At this time patient will be admitted to medical floor Home medications reviewed and reordered, Will hold metformin at this time Urine culture ordered Will check stool studies Consultation for gastroenterology was initiated
[2024-01-02] MEDS: ESCITALOPRAM 20 MG TAB PO SCH (10:52)
[2024-01-02 11:53] LABS: Glucose,Whole Blood 103 mg/dL (70-110)
--- NOTE | 2024-01-02 14:04 | P.CONS ---
History of Present Illness - Reason for Consult Consult date: 01/02/24 abdominal pain Requesting physician: Bushra Elliott - Chief Complaint Diarrhea, abdominal pain - History of Present Illness This is a pleasant 53-year-old female who was recently hospitalized for ongoing diarrhea, nausea vomiting and lower abdominal pain ongoing for 2 to 3 months and discharged on 12/19/2023. After her most recent discharge she has followed with Simeon Grace nurse practitioner with gastroenterology she was taken off her Questran and put on Bentyl and Lomotil. Patient states that she seems to be doing better and then over the last couple days she was having increased abdominal pain. She continues to have multiple bowel movements a day. That are loose, non-bloody. Patient has had diarrhea ongoing since September however has progressively had gotten worse over the last 3-4 weeks duration. Patient was admitted to this hospital on 11/16/2023 and discharged on 12/05/2023. She had been complaining of diarrhea and abdominal cramping and discomfort. She had a CT of the abdomen pelvis with no significant interval change. No acute CT abnormality in the abdomen or pelvis. She reports that she was bitten by a dog on September 26, 2023. At that time she was started on clindamycin. Shortly after that she started having diarrhea. Diarrhea was getting worse they assumed patient had C. difficile and she was started on vancomycin Although C. diffic ile was negative. She states she continued to have diarrhea. When asked if she started any new medications only new medication was her Mounjaro which she states she started around middle to end of September. She reports having up to 18 bowel movements a day. Small to medium amount. Nonbloody. She had stool cultures which were negative, stool lactoferrin positive, stool cryptosporidium negative, stool Giardia antigen negative. Ova and parasites ordered however currently pending. During her last hospitalization she did undergo colonoscopy on 11/28/[address] Contreras with findings of grade 1 internal hemorrhoids. Multiple biopsies were taken. Biopsy results show no microscopic colitis. She also underwent upper endoscopy with Dr. 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 Stool cultures have been negative to date. As well as recent C. difficile. Stool lactoferrin during last hospitalization was positive. Stool pancreatic last days was slightly low at 196.0 mcg/G She currently states that she had about 5 bowel movements since early this morning, reports them as loose and sometimes watery. Some lower abdominal cramping, no nausea or vomiting. She has been afebrile. Review of Systems REVIEW OF SYSTEMS: CARDIOPULMONARY: No chest pain or shortness of breath. Gastrointestinal: Abdominal cramping. No nausea or vomiting. No hematemesis, coffee-ground emesis. Chronic diarrhea. No rectal bleeding, or melena. GENITOURINARY: No dysuria or hematuria. MUSCULOSKELETAL: Reports normal range of motion. SKIN: No rashes. No jaundice. ENDOCRINE: No chills, fevers. No excessive weight gain or loss. No polydipsia or polyuria. PSYCHIATRIC: Unremarkable. NEUROLOGY: No change in mental status. Denies dizziness, headache. ENT: Vision unremarkable. CONSTITUTIONAL: No recent weight loss. No fever, chills, night sweats. Past Medical History Past Medical History: Asthma, Cancer, CVA/TIA, Diabetes Mellitus, Fibromyalgia, GERD/Reflux, Hyperlipidemia, Osteoarthritis (OA), Pneumonia Additional Past Medical History / Comment(s): Had Iron infusions in Apr 2019. Hx TIA 2015. Diabetic neuropathy eli feet, migraines, cervical disc disease, DDD, eli tinnitis, arthiritis bilateral shoulders, IBS, HX R arm fx yrs ago, R ovarian cyst, hiatal hernia, UTIs, urinary calculus, pancreatitis x 2, stomach ulcer. Hx cervical cancer. COVID 08/2020 History of Any Multi-Drug Resistant Organisms: C-DIFF Year Discovered:: 2016 MDRO Source:: None Past Surgical History: Appendectomy, Bariatric Surgery, Cholecystectomy, Hysterectomy, Tonsillectomy Additional Past Surgical History / Comment(s): 2010 felix-en-Y, fistula repair 2011, 2011 gastric bypass revision, bowel resection, lap gastrojejunostomy anastamosis revision, EGD and colonoscopy, cone bx-cervical cancer removed with cryo, L fallopian tube removed due to cyst, picc line in and out, CERVICAL FUSION 12/21/16. Past Anesthesia/Blood Transfusion Reactions: Family History of Problems w/ Anesthesia, Motion Sickness, Postoperative Nausea & Vomiting (PONV) Additional Past Anesthesia/Blood Transfusion Reaction / Comm: Pt states she has never recieved blood. FAMILY HX PONV. Past Psychological History: Anxiety, Depression Additional Psychological History / Comment(s): Pt lives with her significant other-common law . Smoking Status: Never smoker Past Alcohol Use History: None Reported Past Drug Use History: None Reported Additional Drug Use History / Comment(s): Pt has a medical marijuana card and tried using it for pain control but it makes her nauseated so she does not use marijuana at all. - Past Family History Brother(s) History Unknown: Yes Family Medical History: Deep Vein Thrombosis (DVT) Father Family Medical History: Cancer, Deep Vein Thrombosis (DVT), Pulmonary Embolus Additional Family Medical History / Comment(s): Father had poss colon and lung cancer and at age 73yrs. Mother History Unknown: Yes Family Medical History: Coronary Artery Disease (CAD), Diabetes Mellitus, Deep Vein Thrombosis (DVT), Hypertension, Pulmonary Embolus Additional Family Medical History / Comment(s): Mother is alive and 73 yrs old. Medications and Allergies Home Medications Medication Instructions Recorded Confirmed Type Cetirizine HCl [Zyrtec] 10 mg PO DAILY 06/13/18 01/01/24 History Mirtazapine [Remeron] 15 mg PO HS 10/08/18 01/01/24 History LORazepam [Ativan] 0.5 mg PO Q6H PRN 04/23/19 01/01/24 History Propranolol HCl [Inderal Xl] 80 mg PO HS 04/23/19 01/01/24 History Gabapentin 300 mg PO DAILY 02/28/22 01/01/24 History Rizatriptan Odt [Maxalt VALUER] 10 mg PO TID PRN 02/28/22 01/01/24 History metFORMIN HCL ER [Glucophage XR] 2,000 mg PO DAILY 02/28/22 01/01/24 History Furosemide [Lasix] 20 mg PO BID 02/16/23 01/01/24 History Simvastatin [Zocor] 80 mg PO HS 02/28/23 01/01/24 History Escitalopram [Lexapro] 20 mg PO DAILY 03/21/23 01/01/24 History Gabapentin 600 mg PO HS 11/17/23 01/01/24 History Insulin Glargine,Hum.rec.anlog 30 units SQ DAILY 11/17/23 01/01/24 History [Lantus Solostar Pen] Ondansetron Odt [Zofran ODT] 8 mg PO Q8HR PRN 11/17/23 01/01/24 History Tirzepatide [Mounjaro] 5 mg SQ FR 11/17/23 01/01/24 History Dicyclomine [Bentyl] 20 mg PO QID 30 Days #240 cap 12/05/23 01/01/24 Rx Loperamide [Imodium] 4 mg PO QID PRN 12/16/23 01/01/24 History Diphenoxylate HCl/Atropine 2 tab PO QID PRN 01/01/24 01/01/24 History [Lomotil 2.5-0.025 mg Tablet] Famotidine [Pepcid] 20 mg PO BID 01/01/24 01/01/24 History Allergies Allergy/AdvReac Type Severity Reaction Status Date / Time oxycodone [From Percocet] Allergy Unknown Swelling; Verified 01/01/24 12:28 (WAS ABLE TO TAKE ALONG WITH BENADRYL) apricot Allergy Dyspnea Verified 01/01/24 12:28 barium sulfate Allergy Anaphylaxis Verified 01/01/24 12:28 [From Readi-Cat] codeine Allergy Anaphylaxis Verified 01/01/24 12:28 fentanyl Allergy Rash/Hives Verified 01/01/24 12:28 hydrocodone [From Lortab] Allergy Swelling Verified 01/01/24 12:28 Iodinated Contrast Media Allergy Anaphylaxis Verified 01/01/24 12:28 iodine Allergy Rash/Hives Verified 01/01/24 12:28 iron Allergy Swelling Verified 01/01/24 12:28 levofloxacin [From Levaquin] Allergy Swelling Verified 01/01/24 12:28 morphine Allergy Rash/Hives, Verified 01/01/24 12:28 Nausea/Vomiting peach Allergy Swelling Verified 01/01/24 12:28 peanut Allergy Swelling Verified 01/01/24 12:28 peanut oil Allergy Anaphylaxis Verified 01/01/24 12:28 shellfish derived [Shellfish] Allergy Anaphylaxis Verified 01/01/24 12:28 strawberry Allergy Anaphylaxis Verified 01/01/24 12:28 sucralfate [From Carafate] Allergy Swelling Verified 01/01/24 12:28 Sulfa (Sulfonamide Allergy Anaphylaxis Verified 01/01/24 12:28 Antibiotics) sulfamethoxazole Allergy Anaphylaxis Verified 01/01/24 12:28 [From Bactrim] tree nut [Nut] Allergy Swelling Verified 01/01/24 12:28 trimethoprim [From Bactrim] Allergy Anaphylaxis Verified 01/01/24 12:28 metronidazole [From Flagyl] AdvReac "made me Verified 01/01/24 12:28 hot" Physical Exam Vitals: Vital Signs Temp Pulse Pulse Resp BP BP BP 01/02/24 07:05 98.2 F 66 16 100/70 01/02/24 01:26 97.5 F L 78 16 106/66 01/02/24 00:17 81 18 117/77 01/01/24 23:32 67 18 114/76 01/01/24 17:26 79 18 100/69 01/01/24 15:45 65 16 108/70 01/01/24 10:18 98.2 F 97 18 122/85 Pulse Ox 01/02/24 07:05 97 01/02/24 01:26 96 01/02/24 00:17 98 01/01/24 23:32 98 01/01/24 17:26 98 01/01/24 15:45 98 01/01/24 10:18 98 Intake and Output 01/01/24 01/02/24 01/02/24 22:59 06:59 14:59 Intake Total 118 Balance 118 Intake: Oral 118 Other: # Voids 1 # Bowel Movements 5 Weight 88.451 kg General appearance: The patient is alert, oriented, appears in no acute distress. HET: Head is normocephalic and atraumatic. Conjunctiva pink. Sclera anicteric. Neck: Supple without lymphadenopathy. Trachea midline. Heart: Regular. Lungs: Equal expansion, normal respiratory effort. Abdomen: Soft, nontender, nondistended. Skin: No rashes. No jaundice. Extremities: Normal skin color and turgor. No pedal edema. Neurological: No focal deficits. Alert and oriented x3. Results CBC & Chem 7: 01/02/24 03:37 01/02/24 03:37 Labs: Abnormal Lab Results - Last 24 Hours (Table) 01/01/24 01/01/24 01/01/24 Range/Units 11:11 11:11 11:11 Hgb (11.4-16.0) gm/dL MCHC (31.0-37.0) g/dL RDW 16.0 H (11.5-15.5) % Sodium (137-145) mmol/L Glucose 211 H (74-99) mg/dL POC Glucose (mg/dL) (70-110) mg/dL Phosphorus 4.9 H (2.5-4.5) mg/dL AST 65 H (14-36) U/L ALT 44 H (4-34) U/L Ur Leukocyte Esterase Large H (Negative) Urine WBC 23 H (0-5) /hpf Urine Bacteria Rare H (None) /hpf Urine Mucus Rare H (None) /hpf 01/01/24 01/02/24 01/02/24 Range/Units 23:00 03:37 03:37 Hgb 11.3 L (11.4-16.0) gm/dL MCHC 29.3 L (31.0-37.0) g/dL RDW 15.9 H (11.5-15.5) % Sodium 135 L (137-145) mmol/L Glucose 182 H (74-99) mg/dL POC Glucose (mg/dL) 120 H (70-110) mg/dL Phosphorus (2.5-4.5) mg/dL AST 261 H (14-36) U/L ALT 98 H (4-34) U/L Ur Leukocyte Esterase (Negative) Urine WBC (0-5) /hpf Urine Bacteria (None) /hpf Urine Mucus (None) /hpf 01/02/24 Range/Units 06:01 Hgb (11.4-16.0) gm/dL MCHC (31.0-37.0) g/dL RDW (11.5-15.5) % Sodium (137-145) mmol/L Glucose (74-99) mg/dL POC Glucose (mg/dL) 162 H (70-110) mg/dL Phosphorus (2.5-4.5) mg/dL AST (14-36) U/L ALT (4-34) U/L Ur Leukocyte Esterase (Negative) Urine WBC (0-5) /hpf Urine Bacteria (None) /hpf Urine Mucus (None) /hpf Assessment and Plan (1) Chronic diarrhea Narrative/Plan: 53-year-old female admitted for the third time regarding chronic diarrhe over the last 3 months duration. Patient has had multiple workup including upper and lower endoscopy, multiple stool samplesa all which have been negative. Unclear etiology. She is following with gastroenterology and was recently seen and changed to Lomotil 2 tablets 4 times daily as well as Bentyl 4 times daily with discontinuing Questran and Imodium. C. difficile will be repeated, stool culture was also ordered in the emergency room. Currently pending. Further recommendations forthcoming. Current Visit: Yes Status: Acute Code(s): K52.9 - NONINFECTIVE GASTROENTERITIS AND COLITIS, UNSPECIFIED SNOMED Code(s): 818714994 (2) Abdominal pain Current Visit: Yes Status: Acute Code(s): R10.9 - UNSPECIFIED ABDOMINAL PAIN SNOMED Code(s): 18934337 (3) Elevated LFTs Narrative/Plan: Mildly elevated LFTs, unclear etiology. Will continue to trend. Current Visit: Yes Status: Acute Code(s): R79.89 - OTHER SPECIFIED ABNORMAL FINDINGS OF BLOOD CHEMISTRY SNOMED Code(s): 069094638 Plan: 1. Continue symptomatic and supportive care 2. Consistent carbohydrate diet 3. Repeat stool C. difficile 4. Stool cultures pending 5. Continue Lomotil 2 tablets 4 times daily 6. Continue dicyclomine 20 mg p.o. 4 times daily 7. Discontinue Questran and Imodium 8. Further recommendations forthcoming based on clinical course Thank you for this consultation, we will continue to follow. Dr. Anupam Joseph I agree with the dictator's note, documented as a scribe by Karely Rodriguez.
[2024-01-02 16:53] LABS: Glucose,Whole Blood 150 mg/dL (70-110)
[2024-01-02 19:54] LABS: Glucose,Whole Blood 132 mg/dL (70-110)
[2024-01-02] MEDS: LORazepam 0.5 MG TAB PO PRN (20:34)
[2024-01-02] MEDS: HYDROcodone/APAP 5-325MG 1 EACH TAB PO PRN (21:21)
[2024-01-03 06:01] LABS: Glucose,Whole Blood 168 mg/dL (70-110)
[2024-01-03 08:54] LABS: Basophils # (A) 0.1 k/uL (0-0.2); Basophils % (A) 1 %; Eosinophils # (A) 0.2 k/uL (0-0.7); Eosinophils % (A) 3 %; HCT 38.9 % (34.0-46.0); HGB 11.8 gm/dL (11.4-16.0); Hypochromasia Slight; Lymphocytes # (A) 3.8 k/uL (1.0-4.8); Lymphocytes % (A) 41 %; MCH 24.4 pg (25.0-35.0); MCHC 30.2 g/dL (31.0-37.0); Mean Platelet Volume 7.8; Monocytes # (A) 0.5 k/uL (0-1.0); Monocytes % (A) 6 %; Neutrophils # (A) 4.4 k/uL (1.3-7.7); Neutrophils % (A) 47 %; Platelet Count 367 k/uL (150-450); RBC 4.81 m/uL (3.80-5.40); RDW 15.7 % (11.5-15.5); WBC 9.2 k/uL (3.8-10.6)
[2024-01-03 09:17] LABS: ALT 155 U/L (4-34); AST 220 U/L (14-36); African American GFR (CKD) >90 (>60 ml/min/1.73 sqM); Albumin 4.1 g/dL (3.5-5.0); Alkaline Phosphatase 159 U/L (38-126); Anion Gap 9 mmol/L; Blood Urea Nitrogen 10 mg/dL (7-17); Carbon Dioxide 26 mmol/L (22-30); Chloride 102 mmol/L (98-107); Glucose 137 mg/dL (74-99); Non-African American GFR(CKD) >90 (>60 ml/min/1.73 sqM); Potassium 3.9 mmol/L (3.5-5.1); Sodium 137 mmol/L (137-145); Total Bilirubin 0.7 mg/dL (0.2-1.3); Total Protein 7.2 g/dL (6.3-8.2)
[2024-01-03] MEDS: ONDANSETRON ODT 8 MG TAB.RAPDIS PO PRN (09:53)
--- NOTE | 2024-01-03 10:57 | US ---
EXAMINATION TYPE: US liver DATE OF EXAM: 01/03/2024 COMPARISON: NONE CLINICAL INDICATION: Female, 53 years old with history of elevated liver enzymes; GB removed. Abnorma l labs. TECHNIQUE: Multiple sonographic images of the right upper quadrant are obtained. FINDINGS: EXAM MEASUREMENTS: Liver Length: 16.2 cm CBD: 0.8 cm Right Kidney: 8.8 x 4.3 x 4.9 cm Pancreas: Obscured by bowel gas Liver: wnl as visualized, limited due to bowel gas Gallbladder: Surgically absent Evidence for sonographic Nixon's sign: neg CBD: wnl for post cholecystectomy status Right Kidney: No hydronephrosis or masses seen IMPRESSION: 1. Limited evaluation due to bowel gas. 2. No evidence for acute process.
[2024-01-03 11:41] LABS: Glucose,Whole Blood 202 mg/dL (70-110)
--- NOTE | 2024-01-03 13:48 | P.PN ---
Subjective Progress Note Date: 01/03/24 Principal diagnosis: Chronic diarrhea, abdominal pain This is a pleasant 53-year-old female who was recently hospitalized for ongoing diarrhea, nausea vomiting and lower abdominal pain ongoing for 2 to 3 months and discharged on 12/19/2023. After her most recent discharge she has followed with Simeon Grace nurse practitioner with gastroenterology she was taken off her Questran and put on Bentyl and Lomotil. Patient states that she seems to be doing better and then over the last couple days she was having increased abdominal pain. She continues to have multiple bowel movements a day. That are loose, non-bloody. Patient has had diarrhea ongoing since September however has progressively had gotten worse over the last 3-4 weeks duration. Patient was admitted to this hospital on 11/16/2023 and discharged on 12/05/2023. She had been complaining of diarrhea and abdominal cramping and discomfort. She had a CT of the abdomen pelvis with no significant interval change. No acute CT abnormality in the abdomen or pelvis. She reports that she was bitten by a dog on September 26, 2023. At that time she was started on clindamycin. Shortly after that she started having diarrhea. Diarrhea was getting worse they assumed patient had C. difficile and she was started on vancomycin Although C. difficile was negative. She states she continued to have diarrhea. When asked if she started any new medications only new medication was her Mounjaro which she states she started around middle to end of September. She reports having up to 18 bowel movements a day. Small to medium amount. Nonbloody. She had stool cultures which were negative, stool lactoferrin positive, stool cryptosporidium negative, stool Giardia antigen negative. Ova and parasites ordered however currently pending. During her last hospitalization she did undergo colonoscopy on 11/28/[address] Contreras with findings of grade 1 internal hemorrhoids. Multiple biopsies were taken. Biopsy results show no microscopic colitis. She also underwent upper endoscopy with Dr. 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 Stool cultures have been negative to date. As well as recent C. difficile. Stool lactoferrin during last hospitalization was positive. Stool pancreatic last days was slightly low at 196.0 mcg/G She currently states that she had about 5 bowel movements since early this morning, reports them as loose and sometimes watery. Some lower abdominal cramping, no nausea or vomiting. She has been afebrile. 01/03/2024 Patient seen and examined today as a follow-up. She states she is still having some abdominal cramping reports that is mostly in the pelvis. Appears that she is on ceftriaxone for possible urinary tract infection. Denies any nausea or vomiting. States has good appetite and eating well. Had 4-5 green small bowel movements throughout the night. LFTs continue to increase. Patient has a long history of elevated LFTs back as far as 2013 however they have been mild elevation. Ultrasound was ordered by primary care physician with no acute findings. Stool C. difficile was negative. Stool cultures pending. Patient denies any new medications. States she has been on her statin for many years. She is currently not taking Mounjaro and has not had it since September. Objective - Vital Signs Vital signs: Vital Signs Temp 98.2 F 01/03/24 08:00 Pulse 64 01/03/24 08:00 Resp 17 01/03/24 08:00 BP 95/64 01/03/24 08:00 Pulse Ox 95 01/03/24 08:00 FiO2 Intake & Output 01/02/24 01/03/24 01/03/24 18:59 06:59 18:59 Intake Total 118 Balance 118 Intake: Oral 118 Other: Voiding Method Toilet # Voids 8 4 # Bowel Movements 1 3 - Exam General appearance: The patient is alert, oriented, appears in no acute d istress. HET: Head is normocephalic and atraumatic. Conjunctiva pink. Sclera anicteric. Neck: Supple without lymphadenopathy. Abdomen: Soft, no mid or upper abdominal tenderness, patient has tenderness in her pelvis, no abdominal distention. Extremities: Normal skin color and turgor. No pedal edema Skin: No rashes, no jaundice Neurological: No focal deficits. Alert and oriented. - Labs CBC & Chem 7: 01/03/24 08:12 01/03/24 08:09 Labs: Abnormal Lab Results - Last 24 Hours (Table) 01/01/24 01/02/24 01/02/24 Range/Units 11:11 16:51 19:52 MCH (25.0-35.0) pg MCHC (31.0-37.0) g/dL RDW (11.5-15.5) % Glucose (74-99) mg/dL POC Glucose (mg/dL) 150 H 132 H (70-110) mg/dL Hemoglobin A1c 7.6 H (<=6.0) % AST (14-36) U/L ALT (4-34) U/L Alkaline Phosphatase (38-126) U/L 01/03/24 01/03/24 01/03/24 Range/Units 06:00 08:09 08:12 MCH 24.4 L (25.0-35.0) pg MCHC 30.2 L (31.0-37.0) g/dL RDW 15.7 H (11.5-15.5) % Glucose 137 H (74-99) mg/dL POC Glucose (mg/dL) 168 H (70-110) mg/dL Hemoglobin A1c (<=6.0) % AST 220 H (14-36) U/L ALT 155 H (4-34) U/L Alkaline Phosphatase 159 H (38-126) U/L 01/03/24 Range/Units 11:39 MCH (25.0-35.0) pg MCHC (31.0-37.0) g/dL RDW (11.5-15.5) % Glucose (74-99) mg/dL POC Glucose (mg/dL) 202 H (70-110) mg/dL Hemoglobin A1c (<=6.0) % AST (14-36) U/L ALT (4-34) U/L Alkaline Phosphatase (38-126) U/L Assessment and Plan (1) Chronic diarrhea Narrative/Plan: 53-year-old female admitted for the third time regarding chronic diarrhe over the last 3 months duration. Patient has had multiple workup including upper and lower endoscopy, multiple stool samplesa all which have been negative. Unclear etiology. She is following with gastroenterology and was recently seen and changed to Lomotil 2 tablets 4 times daily as well as Bentyl 4 times daily with discontinuing Questran and Imodium. C. difficile will be repeated, stool culture was also ordered in the emergency room. Stool C. difficile I will negative, stool cultures pending. Likely this is secondary to irritable bowel syndrome. Patient has had multiple workup continue with Bentyl and Lomotil as ordered. Current Visit: Yes Status: Acute Code(s): K52.9 - NONINFECTIVE GASTROENTERITIS AND COLITIS, UNSPECIFIED SNOMED Code(s): 403175188 (2) Abdominal pain Current Visit: Yes Status: Acute Code(s): R10.9 - UNSPECIFIED ABDOMINAL PAIN SNOMED Code(s): 42661844 (3) Elevated LFTs Narrative/Plan: Elevated LFTs, unclear etiology. Patient has history of mildly elevated LFTs dating back to 2013, possibly secondary to fatty liver. Patient has been on her statin for many years. No increase in dosage. No other new medications other than patient was started on ceftriaxone this admission for suspected urinary tract infection per primary medical team. Will continue to trend. Liver ultrasound ordered with no acute findings. Current Visit: Yes Status: Acute Code(s): R79.89 - OTHER SPECIFIED ABNORMAL FINDINGS OF BLOOD CHEMISTRY SNOMED Code(s): 650681372 Plan: 1. Continue symptomatic and supportive care 2. Consistent carbohydrate diet 3. Repeat stool C. difficile negative 4. Stool cultures pending 5. Continue Lomotil 2 tablets 4 times daily 6. Continue dicyclomine 20 mg p.o. 4 times daily 7. Discontinue Questran and Imodium 8. Repeat CMP tomorrow 9. Consider changing IV antibiotics, LFTs may be medication induced 10. Avoid hepatotoxic medications 11. No plans on endoscopic evaluation Thank you for this consultation, we will continue to follow. Dr. Anupam Josehp I agree with the dictator's note, documented as a scribe by Karely Rodriguez.
[2024-01-03 16:04] VITALS: RESP 16
--- NOTE | 2024-01-03 16:42 | P.PN ---
Subjective Progress Note Date: 01/03/24 This is a 53 year old female who presented to [facility] emergency room with a chief complaint of abdominal pain and diarrhea He was evaluated in the emergency room vital examination on presentation revealed a temperature of 98.2 pulse 97 respiration 18 and blood pressure 122/85 pulse ox 98% on room air Laboratory data reveals a white blood count of 9.7 hemoglobin 11.9 platelet count 352 sodium 139 potassium 4.4 chloride 107 CO2 23 BUN 9 creatinine 0.1 glucose 211 AST 65 ALT 44 urine analysis revealed large leukocyte esterase and 23 white blood cells in high power field Testing in the emergency room revealed no testing was done during emergency room visit, however computed tomography scan of the abdomen and pelvis was done on 12/19/2023 and revealed no suspicious abnormalities in the abdomen or pelvis Patient was admitted to medical floor for further evaluation and treatment gastroenterology consultation was requested On 01/02/2024 patient is alert and oriented 3. Patient still complaining of abdominal pain with diarrhea. Awaiting GI input. UA positive for urinary tract infection patient started on Rocephin urine culture ordered.Vital signs temp 98.2, heart rate 66, respiratory rate 16, blood pressure 100/70 with a pulse ox of 97% on room air.. on 01/03/2024 patient was seen and examined on the medical floor she is alert and oriented 3 in no apparent distress, she is still complaining of abdominal pain and diarrhea otherwise she denies any complaints, there is no fever or chills no headache or dizziness no chest pain no shortness of breath no cough no nausea or vomiting no blood in the stools no burning was urination no frequency or urgency and no hematuria, liver enzymes are elevated, will check liver ultrasound, discontinue IV Rocephin, check urine analysis again. Objective - Vital Signs Vital signs: Vital Signs Temp 98.2 F 01/03/24 08:00 Pulse 64 01/03/24 08:00 Resp 17 01/03/24 08:00 BP 95/64 01/03/24 08:00 Pulse Ox 95 01/03/24 08:00 FiO2 Intake & Output 01/02/24 01/03/24 01/03/24 18:59 06:59 18:59 Intake Total 118 Balance 118 Intake: Oral 118 Other: Voiding Method Toilet # Voids 8 4 # Bowel Movements 1 3 - Exam In general patient is alert and oriented x 3 in no distress HEENT head normocephalic and atraumatic Neck is supple no JVD no goiter no lymphadenopathy no carotid bruit Chest examination is clear to auscultation no crackles no wheezing Cardiac exam reveals regular heart sounds S1 and S2 no gallops no murmurs Abdomen is soft nontender no organomegaly with normal bowel sounds Extremity exam reveals no edema no cyanosis or clubbing Neurological examination reveals no gross focal deficits - Labs CBC & Chem 7: 01/03/24 08:12 01/03/24 08:09 Labs: Abnormal Lab Results - Last 24 Hours (Table) 01/01/24 01/02/24 01/02/24 Range/Units 11:11 16:51 19:52 MCH (25.0-35.0) pg MCHC (31.0-37.0) g/dL RDW (11.5-15.5) % Glucose (74-99) mg/dL POC Glucose (mg/dL) 150 H 132 H (70-110) mg/dL Hemoglobin A1c 7.6 H (<=6.0) % AST (14-36) U/L ALT (4-34) U/L Alkaline Phosphatase (38-126) U/L 01/03/24 01/03/24 01/03/24 Range/Units 06:00 08:09 08:12 MCH 24.4 L (25.0-35.0) pg MCHC 30.2 L (31.0-37.0) g/dL RDW 15.7 H (11.5-15.5) % Glucose 137 H (74-99) mg/dL POC Glucose (mg/dL) 168 H (70-110) mg/dL Hemoglobin A1c (<=6.0) % AST 220 H (14-36) U/L ALT 155 H (4-34) U/L Alkaline Phosphatase 159 H (38-126) U/L Assessment and Plan Plan: recurrent episodes of abdominal pain Episodes of diarrhea Urinary tract infection Underlying history of diabetes mellitus 2 Underlying history of hypertension Underlying history of hyperlipidemia Underlying history of fibromyalgia Underlying history of anxiety disorder and depression At this time patient will be admitted to medical floor Home medications reviewed and reordered, Will hold metformin at this time Urine culture ordered Will check stool studies Consultation for gastroenterology was initiated
[2024-01-03 17:16] LABS: Appearance,Urine Clear (Clear); Bilirubin,Urine Negative (Negative); Blood,Urine Negative (Negative); Color,Urine Colorless; Glucose,Urine (UA) Negative (Negative); Ketones,Urine Negative (Negative); Leukocyte Esterase,Urine Negative (Negative); Nitrite,Urine Negative (Negative); PH, Urine 5.5 (5.0-8.0); Protein,Urine Negative (Negative); Specific Gravity,Urine 1.007 (1.001-1.035); Urobilinogen,Urine <2.0 mg/dL (<2.0)
[2024-01-03 17:28] LABS: Glucose,Whole Blood 188 mg/dL (70-110)
[2024-01-03 21:12] LABS: Glucose,Whole Blood 212 mg/dL (70-110)
[2024-01-04 06:21] LABS: Glucose,Whole Blood 174 mg/dL (70-110)
[2024-01-04 08:21] LABS: Glucose,Whole Blood 256 mg/dL (70-110)
[2024-01-04] MEDS: NON FORMULARY DRUG (Tirzepatide [Mounjaro] 5 MG/0.5 ML Pen.Injctr) SQ SCH (09:29)
[2024-01-04 09:31] VITALS: BP 98/67; PULSE 72; TEMP 98.1
[2024-01-04 10:26] LABS: HCT 39.8 % (37.2-46.3); MCH 24.2 pg (27.0-32.0); MCHC 30.2 g/dL (32.0-37.0); MCV 80.4 FL (80.0-97.0); Mean Platelet Volume 10.8 FL (9.5-12.2); NRBC Per 100 WBC 0 X 10*3/uL (0.00-0.01); Platelet Count 415 X 10*3/uL (140-440); RBC 4.95 X 10*6/uL (4.10-5.20); RDW 15.5 % (11.5-14.5); WBC 10.91 X 10*3/uL (4.50-10.00)
[2024-01-04 10:46] LABS: ALT 131 U/L (8-44); AST 125 U/L (13-35); Albumin 4.5 g/dL (3.8-4.9); Albumin/Globulin Ratio 1.55 Ratio (1.60-3.17); Alkaline Phosphatase 182 U/L (41-126); Blood Urea Nitrogen 13.1 mg/dL (9.0-27.0); Calcium 9.5 mg/dL (8.7-10.3); Carbon Dioxide 23.8 mmol/L (21.6-31.8); Chloride 100 mmol/L (96-109); Globulin 2.9 g/dL (1.6-3.3); Glucose 190 mg/dL (70-110); Potassium 4.6 mmol/L (3.5-5.5); Sodium 138 mmol/L (135-145); Total Bilirubin 0.4 mg/dL (0.3-1.2); Total Protein 7.4 g/dL (6.2-8.2)
[2024-01-04] MEDS: DIPHENOX-ATROP 2.5-0.025 MG 1 EACH TAB PO PRN (11:34)
[2024-01-04 11:45] LABS: Neutrophils # (M) 5.46 X 10*3/uL (1.80-7.70); Neutrophils % (M) 50 %
[2024-01-04 11:46] LABS: Basophils # (M) 0.22 X 10*3/uL (0.00-0.10); Eosinophils # (M) 0.76 X 10*3/uL (0.04-0.35); Lymphocytes # (M) 3.93 X 10*3/uL (0.90-5.00); Monocytes # (M) 0.55 X 10*3/uL (0.20-1.00); RBC Morphology Normal (Normal)
--- NOTE | 2024-01-04 11:51 | P.PN ---
Subjective Progress Note Date: 01/04/24 Principal diagnosis: Chronic diarrhea, abdominal pain This is a pleasant 53-year-old female who was recently hospitalized for ongoing diarrhea, nausea vomiting and lower abdominal pain ongoing for 2 to 3 months and discharged on 12/19/2023. After her most recent discharge she has followed with Simeon Grace nurse practitioner with gastroenterology she was taken off her Questran and put on Bentyl and Lomotil. Patient states that she seems to be doing better and then over the last couple days she was having increased abdominal pain. She continues to have multiple bowel movements a day. That are loose, non-bloody. Patient has had diarrhea ongoing since September however has progressively had gotten worse over the last 3-4 weeks duration. Patient was admitted to this hospital on 11/16/2023 and discharged on 12/05/2023. She had been complaining of diarrhea and abdominal cramping and discomfort. She had a CT of the abdomen pelvis with no significant interval change. No acute CT abnormality in the abdomen or pelvis. She reports that she was bitten by a dog on September 26, 2023. At that time she was started on clindamycin. Shortly after that she started having diarrhea. Diarrhea was getting worse they assumed patient had C. difficile and she was started on vancomycin Although C. difficile was negative. She states she continued to have diarrhea. When asked if she started any new medications only new medication was her Mounjaro which she states she started around middle to end of September. She reports having up to 18 bowel movements a day. Small to medium amount. Nonbloody. She had stool cultures which were negative, stool lactoferrin positive, stool cryptosporidium negative, stool Giardia antigen negative. Ova and parasites ordered however currently pending. During her last hospitalization she did undergo colonoscopy on 11/28/[address] Contreras with findings of grade 1 internal hemorrhoids. Multiple biopsies were taken. Biopsy results show no microscopic colitis. She also underwent upper endoscopy with Dr. 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 Stool cultures have been negative to date. As well as recent C. difficile. Stool lactoferrin during last hospitalization was positive. Stool pancreatic last days was slightly low at 196.0 mcg/G She currently states that she had about 5 bowel movements since early this morning, reports them as loose and sometimes watery. Some lower abdominal cramping, no nausea or vomiting. She has been afebrile. 01/03/2024 Patient seen and examined today as a follow-up. She states she is still having some abdominal cramping reports that is mostly in the pelvis. Appears that she is on ceftriaxone for possible urinary tract infection. Denies any nausea or vomiting. States has good appetite and eating well. Had 4-5 green small bowel movements throughout the night. LFTs continue to increase. Patient has a long history of elevated LFTs back as far as 2013 however they have been mild elevation. Ultrasound was ordered by primary care physician with no acute findings. Stool C. difficile was negative. Stool cultures pending. Patient denies any new medications. States she has been on her statin for many years. She is currently not taking Mounjaro and has not had it since September. Patient seen and examined today as a follow-up. States she is still having abdominal pain. Feeling gassy. No nausea or vomiting. Tolerating her diet. Stool cultures are negative. Diarrhea improving she states that she is only having very small amount of stool each time. Primary medical team discontinued IV antibiotics. LFTs improved slightly. Objective - Vital Signs Vital signs: Vital Signs Temp 98.4 F 01/04/24 02:00 Pulse 78 01/04/24 02:00 Resp 16 01/03/24 15:00 BP 90/56 01/04/24 02:00 Pulse Ox 97 01/04/24 02:00 FiO2 Intake & Output 01/03/24 01/03/24 01/04/24 06:59 18:59 06:59 Output Total 900 Balance -900 Output: Urine 900 Other: # Voids 4 2 # Bowel Movements 3 - Exam General appearance: The patient is alert, oriented, appears in no acute distress. HET: Head is normocephalic and atraumatic. Conjunctiva pink. Sclera anicteric. Neck: Supple without lymphadenopathy. Abdomen: Soft, no mid or upper abdominal tenderness, patient has tenderness in her pelvis, no abdominal distention. Extremities: Normal skin color and turgor. No pedal edema Skin: No rashes, no jaundice Neurological: No focal deficits. Alert and oriented. - Labs CBC & Chem 7: 01/04/24 06:05 01/04/24 06:05 Labs: Abnormal Lab Results - Last 24 Hours (Table) 01/03/24 01/03/24 01/03/24 Range/Units 08:09 08:12 11:39 MCH 24.4 L (25.0-35.0) pg MCHC 30.2 L (31.0-37.0) g/dL RDW 15.7 H (11.5-15.5) % Glucose 137 H (74-99) mg/dL POC Glucose (mg/dL) 202 H (70-110) mg/dL AST 220 H (14-36) U/L ALT 155 H (4-34) U/L Alkaline Phosphatase 159 H (38-126) U/L 01/03/24 01/03/24 01/04/24 Range/Units 17:27 21:10 06:19 MCH (25.0-35.0) pg MCHC (31.0-37.0) g/dL RDW (11.5-15.5) % Glucose (74-99) mg/dL POC Glucose (mg/dL) 188 H 212 H 174 H (70-110) mg/dL AST (14-36) U/L ALT (4-34) U/L Alkaline Phosphatase (38-126) U/L Assessment and Plan (1) Chronic diarrhea Narrative/Plan: 53-year-old female admitted for the third time regarding chronic diarrhe over the last 3 months duration. Patient has had multiple workup including upper and lower endoscopy, multiple stool samplesa all which have been negative. Unclear etiology. She is following with gastroenterology and was recently seen and changed to Lomotil 2 tablets 4 times daily as well as Bentyl 4 times daily with discontinuing Questran and Imodium. C. difficile will be repeated, stool culture was also ordered in the emergency room. Stool C. difficile I will negative, stool cultures pending. Likely this is secondary to irritable bowel syndrome. Patient has had multiple workup continue with Bentyl and Lomotil as ordered. Current Visit: Yes Status: Acute Code(s): K52.9 - NONINFECTIVE GASTROENTERITIS AND COLITIS, UNSPECIFIED SNOMED Code(s): 012099436 (2) Abdominal pain Current Visit: Yes Status: Acute Code(s): R10.9 - UNSPECIFIED ABDOMINAL PAIN SNOMED Code(s): 96698900 (3) Elevated LFTs Narrative/Plan: Elevated LFTs, unclear etiology. Patient has history of mildly elevated LFTs dating back to 2013, possibly secondary to fatty liver. Patient has been on her statin for many years. No increase in dosage. No other new medications other than patient was started on ceftriaxone this admission for suspected urinary tract infection per primary medical team. Liver ultrasound ordered with no acute findings. Recommend outpatient follow-up to trend LFTs and follow-up on diarrhea. Current Visit: Yes Status: Acute Code(s): R79.89 - OTHER SPECIFIED ABNORMAL FINDINGS OF BLOOD CHEMISTRY SNOMED Code(s): 451833548 Plan: 1. Continue symptomatic and supportive care 2. Consistent carbohydrate diet 3. Repeat stool C. difficile negative 4. Stool cultures negative 5. Continue Lomotil 2 tablets 4 times daily 6. Continue dicyclomine 20 mg p.o. 4 times daily 7. Discontinue Questran and Imodium 8. Avoid hepatotoxic medications 9. No plans on endoscopic evaluation 10. Patient is cleared for discharge from gastroenterology. Patient can follow-up with outpatient to repeat LFTs and follow-up for IBS. Thank you for this consultation, we will sign off at this time. Dr. Anupam Joseph I agree with the dictator's note, documented as a scribe by Karely Rodriguez.
[2024-01-04 12:03] LABS: Glucose,Whole Blood 126 mg/dL (70-110)
--- NOTE | 2024-01-04 13:49 | P.DS ---
Providers Date of admission: 01/01/24 12:34 Expected date of discharge: 01/04/24 Attending physician: Bushra Elliott Consults: 01/01/24 12:04 Consult Physician Stat Consulting Provider: Jaycee Joseph Consult Reason/Comments: abdominal pain Do you want consulting provider notified?: Already Contacted Primary care physician: Macy Knight [facility] Course: Diagnosis on discharge: recurrent episodes of abdominal pain Episodes of diarrhea Urinary tract infection Underlying history of diabetes mellitus 2 Underlying history of hypertension Underlying history of hyperlipidemia Underlying history of fibromyalgia Underlying history of anxiety disorder and depression Hospital course: This is a 53 year old female who presented to [facility] emergency room with a chief complaint of abdominal pain and diarrhea He was evaluated in the emergency room vital examination on presentation revealed a temperature of 98.2 pulse 97 respiration 18 and blood pressure 122/85 pulse ox 98% on room air Laboratory data reveals a white blood count of 9.7 hemoglobin 11.9 platelet count 352 sodium 139 potassium 4.4 chloride 107 CO2 23 BUN 9 creatinine 0.1 glucose 211 AST 65 ALT 44 urine analysis revealed large leukocyte esterase and 23 white blood cells in high power field Testing in the emergency room revealed no testing was done during emergency room visit, however computed tomography scan of the abdomen and pelvis was done on 12/19/2023 and revealed no suspicious abnormalities in the abdomen or pelvis Patient was admitted to medical floor for further evaluation and treatment gastroenterology consultation was requested On 01/02/2024 patient is alert and oriented 3. Patient still complaining of abdominal pain with diarrhea. Awaiting GI input. UA positive for urinary tract infection patient started on Rocephin urine culture ordered.Vital signs temp 98.2, heart rate 66, respiratory rate 16, blood pressure 100/70 with a pulse ox of 97% on room air.. on 01/03/2024 patient was seen and examined on the medical floor she is alert and oriented 3 in no apparent distress, she is still complaining of abdominal pain and diarrhea otherwise she denies any complaints, there is no fever or chills no headache or dizziness no chest pain no shortness of breath no cough no nausea or vomiting no blood in the stools no burning was urination no frequency or urgency and no hematuria, liver enzymes are elevated, will check liver ultrasound, discontinue IV Rocephin, check urine analysis again. on 01/03/2024 patient was seen and examined on the medical floor she is alert and oriented 3 in no apparent distress, she is still complaining of abdominal pain and diarrhea otherwise she denies any complaints, there is no fever or chills no headache or dizziness no chest pain no shortness of breath no cough no nausea or vomiting no blood in the stools no burning was urination no frequency or urgency and no hematuria, liver enzymes are elevated, will check liver ultrasound, repeat urine analysis was negative, liver ultrasound without any significant abnormality, liver enzymes are declining, patient was evaluated by gastroenterology and was cleared for discharge, patient will be discharged to home today, she will follow-up with Dr. Joseph as outpatient in 2-3 days for follow-up on elevated liver enzymes and for follow-up on irritable bowel syndrome, she will also follow-up with her primary care physician Dr. Knight Patient Condition at Discharge: Good Plan - Discharge Summary Discharge Rx Participant: No New Discharge Prescriptions: Continue Cetirizine HCl [Zyrtec] 10 mg PO DAILY Mirtazapine [Remeron] 15 mg PO HS Propranolol HCl [Inderal Xl] 80 mg PO HS LORazepam [Ativan] 0.5 mg PO Q6H PRN PRN Reason: Anxiety Rizatriptan Odt [Maxalt MARKETING COMMUNICATIONS LEADER] 10 mg PO TID PRN PRN Reason: Migraine Headache Furosemide [Lasix] 20 mg PO BID Ondansetron Odt [Zofran ODT] 8 mg PO Q8HR PRN PRN Reason: Nausea Insulin Glargine,Hum.rec.anlog [Lantus Solostar Pen] 30 units SQ DAILY Dicyclomine [Bentyl] 20 mg PO QID 30 Days #240 cap Famotidine [Pepcid] 20 mg PO BID Gabapentin 300 mg PO DAILY Escitalopram [Lexapro] 20 mg PO DAILY Tirzepatide [Mounjaro] 5 mg SQ FR Gabapentin 600 mg PO HS Diphenoxylate HCl/Atropine [Lomotil 2.5-0.025 mg Tablet] 2 tab PO QID PRN PRN Reason: Diarrhea Discontinued metFORMIN HCL ER [Glucophage XR] 2,000 mg PO DAILY Simvastatin [Zocor] 80 mg PO HS Loperamide [Imodium] 4 mg PO QID PRN PRN Reason: Diarrhea Discharge Medication List Cetirizine HCl [Zyrtec] 10 mg PO DAILY 06/13/18 [History] Mirtazapine [Remeron] 15 mg PO HS 10/08/18 [History] LORazepam [Ativan] 0.5 mg PO Q6H PRN 04/23/19 [History] Propranolol HCl [Inderal Xl] 80 mg PO HS 04/23/19 [History] Gabapentin 300 mg PO DAILY 02/28/22 [History] Rizatriptan Odt [Maxalt MARKETING COMMUNICATIONS LEADER] 10 mg PO TID PRN 02/28/22 [History] Furosemide [Lasix] 20 mg PO BID 02/16/23 [History] Escitalopram [Lexapro] 20 mg PO DAILY 03/21/23 [History] Gabapentin 600 mg PO HS 11/17/23 [History] Insulin Glargine,Hum.rec.anlog [Lantus Solostar Pen] 30 units SQ DAILY 11/17/23 [History] Ondansetron Odt [Zofran ODT] 8 mg PO Q8HR PRN 11/17/23 [History] Tirzepatide [Mounjaro] 5 mg SQ FR 11/17/23 [History] Dicyclomine [Bentyl] 20 mg PO QID 30 Days #240 cap 12/05/23 [Rx] Diphenoxylate HCl/Atropine [Lomotil 2.5-0.025 mg Tablet] 2 tab PO QID PRN [History] Famotidine [Pepcid] 20 mg PO BID 01/01/24 [History] Follow up Appointment(s)/Referral(s): Macy Knight MD [Primary Care Provider] - 1-2 days Lluvia Miller NPC [REFERRING] - 2 Weeks Patient Instructions/Handouts: Abdominal Pain (GEN)
== END 2024-01-04 14:33 | disposition home or self-care (01) ==
LOC: EC 10:05 → 6NMEDSUR 12:34 → 1SOBS 21:21 → 6NMEDSUR 01-03 17:56
PROVIDERS: ADMIT Internal Medicine; ATTEND Internal Medicine
DX: K52.9 Noninfective gastroenteritis and colitis, unspecified (principal); R79.89 Other specified abnormal findings of blood chemistry; J45.909 Unspecified asthma, uncomplicated; K21.9 Gastro-esophageal reflux disease without esophagitis; E11.40 Type 2 diabetes mellitus with diabetic neuropathy, unspecified; E78.5 Hyperlipidemia, unspecified; F32.A Depression, unspecified; F41.9 Anxiety disorder, unspecified; N39.0 Urinary tract infection, site not specified; I10 Essential (primary) hypertension; M79.7 Fibromyalgia; Z85.41 Personal history of malignant neoplasm of cervix uteri; Z86.16 Personal history of COVID-19; Z86.73 Personal history of transient ischemic attack (TIA), and cerebral infarction without residual deficits; Z90.49 Acquired absence of other specified parts of digestive tract; Z98.84 Bariatric surgery status; Z79.4 Long term (current) use of insulin; Z79.84 Long term (current) use of oral hypoglycemic drugs; Z79.85 Long-term (current) use of injectable non-insulin antidiabetic drugs; Z79.899 Other long term (current) drug therapy; Z88.1 Allergy status to other antibiotic agents; Z88.2 Allergy status to sulfonamides; Z88.5 Allergy status to narcotic agent
CPT/HCPCS: 96376 ×4; 96365; 96372 ×3; 96375 ×2; 99285; 36415; 80053 ×4; 82150; 83605; 83690; 83735; 84100; 85025 ×4; 81003; 81001; 87324; 87086; 87045; 83630; 87077; 87186; 87046; 83036; 76705; G0378 ×4; J2765; J2405 ×2; J1650 ×3; J0696; J1170 ×2

== ENCOUNTER 2024-01-15 12:16 | Emergency (ER) | payer OTHER ==
[2024-01-15 12:45] VITALS: RESP 18; TEMP 98.2
--- NOTE | 2024-01-15 12:47 | ED ---
Abdominal Pain HPI - General Chief Complaint: Abdominal Pain Stated Complaint: abd pain Time Seen by Provider: 01/15/24 12:28 Source: patient, RN notes reviewed, old records reviewed Mode of arrival: ambulatory Limitations: no limitations - History of Present Illness Initial Comments: 53-year-old female presented to the ER with a chief complaint of abdominal pain. Patient reports this been an ongoing issue for the past year and is following up with Dr. Joseph. She reports for the past 3 days she has been having an increase in pain and diarrhea. She states she has not had a formed bowel movement since September. She was seen by GI in office today and given Toradol for pain. She was instructed to come to the ER if symptoms persisted. Patient is endorsing lower abdominal pain with diarrhea and nausea. She denies any hematemesis, hematochezia or dark tarry stools. She does report her stools have been "all different colors". She states she has been tested for C. difficile and was negative. She has been taking Zofran for nausea relief. She admits to a decreased appetite. Denies any fevers, chills, chest pain, shortness of breath, urinary complaints or peripheral edema. - Related Data Home Medications Medication Instructions Recorded Confirmed Cetirizine HCl [Zyrtec] 10 mg PO DAILY 06/13/18 01/01/24 Mirtazapine [Remeron] 15 mg PO HS 10/08/18 01/01/24 LORazepam [Ativan] 0.5 mg PO Q6H PRN 04/23/19 01/01/24 Propranolol HCl [Inderal Xl] 80 mg PO HS 04/23/19 01/01/24 Gabapentin 300 mg PO DAILY 02/28/22 01/01/24 Rizatriptan Odt [Maxalt MANAGER CARD] 10 mg PO TID PRN 02/28/22 01/01/24 Furosemide [Lasix] 20 mg PO BID 02/16/23 01/01/24 Escitalopram [Lexapro] 20 mg PO DAILY 03/21/23 01/01/24 Gabapentin 600 mg PO HS 11/17/23 01/01/24 Insulin Glargine,Hum.rec.anlog 30 units SQ DAILY 11/17/23 01/01/24 [Lantus Solostar Pen] Ondansetron Odt [Zofran ODT] 8 mg PO Q8HR PRN 11/17/23 01/01/24 Tirzepatide [Mounjaro] 5 mg SQ FR 11/17/23 01/01/24 Diphenoxylate HCl/Atropine 2 tab PO QID PRN 01/01/24 01/01/24 [Lomotil 2.5-0.025 mg Tablet] Famotidine [Pepcid] 20 mg PO BID 01/01/24 01/01/24 Previous Rx's Medication Instructions Recorded Dicyclomine [Bentyl] 20 mg PO QID 30 Days #240 cap 12/05/23 Allergies Allergy/AdvReac Type Severity Reaction Status Date / Time oxycodone [From Percocet] Allergy Unknown Swelling; Verified 01/15/24 12:19 (WAS ABLE TO TAKE ALONG WITH BENADRYL) apricot Allergy Dyspnea Verified 01/15/24 12:19 barium sulfate Allergy Anaphylaxis Verified 01/15/24 12:19 [From Readi-Cat] codeine Allergy Anaphylaxis Verified 01/15/24 12:19 fentanyl Allergy Rash/Hives Verified 01/15/24 12:19 hydrocodone [From Lortab] Allergy Swelling Verified 01/15/24 12:19 Iodinated Contrast Media Allergy Anaphylaxis Verified 01/15/24 12:19 iodine Allergy Rash/Hives Verified 01/15/24 12:19 iron Allergy Swelling Verified 01/15/24 12:19 levofloxacin [From Levaquin] Allergy Swelling Verified 01/15/24 12:19 morphine Allergy Rash/Hives, Verified 01/15/24 12:19 Nausea/Vomiting peach Allergy Swelling Verified 01/15/24 12:19 peanut Allergy Swelling Verified 01/15/24 12:19 peanut oil Allergy Anaphylaxis Verified 01/15/24 12:19 shellfish derived [Shellfish] Allergy Anaphylaxis Verified 01/15/24 12:19 strawberry Allergy Anaphylaxis Verified 01/15/24 12:19 sucralfate [From Carafate] Allergy Swelling Verified 01/15/24 12:19 Sulfa (Sulfonamide Allergy Anaphylaxis Verified 01/15/24 12:19 Antibiotics) sulfamethoxazole Allergy Anaphylaxis Verified 01/15/24 12:19 [From Bactrim] tree nut [Nut] Allergy Swelling Verified 01/15/24 12:19 trimethoprim [From Bactrim] Allergy Anaphylaxis Verified 01/15/24 12:19 metronidazole [From Flagyl] AdvReac "made me Verified 01/15/24 12:19 hot" Review of Systems ROS Statement: Those systems with pertinent positive or pertinent negative responses have been documented in the HPI. ROS Other: All systems not noted in ROS Statement are negative. Past Medical History Past Medical History: Asthma, Cancer, CVA/TIA, Diabetes Mellitus, Fibromyalgia, GERD/Reflux, Hyperlipidemia, Osteoarthritis (OA), Pneumonia Additional Past Medical History / Comment(s): Had Iron infusions in Apr 2019. Hx TIA 2015. Diabetic neuropathy eli feet, migraines, cervical disc disease, DDD, eli tinnitis, arthiritis bilateral shoulders, IBS, HX R arm fx yrs ago, R ovarian cyst, hiatal hernia, UTIs, urinary calculus, pancreatitis x 2, stomach ulcer. Hx cervical cancer. COVID 08/2020 History of Any Multi-Drug Resistant Organisms: C-DIFF Date of last positivie culture/infection: 2015 MDRO Source:: None Past Surgical History: Appendectomy, Bariatric Surgery, Cholecystectomy, Hysterectomy, Tonsillectomy Additional Past Surgical History / Comment(s): 2011 felix-en-Y, fistula repair 2011, 2011 gastric bypass revision, bowel resection, lap gastrojejunostomy anastamosis revision, EGD and colonoscopy, cone bx-cervical cancer removed with cryo, L fallopian tube removed due to cyst, picc line in and out, CERVICAL FUSION 12/21/16. Past Anesthesia/Blood Transfusion Reactions: Family History of Problems w/ Anesthesia, Motion Sickness, Postoperative Nausea & Vomiting (PONV) Additional Past Anesthesia/Blood Transfusion Reaction / Comment(s): Pt states she has never recieved blood. FAMILY HX PONV. Past Psychological History: Anxiety, Depression Smoking Status: Never smoker Past Alcohol Use History: None Reported Past Drug Use History: None Reported - Past Family History Brother(s) History Unknown: Yes Family Medical History: Deep Vein Thrombosis (DVT) Father Family Medical History: Cancer, Deep Vein Thrombosis (DVT), Pulmonary Embolus Additional Family Medical History / Comment(s): Father had poss colon and lung cancer and at age 73yrs. Mother History Unknown: Yes Family Medical History: Coronary Artery Disease (CAD), Diabetes Mellitus, Deep Vein Thrombosis (DVT), Hypertension, Pulmonary Embolus Additional Family Medical History / Comment(s): Mother is alive and 73 yrs old. General Exam Limitations: no limitations General appearance: alert, in no apparent distress Respiratory exam: Present: normal lung sounds bilaterally. Absent: respiratory distress, wheezes, rales, rhonchi, stridor Cardiovascular Exam: Present: regular rate, normal rhythm, normal heart sounds. Absent: systolic murmur, diastolic murmur, rubs, gallop, clicks GI/Abdominal exam: Present: soft, tenderness (Lower abdomen), normal bowel sounds Neurological exam: Present: alert, oriented X3, CN II-XII intact Skin exam: Present: warm, dry, intact, normal color. Absent: rash Course Vital Signs 01/15/24 01/15/24 12:17 14:39 Temperature 98.2 F Pulse Rate 101 H 77 Respiratory 18 18 Rate Blood Pressure 106/65 99/63 O2 Sat by Pulse 98 97 Oximetry Medical Decision Making - Medical Decision Making Was pt. sent in by a medical professional or institution (, PA, HEATING PLANT SUPERINTENDENT, urgent care, hospital, or skilled nursing...) When possible be specific @ -No Did you speak to anyone other than the patient for history (EMS, parent, family, police, friend...)? What history was obtained from this source @ -No Did you review nursing and triage notes (agree or disagree)? Why? @ -I reviewed and agree with nursing and triage notes Were old charts reviewed (outside hosp., previous admission, EMS record, old EKG, old radiological studies, urgent care reports/EKG's, skilled nursing records)? Report findings @ -No old charts were reviewed Differential Diagnosis (chest pain, altered mental status, abdominal pain women, abdominal pain men, vaginal bleeding, weakness, fever, dyspnea, syncope, headache, dizziness, GI bleed, back pain, seizure, CVA, palpatations, mental health, musculoskeletal)? @ -Differential Abdominal Pain Women: Appendicitis, Cholecystitis, di verticulosis, ischemic bowel, pancreatitis, hepatitis, UTI, gastroenteritis, AAA, incarcerated hernia, bowel obstruction, constipation, inflammatory bowel, hepatitis, peptic ulcer disease, splenic infarction, perforated viscus, vulvitis, ovarian torsion, PID, kidney stone, placenta abruption, this is not meant to be an all-inclusive list EKG interpreted by me (3pts min.). @ -None X-rays interpreted by me (1pt min.). @ -None done CT interpreted by me (1pt min.). @ -None done U/S interpreted by me (1pt. min.). @ -None done What testing was considered but not performed or refused? (CT, X-rays, U/S, labs)? Why? @ -None What meds were considered but not given or refused? Why? @ -None Did you discuss the management of the patient with other professionals (professionals i.e. , PA, HEATING PLANT SUPERINTENDENT, lab, RT, psych nurse, social worker psychiatric, power superintendent, teacher, senior officer, window caser)? Give summary @ -No Was smoking cessation discussed for >3mins.? @ -No Was critical care preformed (if so, how long)? @ -No Were there social determinants of health that impacted care today? How? (Homelessness, low income, unemployed, alcoholism, drug addiction, transportation, low edu. Level, literacy, decrease access to med. care, detention, rehab)? @ -No Was there de-escalation of care discussed even if they declined (Discuss DNR or withdrawal of care, Hospice)? DNR status @ -No What co-morbidities impacted this encounter? (DM, HTN, Smoking, COPD, CAD, Cancer, CVA, ARF, Chemo, Hep., AIDS, mental health diagnosis, sleep apnea, morbid obesity)? @ -None Was patient admitted / discharged? Hospital course, mention meds given and route, prescriptions, significant lab abnormalities, [facility]. @ -Discharge. 53-year-old female presented to the ER with chief complaint of abdominal pain. She is currently following up with Dr. Joseph, GI. History and physical exam completed. Vitals stable. Patient no signs acute distress and nontoxic-appearing. Lower abdominal tenderness to palpation normal bowel sounds. Laboratory studies obtained nonspecific. Urine showing moderate blood with urine white blood cells. Urine sent for culture. Due to patient not currently having any urinary symptoms antibiotics will be held until culture is obtained. Patient received IV toradol, fluids and po tylenol for symptoms control in the ER, with improvement. With pain improvement and nonspecific laboratory studies I believe patient is stable for discharge for outpatient follow-up. Upon reevaluation, patient resting comfortably on stretcher in no signs of acute distress. Results discussed with patient, all questions answered. I advised close follow-up outpatient with Dr. Joseph and PCP. Return parameters discussed. Patient discharged in stable condition. Patient verbally expressed understanding and agreement with care plan. Case discussed with ED attending, Dr. Fuentes. Undiagnosed new problem with uncertain prognosis? @ -No Drug Therapy requiring intensive monitoring for toxicity (Heparin, Nitro, Insulin, Cardizem)? @ -No Were any procedures done? @ -No Diagnosis/symptom? @ -Abdominal pain Acute, or Chronic, or Acute on Chronic? @ -Chronic Uncomplicated (without systemic symptoms) or Complicated (systemic symptoms)? @ -Uncomplicated Side effects of treatment? @ -No Exacerbation, Progression, or Severe Exacerbation? @ -No Poses a threat to life or bodily function? How? (Chest pain, [place], [place], pneumonia, PE, COPD, DKA, ARF, appy, cholecystitis, CVA, Diverticulitis, Homicidal, Suicidal, threat to staff... and all critical care pts) @ -No - Lab Data Result diagrams: 01/15/24 13:00 01/15/24 13:00 Lab Results 01/15/24 01/15/24 01/15/24 Range/Units 13:00 13:00 13:00 WBC 9.3 (3.8-10.6) k/uL RBC 4.66 (3.80-5.40) m/uL Hgb 11.6 (11.4-16.0) gm/dL Hct 37.2 (34.0-46.0) % MCV 79.7 L (80.0-100.0) fL MCH 24.9 L (25.0-35.0) pg MCHC 31.2 (31.0-37.0) g/dL RDW 16.1 H (11.5-15.5) % Plt Count 392 (150-450) k/uL MPV 7.9 Neutrophils % 56 % Lymphocytes % 35 % Monocytes % 5 % Eosinophils % 2 % Basophils % 1 % Neutrophils # 5.2 (1.3-7.7) k/uL Lymphocytes # 3.2 (1.0-4.8) k/uL Monocytes # 0.4 (0-1.0) k/uL Eosinophils # 0.2 (0-0.7) k/uL Basophils # 0.1 (0-0.2) k/uL Hypochromasia Slight Anisocytosis Slight Microcytosis Slight Sodium 141 (137-145) mmol/L Potassium 4.2 (3.5-5.1) mmol/L Chloride 110 H (98-107) mmol/L Carbon Dioxide 23 (22-30) mmol/L Anion Gap 8 mmol/L BUN 11 (7-17) mg/dL Creatinine 0.48 L (0.52-1.04) mg/dL Est GFR (CKD-EPI)AfAm >90 (>60 ml/min/1.73 sqM) Est GFR (CKD-EPI)NonAf >90 (>60 ml/min/1.73 sqM) Glucose 157 H (74-99) mg/dL Plasma Lactic Acid Adam 1.4 (0.7-2.0) mmol/L Calcium 8.9 (8.4-10.2) mg/dL Total Bilirubin 0.9 (0.2-1.3) mg/dL AST 43 H (14-36) U/L ALT 28 (4-34) U/L Alkaline Phosphatase 105 (38-126) U/L Total Protein 7.8 (6.3-8.2) g/dL Albumin 4.6 (3.5-5.0) g/dL Amylase 45 (30-110) U/L Lipase 57 (23-300) U/L Urine Color Urine Appearance (Clear) Urine pH (5.0-8.0) Ur Specific [place] (1.001-1.035) Urine Protein (Negative) Urine Glucose (UA) (Negative) Urine Ketones (Negative) Urine Blood (Negative) Urine Nitrite (Negative) Urine Bilirubin (Negative) Urine Urobilinogen (<2.0) mg/dL Ur Leukocyte Esterase (Negative) Urine RBC (0-5) /hpf Urine WBC (0-5) /hpf Ur Squamous Epith Cells (0-4) /hpf Urine Bacteria (None) /hpf Hyaline Casts (0-2) /lpf Urine Mucus (None) /hpf 01/15/24 Range/Units 13:06 WBC (3.8-10.6) k/uL RBC (3.80-5.40) m/uL Hgb (11.4-16.0) gm/dL Hct (34.0-46.0) % MCV (80.0-100.0) fL MCH (25.0-35.0) pg MCHC (31.0-37.0) g/dL RDW (11.5-15.5) % Plt Count (150-450) k/uL MPV Neutrophils % % Lymphocytes % % Monocytes % % Eosinophils % % Basophils % % Neutrophils # (1.3-7.7) k/uL Lymphocytes # (1.0-4.8) k/uL Monocytes # (0-1.0) k/uL Eosinophils # (0-0.7) k/uL Basophils # (0-0.2) k/uL Hypochromasia Anisocytosis Microcytosis Sodium (137-145) mmol/L Potassium (3.5-5.1) mmol/L Chloride (98-107) mmol/L Carbon Dioxide (22-30) mmol/L Anion Gap mmol/L BUN (7-17) mg/dL Creatinine (0.52-1.04) mg/dL Est GFR (CKD-EPI)AfAm (>60 ml/min/1.73 sqM) Est GFR (CKD-EPI)NonAf (>60 ml/min/1.73 sqM) Glucose (74-99) mg/dL Plasma Lactic Acid Adam (0.7-2.0) mmol/L Calcium (8.4-10.2) mg/dL Total Bilirubin (0.2-1.3) mg/dL AST (14-36) U/L ALT (4-34) U/L Alkaline Phosphatase (38-126) U/L Total Protein (6.3-8.2) g/dL Albumin (3.5-5.0) g/dL Amylase (30-110) U/L Lipase (23-300) U/L Urine Color Yellow Urine Appearance Clear (Clear) Urine pH 6.0 (5.0-8.0) Ur Specific [place] 1.022 (1.001-1.035) Urine Protein Trace H (Negative) Urine Glucose (UA) Negative (Negative) Urine Ketones Negative (Negative) Urine Blood Moderate H (Negative) Urine Nitrite Negative (Negative) Urine Bilirubin Negative (Negative) Urine Urobilinogen <2.0 (<2.0) mg/dL Ur Leukocyte Esterase Large H (Negative) Urine RBC 37 H (0-5) /hpf Urine WBC 35 H (0-5) /hpf Ur Squamous Epith Cells 2 (0-4) /hpf Urine Bacteria Rare H (None) /hpf Hyaline Casts 3 H (0-2) /lpf Urine Mucus Occasional H (None) /hpf Disposition Clinical Impression: Abdominal pain Disposition: HOME SELF-CARE Condition: Stable Instructions (If sedation given, give patient instructions): Abdominal Pain (ED) Additional Instructions: Please follow-up with Dr. Joseph. Return to the ER for any new or worsening concerns. Is patient prescribed a controlled substance at d/c from ED?: No Referrals: Macy Knight MD [Primary Care Provider] - 1-2 days Jaycee Joseph MD [STAFF PHYSICIAN] - 1-2 days Time of Disposition: 14:26
[2024-01-15] MEDS: SODIUM CHLORIDE 0.9% 1,000 ML IV STA (13:02)
[2024-01-15] MEDS: ACETAMINOPHEN TAB 325 MG TAB PO STA (13:02)
[2024-01-15 13:17] LABS: Anisocytosis Slight; Basophils # (A) 0.1 k/uL (0-0.2); Basophils % (A) 1 %; Eosinophils # (A) 0.2 k/uL (0-0.7); Eosinophils % (A) 2 %; HCT 37.2 % (34.0-46.0); HGB 11.6 gm/dL (11.4-16.0); Hypochromasia Slight; Lymphocytes # (A) 3.2 k/uL (1.0-4.8); Lymphocytes % (A) 35 %; MCH 24.9 pg (25.0-35.0); MCHC 31.2 g/dL (31.0-37.0); MCV 79.7 fL (80.0-100.0); Mean Platelet Volume 7.9; Microcytosis Slight; Monocytes # (A) 0.4 k/uL (0-1.0); Monocytes % (A) 5 %; Neutrophils # (A) 5.2 k/uL (1.3-7.7); Neutrophils % (A) 56 %; Platelet Count 392 k/uL (150-450); RBC 4.66 m/uL (3.80-5.40); RDW 16.1 % (11.5-15.5); WBC 9.3 k/uL (3.8-10.6)
[2024-01-15 13:30] LABS: Appearance,Urine Clear (Clear); Bacteria,Urine Rare /hpf; Bilirubin,Urine Negative (Negative); Blood,Urine Moderate (Negative); Color,Urine Yellow; Glucose,Urine (UA) Negative (Negative); Hyaline Casts,Urine 3 /lpf (0-2); Ketones,Urine Negative (Negative); Leukocyte Esterase,Urine Large (Negative); Mucus,Urine Occasional /hpf; Nitrite,Urine Negative (Negative); Protein,Urine Trace (Negative); RBC,Urine 37 /hpf (0-5); Specific Gravity,Urine 1.022 (1.001-1.035); Squamous Epithelial Cell,Urine 2 /hpf (0-4); Urobilinogen,Urine <2.0 mg/dL (<2.0); WBC,Urine 35 /hpf (0-5)
[2024-01-15 13:43] LABS: ALT 28 U/L (4-34); AST 43 U/L (14-36); African American GFR (CKD) >90 (>60 ml/min/1.73 sqM); Albumin 4.6 g/dL (3.5-5.0); Alkaline Phosphatase 105 U/L (38-126); Amylase 45 U/L (30-110); Anion Gap 8 mmol/L; Blood Urea Nitrogen 11 mg/dL (7-17); Calcium 8.9 mg/dL (8.4-10.2); Carbon Dioxide 23 mmol/L (22-30); Chloride 110 mmol/L (98-107); Glucose 157 mg/dL (74-99); Lipase 57 U/L (23-300); Non-African American GFR(CKD) >90 (>60 ml/min/1.73 sqM); Sodium 141 mmol/L (137-145); Total Bilirubin 0.9 mg/dL (0.2-1.3); Total Protein 7.8 g/dL (6.3-8.2)
[2024-01-15 14:01] LABS: Potassium 4.2 mmol/L (3.5-5.1)
[2024-01-15] MEDS: KETOROLAC 15 MG/ML 1 ML VIAL IVP STA (14:10)
[2024-01-15 14:43] VITALS: BP 99/63; PULSE 77
== END 2024-01-15 14:40 | disposition home or self-care (01) ==
LOC: EC 12:16
DX: R10.30 Lower abdominal pain, unspecified (principal); Z88.5 Allergy status to narcotic agent; Z88.8 Allergy status to other drugs, medicaments and biological substances; Z91.041 Radiographic dye allergy status; Z91.010 Allergy to peanuts; Z91.013 Allergy to seafood; Z91.018 Allergy to other foods; Z88.2 Allergy status to sulfonamides; Z88.1 Allergy status to other antibiotic agents; Z86.73 Personal history of transient ischemic attack (TIA), and cerebral infarction without residual deficits; Z86.16 Personal history of COVID-19
CPT/HCPCS: 36415; 80053; 82150; 83605; 83690; 85025; 81001; 87086; 99284; 96374; 96361; J1885

== ENCOUNTER 2024-02-05 15:22 | Emergency (ER) | payer OTHER ==
[2024-02-05 15:32] VITALS: RESP 16
--- NOTE | 2024-02-05 16:09 | ED ---
Abdominal Pain HPI - General Source: patient, RN notes reviewed Mode of arrival: ambulatory Limitations: no limitations <Jessica Schulz - Last Filed: 02/05/24 16:04> <Jazmin Amaral - Last Filed: 02/05/24 23:02> - General Chief Complaint: Abdominal Pain Stated Complaint: abd pain Time Seen by Provider: 02/05/24 15:38 - History of Present Illness Initial Comments: Quick note- This is a 53-year-old female with a past medical history of Felix-en-Y procedure to the emergency department chief complaint of lower abdomin al pain that has been worsening over the past 4 days. She states that she also been having watery diarrhea. Patient follows with Dr. Knight and Dr. Contreras, instructed yesterday by Dr. Rivero and reports emergency department if her symptoms have not improved with 600 mg ibuprofen. She denies fevers, vomiting, endorses nausea. (Jessica Schulz) 53-year-old female presents to the emergency department for evaluation of lower abdominal pain. She states that this has been on and off for multiple months. She notes that this time around has been going on for 4 days. She notes that she has had diarrhea for the past 4 days. Reports that she has been taking Bentyl and Lomotil and has had improvement in the diarrhea. She does follow with Dr. Joseph and Dr. Contreras. Patient reports that she had an EGD and colonoscopy done in November with no significant findings. Last CT scan was December 18. She does admit to nausea without vomiting. Denies fever, admits to chills. (Jazmin Amaral) - Related Data Home Medications Medication Instructions Recorded Confirmed Cetirizine HCl [Zyrtec] 10 mg PO DAILY 06/13/18 01/01/24 Mirtazapine [Remeron] 15 mg PO HS 10/08/18 01/01/24 LORazepam [Ativan] 0.5 mg PO Q6H PRN 04/23/19 01/01/24 Propranolol HCl [Inderal Xl] 80 mg PO HS 04/23/19 01/01/24 Gabapentin 300 mg PO DAILY 02/28/22 01/01/24 Rizatriptan Odt [Maxalt CLEAN UP SUPERVISOR] 10 mg PO TID PRN 02/28/22 01/01/24 Furosemide [Lasix] 20 mg PO BID 02/16/23 01/01/24 Escitalopram [Lexapro] 20 mg PO DAILY 03/21/23 01/01/24 Gabapentin 600 mg PO HS 11/17/23 01/01/24 Insulin Glargine,Hum.rec.anlog 30 units SQ DAILY 11/17/23 01/01/24 [Lantus Solostar Pen] Ondansetron Odt [Zofran ODT] 8 mg PO Q8HR PRN 11/17/23 01/01/24 Tirzepatide [Mounjaro] 5 mg SQ FR 11/17/23 01/01/24 Diphenoxylate HCl/Atropine 2 tab PO QID PRN 01/01/24 01/01/24 [Lomotil 2.5-0.025 mg Tablet] Famotidine [Pepcid] 20 mg PO BID 01/01/24 01/01/24 Previous Rx's Medication Instructions Recorded Dicyclomine [Bentyl] 20 mg PO QID 30 Days #240 cap 12/05/23 Allergies Allergy/AdvReac Type Severity Reaction Status Date / Time oxycodone [From Percocet] Allergy Unknown Swelling; Verified 02/05/24 15:32 (WAS ABLE TO TAKE ALONG WITH BENADRYL) apricot Allergy Dyspnea Verified 02/05/24 15:32 barium sulfate Allergy Anaphylaxis Verified 02/05/24 15:32 [From Readi-Cat] codeine Allergy Anaphylaxis Verified 02/05/24 15:32 fentanyl Allergy Rash/Hives Verified 02/05/24 15:32 hydrocodone [From Lortab] Allergy Swelling Verified 02/05/24 15:32 Iodinated Contrast Media Allergy Anaphylaxis Verified 02/05/24 15:32 iodine Allergy Rash/Hives Verified 02/05/24 15:32 iron Allergy Swelling Verified 02/05/24 15:32 levofloxacin [From Levaquin] Allergy Swelling Verified 02/05/24 15:32 morphine Allergy Rash/Hives, Verified 02/05/24 15:32 Nausea/Vomiting peach Allergy Swelling Verified 02/05/24 15:32 peanut Allergy Swelling Verified 02/05/24 15:32 peanut oil Allergy Anaphylaxis Verified 02/05/24 15:32 shellfish derived [Shellfish] Allergy Anaphylaxis Verified 02/05/24 15:32 strawberry Allergy Anaphylaxis Verified 02/05/24 15:32 sucralfate [From Carafate] Allergy Swelling Verified 02/05/24 15:32 Sulfa (Sulfonamide Allergy Anaphylaxis Verified 02/05/24 15:32 Antibiotics) sulfamethoxazole Allergy Anaphylaxis Verified 02/05/24 15:32 [From Bactrim] tree nut [Nut] Allergy Swelling Verified 02/05/24 15:32 trimethoprim [From Bactrim] Allergy Anaphylaxis Verified 02/05/24 15:32 metronidazole [From Flagyl] AdvReac "made me Verified 02/05/24 15:32 hot" Review of Systems ROS Other: All systems not noted in ROS Statement are negative. <Jessica Schulz - Last Filed: 02/05/24 16:04> ROS Other: All systems not noted in ROS Statement are negative. <Jazmin Amaral - Last Filed: 02/05/24 23:02> ROS Statement: Those systems with pertinent positive or pertinent negative responses have been documented in the HPI. Past Medical History Past Medical History: Asthma, Cancer, CVA/TIA, Diabetes Mellitus, Fibromyalgia, GERD/Reflux, Hyperlipidemia, Osteoarthritis (OA), Pneumonia Additional Past Medical History / Comment(s): Had Iron infusions in Apr 2019. Hx TIA 2015. Diabetic neuropathy eli feet, migraines, cervical disc disease, DDD, eli tinnitis, arthiritis bilateral shoulders, IBS, HX R arm fx yrs ago, R ovarian cyst, hiatal hernia, UTIs, urinary calculus, pancreatitis x 2, stomach ulcer. Hx cervical cancer. COVID 08/2020 History of Any Multi-Drug Resistant Organisms: C-DIFF Date of last positivie culture/infection: 2015 MDRO Source:: None Past Surgical History: Appendectomy, Bariatric Surgery, Cholecystectomy, Hysterectomy, Tonsillectomy Additional Past Surgical History / Comment(s): 2010 felix-en-Y, fistula repair 2011, 2011 gastric bypass revision, bowel resection, lap gastrojejunostomy anastamosis revision, EGD and colonoscopy, cone bx-cervical cancer removed with cryo, L fallopian tube removed due to cyst, picc line in and out, CERVICAL FUSIO N 12/21/16. Past Anesthesia/Blood Transfusion Reactions: Family History of Problems w/ Anesthesia, Motion Sickness, Postoperative Nausea & Vomiting (PONV) Additional Past Anesthesia/Blood Transfusion Reaction / Comment(s): Pt states she has never recieved blood. FAMILY HX PONV. Past Psychological History: Anxiety, Depression Smoking Status: Never smoker Past Alcohol Use History: None Reported Past Drug Use History: None Reported - Past Family History Brother(s) History Unknown: Yes Family Medical History: Deep Vein Thrombosis (DVT) Father Family Medical History: Cancer, Deep Vein Thrombosis (DVT), Pulmonary Embolus Additional Family Medical History / Comment(s): Father had poss colon and lung cancer and at age 73yrs. Mother History Unknown: Yes Family Medical History: Coronary Artery Disease (CAD), Diabetes Mellitus, Deep Vein Thrombosis (DVT), Hypertension, Pulmonary Embolus Additional Family Medical History / Comment(s): Mother is alive and 73 yrs old. <Jessica Schulz - Last Filed: 02/05/24 16:04> General Exam Limitations: no limitations <Jessica Schulz - Last Filed: 02/05/24 16:04> Limitations: no limitations General appearance: alert, in no apparent distress Head exam: Present: atraumatic, normocephalic, normal inspection Eye exam: Present: normal appearance, PERRL, EOMI. Absent: scleral icterus, conjunctival injection, periorbital swelling ENT exam: Present: normal exam, mucous membranes moist Respiratory exam: Present: normal lung sounds bilaterally. Absent: respiratory distress, wheezes, rales, rhonchi, stridor Cardiovascular Exam: Present: regular rate, normal rhythm, normal heart sounds. Absent: systolic murmur, diastolic murmur, rubs, gallop, clicks GI/Abdominal exam: Present: soft, tenderness (Bilateral lower abdominal), normal bowel sounds. Absent: distended, guarding, rebound, rigid Extremities exam: Present: normal inspection, full ROM, normal capillary refill. Absent: tenderness, pedal edema, joint swelling, calf tenderness Back exam: Present: normal inspection Neurological exam: Present: alert, oriented X3 Psychiatric exam: Present: normal affect, normal mood Skin exam: Present: warm, dry, intact, normal color. Absent: rash <Jazmin Amaral - Last Filed: 02/05/24 23:02> - General Exam Comments Initial Comments: visual Physical Exam Vital signs reviewed General: Well-appearing, nontoxic, no acute distress. Head: Normocephalic, atraumatic Eyes: PERRLA, EOMI ENT: Airway patent Chest: Nonlabored breathing Skin: No visual rash, normal skin tone Neuro: Alert and oriented 3 Musculoskeletal: No gross abnormalities (Jessica Schulz) Course Vital Signs 02/05/24 02/05/24 02/05/24 15:30 18:39 19:10 Temperature 98.0 F 98.3 F Pulse Rate 95 79 79 Respiratory 16 16 16 Rate Blood Pressure 107/73 91/60 97/63 O2 Sat by Pulse 98 99 100 Oximetry 02/05/24 20:27 Temperature 98.7 F Pulse Rate 80 Respiratory 16 Rate Blood Pressure 111/79 O2 Sat by Pulse 99 Oximetry Medical Decision Making <Jessica Schulz - Last Filed: 02/05/24 16:04> - Lab Data Result diagrams: 02/05/24 17:14 02/05/24 18:59 <Jazmin Amaral - Last Filed: 02/05/24 23:02> - Medical Decision Making I completed the quick note portion of this chart signed Jessica Schulz PA-C (Jessica Schulz) Was pt. sent in by a medical professional or institution ([facility], ONLINE MARKETER, urgent care, hospital, or halfway...) When possible be specific @ -No Did you speak to anyone other than the patient for history (EMS, parent, family, police, friend...)? What history was obtained from this source @ -No Did you review nursing and triage notes (agree or disagree)? Why? @ -I reviewed and agree with nursing and triage notes Were old charts reviewed (outside hosp., previous admission, EMS record, old EKG, old radiological studies, urgent care reports/EKG's, halfway records)? Report findings @ -No old charts were reviewed Differential Diagnosis (chest pain, altered mental status, abdominal pain women, abdominal pain men, vaginal bleeding, weakness, fever, dyspnea, syncope, headache, dizziness, GI bleed, back pain, seizure, CVA, palpatations, mental health, musculoskeletal)? @ -Differential Abdominal Pain Women: Appendicitis, Cholecystitis, diverticulosis, ischemic bowel, pancreatitis, hepatitis, UTI, gastroenteritis, AAA, incarcerated hernia, bowel obstruction, constipation, inflammatory bowel, hepatitis, peptic ulcer disease, splenic infarction, perforated viscus, vulvitis, ovarian torsion, PID, kidney stone, placenta abruption, this is not meant to be an all-inclusive list EKG interpreted by me (3pts min.). @ -None X-rays interpreted by me (1pt min.). @ -None done CT interpreted by me (1pt min.). @ -None done U/S interpreted by me (1pt. min.). @ -None done What testing was considered but not performed or refused? (CT, X-rays, U/S, labs)? Why? @ -None What meds were considered but not given or refused? Why? @ -None Did you discuss the management of the patient with other professionals (professionals i.e. , PA, ONLINE MARKETER, lab, RT, psych nurse, social service assistant, ornamental metal worker apprentice, teacher, business practices officer, rehabilitation case coordinator)? Give summary @ -No Was smoking cessation discussed for >3mins.? @ -No Was critical care preformed (if so, how long)? @ -No Were there social determinants of health that impacted care today? How? (Homelessness, low income, unemployed, alcoholism, drug addiction, transportation, low edu. Level, literacy, decrease access to med. care, care home, rehab)? @ -No Was there de-escalation of care discussed even if they declined (Discuss DNR or withdrawal of care, Hospice)? DNR status @ -No What co-morbidities impacted this encounter? (DM, HTN, Smoking, COPD, CAD, Cancer, CVA, ARF, Chemo, Hep., AIDS, mental health diagnosis, sleep apnea, morbid obesity)? @ -None Was patient admitted / discharged? Hospital course, mention meds given and route, prescriptions, significant lab abnormalities, going to OR and other pertinent info. @ -Discharged. Patient presented to the emergency department for evaluation of lower abdominal pain and diarrhea. She has been seen multiple times for this same issue. She denies any changes in her symptoms. She states that this episode has been going on for 4 days. CBC shows WBC of 10.0, hemoglobin 12.6; initial CMP showed a hemolyzed potassium redraws 4.5; UA shows no evidence of infectious process. Patient provided fluids and pain medication while in the emergency department. Patient will be discharged home with follow-up to her surgeon and GI specialist. She is understanding agreeable with this plan. Patient stable at time of discharge. Case discussed with Dr. De La Cruz Undiagnosed new problem with uncertain prognosis? @ -No Drug Therapy requiring intensive monitoring for toxicity (Heparin, Nitro, Insulin, Cardizem)? @ -No Were any procedures done? @ -No Diagnosis/symptom? @ -Abdominal pain Acute, or Chronic, or Acute on Chronic? @ -Acute on chronic Uncomplicated (without systemic symptoms) or Complicated (systemic symptoms)? @ -Uncomplicated Side effects of treatment? @ -No Exacerbation, Progression, or Severe Exacerbation? @ -No Poses a threat to life or bodily function? How? (Chest pain, [place], [place], pneumonia, PE, COPD, DKA, ARF, appy, cholecystitis, CVA, Diverticulitis, Homicidal, Suicidal, threat to staff... and all critical care pts) @ -No (Jazmin Amaral) - Lab Data Lab Results 02/05/24 02/05/24 02/05/24 Range/Units 15:32 17:14 17:14 WBC 10.0 (3.8-10.6) k/uL RBC 5.13 (3.80-5.40) m/uL Hgb 12.6 (11.4-16.0) gm/dL Hct 40.8 (34.0-46.0) % MCV 79.5 L (80.0-100.0) fL MCH 24.5 L (25.0-35.0) pg MCHC 30.8 L (31.0-37.0) g/dL RDW 15.3 (11.5-15.5) % Plt Count 337 (150-450) k/uL MPV 8.0 Neutrophils % 50 % Lymphocytes % 41 % Monocytes % 5 % Eosinophils % 1 % Basophils % 1 % Neutrophils # 4.9 (1.3-7.7) k/uL Lymphocytes # 4.1 (1.0-4.8) k/uL Monocytes # 0.5 (0-1.0) k/uL Eosinophils # 0.1 (0-0.7) k/uL Basophils # 0.1 (0-0.2) k/uL Hypochromasia Moderate Sodium 137 (137-145) mmol/L Potassium 5.8 H (3.5-5.1) mmol/L Chloride 106 (98-107) mmol/L Carbon Dioxide 21 L (22-30) mmol/L Anion Gap 10 mmol/L BUN 9 (7-17) mg/dL Creatinine 0.52 (0.52-1.04) mg/dL Est GFR (CKD-EPI)AfAm >90 (>60 ml/min/1.73 sqM) Est GFR (CKD-EPI)NonAf >90 (>60 ml/min/1.73 sqM) Glucose 100 H (74-99) mg/dL Calcium 9.5 (8.4-10.2) mg/dL Total Bilirubin 1.1 (0.2-1.3) mg/dL AST 61 H (14-36) U/L ALT 26 (4-34) U/L Alkaline Phosphatase 125 (38-126) U/L Total Protein 8.5 H (6.3-8.2) g/dL Albumin 5.0 (3.5-5.0) g/dL Amylase 52 (30-110) U/L Lipase 92 (23-300) U/L Urine Color Yellow Urine Appearance Clear (Clear) Urine pH 5.0 (5.0-8.0) Ur Specific Te[place] 1.020 (1.001-1.035) Urine Protein Negative (Negative) Urine Glucose (UA) Negative (Negative) Urine Ketones Negative (Negative) Urine Blood Negative (Negative) Urine Nitrite Negative (Negative) Urine Bilirubin Negative (Negative) Urine Urobilinogen <2.0 (<2.0) mg/dL Ur Leukocyte Esterase Moderate H (Negative) Urine RBC 1 (0-5) /hpf Urine WBC 7 H (0-5) /hpf Ur Squamous Epith Cells 1 (0-4) /hpf Urine Mucus Few H (None) /hpf 02/05/24 Range/Units 18:59 WBC (3.8-10.6) k/uL RBC (3.80-5.40) m/uL Hgb (11.4-16.0) gm/dL Hct (34.0-46.0) % MCV (80.0-100.0) fL MCH (25.0-35.0) pg MCHC (31.0-37.0) g/dL RDW (11.5-15.5) % Plt Count (150-450) k/uL MPV Neutrophils % % Lymphocytes % % Monocytes % % Eosinophils % % Basophils % % Neutrophils # (1.3-7.7) k/uL Lymphocytes # (1.0-4.8) k/uL Monocytes # (0-1.0) k/uL Eosinophils # (0-0.7) k/uL Basophils # (0-0.2) k/uL Hypochromasia Sodium (137-145) mmol/L Potassium 4.5 (3.5-5.1) mmol/L Chloride (98-107) mmol/L Carbon Dioxide (22-30) mmol/L Anion Gap mmol/L BUN (7-17) mg/dL Creatinine (0.52-1.04) mg/dL Est GFR (CKD-EPI)AfAm (>60 ml/min/1.73 sqM) Est GFR (CKD-EPI)NonAf (>60 ml/min/1.73 sqM) Glucose (74-99) mg/dL Calcium (8.4-10.2) mg/dL Total Bilirubin (0.2-1.3) mg/dL AST (14-36) U/L ALT (4-34) U/L Alkaline Phosphatase (38-126) U/L Total Protein (6.3-8.2) g/dL Albumin (3.5-5.0) g/dL Amylase (30-110) U/L Lipase (23-300) U/L Urine Color Urine Appearance (Clear) Urine pH (5.0-8.0) Ur Specific [place] (1.001-1.035) Urine Protein (Negative) Urine Glucose (UA) (Negative) Urine Ketones (Negative) Urine Blood (Negative) Urine Nitrite (Negative) Urine Bilirubin (Negative) Urine Urobilinogen (<2.0) mg/dL Ur Leukocyte Esterase (Negative) Urine RBC (0-5) /hpf Urine WBC (0-5) /hpf Ur Squamous Epith Cells (0-4) /hpf Urine Mucus (None) /hpf Disposition <Jessica Schulz - Last Filed: 02/05/24 16:04> Is patient prescribed a controlled substance at d/c from ED?: No <Jazmin Amaral - Last Filed: 02/05/24 23:02> Clinical Impression: Abdominal pain Disposition: HOME SELF-CARE Condition: Stable Instructions (If sedation given, give patient instructions): Abdominal Pain (ED) Additional Instructions: Please follow up with your GI and surgeon. Return to the emergency department for new or worsening symptoms. Referrals: Macy Knight MD [Primary Care Provider] - 1-2 days
[2024-02-05 16:35] LABS: Appearance,Urine Clear (Clear); Bilirubin,Urine Negative (Negative); Blood,Urine Negative (Negative); Color,Urine Yellow; Glucose,Urine (UA) Negative (Negative); Ketones,Urine Negative (Negative); Leukocyte Esterase,Urine Moderate (Negative); Mucus,Urine Few /hpf; Nitrite,Urine Negative (Negative); Protein,Urine Negative (Negative); RBC,Urine 1 /hpf (0-5); Squamous Epithelial Cell,Urine 1 /hpf (0-4); Urobilinogen,Urine <2.0 mg/dL (<2.0); WBC,Urine 7 /hpf (0-5)
[2024-02-05 17:45] LABS: Basophils # (A) 0.1 k/uL (0-0.2); Basophils % (A) 1 %; Eosinophils # (A) 0.1 k/uL (0-0.7); Eosinophils % (A) 1 %; HCT 40.8 % (34.0-46.0); HGB 12.6 gm/dL (11.4-16.0); Hypochromasia Moderate; Lymphocytes # (A) 4.1 k/uL (1.0-4.8); Lymphocytes % (A) 41 %; MCH 24.5 pg (25.0-35.0); MCHC 30.8 g/dL (31.0-37.0); MCV 79.5 fL (80.0-100.0); Monocytes # (A) 0.5 k/uL (0-1.0); Monocytes % (A) 5 %; Neutrophils # (A) 4.9 k/uL (1.3-7.7); Neutrophils % (A) 50 %; Platelet Count 337 k/uL (150-450); RBC 5.13 m/uL (3.80-5.40); RDW 15.3 % (11.5-15.5)
[2024-02-05 17:59] LABS: ALT 26 U/L (4-34); African American GFR (CKD) >90 (>60 ml/min/1.73 sqM); Alkaline Phosphatase 125 U/L (38-126); Amylase 52 U/L (30-110); Anion Gap 10 mmol/L; Blood Urea Nitrogen 9 mg/dL (7-17); Calcium 9.5 mg/dL (8.4-10.2); Carbon Dioxide 21 mmol/L (22-30); Chloride 106 mmol/L (98-107); Lipase 92 U/L (23-300); Non-African American GFR(CKD) >90 (>60 ml/min/1.73 sqM); Sodium 137 mmol/L (137-145); Total Bilirubin 1.1 mg/dL (0.2-1.3)
[2024-02-05 18:20] LABS: Glucose 100 mg/dL (74-99); Potassium 5.8 mmol/L (3.5-5.1)
[2024-02-05 18:21] LABS: AST 61 U/L (14-36); Total Protein 8.5 g/dL (6.3-8.2)
[2024-02-05] MEDS: SODIUM CHLORIDE 0.9% 2,000 ML IV ONE (19:15)
[2024-02-05] MEDS: ONDANSETRON 4 MG/2 ML VIAL IVP STA (19:18)
[2024-02-05] MEDS: HYDROmorphone 1 MG/ML 1 ML SYRINGE IVP STA (19:18)
[2024-02-05 20:28] VITALS: BP 111/79; PULSE 80; TEMP 98.7
== END 2024-02-05 20:27 | disposition home or self-care (01) ==
LOC: EC 15:22
DX: R10.30 Lower abdominal pain, unspecified (principal); Z91.010 Allergy to peanuts; Z91.018 Allergy to other foods; Z91.013 Allergy to seafood; Z88.1 Allergy status to other antibiotic agents; Z88.2 Allergy status to sulfonamides; Z88.5 Allergy status to narcotic agent; Z91.041 Radiographic dye allergy status; Z91.048 Other nonmedicinal substance allergy status; Z88.8 Allergy status to other drugs, medicaments and biological substances; Z90.49 Acquired absence of other specified parts of digestive tract
CPT/HCPCS: 36415; 80053; 82150; 83690; 84132; 85025; 81001; 99284; 96374; 96375; 96361; J2405; J1170

== ENCOUNTER → 2024-05-12 | Outpatient (CLI) | payer OTHER ==
--- NOTE | 2024-05-18 11:32 | MM ---
Reason for Exam: Screening (asymptomatic). Last mammogram was performed 1 year(s) and 3 month(s) ago. Patient History: Menarche at age 12. Patient has no children. Left ovary removed at age 50. Right ovary removed at age 50. Hysterectomy at age 50. Postmenopausal. Currently using Unspecified Hormone, starting at age 40. Maternal grandmother had breast cancer. Maternal aunt had breast cancer, age 45. Maternal aunt had breast cancer, age 50. Maternal aunt had breast cancer, age 51. Cousin (Karen) had breast cancer, age 55. Risk Values: Shala 5 year model risk: 1.2%. NCI Lifetime model risk: 9.4%. Prior Study Comparison: 01/10/2019 Bilateral Screening Mammogram, [facility]. 01/21/2021 Bilateral Screening Mammogram, [facility]. 01/18/2023 Bilateral MG 3D screening mammo w/cad, [facility]. Tissue Density: There are scattered areas of fibroglandular density. Findings: Analyzed By CAD. The pattern is symmetrical. No significant interval change is evident. Benign-appearing round calcifications are present bilaterally. Benign vascular calcifications present. No suspicious groups of microcalcifications, spiculated or lobular masses, architectural distortion or other secondary signs of malignancy are mammographically apparent. Overall Assessment: Benign, BI-RAD 2 Management: Screening Mammogram of both breasts in 1 year. A negative mammogram report should not preclude additional follow up of suspicious palpable abnormalities. Patient should continue monthly self breast exam. A clinical breast exam by your physician is recommended on an annual basis and results should be correlated with mammographic findings. Note on Shala scores and lifetime risk: 1. A Shala score greater than 3% is considered moderate risk. If this is the case, consider specialist referral to assess eligibility for a risk reducing agent. 2. If overall lifetime risk for the development of breast cancer is 20% or higher, the patient may qualify for future screening with alternating mammogram and breast MRI. [facility], , 05/18/2024 11:29 AM. Electronically signed and approved by: Juan Madrid D.O. Radiologis
== END | disposition home or self-care (01) ==
LOC: RADMAMWWP 16:29
PROVIDERS: ATTEND Family Medicine
DX: Z12.31 Encounter for screening mammogram for malignant neoplasm of breast
CPT/HCPCS: 77063; 77067

== ENCOUNTER → 2024-07-21 | Outpatient (CLI) | payer OTHER | END | disposition home or self-care (01) | LOC: LABWHC1 10:49 | PROVIDERS: ATTEND Internal Medicine | DX: E11.65 Type 2 diabetes mellitus with hyperglycemia (principal) | CPT/HCPCS: 36415; 83036 ==

== ENCOUNTER 2024-10-15 13:31 | Emergency (ER) | payer OTHER ==
[2024-10-15 13:40] VITALS: TEMP 98.3
[2024-10-15 14:02] LABS: Appearance,Urine Clear (Clear); Bilirubin,Urine Negative (Negative); Blood,Urine Negative (Negative); Color,Urine Colorless; Glucose,Urine (UA) Negative (Negative); Ketones,Urine Negative (Negative); Leukocyte Esterase,Urine Negative (Negative); Nitrite,Urine Negative (Negative); Protein,Urine Negative (Negative); Specific Gravity,Urine 1.006 (1.001-1.035); Urobilinogen,Urine <2.0 mg/dL (<2.0)
[2024-10-15 15:06] LABS: Glucose,Whole Blood 139 mg/dL (70-110)
--- NOTE | 2024-10-15 15:15 | ED ---
Abdominal Pain HPI - General Chief Complaint: Abdominal Pain Stated Complaint: NVD Time Seen by Provider: 10/15/24 15:12 Source: patient, RN notes reviewed Mode of arrival: ambulatory Limitations: no limitations - History of Present Illness Initial Comments: 54-year-old female for right lower quadrant abdominal pain 2 days with associated nausea/vomiting/diarrhea. States pain is constant and feels like a "charley horse" in the right lower quadrant of the abdomen with some radiation to the left lower quadrant. Patient states she has been able to keep down some orals in between episodes of vomiting. She has an extensive abdominal surgical history including appendectomy, bariatric surgery, cholecystectomy, and hysterectomy. Denies blood thinners. Denies urinary symptoms, fever, chills. - Related Data Home Medications Medication Instructions Recorded Confirmed Cetirizine HCl [Zyrtec] 10 mg PO DAILY 06/13/18 01/01/24 Mirtazapine [Remeron] 15 mg PO HS 10/08/18 01/01/24 LORazepam [Ativan] 0.5 mg PO Q6H PRN 04/23/19 01/01/24 Propranolol HCl [Inderal Xl] 80 mg PO HS 04/23/19 01/01/24 Gabapentin 300 mg PO DAILY 02/28/22 01/01/24 Rizatriptan Odt [Maxalt MERCHANDISE WORKER] 10 mg PO TID PRN 02/28/22 01/01/24 Furosemide [Lasix] 20 mg PO BID 02/16/23 01/01/24 Escitalopram [Lexapro] 20 mg PO DAILY 03/21/23 01/01/24 Gabapentin 600 mg PO HS 11/17/23 01/01/24 Insulin Glargine,Hum.rec.anlog 30 units SQ DAILY 11/17/23 01/01/24 [Lantus Solostar Pen] Ondansetron Odt [Zofran ODT] 8 mg PO Q8HR PRN 11/17/23 01/01/24 Tirzepatide [Mounjaro] 5 mg SQ FR 11/17/23 01/01/24 Diphenoxylate HCl/Atropine 2 tab PO QID PRN 01/01/24 01/01/24 [Lomotil 2.5-0.025 mg Tablet] Famotidine [Pepcid] 20 mg PO BID 01/01/24 01/01/24 Previous Rx's Medication Instructions Recorded Dicyclomine [Bentyl] 20 mg PO QID 30 Days #240 cap 12/05/23 Ondansetron Odt [Zofran Odt] 4 mg PO Q8HR PRN #10 tab 10/15/24 Allergies Allergy/AdvReac Type Severity Reaction Status Date / Time oxycodone [From Percocet] Allergy Unknown Swelling; Verified 10/15/24 13:39 (WAS ABLE TO TAKE ALONG WITH BENADRYL) apricot Allergy Dyspnea Verified 10/15/24 13:39 barium sulfate Allergy Anaphylaxis Verified 10/15/24 13:39 [From Readi-Cat] codeine Allergy Anaphylaxis Verified 10/15/24 13:39 fentanyl Allergy Rash/Hives Verified 10/15/24 13:39 hydrocodone [From Lortab] Allergy Swelling Verified 10/15/24 13:39 Iodinated Contrast Media Allergy Anaphylaxis Verified 10/15/24 13:39 iodine Allergy Rash/Hives Verified 10/15/24 13:39 iron Allergy Swelling Verified 10/15/24 13:39 levofloxacin [From Levaquin] Allergy Swelling Verified 10/15/24 13:39 morphine Allergy Rash/Hives, Verified 10/15/24 13:39 Nausea/Vomiting peach Allergy Swelling Verified 10/15/24 13:39 peanut Allergy Swelling Verified 10/15/24 13:39 peanut oil Allergy Anaphylaxis Verified 10/15/24 13:39 shellfish derived [Shellfish] Allergy Anaphylaxis Verified 10/15/24 13:39 strawberry Allergy Anaphylaxis Verified 10/15/24 13:39 sucralfate [From Carafate] Allergy Swelling Verified 10/15/24 13:39 Sulfa (Sulfonamide Allergy Anaphylaxis Verified 10/15/24 13:39 Antibiotics) sulfamethoxazole Allergy Anaphylaxis Verified 10/15/24 13:39 [From Bactrim] tree nut [Nut] Allergy Swelling Verified 10/15/24 13:39 trimethoprim [From Bactrim] Allergy Anaphylaxis Verified 10/15/24 13:39 metronidazole [From Flagyl] AdvReac "made me Verified 10/15/24 13:39 hot" Review of Systems ROS Statement: Those systems with pertinent positive or pertinent negative responses have been documented in the HPI. ROS Other: All systems not noted in ROS Statement are negative. Past Medical History Past Medical History: Asthma, Cancer, CVA/TIA, Diabetes Mellitus, Fibromyalgia, GERD/Reflux, Hyperlipidemia, Osteoarthritis (OA), Pneumonia Additional Past Medical History / Comment(s): Had Iron infusions in Apr 2019. Hx TIA 2015. Diabetic neuropathy eli feet, migraines, cervical disc disease, DDD, eli tinnitis, arthiritis bilateral shoulders, IBS, HX R arm fx yrs ago, R ovarian cyst, hiatal hernia, UTIs, urinary calculus, pancreatitis x 2, stomach ulcer. Hx cervical cancer. COVID 08/2020 History of Any Multi-Drug Resistant Organisms: C-DIFF Date of last positivie culture/infection: 2016 MDRO Source:: None Past Surgical History: Appendectomy, Bariatric Surgery, Cholecystectomy, Hysterectomy, Tonsillectomy Additional Past Surgical History / Comment(s): 2010 felix-en-Y, fistula repair 2011, 2011 gastric bypass revision, bowel resection, lap gastrojejunostomy anastamosis revision, EGD and colonoscopy, cone bx-cervical cancer removed with cryo, L fallopian tube removed due to cyst, picc line in and out, CERVICAL FUSION 12/21/16. Past Anesthesia/Blood Transfusion Reactions: Family History of Problems w/ Anesthesia, Motion Sickness, Postoperative Nausea & Vomiting (PONV) Additional Past Anesthesia/Blood Transfusion Reaction / Comment(s): Pt states she has never recieved blood. FAMILY HX PONV. Past Psychological History: Anxiety, Depression Smoking Status: Never smoker Past Alcohol Use History: None Reported Past Drug Use History: None Reported - Past Family History Brother(s) History Unknown: Yes Family Medical History: Deep Vein Thrombosis (DVT) Father Family Medical History: Cancer, Deep Vein Thrombosis (DVT), Pulmonary Embolus Additional Family Medical History / Comment(s): Father had poss colon and lung cancer and at age 73yrs. Mother History Unknown: Yes Family Medical History: Coronary Artery Disease (CAD), Diabetes Mellitus, Deep Vein Thrombosis (DVT), Hypertension, Pulmonary Embolus Additional Family Medical History / Comment(s): Mother is alive and 73 yrs old. General Exam Limitations: no limitations General appearance: alert, in no apparent distress Head exam: Present: atraumatic, normocephalic, normal inspection Eye exam: Present: normal appearance, PERRL, EOMI. Absent: scleral icterus, conjunctival injection, periorbital swelling Respiratory exam: Present: normal lung sounds bilaterally. Absent: respiratory distress, wheezes, rales, rhonchi, stridor Cardiovascular Exam: Present: regular rate, normal rhythm, normal heart sounds. Absent: systolic murmur, diastolic murmur, rubs, gallop, clicks GI/Abdominal exam: Present: soft, tenderness (Right lower quadrant tenderness to palpation), guarding, normal bowel sounds. Absent: distended, rebound, rigid Back exam: Absent: CVA tenderness (R), CVA tenderness (L) Neurological exam: Present: alert, oriented X3 Psychiatric exam: Present: normal affect, normal mood Skin exam: Present: warm, dry, intact, normal color. Absent: rash Course Vital Signs 10/15/24 10/15/24 10/15/24 13:37 16:15 17:44 Temperature 98.3 F Pulse Rate 130 H 96 100 Respiratory 18 16 16 Rate Blood Pressure 135/81 116/86 109/82 O2 Sat by Pulse 98 95 97 Oximetry 10/15/24 18:00 Temperature Pulse Rate 101 H Respiratory 16 Rate Blood Pressure 114/77 O2 Sat by Pulse 96 Oximetry Medical Decision Making - Medical Decision Making Was pt. sent in by a medical professional or institution (, PA, DEPARTMENT CHAIR, urgent care, hospital, or usp...) When possible be specific @ -No Did you speak to anyone other than the patient for history (EMS, parent, family, police, friend...)? What history was obtained from this source @ -No Did you review nursing and triage notes (agree or disagree)? Why? @ -I reviewed and agree with nursing and triage notes Were old charts reviewed (outside hosp., previous admission, EMS record, old EKG, old radiological studies, urgent care reports/EKG's, usp records)? Report findings @ -No old charts were reviewed Differential Diagnosis (chest pain, altered mental status, abdominal pain women, abdominal pain men, vaginal bleeding, weakness, fever, dyspnea, syncope, headache, dizziness, GI bleed, back pain, seizure, CVA, palpatations, mental health, musculoskeletal)? @ -Differential Abdominal Pain Women: Appendicitis, Cholecystitis, diverticulosis, ischemic bowel, pancreatitis, hepatitis, UTI, gastroenteritis, AAA, incarcerated hernia, bowel obstruction, constipation, inflammatory bowel, hepatitis, peptic ulcer disease, splenic in farction, perforated viscus, vulvitis, ovarian torsion, PID, kidney stone, placenta abruption, this is not meant to be an all-inclusive list EKG interpreted by me (3pts min.). @ -None X-rays interpreted by me (1pt min.). @ -None done CT interpreted by me (1pt min.). @ -CT of abdomen pelvis reveals no acute process U/S interpreted by me (1pt. min.). @ -None done What testing was considered but not performed or refused? (CT, X-rays, U/S, labs)? Why? @ -None What meds were considered but not given or refused? Why? @ -None Did you discuss the management of the patient with other professionals (pr ofessionals i.e. , PA, DEPARTMENT CHAIR, lab, RT, psych nurse, social service liaison, rn or lpn, teacher, assault amphibious vehicle officer, comp field case manager)? Give summary @ -No Was smoking cessation discussed for >3mins.? @ -No Was critical care preformed (if so, how long)? @ -No Were there social determinants of health that impacted care today? How? (Homelessness, low income, unemployed, alcoholism, drug addiction, transportation, low edu. Level, literacy, decrease access to med. care, assisted, rehab)? @ -No Was there de-escalation of care discussed even if they declined (Discuss DNR or withdrawal of care, Hospice)? DNR status @ -No What co-morbidities impacted this encounter? (DM, HTN, Smoking, COPD, CAD, Cancer, CVA, ARF, Chemo, Hep., AIDS, mental health diagnosis, sleep apnea, morbid obesity)? @ -None Was patient admitted / discharged? Hospital course, mention meds given and route, prescriptions, significant lab abnormalities, going to OR and other pertinent info. @ -Discharge. This is a 54-year-old female presenting for right lower quadrant abdominal pain x 2 days with associated nausea/vomiting/diarrhea. Patient is tachycardic, otherwise vital signs within acceptable limits. Heart rate decreases to 96 upon reevaluation. Patient is provided with IV fluids, analgesics, and antiemetics. Lab work remarkable for mild leukocytosis of 11.7, lactic acid 2.1. Urinalysis unremarkable. CT abdomen pelvis reveals no acute process. Discussed results with patient. I highly suspect symptoms are due to viral gastroenteritis at this time. Appropriate return precautions and follow- up care discussed. Case was discussed with the ED attending Dr. Vega. Undiagnosed new problem with uncertain prognosis? @ -No Drug Therapy requiring intensive monitoring for toxicity (Heparin, Nitro, Insulin, Cardizem)? @ -No Were any procedures done? @ -No Diagnosis/symptom? @ -Viral gastroenteritis Acute, or Chronic, or Acute on Chronic? @ -Acute Uncomplicated (without systemic symptoms) or Complicated (systemic symptoms)? @ -Uncomplicated Side effects of treatment? @ -No Exacerbation, Progression, or Severe Exacerbation? @ -No Poses a threat to life or bodily function? How? (Chest pain, [place], [place], pneumonia, PE, COPD, DKA, ARF, appy, cholecystitis, CVA, Diverticulitis, Homicidal, Suicidal, threat to staff... and all critical care pts) @ -Not at this time - Lab Data Result diagrams: 10/15/24 15:58 10/15/24 15:58 Lab Results 10/15/24 10/15/24 10/15/24 Range/Units 13:39 15:04 15:58 WBC 11.7 H (3.8-10.6) k/uL RBC 5.23 (3.80-5.40) m/uL Hgb 12.3 (11.4-16.0) gm/dL Hct 40.3 (34.0-46.0) % MCV 76.9 L (80.0-100.0) fL MCH 23.6 L (25.0-35.0) pg MCHC 30.7 L (31.0-37.0) g/dL RDW 14.9 (11.5-15.5) % Plt Count 398 (150-450) k/uL MPV 7.5 Neutrophils % 57 % Lymphocytes % 35 % Monocytes % 5 % Eosinophils % 1 % Basophils % 1 % Neutrophils # 6.6 (1.3-7.7) k/uL Lymphocytes # 4.0 (1.0-4.8) k/uL Monocytes # 0.6 (0-1.0) k/uL Eosinophils # 0.1 (0-0.7) k/uL Basophils # 0.1 (0-0.2) k/uL Hypochromasia Slight Microcytosis Slight Sodium (137-145) mmol/L Potassium (3.5-5.1) mmol/L Chloride (98-107) mmol/L Carbon Dioxide (22-30) mmol/L Anion Gap mmol/L BUN (7-17) mg/dL Creatinine (0.52-1.04) mg/dL Est GFR (CKD-EPI)AfAm (>60 ml/min/1.73 sqM) Est GFR (CKD-EPI)NonAf (>60 ml/min/1.73 sqM) Glucose (74-99) mg/dL POC Glucose (mg/dL) 139 H (70-110) mg/dL POC Glu Yeast Fermentation Attendant ID November Lactic Ac Sepsis Rflx Plasma Lactic Acid Adam (0.7-2.0) mmol/L Calcium (8.4-10.2) mg/dL Total Bilirubin (0.2-1.3) mg/dL AST (14-36) U/L ALT (4-34) U/L Alkaline Phosphatase (38-126) U/L Total Protein (6.3-8.2) g/dL Albumin (3.5-5.0) g/dL Lipase (23-300) U/L Urine Color Colorless Urine Appearance Clear (Clear) Urine pH 5.0 (5.0-8.0) Ur Specific [place] 1.006 (1.001-1.035) Urine Protein Negative (Negative) Urine Glucose (UA) Negative (Negative) Urine Ketones Negative (Negative) Urine Blood Negative (Negative) Urine Nitrite Negative (Negative) Urine Bilirubin Negative (Negative) Urine Urobilinogen <2.0 (<2.0) mg/dL Ur Leukocyte Esterase Negative (Negative) 10/15/24 10/15/24 10/15/24 Range/Units 15:58 15:58 16:17 WBC (3.8-10.6) k/uL RBC (3.80-5.40) m/uL Hgb (11.4-16.0) gm/dL Hct (34.0-46.0) % MCV (80.0-100.0) fL MCH (25.0-35.0) pg MCHC (31.0-37.0) g/dL RDW (11.5-15.5) % Plt Count (150-450) k/uL MPV Neutrophils % % Lymphocytes % % Monocytes % % Eosinophils % % Basophils % % Neutrophils # (1.3-7.7) k/uL Lymphocytes # (1.0-4.8) k/uL Monocytes # (0-1.0) k/uL Eosinophils # (0-0.7) k/uL Basophils # (0-0.2) k/uL Hypochromasia Microcytosis Sodium 141 (137-145) mmol/L Potassium 3.7 (3.5-5.1) mmol/L Chloride 99 (98-107) mmol/L Carbon Dioxide 27 (22-30) mmol/L Anion Gap 15 mmol/L BUN 13 (7-17) mg/dL Creatinine 0.74 (0.52-1.04) mg/dL Est GFR (CKD-EPI)AfAm >90 (>60 ml/min/1.73 sqM) Est GFR (CKD-EPI)NonAf >90 (>60 ml/min/1.73 sqM) Glucose 124 H (74-99) mg/dL POC Glucose (mg/dL) (70-110) mg/dL POC Glu Yeast Fermentation Attendant ID Lactic Ac Sepsis Rflx Y Plasma Lactic Acid Adam 2.1 H* (0.7-2.0) mmol/L Calcium 9.8 (8.4-10.2) mg/dL Total Bilirubin 0.8 (0.2-1.3) mg/dL AST 34 (14-36) U/L ALT 30 (4-34) U/L Alkaline Phosphatase 116 (38-126) U/L Total Protein 8.5 H (6.3-8.2) g/dL Albumin 5.0 (3.5-5.0) g/dL Lipase 73 (23-300) U/L Urine Color Urine Appearance (Clear) Urine pH (5.0-8.0) Ur Specific [place] (1.001-1.035) Urine Protein (Negative) Urine Glucose (UA) (Negative) Urine Ketones (Negative) Urine Blood (Negative) Urine Nitrite (Negative) Urine Bilirubin (Negative) Urine Urobilinogen (<2.0) mg/dL Ur Leukocyte Esterase (Negative) Disposition Clinical Impression: Viral gastroenteritis Disposition: HOME SELF-CARE Condition: Stable Instructions (If sedation given, give patient instructions): Gastroenteritis (ED) Additional Instructions: Take Zofran as needed for nausea. Please return to the Emergency Department if symptoms worsen or any other concerns. Prescriptions: Ondansetron Odt [Zofran Odt] 4 mg PO Q8HR PRN #10 tab PRN Reason: Nausea Is patient prescribed a controlled substance at d/c from ED?: No Referrals: Macy Knight MD [Primary Care Provider] - 1-2 days Time of Disposition: 18:48
[2024-10-15] MEDS: ACETAMINOPHEN TAB 500 MG TAB PO STA (16:00)
[2024-10-15] MEDS: DICYCLOMINE 20 MG TAB PO STA (16:00)
[2024-10-15] MEDS: diphenhydrAMINE 50 MG/ML 1 ML VIAL IVP STA (16:01)
[2024-10-15] MEDS: FAMOTIDINE 20 MG/2 ML VIAL IV STA (16:02)
[2024-10-15] MEDS: methylPREDNISolone SOD SUCCI 125 MG/2 ML VIAL IV STA (16:04)
[2024-10-15] MEDS: ONDANSETRON 4 MG/2 ML VIAL IVP STA (16:05)
[2024-10-15 16:06] LABS: Basophils # (A) 0.1 k/uL (0-0.2); Basophils % (A) 1 %; Eosinophils # (A) 0.1 k/uL (0-0.7); Eosinophils % (A) 1 %; HCT 40.3 % (34.0-46.0); HGB 12.3 gm/dL (11.4-16.0); Hypochromasia Slight; Lymphocytes % (A) 35 %; MCH 23.6 pg (25.0-35.0); MCHC 30.7 g/dL (31.0-37.0); MCV 76.9 fL (80.0-100.0); Mean Platelet Volume 7.5; Microcytosis Slight; Monocytes # (A) 0.6 k/uL (0-1.0); Monocytes % (A) 5 %; Neutrophils # (A) 6.6 k/uL (1.3-7.7); Neutrophils % (A) 57 %; Platelet Count 398 k/uL (150-450); RBC 5.23 m/uL (3.80-5.40); RDW 14.9 % (11.5-15.5); WBC 11.7 k/uL (3.8-10.6)
[2024-10-15] MEDS: SODIUM CHLORIDE 0.9% 1,000 ML IV STA (16:06)
[2024-10-15 16:14] LABS: ALT 30 U/L (4-34); AST 34 U/L (14-36); African American GFR (CKD) >90 (>60 ml/min/1.73 sqM); Alkaline Phosphatase 116 U/L (38-126); Anion Gap 15 mmol/L; Blood Urea Nitrogen 13 mg/dL (7-17); Calcium 9.8 mg/dL (8.4-10.2); Carbon Dioxide 27 mmol/L (22-30); Chloride 99 mmol/L (98-107); Glucose 124 mg/dL (74-99); Lipase 73 U/L (23-300); Non-African American GFR(CKD) >90 (>60 ml/min/1.73 sqM); Potassium 3.7 mmol/L (3.5-5.1); Sodium 141 mmol/L (137-145); Total Bilirubin 0.8 mg/dL (0.2-1.3); Total Protein 8.5 g/dL (6.3-8.2)
[2024-10-15] MEDS: HYDROmorphone 1 MG/ML 1 ML SYRINGE IVP STA (17:38)
--- NOTE | 2024-10-15 18:25 | CT ---
EXAMINATION TYPE: CT abdomen pelvis w con DATE OF EXAM: 10/15/2024 HISTORY: lower abdominal pain, nausea, vomiting. CT DLP: 1117.4mGycm Automated Exposure Control for Dose Reduction was Utilized. CONTRAST: CT scan of the abdomen and pelvis is performed with IV Contrast, patient injected with 100ml mL of Is ovue 300. COMPARISON: CT abdomen and pelvis November 16, 2023 FINDINGS: LUNG BASES: No significant abnormality is appreciated. LIVER/GB: Cholecystectomy clips are redemonstrated. PANCREAS: No significant abnormality is seen. SPLEEN: No significant abnormality is seen. ADRENALS: No significant abnormality is seen. KIDNEYS: Subcentimeter round low-density lesion upper pole right kidney axial image 27 is too small t o further characterize but is presumed benign. BOWEL: Slightly suboptimal evaluation without enteric contrast. Surgical changes epigastric region fr om gastric bypass procedure are redemonstrated. Remnant distal bypassed stomach is poorly distended and suboptimally evaluated similar to prior. No abnormal small or large bowel dilatation is seen. Nila endix is surgically absent. UTERUS/[place]NEXA: Uterus is surgically absent similar to prior. LYMPH NODES: No greater than 1cm abdominal or pelvic lymph nodes are appreciated. OSSEOUS STRUCTURES: No significant abnormality is seen. OTHER: No significant additional abnormality is seen. IMPRESSION: No bowel obstruction. No significant new and/or acute finding is seen to account for donna ent's clinical symptoms. [facility] Allyson Nicole, , 10/15/2024 6:23 PM
[2024-10-15] MEDS: HYDROmorphone 0.5 MG/0.5 ML SYRINGE IVP STA (19:19)
[2024-10-15 19:24] VITALS: BP 109/68; PULSE 97; RESP 18
== END 2024-10-15 19:24 | disposition home or self-care (01) ==
LOC: EC 13:31
DX: A08.4 Viral intestinal infection, unspecified (principal); R10.32 Left lower quadrant pain; R10.31 Right lower quadrant pain; Z88.1 Allergy status to other antibiotic agents; Z88.2 Allergy status to sulfonamides; Z88.5 Allergy status to narcotic agent; Z91.018 Allergy to other foods; Z91.010 Allergy to peanuts; Z91.013 Allergy to seafood; Z91.041 Radiographic dye allergy status; Z91.048 Other nonmedicinal substance allergy status; Z88.8 Allergy status to other drugs, medicaments and biological substances
CPT/HCPCS: 36415; 80053; 83605; 83690; 85025; 81003; 74177; 99284; 96374; 96375; 96376; 96361; J1200; J2405; J3490; J1171 ×2; Q9967; J2919

== ENCOUNTER 2024-11-11 14:09 | Emergency (ER) | payer OTHER ==
[2024-11-11 14:41] VITALS: PULSE 92
--- NOTE | 2024-11-11 14:41 | ED ---
Abdominal Pain HPI - General Source: patient, RN notes reviewed Mode of arrival: ambulatory Limitations: no limitations <ChonJeanAubrey - Last Filed: 11/11/24 14:40> - General Source: patient, RN notes reviewed, old records reviewed <Basil Harman - Last Filed: 11/11/24 20:50> - General Stated Complaint: Abd Pain,Vomiting,Diarrhea Time Seen by Provider: 11/11/24 14:23 - History of Present Illness Initial Comments: Quick note: This is a 54-year-old female with history of ileus, GI obstruction presenting with lower abdominal pain x 3 days. Patient endorses associated fever/chills and N/V/D. (Aubrye Givens) Patient is a 54-year-old female presents who presents emergency department complaining of acute on chronic abdominal pain. Has a history of chronic abdominal pain with history of gastric bypass, multiple abdominal surgeries. Follows with Dr. Amrstrong. Also has a history of diabetes. States has been having nausea and vomiting and diarrhea for a few days. No fevers or chills. No urinary complaints. Decreased oral intake. Is not endorsing generalized abdominal discomfort. Presents for further evaluation at this time. Originally seen as a quick note. Workup started in triage. I evaluated patient when she was placed in a room. (Basil Harman) - Related Data Home Medications Medication Instructions Recorded Confirmed Cetirizine HCl [Zyrtec] 10 mg PO DAILY 06/13/18 10/15/24 Mirtazapine [Remeron] 15 mg PO HS 10/08/18 10/15/24 LORazepam [Ativan] 0.5 mg PO Q6H PRN 04/23/19 10/15/24 Propranolol HCl [Inderal Xl] 80 mg PO DAILY PRN 04/23/19 10/15/24 Gabapentin 300 mg PO TID 02/28/22 10/15/24 Furosemide [Lasix] 20 mg PO BID 02/16/23 10/15/24 Escitalopram [Lexapro] 20 mg PO DAILY 03/21/23 10/15/24 Insulin Glargine,Hum.rec.anlog 30 units SQ DAILY 11/17/23 10/15/24 [Lantus Solostar Pen] Tirzepatide [Mounjaro] 5 mg SQ WE 11/17/23 10/15/24 Docusate [Colace] 100 mg PO DAILY PRN 10/15/24 10/15/24 INSULIN ASPART (NovoLOG) [NovoLOG 5 unit SQ TID-W/MEALS 10/15/24 10/15/24 (formulary)] INSULIN ASPART (NovoLOG) [NovoLOG See Protocol SQ TID-W/MEALS PRN 10/15/24 10/15/24 (formulary)] Ibuprofen [Motrin] 600 mg PO Q6H PRN 10/15/24 10/15/24 Pioglitazone [Actos] 30 mg PO DAILY 10/15/24 10/15/24 Simvastatin [Zocor] 80 mg PO HS 10/15/24 10/15/24 buPROPion XL [Wellbutrin XL] 300 mg PO DAILY 10/15/24 10/15/24 metFORMIN HCL ER [Glucophage XR] 1,000 mg PO BID 10/15/24 10/15/24 Previous Rx's Medication Instructions Recorded Dicyclomine [Bentyl] 20 mg PO QID 30 Days #240 cap 12/05/23 Ondansetron Odt [Zofran Odt] 4 mg PO Q8HR PRN #10 tab 10/15/24 HYDROcodone/APAP 5-325MG [Perry 1 tab PO Q4HR PRN 3 Days #18 tab 11/11/24 5-325] Allergies Allergy/AdvReac Type Severity Reaction Status Date / Time oxycodone [From Percocet] Allergy Unknown Swelling; Verified 10/15/24 18:53 (WAS ABLE TO TAKE ALONG WITH BENADRYL) apricot Allergy Dyspnea Verified 10/15/24 18:53 barium sulfate Allergy Anaphylaxis Verified 10/15/24 18:53 [From Readi-Cat] codeine Allergy Anaphylaxis Verified 10/15/24 18:53 fentanyl Allergy Rash/Hives Verified 10/15/24 18:53 hydrocodone [From Lortab] Allergy Swelling Verified 10/15/24 18:53 Iodinated Contrast Media Allergy Anaphylaxis Verified 10/15/24 18:53 iodine Allergy Rash/Hives Verified 10/15/24 18:53 iron Allergy Swelling Verified 10/15/24 18:53 levofloxacin [From Levaquin] Allergy Swelling Verified 10/15/24 18:53 morphine Allergy Rash/Hives, Verified 10/15/24 18:53 Nausea/Vomiting peach Allergy Swelling Verified 10/15/24 18:53 peanut Allergy Swelling Verified 10/15/24 18:53 peanut oil Allergy Anaphylaxis Verified 10/15/24 18:53 shellfish derived [Shellfish] Allergy Anaphylaxis Verified 10/15/24 18:53 strawberry Allergy Anaphylaxis Verified 10/15/24 18:53 sucralfate [From Carafate] Allergy Swelling Verified 10/15/24 18:53 Sulfa (Sulfonamide Allergy Anaphylaxis Verified 10/15/24 18:53 Antibiotics) sulfamethoxazole Allergy Anaphylaxis Verified 10/15/24 18:53 [From Bactrim] tree nut [Nut] Allergy Swelling Verified 10/15/24 18:53 trimethoprim [From Bactrim] Allergy Anaphylaxis Verified 10/15/24 18:53 metronidazole [From Flagyl] AdvReac "made me Verified 10/15/24 18:53 hot" Review of Systems ROS Other: All systems not noted in ROS Statement are negative. <Aubrey Givens - Last Filed: 11/11/24 14:40> ROS Other: All systems not noted in ROS Statement are negative. <Basil Harman - Last Filed: 11/11/24 20:50> ROS Statement: Those systems with pertinent positive or pertinent negative responses have been documented in the HPI. Review of Systems: CONST: Denies fever EYES: Denies blurry vision ENT: Denies nasal congestion C/V: Denies Chest pain RESP: Denies shortness of breath GI: Endorses abdominal pain : Denies dysuria SKIN: Denies rash. MSK: Denies joint pain. NEURO: Denies headache (Basil Harman) Past Medical History Past Medical History: Asthma, Cancer, CVA/TIA, Diabetes Mellitus, Fibromyalgia, GERD/Reflux, Hyperlipidemia, Osteoarthritis (OA), Pneumonia Additional Past Medical History / Comment(s): Had Iron infusions in Apr 2019. Hx TIA 2015. Diabetic neuropathy eli feet, migraines, cervical disc disease, DDD, eli tinnitis, arthiritis bilateral shoulders, IBS, HX R arm fx yrs ago, R ovarian cyst, hiatal hernia, UTIs, urinary calculus, pancreatitis x 2, stomach ulcer. Hx cervical cancer. COVID 08/2020 History of Any Multi-Drug Resistant Organisms: C-DIFF Date of last positivie culture/infection: 2016 MDRO Source:: None Past Surgical History: Appendectomy, Bariatric Surgery, Cholecystectomy, Hysterectomy, Tonsillectomy Additional Past Surgical History / Comment(s): 2010 felix-en-Y, fistula repair 2011, 2011 gastric bypass revision, bowel resection, lap gastrojejunostomy anastamosis revision, EGD and colonoscopy, cone bx-cervical cancer removed with cryo, L fallopian tube removed due to cyst, picc line in and out, CERVICAL FUSION 12/21/16. Past Anesthesia/Blood Transfusion Reactions: Family History of Problems w/ Anesthesia, Motion Sickness, Postoperative Nausea & Vomiting (PONV) Additional Past Anesthesia/Blood Transfusion Reaction / Comment(s): Pt states she has never recieved blood. FAMILY HX PONV. Past Psychological History: Anxiety, Depression Smoking Status: Never smoker Past Alcohol Use History: None Reported Past Drug Use History: None Reported - Past Family History Brother(s) History Unknown: Yes Family Medical History: Deep Vein Thrombosis (DVT) Father Family Medical History: Cancer, Deep Vein Thrombosis (DVT), Pulmonary Embolus Additional Family Medical History / Comment(s): Father had poss colon and lung cancer and at age 73yrs. Mother History Unknown: Yes Family Medical History: Coronary Artery Disease (CAD), Diabetes Mellitus, Deep Vein Thrombosis (DVT), Hypertension, Pulmonary Embolus Additional Family Medical History / Comment(s): Mother is alive and 73 yrs old. <Aubrey Givens - Last Filed: 11/11/24 14:40> General Exam <Aubrey Givens - Last Filed: 11/11/24 14:40> <Basil Harman - Last Filed: 11/11/24 20:50> - General Exam Comments Initial Comments: Visual Physical Exam Vital signs reviewed General: Well-appearing, nontoxic, no acute distress. Head: Normocephalic, atraumatic Eyes: PERRLA, EOMI ENT: Airway patent Chest: Nonlabored breathing Skin: No visual rash, normal skin tone Neuro: Alert and oriented 3 Musculoskeletal: No gross abnormalities (Aubrey Givens) General: Appears in no acute distress. HEAD: Normal with no signs of head trauma. EYES: EOMI ENT: Hearing grossly intact, normal oropharynx. RESPIRATORY: Clear breath sounds bilaterally. No wheezes, rales, or rhonchi. C/V: Regular rate and rhythm. S1 and S2 auscultated, no edema, peripheral pulses 2+ and intact throughout ABD: Abdomen soft, nondistended. Nonfocal abdominal discomfort on palpation. No guarding or rebound tenderness. No peritoneal signs. EXT: No obvious deformity. SKIN: No rashes or lesions observed on exposed skin. NEURO: Alert and oriented x 4. (Basil Harman) Course Vital Signs 11/11/24 11/11/24 14:37 20:34 Temperature 98.2 F 98.5 F Pulse Rate 92 92 Respiratory 18 20 Rate Blood Pressure 124/81 110/73 O2 Sat by Pulse 99 97 Oximetry Medical Decision Making <Aubrey Givens - Last Filed: 11/11/24 14:40> - Lab Data Result diagrams: 11/11/24 16:27 11/11/24 16:27 <Basil Harman - Last Filed: 11/11/24 20:50> - Medical Decision Making I completed the quick note portion of this chart signed [place] Miranda (Aubrey Givens) Was pt. sent in by a medical professional or institution ([facility], [employer] [employer], urgent care, hospital, or [facility]...) When possible be specific @ -No Did you speak to anyone other than the patient for history (EMS, parent, family, police, friend...)? What history was obtained from this source @ -No Did you review nursing and triage notes (agree or disagree)? Why? @ -I reviewed and agree with nursing and triage notes Were old charts reviewed (outside hosp., previous admission, EMS record, old EKG, old radiological studies, urgent care reports/EKG's, [facility] records)? Report findings @ -Old charts reviewed. He has been seen in our department for similar complaints in the past. Differential Diagnosis (chest pain, altered mental status, abdominal pain women, abdominal pain men, vaginal bleeding, weakness, fever, dyspnea, syncope, headache, dizziness, GI bleed, back pain, seizure, CVA, palpatations, mental health, musculoskeletal)? @ -Differential Abdominal Pain Women: Appendicitis, Cholecystitis, diverticulosis, ischemic bowel, pancreatitis, hepatitis, UTI, gastroenteritis, AAA, incarcerated hernia, bowel obstruction, c onstipation, inflammatory bowel, hepatitis, peptic ulcer disease, splenic infarction, perforated viscus, vulvitis, ovarian torsion, PID, kidney stone, placenta abruption, this is not meant to be an all-inclusive list EKG interpreted by me (3pts min.). @ -None done X-rays interpreted by me (1pt min.). @ -None done CT interpreted by me (1pt min.). @ -CT abdomen pelvis reveals no obvious acute intra-abdominal process. U/S interpreted by me (1pt. min.). @ -None done What testing was considered but not performed or refused? (CT, X-rays, U/S, labs)? Why? @ -None What meds were considered but not given or refused? Why? @ -None Did you discuss the management of the patient with other professionals (professionals i.e. , PA, [employer] [facility], lab, RT, psych nurse, social work supervisor, sludge mill operator, teacher, founder and chief technical officer, disease case manager)? Give summary @ -Discussed with patient's surgeon, Dr. Contreras who was in agreement with plan for discharge and agree there is no indication for admission at this time. Patient to follow-up with her in the office. Was smoking cessation discussed for >3mins.? @ -No Was critical care preformed (if so, how long)? @ -No Were there social determinants of health that impacted care today? How? (Homelessness, low income, unemployed, alcoholism, drug addiction, transportation, low edu. Level, literacy, decrease access to med. care, fdc, rehab)? @ -No Was there de-escalation of care discussed even if they declined (Discuss DNR or withdrawal of care, Hospice)? DNR status @ -No What co-morbidities impacted this encounter? (DM, HTN, Smoking, COPD, CAD, Cancer, CVA, ARF, Chemo, Hep., AIDS, mental health diagnosis, sleep apnea, morbid obesity)? @ -None Was patient admitted / discharged? Hospital course, mention meds given and route, prescriptions, significant lab abnormalities, going to OR and other pertinent info. @ -Patient presents with acute on chronic abdominal pain with nausea vomiting diarrhea. Abdominal labs started in triage as well as CT. Patient will be administered IV fluids as well as antiemetics and pain meds. She was in agreement this plan. Vitals are within acceptable limits. CT imaging returned unremarkable for any obvious acute intra-abdominal process. Laboratory studies are within acceptable limits including normal lactic acid. No leukocytosis. Viral swabs negative. On reevaluation, patient administered additional analgesia medications. Discussed the case with her surgeon, Dr. Contreras who believes it is safer to be discharged home with close follow-up outpatient. Patient was in agreement this plan. She will be discharged home with a prescription for Perry as well as a starter pack of Zofran. Strict return precautions discussed. I instructed the patient to follow up with their PCP in the next 1-3 days. I explained that the patient should return to the emergency department if they experience any worsening symptoms. Strict return precautions were discussed with the patient. The patient expressed understanding of these instructions. I answered all questions that the patient had. The patient was discharged home in good condition with their prescriptions and follow up information. Undiagnosed new problem with uncertain prognosis? @ -No Drug Therapy requiring intensive monitoring for toxicity (Heparin, Nitro, Insulin, Cardizem)? @ -No Were any procedures done? @ -No Diagnosis/symptom? @ -Abdominal pain of unknown etiology, viral syndrome, nausea vomiting, diarrhea Acute, or Chronic, or Acute on Chronic? @ -Acute Uncomplicated (without systemic symptoms) or Complicated (systemic symptoms)? @ -Uncomplicated Side effects of treatment? @ -No Exacerbation, Progression, or Severe Exacerbation? @ -No Poses a threat to life or bodily function? How? (Chest pain, USA, GA, pneumonia, PE, COPD, DKA, ARF, appy, cholecystitis, CVA, Diverticulitis, Homicidal, Suicidal, threat to staff... and all critical care pts) @ -Unlikely at this time (Basil Harman) - Lab Data Lab Results 11/11/24 11/11/24 11/11/24 Range/Units 16:27 16:27 16:27 WBC 10.2 (3.8-10.6) k/uL RBC 5.36 (3.80-5.40) m/uL Hgb 12.7 (11.4-16.0) gm/dL Hct 40.9 (34.0-46.0) % MCV 76.3 L (80.0-100.0) fL MCH 23.6 L (25.0-35.0) pg MCHC 31.0 (31.0-37.0) g/dL RDW 14.6 (11.5-15.5) % Plt Count 394 (150-450) k/uL MPV 7.3 Neutrophils % 55 % Lymphocytes % 37 % Monocytes % 4 % Eosinophils % 2 % Basophils % 1 % Neutrophils # 5.6 (1.3-7.7) k/uL Lymphocytes # 3.7 (1.0-4.8) k/uL Monocytes # 0.4 (0-1.0) k/uL Eosinophils # 0.2 (0-0.7) k/uL Basophils # 0.1 (0-0.2) k/uL Hypochromasia Marked Microcytosis Slight Sodium 140 (137-145) mmol/L Potassium 4.6 (3.5-5.1) mmol/L Chloride 107 (98-107) mmol/L Carbon Dioxide 20 L (22-30) mmol/L Anion Gap 13 mmol/L BUN 9 (7-17) mg/dL Creatinine 0.52 (0.52-1.04) mg/dL Est GFR (CKD-EPI)AfAm >90 (>60 ml/min/1.73 sqM) Est GFR (CKD-EPI)NonAf >90 (>60 ml/min/1.73 sqM) Glucose 123 H (74-99) mg/dL Plasma Lactic Acid Adam 1.4 (0.7-2.0) mmol/L Calcium 9.8 (8.4-10.2) mg/dL Total Bilirubin 0.7 (0.2-1.3) mg/dL AST 38 H (14-36) U/L ALT 27 (4-34) U/L Alkaline Phosphatase 115 (38-126) U/L Total Protein 8.1 (6.3-8.2) g/dL Albumin 4.8 (3.5-5.0) g/dL Amylase 46 (30-110) U/L Lipase 73 (23-300) U/L Influenza Type A (PCR) (Not Detectd) Influenza Type B (PCR) (Not Detectd) RSV (PCR) (Not Detectd) SARS-CoV-2 (PCR) (Not Detectd) 11/11/24 Range/Units 16:27 WBC (3.8-10.6) k/uL RBC (3.80-5.40) m/uL Hgb (11.4-16.0) gm/dL Hct (34.0-46.0) % MCV (80.0-100.0) fL MCH (25.0-35.0) pg MCHC (31.0-37.0) g/dL RDW (11.5-15.5) % Plt Count (150-450) k/uL MPV Neutrophils % % Lymphocytes % % Monocytes % % Eosinophils % % Basophils % % Neutrophils # (1.3-7.7) k/uL Lymphocytes # (1.0-4.8) k/uL Monocytes # (0-1.0) k/uL Eosinophils # (0-0.7) k/uL Basophils # (0-0.2) k/uL Hypochromasia Microcytosis Sodium (137-145) mmol/L Potassium (3.5-5.1) mmol/L Chloride (98-107) mmol/L Carbon Dioxide (22-30) mmol/L Anion Gap mmol/L BUN (7-17) mg/dL Creatinine (0.52-1.04) mg/dL Est GFR (CKD-EPI)AfAm (>60 ml/min/1.73 sqM) Est GFR (CKD-EPI)NonAf (>60 ml/min/1.73 sqM) Glucose (74-99) mg/dL Plasma Lactic Acid Adam (0.7-2.0) mmol/L Calcium (8.4-10.2) mg/dL Total Bilirubin (0.2-1.3) mg/dL AST (14-36) U/L ALT (4-34) U/L Alkaline Phosphatase (38-126) U/L Total Protein (6.3-8.2) g/dL Albumin (3.5-5.0) g/dL Amylase (30-110) U/L Lipase (23-300) U/L Influenza Type A (PCR) Not Detected (Not Detectd) Influenza Type B (PCR) Not Detected (Not Detectd) RSV (PCR) Not Detected (Not Detectd) SARS-CoV-2 (PCR) Not Detected (Not Detectd) Disposition <Aubrey Givens - Last Filed: 11/11/24 14:40> Is patient prescribed a controlled substance at d/c from ED?: Yes When asked, does pt state using other controlled substances?: No If prescribed controlled substance>3 days was MAPS reviewed?: Prescribed <3 Days If opioid is for acute pain is fill amount 7 days or less?: Yes Time of Disposition: 19:49 <Basil Harman - Last Filed: 11/11/24 20:50> Clinical Impression: Viral syndrome, Abdominal pain of unknown etiology, Nausea and vomiting, Diarrhea Disposition: HOME SELF-CARE Condition: Fair Instructions (If sedation given, give patient instructions): Acute Nausea and Vomiting (ED), Acute Diarrhea (ED), Viral Syndrome (ED), Abdominal Pain (ED) Additional Instructions: Monitor your symptoms. Use analgesia medications at home. Return if any worsening symptoms. Follow-up with Dr. Contreras outpatient. Follow-up in the next 1 to 3 days. Prescriptions: HYDROcodone/APAP 5-325MG [Perry 5-325] 1 tab PO Q4HR PRN 3 Days #18 tab PRN Reason: Pain Referrals: Macy Knight MD [Primary Care Provider] - 1-2 days
[2024-11-11 16:42] LABS: Basophils # (A) 0.1 k/uL (0-0.2); Basophils % (A) 1 %; Eosinophils # (A) 0.2 k/uL (0-0.7); Eosinophils % (A) 2 %; HCT 40.9 % (34.0-46.0); HGB 12.7 gm/dL (11.4-16.0); Hypochromasia Marked; Lymphocytes # (A) 3.7 k/uL (1.0-4.8); Lymphocytes % (A) 37 %; MCH 23.6 pg (25.0-35.0); MCV 76.3 fL (80.0-100.0); Mean Platelet Volume 7.3; Microcytosis Slight; Monocytes # (A) 0.4 k/uL (0-1.0); Monocytes % (A) 4 %; Neutrophils # (A) 5.6 k/uL (1.3-7.7); Neutrophils % (A) 55 %; Platelet Count 394 k/uL (150-450); RBC 5.36 m/uL (3.80-5.40); RDW 14.6 % (11.5-15.5); WBC 10.2 k/uL (3.8-10.6)
[2024-11-11 16:56] LABS: ALT 27 U/L (4-34); AST 38 U/L (14-36); African American GFR (CKD) >90 (>60 ml/min/1.73 sqM); Albumin 4.8 g/dL (3.5-5.0); Alkaline Phosphatase 115 U/L (38-126); Amylase 46 U/L (30-110); Anion Gap 13 mmol/L; Blood Urea Nitrogen 9 mg/dL (7-17); Calcium 9.8 mg/dL (8.4-10.2); Carbon Dioxide 20 mmol/L (22-30); Chloride 107 mmol/L (98-107); Glucose 123 mg/dL (74-99); Lipase 73 U/L (23-300); Non-African American GFR(CKD) >90 (>60 ml/min/1.73 sqM); Potassium 4.6 mmol/L (3.5-5.1); Sodium 140 mmol/L (137-145); Total Bilirubin 0.7 mg/dL (0.2-1.3); Total Protein 8.1 g/dL (6.3-8.2)
[2024-11-11] MEDS: FAMOTIDINE 20 MG/2 ML VIAL IV STA (16:58)
[2024-11-11] MEDS: methylPREDNISolone SOD SUCCI 125 MG/2 ML VIAL IV STA (16:58)
[2024-11-11] MEDS: diphenhydrAMINE 50 MG/ML 1 ML VIAL IVP STA (16:59)
[2024-11-11 17:18] LABS: Influenza A Not Detected (Not Detectd); Influenza B Not Detected (Not Detectd); RSV Not Detected (Not Detectd)
--- NOTE | 2024-11-11 17:45 | CT ---
EXAMINATION TYPE: CT abdomen pelvis w con CT DLP: 1131 mGycm, Automated exposure control for dose reduction was used. DATE OF EXAM: 11/11/2024 5:35 PM COMPARISON: CT abdomen pelvis 10/15/2024, 11/16/2023, 11/07/2023, 03/22/2023 CLINICAL INDICATION:Female, 54 years old with history of Lower abdominal pain; Lower abdominal pain, N/V/D x3 days. TECHNIQUE: Standard CT of the abdomen and pelvis following the administration of 100 cc of Isovue 3 00 IV contrast material. Coronal and sagittal reformats were performed. FINDINGS: LOWER CHEST: Unremarkable ABDOMEN LIVER: Unremarkable GALLBLADDER AND BILE DUCTS: Gallbladder is surgically absent with mild extra hepatic biliary dilatati on likely physiologic and a postcholecystectomy change. No evidence of choledocholithiasis. PANCREAS: Unremarkable. SPLEEN: Unremarkable. ADRENAL GLANDS: Unremarkable. KIDNEYS AND URETERS: No evidence of hydronephrosis or renal calculus. The kidneys enhance symmetrical ly. Contrast is demonstrated within both collecting systems on the delayed phase. Subcentimeter right renal upper pole cortical cyst. PELVIS BLADDER: Underdistended, limiting evaluation. REPRODUCTIVE: The uterus is surgically absent. ABDOMEN & PELVIS STOMACH AND BOWEL: Postsurgical changes from gastric bypass procedure redemonstrated. Recommend dista l bypassed stomach is poorly distended and suboptimally visualized. This is similar to prior exam. Th e appendix is surgically absent. No focal bowel wall thickening or surrounding inflammatory changes. No evidence of bowel obstruction. PERITONEUM: No evidence of pneumoperitoneum or free fluid. VASCULATURE: No evidence of aortic aneurysm. Few pelvic phleboliths. MUSCULOSKELETAL: No acute osseous abnormalities LYMPH NODES: No evidence for lymphadenopathy. SOFT TISSUE/ABDOMINAL WALL: Unremarkable IMPRESSION: 1. No CT evidence for acute abdominal/pelvic process. 2. Similar postsurgical changes from gastric bypass. [facility], , 11/11/2024 5:42 PM
[2024-11-11] MEDS: SODIUM CHLORIDE 0.9% 1,000 ML IV STA (18:33)
[2024-11-11] MEDS: HYDROmorphone 1 MG/ML 1 ML SYRINGE IVP STA ×2 (18:34→20:23)
[2024-11-11] MEDS: SODIUM CHLORIDE 0.9% 1,000 ML IV ONE (18:35)
[2024-11-11] MEDS: ONDANSETRON 4 MG/2 ML VIAL IVP STA (18:35)
[2024-11-11] MEDS: ONDANSETRON 4 MG ODT STARTER PACK 2 TAB BTL PO STA (20:23)
[2024-11-11 20:36] VITALS: BP 110/73; RESP 20; TEMP 98.5
== END 2024-11-11 20:36 | disposition home or self-care (01) ==
LOC: EC 14:09
DX: B34.9 Viral infection, unspecified (principal); Z91.041 Radiographic dye allergy status; Z88.8 Allergy status to other drugs, medicaments and biological substances; Z88.5 Allergy status to narcotic agent; Z88.1 Allergy status to other antibiotic agents; Z88.2 Allergy status to sulfonamides; Z86.16 Personal history of COVID-19; Z86.73 Personal history of transient ischemic attack (TIA), and cerebral infarction without residual deficits
CPT/HCPCS: 36415; 80053; 82150; 83605; 83690; 85025; 87636; 74177; 99285; 96374; 96375 ×4; 96376; 96361 ×2; J1200; J2405; J3490; J1171; S0119; Q9967; J2919

== ENCOUNTER 2024-12-15 14:44 | Emergency (ER) | payer OTHER ==
[2024-12-15 14:59] VITALS: TEMP 97.9
[2024-12-15 15:18] LABS: Appearance,Urine Clear (Clear); Bilirubin,Urine Negative (Negative); Blood,Urine Negative (Negative); Color,Urine Colorless; Glucose,Urine (UA) Negative (Negative); Ketones,Urine Negative (Negative); Leukocyte Esterase,Urine Negative (Negative); Nitrite,Urine Negative (Negative); Protein,Urine Negative (Negative); Specific Gravity,Urine 1.005 (1.001-1.035); Urobilinogen,Urine <2.0 mg/dL (<2.0)
--- NOTE | 2024-12-15 15:36 | ED ---
Abdominal Pain HPI - General Source: patient, RN notes reviewed Mode of arrival: ambulatory Limitations: no limitations <Jessica Schulz - Last Filed: 12/15/24 15:35> - General Source: patient, RN notes reviewed Mode of arrival: ambulatory Limitations: no limitations - History of Present Illness MD Complaint: abdominal pain Onset/Timin -: days(s) Location: LLQ, RLQ Radiation: none Migration to: no migration Severity scale (1-10): 8 Quality: stabbing Consistency: constant Improves With: nothing Worsens With: nothing Associated Symptoms: nausea, vomiting, diarrhea Treatments Prior to Arrival: other (Lomotil, Bentyl, Tylenol) <Aubrey Givens - Last Filed: 12/16/24 13:26> - General Chief Complaint: Abdominal Pain Stated Complaint: ABD Pain Time Seen by Provider: 12/15/24 15:00 - History of Present Illness Initial Comments: Quick [id number] female presenting to the emergency department for complaint of abdominal pain over the past 3 days and associated nausea, vomiting, diarrhea. States that she does not take Lomotil today with no relief. Denies chest pain, difficulty breathing, bloody or dark or sticky stools. (Jessica Schulz) This is a 54-year-old female with history including ovarian cyst, renal calculi, hiatal hernia, PUD, pancreatitis, CVA, CVA and DM presenting with lower abdominal pain (8/10) x 3 days. Patient describes pain as constant and stabbing with associated N/V/D. Patient endorses concern for intussusception due to prior history. Endorses use of Lomotil, Bentyl and Tylenol without relief. Patient states she is also out of Zofran. Patient denies fever, chills, hematemesis, hematochezia, melena, urinary symptoms, vaginal bleeding/discharge. (Aubrey Givens) - Related Data Home Medications Medication Instructions Recorded Confirmed Cetirizine HCl [Zyrtec] 10 mg PO DAILY 06/13/18 12/15/24 Mirtazapine [Remeron] 15 mg PO HS 10/08/18 12/15/24 LORazepam [Ativan] 0.5 mg PO Q6H PRN 04/23/19 12/15/24 Propranolol HCl [Inderal Xl] 80 mg PO DAILY PRN 04/23/19 12/15/24 Gabapentin 300 mg PO TID 02/28/22 12/15/24 Furosemide [Lasix] 20 mg PO BID 02/16/23 12/15/24 Escitalopram [Lexapro] 20 mg PO DAILY 03/21/23 12/15/24 Insulin Glargine,Hum.rec.anlog 5 units SQ DAILY 11/17/23 12/15/24 [Lantus Solostar Pen] Tirzepatide [Mounjaro] 5 mg SQ WE 11/17/23 12/15/24 Docusate [Colace] 100 mg PO DAILY PRN 10/15/24 12/15/24 INSULIN ASPART (NovoLOG) [NovoLOG 5 unit SQ TID-W/MEALS 10/15/24 12/15/24 (formulary)] INSULIN ASPART (NovoLOG) [NovoLOG See Protocol SQ TID-W/MEALS PRN 10/15/24 12/15/24 (formulary)] Ibuprofen [Motrin] 600 mg PO Q6H PRN 10/15/24 12/15/24 Pioglitazone [Actos] 30 mg PO DAILY 10/15/24 12/15/24 Simvastatin [Zocor] 80 mg PO HS 10/15/24 12/15/24 buPROPion XL [Wellbutrin XL] 300 mg PO DAILY 10/15/24 12/15/24 metFORMIN HCL ER [Glucophage XR] 1,000 mg PO BID 10/15/24 12/15/24 Previous Rx's Medication Instructions Recorded Dicyclomine [Bentyl] 20 mg PO QID 30 Days #240 cap 12/05/23 Ondansetron Odt [Zofran Odt] 4 mg PO Q8HR PRN #10 tab 10/15/24 Ondansetron [Zofran] 4 mg PO Q8HR PRN #15 tab 12/15/24 Allergies Allergy/AdvReac Type Severity Reaction Status Date / Time oxycodone [From Percocet] Allergy Unknown Swelling; Verified 12/15/24 17:53 (WAS ABLE TO TAKE ALONG WITH BENADRYL) apricot Allergy Dyspnea Verified 12/15/24 17:53 barium sulfate Allergy Anaphylaxis Verified 12/15/24 17:53 [From Readi-Cat] codeine Allergy Anaphylaxis Verified 12/15/24 17:53 fentanyl Allergy Rash/Hives Verified 12/15/24 17:53 hydrocodone [From Lortab] Allergy Swelling Verified 12/15/24 17:53 Iodinated Contrast Media Allergy Anaphylaxis Verified 12/15/24 17:53 iodine Allergy Rash/Hives Verified 12/15/24 17:53 iron Allergy Swelling Verified 12/15/24 17:53 levofloxacin [From Levaquin] Allergy Swelling Verified 12/15/24 17:53 morphine Allergy Rash/Hives, Verified 12/15/24 17:53 Nausea/Vomiting peach Allergy Swelling Verified 12/15/24 17:53 peanut Allergy Swelling Verified 12/15/24 17:53 peanut oil Allergy Anaphylaxis Verified 12/15/24 17:53 shellfish derived [Shellfish] Allergy Anaphylaxis Verified 12/15/24 17:53 strawberry Allergy Anaphylaxis Verified 12/15/24 17:53 sucralfate [From Carafate] Allergy Swelling Verified 12/15/24 17:53 Sulfa (Sulfonamide Allergy Anaphylaxis Verified 12/15/24 17:53 Antibiotics) sulfamethoxazole Allergy Anaphylaxis Verified 12/15/24 17:53 [From Bactrim] tree nut [Nut] Allergy Swelling Verified 12/15/24 17:53 trimethoprim [From Bactrim] Allergy Anaphylaxis Verified 12/15/24 17:53 metronidazole [From Flagyl] AdvReac "made me Verified 12/15/24 17:53 hot" Review of Systems ROS Other: All systems not noted in ROS Statement are negative. <Jessica Schulz - Last Filed: 12/15/24 15:35> ROS Other: All systems not noted in ROS Statement are negative. <Aubrey Givens - Last Filed: 12/16/24 13:26> ROS Statement: Those systems with pertinent positive or pertinent negative responses have been documented in the HPI. Past Medical History Past Medical History: Asthma, Cancer, CVA/TIA, Diabetes Mellitus, Fibromyalgia, GERD/Reflux, Hyperlipidemia, Osteoarthritis (OA), Pneumonia Additional Past Medical History / Comment(s): Had Iron infusions in Apr 2019. Hx TIA 2016. Diabetic neuropathy eli feet, migraines, cervical disc disease, DDD, eli tinnitis, arthiritis bilateral shoulders, IBS, HX R arm fx yrs ago, R ovarian cyst, hiatal hernia, UTIs, urinary calculus, pancreatitis x 2, stomach ulcer. Hx cervical cancer. COVID 08/2020 History of Any Multi-Drug Resistant Organisms: C-DIFF Date of last positivie culture/infection: 2016 MDRO Source:: None Past Surgical History: Appendectomy, Bariatric Surgery, Cholecystectomy, Hysterectomy, Tonsillectomy Additional Past Surgical History / Comment(s): 2010 felix-en-Y, fistula repair 2011, 2011 gastric bypass revision, bowel resection, lap gastrojejunostomy anastamosis revision, EGD and colonoscopy, cone bx-cervical cancer removed with cryo, L fallopian tube removed due to cyst, picc line in and out, CERVICAL FUSION 12/21/16. Past Anesthesia/Blood Transfusion Reactions: Family History of Problems w/ Anesthesia, Motion Sickness, Postoperative Nausea & Vomiting (PONV) Additional Past Anesthesia/Blood Transfusion Reaction / Comment(s): Pt states she has never recieved blood. FAMILY HX PONV. Past Psychological History: Anxiety, Depression Smoking Status: Never smoker Past Alcohol Use History: None Reported Past Drug Use History: None Reported - Past Family History Brother(s) History Unknown: Yes Family Medical History: Deep Vein Thrombosis (DVT) Father Family Medical History: Cancer, Deep Vein Thrombosis (DVT), Pulmonary Embolus Additional Family Medical History / Comment(s): Father had poss colon and lung cancer and at age 73yrs. Mother History Unknown: Yes Family Medical History: Coronary Artery Disease (CAD), Diabetes Mellitus, Deep Vein Thrombosis (DVT), Hypertension, Pulmonary Embolus Additional Family Medical History / Comment(s): Mother is alive and 73 yrs old. <Jessica Schulz - Last Filed: 12/15/24 15:35> General Exam Limitations: no limitations <Jessica Schulz - Last Filed: 12/15/24 15:35> General appearance: alert, in no apparent distress Head exam: Present: atraumatic, normocephalic, normal inspection Eye exam: Present: normal appearance, PERRL, EOMI. Absent: scleral icterus, conjunctival injection, periorbital swelling ENT exam: Present: normal exam, mucous membranes moist Neck exam: Present: normal inspection. Absent: tenderness, meningismus, lymphadenopathy Respiratory exam: Present: normal lung sounds bilaterally. Absent: respiratory distress, wheezes, rales, rhonchi, stridor Cardiovascular Exam: Present: regular rate, normal rhythm, normal heart sounds. Absent: systolic murmur, diastolic murmur, rubs, gallop, clicks GI/Abdominal exam: Present: soft, tenderness (Positive diffuse lower abdominal and suprapubic tenderness as well as LUQ tenderness without guarding), normal bowel sounds. Absent: distended, guarding, rebound, rigid, pulsatile mass, hernia Extremities exam: Present: normal inspection, full ROM, normal capillary refill. Absent: tenderness, pedal edema, joint swelling, calf tenderness Back exam: Present: normal inspection Neurological exam: Present: alert, oriented X3, CN II-XII intact Psychiatric exam: Present: normal affect, normal mood Skin exam: Present: warm, dry, intact, normal color. Absent: rash <Aubrey Givens - Last Filed: 12/16/24 13:26> - General Exam Comments Initial Comments: Visual Physical Exam Vital signs reviewed General: Well-appearing, nontoxic, no acute distress. Head: Normocephalic, atraumatic Eyes: PERRLA, EOMI ENT: Airway patent Chest: Nonlabored breathing Skin: No visual rash, normal skin tone Neuro: Alert and oriented 3 Musculoskeletal: No gross abnormalities (Jessica Schulz) Course Vital Signs 12/15/24 12/15/24 14:56 18:42 Temperature 97.9 F Pulse Rate 109 H 84 Respiratory 18 16 Rate Blood Pressure 107/75 100/70 O2 Sat by Pulse 98 96 Oximetry Medical Decision Making <Jessica Schulz - Last Filed: 12/15/24 15:35> - Lab Data Result diagrams: 12/15/24 15:14 12/15/24 15:14 <Aubrey Givens - Last Filed: 12/16/24 13:26> - Medical Decision Making I completed the quick note portion of this chart signed Jessica Schulz PA-C (Jessica Schulz) Was pt. sent in by a medical professional or institution ([facility], SENIOR SCRUM MASTER, urgent care, hospital, or [facility]...) When possible be specific @ -No Did you speak to anyone other than the patient for history (EMS, parent, family, police, friend...)? What history was obtained from this source @ -No Did you review nursing and triage notes (agree or disagree)? Why? @ -I reviewed and agree with nursing and triage notes Were old charts reviewed (outside hosp., previous admission, EMS record, old EKG, old radiological studies, urgent care reports/EKG's, [facility] records)? Report findings @ -No old charts were reviewed Differential Diagnosis (chest pain, altered mental status, abdominal pain women, abdominal pain men, vaginal bleeding, weakness, fever, dyspnea, syncope, headache, dizziness, GI bleed, back pain, seizure, CVA, palpatations, mental health, musculoskeletal)? @ -Differential Abdominal Pain Women: Appendicitis, Cholecystitis, diverticulosis, ischemic bowel, pancreatitis, hepatitis, UTI, gastroenteritis, AAA, incarcerated hernia, bowel obstruction, constipation, inflammatory bowel, hepatitis, peptic ulcer disease, splenic infarction, perforated viscus, vulvitis, ovarian torsion, PID, kidney stone, placenta abruption, this is not meant to be an all-inclusive list EKG interpreted by me (3pts min.). @ -Not done X-rays interpreted by me (1pt min.). @ -None done CT interpreted by me (1pt min.). @ -Abdomen/pelvic CT shows no acute process. U/S interpreted by me (1pt. min.). @ -None done What testing was considered but not performed or refused? (CT, X-rays, U/S, labs)? Why? @ -None What meds were considered but not given or refused? Why? @ -None Did you discuss the management of the patient with other professionals (professionals i.e. , PA, SENIOR SCRUM MASTER, lab, RT, psych nurse, clinical social work therapist, residential pest control technician, teacher, asset protection officer, block and case maker)? Give summary @ -No Was smoking cessation discussed for >3mins.? @ -No Was critical care preformed (if so, how long)? @ -No Were there social determinants of health that impacted care today? How? (Homelessness, low income, unemployed, alcoholism, drug addiction, transportation, low edu. Level, literacy, decrease access to med. care, longterm, rehab)? @ -No Was there de-escalation of care discussed even if they declined (Discuss DNR or withdrawal of care, Hospice)? DNR status @ -No What co-morbidities impacted this encounter? (DM, HTN, Smoking, COPD, CAD, Cancer, CVA, ARF, Chemo, Hep., AIDS, mental health diagnosis, sleep apnea, morbid obesity)? @ -None Was patient admitted / discharged? Hospital course, mention meds given and route, prescriptions, significant lab abnormalities, going to OR and other pertinent info. @ -Lab work shows mild leukocytosis 10.82, iron deficient anemia with MCV 75.9. Hyperkalemia 5.3, anion gap 15, hyperglycemia 174 and mildly elevated LFTs. UA unremarkable. Abdomen/pelvic CT shows no acute process. Patient initially provided IV normal saline, Zofran and p.o. Lokelma. Due to ongoing pain patient provided IV Dilaudid with relief noted by patient patient discharged with Lomotil starter pack and Zofran sent to patient's pharmacy. Advised increase intake of bananas, rice, applesauce, tea, toast. Rebekah tea/for nausea. Increase oral rehydration with water and Gatorade/Pedialyte. Advised follow-up with PCP/gastroenterology for any ongoing or worsening symptoms. Discussed patient with Dr. Acosta. Undiagnosed new problem with uncertain prognosis? @ -No Drug Therapy requiring intensive monitoring for toxicity (Heparin, Nitro, Insulin, Cardizem)? @ -No Were any procedures done? @ -No Diagnosis/symptom? @ -Gastroenteritis Acute, or Chronic, or Acute on Chronic? @ -Acute Uncomplicated (without systemic symptoms) or Complicated (systemic symptoms)? @ -Complicated Side effects of treatment? @ -No Exacerbation, Progression, or Severe Exacerbation? @ -No Poses a threat to life or bodily function? How? (Chest pain, USA, VT, pneumonia, PE, COPD, DKA, ARF, appy, cholecystitis, CVA, Diverticulitis, Homicidal, Suicidal, threat to staff... and all critical care pts) @ -No (Aubrey Givens) - Lab Data Lab Results 12/15/24 12/15/24 12/15/24 Range/Units 15:01 15:14 15:14 WBC 10.82 H (4.50-10.00) 10*3/uL RBC 5.51 H (4.10-5.20) 10*6/uL Hgb 13.1 (12.0-15.0) g/dL Hct 41.8 (37.2-46.3) % MCV 75.9 L (80.0-97.0) fL MCH 23.8 L (27.0-32.0) pg MCHC 31.3 L (32.0-37.0) g/dL Plt Count 380 (140-440) 10*3/uL MPV 10.9 (9.5-12.2) fL Immature Gran % (Auto) 0.3 % Neutrophils % 53.4 % Lymphocytes % 36.3 % Monocytes % 7.4 % Eosinophils % 1.8 % Basophils % 0.8 % Immature Gran # 0.03 (0.00-0.04) 10*3/uL Neutrophils # 5.77 (1.80-7.70) 10*3/uL Lymphocytes # 3.93 (0.90-5.00) 10*3/uL Monocytes # 0.80 (0.20-1.00) 10*3/uL Eosinophils # 0.20 (0.04-0.35) 10*3/uL Basophils # 0.09 (0.00-0.10) 10*3/uL Sodium 137 (137-145) mmol/L Potassium 5.3 H (3.5-5.1) mmol/L Chloride 101 (98-107) mmol/L Carbon Dioxide 21 L (22-30) mmol/L Anion Gap 15 mmol/L BUN 15 (7-17) mg/dL Creatinine 0.75 (0.52-1.04) mg/dL Est GFR (CKD-EPI)AfAm >90 (>60 ml/min/1.73 sqM) Est GFR (CKD-EPI)NonAf >90 (>60 ml/min/1.73 sqM) Glucose 174 H (74-99) mg/dL Calcium 9.7 (8.4-10.2) mg/dL Total Bilirubin 1.6 H (0.2-1.3) mg/dL AST 81 H (14-36) U/L ALT 43 H (4-34) U/L Alkaline Phosphatase 118 (38-126) U/L Total Protein 9.4 H (6.3-8.2) g/dL Albumin 5.4 H (3.5-5.0) g/dL Amylase 47 (30-110) U/L Lipase 82 (23-300) U/L Urine Color Colorless Urine Appearance Clear (Clear) Urine pH 5.0 (5.0-8.0) Ur Specific [place] 1.005 (1.001-1.035) Urine Protein Negative (Negative) Urine Glucose (UA) Negative (Negative) Urine Ketones Negative (Negative) Urine Blood Negative (Negative) Urine Nitrite Negative (Negative) Urine Bilirubin Negative (Negative) Urine Urobilinogen <2.0 (<2.0) mg/dL Ur Leukocyte Esterase Negative (Negative) Disposition <Jessica Schulz - Last Filed: 12/15/24 15:35> Is patient prescribed a controlled substance at d/c from ED?: No Time of Disposition: 17:41 <Aubrey Givens - Last Filed: 12/16/24 13:26> Clinical Impression: Gastroenteritis Disposition: HOME SELF-CARE Condition: Good Instructions (If sedation given, give patient instructions): Abdominal Pain (ED) Additional Instructions: Follow-up with primary care in the next 24 to 48 hours for any ongoing or worsening abdominal pain. Prescriptions: Ondansetron [Zofran] 4 mg PO Q8HR PRN #15 tab PRN Reason: Nausea Referrals: Macy Knight MD [Primary Care Provider] - 1-2 days
[2024-12-15 15:49] LABS: ALT 43 U/L (4-34); African American GFR (CKD) >90 (>60 ml/min/1.73 sqM); Amylase 47 U/L (30-110); Anion Gap 15 mmol/L; Blood Urea Nitrogen 15 mg/dL (7-17); Calcium 9.7 mg/dL (8.4-10.2); Carbon Dioxide 21 mmol/L (22-30); Chloride 101 mmol/L (98-107); Lipase 82 U/L (23-300); Non-African American GFR(CKD) >90 (>60 ml/min/1.73 sqM); Sodium 137 mmol/L (137-145); Total Bilirubin 1.6 mg/dL (0.2-1.3)
[2024-12-15 15:54] LABS: AST 81 U/L (14-36); Albumin 5.4 g/dL (3.5-5.0); Alkaline Phosphatase 118 U/L (38-126); Glucose 174 mg/dL (74-99); Potassium 5.3 mmol/L (3.5-5.1); Total Protein 9.4 g/dL (6.3-8.2)
[2024-12-15 16:12] LABS: Basophils # (A) 0.09 10*3/uL (0.00-0.10); Basophils % (A) 0.8 %; Eosinophils % (A) 1.8 %; HCT 41.8 % (37.2-46.3); HGB 13.1 g/dL (12.0-15.0); Lymphocytes # (A) 3.93 10*3/uL (0.90-5.00); Lymphocytes % (A) 36.3 %; MCH 23.8 pg (27.0-32.0); MCHC 31.3 g/dL (32.0-37.0); MCV 75.9 fL (80.0-97.0); Mean Platelet Volume 10.9 fL (9.5-12.2); Monocytes % (A) 7.4 %; Neutrophils # (A) 5.77 10*3/uL (1.80-7.70); Neutrophils % (A) 53.4 %; Platelet Count 380 10*3/uL (140-440); RBC 5.51 10*6/uL (4.10-5.20); RDW 14.6 % (11.5-14.5); WBC 10.82 10*3/uL (4.50-10.00)
--- NOTE | 2024-12-15 16:37 | CT ---
EXAMINATION TYPE: CT abdomen pelvis wo con CT DLP: 624.4 mGycm, Automated exposure control for dose reduction was used. DATE OF EXAM: 12/15/2024 4:24 PM COMPARISON: Multiple CT abdomen pelvis with most recent from 11/11/2024 CLINICAL INDICATION:Female, 54 years old with history of ab pain, N/V/D; Lower abd pain, history of i leus, nausea, vomiting and diarrhea TECHNIQUE: Standard CT of the abdomen and pelvis without IV or oral contrast. Lack of IV or oral co ntrast limits evaluation of solid and hollow organ viscera. Coronal and sagittal reformats were perfo rmed. FINDINGS: LOWER CHEST: Pleural-based 5.5 mm right lower lobe pulmonary nodule. Stability from multiple exams de monstrated and considered benign. No follow-up recommended. ABDOMEN LIVER: Unremarkable GALLBLADDER AND BILE DUCTS: Gallbladder is surgically absent with similar mild extra hepatic biliary dilatation likely physiologic and a postcholecystectomy change. No evidence of choledocholithiasis. PANCREAS: Unremarkable. SPLEEN: Unremarkable. ADRENAL GLANDS: Unremarkable. KIDNEYS AND URETERS: No evidence of hydronephrosis or renal calculus. PELVIS BLADDER: Underdistended, limiting evaluation. REPRODUCTIVE: The uterus is surgically absent. ABDOMEN & PELVIS STOMACH AND BOWEL: Postsurgical changes from gastric bypass procedure redemonstrated. Remnant 2distal bypassed stomach is poorly distended and suboptimally visualized. This is similar to prior exam. The appendix is surgically absent. No focal bowel wall thickening or surrounding inflammatory changes. N o evidence of bowel obstruction. PERITONEUM: No evidence of pneumoperitoneum or free fluid. VASCULATURE: No evidence of aortic aneurysm. Few pelvic phleboliths. MUSCULOSKELETAL: No acute osseous abnormalities LYMPH NODES: No evidence for lymphadenopathy. SOFT TISSUE/ABDOMINAL WALL: Unremarkable IMPRESSION: 1. No CT evidence for acute abdominal/pelvic process within limitations of a noncontrast exam. 2. Similar postsurgical changes from gastric bypass. [facility], , 12/15/2024 4:35 PM
[2024-12-15] MEDS: ONDANSETRON 4 MG/2 ML VIAL IVP STA (17:04)
[2024-12-15] MEDS: SODIUM ZIRCONIUM CYCLOSILICATE 10 GM PACKET PO ONE (17:04)
[2024-12-15] MEDS: SODIUM CHLORIDE 0.9% 1,000 ML IV STA (17:04)
[2024-12-15] MEDS: HYDROmorphone 2 MG/ML 1 ML SYRINGE IVP STA (18:13)
[2024-12-15] MEDS: DIPHENOX-ATROP STARTER PACK 8 TAB BTL PO STA (18:35)
[2024-12-15 18:43] VITALS: BP 100/70; PULSE 84; RESP 16
== END 2024-12-15 18:43 | disposition home or self-care (01) ==
LOC: EC 14:44
DX: K52.9 Noninfective gastroenteritis and colitis, unspecified (principal); Z88.1 Allergy status to other antibiotic agents; Z88.2 Allergy status to sulfonamides; Z88.5 Allergy status to narcotic agent; Z91.02 Food additives allergy status; Z91.010 Allergy to peanuts; Z91.018 Allergy to other foods; Z91.041 Radiographic dye allergy status; Z88.8 Allergy status to other drugs, medicaments and biological substances
CPT/HCPCS: 36415; 80053; 82150; 83690; 85025; 81003; 74176; 99284; 96374; 96375; 96361; J1171; J2405

== ENCOUNTER → 2025-03-09 | Outpatient (CLI) | payer OTHER ==
[2025-03-09 19:50] LABS: ALT 38 U/L (8-44); AST 40 U/L (13-35); Albumin 4.3 g/dL (3.8-4.9); Albumin/Globulin Ratio 1.48 Ratio (1.60-3.17); Alkaline Phosphatase 112 U/L (41-126); Anion Gap 12.20 mmol/L (4.00-12.00); BUN/Creat Ratio 19.71 Ratio (12.00-20.00); Blood Urea Nitrogen 13.8 mg/dL (9.0-27.0); Calcium 9.3 mg/dL (8.7-10.3); Carbon Dioxide 24.8 mmol/L (21.6-31.8); Chloride 102 mmol/L (96-109); Cholesterol 191.00 mg/dL (0.00-200.00); Globulin 2.9 g/dL (1.6-3.3); Glucose 130 mg/dL (70-110); HDL Cholesterol 69.30 mg/dL (40.00-60.00); LDL Cholesterol,Calculated 105.0 mg/dL (0.0-131.0); Potassium 4.3 mmol/L (3.5-5.5); Sodium 139 mmol/L (135-145); Total Protein 7.2 g/dL (6.2-8.2); Triglycerides 83.50 mg/dL (0.00-149.00); VLDL Calculation 16.70 mg/dL (5.00-40.00)
== END | disposition home or self-care (01) ==
LOC: LABWHC1 13:38
PROVIDERS: ATTEND Nurse Practitioner Gerontology
DX: E11.65 Type 2 diabetes mellitus with hyperglycemia (principal)
CPT/HCPCS: 36415; 80053; 80061; 82043; 82570; 83036